=== PATIENT | female | born 1980 | race Caucasian/White ===

== ENCOUNTER 2022-02-06 14:56 | Outpatient (CLI) | payer OTHER, SELFPAY | END 2022-02-06 14:57 | disposition home or self-care (01) | LOC: LONREF 14:57 | PROVIDERS: Visit Provider Family Medicine | DX: R30.0 Dysuria (principal) | CPT/HCPCS: 87086 ==

== ENCOUNTER 2022-05-08 14:33 | Emergency (ER) | payer OTHER, SELFPAY ==
[2022-05-08 14:52] VITALS: BP 150/93; PULSE 82; RESP 16; TEMP 36.6; O2SAT 98; BMI 36.3
--- NOTE | 2022-05-08 15:36 | ED.CHESTPAIN ---
HPI - Chest Pain General Chief Complaint: Chest Pain Stated Complaint: Chest pain Time Seen by Provider: 05/08/22 14:49 History of Present Illness HPI narrative: This 41-year-old female comes in reporting brief intermittent chest discomfort in the right upper anterior chest since last night. She states the pain comes and lasts for few seconds then completely goes away. She does have history of fibromyalgia. She also reports anxiety symptoms. She denies having any nausea, vomiting, lightheadedness, shortness of breath, diaphoresis, or exercise intolerance. Related Data Home Medications Medication Instructions Recorded Confirmed gabapentin 300 mg capsule 300 mg PO TID 12/23/21 04/19/22 omeprazole 10 mg capsule,delayed 10 mg PO BID 12/23/21 04/19/22 release spironolactone 50 mg tablet 50 mg PO QDAY 12/23/21 04/19/22 Previous Rx's Medication Instructions Recorded tramadol 50 mg tablet See Rx Instructions PO Q6H PRN 03/18/22 pain #42 tabs hydroxyzine HCl 25 mg tablet See Rx Instructions .Route 03/25/22 .COMPLEX #60 ea cyclobenzaprine 10 mg tablet 10 mg PO TID PRN muscle spasm #10 04/19/22 tabs Allergies Allergy/AdvReac Type Severity Reaction Status Date / Time No Known Drug Allergies Allergy Verified 04/19/22 12:15 Review of Systems Status of ROS Reports: 10 or more systems reviewed and unremarkable except as noted in History and below Narrative Constitutional: No fevers, no weight gain or loss. Eyes: No discharge. No vision changes. HENT: No congestion, no sore throat, no ear pain. Cardiovascular: No palpitations. Chest: Right upper anterior chest discomfort that lasts just for a few seconds. Respiratory: No shortness of breath, no wheezes, no cough. Gastrointestinal: No abdominal pain, no vomiting, no diarrhea. Genitourinary: No dysuria, no hematuria. Musculoskeletal: Normal range of motion. Skin: No rashes, no pruritis. Neurological: No dizziness, weakness, sensory change, speech change. Endo/Heme/Allergies: No bruising or bleeding. No polydipsia. Pysch: no suicidality, no anxiety, no insomnia. All other systems reviewed and are negative. PFSH PFSH Surgical History Status post Status post tubal ligation Social History Smoking Status: Never smoker Exam Narrative Exam Narrative: Constitutional: Well-developed, well-nourished, no acute distress. HEENT: Normocephalic, atraumatic. Neck: Normal range of motion. Nontender. Supple. Heart: Regular. No murmurs. Normal rate. Intact distal pulses. Lungs: Clear to auscultation. No chest discomfort. No wheezes, rhonchi, or rales. Abdomen: Normal bowel sounds. Nontender. No rebound tenderness. Genitalia: Deferred. Back: No midline tenderness. Normal range of motion. Extremities: Normal range of motion. No injury. Skin: Intact. No rash. Warm. No erythema or pallor. Neurologic: No altered sensation. No weakness. Alert and oriented. Psychiatric: No suicidality. No anxiety or depression. No insomnia. Nursing notes and vitals signs are reviewed. Const Vital Signs, click to edit/add: Vital Signs - 24 hr 05/08/22 14:52 Temperature 97.9 F Pulse Rate [Right Pulse Oximeter] 82 Respiratory Rate 16 Blood Pressure [Right Upper Arm] 150/93 H Pulse Oximetry 98 Oxygen Delivery Method Room Air Course Vital Signs Vital signs: Initial Vital Signs Temperature 97.9 F 05/08/22 14:52 Temperature Source Temporal Artery Scan 05/08/22 14:52 Pulse Rate 82 05/08/22 14:52 Pulse Rhythm 05/08/22 14:52 Respiratory Rate 16 05/08/22 14:52 Blood Pressure 150/93 H 05/08/22 14:52 Blood Pressure Mean 112 05/08/22 14:52 Pulse Oximetry 98 05/08/22 14:52 Oxygen Delivery Method 05/08/22 14:52 Vital Signs Temperature 97.9 F 05/08/22 14:52 Pulse Rate 82 05/08/22 14:52 Respiratory Rate 16 05/08/22 14:52 Blood Pressure 150/93 H 05/08/22 14:52 Pulse Oximetry 98 05/08/22 14:52 Oxygen Delivery Method 05/08/22 14:52 Temperature 97.9 F 05/08/22 14:52 Pulse Rate 82 05/08/22 14:52 Respiratory Rate 16 05/08/22 14:52 Blood Pressure 150/93 H 05/08/22 14:52 Pulse Oximetry 98 05/08/22 14:52 Oxygen Delivery Method 05/08/22 14:52 MDM - Chest Pain MDM Narrative Medical decision making narrative: This patient comes in with concern about some very brief chest discomfort in the right upper chest that is recurrent. She states that lasts for a few seconds and then completely goes away. It is not related to exertion or any other symptoms. Her EKG shows normal sinus rhythm without any abnormality. Lab results also returned completely normal including a troponin at 0. This was reassuring to the patient. She is okay to be discharged home to continue current plans. Lab Data Labs: Lab Results 05/08/22 05/08/22 Range/Units 15:50 15:50 WBC 8.73 (4.50-11.00) K/uL RBC 4.89 (4.00-5.20) m/uL Hgb 13.8 (12.0-16.0) gm/dL Hct 42.3 (33.0-51.0) % MCV 87 (80-100) fL MCH 28 (26-34) pg MCHC 33 (32-36) gm/dL RDW Coeff of Shahram 12.6 (11.5-15.5) % Plt Count 352 (140-440) K/uL Neut % (Auto) 66.9 (42.0-72.0) % Lymph % (Auto) 25.9 (20-44) % [place] % (Auto) 5.2 (0.0-11.0) % Eos % (Auto) 1.5 (0.0-7.0) % Baso % (Auto) 0.3 (0.0-3.0) % Neut # (Auto) 5.84 (1.7-7.0) K/uL Lymph # (Auto) 2.26 (0.90-2.90) K/uL [place] # (Auto) 0.50 (0.00-0.90) K/UL Eos # (Auto) 0.13 (0.00-0.50) K/uL Baso # (Auto) 0.03 (0.00-0.30) K/uL Sodium 139 (135-149) mmol/L Potassium 4.3 (3.6-5.1) mmol/L Chloride 106 (96-114) mmol/L Carbon Dioxide 27 (20-32) mmol/L BUN 15 (5-24) mg/dL Creatinine 0.9 (0.5-1.5) mg/dL Estimated Creat Clear 77.79 Estimated GFR 83 ml/min Glucose 97 (60-115) mg/dL Calcium 9.5 (8.4-10.6) mg/dL ECG Data Attestation: I personally reviewed and interpreted this ECG as follows: Interpretation: Normal sinus rhythm. Rate is 89 beats per minute. There are no ST or T-wave abnormalities. Discharge Plan Discharge Clinical Impression: Atypical chest pain Patient Disposition: Home, Self-Care Condition: Stable Additional Instructions: Continue current plans. Use [id number] medicines as needed and directed. Follow up with MD or return if worsening. Prescriptions: No Action gabapentin 300 mg capsule 300 mg PO TID omeprazole 10 mg capsule,delayed release(DR/EC) 10 mg PO BID spironolactone 50 mg tablet 50 mg PO QDAY tramadol 50 mg tablet See Rx Instructions PO Q6H PRN (Reason: pain) Qty: 42 1RF Rx Instructions: 50-100 mg orally every 6 hours PRN; cyclobenzaprine 10 mg tablet 10 mg PO TID PRN (Reason: muscle spasm) Qty: 10 0RF hydroxyzine HCl 25 mg tablet See Rx Instructions .ROUTE .COMPLEX Qty: 60 3RF Dose Instruction: TAKE 1 TABLET (25 MG TOTAL) BY MOUTH 2 (TWO) TIMES A DAY NEEDED FOR ANXIETY. Rx Instructions: TAKE 1 TABLET (25 MG TOTAL) BY MOUTH 2 (TWO) TIMES A DAY NEEDED FOR ANXIETY. Follow Up/Referrals: Lakhwinder Lau MD [Primary Care Provider] - Stand Alone Forms: [facility] [facility] Info Instructions
[2022-05-08 15:51] VITALS: BP 142/74; PULSE 79; RESP 16; O2SAT 98
--- NOTE | 2022-05-08 16:03 | ED.NURSE ---
at bedside for U/S.
[2022-05-08 16:07] LABS: Basophils Absolute Auto 0.03 K/uL (0.00-0.30); Basophils Percent Auto 0.3 % (0.0-3.0); Eosinophils Absolute Auto 0.13 K/uL (0.00-0.50); Eosinophils Percent Auto 1.5 % (0.0-7.0); Hematocrit 42.3 % (33.0-51.0); Hemoglobin* 13.8 gm/dL (12.0-16.0); Immature Granulocytes Abs Auto 0.02 K/uL (0.00-0.30); Immature Granulocytes Pct Auto 0.2 %; Lymphocytes Absolute Auto 2.26 K/uL (0.90-2.90); Lymphocytes Percent Auto 25.9 % (20-44); Mean Corpuscular HGB Conc 33 gm/dL (32-36); Mean Corpuscular Hemoglobin 28 pg (26-34); Mean Corpuscular Volume 87 fL (80-100); Monocytes Percent Auto 5.2 % (0.0-11.0); Neutrophils Absolute Auto 5.84 K/uL (1.7-7.0); Neutrophils Percent Auto 66.9 % (42.0-72.0); Platelet Count* 352 K/uL (140-440); RDW Coefficient of Variation % 12.6 % (11.5-15.5); Red Blood Count 4.89 m/uL (4.00-5.20); White Blood Count* 8.73 K/uL (4.50-11.00)
[2022-05-08 16:16] LABS: Chloride* 106 mmol/L (96-114); Sodium* 139 mmol/L (135-149)
[2022-05-08 16:17] LABS: Potassium* 4.3 mmol/L (3.6-5.1); Slide Review Reflex No
[2022-05-08 16:19] LABS: Creatinine* 0.9 mg/dL (0.5-1.5); Est. Creatinine Clearance* 77.79; Estimated Glomerular Filt Rate 83 ml/min
[2022-05-08 16:20] LABS: Blood Urea Nitrogen* 15 mg/dL (5-24); Calcium* 9.5 mg/dL (8.4-10.6); Carbon Dioxide* 27 mmol/L (20-32); Glucose* 97 mg/dL (60-115)
[2022-05-08 16:38] VITALS: BP 142/74; PULSE 79; RESP 16; TEMP 36.6
== END 2022-05-08 16:36 | disposition home or self-care (01) ==
PROVIDERS: Emergency Provider Emergency Medicine Emergency Medical Services; PCP Family Medicine
DX: R07.89 Other chest pain (principal)
CPT/HCPCS: 36415; 80048; 84484; 85025; 93005; 99284

== ENCOUNTER 2022-08-20 12:36 | Outpatient (CLI) | payer OTHER, SELFPAY | END 2022-08-20 12:37 | disposition home or self-care (01) | LOC: NFLDREF 08-23 09:48 | PROVIDERS: PCP Family Medicine; Referring Provider Family Medicine; Visit Provider Physician Assistant | DX: R30.0 Dysuria (principal); R39.15 Urgency of urination | CPT/HCPCS: 87086 ==

== ENCOUNTER 2022-08-25 12:26 | Outpatient (CLI) | payer OTHER, SELFPAY | END 2022-08-25 12:27 | disposition home or self-care (01) | LOC: LKVREF 12:28 | PROVIDERS: PCP Family Medicine; Visit Provider Emergency Medicine | DX: R10.9 Unspecified abdominal pain (principal) | CPT/HCPCS: 86140 ==

== ENCOUNTER 2022-08-28 10:47 | Outpatient (CLI) | payer OTHER, SELFPAY ==
--- NOTE | 2022-08-28 11:00 | CRLHL7_ITS ---
For Patients: As a result of the Cures Act, medical imaging exams and procedure reports are released immediately into your electronic medical record. You may view this report before your referring provider. If you have questions, please contact your health care provider. INDICATION: Abdominal pain. TECHNIQUE: Right upper quadrant ultrasound. COMPARISON: Outside MRI abdomen report January 09, 2022 from [place], [place] and a CT chest from that same institution March 17, 2022 which included the upper abdomen. FINDINGS: Echogenic mass in the right hepatic lobe measuring 6.0 x 4.6 x 4.7 cm compatible with a cavernous hemangioma. Multiple hepatic lesions were reportedly identified on the outside MRI report consistent with benign hemangiomas. Those are not well seen on today`s ultrasound. No intrahepatic biliary ductal dilatation. Normal gallbladder without stones or sludge. The gallbladder wall measures 2 mm and the common bile duct 6 mm. The pancreas is unremarkable. Normal right kidney measuring 11.6 x 3.1 x 4.8 cm. The proximal abdominal aorta is normal at 2 cm. The proximal IVC is also normal. No upper abdominal ascites. IMPRESSION: 1. Right hepatic lobe cavernous hemangioma. 2. No gallstones or biliary dilatation. 3. No ultrasound evidence for pancreatitis. No upper abdominal ascites. Dictated by Duarte Bradley MD @ 08/28/2022 11:52:38 AM (Electronically Signed)
== END 2022-08-28 10:48 | disposition home or self-care (01) ==
LOC: US 10:47
PROVIDERS: PCP Family Medicine; Visit Provider Emergency Medicine
DX: R10.9 Unspecified abdominal pain (principal); D18.09 Hemangioma of other sites
CPT/HCPCS: 76705

== ENCOUNTER 2022-09-02 16:49 | Outpatient (CLI) | payer OTHER, SELFPAY | END 2022-09-02 16:50 | disposition home or self-care (01) | LOC: LKVREF 16:49 | PROVIDERS: PCP Family Medicine; Visit Provider Emergency Medicine | DX: K59.00 Constipation, unspecified (principal) | CPT/HCPCS: 84443 ==

== ENCOUNTER 2022-09-09 14:42 | Outpatient (CLI) | payer OTHER, SELFPAY ==
--- NOTE | 2022-09-09 15:00 | CRLHL7_ITS ---
For Patients: As a result of the Century Cures Act, medical imaging exams and procedure reports are released immediately into your electronic medical record. You may view this report before your referring provider. If you have questions, please contact your health care provider. CLINICAL HISTORY: Pain TECHNIQUE: 2D mcgee scale ultrasound. In addition color Doppler and spectral Doppler analysis was performed of the pelvis using a transvaginal approach. FINDINGS: The myometrium has a normal uniform echotexture. The uterus measures 9.2 x 4.3 x 6.0 cm. The endometrial lining measures 10 mm in thickness. The right ovary measures 2.8 x 1.9 x 2.6 cm in size and the left ovary measures 2.8 x 2.6 x 2.1 cm. The ovaries demonstrate normal arterial and venous blood flow on color Doppler and spectral Doppler analysis. There are no suspicious fluid collections within the cul-de-sac. IMPRESSION: Normal pelvic ultrasound. No evidence of torsion or adnexal mass. No excess pelvic free fluid. No uterine fibroid. Dictated by Paul Locke MD @ 09/09/2022 3:27:12 PM (Electronically Signed)
== END 2022-09-09 14:43 | disposition home or self-care (01) ==
LOC: US 14:42
PROVIDERS: PCP Family Medicine; Visit Provider Emergency Medicine
DX: R10.2 Pelvic and perineal pain (principal)
CPT/HCPCS: 76830; 76856; 93976

== ENCOUNTER 2022-09-11 08:09 | Outpatient (CLI) | payer OTHER, SELFPAY | END 2022-09-11 08:10 | disposition home or self-care (01) | LOC: OP CLINIC 08:10 | PROVIDERS: PCP Family Medicine; Visit Provider Internal Medicine | DX: Z12.11 Encounter for screening for malignant neoplasm of colon (principal); K63.5 Polyp of colon | CPT/HCPCS: 45380; 45385; 88305 ==

== ENCOUNTER 2022-11-30 08:21 | Emergency (ER) | payer OTHER, SELFPAY ==
[2022-11-30] VITALS (8 sets, daily range): BP systolic 119–154; BP diastolic 84–99; PULSE 81–98; RESP 22; TEMP 38.1; O2SAT 93–99; BMI 35.7
--- NOTE | 2022-11-30 08:34 | ED_ITS ---
HPI - General Adult General Time Seen by Provider: 08:34 Date Seen: 11/30/22 Chief complaint: Shortness of Breath/Dyspnea Stated complaint: Difficulty breathing/vomitting/chest pain Time Seen by Provider: 11/30/22 08:28 History of Present Illness HPI narrative: This is a 42-year-old female with a past medical history including fibromyalgia, polycystic ovarian syndrome, anxiety, liver hemangioma, hiatal hernia, previous tubal ligation, section. She presents to the ER today for left lower lateral rib pain, shortness of breath, headache, nausea and vomiting. She had been seen in August 2022 for abdominal pain. At that time she had negative CT scan, normal pelvic ultrasound, no clear diagnosis was reached. According to records she was seen in the clinic on 11/11 for abdominal pain. According to those notes they were suspicious that her pain could be possibly gastritis or GERD. She has a known history of hiatal hernia. She was on a PPI and was changed from omeprazole to Nexium at that visit. EGD was recommended but the patient was reluctant to proceed due to anxiety about the sedation. She was also treated for constipation with no come magnesia, Glycolax. It sounds like her abdominal pain has been steady over the past few weeks. She had a root canal done on 1 of her upper front teeth couple of weeks ago. She has been having pain in that area since last week. She saw her and the daughter stand they thought the site looked good. She then went to the urgent care last week and was put on Augmentin it with the thought that she might be having a sinus infection. It sounds like she was reasonably normal over the weekend although her teeth were hurting. She felt a little bit run down yesterday. She was awoken from sleep at around 4:00 a.m. in this morning with multiple symptoms including body aches, in particular pain in her left anterolateral lower rib cage, headache. She feels achy all over. She is not running a fever. She measured her temperature a couple of times to the home thermometer and maximum measured temperature was 97.5?. She feels chilled though. She has been nauseous but no vomiting. She had 1 loose, nonbloody, non black stool. She is not really having abdominal pain. Most of her pain is in her left ribs, her teeth and throughout her body. She is tearful and anxious. She was nauseous and had to have a bag with her in case she threw up in the car ride here. Related Data Home Medications Medication Instructions Recorded Confirmed spironolactone 50 mg tablet 50 mg PO QDAY 12/23/21 11/26/22 lorazepam 1 mg tablet mg PO 08/20/22 11/26/22 B[place] PO QDAY 11/11/22 11/26/22 Clinical Immunity PO 11/11/22 11/26/22 cetirizine 10 mg tablet 10 mg PO QDAY PRN 11/11/22 11/26/22 lactobacillus combination no.4 3 3,000 mmu cells PO QDAY 11/11/22 11/26/22 billion cell capsule (Probiotic) magnesium glycinate mg PO 11/11/22 11/26/22 psyllium husk 0.4 gram capsule 0.4 g PO QDAY 11/11/22 11/26/22 (Metamucil) turmeric root extract 500 mg 500 mg PO QDAY 11/11/22 11/26/22 capsule Previous Rx's Medication Instructions Recorded alprazolam 0.5 mg tablet 0.5 mg PO BID PRN anxiety #20 tabs 07/07/22 gabapentin 300 mg capsule 300 mg PO 3XD #90 ea 07/30/22 hydroxyzine HCl 25 mg tablet See Rx Instructions .Route 10/28/22 .COMPLEX #60 ea amoxicillin 875 mg-potassium 1 tab PO BID 10 days #20 tabs 11/26/22 clavulanate 125 mg tablet hydrocodone 5 mg-acetaminophen 325 1 - 2 tab PO Q6H PRN pain #10 tabs 11/30/22 mg tablet Allergies Allergy/AdvReac Type Severity Reaction Status Date / Time No Known Drug Allergies Allergy Verified 11/26/22 13:24 PFSH PFSH Surgical History Status post tubal ligation ?Z98.51 - Tubal ligation status (ICD-10) Status post ?Z98.891 - History of uterine scar from previous surgery (ICD-10) Family History Sister Gallbladder disease Social History Smoking Status: Never smoker How often do you have a drink containing alcohol: never AUDIT-C Alcohol total score: 0 Non-prescribed substance use: denies use Exam Narrative: Exam Narrative: Constitutional: Appears well-developed and well-nourished. Alert. Tearful anxious. Hyperventilating. Whimpering due to pain. HENT: Head: Atraumatic. Nose: Nose normal. Mouth/Throat: Oral mucosa is clear and moist. no trismus. Pharynx normal. Tonsils symmetric. No tonsillar enlargement, erythema, or exudate. No obvious swelling of her upper teeth. No clear signs of dental infection. Eyes: Conjunctivae normal. EOM normal. Pupils equal, round, and reactive to light. No scleral icterus. Neck: Normal range of motion. Neck supple. No tracheal deviation present. No JVD Cardiovascular: Normal rate, regular rhythm. No gallop. No friction rub. No murmur heard. Symmetric radial artery pulses Pulmonary/Chest: Effort normal. No stridor. No respiratory distress. No wheezes. No rales. No rhonchi . No rib tenderness. Abdominal: Soft. Bowel sounds normal. No distension. No mass. Minimal epigastric tenderness. No left upper quadrant or left CVA tenderness. No right upper quadrant tenderness No rebound. No guarding. Musculoskeletal: RUE: Normal range of motion. No tenderness. No deformity LUE: Normal range of motion. No tenderness. No deformity RLE: Normal range of motion. No edema. No tenderness. No deformity LLE: Normal range of motion. No edema. No tenderness. No deformity Lymph: No cervical adenopathy. Neurological: Alert and oriented to person, place, and time. Normal strength. CN II-VII intact. No sensory deficit. GCS eye subscore is 4. GCS verbal subscore is 5. GCS motor subscore is 6. Normal coordination Skin: Skin is warm and dry. No rash noted. No pallor. Normal capillary refill. Psychiatric: Normal mood. Tearful and anxious. Appears uncomfortable. Whimpering due to pain. Const: Vital Signs, click to edit/add: Vital Signs - 24 hr 11/30/22 08:33 11/30/22 09:53 11/30/22 10:00 Temperature 100.5 F H Pulse Rate 81 95 Pulse Rate [Pulse Oximeter] 98 Respiratory Rate 22 Blood Pressure Blood Pressure [Ri ght Upper Arm] 154/99 H Pulse Oximetry 98 93 98 Oxygen Delivery Me thod Room Air Nasal Cannula Oxygen Flow Rate 2 11/30/22 10:00 11/30/22 10:01 11/30/22 10:02 Temperature Pulse Rate 96 Pulse Rate [Pulse Oximeter] Respiratory Rate Blood Pressure 119/93 H Blood Pressure [Ri ght Upper Arm] Pulse Oximetry 97 98 Oxygen Delivery Me thod Nasal Cannula Nasal Cannula Oxygen Flow Rate 2 2 11/30/22 10:03 11/30/22 10:15 11/30/22 10:30 Temperature Pulse Rate 95 92 91 Pulse Rate [Pulse Oximeter] Respiratory Rate Blood Pressure Blood Pressure [Ri ght Upper Arm] Pulse Oximetry 98 99 99 Oxygen Delivery Me thod Oxygen Flow Rate 11/30/22 10:32 Temperature Pulse Rate 96 Pulse Rate [Pulse Oximeter] Respiratory Rate Blood Pressure 128/84 Blood Pressure [Ri ght Upper Arm] Pulse Oximetry 98 Oxygen Delivery Me thod Oxygen Flow Rate Course Vital Signs Vital signs: Initial Vital Signs Temperature 100.5 F H 11/30/22 08:33 Temperature Source Temporal Artery Scan 11/30/22 08:33 Pulse Rate 98 11/30/22 08:33 Respiratory Rate 22 11/30/22 08:33 Blood Pressure 154/99 H 11/30/22 08:33 Blood Pressure Mean 117 H 11/30/22 08:33 Pulse Oximetry 98 11/30/22 08:33 Oxygen Delivery Method Room Air 11/30/22 08:33 Vital Signs Temperature 100.5 F H 11/30/22 08:33 Pulse Rate 98 11/30/22 08:33 Respiratory Rate 22 11/30/22 08:33 Blood Pressure 154/99 H 11/30/22 08:33 Pulse Oximetry 98 11/30/22 08:33 Oxygen Delivery Method Room Air 11/30/22 08:33 Temperature 100.5 F H 11/30/22 08:33 Pulse Rate 96 11/30/22 10:32 Respiratory Rate 22 11/30/22 08:33 Blood Pressure 128/84 11/30/22 10:32 Pulse Oximetry 98 11/30/22 10:32 Oxygen Delivery Method Nasal Cannula 11/30/22 10:02 Oxygen Flow Rate 2 11/30/22 10:02 Medical Decision Making MDM Narrative Medical decision making narrative: 42-year-old female presents to the ER today with a constellation of symptoms. 1. She underwent a root canal last week has been having facial pain involving her upper jaw since then. She has been on a course of Augmentin for possible sinusitis and has already seen her dentist who says there is no sign of any dental infection or complication. She has facial pain and associated headache today. Differential for her headache would include migraine, tension headache, subarachnoid, intracranial hemorrhage, sinusitis facial abscess or other infective complication of her dental procedure, among others. CT scan of her head is negative for intracranial bleed and CT scan of her facial bones does show evidence for mild sinusitis. She does not have any high fever or neck stiffness to suggest meningitis or encephalitis. At this point I feel that the risk/discomfort of lumbar puncture would outweigh the benefit. CT scan does show evidence for sinusitis. Would recommend that she continue on the Augmentin for now. We also discussed that many cases sinusitis are viral in nature and probably will not respond antibiotics. However since she is already on therapy, we cannot rule out and bacterial infection so would continue that medication. She has been trying to manage her headache with [id number] meds. They were unsuccessful today. We discussed risks of stronger pain killers. Will give a short prescription for 10 [place] that she can use p.r.n.. She understands opiate and sedation precautions. 2. She complained of shortness of breath and pleuritic-type of left lower rib pain beginning about 4:00 a.m. this morning. Differential is broad. EKG and troponin normal. Considered possible PE causing the symptoms. Script she is overall low risk but screening D-dimer is abnormal. After discussion of radiation risk we went ahead with CT PA. This is fortunately negative for PE. CT scan also negative for pneumonia, pneumothorax, pleural effusion, rib fracture, or other clear cause for her rib pain. No evidence for shingles. We no bruising or other signs of chest wall trauma. COVID negative. She does have a history of hiatal hernia and GERD. This pain could be related to an episode of esophagitis or reflux. Discussed with the patient that these are not seen but are typically not visible by CT. She will need EGD for further evaluation. 3. Incidental note of a liver lesion and possible left ventricular dilation is noted on the CT. That liver lesion was previously known to the patient. Suspect it is probably a hemangioma. She will follow-up with her regular doctor to arrange comparison of CT images today from prior. If this is a stable lesion no further workup is needed. If it is changing, she may need recommended liver MRI. 4. Consider possible renal cause of her left lower rib pain. Initial urinalysis shows evidence for hematuria. No evidence for infection or pyelonephritis. Discussed the hematuria with the patient. Turns out she is currently menstruating so suspect this is likely contaminated from menstrual cycle. Would hold off on CT scan abdomen pelvis due to desire to minimize radiation. 5. She does have leukocytosis with neutrophil predominance. This was suggest possible bacterial infection. Will continue on Augmentin for his sinus infection. Lab Data Labs: Lab Results 11/30/22 11/30/22 11/30/22 Range/Units 08:37 09:45 Unknown WBC 17.78 H (4.50-11.00) K/uL RBC 5.35 H (4.00-5.20) m/uL Hgb 14.7 (12.0-16.0) gm/dL Hct 44.9 (33.0-51.0) % MCV 84 (80-100) fL MCH 28 (26-34) pg MCHC 33 (32-36) gm/dL RDW Coeff of [place]ram 13.1 (11.5-15.5) % Plt Count 291 (140-440) K/uL Neut % (Auto) 91.7 H (42.0-72.0) % Lymph % (Auto) 4.9 L (20-44) % [place] % (Auto) 2.9 (0.0-11.0) % Eos % (Auto) 0.1 (0.0-7.0) % Baso % (Auto) 0.1 (0.0-3.0) % Neut # (Auto) 16.30 H (1.7-7.0) K/uL Lymph # (Auto) 0.90 (0.90-2.90) K/uL [place] # (Auto) 0.50 (0.00-0.90) K/UL Eos # (Auto) 0.00 (0.00-0.50) K/uL Baso # (Auto) 0.00 (0.00-0.30) K/uL Abs Immat Gran (auto) 0.10 (0.00-0.30) K/uL Imm/Tot Granulo (auto) 0.3 % D-Dimer Quant (PE/DVT) 1.01 H (0.00-0.50) ug/ml Sodium 140 (135-149) mmol/L Potassium 3.7 (3.6-5.1) mmol/L Chloride 105 (96-114) mmol/L Carbon Dioxide 25 (20-32) mmol/L Anion Gap 10 (7-15) mEq/L BUN 8 (5-24) mg/dL Creatinine 0.8 (0.5-1.5) mg/dL Estimated Creat Clear 86.63 Estimated GFR 95 ml/min Glucose 89 (60-115) mg/dL Calcium 10.2 (8.4-10.6) mg/dL Total Bilirubin 0.7 (0.1-1.5) mg/dL AST 22 (12-35) U/L ALT 18 (4-35) U/L Alkaline Phosphatase 76 (40-150) U/L Troponin I < 0.01 L (0.01-0.04) ng/mL Total Protein 7.9 (6.0-8.3) g/dL Albumin 4.7 (3.3-5.0) g/dL Lipase 62 (23-300) U/L Urine Color Yellow (Yellow) Urine Appearance Clear (Clear) Urine pH 8.5 (5.0-8.5) Ur Specific [place] 1.020 (1.000-1.030) Urine Protein Negative (Negative) Urine Glucose (UA) Negative (Negative) Urine Ketones Negative (Negative) Urine Blood 2+ A (Negative) Urine Nitrite Negative (Negative) Urine Bilirubin Negative (Negative) Urine Urobilinogen 0.2 (0.2-1.0) Ur Leukocyte Esterase Negative (Negative) Urine RBC 25-50 A (0-2) Urine WBC 0-2 (0-5) Ur Squamous Epith Cells Few (None-Few) Urine Bacteria None (None) SARS-CoV-2 (PCR) Negative SARS-CoV-2 (Negative) Influenza Type A (PCR) Negative PCR FLU A (Negative) Influenza Type B (PCR) Negative PCR FLU B (Negative) RSV (PCR) Negative PCR RSV (Negative) Imaging Data CT scan - head: Attestation: I have reviewed the pertinent imaging results. Radiologist's impression: IMPRESSION: Unremarkable noncontrast head CT. CT facial bones: Radiologist's impression: FINDINGS: The facial bones are intact. No acute fracture or dislocation. No organized hematoma or concerning inflammatory soft tissue stranding. Root canals teeth 7 and 8. Mild paranasal sinus mucosal thickening. Rightward nasal septal deviation. The mastoid air cells are clear. The globes are symmetric. No retrobulbar stranding or hemorrhage. IMPRESSION: 1. No organized hematoma or concerning inflammatory soft tissue stranding. 2. The facial bones are intact. No acute fracture or dislocation. CT scan - chest: Radiologist's impression: IMPRESSION: 1. No evidence of pulmonary embolus. 2. Mild left ventricular dilatation. 3. Indeterminate hypodense liver mass measuring 5.1 centimeters. Considering its size, dedicated outpatient liver MRI with and without gadolinium recommended for further characterization. ECG Data Attestation: I personally reviewed and interpreted this ECG as follows: Interpretation: Normal sinus rhythm rate 90 WI 134 QRS axis normal axis. No pathologic Q-waves. ST segment/T wave: No ST segment elevation or depression. Nonspecific T-wave flattening/inversions in V3, V4, V5, V6, 3, AVF, lead II QTc: 403 Discharge Plan Discharge Clinical Impression: Lesion of liver, Hematuria, Sinusitis, Chest pain Patient Disposition: Home, Self-Care Condition: Stable Instructions: Chest Pain (DC), Rhinosinusitis (DC) Additional Instructions: The CT scan of her head and face shows that you do have mild inflammation of the lining of your sinuses-sinusitis. It is not clear if this is due to a viral infection or bacterial. Please continue on her antibiotic for now. This CT scan of your lungs and chest does not show any bad infection such as pneumonia. No blood clots in her lungs. The CT scan does show a spot in your liver. Based on the CT scan alone, we cannot tell you for sure what this spot is. It could be cancer. It could also be a benign spot called a hemangioma. The radiologist recommends that you follow-up for an MRI of your liver. Your urine sample does not show any sign of infection but does show some blood in urine. Please recheck a urine sample with your doctor within 1-2 weeks. Prescriptions: New hydrocodone-acetaminophen 5-325 mg tablet 1 - 2 tab PO Q6H PRN (Reason: pain) Qty: 10 0RF No Action psyllium husk [Metamucil] 0.4 gram capsule 0.4 g PO QDAY magnesium glycinate 100 mg magnesium capsule PO cetirizine 10 mg tablet 10 mg PO QDAY PRN B[place] PO QDAY Clinical Immunity PO Probiotic 3 billion cell capsule 3,000 mmu cells PO QDAY Rx Instructions: administer with a meal turmeric root extract 500 mg capsule 500 mg PO QDAY amoxicillin-pot clavulanate 875-125 mg tablet 1 tab PO BID 10 Days Qty: 20 0RF spironolactone 50 mg tablet 50 mg PO QDAY alprazolam 0.5 mg tablet 0.5 mg PO BID PRN (Reason: anxiety) Qty: 20 0RF lorazepam 1 mg tablet PO gabapentin 300 mg capsule 300 mg PO 3XD Qty: 90 5RF hydroxyzine HCl 25 mg tablet See Rx Instructions .ROUTE .COMPLEX Qty: 60 3RF Dose Instruction: TAKE 1 TABLET (25 MG TOTAL) BY MOUTH 2 (TWO) TIMES A DAY NEEDED FOR ANXIETY. Rx Instructions: TAKE 1 TABLET (25 MG TOTAL) BY MOUTH 2 (TWO) TIMES A DAY NEEDED FOR ANXIETY. Follow Up/Referrals: Lakhwinder Lau MD [Primary Care Provider] - Stand Alone Forms: [employer] Info Instructions
[2022-11-30 09:24] LABS: PCR FLU A Negative PCR FLU A (Negative); PCR FLU B Negative PCR FLU B (Negative); PCR RSV Negative PCR RSV (Negative)
[2022-11-30 09:26] LABS: SARS PCR* Negative SARS-CoV-2 (Negative)
[2022-11-30] MEDS: HYDROmorphone 0.5 mg/0.5 ml inj IVP ×2 (09:45→10:15)
[2022-11-30] MEDS: ONDANSETRON 2 MG/ML inj 4 MG IVP (09:45)
[2022-11-30] MEDS: PANTOPRAZOLE SODIUM 40 MG INJ IVP (09:45)
[2022-11-30 09:53] LABS: Basophils Percent Auto 0.1 % (0.0-3.0); Eosinophils Percent Auto 0.1 % (0.0-7.0); Hematocrit 44.9 % (33.0-51.0); Hemoglobin* 14.7 gm/dL (12.0-16.0); Immature Granulocytes Pct Auto 0.3 %; Lymphocytes Percent Auto 4.9 % (20-44); Mean Corpuscular HGB Conc 33 gm/dL (32-36); Mean Corpuscular Hemoglobin 28 pg (26-34); Mean Corpuscular Volume 84 fL (80-100); Monocytes Percent Auto 2.9 % (0.0-11.0); Neutrophils Percent Auto 91.7 % (42.0-72.0); Platelet Count* 291 K/uL (140-440); RDW Coefficient of Variation % 13.1 % (11.5-15.5); Red Blood Count 5.35 m/uL (4.00-5.20); White Blood Count* 17.78 K/uL (4.50-11.00)
[2022-11-30 10:02] LABS: Slide Review Reflex No
[2022-11-30 10:12] LABS: Albumin* 4.7 g/dL (3.3-5.0); Chloride* 105 mmol/L (96-114); Potassium* 3.7 mmol/L (3.6-5.1); Sodium* 140 mmol/L (135-149)
[2022-11-30 10:14] LABS: Anion Gap 10 mEq/L (7-15); Bilirubin Total* 0.7 mg/dL (0.1-1.5); Carbon Dioxide* 25 mmol/L (20-32); Creatinine* 0.8 mg/dL (0.5-1.5); D Dimer Quantitative* 1.01 ug/ml (0.00-0.50); Est. Creatinine Clearance* 86.63; Estimated Glomerular Filt Rate 95 ml/min
[2022-11-30 10:15] LABS: Alanine Aminotransferase* 18 U/L (4-35); Alkaline Phosphatase* 76 U/L (40-150); Aspartate Amino Transferase* 22 U/L (12-35); Blood Urea Nitrogen* 8 mg/dL (5-24); Calcium* 10.2 mg/dL (8.4-10.6); Lipase* 62 U/L (23-300); Total Protein* 7.9 g/dL (6.0-8.3)
[2022-11-30 10:35] LABS: Glucose* 89 mg/dL (60-115)
[2022-11-30 11:00] LABS: Troponin I* < 0.01 ng/mL (0.01-0.04)
--- NOTE | 2022-11-30 12:08 | CRLHL7_ITS ---
For Patients: As a result of the Century Cures Act, medical imaging exams and procedure reports are released immediately into your electronic medical record. You may view this report before your referring provider. If you have questions, please contact your health care provider. INDICATION: Headache. Recent dental surgery. TECHNIQUE: Noncontrast CT images acquired through the facial bones. COMPARISON: None. FINDINGS: The facial bones are intact. No acute fracture or dislocation. No organized hematoma or concerning inflammatory soft tissue stranding. Root canals teeth 7 and 8. Mild paranasal sinus mucosal thickening. Rightward nasal septal deviation. The mastoid air cells are clear. The globes are symmetric. No retrobulbar stranding or hemorrhage. IMPRESSION: 1. No organized hematoma or concerning inflammatory soft tissue stranding. 2. The facial bones are intact. No acute fracture or dislocation. Please note that all CT scans at this facility use dose modulation, iterative reconstruction, and/or weight-based dosing when appropriate to reduce radiation dose to as low as reasonably achievable. Dictated by Larry Dorman MD @ 11/30/2022 1:56:34 PM (Electronically Signed)
--- NOTE | 2022-11-30 12:17 | CRLHL7_ITS ---
For Patients: As a result of the Century Cures Act, medical imaging exams and procedure reports are released immediately into your electronic medical record. You may view this report before your referring provider. If you have questions, please contact your health care provider. INDICATION: Headache, recent dental surgery. TECHNIQUE: CT head without contrast. COMPARISON: None. FINDINGS: CSF spaces: Within normal limits for age. Brain parenchyma: The mcgee-white differentiation is normal. No sign of mass, hemorrhage, or midline shift. Skull base and calvarium: The visualized paranasal sinuses and mastoid air cells demonstrate no acute or significant findings. The visualized orbits are grossly unremarkable. No skull fractures. IMPRESSION: Unremarkable noncontrast head CT. Please note that all CT scans at this facility use dose modulation, iterative reconstruction, and/or weight-based dosing when appropriate to reduce radiation dose to as low as reasonably achievable. Dictated by Richard Reddy MD @ 11/30/2022 1:41:54 PM (Electronically Signed)
--- NOTE | 2022-11-30 12:17 | CRLHL7_ITS ---
For Patients: As a result of the Century Cures Act, medical imaging exams and procedure reports are released immediately into your electronic medical record. You may view this report before your referring provider. If you have questions, please contact your health care provider. INDICATION: Shortness of breath, headache and elevated D-dimer. Recent dental surgery. TECHNIQUE: CT chest PE was acquired with 95 cc Isovue 370 intravenous contrast. COMPARISON: None. FINDINGS: Heart and vasculature: Contrast opacification of the pulmonary arterial tree is adequate. No sign of pulmonary embolism. Mild left ventricular dilatation.Mild respiratory motion on the exam Lungs and pleural: No evidence of pneumothorax. Minimal dependent atelectasis. Lymph nodes/mediastinum: No mediastinal, hilar, or axillary adenopathy. Chest wall: No masses. Upper abdomen: Hypodense mass within the right lobe of the liver measuring up to 5.1 centimeters, incompletely characterized (series 4, image 153). Bones: Unremarkable for age. IMPRESSION: 1. No evidence of pulmonary embolus. 2. Mild left ventricular dilatation. 3. Indeterminate hypodense liver mass measuring 5.1 centimeters. Considering its size, dedicated outpatient liver MRI with and without gadolinium recommended for further characterization. Please note that all CT scans at this facility use dose modulation, iterative reconstruction, and/or weight-based dosing when appropriate to reduce radiation dose to as low as reasonably achievable. Dictated by Richard Reddy MD @ 11/30/2022 3:03:16 PM (Electronically Signed)
[2022-11-30 12:35] LABS: Appearance Urine Clear (Clear); Bilirubin Urine Negative (Negative); Blood Urine 2+ (Negative); Color Urine Yellow (Yellow); Glucose Urine Negative (Negative); Ketones Urine Negative (Negative); Leukocyte Esterase Urine Negative (Negative); Nitrite Urine Negative (Negative); Protein Urine Negative (Negative); Urobilinogen Urine 0.2 (0.2-1.0); pH Urine 8.5 (5.0-8.5)
[2022-11-30 12:54] LABS: RBC Urine 25-50 (0-2); Squamous Epithelial Cell Urine Few (None-Few); WBC Urine 0-2 (0-5)
== END 2022-11-30 15:42 | disposition home or self-care (01) ==
PROVIDERS: Emergency Provider Emergency Medicine; PCP Family Medicine
DX: R07.9 Chest pain, unspecified (principal); J32.9 Chronic sinusitis, unspecified; R31.9 Hematuria, unspecified; K76.89 Other specified diseases of liver
CPT/HCPCS: 36415; 70450; 70486; 71275; 80053; 81001; 83690; 84484; 85025; 85379; 87631; 93005; 94761; 96374; 96375; 99283; 99284; 99285; C9113; J1170; J2405; Q9967

== ENCOUNTER 2023-04-05 19:14 | Outpatient (CLI) | payer OTHER, SELFPAY ==
--- OUTSIDE RECORDS SUMMARY | 2023-04-06 19:21 | XMS_ITS | Data Portability ---
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 Total time spent was ___30 minutes. [email or web address] Not available 01/10/2020 12:20:33 02/06/2020 02/06/2020 hx of prev csect and wants redo amies Not available 02/06/2020 21:25:07 10/02/2020 10/02/2020 I spent a total of 20 minutes providing care for this patient including: preparing to see the patient, obtaining a medical history, completing a medically appropriate physical exam, completing documentation of visit information and plans in the EMR, counseling the patient and/or caregiver regarding her diagnosis, treatment options and follow up plans, as well as any necessary communication of subsequent test results to the patient, , , Not available 10/04/2020 09:31:41 Plan of Treatment Reminders Order Date Submit Date Provider Last Modified By Organization Details Last Modified Time Details Appointments G_OFFICE VISIT 2023 11:30A M MAURISIO FRAIRE PA-C Not available Not available Not available Lab urinalysi s, dipstick, auto 01/25/ 2024 01/26/2 024 [email or web address] Sn816_pvpvjlj rtners_lilyda le, [address] [facility], [address], [place], [address], 04/02/2023 13:55:52 bacterial vaginosis + vaginitis panel, vaginal 2023 024 [email or web address] 5 Li750_ppnouih rtners_yanethyda le, [address] [place] [address], [address], [place], [address], 04/02/2023 17:01:44 urinalysi s, dipstick, auto 2022 023 [email or web address] 5 Ka654_pflrgsy rtners_lilyda le, [address] [place] [address], [address], [place], [address], 02/12/2023 13:45:18 bacterial vaginosis + vaginitis panel, vaginal 2022 023 [place] Ms365_wajvmnw rtners_lilyda le, [address] [facility], [address], [place], [address], 02/12/2023 14:41:00 lipid panel, serum 2022 023 [facility], [address] [place] [address], [address], [place], [address], 02/01/2023 15:49:12 bacterial vaginosis + vaginitis panel, vaginal 2022 023 [email or web address] 5 Ok504_aphmpah rtners_yanethyda le, [address] [place] [address], [address], [place], [address], 02/01/2023 13:01:20 hemoglobi n A1c, QN, blood 2022 023 [facility], [address] [place] [address], [address], [place], [address], 02/01/2023 15:49:11 CBC 2022 023 [facility], [address] [facility], [address], [place], [address], 02/01/2023 15:49:09 Pap test, slide(s), cervical 2022 023 [facility], [address] [facility], [address], [place], [address], 02/04/2023 16:08:46 urinalysi s, dipstick, auto 2022 023 [email or web address] 5 Kx700_smlvgna rtners_lilyda le, [address] [place] [address], [address], [place], [address], 12/31/2022 13:59:18 culture, urine 2022 023 [facility], [address] [facility], [address], [place], [address], 01/02/2023 07:44:04 bacterial vaginosis + vaginitis panel, vaginal 2022 023 [place] Gz731_oxbvcgw rtners_lilyda le, [address] [place] [address], [address], [place], [address], 12/31/2022 14:58:13 urinalysi s, dipstick 2022 023 [email or web address] 5 Fy292_fmahszc rtners_lilyda le, [address] [place] [address], [address], [place], [address], 08/21/2022 14:59:57 bacterial vaginosis + vaginitis panel, vaginal 2022 023 [email or web address] 5 Xe423_mrakbbp rtners_lilyda le, [address] [facility], [address], [place], [address], 08/21/2022 14:59:57 culture, urine 2022 023 [facility], [address], [address], [place], [address], 08/23/2022 14:11:26 urinalysi s, dipstick 2021 022 [email or web address] 5 Ij100_nclejyy rtners_lilyda le, [address] [facility], [address], [place], [address], 02/09/2022 12:58:58 culture, urine 2021 022 [facility], [address] [facility], [address], [place], [address], 02/11/2022 08:24:47 bacterial vaginosis + vaginitis panel, vaginal 2021 022 [email or web address] 5 Vz528_ymswprf rtners_ziona le, [address] [facility], [address], [place], [address], 02/09/2022 12:58:58 lipid panel, serum 2021 022 [facility], [address] [facility], [address], [place], [address], 01/26/2022 21:46:43 hemoglobi n A1c, QN, blood 2021 022 [facility], [address] , [address], [place], [address], 01/26/2022 21:54:40 CBC 2021 022 [facility], [address] [facility], [address], [place], [address], 01/29/2022 15:06:31 Pap test, slide(s), cervical 2021 022 [facility], [address] [facility], [address], [place], [address], 02/03/2022 08:45:17 lipid panel, blood 2020 021 [facility], [address] [place], [address], 01/22/2021 17:30:00 thyroid cascade, serum 2020 021 [facility], [address] [place], [address], 01/22/2021 17:30:01 hemoglobi n A1c + average glucose, QN, blood 2020 021 [facility], [address] [place], [address], 01/22/2021 17:30:01 unlisted lab - glucose, fasting 2020 021 [facility], [address] [place], [address], 01/22/2021 17:30:00 pap, LB 2020 021 [facility], [address] [place], [address], 02/18/2021 10:31:05 HPV DNA, high-risk 2020 021 [facility], [address] [place], [address], 02/18/2021 10:31:04 CBC w/ diff 2020 021 [facility], [address] [place], [address], 01/22/2021 17:29:59 urinalysi s, dipstick 2020 021 Aq524_mbfxiyi rtners_[place]bu [place], [address], [address], [address], 10/15/2020 19:01:15 culture, urine 2020 021 [facility], [address] [place], [address], 10/17/2020 09:20:45 urinalysi s, dipstick 2020 021 [facility] Fy795_aktybqv rtners_hermitagebu ry, [facility] [employer] [facility], [address], [address], 08/23/2020 09:53:58 culture, urine 2020 021 [facility], [address] [place], [address], 08/23/2020 14:18:10 urinalysi s, dipstick 2020 021 [facility] Yz566_nujkspp rtners_[place]bu ry, [facility] [employer] [facility], [address], [place], [address], 08/08/2020 10:49:30 streptoco ccus group B DNA 2020 021 [facility], [address] [place], [address], 07/25/2020 13:15:13 glucose tolerance test, 1-hour 2020 021 rverby Dr708_rtjqo_n ashley, [address], [address], [place], [address], 05/30/2020 14:09:14 hemoglobi n (Hb), blood 2020 021 rverby Io449_eykvl_i ashley, [address], [address], [place], [address], 05/30/2020 14:09:14 syphilis Ab, igg 2020 021 [facility], [address] [place], [address], 05/30/2020 23:47:42 blood group antibody screen, serum or plasma 2020 021 [facility], [address] [place], [address], 05/30/2020 23:47:42 CT + NG + TV, DNA, urine/swa b 2019 020 [facility], [address] [place], [address], 02/14/2020 11:16:07 pap, LB + reflex HR HPV 2019 020 [facility], [address] [place], [address], 02/14/2020 11:16:08 aneuploid y risk and X & Y analysis, chromosom e specific circulati ng cell free (CCF) DNA, maternal serum 2019 020 aturnblom Not available 02/06/2020 14:09:24 Referral None recorded. Procedures venipunct ure routine (PROC) 2021 022 [email or web address] Not available 01/26/2022 11:12:23 Surgeries None recorded. Imaging US, breast, unilatera l - Dull, achy pain inner side of left breast between 8:00-10:0 0 2022 023 [email or web address] [facility], [address], [address], [place], [address], 07/27/2022 17:33:30 MAMMO, diagnosti c, bilateral - Dull, achy pain inner side of left breast between 8:00-10:0 0 2022 023 BELTRAN [facility], [address], [address], [place], [address], 07/01/2022 14:50:57 US, obstetric , biophysic al profile 2020 021 [place] Vk112_urcqwhy rtners_hermitagebu ry, [address] [employer] [facility], [address] [place] [address], [address], 08/08/2020 09:40:34 US, obstetric , biophysic al profile 2020 021 [place] Mj397_cwncmer rtners_hermitagebu ry, [address] [employer] [facility], [address], [place], [address], 07/30/2020 10:39:05 US, doppler, umbilical artery velocimet ry 2020 021 Not available 07/30/2020 10:35:49 US, obstetric , biophysic al profile 2020 021 [facility] Ll191_mevatbh rtners_[place] [place], [address] [employer] [facility], [address], [address], 07/23/2020 15:40:02 US, obstetric , follow-up 2020 021 Not available 07/23/2020 13:48:23 US, obstetric , biophysic al profile 2020 021 [place] Uy453_mvlfwih rtners_[place]bu ry, [address] [employer] [facility], [address], [place], [address], 06/26/2020 13:57:57 US, obstetric , follow-up 2020 021 tbusian Gr429_uzodgbf rtners_hermitagebu ry, [address] [facility], [address], [place], [address], 06/26/2020 13:57:29 US, obstetric , follow-up 2020 021 [email or web address] Not available 05/30/2020 10:34:14 US, obstetric , transvagi nal 2020 021 [email or web address] Gv098_ewdqz_m [place], [address] [employer] [facility], [address], [place], [address], 07/29/2020 17:14:02 US, obstetric , transvagi nal 2020 021 amies [employer] Super[employer] [place], [address] [place] [address], [address], [place], [address], 05/19/2020 08:41:58 US, obstetric , maternal evaluatio n + anatomy 2020 021 amies [employer] [place], [address], [place], [address], 04/03/2020 12:50:58 US, breast, bilateral - Left breast upper quadrant. Please call pt to schedule appt. 2020 021 BELTRAN Not available 03/29/2020 17:43:28 US, obstetric , 1st trimester 2019 020 amies [employer] [place], [address], [place], [address], 01/10/2020 18:42:52 Medication Orders Diflucan 150 mg tablet 2023 024 [facility], [address] [place] [address], [place], [address], 04/02/2023 17:14:54 metronida zole 0.75 % (37.5 mg/5 gram) vaginal gel 2023 024 [facility], [address] [place] [address], [place], [address], 04/02/2023 17:14:55 clindamyc in HCl 300 mg capsule 2022 023 [facility], [address] [place] [address], [place], [address], 04/02/2023 13:07:00 Metrogel Vaginal 0.75 % (37.5 mg/5 gram) 2022 023 [facility], [address] [place] [address], [place], [address], 04/02/2023 13:07:10 spironola ctone 50 mg tablet 2022 023 [facility], [address] [place] [address], [place], [address], 02/01/2023 10:56:44 Metrogel Vaginal 0.75 % (37.5 mg/5 gram) 2022 023 [facility], [address] [place] [address], [place], [address], 04/02/2023 13:10:07 terconazo le 0.4 % vaginal cream 2022 023 [facility], [address] [place] [address], [place], [address], 02/01/2023 09:58:17 Bactrim DS 800 mg-160 mg tablet 2022 023 [facility], [address] [place] [address], [address], 12/31/2022 12:47:43 Diflucan 150 mg tablet 2022 023 [facility], [address] [place] [address], [address], 12/31/2022 12:48:55 cephalexi n 250 mg capsule [address] [facility], [address] [place] [address], [address], 01/26/2022 10:02:56 azithromy ankit 250 mg tablet [address] [facility], [address] [place] [address], [address], 01/26/2022 10:02:46 rho(D) immune globulin 1,500 unit (300 mcg) intramusc ular syringe 2020 021 [facility], [address] [place], [address], 08/29/2020 17:06:27 Zithromax Z-Tiago 250 mg tablet [address] [facility], [address] [place], [address], 01/26/2022 10:02:46 Patient TargetsNo targets recorded. Patient Instructions Encounter Date Encounter Id Patient Instructions Last Modified By Organization Details Last Modified Time 04/02/2023 [id number] Sent BDAffirm. Notified pt that swab is positive for BV and sent scripts. RTC after completing Cipro to confirm UTI has fully resolved. Cotton underware only. Do no wear underware at night. Avoid feminine wipes, douches, pantyliner use. Change clothes immediately after exercising. All questions answered. [email or web address] Not available 04/02/2023 17:15:35 02/12/2023 [id number] Sent BDAffirm. Notified pt swab is positive for BV and sent script. Plan to treat and then can try MetroGel 1-2x/wk maintenance to prevent reoccurance. Cotton underware only. Do no wear underware at night. Avoid feminine wipes, douches, pantyliner use. Change clothes immediately after exercising. All questions answered. [email or web address] Not available 02/12/2023 15:04:28 02/01/2023 [id number] venous blood draw* [email or web address] Not avai lable 02/01/2023 10:56:02 RTC in 1 year fo r annual exam. Continue current contraception - Tubal Ligation. Reviewed current PAP recommendations. Last PAP was normal in 2021. Pt would like to repeat the PAP yearly. Sent PAP, HPV. Will call pt with results. Sent routine fasting labs. Will call pt with results. Last mammogram was in June 2022 and was normal. Continue routine screening mammograms. Last colonoscopy was in September 2022 and found polyps. Pt will repeat in 3 years. Advised to always wear seatbelt. Recommended monthly breast checks. Pt's paternal aunt had breast cancer at age 55. Denies FmHx of ovarian, uterine, cervical or colon cancers. All questions answered. Not available 02/01/2023 13:10:01 12/31/2022 [id number] Sent BDAffirm, Urine Culture. Will call pt with results. Cotton underware only. Do no wear underware at night. Avoid feminine wipes, douches, pantyliner use. Change clothes immediately after exercising. All questions answered. [email or web address] Not available 12/31/2022 14:02:40 08/21/2022 [id number] Sent Urine Culture. Will call pt with results. Always wipe from front to back. Urinate immediately after intercourse. Increase PO hydration. Drink unsweetened cranberry juice. All questions answered. [email or web address] Not available 08/21/2022 15:00:12 06/29/2022 [id number] Sent order for diagnostic breast ultrasound and bilateral mammogram. Advised pt to call and schedule if doesn't hear from [facility] within 48hrs. RTC as needed. All questions answered. [email or web address] Not available 06/29/2022 14:19:21 02/09/2022 [id number] handling fee* [email or web address] Not available 02/09/2022 10:24:23 Sent Urine Culture, BDAffirm. Will call pt with results. Always wipe from front to back. Urinate immediately after intercourse. Increase PO hydration. Drink unsweetened cranberry juice. All questions answered. [email or web address] Not available 02/09/2022 10:24:20 01/26/2022 [id number] handling fee* [email or web address] Not available 01/26/2022 11:12:23 RTC in 1 year fo r annual exam. Continue current contraception - Tubal Ligation. Reviewed current PAP recommendations. Last PAP was normal in 2020. Pt would like to repeat the PAP yearly. Sent PAP, HPV. Will call pt with results. Sent routine fasting labs. Will call pt with results. Last mammogram was normal in August 2021. Continue yearly screening mammograms. Advised to always wear seatbelt. Recommended monthly breast checks. Pt's paternal aunt had breast cancer at age 55. Denies FmHx of ovarian, uterine, cervical or colon cancers. All questions answered. [email or web address] Not available 01/26/2022 13:29:25 01/21/2021 [id number] handling fee* [email or web address] Not available 01/21/2021 12:39:54 venous blood draw* [email or web address] Not avail able 01/21/2021 12:39:54 RTC in 1 year fo r annual exam Continue current contraception - tubal ligation. Sent PAP, HPV. Will call pt with results. Sent routine fasting labs. Will call pt with results. Advised to always wear seatbelt. Recommended monthly breast checks. Pt's paternal aunt had breast cancer at age 55. Denies FmHx of ovarian, uterine, cervical or colon cancers. All questions answered. [email or web address] Not available 01/21/2021 16:20:21 01/09/2020 [id number] Avoid alcoholic beverages. Patient encouraged not to smoke. Discontinue the use of all non-medicinal drugs and chemicals. First trimester screening discussed and is pt is undecided at this time. Take vitamins daily. Nutrition, fish and cheese advisories, and exercise discussed. Told to avoid nitrites in processed meat foods such as boyd, hot dogs, salami and pepperoni. Hospital and practice style discussed with cross coverage system. Discussed care/visits. Discussed nutrition, safe OTC meds with . Discussed CF screening, and available screenings. Discussed routine screenings (FAS and 1 hr gtt). 1st OB packet and education completed. Please see flowsheet. Pt to call clinic with any concerns and schedule next appt as directed. All questions answered. Pt expressed understanding and agreement with above. Call with concerns. Handouts were provided. See Flowsheet for additional information. Gave SAB precautions. RTC in 4wks for 1st OB with MD. [email or web address] Not available 01/10/2020 12:20:23 Reason for Referral Maternal & Medicine Re ferral for consult- ECHOGENIC AREA HEART NOTED AT [facility] Referring Physician: Teena Lo, LAY UPS ASSEMBLER, Encounter Date: 04/09/2020 Results Created Date Observation Date Name Description Value Unit Range Abnormal Flag LastModifiedBy Organization Detail LastModifiedTime 10/15/2020 urina lysis , dipst ick Unknown Analyte Clean catch Not Available Tm207_iakrjev rtners_[facility] ry [facility] [place] [address], [address], 10/15/2020 16:05:08 10/15/2020 urina lysis , dipst ick Unknown Analyte Negati ve Not Available It150_cllvwjc rtners_[facility] ry [address] [facility] [address] [place] [address], [address], 10/15/2020 16:05:08 10/15/2020 urina lysis , dipst ick Unknown Analyte Negati ve Not Available Bh365_wjwgjhq rtners_[facility] ry [address], [address], 10/15/2020 16:05:08 10/15/2020 urina lysis , dipst ick Unknown Analyte Negati ve Not Available Ef100_kejwegj rtners_[facility] ry [address], [place], [address], 10/15/2020 16:05:08 10/15/2020 urina lysis , dipst ick Unknown Analyte 1.015 Not Available Pp391_rmmhl pa rtners_manuela ry [address], [place], [address], 10/15/2020 16:05:08 10/15/2020 urina lysis , dipst ick Unknown Analyte negati ve Not Available Ox056_xicznpx rtners_manuela ry [address], [place], [address], 10/15/2020 16:05:08 10/15/2020 urina lysis , dipst ick Unknown Analyte 6.0 Not Available Hi143_kglsy pa rtners_manuela ry [address], [place], [address], 10/15/2020 16:05:08 10/15/2020 urina lysis , dipst ick Unknown Analyte Negati ve Not Available Ph339_csmkwbf rtners_hermitagetoro ry [address], [place], [address], 10/15/2020 16:05:08 10/15/2020 urina lysis , dipst ick Unknown Analyte 0.2 Not Available Gj921_bphtn pa rtners_manuela ry [address], [place], [address], 10/15/2020 16:05:08 10/15/2020 urina lysis , dipst ick Unknown Analyte negati ve Not Available Va174_jbdycdl rtners_hermitagetoro ry [address], [place], [address], 10/15/2020 16:05:08 10/15/2020 urina lysis , dipst ick Unknown Analyte negati ve Not Available Br953_yqvzsjp rtners_[facility] ry [address], [place], [address], 10/15/2020 16:05:08 08/08/2020 urina lysis , dipst ick Unknown Analyte Clean catch Not Available Tt332_ggrdsqb rtners_manuela ry [address], [place], [address], 08/08/2020 10:11:08 08/08/2020 urina lysis , dipst ick Unknown Analyte Negati ve Not Available Ud387_ynomoxr rtners_manuela ry [address], [place], [address], 08/08/2020 10:11:08 08/08/2020 urina lysis , dipst ick Unknown Analyte Negati ve Not Available Lf192_uwgzpvt rtners_hermitagetoro ry [address], [place], [address], 08/08/2020 10:11:08 08/08/2020 urina lysis , dipst ick Unknown Analyte Negati ve Not Available Tk510_ikrudop rtners_manuela ry [address], [place], [address], 08/08/2020 10:11:08 08/08/2020 urina lysis , dipst ick Unknown Analyte 1.025 Not Available Od189_lvztc pa rtners_hermitagetoro ry [address], [place], [address], 08/08/2020 10:11:08 08/08/2020 urina lysis , dipst ick Unknown Analyte negati ve Not Available Hj265_lwgtnah rtners_hermitagetoro ry [address], [place], [address], 08/08/2020 10:11:08 08/08/2020 urina lysis , dipst ick Unknown Analyte 6.0 Not Available Lh511_zvbdv pa rtners_hermitagetoro ry [address], [place], [address], 08/08/2020 10:11:08 08/08/2020 urina lysis , dipst ick Unknown Analyte trace Not Available Jn540_torgy pa rtarnoldo_manuela mijares [address] [employer] [facility] [address], [place], [address], 08/08/2020 10:11:08 08/08/2020 urina lysis , dipst ick Unknown Analyte 0.2 Not Available Da255_onnhg pa rtarnoldo_[facility] [address] [facility] [address], [place], [address], 08/08/2020 10:11:08 08/08/2020 urina lysis , dipst ick Unknown Analyte negati ve Not Available Sn106_xpkeozhmnoique [place] [address] [facility] [address] [facility], [place], [address], 08/08/2020 10:11:08 08/08/2020 urina lysis , dipst ick Unknown Analyte modera te Not Available Zf688_hdulffkmonique [place] [address] [facility] [address] [facility], [place], [address], 08/08/2020 10:11:08 05/20/2020 hemog lobin (Hb), blood hemoglobin, blood 12.5 g/dL 12.0-1 5.0 Not Available To073_akayn_e ashley [address] [place], [place] [address] [address] [facility], [place], [address], 05/20/2020 17:17:11 05/20/2020 gluco se layton ance test, 1-bart r 1 hour post-glucola serum glucose 116 mg/dL <140 Not Available Pl711_hxnag _eder ashley [address] [place], [place] [address] [facility] [address], [place], [address], 05/20/2020 17:16:53 02/06/20 20 02/06/2020 CT + NG + TV, DNA, urine /swab chlam. amp. negati ve for the presen ce of chlamy miguel tracho matis DNA by PCR. negati ve Not Available [facility] [address] [place], [address], 02/14/2020 11:16:07 02/06/20 20 02/06/2020 CT + NG + TV, DNA, urine /swab neis. amp. negati ve for the presen ce of neisse olga gonorr hoeae DNA by PCR. negati ve Not Available [facility] [address] [place], [address], 02/14/2020 11:16:07 02/06/20 20 02/06/2020 pap, LB + refle x HR HPV case report see note Not Available [facility] [address] [place], [address], 02/14/2020 11:16:08 05/31/19 21 05/30/2020 syphi lis Ab, igg syphilis antibody screen nonrea ctive nonrea ctive Not Available [facility] [address] [place], [address], 05/30/2020 23:47:42 05/31/19 21 05/30/2020 blood group antib primo scree n, serum or plasm a antibody screen negati ve Not Available [facility] [address] [place], [address], 05/30/2020 23:47:42 07/24/19 21 07/23/2020 strep tococ cus group B DNA group B strep by PCR no group B strept ococcu s detect ed by PCR. no group B strept ococcu s detect ed by PCR. Not Available [facility] [address] [place], [address], 07/25/2020 13:15:13 08/23/19 21 08/22/2020 cultu re, urine cult-urine mixed alexis with 3 or more organi sms presen t. none predom inant. Not Available [facility] [address], [place], [address], 08/23/2020 14:18:10 08/23/19 21 08/22/2020 urina lysis , dipst ick Unknown Analyte Clean catch Not Available [id number]_qhafknt rtners_[facility] ry [address], [place], [address], 08/22/2020 09:23:45 08/23/19 21 08/22/2020 urina lysis , dipst ick Unknown Analyte Negati ve Not Available [id number]_bkcbure rtarnoldo_[facility] ry [address], [place], [address], 08/22/2020 09:23:45 08/23/19 21 08/22/2020 urina lysis , dipst ick Unknown Analyte Negati ve Not Available [id number]_kkcnuir rtarnoldo_[facility] ry [address], [place], [address], 08/22/2020 09:23:45 08/23/19 21 08/22/2020 urina lysis , dipst ick Unknown Analyte Negati ve Not Available [id number]_viqmfur rtarnoldo_[facility] ry [address], [place], [address], 08/22/2020 09:23:45 08/23/19 21 08/22/2020 urina lysis , dipst ick Unknown Analyte 1.025 Not Available Oq575_xisse pa rtners_[facility] ry [address], [place], [address], 08/22/2020 09:23:45 08/23/19 21 08/22/2020 urina lysis , dipst ick Unknown Analyte large Not Available [id number]_sqiyo pa rtners_manuela ry [address], [place], [address], 08/22/2020 09:23:45 08/23/19 21 08/22/2020 urina lysis , dipst ick Unknown Analyte 5.0 Not Available [id number]_exqqo pa rtners_manuela ry [address], [place], [address], 08/22/2020 09:23:45 08/23/19 21 08/22/2020 urina lysis , dipst ick Unknown Analyte Negati ve Not Available [id number]_jlrlzaw rtners_hermitagetoro ry [address], [place], [address], 08/22/2020 09:23:45 08/23/19 21 08/22/2020 urina lysis , dipst ick Unknown Analyte 0.2 Not Available [id number]_rkcua pa rtners_hermitag[facility]oro ry [address], [place], [address], 08/22/2020 09:23:45 08/23/19 21 08/22/2020 urina lysis , dipst ick Unknown Analyte negati ve Not Available [id number]_rpkmxsn rtners_[facility] ry [address], [place], [address], 08/22/2020 09:23:45 08/23/19 21 08/22/2020 urina lysis , dipst ick Unknown Analyte modera te Not Available [id number]_owyarmx rtners_[facility] ry [address], [place], [address], 08/22/2020 09:23:45 08/23/19 21 08/22/2020 urina lysis , dipst ick Unknown Analyte dark yellow Not Available [id number]_wklvlag rtners_[facility] ry [address], [place], [address], 08/22/2020 09:23:45 08/23/19 21 08/22/2020 urina lysis , dipst ick Unknown Analyte slight ly cloudy Not Available [id number]_svgttjc rtners_emmanuelbu ry [address], [place], [address], 08/22/2020 09:23:45 10/16/19 21 10/15/2020 CULT- URINE cult-urine gram positi ve organi sm abnormal Not Available [facility] [address] [place], [address], 10/17/2020 09:20:45 10/16/19 21 10/15/2020 CULT- URINE cult-urine gram negati ve bacill i abnormal Not Available [facility] [address] [place], [address], 10/17/2020 09:20:45 01/22/20 21 01/21/2021 CBC/D IFF WBC 8.7 K/uL 4.3-[address] [facility] [address] [place], [address], 01/22/2021 17:29:59 01/22/20 21 01/21/2021 CBC/D IFF RBC 5.17 M/uL 4.20-[address] [facility] [address] [place], [address], 01/22/2021 17:29:59 01/22/20 21 01/21/2021 CBC/D IFF hemoglobin 14.0 gm/dL 12.0-[address] [facility] [address] [place], [address], 01/22/2021 17:29:59 01/22/20 21 01/21/2021 CBC/D IFF hematocrit 44.5 % 36.0-4 8.0 Not Available [facility] [address] [place], [address], 01/22/2021 17:29:59 01/22/20 21 01/21/2021 CBC/D IFF MCV 86 fL 80-100 Not Available [facility] [address] [place], [address], 01/22/2021 17:29:59 01/22/20 21 01/21/2021 CBC/D IFF MCH 27 pg 27-[address] [facility] [address] [place], [address], 01/22/2021 17:29:59 01/22/20 21 01/21/2021 CBC/D IFF MCHC 32 gm/dL 33-[address] [facility] [address] [place], [address], 01/22/2021 17:29:59 01/22/20 21 01/21/2021 CBC/D IFF RDW 13.8 % 11.5-[address] [facility] [address] [place], [address], 01/22/2021 17:29:59 01/22/20 21 01/21/2021 CBC/D IFF platelet count 338 K/uL 150-[address] [facility] [address] [place], [address], 01/22/2021 17:29:59 01/22/20 21 01/21/2021 CBC/D IFF MPV 9.4 6.5-[address] [facility] [address] [place], [address], 01/22/2021 17:29:59 01/22/20 21 01/21/2021 CBC/D IFF PMN % 58.2 % Not Available [facility] [address] [place], [address], 01/22/2021 17:29:59 01/22/20 21 01/21/2021 CBC/D IFF Ig% 0.6 % <=1.0 Not Available [facility] [address] [place], [address], 01/22/2021 17:29:59 01/22/20 21 01/21/2021 CBC/D IFF lymph % 33.5 % Not Available [facility] [address] [place], [address], 01/22/2021 17:29:59 01/22/20 21 01/21/2021 CBC/D IFF mono % 5.4 % Not Available [facility] [address] [place], [address], 01/22/2021 17:29:59 01/22/20 21 01/21/2021 CBC/D IFF eos % 1.8 % Not Available [facility] [address] [place], [address], 01/22/2021 17:29:59 01/22/20 21 01/21/2021 CBC/D IFF baso % 0.5 % Not Available [facility] [address] [place], [address], 01/22/2021 17:29:59 01/22/20 21 01/21/2021 CBC/D IFF PMN absolute 5.09 K/uL 1.80-7 .80 Not Available [facility] [address] [place], [address], 01/22/2021 17:29:59 01/22/20 21 01/21/2021 CBC/D IFF Ig absolute 0.05 K/uL Not Available [facility] [address] [place], [address], 01/22/2021 17:29:59 01/22/20 21 01/21/2021 CBC/D IFF lymph absolute 2.93 K/uL 1.00-[address] [facility] [address] [place], [address], 01/22/2021 17:29:59 01/22/20 21 01/21/2021 CBC/D IFF mono absolute 0.47 K/uL 0.00-[address] [facility] [address] [place], [address], 01/22/2021 17:29:59 01/22/20 21 01/21/2021 CBC/D IFF eos absolute 0.16 K/uL 0.00-0 .45 Not Available [facility] [address] [place], [address], 01/22/2021 17:29:59 01/22/20 21 01/21/2021 CBC/D IFF baso absolute 0.04 K/uL 0.00-0 .20 Not Available [facility] [address] [place], [address], 01/22/2021 17:29:59 01/22/20 21 01/21/2021 CBC/D IFF nucl RBC % 0.0 /100_ WBC 0.0-0. [address] [facility] [address] [place], [address], 01/22/2021 17:29:59 01/22/20 21 01/21/2021 CBC/D IFF nucl RBC absolute 0.00 K/uL 0.00-0 .00 Not Available [facility] [address] [place], [address], 01/22/2021 17:29:59 01/22/20 21 01/21/2021 LIPID PROFI LE CASCA DE specimen type Not Available [facility] [address] [place], [address], 01/22/2021 17:30:00 01/22/20 21 01/21/2021 LIPID PROFI LE CASCA DE cholesterol 207 mg/dL <[address] [facility] [address] [place], [address], 01/22/2021 17:30:00 01/22/20 21 01/21/2021 LIPID PROFI LE CASCA DE triglyceride s profile 178 mg/dL <[address] [facility] [address] [place], [address], 01/22/2021 17:30:00 01/22/20 21 01/21/2021 LIPID PROFI LE CASCA DE LDL chol, calc 114 mg/dL <100 high Not Available [place] [address] [place], [address], 01/22/2021 17:30:00 01/22/20 21 01/21/2021 LIPID PROFI LE CASCA DE HDL cholesterol 57 mg/dL >[address] [facility] [address] [place], [address], 01/22/2021 17:30:00 01/22/20 21 01/21/2021 LIPID PROFI LE CASCA DE chol/HDL ratio 3.6 0.0-4. [address] [facility] [address] [place], [address], 01/22/2021 17:30:00 01/22/20 21 01/21/2021 GLUCO SE, FASTI NG glucose, fasting 85 mg/dL 50-[address] [facility] [address] [place], [address], 01/22/2021 17:30:00 01/22/20 21 01/21/2021 THYRO ID CASCA DE TSH 0.851 uIU/m L 0.358- 3.740 Not Available [place] [address] [place], [address], 01/22/2021 17:30:01 01/22/20 21 01/21/2021 HBA1C HbA1C (glycosolate d HGB) 5.0 % <5.7 Not Available [place] [address] [place], [address], 01/22/2021 17:30:01 01/22/20 21 01/21/2021 HBA1C EAG (est. average glucose) 97 mg/dL <117 Not Available [place] [address] [place], [address], 01/22/2021 17:30:01 01/22/20 21 01/21/2021 HPV HIGH RISK DNA WITH 16/18 GENOT YPING HPV high risk type 16 negati ve for HPV type 16. negati ve for HPV type 16. Not Available [facility] [place], [address], 02/18/2021 10:31:04 01/22/20 21 01/21/2021 HPV HIGH RISK DNA WITH 16/18 GENOT YPING HPV high risk type 18 negati ve for HPV type 18. negati ve for HPV type 18. Not Available [facility] [place], [address], 02/18/2021 10:31:04 01/22/20 21 01/21/2021 HPV HIGH RISK DNA WITH 16/18 GENOT YPING HPV other high risk types negati ve for other high risk HPV types. negati ve for other high risk HPV types. Not Available 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 [address], [place], [address], 02/18/2021 10:31:05 01/27/20 22 01/26/2022 LIPID PANEL cholesterol 187 mg/dL <200 Not Available [facility] [address], [place], [address], 01/26/2022 21:46:43 01/27/20 22 01/26/2022 LIPID PANEL triglyceride s 125 mg/dL <150 Not Available [facility] [address], [place], [address], 01/26/2022 21:46:43 01/27/20 22 01/26/2022 LIPID PANEL direct measure HDL 47 mg/dL >=50 low Not Available [facility] [address], [place], [address], 01/26/2022 21:46:43 01/27/20 22 01/26/2022 LIPID PANEL LDL cholesterol calculated 115 mg/dL <=100 high Not Available [facility] [address], [place], [address], 01/26/2022 21:46:43 01/27/20 22 01/26/2022 LIPID PANEL non HDL cholesterol 140 mg/dL <130 high Not Available [facility] [address], [place], [address], 01/26/2022 21:46:43 01/27/20 22 01/26/2022 HEMOG LOBIN A1C hemoglobin A1C 5.2 % <5.7 Not Available [address], [place], [address], 01/26/2022 21:54:40 01/27/20 22 01/26/2022 CBC WITH PLATE LETS CBC with platelets cancel ed Not Available [address], [place], [address], 01/29/2022 15:06:31 01/27/20 22 01/26/2022 GYNEC OLOGI C CYTOL OGY (PAP SMEAR ) gynecologic cytology see result s below Not Available [address], [place], [address], 02/03/2022 08:45:17 01/27/20 22 01/26/2022 HPV HIGH RISK TYPES DNA CERVI REBEKAH other HR HPV negati ve negati ve Not Available [address], [place], [address], 02/03/2022 08:45:29 01/27/20 22 01/26/2022 HPV HIGH RISK TYPES DNA CERVI REBEKAH HPV16 DNA negati ve negati ve Not Available [address], [place], [address], 02/03/2022 08:45:29 01/27/20 22 01/26/2022 HPV HIGH RISK TYPES DNA CERVI REBEKAH HPV18 DNA negati ve negati ve Not Available [address], [place], [address], 02/03/2022 08:45:29 01/27/20 22 01/26/2022 HPV HIGH RISK TYPES DNA CERVI REBEKAH final diagnosis see note below Not Available [address], [place], [address], 02/03/2022 08:45:29 02/10/20 22 02/09/2022 URINE CULTU RE urine culture see result s below Not Available [address], [place], [address], 02/11/2022 08:24:47 02/10/20 22 02/09/2022 bacte rial vagin osis + vagin itis panel , vagin al gardnerella positi ve negati ve abnormal Not Available Ay638_iwldthz rtarnoldozion[address], [place], [address], 02/09/2022 10:23:26 02/10/20 22 02/09/2022 bacte rial vagin osis + vagin itis panel , vagin al trichomonas negati ve negati ve normal Not Available [id number]_pbpnxjd [facility], [place], [address], 02/09/2022 10:23:26 02/10/20 22 02/09/2022 bacte rial vagin osis + vagin itis panel , vagin al avery negati ve negati ve normal Not Available Rd991_cfjhgqh arnoldozion[address], [place], [address], 02/09/2022 10:23:26 02/10/20 22 02/09/2022 urina lysis , dipst ick Unknown Analyte negati ve Not Available Tz571_sdymcpj [facility] [place] [address], [place], [address], 02/09/2022 09:47:12 02/10/20 22 02/09/2022 urina lysis , dipst ick Unknown Analyte negati ve Not Available Ra536_[facility] [place] [address], [place], [address], 02/09/2022 09:47:12 02/10/20 22 02/09/2022 urina lysis , dipst ick Unknown Analyte negati ve Not Available Gp692_mqlwpys rtmanuel [address], [place], [address], 02/09/2022 09:47:12 02/10/20 22 02/09/2022 urina lysis , dipst ick Unknown Analyte 1.015 Not Available Gv522_nsvhm pa rtnersrosanna [address], [place], [address], 02/09/2022 09:47:12 02/10/20 22 02/09/2022 urina lysis , dipst ick Unknown Analyte negati ve Not Available Fs372_urwrthw shai [address], [place], [address], 02/09/2022 09:47:12 02/10/20 22 02/09/2022 urina lysis , dipst ick Unknown Analyte 6.0 Not Available Fg053_mhpss pa rtnersrosanna [address], [place], [address], 02/09/2022 09:47:12 02/10/20 22 02/09/2022 urina lysis , dipst ick Unknown Analyte negati ve Not Available Cj115_wgwcchd rtmanuel [address], [place], [address], 02/09/2022 09:47:12 02/10/20 22 02/09/2022 urina lysis , dipst ick Unknown Analyte 0.2 Not Available Qh769_xhshr pa rtnersrosanna [address], [place], [address], 02/09/2022 09:47:12 02/10/20 22 02/09/2022 urina lysis , dipst ick Unknown Analyte negati ve Not Available Lb687_rrlzllq shai [address], [place], [address], 02/09/2022 09:47:12 02/10/20 22 02/09/2022 urina lysis , dipst ick Unknown Analyte small Not Available Ka977_vvddznivia gibbons [address], [place], [address], 02/09/2022 09:47:12 08/22/19 23 08/21/2022 URINE CULTU RE urine culture see result s below abnormal Not Available [address], [place], [address], 08/23/2022 14:11:26 08/22/19 23 08/21/2022 urina lysis , dipst ick Unknown Analyte Clean Catch Not Available Fd688_sehsior shai [address], [place], [address], 08/21/2022 14:58:47 08/22/19 23 08/21/2022 urina lysis , dipst ick Unknown Analyte negati ve Not Available Sq486_ntzclqo shai [address] [place], [place], [address], 08/21/2022 14:58:47 08/22/19 23 08/21/2022 urina lysis , dipst ick Unknown Analyte negati ve Not Available Ff620_zspntiq shai [address] [place], [address], 08/21/2022 14:58:47 08/22/19 23 08/21/2022 urina lysis , dipst ick Unknown Analyte negati ve Not Available At391_iyotjua rtners_fartun [address], [place], [address], 08/21/2022 14:58:47 08/22/19 23 08/21/2022 urina lysis , dipst ick Unknown Analyte 1.010 Not Available Qi638_ixrwh pa rtnersMukulbrigh[facility] hospitalmon[facility], [place], [address], 08/21/2022 14:58:47 08/22/19 23 08/21/2022 urina lysis , dipst ick Unknown Analyte large Not Available Gn511_uhjwv pa rtnersMukulbrigham city [facility] hospitalmon[facility], [place], [address], 08/21/2022 14:58:47 08/22/19 23 08/21/2022 urina lysis , dipst ick Unknown Analyte 7.0 Not Available Wz602_vzxfm pa rtnersMukulbrigham city [facility] hospitalmon[facility], [place], [address], 08/21/2022 14:58:47 08/22/19 23 08/21/2022 urina lysis , dipst ick Unknown Analyte negati ve Not Available Bn659_fnbkmas rtarnoldo[address], [place], [address], 08/21/2022 14:58:47 08/22/19 23 08/21/2022 urina lysis , dipst ick Unknown Analyte 0.2 Not Available Pl058_cwzji pa rtnersMukulbrigh[facility] hospitalmon[facility], [place], [address], 08/21/2022 14:58:47 08/22/19 23 08/21/2022 urina lysis , dipst ick Unknown Analyte negati ve Not Available Xx655_yehrsbx rtnersMukulbrigham city community hospitalyd[address], [place], [address], 08/21/2022 14:58:47 08/22/19 23 08/21/2022 urina lysis , dipst ick Unknown Analyte trace Not Available On562_jvwavcarolynn richardson rtarnoldo[address], [place], [address], 08/21/2022 14:58:47 08/22/19 23 08/21/2022 bacte rial vagin osis + vagin itis panel , vagin al gardnerella Neg negati ve normal Not Available Ff271_hmvlifz [facility], [place], [address], 08/21/2022 14:58:48 08/22/19 23 08/21/2022 bacte rial vagin osis + vagin itis panel , vagin al trichomonas Neg negati ve normal Not Available Pj825_sipvspn rtarnoldo[address], [place], [address], 08/21/2022 14:58:48 08/22/19 23 08/21/2022 bacte rial vagin osis + vagin itis panel , vagin al avery Neg negati ve normal Not Available Pd532_nlaatre [facility], [place], [address], 08/21/2022 14:58:48 01/01/20 23 12/31/2022 URINE CULTU RE urine culture see result s below Not Available [address], [place], [address], 01/02/2023 07:44:04 01/01/20 23 12/31/2022 bacte rial vagin osis + vagin itis panel , vagin al gardnerella negati ve negati ve normal Not Available Puja fel[facility] hospitaldinesh [address], [place], [address], 12/31/2022 10:11:46 01/01/2012/31/2022 bacte rial vagin osis + vagin itis panel , vagin al trichomonas negati ve negati ve normal Not Available Vy131_thtwgjfjuan carlos felipe[address], [place], [address], 12/31/2022 10:11:46 01/01/2012/31/2022 bacte rial vagin osis + vagin itis panel , vagin al avery negati ve negati ve normal Not Available Yo939_oevuyptjuan carlos villafana[address], [place], [address], 12/31/2022 10:11:46 01/01/2012/31/2022 urina lysis , dipst ick, auto Unknown Analyte Clean Catch Not Available Puja [facility], [place], [address], 12/31/2022 12:45:37 01/01/2012/31/2022 urina lysis , dipst ick, auto Unknown Analyte negati ve Not Available Hq696_ottwtshjuan carlos felipe[address], [place], [address], 12/31/2022 12:45:37 01/01/2012/31/2022 urina lysis , dipst ick, auto Unknown Analyte negati ve Not Available Iz912_lfuvjkrjuan carlos villafana[address], [place], [address], 12/31/2022 12:45:37 01/01/2012/31/2022 urina lysis , dipst ick, auto Unknown Analyte negati ve Not Available Zl408_mmdhyqt rtnersrosanna [address], [place], [address], 12/31/2022 12:45:37 01/01/2012/31/2022 urina lysis , dipst ick, auto Unknown Analyte 1.025 Not Available Sm078_hpizl pa rtners_[facility], [place], [address], 12/31/2022 12:45:37 01/01/2012/31/2022 urina lysis , dipst ick, auto Unknown Analyte small Not Available Hw595_ubrff pa rtnerssanpete valley hospitaldinesh [address], [place], [address], 12/31/2022 12:45:37 01/01/2012/31/2022 urina lysis , dipst ick, auto Unknown Analyte 6.5 Not Available Jp542_xwjnx pa rtnersrosanna [address], [place], [address], 12/31/2022 12:45:37 01/01/2012/31/2022 urina lysis , dipst ick, auto Unknown Analyte negati ve Not Available Nk500_fqvxjum rtnersMukul[address], [place], [address], 12/31/2022 12:45:37 01/01/2012/31/2022 urina lysis , dipst ick, auto Unknown Analyte 0.2 Not Available Nh666_rhcvt pa rtnersMukulbrigham city community hospitalidnesh [address], [place], [address], 12/31/2022 12:45:37 01/01/2012/31/2022 urina lysis , dipst ick, auto Unknown Analyte negati ve Not Available Wc314_bsqvrbd rtmanuel [address], [place], [address], 12/31/2022 12:45:37 01/01/2012/31/2022 urina lysis , dipst ick, auto Unknown Analyte large Not Available Li137_ahxot debra rtcasabrigham city community hospitalmonroe[address], [place], [address], 12/31/2022 12:45:37 01/01/2012/31/2022 urina lysis , dipst ick, auto Unknown Analyte pale yellow Not Available Tj895_fnywcydmonique felipebrigham city community hospitaldinesh [address], [place], [address], 12/31/2022 12:45:37 01/01/2012/31/2022 urina lysis , dipst ick, auto Unknown Analyte clear Not Available Xt423_mwwvk debra rtmanuel [address], [place], [address], 12/31/2022 12:45:37 02/02/2002/01/2023 CBC WITH PLATE LETS WBC count 8.4 10e3/ uL 4.0-11 .0 Not Available [address], [place], [address], 02/01/2023 15:49:09 02/02/20 23 02/01/2023 CBC WITH PLATE LETS RBC count 5.34 10e6/ uL 3.80-5 .20 high Not Available [facility] [address], [place], [address], 02/01/2023 15:49:09 02/02/2002/01/2023 CBC WITH PLATE LETS hemoglobin 15.0 g/dL 11.7-1 5.7 Not Available [address], [place], [address], 02/01/2023 15:49:09 02/02/20 23 02/01/2023 CBC WITH PLATE LETS hematocrit 46.6 % 35.0-4 7.0 Not Available [address], [place], [address], 02/01/2023 15:49:09 02/02/2002/01/2023 CBC WITH PLATE LETS MCV 87 fL 78-100 Not Available [address], [place], [address], 02/01/2023 15:49:09 02/02/20 23 02/01/2023 CBC WITH PLATE LETS MCH 28.1 pg 26.5-3 3.0 Not Available [address], [place], [address], 02/01/2023 15:49:09 02/02/2002/01/2023 CBC WITH PLATE LETS MCHC 32.2 g/dL 31.5-3 6.5 Not Available [address], [place], [address], 02/01/2023 15:49:09 02/02/2002/01/2023 CBC WITH PLATE LETS RDW 13.8 % 10.0-1 5.0 Not Available [address], [place], [address], 02/01/2023 15:49:09 02/02/20 23 02/01/2023 CBC WITH PLATE LETS platelet count 330 10e3/ uL 150-45 0 Not Available [address], [place], [address], 02/01/2023 15:49:09 02/02/20 23 02/01/2023 HEMOG LOBIN A1C hemoglobin A1C 5.2 % <5.7 Not Available [address], [place], [address], 02/01/2023 15:49:10 02/02/20 23 02/01/2023 LIPID PANEL cholesterol 198 mg/dL <200 Not Available [address], [place], [address], 02/01/2023 15:49:12 02/02/20 23 02/01/2023 LIPID PANEL triglyceride s 102 mg/dL <150 Not Available [address], [place], [address], 02/01/2023 15:49:12 02/02/20 23 02/01/2023 LIPID PANEL direct measure HDL 53 mg/dL >=50 Not Available [address], [place], [address], 02/01/2023 15:49:12 02/02/20 23 02/01/2023 LIPID PANEL LDL cholesterol calculated 125 mg/dL <=100 high Not Available [address], [place], [address], 02/01/2023 15:49:12 02/02/20 23 02/01/2023 LIPID PANEL non HDL cholesterol 145 mg/dL <130 high Not Available [address], [place], [address], 02/01/2023 15:49:12 02/02/20 23 02/01/2023 GYNEC OLOGI C CYTOL OGY (PAP SMEAR ) gynecologic cytology see result s below Not Available [address], [place], [address], 02/04/2023 16:08:46 02/02/20 23 02/01/2023 HPV HIGH RISK TYPES DNA CERVI REBEKAH other HR HPV negati ve negati ve Not Available [address], [place], [address], 02/04/2023 16:08:59 02/02/20 23 02/01/2023 HPV HIGH RISK TYPES DNA CERVI REBEKAH HPV16 DNA negati ve negati ve Not Available [address], [place], [address], 02/04/2023 16:08:59 02/02/20 23 02/01/2023 HPV HIGH RISK TYPES DNA CERVI REBEKAH HPV18 DNA negati ve negati ve Not Available [address], [place], [address], 02/04/2023 16:08:59 02/02/20 23 02/01/2023 HPV HIGH RISK TYPES DNA CERVI REBEKAH final diagnosis see note below Not Available [address], [place], [address], 02/04/2023 16:08:59 02/02/20 23 02/01/2023 bacte rial vagin osis + vagin itis panel , vagin al gardnerella positi ve negati ve abnormal Not Available [id number] ledyziongem [address], [address], 02/01/2023 10:04:04 02/02/20 23 02/01/2023 bacte rial vagin osis + vagin itis panel , vagin al trichomonas negati ve negati ve normal Not Available [id number] [address], [address], 02/01/2023 10:04:04 02/02/20 23 02/01/2023 bacte rial vagin osis + vagin itis panel , vagin al avery negati ve negati ve normal Not Available [id number] rtners_lilyda [address] [place], [place], [address], 02/01/2023 10:04:04 02/13/20 23 02/12/2023 bacte rial vagin osis + vagin itis panel , vagin al gardnerella positi ve negati ve abnormal Not Available [id number]_smfoiexjuan [facility], [place], [address], 02/12/2023 11:30:51 02/13/20 23 02/12/2023 bacte rial vagin osis + vagin itis panel , vagin al trichomonas negati ve negati ve normal Not Available [id number]_misbqygjuan carlos hayden[address] [place], [place], [address], 02/12/2023 11:30:51 02/13/20 23 02/12/2023 bacte rial vagin osis + vagin itis panel , vagin al avery negati ve negati ve normal Not Available [id number]_tpelltjjuan carlos gibbons [address] [place], [place], [address], 02/12/2023 11:30:51 02/13/20 23 02/12/2023 urina lysis , dipst ick, auto Unknown Analyte Clean Catch Not Available [id number]_kimgfacjuan [facility] [address] [place], [address], 02/12/2023 11:30:42 02/13/20 23 02/12/2023 urina lysis , dipst ick, auto Unknown Analyte negati ve Not Available [id number]_opgooaljuan [facility] [place], [place], [address], 02/12/2023 11:30:42 02/13/20 23 02/12/2023 urina lysis , dipst ick, auto Unknown Analyte negati ve Not Available [id number]_zlmvzgx rtmanuel [address], [place], [address], 02/12/2023 11:30:42 02/13/20 23 02/12/2023 urina lysis , dipst ick, auto Unknown Analyte negati ve Not Available [id number]_svylscf rtmanuel [address], [place], [address], 02/12/2023 11:30:42 02/13/20 23 02/12/2023 urina lysis , dipst ick, auto Unknown Analyte 1.020 Not Available [id number]_razlj pa rtmanuel [address], [place], [address], 02/12/2023 11:30:42 02/13/20 23 02/12/2023 urina lysis , dipst ick, auto Unknown Analyte negati ve Not Available [id number] rtmanuel [address], [place], [address], 02/12/2023 11:30:42 02/13/20 23 02/12/2023 urina lysis , dipst ick, auto Unknown Analyte 7.5 Not Available [id number]_oclhp pa rtmanuel [address], [place], [address], 02/12/2023 11:30:42 02/13/20 23 02/12/2023 urina lysis , dipst ick, auto Unknown Analyte negati ve Not Available [id number]_efzkbgt rtmanuel [address], [place], [address], 02/12/2023 11:30:42 02/13/20 23 02/12/2023 urina lysis , dipst ick, auto Unknown Analyte negati ve Not Available [id number]_kqcgquijuan carlos gibbons [address], [place], [address], 02/12/2023 11:30:42 02/13/20 23 02/12/2023 urina lysis , dipst ick, auto Unknown Analyte negati ve Not Available [id number]_cebctitjuan [facility], [place], [address], 02/12/2023 11:30:42 02/13/20 23 02/12/2023 urina lysis , dipst ick, auto Unknown Analyte dark yellow Not Available [id number]_naafrrjjuan carlos villafana[address], [place], [address], 02/12/2023 11:30:42 02/13/20 23 02/12/2023 urina lysis , dipst ick, auto Unknown Analyte slight ly cloudy Not Available [id number]_hcopgidjuan carlos villafana[address], [place], [address], 02/12/2023 11:30:42 04/02/19 24 04/02/2023 bacte rial vagin osis + vagin itis panel , vagin al gardnerella positi ve negati ve abnormal Not Available [id number]_tyztbvfjuan carlos villafana[address], [place], [address], 04/01/2023 10:09:21 04/02/19 24 04/02/2023 bacte rial vagin osis + vagin itis panel , vagin al trichomonas negati ve negati ve normal Not Available [id number]_rkyvcncjuan carlos villafana_lilyda [address], [place], [address], 04/01/2023 10:09:21 04/02/19 24 04/02/2023 bacte rial vagin osis + vagin itis panel , vagin al avery negati ve negati ve normal Not Available Puja gibbons [address], [place], [address], 04/01/2023 10:09:21 04/02/19 24 04/02/2023 urina lysis , dipst ick, auto Unknown Analyte Clean Catch Not Available Puja gibbons [address] [place], [place], [address], 04/01/2023 10:09:28 04/02/19 24 04/02/2023 urina lysis , dipst ick, auto Unknown Analyte negati ve Not Available [id number]_vyycrdyjuan [facility] [place], [place], [address], 04/01/2023 10:09:28 04/02/19 24 04/02/2023 urina lysis , dipst ick, auto Unknown Analyte negati ve Not Available [id number]_mdspxrmjuan [facility], [place], [address], 04/01/2023 10:09:28 04/02/19 24 04/02/2023 urina lysis , dipst ick, auto Unknown Analyte negati ve Not Available Pu[facility] [address] [place], [address], 04/01/2023 10:09:28 04/02/19 24 04/02/2023 urina lysis , dipst ick, auto Unknown Analyte 1.010 Not Available [id number]_jwivk pa rtners_fartun [address], [place], [address], 04/01/2023 10:09:28 04/02/19 24 04/02/2023 urina lysis , dipst ick, auto Unknown Analyte trace Not Available [id number]_chwwo pa rtnersrosanna [address], [place], [address], 04/01/2023 10:09:28 04/02/19 24 04/02/2023 urina lysis , dipst ick, auto Unknown Analyte 6.5 Not Available [id number]_usuoa pa rtnersrosanna [address], [place], [address], 04/01/2023 10:09:28 04/02/19 24 04/02/2023 urina lysis , dipst ick, auto Unknown Analyte negati ve Not Available Cw457_zeeyfud rtners[facility], [place], [address], 04/01/2023 10:09:28 04/02/19 24 04/02/2023 urina lysis , dipst ick, auto Unknown Analyte 0.2 Not Available Tb346_setup pa rtnersfartun [address], [place], [address], 04/01/2023 10:09:28 04/02/19 24 04/02/2023 urina lysis , dipst ick, auto Unknown Analyte negati ve Not Available [id number]_avgqzqy rtnersMukulbrigham city community hospitaldinesh [address], [address], 04/01/2023 10:09:28 04/02/19 24 04/02/2023 urina lysis , dipst ick, auto Unknown Analyte negati ve Not Available [id number]_fctgdmt rtarnoldo_fartun le [address] [facility] [address], [place], [address], 04/01/2023 10:09:28 04/02/19 24 04/02/2023 urina lysis , dipst ick, auto Unknown Analyte yellow Not Available [id number]_gqjkb pa rtarnoldo_fartun [address], [place], [address], 04/01/2023 10:09:28 04/02/19 24 04/02/2023 urina lysis , dipst ick, auto Unknown Analyte slight ly cloudy Not Available [id number]_jnidrwm rtmanuel [address], [place], [address], 04/01/2023 10:09:28 01/09/20 US, obste tric, 1st trime ster No observ ation record ed. amies Mary [address], [place], [address], 01/10/2020 22:32:07 03/22/19 21 03/21/2020 US, echo ardio gram No observ ation record ed. [email or web address] [facility] [address], [place], [address], 03/29/2020 14:03:57 03/22/19 21 03/21/2020 US, [facility] ardio gram No observ ation record ed. [email or web address] [facility] [address], [place], [address], 04/18/2020 11:14:46 03/25/19 21 03/25/2020 MAMMO , scree see, bilat eral No observ ation record ed. [email or web address] [facility] [address], [place], [address], 03/29/2020 14:03:31 03/26/19 21 03/26/2020 US, breas t, bilat eral No observ ation record ed. [facility] [facility], [place], [address], 03/29/2020 17:43:28 03/27/19 21 03/26/2020 US, bert beckett, bilat eral No observ ation record ed. [facility], [place], [address], 03/29/2020 17:50:54 04/01/19 21 04/01/2020 elect costa michel am, michael ne ECG, 12 leads min No observ ation record ed. [facility] (Pulmonary Function) [address], [place], [address], 04/08/2020 10:05:54 04/02/19 US, obste tric, mater nal evalu ation + anato my No observ ation record ed. [email or web address] Mary [address], [place], [address], 05/06/2020 15:19:03 04/30/19 21 04/25/2020 US, obste tric, mater nal evalu ation + anato my No observ ation record ed. amies Not Available 05/05/2020 22:21:51 05/17/19 US, obste tric, trans vagin al No observ ation record ed. amies [address], [place], [address], 05/19/2020 10:56:37 05/31/19 21 US, obste tric, follo w-up No observ ation record ed. amies Mary [address], [place], [address], 06/01/2020 09:53:41 06/27/19 US, obste tric, bioph ysica l profi le No observ ation record ed. Mary [address], [place], [address], 06/26/2020 14:29:38 07/05/19 21 07/04/2020 US, obste tric No observ ation record ed. Not Available 07/08/2020 21:08:31 07/05/19 21 07/04/2020 US, obste tric, bioph ysica l profi le No observ ation record ed. [id number] rtners_[facility] ry [address] [facility] [address], [place], [address], 07/05/2020 05:12:58 07/24/19 21 07/23/2020 US, obste tric, bioph ysica l profi le No observ ation record ed. [email or web address] Mary [address], [place], [address], 07/24/2020 10:06:08 07/31/19 21 07/30/2020 US, obste tric, bioph ysica l profi le No observ ation record ed. [email or web address] Mary [address], [place], [address], 07/30/2020 14:25:41 08/09/19 21 08/08/2020 US, obste tric, bioph ysica l profi le No observ ation record ed. Mary [address], [address], 08/08/2020 10:28:47 08/28/19 22 08/27/2021 MAMMO , scree see, bilat eral No observ ation record ed. [email or web address] [facility] [address] [address], [place], [address], 08/27/2021 16:53:25 07/02/19 23 07/01/2022 MAMMO , diagn ostic , bilat eral No observ ation record ed. [email or web address] Not Available 07/01/2022 20:02:18 Result Notes None recorded. Problems Name Status Onset Date Resolution Date Notes Provider Name and Address Organization Details Recorded Time History of section Active 07/30/19 21 PaNhimaricarmen Lovingg null, [place] - [employer] 07/29/2020 17:15:34 Multigravida of advanced maternal age Active 07/30/19 21 PaNhiag Bustos null, [place] [employer] 07/29/2020 17:15:41 Vitamin D deficiency Active Not Available [facility] 10/12/2019 05:10:31 Problem Notes None recorded. Procedures Surgical History Date Name Laterality Status Provider Name and Address Organization Details Recorded Time 3 Date of Last Mammogram completed Olga Dow (TERMED) null, [place] - [employer] 07/01/2022 15:05:23 2 Date of Last Pap Smear completed Raegan Song null, [place] - [employer] 01/26/2023 12:30:03 8 section completed Not Available [facility] 10/12/2019 05:09:17 Imaging Results Imaging Date Name Status LastModified by Organization Details LastModified Time 01/09/2020 US, obstetric, 1st trimester completed orin Hernandez [address], [place], [address], 01/10/2020 22:32:07 03/21/2020 US, echocardiogram completed [email or web address] [facility] [address] [place], [address], 03/29/2020 14:03:57 03/21/2020 US, echocardiogram completed [email or web address] [facility] [address], [place], [address], 04/18/2020 11:14:46 03/25/2020 MAMMO, screening, bilateral completed [email or web address] [facility] [address], [place], [address], 03/29/2020 14:03:31 03/26/2020 US, breast, bilateral completed [facility] [address], [place], [address], 03/29/2020 17:43:28 03/26/2020 US, breast, bilateral completed [facility] [address], [place], [address], 03/29/2020 17:50:54 04/01/2020 electrocardiogram, routine ECG, [address] [facility] (Pulmonary Function) [address] [facility], [place], [address], 04/08/2020 10:05:54 04/02/2020 US, obstetric, maternal evaluation + anatomy completed [email or web address] Mary [address], [place], [address], 05/06/2020 15:19:03 04/25/2020 US, obstetric, maternal evaluation + anatomy completed amies Information not available 05/05/2020 22:21:51 05/16/2020 US, obstetric, transvaginal completed amies [address], [place], [address], 05/19/2020 10:56:37 05/30/2020 US, obstetric, follow-up completed amies Mary [address], [place], [address], 06/01/2020 09:53:41 06/26/2020 US, obstetric, biophysical profile completed Mary [address], [place], [address], 06/26/2020 14:29:38 07/04/2020 US, obstetric completed Information not available 07/08/2020 21:08:31 07/04/2020 US, obstetric, biophysical profile completed [email or web address] ners_bixby [address] [facility] [address], [place], [address], 07/05/2020 05:12:58 07/23/2020 US, obstetric, biophysical profile completed [email or web address] Mary [address], [place], [address], 07/24/2020 10:06:08 07/30/2020 US, obstetric, biophysical profile completed [email or web address] [address] [place], [address], 07/30/2020 14:25:41 08/08/2020 US, obstetric, biophysical profile completed Mary [address] [place], [address], 08/08/2020 10:28:47 08/27/2021 MAMMO, screening, bilateral completed [email or web address] [facility] [address] [facility] [address], [place], [address], 08/27/2021 16:53:25 07/01/2022 MAMMO, diagnostic, bilateral completed [email or web address] Information not available 07/01/2022 20:02:18 Procedure Notes None recorded. Medical Equipment None Reported. Allergies No known drug allergies Medications Name Sig Start Date Stop Date Status Note LastModified by Organization Details LastModified Time celecoxib 200 mg capsule TAKE ONE CAPSULE BY MOUTH TWICE A DAY 02/12 completed Not Available Not Available Not Available cyclobenzap rine 10 mg tablet TAKE 1 TABLET (10 MG TOTAL) BY MOUTH 3 (THREE) TIMES A DAY NEEDED FOR MUSCLE SPASMS FOR UP TO 10 DAYS. FOR MUSCLE SPAMS active Not Available Not Available No t Available amoxicillin 500 mg capsule TAKE 1 CAPSULE EVERY 12 HOURS BY ORAL ROUTE FOR 7 DAYS. 12/31 completed Not Available Not Available Not Available medroxyprog esterone 10 mg tablet TAKE 1 TABLET EVERY DAY BY ORAL ROUTE FOR 10 DAYS. 01/21 completed Not Available Not Available Not Available metformin 500 mg tablet TAKE 1 TABLET 3 TIMES A DAY BY ORAL ROUTE AFTER MEALS. 12/31 completed Not Available Not Available Not Available terconazole 0.4 % vaginal cream INSERT ONE APPLICATO RFUL VAGINALLY AT BEDTIME FOR 7 DAYS 02/01 completed Not Available Not Available Not Available prednisone 10 mg tablet TAKE 4 TABS DAILY IN THE MORNING WITH FOOD X 5 DAYS, DECREASE BY 1 TAB DAILY OVER THE NEXT 3 DAYS (8 DAYS TOTAL) 12/31 completed Not Available Not Available Not Available clindamycin HCl 300 mg capsule TAKE 1 CAPSULE EVERY 12 HOURS BY ORAL ROUTE FOR 7 DAYS. 04/02 completed Not Available Not Available Not Available azithromyci n 250 mg tablet TAKE 2 TABLETS TODAY, THEN 1 TABLET DAILY FOR 4 MORE DAYS 01/26 completed Not Available Not Available Not Available ofloxacin 0.3 % eye drops INSTILL 1 TO 2 DROPS IN THE AFFECTED EYE(S) EVERY 2 TO 4 HOURS WHILE AWAKE FOR 2 DAYS, THEN 1 TO 2 DROPS 4 TIMES DAILY FOR 5 DAYS. 04/02 completed Not Available Not Available Not Available benzonatate 200 mg capsule TAKE 1 CAPSULE (200 MG TOTAL) BY MOUTH 3 (THREE) TIMES A DAY NEEDED FOR COUGH. 04/02 completed Not Available Not Available Not Available clomiphene citrate 50 mg tablet TAKE 3 TABLETS BY MOUTH ONCE DAILY ON DAYS 10 14 OF CYCLE 06/13 completed Not Available Not Available Not Available valacyclovi r 1 gram tablet 01/26 completed Not Available Not Available Not Available cephalexin 250 mg capsule TAKE 1 CAPSULE 3 TIMES A DAY BY ORAL ROUTE FOR 10 DAYS. 01/26 completed Not Available Not Available Not Available hydrocodone 5 mg-acetamin ophen 325 mg tablet TAKE 1 - 2 TAB ORALLY EVERY 6 HOURS NEEDED FOR PAIN 12/31 completed Not Available Not Available Not Available fluconazole 200 mg tablet TAKE ONE TABLET BY MOUTH WEEKLY 01/26 completed Not Available Not Available Not Available metronidazo le 0.75 % (37.5 mg/5 gram) vaginal gel INSERT 1 APPLICATO RFUL INTO VAGINA ONCE DAILY AT BEDTIME X 5 DAYS THEN 1-2 TIMES WEEK FOR PREVENTIO N 2023 active Not Available Not Available Not Avai lable ondansetron HCl 4 mg tablet TAKE 1 TABLET (4 MG TOTAL) BY MOUTH EVERY 8 (EIGHT) HOURS. 01/26 completed Not Available Not Available Not Available prednisone 20 mg tablet TAKE 1 TABLET BY MOUTH TWICE DAILY 04/02 completed Not Available Not Available Not Available Pyridium 200 mg tablet Take 1 tablet 3 times a day by oral route for 2 days. 01/26 completed Not Available Not Available Not Available Diflucan 150 mg tablet Take 1 tablet by oral route once. May repeat dose in 72hrs if still symptomat ic. 2023 active Not Available Not Available Not Avai lable metronidazo le 500 mg tablet TAKE 1 TABLET EVERY 12 HOURS BY ORAL ROUTE FOR 7 DAYS. 12/31 completed Not Available Not Available Not Available phentermine 37.5 mg tablet TAKE 1 TABLET BY MOUTH ONCE DAILY 06/13 completed Not Available Not Available Not Available ciprofloxac in 500 mg tablet TAKE 1 TABLET BY MOUTH TWICE DAILY FOR 7 DAYS active Not Available Not Available No t Available sulfamethox azole 800 mg-trimetho prim 160 mg tablet TAKE 1 TABLET EVERY 12 HOURS BY ORAL ROUTE FOR 3 DAYS. 12/31 completed Not Available Not Available Not Available tramadol 50 mg tablet TAKE 1-2 TABLETS (50-100MG ) BY MOUTH EVERY 6 HOURS NEEDED FOR PAIN 12/31 completed Not Available Not Available Not Available ciclopirox 8 % topical solution APPLY NIGHTLY TO AFFECTED NAILS; REMOVE WEEKLY WITH RUBBING ALCOHOL 01/26 completed Not Available Not Available Not Available alprazolam 0.5 mg tablet TAKE 1 TABLET (0.5MG) BY MOUTH TWICE DAILY NEEDED FOR ANXIETY active Not Available Not Available No t Available omeprazole 10 mg capsule,del ayed release TAKE ONE CAPSULE BY MOUTH TWICE A DAY 12/31 completed Not Available Not Available Not Available cephalexin 500 mg capsule TAKE 1 CAPSULE 3 TIMES A DAY BY ORAL ROUTE FOR 7 DAYS. 01/26 completed Not Available Not Available Not Available oseltamivir 75 mg capsule TAKE 1 CAPSULE BY MOUTH TWICE DAILY FOR 5 DAYS 04/02 completed Not Available Not Available Not Available esomeprazol e magnesium 40 mg capsule,del ayed release TAKE 1 CAPSULE BY ORAL ROUTE 2 TIMES EVERY DAY active Not Available Not Available No t Available progesteron e micronized [address] 1 CAPSULE HIGH INTO VAGINA ONCE DAILY AT NIGHT BEFORE BED TO SUPPORT 06/13 completed Not Available Not Available Not Available gabapentin 300 mg capsule TAKE 1 CAPSULE BY MOUTH 3 TIMES DAILY active Not Available Not Available No t Available omeprazole 20 mg capsule,del ayed release TAKE ONE CAPSULE BY MOUTH DAILY 04/02 completed Not Available Not Available Not Available estradiol 2 mg tablet TAKE 1 TABLET BY MOUTH ONCE DAILY DIRECTED 06/13 completed Not Available Not Available Not Available hydroxyzine HCl 25 mg tablet TAKE 1 TABLET (25 MG TOTAL) BY MOUTH 2 (TWO) TIMES A DAY NEEDED FOR ANXIETY. active Not Available Not Available No t Available mometasone 0.1 % topical ointment APPLY TOPICALLY TO HANDS TWICE A DAY FOR 2 WEEKS ON THEN 2 WEEKS OFF active Not Available Not Available No t Available lorazepam 1 mg tablet active Not Available Not Available No t Available ibuprofen 600 mg tablet TAKE 1 TABLET (600 MG) BY MOUTH EVERY 6 HOURS. MAXIMUM OF 3200 MG IN 24 HOURS. 12/31 completed Not Available Not Available Not Available methylpredn isolone 4 mg tablets in a dose pack FOLLOW PACKAGE DIRECTION S. 12/31 completed Not Available Not Available Not Available albuterol sulfate HFA 90 mcg/actuati on aerosol inhaler INHALE 2 PUFFS BY MOUTH THREE TIMES A DAY FOR SEVEN DAYS 01/26 completed Not Available Not Available Not Available SSD 1 % topical cream APPLY 1 APPLICATI ON TOPICALLY 2 (TWO) TIMES A DAY. 01/26 completed Not Available Not Available Not Available betamethaso ne dipropionat e 0.05 % topical ointment APPLY TOPICALLY TO HANDS TWICE A DAY FOR 2 WEEKS THEN 2 WEEKS OFF 12/31 completed Not Available Not Available Not Available ondansetron 4 mg disintegrat ing tablet DISSOLVE 1-2 TABLETS (4-8 MG TOTAL) IN THE MOUTH EVERY 8 (EIGHT) HOURS NEEDED FOR NAUSEA OR VOMITING FOR UP TO 7 DAYS. active Not Available Not Available No t Available cefdinir 300 mg capsule TAKE 1 CAPSULE BY MOUTH TWICE DAILY 01/26 completed Not Available Not Available Not Available metformin ER 500 mg tablet,exte nded release 24 hr TAKE 1 TABLET BY MOUTH TWICE DAILY 04/02 completed Not Available Not Available Not Available sertraline 50 mg tablet TAKE ONE TABLET BY MOUTH DAILY 10/26 /2023 completed Not Available Not Available Not Available dicyclomine 10 mg capsule TAKE 1 CAPSULE (10 MG) BY MOUTH 3 TIMES DAILY 12/31 completed Not Available Not Available Not Available Vaniqa 13.9 % topical cream APPLY A THIN LAYER TO THE AFFECTED AREA TWICE DAILY 12/31 completed Not Available Not Available Not Available spironolact one 50 mg tablet TAKE 1 TABLET BY MOUTH DAILY active Not Available Not Available No t Available amoxicillin 875 mg-potassiu m clavulanate 125 mg tablet TAKE 1 TABLET BY MOUTH TWICE DAILY 04/02 completed Not Available Not Available Not Available oxycodone 5 mg tablet TAKE ONE TABLET BY MOUTH EVERY SIX HOURS NEEDED FOR PAIN 01/26 completed Not Available Not Available Not Available neomycin-po lymyxin-hyd rocort 3.5 mg-10,000 unit/mL-1 % ear drops,susp ADMINISTE R 4 DROPS INTO THE LEFT EAR 4 (FOUR) TIMES A DAY FOR 10 DAYS. 01/26 completed Not Available Not Available Not Available rho(D) immune globulin 1,500 unit (300 mcg) intramuscul ar syringe Inject 300 microgram s by intramusc ular route. 08/29 completed Not Available Not Available Not Available Senna Plus 8.6 mg-50 mg tablet TAKE 1 TABLET BY MOUTH 2 (TWO) TIMES A DAY. 12/31 completed Not Available Not Available Not Available nitrofurant oin monohydrate /macrocryst als 100 mg capsule TAKE 1 CAPSULE BY MOUTH EVERY 12 HOURS DIRECTED FOR 5 DAYS 12/31 completed Not Available Not Available Not Available Follistim AQ 900 unit/1.08 mL subcutaneou s cartridge 06/13 completed Not Available Not Available Not Available peg 3350-electr olytes 236 gram-22.74 gram-6.74 gram-5.86 gram solution DRINK 240 ML ORALLY EVERY 10 MINUTES; UNTIL FECAL EFFLUENT IS CLEAR 12/31 completed Not Available Not Available Not Available cholecalcif jered (vitamin D3) 1,250 mcg (50,000 unit) capsule TAKE 1 CAPSULE BY MOUTH ONCE A WEEK 08/29 completed Not Available Not Available Not Available Ocella 3 mg-0.03 mg tablet Take 1 tablet every day by oral route. 06/13 completed Not Available Not Available Not Available Probiotic active Not Available Not Michelle ilable Not Available Vitals Date Recorded Body height Body mass index (BMI) Body weight Systolic blood pressure Diastolic blood pressure Provider Name and Address Organization Details Last Updated DateTime 10/15/2020 167.64 cm 42 kg/m2 818087.0 2 g 122 mm[Hg] 84 mm[Hg] Ayden Sanders null, [facility] [employer] 1 16:03:22 Date Recorded Body height Body mass index (BMI) Body weight Heart rate Systolic blood pressure Diastolic blood pressure Provider Name and Address Organization Details Last Updated DateTime 1 167.64 cm 42.8 kg/m2 639376. 98 g 64 /min 128 mm[Hg] 85 mm[Hg] Kristincoleen Isaacsma(TE RM) null, [facility] [employer] 1 12:43:51 Date Recorded Body height Body mass index (BMI) Body weight Heart rate Systolic blood pressure Diastolic blood pressure Provider Name and Address Organization Details Last Updated DateTime 2 167.64 cm 38.1 kg/m2 409783. 8 g 66 /min 114 mm[Hg] 83 mm[Hg] Yessenia Veronica (TERMED) null, [facility] [employer] 2 10:13:03 Date Recorded Body height Systolic blood pressure Diastolic blood pressure Provider Name and Address Organization Details Last Updated DateTime 02/09/2022 167.64 cm 122 mm[Hg] 79 mm[Hg] Ayden Sanders null, [facility] [employer] 02/09/2022 09:45:24 Date Recorded Body height Body mass index (BMI) Body weight Heart rate Systolic blood pressure Diastolic blood pressure Provider Name and Address Organization Details Last Updated DateTime 3 167.64 cm 37.5 kg/m2 446249. 87 g 65 /min 118 mm[Hg] 81 mm[Hg] Ana Born null, [facility] [employer] 3 12:48:55 Date Recorded Body height Body mass index (BMI) Body weight Heart rate Systolic blood pressure Diastolic blood pressure Provider Name and Address Organization Details Last Updated DateTime 3 167.64 cm 37.1 kg/m2 835937. 81 g 55 /min 116 mm[Hg] 79 mm[Hg] Ana cunningham, [facility] [employer] 3 12:09:36 Date Recorded Body height Body mass index (BMI) Body weight Heart rate Systolic blood pressure Diastolic blood pressure Provider Name and Address Organization Details Last Updated DateTime 3 167.64 cm 36.3 kg/m2 471445. 56 g 63 /min 114 mm[Hg] 75 mm[Hg] Yazminbraden Duncan cunningham [facility] [employer] 3 12:47:27 Date Recorded Body height Body mass index (BMI) Body weight Heart rate Systolic blood pressure Diastolic blood pressure Provider Name and Address Organization Details Last Updated DateTime 3 167.64 cm 34.9 kg/m2 16763.6 7 g 64 /min 118 mm[Hg] 82 mm[Hg] Raegan Duncan cunningham, [place] - [employer] 3 09:58:03 Date Recorded Body height Body mass index (BMI) Body weight Heart rate Systolic blood pressure Diastolic blood pressure Provider Name and Address Organization Details Last Updated DateTime 3 167.64 cm 35.1 kg/m2 11265.7 g 63 /min 114 mm[Hg] 75 mm[Hg] Yazminbraden Duncan cunningham [facility] [employer] 3 13:26:28 Date Recorded Body height Body mass index (BMI) Body weight Heart rate Systolic blood pressure Diastolic blood pressure Provider Name and Address Organization Details Last Updated DateTime 4 167.64 cm 33.7 kg/m2 31072.3 7 g 64 /min 125 mm[Hg] 80 mm[Hg] Raegan cunningham [facility] [employer] 4 13:12:10 Date Recorded Body mass index (BMI) Body weight Body height Systolic blood pressure Diastolic blood pressure Provider Name and Address Organization Details Last Updated DateTime 01/22/2017 35.67 kg/m2 566104.9 1377 g 167.64 cm 118 mm[Hg] 78 mm[Hg] Not Available [facility] 0 05:07:23 Date Recorded Body mass index (BMI) Body height Body weight Systolic blood pressure Diastolic blood pressure Provider Name and Address Organization Details Last Updated DateTime 07/06/2017 37.77 kg/m2 167.64 cm 466756.6 1458 g 122 mm[Hg] 84 mm[Hg] Not Available [facility] 0 05:07:21 Date Recorded Body mass index (BMI) Body height Body weight Systolic blood pressure Diastolic blood pressure Provider Name and Address Organization Details Last Updated DateTime 04/26/2019 40.83 kg/m2 167.64 cm 725035.8 6961 g 110 mm[Hg] 80 mm[Hg] Not Available [facility] 0 05:07:22 Date Recorded Body height Body mass index (BMI) Body weight Systolic blood pressure Diastolic blood pressure Provider Name and Address Organization Details Last Updated DateTime 10/28/2012 167.64 cm 42.13 kg/m2 090240.6 0857 g 122 mm[Hg] 62 mm[Hg] Not Available [facility] 0 05:07:21 Date Recorded Body height Body temperature Systolic blood pressure Diastolic blood pressure Provider Name and Address Organization Details Last Updated DateTime 03/03/2018 167.64 cm 97.1 [degF] 122 mm[Hg] 90 mm[Hg] Not Available [facility] 0 05:07:22 Date Recorded Body weight Body height Body mass index (BMI) Systolic blood pressure Diastolic blood pressure Provider Name and Address Organization Details Last Updated DateTime 10/24/2015 44006.80 533 g 165.2016 cm 34.78 kg/m2 130 mm[Hg] 84 mm[Hg] Not Available [facility] 0 05:07:21 Date Recorded Body weight Body mass index (BMI) Body height Systolic blood pressure Diastolic blood pressure Provider Name and Address Organization Details Last Updated DateTime 02/07/2009 055864.7 9932 g 38.09 kg/m2 167.64 cm 126 mm[Hg] 72 mm[Hg] Not Available [facility] 0 05:07:24 Date Recorded Body weight Body mass index (BMI) Body height Systolic blood pressure Diastolic blood pressure Provider Name and Address Organization Details Last Updated DateTime 03/24/2010 222501.0 925 g 40.35 kg/m2 167.64 cm 124 mm[Hg] 68 mm[Hg] Not Available [facility] 0 05:07:22 Date Recorded Body mass index (BMI) Body weight Body height Systolic blood pressure Diastolic blood pressure Provider Name and Address Organization Details Last Updated DateTime 06/28/2017 37.93 kg/m2 486610.2 0695 g 167.64 cm 118 mm[Hg] 82 mm[Hg] Not Available [facility] 0 05:07:22 Date Recorded Body mass index (BMI) Body weight Body height Systolic blood pressure Diastolic blood pressure Provider Name and Address Organization Details Last Updated DateTime 01/15/2014 39.6 kg/m2 115985.9 8406 g 165.2016 cm 120 mm[Hg] 70 mm[Hg] Not Available [facility] 0 05:07:23 Date Recorded Body height Body mass index (BMI) Body weight Systolic blood pressure Diastolic blood pressure Provider Name and Address Organization Details Last Updated DateTime 02/24/2018 167.64 cm 44.39 kg/m2 859684.9 0175 g 136 mm[Hg] 94 mm[Hg] Not Available [facility] 0 05:07:23 Date Recorded Body weight Body mass index (BMI) Body height Systolic blood pressure Diastolic blood pressure Provider Name and Address Organization Details Last Updated DateTime 05/03/2019 714317.8 6961 g 40.83 kg/m2 167.64 cm 130 mm[Hg] 82 mm[Hg] Not Available [facility] 0 05:07:23 Date Recorded Body mass index (BMI) Body weight Body height Systolic blood pressure Diastolic blood pressure Provider Name and Address Organization Details Last Updated DateTime 03/11/2016 32.76 kg/m2 43564.25 111 g 167.64 cm 102 mm[Hg] 78 mm[Hg] Not Available [facility] 0 05:07:21 Date Recorded Body height Body weight Body mass index (BMI) Systolic blood pressure Diastolic blood pressure Provider Name and Address Organization Details Last Updated DateTime 03/15/2013 167.64 cm 384006.3 8568 g 42.61 kg/m2 122 mm[Hg] 76 mm[Hg] Not Available [facility] 0 05:07:22 Date Recorded Body height Provider Name an d Address Organization Details Last Updated DateTime 08/14/2019 167.64 cm Not Available [facility] 0 05:07:22 Date Recorded Body weight Body mass index (BMI) Body height Systolic blood pressure Diastolic blood pressure Provider Name and Address Organization Details Last Updated DateTime 06/21/2017 178145.2 0695 g 37.93 kg/m2 167.64 cm 124 mm[Hg] 84 mm[Hg] Not Available [facility] 0 05:07:24 Date Recorded Body weight Body height Body mass index (BMI) Systolic blood pressure Diastolic blood pressure Provider Name and Address Organization Details Last Updated DateTime 08/09/2019 397815.2 7724 g 167.64 cm 40.67 kg/m2 112 mm[Hg] 82 mm[Hg] Not Available [facility] 0 05:07:23 Date Recorded Body weight Body height Body mass index (BMI) Systolic blood pressure Diastolic blood pressure Provider Name and Address Organization Details Last Updated DateTime 02/23/2013 556490.3 8568 g 167.64 cm 42.61 kg/m2 128 mm[Hg] 80 mm[Hg] Not Available [facility] 0 05:07:23 Date Recorded Body mass index (BMI) Body height Body weight Systolic blood pressure Diastolic blood pressure Provider Name and Address Organization Details Last Updated DateTime 07/29/2017 38.41 kg/m2 167.64 cm 651549.9 8406 g 118 mm[Hg] 82 mm[Hg] Not Available [facility] 0 05:07:22 Date Recorded Body weight Body mass index (BMI) Body height Systolic blood pressure Diastolic blood pressure Provider Name and Address Organization Details Last Updated DateTime 05/25/2017 910142.2 0695 g 37.93 kg/m2 167.64 cm 114 mm[Hg] 76 mm[Hg] Not Available [facility] 0 05:07:23 Date Recorded Body mass index (BMI) Body height Body weight Systolic blood pressure Diastolic blood pressure Provider Name and Address Organization Details Last Updated DateTime 08/30/2019 40.19 kg/m2 167.64 cm 368675.5 0013 g 122 mm[Hg] 88 mm[Hg] Not Available [facility] 0 05:07:24 Date Recorded Body mass index (BMI) Body height Body weight Systolic blood pressure Diastolic blood pressure Provider Name and Address Organization Details Last Updated DateTime 04/13/2011 41.96 kg/m2 167.64 cm 902798.0 162 g 124 mm[Hg] 70 mm[Hg] Not Available [facility] 0 05:07:23 Date Recorded Body height Systolic blood pressure Diastolic blood pressure Provider Name and Address Organization Details Last Updated DateTime 03/28/2018 167.64 cm 124 mm[Hg] 84 mm[Hg] Not Available [facility] 10/12/2019 05:07:22 Date Recorded Body height Systolic blood pressure Diastolic blood pressure Provider Name and Address Organization Details Last Updated DateTime 04/03/2019 167.64 cm 118 mm[Hg] 78 mm[Hg] Not Available [facility] 10/12/2019 05:07:22 Date Recorded Body weight Systolic blood pressure Diastolic blood pressure Provider Name and Address Organization Details Last Updated DateTime 01/09/2020 388536.130 65 g 112 mm[Hg] 78 mm[Hg] Karina Linkert (TERMED) null, [place] [facility] [employer] 01/09/2020 15:47:10 Date Recorded Body weight Systolic blood pressure Diastolic blood pressure Provider Name and Address Organization Details Last Updated DateTime 02/06/2020 549699.101 332 g 102 mm[Hg] 77 mm[Hg] Jayne Hamilton (TERMED) null, [place] - [facility] [employer] 02/06/2020 12:42:40 Date Recorded Body weight Systolic blood pressure Diastolic blood pressure Provider Name and Address Organization Details Last Updated DateTime 03/05/2020 425639.130 65 g 112 mm[Hg] 80 mm[Hg] Karina Linkert (TERMED) null, [place] [facility] [employer] 03/05/2020 10:15:35 Date Recorded Body weight Systolic blood pressure Diastolic blood pressure Provider Name and Address Organization Details Last Updated DateTime 03/19/2020 817571.907 76 g 118 mm[Hg] 80 mm[Hg] Karina Linkert (TERMED) null, [place] [facility] [employer] 03/19/2020 10:28:48 Date Recorded Body height Body mass index (BMI) Body weight Systolic blood pressure Diastolic blood pressure Provider Name and Address Organization Details Last Updated DateTime 03/20/2020 167.64 cm 40 kg/m2 802621.9 0776 g 104 mm[Hg] 74 mm[Hg] Delilah Bustos TERMED null, [facility] [employer] 1 15:39:49 Date Recorded Body height Body mass index (BMI) Body weight Systolic blood pressure Diastolic blood pressure Provider Name and Address Organization Details Last Updated DateTime 05/02/2020 167.64 cm 40.2 kg/m2 197926.5 0013 g 120 mm[Hg] 68 mm[Hg] Susan Grimm null, [place] - [facility] [employer] 09:52:27 Date Recorded Body height Body mass index (BMI) Body weight Systolic blood pressure Provider Name and Address Organization Details Last Updated DateTime 05/16/2020 167.64 cm 40.7 kg/m2 126838.27 724 g 120 mm[Hg] Susan Grimm [facility], [facility] 05/16/2020 12:20:43 Date Recorded Body height Body mass index (BMI) Systolic blood pressure Diastolic blood pressure Systolic blood pressure Diastolic blood pressure Provider Name and Address Organization Details Last Updated DateTime 167.64 cm 40.9 kg/m2 136 mm[Hg] 70 mm[Hg] 118 mm[Hg] 64 mm[Hg] Delilah SCHAEFER null, [place] [facility] [employer] 11:34:45 Date Recorded Body weight Provider Name an d Address Organization Details Last Updated DateTime 05/30/2020 905268.914164 g Elenita Zurita null, [facility] [employer] [employer] 05/30/2020 19:10:01 Date Recorded Body height Body mass index (BMI) Body weight Systolic blood pressure Diastolic blood pressure Provider Name and Address Organization Details Last Updated DateTime 06/13/2020 167.64 cm 41.5 kg/m2 341480.2 3909 g 102 mm[Hg] 60 mm[Hg] Susan Grimm [facility], [place] - [employer] 09:17:00 Date Recorded Body height Body mass index (BMI) Systolic blood pressure Diastolic blood pressure Provider Name and Address Organization Details Last Updated DateTime 06/26/2020 167.64 cm 42.1 kg/m2 116 mm[Hg] 78 mm[Hg] Ayden Sanders null, [place] - [employer] 06/26/2020 14:04:32 Date Recorded Body weight Provider Name an d Address Organization Details Last Updated DateTime 06/26/2020 3529[place].887[place] [id number] [facility],[address], [place], [address], [place] - [employer] 06/26/2020 14:28:57 Date Recorded Body height Body mass index (BMI) Body weight Systolic blood pressure Diastolic blood pressure Provider Name and Address Organization Details Last Updated DateTime 07/09/2020 167.64 cm 42.4 kg/m2 054169.7 9331 g 124 mm[Hg] 74 mm[Hg] Delilah cunningham [facility] [employer] 14:06:03 Date Recorded Body height Body mass index (BMI) Systolic blood pressure Diastolic blood pressure Provider Name and Address Organization Details Last Updated DateTime 07/23/2020 167.64 cm 42.8 kg/m2 122 mm[Hg] 80 mm[Hg] Ayden cunningham [facility] [employer] 07/23/2020 14:26:26 Date Recorded Body weight Provider Name an d Address Organization Details Last Updated DateTime 07/23/2020 127324.714[place] [address] [facility],[address], [place], [address], [facility] [employer] 07/23/2020 22:25:50 Date Recorded Body height Body mass index (BMI) Body weight Systolic blood pressure Diastolic blood pressure Provider Name and Address Organization Details Last Updated DateTime 07/30/2020 167.64 cm 42.1 kg/m2 910239.6 0857 g 112 mm[Hg] 76 mm[Hg] Blake cunningham [facility] [employer] 11:02:23 Date Recorded Body height Body mass index (BMI) Body weight Systolic blood pressure Diastolic blood pressure Provider Name and Address Organization Details Last Updated DateTime 08/08/2020 167.64 cm 43.4 kg/m2 959252.3 4753 g 134 mm[Hg] 76 mm[Hg] Ayden cunningham [place] - [employer] 10:11:04 Date Recorded Body height Body mass index (BMI) Systolic blood pressure Diastolic blood pressure Provider Name and Address Organization Details Last Updated DateTime 08/22/2020 167.64 cm 42.6 kg/m2 126 mm[Hg] 80 mm[Hg] Michael Rosen null, [facility] [employer] 08/22/2020 08:57:43 Date Recorded Body weight Provider Name an d Address Organization Details Last Updated DateTime 08/22/2020 823437.73319 g Lynnette Camp null, [facility] [employer] 08/22/2020 09:25:10 Date Recorded Body height Body mass index (BMI) Body weight Systolic blood pressure Diastolic blood pressure Provider Name and Address Organization Details Last Updated DateTime 09/24/2020 167.64 cm 41.2 kg/m2 341077.0 5 g 122 mm[Hg] 80 mm[Hg] Ayden Sanders null, [facility] [employer] 12:25:54 Date Recorded Body height Body mass index (BMI) Body weight Systolic blood pressure Diastolic blood pressure Provider Name and Address Organization Details Last Updated DateTime 10/02/2020 167.64 cm 41.2 kg/m2 509365.0 5 g 114 mm[Hg] 70 mm[Hg] Ayden Sanders null, [facility] [employer] 17:11:12 Date Recorded Systolic blood pressure Diastolic blood pressure Provider Name and Address Organization Details Last Updated DateTime 04/02/2020 118 mm[Hg] 82 mm[Hg] Jayne Hamilton (TERMED) null, [facility] [employer] 04/02/2020 10:30:04 Date Recorded Systolic blood pressure Diastolic blood pressure Provider Name and Address Organization Details Last Updated DateTime 05/27/2020 112 mm[Hg] 78 mm[Hg] Karina Gale (TERMED) null, [facility] [employer] 05/27/2020 14:25:59 Social History Question Answer Notes LastModified by Organizat ion Details LastModified Time Tobacco Smoking Status Never Smoker Tobacco *Status: Never Not Available [facility] 10/16/2019 11:59:10 Do You Have An Advance Directive? No Does Not Have A Health Directive Information not available 10/16/2019 What Is Your Level Of Alcohol Consumption? Occasional Socially Information not available 02/01/2023 How Many Times Per Week Do You Consume Alcohol? Less Than 1 Time Per Week Information not available 02/01/2023 Is Blood Transfusion Acceptable In An Emergency? Yes [email or web address] Information not available 01/26/2022 What Is Your Level Of Caffeine Consumption? None Information not available 02/01/2023 Are You Currently Employed? Yes [email or web address] Information not available 01/26/2022 What Type Of Diet Are You Following? GLUTENFREE No Sugar And Dairy Information not available 02/01/2023 What Is The Highest Grade Or Level Of School You Have Completed Or The Highest Degree You Have Received? 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 Less Than 1 Time Per Week Information not available 02/01/2023 History Of Domestic Violence No Denies Any History Of Domestic Violence Information not available 10/16/2019 Spouse/Partners Name Sekou Rivas Information not available 02/01/2023 Ethnic Background White Or [email or web address] Information not available 01/26/2022 Are You Passively Exposed To Smoke? No Information not available 02/01/2023 Performs Monthly Self-breast Exam? No Does Not Perform Monthly Breast Exams Information not available 01/21/2021 What Is Your Relationship Status? [email or web address] Information not available 01/26/2022 Are You Sexually Active? Yes Currently Sexually Active Information not available 01/21/2021 Do You Use Any Illicit Or Recreational Drugs? No Information not available 02/01/2023 Has Tobacco Cessation Counseling Been Provided? Yes Information not available 02/01/2023 On What Date Was Tobacco Cessation Counseling Provided? 02/01/2023 Information not available 02/01/2023 Are You Currently In School? No [email or web address] Information not available 01/26/2022 Sex: Female Functional Status Question Answer Note LastModified by Organization D etails LastModified Time What is your exercise level? None Information not available 02/01/2023 Mental Status None recorded. Family History Relationship Description Onset Age of this Age Resolved Age Notes Notes:No pertinent family hi story Medical History Condition Response Weight Management/Obesity Y Endocrinology- Vitamin Deficiency Y Gynecological History Statement/Question Response History of Endometriosis N History of Abnormal PAP N History of Recurrent Ovarian Cysts N HPV Test Negative Date of Last Mammogram 07/01/2022 Total lifetime partners More than 5 Date of LMP 01/24/2023 Sexual Orientation Heterosexual Date of Last Diabetes Screening 01/27/20 22 History of Infertility Y Date of last bone density Sexually Active Y Age at Menarche: 14 Date of Last Colonoscopy Age at first intercourse 18 History of Sexually Transmitted Infectio n N Current Control Method Tubal Ligat ion History of Fibroids N Date of Last Pap Smear 01/26/2022 History of PCOS Y Date of Last Cholesterol Screening 01/26 Obstetrics History GPAL:G 3 P 2 0 1 2 Type Value Multiple Births 0 Full Term 2 Induced 0 Spontaneous 1 Premature 0 Living 2 Ectopics 0 Total 3 Immunizations Vaccine Type Date Status Provider Name and Address Organization Details Recorded Time Tdap 07/23/2020 completed KRISTA Duque [employer] 07/23/2020 15:22:22 Tdap 11/22/2017 completed Not Available [facility] 05:09:39 Tdap 01/15/2014 completed Not Available [facility] 05:09:39 influenza, injectable, quadrivalent, preservative free 11/22/2017 completed KRISTA Britton [employer] 01/21/2021 11:39:02 Past Encounters Encounter ID Performer Location Encounter Start Date Encounter Closed Date Diagnosis/Indication [id number] TEENA LO MD [id number] [facility] [id number] [place] [id number] 01/09/2020 14:26:08 01/09/2020 17:28:44 Routine care [id number] MAURISIO FRAIRE PA-C [id number]_[facility] [id number] [place] [address] 01/09/2020 14:47:07 01/09/2020 16:01:59 Gestation period, 8 weeks Multigravida of advanced maternal age 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 History of section RhD negative Morbid obesity [id number] TEENA LO MD [id number]_[facility] [id number] [place] [address] 02/06/2020 12:12:48 02/07/2020 09:27:44 Sinusitis screening [id number] MAURISIO FRAIRE PA-C [id number]_ [facility] [id number] [place] [address] 03/05/2020 10:05:01 03/05/2020 10:44:40 [id number] MD SEAN TAYLOR001_[facility]_ [address] [address] 03/19/2020 10:21:47 03/19/2020 11:38:31 Irregular heart beat [id number] MD SEAN TAYLOR001_[facility] [address] 03/20/2020 15:31:39 03/20/2020 16:28:51 Mass of left breast Irregular heart beat [id number] MD SEAN TAYLOR001_[facility] [address] 04/02/2020 10:06:42 04/04/2020 10:00:40 [id number] MD SEAN [id number] [address] 04/02/2020 09:04:36 04/02/2020 09:52:32 screening [id number] MD JESSIE TAYLOR_[facility]_ [address] [address] 05/02/2020 09:04:54 05/02/2020 14:07:22 [id number] MD [address]LOR [address] [facility],[address] [address] 05/16/2020 10:39:26 05/21/2020 14:15:54 [id number] MD JANES TAYLOR [address] [address] 05/16/2020 10:39:28 05/16/2020 11:19:29 Low lying placenta [id number] SHERON YANG [address] [employer] [facility],[address] [address] 05/30/2020 10:02:15 05/30/2020 12:07:40 screening RhD negative Venereal disease screening High risk care Gestation period, 28 weeks Multigravida of advanced maternal age Low lying placenta [id number] MAURISIO FRAIRE PA-C [id number]_ [place] [address] [facility],[address] [address] 05/27/2020 14:20:27 05/27/2020 14:37:11 [id number] Teena Lo MD [id number]_ [address] [facility],[address] [address] 05/30/2020 10:02:15 05/30/2020 10:34:14 Low lying placenta [id number] Teena Lo MD [id number] COLLIN[employer]ware_[employer] MIRIAM [address] [place], [place] [address],[address] [address] 06/13/2020 09:01:05 06/13/2020 13:45:03 [id number] Teena Lo MD [id number] [facility]_[employer] [facility] [address] [place], [place] [address] [facility],[address] [address] 06/26/2020 13:19:07 06/26/2020 17:42:02 Morbid obesity [id number] Teena Lo MD [id number] [facility]_[employer] [facility] [address] [place], [place] [address],[address] [address] 06/26/2020 13:18:50 06/26/2020 13:57:29 Low lying placenta [id number] SHERON YANG [id number] [facility]_EMMANUEL MONSIVAISY [address] [place], [place] [address],[address] [place] [address] 07/09/2020 13:56:43 07/09/2020 14:39:17 High risk Gestation period, 34 weeks Multigravida of advanced maternal age [id number] Teena Lo MD [id number]_EZKTUB RAMONA_[employer] LOIY [address] [place], [place] [address],[address] [address] 07/23/2020 13:07:51 07/24/2020 11:29:55 Gestation period, 36 weeks Administration of diphtheria, pertussis, and tetanus vaccine [id number] Teena Lo MD [id number]_ZQIYMSANGELINA PINEDA [address] [employer],[address] [address] 07/23/2020 13:07:32 07/23/2020 13:48:23 Multigravida of advanced maternal age [id number] Teena Lo MD [id number]_MYGPFCANGELINA PINEDA [address] [place], [place] [address] [facility],[address] [address] 08/08/2020 09:04:02 08/08/2020 16:08:00 [id number] Robbin Kenny MD [id number]_HKFJGSANGELINA PINEDA [address] [place], [place] [address] [facility],[address] [address] 07/30/2020 10:12:03 07/30/2020 10:35:49 Multigravida of advanced maternal age [id number] SHERON YANG [id number]_ZAGFEOANGELINA ROYEMMANUEL MIRIAM [address] [place], [place] [address] [facility],[address] [address] 07/30/2020 10:11:58 07/30/2020 12:16:40 High risk Multigravida of advanced maternal age History of section Gestation period, 37 weeks [id number] Teena Lo MD [id number]_GGMJGFANGELINA PINEDA [address] [place], [place] [address] [facility],[address] [address] 08/08/2020 09:03:42 08/08/2020 09:36:46 Multigravida of advanced maternal age [id number] Teena Lo MD [id number]_CYMEOYANGELINA PINEDA [facility] [employer] [facility],[address] [address] 08/22/2020 08:45:32 08/26/2020 10:26:41 Acute sinusitis Postoperative visit Dysuria [id number] Teena Lo MD [id number]_AIAPAUANGELINA PINEDA [address] [place], [place] [address],[address] [address] 09/24/2020 11:48:37 09/24/2020 16:50:13 Postoperative care state, 6 weeks Morbid obesity [id number] Teena Lo MD EU022_QRWIHI ARTARNOLDO_EMMANUEL PINEDA [address] [address],[address] [place] [address] 10/02/2020 15:42:06 10/04/2020 16:43:50 Vaginal lesion Abscess of Bartholin's gland [id number] Teena Lo MD [id number]_PJFBDHANGELINA GREENE_EMMANUEL PINEDA [address] [employer],[address] [place] [address] 10/15/2020 15:30:11 10/16/2020 14:25:22 Increased frequency of urination Cyst of left Bartholin's gland duct [id number] DALE TY_ANGELINA VALLE [address] [place] [address],[address] [facility] [place] [address] 01/21/2021 11:28:35 01/21/2021 14:55:47 Anemia screening Hyperlipidemia screening Diabetes mellitus screening Thyroid disorder screening Gynecologic examination Screening for malignant neoplasm of cervix [id number] DALE TYPAUL VALLE [address] [place] [address],[address] [facility] [place] [address] 01/26/2022 09:45:51 01/26/2022 13:59:59 Gynecologic examination Screening for malignant neoplasm of cervix Anemia screening Diabetes mellitus screening Hyperlipidemia screening Obesity [id number] DALE TY_ANGELINA VALLE [address] [place] [address],[address] [facility] [place] [address] 02/09/2022 09:09:09 02/09/2022 12:13:47 Urgent desire to urinate [id number] DALE TYANGELINA VALLE [address] [place] [address],[address] [facility] [place] [address] 06/29/2022 12:18:15 06/29/2022 14:27:42 Pain of left breast [id number] DALE TY_ANGELINA VALLE [address] [place] [address],[address] [facility] [place] [address] 08/21/2022 11:49:34 08/21/2022 16:12:26 Urinary symptoms [id number] MAURISIO FRAIRE PA-C [id number]_PEFCOLANGELINA VALLE [address] [place] [address],[address] [facility] [place] [address] 12/31/2022 12:37:07 01/01/2023 09:13:14 Vaginitis Urinary symptoms [id number] MAURISIO FRAIRE PA-C WB992_WZUOFSANGELINA VALLE [address] [place] [address],[address] [facility] [place] [address] 02/01/2023 09:42:59 02/01/2023 13:58:01 Screening for malignant neoplasm of cervix Diabetes mellitus screening Hyperlipidemia screening Gynecologic examination Anemia screening Vaginal irritation Obesity Female hirsutism [id number] DALE TY003PAUL VALLE [address] [place] [address],[address] [facility] [place] [address] 02/12/2023 13:16:17 02/12/2023 15:10:47 Vaginitis [id number] MAURISIO FRAIRE PA-C WI121_BWTMTTANGELINA VALLE [address] [place] [address],[address] [facility] [place] [address] 04/02/2023 12:55:29 04/05/2023 13:42:55 Vaginitis Urinary symptoms Health Concerns Section Related Observation LastModified by Organization Detai ls LastModified Time None Recorded Concern Status LastModified by Organization Details LastModified Time None Recorded Advance Directives Directive N: Does Not have a Health Di rective Payers Encounter Date Sequence Insurance Name Policy Number Policy Silva Covered Member ID Silva Member ID Guarantor Name 04/02/[address] [facility] [id number] Shirley Rivas [id number] Henny Rivas 02/12/[address] [facility] [id number] Shirley Eckertt [id number] Henny Rivas 02/01/[address] [facility] [id number] Shirley Rivas [id number] Henny S Volkert 12/31/2022 1 [facility] [id number] Shirley S Volkert [id number] Henny S Volkert 08/21/2022 1 [facility] - [facility] [id number] Shirley S Volkert [id number] Henny S Volkert 06/29/2022 1 [facility] - [facility] [id number] Shirley S Volkert [id number] Henny S Volkert 02/09/2022 1 [facility] - [facility] [id number] Shirley S Volkert [id number] Henny S Volkert 01/26/2022 1 [facility] [id number] Shirley S Volkert [id number] Henny S Volkert 01/21/2021 1 [facility] [id number] Shirley S Volkert [id number] Henny S Volkert 10/15/2020 1 [facility] [id number] Shirley S Volkert [id number] Henny S Volkert 10/02/2020 1 [facility] [id number] Shirley S Volkert [id number] Henny S Volkert 09/24/2020 1 [facility] - [facility] [id number] Shirley S Volkert [id number] Henny S Volkert 08/22/2020 1 [facility] [id number] Shirley S Volkert [id number] Henny S Volkert 08/08/2020 1 [facility] - [facility] [id number] Shirley S Volkert [id number] Henny S Volkert 08/08/2020 1 [facility] - [facility] [id number] Shirley S Volkert [id number] Henny S Volkert 07/30/2020 1 [facility] - [facility] [id number] Shirley S Volkert [id number] Henny S Volkert 07/30/2020 1 [facility] - [facility] [id number] Shirley S Volkert [id number] Henny S Volkert 07/23/2020 1 [facility] [id number] Shirley S Volkert [id number] Henny S Volkert 07/23/2020 1 [facility] - [facility] [id number] Shirley S Volkert [id number] Henny S Volkert 07/09/2020 1 [facility] [id number] Shirley S Volkert [id number] Henny S Volkert 06/26/2020 1 [facility] [id number] Shirley S Volkert [id number] Henny S Volkert 06/26/2020 1 [facility] [id number] Shirley S Volkert [id number] Henny S Volkert 06/13/2020 1 [facility] - [facility] [id number] Shirley S Volkert [id number] Henny S Volkert 05/30/2020 1 [facility] - [facility] [id number] Shirley S Volkert [id number] Henny S Volkert 05/30/2020 1 [facility] [id number] Shirley S Volkert [id number] Henny S Volkert 05/27/2020 1 [facility] [id number] Shirley S Volkert [id number] Henny S Volkert 05/16/2020 1 [facility] [id number] Shirley S Volkert [id number] Henny S Volkert 05/16/[address] [facility] ([facility]) [id number] Shirley Montemayor Volkert [id number] Henny S Volkert 05/02/[address] [facility] ([facility]) [id number] Shirley S Volkert [id number] Henny S Volkert 04/02/[address] [facility] ([facility]) [id number] Shirley S Volkert [id number] Henny S Volkert 04/02/[address] [facility] ([facility]) [id number] Shirley S Volkert [id number] Henny S Volkert 03/20/[address] [facility] ([facility]) [id number] Shirley S Volkert [id number] Henny S Volkert 03/19/[address] [facility] ([facility]) [id number] Shirley S Volkert [id number] Henny S Volkert 03/05/[address] [facility] ([facility]) [id number] Shirley S Volkert [id number] Henny S Volkert 02/06/[address] [facility] ([facility]) [id number] Shirley S Volkert [id number] Henny S Volkert Notes Date Note Type Note Provider Name and Address Organization Details Recorded Time 01/09/2020 text/html HPI Notes: This is a G 3 , P 1011 , whose LMP was on 11/14/2019 . She is present today for an initial intra-uterine exam. Based on LMP , her EGA is 8 weeks, 0 days. RENÉ is 08/20/2020. RENÉ by LMP is consistent with ultrasound . Ultrasound was done at 8 weeks. She was 14 years old when menses started. Her cycles are regular . Her periods range between 30-40 days apart. Is there any history of STD's: no . Pap smear history: last pap smear was done _DATE_ 08/30/2019. History of abnormal: no . Since her LMP she has experienced nausea, fatigue, metalic taste. Patient partner's name is Torsten and he* is involved* . Genetic testing was discussed today and the patient is undecided if she wants testing done . MAURISIO FRAIRE PA-C [address] [facility] [address], [place], [address], [facility] [employer] 01/10/2020 12:33:55 02/06/2020 text/html HPI Notes: This is a G3 , P1011 , whose LMP was on ____ . She is present today for an initial intra-uterine exam. Based on LMP , her EGA is 11 weeks, 7 days. RENÉ is 08/20/2020. RENÉ by LMP is consistent with ultrasound . Ultrasound was done at ____ weeks. Information from initial OB visit on 01/09/2020 were reviewed. She was 14 years old when menses started. Her cycles are regular . Her periods range between 30-40 days apart apart. Is there any history of STD's: no . History of ____ was diagnosed ____. Pap smear history: last pap smear was done 08/30/2019. History of abnormal: no . Since her LMP she has experienced nausea, fatigue, metalic taste. Patient partner's name is Torsten and he* is involved* . Genetic testing was discussed today and the [place] ___[place] [id number] [facility] [address], [place], [address], [facility] [employer] 02/06/2020 21:28:42 03/20/2020 text/html HPI Notes: OB Pr oblem Reported by patient. Location: heart Onset/Timing: gradual Duration: persistent; lasting minutes at a time Quality: dull Severity: mild Context: worse when lying down Alleviating Factors: none Aggravating Factors: none Associated Symptoms: no abdominal pain; no cramping; no headache; [place] [address] [facility] [address], [place], [address], [facility] [employer] 03/20/2020 16:53:00 08/22/2020 text/html HPI Notes: Surge ry Date: 08/13/20. Patient presents for her post-operative evaluation. Surgical procedure: Section. Indication: repeat . The procedure was done by: Myself. [place] [address], [place], [address], [facility] [employer] 08/25/2020 15:00:11 09/24/2020 text/html HPI Notes: The p veronica presents for a exam. Delivery date: 08/13/20. Delivered by: Dr. Teena Lo. The baby was a boy, weight 7lb 2oz, Name of baby Gm. Gestational Diabetes: No Gestational Hypertension: No Last Tetanus Shot: 07/23/20 The patient is pumping and bottle feeding. The patient denies any breast lumps or issues. The patient's last Pap Smear was 02/06/2020. She had a repeat and bilateral salpingectomy. Depression: PHQ-9= 30GAD-7= 0. Infant(s) Status: Doing well She has not had any significant problems since her . The patient had permanent sterilization in the hospital. Other the patient has no other concerns to [place] [address], [place], [address], [facility] [employer] 09/24/2020 12:47:44 10/02/2020 text/html HPI Notes: Vagin al/ Vulvar Problem ([facility]) Reported by patient. Referred By: self * Location: internal; vaginal left * Quality: lesions * Severity: not applicable * Duration: 3 days * Context: * Associated Signs & Symptoms: no pelvic pain; no tearing pain; no stabbing pain; [place] [id number], [place], [address], [facility] [employer] 10/04/2020 09:47:41 10/15/2020 text/html HPI Notes: Vagin al/ Vulvar Problem ([facility]) Reported by patient. Referred By: self * Location: vulvar * Quality: bartholin cyst * Severity: mild * Duration: 2 weeks * Context: ; recent antibiotics * Associated Signs & Symptoms: painful intercourse Notes: cyst not gone. -Pt having urinary frequency, [place] [address] [facility],[address], [place], [address], [facility] [employer] 10/15/2020 20:10:10 01/21/2021 text/html HPI Notes: Abdulaziz cates Premenopausal ([facility]) Reported by patient. Patient Relationship To Practice: former patient returning Current Medical History: active medical problems stable; no recent surgeries or hospitalizations Relevant Family History: family history of breast cancer (aunt (50-65 years old)); no family history of ovarian cancer; no family history of uterine cancer; no family history of colon cancer; no family history of blood clots/DVT Menstrual History: Frequency of Menses: irregular; Since giving Contraceptive Method: Current Method Used: tubal sterilization; satisfied Sexually Active: Yes: spouse STI Screen: declines Health/Prevention: Seat Belt Use: yes; Tobacco Use: no; Safe at home: yes 40 year old female presents to clinic for an annual exam. She has not had a period since her son was born 5 months ago. She reports some irregular spotting. She was given a 10 day Prover[address] rx by Dr. Lo. Today is the last day of her prescription. MAURISIO FRAIRE PA-C [address] [facility],[address], [place], [address], [facility] [employer] 01/21/2021 16:20:58 01/26/2022 text/html HPI Notes: Abdulaziz cates Premenopausal ([facility]) Reported by patient. Patient Relationship To Practice: established patient Current Medical History: active medical problems stable; no recent surgeries or hospitalizations Relevant Family History: family history of breast cancer; no family history of ovarian cancer; no family history of uterine cancer; no family history of colon cancer; no family history of blood clots/DVT Menstrual History: Frequency of Menses: monthly; Duration of Flow: 5 days; Quantity of Flow: moderate; Clots: yes; Cramps: yes Contraceptive Method: satisfied: tubal sterilization Sexually Active: Yes: same partner STI Screen: declines Health/Prevention: Exercise: yes; Multivitamins: ; Vitamin D: yes; Adequate Calcium Intake: yes; Breast Self Exam: no; Seat Belt Use: ; Safe Sex yes; Tobacco Use: no; Safe at home: yes; Urinary Incontinence: yes; Mental Health Screen: normal Mammogram: up-to-date; August 2021 - normal Pap Smear +/- HPV Cotesting: up-to-date; 01/21/21 HPV NEG Colonoscopy: not applicable Patient has: Primary Care Physician: yes Pt presents to clinic for her annual exam. She has no concerns today. MAURISIO FRAIRE PA-C [address] [facility],[address], [place], [address], [facility] [employer] 01/26/2022 13:41:01 02/09/2022 text/html HPI Notes: Urina ry Symptoms ([facility]) Reported by patient. Patient Relationship to Practice: established patient Patient Presents For: a followup evaluation Pain Present In: lower abdomen/suprapubic area Patient First Noted Symptoms: 2 weeks ago Symptoms Noted To: be present intermittently Severity: moderate Significant Medical History Includes: History of UTI: occasional Previous Diagnostic Testing: urinalysis Associated Signs & Symptoms: frequency; urinary urgency; dysuria Previous Treatments: antibiotics Pt presents to clinic for an infection check. She reports bladder discomfort, frequency and urgency for the last 2 weeks. She was seen by Urgent Care and treated for a UTI but her symptoms did not resolve. She denies fever, chills, flank pain, discharge, itching, odor. MAURISIO FRAIRE PA-C [address] [facility],[address], [place], [address], [facility] [employer] 02/09/2022 12:13:14 06/29/2022 text/html HPI Notes: Breas t Pain ([facility]) Reported by patient. Referred By: self Left Breast: upper inner quadrant; present at 9 o'clock * Quality: achy; dull * Severity: moderate * Duration: 3 weeks * Timing: intermittent * Context: mammogram date:08/27/2021 normal; no history of abnormal mammogram; no personal history of breast cancer * Associated Signs & Symptoms: no breast mass; no fever; no redness; no skin changes Pt presents to clinic for the evaluation of left breast pain. She describes the pain as dull and achy. The pain tends to come and go over the past 3 weeks lasting a few days at a time. Nothing seems to make the pain any better or worse. MAURISIO FRAIRE PA-C [address] [facility],[address], [place], [address], [facility] [employer] 06/29/2022 14:20:14 08/21/2022 text/html HPI Notes: Urina ry Symptoms ([facility]) Reported by patient. Patient Relationship to Practice: established patient Patient Presents For: a followup evaluation Reason for Visit: frequent urination Pain Present In: lower abdomen/suprapubic area Type of Pain: dull pain Patient First Noted Symptoms: 2 weeks ago Symptoms Noted To: begin gradually Severity: moderate Significant Medical History Includes: History of UTI: occasional Previous Diagnostic Testing: urine culture Associated Signs & Symptoms: frequency; urinary urgency; no fever/chills Previous Treatments: prescription medications Pt presents to clinic for evaluation of possible infection. She was seen by her PCP for abdominal pain and was diagnosed with a UTI recently and treated with Cipro x 1wk. Pt completed treatment on 08/17/22 but continues to have urinary urgency and frequency. She denies fever, chills, flank pain, dysuria, discharge, itching, odor. Back in February of 2022 pt states she had similar symptoms and had BV so she is not sure which is happening now. MAURISIO FRAIRE PA-C [address] [facility],[address], [place], [address], [facility] [employer] 08/21/2022 15:03:42 12/31/2022 text/html HPI Notes: Vagin al/ Vulvar Problem ([facility]) Reported by patient. Referred By: self * Location: internal; external; vaginal * Quality: itching; dryness; burning; discharge; irritation * Severity: moderate * Duration: 1 weeks * Timing: Onset: sudden * Context: previous vaginitis (in ); monistat made it worse * Associated Signs & Symptoms: no fever/chills; no pelvic pain; urinary symptoms; no vulvar lesion; itching; burning; Discharge, irritation * Modifying Factors (Symptomatic): worse with enmm-abj-kcqkrvy products Pt presents to clinic for evaluation of possible infection. Pt reports burning with urination, itching, vaginal burning, discharge, dryness for the past week. She got her period on 12/28/22 and is still bleeding slightly. She did try treating last night with OTC Monistat but had severe burning. MAURISIO FRAIRE PA-C [address] [facility],[address], [place], [address], [facility] [employer] 12/31/2022 16:55:28 02/01/2023 text/html HPI Notes: Abdulaziz cates Premenopausal ([facility]) Reported by patient. Patient Relationship To Practice: established patient Current Medical History: active medical problems stable; no recent surgeries or hospitalizations Relevant Family History: family history of breast cancer (paternal aunt); no family history of ovarian cancer; no family history of uterine cancer; no family history of colon cancer Menstrual History: Frequency of Menses: regular Contraceptive Method: satisfied: sterilization Sexually Active: Yes: spouse STI Screen: declines Health/Prevention: Exercise: no; Multivitamins: yes; Vitamin D: yes; Adequate Calcium Intake: no; Breast Self Exam: no; Seat Belt Use: yes; Safe Sex yes; Tobacco Use: no; Safe at home: yes; Urinary Incontinence: no Mammogram: up-to-date Pap Smear +/- HPV Cotesting: due Thyroid/Lipid Screening: due Colonoscopy: not applicable Patient has: Primary Care Physician: yes Pt presents to clinic for her annual exam. She reports vaginal irritation and would like to be checked for a vaginal infection today. MAURISIO FRAIRE PA-C [address] [facility],[address], [place], [address], [facility] [employer] 02/01/2023 13:11:28 02/12/2023 text/html HPI Notes: Vagin al/ Vulvar Problem ([facility]) Reported by patient. Referred By: self * Location: external; vaginal * Severity: mild * Duration: 4 days * Timing: Onset: sudden * Context: recent antibiotics (metrogel); previous vaginitis (02/01/23) * Associated Signs & Symptoms: no fever/chills; no pelvic pain; no vulvar lesion; no odor; no itching; burning; Discharge Pt presents to clinic for evaluation of possible vaginal infection. She reports vaginal burning with discharge since 02/08/23. Pt went on mini vacation and sat in a dirty hot tub that she feels may have contributed to her symptoms. Denies fever, chills, flank pain, dysuria, frequency, urgency, odor. MAURISIO FRAIRE PA-C [address] [facility],[address], [place], [address], [facility] [employer] 02/12/2023 15:04:54 04/02/2023 text/html HPI Notes: Vagin al/ Vulvar Problem ([facility]) Reported by patient. Referred By: self * Location: external; vaginal * Quality: itching; burning * Severity: moderate * Duration: 1 weeks * Timing: Onset: sudden * Context: premenopausal; recent antibiotics; previous vaginitis * Associated Signs & Symptoms: no fever/chills; no pelvic pain; no urinary symptoms; no vulvar lesion; no odor; itching; burning Pt presents to clinic for evaluation of possible vaginal infection. 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 Now she reports itching and burning for the last week. Denies fever, chills, odor, dysuria, frequency, urgency. She is ending her period today. MAURISIO FRAIRE PA-C [address] [facility],[address], [place], [address], [facility] [employer] 04/02/2023 17:15:44 OBGyn Episode Ob Episode Information Episode Created Date Number of Fetuses Patient Bloodtype Patient rh Status Prepregnancy Weight lbs Domestic Partner Domestic Partner Phone Father Name Fiber Worker Status 01/09/20 20 1 O Negative 245 Brighto n CLOSED Fetus Data First Name Last Name Admitted to NICU Weight (g) Sex Living Outcome Pediatric Complications Fetus ID Race Codes Race Delivery Type 3231.84 3 M true Full Term [id number] René Calculation Initial René Date Initial Exam Date Initial Exam Provider Initial Ultrasound Date Last Menstrual Period Date Ultra Sound Weeks Gestation 08/20/2020 01/09/2020 01/09/2020 11/14/2019 8 Eighteen To Twenty Week René Update Ultra Sound Date Fundal Height At Umbil Quickening Date Ultra Sound Latest Weeks Gestation Final René Confirmed By Final René Confirmed Date Final René Date Ultra Sound Latest Days Gestation 0 [email or web address] 01/09/2020 08/21/19 21 0 Pre-mar Flowsheet Flowsheet Date 01/09/2020 Pa Score Blood Edema Fundus Height Fundus Units Glucose Ketones Leukocytes Nitrite Labor Signs Protein Cervic Dilation Cervic Effacement Cervic Station Type Weight in lbs BP Diastolic BP Location Tested BP Systolic BP Type Fetus Heart Rate Present Fetus Movement Comments Flowsheet Date 01/09/2020 Pa Score Blood Edema Fundus Height Fundus Units Glucose Ketones Leukocytes Nitrite Labor Signs Protein Cervic Dilation Cervic Effacement Cervic Station neg none none negative none Negative none neg Type Weight in lbs BP Diastolic BP Location Tested BP Systolic BP Type 78 112 Fetus Heart Rate Present A 160 Present Fetus Movement A No Comments Pt reports nausea, fatigue, metallic taste. Denies VB, cramping/abd pain, dysuria. Urine dip: neg. Reviewed 1st OB packet. Infertility pt so continue Prometrium QHS until 10-12wks. Sent for OB lab. Considering screenings. Gave SAB precautions. RTC in 4wks. All questions answered. Flowsheet Date 02/06/2020 Pa Score Blood Edema Fundus Height Fundus Units Glucose Ketones Leukocytes Nitrite Labor Signs Protein Cervic Dilation Cervic Effacement Cervic Station neg 12 wks none negative none Negative neg Type Weight in lbs BP Diastolic BP Location Tested BP Systolic BP Type 77 102 Fetus Heart Rate Present A Present Fetus Movement Comments REV TESTING ADN WANTS REDO C SECT Flowsheet Date 03/05/2020 Pa Score Blood Edema Fundus Height Fundus Units Glucose Ketones Leukocytes Nitrite Labor Signs Protein Cervic Dilation Cervic Effacement Cervic Station neg none none negative none Negative none neg Type Weight in lbs BP Diastolic BP Location Tested BP Systolic BP Type 80 112 Fetus Heart Rate Present A 154 Present Fetus Movement A Yes Comments Pt is doing well. No concern s. Denies VB, cramping/abd pain, dysuria. +Flutters. Urine dip: neg. Sent for AFP. RTC in 4wks. All questions answered. Flowsheet Date 03/19/2020 Pa Score Blood Edema Fundus Height Fundus Units Glucose Ketones Leukocytes Nitrite Labor Signs Protein Cervic Dilation Cervic Effacement Cervic Station neg none 18 wks none negative none Negative neg Type Weight in lbs BP Diastolic BP Location Tested BP Systolic BP Type 80 118 Fetus Heart Rate Present A Present Fetus Movement Comments IRREGHEART RATE OVER WEEKEND AND CALLED AND HAS EVENT MONITER AND SHOULD GET RESULTSFROM US IN 2 WKS--WOULD LIKE AN ECHO ALSO--[facility]AS 2 WKS Flowsheet Date 03/20/2020 Pa Score Blood Edema Fundus Height Fundus Units Glucose Ketones Leukocytes Nitrite Labor Signs Protein Cervic Dilation Cervic Effacement Cervic Station neg none 18 wks none negative none Negative neg Type Weight in lbs BP Diastolic BP Location Tested BP Systolic BP Type 74 104 Fetus Heart Rate Present A Present Fetus Movement Comments INER AGAIN LAST LOU [facility] ANDAPPT WITH CARDS ON Wed [facility] BENAVIDEZ AND HER HUBBY ALSO GOES THERE--LEFT BREAST LUMP AT HOME BUT VERY DENSE SO US OF THAT AREA Flowsheet Date 04/02/2020 Pa Score Blood Edema Fundus Height Fundus Units Glucose Ketones Leukocytes Nitrite Labor Signs Protein Cervic Dilation Cervic Effacement Cervic Station Type Weight in lbs BP Diastolic BP Location Tested BP Systolic BP Type Fetus Heart Rate Present Fetus Movement Comments Flowsheet Date 04/02/2020 Pa Score Blood Edema Fundus Height Fundus Units Glucose Ketones Leukocytes Nitrite Labor Signs Protein Cervic Dilation Cervic Effacement Cervic Station neg none 20 wks none small none Negative neg Type Weight in lbs BP Diastolic BP Location Tested BP Systolic BP Type 82 118 Fetus Heart Rate Present A Present Fetus Movement A Yes Comments REV CARDS AND REC MPP CONSUL T FOR FU AND ALSO ECHOGENIC AREA HEART BUT REASURED STILL HAVING PVC Flowsheet Date 05/02/2020 Pa Score Blood Edema Fundus Height Fundus Units Glucose Ketones Leukocytes Nitrite Labor Signs Protein Cervic Dilation Cervic Effacement Cervic Station neg none small 1+ Negative trace Type Weight in lbs BP Diastolic BP Location Tested BP Systolic BP Type 68 120 Fetus Heart Rate Present Fetus Movement Comments Flowsheet Date 05/16/2020 Pa Score Blood Edema Fundus Height Fundus Units Glucose Ketones Leukocytes Nitrite Labor Signs Protein Cervic Dilation Cervic Effacement Cervic Station Type Weight in lbs BP Diastolic BP Location Tested BP Systolic BP Type Fetus Heart Rate Present Fetus Movement Comments Flowsheet Date 05/16/2020 Pa Score Blood Edema Fundus Height Fundus Units Glucose Ketones Leukocytes Nitrite Labor Signs Protein Cervic Dilation Cervic Effacement Cervic Station neg 27 wks none negative trace Negative none neg Type Weight in lbs BP Diastolic BP Location Tested BP Systolic BP Type 120 Fetus Heart Rate Present A Present Fetus Movement A Yes Comments REV [facility] CONSULT AND US TODAY ?[facility]ETA SUGGESTION ON US TODAY AND WILL DO ANOTHER US WITH [facility]--IF CONCERN OVER AC[facility]ETA THAN WANTS TO DEL AT [facility] TO AVOID RIOTS IN [place] AND CAN TRANSFER--SINUSITIS AND ON [employer]PA[employer] AND BETTER AND HAD MORE PVC AND THEN DX WITH SINUSITIS Flowsheet Date 05/27/2020 Pa Score Blood Edema Fundus Height Fundus Units Glucose Ketones Leukocytes Nitrite Labor Signs Protein Cervic Dilation Cervic Effacement Cervic Station none 28 cm none Type Weight in lbs BP Diastolic BP Location Tested BP Systolic BP Type 78 112 Fetus Heart Rate Present A 146 Present Fetus Movement A Yes Comments Pt presents to clinic for BP check. She had some left upper quadrant pain and was seen at [facility] ED and everything was normal. Her BP was 130's/80's so they advised her to follow up in clinic for BP check. She has an appt with [facility] on 06/06/20 for repeat ultrasound. RTC in 3 days for her scheduled 28wk visit. All questions answered. Flowsheet Date 05/30/2020 Pa Score Blood Edema Fundus Height Fundus Units Glucose Ketones Leukocytes Nitrite Labor Signs Protein Cervic Dilation Cervic Effacement Cervic Station Type Weight in lbs BP Diastolic BP Location Tested BP Systolic BP Type Fetus Heart Rate Present Fetus Movement Comments Flowsheet Date 05/30/2020 Pa Score Blood Edema Fundus Height Fundus Units Glucose Ketones Leukocytes Nitrite Labor Signs Protein Cervic Dilation Cervic Effacement Cervic Station neg none negative none Negative none neg Type Weight in lbs BP Diastolic BP Location Tested BP Systolic BP Type 70 136 64 118 Fetus Heart Rate Present A 144 Fetus Movement A Yes Comments Feeling well. U/S today show s placenta is 1.0 cm from os. EIF continues to be present. She has a follow up with [facility] on 06/06. Will continue restrictions. Baby is active. Just had first Covid vaccine so needs to wait on Tdap. PTL packet info reviewed. Spectra pump given. GTT: 116, HGB: 12.5, Antibody screen, Rhogam, and RPR done. All questions answered. RTC in 2 weeks. Flowsheet Date 06/13/2020 Pa Score Blood Edema Fundus Height Fundus Units Glucose Ketones Leukocytes Nitrite Labor Signs Protein Cervic Dilation Cervic Effacement Cervic Station neg none 31 wks none negative 1+ Negative none neg Type Weight in lbs BP Diastolic BP Location Tested BP Systolic BP Type 60 102 Fetus Heart Rate Present A Present Fetus Movement A Yes Comments REV DEL ADN PER MPP IF ACCRE TTA-DEL 34 WKS [facility] OR [facility]--IF LOW LYING 36 WKS--US GROWTH/BPP 2 WKS Flowsheet Date 06/26/2020 Pa Score Blood Edema Fundus Height Fundus Units Glucose Ketones Leukocytes Nitrite Labor Signs Protein Cervic Dilation Cervic Effacement Cervic Station Type Weight in lbs BP Diastolic BP Location Tested BP Systolic BP Type Fetus Heart Rate Present Fetus Movement Comments Flowsheet Date 06/26/2020 Pa Score Blood Edema Fundus Height Fundus Units Glucose Ketones Leukocytes Nitrite Labor Signs Protein Cervic Dilation Cervic Effacement Cervic Station neg none 33 wks none negative none Negative neg Type Weight in lbs BP Diastolic BP Location Tested BP Systolic BP Type 78 116 Fetus Heart Rate Present A Present Fetus Movement A Yes Comments REV US AND CSECT AND NO NICOLE EL AT 36 WKS Flowsheet Date 07/09/2020 Pa Score Blood Edema Fundus Height Fundus Units Glucose Ketones Leukocytes Nitrite Labor Signs Protein Cervic Dilation Cervic Effacement Cervic Station neg 34 none negative none Negative none neg Type Weight in lbs BP Diastolic BP Location Tested BP Systolic BP Type 74 124 Fetus Heart Rate Present A 152 Fetus Movement A Yes Comments Feeling well. No concerns. D iscussed BPP and growth ultrasound recommendations for 36 week visit as well as weekly BPP's at 37+. She will schedule these. Baby is active. All questions answered. RTC in 2 weeks. Flowsheet Date 07/23/2020 Pa Score Blood Edema Fundus Height Fundus Units Glucose Ketones Leukocytes Nitrite Labor Signs Protein Cervic Dilation Cervic Effacement Cervic Station Type Weight in lbs BP Diastolic BP Location Tested BP Systolic BP Type Fetus Heart Rate Present Fetus Movement Comments Flowsheet Date 07/23/2020 Pa Score Blood Edema Fundus Height Fundus Units Glucose Ketones Leukocytes Nitrite Labor Signs Protein Cervic Dilation Cervic Effacement Cervic Station neg none 36 wks none negative none Negative neg 0cm Type Weight in lbs BP Diastolic BP Location Tested BP Systolic BP Type 80 122 Fetus Heart Rate Present A Present Fetus Movement A Yes Comments rev would like to move csect up since baby wt higher and rba rev and will try to do Flowsheet Date 07/30/2020 Pa Score Blood Edema Fundus Height Fundus Units Glucose Ketones Leukocytes Nitrite Labor Signs Protein Cervic Dilation Cervic Effacement Cervic Station neg none negative 3+ Negative neg Type Weight in lbs BP Diastolic BP Location Tested BP Systolic BP Type 76 112 Fetus Heart Rate Present A Present Fetus Movement A Yes Comments Feeling well. No concerns to day. Baby is active. BPP: 10/13. All questions answered. RTC in 1 week. Flowsheet Date 08/08/2020 Pa Score Blood Edema Fundus Height Fundus Units Glucose Ketones Leukocytes Nitrite Labor Signs Protein Cervic Dilation Cervic Effacement Cervic Station Type Weight in lbs BP Diastolic BP Location Tested BP Systolic BP Type Fetus Heart Rate Present Fetus Movement Comments Flowsheet Date 08/08/2020 Pa Score Blood Edema Fundus Height Fundus Units Glucose Ketones Leukocytes Nitrite Labor Signs Protein Cervic Dilation Cervic Effacement Cervic Station neg 38 wks none negative 2+ Negative Cramping trace 0c m 0% -3 Type Weight in lbs BP Diastolic BP Location Tested BP Systolic BP Type 76 134 Fetus Heart Rate Present A Present Fetus Movement A Yes Comments ba and bpp=10/10 and surg re v and ques answered and def tubal Flowsheet Date 08/22/2020 Pa Score Blood Edema Fundus Height Fundus Units Glucose Ketones Leukocytes Nitrite Labor Signs Protein Cervic Dilation Cervic Effacement Cervic Station Type Weight in lbs BP Diastolic BP Location Tested BP Systolic BP Type 80 126 Fetus Heart Rate Present Fetus Movement Comments Menstrual History Last Menstrual Date Menses Monthly On Bcp Conception Prior Menses Frequency Hcg Plus Date Menarche Onset Age 0911/14/2019 Plans and Education First Trimester Discussed Date Discussion Item Discussion Note Discuss ed By Second Trimester Discussed Date Discussion Item Discussion Note Discuss ed By 05/31/2020 Signs and symptoms of labor rverby 05/31/2020 Abnormal lab values rverby 05/31/2020 Selecting a care provider rver 05/31/[address] anning/tubal sterilization rver Third Trimester Discussed Date Discussion Item Discussion Note Discuss ed By 05/31/2020 Anesthesia plans rver05/31/2020 movement monitoring rv erby 05/31/2020 Labor signs rver05/31/2020 Signs and symptoms of preeclampsia rver05/31/2020 Postterm counseling rver05/31/2020 Circumcision rver05/31/2020 rver05/31/2020 depression rver05/31/2020 education (n ewborn screening, jaundice, SIDS/safe sleeping position, car seat) rver05/31/2020 [facility] or [facility] Delivery Information Delivery Date Delivery Type Labor Anesthesia Weeks Gestation Incision Type Labor Labor Length Hrs Delivered By Post Complications Tubal Sterilization Discharge Date Comments Regional-Sp inal 39 Teena Lo MD 08/13 Discharge Information Feeding Method Contraceptive Method Maternal HG B and HCT Levels
--- OUTSIDE RECORDS SUMMARY | 2023-04-06 19:21 | XMS_ITS | Continuity of Care Document ---
Author Name Unknown Address [address] [place] [address] Phone [phone] Organization [facility] - COMMUNICATIONS TECHNICIAN, [id number] Address [address] [address] Care Team Providers Care Construction Manager Name Role Phone JAMALCHRISTY TEENA Truck Trailer Final Inspector NORMA MCNULTY Primary Care Provider [phone] Assessment No assessment recorded. Plan of Treatment Reminders Order Date Submit Date Provider Last Modified By Organization Details Last Modified Time Details Appointments G_OFFICE VISIT 2023 11:30A M MAURISIO FRAIRE PA-C Not available Not available Not available Lab urinalysi s, dipstick, auto 2022 023 [email or web address] [id number] rtners_lilyda le, [address] [facility], [address], [place], [address], 02/12/2023 13:45:18 bacterial vaginosis + vaginitis panel, vaginal 2022 023 BELTRAN [id number] [facility]lilyda le, [address] [facility], [facility] [address], [place], [address], 02/12/2023 14:41:00 Referral None recorded. Procedures None recorded. Surgeries None recorded. Imaging None recorded. Medication Orders clindamyc in HCl 300 mg [facility] 2022 [facility]23 [facility] [address], [place], [address], 04/02/2023 13:07:00 Metrogel Vaginal 0.75 % (37.5 mg/5 gram) 2022 023 maryamiehic [facility], [address] [place] [address], [place], [address], 04/02/2023 13:07:10 Patient TargetsNo targets recorded. Patient Instructions Encounter Date Encounter Id Patient Instructions Last Modified By Organization Details Last Modified Time 02/12/2023 [id number] Sent BDAffirm. Notified pt swab is positive for BV and sent script. Plan to treat and then can try MetroGel 1-2x/wk maintenance to prevent reoccurance. Cotton underware only. Do no wear underware at night. Avoid feminine wipes, douches, pantyliner use. Change clothes immediately after exercising. All questions answered. [email or web address] Not available 02/12/2023 15:04:28 Reason for Referral Maternal & Medicine Re ferral for consult- ECHOGENIC AREA HEART NOTED AT [facility] Referring Physician: Teena Hargrove, COMMUNICATIONS TECHNICIAN, Encounter Date: 04/09/2020 Results Created Date Observation Date Name Description Value Unit Range Abnormal Flag LastModifiedBy Organization Detail LastModifiedTime 02/13/2002/12/2023 bacte rial vagin osis + vagin itis panel , vagin al gardnerella positi ve negati ve abnormal Not Available [id number] arnoldoyanethmonroegem [address], [address], 02/12/2023 11:30:51 02/13/20 23 02/12/2023 bacte rial vagin osis + vagin itis panel , vagin al trichomonas negati ve negati ve normal Not Available [id number] arnoldo[address], [address], 02/12/2023 11:30:51 02/13/20 23 02/12/2023 bacte rial vagin osis + vagin itis panel , vagin al avery negati ve negati ve normal Not Available [id number] carlos gibbons [address], [place], [address], 02/12/2023 11:30:51 02/13/20 23 02/12/2023 urina lysis , dipst ick, auto Unknown Analyte Clean Catch Not Available [id number] cralos gibbons [address], [place], [address], 02/12/2023 11:30:42 02/13/20 23 02/12/2023 urina lysis , dipst ick, auto Unknown Analyte negati ve Not Available [id number] [facility], [place], [address], 02/12/2023 11:30:42 02/13/20 23 02/12/2023 urina lysis , dipst ick, auto Unknown Analyte negati ve Not Available [facility], [place], [address], 02/12/2023 11:30:42 02/13/20 23 02/12/2023 urina lysis , dipst ick, auto Unknown Analyte negati ve Not Available [id number] [facility], [place], [address], 02/12/2023 11:30:42 02/13/20 23 02/12/2023 urina lysis , dipst ick, auto Unknown Analyte 1.020 Not Available [id number] debra destinee[address], [place], [address], 02/12/2023 11:30:42 02/13/20 23 02/12/2023 urina lysis , dipst ick, auto Unknown Analyte negati ve Not Available [id number] gibbons [address], [place], [address], 02/12/2023 11:30:42 02/13/20 23 02/12/2023 urina lysis , dipst ick, auto Unknown Analyte 7.5 Not Available [id number] debra shai [address], [place], [address], 02/12/2023 11:30:42 02/13/20 23 02/12/2023 urina lysis , dipst ick, auto Unknown Analyte negati ve Not Available [id number] gibbons [address], [place], [address], 02/12/2023 11:30:42 02/13/20 23 02/12/2023 urina lysis , dipst ick, auto Unknown Analyte negati ve Not Available [id number] gibbons [address], [place], [address], 02/12/2023 11:30:42 02/13/20 23 02/12/2023 urina lysis , dipst ick, auto Unknown Analyte negati ve Not Available [id number] gibbons [address], [place], [address], 02/12/2023 11:30:42 02/13/20 23 02/12/2023 urina lysis , dipst ick, auto Unknown Analyte dark yellow Not Available [id number] gibbons [address], [place], [address], 02/12/2023 11:30:42 02/13/20 23 02/12/2023 urina lysis , dipst ick, auto Unknown Analyte slight ly cloudy Not Available [id number] villafana_fartun bermeo [address] [facility], [place], [address], 02/12/2023 11:30:42 Result Notes None recorded. Problems Name Status Onset Date Resolution Date Notes Provider Name and Address Organization Details Recorded Time History of section Active 07/30/19 21 Blake Bustos null, [place] - [facility] COMMUNICATIONS TECHNICIAN 07/29/2020 17:15:34 Multigravida of advanced maternal age Active 07/30/19 21 Blake Lovingg null, [place] - [facility] COMMUNICATIONS TECHNICIAN 07/29/2020 17:15:41 Vitamin D deficiency Active Not Available Counts include 234 beds at the [facility] 10/12/2019 05:10:31 Problem Notes None recorded. Procedures Surgical History Date Name Laterality Status Provider Name and Address Organization Details Recorded Time 3 Date of Last Mammogram completed Olga Dow (TERMED) null, [place] - [facility] COMMUNICATIONS TECHNICIAN 07/01/2022 15:05:23 2 Date of Last Pap Smear completed Raegan Song null, [place] - [facility] COMMUNICATIONS TECHNICIAN 01/26/2023 12:30:03 8 section completed Not Available Counts include 234 beds at the [facility] 10/12/2019 05:09:17 Imaging Results None recorded. Procedure Notes None recorded. Medical Equipment None [...] DAY BY ORAL ROUTE FOR 10 DAYS. 11/16 /2021 completed Not Available Not Available Not Available [...] tablet TAKE ONE TABLET BY MOUTH DAILY 12/31 completed Not Available Not Available [...] Updated DateTime 3 167.64 cm 35.1 kg/m2 60352.7 g 63 /min 114 mm[Hg] 75 mm[Hg] Raegan cunningham, [place] - [facility]UNICATIONS TECHNICIAN 3 13:26:28 Social History Question Answer Notes LastModified by [...] Blood Transfusion Acceptable In An Emergency? Yes [email or web address] Information not available 01/26/2022 What Is Your Level Of Caffeine Consumption? None Information not available 02/01/2023 Are You Currently Employed? Yes Information not available 01/26/2022 What Type Of Diet Are You Following? GLUTENFREE No Sugar And Dairy Information not available 02/01/2023 What Is The Highest Grade Or Level Of School You Have Completed Or The Highest Degree You Have Received? 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 Less Than 1 Time Per Week Information not available 02/01/2023 History Of Domestic Violence No Denies Any History Of Domestic Violence Information not available 10/16/2019 Spouse/Partners Name Sekou Rivas Information not available 02/01/2023 Ethnic Background White Or [email or web address] Information not available 01/26/2022 Are You Passively Exposed To Smoke? No Information not available 02/01/2023 Performs Monthly Self-breast Exam? No Does Not Perform Monthly Breast Exams Information not available 01/21/2021 What Is Your Relationship Status? [email or web address] Information not available 01/26/2022 Are You Sexually Active? Yes Currently Sexually Active Information not available 01/21/2021 Do You Use Any Illicit Or Recreational Drugs? No Information not available 02/01/2023 Has Tobacco Cessation Counseling Been Provided? Yes Information not available 02/01/2023 On What Date Was Tobacco Cessation Counseling Provided? 02/01/2023 Information not available 02/01/2023 Are You Currently In School? No [email or web address] Information not available 01/26/2022 Sex: Female Functional Status Question Answer Note LastModified by Organization D etails LastModified Time What is your exercise level? None Information not available 02/01/2023 Mental Status None recorded. Family History Relationship Description Onset Age of this Age Resolved Age Notes Notes:No pertinent family hi story Medical History Condition Response Endocrinology- Vitamin Deficiency Y Weight Management/Obesity Y Gynecological History Statement/Question Response History of [...] Recorded Time Tdap 07/23/2020 completed [facility] COMMUNICATIONS TECHNICIAN 07/23/2020 15:22:22 Tdap 11/22/2017 completed Not Available [facility] 05:09:39 Tdap 01/15/2014 completed Not Available [facility] 05:09:39 influenza, injectable, quadrivalent, preservative free 11/22/2017 completed Heron cunninghamKRISTA - [facility] COMMUNICATIONS TECHNICIAN 01/21/2021 11:39:02 Past Encounters Encounter ID Performer Location Encounter Start Date Encounter Closed Date Diagnosis/Indication [id number] MAURISIO FRAIRE PA-C [id number] GREENE_[address],[facility] [address] [place] [address] 02/01/2023 09:42:59 02/01/2023 13:58:01 Screening for malignant neoplasm of cervix Diabetes mellitus screening Hyperlipidemia screening Gynecologic examination Anemia screening Vaginal irritation Obesity Female hirsutism [id number] MAURISIO FRAIRE PA-C [id number] GREENE[address],[facility] [address] [facility] [place] [address] 02/12/2023 13:16:17 02/12/2023 15:10:47 Vaginitis Health Concerns Section Related Observation LastModified by Organization Detai ls LastModified Time None Recorded Concern Status LastModified by Organization Details LastModified Time None Recorded Payers Encounter Date Sequence Insurance Name Policy Number Policy Silva Covered Member ID Silva Member ID Guarantor Name 02/12/2023 1 [facility] [id number] Shirley Rivas [id number] Henny Rivas Notes Date Note Type Note Provider Name and Address Organization Details Recorded Time 02/12/2023 text/html HPI Notes: Vaginal/ Vulvar Problem ([facility]) Reported by patient. Referred [...] dysuria, frequency, urgency, odor. MAURISIO FRAIRE PA-C [id number] [facility],[address], [place], [address], [place] - [facility] COMMUNICATIONS TECHNICIAN 02/12/2023 15:04:54 OBGyn Episode No OBEpisode recorded.
--- OUTSIDE RECORDS SUMMARY | 2023-04-06 19:21 | XMS_ITS | Continuity of Care Document ---
Author Name Unknown Address [address] [place] [address] Phone [phone] Organization [facility] [employer], [id number] Address [address] [place] [address] [place] [phone] Care Team Providers Care Audio Visual Equipment Rental Clerk Name Role Phone JAMALCHRISTY TEENA Certified Nurse NORMA MCNULTY Primary Care Provider Assessment No assessment recorded. Plan of Treatment Reminders Order Date Submit Date Provider Last Modified By Organization Details Last Modified Time Details Appointments G_OFFICE VISIT 2023 11:30A M MAURISIO FRAIRE PA-C Not available Not available Not available Lab urinalysi s, dipstick, auto 2023 024 [email or web address] [id number] rtners_lilyda le, [address] [facility], [address], [place], [address], 04/02/2023 13:55:52 bacterial vaginosis + vaginitis panel, vaginal 2023 024 [email or web address] [id number] rtners_lilyda le, [address] [facility], [place] [address], [place], [address], 04/02/2023 17:01:44 Referral None recorded. Procedures None recorded. Surgeries None recorded. Imaging None recorded. Medication Orders Diflucan 150 mg tablet 2023 024 [facility], [address] [facility], [place], [address], 04/02/2023 17:14:54 metronida zole 0.75 % (37.5 mg/5 gram) vaginal gel 2023 024 [facility], [address] [place] [address], [place], [address], 04/02/2023 17:14:55 Patient TargetsNo targets recorded. Patient Instructions Encounter Date Encounter Id Patient Instructions Last Modified By Organization Details Last Modified Time 04/02/2023 [id number] Sent BDAffirm. Notified pt that swab is positive for BV and sent scripts. RTC after completing Cipro to confirm UTI has fully resolved. Cotton underware only. Do no wear underware at night. Avoid feminine wipes, douches, pantyliner use. Change clothes immediately after exercising. All questions answered. [email or web address] Not available 04/02/2023 17:15:35 Reason for Referral Maternal & Medicine Re [facility] for consult- ECHOGENIC AREA HEART NOTED AT [facility] Referring Physician: Teena Hargrove, TELEVISION NEWS REPORTER, Encounter Date: 04/09/2020 Results Created Date Observation Date Name Description Value Unit Range Abnormal Flag LastModifiedBy Organization Detail LastModifiedTime 04/02/1904/02/2023 bacte rial vagin osis + vagin itis panel , vagin al gardnerella positi ve negati ve abnormal Not Available [id number] abrilmonroegem [address], [address], 04/01/2023 10:09:21 04/02/19 24 04/02/2023 bacte rial vagin osis + vagin itis panel , vagin al trichomonas negati ve negati ve normal Not Available [id number] [facility], [address], 04/01/2023 10:09:21 04/02/19 24 04/02/2023 bacte rial vagin osis + vagin itis panel , vagin al avery negati ve negati ve normal Not Available [id number] rtmanuel [address], [place], [address], 04/01/2023 10:09:21 04/02/19 24 04/02/2023 urina lysis , dipst ick, auto Unknown Analyte Clean Catch Not Available [id number] carlos felipe[address], [place], [address], 04/01/2023 10:09:28 04/02/19 24 04/02/2023 urina lysis , dipst ick, auto Unknown Analyte negati ve Not Available [id number] carlos villafana[address], [place], [address], 04/01/2023 10:09:28 04/02/19 24 04/02/2023 urina lysis , dipst ick, auto Unknown Analyte negati ve Not Available Puja villafana[address], [place], [address], 04/01/2023 10:09:28 04/02/19 24 04/02/2023 urina lysis , dipst ick, auto Unknown Analyte negati ve Not Available [id number] ledy[address], [place], [address], 04/01/2023 10:09:28 04/02/19 24 04/02/2023 urina lysis , dipst ick, auto Unknown Analyte 1.010 Not Available [id number]_jkwsa pa rtarnoldo[address], [place], [address], 04/01/2023 10:09:28 04/02/19 24 04/02/2023 urina lysis , dipst ick, auto Unknown Analyte trace Not Available [id number] pa rtnersrosanna [address], [place], [address], 04/01/2023 10:09:28 04/02/19 24 04/02/2023 urina lysis , dipst ick, auto Unknown Analyte 6.5 Not Available [id number]_udfqa pa rtnersrosanna [address], [place], [address], 04/01/2023 10:09:28 04/02/19 24 04/02/2023 urina lysis , dipst ick, auto Unknown Analyte negati ve Not Available [id number] rt[facility]igh[facility] hospitaldinesh [address], [place], [address], 04/01/2023 10:09:28 04/02/19 24 04/02/2023 urina lysis , dipst ick, auto Unknown Analyte 0.2 Not Available [id number] pa rtnersrosanna [address], [place], [address], 04/01/2023 10:09:28 04/02/19 24 04/02/2023 urina lysis , dipst ick, auto Unknown Analyte negati ve Not Available [id number] [facility], [place], [address], 04/01/2023 10:09:28 04/02/19 24 04/02/2023 urina lysis , dipst ick, auto Unknown Analyte negati ve Not Available [id number] rtarnoldoutah state hospitaldinesh [address], [place], [address], 04/01/2023 10:09:28 04/02/19 24 04/02/2023 urina lysis , dipst ick, auto Unknown Analyte yellow Not Available [id number] pa shai le [address] [facility] [address], [place], [address], 04/01/2023 10:09:28 04/02/19 24 04/02/2023 urina lysis , dipst ick, auto Unknown Analyte slight ly cloudy Not Available [id number]_ybogbpa shai le [address] [facility] [address] [place], [address], 04/01/2023 10:09:28 Result Notes None recorded. Problems Name Status Onset Date Resolution Date Notes Provider Name and Address Organization Details Recorded Time History of section Active 07/30/19 21 Blake Bustos null, [facility] [employer] 07/29/2020 17:15:34 Multigravida of advanced maternal age Active 07/30/19 21 Blake Bustos null, [facility] [employer]TER 07/29/2020 17:15:41 Vitamin D deficiency Active Not Available [facility] 10/12/2019 05:10:31 Problem Notes None recorded. Procedures Surgical History Date Name Laterality Status Provider Name and Address Organization Details Recorded Time 3 Date of Last Mammogram completed Olga Dow (TERMED) null, [facility] TE[employer] RE[employer]TER 07/01/2022 15:05:23 2 Date of Last Pap Smear completed Raegan Song null, [facility] TE[employer] 01/26/2023 12:30:03 8 section completed Not Available [facility] 10/12/2019 05:09:17 Imaging Results None recorded. Procedure [...] Updated DateTime 4 167.64 cm 33.7 kg/m2 76489.3 7 g 64 /min 125 mm[Hg] 80 mm[Hg] [facility] [employer] 4 13:12:10 Social History Question Answer Notes LastModified by Organizat ion Details LastModified Time Tobacco Smoking Status Never Smoker Tobacco *Status: Never Not Available [facility] 10/16/2019 11:59:10 Do You Have An Advance Directive? No Does Not Have A Health Directive Information not available 10/16/2019 What Is Your Level Of Alcohol Consumption? Occasional Socially Information not available 02/01/2023 How Many Times Per Week Do You Consume Alcohol? Less Than 1 Time Per Week Information not available 02/01/2023 Is Blood Transfusion Acceptable In An Emergency? Yes [email or web address] Information not available 01/26/2022 What Is Your Level Of Caffeine Consumption? None Information not available 02/01/2023 Are You Currently Employed? Yes Information not available 01/26/2022 What Type Of Diet Are You Following? GLUTENFREE No Sugar And Dairy Information not available 02/01/2023 What Is The Highest Grade Or Level Of School You Have Completed Or The Highest Degree You Have Received? 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 Less Than 1 Time Per Week Information not available 02/01/2023 History Of Domestic Violence No Denies Any History Of Domestic Violence Information not available 10/16/2019 Spouse/Partners Name Sekou Rivas Information not available 02/01/2023 Ethnic Background White Or [email or web address] Information not available 01/26/2022 Are You Passively Exposed To Smoke? No Information not available 02/01/2023 Performs Monthly Self-breast Exam? No Does Not Perform Monthly Breast Exams Information not available 01/21/2021 What Is Your Relationship Status? [email or web address] Information not available 01/26/2022 Are You Sexually Active? Yes Currently Sexually Active Information not available 01/21/2021 Do You Use Any Illicit Or Recreational Drugs? No Information not available 02/01/2023 Has Tobacco Cessation Counseling Been Provided? Yes Information not available 02/01/2023 On What Date Was Tobacco Cessation Counseling Provided? 02/01/2023 Information not available 02/01/2023 Are You Currently In School? No [email or web address] Information not available 01/26/2022 Sex: Female Functional [...] Recorded Time Tdap 07/23/2020 completed [facility] - [facility] [employer] 07/23/2020 15:22:22 Tdap 11/22/2017 completed Not Available [facility] 05:09:39 Tdap 01/15/2014 completed Not Available [facility] 05:09:39 influenza, injectable, quadrivalent, preservative free 11/22/2017 completed Heron [facility] [place] - [facility] [employer] 01/21/2021 11:39:02 Past Encounters Encounter ID Performer Location Encounter Start Date Encounter Closed Date Diagnosis/Indication [id number] MAURISIO FRAIRE PA-C [id number] [facility] [place] [address] [facility],[place] [address] [place] [address] 04/02/2023 12:55:29 04/05/2023 13:42:55 Vaginitis Urinary symptoms Health Concerns Section Related Observation LastModified by Organization Detai ls LastModified Time None Recorded Concern Status LastModified by Organization Details LastModified Time None Recorded Payers Encounter Date Sequence Insurance Name Policy Number Policy Silva Covered Member ID Silva Member ID Guarantor Name 04/02/2023 1 [facility] [id number] Shirley Rivas [id number] Henny Rivas Notes Date Note Type Note Provider Name and Address Organization Details Recorded Time 04/02/2023 text/html HPI Notes: Vaginal/ Vulvar Problem ([facility]) [...] ending her period today. MAURISIO FRAIRE PA-C [id number] [facility],[address], [place], [address], [place] - [facility] [employer] 04/02/2023 17:15:44 OBGyn Episode No OBEpisode recorded.
--- OUTSIDE RECORDS SUMMARY | 2023-04-06 19:22 | XMS_ITS | Clinical Summary ---
Author Name Unknown Organization [facility] Address [address] [place] [address] Care Team Providers Care Vascular Neurologist Name Role Phone Elsewhere, Pcp Primary Care Provider Unavailabl e Source Comments Patient records contain information from all sites at [facility]. For routine questions regarding patient records, call [phone] during business hours, M-F 8:00 AM - 5:00 PM Central Time. Record requests for emergency care only can be directed to [phone] at any time.[facility] Allergies No known active allergies Medications Medication Sig Dispensed Refills Start Date End Date Status cholecalciferol (VITAMIN D3) 50 mcg (2,000 Unit) tablet Take 50 mcg by mouth daily. 0 Active multivitamin tablet Take 1 tablet by mouth daily. 0 Active gabapentin (NEURONTIN) 300 mg capsuleIndications: Fibromyalgia Take 1 capsule (300 mg total) by mouth 3 (three) times a day. 90 capsule 1 07/10/2021 Active fluticasone propionate (FLONASE) 50 mcg/actuation nasal spray Administer 2 sprays into each nostril daily. 0 Active hydrOXYzine (ATARAX) 25 mg tabletIndications:A nxiety TAKE 1 TABLET (25 MG TOTAL) BY MOUTH 2 (TWO) TIMES A DAY NEEDED FOR ANXIETY. 60 tablet 0 09/12/2021 Active cetirizine (ZyrTEC) 10 mg tablet Take 10 mg by mouth 2 (two) times a day as needed. For allergies 0 Active acetaminophen (TYLENOL) 500 mg capsule Take 1,000 mg by mouth every 6 (six) hours as needed for pain. 0 Active spironolactone (ALDACTONE) 50 mg tablet Take 1 tablet (50 mg total) by mouth daily. 30 tablet 0 01/30/2022 Active ibuprofen (MOTRIN) 600 mg tablet TAKE 1 TABLET (600 MG) BY MOUTH EVERY 6 HOURS. MAXIMUM OF 3200 MG IN 24 HOURS. 0 Active cyclobenzaprine (FLEXERIL) 10 mg tabletIndications:P ain Rib,Strain Back Muscle Subsequent Take 1 tablet (10 mg total) by mouth 3 (three) times a day as needed for muscle spasms for up to 10 days. for muscle spams 30 tablet 0 06/01/2022 Active LORazepam (ATIVAN) 1 mg tablet Take 0.5 tablets (0.5 mg total) by mouth at bedtime as needed for anxiety. 10 tablet 0 06/09/2022 Active ALPRAZolam (XANAX) 0.5 mg tablet Take 1 tablet by mouth 2 (two) times a day as needed. 0 Active metroNIDAZOLE (METROGEL) 0.75 % (37.5mg/5 gram) vaginal gel INSERT 1 APPLICATORFUL INTO VAGINA ONCE DAILY AT BEDTIME X 5 DAYS THEN 1-2 TIMESWEEK FOR PREVENTION 0 02/12/2023 Active clindamycin (CLEOCIN) 300 mg capsule TAKE 1 CAPSULE EVERY 12 HOURS BY ORAL ROUTE FOR 7 DAYS. 0 02/12/2023 Active celecoxib (CeleBREX) 200 mg capsule Take 1 capsule by mouth 2 (two) times a day. 0 02/05/2023 Active TURMERIC ROOT EXTRACT ORAL Take 500 mg by mouth. 0 11/11/2022 Active psyllium husk-calcium 1-60 gram-mg capsule Take 0.4 g by mouth. 0 11/11/2022 Active MAGNESIUM GLYCINATE ORAL Take by mouth. 0 11/11/2022 Active lactobacillus combination no.4 3 billion cell capsule Take by mouth. 0 11/11/2022 Active benzonatate (TESSALON) 200 mg capsule Take 1 capsule (200 mg total) by mouth 3 (three) times a day as needed for cough. 12 capsule 0 03/10/2023 Active ciprofloxacin (CIPRO) 500 mg tabletIndications:U rinary Tract Infection Site Not Specified Take 1 tablet (500 mg total) by mouth 2 (two) times a day for 7 days. 14 tablet 0 03/30/2023 01/30/202 4 Active dicyclomine (BENTYL) 20 mg tablet Take 1 tablet (20 mg total) by mouth 4 (four) times a day for 10 days. 40 tablet 0 03/08/2023 4 ondansetron ODT (ZOFRAN-ODT) 4 mg disintegrating tablet Dissolve 1 tablet (4 mg total) in the mouth every 8 (eight) hours as needed for nausea or vomiting for up to 10 days. 12 tablet 0 03/10/2023 4 ondansetron ODT (ZOFRAN-ODT) 4 mg disintegrating tabletIndications:A bdominal Pain Dissolve 1-2 tablets (4-8 mg total) in the mouth every 8 (eight) hours as needed for nausea or vomiting for up to 7 days. 30 tablet 0 03/27/2023 4 Active Problems Problem Noted Date Diagnosed Date Bleeding Postcoital 01/30/2022 Morbid Obesity Body Mass Index 40.0-44.9 Adult 0 06/05/2021 Fibromyalgia 02/12/2021 Headache Benign 02/12/2021 Rhinitis Allergic 04/12/2006 Overview: Problem list name updated by automated process. Provider to review Encounters Date Type Department Care Team Description 03/30/2023 Orders Only Urgent Care, [facility], in [place], [place] [address] [place] [address] Mario Valle P.A.-CSona Urinary Tract Infection Site Not Specified (Primary Dx) 03/27/2023 10:14 AM [facility]ER - 03/27/2023 11:59 PM [facility] Hospital Encounter Department of Radiology in [place], [place] [address] [place] [address] Mario Valle P.A.-[place] Abdominal Pain Discharge Disposition: Home or Self Care 03/27/2023 9:00 AM [facility] CRE[facility]ER Office Visit Urgent Care, [facility], in [place], [place] [address] [place] [address] Mario Valle P.A.-C. Abdominal Pain (Primary Dx) Discharge Disposition: Home or Self Care 03/25/2023 9:23 AM SH[facility] CREASER - 03/25/2023 11:59 PM [facility] Hospital Encounter Department of Radiology, [facility], in [place], [place] [address] [place] [address] Ronal Henderson M.D. Johnson, David W, M.D. Pain Left Lower Quadrant Discharge Disposition: Home or Self Care 03/12/2023 8:27 AM [facility] CREASER - 03/12/2023 9:04 AM [facility] Emergency Department [address] [place] [phone] Wendy Calzada D.O. Dysphagia (Primary Dx); Foreign Body Swallowed Initial Discharge Disposition: Home or Self Care 03/11/2023 8:53 PM [facility] CREASER - 03/12/2023 2:30 AM [facility] Emergency [place] [facility] [address] [place] [phone] Boyd Lynn M.D. Lightheadedness (Primary Dx) Discharge Disposition: Home or Self Care 03/10/2023 8:44 AM SH[facility] CREASER - 03/10/2023 11:30 AM [facility] Emergency Department [address] [place] [phone] Jesus Manuel Hensley M.D. Influenza Like Illness (Primary Dx); Dehydration; Hypokalemia Discharge Disposition: Home or Self Care 03/08/2023 1:52 PM [facility] CREASER - 03/08/2023 4:01 PM [facility] Emergency [facility] Emergency Department [address] [place] [phone] Ronal Henderson M.D. Pain Left Lower Quadrant (Primary Dx); Pain Left Upper Quadrant; Abdominal Pain Discharge Disposition: Home or Self Care 03/08/2023 Nurse Triage [facility] in [place], [place] [address] [place] [phone] Suha Lea R.N. Med Question 03/02/2023 Clinical Communication Division of Gastroenterology in [place], [place] [address] [place] [address] Thaddeus Cosme M.D., Ph.D. 02/15/2023 1:45 PM [facility]ER Office Visit Urgent Care, [facility], in [place], [place] [address] [place] [phone] Lela Aguiar P.A.-C. Pain Epigastric (Primary Dx) Discharge Disposition: Home or Self Care from Last 3 Months Immunizations Name Administration Dates Next Due 4vHPV (discontinued) 01/09/2008 9vHPV 01/09/2008 Influenza TIV (IM) 11/22/2017, 3,01/09/2008,2006 Influenza, Injectable, Mdck, Preservative Free, Quadrivalent 11/30/2019 Influenza, Seasonal, Injectable 03/18/2012,01/08,04/15/2006 SARS-COV-2 (COVID-19) - MODERNA 06/27/2020,05/29 Tdap 07/23/2020, 8,01/15/2014,2006 influenza vaccine quad (FLUZONE/FLUARIX) (6 months and older)(PF) 11/23/2018,11/22/2017 Family History Medical History Relation Name Comments Diabetes Father Jesus Kumar Hyperlipidemia Father Jesus Kumar Hypertension Father Jesus Kumar Idiopathic polyneuropathy Mother Ewelina Kumar Unexplained Mother Ewelina Kumar Coronary artery disease Paternal Grandfather Angel garcia Relation Name Status Comments Father Jesus Kumar Alive Mother Ewelina Kumar Paternal Grandfather Angel Oviedoerson Social History Tobacco Use Types Packs/Day Years Used Date Smoking Tobacco: Never Passive Smoke Exposure: Never Smokeless Tobacco: Never Tobacco Cessation:Counseling Given: Not Answered Alcohol Use Standard Drinks/Week Comments Not Currently 0 (1 standard drink = 0.6 oz pure alcohol) Once a month or sometimes twice a month Humiliation, Afraid, Rape, and Kick questionnair e Answer Date Recorded Within the last year, have y ou been afraid of your partner or ex-partner? No 04/21/2021 Within the last year, have y ou been humiliated or emotionally abused in other ways by your partner or ex-partner? No Within the last year, have y ou been kicked, hit, slapped, or otherwise physically hurt by your partner or ex-partner? No 04/21/2021 Within the last year, have y ou been raped or forced to have any kind of sexual activity by your partner or ex-partner? No 04/21/2021 Social Connection and Isolat ion Panel [NHANES] Answer Date Recorded In a typical week, how many times do you talk on the phone with family, friends, or neighbors? More than three times a week 04/03/2022 How often do you get togethe r with friends or relatives? Once a week 04/03/2022 How often do you attend chur ch or hoahaoism services? 1 to 4 times per year 04/03/2022 Do you belong to any clubs o r organizations such as zoroastrian groups, unions, fraternal or athletic groups, or school groups? Yes 04/03/2022 How often do you attend meet ings of the clubs or organizations you belong to? 1 to 4 times per year 04/03/2022 Are you , , di vorced, , never , or living with a partner? 04/03/2022 AUDIT-C Answer Date Recorded Q1: How often do you have a drink containing alc ohol? Monthly or less 04/03/2022 Q2: How many drinks containi ng alcohol do you have on a typical day when you are drinking? 3 or 4 04/03/2022 Q3: How often do you have si x or more drinks on one occasion? Less than monthly 04/03/2022 Overall Financial Resource Strain (CARDIA) Answe r Date Recorded How hard is it for you to pa y for the very basics like food, housing, medical care, and heating? Not very hard 04/21/2021 PHQ-2 Answer Date Recorded PHQ-2 Score 0 12/10/2021 [facility] - Occupational Stress Questionnaire Answer Date Recorded Do you feel stress - tense, restless, nervous, or anxious, or unable to sleep at night because your mind is troubled all the time - these days? Rather much 04/03/2022 Exercise Vital Sign Answer Date Recorde d On average, how many days pe r week do you engage in moderate to strenuous exercise (like a brisk walk)? 0 days 04/03/2022 On average, how many minutes do you engage in exercise at this level? 20 min 04/03/2022 Hunger Vital Sign Answer Date Recorded Within the past 12 months, y ou worried that your food would run out before you got the money to buy more. Never true 04/21/19 22 Within the past 12 months, t he food you bought just didn't last and you didn't have money to get more. Never true 04/21/2021 PRAPARE - Transportation Answer Date Re corded In the past 12 months, has l ack of transportation kept you from medical appointments or from getting medications? No 03/09 In the past 12 months, has l ack of transportation kept you from meetings, work, or from getting things needed for daily living? No 04/03/2022 Housing Stability Vital Sign Answer Mark e Recorded In the last 12 months, was t here a time when you were not able to pay the mortgage or rent on time? No 04/03/2022 In the last 12 months, how many places have you lived? 1 04/03/2022 In the last 12 months, was t here a time when you did not have a steady place to sleep or slept in a jail (including now)? No 04/03/2022 Depression Answer Date Recor ded PHQ-9 Total Score (max 27) 3 04/23 Nutrition Answer Date Recorded Nutrition: EVOO Fat Source Yes 04/03 On average, how many serving s of fruits and vegetables do you eat per day (serving size is equal to 1 cup or approximately the size of a tennis ball)? 4-5 04/03/2022 Dental Answer Date Recorded Dental: Regular Dentist Yes 02/11/20 21 Employment Answer Date Recorded Employment status Employed and actively working without restrictions 04/21/2021 Education Answer Date Recorded What is the highest level of school you have completed or the highest degree you have received? Some college, no degree 02/10/2021 Sex and Gender Information Value Date Recorded Sex Assigned at Female 12/05/2020 12:09 PM CDT Gender Identity Female 12/05/2020 12:09 PM CDT Sexual Orientation Not on file Last Filed Vital Signs Vital Sign Reading Time Taken Comments Blood Pressure 117/81 03/27/2023 8:42 AM [facility]ER Pulse 94 03/27/2023 8:42 AM [facility] CREASER Temperature 36.2 ??C (97.2 ??F) 03/27/2023 8:42 AM CS T Respiratory Rate 16 03/12/2023 8:34 AM SH[facility] CREASER Oxygen Saturation 98% 03/27/2023 8:42 AM SHIRT CREASER Inhaled Oxygen Concentration - - Weight 95.8 kg (211 lb 4.8 oz) 03/27/2023 8:42 A M SH[facility] CREASER Height 169.4 cm (5' 6.69) 03/27/2023 8:42 AM CS T Body Mass Index 33.4 03/27/2023 8:42 AM SHIRT CREASER Plan of Treatment Health Maintenance Due Date Last Done Comments HIV Screening 1981 Hepatitis B Vaccines (1 of 3 - 3-dose series) 1981 Hepatitis C Screening 1981 HPV Vaccines (2 - 3-dose series) 02/06/2008 01/09/2008, 01/09/2008 COVID-19 Vaccine (2022- season) 2022 04/02/2022, 02/26/2021, 06/27/2020, Additional history exists Depression Screening (Annual PHQ-2) 03/08/2023 Mammogram 07/02/2023 07/01/2022, 06/0 03/2021 (Performed elsewhere) Cervical Cancer Screening 02/01/20262022, 01/26/2022, 01/23/2021 (Performed elsewhere) Lipid (Cholesterol) Screening 02/02/2028 02/01/2023, 01/26/2022 DTaP,Tdap,and Td Vaccines (5 - Td or Tdap) 07/23/2030 07/23/2020, 11/22/2017, 01/15/2014, Additional history exists Influenza Vaccine Completed 12/25/2022, , 11/30/2019, Additional history exists Pneumococcal vaccine (0-64 years) Aged Out No longer eligible based on patient's age to complete this topic Procedures Procedure Name Priority Date/Time Associated Diagnosis Comments TISSUE TRANSGLUTAMINASE (TTG) AB, IGA, S STAT 03/27/2023 11:44 AM [facility] CRE[facility]ER CELIAC DISEASE COMPREHENSIVE CASCADE STAT 03/27/2023 11:44 AM SH[facility] CREASER Abdominal Pain CT ABDOMEN PELVIS WITH IV CONTRAST RAD - Routine (most inpatients and all outpatients) 03/27/2023 10:35 AM SH[facility] CREASER Abdominal Pain TEST, POCT, U (LAB) STAT 03/27/2023 10:03 AM SH[facility] CREASER Abdominal Pain HC URINALYSIS AUTO W MICRO STAT 03/27/2023 10:03 AM [facility] CREASER URINALYSIS WITH MICROSCOPIC IF INDICATED, U STAT 03/27/2023 10:03 AM SHIRT CREASER Abdominal Pain BACTERIAL CULTURE, AEROBIC + SUSC, URINE STAT 03/27/2023 10:03 AM SH[facility] CREASER Abdominal Pain LIPASE, S/P STAT 03/27/2023 9:32 AM [facility] CREASER Abdominal Pain C-REACTIVE PROTEIN (CRP), S/P STAT 03/27/2023 9:32 AM [facility] CREASER Abdominal Pain COMPREHENSIVE METABOLIC PANEL, S/P STAT 03/27/2023 9:32 AM SH[facility] CREASER Abdominal Pain CBC WITH DIFFERENTIAL, B STAT 03/27/2023 9:32 AM SH[facility] CREASER Abdominal Pain FL ESOPHAGRAM SINGLE CONTRAST RAD - Routine (most inpatients and all outpatients) 03/25/2023 10:08 AM [facility] CREASER Pain Left Lower Quadrant TROPONIN T, 2H/6H, 5TH GEN, P Timed 03/12/2023 12:41 AM [facility] CREASER TROPONIN T, BASELINE, 5TH GEN, P STAT 03/11/2023 10:57 PM [facility]ER BASIC METABOLIC PANEL, S/P STAT 03/11/2023 10:57 PM [facility] CREASER CBC WITH DIFFERENTIAL, B STAT 03/11/2023 10:57 PM SH[facility] CREASER ECG STAT 03/10/2023 10:21 AM SH[facility] CREASER DX CHEST AP OR PA AND LATERAL 2 VIEWS RAD - Semiurgent (Fast; most ED patients; some inpatients) 03/10/2023 9:37 AM SH[facility] CREASER INFLUENZA A, B, RSV, PCR, POCT STAT 03/10/2023 8:49 AM [facility] CREASER SARS CORONAVIRUS 2, PCR RAPID, V STAT 03/10/2023 8:49 AM SH[facility] CREASER CBC WITH DIFFERENTIAL, B STAT 03/10/2023 8:39 AM [facility] CREASER BASIC METABOLIC PANEL, S/P STAT 03/10/2023 8:39 AM [facility] CREASER LIPASE, S/P STAT 03/08/2023 2:50 PM SH[facility] CREASER CBC WITH DIFFERENTIAL, B STAT 03/08/2023 2:50 PM [facility] CRE[facility]ER COMPREHENSIVE METABOLIC PANEL, S/P STAT 03/08/2023 2:50 PM [facility] CRE[facility]ER URINALYSIS WITH MICROSCOPIC STAT 03/08/2023 2:43 PM SH[facility] CREASER BASIC METABOLIC PANEL, S/P STAT 02/15/2023 2:35 PM SH[facility] CREASER Pain Epigastric CBC WITH DIFFERENTIAL, B STAT 02/15/2023 2:35 PM SH[facility] CREASER Pain Epigastric from Last 3 Months Results * Celiac Disease Comprehensive [place] (03/27/2023 11:44 AM SHIRT CREASER) HLA-DQA1 Locus Molecular 01:03, 05 Not Applicable 03/31/2023 2:18 PM SHIRT CREASER DBB8 HLA-DQB1 Locus Molecular 03:03, 06:03 Not Applicable 03/31/2023 2:18 PM SHIRT CREASER DBB8 Comment: DQ Serologic Equivalent: 9, 6 Celiac Gene Pairs Present? No 03/31/2023 2:18 PM SHIRT CREASER DBB8 Comment: Method: Molecular typing of HLA antigens performed using reverse SSOP and/or SSP methods, reported as serological equivalents and low to medium resolution molecular values. Based on the catalog of common, intermediate, and well-documented alleles in the world population (CWID 3.0 Yudi LINDSAY et.al, HLA. 2020:[id number]), certain intermediate or common alleles in some ethnicities may not be resolved. Kindly contact laboratory if ethnic specific resolution is required. CLIA: [id number] ??CLIA [place] Operator: KLAUS MANCUSO MD,PhD Immunoglobulin A (IgA), S 122 61 - 356 mg/dL 03/29/2023 2:59 PM SHIRT CREASER [facility] Celiac Disease Interpretation See Comment: Permissive genes absent and negative serology. Celiac disease extremely unlikely. 03/31/2023 10:53 PM SHIRT CREASER [facility] Blood (Blood, Venous) 03/27/2023 11:44 AM SHIRT CREASER 03/29/2023 8:00 AM SHIRT CREASER Narrative [facility] - 03/31/2023 10:53 PM SHIRT CREASER Specimen Information: Specimen ID: [id number] Specimen Type: Blood Specimen Collection Start Date: 03/27/2023 11:44 AM Specimen Received Date: 03/29/2023 ??8:00 AM Specimen ID: [id number] Specimen Type: Blood Specimen Collection Start Date: 03/27/2023 11:44 AM Specimen Received Date: 03/29/2023 ??6:42 AM Specimen ID: [id number] Specimen Type: Blood Specimen Collection Start Date: 03/27/2023 11:44 AM Specimen Received Date: 03/29/2023 ??7:40 AM Mario Valle P.A.-C. LAB BLOOD N ON ADD-ON [facility] [address] [place] [address] DBB8 [facility] [address] [place] [address] [facility] [address] [place] [address] [place] [facility] [place] [address] * tTG (Tissue Transglutaminase), Antibody, IgA (03/27/2023 11:44 AM SHIRT CREASER) Tissue Transglutaminase Ab, IgA, S <1.2 <4.0 (Negative ) U/mL 03/30/2023 12:34 PM SHIRT CREASER [facility] Blood 03/27/2023 11:4 4 AM SHIRT CREASER 03/29/2023 3:34 PM SHIRT CREASER Mario Valle P.A.-C. LAB BLOOD A DD-ON [place] [address] [place] [address] [place] [address] * CT Abdomen Pelvis with IV Contrast (03/27/2023 10:35 AM SHIRT CREASER) Anatomical Region Laterality Modality Abdomen, Pelvis, Abdominal R ST LOS, Abdominal ARZ LOS, Abdominal FLA LOS N/A Computed Tomography 03/27/2023 10:3 9 AM SHIRT CREASER Impressions 03/27/2023 11:01 AM SHIRT CREASER 1. Normal-appearing appendix. 2. No acute intra-abdominal/pelvic pathology, no CT findings to explain the patient's symptoms of right lower quadrant abdominal pain. Narrative 03/27/2023 11:01 AM SHIRT CREASER EXAM: CT ABDOMEN PELVIS WITH IV CONTRAST COMPARISON: 08/23/2022 FINDINGS: Lung bases: The bilateral bases are clear of airspace disease. Liver: Unchanged peripheral globular enhancing right lobe of liver hepatic hemangioma measuring approximately 5.8 cm in diameter. Unchanged similar appearing hepatic hemangioma on image 46 of series 3 measuring 18 mm in size in the lateral segment of the left lobe of the liver. There is a indeterminate but likely benign appearing rounded low attenuating structure in the right lobe of the liver on image 63 of series 3, stable. No suspicious enhancing hepatic masses. Gallbladder and Biliary Tree: No evidence of cholelithiasis. No biliary dilatation. Spleen: No focal lesion is identified. No evidence of splenomegaly. Pancreas: Normal enhancement. No focal lesion or ductal dilatation. Adrenal glands: No focal lesion identified. Kidneys, ureters, and bladder: Normal enhancement. No evidence of hydronephrosis or hydroureter. No suspicious mass lesion. No renal or ureteral calculi. GI tract: Normal-appearing appendix in the right lower quadrant on image [id number] of series 3. No small bowel or colon obstruction or pneumatosis. No free intraperitoneal air, free fluid, fluid collection, or abscess. There is a probable poorly enhancing uterine fundal fibroid on image 252 of series 3. Uterus and adnexa are otherwise normal. No abdominal or pelvic adenopathy. Bones: No lytic or blastic bone lesions. Procedure Note Sam Butts M.D. - 03/27/2023 EXAM: CT ABDOMEN PELVIS WITH IV CONTRAST COMPARISON: 08/23/2022 FINDINGS: Lung bases: The bilateral bases are clear of airspace disease. Liver: Unchanged peripheral globular enhancing right lobe of liver hepatichemangioma measuring approximately 5.8 cm in diameter. Unchanged similarappearing hepatic hemangioma on image 46 of series 3 measuring 18 mm insize in the lateral segment of the left lobe of the liver. There is a indeterminate but likely benignappearing rounded low attenuating structure in the right lobe of the liveron image 63 of series 3, stable. No suspicious enhancing hepatic masses. Gallbladder and Biliary Tree: No evidence of cholelithiasis. No biliarydilatation. Spleen: No focal lesion is identified. No evidence of splenomegaly. Pancreas: Normal enhancement. No focal lesion or ductal dilatation. Adrenal glands: No focal lesion identified. Kidneys, ureters, and bladder: Normal enhancement. No evidence ofhydronephrosis or hydroureter. No suspicious mass lesion. No renal orureteral calculi. GI tract: Normal-appearing appendix in the right lower quadrant on -505 of series 3. No small bowel or colon obstruction or pneumatosis. No free intraperitoneal air, free fluid, fluid collection, or abscess.There is a probable poorly enhancing uterine fundal fibroid on image 252of series 3. Uterus and adnexa are otherwise normal. No abdominal orpelvic adenopathy. Bones: No lytic or blastic bone lesions. IMPRESSION: 1. Normal-appearing appendix. 2. No acute intra-abdominal/pelvic pathology, no CT findings to explainthe patient's symptoms of right lower quadrant abdominal pain. Mario Valle P.A.-C. IMG CT PROC EDURES * (ABNORMAL) Urinalysis with Microscopic if Indicated (03/27/2023 10:03 AM SHIRT CREASER) Source Urine, Urine, Midstream 03/27/2023 10:17 AM SHIRT CREASER NPRG Clarity Clear Clear 03/27/2023 10:20 AM SHIRT CREASER NPRG Color Yellow 03/27/2023 10:20 AM SHIRT CREASER NPRG Comment: ----REFERENCE VALUE---- Colorless Yellow Chasity Blood Negative Negative 03/27/2023 10:20 AM SHIRT CREASER NPRG Nitrite Negative Negative 03/27/2023 10:20 AM SHIRT CREASER NPRG Leukocyte Esterase Small(A) Negative 03/27/2023 10:20 AM SHIRT CREASER NPRG Protein Negative mg/dL 03/27/2023 10:20 AM SHIRT CREASER NPRG Comment: ----REFERENCE VALUE---- Negative Trace Glucose Negative Negative mg/dL 03/27/2023 10:20 AM SHIRT CREASER NPRG Ketones, QI(U) Negative Negative mg/dL 03/27/2023 10:20 AM SHIRT CREASER NPRG Bilirubin Negative Negative 03/27/2023 10:20 AM SHIRT CREASER NPRG pH 7.0 5.0 - 8.0 03/27/2023 10:20 AM SHIRT CREASER NPRG Specific [place] 1.015 1.001 - 1.035 03/27/2023 10:20 AM SHIRT CREASER NPRG Urobilinogen 0.2 0.2 - 1.0 mg/dL 03/27/2023 10:20 AM SHIRT CREASER NPRG Urine (Urine, Midstream) 03/27/2023 10:03 AM SHIRT CREASER 03/27/2023 10:17 AM SHIRT CREASER Mario Valle P.A.-C. LAB URINE O RDERABLES [facility] [address] [place] [address], [facility] NPRG [place] [address] [place] [address] * (ABNORMAL) Microscopic Manual (03/27/2023 10:03 AM SHIRT CREASER) White Blood Cells Occ-3 /hpf 03/27/2023 10:32 AM SHIRT CREASER NPRG Comment: ----REFERENCE VALUE---- Males: 0-3 Females: 0-10 Unknown: 0-10 Red Blood Cells None Seen 0 - 2 /hpf 03/27/2023 10:32 AM SHIRT CREASER NPRG Squamous Cells Occ-3 /hpf 03/27/2023 10:32 AM SHIRT CREASER NPRG Bacteria Present(A) None Seen 03/27/2023 10:32 AM SHIRT CREASER NPRG Urine 03/27/2023 10:0 3 AM SHIRT CREASER 03/27/2023 10:17 AM SHIRT CREASER Mario Valle P.A.-C. LAB URINE O RDERABLES [facility] [address] [place] [address], [facility] NPRG [place] [address] [place] [address] * (ABNORMAL) Bacterial Culture, Aerobic + Susceptibility, Urine (03/27/2023 10:03 AM SHIRT CREASER) Urine Culture with mixed microbiota(A) 03/30/2023 6:38 AM SHIRT CREASER MKTO Urine Culture PSEUDOMONAS AERUGINOSA >100,000 cfu/mL (A) 03/30/2023 6:38 AM SHIRT CREASER [facility] Urine Culture KLEBSIELLA PNEUMONIAE COMPLEX 10,000-100,000 cfu/mL (A) 03/30/2023 6:38 AM SHIRT CREASER [facility] Urine (Urine, Midstream) 03/27/2023 10:03 AM SHIRT CREASER 03/27/2023 4:21 PM SHIRT CREASER Comment:Specimen Source Site : Urine Narrative Organism Antibiotic Method Susceptibility Pseudomonas aeruginosa Piperacillin + Tazobactam SUSCEPTIBILITY, REZA (MCG/ML) 8 mcg/mL: Susceptible Pseudomonas aeruginosa Ceftazidime SUSCEPTIBILITY, REZA (MCG/ML) 4 mcg/mL: Susceptible Pseudomonas aeruginosa Cefepime SUSCEPTIBILITY, REZA (MCG/ML) 4 mcg/mL: Susceptible Pseudomonas aeruginosa Meropenem SUSCEPTIBILITY, REZA (MCG/ML) <=0.25 mcg/mL: Susceptible Pseudomonas aeruginosa Gentamicin SUSCEPTIBILITY, REZA (MCG/ML) <=1 mcg/mL: Resistant Pseudomonas aeruginosa Tobramycin SUSCEPTIBILITY, REZA (MCG/ML) <=1 mcg/mL: Susceptible Pseudomonas aeruginosa Levofloxacin SUSCEPTIBILITY, REZA (MCG/ML) 2 mcg/mL: Intermediate Klebsiella pneumoniae complex Ampicillin SUSCEPTIBILITY, REZA (MCG/ML) 16 mcg/mL: Resistant Klebsiella pneumoniae complex Ampicillin + Sulbactam SUSCEPTIBILITY, REZA (MCG/ML) <=2 mcg/mL: Susceptible Klebsiella pneumoniae complex Piperacillin + Tazobactam SUSCEPTIBILITY, REZA (MCG/ML) <=4 mcg/mL: Susceptible Klebsiella pneumoniae complex Cefazolin SUSCEPTIBILITY, REZA (MCG/ML) <=4 mcg/mL: Susceptible Comment: The interpretation applies to uncomplicated urinary tract infections only. It also applies to these oral cephalosporins: cefuroxime, cephalexin, and cefprozil. Klebsiella pneumoniae complex Ceftazidime SUSCEPTIBILITY, REZA (MCG/ML) <=1 mcg/mL: Susceptible Klebsiella pneumoniae complex Ceftriaxone SUSCEPTIBILITY, REZA (MCG/ML) <=1 mcg/mL: Susceptible Klebsiella pneumoniae complex Cefepime SUSCEPTIBILITY, REZA (MCG/ML) <=1 mcg/mL: Susceptible Klebsiella pneumoniae complex Aztreonam SUSCEPTIBILITY, REZA (MCG/ML) <=1 mcg/mL: Susceptible Klebsiella pneumoniae complex Ertapenem SUSCEPTIBILITY, REZA (MCG/ML) <=0.5 mcg/mL: Susceptible Klebsiella pneumoniae complex Meropenem SUSCEPTIBILITY, REZA (MCG/ML) <=0.25 mcg/mL: Susceptible Klebsiella pneumoniae complex Gentamicin SUSCEPTIBILITY, REZA (MCG/ML) <=1 mcg/mL: Susceptible Klebsiella pneumoniae complex Tobramycin SUSCEPTIBILITY, REZA (MCG/ML) <=1 mcg/mL: Susceptible Klebsiella pneumoniae complex Levofloxacin SUSCEPTIBILITY, REZA (MCG/ML) <=0.12 mcg/mL: Susceptible Klebsiella pneumoniae complex Nitrofurantoin SUSCEPTIBILITY, REZA (MCG/ML) 128 mcg/mL: Resistant Klebsiella pneumoniae complex Trimethoprim + Sulfamethoxazole SUSCEPTIBILITY, REZA (MCG/ML) <=20 mcg/mL: Susceptible Mario Valle P.A.-C. LAB MICROBI OLOGY - GENERAL ORDERABLES [facility] [address] [place] [address], [facility] MK[facility] [place] [address] [place] [address] * Test, POCT, Urine (Lab) (03/27/2023 10:03 AM SHIRT CREASER) Test, POCT, U Negative 03/27/2023 10:25 AM SHIRT CREASER NPRG Urine (Urine, Midstream) 03/27/2023 10:03 AM SHIRT CREASER 03/27/2023 10:17 AM SHIRT CREASER Mario Valle P.A.-C. LAB POCT OR DERABLES - DEVICE Performing Organization Address City/[facility]/ZIP Co de Phone Number [facility] [address] [place] [address], [facility] NPRG [facility] [address] [place] [address] * CBC with Differential, Blood (03/27/2023 9:32 AM SHIRT CREASER) Only the most recent of5 resultswithin the time period is included. Hemoglobin 13.9 11.6 - 15.0 g/dL 03/27/2023 9:41 AM SHIRT CREASER NPRG Hematocrit 42.7 35.5 - 44.9 % 03/27/2023 9:41 AM SHIRT CREASER NPRG Erythrocytes 4.95 3.92 - 5.13 x10(12)/L 03/27/2023 9:41 AM SHIRT CREASER NPRG MCV 86.3 78.2 - 97.9 fL 03/27/2023 9:41 AM SHIRT CREASER NPRG RBC Distrib Width 14.7 12.2 - 16.1 % 03/27/2023 9:41 AM SHIRT CREASER NPRG Platelet Count 278 157 - 371 x10(9)/L 03/27/2023 9:41 AM SHIRT CREASER NPRG Leukocytes 7.4 3.4 - 9.6 x10(9)/L 03/27/2023 9:41 AM SHIRT CREASER NPRG Neutrophils 5.52 1.56 - 6.45 x10(9)/L 03/27/2023 9:41 AM SHIRT CREASER NPRG Lymphocytes 1.09 0.95 - 3.07 x10(9)/L 03/27/2023 9:41 AM SHIRT CREASER NPRG Monocytes 0.65 0.26 - 0.81 x10(9)/L 03/27/2023 9:41 AM SHIRT CREASER NPRG Eosinophils 0.16 0.03 - 0.48 x10(9)/L 03/27/2023 9:41 AM SHIRT CREASER NPRG Basophils 0.01 0.01 - 0.08 x10(9)/L 03/27/2023 9:41 AM SHIRT CREASER NPRG Blood (Blood, Venous) 03/27/2023 9:32 AM SHIRT CREASER 03/27/2023 9:37 AM SHIRT CREASER Mario Valle P.A.-C. LAB BLOOD A DD-ON Performing Organization Address City/[facility]/ZIP Co de Phone Number [facility] [address] [place] [address], [facility] NPRG [place] [address] [place] [address] * (ABNORMAL) CRP (C-Reactive Protein) (03/27/2023 9:32 AM SHIRT CREASER) C-Reactive Protein (CRP), P 15.2(H) <5.0 mg/L 03/27/2023 10:02 AM SHIRT CREASER NPRG Blood (Blood, Venous) 03/27/2023 9:32 AM SHIRT CREASER 03/27/2023 9:37 AM SHIRT CREASER Mario Valle P.A.-C. LAB BLOOD A DD-ON Performing Organization Address City/[facility]/ZIP Co de Phone Number [facility] [address] [place] [address], [facility] NPRG [place] [address] [place] [address] * Lipase (03/27/2023 9:32 AM SHIRT CREASER) Only the most recent of2 resultswithin the time period is included. Lipase, P 36 13 - 60 U/L 03/27/2023 10:02 AM SHIRT CREASER NPRG Blood (Blood, Venous) 03/27/2023 9:32 AM SHIRT CREASER 03/27/2023 9:37 AM SHIRT CREASER Mario Valle P.A.-C. LAB BLOOD A DD-ON [facility] [address] [place] [address], [facility] NPRG [facility] [address] [place] [address] * Comprehensive Metabolic Panel (03/27/2023 9:32 AM SHIRT CREASER) Only the most recent of2 resultswithin the time period is included. Potassium, P 4.0 3.6 - 5.2 mmol/L 03/27/2023 10:02 AM SHIRT CREASER NPRG Sodium, P 139 135 - 145 mmol/L 03/27/2023 10:02 AM SHIRT CREASER NPRG Chloride, P 105 98 - 107 mmol/L 03/27/2023 10:02 AM SHIRT CREASER NPRG Bicarbonate, P 22 22 - 29 mmol/L 03/27/2023 10:02 AM SHIRT CREASER NPRG Anion Gap, P 12 7 - 15 03/27/2023 10:02 AM SHIRT CREASER NPRG BUN (Blood Urea Nitrogen), P 8 6 - 21 mg/dL 03/27/2023 10:02 AM SHIRT CREASER NPRG Creatinine 0.87 0.59 - 1.04 mg/dL 03/27/2023 10:02 AM SHIRT CREASER NPRG Estimated GFR (eGFR) 86 >=60 mL/min/BS A 03/27/2023 10:02 AM SHIRT CREASER NPRG Comment: Estimated GFR calculated using the 2020 CKD_EPI creatinine equation. Calcium, Total, P 9.1 8.6 - 10.0 mg/dL 03/27/2023 10:02 AM SHIRT CREASER NPRG Glucose, P 93 70 - 140 mg/dL 03/27/2023 10:02 AM SHIRT CREASER NPRG Protein, Total, P 6.5 6.3 - 7.9 g/dL 03/27/2023 10:02 AM SHIRT CREASER NPRG Albumin, P 4.0 3.5 - 5.0 g/dL 03/27/2023 10:02 AM SHIRT CREASER NPRG Aspartate Aminotransferase (AST), P 14 8 - 43 U/L 03/27/2023 10:02 AM SHIRT CREASER NPRG Alkaline Phosphatase, P 69 35 - 104 U/L 03/27/2023 10:02 AM SHIRT CREASER NPRG Alanine Aminotransferase (ALT), P 30 7 - 45 U/L 03/27/2023 10:02 AM SHIRT CREASER NPRG Bilirubin, Total, P 0.5 0.0 - 1.2 mg/dL 03/27/2023 10:02 AM SHIRT CREASER NPRG Blood (Blood, Venous) 03/27/2023 9:32 AM SHIRT CREASER 03/27/2023 9:37 AM SHIRT CREASER Mario Valle P.A.-C. LAB BLOOD A DD-ON [facility] [address] [place] [address], [facility] NPRG [facility] [address] [place] [address] * FL Esophagram Single Contrast (03/25/2023 10:08 AM SHIRT CREASER) Anatomical Region Laterality Modality Gastro Intestinal, Abdominal RST LOS, Abdominal ARZ LOS, Abdominal FLA LOS N/A Digital Radiography Impressions 03/25/2023 10:13 AM SHIRT CREASER Small sliding-type hiatal hernia. No reflux observed. Narrative 03/25/2023 10:13 AM SHIRT CREASER EXAM: FL ESOPHAGRAM SINGLE CONTRAST FINDINGS: Normal esophageal peristalsis. No evidence of mass or stricture. The GE junction is widely patent. There is a small sliding-type hiatal hernia No significant gastroesophageal reflux. Procedure Note Paul Car M.D. - 03/25/2023 EXAM: FL ESOPHAGRAM SINGLE CONTRAST FINDINGS: Normal esophageal peristalsis. No evidence of mass or stricture. The GE junction is widely patent. There is a small sliding-type hiatalhernia No significant gastroesophageal reflux. IMPRESSION: Small sliding-type hiatal hernia. No reflux observed. Ronal Henderson M.D. IMG FLUOROSCOPY TN OCEDURES * Troponin T, 2h/6h, 5th Gen (03/12/2023 12:41 AM SHIRT CREASER) Troponin T, 2 hr, 5th gen <6 <=10 ng/L 03/12/2023 1:03 AM SHIRT CREASER NPRG 2H Delta 0 ng/L 03/12/2023 1:03 AM SHIRT CREASER NPRG 2H Delta Interp Not Changing 03/12/2023 1:03 AM SHIRT CREASER NPRG Troponin T, 6 hr, 5th gen CANCELED ng/L 03/12/2023 1:03 AM SHIRT CREASER NPRG Comment:Result canceled by t he ancillary. 6H Delta CANCELED ng/L 03/12/2023 1:03 AM SHIRT CREASER NPRG Comment:Result canceled by t he ancillary. 6H Delta % CANCELED % 03/12/2023 1:03 AM SHIRT CREASER NPRG Comment:Result canceled by t he ancillary. Blood (Blood, Venous) 03/12/2023 12:41 AM SHIRT CREASER 03/12/2023 12:43 AM SHIRT CREASER Narrative [facility] - 03/12/2023 1:03 AM SHIRT CREASER Specimen Information: Specimen ID: [id number] Specimen Type: Blood Specimen Collection Start Date: 03/12/2023 12:41 AM Specimen Received Date: 03/12/2023 12:43 AM Specimen ID: [id number] Specimen Type: Blood Boyd Lynn M.D. LAB BLOOD TROPONIN [facility] [address] [place] [address], [facility] NPRG [facility] [address] [place] [address] * Troponin T, Baseline, 5th gen (03/11/2023 10:57 PM SHIRT CREASER) Troponin T, Baseline, 5th gen <6 <=10 ng/L 03/11/2023 11:50 PM SHIRT CREASER NPRG Blood (Blood, Venous) 03/11/2023 10:57 PM SHIRT CREASER 03/11/2023 11:01 PM SHIRT CREASER Boyd Lynn M.D. LAB BLOOD TROPONIN [facility] [address] [place] [address], [place] NPRG [facility] [address] [place] [address] * Basic Metabolic Panel (03/11/2023 10:57 PM SHIRT CREASER) Only the most recent of3 resultswithin the time period is included. Potassium, P 4.0 3.6 - 5.2 mmol/L 03/11/2023 11:25 PM SHIRT CREASER NPRG Sodium, P 139 135 - 145 mmol/L 03/11/2023 11:25 PM SHIRT CREASER NPRG Chloride, P 104 98 - 107 mmol/L 03/11/2023 11:25 PM SHIRT CREASER NPRG Bicarbonate, P 23 22 - 29 mmol/L 03/11/2023 11:25 PM SHIRT CREASER NPRG Anion Gap, P 12 7 - 15 03/11/2023 11:25 PM SHIRT CREASER NPRG BUN (Blood Urea Nitrogen), P 9 6 - 21 mg/dL 03/11/2023 11:25 PM SHIRT CREASER NPRG Creatinine 0.83 0.59 - 1.04 mg/dL 03/11/2023 11:25 PM SHIRT CREASER NPRG Estimated GFR (eGFR) >90 >=60 mL/min/BSA 03/11/2023 11:25 PM SHIRT CREASER NPRG Comment: Estimated GFR calculated using the 2020 CKD_EPI creatinine equation. Calcium, Total, P 9.6 8.6 - 10.0 mg/dL 03/11/2023 11:25 PM SHIRT CREASER NPRG Glucose, P 98 70 - 140 mg/dL 03/11/2023 11:25 PM SHIRT CREASER NPRG Blood (Blood, Venous) 03/11/2023 10:57 PM SHIRT CREASER 03/11/2023 11:01 PM SHIRT CREASER Boyd Lynn M.D. LAB BLOOD ADD-ON [facility] [address] [place] [address], [place] NPRG [facility] [address] [place] [address] * ECG 12 Lead (03/10/2023 10:21 AM SHIRT CREASER) Ventricular Rate ECG/Min 73 BPM MUSE TN Interval 132 ms MUSE QRSD Interval 90 ms MUSE QT Interval 416 ms MUSE QTC Interval 458 ms MUSE P [place] 66 degrees MUSE R [place] 14 degrees MUSE T Wave [place] -1 degrees MUSE 03/10/2023 10:2 1 AM SHIRT CREASER 03/10/2023 10:42 AM SHIRT CREASER Impressions MUSE - 03/10/2023 10:40 AM SHIRT CREASER Normal sinus rhythm Nonspecific ST and T wave abnormality When compared with ECG of 07-OCT-2022 12:07, TN interval has increased Reviewed by WHIT Plummer Narrative Procedure Note Daquan Hess M.D., M.P.H. - 03/10/2023 IMPRESSION: Normal sinus rhythm Nonspecific ST and T wave abnormality When compared with ECG of 07-OCT-2022 12:07, TN interval has increased Reviewed by WHIT Plummer Jesus Manuel Hensley M.D. ECG ORDERABLES MUSE NA * DX Chest AP or PA and Lateral 2 Views (03/10/2023 9:37 AM SHIRT CREASER) Anatomical Region Laterality Modality Chest, Thoracic RST LOS, Tho racic ARZ LOS, Thoracic FLA LOS N/A Digital Radiography Impressions 03/10/2023 9:38 AM SHIRT CREASER Stable chest, no acute cardiopulmonary disease. Narrative 03/10/2023 9:38 AM SHIRT CREASER EXAM: DX CHEST AP OR PA AND LATERAL 2 VIEWS COMPARISON: 10/07/2022. FINDINGS: Heart size and pulmonary vascularity are within normal limits. Lungs are clear of infiltrates or effusions. There is no significant interval change compared with 10/07/2022. Procedure Note Kenton Gutiérrez Jr., M.D. - 03/10/2023 EXAM: DX CHEST AP OR PA AND LATERAL 2 VIEWS COMPARISON: 10/07/2022. FINDINGS: Heart size and pulmonary vascularity are within normal limits.Lungs are clear of infiltrates or effusions. There is no significantinterval change compared with 10/07/2022. IMPRESSION: Stable chest, no acute cardiopulmonary disease. Jesus Manuel Hensley M.D. IMG DIAGNOSTIC IMAGI NG PROCEDURES * SARS Coronavirus 2, PCR Rapid Symptomatic (03/10/2023 8:49 AM SHIRT CREASER) Pathologist [facility] SARS CoV-2, PCR, Rapid, V Undetected Undetected 03/10/2023 9:12 AM SHIRT CREASER NPRG Comment: ----ADDITIONAL INFORMATION---- This RT-PCR test was performed using the [employer] SARS-CoV-2 and Influenza A/B Reagent assay from [employer], which has received Emergency Use Authorization(EUA) by the U.S. Food and Drug Administration. Fact sheets for this Emergency Use Authorization (EUA) assay can be found at the following links: For Healthcare Providers: https://www.fda.gov/media/227544/download For Patients: https://www.fda.gov/media/276719/download SARS Coronavirus 2, Source, Rapid Swab, Nasopharynx 03/10/2023 8:49 AM SHIRT CREASER NPRG Swab (Nasopharynx) 03/10/2023 8:49 AM SHIRT CREASER 03/10/2023 8:49 AM SHIRT CREASER Jesus Manuel Hensley M.D. LAB MICROBIOLOGY - G ENERAL ORDERABLES [facility] [address] [place] [address], [facility] NPRG [facility] [address] [place] [address] * Influenza A/B and RSV, PCR, Point of Care (03/10/2023 8:49 AM SHIRT CREASER) Pathologist [facility] Influenza A, POCT Negative Negative 03/10/2023 8:53 AM SHIRT CREASER NPRG Influenza B, POCT Negative Negative 03/10/2023 8:53 AM SHIRT CREASER NPRG Resp Syncytial Virus, POCT Negative Negative 03/10/2023 8:53 AM SHIRT CREASER NPRG Swab (Nasopharynx) 03/10/2023 8:49 AM SHIRT CREASER 03/10/2023 8:49 AM SHIRT CREASER Jesus Manuel Hensley M.D. LAB POCT ORDERABLES - DEVICE [facility] [address] [place] [address], [facility] NPRG [facility] [address] [place] [address] * (ABNORMAL) Urinalysis with Microscopic: Urine, Midstream (03/08/2023 2:43 PM SHIRT CREASER) [facility] Source Urine, Urine, Midstream 03/08/2023 3:00 PM SHIRT CREASER MK[facility] Clarity Clear Clear 03/08/2023 3:00 PM SHIRT CREASER [facility] Color Yellow 03/08/2023 3:00 PM SHIRT CREASER MK[facility] Comment: ----REFERENCE VALUE---- Colorless Yellow Chasity Blood Negative Negative 03/08/2023 3:00 PM SHIRT CREASER MK[facility] Nitrite Negative Negative 03/08/2023 3:00 PM SHIRT CREASER [facility] Leukocyte Esterase Trace(A) Negative 03/08/2023 3:00 PM SHIRT CREASER MKTO Protein Negative mg/dL 03/08/2023 3:00 PM SHIRT CREASER [facility] Comment: ----REFERENCE VALUE---- Negative Trace Glucose Negative Negative mg/dL 03/08/2023 3:00 PM SHIRT CREASER MKTO Ketone Negative Negative mg/dL 03/08/2023 3:00 PM SHIRT CREASER MKTO Bilirubin Negative Negative 03/08/2023 3:00 PM SHIRT CREASER MK[facility] pH 8.5(A) 5.0 - 8.0 03/08/2023 3:00 PM SHIRT CREASER MKTO Specific [place] 1.007 1.001 - 1.035 03/08/2023 3:00 PM SHIRT CREASER MKTO Urobilinogen 0.2 0.2 - 1.0 mg/dL 03/08/2023 3:00 PM SHIRT CREASER MKTO White Blood Cells Occ-3 /hpf 03/08/2023 3:03 PM SHIRT CREASER [facility] Comment: ----REFERENCE VALUE---- Males: 0-3 Females: 0-10 Unknown: 0-10 Red Blood Cells None Seen 0 - 2 /hpf 3:03 PM SHIRT CREASER MKTO Squamous Cells Occ-3 /hpf 03/08/2023 3:03 PM SHIRT CREASER [facility] Urine (Urine, Midstream) 03/08/2023 2:43 PM SHIRT CREASER 03/08/2023 2:56 PM SHIRT CREASER Ronal Henderson M.D. LAB URINE ORDERABL ES [facility] [address] [place] [id number], [facility] MKTO [facility] [place] [address] from Last 3 Months Care Teams Vascular Neurologist Relationship Specialty Start Date End Date Elsewhere, Pcp PCP - General Internal Medicine 01/07/22
--- OUTSIDE RECORDS SUMMARY | 2023-04-06 19:22 | XMS_ITS | Clinical Summary ---
Author Name Unknown Organization [facility] Address [address] [place] [address] Care Team Providers Care Shipping And Receiving Specialist Name Role Phone Teena Hargrove MD Primary Care Provider [phone] Seble Dickinson PA-C Unavailable [phone] Allergies Active Allergy Reactions Criticality Noted Date Comments No Known Drug Allergy 04/09/2004 Medications Medication Sig Dispensed Refills Start Date End Date Status ALEVE 220 MG OR TABS 1 TABLET EVERY 12 HOURS NEEDED 0 Active ASPIRIN 325 MG OR TBEC 2 TABLET EVERY 4 HOURS NEEDED 0 Active EXCEDRIN EXTRA STRENGTH 250-250-65 MG OR TABS 2 TABLETS EVERY 6 HOURS NEEDED 0 Active NASONEX 50 MCG/ACT NA SUSPIndications:Allerg ic rhinitis, cause unspecified 1-2 puff in each nostril once daily (july subst flonase if needed) 1 05/18/2007 Active VANCE-D 12 HOUR## 60-120 MG OR [id number]:Allerg ic rhinitis, cause unspecified 1 TABLET TWICE DAILY ON EMPTY STOMACH 30 05/18/2007 Active ORTHO EVRA 150-20 MCG/24HR TD PTWKIndications:Contra ception APPLY ONE PATCH EVERY WEEK FOR 3 WEEKS THEN OFF FOR ONE WEEK 3 MONTHS 04/05/2008 Active Progesterone Micronized (PROGESTERONE PO) Take by mouth At Bedtime 0 Active Vit-Fe Fumarate-FA ( MULTIVITAMIN W/IRON) 27-0.8 MG tablet Take 1 tablet by mouth daily 0 Active Active Problems Problem Noted Date Diagnosed Date CARDIOVASCULAR SCREENING; LDL GOAL LESS THAN 160 01/05/2010 Migraine 06/10/2006 Overview: Problem list name updated by automated process. Provider to review Scanty or infrequent menstruation 04/16/2006 Irregular menstrual cycle 04/12/2006 Insomnia 04/12/2006 Overview: Problem list name updated by automated process. Provider to review Hirsutism 04/12/2006 Allergic rhinitis 04/12/2006 Overview: Problem list name updated by automated process. Provider to review Obesity 03/27/2006 Overview: Problem list name updated by automated process. Provider to review Resolved Problems Problem Noted Date Diagnosed Date Resolved Date Allergic state 04/12/2006 04/12/2006 Overview: Problem list name updated by automated process. Provider to review Polycystic ovaries 04/12/2006 7 Immunizations Name Administration Dates Next Due HPV 01/09/2008 Influenza (IIV3) PF 01/09/2008,04/15/2006 TDAP Vaccine (Adacel) 04/15/2006 Family History Medical History Relation Comments Cancer Maternal Grandmother lung cancer Connective Tissue Disorder Mother chron ic inflammotory neuropathy Relation Status Comments Father Alive Maternal Grandmother Mother Sister 1 Alive Sister 2 Alive Social History Tobacco Use Types Packs/Day Years Used Date Smoking Tobacco: Former Cigarettes 5 Q uit: 06/25/2006 Comments:1 pack per wk. Alcohol Use Standard Drinks/Week Comments Yes 5.8 (1 standard drink = 0.6 oz p ure alcohol) 1-2 times per wk. Adolescent Education Answer Date Record ed Getting School Help Needed Not on file 12/20 Sex and Gender Information Value Date Recorded Sex Assigned at Not on file Gender Identity Not on file Sexual Orientation Not on file Last Filed Vital Signs Vital Sign Reading Time Taken Comments Blood Pressure 144/93 08/29/2020 5:42 PM CDT Pulse 86 08/29/2020 5:42 PM CDT Temperature 36.1 ??C (97 ??F) 08/29/2020 1:55 PM CDT Respiratory Rate 18 08/29/2020 1:55 PM CDT Oxygen Saturation 98% 08/29/2020 5:42 PM CDT Inhaled Oxygen Concentration - - Weight 108.9 kg (240 lb) 03/17/2020 12:13 PM [employer] Height 167.6 cm (5' 6) 02/19/2019 2:39 PM [employer] Body Mass Index 38.74 02/19/2019 2:39 PM [employer] Plan of Treatment Health Maintenance Due Date Last Done Comments ADVANCE CARE PLANNING 1981 ANNUAL REVIEW OF HM ORDERS 1981 HEPATITIS B IMMUNIZATION (1 of 3 - 3-dose series) 1981 MIGRAINE ACTION PLAN 1981 HIV SCREENING 1996 HEPATITIS C SCREENING 09/04/1999 HPV IMMUNIZATION (2 - 3-dose series) 02/06/2008 01/09/2008, 01/09/2008 YEARLY PREVENTIVE VISIT 01/08/2009 01/09/2008, 04/12 COVID-19 Vaccine ( season) 2022 04/02/2022, 02/26/2021, 06/27/2020, Additional history exists INFLUENZA VACCINE (#1) 2022 , 02/19/2021, 11/30/2019, Additional history exists PHQ-2 (once per calendar year) 2023 HPV TEST 02/02/2024 02/01/2023, 2 09/2022, 01/26/2022, Additional history exists PAP 02/02/2024 02/01/2023, 01/07, 01/09/2008, Additional history exists DTAP/TDAP/TD IMMUNIZATION (5 - Td or Tdap) 07/23/2030 07/23/2020, 11/22/2017, 01/15/2014, Additional history exists IPV IMMUNIZATION Aged Out No longer e ligible based on patient's age to complete this topic MENINGITIS IMMUNIZATION Aged Out No l onger eligible based on patient's age to complete this topic Pneumococcal Vaccine: Pediatrics (0 to 5 Years) and At-Risk Patients (6 to 64 Years) Aged Out No longer eligible based on patient's age to complete this topic RSV MONOCLONAL ANTIBODY Aged Out No l onger eligible based on patient's age to complete this topic Procedures Procedure Name Priority Date/Time Associated Diagnosis Comments CBC WITH PLATELETS Routine 02/01/2023 10 :25 AM [employer] Encounter for screening for diseases of the blood and blood-forming organs and certain disorders involving the immune mechanism LIPID PROFILE Routine 02/01/2023 10:25 AM [employer] Encounter for screening for lipoid disorders HEMOGLOBIN A1C Routine 02/01/2023 10:25 AM [employer] Encounter for screening for diabetes mellitus HPV HOLD (LAB ONLY) Routine 02/01/2023 1 0:00 AM [employer] Encounter for screening for malignant neoplasm of cervix GYNECOLOGIC CYTOLOGY Routine 02/01/2023 10:00 AM [employer] Encounter for screening for malignant neoplasm of cervix HPV HIGH RISK TYPES DNA CERVICAL Routine 02/01/2023 10:00 AM [employer] Encounter for screening for malignant neoplasm of cervix from Last 3 Months Results * (ABNORMAL) Lipid Profile (02/01/2023 10:25 AM [employer]) Cholesterol 198 <200 mg/dL 02/01/2023 2:46 PM [employer] [facility] Triglycerides 102 <150 mg/dL 02/01/2023 2:46 PM [employer] [facility] Direct Measure HDL 53 >=50 mg/dL 02/01/2023 2:46 PM [employer] [facility] LDL Cholesterol Calculated 125(H) <=100 mg/dL 02/01/2023 2:46 PM [employer] [facility] Non HDL Cholesterol 145(H) <130 mg/dL 02/01/2023 2:46 PM [employer] [facility] Blood TOPOGRAPHY UNKNOWN / Unknown Client Draw / Unknown 02/01/2023 10:25 AM [employer] 02/01/2023 1:09 PM [employer] Narrative [facility] - 02/01/2023 2:46 PM [employer] Cholesterol Desirable: ??<200 mg/dL Triglycerides Normal: ??Less than 150 mg/dL Borderline High: ??150-199 mg/dL High: ??200-499 mg/dL Very High: ??Greater than or equal to 500 mg/dL Direct Measure HDL Female: ??Greater than or equal to 50 mg/dL Male: ??Greater than or equal to 40 mg/dL LDL Cholesterol Desirable: ??<100mg/dL Above Desirable: ??100-129 mg/dL Borderline High: ??130-159 mg/dL High: ??160-189 mg/dL Very High: ??>= 190 mg/dL Non HDL Cholesterol Desirable: ??130 mg/dL Above Desirable: ??130-159 mg/dL Borderline High: ??160-189 mg/dL High: ??190-219 mg/dL Very High: ??Greater than or equal to 220 mg/dL Jericho Hernandez PA-C LAB - BLOOD ORD ERAEDWARD [facility] [address] [facility], [address] [address], [facility] [phone] * Hemoglobin A1c (02/01/2023 10:25 AM [employer]) Pathologist [facility] Hemoglobin A1C 5.2 <5.7 % 02/01/2023 1:39 PM [employer] [facility] Comment: Normal <5.7% Prediabetes 5.7-6.4% ?? Diabetes 6.5% or higher Note: Adopted from ADA consensus guidelines. Blood TOPOGRAPHY UNKNOWN / Unknown Client Draw / Unknown 02/01/2023 10:25 AM [employer] 02/01/2023 1:08 PM [employer] Jericho Hernandez PA-C LAB - BLOOD ORD SANDRITA Performing Organization Address City/[facility]/ZIP Co de Phone Number [facility] [address] [facility], [address] [address], [facility] [phone] * (ABNORMAL) CBC with platelets (02/01/2023 10:25 AM [employer]) WBC Count 8.4 4.0 - 11.0 10e3/uL 02/01/2023 1:28 PM [employer] [facility] RBC Count 5.34(H) 3.80 - 5.20 10e6/uL 02/01/2023 1:28 PM [employer] [facility] Hemoglobin 15.0 11.7 - 15.7 g/dL 02/01/2023 1:28 PM [employer] [facility] Hematocrit 46.6 35.0 - 47.0 % 02/01/2023 1:28 PM [employer] [facility] MCV 87 78 - 100 fL 02/01/2023 1:28 PM [employer] [facility] MCH 28.1 26.5 - 33.0 pg 02/01/2023 1:28 PM [employer] [facility] MCHC 32.2 31.5 - 36.5 g/dL 02/01/2023 1:28 PM [employer] [facility] RDW 13.8 10.0 - 15.0 % 02/01/2023 1:28 PM [employer] [facility] Platelet Count 330 150 - 450 10e3/uL 02/01/2023 1:28 PM [employer] [facility] Blood BLOOD SPECIMEN / Unknown Client Draw / Unknown 02/01/2023 10:25 AM [employer] 02/01/2023 1:08 PM [employer] Jericho Hernandez PA-C LAB - BLOOD ORD ERABLES [facility] [address] [facility], [address] [address], [facility] [phone] * HPV Hold (Lab Only) (02/01/2023 10:00 AM [employer]) Brushing CERVIX UTERI STRUCTURE / Unknown Non-blood Collection / Unknown 02/01/2023 10:00 AM [employer] 02/04/2023 8:08 AM [employer] Jericho Hernandez PA-C LAB - BEAKER [facility] [address] [facility], [address] [address], [facility] [phone] * Gynecologic Cytology (PAP) (02/01/2023 10:00 AM [employer]) Interpretation Negative for Intraepithelial Lesion or Malignancy (NILM) 02/03/2023 9:28 AM [employer] [facility] Comment Papanicolaou Test Limitations: Cervical cytology is a screening test with limited sensitivity, and regular screening is critical for cancer prevention. Pap tests are primarily effective for the diagnosis/prevent ion of squamous cell carcinoma, not adenocarcinoma or other cancers. 02/03/2023 9:28 AM [employer] [facility] Specimen Adequacy Satisfactory for evaluation, endocervical/wilkes sformation zone component present 02/03/2023 9:28 AM [employer] [facility] Clinical Information none 02/03/2023 9:28 AM [employer] [facility] LMP/Menopause Date 01-24-2023 02/03/2023 9:28 AM [employer] [facility] Reflex Testing Yes regardless of result 02/03/2023 9:28 AM [employer] [facility] Previous Abnormal? No 02/03/2023 9:28 AM [employer] [facility] Previous Abnormal Diagnosis NILM with NEG HPV 02/03/2023 9:28 AM [facility] Performing Labs The technical component of this testing was completed at [facility] 02/03/2023 9:28 AM [facility] Brushing CERVIX UTERI STRUCTURE / Unknown 02/01/2023 10:00 AM [employer] 02/01/2023 1:15 PM [employer] Jericho [facility] Special[facility] [address] [facility], [address] [place] [address], [facility] [phone] * HPV High Risk Types DNA Cervical (02/01/2023 10:00 AM [employer]) Other HR HPV Negative Negative 02/04/2023 3:03 PM [employer] [facility] HPV16 DNA Negative Negative 02/04/2023 3:03 PM [employer] [facility] HPV18 DNA Negative Negative 02/04/2023 3:03 PM [employer] [facility] FINAL DIAGNOSIS This patient's sample is negative for HPV DNA. This test was developed and its performance characteristics determined by the [facility]. It has not been cleared or approved by the FDA. The laboratory is regulated under CLIA as qualified to perform high-complexity testing. This test is used for clinical purposes. It should not be regarded as investigational or for research. METHODOLOGY: The Pamella Rita [id number] system uses automated extraction, simultaneous amplification of HPV (L1 region) and beta-globin, followed by real time detection of fluorescent labeled HPV and beta globin using specific oligonucleotide probes. The test specifically identifies types HPV 16 DNA and HPV 18 DNA while concurrently detecting the rest of the high risk types (31, 33, 35, 39, 45, 51, 52, 56, 58, 59, 66 or 68). COMMENTS: This test is not intended for use as a screening device for woman under age 30 with normal cervical cytology. Results should be correlated with cytologic and histologic findings. Close clinical followup is recommended. 02/04/2023 3:03 PM [employer] [facility] Brushing CERVIX UTERI STRUCTURE / Unknown Non-blood Collection / Unknown 02/01/2023 10:00 AM [employer] 02/04/2023 8:08 AM [employer] Jericho Hernandez PA-C LAB - BLOOD ORD ERABLES [facility] [address] [facility] [address] [facility] [address], [address] [place] [address], [facility] [phone] from Last 3 Months Care Teams Shipping And Receiving Specialist Relationship Specialty Start Date End Date Teena Hargrove MD [facility] [place], [place] [id number] PCP - General skilled nursing professional 03/17/20 Seble Dickinson PA-C [address] [facility] [address] [place] [address] Physician Radar Repairer Urology 08/24/22
--- OUTSIDE RECORDS SUMMARY | 2023-04-06 19:22 | XMS_ITS | Clinical Summary ---
Author Name Unknown Organization [email or web address] Address [place], [place] [address] Care Team Providers Care Bun Panner Name Role Phone Tone Mcqueen Unavailable Pcp, No Primary Care Provider Unavailabl e Allergies No known active allergies Medications Medication Sig Dispensed Refills Start Date End Date Status budesonide (RHINOCORT ALLERGY) (32 mcg each actuation) nasal spray Inhale 1 [place] into both nostrils once daily. 0 02/13/2020 Active loratadine (CLARITIN) 10 mg tablet Take 1 tablet by mouth once daily. 0 03/22/2020 Active ibuprofen (ADVIL; MOTRIN) 600 mg tabletIndications:Abdulaziz arean delivery delivered Take 1 Tablet (600 mg) by mouth every 6 hours. Maximum of 3200 mg in 24 hours. 60 Tablet 0 08/16/2020 Active durable medical equipment (DME)Indications:Cesa rean delivery delivered interdry 14 Each 0 08/16/2020 Active cholecalciferol, Vitamin D3, 2,000 unit tablet Take 50 mcg by mouth. 0 Active multivitamin (MVI) tablet Take 1 Tablet by mouth once daily. 0 Active hydrOXYzine HCL (ATARAX) 25 mg tablet hydroxyzine HCl 25 mg tablet TAKE 1 TABLET (25 MG TOTAL) BY MOUTH 2 (TWO) TIMES A DAY NEEDED FOR ANXIETY. 0 06/04/2021 Active gabapentin (NEURONTIN) 300 mg capsule gabapentin 300 mg capsule TAKE 1 CAPSULE BY MOUTH THREE TIMES A DAY 0 11/07/2020 Active omeprazole (PRILOSEC) 20 mg Delayed-Release capsule Take 20 mg by mouth. 0 Active spironolactone (ALDACTONE) 50 mg tablet Take 50 mg by mouth once daily. 0 05/20/2021 Active cetirizine (ZYRTEC) 10 mg tablet Take 1 Tablet (10 mg) by mouth once daily. 0 06/29/2021 Active Vaniqa cream APPLY A THIN LAYER TO THE AFFECTED AREA TWICE DAILY 0 07/23/2021 Active fluconazole (DIFLUCAN) 200 mg tablet 0 07/29/2021 Active fluticasone (50 mcg per actuation) nasal solution (FLONASE) Inhale 2 Sprays into affected nostril(s). 0 Active mometasone 0.1% (ELOCON 0.1% OINTMENT) 0.1 % ointment 0 07/29/2021 Active ondansetron (ZOFRAN ODT) 4 mg disintegrating tablet TAKE 1 TABLET (4 MG TOTAL) BY MOUTH EVERY 8 (EIGHT) HOURS NEEDED FOR NAUSEA OR VOMITING FOR UP TO 10 DAYS. 0 07/09/2021 Active Active Problems Problem Noted Date Diagnosed Date Vitamin D deficiency 10/10/2021 Fibromyalgia 02/12/2021 S/P repeat low transverse 08/16/2020 History of section complicating pregnan cy 04/25/2020 Echogenic focus of heart of fetus affecting antepartum care of mother 04/25/2020 Obesity affecting in second trimester 04/25/2020 Rh negative state in antepartum period, third tr imester 02/16/2018 Failed induction of labor, delivered 02/16/2018 Encounter for screening for cardiovascular disor ders 01/05/2010 Allergic rhinitis 04/12/2006 Overview: Problem list name updated by automated process. Provider to review Problem list name updated by automated process. Provider to review Insomnia 04/12/2006 Overview: Problem list name updated by automated process. Provider to review Irregular menstrual cycle 04/12/2006 Resolved Problems Problem Noted Date Diagnosed Date Resolved Date Primary LST delivery delivered 02/16/2018 08/16/2020 Low lying placenta nos or wi thout hemorrhage, third trimester 08/16/2020 Immunizations Name Administration Dates Next Due HPV 9 (Gardasil 9) 01/09/2008 Human Papilloma Virus Vaccine 01/09/2008 Influenza, IIV3 (Age >=3 years) 11/22/2017,03/18,01/09/2008,04/15/2006 Tdap 11/22/2017,01/15/2014,04/15/2006 Family History Relation Name Status Comments Father Alive Mother Social History Tobacco Use Types Packs/Day Years Used Date Smoking Tobacco: Never Smokeless Tobacco: Never Comments:Past passive smoker Alcohol Use Standard Drinks/Week Comments No 0 (1 standard drink = 0.6 oz pure alcohol) Rarely, a few drinks once a month PHQ-2 Answer Date Recorded PHQ-2 TOTAL SCORE 0 02/12/2020 Social Connections Answer Date Recorded Frequency of Communication with Friends and Fami ly Not on file 03/08/2021 Financial Resource Strain Answer Date R ecorded Difficulty of Paying Living Expenses Not on file 03/08/2021 Difficulty of Paying Living Expenses Not on file 03/08/2021 Sex and Gender Information Value Date Recorded Sex Assigned at Not on file Gender Identity Not on file Sexual Orientation Not on file Obstetrics History Para Term AB IAB SAB Ectopic Multiple Livin g Live Births 3 2 2 1 1 0 2 2 Date Outcome GA Total Labor Labor/2nd/3rd Weight Sex Delivery Anes PTL Mary A1 A5 Name Cl in 02/16 Term 41w 0d 2.75 kg (6 lb 1 oz) F CS-LTranv Celina ng Complications: distress 02/19 SAB 08/13 Term 39w 0d 0h 01m 0h 01m 3.23 kg (7 lb 1.9 oz) M Celina ng 8 9 VOLKE RT,BB Catie Mtz MD Delivery Location:Hospital ( [facility] [address] L&D TRIAGE) Last Filed Vital Signs Vital Sign Reading Time Taken Comments Blood Pressure 124/86 10/16/2021 4:06 PM CDT Pulse 77 10/16/2021 4:06 PM CDT Temperature 36.3 ??C (97.3 ??F) 10/16/2021 4:06 PM CD T Respiratory Rate 18 10/16/2021 4:06 PM CDT Oxygen Saturation 99% 10/16/2021 4:06 PM CDT Inhaled Oxygen Concentration - - Weight 111.8 kg (246 lb 8 oz) 10/16/2021 4:06 PM CDT Height 167.6 cm (5' 6) 10/16/2021 4:06 PM CDT Body Mass Index 39.79 10/16/2021 4:06 PM CDT Plan of Treatment Health Maintenance Due Date Last Done Comments HIV for age 15-65 1996 Hepatitis C screening for age 18-79 09/04/1999 Pap test for age 21-65 2002 Depression screening for age 12+ 02/11/2021 02/12/2020, 02/24/2018, 02/24/2018, Additional history exists BMI (ht and wt on same day) for age 18+ 10/16/2022 10/16/2021, 06/29/2021, 03/22/2020, Additional history exists COVID-19 vaccine series ( season) 2022 02/26/2021, 06/27/2020, 05/29/2020 Influenza for age 9-49 11/06/2022 8, 03/18/2012, 01/09/2008, Additional history exists Tetanus booster 11/23/2027 11/22/2017, 01/06, 04/15/2006 Tdap Completed 11/22/2017, 01/06, 04/15/2006 Pneumococcal series for age 6-64 Aged Out No longer eligible based on patient's age to complete this topic Advance Directives Latest Code Status on File Code Status Date Activated Date Inactivated Comments Full Code 08/13/2020 5:25 PM 08/16/2020 3:14 PM Question Answer Comments Code Status Discussion: Discussed Code Status History Code Status Date Activated Date Inactivated Comments Full Code 02/17/2018 7:50 AM 02/19/2018 4:04 PM Question Answer Comments Code Status Discussion: Not Discussed Full Code 02/16/2018 6:36 PM 02/17/2018 7:50 AM Pos t section Care Teams Bun Panner Relationship Specialty Start Date End Date Pcp, No . PCP - General 12/24/21 Tone Mcqueen MBBS [address] [facility] [address] [place] [address] Consulting Physician Cardiology - Interventional 03/21/20
--- OUTSIDE RECORDS SUMMARY | 2023-04-06 19:22 | XMS_ITS | Continuity of Care Document ---
Author Name Unknown Address [address] [place] [address] Phone [phone] Organization [facility] - ELECTRICAL CONTRACTOR, [id number] Address [address] [facility] [address] [place] [address] Care Team Providers Care Furrier Shop Supervisor Name Role Phone WALLY TEENA Toucher Up NORMA MCNULTY Primary Care Provider [phone] Assessment No assessment recorded. Plan of Treatment Reminders Order Date Submit Date Provider Last Modified By Organization Details Last Modified Time Details Appointments G_OFFICE VISIT 2023 11:30A M MAURISIO FRAIRE PA-C Not available Not available Not available Lab lipid panel, serum 2022 023 [facility], [address] [place] [address], [address], [place], [address], 02/01/2023 15:49:12 bacterial vaginosis + vaginitis panel, vaginal 2022 023 [email or web address] [id number] rtners_yanethyda le, [address] [facility], [address], [place], [address], 02/01/2023 13:01:20 hemoglobi n A1c, QN, blood 2022 023 [facility], [address] [facility], [address], [place], [address], 02/01/2023 15:49:11 CBC 2022 023 [facility], [address] [facility], [address], [place], [address], 02/01/2023 15:49:09 Pap test, slide(s), cervical 2022 023 [facility], [address] [facility], [address], [place], [address], 02/04/2023 16:08:46 Referral None recorded. Procedures None recorded. Surgeries None recorded. Imaging None recorded. Medication Orders spironola ctone 50 mg tablet 2022 [facility], [address] [facility], [place], [address], 02/01/2023 10:56:44 Metrogel Vaginal 0.75 % (37.5 mg/5 gram) 2022 [facility], [address] [facility], [place], [address], 04/02/2023 13:10:07 Patient TargetsNo targets recorded. Patient Instructions Encounter Date Encounter Id Patient Instructions Last Modified By Organization Details Last Modified Time 02/01/2023 [id number] venous blood draw* [id number] Not avai lable 02/01/2023 10:56:02 RTC in [...] cervical or colon cancers. All questions answered. [email or web address] Not available 02/01/2023 13:10:01 Reason for Referral Maternal & Medicine Re ferral for consult- ECHOGENIC AREA HEART NOTED AT [facility] Referring Physician: Teena Hargrove, ELECTRICAL CONTRACTOR, Encounter Date: 04/09/2020 Results Created Date Observation Date Name Description Value Unit Range Abnormal Flag LastModifiedBy Organization Detail LastModifiedTime 02/02/2002/01/2023 bacte rial vagin osis + vagin itis panel , vagin al gardnerella positi ve negati ve abnormal Not Available [id number] [address], [place], [address], 02/01/2023 10:04:04 02/02/2002/01/2023 bacte rial vagin osis + vagin itis panel , vagin al trichomonas negati ve negati ve normal Not Available [id number] [address], [place], [address], 02/01/2023 10:04:04 02/02/2002/01/2023 bacte rial vagin osis + vagin itis panel , vagin al avery negati ve negati ve normal Not Available [id number] [address], [place], [address], 02/01/2023 10:04:04 Result Notes None recorded. Problems Name Status Onset Date Resolution Date Notes Provider Name and Address Organization Details Recorded Time History of section Active 07/30/19 21 Blake cunningham [place] - [employer] 07/29/2020 17:15:34 Multigravida of advanced maternal age Active 07/30/19 21 Blake cunningham [place] - [employer] 07/29/2020 17:15:41 Vitamin D deficiency Active Not Available [facility] 10/12/2019 05:10:31 Problem Notes None recorded. Procedures Surgical History Date Name Laterality Status Provider Name and Address Organization Details Recorded Time Date of Last Mammogram completed Olga Dow (OLIVE) null, [place] - [employer] 07/01/2022 15:05:23 2 Date of Last Pap Smear completed Raegan Song null, [place] - [employer] 01/26/2023 12:30:03 8 section completed Not Available [facility] 10/12/2019 05:09:17 Imaging Results None recorded. Procedure [...] Updated DateTime 3 167.64 cm 34.9 kg/m2 92614.6 7 g 64 /min 118 mm[Hg] 82 mm[Hg] KRISTA Johnson - ELECTRICAL CONTRACTOR 3 09:58:03 Social History Question Answer Notes LastModified by [...] Blood Transfusion Acceptable In An Emergency? Yes [email or web address] Information not available 01/26/2022 What Is Your Level Of Caffeine Consumption? None Information not available 02/01/2023 Are You Currently Employed? Yes [email or web address] Information not available 01/26/2022 What Type Of Diet Are You Following? GLUTENFREE No Sugar And Dairy Information not available 02/01/2023 What Is The Highest Grade Or Level Of School You Have Completed Or The Highest Degree You Have Received? 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 Less Than 1 Time Per Week Information not available 02/01/2023 History Of Domestic Violence No Denies Any History Of Domestic Violence Information not available 10/16/2019 Spouse/Partners Name Sekou Rivas Information not available 02/01/2023 Ethnic Background White Or [email or web address] Information not available 01/26/2022 Are You Passively Exposed To Smoke? No Information not available 02/01/2023 Performs Monthly Self-breast Exam? No Does Not Perform Monthly Breast Exams Information not available 01/21/2021 What Is Your Relationship Status? [email or web address] Information not available 01/26/2022 Are You Sexually Active? Yes Currently Sexually Active Information not available 01/21/2021 Do You Use Any Illicit Or Recreational Drugs? No Information not available 02/01/2023 Has Tobacco Cessation Counseling Been Provided? Yes Information not available 02/01/2023 On What Date Was Tobacco Cessation Counseling Provided? 02/01/2023 Information not available 02/01/2023 Are You Currently In School? No [email or web address] Information not available 01/26/2022 Sex: Female Functional [...] Recorded Time Tdap 07/23/2020 completed KRISTA Duque ELECTRICAL CONTRACTOR 07/23/2020 15:22:22 Tdap 11/22/2017 completed Not Available [facility] 05:09:39 Tdap 01/15/2014 completed Not Available [facility] 05:09:39 influenza, injectable, quadrivalent, preservative free 11/22/2017 completed KRISTA Britton ELECTRICAL CONTRACTOR 01/21/2021 11:39:02 Past Encounters Encounter ID Performer Location Encounter Start Date Encounter Closed Date Diagnosis/Indication [id number] MAURISIO RFAIRE PA-C [id number] [facility]_JOAN LEONARD [address] [place] [address],[address] [place] [address] 02/01/2023 09:42:59 02/01/2023 13:58:01 Screening for malignant neoplasm of cervix Diabetes mellitus screening Hyperlipidemia screening Gynecologic examination Anemia screening Vaginal irritation Obesity Female hirsutism Health Concerns Section Related Observation LastModified by Organization Detai ls LastModified Time None Recorded Concern Status LastModified by Organization Details LastModified Time None Recorded Payers Encounter Date Sequence Insurance Name Policy Number Policy Silva Covered Member ID Silva Member ID Guarantor Name 02/01/2023 1 [facility] - [facility] ([facility] [id number] Shirley Rivas [id number] Henny Rivas Notes Date Note Type Note Provider Name and Address Organization Details Recorded Time 02/01/2023 text/html HPI Notes: Abdulaziz cates Premenopausal [...] a vaginal infection today. MAURISIO FRAIRE PA-C [id number] [facility],[address], [place], [address], [place] - [employer] 02/01/2023 13:11:28 OBGyn Episode No OBEpisode recorded.
--- OUTSIDE RECORDS SUMMARY | 2023-04-06 19:22 | XMS_ITS | Referral Summary ---
Author Name Unknown Organization [facility] Address [address] [place] [address] Care Team Providers Care Tanbark Laborer Name Role Phone Teena Hargrove MD Primary Care Provider [phone] Seble Dickinson PA-C Unavailable [phone] Allergies Active Allergy Reactions Criticality Noted Date [...] Active VANCE-D 12 HOUR## 60-120 MG OR [id number]:Allerg ic rhinitis, cause unspecified 1 TABLET TWICE [...] (IIV3) PF 01/09/2008,04/15/2006 TDAP Vaccine (Adacel) 04/15/2006 Social History Tobacco Use Types Packs/Day Years [...] 108.9 kg (240 lb) 03/17/2020 12:13 PM [facility] Height 167.6 cm (5' 6) 02/19/2019 2:39 PM [facility] Body Mass Index 38.74 02/19/2019 2:39 PM [facility] Plan of Treatment Not on file Procedures Procedure Name Priority Date/Time Associated Diagnosis Comments CBC WITH PLATELETS Routine 02/01/2023 10 :25 AM [facility] Encounter for screening for diseases of the blood and blood-forming organs and certain disorders involving the immune mechanism LIPID PROFILE Routine 02/01/2023 10:25 AM [facility] Encounter for screening for lipoid disorders HEMOGLOBIN A1C Routine 02/01/2023 10:25 AM [facility] Encounter for screening for diabetes mellitus HPV HOLD (LAB ONLY) Routine 02/01/2023 1 0:00 AM [facility] Encounter for screening for malignant neoplasm of cervix GYNECOLOGIC CYTOLOGY Routine 02/01/2023 10:00 AM [facility] Encounter for screening for malignant neoplasm of cervix HPV HIGH RISK TYPES DNA CERVICAL Routine 02/01/2023 10:00 AM [facility] Encounter for screening for malignant neoplasm of cervix from Last 3 Months Results * (ABNORMAL) Lipid Profile (02/01/2023 10:25 AM [facility]) Cholesterol 198 <200 mg/dL 02/01/2023 2:46 PM [facility] Triglycerides 102 <150 mg/dL 02/01/2023 2:46 PM [facility] Direct Measure HDL 53 >=50 mg/dL 02/01/2023 2:46 PM [facility] LDL Cholesterol Calculated 125(H) <=100 mg/dL 02/01/2023 2:46 PM [facility] Non HDL Cholesterol 145(H) <130 mg/dL 02/01/2023 2:46 PM [facility] Blood TOPOGRAPHY UNKNOWN / Unknown Client Draw / Unknown 02/01/2023 10:25 AM [facility] 02/01/2023 1:09 PM [facility] Narrative [facility] - 02/01/2023 2:46 PM [facility] Cholesterol Desirable: ??<200 mg/dL Triglycerides Normal: ??Less [...] - BLOOD ORD SANDRITA Performing Organization Address City/[facility]/ZIP Co de Phone Number [facility] [place] [facility] [address] [facility], [address] [address], [facility] [phone] * Hemoglobin A1c (02/01/2023 10:25 AM [facility]) Hemoglobin A1C 5.2 <5.7 % 02/01/2023 1:39 PM [facility] Comment: Normal <5.7% Prediabetes 5.7-6.4% ?? Diabetes 6.5% or higher Note: Adopted from ADA consensus guidelines. Blood TOPOGRAPHY UNKNOWN / Unknown Client Draw / Unknown 02/01/2023 10:25 AM [facility] 02/01/2023 1:08 PM [facility] Jericho Hernandez PA-C LAB - BLOOD ORD SANDRITA [facility] [place] [facility] [address] [facility], [address] [place] [address], [facility] [phone] * (ABNORMAL) CBC with platelets (02/01/2023 10:25 AM [facility]) WBC Count 8.4 4.0 - 11.0 10e3/uL 02/01/2023 1:28 PM [facility] RBC Count 5.34(H) 3.80 - 5.20 10e6/uL 02/01/2023 1:28 PM [facility] Hemoglobin 15.0 11.7 - 15.7 g/dL 02/01/2023 1:28 PM [facility] Hematocrit 46.6 35.0 - 47.0 % 02/01/2023 1:28 PM [facility] MCV 87 78 - 100 fL 02/01/2023 1:28 PM [facility] MCH 28.1 26.5 - 33.0 pg 02/01/2023 1:28 PM [facility] MCHC 32.2 31.5 - 36.5 g/dL 02/01/2023 1:28 PM [facility] RDW 13.8 10.0 - 15.0 % 02/01/2023 1:28 PM [facility] Platelet Count 330 150 - 450 10e3/uL 02/01/2023 1:28 PM [facility] Blood BLOOD SPECIMEN / Unknown Client Draw / Unknown 02/01/2023 10:25 AM [facility] 02/01/2023 1:08 PM [facility] Jericho Hernandez PA-C LAB - BLOOD ORD ERABLES [facility] [place] [facility] [address] [facility], [address] [address], [facility] [phone] * HPV Hold (Lab Only) (02/01/2023 10:00 AM [facility]) Brushing CERVIX UTERI STRUCTURE / Unknown Non-blood Collection / Unknown 02/01/2023 10:00 AM [facility] 02/04/2023 8:08 AM [facility] Jericho Hernandez PA-C LAB - BE[facility]ST[facility] [address] [facility], [address] [address], [facility] [phone] * Gynecologic Cytology (PAP) (02/01/2023 10:00 AM [facility]) Interpretation Negative for Intraepithelial Lesion or Malignancy (NILM) 02/03/2023 9:[address] [facility] Comment Papanicolaou Test Limitations: Cervical cytology is a screening test with limited sensitivity, and regular screening is critical for cancer prevention. Pap tests are primarily effective for the diagnosis/prevent ion of squamous cell carcinoma, not adenocarcinoma or other cancers. 02/03/2023 9:28 AM [facility] Specimen Adequacy Satisfactory for evaluation, endocervical/wilkes sformation zone component present 02/03/2023 9:28 AM [facility] Clinical Information none 02/03/2023 9:28 AM [facility] LMP/Menopause Date 01-24-2023 02/03/2023 9:[address] [facility] Reflex Testing Yes regardless of result 02/03/2023 9:28 AM [facility] Previous Abnormal? No 02/03/2023 9:28 AM [facility] Previous Abnormal Diagnosis NILM with NEG HPV 02/03/2023 9:[address] [facility] Performing Labs The technical component of this testing was completed at [facility] 02/03/2023 9:[address] [facility] Brushing CERVIX UTERI STRUCTURE / Unknown 02/01/2023 10:00 AM [facility] 02/01/2023 1:15 PM [facility] Jericho [facility] Specialty Lab [address] [facility], [address] [place] [address], [facility] [phone] * HPV High Risk Types DNA Cervical (02/01/2023 10:00 AM [facility]) Other HR HPV Negative Negative 02/04/2023 3:03 PM [facility] HPV16 DNA Negative Negative 02/04/2023 3:03 PM [facility] HPV18 DNA Negative Negative 02/04/2023 3:03 PM [facility] FINAL DIAGNOSIS This patient's sample is negative for HPV DNA. This test was developed and its performance characteristics determined by the [facility], Molecular Diagnostics Laboratory. It has not been [...] clinical followup is recommended. 02/04/2023 3:03 PM [facility] Brushing CERVIX UTERI STRUCTURE / Unknown Non-blood Collection / Unknown 02/01/2023 10:00 AM [facility] 02/04/2023 8:08 AM [facility] Jericho Hernandez PA-C LAB - BLOOD ORD ERABLES [facility] DIAGNOST[facility] [address] [facility], [address] [place] [address], [facility] [phone] from Last 3 Months Care Teams Tanbark Laborer Relationship Specialty Start Date End Date Teena Hargrove MD [address] [place] [phone] PCP - General forge operator helper 1/10/21 Seble Dickinson PA-C [address] [address] Physician Flexible Machining System Machinist Urology 08/24/22
--- OUTSIDE RECORDS SUMMARY | 2023-04-06 19:22 | XMS_ITS | Referral Summary ---
Author Name Unknown Organization [facility] Address [address] [place] [address] Care Team Providers Care Tour Driver Name Role Phone Elsewhere, Pcp Primary Care Provider Unavailabl e Source Comments Patient records contain information from all sites at [facility]. For routine questions regarding patient records, call [phone] during business hours, M-F 8:00 AM - 5:00 PM Central Time. Record requests for emergency care only can be directed to [phone] at any time.[facility] Encounters Date Type Department Care Team Description 03/30/2023 Orders Only Urgent Care, [facility], in [address] [phone] Mario Valle P.A.-CSona Urinary Tract Infection Site Not Specified (Primary Dx) 03/27/2023 10:14 AM BACK TENDER PAPER MACHINE - 03/27/2023 11:59 PM BACK TENDER PAPER MACHINE Hospital Encounter Department of Radiology in [address] [phone] Mario Valle P.A.-C. Abdominal Pain Discharge Disposition: Home or Self Care 03/27/2023 9:00 AM BACK TENDER PAPER MACHINE Office Visit Urgent Care, [facility], in [address] [phone] Mario Valle P.A.-CSona Abdominal Pain (Primary Dx) Discharge Disposition: Home or Self Care 03/25/2023 9:23 AM BACK TENDER PAPER MACHINE - 03/25/2023 11:59 PM [facility] Hospital Encounter Department of Radiology, [facility], in [place], [place] [address] [place] [address] Ronal Henderson M.D. Johnson, David W, M.D. Pain Left Lower Quadrant Discharge Disposition: Home or Self Care 03/12/2023 8:27 AM BACK TENDER PAPER MACHINE - 03/12/2023 9:04 AM [facility] Emergency [facility] [address] [place] [phone] Wendy Calzada D.O. Dysphagia (Primary Dx); Foreign Body Swallowed Initial Discharge Disposition: Home or Self Care 03/11/2023 8:53 PM BACK TENDER PAPER MACHINE - 03/12/2023 2:30 AM [facility] Emergency Department [address] [place] [phone] Boyd Lynn M.D. Lightheadedness (Primary Dx) Discharge Disposition: Home or Self Care 03/10/2023 8:44 AM BACK TENDER PAPER MACHINE - 03/10/2023 11:30 AM [facility] [address] [place] [phone] Jesus Manuel Hensley M.D. Influenza Like Illness (Primary Dx); Dehydration; Hypokalemia Discharge Disposition: Home or Self Care 03/08/2023 Nurse Triage [facility] Department of Family Medicine in [place], [place] [address] [facility] [place] [place] [address] Suha Lea R.N. Med Question 03/08/2023 1:52 PM BACK TENDER PAPER MACHINE - 03/08/2023 4:01 PM [facility] Emergency [facility] [place] [facility] [address] [place] [address] Ronal Henderson M.D. Pain Left Lower Quadrant (Primary Dx); Pain Left Upper Quadrant; Abdominal Pain Discharge Disposition: Home or Self Care 03/02/2023 Clinical Communication Division of Gastroenterology in [place], [place] [address] [place] [address] Thaddeus Cosme M.D., Ph.D. 02/15/2023 1:45 PM BACK TENDER PAPER MACHINE Office Visit Urgent Care, [facility], in [place], [place] [address] [place] [address] Lela Aguiar P.A.-C. Pain Epigastric (Primary Dx) Discharge Disposition: Home or Self Care from Last 3 Months Allergies No known active allergies Medications Medication [...] for 7 days. 14 tablet 0 03/30/2023 4 Active dicyclomine (BENTYL) 20 mg tablet [...] updated by automated process. Provider to review Immunizations Name Administration Dates Next Due 4vHPV (discontinued) 01/09/2008 9vHPV 01/09/2008 Influenza TIV (IM) 11/22/2017, 3,01/09/2008,2006 Influenza, Injectable, Mdck, Preservative Free, Quadrivalent 11/30/2019 Influenza, Seasonal, Injectable 03/18/2012,01/08,04/15/2006 SARS-COV-2 (COVID-19) - MODERNA 06/27/2020,05/29 Tdap 07/23/2020, 8,01/15/2014,2006 influenza vaccine quad (FLUZONE/FLUARIX) (6 months and older)(PF) 11/23/2018,11/22/2017 Social History Tobacco Use Types Packs/Day Years [...] often do you attend chur ch or rastafari services? 1 to 4 times per year 04/03/2022 Do you belong to any clubs o r organizations such as orthodoxy groups, unions, fraternal or athletic groups, or [...] Answer Date Recorded PHQ-2 Score 0 12/10/2021 [facility] [place] [facility] Occup[facility] ional [facility] - Occupational Stress [...] place to sleep or slept in a long term (including now)? No 04/03/2022 Depression Answer Date [...] Comments Blood Pressure 117/81 03/27/2023 8:42 AM BACK TENDER PAPER MACHINE Pulse 94 03/27/2023 8:42 AM BACK TENDER PAPER MACHINE Temperature 36.2 ??C (97.2 ??F) 03/27/2023 8:42 AM CS T Respiratory Rate 16 03/12/2023 8:34 AM BACK TENDER PAPER MACHINE Oxygen Saturation 98% 03/27/2023 8:42 AM BACK TENDER PAPER MACHINE Inhaled Oxygen Concentration - - Weight 95.8 kg (211 lb 4.8 oz) 03/27/2023 8:42 A M BACK TENDER PAPER MACHINE Height 169.4 cm (5' 6.69) 03/27/2023 8:42 AM CS T Body Mass Index 33.4 03/27/2023 8:42 AM BACK TENDER PAPER MACHINE Plan of Treatment Not on file Procedures Procedure Name Priority Date/Time Associated Diagnosis Comments TISSUE TRANSGLUTAMINASE (TTG) AB, IGA, S STAT 03/27/2023 11:44 AM BACK TENDER PAPER MACHINE CELIAC DISEASE COMPREHENSIVE CASCADE STAT 03/27/2023 11:44 AM BACK TENDER PAPER MACHINE Abdominal Pain CT ABDOMEN PELVIS WITH IV CONTRAST RAD - Routine (most inpatients and all outpatients) 03/27/2023 10:35 AM BACK TENDER PAPER MACHINE Abdominal Pain TEST, POCT, U (LAB) STAT 03/27/2023 10:03 AM BACK TENDER PAPER MACHINE Abdominal Pain HC URINALYSIS AUTO W MICRO STAT 03/27/2023 10:03 AM BACK TENDER PAPER MACHINE URINALYSIS WITH MICROSCOPIC IF INDICATED, U STAT 03/27/2023 10:03 AM BACK TENDER PAPER MACHINE Abdominal Pain BACTERIAL CULTURE, AEROBIC + SUSC, URINE STAT 03/27/2023 10:03 AM BACK TENDER PAPER MACHINE Abdominal Pain LIPASE, S/P STAT 03/27/2023 9:32 AM BACK TENDER PAPER MACHINE Abdominal Pain C-REACTIVE PROTEIN (CRP), S/P STAT 03/27/2023 9:32 AM BACK TENDER PAPER MACHINE Abdominal Pain COMPREHENSIVE METABOLIC PANEL, S/P STAT 03/27/2023 9:32 AM BACK TENDER PAPER MACHINE Abdominal Pain CBC WITH DIFFERENTIAL, B STAT 03/27/2023 9:32 AM BACK TENDER PAPER MACHINE Abdominal Pain FL ESOPHAGRAM SINGLE CONTRAST RAD - Routine (most inpatients and all outpatients) 03/25/2023 10:08 AM BACK TENDER PAPER MACHINE Pain Left Lower Quadrant TROPONIN T, 2H/6H, 5TH GEN, P Timed 03/12/2023 12:41 AM BACK TENDER PAPER MACHINE TROPONIN T, BASELINE, 5TH GEN, P STAT 03/11/2023 10:57 PM BACK TENDER PAPER MACHINE BASIC METABOLIC PANEL, S/P STAT 03/11/2023 10:57 PM BACK TENDER PAPER MACHINE CBC WITH DIFFERENTIAL, B STAT 03/11/2023 10:57 PM BACK TENDER PAPER MACHINE ECG STAT 03/10/2023 10:21 AM BACK TENDER PAPER MACHINE DX CHEST AP OR PA AND LATERAL 2 VIEWS RAD - Semiurgent (Fast; most ED patients; some inpatients) 03/10/2023 9:37 AM BACK TENDER PAPER MACHINE INFLUENZA A, B, RSV, PCR, POCT STAT 03/10/2023 8:49 AM BACK TENDER PAPER MACHINE SARS CORONAVIRUS 2, PCR RAPID, V STAT 03/10/2023 8:49 AM BACK TENDER PAPER MACHINE CBC WITH DIFFERENTIAL, B STAT 03/10/2023 8:39 AM BACK TENDER PAPER MACHINE BASIC METABOLIC PANEL, S/P STAT 03/10/2023 8:39 AM BACK TENDER PAPER MACHINE LIPASE, S/P STAT 03/08/2023 2:50 PM BACK TENDER PAPER MACHINE CBC WITH DIFFERENTIAL, B STAT 03/08/2023 2:50 PM BACK TENDER PAPER MACHINE COMPREHENSIVE METABOLIC PANEL, S/P STAT 03/08/2023 2:50 PM BACK TENDER PAPER MACHINE URINALYSIS WITH MICROSCOPIC STAT 03/08/2023 2:43 PM BACK TENDER PAPER MACHINE BASIC METABOLIC PANEL, S/P STAT 02/15/2023 2:35 PM BACK TENDER PAPER MACHINE Pain Epigastric CBC WITH DIFFERENTIAL, B STAT 02/15/2023 2:35 PM BACK TENDER PAPER MACHINE Pain Epigastric from Last 3 Months Results * Celiac Disease Comprehensive [place] (03/27/2023 11:44 AM BACK TENDER PAPER MACHINE) HLA-DQA1 Locus Molecular 01:03, 05 Not Applicable 03/31/2023 2:18 PM BACK TENDER PAPER MACHINE DBB8 HLA-DQB1 Locus Molecular 03:03, 06:03 Not Applicable 03/31/2023 2:18 PM BACK TENDER PAPER MACHINE DBB8 Comment: DQ Serologic Equivalent: 9, 6 Celiac Gene Pairs Present? No 03/31/2023 2:18 PM BACK TENDER PAPER MACHINE DBB8 Comment: Method: Molecular typing of HLA antigens performed using reverse SSOP and/or SSP methods, reported as serological equivalents and low to medium resolution molecular values. Based on the catalog of common, intermediate, and well-documented alleles in the world population (CWID 3.0 Yudi LINDSAY et.al, HLA. 2020:516-531), certain intermediate or common alleles in some ethnicities may not be resolved. Kindly contact laboratory if ethnic specific resolution is required. CLIA: [id number] ??CLIA Live In Housekeeper Nanny: KLAUS MANCUSO MD,PhD Immunoglobulin A (IgA), S 122 61 - 356 mg/dL 03/29/2023 2:59 PM BACK TENDER PAPER MACHINE [facility] Celiac Disease Interpretation See Comment: Permissive genes absent and negative serology. Celiac disease extremely unlikely. 03/31/2023 10:53 PM BACK TENDER PAPER MACHINE [facility] Blood (Blood, Venous) 03/27/2023 11:44 AM BACK TENDER PAPER MACHINE 03/29/2023 8:00 AM BACK TENDER PAPER MACHINE Narrative [facility] - 03/31/2023 10:53 PM BACK TENDER PAPER MACHINE Specimen Information: Specimen ID: [id number] Specimen Type: Blood Specimen Collection Start Date: 03/27/2023 11:44 AM Specimen Received Date: 03/29/2023 ??8:00 AM Specimen ID: [id number] Specimen Type: Blood Specimen Collection Start Date: 03/27/2023 11:44 AM Specimen Received Date: 03/29/2023 ??6:42 AM Specimen ID: [id number] Specimen Type: Blood Specimen Collection Start Date: 03/27/2023 11:44 AM Specimen Received Date: 03/29/2023 ??7:40 AM Mario Valle P.A.-C. LAB BLOOD N ON ADD-ON Performing Organization Address [facility] Co de Phone Number [facility] [address] [place] [address] [id number] [facility] [address] [place] [address] [facility] [address] [place] [address] [place] [address] [place] [address] * tTG (Tissue Transglutaminase), Antibody, IgA (03/27/2023 11:44 AM BACK TENDER PAPER MACHINE) Tissue Transglutaminase Ab, IgA, S <1.2 <4.0 (Negative ) U/mL 03/30/2023 12:34 PM BACK TENDER PAPER MACHINE [facility] Blood 03/27/2023 11:4 4 AM BACK TENDER PAPER MACHINE 03/29/2023 3:34 PM BACK TENDER PAPER MACHINE Mario Valle P.A.-C. LAB BLOOD A DD-ON Performing Organization Address [facility] Co de Phone Number [facility] [address] [place] [address] [facility] [address] [place] [address] * CT Abdomen Pelvis with IV Contrast (03/27/2023 10:35 AM BACK TENDER PAPER MACHINE) Anatomical Region Laterality Modality Abdomen, Pelvis, Abdominal R ST LOS, Abdominal ARZ LOS, Abdominal FLA LOS N/A Computed Tomography 03/27/2023 10:3 9 AM BACK TENDER PAPER MACHINE Impressions 03/27/2023 11:01 AM BACK TENDER PAPER MACHINE 1. Normal-appearing appendix. 2. No acute intra-abdominal/pelvic pathology, no CT findings to explain the patient's symptoms of right lower quadrant abdominal pain. Narrative 03/27/2023 11:01 AM BACK TENDER PAPER MACHINE EXAM: CT ABDOMEN PELVIS WITH IV CONTRAST [...] appendix in the right lower quadrant on [id number] of series 3. No small bowel or [...] lower quadrant abdominal pain. Mario Valle P.A.-C. [facility] PROC EDURES * (ABNORMAL) Urinalysis with Microscopic if Indicated (03/27/2023 10:03 AM BACK TENDER PAPER MACHINE) Source Urine, Urine, Midstream 03/27/2023 10:17 AM BACK TENDER PAPER MACHINE [facility] Clarity Clear Clear 03/27/2023 10:20 AM BACK TENDER PAPER MACHINE [facility] Color Yellow 03/27/2023 10:20 AM BACK TENDER PAPER MACHINE [facility] Comment: ----REFERENCE VALUE---- Colorless Yellow Chasity Blood Negative Negative 03/27/2023 10:20 AM BACK TENDER PAPER MACHINE [facility] Nitrite Negative Negative 03/27/2023 10:20 AM BACK TENDER PAPER MACHINE [facility] Leukocyte Esterase Small(A) Negative 03/27/2023 10:20 AM BACK TENDER PAPER MACHINE [facility] Protein Negative mg/dL 03/27/2023 10:20 AM BACK TENDER PAPER MACHINE [facility] Comment: ----REFERENCE VALUE---- Negative Trace Glucose Negative Negative mg/dL 03/27/2023 10:20 AM BACK TENDER PAPER MACHINE NPR[facility] Ketones, QI(U) Negative Negative mg/dL 03/27/2023 10:20 AM BACK TENDER PAPER MACHINE NPR[facility] Bilirubin Negative Negative 03/27/2023 10:20 AM BACK TENDER PAPER MACHINE NPR[facility] pH 7.0 5.0 - 8.0 03/27/2023 10:20 AM BACK TENDER PAPER MACHINE NPR[facility] Specific [place] 1.015 1.001 - 1.035 03/27/2023 10:20 AM BACK TENDER PAPER MACHINE NPR[facility] Urobilinogen 0.2 0.2 - 1.0 mg/dL 03/27/2023 10:20 AM BACK TENDER PAPER MACHINE NPR[facility] Urine (Urine, Midstream) 03/27/2023 10:03 AM BACK TENDER PAPER MACHINE 03/27/2023 10:17 AM BACK TENDER PAPER MACHINE Mario Valle P.A.-C. LAB URINE O RDERABLES Performing Organization Address City/[facility]/ZIP Co de Phone Number [facility] [address] [place] [address], [place] NPRG [place] [address] [address] [place] [address] * (ABNORMAL) Microscopic Manual (03/27/2023 10:03 AM BACK TENDER PAPER MACHINE) White Blood Cells Occ-3 /hpf 03/27/2023 10:32 AM BACK TENDER PAPER MACHINE NPRG Comment: ----REFERENCE VALUE---- Males: 0-3 Females: 0-10 Unknown: 0-10 Red Blood Cells None Seen 0 - 2 /hpf 03/27/2023 10:32 AM BACK TENDER PAPER MACHINE NPR[facility] Squamous Cells Occ-3 /hpf 03/27/2023 10:32 AM BACK TENDER PAPER MACHINE NPR[facility] Bacteria Present(A) None Seen 03/27/2023 10:32 AM BACK TENDER PAPER MACHINE NPRG Urine 03/27/2023 10:0 3 AM BACK TENDER PAPER MACHINE 03/27/2023 10:17 AM BACK TENDER PAPER MACHINE Mario Valle P.A.-C. LAB URINE O RDERABLES Performing Organization Address City/[facility]/ZIP Co de Phone Number [facility] [address] [place] [address], [place] [address] [place] [address] [address] [address] * (ABNORMAL) Bacterial Culture, Aerobic + Susceptibility, Urine (03/27/2023 10:03 AM BACK TENDER PAPER MACHINE) Urine Culture with mixed microbiota(A) 03/30/2023 6:38 AM BACK TENDER PAPER MACHINE MKTO Urine Culture PSEUDOMONAS AERUGINOSA >100,000 cfu/mL (A) 03/30/2023 6:38 AM BACK TENDER PAPER MACHINE MKTO Urine Culture KLEBSIELLA PNEUMONIAE COMPLEX 10,000-100,000 cfu/mL (A) 03/30/2023 6:38 AM BACK TENDER PAPER MACHINE MKTO Urine (Urine, Midstream) 03/27/2023 10:03 AM BACK TENDER PAPER MACHINE 03/27/2023 4:21 PM BACK TENDER PAPER MACHINE Comment:Specimen Source Site : Urine Narrative Organism [...] P.A.-C. LAB MICROBI OLOGY - GENERAL ORDERABLES [facility] [address] [place] [address], [facility] MKTO [facility] [place] [address] [place] [address] * Test, POCT, Urine (Lab) (03/27/2023 10:03 AM BACK TENDER PAPER MACHINE) Test, POCT, U Negative 03/27/2023 10:25 AM BACK TENDER PAPER MACHINE NPRG Urine (Urine, Midstream) 03/27/2023 10:03 AM BACK TENDER PAPER MACHINE 03/27/2023 10:17 AM BACK TENDER PAPER MACHINE Mario Valle P.A.-C. LAB POCT OR DERABLES - DEVICE [facility] [address] [place] [address], [facility] NPRG [facility] [address] [place] [address] * CBC with Differential, Blood (03/27/2023 9:32 AM BACK TENDER PAPER MACHINE) Only the most recent of5 resultswithin the time period is included. Hemoglobin 13.9 11.6 - 15.0 g/dL 03/27/2023 9:41 AM BACK TENDER PAPER MACHINE NPRG Hematocrit 42.7 35.5 - 44.9 % 03/27/2023 9:41 AM BACK TENDER PAPER MACHINE NPR[facility] Erythrocytes 4.95 3.92 - 5.13 x10(12)/L 03/27/2023 9:41 AM BACK TENDER PAPER MACHINE NPRG MCV 86.3 78.2 - 97.9 fL 03/27/2023 9:41 AM BACK TENDER PAPER MACHINE NPRG RBC Distrib Width 14.7 12.2 - 16.1 % 03/27/2023 9:41 AM BACK TENDER PAPER MACHINE NPRG Platelet Count 278 157 - 371 x10(9)/L 03/27/2023 9:41 AM BACK TENDER PAPER MACHINE NPRG Leukocytes 7.4 3.4 - 9.6 x10(9)/L 03/27/2023 9:41 AM BACK TENDER PAPER MACHINE NPRG Neutrophils 5.52 1.56 - 6.45 x10(9)/L 03/27/2023 9:41 AM BACK TENDER PAPER MACHINE NPRG Lymphocytes 1.09 0.95 - 3.07 x10(9)/L 03/27/2023 9:41 AM BACK TENDER PAPER MACHINE NPR[facility] Monocytes 0.65 0.26 - 0.81 x10(9)/L 03/27/2023 9:41 AM BACK TENDER PAPER MACHINE NPRG Eosinophils 0.16 0.03 - 0.48 x10(9)/L 03/27/2023 9:41 AM BACK TENDER PAPER MACHINE NPRG Basophils 0.01 0.01 - 0.08 x10(9)/L 03/27/2023 9:41 AM BACK TENDER PAPER MACHINE NPRG Blood (Blood, Venous) 03/27/2023 9:32 AM BACK TENDER PAPER MACHINE 03/27/2023 9:37 AM BACK TENDER PAPER MACHINE Mario Valle P.A.-C. LAB BLOOD A DD-ON [facility] [address] [place] [address], [facility] NPRG [facility] [address] [place] [address] * (ABNORMAL) CRP (C-Reactive Protein) (03/27/2023 9:32 AM BACK TENDER PAPER MACHINE) Pathologist [facility] C-Reactive Protein (CRP), P 15.2(H) <5.0 mg/L 03/27/2023 10:02 AM BACK TENDER PAPER MACHINE NPRG Blood (Blood, Venous) 03/27/2023 9:32 AM BACK TENDER PAPER MACHINE 03/27/2023 9:37 AM BACK TENDER PAPER MACHINE Mario Valle P.A.-C. LAB BLOOD A DD-ON Performing Organization Address [facility]/ZIP Co de Phone Number [facility] [address] [place] [address], [facility] NPRG [place] [address] [address] [address] * Lipase (03/27/2023 9:32 AM BACK TENDER PAPER MACHINE) Only the most recent of2 resultswithin the time period is included. Lipase, P 36 13 - 60 U/L 03/27/2023 10:02 AM BACK TENDER PAPER MACHINE NPRG Blood (Blood, Venous) 03/27/2023 9:32 AM BACK TENDER PAPER MACHINE 03/27/2023 9:37 AM BACK TENDER PAPER MACHINE Mario ClarkC. LAB BLOOD A DD-ON Performing Organization Address [facility] Co de Phone Number [facility] [address] [place] [address], [place] [address] [address] [address] * Comprehensive Metabolic Panel (03/27/2023 9:32 AM BACK TENDER PAPER MACHINE) Only the most recent of2 resultswithin the time period is included. Potassium, P 4.0 3.6 - 5.2 mmol/L 03/27/2023 10:02 AM BACK TENDER PAPER MACHINE NPRG Sodium, P 139 135 - 145 mmol/L 03/27/2023 10:02 AM BACK TENDER PAPER MACHINE NPRG Chloride, P 105 98 - 107 mmol/L 03/27/2023 10:02 AM BACK TENDER PAPER MACHINE NPRG Bicarbonate, P 22 22 - 29 mmol/L 03/27/2023 10:02 AM BACK TENDER PAPER MACHINE NPRG Anion Gap, P 12 7 - 15 03/27/2023 10:02 AM BACK TENDER PAPER MACHINE NPR[facility] BUN (Blood Urea Nitrogen), P 8 6 - 21 mg/dL 03/27/2023 10:02 AM BACK TENDER PAPER MACHINE NPRG Creatinine 0.87 0.59 - 1.04 mg/dL 03/27/2023 10:02 AM BACK TENDER PAPER MACHINE NPRG Estimated GFR (eGFR) 86 >=60 mL/min/BS A 03/27/2023 10:02 AM BACK TENDER PAPER MACHINE NPRG Comment: Estimated GFR calculated using the 2020 CKD_EPI creatinine equation. Calcium, Total, P 9.1 8.6 - 10.0 mg/dL 03/27/2023 10:02 AM BACK TENDER PAPER MACHINE NPRG Glucose, P 93 70 - 140 mg/dL 03/27/2023 10:02 AM BACK TENDER PAPER MACHINE NPRG Protein, Total, P 6.5 6.3 - 7.9 g/dL 03/27/2023 10:02 AM BACK TENDER PAPER MACHINE NPRG Albumin, P 4.0 3.5 - 5.0 g/dL 03/27/2023 10:02 AM BACK TENDER PAPER MACHINE NPRG Aspartate Aminotransferase (AST), P 14 8 - 43 U/L 03/27/2023 10:02 AM BACK TENDER PAPER MACHINE NPRG Alkaline Phosphatase, P 69 35 - 104 U/L 03/27/2023 10:02 AM BACK TENDER PAPER MACHINE NPRG Alanine Aminotransferase (ALT), P 30 7 - 45 U/L 03/27/2023 10:02 AM BACK TENDER PAPER MACHINE NPRG Bilirubin, Total, P 0.5 0.0 - 1.2 mg/dL 03/27/2023 10:02 AM BACK TENDER PAPER MACHINE NPRG Blood (Blood, Venous) 03/27/2023 9:32 AM BACK TENDER PAPER MACHINE 03/27/2023 9:37 AM BACK TENDER PAPER MACHINE Mario Valle P.A.-C. LAB BLOOD A DD-ON [facility] [address] [place] [address], [place] [facility] [address] [place] [address] * FL Esophagram Single Contrast (03/25/2023 10:08 AM BACK TENDER PAPER MACHINE) Anatomical Region Laterality Modality Gastro Intestinal, Abdominal RST LOS, Abdominal ARZ LOS, Abdominal FLA LOS N/A Digital Radiography Impressions 03/25/2023 10:13 AM BACK TENDER PAPER MACHINE Small sliding-type hiatal hernia. No reflux observed. Narrative 03/25/2023 10:13 AM BACK TENDER PAPER MACHINE EXAM: FL ESOPHAGRAM SINGLE CONTRAST FINDINGS: Normal [...] reflux observed. Ronal Henderson M.D. IMG FLUOROSCOPY WA OCEDURES * Troponin T, 2h/6h, 5th Gen (03/12/2023 12:41 AM BACK TENDER PAPER MACHINE) Troponin T, 2 hr, 5th gen <6 <=10 ng/L 03/12/2023 1:03 AM BACK TENDER PAPER MACHINE NPRG 2H Delta 0 ng/L 03/12/2023 1:03 AM BACK TENDER PAPER MACHINE NPRG 2H Delta Interp Not Changing 03/12/2023 1:03 AM BACK TENDER PAPER MACHINE NPRG Troponin T, 6 hr, 5th gen CANCELED ng/L 03/12/2023 1:03 AM BACK TENDER PAPER MACHINE NPRG Comment:Result canceled by t he ancillary. 6H Delta CANCELED ng/L 03/12/2023 1:03 AM BACK TENDER PAPER MACHINE NPRG Comment:Result canceled by t he ancillary. 6H Delta % CANCELED % 03/12/2023 1:03 AM BACK TENDER PAPER MACHINE NPRG Comment:Result canceled by t he ancillary. Blood (Blood, Venous) 03/12/2023 12:41 AM BACK TENDER PAPER MACHINE 03/12/2023 12:43 AM BACK TENDER PAPER MACHINE Narrative [facility] - 03/12/2023 1:03 AM BACK TENDER PAPER MACHINE Specimen Information: Specimen ID: [id number] Specimen Type: Blood Specimen Collection Start Date: 03/12/2023 12:41 AM Specimen Received Date: 03/12/2023 12:43 AM Specimen ID: [id number] Specimen Type: Blood Boyd Lynn M.D. LAB BLOOD TROPONIN [facility] [address] [place] [address], [facility] NPRG [place] [address] [address] [address] * Troponin T, Baseline, 5th gen (03/11/2023 10:57 PM BACK TENDER PAPER MACHINE) Troponin T, Baseline, 5th gen <6 <=10 ng/L 03/11/2023 11:50 PM BACK TENDER PAPER MACHINE NPRG Blood (Blood, Venous) 03/11/2023 10:57 PM BACK TENDER PAPER MACHINE 03/11/2023 11:01 PM BACK TENDER PAPER MACHINE Boyd Lynn M.D. LAB BLOOD TROPONIN Performing Organization Address City/[facility]/ZIP Co de Phone Number [facility] [address] [place] [address], [facility] NPRG [address] [address] * Basic Metabolic Panel (03/11/2023 10:57 PM BACK TENDER PAPER MACHINE) Only the most recent of3 resultswithin the time period is included. Potassium, P 4.0 3.6 - 5.2 mmol/L 03/11/2023 11:25 PM BACK TENDER PAPER MACHINE NPRG Sodium, P 139 135 - 145 mmol/L 03/11/2023 11:25 PM BACK TENDER PAPER MACHINE NPRG Chloride, P 104 98 - 107 mmol/L 03/11/2023 11:25 PM BACK TENDER PAPER MACHINE NPR[facility] Bicarbonate, P 23 22 - 29 mmol/L 03/11/2023 11:25 PM [employer] NPRG Anion Gap, P 12 7 - 15 03/11/2023 11:25 PM [employer] NPRG BUN (Blood Urea Nitrogen), P 9 6 - 21 mg/dL 03/11/2023 11:25 PM [employer] NPRG Creatinine 0.83 0.59 - 1.04 mg/dL 03/11/2023 11:25 PM [employer] NPRG Estimated GFR (eGFR) >90 >=60 mL/min/BSA 03/11/2023 11:25 PM [employer] NPRG Comment: Estimated GFR calculated using the 2020 CKD_EPI creatinine equation. Calcium, Total, P 9.6 8.6 - 10.0 mg/dL 03/11/2023 11:25 PM [employer] NPRG Glucose, P 98 70 - 140 mg/dL 03/11/2023 11:25 PM [employer] NPRG Blood (Blood, Venous) 03/11/2023 10:57 PM [employer] 03/11/2023 11:01 PM [employer] Boyd Lynn M.D. LAB BLOOD ADD-ON [facility] [address] [place] [address], [place] NPRG [facility] [address] [place] [address] * ECG 12 Lead (03/10/2023 10:21 AM [employer]) Ventricular Rate ECG/Min 73 BPM MUSE WA Interval 132 ms MUSE QRSD Interval 90 ms MUSE QT Interval 416 ms MUSE QTC Interval 458 ms MUSE P Kinzers 66 degrees MUSE R Kinzers 14 degrees MUSE T Wave Kinzers -1 degrees MUSE 03/10/2023 10:2 1 AM BACK TENDER PAPER MACHINE 03/10/2023 10:42 AM BACK TENDER PAPER MACHINE Impressions MUSE - 03/10/2023 10:40 AM BACK TENDER PAPER MACHINE Normal sinus rhythm Nonspecific ST and T wave abnormality When compared with ECG of 07-OCT-2022 12:07, WA interval has increased Reviewed by WHIT Plummer Narrative Procedure Note Daquan Hess M.D., M.P.H. - 03/10/2023 IMPRESSION: Normal sinus rhythm Nonspecific ST and T wave abnormality When compared with ECG of 07-OCT-2022 12:07, WA interval has increased Reviewed by WHIT Plummer Jesus Manuel Hensley M.D. ECG ORDERABLES Performing Organization Address City/[facility]/ZIP Co de Phone Number MUSE NA * DX Chest AP or PA and Lateral 2 Views (03/10/2023 9:37 AM BACK TENDER PAPER MACHINE) Anatomical Region Laterality Modality Chest, Thoracic RST LOS, Tho racic ARZ LOS, Thoracic FLA LOS N/A Digital Radiography Impressions 03/10/2023 9:38 AM BACK TENDER PAPER MACHINE Stable chest, no acute cardiopulmonary disease. Narrative 03/10/2023 9:38 AM BACK TENDER PAPER MACHINE EXAM: DX CHEST AP OR PA AND [...] 2, PCR Rapid Symptomatic (03/10/2023 8:49 AM BACK TENDER PAPER MACHINE) Pathologist [facility] SARS CoV-2, PCR, Rapid, V Undetected Undetected 03/10/2023 9:12 AM BACK TENDER PAPER MACHINE NPRG Comment: ----ADDITIONAL INFORMATION---- This RT-PCR test was performed using the [employer] SARS-CoV-2 and Influenza A/B Reagent assay from [facility] [employer], which has received Emergency Use Authorization(EUA) by the U.S. Food and Drug Administration. Fact sheets for this Emergency Use Authorization (EUA) assay can be found at the following links: For Healthcare Providers: https://www.fda.gov/media/563538/download For Patients: https://www.fda.gov/media/877875/download SARS Coronavirus 2, Source, Rapid Swab, Nasopharynx 03/10/2023 8:49 AM BACK TENDER PAPER MACHINE NPRG Swab (Nasopharynx) 03/10/2023 8:49 AM BACK TENDER PAPER MACHINE 03/10/2023 8:49 AM BACK TENDER PAPER MACHINE Jesus Manuel Hensley M.D. LAB MICROBIOLOGY - G ENERAL ORDERABLES Performing Organization Address [facility]/ZIP Co de Phone Number [facility] [address] [place] [address], [address] [address] * Influenza A/B and RSV, PCR, Point of Care (03/10/2023 8:49 AM BACK TENDER PAPER MACHINE) Pathologist [facility] Influenza A, POCT Negative Negative 03/10/2023 8:53 AM BACK TENDER PAPER MACHINE NPRG Influenza B, POCT Negative Negative 03/10/2023 8:53 AM BACK TENDER PAPER MACHINE NPRG Resp Syncytial Virus, POCT Negative Negative 03/10/2023 8:53 AM BACK TENDER PAPER MACHINE NPRG Swab (Nasopharynx) 03/10/2023 8:49 AM BACK TENDER PAPER MACHINE 03/10/2023 8:49 AM BACK TENDER PAPER MACHINE Jesus Manuel Hensley M.D. LAB POCT ORDERABLES - DEVICE Performing Organization Address [facility] Co de Phone Number [facility] [address] [place] [address], [address] [id number] * (ABNORMAL) Urinalysis with Microscopic: Urine, Midstream (03/08/2023 2:43 PM BACK TENDER PAPER MACHINE) Pathologist [facility] Source Urine, Urine, Midstream 03/08/2023 3:00 PM BACK TENDER PAPER MACHINE MKTO Clarity Clear Clear 03/08/2023 3:00 PM BACK TENDER PAPER MACHINE MKTO Color Yellow 03/08/2023 3:00 PM BACK TENDER PAPER MACHINE MKTO Comment: ----REFERENCE VALUE---- Colorless Yellow Chasity Blood Negative Negative 03/08/2023 3:00 PM BACK TENDER PAPER MACHINE MKTO Nitrite Negative Negative 03/08/2023 3:00 PM BACK TENDER PAPER MACHINE MKTO Leukocyte Esterase Trace(A) Negative 03/08/2023 3:00 PM BACK TENDER PAPER MACHINE MKTO Protein Negative mg/dL 03/08/2023 3:00 PM BACK TENDER PAPER MACHINE MKTO Comment: ----REFERENCE VALUE---- Negative Trace Glucose Negative Negative mg/dL 03/08/2023 3:00 PM BACK TENDER PAPER MACHINE MKTO Ketone Negative Negative mg/dL 03/08/2023 3:00 PM BACK TENDER PAPER MACHINE MKTO Bilirubin Negative Negative 03/08/2023 3:00 PM BACK TENDER PAPER MACHINE MKTO pH 8.5(A) 5.0 - 8.0 03/08/2023 3:00 PM BACK TENDER PAPER MACHINE MKTO Specific [place] 1.007 1.001 - 1.035 03/08/2023 3:00 PM BACK TENDER PAPER MACHINE MKTO Urobilinogen 0.2 0.2 - 1.0 mg/dL 03/08/2023 3:00 PM BACK TENDER PAPER MACHINE MKTO White Blood Cells Occ-3 /hpf 03/08/2023 3:03 PM BACK TENDER PAPER MACHINE MKTO Comment: ----REFERENCE VALUE---- Males: 0-3 Females: 0-10 Unknown: 0-10 Red Blood Cells None Seen 0 - 2 /hpf 3:03 PM BACK TENDER PAPER MACHINE MKTO Squamous Cells Occ-3 /hpf 03/08/2023 3:03 PM BACK TENDER PAPER MACHINE MKTO Urine (Urine, Midstream) 03/08/2023 2:43 PM BACK TENDER PAPER MACHINE 03/08/2023 2:56 PM BACK TENDER PAPER MACHINE Ronal Henderson M.D. LAB URINE ORDERABL ES Performing Organization Address [facility]/State/ZIP Co de Phone Number [facility] [address] [place] [phone], [facility] in [address] [address] from Last 3 Months Care Teams Tour Driver Relationship Specialty Start Date End Date Elsewhere, Pcp PCP - General Internal Medicine 01/07/22
--- OUTSIDE RECORDS SUMMARY | 2023-04-06 19:23 | XMS_ITS | Encounter Summary ---
Author Name Unknown Organization [facility] Address [address] [place] [address] Care Team Providers Care Home Teaching Grades 9 Thru 12 Teacher Name Role Phone Elsewhere, Pcp Primary Care Provider Unavailabl e Reason for Referral * MRI/CAT/PET Scan (Routine) - Closed Specialty Diagnoses / Procedures Referred By Tania t Referred To Contact Radiology Diagnoses Abdominal Pain Procedures CT Abdomen Pelvis with IV Contrast Mario Valle P.ALarry [address] [place] [address] [facility] Region Referral ID Status Reason Start Date Expiration Date Visits Re quested Visits Authorized [id number] Closed 03/27/2023 03/26/2024 1 1 JAVA DEVELOPER ARCHITECT Reason for Visit * Reason Comments Abdominal Pain Had sudden pain and nausea last night. Also had a barium study on morning. Has had bowel movements since Encounter Details Date Type Department Care Team (Late st Contact Info) Description 03/27/2023 9:00 AM LEAD JAVA DEVELOPER ARCHITECT Office Visit Urgent Care, [facility], in [place], [place] [address] [place] [address] Mario Valle P.A.-C. [address], [place] [phone] Abdominal Pain (Primary Dx) Discharge Disposition: Home or Self Care Social History Tobacco Use Types Packs/Day Years Used Date Smoking Tobacco: Never Passive Smoke Exposure: Never Smokeless Tobacco: Never Alcohol Use Standard Drinks/Week Comments Not Currently [...] often do you attend chur ch or buddhism services? 1 to 4 times per year [...] Answer Date Recorded PHQ-2 Score 0 12/10/2021 [facility] - Occupational Stress Questionnaire Answer Date Recorded [...] money to buy more. Never true 04/21/19 Within the past 12 months, t he [...] place to sleep or slept in a snf (including now)? 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 Sexual Orientation Not on file documented as of this encounter Last Filed Vital Signs Vital Sign Reading Time Taken Comments Blood Pressure 117/81 03/27/2023 8:42 AM LEAD JAVA DEVELOPER ARCHITECT Pulse 94 03/27/2023 8:42 AM LEAD JAVA DEVELOPER ARCHITECT Temperature 36.2 ??C (97.2 ??F) 03/27/2023 8:42 AM CS T Respiratory Rate - - Oxygen Saturation 98% 03/27/2023 8:42 AM LEAD JAVA DEVELOPER ARCHITECT Inhaled Oxygen Concentration - - Weight 95.8 kg (211 lb 4.8 oz) 03/27/2023 8:42 A M LEAD JAVA DEVELOPER ARCHITECT Height 169.4 cm (5' 6.69) 03/27/2023 8:42 AM CS T Body Mass Index 33.4 03/27/2023 8:42 AM LEAD JAVA DEVELOPER ARCHITECT documented in this encounter Progress Notes * Mario Valle P.A.-C. - 03/27/2023 9:00 AM CST SUBJECTIVE CHIEF COMPLAINT / REASON FOR VISIT Henny Rivas is a 42 y.o. female who presents for evaluation of Abdominal Pain (Had sudden painand nausea last night. Also had a barium study on morning. Has had bowel movements since). HISTORY OF PRESENT ILLNESS Patient states that She has been feeling ill for 1 day. The abdominal pain has been Moderate and located RLQ . Pt has had no fever . Chills and sweats havebeen absent. She reports nausea w/o vomiting. She states that the pain started around the belly button. She reports h/o constipation, taking daily Miralax. It is not uncommon for her to have some occasional diarrhea. She denied signs of constipation. Also denied frequency and urgency with urination. No household members or close friends have had similar symptoms. Pt denied any recent travel or ingestion of untreated water or suspicious foods. The following portions of the patient's history were reviewed and updated as appropriate: allergies, current medications, family history, medical history, social history, surgical history and problemlist. Brief Review of Systems: A brief review of systems was negative except for that mentioned in the history of present of illness. I have reviewed the current medication list. No Known Allergies OBJECTIVE PHYSICAL EXAM BP 117/81 Pulse 94 Temp 36.2 ??C (Temporal) Ht 169.4 cm Wt 95.8 kg SpO2 98% BMI 33.40 kg/m?? Body mass index is 33.4 kg/m??. GENERAL: this patient is alert and awake in NAD in no acute distress, responds appropriately to auditory and visual stimuli HEENT: mucosa of the mouth is WNL, no sores or other lesions noted, hydration normal RESPIRATORY: lungs are clear to auscultation, no wheezing/rales or rhonchi; normal respiratory effort, no retractions; CVA tenderness absent bilateral ABDOMEN: soft, bowel sounds are present in all four quads; tenderness present in RUQ and RLQ and isModerate , rebound Absent Rovsing sign (indirect tenderness): equivocal Psoas sign (lifting right leg): equivocal Obturator sign (flexed knee) : equivocal HEART: RRR, SKIN: normal color turgor, temperature and moisture, no rashes or lesions are noted; DIAGNOSTICS: Recent Results (from the past 24 hour(s)) CBC with Differential, Blood Collection Time: 03/27/23 9:32 AM Result Value Hemoglobin 13.9 Hematocrit 42.7 Erythrocytes 4.95 MCV 86.3 RBC Distrib Width 14.7 Platelet Count 278 Leukocytes 7.4 Neutrophils 5.52 Lymphocytes 1.09 Monocytes 0.65 Eosinophils 0.16 Basophils 0.01 Comprehensive Metabolic Panel Collection Time: 03/27/23 9:32 AM Result Value Potassium, P 4.0 Sodium, P 139 Chloride, P 105 Bicarbonate, P 22 Anion Gap, P 12 BUN (Blood Urea Nitrogen), P 8 Creatinine 0.87 Estimated GFR (eGFR) 86 Calcium, Total, P 9.1 Glucose, P 93 Protein, Total, P 6.5 Albumin, P 4.0 Aspartate Aminotransferase (AST), P 14 Alkaline Phosphatase, P 69 Alanine Aminotransferase (ALT), P 30 Bilirubin, Total, P 0.5 CRP (C-Reactive Protein) Collection Time: 03/27/23 9:32 AM Result Value C-Reactive Protein (CRP), P 15.2 (H) Lipase Collection Time: 03/27/23 9:32 AM Result Value Lipase, P 36 Urinalysis with Microscopic if Indicated Collection Time: 03/27/23 10:03 AM Result Value Source Urine, Urine, Midstream Clarity Clear Color Yellow Blood Negative Nitrite Negative Leukocyte Esterase Small (A) Protein Negative Glucose Negative Ketones, QI(U) Negative Bilirubin Negative pH 7.0 Specific [place] 1.015 Urobilinogen 0.2 Test, POCT, Urine (Lab) Collection Time: 03/27/23 10:03 AM Result Value Test, POCT, U Negative Microscopic Manual Collection Time: 03/27/23 10:03 AM Result Value White Blood Cells Occ-3 Red Blood Cells None Seen Squamous Cells Occ-3 Bacteria Present (A) CT Abdomen Pelvis with IV Contrast Result Date: 03/27/2023 Impression: 1. Normal-appearing appendix. 2. No acute intra-abdominal/pelvic pathology, no CT findings to explain the patient's symptoms of right lower quadrant abdominal pain. ASSESSMENT / PLAN ASSESSMENT/PLAN: Diagnosis Plan 1. Abdominal Pain CBC with Differential, Blood Comprehensive Metabolic Panel CRP (C-Reactive Protein) Urinalysis with Microscopic if Indicated Test, POCT, Urine (Lab) Lipase CT Abdomen Pelvis with IV Contrast Bacterial Culture, Aerobic + Susceptibility, Urine Calprotectin, Feces Helicobacter pylori Ag, Feces GI Pathogen Panel, PCR, Feces Celiac Disease Comprehensive [facility] ondansetron ODT (ZOFRAN-ODT) 4 mg disintegrating tablet 1) Symptomatic treatment. 2) Clear liquids in frequent, small amounts, advance diet as tolerated. 3) Recheck in 2-5 days for persistence, worsening, appearance of new symptoms. 4) Will continue the workup due to recurrent pattern of the symptoms. Pt will follow up with familymedicine. PE: Discussed likely etiologies and principles of dietary treatment. Side effects of the prescribed/recommended medications discussed. Questions answered. Mario Valle P.A.-C. JAVA DEVELOPER ARCHITECT documented in this encounter Plan of Treatment Scheduled Orders Name Type Priority Associated Diagnoses Orde r Schedule Calprotectin, Feces Lab STAT Abdominal Pain Ordered: 03/27/2023 Helicobacter pylori Ag, Feces Microbiology STAT Abdominal Pain Ordered: 03/27/2023 GI Pathogen Panel, PCR, Feces Microbiology STAT Abdominal Pain Ordered: 03/27/2023 documented as of this encounter Procedures Procedure Name Priority Date/Time Associated Diagnosis Comments CELIAC DISEASE COMPREHENSIVE CASCADE STAT 03/27/2023 11:44 AM LEAD JAVA DEVELOPER ARCHITECT Abdominal Pain TISSUE TRANSGLUTAMINASE (TTG) AB, IGA, S STAT 03/27/2023 11:44 AM LEAD JAVA DEVELOPER ARCHITECT URINALYSIS WITH MICROSCOPIC IF INDICATED, U STAT 03/27/2023 10:03 AM LEAD JAVA DEVELOPER ARCHITECT Abdominal Pain HC URINALYSIS AUTO W MICRO STAT 03/27/2023 10:03 AM LEAD JAVA DEVELOPER ARCHITECT BACTERIAL CULTURE, AEROBIC + SUSC, URINE STAT 03/27/2023 10:03 AM LEAD JAVA DEVELOPER ARCHITECT Abdominal Pain TEST, POCT, U (LAB) STAT 03/27/2023 10:03 AM LEAD JAVA DEVELOPER ARCHITECT Abdominal Pain CBC WITH DIFFERENTIAL, B STAT 024 9:32 AM LEAD JAVA DEVELOPER ARCHITECT Abdominal Pain C-REACTIVE PROTEIN (CRP), S/P STAT 03/27/2023 9:32 AM LEAD JAVA DEVELOPER ARCHITECT Abdominal Pain LIPASE, S/P STAT 03/27/2023 9:32 AM LEAD JAVA DEVELOPER ARCHITECT Abdominal Pain COMPREHENSIVE METABOLIC PANEL, S/P STAT 03/27/2023 9:32 AM LEAD JAVA DEVELOPER ARCHITECT Abdominal Pain documented in this encounter Results * tTG (Tissue Transglutaminase), Antibody, IgA (03/27/2023 11:44 AM LEAD JAVA DEVELOPER ARCHITECT) Tissue Transglutaminase Ab, IgA, S <1.2 <4.0 (Negative ) U/mL 03/30/2023 12:34 PM LEAD JAVA DEVELOPER ARCHITECT [facility] Blood 03/27/2023 11:4 4 AM LEAD JAVA DEVELOPER ARCHITECT 03/29/2023 3:34 PM LEAD JAVA DEVELOPER ARCHITECT Mario Valle P.A.-C. LAB BLOOD A DD-ON [facility] [address] [place] [address] [facility] [address] [place] [address] * Celiac Disease Comprehensive [place] (03/27/2023 11:44 AM LEAD JAVA DEVELOPER ARCHITECT) HLA-DQA1 Locus Molecular 01:03, 05 Not Applicable 03/31/2023 2:18 PM LEAD JAVA DEVELOPER ARCHITECT D[facility] HLA-DQB1 Locus Molecular 03:03, 06:03 Not Applicable 03/31/2023 2:18 PM LEAD JAVA DEVELOPER ARCHITECT [facility] Comment: DQ Serologic Equivalent: 9, 6 Celiac Gene Pairs Present? No 03/31/2023 2:18 PM LEAD JAVA DEVELOPER ARCHITECT [facility] Comment: Method: Molecular typing of HLA [...] if ethnic specific resolution is required. CLIA: [id number] ??CLIA Wax Cutter: KLAUS MANCUSO MD,PhD Immunoglobulin A (IgA), S 122 61 - 356 mg/dL 03/29/2023 2:59 PM LEAD JAVA DEVELOPER ARCHITECT [facility] Celiac Disease Interpretation See Comment: Permissive genes absent and negative serology. Celiac disease extremely unlikely. 03/31/2023 10:53 PM LEAD JAVA DEVELOPER ARCHITECT [facility] Blood (Blood, Venous) 03/27/2023 11:44 AM LEAD JAVA DEVELOPER ARCHITECT 03/29/2023 8:00 AM LEAD JAVA DEVELOPER ARCHITECT Narrative [facility] - 03/31/2023 10:53 PM LEAD JAVA DEVELOPER ARCHITECT Specimen Information: Specimen ID: [id number] Specimen Type: Blood Specimen Collection Start Date: 03/27/2023 11:44 AM Specimen Received Date: 03/29/2023 ??8:00 AM Specimen ID: [id number] Specimen Type: Blood Specimen Collection Start Date: 03/27/2023 11:44 AM Specimen Received Date: 03/29/2023 ??6:42 AM Specimen ID: [id number] Specimen Type: Blood Specimen Collection Start Date: 03/27/2023 11:44 AM Specimen Received Date: 03/29/2023 ??7:40 AM Mario Valle P.A.-C. LAB BLOOD N ON ADD-ON [facility] [address] [place] [address] DBB8 [facility] [address] [place] [address] [facility] [address] [place] [address] [facility] [address] [place] [address] [place] [address] * CT Abdomen Pelvis with IV Contrast (03/27/2023 10:35 AM LEAD JAVA DEVELOPER ARCHITECT) Anatomical Region Laterality Modality Abdomen, Pelvis, Abdominal R ST LOS, Abdominal ARZ LOS, Abdominal FLA LOS N/A Computed Tomography 03/27/2023 10:3 9 AM LEAD JAVA DEVELOPER ARCHITECT Impressions 03/27/2023 11:01 AM LEAD JAVA DEVELOPER ARCHITECT 1. Normal-appearing appendix. 2. No acute intra-abdominal/pelvic pathology, no CT findings to explain the patient's symptoms of right lower quadrant abdominal pain. Narrative 03/27/2023 11:01 AM LEAD JAVA DEVELOPER ARCHITECT EXAM: CT ABDOMEN PELVIS WITH IV CONTRAST [...] appendix in the right lower quadrant on [id number] of series 3. No small bowel or [...] lower quadrant abdominal pain. Mario Valle P.A.-C. [facility] CT PROC EDURES * (ABNORMAL) Bacterial Culture, Aerobic + Susceptibility, Urine (03/27/2023 10:03 AM LEAD JAVA DEVELOPER ARCHITECT) Pathologist [facility] Urine Culture with mixed microbiota(A) 03/30/2023 6:38 AM LEAD JAVA DEVELOPER ARCHITECT [facility] Urine Culture PSEUDOMONAS AERUGINOSA >100,000 cfu/mL (A) 03/30/2023 6:38 AM LEAD JAVA DEVELOPER ARCHITECT [facility] Urine Culture KLEBSIELLA PNEUMONIAE COMPLEX 10,000-100,000 cfu/mL (A) 03/30/2023 6:38 AM LEAD JAVA DEVELOPER ARCHITECT [facility] Urine (Urine, Midstream) 03/27/2023 10:03 AM LEAD JAVA DEVELOPER ARCHITECT 03/27/2023 4:21 PM LEAD JAVA DEVELOPER ARCHITECT Comment:Specimen Source Site : Urine Narrative Organism [...] P.A.-C. LAB MICROBI OLOGY - GENERAL ORDERABLES [facility] [address] [place] [address], [facility] in [place] [address] [place] [address] * (ABNORMAL) Microscopic Manual (03/27/2023 10:03 AM LEAD JAVA DEVELOPER ARCHITECT) White Blood Cells Occ-3 /hpf 03/27/2023 10:32 AM LEAD JAVA DEVELOPER ARCHITECT NPR[facility] Comment: ----REFERENCE VALUE---- Males: 0-3 Females: 0-10 Unknown: 0-10 Red Blood Cells None Seen 0 - 2 /hpf 03/27/2023 10:32 AM LEAD JAVA DEVELOPER ARCHITECT [facility] Squamous Cells Occ-3 /hpf 03/27/2023 10:32 AM LEAD JAVA DEVELOPER ARCHITECT [facility] Bacteria Present(A) None Seen 03/27/2023 10:32 AM LEAD JAVA DEVELOPER ARCHITECT [facility] Urine 03/27/2023 10:0 3 AM LEAD JAVA DEVELOPER ARCHITECT 03/27/2023 10:17 AM LEAD JAVA DEVELOPER ARCHITECT Mario Valle P.A.-C. LAB URINE O RDERABLES Performing Organization Address [facility] Co de Phone Number [facility] [address] [place] [address], [facility] NPRG [address] [address] * Test, POCT, Urine (Lab) (03/27/2023 10:03 AM LEAD JAVA DEVELOPER ARCHITECT) Test, POCT, U Negative 03/27/2023 10:25 AM LEAD JAVA DEVELOPER ARCHITECT [facility] Urine (Urine, Midstream) 03/27/2023 10:03 AM LEAD JAVA DEVELOPER ARCHITECT 03/27/2023 10:17 AM LEAD JAVA DEVELOPER ARCHITECT Mario Valle P.A.-C. LAB POCT OR DERABLES - DEVICE Performing Organization Address [facility] Co de Phone Number [facility] [address] [place] [address], [facility] NPRG [address] [address] * (ABNORMAL) Urinalysis with Microscopic if Indicated (03/27/2023 10:03 AM LEAD JAVA DEVELOPER ARCHITECT) Source Urine, Urine, Midstream 03/27/2023 10:17 AM LEAD JAVA DEVELOPER ARCHITECT [facility] Clarity Clear Clear 03/27/2023 10:20 AM LEAD JAVA DEVELOPER ARCHITECT [facility] Color Yellow 03/27/2023 10:20 AM LEAD JAVA DEVELOPER ARCHITECT [facility] Comment: ----REFERENCE VALUE---- Colorless Yellow Chasity Blood Negative Negative 03/27/2023 10:20 AM LEAD JAVA DEVELOPER ARCHITECT [facility] Nitrite Negative Negative 03/27/2023 10:20 AM LEAD JAVA DEVELOPER ARCHITECT [facility] Leukocyte Esterase Small(A) Negative 03/27/2023 10:20 AM LEAD JAVA DEVELOPER ARCHITECT [facility] Protein Negative mg/dL 03/27/2023 10:20 AM LEAD JAVA DEVELOPER ARCHITECT [facility] Comment: ----REFERENCE VALUE---- Negative Trace Glucose Negative Negative mg/dL 03/27/2023 10:20 AM LEAD JAVA DEVELOPER ARCHITECT [facility] Ketones, QI(U) Negative Negative mg/dL 03/27/2023 10:20 AM LEAD JAVA DEVELOPER ARCHITECT [facility] Bilirubin Negative Negative 03/27/2023 10:20 AM LEAD JAVA DEVELOPER ARCHITECT [facility] pH 7.0 5.0 - 8.0 03/27/2023 10:20 AM LEAD JAVA DEVELOPER ARCHITECT [facility] Specific [place] 1.015 1.001 - 1.035 03/27/2023 10:20 AM LEAD JAVA DEVELOPER ARCHITECT [facility] Urobilinogen 0.2 0.2 - 1.0 mg/dL 03/27/2023 10:20 AM LEAD JAVA DEVELOPER ARCHITECT [facility] Urine (Urine, Midstream) 03/27/2023 10:03 AM LEAD JAVA DEVELOPER ARCHITECT 03/27/2023 10:17 AM LEAD JAVA DEVELOPER ARCHITECT Mario Valle P.A.-C. LAB URINE O RDERABLES Performing Organization Address [facility]/ZIP Co de Phone Number [facility] [address] [place] [address], [facility] [address] [address] * Lipase (03/27/2023 9:32 AM LEAD JAVA DEVELOPER ARCHITECT) Lipase, P 36 13 - 60 U/L 03/27/2023 10:02 AM LEAD JAVA DEVELOPER ARCHITECT [facility] Blood (Blood, Venous) 03/27/2023 9:32 AM LEAD JAVA DEVELOPER ARCHITECT 03/27/2023 9:37 AM LEAD JAVA DEVELOPER ARCHITECT Mario Valle P.A.-C. LAB BLOOD A DD-ON Performing Organization Address [facility]/ZIP Co de Phone Number [facility] [address] [place] [address], [address] [address] * (ABNORMAL) CRP (C-Reactive Protein) (03/27/2023 9:32 AM LEAD JAVA DEVELOPER ARCHITECT) C-Reactive Protein (CRP), P 15.2(H) <5.0 mg/L 03/27/2023 10:02 AM LEAD JAVA DEVELOPER ARCHITECT [facility] Blood (Blood, Venous) 03/27/2023 9:32 AM LEAD JAVA DEVELOPER ARCHITECT 03/27/2023 9:37 AM LEAD JAVA DEVELOPER ARCHITECT Mario Valle P.A.-C. LAB BLOOD A DD-ON [facility] [address] [place] [address], [facility] NPRG [facility] [address] [place] [address] * Comprehensive Metabolic Panel (03/27/2023 9:32 AM LEAD JAVA DEVELOPER ARCHITECT) Potassium, P 4.0 3.6 - 5.2 mmol/L 03/27/2023 10:02 AM LEAD JAVA DEVELOPER ARCHITECT NPR[facility] Sodium, P 139 135 - 145 mmol/L 03/27/2023 10:02 AM LEAD JAVA DEVELOPER ARCHITECT NPR[facility] Chloride, P 105 98 - 107 mmol/L 03/27/2023 10:02 AM LEAD JAVA DEVELOPER ARCHITECT NPR[facility] Bicarbonate, P 22 22 - 29 mmol/L 03/27/2023 10:02 AM LEAD JAVA DEVELOPER ARCHITECT [facility] Anion Gap, P 12 7 - 15 03/27/2023 10:02 AM LEAD JAVA DEVELOPER ARCHITECT [facility] BUN (Blood Urea Nitrogen), P 8 6 - 21 mg/dL 03/27/2023 10:02 AM LEAD JAVA DEVELOPER ARCHITECT [facility] Creatinine 0.87 0.59 - 1.04 mg/dL 03/27/2023 10:02 AM LEAD JAVA DEVELOPER ARCHITECT NPR[facility] Estimated GFR (eGFR) 86 >=60 mL/min/BS A 03/27/2023 10:02 AM LEAD JAVA DEVELOPER ARCHITECT NPR[facility] Comment: Estimated GFR calculated using the 2020 CKD_EPI creatinine equation. Calcium, Total, P 9.1 8.6 - 10.0 mg/dL 03/27/2023 10:02 AM LEAD JAVA DEVELOPER ARCHITECT NPRG Glucose, P 93 70 - 140 mg/dL 03/27/2023 10:02 AM LEAD JAVA DEVELOPER ARCHITECT NPR[facility] Protein, Total, P 6.5 6.3 - 7.9 g/dL 03/27/2023 10:02 AM LEAD JAVA DEVELOPER ARCHITECT NPR[facility] Albumin, P 4.0 3.5 - 5.0 g/dL 03/27/2023 10:02 AM LEAD JAVA DEVELOPER ARCHITECT NPR[facility] Aspartate Aminotransferase (AST), P 14 8 - 43 U/L 03/27/2023 10:02 AM LEAD JAVA DEVELOPER ARCHITECT [facility] Alkaline Phosphatase, P 69 35 - 104 U/L 03/27/2023 10:02 AM LEAD JAVA DEVELOPER ARCHITECT [facility] Alanine Aminotransferase (ALT), P 30 7 - 45 U/L 03/27/2023 10:02 AM LEAD JAVA DEVELOPER ARCHITECT NPR[facility] Bilirubin, Total, P 0.5 0.0 - 1.2 mg/dL 03/27/2023 10:02 AM LEAD JAVA DEVELOPER ARCHITECT NPR[facility] Blood (Blood, Venous) 03/27/2023 9:32 AM LEAD JAVA DEVELOPER ARCHITECT 03/27/2023 9:37 AM LEAD JAVA DEVELOPER ARCHITECT Mario Valle P.A.-C. LAB BLOOD A DD-ON [facility] [address] [place] [address], [facility] NPRG [facility] [address] [place] [address] * CBC with Differential, Blood (03/27/2023 9:32 AM LEAD JAVA DEVELOPER ARCHITECT) Hemoglobin 13.9 11.6 - 15.0 g/dL 03/27/2023 9:41 AM LEAD JAVA DEVELOPER ARCHITECT NPR[facility] Hematocrit 42.7 35.5 - 44.9 % 03/27/2023 9:41 AM LEAD JAVA DEVELOPER ARCHITECT NPR[facility] Erythrocytes 4.95 3.92 - 5.13 x10(12)/L 03/27/2023 9:41 AM LEAD JAVA DEVELOPER ARCHITECT [facility] MCV 86.3 78.2 - 97.9 fL 03/27/2023 9:41 AM LEAD JAVA DEVELOPER ARCHITECT [facility] RBC Distrib Width 14.7 12.2 - 16.1 % 03/27/2023 9:41 AM LEAD JAVA DEVELOPER ARCHITECT NPR[facility] Platelet Count 278 157 - 371 x10(9)/L 03/27/2023 9:41 AM LEAD JAVA DEVELOPER ARCHITECT NPR[facility] Leukocytes 7.4 3.4 - 9.6 x10(9)/L 03/27/2023 9:41 AM LEAD JAVA DEVELOPER ARCHITECT NPR[facility] Neutrophils 5.52 1.56 - 6.45 x10(9)/L 03/27/2023 9:41 AM LEAD JAVA DEVELOPER ARCHITECT NPR[facility] Lymphocytes 1.09 0.95 - 3.07 x10(9)/L 03/27/2023 9:41 AM LEAD JAVA DEVELOPER ARCHITECT NPR[facility] Monocytes 0.65 0.26 - 0.81 x10(9)/L 03/27/2023 9:41 AM LEAD JAVA DEVELOPER ARCHITECT NPR[facility] Eosinophils 0.16 0.03 - 0.48 x10(9)/L 03/27/2023 9:41 AM LEAD JAVA DEVELOPER ARCHITECT NPR[facility] Basophils 0.01 0.01 - 0.08 x10(9)/L 03/27/2023 9:41 AM LEAD JAVA DEVELOPER ARCHITECT NPR[facility] Blood (Blood, Venous) 03/27/2023 9:32 AM LEAD JAVA DEVELOPER ARCHITECT 03/27/2023 9:37 AM LEAD JAVA DEVELOPER ARCHITECT Mario Valle P.A.-C. LAB BLOOD A DD-ON [facility] [address] [place] [address], [facility] NPRG [facility] [address] [place] [address] documented in this encounter Visit Diagnoses Diagnosis Abdominal Pain- Primary Abdominal Pain documented in this encounter Additional Health Concerns Assessment Noted Time PHQ-9 Depression Total Score: 3 04/23/19 22 8:30 AM LEAD JAVA DEVELOPER ARCHITECT documented as of this encounter Care Teams Home Teaching Grades 9 Thru 12 Teacher Relationship Specialty Start Date End Date Elsewhere, Pcp PCP - General Internal Medicine 01/07/22 documented as of this encounter
--- OUTSIDE RECORDS SUMMARY | 2023-04-06 19:23 | XMS_ITS | Encounter Summary ---
Author Name Unknown Organization [facility] Address [address] [place] [address] Care Team Providers Care Underlay Stitcher Name Role Phone Elsewhere, Pcp Primary Care Provider Unavailabl e Reason for Visit * Reason Comments Swallowed Foreign Body Pt presents to ED with sensation of a pill being stuck in her throat. Pt tried drinking soda, hot water, cold water, and eating bread to dislodge the pill without success. Encounter Details Date Type Department Care Team (Late st Contact Info) Description 03/12/2023 8:27 AM TRUCK DRIVER - 03/12/2023 9:04 AM [facility] [address] [place] [phone] Wendy Calzada D.O. [address] [place] [phone] Dysphagia (Primary Dx); Foreign Body Swallowed Initial Discharge Disposition: Home or Self Care Social [...] 04/03/2022 How often do you attend chur or gnosticism services? 1 to 4 times per year 04/03/2022 Do you belong to any clubs o r organizations such as mormon groups, unions, fraternal or athletic groups, or [...] Answer Date Recorded PHQ-2 Score 0 12/10/2021 [facility] of Occupat ional Health - Occupational Stress [...] place to sleep or slept in a custodial (including now)? No 04/03/2022 Depression Answer Date [...] Sign Reading Time Taken Comments Blood Pressure 157/83 03/12/2023 8:30 AM TRUCK DRIVER Pulse 83 03/12/2023 8:45 AM TRUCK DRIVER Temperature 36.4 ??C (97.5 ??F) 03/12/2023 8:34 AM CS T Respiratory Rate 16 03/12/2023 8:34 AM TRUCK DRIVER Oxygen Saturation 100% 03/12/2023 8:45 AM TRUCK DRIVER Inhaled Oxygen Concentration - - Weight 96 kg (211 lb 10.3 oz) 03/12/2023 8:34 AM TRUCK DRIVER Height - - Body Mass Index 34.16 03/10/2023 8:53 AM TRUCK DRIVER documented in this encounter Discharge Instructions * Discharge Instructions* Wendy Calzada D.O. - 03/12/2023 8:58 AM TRUCK DRIVER It is okay to sip on warm/cold water for your discomfort. Take Tylenol every 6 hours as needed. If symptoms are still present on Wednesday, you can follow up with Gastroenterology to discuss endoscopy. K DRIVER documented in this encounter Medications at Time of Discharge Medication Sig Dispensed Refills Start Date End Date acetaminophen (TYLENOL) 500 mg capsule Take 1,000 mg by mouth every 6 (six) hours as needed for pain. 0 ALPRAZolam (XANAX) 0.5 mg tablet Take 1 tablet by mouth 2 (two) times a day as needed. 0 benzonatate (TESSALON) 200 mg capsule Take 1 capsule (200 mg total) by mouth 3 (three) times a day as needed for cough. 12 capsule 0 03/10/2023 celecoxib (CeleBREX) 200 mg capsule Take 1 capsule by mouth 2 (two) times a day. 0 02/05/2023 cetirizine (ZyrTEC) 10 mg tablet Take 10 mg by mouth 2 (two) times a day as needed. For allergies 0 cholecalciferol (VITAMIN D3) 50 mcg (2,000 Unit) tablet Take 50 mcg by mouth daily. 0 clindamycin (CLEOCIN) 300 mg capsule TAKE 1 CAPSULE EVERY 12 HOURS BY ORAL ROUTE FOR 7 DAYS. 0 02/12/2023 fluticasone propionate (FLONASE) 50 mcg/actuation nasal spray Administer 2 sprays into each nostril daily. 0 gabapentin (NEURONTIN) 300 mg capsuleIndications:Fib romyalgia Take 1 capsule (300 mg total) by mouth 3 (three) times a day. 90 capsule 1 07/10/2021 hydrOXYzine (ATARAX) 25 mg tabletIndications:Anxi ety TAKE 1 TABLET (25 MG TOTAL) BY MOUTH 2 (TWO) TIMES A DAY NEEDED FOR ANXIETY. 60 tablet 0 09/12/2021 ibuprofen (MOTRIN) 600 mg tablet TAKE 1 TABLET (600 MG) BY MOUTH EVERY 6 HOURS. MAXIMUM OF 3200 MG IN 24 HOURS. 0 lactobacillus combination no.4 3 billion cell capsule Take by mouth. 0 11/11/2022 LORazepam (ATIVAN) 1 mg tablet Take 0.5 tablets (0.5 mg total) by mouth at bedtime as needed for anxiety. 10 tablet 0 06/09/2022 MAGNESIUM GLYCINATE ORAL Take by mouth. 0 11/11/2022 metroNIDAZOLE (METROGEL) 0.75 % (37.5mg/5 gram) vaginal gel INSERT 1 APPLICATORFUL INTO VAGINA ONCE DAILY AT BEDTIME X 5 DAYS THEN 1-2 TIMESWEEK FOR PREVENTION 0 02/12/2023 multivitamin tablet Take 1 tablet by mouth daily. 0 psyllium husk-calcium 1-60 gram-mg capsule Take 0.4 g by mouth. 0 11/11/2022 spironolactone (ALDACTONE) 50 mg tablet Take 1 tablet (50 mg total) by mouth daily. 30 tablet 0 01/30/2022 TURMERIC ROOT EXTRACT ORAL Take 500 mg by mouth. 0 11/11/2022 dicyclomine (BENTYL) 20 mg tablet Take 1 tablet (20 mg total) by mouth 4 (four) times a day for 10 days. 40 tablet 0 03/08/2023 03/18/2023 ondansetron ODT (ZOFRAN-ODT) 4 mg disintegrating tablet Dissolve 1 tablet (4 mg total) in the mouth every 8 (eight) hours as needed for nausea or vomiting for up to 10 days. 12 tablet 0 03/10/2023 03/20/2023 documented as of this encounter ED Notes * Wendy Calzada D.O. - 03/12/2023 9:04 AM [facility] EMERGENCY DEPARTMENT ENCOUNTER Patient Name: Henny Rivas Birthdate 1980 Date of evaluation: 03/12/2023 Provider: Wendy Calzada D.O. PCP: ELSEWHERE, PCP SUBJECTIVE CHIEF COMPLAINT/REASON FOR VISIT Swallowed Foreign Body (Pt presents to ED with sensation of a pill being stuck in her throat. Pt tried drinking soda, hot water, cold water, and eating bread to dislodge the pill without success. ) HISTORY OF PRESENT ILLNESS Henny Rivas is a 42 y.o. female presents for evaluation of foreign body sensation to her throat. She took her morning pills and had the sensation of a pill being stuck in her throat, pointing tothe area of the suprasternal notch. She has drank copious amounts of liquids trying to improve the sensation. She reports drinking several sodas, hot water, cold water, and eating some bread, but symptoms are persistent. She is unsure which medication got stuck, as she took several pills at once. No shortness of breath. She is able to tolerate p.o.. History provided by: Patient MEDICAL HISTORY Past Medical History: Diagnosis Date Eczema ongoing - sensitive skin OBJECTIVE VITAL SIGNS BP 157/83 Pulse 83 Temp 36.4 ??C (Temporal) Resp 16 Wt 96 kg SpO2 100% BMI 34.16 kg/m?? PHYSICAL EXAMINATION: Constitutional: Nursing note and vitals reviewed. No distress. HENT: Mouth/Throat: Oropharynx is clear and moist. Cardiovascular: Normal rate. Pulmonary/Chest: Effort normal. Neurological: Alert and oriented to person, place, and time. Skin: Skin is warm and dry. Psychiatric: Her mood appears anxious. EMERGENCY DEPARTMENT COURSE and DIFFERENTIAL DIAGNOSIS/MDM: Patient was given the following medications: Medications lidocaine viscous 2 % 15 mL, alum-mag hydroxide-simeth 30 mL susp (45 mL oral Given 03/12/23 0895) MDM: IMPRESSION AND PLAN Patient presents with foreign body sensation to her throat but no difficulty tolerating p.o.. Her oropharyngeal exam is normal. No abnormal phonation. No difficulty swallowing. Patient was given a GIcocktail with moderate improvement of symptoms. I discussed with patient that I suspect the pill created some irritation or scratched her esophagus when it was stuck, but with time and the amount shehas had drank I do not suspect that the pill is still stuck but she is feeling irritated esophagealtissue. I have encouraged her to follow a bland diet today and to continue to sip on soothing liquids. If symptoms have not improved the weekend she can contact GI for follow-up. If symptoms are worse see, she understands to return to the ER. FINAL IMPRESSION: Final diagnoses: [R13.10] Dysphagia [T18.9XXA] Foreign Body Swallowed Initial FOLLOW UP: Contact Information for Follow-ups Olayinka Mason M.D. Specialty: Gastroenterology and Hepatology, Internal Medicine [facility], [address] [phone] Next Steps: Follow up Instructions: As needed Bceky Resendez Sarah, D.O. 03/13/23 1600 K DRIVER documented in this encounter Plan of Treatment Not on file documented as of this encounter Visit Diagnoses Diagnosis Dysphagia- Primary Foreign Body Swallowed Initial documented in this encounter Administered Medications Inactive Administered Medications - up to 3 most recent administrations Medication Order MAR Action Action Date Dose Rate Site lidocaine viscous 2 % 15 mL, alum-mag hydroxide-simeth 30 mL susp 45 mL, oral, Once, On Wed03/12/23 at 0840, For 1 dose, Mix ingredients prior to administration Given 03/12/2023 8:44 AM TRUCK DRIVER 45 mL documented in this encounter Active and Recently Administered Medications Times are shown in TRUCK DRIVER. Scheduled Medication Order 03/10/2023 03/11/2023 03/12/2023 lidocaine viscous 2 % 15 mL, alum-mag hydroxide-simeth 30 mL susp (COMPLETED) 45 mL, oral, Once, On Wed03/12/23 at 0840, For 1 dose, Mix ingredients prior to administration 0844 (Given - Provid er: Kezia Du R.N.) documented in this encounter Additional Health Concerns Assessment Noted Time PHQ-9 Depression Total Score: 3 04/23/19 8:30 AM TRUCK DRIVER documented as of this encounter Care Teams Underlay Stitcher Relationship Specialty Start Date End Date Elsewhere, Pcp PCP - General Internal Medicine 01/07/22 documented as of this encounter
--- OUTSIDE RECORDS SUMMARY | 2023-04-06 19:23 | XMS_ITS | Encounter Summary ---
Author Name Unknown Organization [facility] Address [address] [place] [address] Care Team Providers Care Electronic Parts Salesperson Name Role Phone Elsewhere, Pcp Primary Care Provider Unavailabl e Reason for Referral * MRI/CAT/PET Scan (Routine) - Closed Specialty Diagnoses / Procedures Referred By Polinaac t Referred To Contact Radiology Diagnoses Abdominal Pain Procedures CT Abdomen Pelvis with IV Contrast Mario Valle P.A.-C. [address] [place] [phone] [facility] Referral ID Status Reason Start Date Expiration Date Visits Re quested Visits Authorized [id number] Closed 03/27/2023 03/26/2024 1 1 CAL FIELD REPRESENTATIVE Reason for Visit * MRI/CAT/PET Scan (Routine) - Closed Specialty Diagnoses / Procedures Referred By Contac t Referred To Contact Radiology Diagnoses Abdominal Pain Procedures CT Abdomen Pelvis with IV Contrast Mario Valle P.A.-C. [address] [place] [phone] [facility] Referral ID Status Reason Start Date Expiration Date Visits Re quested Visits Authorized [id number] Closed 03/27/2023 03/26/2024 1 1 Encounter Details Date Type Department Care Team (Latest Contact Info) Description 03/27/2023 10:14 AM MEDICAL FIELD REPRESENTATIVE - 03/27/2023 11:59 PM MEDICAL FIELD REPRESENTATIVE Hospital Encounter Department of Radiology in [place], [place] [address] [place] [phone] Mario Valle P.A.-C. [address] [place] [phone] Abdominal Pain Discharge Disposition: Home or Self Care Social [...] often do you attend chur ch or restorationism services? 1 to 4 times per year 04/03/2022 Do you belong to any clubs o r organizations such as mandaeism groups, unions, fraternal or athletic groups, or [...] place to sleep or slept in a nursing home (including now)? No 04/03/2022 Depression Answer Date [...] on file documented as of this encounter Medications at Time of Discharge [...] Take 500 mg by mouth. 0 11/11/2022 ondansetron ODT (ZOFRAN-ODT) 4 mg disintegrating tabletIndications:Abdo taryn Pain Dissolve 1-2 tablets (4-8 mg total) in the mouth every 8 (eight) hours as needed for nausea or vomiting for up to 7 days. 30 tablet 0 03/27/2023 04/03/2023 documented as of this encounter Plan of Treatment Not on file documented as of this encounter Procedures Procedure Name Priority Date/Time Associated Diagnosis Comments CT ABDOMEN PELVIS WITH IV CONTRAST RAD - Routine (most inpatients and all outpatients) 03/27/2023 10:35 AM MEDICAL FIELD REPRESENTATIVE Abdominal Pain documented in this encounter Results * CT Abdomen Pelvis with IV Contrast (03/27/2023 10:35 AM MEDICAL FIELD REPRESENTATIVE) Anatomical Region Laterality Modality Abdomen, Pelvis, Abdominal R ST LOS, Abdominal ARZ LOS, Abdominal FLA LOS N/A Computed Tomography 03/27/2023 10:3 9 AM MEDICAL FIELD REPRESENTATIVE Impressions 03/27/2023 11:01 AM MEDICAL FIELD REPRESENTATIVE 1. Normal-appearing appendix. 2. No acute intra-abdominal/pelvic pathology, no CT findings to explain the patient's symptoms of right lower quadrant abdominal pain. Narrative 03/27/2023 11:01 AM MEDICAL FIELD REPRESENTATIVE EXAM: CT ABDOMEN PELVIS WITH IV CONTRAST [...] appendix in the right lower quadrant on [id number] of series 3. No small bowel or [...] lower quadrant abdominal pain. Mario Valle P.A.-C. [facility] CT PROC EDURES documented in this encounter Visit Diagnoses Diagnosis Abdominal Pain documented in this encounter Administered Medications Inactive Administered Medications - up to 3 most recent administrations Medication Order MAR Action Action Date Dose Rate Site iohexoL 300 mg iodine/mL solution 1-200 mL (OMNIPAQUE) 1-200 mL, intravenous, Once in imaging, contrast, Starting on 03/27/23 at 1025, For 1 dose, Dose per Radiant Medication Guidelines Given 03/27/2023 10:36 AM MEDICAL FIELD REPRESENTATIVE 140 mL NaCl 0.9 % bolus 100 mL 100 mL, intravenous, at 100 mL/hr, Administer over 1 Hours, Once in imaging, Post Contrast, Starting on 03/27/23 at 1025, For 1 dose Bolus from Bag 03/27/2023 10:40 AM MEDICAL FIELD REPRESENTATIVE 100 mL 100 mL/hr sodium chloride 0.9 % injection 10 mL 10 mL, intravenous, Once in imaging, line care, Starting on 03/27/23 at 1025, For 1 dose Given 03/27/2023 10:36 AM MEDICAL FIELD REPRESENTATIVE 10 mL documented in this encounter Additional Health Concerns Assessment Noted Time PHQ-9 Depression Total Score: 3 04/23/19 22 8:30 AM MEDICAL FIELD REPRESENTATIVE documented as of this encounter Care Teams Electronic Parts Salesperson Relationship Specialty Start Date End Date Elsewhere, Pcp PCP - General Internal Medicine 01/07/22 documented as of this encounter
--- OUTSIDE RECORDS SUMMARY | 2023-04-06 19:23 | XMS_ITS | Encounter Summary ---
Author Name Unknown Organization [facility] Address [address] [place] [address] Care Team Providers Care Skidder Operator Name Role Phone Elsewhere, Pcp Primary Care Provider Unavailabl e Encounter Details Date Type Department Care Team (Late st Contact Info) Description 03/30/2023 Orders Only Urgent Care, [facility], in [place], [place] [address] [place] [phone] Mario Valle, P.A.-C. [address], [place] [phone] Urinary Tract Infection Site Not Specified (Primary Dx) Social History Tobacco Use Types Packs/Day Years [...] week 04/03/2022 [facility] services? 1 to 4 times per year [...] Answer Date Recorded PHQ-2 Score 0 12/10/2021 [facility] of Occupat ional Health - Occupational Stress [...] on file documented as of this encounter Plan of Treatment Not on file documented as of this encounter Visit Diagnoses Diagnosis Urinary Tract Infection Site Not Specified- Primary documented in this encounter Additional Health Concerns Assessment Noted Time PHQ-9 Depression Total Score: 3 04/23/19 22 8:30 AM AWARD CLERK documented as of this encounter Care Teams Skidder Operator Relationship Specialty Start Date End Date Elsewhere, Pcp PCP - General Internal Medicine 01/07/22 documented as of this encounter
--- OUTSIDE RECORDS SUMMARY | 2023-04-06 19:23 | XMS_ITS ---
Author Name Unknown Organization [facility] Address [address] [place] [address] Care Team Providers Care Catalyst Operator Gasoline Name Role Phone Unavailable Unavailable Unavailable Surgery Details Not on file Complications Check Surgery Details section. Procedure Estimated Blood Loss Check Surgery Details section. Procedure Findings Check Surgery Details section. Procedure Specimens Taken Check Surgery Details section.
--- OUTSIDE RECORDS SUMMARY | 2023-04-06 19:23 | XMS_ITS | Encounter Summary ---
Author Name Unknown Organization [facility] Address [address] [place] [id number] Care Team Providers Care Molding And Trim Installer Name Role Phone Elsewhere, Pcp Primary Care Provider Unavailabl e Reason for Visit * Reason Comments Shortness of Breath Pt presents feeling short of breath, nauseated and ill. Has not vomited. Pt has occasional cough and feels congested. Encounter Details Date Type Department Care Team ([facility] st Contact Info) Description 03/10/2023 8:44 AM MANAGER OPERATIONS AND PROCUREMENT - 03/10/2023 11:30 AM MANAGER OPERATIONS AND PROCUREMENT Emergency [facility] [address] [place] [phone] Jesus Manuel Hensley M.D. [address] [place] [phone] Influenza Like Illness (Primary Dx); Dehydration; Hypokalemia Discharge Disposition: Home or Self Care Social [...] How often do you attend chur or yazidi services? 1 to 4 times per year 04/03/2022 Do you belong to any clubs o r organizations such as quaker groups, unions, fraternal or athletic groups, or [...] Answer Date Recorded PHQ-2 Score 0 12/10/2021 [facility] - Occupational Stress [...] place to sleep or slept in a usp (including now)? No 04/03/2022 Depression Answer Date [...] Sign Reading Time Taken Comments Blood Pressure 116/78 03/10/2023 11:00 AM MANAGER OPERATIONS AND PROCUREMENT Pulse 70 03/10/2023 11:00 AM MANAGER OPERATIONS AND PROCUREMENT Temperature 36.9 ??C (98.4 ??F) 03/10/2023 8:15 AM CS T Respiratory Rate 18 03/10/2023 11:00 AM MANAGER OPERATIONS AND PROCUREMENT Oxygen Saturation 100% 03/10/2023 11:00 AM MANAGER OPERATIONS AND PROCUREMENT Inhaled Oxygen Concentration - - Weight 95.9 kg (211 lb 6.7 oz) 03/10/2023 8:53 A M MANAGER OPERATIONS AND PROCUREMENT Height 167.6 cm (5' 6) 03/10/2023 8:53 AM MANAGER OPERATIONS AND PROCUREMENT Body Mass Index 34.12 03/10/2023 8:53 AM MANAGER OPERATIONS AND PROCUREMENT documented in this encounter Discharge Instructions * Attachments The following attachments cannot be sent through Care Everywhere. * Viral Respiratory Infection [id number] (French) documented in this encounter Medications at Time [...] as of this encounter ED Notes * Jesus Manuel Hensley M.D. - 03/10/2023 8:35 AM CST SUBJECTIVE CHIEF COMPLAINT/REASON FOR VISIT Shortness of Breath (Pt presents feeling short of breath, nauseated and ill. Has not vomited. Pt has occasional cough and feels congested. ) HISTORY OF PRESENT ILLNESS 42-year-old female presents to the emergency depart for evaluation of shortness of breath, cough, generalized myalgias, nausea resulting in decreased oral intake, occasional lightheadedness in the setting of acute illness. Patient states about 5 days ago, she developed URI symptoms including rhinorrhea, nasal congestion, mild sore throat. Since then, she was noted sinus pressure, postnasal drip, decreased oral intake because I do not feel good. She occasionally will note that she feels like her heart has been quickly, as some what lightheaded intermittently with position change.Subjective fevers though no chills. 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 Last took Tylenol at 07:00 this morning, currently using a sinus lavage apparatus laisha daily basis. Does not utilize ibuprofen because of concerns for possible development of ulcer forwhich she has an appointment to see GI per her report. Because of generalized feeling of illness, sensation of shortness of breath and ongoing cough, lightheadedness, as well as duration of symptoms,patient presents to the emergency department for evaluation History provided by: Patient REVIEW OF SYSTEMS Constitutional: Positive for appetite change, fatigue and fever. Negative for chills. HENT: Positive for congestion, rhinorrhea and sinus pressure. Negative for sore throat. Respiratory: Positive for cough. Cardiovascular: Positive for palpitations (Sensation that ???my heart is beating fast ???sometime).Negative for chest pain. Gastrointestinal: Positive for nausea. Negative for abdominal pain, diarrhea and vomiting. Musculoskeletal: Negative. Skin: Negative for rash and wound. Neurological: Positive for light-headedness (Occasional, with position change). Negative for dizziness, headaches and loss of balance. Psychiatric/Behavioral: Negative for confusion. OBJECTIVE Initial Vitals Temperature 03/10/23 0815 36.9 ??C Pulse Rate 03/10/23 0815 96 Heart Rate 03/10/23 1030 77 Resp Rate 03/10/23 0815 16 Blood Pressure 03/10/23 0815 (!) 134/104 SpO2 03/10/23 0815 100 % Pain Score 03/10/23 0852 6 Blood pressure 134/104 pulse 96 respiratory rate 16 SpO2 100% room air temperature 36.9?? centigrade PHYSICAL EXAMINATION Constitutional: Nursing note and vitals reviewed. She is cooperative. Non-toxic appearance. She does not have a sickly appearance. She appears ill. She appears distressed (Mild). HENT: Head: Normocephalic and atraumatic. Right Ear: Tympanic membrane normal. Left Ear: Tympanic membrane normal. Nose: Rhinorrhea present. Mouth/Throat: Mucous membranes are dry. Neck: Neck supple. Cardiovascular: Normal rate and regular rhythm. Pulmonary/Chest: Effort normal and breath sounds normal. She has no decreased breath sounds. She has no wheezes. She has no rhonchi. She has no rales. Abdominal: Soft. Normal appearance and bowel sounds are normal. There is no abdominal tenderness. Musculoskeletal: Cervical back: Neck supple. Neurological: Alert. GCS eye subscore is 4. GCS verbal subscore is 5. GCS motor subscore is 6. Skin: Skin is warm and dry. No rash noted. Psychiatric: She has a normal mood and affect. ASSESSMENT/PLAN Assessment and Plan Impression: Influenza like illness, dehydration, hypokalemia Plan: 42-year-old female presents to the emergency department with several day history of URI symptoms, found to be COVID, influenza and RSV negative, as well as chest x-ray showing no acute infiltrate. Patient clinically dehydrated, as well as with subjective symptoms of this phenomena, and felt significantly better after 2 L of normal saline infused. Nausea, likely multifactorial, was result with Zofran administration. Patient, after IV fluid infusion complete as well as evaluation complete, is stable for discharge home. Zofran 4 mg ODT 1 tablet to be utilized every 8 hours as needed for nausea, and Tessalon Perles 200 mg p.o. t.i.d. as needed for cough or prescribed for symptomatic improv ement. Potassium administered here for mild hypokalemia, no further ongoing medications required atthis time. Follow up with primary care as needed, return to urgent Care, primary care or the emergency department if these evaluation locations are not available, for repeat evaluation of any symptoms that patient feels warrant emergency evaluation. All the patient's current questions were answeredher satisfaction prior to leaving the ER. DIFFERENTIAL DIAGNOSES Differential diagnosis includes but isn't limited to COVID, influenza, RSV, URI other, dehydration,metabolic derangement. ED Course as of 03/10/23 1112 WedMar 10, 2023 0858 CBC shows no leukocytosis or anemia. Slight increase in monocytes is noted. IV fluids infusing. Zofran 4 mg IV ordered to improve nausea. Patient continues with oxygen saturations 100% in absence of tachypnea. 0902 Blood pressure normalized from that noted upon arrival. Await COVID influenza RSV screen. 09 Basic metabolic profile shows potassium 3.4, bicarbonate 20 without other electrolyte abnormalities. Potassium 20 mEq p.o. x1 ordered. 0916 COVID, influenza, RSV negative 0945 Chest x-ray shows no acute changes. 1049 EKG shows normal sinus rhythm nonspecific ST-T wave changes. When compared to previous, PA interval has increased Final Diagnoses: as of 03/10/23 1112 Influenza Like Illness Dehydration Hypokalemia Jesus Manuel Hensley M.D. 03/10/23 1112 GER OPERATIONS AND PROCUREMENT documented in this encounter Plan of Treatment Not on file documented as of this encounter Procedures Procedure Name Priority Date/Time Associated Diagnosis Comments ECG STAT 03/10/2023 10:21 AM MANAGER OPERATIONS AND PROCUREMENT DX CHEST AP OR PA AND LATERAL 2 VIEWS RAD - Semiurgent (Fast; most ED patients; some inpatients) 03/10/2023 9:37 AM MANAGER OPERATIONS AND PROCUREMENT SARS CORONAVIRUS 2, PCR RAPID, V STAT 03/10/2023 8:49 AM MANAGER OPERATIONS AND PROCUREMENT INFLUENZA A, B, RSV, PCR, POCT STAT 03/10/2023 8:49 AM MANAGER OPERATIONS AND PROCUREMENT CBC WITH DIFFERENTIAL, B STAT 03/10/2023 8:39 AM MANAGER OPERATIONS AND PROCUREMENT BASIC METABOLIC PANEL, S/P STAT 03/10/2023 8:39 AM MANAGER OPERATIONS AND PROCUREMENT documented in this encounter Results * ECG 12 Lead (03/10/2023 10:21 AM MANAGER OPERATIONS AND PROCUREMENT) Ventricular Rate ECG/Min 73 BPM MUSE PA Interval 132 ms MUSE QRSD Interval 90 ms MUSE QT Interval 416 ms MUSE QTC Interval 458 ms MUSE P [place] 66 degrees MUSE R [place] 14 degrees MUSE T Wave [place] -1 degrees MUSE 03/10/2023 10:2 1 AM MANAGER OPERATIONS AND PROCUREMENT 03/10/2023 10:42 AM MANAGER OPERATIONS AND PROCUREMENT Impressions MUSE - 03/10/2023 10:40 AM MANAGER OPERATIONS AND PROCUREMENT Normal sinus rhythm Nonspecific ST and T wave abnormality When compared with ECG of 07-OCT-2022 12:07, PA interval has increased Reviewed by WHIT Plummer Narrative Procedure Note Daquan Hess M.D., M.P.H. - 03/10/2023 IMPRESSION: Normal sinus rhythm Nonspecific ST and T wave abnormality When compared with ECG of 07-OCT-2022 12:07, PA interval has increased Reviewed by WHIT Plummer Jesus Manuel Hensley M.D. ECG ORDERABLES MUSE NA * DX Chest AP or PA and Lateral 2 Views (03/10/2023 9:37 AM MANAGER OPERATIONS AND PROCUREMENT) Anatomical Region Laterality Modality Chest, Thoracic RST LOS, Tho racic ARZ LOS, Thoracic FLA LOS N/A Digital Radiography Impressions 03/10/2023 9:38 AM MANAGER OPERATIONS AND PROCUREMENT Stable chest, no acute cardiopulmonary disease. Narrative 03/10/2023 9:38 AM MANAGER OPERATIONS AND PROCUREMENT EXAM: DX CHEST AP OR PA AND [...] M.D. IMG DIAGNOSTIC IMAGI NG PROCEDURES * Influenza A/B and RSV, PCR, Point of Care (03/10/2023 8:49 AM MANAGER OPERATIONS AND PROCUREMENT) Influenza A, POCT Negative Negative 03/10/2023 8:53 AM MANAGER OPERATIONS AND PROCUREMENT NPRG Influenza B, POCT Negative Negative 03/10/2023 8:53 AM MANAGER OPERATIONS AND PROCUREMENT NPR[facility] Resp Syncytial Virus, POCT Negative Negative 03/10/2023 8:53 AM MANAGER OPERATIONS AND PROCUREMENT NPRG Swab (Nasopharynx) 03/10/2023 8:49 AM MANAGER OPERATIONS AND PROCUREMENT 03/10/2023 8:49 AM MANAGER OPERATIONS AND PROCUREMENT Jesus Manuel Hensley M.D. LAB POCT ORDERABLES - DEVICE Performing Organization Address [facility] [place] Co de Phone Number [facility] [address] [place] [address], [facility] NPR[facility] [address] [place] [address] * SARS Coronavirus 2, PCR Rapid Symptomatic (03/10/2023 8:49 AM MANAGER OPERATIONS AND PROCUREMENT) SARS CoV-2, PCR, Rapid, V Undetected Undetected 03/10/2023 9:12 AM MANAGER OPERATIONS AND PROCUREMENT NPRG Comment: ----ADDITIONAL INFORMATION---- This RT-PCR test was performed using the [employer] SARS-CoV-2 and Influenza A/B Reagent assay from [employer], which has received Emergency Use Authorization(EUA) by the U.S. Food and Drug Administration. Fact sheets for this Emergency Use Authorization (EUA) assay can be found at the following links: For Healthcare Providers: https://www.fda.gov/media/916499/download For Patients: https://www.fda.gov/media/737093/download SARS Coronavirus 2, Source, Rapid Swab, Nasopharynx 03/10/2023 8:49 AM MANAGER OPERATIONS AND PROCUREMENT NPRG Swab (Nasopharynx) 03/10/2023 8:49 AM MANAGER OPERATIONS AND PROCUREMENT 03/10/2023 8:49 AM MANAGER OPERATIONS AND PROCUREMENT Jesus Manuel Hensley M.D. LAB MICROBIOLOGY - G ENERAL ORDERABLES Performing Organization Address City/[facility]/ZIP Co de Phone Number [facility] [address] [place] [address], [facility] NPRG [facility] [address] [place] [address] * (ABNORMAL) CBC with Differential, Blood (03/10/2023 8:39 AM MANAGER OPERATIONS AND PROCUREMENT) Hemoglobin 14.3 11.6 - 15.0 g/dL 03/10/2023 8:51 AM MANAGER OPERATIONS AND PROCUREMENT NPRG Hematocrit 42.9 35.5 - 44.9 % 03/10/2023 8:51 AM MANAGER OPERATIONS AND PROCUREMENT NPRG Erythrocytes 5.08 3.92 - 5.13 x10(12)/L 03/10/2023 8:51 AM MANAGER OPERATIONS AND PROCUREMENT NPRG MCV 84.4 78.2 - 97.9 fL 03/10/2023 8:51 AM MANAGER OPERATIONS AND PROCUREMENT NPRG RBC Distrib Width 14.5 12.2 - 16.1 % 03/10/2023 8:51 AM MANAGER OPERATIONS AND PROCUREMENT NPRG Platelet Count 293 157 - 371 x10(9)/L 03/10/2023 8:51 AM MANAGER OPERATIONS AND PROCUREMENT NPRG Leukocytes 8.9 3.4 - 9.6 x10(9)/L 03/10/2023 8:51 AM MANAGER OPERATIONS AND PROCUREMENT NPRG Neutrophils 6.29 1.56 - 6.45 x10(9)/L 03/10/2023 8:51 AM MANAGER OPERATIONS AND PROCUREMENT NPRG Lymphocytes 1.51 0.95 - 3.07 x10(9)/L 03/10/2023 8:51 AM MANAGER OPERATIONS AND PROCUREMENT NPRG Monocytes 0.98(H) 0.26 - 0.81 x10(9)/L 03/10/2023 8:51 AM MANAGER OPERATIONS AND PROCUREMENT NPRG Eosinophils 0.07 0.03 - 0.48 x10(9)/L 03/10/2023 8:51 AM MANAGER OPERATIONS AND PROCUREMENT NPRG Basophils 0.03 0.01 - 0.08 x10(9)/L 03/10/2023 8:51 AM MANAGER OPERATIONS AND PROCUREMENT NPRG Blood (Blood, Venous) 03/10/2023 8:39 AM MANAGER OPERATIONS AND PROCUREMENT 03/10/2023 8:45 AM MANAGER OPERATIONS AND PROCUREMENT Jesus Manuel Hensley M.D. LAB BLOOD ADD-ON [facility] [address] [place] [address], [place] NPRG [place] [address] [place] [address] * (ABNORMAL) Basic Metabolic Panel (03/10/2023 8:39 AM MANAGER OPERATIONS AND PROCUREMENT) Potassium, P 3.4(L) 3.6 - 5.2 mmol/L 03/10/2023 9:05 AM MANAGER OPERATIONS AND PROCUREMENT NPRG Sodium, P 137 135 - 145 mmol/L 03/10/2023 9:05 AM MANAGER OPERATIONS AND PROCUREMENT NPRG Chloride, P 102 98 - 107 mmol/L 03/10/2023 9:05 AM MANAGER OPERATIONS AND PROCUREMENT NPRG Bicarbonate, P 20(L) 22 - 29 mmol/L 03/10/2023 9:05 AM MANAGER OPERATIONS AND PROCUREMENT NPRG Anion Gap, P 15 7 - 15 03/10/2023 9:05 AM MANAGER OPERATIONS AND PROCUREMENT NPRG BUN (Blood Urea Nitrogen), P 9 6 - 21 mg/dL 03/10/2023 9:05 AM MANAGER OPERATIONS AND PROCUREMENT NPRG Creatinine 1.02 0.59 - 1.04 mg/dL 03/10/2023 9:05 AM MANAGER OPERATIONS AND PROCUREMENT NPRG Estimated GFR (eGFR) 71 >=60 mL/min/BSA 03/10/2023 9:05 AM MANAGER OPERATIONS AND PROCUREMENT NPRG Comment: Estimated GFR calculated using the 2020 CKD_EPI creatinine equation. Calcium, Total, P 9.9 8.6 - 10.0 mg/dL 03/10/2023 9:05 AM MANAGER OPERATIONS AND PROCUREMENT NPRG Glucose, P 85 70 - 140 mg/dL 03/10/2023 9:05 AM MANAGER OPERATIONS AND PROCUREMENT NPRG Blood (Blood, Venous) 03/10/2023 8:39 AM MANAGER OPERATIONS AND PROCUREMENT 03/10/2023 8:45 AM MANAGER OPERATIONS AND PROCUREMENT Jesus Manuel Hensley M.D. LAB BLOOD ADD-ON [facility] [address] [place] [address], [place] NPRG [place] [address] [place] [address] documented in this encounter Visit Diagnoses Diagnosis Influenza Like Illness- Primary Dehydration Hypokalemia documented in this encounter Administered Medications Inactive Administered Medications - up to 3 most recent administrations Medication Order MAR Action Action Date Dose Rate Site NaCl 0.9 % bolus 1,000 mL 1,000 mL, intravenous, at 1,000 mL/hr, Administer over 1 Hours, Once, On Wed03/10/23 at 0831, For 1 dose New Bag 03/10/2023 8:46 AM MANAGER OPERATIONS AND PROCUREMENT 1,000 mL 1000 mL/hr NaCl 0.9 % bolus 1,000 mL 1,000 mL, intravenous, at 1,000 mL/hr, Administer over 1 Hours, Once, On Wed03/10/23 at 0946, For 1 dose New Bag 03/10/2023 9:49 AM MANAGER OPERATIONS AND PROCUREMENT 1,000 mL 1000 mL/hr ondansetron (PF) injection 4 mg (ZOFRAN) 4 mg, intravenous, Once, On Wed03/10/23 at 0854, For 1 dose Given 03/10/2023 9:03 AM MANAGER OPERATIONS AND PROCUREMENT 4 mg potassium chloride ER tablet 20 mEq (KLORCON/K-TAB) 20 mEq, oral, Once, On Wed03/10/23 at 0907, For 1 dose, Swallow whole. Do NOT crush, chew, or split tablet. Given 03/10/2023 9:20 AM MANAGER OPERATIONS AND PROCUREMENT 20 mEq sodium chloride 0.9 % injection 2-10 mL 2-10 mL, intravenous, As needed, line care, Starting on Wed03/10/23 at 0830 Given 03/10/2023 8:46 AM MANAGER OPERATIONS AND PROCUREMENT 10 mL documented in this encounter Active and Recently Administered Medications Times are shown in MANAGER OPERATIONS AND PROCUREMENT. Scheduled Medication Order 03/08/2023 03/09/2023 03/10/2023 NaCl 0.9 % bolus 1,000 mL (COMPLETED) 1,000 mL, intravenous, at 1,000 mL/hr, Administer over 1 Hours, Once, On Wed03/10/23 at 0831, For 1 dose 0846 (New Bag - Prov ider: Jennifer Turcios, R.N.)0946 (Stopped - Provider: Jennifer Turcios R.N.) NaCl 0.9 % bolus 1,000 mL (COMPLETED) 1,000 mL, intravenous, at 1,000 mL/hr, Administer over 1 Hours, Once, On Wed03/10/23 at 0946, For 1 dose 0949 (New Bag - Prov ider: Dimitry Tate R.N.)1049 (Stopped - Provider: Jennifer Turcios R.N.) ondansetron (PF) injection 4 mg (ZOFRAN) (COMPLETED) 4 mg, intravenous, Once, On Wed03/10/23 at 0854, For 1 dose 0903 (Given - Provid er: Jennifer Turcios R.N.) potassium chloride ER tablet 20 mEq (KLORCON/K-TAB) (COMPLETED) 20 mEq, oral, Once, On Wed03/10/23 at 0907, For 1 dose, Swallow whole. Do NOT crush, chew, or split tablet. 0920 (Given - Provid er: Jennifer Turcios R.N.) PRN Medication Order 03/08/2023 03/09/2023 03/10/2023 sodium chloride 0.9 % injection 2-10 mL(Linked Group 1) 2-10 mL, intravenous, As needed, line care, Starting on Wed03/10/23 at 0830 0846 (Given - Provid er: Jennifer Turcios R.N.) Linked Groups Order Group 1: Place peripheral IV: No upper extremity site restrictions (CANCELED) Upper extremity site restriction: No upper extremity site restrictions, Quantity of PIVs requested: One, STAT, Once, On Wed03/10/23 at 0831, For 1 occurrence And sodium chloride 0.9 % injection 2-10 mLJump to med 2-10 mL, intravenous, As needed, line care, Starting on Wed03/10/23 at 0830 documented in this encounter Additional Health Concerns Infection Onset Date Last Indicated Resolved Time COVID19 Pending 03/10/2023 03/10/2023 03/10/2023 9 :12 AM MANAGER OPERATIONS AND PROCUREMENT Assessment Noted Time PHQ-9 Depression Total Score: 3 04/23/19 22 8:30 AM MANAGER OPERATIONS AND PROCUREMENT documented as of this encounter Care Teams Molding And Trim Installer Relationship Specialty Start Date End Date Elsewhere, Pcp PCP - General Internal Medicine 01/07/22 documented as of this encounter
--- OUTSIDE RECORDS SUMMARY | 2023-04-06 19:23 | XMS_ITS | Encounter Summary ---
Author Name Unknown Organization [facility] Address [address] [place] [address] Care Team Providers Care Switchboard Clerk Name Role Phone Elsewhere, Pcp Primary Care Provider Unavailabl e Reason for Referral * Outpatient (Routine) - Closed Specialty Diagnoses / Procedures Referred By Polinaac t Referred To Contact Diagnoses Pain Left Lower Quadrant Procedures FL Esophagram Single Contrast Ronal Henderson M.D. [address] [place] [phone] [facility] Referral ID Status Reason Start Date Expiration Date Visits Re quested Visits Authorized [id number] Closed 03/08/2023 03/07/2024 1 1 CLOCK REPAIRER Reason for Visit * Outpatient (Routine) - Closed Specialty Diagnoses / Procedures Referred By Tania t Referred To Contact Diagnoses Pain Left Lower Quadrant Procedures FL Esophagram Single Contrast Ronal Henderson M.D. [address] [place] [phone] [facility] Referral ID Status Reason Start Date Expiration Date Visits Re quested Visits Authorized [id number] Closed 03/08/2023 03/07/2024 1 1 Encounter Details Date Type Department Care Team (Latest Contact Info) Description 03/25/2023 9:23 AM TIME CLOCK REPAIRER - 03/25/2023 11:59 PM TIME CLOCK REPAIRER Hospital Encounter Department of Radiology, [facility], in [place], [place] [address] [place] [phone] Ronal Henderson M.D. [address] [place] [phone] Paul Car M.D. [address] [place] [phone] Pain Left Lower Quadrant Discharge Disposition: Home or Self Care Social [...] often do you attend chur ch or latter-day services? 1 to 4 times per year 04/03/2022 Do you belong to any clubs o r organizations such as uatsdin groups, unions, fraternal or athletic groups, or [...] Answer Date Recorded PHQ-2 Score 0 12/10/2021 [facility] - Occupational [...] place to sleep or slept in a fpc (including now)? No 04/03/2022 Depression Answer Date [...] nostril daily. 0 gabapentin (NEURONTIN) 300 mg capsuleIndications:Fi bromyalgia Take 1 capsule (300 mg total) by mouth 3 (three) times a day. 90 capsule 1 07/10/2021 hydrOXYzine (ATARAX) 25 mg tabletIndications:Anx iety TAKE 1 TABLET (25 MG TOTAL) BY [...] Take 500 mg by mouth. 0 11/11/2022 documented as of this encounter Plan of Treatment Not on file documented as of this encounter Procedures Procedure Name Priority Date/Time Associated Diagnosis Comments FL ESOPHAGRAM SINGLE CONTRAST RAD - Routine (most inpatients and all outpatients) 03/25/2023 10:08 AM TIME CLOCK REPAIRER Pain Left Lower Quadrant documented in this encounter Results * FL Esophagram Single Contrast (03/25/2023 10:08 AM TIME CLOCK REPAIRER) Anatomical Region Laterality Modality Gastro Intestinal, Abdominal RST LOS, Abdominal ARZ LOS, Abdominal FLA LOS N/A Digital Radiography Impressions 03/25/2023 10:13 AM TIME CLOCK REPAIRER Small sliding-type hiatal hernia. No reflux observed. Narrative 03/25/2023 10:13 AM TIME CLOCK REPAIRER EXAM: FL ESOPHAGRAM SINGLE CONTRAST FINDINGS: Normal [...] hernia. No reflux observed. Ronal Henderson M.D. IMMadhav FLUOROSCOPY MT OCEDURES documented in this encounter Visit Diagnoses Diagnosis Pain Left Lower Quadrant documented in this encounter Administered Medications Inactive Administered Medications - up to 3 most recent administrations Medication Order MAR Action Action Date Dose Rate Site barium 60 % (w/v) suspension 60 mL (LIQUID E-Z-PAQUE) 60 mL, oral, Once in imaging, contrast, Starting on Belinda 03/25/23 at 1010, For 1 dose Given 03/25/2023 10:11 AM TIME CLOCK REPAIRER 60 mL barium 98 % oral powder for suspension 90 mL (E-Z-HD) 90 mL, oral, Once in imaging, contrast, Starting on Belinda 03/25/23 at 1010, For 1 dose Given 03/25/2023 10:12 AM TIME CLOCK REPAIRER 90 mL documented in this encounter Additional Health Concerns Assessment Noted Time PHQ-9 Depression Total Score: 3 04/23/19 22 8:30 AM TIME CLOCK REPAIRER documented as of this encounter Care Teams Switchboard Clerk Relationship Specialty Start Date End Date Elsewhere, Pcp PCP - General Internal Medicine 01/07/22 documented as of this encounter
--- OUTSIDE RECORDS SUMMARY | 2023-04-06 19:23 | XMS_ITS | Encounter Summary ---
Author Name Unknown Organization [facility] Address [address] [place] [address] Care Team Providers Care Recovery Advocate Name Role Phone Elsewhere, Pcp Primary Care Provider Unavailabl e Reason for Visit * Reason Onset Date Comments Med Question 03/08/2023 Encounter Details Date Type Department Care Team (Late st Contact Info) Description 03/08/[address] [facility] Department of Family Medicine in [place], [place] [address] [place] [phone] Suha Lea, R.N. Med Question Social History Tobacco Use Types Packs/Day Years [...] often do you attend chur ch or scientologist services? 1 to 4 times per year 04/03/2022 Do you belong to any clubs o r organizations such as orthodox groups, unions, fraternal or athletic groups, or [...] Answer Date Recorded PHQ-2 Score 0 12/10/2021 [facility] of Occupat ional Health - Occupational Stress [...] place to sleep or slept in a [place] health care facility (including now)? No 04/03/2022 Depression Answer Date [...] on file documented as of this encounter Miscellaneous Notes * Telephone Encounter - Suha Lea, RSonaN. - 03/08/2023 9:44 PM SENIOR CENTER MANAGER Patient calls to verify home medications she would like to take for nausea does not interact with medications given via IV in ED today. Call transferred to [facility] to connect to [place] [facility]. OR CENTER MANAGER documented in this encounter Plan of Treatment Not on file documented as of this encounter Visit Diagnoses Not on filedocumented in this encounter Additional Health Concerns Assessment Noted Time PHQ-9 Depression Total Score: 3 04/23/19 22 8:30 AM SENIOR CENTER MANAGER documented as of this encounter Care Teams Recovery Advocate Relationship Specialty Start Date End Date Elsewhere, Pcp PCP - General Internal Medicine 01/07/22 documented as of this encounter
--- OUTSIDE RECORDS SUMMARY | 2023-04-06 19:23 | XMS_ITS | Encounter Summary ---
Author Name Unknown Organization [facility] Address [address] [place] [address] Care Team Providers Care Fun House Operator Name Role Phone Elsewhere, Pcp Primary Care Provider Unavailabl e Reason for Visit * Reason Comments Dizziness Encounter Details Date Type Department Care Team ([facility] st Contact Info) Description 03/11/2023 8:53 PM DRINKING WATER TECHNICIAN - 03/12/2023 2:30 AM [facility] Emergency [place] [facility] [address] [place] [phone] Boyd Lynn M.D. [address] [place] [address] [phone] Lightheadedness (Primary Dx) Discharge Disposition: Home or [...] How often do you attend chur or sikhism services? 1 to 4 times per year 04/03/2022 Do you belong to any clubs o r organizations such as restoration groups, unions, fraternal or athletic groups, or [...] Answer Date Recorded PHQ-2 Score 0 12/10/2021 [facility] of Occupat ional Health - Occupational Stress [...] Sign Reading Time Taken Comments Blood Pressure 122/69 03/12/2023 1:15 AM DRINKING WATER TECHNICIAN Pulse 66 03/12/2023 1:30 AM DRINKING WATER TECHNICIAN Temperature 37 ??C (98.6 ??F) 03/11/2023 9:12 PM DRINKING WATER TECHNICIAN Respiratory Rate 13 03/12/2023 12:30 AM DRINKING WATER TECHNICIAN Oxygen Saturation 99% 03/12/2023 1:30 AM DRINKING WATER TECHNICIAN Inhaled Oxygen Concentration - - Weight - - Height - - Body Mass Index - - documented in this encounter Discharge Instructions * Discharge Instructions* Boyd Lynn M.D. - 03/12/2023 2:30 AM DRINKING WATER TECHNICIAN Unclear cause of your lightheadedness tonight, though I suspect your potentially mildly dehydrated.Not enough that your electrolytes or kidney function is off but enough to make you symptomatic. Labs are overall looking great. I think your best course is to focus on overall wellness. Make sureyou take plenty of fluids. You should be urinating five or 6 times a day. If you feel so lightheaded you might fall you should sit down or otherwise keep herself safe. If symptoms continue more than another couple days plan to follow up with your primary care doctor early to mid next week. KING WATER TECHNICIAN documented in this encounter Medications at Time [...] as of this encounter ED Notes * Boyd Lynn M.D. - 03/11/2023 11:[address] [facility] 03/12/2023 8:25 AM DRINKING WATER TECHNICIAN *Encounter labs and radiology results at the end of this note* Chief Complaint Patient presents with Dizziness PCP: ELSEWHERE, PCP HPI: Henny Rivas is a 42 y.o. woman with a history of obesity, fibromyalgia, anxiety, migraine, seen in this emergency department on both 03/08/23 and 03/10/23 for left lower quadrant abdominal painand influenza like illness respectively. Presenting today with lightheadedness (not specifically dizziness) for about the last 6 hours. She had been feeling well, feeling like she would actually was improving her illness until about 16:00 when she began to develop lightheadedness with position changes and subsequently at rest. Noted that she felt lightheaded like she was going to pass out when bathing her daughter. Nausea without vomiting. No further fevers. Swabs yesterday were negative for influenza, COVID, RSV, but highly suspicious for other viral syndrome. Eating drinking as per usual. Normal urinary patterns. No significant abdominal pain on this presentation. No chest pain, shortnessof breath, diaphoresis. Tolerating p.o. intake. A complete review of systems was obtained and negative except as in the HPI. No alcohol, tobacco, or illicit drugs. PHYSICAL EXAMINATION General: Malaise but otherwise nontoxic-appearing in no acute distress. HEENT: Head is normocephalic and atraumatic. Hearing and vision are grossly normal. No scleral icterus, jaundice, or pallor. Neck: Supple, with normal range of motion. Heart: Heart rate is normal and regular, no murmurs. Lungs: Clear to auscultation bilaterally, no wheezes or rales. Abdomen: Soft, nontender, nondistended. Skin: Warm and well-perfused Neurologic: GCS 15. Moving all 4 extremities spontaneously. Speech clear. Psychiatric: Normal mood and affect. Differential diagnosis includes dehydration, electrolyte abnormality, persistent viral symptoms, arrhythmia, anemia. MDM: 42-year-old woman presenting for re-evaluation after being seen approximately 24 hours ago, presenting today with lightheadedness. No associated significant concerning symptoms. Labs are normal across the board with no anemia, renal dysfunction, evidence of dehydration or electrolyte abnormality. Ambulatory independently to the bathroom without any major symptoms. Bolused a L of normal saline with improvement in symptoms. Plan for discharge home with expectant management for symptoms consistent with a viral respiratory syndrome. Final Diagnoses: as of 03/12/23 0825 Lightheadedness Vitals: 03/12/23 0045 03/12/23 0100 03/12/23 0115 03/12/23 0130 BP: 122/70 118/71 122/69 Pulse: 66 66 71 66 Resp: Temp: TempSrc: SpO2: 99% 100% 100% 99% Medications NaCl 0.9 % bolus 1,000 mL (0 mL intravenous Stopped 03/12/23 0120) Clinical Impression: Final diagnoses: [R42] Lightheadedness Disposition: Discharge ED Prescriptions None Labs Reviewed CBC WITH DIFFERENTIAL, B Result Value Hemoglobin 12.9 Hematocrit 39.5 Erythrocytes 4.57 MCV 86.4 RBC Distrib Width 14.3 Platelet Count 261 Leukocytes 7.4 Neutrophils 4.92 Lymphocytes 1.64 Monocytes 0.73 Eosinophils 0.13 Basophils 0.02 BASIC METABOLIC PANEL, S/P Potassium, P 4.0 Sodium, P 139 Chloride, P 104 Bicarbonate, P 23 Anion Gap, P 12 BUN (Blood Urea Nitrogen), P 9 Creatinine 0.83 Estimated GFR (eGFR) >90 Calcium, Total, P 9.6 Glucose, P 98 TROPONIN T, BASELINE, 5TH GEN, P Troponin T, Baseline, 5th gen <6 TROPONIN T, 2H/6H, 5TH GEN, P Troponin T, 2 hr, 5th gen <6 2H Delta 0 2H Delta Interp Not Changing Troponin T, 6 hr, 5th gen CANCELED 6H Delta CANCELED 6H Delta % CANCELED Narrative: Specimen Information: Specimen ID: [id number] Specimen Type: Blood Specimen Collection Start Date: 03/12/2023 12:41 AM Specimen Received Date: 03/12/2023 12:43 AM Specimen ID: [id number] Specimen Type: Blood No orders to display Boyd Lynn M.D. 03/12/23 0830 KING WATER TECHNICIAN documented in this encounter Plan of Treatment Not on file documented as of this encounter Procedures Procedure Name Priority Date/Time Associated Diagnosis Comments TROPONIN T, 2H/6H, 5TH GEN, P Timed 03/12/2023 12:41 AM DRINKING WATER TECHNICIAN TROPONIN T, BASELINE, 5TH GEN, P STAT 03/11/2023 10:57 PM DRINKING WATER TECHNICIAN CBC WITH DIFFERENTIAL, B STAT 03/11/2023 10:57 PM DRINKING WATER TECHNICIAN BASIC METABOLIC PANEL, S/P STAT 03/11/2023 10:57 PM DRINKING WATER TECHNICIAN documented in this encounter Results * Troponin T, 2h/6h, 5th Gen (03/12/2023 12:41 AM DRINKING WATER TECHNICIAN) Troponin T, 2 hr, 5th gen <6 <=10 ng/L 03/12/2023 1:03 AM DRINKING WATER TECHNICIAN NPRG 2H Delta 0 ng/L 03/12/2023 1:03 AM DRINKING WATER TECHNICIAN NPRG 2H Delta Interp Not Changing 03/12/2023 1:03 AM DRINKING WATER TECHNICIAN NPRG Troponin T, 6 hr, 5th gen CANCELED ng/L 03/12/2023 1:03 AM DRINKING WATER TECHNICIAN NPRG Comment:Result canceled by t he ancillary. 6H Delta CANCELED ng/L 03/12/2023 1:03 AM DRINKING WATER TECHNICIAN NPRG Comment:Result canceled by t he ancillary. 6H Delta % CANCELED % 03/12/2023 1:03 AM DRINKING WATER TECHNICIAN NPRG Comment:Result canceled by t he ancillary. Blood (Blood, Venous) 03/12/2023 12:41 AM DRINKING WATER TECHNICIAN 03/12/2023 12:43 AM DRINKING WATER TECHNICIAN Narrative [facility] - 03/12/2023 1:03 AM DRINKING WATER TECHNICIAN Specimen Information: Specimen ID: [id number] Specimen Type: Blood Specimen Collection Start Date: 03/12/2023 12:41 AM Specimen Received Date: 03/12/2023 12:43 AM Specimen ID: [id number] Specimen Type: Blood Boyd Lynn M.D. LAB BLOOD [facility] [address] [place] [address], [facility] NPRG [place] [address] [place] [address] * Troponin T, Baseline, 5th gen (03/11/2023 10:57 PM DRINKING WATER TECHNICIAN) Troponin T, Baseline, 5th gen <6 <=10 ng/L 03/11/2023 11:50 PM DRINKING WATER TECHNICIAN NPRG Blood (Blood, Venous) 03/11/2023 10:57 PM DRINKING WATER TECHNICIAN 03/11/2023 11:01 PM DRINKING WATER TECHNICIAN Boyd Lynn M.D. LAB BLOOD [facility] [address] [place] [address], [place] NPR[facility] [place] [address] [place] [address] * Basic Metabolic Panel (03/11/2023 10:57 PM DRINKING WATER TECHNICIAN) Potassium, P 4.0 3.6 - 5.2 mmol/L 03/11/2023 11:25 PM DRINKING WATER TECHNICIAN NPRG Sodium, P 139 135 - 145 mmol/L 03/11/2023 11:25 PM DRINKING WATER TECHNICIAN NPRG Chloride, P 104 98 - 107 mmol/L 03/11/2023 11:25 PM DRINKING WATER TECHNICIAN NPRG Bicarbonate, P 23 22 - 29 mmol/L 03/11/2023 11:25 PM DRINKING WATER TECHNICIAN NPRG Anion Gap, P 12 7 - 15 03/11/2023 11:25 PM DRINKING WATER TECHNICIAN NPRG BUN (Blood Urea Nitrogen), P 9 6 - 21 mg/dL 03/11/2023 11:25 PM DRINKING WATER TECHNICIAN NPRG Creatinine 0.83 0.59 - 1.04 mg/dL 03/11/2023 11:25 PM DRINKING WATER TECHNICIAN NPRG Estimated GFR (eGFR) >90 >=60 mL/min/BSA 03/11/2023 11:25 PM DRINKING WATER TECHNICIAN NPRG Comment: Estimated GFR calculated using the 2020 CKD_EPI creatinine equation. Calcium, Total, P 9.6 8.6 - 10.0 mg/dL 03/11/2023 11:25 PM DRINKING WATER TECHNICIAN NPRG Glucose, P 98 70 - 140 mg/dL 03/11/2023 11:25 PM DRINKING WATER TECHNICIAN NPRG Blood (Blood, Venous) 03/11/2023 10:57 PM DRINKING WATER TECHNICIAN 03/11/2023 11:01 PM DRINKING WATER TECHNICIAN Boyd Lynn M.D. LAB BLOOD ADD-ON [facility] [address] [place] [address], [facility] NPRG [facility] [address] [place] [address] * CBC with Differential, Blood (03/11/2023 10:57 PM DRINKING WATER TECHNICIAN) Hemoglobin 12.9 11.6 - 15.0 g/dL 03/11/2023 11:19 PM DRINKING WATER TECHNICIAN NPRG Hematocrit 39.5 35.5 - 44.9 % 03/11/2023 11:19 PM DRINKING WATER TECHNICIAN NPRG Erythrocytes 4.57 3.92 - 5.13 x10(12)/L 03/11/2023 11:19 PM DRINKING WATER TECHNICIAN NPRG MCV 86.4 78.2 - 97.9 fL 03/11/2023 11:19 PM DRINKING WATER TECHNICIAN NPRG RBC Distrib Width 14.3 12.2 - 16.1 % 03/11/2023 11:19 PM DRINKING WATER TECHNICIAN NPRG Platelet Count 261 157 - 371 x10(9)/L 03/11/2023 11:19 PM DRINKING WATER TECHNICIAN NPRG Leukocytes 7.4 3.4 - 9.6 x10(9)/L 03/11/2023 11:19 PM DRINKING WATER TECHNICIAN NPRG Neutrophils 4.92 1.56 - 6.45 x10(9)/L 03/11/2023 11:19 PM DRINKING WATER TECHNICIAN NPRG Lymphocytes 1.64 0.95 - 3.07 x10(9)/L 03/11/2023 11:19 PM DRINKING WATER TECHNICIAN NPRG Monocytes 0.73 0.26 - 0.81 x10(9)/L 03/11/2023 11:19 PM DRINKING WATER TECHNICIAN NPRG Eosinophils 0.13 0.03 - 0.48 x10(9)/L 03/11/2023 11:19 PM DRINKING WATER TECHNICIAN NPRG Basophils 0.02 0.01 - 0.08 x10(9)/L 03/11/2023 11:19 PM DRINKING WATER TECHNICIAN NPRG Blood (Blood, Venous) 03/11/2023 10:57 PM DRINKING WATER TECHNICIAN 03/11/2023 11:01 PM DRINKING WATER TECHNICIAN Boyd Lynn M.D. LAB BLOOD ADD-ON [facility] [address] [place] [address], [facility] NPRG [facility] [address] [place] [address] documented in this encounter Visit Diagnoses Diagnosis Lightheadedness- Primary documented in this encounter Administered Medications Inactive Administered Medications - up to 3 most recent administrations Medication Order MAR Action Action Date Dose Rate Site NaCl 0.9 % bolus 1,000 mL 1,000 mL, intravenous, at 1,000 mL/hr, Administer over 1 Hours, Once, On Belinda 03/11/23 at 2240, For 1 dose New Bag 03/12/2023 12:15 AM DRINKING WATER TECHNICIAN 1,000 mL 1000 mL/hr sodium chloride 0.9 % injection 2-10 mL 2-10 mL, intravenous, As needed, line care, Starting on Belinda 03/11/23 at 2239 documented in this encounter Active and Recently Administered Medications Times are shown in DRINKING WATER TECHNICIAN. Scheduled Medication Order 03/10/2023 03/11/2023 03/12/2023 NaCl 0.9 % bolus 1,000 mL (COMPLETED) 1,000 mL, intravenous, at 1,000 mL/hr, Administer over 1 Hours, Once, On Belinda 03/11/23 at 2240, For 1 dose 0015 (New Bag - Prov ider: Wendy Hyde R.N. - Comment: Fluids started later due to troubles with getting IV access.)0120 (Stopped - Provider: Wendy Hyde R.N.) PRN Medication Order 03/10/2023 03/11/2023 03/12/2023 sodium chloride 0.9 % injection 2-10 mL(Linked Group 1) 2-10 mL, intravenous, As needed, line care, Starting on Belinda 03/11/23 at 2239 Linked Groups Order Group 1: Place peripheral IV: No upper extremity site restrictions (CANCELED) Upper extremity site restriction: No upper extremity site restrictions, Quantity of PIVs requested: One, STAT, Once, On Belinda 03/11/23 at 2240, For 1 occurrence And sodium chloride 0.9 % injection 2-10 mLJump to med 2-10 mL, intravenous, As needed, line care, Starting on Belinda 03/11/23 at 2239 documented in this encounter Additional Health Concerns Assessment Noted Time PHQ-9 Depression Total Score: 3 04/23/19 22 8:30 AM DRINKING WATER TECHNICIAN documented as of this encounter Care Teams Fun House Operator Relationship Specialty Start Date End Date Elsewhere, Pcp PCP - General Internal Medicine 01/07/22 documented as of this encounter
--- OUTSIDE RECORDS SUMMARY | 2023-04-06 19:24 | XMS_ITS | Encounter Summary ---
Author Name Unknown Organization [facility] Address [address] [place] [address] Care Team Providers Care Horn Player Name Role Phone Elsewhere, Pcp Primary Care Provider Unavailabl e Reason for Visit * Reason Comments Anxiety Patient reports feel ing shaky and anxious, which has starting after increasing her Zoloft to 75 mg. Encounter Details Date Type Department Care Team ([facility] st Contact Info) Description 06/09/2022 4:00 PM CDT - 06/09/2022 4:59 PM CDT Emergency [facility] [address] [place] [phone] Jesus Manuel Rodriguez M.D. [address] [place] [phone] Anxiety (Primary Dx) Discharge Disposition: Home or Self [...] How often do you attend chur or protestant services? 1 to 4 times per year 04/03/2022 Do you belong to any clubs o r organizations such as anglican groups, unions, fraternal or athletic groups, or [...] Answer Date Recorded PHQ-2 Score 0 12/10/2021 [facility] of Occupat ional Health - Occupational Stress [...] place to sleep or slept in a correction (including now)? No 04/03/2022 Depression Answer Date [...] Sign Reading Time Taken Comments Blood Pressure 135/76 06/09/2022 4:50 PM CDT Pulse 71 06/09/2022 4:59 PM CDT Temperature 36.8 ??C (98.2 ??F) 06/09/2022 4:50 PM CD T Respiratory Rate 18 06/09/2022 4:50 PM CDT Oxygen Saturation 100% 06/09/2022 4:59 PM CDT Inhaled Oxygen Concentration - - Weight 104 kg (228 lb 8 oz) 06/09/2022 4:13 PM C DT Height 167.6 cm (5' 6) 06/09/2022 4:13 PM CDT Body Mass Index 36.88 06/09/2022 4:13 PM CDT documented in this encounter Medications at Time of Discharge Medication Sig Dispensed Refills Start Date End Date acetaminophen (TYLENOL) 500 mg capsule Take 1,000 mg by mouth every 6 (six) hours as needed for pain. 0 cetirizine (ZyrTEC) 10 mg tablet Take 10 mg by mouth 2 (two) times a day as needed. For allergies 0 cholecalciferol (VITAMIN D3) 50 mcg (2,000 Unit) tablet Take 50 mcg by mouth daily. 0 cyclobenzaprine (FLEXERIL) 10 mg tabletIndications:Pain Rib,Strain Back Muscle Subsequent Take 1 tablet (10 mg total) by mouth 3 (three) times a day as needed for muscle spasms for up to 10 days. for muscle spams 30 tablet 0 06/01/2022 fluticasone propionate (FLONASE) 50 mcg/actuation nasal spray [...] OF 3200 MG IN 24 HOURS. 0 LORazepam (ATIVAN) 1 mg tablet Take 0.5 tablets (0.5 mg total) by mouth at bedtime as needed for anxiety. 10 tablet 0 06/09/2022 multivitamin tablet Take 1 tablet by mouth daily. 0 spironolactone (ALDACTONE) 50 mg tablet Take 1 tablet (50 mg total) by mouth daily. 30 tablet 0 01/30/2022 amoxicillin-pot clavulanate (AUGMENTIN) 875-125 mg per tablet Take 1 tablet by mouth every 12 (twelve) hours for 10 days. 20 tablet 0 05/30/2022 06/09/2022 betamethasone dipropionate (DIPROLENE) 0.05 % ointment APPLY TOPICALLY TO HANDS TWICE A DAY FOR 2 WEEKS THEN 2 WEEKS OFF 0 03/03/2022 02/15/2023 eflornithine (Vaniqa) 13.9 % cream Vaniqa 13.9 % topical cream 0 08/30/2022 metFORMIN (GLUCOPHAGE) 500 mg tablet TAKE 1 TABLET 3 TIMES A DAY BY ORAL ROUTE AFTER MEALS. 0 02/11/2022 08/30/2022 methylPREDNISolone (MEDROL DOSEPAK) 4 mg tabletIndications:Pain Rib,Strain Back Muscle Subsequent Follow package directions. 21 tablet 0 06/01/2022 08/30/2022 mometasone (ELOCON) 0.1 % ointment as needed. 0 07/29/2021 08/30/2022 omeprazole (PriLOSEC) [address] capsule Take 20 mg by mouth daily. 0 05/13/2022 02/15/2023 sertraline (ZOLOFT) 50 mg tablet Take 75 mg by mouth daily. 0 05/13/2022 08/30/2022 traMADoL (ULTRAM) 50 mg tablet TAKE 1-2 TABLETS (50-100MG) BY MOUTH EVERY 6 HOURS NEEDED FOR PAIN 0 03/18/2022 02/15/2023 documented as of this encounter ED Notes * Jesus Manuel Rodriguez M.D. - 06/09/2022 4:50 PM CDT SUBJECTIVE CHIEF COMPLAINT/REASON FOR VISIT Anxiety (Patient reports feeling shaky and anxious, which has starting after increasing her Zoloft to 75 mg.) HISTORY OF PRESENT ILLNESS This is a 41-year-old female that was started on Zoloft last month, over last week felt more anxious, so increase her Zoloft to secondary mg and consultation with her decision, have feeling more shaky today, and feeling ???off?? denies any fever, chills, nausea vomiting abdominal pain. 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 Negative for diaphoresis and fever. HENT: Negative for congestion. Respiratory: Negative for chest tightness and shortness of breath. Cardiovascular: Negative for chest pain. Gastrointestinal: Negative for abdominal pain. Genitourinary: Negative for dysuria and hematuria. Neurological: Shaking OBJECTIVE Initial Vitals Temperature 06/09/22 1615 36.7 ??C Pulse Rate 06/09/22 1615 78 Heart Rate -- Resp Rate 06/09/22 1615 20 Blood Pressure 06/09/22 1615 (!) 133/98 SpO2 06/09/22 1615 100 % Pain Score 06/09/22 1612 0 - No pain PHYSICAL EXAMINATION Constitutional: Nursing note and vitals reviewed. No distress. HENT: Head: Atraumatic. Nose: No nasal discharge. Mouth/Throat: Mucous membranes are moist. Eyes: Conjunctivae are normal. Neck: No tracheal deviation present. Pulmonary/Chest: Effort normal. There is normal air entry. No tachypnea. No respiratory distress. She exhibits no retraction. Abdominal: Soft. exhibits no distension. Neurological: Alert and oriented to person, place, and time. Skin: Skin is warm and dry. Psychiatric: She has a normal mood and affect. Behavior is normal. Judgment and thought content normal. Anxious ASSESSMENT/PLAN She is appear anxious, calm talking, she would concerns about her Zoloft and possible serotonin syndrome. She has no 100 criteria, she is not altered, afebrile, she would no ocular motion abnormalityat all, no upper or lower extremity clonus. Feel this could be just anxiety and panic attack, some people do not like the way Zoloft makes themfeel. Feel she can taper off, had long discussion about the utility of lab work, feel not much would be gained by lab work or imaging, and through shared decision-making this was deferred. 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 On last evaluation, patient stable for discharge. ED return precautions given, both specific for condition and if they feel any concern for a change or worsening of their condition. Advised to follow up with primary care physician. Final Diagnoses: as of 06/09/22 1650 Anxiety Jesus Manuel Rodriguez M.D. 06/09/22 1658 documented in this encounter Plan of Treatment Not on file documented as of this encounter Visit Diagnoses Diagnosis Anxiety- Primary documented in this encounter Additional Health Concerns Assessment Noted Time PHQ-9 Depression Total Score: 3 04/23/19 22 8:30 AM GOLD MARKER documented as of this encounter Care Teams Horn Player Relationship Specialty Start Date End Date Elsewhere, Pcp PCP - General Internal Medicine 01/07/22 documented as of this encounter
--- OUTSIDE RECORDS SUMMARY | 2023-04-06 19:24 | XMS_ITS | Encounter Summary ---
Author Name Unknown Organization [facility] Address [address] [place] [address] Care Team Providers Care Student Finance Advisor Name Role Phone Elsewhere, Pcp Primary Care Provider Unavailabl e Reason for Visit * Reason Comments Constipation Pt presents with fatou oing constipation. Pt was seen in [facility] ED and was increased to 2x day miralax. Pt reports abdominal pain around umbilicus Encounter Details Date Type Department Care Team (Late st Contact Info) Description 08/30/2022 8:07 PM CDT - 08/30/2022 10:34 PM CDT Emergency [facility] [address] [place] [address] [phone] Boyd Lynn M.D. [address] [place] [phone] Discomfort Abdominal (Primary Dx) Discharge Disposition: Home or Self [...] How often do you attend chur or rastafari services? 1 to 4 times per year 04/03/2022 Do you belong to any clubs o r organizations such as congregation groups, unions, fraternal or athletic groups, or [...] Answer Date Recorded PHQ-2 Score 0 12/10/2021 [facility] [place] of Occupat ional Health - Occupational Stress [...] place to sleep or slept in a long-term (including now)? No 04/03/2022 Depression Answer Date [...] Sign Reading Time Taken Comments Blood Pressure 136/95 08/30/2022 10:34 PM CDT Pulse 63 08/30/2022 10:34 PM CDT Temperature 36.4 ??C (97.5 ??F) 08/30/2022 10:34 PM C DT Respiratory Rate 16 08/30/2022 8:09 PM CDT Oxygen Saturation 100% 08/30/2022 10:34 PM CDT Inhaled Oxygen Concentration - - Weight 104 kg (228 lb 9.9 oz) 08/30/2022 7:53 PM CDT Height 167.6 cm (5' 6) 08/30/2022 9:01 PM CDT Body Mass Index 36.9 08/30/2022 7:53 PM CDT documented in this encounter Discharge Instructions * Discharge Instructions* Boyd Lynn M.D. - 08/30/2022 10:21 PM CDT Start the Senokot prescription as prescribed. If this helps continue, if not you can discontinue. You can also like we discussed try some Gas-X. documented in this encounter Medications at Time of Discharge Medication Sig Dispensed Refills Start Date End Date acetaminophen (TYLENOL) 500 mg capsule Take 1,000 mg by mouth every 6 (six) hours as needed for pain. 0 ALPRAZolam (XANAX) 0.5 mg tablet Take 1 tablet by mouth 2 (two) times a day as needed. 0 cetirizine (ZyrTEC) 10 mg tablet Take 10 mg by mouth 2 (two) times a day as needed. For allergies 0 cholecalciferol (VITAMIN D3) 50 mcg (2,000 Unit) tablet Take 50 mcg by mouth daily. 0 fluticasone propionate (FLONASE) 50 mcg/actuation nasal spray [...] by mouth daily. 30 tablet 0 01/30/2022 sennosides-docusate sodium (Senna with Docusate Sodium) 8.6-50 mg per tablet Take 1 tablet by mouth 2 (two) times a day. 60 tablet 0 08/30/2022 09/29/2022 betamethasone dipropionate (DIPROLENE) 0.05 % ointment APPLY TOPICALLY TO HANDS TWICE A DAY FOR 2 WEEKS THEN 2 WEEKS OFF 0 03/03/2022 02/15/2023 fluconazole (DIFLUCAN) 150 mg tablet TAKE 1 TABLET BY ORAL ROUTE ONCE. MAY REPEAT DOSE IN 72HRS IF STILL SYMPTOMATIC. MAX 3 DOSES. 0 08/21/2022 02/15/2023 omeprazole (PriLOSEC) [address] capsule Take 20 mg by mouth daily. 0 05/13/2022 02/15/2023 traMADoL (ULTRAM) 50 mg tablet TAKE 1-2 TABLETS (50-100MG) BY MOUTH EVERY 6 HOURS NEEDED FOR PAIN 0 03/18/2022 02/15/2023 documented as of this encounter ED Notes * Boyd Lynn M.D. - 08/30/2022 10:08 PM CDT [facility] Department of Emergency Medicine- [facility] 08/31/2022 1:13 AM CDT *Encounter labs and radiology results at the end of this note* Chief Complaint Patient presents with Constipation Pt presents with ongoing constipation. Pt was seen in [facility] ED and was increased to 2x day miralax. Pt reports abdominal pain around umbilicus PCP: ELSEWHERE, PCP HPI: Henny Rivas is a 41 y.o. woman with a history of obesity, fibromyalgia, anxiety, presenting with concern for ongoing constipation. She notes that ever since starting Zoloft in May (only took for three weeks and then discontinued due to side effects/constipation) she has had problems with constipation. Seen in the [place] [facility] about a week ago with a negative CT scan. Seen two days ago in the emergency department again with presumed constipation. Prescribed a jug of GoLYTELY which she has not started yet. At home she has been using docusate, double dose MiraLax, gluten avoidance, and fiber supplements, all without significant relief of upper abdominal cramping anddiscomfort along with a sensation of needing to have a bowel movement but unable to pass stool. Denies fevers chills nausea vomiting or diarrhea. Denies a history of irritable bowel syndrome, denies history of inflammatory bowel disease. No abdominal surgeries. Tolerating p.o. intake. Normal urinary patterns. A complete review of systems was obtained and negative except as in the HPI. No significant alcohol, tobacco, or illicit drugs. PHYSICAL EXAMINATION General: Well-appearing in no acute distress. HEENT: Head is normocephalic and atraumatic. Hearing and vision are grossly normal. No scleral icterus, jaundice, or pallor. Neck: Supple, with normal range of motion. Heart: Heart rate is normal and regular, no murmurs. Lungs: Clear to auscultation bilaterally, no wheezes or rales. Abdomen: Soft, mild diffuse tenderness, no rebound, nondistended. Skin: Warm and well-perfused Neurologic: GCS 15. Moving all 4 extremities spontaneously. Speech clear. Psychiatric: Normal mood and affect. Differential diagnosis includes constipation, obstipation, bowel obstruction, irritable bowel syndrome, electrolyte abnormality, dehydration, less likely intra-abdominal surgical pathology or catastrophe. MDM: 41-year-old woman presenting with continued sensation of needing to have a bowel movement and unable to pass stool, concern for constipation. Plain film was obtained and when compared to CT fromabout 10 days ago she has significantly less stool burden. Really minimal stool in the colon at this point of any type. Discussed with her at bedside that this sensation of needing to pass stool may represent disrupted bowel sensation, complicated by anxiety, fibromyalgia, and subacute to chronic bowel pathology. I would not be surprised if she also has irritable bowel syndrome given her history of fibromyalgia and anxiety. These pathologies often coexist. No indication for labs or more advanced imaging at this point. Will start on Senokot to promote motility and have her resume a normal diet. Final Diagnoses: as of 08/31/22112 Discomfort Abdominal Vitals: 08/30/22 2200 08/30/22 2215 08/30/22 22308/30/222233 BP: 143/89 (!) 136/95 BP Location: Left arm Patient Position: Sitting Pulse: 61 70 (!) 57 63 Resp: Temp: 36.4 ??C TempSrc: Temporal SpO2: 100% 100% 100% 100% Weight: Height: Medications - No data to display Clinical Impression: Final diagnoses: [R10.9] Discomfort Abdominal Disposition: Discharge ED Prescriptions Medication Sig Dispense Start Date End Date Auth. Provider sennosides-docusate sodium (Senna with Docusate Sodium) 8.6-50 mg per tablet Take 1 tablet by mouth2 (two) times a day. 60 tablet 08/30/2022 09/29/2022 Boyd Lynn M.D. Labs Reviewed - No data to display DX Abdomen 1 View Final Result No obstruction or significant stool volume. Possible colonic wall thickening along the left hemiabdomen-correlate for any clinical signs of colitis. Boyd Lynn M.D. 08/31/22117 documented in this encounter Plan of Treatment Not on file documented as of this encounter Procedures Procedure Name Priority Date/Time Associated Diagnosis Comments DX ABDOMEN 1 VIEW RAD - Semiurgent (Fast; most ED patients; some inpatients) 08/30/2022 8:56 PM CDT documented in this encounter Results * DX Abdomen 1 View (08/30/2022 8:56 PM CDT) Anatomical Region Laterality Modality Abdomen, Abdominal RST LOS, Abdominal ARZ LOS, Abdominal FLA LOS N/A Digital Radiography 08/30/2022 9:13 PM CDT Impressions 08/30/2022 9:15 PM CDT No obstruction or significant stool volume. Possible colonic wall thickening along the left hemiabdomen-correlate for any clinical signs of colitis. Narrative 08/30/2022 9:15 PM CDT EXAM: DX ABDOMEN 1 VIEW COMPARISON: None FINDINGS: Nonobstructive bowel gas pattern. No free air or portal venous gas. No significant stool volume. Colon is mostly air-filled though there may be wall thickening along the splenic flexure and proximal descending colon. No overt organomegaly. No calcifications suspicious for urinary tract stone disease. Clear lung bases. No acute osseous Procedure Note Justus Saleem M.D. - 08/30/2022 EXAM: DX ABDOMEN 1 VIEW COMPARISON: None FINDINGS: Nonobstructive bowel gas pattern. No free air or portal venousgas. No significant stool volume. Colon is mostly air-filled though there may be wall thickeningalong the splenic flexure and proximal descending colon. No overt organomegaly. No calcificationssuspicious for urinary tract stone disease. Clear lung bases. No acute osseous IMPRESSION: No obstruction or significant stool volume. Possible colonic wallthickening along the left hemiabdomen-correlate for any clinical signs of colitis. Boyd BLOOD DIAGNOSTIC IMAGI NG PROCEDURES documented in this encounter Visit Diagnoses Diagnosis Discomfort Abdominal- Primary documented in this encounter Additional Health Concerns Assessment Noted Time PHQ-9 Depression Total Score: 3 04/23/19 22 8:30 AM 911 EMERGENCY DISPATCHER documented as of this encounter Care Teams Student Finance Advisor Relationship Specialty Start Date End Date Elsewhere, Pcp PCP - General Internal Medicine 01/07/22 documented as of this encounter
--- OUTSIDE RECORDS SUMMARY | 2023-04-06 19:24 | XMS_ITS | Encounter Summary ---
Author Name Unknown Organization [facility] Address [address] [place] [address] Care Team Providers Care Beamer Hand Name Role Phone Elsewhere, Pcp Primary Care Provider Unavailabl e Reason for Visit * Reason Comments Heartburn X 1 mos getting wors e Encounter Details Date Type Department Care Team (Late st Contact Info) Description 02/15/2023 1:45 PM MACHINE CLOTHING MAN Office Visit Urgent Care, [facility], in [place], [place] [address] [place] [phone] Lela Aguiar, P.A.-CSona [address] [place] [address] [phone] Pain Epigastric (Primary Dx) Discharge Disposition: Home [...] often do you attend chur ch or worship services? 1 to 4 times per year [...] Answer Date Recorded PHQ-2 Score 0 12/10/2021 [facility] of Occupat ional Health - Occupational [...] place to sleep or slept in a mcc (including now)? No 04/03/2022 Depression Answer Date [...] Sign Reading Time Taken Comments Blood Pressure 121/87 02/15/2023 1:53 PM MACHINE CLOTHING MAN Pulse 87 02/15/2023 1:53 PM MACHINE CLOTHING MAN Temperature 36.3 ??C (97.3 ??F) 02/15/2023 1:53 PM CS T Respiratory Rate - - Oxygen Saturation 100% 02/15/2023 1:53 PM MACHINE CLOTHING MAN Inhaled Oxygen Concentration - - Weight - - Height - - Body Mass Index - - documented in this encounter Progress Notes * Lela Aguiar P.A.-C. - 02/15/2023 1:45 PM CST SUBJECTIVE CHIEF COMPLAINT / REASON FOR VISIT Henny Rivas is a 42 y.o. female who presents for evaluation of Heartburn (X 1 mos getting worse). Patient has been dealing with abdominal discomfort including epigastric discomfort pain, heartburn for the past 1 month. She states that she has also been following up with the primary care provider regarding this last saw them 2 weeks ago. States that she is currently taking Nexium in the morning and evening. Patient reports she is still having discomfort despite starting the Nexium. No new symptoms. Symptoms have been worsening over the past month. Patient denies any urinary symptoms. Patient states that she was notified today by her OBGYN whom she saw last week that she was positive for bacterial vaginosis. She states that she was prescribed both oral medication and vaginal inserts for treatment of the bacterial vaginosis she has not yet started the treatment. HISTORY OF PRESENT ILLNESS Heartburn She complains of abdominal pain (epigastric), belching and heartburn. She reports no coughing, no hoarse voice, no nausea, no sore throat, no stridor or no wheezing. This is a chronic problem. The current episode started more than 1 month ago. The problem has been unchanged. REVIEW OF SYSTEMS ENT: - Negative for persistent hoarse voice and sore throat. Respiratory: - Negative for coughing and wheezing. Gastrointestinal: Positive for abdominal (belly) pain or cramping (epigastric) and heartburn. - Negative for nausea. Active Ambulatory Problems Diagnosis Date Noted Fibromyalgia 02/12/2021 Headache Benign 02/12/2021 Rhinitis Allergic 04/12/2006 Morbid Obesity Body Mass Index 40.0-44.9 Adult ([facility]) 06/05/2021 Bleeding Postcoital 01/30/2022 Resolved Ambulatory Problems Diagnosis Date Noted No Resolved Ambulatory Problems Past Medical History: Diagnosis Date Eczema ongoing - sensitive skin Current Outpatient Medications on File Prior to Visit Medication Sig Dispense Refill acetaminophen (TYLENOL) 500 mg capsule Take 1,000 mg by mouth every 6 (six) hours as needed for pain. ALPRAZolam (XANAX) 0.5 mg tablet Take 1 tablet by mouth 2 (two) times a day as needed. celecoxib (CeleBREX) 200 mg capsule Take 1 capsule by mouth 2 (two) times a day. cetirizine (ZyrTEC) 10 mg tablet Take 10 mg by mouth 2 (two) times a day as needed. For allergies cholecalciferol (VITAMIN D3) 50 mcg (2,000 Unit) tablet Take 50 mcg by mouth daily. clindamycin (CLEOCIN) 300 mg capsule TAKE 1 CAPSULE EVERY 12 HOURS BY ORAL ROUTE FOR 7 DAYS. fluticasone propionate (FLONASE) 50 mcg/actuation nasal spray Administer 2 sprays into each nostrildaily. gabapentin (NEURONTIN) 300 mg capsule Take 1 capsule (300 mg total) by mouth 3 (three) times a day.90 capsule 1 hydrOXYzine (ATARAX) 25 mg tablet TAKE 1 TABLET (25 MG TOTAL) BY MOUTH 2 (TWO) TIMES A DAY NEEDED FOR ANXIETY. 60 tablet 0 ibuprofen (MOTRIN) 600 mg tablet TAKE 1 TABLET (600 MG) BY MOUTH EVERY 6 HOURS. MAXIMUM OF 3200 MG IN 24 HOURS. lactobacillus combination no.4 3 billion cell capsule Take by mouth. LORazepam (ATIVAN) 1 mg tablet Take 0.5 tablets (0.5 mg total) by mouth at bedtime as needed for anxiety. 10 tablet 0 MAGNESIUM GLYCINATE ORAL Take by mouth. metroNIDAZOLE (METROGEL) 0.75 % (37.5mg/5 gram) vaginal gel INSERT 1 APPLICATORFUL INTO VAGINA ONCEDAILY AT BEDTIME X 5 DAYS THEN 1-2 TIMESWEEK FOR PREVENTION multivitamin tablet Take 1 tablet by mouth daily. psyllium husk-calcium 1-60 gram-mg capsule Take 0.4 g by mouth. spironolactone (ALDACTONE) 50 mg tablet Take 1 tablet (50 mg total) by mouth daily. 30 tablet 0 TURMERIC ROOT EXTRACT ORAL Take 500 mg by mouth. cyclobenzaprine (FLEXERIL) 10 mg tablet Take 1 tablet (10 mg total) by mouth 3 (three) times a day as needed for muscle spasms for up to 10 days. for muscle spams 30 tablet 0 [DISCONTINUED] betamethasone dipropionate (DIPROLENE) 0.05 % ointment APPLY TOPICALLY TO HANDS TWICE A DAY FOR 2 WEEKS THEN 2 WEEKS OFF [DISCONTINUED] fluconazole (DIFLUCAN) 150 mg tablet TAKE 1 TABLET BY ORAL ROUTE ONCE. MAY REPEAT DOSE IN 72HRS IF STILL SYMPTOMATIC. MAX 3 DOSES. [DISCONTINUED] omeprazole (PriLOSEC) [address] capsule Take 20 mg by mouth daily. [DISCONTINUED] traMADoL (ULTRAM) 50 mg tablet TAKE 1-2 TABLETS (50-100MG) BY MOUTH EVERY 6 HOURS ASNEEDED FOR PAIN No current facility-administered medications on file prior to visit. OBJECTIVE Vitals: 02/15/23 1353 BP: 121/87 Pulse: 87 Temp: 36.3 ??C PainSc: Ineligible PHYSICAL EXAM Vitals and nursing note reviewed. Constitutional Appearance: Normal appearance. HENT Right Ear: Tympanic membrane, ear canal and external ear normal. Left Ear: Tympanic membrane, ear canal and external ear normal. Nose: Nose normal. Mouth/Throat: Mouth: Mucous membranes are moist. Pharynx: Oropharynx is clear. No oropharyngeal exudate or posterior oropharyngeal erythema. Eyes Conjunctiva/sclera: Conjunctivae normal. Cardiovascular Rate and Rhythm: Normal rate and regular rhythm. Heart sounds: Normal heart sounds. Pulmonary Effort: Pulmonary effort is normal. Breath sounds: Normal breath sounds. Abdominal Palpations: Abdomen is soft. Tenderness: There is abdominal tenderness (Bilateral lower quadrants epigastric pain also on palpation). There is no guarding or rebound. Skin Findings: No rash. Neurological Mental Status: She is alert. Motor: No weakness. Gait: Gait normal. Psychiatric Mood and Affect: Mood normal. Behavior: Behavior normal. Thought Content: Thought content normal. Judgment: Judgment normal. ASSESSMENT / PLAN Diagnosis Plan 1. Pain Epigastric CBC with Differential, Blood Basic Metabolic Panel lidocaine viscous 2 % 15 mL, alum-mag hydroxide-simeth 30 mL susp Discussed with the patient this is not presenting as acute abdomen as pain has been ongoing for thepast month. Patient has been having chronic pain has also been following up with her primary care provider regarding these symptoms with the patient reporting she last saw her primary 2 weeks ago. She is currently taking Nexium in the morning and at night. Despite taking the medication patient reports not getting relief. Did proceed today with labs including CBC and BMP which were unremarkable for acute findings. Patient wished to be called with results I did attempt to call patient with the results however there wasno answer. Did leave a voice message stating that I would message her in the portal regarding results. Patient was able to view her results via the portal online. Labs were seen by patient. Message reflected that labs were normal. Patient was given GI cocktail today during visit to help calm down symptoms of reflux/heartburn. Had discussed with the patient during visit recommendation is to follow up with the primary care provider she has been for further evaluation and management of ongoing epigastric discomfort and reflux symptoms. Patient states understanding of plan. Electronically signed by: Lela Aguiar P.A.-C. 02/15/23 6:16 PM MACHINE CLOTHING MAN INE CLOTHING MAN documented in this encounter Plan of Treatment Not on file documented as of this encounter Procedures Procedure Name Priority Date/Time Associated Diagnosis Comments CBC WITH DIFFERENTIAL, B STAT 02/15/2023 2:35 PM MACHINE CLOTHING MAN Pain Epigastric BASIC METABOLIC PANEL, S/P STAT 02/15/2023 2:35 PM MACHINE CLOTHING MAN Pain Epigastric documented in this encounter Results * Basic Metabolic Panel (02/15/2023 2:35 PM MACHINE CLOTHING MAN) Potassium, P 4.1 3.6 - 5.2 mmol/L 02/15/2023 3:05 PM MACHINE CLOTHING MAN NPRG Sodium, P 139 135 - 145 mmol/L 02/15/2023 3:05 PM MACHINE CLOTHING MAN NPRG Chloride, P 105 98 - 107 mmol/L 02/15/2023 3:05 PM MACHINE CLOTHING MAN NPRG Bicarbonate, P 25 22 - 29 mmol/L 02/15/2023 3:05 PM MACHINE CLOTHING MAN NPRG Anion Gap, P 9 7 - 15 02/15/2023 3:05 PM MACHINE CLOTHING MAN NPRG BUN (Blood Urea Nitrogen), P 10 6 - 21 mg/dL 02/15/2023 3:05 PM MACHINE CLOTHING MAN NPRG Creatinine 0.82 0.59 - 1.04 mg/dL 02/15/2023 3:05 PM MACHINE CLOTHING MAN NPRG Estimated GFR (eGFR) >90 >=60 mL/min/BSA 02/15/2023 3:05 PM MACHINE CLOTHING MAN NPRG Comment: Estimated GFR calculated using the 2020 CKD_EPI creatinine equation. Calcium, Total, P 8.9 8.6 - 10.0 mg/dL 02/15/2023 3:05 PM MACHINE CLOTHING MAN NPRG Glucose, P 85 70 - 140 mg/dL 02/15/2023 3:05 PM MACHINE CLOTHING MAN NPRG Blood (Blood, Venous) 02/15/2023 2:35 PM MACHINE CLOTHING MAN 02/15/2023 2:39 PM MACHINE CLOTHING MAN Lela Aguiar P.A.-C. LAB BLOOD ADD-ON [facility] [address] [place] [address], [facility] NPRG [facility] [address] [place] [address] * CBC with Differential, Blood (02/15/2023 2:35 PM MACHINE CLOTHING MAN) Pathologist [facility] Hemoglobin 12.5 11.6 - 15.0 g/dL 02/15/2023 2:48 PM MACHINE CLOTHING MAN NPRG Hematocrit 39.2 35.5 - 44.9 % 02/15/2023 2:48 PM MACHINE CLOTHING MAN NPRG Erythrocytes 4.56 3.92 - 5.13 x10(12)/L 02/15/2023 2:48 PM MACHINE CLOTHING MAN NPRG MCV 86.0 78.2 - 97.9 fL 02/15/2023 2:48 PM MACHINE CLOTHING MAN NPRG RBC Distrib Width 14.9 12.2 - 16.1 % 02/15/2023 2:48 PM MACHINE CLOTHING MAN NPRG Platelet Count 285 157 - 371 x10(9)/L 02/15/2023 2:48 PM MACHINE CLOTHING MAN NPRG Leukocytes 8.8 3.4 - 9.6 x10(9)/L 02/15/2023 2:48 PM MACHINE CLOTHING MAN NPRG Neutrophils 5.53 1.56 - 6.45 x10(9)/L 02/15/2023 2:48 PM MACHINE CLOTHING MAN NPRG Lymphocytes 2.50 0.95 - 3.07 x10(9)/L 02/15/2023 2:48 PM MACHINE CLOTHING MAN NPRG Monocytes 0.53 0.26 - 0.81 x10(9)/L 02/15/2023 2:48 PM MACHINE CLOTHING MAN NPRG Eosinophils 0.19 0.03 - 0.48 x10(9)/L 02/15/2023 2:48 PM MACHINE CLOTHING MAN NPRG Basophils 0.03 0.01 - 0.08 x10(9)/L 02/15/2023 2:48 PM MACHINE CLOTHING MAN NPRG Blood (Blood, Venous) 02/15/2023 2:35 PM MACHINE CLOTHING MAN 02/15/2023 2:39 PM MACHINE CLOTHING MAN Lela Aguiar P.A.-C. LAB BLOOD ADD-ON [facility] [address] [place] [address], [facility] NPRG [facility] [address] [place] [address] documented in this encounter Visit Diagnoses Diagnosis Pain Epigastric- Primary documented in this encounter Administered Medications Inactive Administered Medications - up to 3 most recent administrations Medication Order MAR Action Action Date Dose Rate Site lidocaine viscous 2 % 15 mL, alum-mag hydroxide-simeth 30 mL susp 45 mL, oral, Once, On 02/15/23 at 1445, For 1 dose, Mix ingredients prior to administration Given 02/15/2023 2:42 PM MACHINE CLOTHING MAN 45 mL Audra th documented in this encounter Additional Health Concerns Assessment Noted Time PHQ-9 Depression Total Score: 3 04/23/19 22 8:30 AM MACHINE CLOTHING MAN documented as of this encounter Care Teams Beamer Hand Relationship Specialty Start Date End Date Elsewhere, Pcp PCP - General Internal Medicine 01/07/22 documented as of this encounter
--- OUTSIDE RECORDS SUMMARY | 2023-04-06 19:24 | XMS_ITS | Encounter Summary ---
Author Name Unknown Organization [facility] Address [address] [place] [address] Care Team Providers Care Perennial House Manager Name Role Phone Elsewhere, Pcp Primary Care Provider Unavailabl e Reason for Referral * Outpatient (Routine) - Authorized Specialty Diagnoses / Procedures Referred By Tania beckett Referred To Contact Emergency Medicine Diagnoses Pain Left Lower Quadrant Pain Left Upper Quadrant Ronal Henderson M.D. [facility] [place] [address] [facility] Region Referral ID Status Reason Start Date Expiration Date V isits Requested Visits Authorized [id number] Authorized 03/08/2023 03/07/2026 1 1 Scheduling Instructions Patient will likely require EGD ER AUTOMOTIVE GLASS TECHNICIAN * Outpatient (Routine) - Closed Specialty Diagnoses / Procedures Referred By Tania beckett Referred To Contact Diagnoses Pain Left Lower Quadrant Procedures [place] Esophagram Single Contrast Ronal Henderson M.D. [address] [place] [address] [facility] Region Referral ID Status Reason Start Date Expiration Date Visits Re quested Visits Authorized [id number] Closed 03/08/2023 03/07/2024 1 1 ER AUTOMOTIVE GLASS TECHNICIAN Reason for Visit * Reason Comments Abdominal Pain Abd and epigastric p ain for several months. Has appt with GI in a few months. Today has worsening pain and nausea. Encounter Details Date Type Department Care Team (Late st Contact Info) Description 03/08/2023 1:52 PM MASTER AUTOMOTIVE GLASS TECHNICIAN - 03/08/2023 4:01 PM MASTER AUTOMOTIVE GLASS TECHNICIAN Emergency [facility] Emergency Department [address] [place] [address] Ronal Henderson M.D. [address] [place] [address] Pain Left Lower Quadrant (Primary Dx); Pain [...] often do you attend chur ch or taoist services? 1 to 4 times per year 04/03/2022 Do you belong to any clubs o r organizations such as taoism groups, unions, fraternal or athletic groups, or [...] Answer Date Recorded PHQ-2 Score 0 12/10/2021 [facility] - Occupational Stress Questionnaire Answer Date [...] Sign Reading Time Taken Comments Blood Pressure 128/112 03/08/2023 3:45 PM MASTER AUTOMOTIVE GLASS TECHNICIAN Pulse 79 03/08/2023 3:45 PM MASTER AUTOMOTIVE GLASS TECHNICIAN Temperature 36.6 ??C (97.9 ??F) 03/08/2023 1:51 PM CS T Respiratory Rate 20 03/08/2023 1:51 PM MASTER AUTOMOTIVE GLASS TECHNICIAN Oxygen Saturation 99% 03/08/2023 3:45 PM MASTER AUTOMOTIVE GLASS TECHNICIAN Inhaled Oxygen Concentration - - Weight 106 kg (233 lb 11 oz) 03/08/2023 1:51 PM MASTER AUTOMOTIVE GLASS TECHNICIAN Height - - Body Mass Index 37.72 08/30/2022 9:01 PM CDT documented in this encounter Discharge Instructions * Discharge Instructions* Ronal Henderson M.D. - 03/08/2023 3:38 PM MASTER AUTOMOTIVE GLASS TECHNICIAN I have requested upper GI fluoroscopy and very prompt GI follow up. In the interim please try Bentryl for symptom control. ER AUTOMOTIVE GLASS TECHNICIAN * Attachments The following attachments cannot be sent through Care Everywhere. * Abdominal Pain Adult [id number] (Dominican) documented in this encounter Medications at Time of Discharge Medication Sig Dispensed Refills Start Date End Date acetaminophen (TYLENOL) 500 mg capsule Take 1,000 mg by mouth every 6 (six) hours as needed for pain. 0 ALPRAZolam (XANAX) 0.5 mg tablet Take 1 tablet by mouth 2 (two) times a day as needed. 0 celecoxib (CeleBREX) 200 mg capsule Take 1 [...] nostril daily. 0 gabapentin (NEURONTIN) 300 mg capsuleIndications:F ibromyalgia Take 1 capsule (300 mg total) by mouth 3 (three) times a day. 90 capsule 1 07/10/2021 hydrOXYzine (ATARAX) 25 mg tabletIndications:An xiety TAKE 1 TABLET (25 MG TOTAL) BY [...] 10 days. 40 tablet 0 03/08/2023 03/18/2023 documented as of this encounter ED Notes * Ronal Henderson M.D. - 03/08/2023 2:27 PM CST SUBJECTIVE CHIEF COMPLAINT/REASON FOR VISIT Abdominal Pain (Abd and epigastric pain for several months. Has appt with GI in a few months. Todayhas worsening pain and nausea. ) HISTORY OF PRESENT ILLNESS The patient presents with chronic recurrent left-sided abdominal pain. She does report very thorough workup from outside [facility] facility which includes 9 CT scans, ultrasound, labs and colonoscopy.She states that last evening she did have some dysphagia and endorses difficulty swallowing but hasno current food bolus. Patient denies hematuria dysuria or frequency, she has no melena hematochezia. History provided by: Patient REVIEW OF SYSTEMS Constitutional: Negative. Negative for fever. HENT: Negative. Eyes: Negative. Respiratory: Negative. Cardiovascular: Negative. Gastrointestinal: Positive for abdominal pain. Genitourinary: Negative. Musculoskeletal: Negative. Skin: Negative. Neurological: Negative. Psychiatric/Behavioral: Negative. OBJECTIVE Initial Vitals [03/08/23 1351] Temperature 36.6 ??C Pulse Rate 98 Heart Rate Resp Rate 20 Blood Pressure 124/86 SpO2 99 % Pain Score 5 - Moderate pain PHYSICAL EXAMINATION Constitutional: Nursing note and vitals reviewed. No distress. HENT: Head: Normocephalic and atraumatic. Nose: Nose normal. Mouth/Throat: Mucous membranes are moist. Eyes: Conjunctivae and EOM are normal. Neck: Neck supple. Cardiovascular: Normal rate and regular rhythm. Pulses are strong and palpable. Capillary refill: takes less than 3 seconds Pulmonary/Chest: Effort normal. No tachypnea. No respiratory distress. Expiration is no prolonged expiration. Air movement is not decreased. She exhibits no retraction. Abdominal: exhibits no distension. Left-sided abdominal pain Musculoskeletal: General: Normal range of motion. Cervical back: Neck supple. Neurological: Alert and oriented to person, place, and time. She is not disoriented. Skin: Skin is warm and dry. Psychiatric: She has a normal mood and affect. Behavior is normal. Judgment and thought content normal. ASSESSMENT/PLAN Assessment and Plan I had a lengthy discussion with the patient regarding her current symptoms and chronic recurrent nature of the symptoms. Have ordered an outpatient esophagram after consultation with radiology. This may be done on a nonemergent basis. She does endorse some difficulty swallowing and does have history of hiatal hernia. This will help rule out stricture. I have requested prompt GI follow-up. In the interim she may try Bentyl as needed for symptom control. Further consideration may be taken for H pylori testing however medication adjustments may need to be made as she is on antacid.. DIFFERENTIAL DIAGNOSES GERD, reflux, H pylori, esophagitis. PROBLEMS ADDRESSED THIS VISIT Follow-up plan, return precautions, home care, new medication use. I reviewed the following external records: prior outpatient labs, primary care records, office records and prior outpatient radiology tests. Final Diagnoses: as of 03/09/23 0723 Pain Left Lower Quadrant Pain Left Upper Quadrant Abdominal Pain Ronal Henderson M.D. 03/09/23 0723 ER AUTOMOTIVE GLASS TECHNICIAN documented in this encounter Plan of Treatment Scheduled Referrals Name Type Priority Associated Diagnoses Order Schedule POST ED VISIT Gastroenterology and Hepatology Outpatient Referral Routine Pain Left Lower Quadrant Pain Left Upper Quadrant Expected: 03/08/2023 (Approximate), Expires: 06/06/2024 documented as of this encounter Procedures Procedure Name Priority Date/Time Associated Diagnosis Comments CBC WITH DIFFERENTIAL, B STAT 03/08/2023 2:50 PM MASTER AUTOMOTIVE GLASS TECHNICIAN LIPASE, S/P STAT 03/08/2023 2:50 PM MASTER AUTOMOTIVE GLASS TECHNICIAN COMPREHENSIVE METABOLIC PANEL, S/P STAT 03/08/2023 2:50 PM MASTER AUTOMOTIVE GLASS TECHNICIAN URINALYSIS WITH MICROSCOPIC STAT 03/08/2023 2:43 PM MASTER AUTOMOTIVE GLASS TECHNICIAN documented in this encounter Results * FL Esophagram Single Contrast (03/25/2023 10:08 AM MASTER AUTOMOTIVE GLASS TECHNICIAN) Anatomical Region Laterality Modality Gastro Intestinal, Abdominal RST LOS, Abdominal ARZ LOS, Abdominal FLA LOS N/A Digital Radiography Impressions 03/25/2023 10:13 AM MASTER AUTOMOTIVE GLASS TECHNICIAN Small sliding-type hiatal hernia. No reflux observed. Narrative 03/25/2023 10:13 AM MASTER AUTOMOTIVE GLASS TECHNICIAN EXAM: FL ESOPHAGRAM SINGLE CONTRAST FINDINGS: Normal [...] Small sliding-type hiatal hernia. No reflux observed. oRnal Henderson M.D. IMG FLUOROSCOPY RI OCEDURES * Lipase (03/08/2023 2:50 PM MASTER AUTOMOTIVE GLASS TECHNICIAN) Lipase, P 52 13 - 60 U/L 03/08/2023 3: 19 PM MASTER AUTOMOTIVE GLASS TECHNICIAN [facility] Blood (Blood, Venous) 03/08/2023 2:50 PM MASTER AUTOMOTIVE GLASS TECHNICIAN 03/08/2023 2:55 PM MASTER AUTOMOTIVE GLASS TECHNICIAN Ronal Henderson M.D. LAB BLOOD ADD-ON [facility] [address] [place] [address], [facility] [place] [address] [place] [id number] * (ABNORMAL) CBC with Differential, Blood (03/08/2023 2:50 PM MASTER AUTOMOTIVE GLASS TECHNICIAN) [facility] Hemoglobin 14.8 11.6 - 15.0 g/dL 03/08/2023 3:01 PM MASTER AUTOMOTIVE GLASS TECHNICIAN [facility] Hematocrit 44.7 35.5 - 44.9 % 03/08/2023 3:01 PM MASTER AUTOMOTIVE GLASS TECHNICIAN [facility] Erythrocytes 5.29(H) 3.92 - 5.13 x10(12)/L 03/08/2023 3:01 PM MASTER AUTOMOTIVE GLASS TECHNICIAN [facility] MCV 84.5 78.2 - 97.9 fL 03/08/2023 3:01 PM MASTER AUTOMOTIVE GLASS TECHNICIAN [facility] RBC Distrib Width 13.6 12.2 - 16.1 % 03/08/2023 3:01 PM MASTER AUTOMOTIVE GLASS TECHNICIAN [facility] Platelet Count 303 157 - 371 x10(9)/L 03/08/2023 3:01 PM MASTER AUTOMOTIVE GLASS TECHNICIAN [facility] Leukocytes 8.8 3.4 - 9.6 x10(9)/L 03/08/2023 3:01 PM MASTER AUTOMOTIVE GLASS TECHNICIAN [facility] Neutrophils 5.44 1.56 - 6.45 x10(9)/L 03/08/2023 3:00 PM MASTER AUTOMOTIVE GLASS TECHNICIAN [facility] Lymphocytes 2.64 0.95 - 3.07 x10(9)/L 03/08/2023 3:01 PM MASTER AUTOMOTIVE GLASS TECHNICIAN [facility] Monocytes 0.54 0.26 - 0.81 x10(9)/L 03/08/2023 3:01 PM MASTER AUTOMOTIVE GLASS TECHNICIAN [facility] Eosinophils 0.16 0.03 - 0.48 x10(9)/L 03/08/2023 3:01 PM MASTER AUTOMOTIVE GLASS TECHNICIAN [facility] Basophils 0.05 0.01 - 0.08 x10(9)/L 03/08/2023 3:01 PM MASTER AUTOMOTIVE GLASS TECHNICIAN [facility] Blood (Blood, Venous) 03/08/2023 2:50 PM MASTER AUTOMOTIVE GLASS TECHNICIAN 03/08/2023 2:55 PM MASTER AUTOMOTIVE GLASS TECHNICIAN Ronal Henderson M.D. LAB BLOOD ADD-ON [facility] [address] [place] [address], [facility] [place] [address] [place] [address] * Comprehensive Metabolic Panel (03/08/2023 2:50 PM MASTER AUTOMOTIVE GLASS TECHNICIAN) [facility] Potassium, P 3.7 3.6 - 5.2 mmol/L 03/08/2023 3:19 PM MASTER AUTOMOTIVE GLASS TECHNICIAN [facility] Sodium, P 138 135 - 145 mmol/L 03/08/2023 3:19 PM MASTER AUTOMOTIVE GLASS TECHNICIAN [facility] Chloride, P 102 98 - 107 mmol/L 03/08/2023 3:19 PM MASTER AUTOMOTIVE GLASS TECHNICIAN [facility] Bicarbonate, P 23 22 - 29 mmol/L 03/08/2023 3:19 PM MASTER AUTOMOTIVE GLASS TECHNICIAN [facility] Anion Gap, P 13 7 - 15 03/08/2023 3:19 PM MASTER AUTOMOTIVE GLASS TECHNICIAN [facility] BUN (Blood Urea Nitrogen), P 14 6 - 21 mg/dL 03/08/2023 3:19 PM MASTER AUTOMOTIVE GLASS TECHNICIAN [facility] Creatinine 0.92 0.59 - 1.04 mg/dL 03/08/2023 3:19 PM MASTER AUTOMOTIVE GLASS TECHNICIAN [facility] Estimated GFR (eGFR) 80 >=60 mL/min/BS A 03/08/2023 3:19 PM MASTER AUTOMOTIVE GLASS TECHNICIAN [facility] Comment: Estimated GFR calculated using the 2020 CKD_EPI creatinine equation. Calcium, Total, P 10.0 8.6 - 10.0 mg/dL 03/08/2023 3:19 PM MASTER AUTOMOTIVE GLASS TECHNICIAN [facility] Glucose, P 89 70 - 140 mg/dL 03/08/2023 3:19 PM MASTER AUTOMOTIVE GLASS TECHNICIAN [facility] Protein, Total, P 7.2 6.3 - 7.9 g/dL 03/08/2023 3:19 PM MASTER AUTOMOTIVE GLASS TECHNICIAN [facility] Albumin, P 4.4 3.5 - 5.0 g/dL 03/08/2023 3:19 PM MASTER AUTOMOTIVE GLASS TECHNICIAN [facility] Aspartate Aminotransferase (AST), P 16 8 - 43 U/L 03/08/2023 3:19 PM MASTER AUTOMOTIVE GLASS TECHNICIAN [facility] Alkaline Phosphatase, P 76 35 - 104 U/L 03/08/2023 3:19 PM MASTER AUTOMOTIVE GLASS TECHNICIAN [facility] Alanine Aminotransferase (ALT), P 10 7 - 45 U/L 03/08/2023 3:19 PM MASTER AUTOMOTIVE GLASS TECHNICIAN [facility] Bilirubin, Total, P 0.4 0.0 - 1.2 mg/dL 03/08/2023 3:19 PM MASTER AUTOMOTIVE GLASS TECHNICIAN [facility] Blood (Blood, Venous) 03/08/2023 2:50 PM MASTER AUTOMOTIVE GLASS TECHNICIAN 03/08/2023 2:55 PM MASTER AUTOMOTIVE GLASS TECHNICIAN Ronal Henderson M.D. LAB BLOOD ADD-ON [facility] [address] [place] [address], [facility] [place] [address] [place] [address] * (ABNORMAL) Urinalysis with Microscopic: Urine, Midstream (03/08/2023 2:43 PM MASTER AUTOMOTIVE GLASS TECHNICIAN) Source Urine, Urine, Midstream 03/08/2023 3:00 PM MASTER AUTOMOTIVE GLASS TECHNICIAN [facility] Clarity Clear Clear 03/08/2023 3:00 PM MASTER AUTOMOTIVE GLASS TECHNICIAN [facility] Color Yellow 03/08/2023 3:00 PM MASTER AUTOMOTIVE GLASS TECHNICIAN [facility] Comment: ----REFERENCE VALUE---- Colorless Yellow Chasity Blood Negative Negative 03/08/2023 3:00 PM MASTER AUTOMOTIVE GLASS TECHNICIAN [facility] Nitrite Negative Negative 03/08/2023 3:00 PM MASTER AUTOMOTIVE GLASS TECHNICIAN [facility] Leukocyte Esterase Trace(A) Negative 03/08/2023 3:00 PM MASTER AUTOMOTIVE GLASS TECHNICIAN [facility] Protein Negative mg/dL 03/08/2023 3:00 PM MASTER AUTOMOTIVE GLASS TECHNICIAN [facility] Comment: ----REFERENCE VALUE---- Negative Trace Glucose Negative Negative mg/dL 03/08/2023 3:00 PM MASTER AUTOMOTIVE GLASS TECHNICIAN [facility] Ketone Negative Negative mg/dL 03/08/2023 3:00 PM MASTER AUTOMOTIVE GLASS TECHNICIAN [facility] Bilirubin Negative Negative 03/08/2023 3:00 PM MASTER AUTOMOTIVE GLASS TECHNICIAN [facility] pH 8.5(A) 5.0 - 8.0 03/08/2023 3:00 PM MASTER AUTOMOTIVE GLASS TECHNICIAN [facility] Specific [place] 1.007 1.001 - 1.035 03/08/2023 3:00 PM MASTER AUTOMOTIVE GLASS TECHNICIAN [facility] Urobilinogen 0.2 0.2 - 1.0 mg/dL 03/08/2023 3:00 PM MASTER AUTOMOTIVE GLASS TECHNICIAN [facility] White Blood Cells Occ-3 /hpf 03/08/2023 3:03 PM MASTER AUTOMOTIVE GLASS TECHNICIAN [facility] Comment: ----REFERENCE VALUE---- Males: 0-3 Females: 0-10 Unknown: 0-10 Red Blood Cells None Seen 0 - 2 /hpf 3:03 PM MASTER AUTOMOTIVE GLASS TECHNICIAN [facility] Squamous Cells Occ-3 /hpf 03/08/2023 3:03 PM MASTER AUTOMOTIVE GLASS TECHNICIAN [facility] Urine (Urine, Midstream) 03/08/2023 2:43 PM MASTER AUTOMOTIVE GLASS TECHNICIAN 03/08/2023 2:56 PM MASTER AUTOMOTIVE GLASS TECHNICIAN Ronal Henderson M.D. LAB URINE ORDERABL ES [facility] [address] [place] [address], [facility] [place] [address] [place] [address] documented in this encounter Visit Diagnoses Diagnosis Pain Left Lower Quadrant- Primary Pain Left Upper Quadrant Abdominal Pain Pain Left Lower Quadrant documented in this encounter Administered Medications Inactive Administered Medications - up to 3 most recent administrations Medication Order MAR Action Action Date Dose Rate Site diphenhydrAMINE injection 25 mg (BENADRYL) 25 mg, intravenous, Once, On Wed03/08/23 at 1428, For 1 dose Given 03/08/2023 2:50 PM MASTER AUTOMOTIVE GLASS TECHNICIAN 25 mg droPERidoL injection 1.25 mg (INAPSINE) 1.25 mg, intravenous, Once, On Wed03/08/23 at 1428, For 1 dose Given 03/08/2023 2:50 PM MASTER AUTOMOTIVE GLASS TECHNICIAN 1.25 mg ketorolac injection 15 mg (TORADOL) 15 mg, intravenous, Once, On Wed03/08/23 at 1428, For 1 dose, Adult IV push rate: Over 15 seconds. Peds IV push rate: Over 1 minute. Doses > 15 mg IV/IM are discouraged due to lack of additional analgesic benefit. Given 03/08/2023 2:50 PM MASTER AUTOMOTIVE GLASS TECHNICIAN 15 mg sodium chloride 0.9 % injection 2-10 mL 2-10 mL, intravenous, As needed, line care, Starting on Wed03/08/23 at 1427 documented in this encounter Active and Recently Administered Medications Times are shown in MASTER AUTOMOTIVE GLASS TECHNICIAN. Scheduled Medication Order 03/06/2023 03/07/2023 03/08/2023 diphenhydrAMINE injection 25 mg (BENADRYL) (COMPLETED) 25 mg, intravenous, Once, On Wed03/08/23 at 1428, For 1 dose 1450 (Given - Provid er: Vicki Akins R.N.) droPERidoL injection 1.25 mg (INAPSINE) (COMPLETED) 1.25 mg, intravenous, Once, On Wed03/08/23 at 1428, For 1 dose 1450 (Given - Provid er: Vicki Akins R.N.) ketorolac injection 15 mg (TORADOL) (COMPLETED) 15 mg, intravenous, Once, On Wed03/08/23 at 1428, For 1 dose, Adult IV push rate: Over 15 seconds. Peds IV push rate: Over 1 minute. Doses > 15 mg IV/IM are discouraged due to lack of additional analgesic benefit. 1450 (Given - Provid er: Vicki Akins R.N.) PRN Medication Order 03/06/2023 03/07/2023 03/08/2023 sodium chloride 0.9 % injection 2-10 mL(Linked Group 1) 2-10 mL, intravenous, As needed, line care, Starting on Wed03/08/23 at 1427 Linked Groups Order Group 1: Place peripheral IV: No upper extremity site restrictions (COMPLETED) Upper extremity site restriction: No upper extremity site restrictions, Quantity of PIVs requested: One, STAT, Once, On Wed03/08/23 at 1428, For 1 occurrence And sodium chloride 0.9 % injection 2-10 mLJump to med 2-10 mL, intravenous, As needed, line care, Starting on Wed03/08/23 at 1427 documented in this encounter Additional Health Concerns Assessment Noted Time PHQ-9 Depression Total Score: 3 04/23/19 22 8:30 AM MASTER AUTOMOTIVE GLASS TECHNICIAN documented as of this encounter Care Teams Perennial House Manager Relationship Specialty Start Date End Date Elsewhere, Pcp PCP - General Internal Medicine 01/07/22 documented as of this encounter
--- OUTSIDE RECORDS SUMMARY | 2023-04-06 19:24 | XMS_ITS | Encounter Summary ---
Author Name Unknown Organization [facility] Address [address] [place] [address] Care Team Providers Care Trust Vault Custodian Name Role Phone Elsewhere, Pcp Primary Care Provider Unavailabl e Encounter Details Date Type Department Care Team (Latest Contact Info) Description 03/02/2023 Clinical Communication Division of Gastroenterology in [place], [place] [address] [place] [address] Thaddeus Cosme M.D., Ph.D. [address] [place] [address] Social History Tobacco Use Types Packs/Day Years [...] often do you attend chur ch or hinduism services? 1 to 4 times per year 04/03/2022 Do you belong to any clubs o r organizations such as hinduism groups, unions, fraternal or athletic groups, or [...] Answer Date Recorded PHQ-2 Score 0 12/10/2021 [facility] - Occupational Stress [...] place to sleep or slept in a prison (including now)? No 04/03/2022 Depression Answer Date [...] filedocumented in this encounter Additional Health Concerns Infection Onset Date Last Indicated Resolved Time COVID19 Pending 03/10/2023 03/10/2023 03/10/2023 9 :12 AM MANAGER TRUCK Assessment Noted Time PHQ-9 Depression Total Score: 3 04/23/19 22 8:30 AM MANAGER TRUCK documented as of this encounter Care Teams [employer] Custodian Relationship Specialty Start Date End Date Elsewhere, Pcp PCP - General Internal Medicine 01/07/22 documented as of this encounter
--- OUTSIDE RECORDS SUMMARY | 2023-04-06 19:24 | XMS_ITS | Encounter Summary ---
Author Name Unknown Organization [facility] Address [address] [place] [address] Care Team Providers Care Gate Technician Name Role Phone Elsewhere, Pcp Primary Care Provider Unavailabl e Reason for Visit * Reason Comments Flank Pain Pt comes with right lower bad pain, had recent UTI treated with cipro. Also states she had sudden onset left mid backpain that took her breath away. Encounter Details Date Type Department Care Team (Late st Contact Info) Description 08/22/2022 10:27 PM CDT - 08/23/2022 1:34 AM CDT Emergency [facility] Emergency Department [address] [place] [address] Huong Gomez APRN, C.N.P. [address] [place] [address] Pain Flank (Primary Dx); Abdominal Pain Discharge Disposition: Home or Self [...] How often do you attend chur or spiritism services? 1 to 4 times per year 04/03/2022 Do you belong to any clubs o r organizations such as protestant groups, unions, fraternal or athletic groups, or [...] Answer Date Recorded PHQ-2 Score 0 12/10/2021 [facility] [place] [facility] - Occupational Stress [...] place to sleep or slept in a longterm (including now)? No 04/03/2022 Depression Answer Date [...] Sign Reading Time Taken Comments Blood Pressure 139/87 08/23/2022 12:30 AM CDT Pulse 69 08/23/2022 1:30 AM CDT Temperature 36.6 ??C (97.9 ??F) 08/22/2022 7:56 PM CD T Respiratory Rate 20 08/23/2022 1:34 AM CDT Oxygen Saturation 98% 08/23/2022 1:30 AM CDT Inhaled Oxygen Concentration - - Weight 104 kg (229 lb 4.5 oz) 08/22/2022 7:55 PM CDT Height - - Body Mass Index 37.01 06/09/2022 4:13 PM CDT documented in this encounter Discharge Instructions * Discharge Instructions* Huong Gomez APRN, C.N.P., D.N.P. - 08/23/2022 1:09 AM CDT Please follow-up with your primary care provider to discuss her ongoing pain. Fortunately your workup in the emergency department has been reassuring. Your CT scan does not reveal any acute abnormality. Your blood work is without significant abnormalities. If new or worsening symptoms develop please seek re-evaluation. documented in this encounter Medications at Time [...] by mouth daily. 30 tablet 0 01/30/2022 betamethasone dipropionate (DIPROLENE) 0.05 % ointment APPLY TOPICALLY TO HANDS TWICE A DAY FOR 2 WEEKS THEN 2 WEEKS OFF 0 03/03/2022 02/15/2023 eflornithine (Vaniqa) 13.9 % cream Vaniqa 13.9 % topical cream 0 08/30/2022 fluconazole (DIFLUCAN) 150 mg tablet TAKE 1 TABLET BY ORAL ROUTE ONCE. MAY REPEAT DOSE IN 72HRS IF STILL SYMPTOMATIC. MAX 3 DOSES. 0 08/21/2022 02/15/2023 metFORMIN (GLUCOPHAGE) 500 mg tablet TAKE 1 [...] as of this encounter ED Notes * Huong Gomez APRN, C.N.P., D.N.P. - 08/22/2022 11:13 PM CDT SUBJECTIVE CHIEF COMPLAINT/REASON FOR VISIT Flank Pain (Pt comes with right lower bad pain, had recent UTI treated with cipro. Also states she had sudden onset left mid backpain that took her breath away. ) HISTORY OF PRESENT ILLNESS This is a 41-year-old female patient who presents to the emergency department for evaluation of left-sided flank pain and right lower quadrant abdominal pain. Patient states she has been experiencingthese symptoms for the past couple of weeks. States that her left-sided flank pain is intermittent.Sometimes it worsens with movement. She describes it as a sharp stabbing pain. She does experience associated nausea. Denies vomiting. Denies fever or chills. Her last bowel movement was today and itwas normal for her. Patient had recent urinary tract infection and she is wondering if this might be related. States she was treated with ciprofloxacin. She denies urinary symptoms today. Additionally, patient reports intermittently experiencing right lower quadrant abdominal pain for the past couple of weeks as well. States that when she 1st developed this pain it was when she was diagnosed withurinary tract infection. She has no history of abdominal surgery other than /tubal ligation. REVIEW OF SYSTEMS Constitutional: Negative for chills and fever. HENT: Negative for congestion and sore throat. Respiratory: Negative for cough and shortness of breath. Cardiovascular: Negative for chest pain. Gastrointestinal: Positive for abdominal pain and nausea. Negative for constipation, diarrhea and vomiting. Genitourinary: Positive for flank pain and frequency. Negative for dysuria and hematuria. Musculoskeletal: Negative for myalgias. Skin: Negative for color change and rash. Neurological: Negative for light-headedness and headaches. Psychiatric/Behavioral: Negative for confusion. OBJECTIVE Initial Vitals [08/22/221955] Temperature 36.6 ??C Pulse Rate 84 Heart Rate Resp Rate 20 Blood Pressure (!) 146/94 SpO2 100 % Pain Score PHYSICAL EXAMINATION Constitutional: Nursing note and vitals reviewed. No distress. Cardiovascular: Normal rate and regular rhythm. Pulmonary/Chest: Effort normal and breath sounds normal. Abdominal: Soft. Bowel sounds are normal. There is abdominal tenderness in the right lower quadrantand left flank. There is no rebound and no guarding. Musculoskeletal: General: Normal range of motion. Neurological: Alert and oriented to person, place, and time. Skin: Skin is warm and dry. She is not diaphoretic. ASSESSMENT/PLAN IMPRESSION AND PLAN This is a 41-year-old female who presents to the emergency department for evaluation of left-sided flank pain, nausea, and right lower quadrant abdominal pain. Patient has reportedly been experiencing these symptoms intermittently for the past couple of weeks. She was recently diagnosed with urinary tract infection and she is worried it might be related to that. Triage vitals notable for mildly elevated blood pressure, but otherwise afebrile and stable. My examination is as noted above. Evaluation and management will include labs as well as imaging. Please follow ED course for specific diagnostic details. Diagnostic results reviewed with patient at bedside. Fortunately, patient's emergency department workup has been reassuring. The cause of her ongoing pain is unclear at this time. Will recommend close clinical follow-up with PCP for further evaluation and management. Encouraged patient to seek re-evaluation if new or worsening symptoms develop. Patient verbalized understanding and acceptance of this plan and denied further questions or concerns at this time. ED Course as of 08/23/22 0111 Sat Aug 22, 2022 2241 Urinalysis with Microscopic if Indicated(!): Source Urine, Urine, Midstream Clarity Clear Color, U Yellow Blood Trace(!) Nitrite, U Negative Leukocyte Esterase Negative Protein Urine Random Negative Glucose Negative Ketone Negative Bilirubin Negative pH 6.5 Specific Rowley 1.005 Urobilinogen 0.2 Not suspicious for infectious process [place] Aug 23, 2022 0107 Comprehensive Metabolic Panel(!): Potassium, P 3.5(!) Sodium, P 140 Chloride, P 104 Bicarbonate, P 23 Anion Gap, P 13 BUN (Blood Urea Nitrogen), P 12 Creatinine 0.91 Estimated GFR (eGFR) 82 Calcium, Total, P 9.4 Glucose, P 79 Protein, Total, P 7.0 Albumin, P 4.2 Aspartate Aminotransferase (AST), P 12 Alkaline Phosphatase, P 69 Alanine Aminotransferase (ALT), P 8 Bilirubin, Total, P 0.4 No significant electrolyte derangement or renal dysfunction. LFTs within normal limits. 0107 CBC with Differential, Blood(!): Hemoglobin 13.6 Hematocrit 41.3 Erythrocytes 4.79 MCV 86.2 RBC Distrib Width 12.8 Platelet Count 295 White Blood Cell Count 9.8(!) Neutrophils 5.35 Lymphocytes 3.67(!) Monocytes 0.61 Eosinophils 0.15 Basophils 0.05 No significant anemia or leukocytosis. 0107 Lipase: Lipase, P 26 Lipase within normal limits 0108 CT Abdomen Pelvis with IV Contrast IMPRESSION: Normal appendix. No acute abnormality in the abdomen or pelvis. Final Diagnoses: as of 08/23/22 0111 Pain Flank Abdominal Pain Huong Gomez APRN, C.N.P., D.N.P. 08/23/22 011 documented in this encounter Plan of Treatment Not on file documented as of this encounter Procedures Procedure Name Priority Date/Time Associated Diagnosis Comments CT ABDOMEN PELVIS WITH IV CONTRAST RAD - Semiurgent (Fast; most ED patients; some inpatients) 08/23/2022 12:44 AM CDT CBC WITH DIFFERENTIAL, B STAT 08/23/2022 12:25 AM CDT LIPASE, S/P STAT 08/23/2022 12:25 AM CDT COMPREHENSIVE METABOLIC PANEL, S/P STAT 08/23/2022 12:25 AM CDT URINALYSIS WITH MICROSCOPIC IF INDICATED, U STAT 08/22/2022 8:06 PM CDT HC URINALYSIS AUTO WO MICRO STAT 08/22/2022 8:06 PM CDT documented in this encounter Results * CT Abdomen Pelvis with IV Contrast (08/23/2022 12:44 AM CDT) Anatomical Region Laterality Modality Abdomen, Pelvis, Abdominal R ST LOS, Abdominal ARZ LOS, Abdominal FLA LOS N/A Computed Tomography 08/23/2022 12:4 3 AM CDT Impressions 08/23/2022 12:51 AM CDT Normal appendix. No acute abnormality in the abdomen or pelvis. Narrative 08/23/2022 12:51 AM CDT EXAM: CT ABDOMEN PELVIS WITH IV CONTRAST COMPARISON: 05/30/2022, 01/09/2022 FINDINGS: Lower chest: Scattered subsegmental atelectasis. Liver: Stable hepatic hemangiomas, the largest of which measures up to 6.2 x 4.8 cm. Gallbladder/bile ducts: No bile duct enlargement. Pancreas: No organized peripancreatic collection or acute inflammatory changes. Spleen: No suspicious lesion. Adrenal glands: Unremarkable. Kidneys, ureters, bladder: No hydronephrosis. GI tract, mesentery/peritoneum: No obstruction. Normal appendix. Moderate stool volume. Vasculature: No evidence of aortic aneurysm. ?? Lymph Nodes: No pathologically enlarged lymph nodes. Reproductive: Unremarkable. Bones/soft tissues: No abnormal soft tissue mass or acute fracture. Mild bilateral hip osteoarthrosis. Procedure Note Regis Pandya M.D. - 08/23/2022 EXAM: CT ABDOMEN PELVIS WITH IV CONTRAST COMPARISON: 05/30/2022, 01/09/2022 FINDINGS: Lower chest: Scattered subsegmental atelectasis. Liver: Stable hepatic hemangiomas, the largest of which measures up to 6.2x 4.8 cm. Gallbladder/bile ducts: No bile duct enlargement. Pancreas: No organized peripancreatic collection or acute inflammatorychanges. Spleen: No suspicious lesion. Adrenal glands: Unremarkable. Kidneys, ureters, bladder: No hydronephrosis. GI tract, mesentery/peritoneum: No obstruction. Normal appendix. Moderatestool volume. Vasculature: No evidence of aortic aneurysm. Lymph Nodes: No pathologically enlarged lymph nodes. Reproductive: Unremarkable. Bones/soft tissues: No abnormal soft tissue mass or acute fracture. Mildbilateral hip osteoarthrosis. IMPRESSION: Normal appendix. No acute abnormality in the abdomen or pelvis. Huong Gomez APRN, C.N.P. IMG CT PROCED URES * Lipase (08/23/2022 12:25 AM CDT) Lipase, P 26 13 - 60 U/L 08/23/2022 1: 02 AM CDT MKTO Blood (Blood, Venous) 08/23/2022 12:25 AM CDT 08/23/2022 12:37 AM CDT Huong Gomez APRN, C.N.P. LAB BLOOD ADD -ON [facility] [address] [place] [address], [place] MKTO [facility] in [place] [address] [place] [address] * (ABNORMAL) Comprehensive Metabolic Panel (08/23/2022 12:25 AM CDT) Potassium, P 3.5(L) 3.6 - 5.2 mmol/L 08/23/2022 1:02 AM CDT MKTO Sodium, P 140 135 - 145 mmol/L 08/23/2022 1:02 AM CDT MKTO Chloride, P 104 98 - 107 mmol/L 08/23/2022 1:02 AM CDT MKTO Bicarbonate, P 23 22 - 29 mmol/L 08/23/2022 1:02 AM CDT MKTO Anion Gap, P 13 7 - 15 08/23/2022 1:02 AM CDT MKTO BUN (Blood Urea Nitrogen), P 12 6 - 21 mg/dL 08/23/2022 1:02 AM CDT MKTO Creatinine 0.91 0.59 - 1.04 mg/dL 08/23/2022 1:02 AM CDT MKTO Estimated GFR (eGFR) 82 >=60 mL/min/BS A 08/23/2022 1:02 AM CDT MKTO Comment: Estimated GFR calculated using the 2020 CKD_EPI creatinine equation. Calcium, Total, P 9.4 8.6 - 10.0 mg/dL 08/23/2022 1:02 AM CDT MKTO Glucose, P 79 70 - 140 mg/dL 08/23/2022 1:02 AM CDT MKTO Protein, Total, P 7.0 6.3 - 7.9 g/dL 08/23/2022 1:02 AM CDT MKTO Albumin, P 4.2 3.5 - 5.0 g/dL 08/23/2022 1:02 AM CDT MKTO Aspartate Aminotransferase (AST), P 12 8 - 43 U/L 08/23/2022 1:02 AM CDT MKTO Alkaline Phosphatase, P 69 35 - 104 U/L 08/23/2022 1:02 AM CDT MKTO Alanine Aminotransferase (ALT), P 8 7 - 45 U/L 08/23/2022 1:02 AM CDT MKTO Bilirubin, Total, P 0.4 <=1.2 mg/dL 08/23/2022 1:02 AM CDT MKTO Blood (Blood, Venous) 08/23/2022 12:25 AM CDT 08/23/2022 12:37 AM CDT Huong Gomez APRN, C.N.P. LAB BLOOD ADD -ON [facility] [place] [address], [facility] MKTO [facility] [place] [address] [place] [address] * (ABNORMAL) CBC with Differential, Blood (08/23/2022 12:25 AM CDT) Hemoglobin 13.6 11.6 - 15.0 g/dL 08/23/2022 12:45 AM CDT MKTO Hematocrit 41.3 35.5 - 44.9 % 08/23/2022 12:45 AM CDT MKTO Erythrocytes 4.79 3.92 - 5.13 x10(12)/L 08/23/2022 12:45 AM CDT MKTO MCV 86.2 78.2 - 97.9 fL 08/23/2022 12:45 AM CDT MKTO RBC Distrib Width 12.8 12.2 - 16.1 % 08/23/2022 12:45 AM CDT MKTO Platelet Count 295 157 - 371 x10(9)/L 08/23/2022 12:45 AM CDT MKTO Leukocytes 9.8(H) 3.4 - 9.6 x10(9)/L 08/23/2022 12:45 AM CDT MKTO Neutrophils 5.35 1.56 - 6.45 x10(9)/L 08/23/2022 12:45 AM CDT MKTO Lymphocytes 3.67(H) 0.95 - 3.07 x10(9)/L 08/23/2022 12:45 AM CDT MKTO Monocytes 0.61 0.26 - 0.81 x10(9)/L 08/23/2022 12:45 AM CDT MKTO Eosinophils 0.15 0.03 - 0.48 x10(9)/L 08/23/2022 12:45 AM CDT MKTO Basophils 0.05 0.01 - 0.08 x10(9)/L 08/23/2022 12:45 AM CDT MKTO Blood (Blood, Venous) 08/23/2022 12:25 AM CDT 08/23/2022 12:37 AM CDT Huong Gomez APRN, C.N.P. LAB BLOOD ADD -ON Performing Organization Address City/[facility]/ZIP Co de Phone Number [facility] [address] [place] [address], [place] [address] * Microscopic Automated (08/22/2022 8:06 PM CDT) White Blood Cells None Seen /hpf 08/22/2022 8:18 PM CDT MKTO Comment: ----REFERENCE VALUE---- Males: 0-3 Females: 0-10 Unknown: 0-10 Red Blood Cells None Seen 0 - 2 /hpf 08/22/2022 8:18 PM CDT MKTO Squamous Cells Occ-3 /hpf 08/22/2022 8:18 PM CDT MKTO Urine 08/22/2022 8:06 PM CDT 08/22/2022 8:08 PM CDT Huong Gomez APRN, C.N.P. LAB URINE ORD ERABLES Performing Organization Address City/[facility]/ZIP Co de Phone Number [facility] [address] [place] [address], [place] [address] * (ABNORMAL) Urinalysis with Microscopic if Indicated (08/22/2022 8:06 PM CDT) Source Urine, Urine, Midstream 08/22/2022 8:15 PM CDT MKTO Clarity Clear Clear 08/22/2022 8:15 PM CDT MKTO Color Yellow 08/22/2022 8:15 PM CDT MKTO Comment: ----REFERENCE VALUE---- Colorless Yellow Chasity Blood Trace(A) Negative 08/22/2022 8:15 PM CDT MKTO Nitrite Negative Negative 08/22/2022 8:15 PM CDT MKTO Leukocyte Esterase Negative Negative 08/22/2022 8:15 PM CDT MKTO Protein Negative mg/dL 08/22/2022 8:15 PM CDT MKTO Comment: ----REFERENCE VALUE---- Negative Trace Glucose Negative Negative mg/dL 08/22/2022 8:15 PM CDT MKTO Ketone Negative Negative mg/dL 08/22/2022 8:15 PM CDT MKTO Bilirubin Negative Negative 08/22/2022 8:15 PM CDT MKTO pH 6.5 5.0 - 8.0 08/22/2022 8:15 PM CDT MKTO Specific Rowley 1.005 1.001 - 1.035 08/22/2022 8:15 PM CDT MKTO Urobilinogen 0.2 0.2 - 1.0 mg/dL 08/22/2022 8:15 PM CDT MKTO Urine (Urine, Midstream) 08/22/2022 8:06 PM CDT 08/22/2022 8:08 PM CDT Huong Gomez APRN C.N.P. LAB URINE ORD ERABLES [facility] [address] [place] [address], [facility] MKTO [facility] [place] [address] documented in this encounter Visit Diagnoses Diagnosis Pain Flank- Primary Abdominal Pain documented in this encounter Administered Medications Inactive Administered Medications - up to 3 most recent administrations Medication Order MAR Action Action Date Dose Rate Site iohexoL 350 mg iodine/mL solution 1-200 mL (OMNIPAQUE) 1-200 mL, intravenous, Once in imaging, contrast, for CT exam, Starting on 08/23/22 at 0045, For 1 dose, Dose per Radiant Medication Guidelines Given 08/23/2022 12:45 AM CDT 140 mL ketorolac injection 15 mg (TORADOL) 15 mg, intravenous, Once, On 08/22/22 at 2256, For 1 dose, Adult IV push rate: Over 15 seconds. Peds IV push rate: Over 1 minute. Doses > 15 mg IV/IM are discouraged due to lack of additional analgesic benefit. Given 08/23/2022 12:23 AM CDT 15 mg sodium chloride 0.9 % flush 100 mL 100 mL, intravenous, Once in imaging, line care, needed for CT, Starting on 08/23/22 at 0045, For 1 dose Given 08/23/2022 12:45 AM CDT 100 mL sodium chloride 0.9 % injection 10 mL 10 mL, intravenous, Once in imaging, line care, for CT exam, Starting on 08/23/22 at 0045, For 1 dose Given 08/23/2022 12:45 AM CDT 10 mL documented in this encounter Active and Recently Administered Medications Times are shown in CDT. Scheduled Medication Order 08/21/2022 08/22/2022 08/23/2022 ketorolac injection 15 mg (TORADOL) (COMPLETED) 15 mg, intravenous, Once, On 08/22/22 at 2256, For 1 dose, Adult IV push rate: Over 15 seconds. Peds IV push rate: Over 1 minute. Doses > 15 mg IV/IM are discouraged due to lack of additional analgesic benefit. 0023 (Given - Provid er: Carla Jones R.N.) PRN Medication Order 08/21/2022 08/22/2022 08/23/2022 iohexoL 350 mg iodine/mL solution 1-200 mL (OMNIPAQUE) (COMPLETED) 1-200 mL, intravenous, Once in imaging, contrast, for CT exam, Starting on 08/23/22 at 0045, For 1 dose, Dose per Radiant Medication Guidelines 0045 (Given - Provid er: Katherine Birmingham R.T.(R)(CT), R.T.(R)) sodium chloride 0.9 % flush 100 mL (COMPLETED) 100 mL, intravenous, Once in imaging, line care, needed for CT, Starting on 08/23/22 at 0045, For 1 dose 0045 (Given - Provid er: Renetta Dolan(R)(CT), R.T.(R)) sodium chloride 0.9 % injection 10 mL (COMPLETED) 10 mL, intravenous, Once in imaging, line care, for CT exam, Starting on 08/23/22 at 0045, For 1 dose 0045 (Given - Provid er: Renetta Dolan(R)(CT), R.T.(R)) documented in this encounter Additional Health Concerns Assessment Noted Time PHQ-9 Depression Total Score: 3 04/23/19 22 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
--- OUTSIDE RECORDS SUMMARY | 2023-04-06 19:24 | XMS_ITS | Encounter Summary ---
Author Name Unknown Organization [facility] Address [address] [place] [address] Care Team Providers Care Plan Examiner Name Role Phone Elsewhere, Pcp Primary Care Provider Unavailabl e Reason for Visit * Reason Comments Chest Pain Pt presents to ED wi th mid/left chest pain that began last night. Fibromyalgia hx but reports this new pain feels different. Encounter Details Date Type Department Care Team ([facility] st Contact Info) Description 10/07/2022 12:08 PM CDT - 10/07/2022 2:48 PM CDT Emergency [place] [facility] [address] [place] [id number] Danny Boogie M.D. [address] [place] [phone] Pain Chest Atypical (Primary Dx) Discharge Disposition: Home or Self [...] any clubs o r organizations such as worship groups, unions, fraternal or athletic groups, or [...] Answer Date Recorded PHQ-2 Score 0 12/10/2021 [facility] [place] [facility] Occup[facility] - Occupational Stress [...] place to sleep or slept in a retirement (including now)? No 04/03/2022 Depression Answer Date [...] Sign Reading Time Taken Comments Blood Pressure 114/83 10/07/2022 2:30 PM CDT Pulse 62 10/07/2022 2:30 PM CDT Temperature 36.7 ??C (98.1 ??F) 10/07/2022 2:30 PM CD T Respiratory Rate 15 10/07/2022 2:30 PM CDT Oxygen Saturation 99% 10/07/2022 2:30 PM CDT Inhaled Oxygen Concentration - - Weight 104 kg (229 lb 4.5 oz) 10/07/2022 12:19 P M CDT Height - - Body Mass Index 37.01 08/30/2022 9:01 PM CDT documented in this encounter Discharge Instructions * Attachments The following attachments cannot be sent through Care Everywhere. * Nonspecific Chest Pain Adult ([place]) documented in this encounter Medications at Time [...] as of this encounter ED Notes * Danny Boogie M.D. - 10/07/2022 12:35 PM CDT SUBJECTIVE CHIEF COMPLAINT/REASON FOR VISIT Chest Pain (Pt presents to ED with mid/left chest pain that began last night. Fibromyalgia hx but reports this new pain feels different.) HISTORY OF PRESENT ILLNESS Henny Rivas is a 42 y.o. female past medical history significant for fibromyalgia, previous tubal ligation not on control presenting to the emergency department for evaluation of left-sided non reproducible chest pain that began last night. Patient reports that the pain feels different than her previous fibromyalgia, she also reports history of anxiety but does not feel similar. Deniesany mechanical injury or significant pain with movement of the left upper chest. She also reports indigestion for which she takes omeprazole but also states it feels different. No recent travel history, she is no leg swelling or personal history of DVT. Nothing has made her symptoms better or worse, currently rates her pain as 6/10, she did try ibuprofen at approximately 10:00 a.m. without reliefof her symptoms, at times describes it as sharp, localized to the chest, now here for assessment and management. 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 HENT: Negative for sore throat. Eyes: Negative for visual disturbance. Respiratory: Positive for chest tightness. Negative for cough. Cardiovascular: Positive for chest pain. Negative for leg swelling. Gastrointestinal: Negative for vomiting. Genitourinary: Negative for dysuria. Skin: Negative for rash. Neurological: Negative for headaches. Hematological: Does not bruise/bleed easily. ALLERGIES/MEDICATIONS: Reviewed in medical record. MEDICAL HISTORY Past Medical History: Diagnosis Date Eczema ongoing - sensitive skin Patient Active Problem List Diagnosis Date Noted Bleeding Postcoital 01/30/2022 Morbid Obesity Body Mass Index 40.0-44.9 Adult (HCC) 06/05/2021 Fibromyalgia 02/12/2021 Headache Benign 02/12/2021 Rhinitis Allergic 04/12/2006 SURGICAL HISTORY Past Surgical History: Procedure Laterality Date SECTION 2018 SECTION 2020 TUBAL LIGATION FAMILY HISTORY Reviewed in chart SOCIAL HISTORY Social History Socioeconomic History Marital status: Highest education level: Some college, no degree Tobacco Use Smoking status: Never Passive exposure: Never Smokeless tobacco: Never Vaping Use Vaping Use: never used Substance and Sexual Activity Alcohol use: Not Currently Comment: Once a month or sometimes twice a month Drug use: Not Currently Sexual activity: Yes Partners: Male control/protection: Tubal ligation (tubes tied) Social Determinants of Health Financial Resource Strain: Low Risk (04/21/2021) Overall Financial Resource Strain (CARDIA) Difficulty of Paying Living Expenses: Not very hard Food Insecurity: No Food Insecurity (04/21/2021) Hunger Vital Sign Worried About Running Out of Food in the Last Year: Never true Ran Out of Food in the Last Year: Never true Transportation Needs: No Transportation Needs (04/03/2022) PRAPARE - Transportation Lack of Transportation (Medical): No Lack of Transportation (Non-Medical): No Physical Activity: Inactive (04/03/2022) Exercise Vital Sign Days of Exercise per Week: 0 days Minutes of Exercise per Session: 20 min Intimate Partner Violence: Not At Risk (04/21/2021) Humiliation, Afraid, Rape, and Kick questionnaire Fear of Current or Ex-Partner: No Emotionally Abused: No Physically Abused: No Sexually Abused: No Housing Stability: Low Risk (04/03/2022) Housing Stability Vital Sign Unable to Pay for Housing in the Last Year: No Number of Places Lived in the Last Year: 1 Unstable Housing in the Last Year: No Social History Substance and Sexual Activity Alcohol Use Not Currently Comment: Once a month or sometimes twice a month Social History Substance and Sexual Activity Drug Use Not Currently OBJECTIVE INITIAL VITAL SIGNS Initial Vitals Temperature 10/07/22 1215 36.5 ??C Pulse Rate 10/07/22 1215 71 Heart Rate 10/07/22 1215 71 Resp Rate 10/07/22 1215 12 Blood Pressure 10/07/22 1215 (!) 124/104 SpO2 10/07/22 1215 100 % Pain Score 10/07/22 1217 6 PHYSICAL EXAMINATION Constitutional: Nursing note and vitals reviewed. No distress. HENT: Mouth/Throat: Mucous membranes are moist. Eyes: Pupils are equal, round, and reactive to light. Cardiovascular: Normal rate. No murmur heard.Edema: no edema noted Pulmonary/Chest: Effort normal and breath sounds normal. Abdominal: Soft. exhibits no distension. There is no guarding. Musculoskeletal: General: Normal range of motion. Neurological: Alert. Skin: No cyanosis. ED COURSE ED Course as of 10/07/22 1512 WedOct 07, 2022 1250 CBC with Differential, Blood(!): Hemoglobin 14.2 Hematocrit 43.4 Erythrocytes 5.05 MCV 85.9 RBC Distrib Width 13.4 Platelet Count 300 White Blood Cell Count 9.0 Neutrophils 5.00 Lymphocytes 3.11(!) Monocytes 0.73 Eosinophils 0.15 Basophils 0.03 Patient has normal hemoglobin with no clinical findings suggesting anemia, also no leukocytosis with low clinical symptoms that would suggest infectious concerns. 1257 Basic Metabolic Panel(!): Potassium, P 3.9 Sodium, P 140 Chloride, P 101 Bicarbonate, P 28 Anion Gap, P 11 BUN (Blood Urea Nitrogen), P 15 Creatinine 0.92 Estimated GFR (eGFR) 80 Calcium, Total, P 10.1(!) Glucose, P 78 Laboratory studies in the emergency department are negative for any significant abnormalities to explain the patient's symptoms, she is normal kidney function. 1257 Troponin T, Baseline, 5th gen: Troponin T, Baseline, 5th gen <6 Patient's cardiac enzyme is negative, she is low pretest probability for acute ACS by story, history, nonexertional with no associated symptoms. 1304 Lipase: Lipase, P 38 Patient has normal lipase with no evidence acute pancreatitis. 1304 Hepatic Function Panel: Bilirubin, Total, P 0.5 Bilirubin, Direct, P <0.2 Aspartate Aminotransferase (AST), P 14 Alanine Aminotransferase (ALT), P 12 Alkaline Phosphatase, P 86 Albumin, P 4.3 Protein, Total, P 7.6 Liver function tests are also normal reducing the low clinical suspicion of cholecystitis as alternative etiology. 1314 ECG 12 Lead Narrative & Impression IMPRESSION: Normal sinus rhythm with short NM Minimal voltage criteria for LVH, may be normal variant Nonspecific T wave abnormality When compared with ECG of 30-MAY-2022 09:36, 1349 DX Chest AP or PA and Lateral 2 Views No acute findings. 1510 On reassessment with the patient she was provided reassurance that all of her laboratory studies did not show acute etiology of her symptoms. We did discussed consideration for 2 hour delta troponin given active pain on arrival to the emergency department. Through shared decision-making the patient was comfortable withholding repeat testing, acknowledge low but not 0% possibility of potential elevated troponin. She will return with any acute worsening symptoms as we discussed, otherwise she is comfortable discharge home will continue symptomatic observation outpatient primary care follow-up if indicated or necessary. Final Diagnoses: as of 10/07/22 1512 Pain Chest Atypical INTERVENTIONS Medications lidocaine 5 % 1 patch (LIDODERM) (1 patch transdermal Medication Applied 10/07/22 1235) LABS Labs Reviewed BASIC METABOLIC PANEL, S/P - Abnormal Result Value Potassium, P 3.9 Sodium, P 140 Chloride, P 101 Bicarbonate, P 28 Anion Gap, P 11 BUN (Blood Urea Nitrogen), P 15 Creatinine 0.92 Estimated GFR (eGFR) 80 Calcium, Total, P 10.1 (*) Glucose, P 78 CBC WITH DIFFERENTIAL, B - Abnormal Hemoglobin 14.2 Hematocrit 43.4 Erythrocytes 5.05 MCV 85.9 RBC Distrib Width 13.4 Platelet Count 300 Leukocytes 9.0 Neutrophils 5.00 Lymphocytes 3.11 (*) Monocytes 0.73 Eosinophils 0.15 Basophils 0.03 TROPONIN T, BASELINE, 5TH GEN, P Troponin T, Baseline, 5th gen <6 LIPASE, S/P Lipase, P 38 HEPATIC FUNCTION PANEL, S Bilirubin, Total, P 0.5 Bilirubin, Direct, P <0.2 Aspartate Aminotransferase (AST), P 14 Alanine Aminotransferase (ALT), P 12 Alkaline Phosphatase, P 86 Albumin, P 4.3 Protein, Total, P 7.6 ECG ECG 12 Lead Result Date: 10/07/2022 Normal sinus rhythm with short NM Minimal voltage criteria for LVH, may be normal variant Nonspecific T wave abnormality When compared with ECG of 30-MAY-2022 09:36, Minimal criteria for Left ventricular hypertrophy are now present Reviewed by WHIT Broderick RADIOLOGY DX Chest AP or PA and Lateral 2 Views Final Result Stable chest, no acute cardiopulmonary disease. ASSESSMENT / PLAN ASSESSMENT/PLAN IMPRESSION AND PLAN Henny Rivas is a 42 y.o. female presents for nonspecific nonexertional non reproducible chest pain to the left chest. Vital signs are normal without any evidence of tachypnea or hypoxia, no signs of acute cardiopulmonary distress. EKG was obtained, nonspecific findings but no evidence of acute ST-elevation myocardial infarction. Recommendation for screening laboratory studies and further workup and management. Please follow EDcourse. DIFFERENTIAL DIAGNOSIS Differential diagnosis includes but is not limited to: myocardial ischemia, pericarditis, aortic dissection, pulmonary embolism, pneumothorax, esophageal rupture, valvular disease, pulmonary hypertension, pneumonia, pleuritis, gastroesophageal reflux disease, peptic ulcer disease, biliary disease, p ancreatitis, musculoskeletal, anxiety, others. I reviewed previous medical records including lab results. DIAGNOSIS Final diagnoses: [R07.89] Pain Chest Atypical ED DISCHARGE MEDS ED Prescriptions None DISPOSITION Home or Self Nursing Home or Self Care Danny Boogie M.D. 10/07/22 1512 documented in this encounter Plan of Treatment Not on file documented as of this encounter Procedures Procedure Name Priority Date/Time Associated Diagnosis Comments DX CHEST AP OR PA AND LATERAL 2 VIEWS RAD - Semiurgent (Fast; most ED patients; some inpatients) 10/07/2022 1:43 PM CDT TROPONIN T, BASELINE, 5TH GEN, P STAT 10/07/2022 12:17 PM CDT HEPATIC FUNCTION PANEL, S STAT 10/07/2022 12:17 PM CDT CBC WITH DIFFERENTIAL, B STAT 10/07/2022 12:17 PM CDT LIPASE, S/P STAT 10/07/2022 12:17 PM CDT BASIC METABOLIC PANEL, S/P STAT 10/07/2022 12:17 PM CDT ECG STAT 10/07/2022 12:07 PM CDT documented in this encounter Results * DX Chest AP or PA and Lateral 2 Views (10/07/2022 1:43 PM CDT) Anatomical Region Laterality Modality Chest, Thoracic RST LOS, Tho racic ARZ LOS, Thoracic FLA LOS N/A Digital Radiography 10/07/2022 1:43 PM CDT Impressions 10/07/2022 1:44 PM CDT Stable chest, no acute cardiopulmonary disease. Narrative 10/07/2022 1:44 PM CDT EXAM: DX CHEST AP OR PA AND LATERAL 2 VIEWS COMPARISON: 05/30/2022. FINDINGS: Heart size and pulmonary vascularity are within normal limits. Lungs are clear of infiltrates or effusions. There is no significant interval change compared with 05/30/2022. Procedure Note Kenton Gutiérrez Jr., M.D. - 10/07/2022 EXAM: DX CHEST AP OR PA AND LATERAL 2 VIEWS COMPARISON: 05/30/2022. FINDINGS: Heart size and pulmonary vascularity are within normal limits.Lungs are clear of infiltrates or effusions. There is no significant interval change comparedwith 05/30/2022. IMPRESSION: Stable chest, no acute cardiopulmonary disease. Danny Boogie M.D. Madhav DIAGNOSTIC I MAGING PROCEDURES * Hepatic Function Panel (10/07/2022 12:17 PM CDT) Bilirubin, Total, P 0.5 <=1.2 mg/dL 10/07/2022 1:01 PM CDT NPRG Bilirubin, Direct, P <0.2 0.0 - 0.3 mg/dL 10/07/2022 1:01 PM CDT NPRG Aspartate Aminotransferase (AST), P 14 8 - 43 U/L 10/07/2022 1:01 PM CDT NPRG Alanine Aminotransferase (ALT), P 12 7 - 45 U/L 10/07/2022 1:01 PM CDT NPRG Alkaline Phosphatase, P 86 35 - 104 U/L 10/07/2022 1:01 PM CDT NPRG Albumin, P 4.3 3.5 - 5.0 g/dL 10/07/2022 1:01 PM CDT NPRG Protein, Total, P 7.6 6.3 - 7.9 g/dL 10/07/2022 1:01 PM CDT NPRG Blood (Blood, Venous) 10/07/2022 12:17 PM CDT 10/07/2022 12:38 PM CDT Danny Boogie M.D. LAB BLOOD ADD-ON Performing Organization Address City/[facility]/ZIP Co de Phone Number [facility] [address] [place] [address], [facility] NPRG [address] [address] * Lipase (10/07/2022 12:17 PM CDT) Lipase, P 38 13 - 60 U/L 10/07/2022 1: 01 PM CDT NPRG Blood (Blood, Venous) 10/07/2022 12:17 PM CDT 10/07/2022 12:38 PM CDT Danny Boogie M.D. LAB BLOOD ADD-ON [facility] [address] [place] [id number], [facility] NPRG [address] [address] * (ABNORMAL) CBC with Differential, Blood (10/07/2022 12:17 PM CDT) Hemoglobin 14.2 11.6 - 15.0 g/dL 10/07/2022 12:46 PM CDT NPRG Hematocrit 43.4 35.5 - 44.9 % 10/07/2022 12:46 PM CDT NPRG Erythrocytes 5.05 3.92 - 5.13 x10(12)/L 10/07/2022 12:46 PM CDT NPRG MCV 85.9 78.2 - 97.9 fL 10/07/2022 12:46 PM CDT NPRG RBC Distrib Width 13.4 12.2 - 16.1 % 10/07/2022 12:46 PM CDT NPRG Platelet Count 300 157 - 371 x10(9)/L 10/07/2022 12:46 PM CDT NPRG Leukocytes 9.0 3.4 - 9.6 x10(9)/L 10/07/2022 12:46 PM CDT NPRG Neutrophils 5.00 1.56 - 6.45 x10(9)/L 10/07/2022 12:46 PM CDT NPRG Lymphocytes 3.11(H) 0.95 - 3.07 x10(9)/L 10/07/2022 12:46 PM CDT NPRG Monocytes 0.73 0.26 - 0.81 x10(9)/L 10/07/2022 12:46 PM CDT NPRG Eosinophils 0.15 0.03 - 0.48 x10(9)/L 10/07/2022 12:46 PM CDT NPRG Basophils 0.03 0.01 - 0.08 x10(9)/L 10/07/2022 12:46 PM CDT NPRG Blood (Blood, Venous) 10/07/2022 12:17 PM CDT 10/07/2022 12:34 PM CDT Danny Boogie M.D. LAB BLOOD ADD-ON [facility] [address] [place] [address], [facility] NPRG [facility] [address] [place] [address] * Troponin T, Baseline, 5th gen (10/07/2022 12:17 PM CDT) Troponin T, Baseline, 5th gen <6 <=10 ng/L 10/07/2022 12:51 PM CDT NPRG Blood (Blood, Venous) 10/07/2022 12:17 PM CDT 10/07/2022 12:34 PM CDT Danny Boogie M.D. LAB BLOOD [place] IN [facility] [address] [place] [address], [place] NPR[facility] [address] [place] [address] * (ABNORMAL) Basic Metabolic Panel (10/07/2022 12:17 PM CDT) Potassium, P 3.9 3.6 - 5.2 mmol/L 10/07/2022 12:53 PM CDT NPRG Sodium, P 140 135 - 145 mmol/L 10/07/2022 12:53 PM CDT NPRG Chloride, P 101 98 - 107 mmol/L 10/07/2022 12:53 PM CDT NPRG Bicarbonate, P 28 22 - 29 mmol/L 10/07/2022 12:53 PM CDT NPRG Anion Gap, P 11 7 - 15 10/07/2022 12:53 PM CDT NPRG BUN (Blood Urea Nitrogen), P 15 6 - 21 mg/dL 10/07/2022 12:53 PM CDT NPRG Creatinine 0.92 0.59 - 1.04 mg/dL 10/07/2022 12:53 PM CDT NPRG Estimated GFR (eGFR) 80 >=60 mL/min/BSA 10/07/2022 12:53 PM CDT NPRG Comment: Estimated GFR calculated using the 2020 CKD_EPI creatinine equation. Calcium, Total, P 10.1(H) 8.6 - 10.0 mg/dL 10/07/2022 12:53 PM CDT NPRG Glucose, P 78 70 - 140 mg/dL 10/07/2022 12:53 PM CDT NPRG Blood (Blood, Venous) 10/07/2022 12:17 PM CDT 10/07/2022 12:34 PM CDT Danny Boogie M.D. LAB BLOOD ADD-ON [facility] [address] [place] [address], [place] NPRG [facility] [employer] [address] [place] [address] * ECG 12 Lead (10/07/2022 12:07 PM CDT) Ventricular Rate ECG/Min 71 BPM MUSE NM Interval 136 ms MUSE QRSD Interval 86 ms MUSE QT Interval 396 ms MUSE QTC Interval 430 ms MUSE P [place] 45 degrees MUSE R [place] -3 degrees MUSE T Wave [place] 20 degrees MUSE 10/07/2022 12:0 7 PM CDT 10/07/2022 1:13 PM CDT Impressions MUSE - 10/07/2022 1:13 PM CDT Normal sinus rhythm with short NM Minimal voltage criteria for LVH, may be normal variant Nonspecific T wave abnormality When compared with ECG of 30-MAY-2022 09:36, Minimal criteria for Left ventricular hypertrophy are now present Reviewed by WHIT Broderick Narrative Procedure Note Alex Cho M.D. - 10/07/2022 IMPRESSION: Normal sinus rhythm with short NM Minimal voltage criteria for LVH, may be normal variant Nonspecific T wave abnormality When compared with ECG of 30-MAY-2022 09:36, Minimal criteria for Left ventricular hypertrophy are now present Reviewed by WHIT Broderick Danny Boogie M.D. ECG ORDERABLES MUSE NA documented in this encounter Visit Diagnoses Diagnosis Pain Chest Atypical- Primary documented in this encounter Administered Medications Inactive Administered Medications - up to 3 most recent administrations Medication Order MAY Action Action Date Dose Rate Site lidocaine 5 % 1 patch (LIDODERM) 1 patch, transdermal, Administer over 12 Hours, Once, On Wed10/07/22 at 1233, For 1 dose, Remove after 12 hours. Medication Applied 10/07/2022 12:35 PM CDT 1 patch Chest documented in this encounter Active and Recently Administered Medications Times are shown in CDT. Scheduled Medication Order 10/05/2022 10/06/2022 10/07/2022 lidocaine 5 % 1 patch (LIDODERM) 1 patch, transdermal, Administer over 12 Hours, Once, On Wed10/07/22 at 1233, For 1 dose, Remove after 12 hours. 1235 (Medication Mariah lied - Provider: Jana Leblanc)1447 (Due: Medication Removed - Provider: Discharge Provider, Automatic - Comment: Time automatically adjusted from order being discontinued) documented in this encounter Additional Health Concerns Assessment Noted Time PHQ-9 Depression Total Score: 3 04/23/19 22 8:30 AM [employer] documented as of this encounter Care Teams Plan Examiner Relationship Specialty Start Date End Date Elsewhere, Pcp PCP - General Internal Medicine 01/07/22 documented as of this encounter
--- OUTSIDE RECORDS SUMMARY | 2023-04-06 19:24 | XMS_ITS | Encounter Summary ---
Author Name Unknown Organization [facility] Address [address] [place] [address] Care Team Providers Care Weed Inspector Name Role Phone Elsewhere, Pcp Primary Care Provider Unavailabl e Reason for Visit * Reason Comments Abdominal Pain Pt presents with per sistent abdominal pain, bloating and constipation. Taking miralx and today had MOM with no relief. Encounter Details Date Type Department Care Team ([facility] st Contact Info) Description 08/28/2022 10:56 PM CDT - 08/29/2022 1:02 AM CDT Emergency [facility] Emergency Department [address] [place] [phone] Jerome Patterson P.A.-C. [address] [place] [phone] Constipation (Primary Dx) Discharge Disposition: Home or Self [...] How often do you attend chur or sabianism services? 1 to 4 times per year [...] Answer Date Recorded PHQ-2 Score 0 12/10/2021 [facility] - Occupational Stress [...] Sign Reading Time Taken Comments Blood Pressure 127/79 08/29/2022 12:45 AM CDT Pulse 75 08/29/2022 1:00 AM CDT Temperature 36.4 ??C (97.5 ??F) 08/28/2022 10:05 PM C DT Respiratory Rate 18 08/28/2022 10:05 PM CDT Oxygen Saturation 99% 08/29/2022 1:00 AM CDT Inhaled Oxygen Concentration - - Weight 105 kg (230 lb 9.6 oz) 08/28/2022 10:05 P M CDT Height 167.6 cm (5' 6) 08/28/2022 10:05 PM CDT Body Mass Index 37.22 08/28/2022 10:05 PM CDT documented in this encounter Discharge Instructions * Discharge Instructions* Jerome Patterson P.A.-C. - 08/28/2022 11:22 PM CDT So I sent the medication for the bowel prep to your pharmacy. Drink half the bottle. This will makeyou have a bowel movement I would plan on being at home for this. Do the enema 1st. I would do the enema tonight when you get home. You can continue with the MiraLax after this. I would say started on Wednesday do a tbsp in the morning and evening twice daily until you have regular bowel movements, then go down to once daily. My hope would be that he would not need to be on this medication in the next week or 2. Make sure getting fiber in your diet, staying hydrated getting exercise. When you get back home follow-up with your primary care. documented in this encounter Medications at Time [...] as of this encounter ED Notes * Jerome Patterson P.A.-C. - 08/28/2022 11:23 PM CDT SUBJECTIVE CHIEF COMPLAINT/REASON FOR VISIT: Abdominal Pain (Pt presents with persistent abdominal pain, bloating and constipation. Taking miralx and today had MOM with no relief.) HISTORY OF PRESENT ILLNESS: Henny Rivas is a 41 y.o. female who presents to the emergency department with complaints of constipation. The patient is seen here proximally 7 days ago for abdominal pain and constipation. Thinks it maybe related to a medication she started for depression but then stopped. She reports she hasbeen using MiraLax at home as well as eating prune juice. In recently started some milk of magnesia today but still no bowel movement. She says she is passing gas. She feels bloated in his lost her appetite. But no vomiting. She reports no fevers chills no urinary pain or frequency. Says she has had 2 in the past but no other abdominal surgeries. REVIEW OF SYSTEMS The following portions of the patient's history were reviewed and updated as appropriate: allergies, current medications, family history, medical history, social history, surgical history and problemlist. OBJECTIVE VITAL SIGNS Initial Vitals Temperature 08/28/22 2205 36.4 ??C Pulse Rate 08/28/22 220 72 Heart Rate 08/28/222204 72 Resp Rate 08/28/222204 18 Blood Pressure 08/28/222204 127/90 SpO2 08/28/222204 99 % Pain Score 08/28/221 6 PHYSICAL EXAMINATION Constitutional: Nursing note reviewed. No distress. HENT: Head: Normocephalic. Mouth/Throat: Oropharynx is clear and moist. Mucous membranes are moist. Eyes: Pupils are equal, round, and reactive to light. Cardiovascular: Normal rate and regular rhythm. Capillary refill: takes less than 3 seconds Pulmonary/Chest: Effort normal. Abdominal: Soft. Bowel sounds are normal. There is no abdominal tenderness. There is no rebound andno guarding. Musculoskeletal: Cervical back: Normal range of motion. Neurological: Alert and oriented to person, place, and time. No cranial nerve deficit. Skin: Skin is warm and dry. Psychiatric: She has a normal mood and affect. INTERVENTIONS: Medications mineral oil enema 1 enema (1 enema rectal Not Given 08/29/22 004) DIAGNOSTICS ASSESSMENT / PLAN Henny Rivas is a 41 y.o. female presents to the emergency department with H and P as per aboveseen just days prior for abdominal pain that had a rather complete workup involving labs and CT imaging thought to be here with constipation. She does report taking laxatives at home with no bowel movements yet. But continued bloating. She is passing gas. No vomiting. Had multiple nonsurgical abdominal exams here in the ED. She does report some rectal fullness. What we will do is provide the patient an enema and then a bowel prep. At this juncture given H&P I do not see that labs or repeat imaging is warranted I discussed dietary recommendations, the impression, treatment plan, follow-up interval return precautions. She verbally nausea understand her conversations agreeable home disposition. ED COURSE: Final Diagnoses: as of 08/29/22151 Constipation ED DISCHARGE MEDICATIONS: ED Prescriptions Medication Sig Dispense Start Date End Date Auth. Provider polyethylene glycol-electrolytes (NULYTELY) 420 gram solution () Take 2,000 mL by mouth oncefor 1 dose. 4,000 mL 08/28/2022 08/28/2022 Jerome Patterson P.A.-C. DISPOSITION: Home or Self Snf or Self Care FOLLOW UP: With PCP Jerome Patterson P.A.-C. 08/29/22152 documented in this encounter Plan of Treatment Not on file documented as of this encounter Visit Diagnoses Diagnosis Constipation- Primary documented in this encounter Active and Recently Administered Medications Times are shown in CDT. Scheduled Medication Order 08/27/2022 08/28/2022 08/29/2022 mineral oil enema 1 enema 1 enema, rectal, Once, On Wed08/28/22 at 2320, For 1 dose 0048 (Not Given - Pr ovider: Urszula Desai R.N. - Reason: Other - Comment: Provider and pt decided on tap water enema instead of the mineral oil enema.) documented in this encounter Additional Health Concerns Assessment Noted Time PHQ-9 Depression Total Score: 3 04/23/19 22 8:30 AM ALLOPATHIC DOCTOR documented as of this encounter Care Teams Weed Inspector Relationship Specialty Start Date End Date Elsewhere, Pcp PCP - General Internal Medicine 01/07/22 documented as of this encounter
--- OUTSIDE RECORDS SUMMARY | 2023-04-06 19:24 | XMS_ITS | Encounter Summary ---
Author Name Unknown Organization [facility] Address [address] [place] [id number] Care Team Providers Care Cna Gna Name Role Phone Elsewhere, Pcp Primary Care Provider Unavailabl e Reason for Visit * Reason Onset Date Comments Constipation 08/28/2022 Encounter Details Date Type Department Care Team ([facility] st Contact Info) Description 08/28/2022 Nurse Triage Department of Family Medicine in [place], [place] [address] [place] [phone] Head, Henny Atwood M.S.N., R.N. [address] [place] [phone] Constipation Social History Tobacco Use Types Packs/Day Years [...] Answer Date Recorded PHQ-2 Score 0 12/10/2021 [facility] - Occupational Stress Questionnaire Answer Date [...] place to sleep or slept in a assisted (including now)? No 04/03/2022 Depression Answer Date [...] encounter Miscellaneous Notes * Telephone Encounter - Head, Kiersten Melton, R.N. - 08/28/2022 7:13 PM CDT Chief Complaint / Reason for Call Patient is a 41 y.o. female calling regarding Constipation. Assessment Concern: Constipation and abdominal pain. Was evaluated in the ED Present for: 4 days Home cares tried: Miralax, water, fiber Calling to request: advice The recommended disposition is See a health care provider within 24 hours. Reason for Disposition Abdomen is more swollen than usual Protocols used: [id number] Care Advice Patient/Caregiver understands and will follow care advice?: Yes, able to teach back SEE PCP WITHIN 24 HOURS: * IF OFFICE WILL BE OPEN: You need to be examined within the next 24 hours. GENERAL CONSTIPATION INSTRUCTIONS: * Eat a high fiber diet. * Drink adequate liquids. * Exercise regularly. Even a daily 15 minute walk can help. * Avoid enemas and stimulant laxatives. OSMOTIC LAXATIVES: * MIRALAX (POLYETHYLENE GLYCOL 3350): Miralax is an 'osmotic' agent which means that it binds waterand causes water to be retained within the stool. You can use this laxative to treat occasional constipation. Do not use for more than 2 weeks without approval from your doctor. Generally, Miralax produces a bowel movement in 1 to 3 days. Side effects include diarrhea (especially at higher doses). If you are , discuss with your doctor before using. Available in the [place]. * MILK OF MAGNESIA (MAGNESIUM HYDROXIDE): This is a mild and generally safe laxative. You can use Milk of Magnesia for short-term treatment of constipation. (Research suggests that Miralax may be more effective.) Dosage is 2 tablespoons (30 ml) PO. Do not use if you have kidney disease. * Before taking any medicine, read all the instructions on the package. CALL BACK IF: * Severe or increasing abdomen pain * Vomiting occurs * You become worse documented in this encounter Plan of Treatment Not on file documented as of this encounter Visit Diagnoses Not on filedocumented in this encounter Additional Health Concerns Assessment Noted Time PHQ-9 Depression Total Score: 3 04/23/19 22 8:30 AM WOOD TYPE CUTTER documented as of this encounter Care Teams Cna Gna Relationship Specialty Start Date End Date Elsewhere, Pcp PCP - General Internal Medicine 01/07/22 documented as of this encounter
--- OUTSIDE RECORDS SUMMARY | 2023-04-06 19:24 | XMS_ITS | Encounter Summary ---
Author Name Unknown Organization [facility] Address [address] [place] [address] Care Team Providers Care Legal Administrator Name Role Phone Elsewhere, Pcp Primary Care Provider Unavailabl e Reason for Visit * Reason Onset Date Comments Flank Pain 08/24/2022 Appt Request 08/24/2022 Encounter Details Date Type Department Care Team (Latest Contact Info) Description 08/24/2022 Clinical Communication Department of Urology in [place], [place] [address] [place] [phone] Elsewhere, Pcp Flank Pain; Appt Request Social History Tobacco Use Types Packs/Day Years [...] often do you attend chur ch or pentecostalism services? 1 to 4 times per year 04/03/2022 Do you belong to any clubs o r organizations such as buddhism groups, unions, fraternal or athletic groups, or [...] Answer Date Recorded PHQ-2 Score 0 [facility]10[facility]2021 [facility] Questionnaire Answer Date [...] place to sleep or slept in a fdc (including now)? No 04/03/2022 Depression Answer Date [...] encounter Miscellaneous Notes * Telephone Encounter - Rachel Peraza RSonaN. - 08/25/2022 3:50 PM CDT Contacted pt regarding pt inquiry to be seen in Urology since she was in the ER on 08/22/22. Pt instructed that according to the ER provider visit note, Dr. Gomez recommended close clinical follow-up with PCP for further evaluation and management and did not order a referral to Urology. Pt states she was not aware of that however did follow up with PCP Dr. Lau in [facility] and he ordered a US of gallbladder. Pt states she does not need anything further at this time and disregard request to see Urology. documented in this encounter Plan of Treatment Not on file documented as of this encounter Visit Diagnoses Not on filedocumented in this encounter Additional Health Concerns Assessment Noted Time PHQ-9 Depression Total Score: 3 04/23/19 22 8:30 AM PROGRAM AND RESEARCH COORDINATOR documented as of this encounter Care Teams Legal Administrator Relationship Specialty Start Date End Date Elsewhere, Pcp PCP - General Internal Medicine 01/07/22 documented as of this encounter
--- OUTSIDE RECORDS SUMMARY | 2023-04-06 19:25 | XMS_ITS | Encounter Summary ---
Author Name Unknown Organization [facility] Address [address] [place] [address] Care Team Providers Care Material Requisitioner Name Role Phone Elsewhere, Pcp Primary Care Provider Unavailabl e Reason for Visit * Reason Comments Back Pain Awoke this am feelin g good then developed headache, nausea, and mid back pain, denies urinary symptoms, tylenol at 0730 Encounter Details Date Type Department Care Team (Late st Contact Info) Description 05/30/2022 8:55 AM CDT - 05/30/2022 12:50 PM CDT Emergency [facility] Emergency Department [address] [place] [phone] Wade Lawrence, PAfsaneh.-C., M.S. [address] [place] [phone] Sinusitis (Primary Dx); Pain Chest Atypical Discharge Disposition: Home or Self Care Social History Tobacco Use Types Packs/Day Years Used Date Smoking Tobacco: Never Passive Smoke Exposure: Never Smokeless Tobacco: Never Alcohol Use Standard Drinks/Week Comments Yes 6 (1 standard drink = 0.6 oz pure [...] any clubs o r organizations such as episcopalian groups, unions, fraternal or athletic groups, or [...] PHQ-2 Score 0 12/10/2021 [facility] Occupat ional Health - Occupational Stress [...] place to sleep or slept in a halfway (including now)? No 04/03/2022 Depression Answer Date [...] Sign Reading Time Taken Comments Blood Pressure 127/72 05/30/2022 12:30 PM CDT Pulse 60 05/30/2022 12:45 PM CDT Temperature 36.1 ??C (97 ??F) 05/30/2022 8:53 AM CDT Respiratory Rate 14 05/30/2022 12:45 PM CDT Oxygen Saturation 100% 05/30/2022 12:45 PM CDT Inhaled Oxygen Concentration - - Weight 104 kg (229 lb 4.5 oz) 05/30/2022 8:54 AM CDT Height 167.6 cm (5' 6) 05/30/2022 8:54 AM CDT Body Mass Index 37.01 05/30/2022 8:54 AM CDT documented in this encounter Discharge Instructions * Discharge Instructions* Wade Lawrence P.A.-C., M.S. - 05/30/2022 12:05 PM CDT You were seen in the emergency department today and evaluated for your symptoms. Found to have possible developing sinus infection. Augmentin has been sent to the pharmacy for you if this is not improving with Tylenol and ibuprofen after few days or certainly if your worsening. Please adhere to ourreturn precautions as dicussed. Also recommend following up with your primary care provider. * Attachments The following attachments cannot be sent through Care Everywhere. * Sinusitis Adult (Yoruba) documented in this encounter Medications at Time [...] NEEDED FOR ANXIETY. 60 tablet 0 09/12/2021 multivitamin tablet Take 1 tablet by mouth [...] THEN 2 WEEKS OFF 0 03/03/2022 02/15/2023 cyclobenzaprine (FLEXERIL) 10 mg tablet Take 10 mg by mouth 3 (three) times a day as needed. for muscle spams 0 04/19/2022 06/01/2022 eflornithine (Vaniqa) 13.9 % cream Vaniqa 13.9 % topical cream 0 08/30/2022 metFORMIN (GLUCOPHAGE) 500 mg tablet TAKE 1 TABLET 3 TIMES A DAY BY ORAL ROUTE AFTER MEALS. 0 02/11/2022 08/30/2022 mometasone (ELOCON) 0.1 % ointment as needed. 0 07/29/2021 08/30/2022 omeprazole (PriLOSEC) [address] capsule Take 10 mg by mouth 2 (two) times a day. 0 12/16/2021 06/01/2022 omeprazole (PriLOSEC) [address] capsule Take 20 mg by mouth daily. 0 05/13/2022 02/15/2023 sertraline (ZOLOFT) 50 mg tablet Take 75 mg by mouth daily. 0 05/13/2022 08/30/2022 traMADoL (ULTRAM) 50 mg tablet TAKE 1-2 TABLETS (50-100MG) BY MOUTH EVERY 6 HOURS NEEDED FOR PAIN 0 03/18/2022 02/15/2023 documented as of this encounter ED Notes * Wade Lawrence P.A.Nazia., M.S. - 05/30/2022 9:21 AM CDT SUBJECTIVE CHIEF COMPLAINT/REASON FOR VISIT Back Pain (Awoke this am feeling good then developed headache, nausea, and mid back pain, denies urinary symptoms, tylenol at 0730) HISTORY OF PRESENT ILLNESS Henny Rivas is a 41 y.o. female coming in for a variety of symptoms today. Patient notes that they [place] area their [place]. Yesterday she had some pains in her chest primarily on the left side of her chest worse with arm movement. These have resolved today. Unfortunately, waking up today had some nausea that has improved now. No vomiting. Subsequently developed a headache as well. No head trauma. Does not normally get headaches. She also notes some back discomforts along her mid back. As well as a minor amount of abdominal discomfort. Stools have been normal and without hematochezia or melena. No dysuria or hematuria. No other COVID symptoms. No sick contacts. REVIEW OF SYSTEMS Constitutional: Negative for chills and fever. HENT: Negative for sore throat. Eyes: Negative for visual disturbance. Respiratory: Negative for shortness of breath. Cardiovascular: Negative for chest pain and leg swelling. Gastrointestinal: Negative for abdominal pain. Genitourinary: Negative for dysuria and hematuria. Musculoskeletal: Positive for back pain. Skin: Negative for rash. Neurological: Positive for headaches. Negative for syncope. OBJECTIVE Initial Vitals Temperature 05/30/22 0853 36.1 ??C Pulse Rate 05/30/22 0853 85 Heart Rate -- Resp Rate 05/30/22 0853 16 Blood Pressure 05/30/22 0853 138/88 SpO2 05/30/22 0853 98 % Pain Score 05/30/22 0854 7 PHYSICAL EXAMINATION Constitutional: Nursing note and vitals reviewed. She appears not lethargic. She is cooperative. Nodistress. HENT: Head: Normocephalic and atraumatic. Mouth/Throat: Uvula is midline, oropharynx is clear and moist and mucous membranes are normal. Mucous membranes are moist. No oropharyngeal exudate. Dental: Good dentition. Eyes: Conjunctivae and EOM are normal. Periorbital area normal appearing. Neck: Neck supple. Cardiovascular: Normal rate, regular rhythm and normal heart sounds. No murmur heard.Edema:No pitting edema. No pitting edema. Pulmonary/Chest: Effort normal and breath sounds normal. No respiratory distress. She has no wheezes. She has no rhonchi. She has no rales. Abdominal: Soft. Non-distended. There is abdominal tenderness in the right lower quadrant. There isno rigidity, no rebound and negative Tatum's sign. Musculoskeletal: Cervical back: Neck supple. Lymphadenopathy: She has no cervical adenopathy. Neurological: Alert. She is not disoriented. Skin: Skin is warm and dry. She is not diaphoretic. No jaundice. Psychiatric: She has a normal mood and affect. Speech pattern is normal. Thought content normal. IMPRESSION AND PLAN Patient coming in with a variety of symptoms today. Ultimately workup is fairly reassuring, please see ED work for full details. Atypical chest discomforts, suspect musculoskeletal etiology given that they worsened with arm movement yesterday, that are now resolved with troponins that are not trending up and reassuring ECG. Wells low risk and PERC negative. Chest x-ray without any significant acute findings. Given right lower quadrant tenderness on exam did complete CT imaging as well with no significant acute findings. CT of the head with possible sinusitis. Given patient is only on a coupledays of symptoms recommend Tylenol and ibuprofen for discomfort as needed. Will send Augmentin to start if needed. We discussed return precautions for which patient expressed understanding. DIFFERENTIAL DIAGNOSIS Extensive differential given patient's multiple concerns today including but not limited to: ACS, PE, pneumonia, pneumothorax, musculoskeletal, GERD, appendicitis versus other acute abdomen, sinusitis, intracranial bleeding versus other abnormality I personally reviewed the lab result(s) and my interpretation is documented in ED Course. I personally reviewed the radiology image(s) and reviewed the radiology report(s). The Radiology exam interpretation(s) is/are documented in ED Course. I independently reviewed the ECG tracing and my interpretation is documented in ED Course. ED Course as of 05/30/22 1231 Sat May 30, 2022 0932 Wells low risk and perc neg 0948 ECG 12 Lead Nonspecfiic t wave without other signs of ischemia 1015 CBC with Differential, Blood: Hemoglobin 13.6 Hematocrit 42.7 Erythrocytes 4.90 MCV 87.1 RBC Distrib Width 13.0 Platelet Count 275 White Blood Cell Count 8.1 Neutrophils 4.93 Lymphocytes 2.34 Monocytes 0.58 Eosinophils 0.17 Basophils 0.04 No significant acute findings 1058 Lipase: Lipase, P 40 WNL 1058 Comprehensive Metabolic Panel(!): Potassium, P 3.9 Sodium, P 137 Chloride, P 102 Bicarbonate, P 26 Anion Gap, P 9 BUN (Blood Urea Nitrogen), P 14 Creatinine 0.90 Estimated GFR (eGFR) 83 Calcium, Total, P 9.9 Glucose, P 64(!) Protein, Total, P 7.2 Albumin, P 4.3 Aspartate Aminotransferase (AST), P 12 Alkaline Phosphatase, P 78 Alanine Aminotransferase (ALT), P 9 Bilirubin, Total, P 0.3 No significant acute findings 1058 Urinalysis with Microscopic: Urine, Midstream(!): Source Urine, Urine, Midstream Clarity Clear Color, U Yellow Blood Negative Nitrite, U Negative Leukocyte Esterase Trace(!) Protein Urine Random Negative Glucose Negative Ketone Negative Bilirubin Negative pH 6.0 Specific [place] 1.018 Urobilinogen 0.2 White Blood Cells Occ-3 Urine RBC None Seen Squamous Cells 4-10 No UTI 1058 Troponin T, Baseline, 5th gen: Troponin T, Baseline, 5th gen <6 Troponin negative 1058 Test, POCT, Urine (lab): Test, POCT, Urine - EC Negative neg 1110 CT Head without IV Contrast IMPRESSION: 1. Right sphenoid and posterior ethmoid sinusitis. 2. No acute intracranial hemorrhage or new focal parenchymal abnormality. 3. Stable benign pineal region cyst. 1110 CT Abdomen Pelvis with IV Contrast MPRESSION: No acute intra-abdominal or intrapelvic abnormality 1216 Troponin T, 2H/6H, 5th Gen: Troponin T, 2 hr, 5th gen <6 2H Delta 0 2H Delta Interp Not Changing Troponin T, 6 hr, 5th gen CANCELED 6H Delta CANCELED 6H Delta % CANCELED Not changing 1216 DX Chest Portable 1 View No acute findings Final Diagnoses: as of 05/30/22 1231 Sinusitis Pain Chest Atypical Wade Lawrence P.A.-C., M.S. 05/30/22 1246 documented in this encounter Plan of Treatment Not on file documented as of this encounter Procedures Procedure Name Priority Date/Time Associated Diagnosis Comments TROPONIN T, 2H/6H, 5TH GEN, P Timed 05/30/2022 11:34 AM CDT DX CHEST PORTABLE 1 VIEW RAD - Semiurgent (Fast; most ED patients; some inpatients) 05/30/2022 11:[address] ABDOMEN PELVIS WITH IV CONTRAST RAD - Semiurgent (Fast; most ED patients; some inpatients) 05/30/2022 10:[address] HEAD WITHOUT IV CONTRAST RAD - Semiurgent (Fast; most ED patients; some inpatients) 05/30/2022 10:40 AM CDT TEST, POCT, U (LAB) STAT 05/30/2022 9:48 AM CDT URINALYSIS WITH MICROSCOPIC STAT 05/30/2022 9:48 AM CDT TROPONIN T, BASELINE, 5TH GEN, P STAT 05/30/2022 9:46 AM CDT CBC WITH DIFFERENTIAL, B STAT 05/30/2022 9:46 AM CDT LIPASE, S/P STAT 05/30/2022 9:46 AM CDT COMPREHENSIVE METABOLIC PANEL, S/P STAT 05/30/2022 9:46 AM CDT ECG STAT 05/30/2022 9:36 AM CDT documented in this encounter Results * Troponin T, 2H/6H, 5th Gen (05/30/2022 11:34 AM CDT) Troponin T, 2 hr, 5th gen <6 <=10 ng/L 05/30/2022 12:11 PM CDT MKTO 2H Delta 0 ng/L 05/30/2022 12:11 PM CDT MKTO 2H Delta Interp Not Changing 05/30/2022 12:11 PM CDT MKTO Troponin T, 6 hr, 5th gen CANCELED ng/L 05/30/2022 12:11 PM CDT MKTO Comment:Result canceled by t he ancillary. 6H Delta CANCELED ng/L 05/30/2022 12:11 PM CDT MKTO Comment:Result canceled by t he ancillary. 6H Delta % CANCELED % 05/30/2022 12:11 PM CDT MKTO Comment:Result canceled by t he ancillary. Blood (Blood, Venous) 05/30/2022 11:34 AM CDT 05/30/2022 11:41 AM CDT Narrative [facility] - 05/30/2022 12:11 PM CDT Specimen Information: Specimen ID: [id number] Specimen Type: Blood Specimen Collection Start Date: 05/30/2022 11:34 AM Specimen Received Date: 05/30/2022 11:41 AM Specimen ID: [id number] Specimen Type: Blood Wade Lawrence P.A.-C., M.S. LAB BLOOD TR OPONIN [facility] [address] [place] [address], [facility] [place] [address] * DX Chest Portable 1 View (05/30/2022 11:14 AM CDT) Anatomical Region Laterality Modality Chest, Thoracic RST LOS, Tho racic ARZ LOS, Thoracic FLA LOS N/A Digital Radiography 05/30/2022 12:0 4 PM CDT Impressions 05/30/2022 12:05 PM CDT No acute findings. Narrative 05/30/2022 12:05 PM CDT EXAM: DX CHEST PORTABLE 1 VIEW COMPARISON: Chest x-ray 12/11/[address] 03/17/2022 FINDINGS: Heart size and pulmonary vascularity normal. Lungs clear. No pleural effusion or pneumothorax. No acute bony abnormality. Procedure Note Lori Garza M.D. - 05/30/2022 EXAM: DX CHEST PORTABLE 1 VIEW COMPARISON: Chest x-ray 12/11/[address] 03/17/2022 FINDINGS: Heart size and pulmonary vascularity normal. Lungs clear. Nopleural effusion or pneumothorax. No acute bony abnormality. IMPRESSION: No acute findings. Wade Lawrence P.A.-C. M.SSona [facility]ED[facility] * CT Abdomen Pelvis with IV Contrast (05/30/2022 10:47 AM CDT) Anatomical Region Laterality Modality Abdomen, Pelvis, Abdominal R ST LOS, Abdominal ARZ LOS, Abdominal FLA LOS N/A Computed Tomography 05/30/2022 10:5 2 AM CDT Impressions 05/30/2022 11:06 AM CDT No acute intra-abdominal or intrapelvic abnormality. Narrative 05/30/2022 11:06 AM CDT EXAM: CT ABDOMEN PELVIS WITH IV CONTRAST COMPARISON: MRI abdomen 01/09/2022 FINDINGS: Bases: Mild dependent atelectasis. Heart is normal in size. No significant pericardial fluid. Abdomen/pelvis: Hepatic hemangiomas, appreciated on the patient's prior MRI and not significant changed. No abnormality of the stomach, spleen, pancreas, gallbladder, adrenals, kidneys, large or small bowel, urinary bladder, uterus, or adnexal regions. 17 mm follicle within the right ovary. No significant free fluid or pathologic lymphadenopathy. Aorta and iliac arteries normal in caliber. No significant atherosclerotic disease. No hemodynamically significant stenosis. No dissection. No CT evidence for appendicitis. Bones and soft tissues: No acute osseous abnormality. Degenerative changes of the spine. Vertebral height is maintained. Small fat-containing umbilical hernia. Procedure Note Abdi Garza M.D. - 05/30/2022 EXAM: CT ABDOMEN PELVIS WITH IV CONTRAST COMPARISON: MRI abdomen 01/09/2022 FINDINGS: Bases: Mild dependent atelectasis. Heart is normal in size. No significant pericardial fluid. Abdomen/pelvis: Hepatic hemangiomas, appreciated on the patient's prior MRI and notsignificant changed. No abnormality of the stomach, spleen, pancreas, gallbladder, adrenals,kidneys, large or small bowel, urinary bladder, uterus, or adnexal regions. 17 mm follicle withinthe right ovary. No significant free fluid or pathologic lymphadenopathy. Aorta and iliac arteries normal in caliber. No significant atheroscleroticdisease. No hemodynamically significant stenosis. No dissection. No CT evidence for appendicitis. Bones and soft tissues: No acute osseous abnormality. Degenerative changes of the spine. Vertebralheight is maintained. Small fat-containing umbilical hernia. IMPRESSION: No acute intra-abdominal or intrapelvic abnormality. Waed Lawrence P.A.-C. M.S. IMG CT PROCE DURES * CT Head without IV Contrast (05/30/2022 10:40 AM CDT) Anatomical Region Laterality Modality Head, Neuroradiology RST [facility] , Neuroradiology ARZ [facility], Neuroradiology FLA [facility] N/A Computed Tomography 05/30/2022 10:4 2 AM CDT Impressions 05/30/2022 11:02 AM CDT 1. Right sphenoid and posterior ethmoid sinusitis. 2. No acute intracranial hemorrhage or new focal parenchymal abnormality. 3. Stable benign pineal region cyst. Narrative 05/30/2022 11:02 AM CDT EXAM: CT HEAD WITHOUT IV CONTRAST COMPARISON: CT 11/03/2020, CT V 11/06/2020, MR 11/22/2020 FINDINGS: Ventricles normal in size and configuration. Mild frontal parenchymal volume loss. No acute intracranial hemorrhage. No new focal parenchymal abnormality. Stable pineal region cyst, suggesting a benign finding. No midline shift or localized mass effect. Near complete opacification of right sphenoid and right posterior ethmoid sinus. Paranasal sinuses and mastoid air cells otherwise clear. No acute abnormality identified involving the orbits. No acute bony abnormality. Procedure Note Lori Garza M.D. - 05/30/2022 EXAM: CT HEAD WITHOUT IV CONTRAST COMPARISON: CT 11/03/2020, CT V 11/06/2020, MR 11/22/2020 FINDINGS: Ventricles normal in size and configuration. Mild frontalparenchymal volume loss. No acute intracranial hemorrhage. No new focal parenchymal abnormality.Stable pineal region cyst, suggesting a benign finding. No midline shift or localized mass effect.Near complete opacification of right sphenoid and right posterior ethmoid sinus. Paranasal sinuses andmastoid air cells otherwise clear. No acute abnormality identified involving the orbits. Noacute bony abnormality. IMPRESSION: 1. Right sphenoid and posterior ethmoid sinusitis. 2. No acute intracranial hemorrhage or new focal parenchymalabnormality. 3. Stable benign pineal region cyst. Wade Lawrence P.A.-C. M.S. IMG CT PROCE DURES * (ABNORMAL) Urinalysis with Microscopic: Urine, Midstream (05/30/2022 9:48 AM CDT) Source Urine, Urine, Midstream 05/30/2022 9:57 AM CDT MKTO Clarity Clear Clear 05/30/2022 10:13 AM CDT MKTO Color Yellow 05/30/2022 10:13 AM CDT MKTO Comment: ----REFERENCE VALUE---- Colorless Yellow Chasity Blood Negative Negative 05/30/2022 10:13 AM CDT MKTO Nitrite Negative Negative 05/30/2022 10:13 AM CDT MKTO Leukocyte Esterase Trace(A) Negative 05/30/2022 10:13 AM CDT MKTO Protein Negative mg/dL 05/30/2022 10:13 AM CDT MKTO Comment: ----REFERENCE VALUE---- Negative Trace Glucose Negative Negative mg/dL 05/30/2022 10:13 AM CDT MKTO Ketone Negative Negative mg/dL 05/30/2022 10:13 AM CDT MKTO Bilirubin Negative Negative 05/30/2022 10:13 AM CDT MKTO pH 6.0 5.0 - 8.0 05/30/2022 10:13 AM CDT MKTO Specific [place] 1.018 1.001 - 1.035 05/30/2022 10:13 AM CDT MKTO Urobilinogen 0.2 0.2 - 1.0 mg/dL 05/30/2022 10:13 AM CDT MKTO White Blood Cells Occ-3 /hpf 05/30/2022 10:17 AM CDT MKTO Comment: ----REFERENCE VALUE---- Males: 0-3 Females: 0-10 Unknown: 0-10 Red Blood Cells None Seen 0 - 2 /hpf 10:17 AM CDT MKTO Squamous Cells 4-10 /hpf 05/30/2022 10:17 AM CDT MKTO Urine (Urine, Midstream) 05/30/2022 9:48 AM CDT 05/30/2022 9:56 AM CDT Wade Lawrence P.A.-C. MSonaSSona LAB URINE OR DERABLES Performing Organization Address City/[facility]/ZIP Co de Phone Number [facility] [address] [place] [address], [place] [address] * Test, POCT, Urine (lab) (05/30/2022 9:48 AM CDT) Test, POCT, U Negative 05/30/2022 10:19 AM CDT MKTO Urine (Urine, Midstream) 05/30/2022 9:48 AM CDT 05/30/2022 9:56 AM CDT Wade Lawrence P.A.-C. M.S. LAB POCT ORD ERABLES - DEVICE Performing Organization Address [facility] Co de Phone Number [facility] [address] [place] [address], [place] [address] * Troponin T, Baseline, 5th gen (05/30/2022 9:46 AM CDT) Troponin T, Baseline, 5th gen <6 <=10 ng/L 05/30/2022 10:23 AM CDT MKTO Blood (Blood, Venous) 05/30/2022 9:46 AM CDT 05/30/2022 10:01 AM CDT Wade Lawrence P.A.-C. MKarla LAB BLOOD TR OPONIN Performing Organization Address City/[facility]/ZIP Co de Phone Number [facility] [address] [place] [address] * Lipase (05/30/2022 9:46 AM CDT) Lipase, P 40 13 - 60 U/L 05/30/2022 10:22 AM CDT MKTO Blood (Blood, Venous) 05/30/2022 9:46 AM CDT 05/30/2022 10:01 AM CDT Wade Lawrence P.A.-C., M.S. LAB BLOOD AD D-ON Performing Organization Address City/[facility] Co de Phone Number [facility] [address] [place] [address], [place] [address] * (ABNORMAL) Comprehensive Metabolic Panel (05/30/2022 9:46 AM CDT) Potassium, P 3.9 3.6 - 5.2 mmol/L 05/30/2022 10:22 AM CDT MKTO Sodium, P 137 135 - 145 mmol/L 05/30/2022 10:22 AM CDT MKTO Chloride, P 102 98 - 107 mmol/L 05/30/2022 10:22 AM CDT MKTO Bicarbonate, P 26 22 - 29 mmol/L 05/30/2022 10:22 AM CDT MKTO Anion Gap, P 9 7 - 15 05/30/2022 10:22 AM CDT MKTO BUN (Blood Urea Nitrogen), P 14 6 - 21 mg/dL 05/30/2022 10:22 AM CDT MKTO Creatinine 0.90 0.59 - 1.04 mg/dL 05/30/2022 10:22 AM CDT MKTO Estimated GFR (eGFR) 83 >=60 mL/min/BS A 05/30/2022 10:22 AM CDT MKTO Comment: Estimated GFR calculated using the 2020 CKD_EPI creatinine equation. Calcium, Total, P 9.9 8.6 - 10.0 mg/dL 05/30/2022 10:22 AM CDT MKTO Glucose, P 64(L) 70 - 140 mg/dL 05/30/2022 10:22 AM CDT MKTO Protein, Total, P 7.2 6.3 - 7.9 g/dL 05/30/2022 10:22 AM CDT MKTO Albumin, P 4.3 3.5 - 5.0 g/dL 05/30/2022 10:22 AM CDT MKTO Aspartate Aminotransferase (AST), P 12 8 - 43 U/L 05/30/2022 10:22 AM CDT MKTO Alkaline Phosphatase, P 78 35 - 104 U/L 05/30/2022 10:22 AM CDT MKTO Alanine Aminotransferase (ALT), P 9 7 - 45 U/L 05/30/2022 10:22 AM CDT MKTO Bilirubin, Total, P 0.3 <=1.2 mg/dL 05/30/2022 10:22 AM CDT MKTO Blood (Blood, Venous) 05/30/2022 9:46 AM CDT 05/30/2022 10:01 AM CDT Wade Lawrence P.A.-C., M.S. LAB BLOOD AD D-ON [facility] [address] [place] [address], [facility] MKTO [facility] [place] [address] * CBC with Differential, Blood (05/30/2022 9:46 AM CDT) Hemoglobin 13.6 11.6 - 15.0 g/dL 05/30/2022 10:07 AM CDT MKTO Hematocrit 42.7 35.5 - 44.9 % 05/30/2022 10:07 AM CDT MKTO Erythrocytes 4.90 3.92 - 5.13 x10(12)/L 05/30/2022 10:07 AM CDT MKTO MCV 87.1 78.2 - 97.9 fL 05/30/2022 10:07 AM CDT MKTO RBC Distrib Width 13.0 12.2 - 16.1 % 05/30/2022 10:07 AM CDT MKTO Platelet Count 275 157 - 371 x10(9)/L 05/30/2022 10:07 AM CDT MKTO Leukocytes 8.1 3.4 - 9.6 x10(9)/L 05/30/2022 10:07 AM CDT MKTO Neutrophils 4.93 1.56 - 6.45 x10(9)/L 05/30/2022 10:07 AM CDT MKTO Lymphocytes 2.34 0.95 - 3.07 x10(9)/L 05/30/2022 10:07 AM CDT MKTO Monocytes 0.58 0.26 - 0.81 x10(9)/L 05/30/2022 10:07 AM CDT MKTO Eosinophils 0.17 0.03 - 0.48 x10(9)/L 05/30/2022 10:07 AM CDT MKTO Basophils 0.04 0.01 - 0.08 x10(9)/L 05/30/2022 10:07 AM CDT MKTO Blood (Blood, Venous) 05/30/2022 9:46 AM CDT 05/30/2022 10:01 AM CDT Wade Lawrence P.A.-C., M.S. LAB BLOOD AD D-ON [facility] [address] [place] [address], [facility] MKTO [facility] [place] [address] * ECG 12 Lead (05/30/2022 9:36 AM CDT) Ventricular Rate ECG/Min 68 BPM MUSE TX Interval 132 ms MUSE QRSD Interval 88 ms MUSE QT Interval 384 ms MUSE QTC Interval 408 ms MUSE P Zachary 60 degrees MUSE R Zachary 11 degrees MUSE T Wave Zachary 9 degrees MUSE 05/30/2022 9:36 AM CDT 05/30/2022 9:47 AM CDT Impressions MUSE - 05/30/2022 9:47 AM CDT Normal sinus rhythm Nonspecific T wave abnormality When compared with ECG of 17-MAR-2022 09:24, T wave inversion now evident in Anterior leads Reviewed by WHIT Lara Narrative Procedure Note Alex Cho M.D. - 05/30/2022 IMPRESSION: Normal sinus rhythm Nonspecific T wave abnormality When compared with ECG of 17-MAR-2022 09:24, T wave inversion now evident in Anterior leads Reviewed by WHIT Lara Wade Lawrence P.A.-C., M.S. ECG ORDERABL ES MUSE NA documented in this encounter Visit Diagnoses Diagnosis Sinusitis- Primary Pain Chest Atypical documented in this encounter Administered Medications Inactive Administered Medications - up to 3 most recent administrations Medication Order MAR Action Action Date Dose Rate Site iohexoL 350 mg iodine/mL solution 1-200 mL (OMNIPAQUE) 1-200 mL, intravenous, Once in imaging, contrast, for CT Exam, Starting on 05/30/22 at 1033, For 1 dose Given 05/30/2022 10:39 AM CDT 100 mL ketorolac injection 15 mg (TORADOL) 15 mg, intravenous, Once, On 05/30/22 at 1116, For 1 dose, Adult IV push rate: Over 15 seconds. Peds IV push rate: Over 1 minute. Doses > 15 mg IV/IM are discouraged due to lack of additional analgesic benefit. Given 05/30/2022 11:27 AM CDT 15 mg sodium chloride 0.9 % injection 10 mL 10 mL, intravenous, As needed, line care, for CT Exam, Starting on 05/30/22 at 1033 Given 05/30/2022 10:38 AM CDT 10 mL sodium chloride 0.9 % injection 100 mL 100 mL, intravenous, As needed, line care, for CT Exam, Starting on 05/30/22 at 1033 Given 05/30/2022 10:39 AM CDT 100 mL sodium chloride 0.9 % injection 2-10 mL 2-10 mL, intravenous, As needed, line care, Starting on 05/30/22 at 0919 documented in this encounter Active and Recently Administered Medications Times are shown in CDT. Scheduled Medication Order 05/28/2022 05/29/2022 05/30/2022 ketorolac injection 15 mg (TORADOL) (COMPLETED) 15 mg, intravenous, Once, On 05/30/22 at 1116, For 1 dose, Adult IV push rate: Over 15 seconds. Peds IV push rate: Over 1 minute. Doses > 15 mg IV/IM are discouraged due to lack of additional analgesic benefit. 1127 (Given - Provid er: Kathleen Padgett R.N.) PRN Medication Order 05/28/2022 05/29/2022 05/30/2022 iohexoL 350 mg iodine/mL solution 1-200 mL (OMNIPAQUE) (COMPLETED) 1-200 mL, intravenous, Once in imaging, contrast, for CT Exam, Starting on 05/30/22 at 1033, For 1 dose 1039 (Given - Provid er: Carmelina Ricks) sodium chloride 0.9 % injection 10 mL 10 mL, intravenous, As needed, line care, for CT Exam, Starting on 05/30/22 at 1033 1038 (Given - Provid er: Carmelina Ricks) sodium chloride 0.9 % injection 100 mL 100 mL, intravenous, As needed, line care, for CT Exam, Starting on 05/30/22 at 1033 1039 (Given - Provid er: Carmelina Ricks) sodium chloride 0.9 % injection 2-10 mL(Linked Group 1) 2-10 mL, intravenous, As needed, line care, Starting on 05/30/22 at 0919 Linked Groups Order Group 1: Place peripheral IV: No upper extremity site restrictions (CANCELED) Upper extremity site restriction: No upper extremity site restrictions, Quantity of PIVs requested: One, STAT, Once, On 05/30/22 at 0920, For 1 occurrence And sodium chloride 0.9 % injection 2-10 mLJump to med 2-10 mL, intravenous, As needed, line care, Starting on 05/30/22 at 0919 documented in this encounter Additional Health Concerns Assessment Noted Time PHQ-9 Depression Total Score: 3 04/23/19 22 8:30 AM 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
--- OUTSIDE RECORDS SUMMARY | 2023-04-06 19:25 | XMS_ITS | Encounter Summary ---
Author Name Unknown Organization [facility] Address [address] [place] [id number] Care Team Providers Care Sound Technician Name Role Phone Elsewhere, Pcp Primary Care Provider Unavailabl e Reason for Visit * Reason Comments Hemangioma Liver * Appointment Request (Routine) - Closed Specialty Diagnoses / Procedures Referred By Contact Referred To Contact Gastroenterology and Hepatology Diagnoses Hemangioma Liver Referral ID Status Reason Start Date Expiration Date Visits Re quested Visits Authorized [id number] Closed 01/13/2022 01/13/2023 1 1 Encounter Details Date Type Department Care Team (Latest Contact Info) Description 04/07/2022 2:10 PM WEB SERVICES PROFESSIONAL Comprehensive Visit Division of Gastroenterology in [place], [place] [address] [place] [phone] Waldo Benjamin M.D. [address] [place] [phone] Thaddeus Cosme M.D., Ph.D. [address] [place] [phone] Mass Hepatic (Primary Dx) Social History Tobacco Use Types [...] How often do you attend chur or congregation services? 1 to 4 times per year 04/03/2022 Do you belong to any clubs o r organizations such as yazidi groups, unions, fraternal or athletic groups, or [...] Answer Date Recorded PHQ-2 Score 0 12/10/2021 [employer] [facility] - Occupational Stress Questionnaire Answer Date [...] place to sleep or slept in a residential (including now)? No 04/03/2022 Depression Answer Date [...] Sign Reading Time Taken Comments Blood Pressure 123/86 04/07/2022 2:08 PM WEB SERVICES PROFESSIONAL Pulse 72 04/07/2022 2:08 PM WEB SERVICES PROFESSIONAL Temperature - - Respiratory Rate - - Oxygen Saturation - - Inhaled Oxygen Concentration - - Weight - - Height - - Body Mass Index - - documented in this encounter Consult Notes * Thaddeus Cosme M.D., Ph.D. - 04/07/2022 2:10 PM CST SUBJECTIVE CHIEF COMPLAINT / REASON FOR VISIT Hemangioma Liver HISTORY OF PRESENT ILLNESS Henny Rivas is a 41 y.o. female with history of obesity and fibromyalgia that presents for evaluation of a few incidentally discovered hepatic hemangiomas (largest 5.2x4.9 cm, R lobe; smaller 1.5x1.5 cm, L lobe) confirmed by MRI 01/2022. She was visiting the ED for chest pain and SOB in December when a CT scan identified the hepatic lesions. MRI 01/2022 consistent with hemangiomas and no other concerning findings. Her liver labs are unremarkable. She was subsequently referred to liver clinic for a second opinion. She reports intermittent but severe left flank pain that lasts a few seconds at a time. It is positional in nature. She denies early satiety or abdominal fullness. No fevers at home. She has not taken oral contraceptives since 2.5 years ago. Family history of liver or GI cancers. The following portions of the patient's history were reviewed and updated as appropriate: allergies, current medications, family history, medical history, social history, surgical history, and problem list. REVIEW OF SYSTEMS Constitutional: Positive for fatigue. Cardiovascular: Positive for chest pain, pressure or tightness and rapid or fluttering heart beat. Gastrointestinal: Positive for constipation and heartburn. Musculoskeletal: Positive for back pain and muscle pain/stiffness. Neurological: Positive for light-headedness, numbness or shooting pain in hands, arms, legs, or feet and headaches. Psychiatric/Behavioral: Positive for feeling nervous, anxious, or on edge in past two weeks. The following systems were negative: Skin, Eyes, ENT, Respiratory, Genitourinary, Hematologic OBJECTIVE PHYSICAL EXAM Vitals: 04/07/22 1408 BP: 123/86 Pulse: 72 General: well-appearing, in NAD HEENT: NC/AT, eyes EOMI, MMM, neck supple Lungs: No increased work of breathing Heart: peripheral pulses palpable and regular Abdomen: Non-distended, non-tender Ext: wwp, no swelling Skin: warm, dry, no rash, no jaundice Neuro: Alert, CN II-XII grossly intact, normal gait DIAGNOSTICS I personally reviewed the following: necessary labs, imaging, endoscopy, and pathology. ASSESSMENT / PLAN PROBLEMS: # Incidental hemangiomas (largest 5.2 cm R lobe) # Intermittent L flank pain This is a pleasant 41-year-old female a recently discovered right hepatic hemangioma of 5.2 cm withsmaller satellite hemangioma in the left lobe that presents for further evaluation and treatment. MRI abdomen was quite consistent with hemangiomas, therefore would not recommend any further evaluation such as biopsy. Given the this eyes, it is not unreasonable to repeat MRI abdomen in 6- 12 months.This could easily be done with her local provider. If the MRI shows hemangiomas that are stable in size, then would not recommend any further follow up. Fortunately she does not have any signs of symptomatic hemangioma such as early satiety or abdominal fullness. Furthermore she has no signs of liver disease. PLAN: Repeat MRI abdomen in 6-12 months with a local provider. If hemangioma stable in size, then no further GI follow up recommended. I personally spent over half of total 30 minutes in counseling and discussion with the patient and coordination of care as described above. PATIENT EDUCATION Patient ready to learn, learning preferences including listening. Explained diagnosis and treatmentplan; patient expressed understanding of the content. Patient was seen and examined with Licensed Bondsman, Dr. Waldo Benjamin. Plan and case discussed with Licensed Bondsman, patient and, when appropriate, patient's healthcare proxy and/or family member. All verbalized understanding and agreement with plan as outlined above. Thaddeus Cosme M.D., Ph.D., PGY-4 Fellow, Division of Gastroenterology and Hepatology Pager [phone] 04/07/2022 Thank you for allowing us to participate in the care of the patient. Please feel free to page or message with any questions or concerns. SERVICES PROFESSIONAL * Waldo Benjamin M.D. - 04/07/2022 2:10 PM CST SUBJECTIVE HISTORY OF PRESENT ILLNESS I have seen Henny Rivas and concur with the exam as outlined by Dr. Thaddeus Cosme. Additionally, we discussed the case, and I concur with his assessment. In brief, this is a 41-year-old lady who was referred for our opinion on management of hemangioma. On exam, I concur with the isaac findings outlined by Dr. Cosme. ASSESSMENT / PLAN #1 Hemangioma It is on the larger side but quite clear from the double imaging that has been done here at [facility]. Given its size, it would be reasonable to repeat a cross-sectional imaging study in 1 year's time. This can be done by her primary team. We can be contacted if there is interval growth at that time. Waldo Benjamin M.D. CT CT Job ID: [id number] SERVICES PROFESSIONAL documented in this encounter Plan of Treatment Not on file documented as of this encounter Visit Diagnoses Diagnosis Mass Hepatic- Primary documented in this encounter Additional Health Concerns Assessment Noted Time PHQ-9 Depression Total Score: 3 04/23/19 22 8:30 AM WEB SERVICES PROFESSIONAL documented as of this encounter Care Teams Sound Technician Relationship Specialty Start Date End Date Elsewhere, Pcp PCP - General Internal Medicine 01/07/22 documented as of this encounter
--- OUTSIDE RECORDS SUMMARY | 2023-04-06 19:25 | XMS_ITS | Encounter Summary ---
Author Name Unknown Organization [facility] Address [address] [place] [address] Care Team Providers Care It Investment/Portfolio Manager Name Role Phone Elsewhere, Pcp Primary Care Provider Unavailabl e Reason for Visit * Reason Comments Allergic Reaction After increasing the dose Zoloft from 50 mg to 75 mg dose patient felt palpitations and not feeling good.No rashes. Encounter Details Date Type Department Care Team (Late st Contact Info) Description 06/09/2022 3:30 PM CDT Office Visit Urgent Care, [facility], in [place], [place] [address] [place] [phone] Lela Aguiar, PSonaASona-C. [address] [place] [phone] Anxiety (Primary Dx); Palpitations Discharge Disposition: Home or Self Care Social [...] How often do you attend chur or baptist services? 1 to 4 times per year 04/03/2022 Do you belong to any clubs o r organizations such as evangelical groups, unions, fraternal or athletic groups, or [...] Answer Date Recorded PHQ-2 Score 0 12/10/2021 [facility] - Occupational Stress [...] Sign Reading Time Taken Comments Blood Pressure 138/89 06/09/2022 3:31 PM CDT Pulse 89 06/09/2022 3:31 PM CDT Temperature 37 ??C (98.6 ??F) 06/09/2022 3:31 PM CDT Respiratory Rate 18 06/09/2022 3:31 PM CDT Oxygen Saturation 100% 06/09/2022 3:31 PM CDT Inhaled Oxygen Concentration - - Weight 104 kg (228 lb 13.4 oz) 06/09/2022 3:31 P M CDT Height 170.7 cm (5' 7.2) 06/09/2022 3:31 PM CDT Body Mass Index 35.63 06/09/2022 3:31 PM CDT documented in this encounter Progress Notes * Lela Aguiar P.A.-C. - 06/09/2022 3:30 PM CDT SUBJECTIVE CHIEF COMPLAINT / REASON FOR VISIT Henny Rivas is a 41 y.o. female who presents for evaluation of Allergic Reaction (After increasing the dose zoloft from 50mg to75mg dose patient felt palpitations and not feeling good.No rashes.). HISTORY OF PRESENT ILLNESS Patient had presented to the urgent care today for evaluation of sensation of feeling lightheaded, anxious, and having palpitations, states she is not feeling right. She denies chest pain. She denies cough, congestion, fever or other URI symptoms. No urinary symptoms. No diarrhea. She is currently menstruating. Has felt nauseous but no vomiting. Patient states that she is concerned about possible reaction to her medications Zoloft. States that she had increasedher Zoloft medication from 50-75 mg a week ago. She has been on the medication for about a month. Patient states that she is concerned about possibility of serotonin syndrome. She is inquiring about having serotonin level be checked today. Had discussed with patient that this is not a lab that we would order through urgent care as medication recommendations and dosage changes would need to be addressed with the prescribing provider. Patient had mentioned that her primary care provider was out of office for 3 weeks, she had not reach out to see if there was a provider covering for them in their absence. Patient is very anxious during visit, which seems to increase as visit progresses. She becomes tearful. Allergic Reaction REVIEW OF SYSTEMS REVIEW OF SYSTEMS OBJECTIVE Vitals: 06/09/22 1531 BP: 138/89 Pulse: 89 Resp: 18 Temp: 37 ??C SpO2: 100% Active Ambulatory Problems Diagnosis Date Noted Fibromyalgia 02/12/2021 Headache Benign 02/12/2021 Rhinitis Allergic 04/12/2006 Morbid Obesity Body Mass Index 40.0-44.9 Adult ([facility]) 06/05/2021 Bleeding Postcoital 01/30/2022 Resolved Ambulatory Problems Diagnosis Date Noted No Resolved Ambulatory Problems Past Medical History: Diagnosis Date Eczema ongoing - sensitive skin Current Outpatient Medications on File Prior to Visit Medication Sig Dispense Refill acetaminophen (TYLENOL) 500 mg capsule Take by mouth every 6 (six) hours as needed for pain. amoxicillin-pot clavulanate (AUGMENTIN) 875-125 mg per tablet Take 1 tablet by mouth every 12 (twelve) hours for 10 days. 20 tablet 0 betamethasone dipropionate (DIPROLENE) 0.05 % ointment APPLY TOPICALLY TO HANDS TWICE A DAY FOR 2 WEEKS THEN 2 WEEKS OFF cetirizine (ZyrTEC) 10 mg tablet Take 10 mg by mouth 2 (two) times a day as needed. For allergies cholecalciferol (VITAMIN D3) 50 mcg (2,000 Unit) tablet Take 50 mcg by mouth daily. cyclobenzaprine (FLEXERIL) 10 mg tablet Take 1 tablet (10 mg total) by mouth 3 (three) times a day as needed for muscle spasms for up to 10 days. for muscle spams 30 tablet 0 eflornithine (Vaniqa) 13.9 % cream Vaniqa 13.9 % topical cream fluticasone propionate (FLONASE) 50 mcg/actuation nasal spray [...] MAXIMUM OF 3200 MG IN 24 HOURS. metFORMIN (GLUCOPHAGE) 500 mg tablet TAKE 1 TABLET 3 TIMES A DAY BY ORAL ROUTE AFTER MEALS. methylPREDNISolone (MEDROL DOSEPAK) 4 mg tablet Follow package directions. 21 tablet 0 mometasone (ELOCON) 0.1 % ointment as needed. multivitamin tablet Take 1 tablet by mouth daily. omeprazole (PriLOSEC) [address] capsule Take 20 mg by mouth daily. sertraline (ZOLOFT) 50 mg tablet Take 50 mg by mouth daily. spironolactone (ALDACTONE) 50 mg tablet Take 1 tablet (50 mg total) by mouth daily. 30 tablet 0 traMADoL (ULTRAM) 50 mg tablet TAKE 1-2 TABLETS (50-100MG) BY MOUTH EVERY 6 HOURS NEEDED FOR PAIN No current facility-administered medications on file prior to visit. PHYSICAL EXAM Vitals reviewed. Constitutional Appearance: Normal appearance. HENT Head: Normocephalic and atraumatic. Right Ear: Tympanic membrane, ear canal and external ear normal. Left Ear: Tympanic membrane, ear canal and external ear normal. Nose: Nose normal. Mouth/Throat: Mouth: Mucous membranes are moist. Pharynx: Oropharynx is clear. No oropharyngeal exudate or posterior oropharyngeal erythema. Eyes Extraocular Movements: Extraocular movements intact. Conjunctiva/sclera: Conjunctivae normal. Pupils: Pupils are equal, round, and reactive to light. Cardiovascular Rate and Rhythm: Normal rate and regular rhythm. Heart sounds: Normal heart sounds. Pulmonary Effort: Pulmonary effort is normal. No respiratory distress. Breath sounds: Normal breath sounds. No stridor. No wheezing, rhonchi or rales. Abdominal Palpations: Abdomen is soft. Tenderness: There is no abdominal tenderness. There is no guarding. Musculoskeletal General: No swelling. Cervical back: Neck supple. Skin Findings: No rash. Neurological General: No focal deficit present. Mental Status: She is alert. Cranial Nerves: No cranial nerve deficit. Motor: No weakness. Gait: Gait normal. Psychiatric Comments: Patient is very anxious and tearful. ASSESSMENT / PLAN Diagnosis Plan 1. Anxiety 2. Palpitations Patient has normal physical examination. Had discussed with the patient proceeding today with labs including CBC, CMP and EKG in urgent care. Findings and history are not consistent with serotonin syndrome. Pt does appear anxious and possibly could be having a panic attack. I had upon patient's request checked into obtaining a serotonin level lab had informed me that thisis a test that needs to be sent to [facility] and has a 4 day turnaround time. Patient is not wanting to proceed with recommended workup today. She would asked if she could go tothe ED to get something to help her with her symptoms. Patient appears to becoming increasingly anxious and starts to become tearful during visit. Had advised patient that we could proceed with recommended workup in urgent care, if she felt she needed further evaluation and possibly something for anxiety that the ED is also available. Shared decision-making with the patient that this time she feels more comfortable being evaluated in the ED. At this time patient is choosing to have further evaluation in ED. Electronically signed by: Lela Aguiar P.A.-C. 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
== END 2023-04-05 19:15 | disposition home or self-care (01) ==
LOC: NFLDREF 04-06 19:18
PROVIDERS: PCP Family Medicine; Referring Provider Family Medicine; Visit Provider Nurse Practitioner Family
DX: R10.9 Unspecified abdominal pain (principal)
CPT/HCPCS: 87086

== ENCOUNTER 2023-04-09 09:20 | Outpatient (CLI) | payer OTHER, SELFPAY ==
--- OUTSIDE RECORDS SUMMARY | 2023-04-12 10:27 | XMS_ITS | Clinical Summary ---
Author Name Unknown Organization [facility] Address [address] [place] [address] Care Team Providers Care Manager Of Purchasing Name Role Phone Elsewhere, Pcp Primary Care Provider Unavailabl e Source Comments Patient records contain information from all sites at [facility]. For routine questions regarding patient records, call [phone] during business hours, M-F 8:00 AM - 5:00 PM Central Time. Record requests for emergency care only can be directed to [phone] at any time.[facility] Allergies No known active allergies Medications [...] for cough. 12 capsule 0 03/10/2023 Active dicyclomine (BENTYL) 20 mg tablet Take 1 tablet (20 mg total) by mouth 4 (four) times a day for 10 days. 40 tablet 0 03/08/2023 ondansetron ODT (ZOFRAN-ODT) 4 mg disintegrating tablet [...] 7 days. 30 tablet 0 03/27/2023 4 ciprofloxacin (CIPRO) 500 mg tabletIndications:U rinary Tract Infection Site Not Specified Take 1 tablet (500 mg total) by mouth 2 (two) times a day for 7 days. 14 tablet 0 03/30/2023 4 Active Problems Problem Noted Date Diagnosed Date Bleeding Postcoital 01/30/2022 Morbid Obesity Body Mass Index 40.0-44.9 Adult 0 06/05/2021 Fibromyalgia 02/12/2021 Headache Benign 02/12/2021 Rhinitis Allergic 04/12/2006 Overview: Problem list name updated by automated process. Provider to review Encounters Date Type Department Care Team Description 03/30/2023 Orders Only Urgent Care, [facility], in [place], [place] [address] [place] [address] Mario Valle P.A.-[place] Urinary Tract Infection Site Not Specified (Primary Dx) 03/27/2023 10:14 AM SCREW MACHINE SET UP OPERATOR TOOL - 03/27/2023 11:59 PM SCREW MACHINE SET UP OPERATOR TOOL Hospital Encounter Department of Radiology in [place], [place] [address] [facility] [address] Mario Valle P.A.-CSona Abdominal Pain Discharge Disposition: Home or Self Care 03/27/2023 9:00 AM SCREW MACHINE SET UP OPERATOR TOOL Office Visit Urgent Care, [facility], in [place], [place] [address] [facility] [address] Mario Valle P.A.-C. Abdominal Pain (Primary Dx) Discharge Disposition: Home or Self Care 03/25/2023 9:23 AM SCREW MACHINE SET UP OPERATOR TOOL - 03/25/2023 11:59 PM [facility] Hospital Encounter Department of Radiology, [facility], in [place], [place] [address] [place] [address] Ronal Henderson M.D. Johnson, David W, M.D. Pain Left Lower Quadrant Discharge Disposition: Home or Self Care 03/12/2023 8:27 AM SCREW MACHINE SET UP OPERATOR TOOL - 03/12/2023 9:04 AM [facility] Emergency Department [address] [place] [phone] Wendy Calzada D.O. Dysphagia (Primary Dx); Foreign Body Swallowed Initial Discharge Disposition: Home or Self Care 03/11/2023 8:53 PM SCREW MACHINE SET UP OPERATOR TOOL - 03/12/2023 2:30 AM [facility] Emergency [facility] [address] [place] [phone] Boyd Lynn M.D. Lightheadedness (Primary Dx) Discharge Disposition: Home or Self Care 03/10/2023 8:44 AM SCREW MACHINE SET UP OPERATOR TOOL - 03/10/2023 11:30 AM [facility] Emergency Department [address] [place] [phone] Jesus Manuel Hensley M.D. Influenza Like Illness (Primary Dx); Dehydration; Hypokalemia Discharge Disposition: Home or Self Care 03/08/2023 1:52 PM SCREW MACHINE SET UP OPERATOR TOOL - 03/08/2023 4:01 PM [facility] Emergency [facility] Emergency Department [address] [place] [phone] Ronal Henderson M.D. Pain Left Lower Quadrant (Primary Dx); Pain Left Upper Quadrant; Abdominal Pain Discharge Disposition: Home or Self Care 03/08/2023 Nurse Triage [facility] in [place], [place] [address] [facility] [place] [phone] Suha Lea R.N. Med Question 03/02/2023 Clinical Communication Division of Gastroenterology in [place], [place] [address] [place] [address] Thaddeus Cosme 02/15/2023 1:45 PM SCREW MACHINE SET UP OPERATOR TOOL Office Visit Urgent Care, [facility], in [place], [place] [address] [place] [phone] Lela Aguiar P.A.-C. Pain Epigastric (Primary Dx) Discharge Disposition: Home or Self Care from Last 3 Months Immunizations Name Administration Dates Next Due 4vHPV (discontinued) 01/09/2008 9vHPV 01/09/2008 Influenza TIV (IM) 11/22/2017, 3,01/09/2008,2006 Influenza, Injectable, Mdck, Preservative Free, Quadrivalent 11/30/2019 Influenza, Seasonal, Injectable 03/18/2012,01/08,04/15/2006 SARS-COV-2 (COVID-19) - MODERNA(Discontinued) 06/27/2020,05/29/2020 Tdap 07/23/2020, 8,01/15/2014,2006 influenza vaccine quad (FLUZONE/FLUARIX) (6 months and older)(PF) 11/23/2018,11/22/2017 Family History Medical History Relation Name Comments Diabetes Father Jesus Kumar Hyperlipidemia Father Jesus Kumar Hypertension Father Jesus Kumar Idiopathic polyneuropathy Mother Ewelina Kumar Unexplained Mother Ewelina Kumar Coronary artery disease Paternal Grandfather Angel garcia Relation Name Status Comments Father Jesus Kumar Alive Mother Ewelina Kumar Paternal Grandfather Angel Kumar Social History Tobacco Use Types Packs/Day Years [...] often do you attend chur ch or shinto services? 1 to 4 times per year 04/03/2022 Do you belong to any clubs o r organizations such as voodoo groups, unions, fraternal or athletic groups, or [...] Answer Date Recorded PHQ-2 Score 0 12/10/2021 [facility] [place] of Occupat ional Health - Occupational Stress [...] Comments Blood Pressure 117/81 03/27/2023 8:42 AM SCREW MACHINE SET UP OPERATOR TOOL Pulse 94 03/27/2023 8:42 AM SCREW MACHINE SET UP OPERATOR TOOL Temperature 36.2 ??C (97.2 ??F) 03/27/2023 8:42 AM CS T Respiratory Rate 16 03/12/2023 8:34 AM SCREW MACHINE SET UP OPERATOR TOOL Oxygen Saturation 98% 03/27/2023 8:42 AM SCREW MACHINE SET UP OPERATOR TOOL Inhaled Oxygen Concentration - - Weight 95.8 kg (211 lb 4.8 oz) 03/27/2023 8:42 A M SCREW MACHINE SET UP OPERATOR TOOL Height 169.4 cm (5' 6.69) 03/27/2023 8:42 AM CS T Body Mass Index 33.4 03/27/2023 8:42 AM SCREW MACHINE SET UP OPERATOR TOOL Plan of Treatment Health Maintenance Due Date Last Done Comments HIV Screening 1981 Hepatitis B Vaccines (1 of 3 - 3-dose series) 1981 Hepatitis C Screening 1981 HPV Vaccines (2 - 3-dose series) 02/06/2008 01/09/2008, 01/09/2008 COVID-19 Vaccine ( season) 2022 04/02/2022, 02/26/2021, [...] AB, IGA, S STAT 03/27/2023 11:44 AM SCREW MACHINE SET UP OPERATOR TOOL CELIAC DISEASE COMPREHENSIVE CASCADE STAT 03/27/2023 11:44 AM SCREW MACHINE SET UP OPERATOR TOOL Abdominal Pain CT ABDOMEN PELVIS WITH IV CONTRAST RAD - Routine (most inpatients and all outpatients) 03/27/2023 10:35 AM SCREW MACHINE SET UP OPERATOR TOOL Abdominal Pain TEST, POCT, U (LAB) STAT 03/27/2023 10:03 AM SCREW MACHINE SET UP OPERATOR TOOL Abdominal Pain HC URINALYSIS AUTO W MICRO STAT 03/27/2023 10:03 AM SCREW MACHINE SET UP OPERATOR TOOL URINALYSIS WITH MICROSCOPIC IF INDICATED, U STAT 03/27/2023 10:03 AM SCREW MACHINE SET UP OPERATOR TOOL Abdominal Pain BACTERIAL CULTURE, AEROBIC + SUSC, URINE STAT 03/27/2023 10:03 AM SCREW MACHINE SET UP OPERATOR TOOL Abdominal Pain LIPASE, S/P STAT 03/27/2023 9:32 AM SCREW MACHINE SET UP OPERATOR TOOL Abdominal Pain C-REACTIVE PROTEIN (CRP), S/P STAT 03/27/2023 9:32 AM SCREW MACHINE SET UP OPERATOR TOOL Abdominal Pain COMPREHENSIVE METABOLIC PANEL, S/P STAT 03/27/2023 9:32 AM SCREW MACHINE SET UP OPERATOR TOOL Abdominal Pain CBC WITH DIFFERENTIAL, B STAT 03/27/2023 9:32 AM SCREW MACHINE SET UP OPERATOR TOOL Abdominal Pain FL ESOPHAGRAM SINGLE CONTRAST RAD - Routine (most inpatients and all outpatients) 03/25/2023 10:08 AM SCREW MACHINE SET UP OPERATOR TOOL Pain Left Lower Quadrant TROPONIN T, 2H/6H, 5TH GEN, P Timed 03/12/2023 12:41 AM SCREW MACHINE SET UP OPERATOR TOOL TROPONIN T, BASELINE, 5TH GEN, P STAT 03/11/2023 10:57 PM SCREW MACHINE SET UP OPERATOR TOOL BASIC METABOLIC PANEL, S/P STAT 03/11/2023 10:57 PM SCREW MACHINE SET UP OPERATOR TOOL CBC WITH DIFFERENTIAL, B STAT 03/11/2023 10:57 PM SCREW MACHINE SET UP OPERATOR TOOL ECG STAT 03/10/2023 10:21 AM SCREW MACHINE SET UP OPERATOR TOOL DX CHEST AP OR PA AND LATERAL 2 VIEWS RAD - Semiurgent (Fast; most ED patients; some inpatients) 03/10/2023 9:37 AM SCREW MACHINE SET UP OPERATOR TOOL INFLUENZA A, B, RSV, PCR, POCT STAT 03/10/2023 8:49 AM SCREW MACHINE SET UP OPERATOR TOOL SARS CORONAVIRUS 2, PCR RAPID, V STAT 03/10/2023 8:49 AM SCREW MACHINE SET UP OPERATOR TOOL CBC WITH DIFFERENTIAL, B STAT 03/10/2023 8:39 AM SCREW MACHINE SET UP OPERATOR TOOL BASIC METABOLIC PANEL, S/P STAT 03/10/2023 8:39 AM SCREW MACHINE SET UP OPERATOR TOOL LIPASE, S/P STAT 03/08/2023 2:50 PM SCREW MACHINE SET UP OPERATOR TOOL CBC WITH DIFFERENTIAL, B STAT 03/08/2023 2:50 PM SCREW MACHINE SET UP OPERATOR TOOL COMPREHENSIVE METABOLIC PANEL, S/P STAT 03/08/2023 2:50 PM SCREW MACHINE SET UP OPERATOR TOOL URINALYSIS WITH MICROSCOPIC STAT 03/08/2023 2:43 PM SCREW MACHINE SET UP OPERATOR TOOL BASIC METABOLIC PANEL, S/P STAT 02/15/2023 2:35 PM SCREW MACHINE SET UP OPERATOR TOOL Pain Epigastric CBC WITH DIFFERENTIAL, B STAT 02/15/2023 2:35 PM SCREW MACHINE SET UP OPERATOR TOOL Pain Epigastric from Last 3 Months Results * Celiac Disease Comprehensive [place] (03/27/2023 11:44 AM SCREW MACHINE SET UP OPERATOR TOOL) HLA-DQA1 Locus Molecular 01:03, 05 Not Applicable 03/31/2023 2:18 PM SCREW MACHINE SET UP OPERATOR TOOL DBB8 HLA-DQB1 Locus Molecular 03:03, 06:03 Not Applicable 03/31/2023 2:18 PM SCREW MACHINE SET UP OPERATOR TOOL DBB8 Comment: DQ Serologic Equivalent: 9, 6 Celiac Gene Pairs Present? No 03/31/2023 2:18 PM SCREW MACHINE SET UP OPERATOR TOOL DBB8 Comment: Method: Molecular typing of HLA [...] if ethnic specific resolution is required. CLIA: [id number] ??CLIA Lens Coater: KLAUS MANCUSO MD,PhD Immunoglobulin A (IgA), S 122 61 - 356 mg/dL 03/29/2023 2:59 PM SCREW MACHINE SET UP OPERATOR TOOL [facility] Celiac Disease Interpretation See Comment: Permissive genes absent and negative serology. Celiac disease extremely unlikely. 03/31/2023 10:53 PM SCREW MACHINE SET UP OPERATOR TOOL [facility] Blood (Blood, Venous) 03/27/2023 11:44 AM SCREW MACHINE SET UP OPERATOR TOOL 03/29/2023 8:00 AM SCREW MACHINE SET UP OPERATOR TOOL Narrative [facility] - 03/31/2023 10:53 PM SCREW MACHINE SET UP OPERATOR TOOL Specimen Information: Specimen ID: [id number] Specimen Type: Blood Specimen Collection Start Date: 03/27/2023 11:44 AM Specimen Received Date: 03/29/2023 ??8:00 AM Specimen ID: [id number] Specimen Type: Blood Specimen Collection Start Date: 03/27/2023 11:44 AM Specimen Received Date: 03/29/2023 ??6:42 AM Specimen ID: [id number] Specimen Type: Blood Specimen Collection Start Date: 03/27/2023 11:44 AM Specimen Received Date: 03/29/2023 ??7:40 AM Mario Valle P.A.-C. LAB BLOOD N ON ADD-ON [facility] [address] [place] [address] DBB8 [facility] [address] [place] [address] [facility] [address] [place] [address] [place] [facility] [place] [address] * tTG (Tissue Transglutaminase), Antibody, IgA (03/27/2023 11:44 AM SCREW MACHINE SET UP OPERATOR TOOL) Tissue Transglutaminase Ab, IgA, S <1.2 <4.0 (Negative ) U/mL 03/30/2023 12:34 PM SCREW MACHINE SET UP OPERATOR TOOL [facility] Blood 03/27/2023 11:4 4 AM SCREW MACHINE SET UP OPERATOR TOOL 03/29/2023 3:34 PM SCREW MACHINE SET UP OPERATOR TOOL Mario Valle P.A.-C. LAB BLOOD A DD-ON [facility] [address] [place] [address] [place] [id number] [place] [address] * CT Abdomen Pelvis with IV Contrast (03/27/2023 10:35 AM SCREW MACHINE SET UP OPERATOR TOOL) Anatomical Region Laterality Modality Abdomen, Pelvis, Abdominal R ST LOS, Abdominal ARZ LOS, Abdominal FLA LOS N/A Computed Tomography 03/27/2023 10:3 9 AM SCREW MACHINE SET UP OPERATOR TOOL Impressions 03/27/2023 11:01 AM SCREW MACHINE SET UP OPERATOR TOOL 1. Normal-appearing appendix. 2. No acute intra-abdominal/pelvic pathology, no CT findings to explain the patient's symptoms of right lower quadrant abdominal pain. Narrative 03/27/2023 11:01 AM SCREW MACHINE SET UP OPERATOR TOOL EXAM: CT ABDOMEN PELVIS WITH IV CONTRAST [...] appendix in the right lower quadrant on [id number] of series 3. No small bowel or [...] with Microscopic if Indicated (03/27/2023 10:03 AM SCREW MACHINE SET UP OPERATOR TOOL) Source Urine, Urine, Midstream 03/27/2023 10:17 AM SCREW MACHINE SET UP OPERATOR TOOL NPR[facility] Clarity Clear Clear 03/27/2023 10:20 AM SCREW MACHINE SET UP OPERATOR TOOL NPRG Color Yellow 03/27/2023 10:20 AM SCREW MACHINE SET UP OPERATOR TOOL NPRG Comment: ----REFERENCE VALUE---- Colorless Yellow Chasity Blood Negative Negative 03/27/2023 10:20 AM SCREW MACHINE SET UP OPERATOR TOOL NPRG Nitrite Negative Negative 03/27/2023 10:20 AM SCREW MACHINE SET UP OPERATOR TOOL NPR[facility] Leukocyte Esterase Small(A) Negative 03/27/2023 10:20 AM SCREW MACHINE SET UP OPERATOR TOOL NPR[facility] Protein Negative mg/dL 03/27/2023 10:20 AM SCREW MACHINE SET UP OPERATOR TOOL NPRG Comment: ----REFERENCE VALUE---- Negative Trace Glucose Negative Negative mg/dL 03/27/2023 10:20 AM SCREW MACHINE SET UP OPERATOR TOOL NPRG Ketones, QI(U) Negative Negative mg/dL 03/27/2023 10:20 AM SCREW MACHINE SET UP OPERATOR TOOL NPRG Bilirubin Negative Negative 03/27/2023 10:20 AM SCREW MACHINE SET UP OPERATOR TOOL NPRG pH 7.0 5.0 - 8.0 03/27/2023 10:20 AM SCREW MACHINE SET UP OPERATOR TOOL NPRG Specific Emeigh 1.015 1.001 - 1.035 03/27/2023 10:20 AM SCREW MACHINE SET UP OPERATOR TOOL NPRG Urobilinogen 0.2 0.2 - 1.0 mg/dL 03/27/2023 10:20 AM SCREW MACHINE SET UP OPERATOR TOOL NPRG Urine (Urine, Midstream) 03/27/2023 10:03 AM SCREW MACHINE SET UP OPERATOR TOOL 03/27/2023 10:17 AM SCREW MACHINE SET UP OPERATOR TOOL Mario Valle P.A.-C. LAB URINE O RDERABLES [facility] [address] [place] [address], [place] NPRG [place] [address] [place] [address] * (ABNORMAL) Microscopic Manual (03/27/2023 10:03 AM SCREW MACHINE SET UP OPERATOR TOOL) White Blood Cells Occ-3 /hpf 03/27/2023 10:32 AM SCREW MACHINE SET UP OPERATOR TOOL NPRG Comment: ----REFERENCE VALUE---- Males: 0-3 Females: 0-10 Unknown: 0-10 Red Blood Cells None Seen 0 - 2 /hpf 03/27/2023 10:32 AM SCREW MACHINE SET UP OPERATOR TOOL NPRG Squamous Cells Occ-3 /hpf 03/27/2023 10:32 AM SCREW MACHINE SET UP OPERATOR TOOL NPRG Bacteria Present(A) None Seen 03/27/2023 10:32 AM SCREW MACHINE SET UP OPERATOR TOOL NPRG Urine 03/27/2023 10:0 3 AM SCREW MACHINE SET UP OPERATOR TOOL 03/27/2023 10:17 AM SCREW MACHINE SET UP OPERATOR TOOL Mario Valle P.A.-C. LAB URINE O RDERABLES [facility] [address] [place] [address], [facility] NPRG [place] [address] [place] [address] * (ABNORMAL) Bacterial Culture, Aerobic + Susceptibility, Urine (03/27/2023 10:03 AM SCREW MACHINE SET UP OPERATOR TOOL) Urine Culture with mixed microbiota(A) 03/30/2023 6:38 AM SCREW MACHINE SET UP OPERATOR TOOL MKTO Urine Culture PSEUDOMONAS AERUGINOSA >100,000 cfu/mL (A) 03/30/2023 6:38 AM SCREW MACHINE SET UP OPERATOR TOOL MKTO Urine Culture KLEBSIELLA PNEUMONIAE COMPLEX 10,000-100,000 cfu/mL (A) 03/30/2023 6:38 AM SCREW MACHINE SET UP OPERATOR TOOL MKTO Urine (Urine, Midstream) 03/27/2023 10:03 AM SCREW MACHINE SET UP OPERATOR TOOL 03/27/2023 4:21 PM SCREW MACHINE SET UP OPERATOR TOOL Comment:Specimen Source Site : Urine Narrative Organism [...] P.A.-C. LAB MICROBI OLOGY - GENERAL ORDERABLES [facility] [address] [place] [address], [facility] MKTO [facility] [place] [address] [place] [address] * Test, POCT, Urine (Lab) (03/27/2023 10:03 AM SCREW MACHINE SET UP OPERATOR TOOL) Test, POCT, U Negative 03/27/2023 10:25 AM SCREW MACHINE SET UP OPERATOR TOOL NPRG Urine (Urine, Midstream) 03/27/2023 10:03 AM SCREW MACHINE SET UP OPERATOR TOOL 03/27/2023 10:17 AM SCREW MACHINE SET UP OPERATOR TOOL Mario Valle P.A.-C. LAB POCT OR DERABLES - DEVICE [facility] [address] [place] [address], [facility] NPRG [facility] [address] [place] [address] * CBC with Differential, Blood (03/27/2023 9:32 AM SCREW MACHINE SET UP OPERATOR TOOL) Only the most recent of5 resultswithin the time period is included. Hemoglobin 13.9 11.6 - 15.0 g/dL 03/27/2023 9:41 AM SCREW MACHINE SET UP OPERATOR TOOL NPRG Hematocrit 42.7 35.5 - 44.9 % 03/27/2023 9:41 AM SCREW MACHINE SET UP OPERATOR TOOL NPRG Erythrocytes 4.95 3.92 - 5.13 x10(12)/L 03/27/2023 9:41 AM SCREW MACHINE SET UP OPERATOR TOOL NPRG MCV 86.3 78.2 - 97.9 fL 03/27/2023 9:41 AM SCREW MACHINE SET UP OPERATOR TOOL NPRG RBC Distrib Width 14.7 12.2 - 16.1 % 03/27/2023 9:41 AM SCREW MACHINE SET UP OPERATOR TOOL NPRG Platelet Count 278 157 - 371 x10(9)/L 03/27/2023 9:41 AM SCREW MACHINE SET UP OPERATOR TOOL NPRG Leukocytes 7.4 3.4 - 9.6 x10(9)/L 03/27/2023 9:41 AM SCREW MACHINE SET UP OPERATOR TOOL NPRG Neutrophils 5.52 1.56 - 6.45 x10(9)/L 03/27/2023 9:41 AM SCREW MACHINE SET UP OPERATOR TOOL NPRG Lymphocytes 1.09 0.95 - 3.07 x10(9)/L 03/27/2023 9:41 AM SCREW MACHINE SET UP OPERATOR TOOL NPRG Monocytes 0.65 0.26 - 0.81 x10(9)/L 03/27/2023 9:41 AM SCREW MACHINE SET UP OPERATOR TOOL NPRG Eosinophils 0.16 0.03 - 0.48 x10(9)/L 03/27/2023 9:41 AM SCREW MACHINE SET UP OPERATOR TOOL NPRG Basophils 0.01 0.01 - 0.08 x10(9)/L 03/27/2023 9:41 AM SCREW MACHINE SET UP OPERATOR TOOL NPRG Blood (Blood, Venous) 03/27/2023 9:32 AM SCREW MACHINE SET UP OPERATOR TOOL 03/27/2023 9:37 AM SCREW MACHINE SET UP OPERATOR TOOL Mario Valle P.A.-C. LAB BLOOD A DD-ON Performing Organization Address City/[facility]/ZIP Co de Phone Number [facility] [address] [place] [address], [facility] NPRG [place] [address] [place] [address] * (ABNORMAL) CRP (C-Reactive Protein) (03/27/2023 9:32 AM SCREW MACHINE SET UP OPERATOR TOOL) C-Reactive Protein (CRP), P 15.2(H) <5.0 mg/L 03/27/2023 10:02 AM SCREW MACHINE SET UP OPERATOR TOOL NPRG Blood (Blood, Venous) 03/27/2023 9:32 AM SCREW MACHINE SET UP OPERATOR TOOL 03/27/2023 9:37 AM SCREW MACHINE SET UP OPERATOR TOOL Mario Valle P.A.-C. LAB BLOOD A DD-ON [facility] [address] [place] [address], [facility] NPRG [place] [address] [place] [address] * Lipase (03/27/2023 9:32 AM SCREW MACHINE SET UP OPERATOR TOOL) Only the most recent of2 resultswithin the time period is included. Lipase, P 36 13 - 60 U/L 03/27/2023 10:02 AM SCREW MACHINE SET UP OPERATOR TOOL NPRG Blood (Blood, Venous) 03/27/2023 9:32 AM SCREW MACHINE SET UP OPERATOR TOOL 03/27/2023 9:37 AM SCREW MACHINE SET UP OPERATOR TOOL Mario Valle P.A.-C. LAB BLOOD A DD-ON [facility] [address] [place] [address], [facility] NPRG [facility] [address] [place] [address] * Comprehensive Metabolic Panel (03/27/2023 9:32 AM SCREW MACHINE SET UP OPERATOR TOOL) Only the most recent of2 resultswithin the time period is included. Potassium, P 4.0 3.6 - 5.2 mmol/L 03/27/2023 10:02 AM SCREW MACHINE SET UP OPERATOR TOOL NPRG Sodium, P 139 135 - 145 mmol/L 03/27/2023 10:02 AM SCREW MACHINE SET UP OPERATOR TOOL NPRG Chloride, P 105 98 - 107 mmol/L 03/27/2023 10:02 AM SCREW MACHINE SET UP OPERATOR TOOL NPRG Bicarbonate, P 22 22 - 29 mmol/L 03/27/2023 10:02 AM SCREW MACHINE SET UP OPERATOR TOOL NPRG Anion Gap, P 12 7 - 15 03/27/2023 10:02 AM SCREW MACHINE SET UP OPERATOR TOOL NPRG BUN (Blood Urea Nitrogen), P 8 6 - 21 mg/dL 03/27/2023 10:02 AM SCREW MACHINE SET UP OPERATOR TOOL NPRG Creatinine 0.87 0.59 - 1.04 mg/dL 03/27/2023 10:02 AM SCREW MACHINE SET UP OPERATOR TOOL NPRG Estimated GFR (eGFR) 86 >=60 mL/min/BS A 03/27/2023 10:02 AM SCREW MACHINE SET UP OPERATOR TOOL NPRG Comment: Estimated GFR calculated using the 2020 CKD_EPI creatinine equation. Calcium, Total, P 9.1 8.6 - 10.0 mg/dL 03/27/2023 10:02 AM SCREW MACHINE SET UP OPERATOR TOOL NPRG Glucose, P 93 70 - 140 mg/dL 03/27/2023 10:02 AM SCREW MACHINE SET UP OPERATOR TOOL NPRG Protein, Total, P 6.5 6.3 - 7.9 g/dL 03/27/2023 10:02 AM SCREW MACHINE SET UP OPERATOR TOOL NPRG Albumin, P 4.0 3.5 - 5.0 g/dL 03/27/2023 10:02 AM SCREW MACHINE SET UP OPERATOR TOOL NPRG Aspartate Aminotransferase (AST), P 14 8 - 43 U/L 03/27/2023 10:02 AM SCREW MACHINE SET UP OPERATOR TOOL NPRG Alkaline Phosphatase, P 69 35 - 104 U/L 03/27/2023 10:02 AM SCREW MACHINE SET UP OPERATOR TOOL NPRG Alanine Aminotransferase (ALT), P 30 7 - 45 U/L 03/27/2023 10:02 AM SCREW MACHINE SET UP OPERATOR TOOL NPRG Bilirubin, Total, P 0.5 0.0 - 1.2 mg/dL 03/27/2023 10:02 AM SCREW MACHINE SET UP OPERATOR TOOL NPRG Blood (Blood, Venous) 03/27/2023 9:32 AM SCREW MACHINE SET UP OPERATOR TOOL 03/27/2023 9:37 AM SCREW MACHINE SET UP OPERATOR TOOL Mario Valle P.A.-C. LAB BLOOD A DD-ON [facility] [address] [place] [address], [facility] NPRG [facility] [address] [place] [address] * FL Esophagram Single Contrast (03/25/2023 10:08 AM SCREW MACHINE SET UP OPERATOR TOOL) Anatomical Region Laterality Modality Gastro Intestinal, Abdominal RST LOS, Abdominal ARZ LOS, Abdominal FLA LOS N/A Digital Radiography Impressions 03/25/2023 10:13 AM SCREW MACHINE SET UP OPERATOR TOOL Small sliding-type hiatal hernia. No reflux observed. Narrative 03/25/2023 10:13 AM SCREW MACHINE SET UP OPERATOR TOOL EXAM: FL ESOPHAGRAM SINGLE CONTRAST FINDINGS: Normal [...] reflux observed. Ronal Henderson M.D. IMG FLUOROSCOPY AK OCEDURES * Troponin T, 2h/6h, 5th Gen (03/12/2023 12:41 AM SCREW MACHINE SET UP OPERATOR TOOL) Troponin T, 2 hr, 5th gen <6 <=10 ng/L 03/12/2023 1:03 AM SCREW MACHINE SET UP OPERATOR TOOL NPRG 2H Delta 0 ng/L 03/12/2023 1:03 AM SCREW MACHINE SET UP OPERATOR TOOL NPRG 2H Delta Interp Not Changing 03/12/2023 1:03 AM SCREW MACHINE SET UP OPERATOR TOOL NPRG Troponin T, 6 hr, 5th gen CANCELED ng/L 03/12/2023 1:03 AM SCREW MACHINE SET UP OPERATOR TOOL NPRG Comment:Result canceled by t he ancillary. 6H Delta CANCELED ng/L 03/12/2023 1:03 AM SCREW MACHINE SET UP OPERATOR TOOL NPRG Comment:Result canceled by t he ancillary. 6H Delta % CANCELED % 03/12/2023 1:03 AM SCREW MACHINE SET UP OPERATOR TOOL NPRG Comment:Result canceled by t he ancillary. Blood (Blood, Venous) 03/12/2023 12:41 AM SCREW MACHINE SET UP OPERATOR TOOL 03/12/2023 12:43 AM SCREW MACHINE SET UP OPERATOR TOOL Narrative [facility] - 03/12/2023 1:03 AM SCREW MACHINE SET UP OPERATOR TOOL Specimen Information: Specimen ID: [id number] Specimen Type: Blood Specimen Collection Start Date: 03/12/2023 12:41 AM Specimen Received Date: 03/12/2023 12:43 AM Specimen ID: [id number] Specimen Type: Blood Boyd Lynn M.D. LAB BLOOD TROPONIN [facility] [address] [place] [address], [facility] [address] [place] [address] * Troponin T, Baseline, 5th gen (03/11/2023 10:57 PM SCREW MACHINE SET UP OPERATOR TOOL) Troponin T, Baseline, 5th gen <6 <=10 ng/L 03/11/2023 11:50 PM SCREW MACHINE SET UP OPERATOR TOOL NPRG Blood (Blood, Venous) 03/11/2023 10:57 PM SCREW MACHINE SET UP OPERATOR TOOL 03/11/2023 11:01 PM SCREW MACHINE SET UP OPERATOR TOOL Boyd Lynn M.D. LAB BLOOD TROPONIN [facility] [address] [place] [address], [place] NPRG [facility] [address] [place] [address] * Basic Metabolic Panel (03/11/2023 10:57 PM SCREW MACHINE SET UP OPERATOR TOOL) Only the most recent of3 resultswithin the time period is included. Potassium, P 4.0 3.6 - 5.2 mmol/L 03/11/2023 11:25 PM SCREW MACHINE SET UP OPERATOR TOOL NPRG Sodium, P 139 135 - 145 mmol/L 03/11/2023 11:25 PM SCREW MACHINE SET UP OPERATOR TOOL NPRG Chloride, P 104 98 - 107 mmol/L 03/11/2023 11:25 PM SCREW MACHINE SET UP OPERATOR TOOL NPRG Bicarbonate, P 23 22 - 29 mmol/L 03/11/2023 11:25 PM SCREW MACHINE SET UP OPERATOR TOOL NPRG Anion Gap, P 12 7 - 15 03/11/2023 11:25 PM SCREW MACHINE SET UP OPERATOR TOOL NPRG BUN (Blood Urea Nitrogen), P 9 6 - 21 mg/dL 03/11/2023 11:25 PM SCREW MACHINE SET UP OPERATOR TOOL NPRG Creatinine 0.83 0.59 - 1.04 mg/dL 03/11/2023 11:25 PM SCREW MACHINE SET UP OPERATOR TOOL NPRG Estimated GFR (eGFR) >90 >=60 mL/min/BSA 03/11/2023 11:25 PM SCREW MACHINE SET UP OPERATOR TOOL NPRG Comment: Estimated GFR calculated using the 2020 CKD_EPI creatinine equation. Calcium, Total, P 9.6 8.6 - 10.0 mg/dL 03/11/2023 11:25 PM SCREW MACHINE SET UP OPERATOR TOOL NPRG Glucose, P 98 70 - 140 mg/dL 03/11/2023 11:25 PM SCREW MACHINE SET UP OPERATOR TOOL NPRG Blood (Blood, Venous) 03/11/2023 10:57 PM SCREW MACHINE SET UP OPERATOR TOOL 03/11/2023 11:01 PM SCREW MACHINE SET UP OPERATOR TOOL Boyd Lynn M.D. LAB BLOOD ADD-ON [facility] [address] [place] [address], [place] NPRG [facility] [address] [place] [address] * ECG 12 Lead (03/10/2023 10:21 AM SCREW MACHINE SET UP OPERATOR TOOL) Ventricular Rate ECG/Min 73 BPM MUSE AK Interval 132 ms MUSE QRSD Interval 90 ms MUSE QT Interval 416 ms MUSE QTC Interval 458 ms MUSE P [place] 66 degrees MUSE R [place] 14 degrees MUSE T Wave [place] -1 degrees MUSE 03/10/2023 10:2 1 AM SCREW MACHINE SET UP OPERATOR TOOL 03/10/2023 10:42 AM SCREW MACHINE SET UP OPERATOR TOOL Impressions MUSE - 03/10/2023 10:40 AM SCREW MACHINE SET UP OPERATOR TOOL Normal sinus rhythm Nonspecific ST and T wave abnormality When compared with ECG of 07-OCT-2022 12:07, AK interval has increased Reviewed by WHIT Plum[place] Narrative Procedure Note Daquan Hess M.D., M.P.H. - 03/10/2023 IMPRESSION: Normal sinus rhythm Nonspecific ST and T wave abnormality When compared with ECG of 07-OCT-2022 12:07, AK interval has increased Reviewed by WHIT Plum[place] Jesus Manuel Hensley M.D. ECG ORDERABLES MUSE NA * DX Chest AP or PA and Lateral 2 Views (03/10/2023 9:37 AM SCREW MACHINE SET UP OPERATOR TOOL) Anatomical Region Laterality Modality Chest, Thoracic RST LOS, Tho racic ARZ LOS, Thoracic FLA LOS N/A Digital Radiography Impressions 03/10/2023 9:38 AM SCREW MACHINE SET UP OPERATOR TOOL Stable chest, no acute cardiopulmonary disease. Narrative 03/10/2023 9:38 AM SCREW MACHINE SET UP OPERATOR TOOL EXAM: DX CHEST AP OR PA AND [...] 2, PCR Rapid Symptomatic (03/10/2023 8:49 AM SCREW MACHINE SET UP OPERATOR TOOL) Pathologist [facility] SARS CoV-2, PCR, Rapid, V Undetected Undetected 03/10/2023 9:12 AM SCREW MACHINE SET UP OPERATOR TOOL NPRG Comment: ----ADDITIONAL INFORMATION---- This RT-PCR test was performed using the [employer] SARS-CoV-2 and Influenza A/B Reagent assay from [employer], which has received Emergency Use Authorization(EUA) by the U.S. Food and Drug Administration. Fact sheets for this Emergency Use Authorization (EUA) assay can be found at the following links: For Healthcare Providers: https://www.fda.gov/media/864308/download For Patients: https://www.fda.gov/media/297724/download SARS Coronavirus 2, Source, Rapid Swab, Nasopharynx 03/10/2023 8:49 AM SCREW MACHINE SET UP OPERATOR TOOL NPRG Swab (Nasopharynx) 03/10/2023 8:49 AM SCREW MACHINE SET UP OPERATOR TOOL 03/10/2023 8:49 AM SCREW MACHINE SET UP OPERATOR TOOL Jesus Manuel Hensley M.D. LAB MICROBIOLOGY - G ENERAL ORDERABLES [facility] [address] [place] [address], [facility] NPRG [facility] [address] [place] [address] * Influenza A/B and RSV, PCR, Point of Care (03/10/2023 8:49 AM SCREW MACHINE SET UP OPERATOR TOOL) Pathologist [facility] Influenza A, POCT Negative Negative 03/10/2023 8:53 AM SCREW MACHINE SET UP OPERATOR TOOL NPRG Influenza B, POCT Negative Negative 03/10/2023 8:53 AM SCREW MACHINE SET UP OPERATOR TOOL NPRG Resp Syncytial Virus, POCT Negative Negative 03/10/2023 8:53 AM SCREW MACHINE SET UP OPERATOR TOOL NPRG Swab (Nasopharynx) 03/10/2023 8:49 AM SCREW MACHINE SET UP OPERATOR TOOL 03/10/2023 8:49 AM SCREW MACHINE SET UP OPERATOR TOOL Jesus Manuel Hensley M.D. LAB POCT ORDERABLES - DEVICE [facility] [address] [place] [address], [facility] NPRG [facility] [address] [place] [address] * (ABNORMAL) Urinalysis with Microscopic: Urine, Midstream (03/08/2023 2:43 PM SCREW MACHINE SET UP OPERATOR TOOL) Pathologist [facility] Source Urine, Urine, Midstream 03/08/2023 3:00 PM SCREW MACHINE SET UP OPERATOR TOOL [facility] Clarity Clear Clear 03/08/2023 3:00 PM SCREW MACHINE SET UP OPERATOR TOOL [facility] Color Yellow 03/08/2023 3:00 PM SCREW MACHINE SET UP OPERATOR TOOL MKTO Comment: ----REFERENCE VALUE---- Colorless Yellow Chasity Blood Negative Negative 03/08/2023 3:00 PM SCREW MACHINE SET UP OPERATOR TOOL [facility] Nitrite Negative Negative 03/08/2023 3:00 PM SCREW MACHINE SET UP OPERATOR TOOL [facility] Leukocyte Esterase Trace(A) Negative 03/08/2023 3:00 PM SCREW MACHINE SET UP OPERATOR TOOL MK[facility] Protein Negative mg/dL 03/08/2023 3:00 PM SCREW MACHINE SET UP OPERATOR TOOL MK[facility] Comment: ----REFERENCE VALUE---- Negative Trace Glucose Negative Negative mg/dL 03/08/2023 3:00 PM SCREW MACHINE SET UP OPERATOR TOOL MK[facility] Ketone Negative Negative mg/dL 03/08/2023 3:00 PM SCREW MACHINE SET UP OPERATOR TOOL MK[facility] Bilirubin Negative Negative 03/08/2023 3:00 PM SCREW MACHINE SET UP OPERATOR TOOL [facility] pH 8.5(A) 5.0 - 8.0 03/08/2023 3:00 PM SCREW MACHINE SET UP OPERATOR TOOL [facility] Specific Emeigh 1.007 1.001 - 1.035 03/08/2023 3:00 PM SCREW MACHINE SET UP OPERATOR TOOL MK[facility] Urobilinogen 0.2 0.2 - 1.0 mg/dL 03/08/2023 3:00 PM SCREW MACHINE SET UP OPERATOR TOOL [facility] White Blood Cells Occ-3 /hpf 03/08/2023 3:03 PM SCREW MACHINE SET UP OPERATOR TOOL MKTO Comment: ----REFERENCE VALUE---- Males: 0-3 Females: 0-10 Unknown: 0-10 Red Blood Cells None Seen 0 - 2 /hpf 3:03 PM SCREW MACHINE SET UP OPERATOR TOOL MK[facility] Squamous Cells Occ-3 /hpf 03/08/2023 3:03 PM SCREW MACHINE SET UP OPERATOR TOOL [facility] Urine (Urine, Midstream) 03/08/2023 2:43 PM SCREW MACHINE SET UP OPERATOR TOOL 03/08/2023 2:56 PM SCREW MACHINE SET UP OPERATOR TOOL Ronal Henderson M.D. LAB URINE ORDERABL [facility] [address] [place] [address], [facility] MKTO [facility] [place] [address] [place] [address] from Last 3 Months Care Teams Manager Of Purchasing Relationship Specialty Start Date End Date Elsewhere, Pcp PCP - General Internal Medicine 01/07/22
--- OUTSIDE RECORDS SUMMARY | 2023-04-12 10:28 | XMS_ITS | Encounter Summary ---
Author Name Unknown Organization [facility] Address [address] [place] [address] Care Team Providers Care Hide Cleaner Name Role Phone Elsewhere, Pcp Primary Care Provider Unavailabl e Encounter Details Date Type Department Care Team (Late st Contact Info) Description 03/30/2023 Orders Only Urgent Care, [facility], in [place], [place] [address] [place] [phone] Mario Valle, P.A.-C. [address], [place] [phone] Urinary Tract Infection Site Not Specified (Primary [...] week 04/03/2022 How often do you attend [facility] or pentecostal services? 1 to 4 times per year 04/03/2022 Do you belong to any clubs o r organizations such as baptist groups, unions, fraternal or athletic groups, or [...] Answer Date Recorded PHQ-2 Score 0 12/10/2021 [facility] - Occupational [...] place to sleep or slept in a alf (including now)? No 04/03/2022 Depression Answer Date [...] Total Score: 3 04/23/19 22 8:30 AM BRAKE OPERATOR HELPER documented as of this encounter Care Teams Hide Cleaner Relationship Specialty Start Date End Date Elsewhere, Pcp PCP - General Internal Medicine 01/07/22 documented as of this encounter
--- OUTSIDE RECORDS SUMMARY | 2023-04-12 10:28 | XMS_ITS | Encounter Summary ---
Author Name Unknown Organization [facility] Address [address] [place] [address] Care Team Providers Care Nuclear Equipment Test Engineer Name Role Phone Elsewhere, Pcp Primary Care [...] st Contact Info) Description 03/12/2023 8:27 AM MACHINE PLUG SHAPER - 03/12/2023 9:04 AM [facility] [address] [place] [phone] Wendy Calzada D.O. [address] [place] [phone] Dysphagia (Primary Dx); Foreign Body Swallowed Initial [...] any clubs o r organizations such as adventist groups, unions, fraternal or athletic groups, or [...] Answer Date Recorded PHQ-2 Score 0 12/10/2021 [facility] Occupat ional Health - Occupational Stress [...] place to sleep or slept in a penitentiary (including now)? No 04/03/2022 Depression Answer Date [...] Comments Blood Pressure 157/83 03/12/2023 8:30 AM MACHINE PLUG SHAPER Pulse 83 03/12/2023 8:45 AM MACHINE PLUG SHAPER Temperature 36.4 ??C (97.5 ??F) 03/12/2023 8:34 AM CS T Respiratory Rate 16 03/12/2023 8:34 AM MACHINE PLUG SHAPER Oxygen Saturation 100% 03/12/2023 8:45 AM MACHINE PLUG SHAPER Inhaled Oxygen Concentration - - Weight 96 kg (211 lb 10.3 oz) 03/12/2023 8:34 AM MACHINE PLUG SHAPER Height - - Body Mass Index 34.16 03/10/2023 8:53 AM MACHINE PLUG SHAPER documented in this encounter Discharge Instructions * Discharge Instructions* Wendy Calzada D.O. - 03/12/2023 8:58 AM MACHINE PLUG SHAPER It is okay to sip on warm/cold water for your discomfort. Take Tylenol every 6 hours as needed. If symptoms are still present on Wednesday, you can follow up with Gastroenterology to discuss endoscopy. INE PLUG SHAPER documented in this encounter Medications at Time [...] mL susp (45 mL oral Given 03/12/23 0817) MDM: IMPRESSION AND PLAN Patient presents with [...] and Hepatology, Internal Medicine [facility], [address] [phone] Next Steps: Follow up Instructions: As needed Becky Resendez Sarah, D.O. 03/13/23 1600 INE PLUG SHAPER documented in this encounter Plan of Treatment [...] prior to administration Given 03/12/2023 8:44 AM MACHINE PLUG SHAPER 45 mL documented in this encounter Active and Recently Administered Medications Times are shown in MACHINE PLUG SHAPER. Scheduled Medication Order 03/10/2023 03/11/2023 03/12/2023 lidocaine viscous 2 % 15 mL, alum-mag hydroxide-simeth 30 mL susp (COMPLETED) 45 mL, oral, Once, On Wed03/12/23 at 0840, For 1 dose, Mix ingredients prior to administration 0844 (Given - Provid er: Kezia Du R.N.) documented in this encounter Additional Health Concerns Assessment Noted Time PHQ-9 Depression Total Score: 3 04/23/19 8:30 AM MACHINE PLUG SHAPER documented as of this encounter Care Teams Nuclear Equipment Test Engineer Relationship Specialty Start Date End Date Elsewhere, Pcp PCP - General Internal Medicine 01/07/22 documented as of this encounter
--- OUTSIDE RECORDS SUMMARY | 2023-04-12 10:28 | XMS_ITS | Referral Summary ---
Author Name Unknown Organization [facility] Address [address] [place] [address] Care Team Providers Care Cross Tie Tram Loader Name Role Phone Elsewhere, Pcp Primary Care Provider Unavailabl e Source Comments Patient records contain information from all sites at [facility]. For routine questions regarding patient records, call [phone] during business hours, M-F 8:00 AM - 5:00 PM Central Time. Record requests for emergency care only can be directed to [phone] at any time.[facility] Encounters Date Type Department Care Team Description 03/30/2023 Orders Only Urgent Care, [facility], in [address] [address] Mario Valle P.A.-CSona Urinary Tract Infection Site Not Specified (Primary Dx) 03/27/2023 10:14 AM POWERED BRIDGE SPECIALIST - 03/27/2023 11:59 PM POWERED BRIDGE SPECIALIST Hospital Encounter Department of Radiology in [address] [phone] Mario Valle P.A.-C. Abdominal Pain Discharge Disposition: Home or Self Care 03/27/2023 9:00 AM POWERED BRIDGE SPECIALIST Office Visit Urgent Care, [facility], in [address] [phone] Mario Valle P.A.-CSona Abdominal Pain (Primary Dx) Discharge Disposition: Home or Self Care 03/25/2023 9:23 AM POWERED BRIDGE SPECIALIST - 03/25/2023 11:59 PM [facility] Hospital Encounter Department of Radiology, [facility], in [place], [place] [address] [place] [address] Ronal Henderson M.D. Johnson, David W, M.D. Pain Left Lower Quadrant Discharge Disposition: Home or Self Care 03/12/2023 8:27 AM POWERED BRIDGE SPECIALIST - 03/12/2023 9:04 AM [facility] Emergency [facility] [address] [place] [phone] Wendy Calzada D.O. Dysphagia (Primary Dx); Foreign Body Swallowed Initial Discharge Disposition: Home or Self Care 03/11/2023 8:53 PM POWERED BRIDGE SPECIALIST - 03/12/2023 2:30 AM [facility] Emergency Department [address] [place] [phone] Boyd Lynn M.D. Lightheadedness (Primary Dx) Discharge Disposition: Home or Self Care 03/10/2023 8:44 AM POWERED BRIDGE SPECIALIST - 03/10/2023 11:30 AM [facility] Emergency [facility] [address] [place] [phone] Jesus Manuel Hensley M.D. Influenza Like Illness (Primary Dx); Dehydration; Hypokalemia Discharge Disposition: Home or Self Care 03/08/2023 Nurse Triage [facility] Department of Family Medicine in [place], [place] [address] [facility] [place] [address] Suha Lea R.N. Med Question 03/08/2023 1:52 PM POWERED BRIDGE SPECIALIST - 03/08/2023 4:01 PM [facility] Emergency [facility] Emergency Department [address] [place] [address] Ronal Henderson M.D. Pain Left Lower Quadrant (Primary Dx); Pain Left Upper Quadrant; Abdominal Pain Discharge Disposition: Home or Self Care 03/02/2023 Clinical Communication Division of Gastroenterology in [place], [place] [address] [place] [address] Thaddeus Cosme 02/15/2023 1:45 PM POWERED BRIDGE SPECIALIST Office Visit Urgent Care, [facility], in [place], [place] [address] [place] [address] Lela Aguiar P.A.-C. Pain Epigastric (Primary Dx) [...] How often do you attend chur or jew services? 1 to 4 times per year [...] Answer Date Recorded PHQ-2 Score 0 12/10/2021 [facility] - Occupational [...] Comments Blood Pressure 117/81 03/27/2023 8:42 AM POWERED BRIDGE SPECIALIST Pulse 94 03/27/2023 8:42 AM POWERED BRIDGE SPECIALIST Temperature 36.2 ??C (97.2 ??F) 03/27/2023 8:42 AM CS T Respiratory Rate 16 03/12/2023 8:34 AM POWERED BRIDGE SPECIALIST Oxygen Saturation 98% 03/27/2023 8:42 AM POWERED BRIDGE SPECIALIST Inhaled Oxygen Concentration - - Weight 95.8 kg (211 lb 4.8 oz) 03/27/2023 8:42 A M POWERED BRIDGE SPECIALIST Height 169.4 cm (5' 6.69) 03/27/2023 8:42 AM CS T Body Mass Index 33.4 03/27/2023 8:42 AM POWERED BRIDGE SPECIALIST Plan of Treatment Not on file Procedures Procedure Name Priority Date/Time Associated Diagnosis Comments TISSUE TRANSGLUTAMINASE (TTG) AB, IGA, S STAT 03/27/2023 11:44 AM POWERED BRIDGE SPECIALIST CELIAC DISEASE COMPREHENSIVE CASCADE STAT 03/27/2023 11:44 AM POWERED BRIDGE SPECIALIST Abdominal Pain CT ABDOMEN PELVIS WITH IV CONTRAST RAD - Routine (most inpatients and all outpatients) 03/27/2023 10:35 AM POWERED BRIDGE SPECIALIST Abdominal Pain TEST, POCT, U (LAB) STAT 03/27/2023 10:03 AM POWERED BRIDGE SPECIALIST Abdominal Pain HC URINALYSIS AUTO W MICRO STAT 03/27/2023 10:03 AM POWERED BRIDGE SPECIALIST URINALYSIS WITH MICROSCOPIC IF INDICATED, U STAT 03/27/2023 10:03 AM POWERED BRIDGE SPECIALIST Abdominal Pain BACTERIAL CULTURE, AEROBIC + SUSC, URINE STAT 03/27/2023 10:03 AM POWERED BRIDGE SPECIALIST Abdominal Pain LIPASE, S/P STAT 03/27/2023 9:32 AM POWERED BRIDGE SPECIALIST Abdominal Pain C-REACTIVE PROTEIN (CRP), S/P STAT 03/27/2023 9:32 AM POWERED BRIDGE SPECIALIST Abdominal Pain COMPREHENSIVE METABOLIC PANEL, S/P STAT 03/27/2023 9:32 AM POWERED BRIDGE SPECIALIST Abdominal Pain CBC WITH DIFFERENTIAL, B STAT 03/27/2023 9:32 AM POWERED BRIDGE SPECIALIST Abdominal Pain FL ESOPHAGRAM SINGLE CONTRAST RAD - Routine (most inpatients and all outpatients) 03/25/2023 10:08 AM POWERED BRIDGE SPECIALIST Pain Left Lower Quadrant TROPONIN T, 2H/6H, 5TH GEN, P Timed 03/12/2023 12:41 AM POWERED BRIDGE SPECIALIST TROPONIN T, BASELINE, 5TH GEN, P STAT 03/11/2023 10:57 PM POWERED BRIDGE SPECIALIST BASIC METABOLIC PANEL, S/P STAT 03/11/2023 10:57 PM POWERED BRIDGE SPECIALIST CBC WITH DIFFERENTIAL, B STAT 03/11/2023 10:57 PM POWERED BRIDGE SPECIALIST ECG STAT 03/10/2023 10:21 AM POWERED BRIDGE SPECIALIST DX CHEST AP OR PA AND LATERAL 2 VIEWS RAD - Semiurgent (Fast; most ED patients; some inpatients) 03/10/2023 9:37 AM POWERED BRIDGE SPECIALIST INFLUENZA A, B, RSV, PCR, POCT STAT 03/10/2023 8:49 AM POWERED BRIDGE SPECIALIST SARS CORONAVIRUS 2, PCR RAPID, V STAT 03/10/2023 8:49 AM POWERED BRIDGE SPECIALIST CBC WITH DIFFERENTIAL, B STAT 03/10/2023 8:39 AM POWERED BRIDGE SPECIALIST BASIC METABOLIC PANEL, S/P STAT 03/10/2023 8:39 AM POWERED BRIDGE SPECIALIST LIPASE, S/P STAT 03/08/2023 2:50 PM POWERED BRIDGE SPECIALIST CBC WITH DIFFERENTIAL, B STAT 03/08/2023 2:50 PM POWERED BRIDGE SPECIALIST COMPREHENSIVE METABOLIC PANEL, S/P STAT 03/08/2023 2:50 PM POWERED BRIDGE SPECIALIST URINALYSIS WITH MICROSCOPIC STAT 03/08/2023 2:43 PM POWERED BRIDGE SPECIALIST BASIC METABOLIC PANEL, S/P STAT 02/15/2023 2:35 PM POWERED BRIDGE SPECIALIST Pain Epigastric CBC WITH DIFFERENTIAL, B STAT 02/15/2023 2:35 PM POWERED BRIDGE SPECIALIST Pain Epigastric from Last 3 Months Results * Celiac Disease [place] (03/27/2023 11:44 AM POWERED BRIDGE SPECIALIST) HLA-DQA1 Locus Molecular 01:03, 05 Not Applicable 03/31/2023 2:18 PM POWERED BRIDGE SPECIALIST DBB8 HLA-DQB1 Locus Molecular 03:03, 06:03 Not Applicable 03/31/2023 2:18 PM POWERED BRIDGE SPECIALIST DBB8 Comment: DQ Serologic Equivalent: 9, 6 Celiac Gene Pairs Present? No 03/31/2023 2:18 PM POWERED BRIDGE SPECIALIST DBB8 Comment: Method: Molecular typing of HLA [...] if ethnic specific resolution is required. CLIA: [id number] ??CLIA Advanced Clinical Specialist: KLAUS MANCUSO MD,PhD Immunoglobulin A (IgA), S 122 61 - 356 mg/dL 03/29/2023 2:59 PM POWERED BRIDGE SPECIALIST [facility] Celiac Disease Interpretation See Comment: Permissive genes absent and negative serology. Celiac disease extremely unlikely. 03/31/2023 10:53 PM POWERED BRIDGE SPECIALIST [facility] Blood (Blood, Venous) 03/27/2023 11:44 AM POWERED BRIDGE SPECIALIST 03/29/2023 8:00 AM POWERED BRIDGE SPECIALIST Narrative [facility] - 03/31/2023 10:53 PM POWERED BRIDGE SPECIALIST Specimen Information: Specimen ID: [id number] Specimen Type: Blood Specimen Collection Start Date: 03/27/2023 11:44 AM Specimen Received Date: 03/29/2023 ??8:00 AM Specimen ID: [id number] Specimen Type: Blood Specimen Collection Start Date: 03/27/2023 11:44 AM Specimen Received Date: 03/29/2023 ??6:42 AM Specimen ID: [id number] Specimen Type: Blood Specimen Collection Start Date: 03/27/2023 11:44 AM Specimen Received Date: 03/29/2023 ??7:40 AM Mario Valle P.A.-C. LAB BLOOD N ON ADD-ON Performing Organization Address City/[facility] Co de Phone Number [facility] [address] [place] [address] [id number] [facility] [address] [place] [address] [facility] [address] [place] [address] [place] [address] [place] [address] * tTG (Tissue Transglutaminase), Antibody, IgA (03/27/2023 11:44 AM POWERED BRIDGE SPECIALIST) Tissue Transglutaminase Ab, IgA, S <1.2 <4.0 (Negative ) U/mL 03/30/2023 12:34 PM POWERED BRIDGE SPECIALIST [facility] Blood 03/27/2023 11:4 4 AM POWERED BRIDGE SPECIALIST 03/29/2023 3:34 PM POWERED BRIDGE SPECIALIST Mario Valle P.A.-C. LAB BLOOD A DD-ON Performing Organization Address [facility] Co de Phone Number [facility] [address] [place] [address] [facility] [address] [place] [address] * CT Abdomen Pelvis with IV Contrast (03/27/2023 10:35 AM POWERED BRIDGE SPECIALIST) Anatomical Region Laterality Modality Abdomen, Pelvis, Abdominal R ST LOS, Abdominal ARZ LOS, Abdominal FLA LOS N/A Computed Tomography 03/27/2023 10:3 9 AM POWERED BRIDGE SPECIALIST Impressions 03/27/2023 11:01 AM POWERED BRIDGE SPECIALIST 1. Normal-appearing appendix. 2. No acute intra-abdominal/pelvic pathology, no CT findings to explain the patient's symptoms of right lower quadrant abdominal pain. Narrative 03/27/2023 11:01 AM POWERED BRIDGE SPECIALIST EXAM: CT ABDOMEN PELVIS WITH IV CONTRAST [...] appendix in the right lower quadrant on [id number] of series 3. No small bowel or [...] lower quadrant abdominal pain. Mario Valle P.A.-C. [facility] PROC EDURES * (ABNORMAL) Urinalysis with Microscopic if Indicated (03/27/2023 10:03 AM POWERED BRIDGE SPECIALIST) Source Urine, Urine, Midstream 03/27/2023 10:17 AM POWERED BRIDGE SPECIALIST NPRG Clarity Clear Clear 03/27/2023 10:20 AM POWERED BRIDGE SPECIALIST NPRG Color Yellow 03/27/2023 10:20 AM POWERED BRIDGE SPECIALIST NPRG Comment: ----REFERENCE VALUE---- Colorless Yellow Chasity Blood Negative Negative 03/27/2023 10:20 AM POWERED BRIDGE SPECIALIST NPRG Nitrite Negative Negative 03/27/2023 10:20 AM POWERED BRIDGE SPECIALIST NPRG Leukocyte Esterase Small(A) Negative 03/27/2023 10:20 AM POWERED BRIDGE SPECIALIST NPRG Protein Negative mg/dL 03/27/2023 10:20 AM POWERED BRIDGE SPECIALIST NPRG Comment: ----REFERENCE VALUE---- Negative Trace Glucose Negative Negative mg/dL 03/27/2023 10:20 AM POWERED BRIDGE SPECIALIST NPRG Ketones, QI(U) Negative Negative mg/dL 03/27/2023 10:20 AM POWERED BRIDGE SPECIALIST NPRG Bilirubin Negative Negative 03/27/2023 10:20 AM POWERED BRIDGE SPECIALIST NPRG pH 7.0 5.0 - 8.0 03/27/2023 10:20 AM POWERED BRIDGE SPECIALIST NPRG Specific [place] 1.015 1.001 - 1.035 03/27/2023 10:20 AM POWERED BRIDGE SPECIALIST NPRG Urobilinogen 0.2 0.2 - 1.0 mg/dL 03/27/2023 10:20 AM POWERED BRIDGE SPECIALIST NPRG Urine (Urine, Midstream) 03/27/2023 10:03 AM POWERED BRIDGE SPECIALIST 03/27/2023 10:17 AM POWERED BRIDGE SPECIALIST Mario Valle P.A.-C. LAB URINE O RDERABLES Performing Organization Address City/[facility] Co de Phone Number [facility] [address] [place] [address], [facility] NPRG [place] [address] [place] [address] * (ABNORMAL) Microscopic Manual (03/27/2023 10:03 AM POWERED BRIDGE SPECIALIST) White Blood Cells Occ-3 /hpf 03/27/2023 10:32 AM POWERED BRIDGE SPECIALIST NPRG Comment: ----REFERENCE VALUE---- Males: 0-3 Females: 0-10 Unknown: 0-10 Red Blood Cells None Seen 0 - 2 /hpf 03/27/2023 10:32 AM POWERED BRIDGE SPECIALIST NPRG Squamous Cells Occ-3 /hpf 03/27/2023 10:32 AM POWERED BRIDGE SPECIALIST NPRG Bacteria Present(A) None Seen 03/27/2023 10:32 AM POWERED BRIDGE SPECIALIST NPRG Urine 03/27/2023 10:0 3 AM POWERED BRIDGE SPECIALIST 03/27/2023 10:17 AM POWERED BRIDGE SPECIALIST Mario Valle P.A.-C. LAB URINE O RDERABLES Performing Organization Address [facility] Co de Phone Number [facility] [address] [place] [address], [place] NPRG [address] [address] * (ABNORMAL) Bacterial Culture, Aerobic + Susceptibility, Urine (03/27/2023 10:03 AM POWERED BRIDGE SPECIALIST) Urine Culture with mixed microbiota(A) 03/30/2023 6:38 AM POWERED BRIDGE SPECIALIST MKTO Urine Culture PSEUDOMONAS AERUGINOSA >100,000 cfu/mL (A) 03/30/2023 6:38 AM POWERED BRIDGE SPECIALIST MKTO Urine Culture KLEBSIELLA PNEUMONIAE COMPLEX 10,000-100,000 cfu/mL (A) 03/30/2023 6:38 AM POWERED BRIDGE SPECIALIST MKTO Urine (Urine, Midstream) 03/27/2023 10:03 AM POWERED BRIDGE SPECIALIST 03/27/2023 4:21 PM POWERED BRIDGE SPECIALIST Comment:Specimen Source Site : Urine Narrative Organism [...] P.A.-C. LAB MICROBI OLOGY - GENERAL ORDERABLES Performing Organization Address City/[facility]/ZIP Co de Phone Number [facility] [address] [place] [address], [facility] MKTO [facility] in [place] [address] [place] [address] * Test, POCT, Urine (Lab) (03/27/2023 10:03 AM POWERED BRIDGE SPECIALIST) Test, POCT, U Negative 03/27/2023 10:25 AM POWERED BRIDGE SPECIALIST NPRG Urine (Urine, Midstream) 03/27/2023 10:03 AM POWERED BRIDGE SPECIALIST 03/27/2023 10:17 AM POWERED BRIDGE SPECIALIST Mario Valle P.A.-C. LAB POCT OR DERABLES - DEVICE [facility] [address] [place] [address], [facility] NPRG [facility] [address] [place] [address] * CBC with Differential, Blood (03/27/2023 9:32 AM POWERED BRIDGE SPECIALIST) Only the most recent of5 resultswithin the time period is included. Hemoglobin 13.9 11.6 - 15.0 g/dL 03/27/2023 9:41 AM POWERED BRIDGE SPECIALIST NPRG Hematocrit 42.7 35.5 - 44.9 % 03/27/2023 9:41 AM POWERED BRIDGE SPECIALIST NPRG Erythrocytes 4.95 3.92 - 5.13 x10(12)/L 03/27/2023 9:41 AM POWERED BRIDGE SPECIALIST NPRG MCV 86.3 78.2 - 97.9 fL 03/27/2023 9:41 AM POWERED BRIDGE SPECIALIST NPRG RBC Distrib Width 14.7 12.2 - 16.1 % 03/27/2023 9:41 AM POWERED BRIDGE SPECIALIST NPRG Platelet Count 278 157 - 371 x10(9)/L 03/27/2023 9:41 AM POWERED BRIDGE SPECIALIST NPRG Leukocytes 7.4 3.4 - 9.6 x10(9)/L 03/27/2023 9:41 AM POWERED BRIDGE SPECIALIST NPRG Neutrophils 5.52 1.56 - 6.45 x10(9)/L 03/27/2023 9:41 AM POWERED BRIDGE SPECIALIST NPRG Lymphocytes 1.09 0.95 - 3.07 x10(9)/L 03/27/2023 9:41 AM POWERED BRIDGE SPECIALIST NPRG Monocytes 0.65 0.26 - 0.81 x10(9)/L 03/27/2023 9:41 AM POWERED BRIDGE SPECIALIST NPRG Eosinophils 0.16 0.03 - 0.48 x10(9)/L 03/27/2023 9:41 AM POWERED BRIDGE SPECIALIST NPRG Basophils 0.01 0.01 - 0.08 x10(9)/L 03/27/2023 9:41 AM POWERED BRIDGE SPECIALIST NPRG Blood (Blood, Venous) 03/27/2023 9:32 AM POWERED BRIDGE SPECIALIST 03/27/2023 9:37 AM POWERED BRIDGE SPECIALIST Mario Valle P.A.-C. LAB BLOOD A DD-ON [facility] [address] [place] [address], [facility] NPRG [facility] [address] [place] [address] * (ABNORMAL) CRP (C-Reactive Protein) (03/27/2023 9:32 AM POWERED BRIDGE SPECIALIST) C-Reactive Protein (CRP), P 15.2(H) <5.0 mg/L 03/27/2023 10:02 AM POWERED BRIDGE SPECIALIST NPRG Blood (Blood, Venous) 03/27/2023 9:32 AM POWERED BRIDGE SPECIALIST 03/27/2023 9:37 AM POWERED BRIDGE SPECIALIST Mario Valle P.A.-C. LAB BLOOD A DD-ON Performing Organization Address [facility] Co de Phone Number [facility] [address] [place] [address], [facility] NPRG [place] [address] [place] [address] * Lipase (03/27/2023 9:32 AM POWERED BRIDGE SPECIALIST) Only the most recent of2 resultswithin the time period is included. Lipase, P 36 13 - 60 U/L 03/27/2023 10:02 AM POWERED BRIDGE SPECIALIST NPRG Blood (Blood, Venous) 03/27/2023 9:32 AM POWERED BRIDGE SPECIALIST 03/27/2023 9:37 AM POWERED BRIDGE SPECIALIST Mario ClarkCSona LAB BLOOD A DD-ON Performing Organization Address [facility] Co de Phone Number [facility] [address] [place] [address], [place] [address] [place] [address] * Comprehensive Metabolic Panel (03/27/2023 9:32 AM POWERED BRIDGE SPECIALIST) Only the most recent of2 resultswithin the time period is included. Potassium, P 4.0 3.6 - 5.2 mmol/L 03/27/2023 10:02 AM POWERED BRIDGE SPECIALIST NPRG Sodium, P 139 135 - 145 mmol/L 03/27/2023 10:02 AM POWERED BRIDGE SPECIALIST NPRG Chloride, P 105 98 - 107 mmol/L 03/27/2023 10:02 AM POWERED BRIDGE SPECIALIST NPRG Bicarbonate, P 22 22 - 29 mmol/L 03/27/2023 10:02 AM POWERED BRIDGE SPECIALIST NPRG Anion Gap, P 12 7 - 15 03/27/2023 10:02 AM POWERED BRIDGE SPECIALIST NPRG BUN (Blood Urea Nitrogen), P 8 6 - 21 mg/dL 03/27/2023 10:02 AM POWERED BRIDGE SPECIALIST NPRG Creatinine 0.87 0.59 - 1.04 mg/dL 03/27/2023 10:02 AM POWERED BRIDGE SPECIALIST NPRG Estimated GFR (eGFR) 86 >=60 mL/min/BS A 03/27/2023 10:02 AM POWERED BRIDGE SPECIALIST NPRG Comment: Estimated GFR calculated using the 2020 CKD_EPI creatinine equation. Calcium, Total, P 9.1 8.6 - 10.0 mg/dL 03/27/2023 10:02 AM POWERED BRIDGE SPECIALIST NPRG Glucose, P 93 70 - 140 mg/dL 03/27/2023 10:02 AM POWERED BRIDGE SPECIALIST NPRG Protein, Total, P 6.5 6.3 - 7.9 g/dL 03/27/2023 10:02 AM POWERED BRIDGE SPECIALIST NPRG Albumin, P 4.0 3.5 - 5.0 g/dL 03/27/2023 10:02 AM POWERED BRIDGE SPECIALIST NPRG Aspartate Aminotransferase (AST), P 14 8 - 43 U/L 03/27/2023 10:02 AM POWERED BRIDGE SPECIALIST NPRG Alkaline Phosphatase, P 69 35 - 104 U/L 03/27/2023 10:02 AM POWERED BRIDGE SPECIALIST NPRG Alanine Aminotransferase (ALT), P 30 7 - 45 U/L 03/27/2023 10:02 AM POWERED BRIDGE SPECIALIST NPRG Bilirubin, Total, P 0.5 0.0 - 1.2 mg/dL 03/27/2023 10:02 AM POWERED BRIDGE SPECIALIST NPRG Blood (Blood, Venous) 03/27/2023 9:32 AM POWERED BRIDGE SPECIALIST 03/27/2023 9:37 AM POWERED BRIDGE SPECIALIST Mario Valle P.A.-C. LAB BLOOD A DD-ON [facility] [address] [place] [address], [facility] NPRG [facility] [address] [place] [address] * FL Esophagram Single Contrast (03/25/2023 10:08 AM POWERED BRIDGE SPECIALIST) Anatomical Region Laterality Modality Gastro Intestinal, Abdominal RST LOS, Abdominal ARZ LOS, Abdominal FLA LOS N/A Digital Radiography Impressions 03/25/2023 10:13 AM POWERED BRIDGE SPECIALIST Small sliding-type hiatal hernia. No reflux observed. Narrative 03/25/2023 10:13 AM POWERED BRIDGE SPECIALIST EXAM: FL ESOPHAGRAM SINGLE CONTRAST FINDINGS: Normal [...] reflux observed. Ronal Henderson M.D. IMG FLUOROSCOPY NE OCEDURES * Troponin T, 2h/6h, 5th Gen (03/12/2023 12:41 AM POWERED BRIDGE SPECIALIST) Troponin T, 2 hr, 5th gen <6 <=10 ng/L 03/12/2023 1:03 AM POWERED BRIDGE SPECIALIST NPRG 2H Delta 0 ng/L 03/12/2023 1:03 AM POWERED BRIDGE SPECIALIST NPRG 2H Delta Interp Not Changing 03/12/2023 1:03 AM POWERED BRIDGE SPECIALIST NPRG Troponin T, 6 hr, 5th gen CANCELED ng/L 03/12/2023 1:03 AM POWERED BRIDGE SPECIALIST NPRG Comment:Result canceled by t he ancillary. 6H Delta CANCELED ng/L 03/12/2023 1:03 AM POWERED BRIDGE SPECIALIST NPRG Comment:Result canceled by t he ancillary. 6H Delta % CANCELED % 03/12/2023 1:03 AM POWERED BRIDGE SPECIALIST NPRG Comment:Result canceled by t he ancillary. Blood (Blood, Venous) 03/12/2023 12:41 AM POWERED BRIDGE SPECIALIST 03/12/2023 12:43 AM POWERED BRIDGE SPECIALIST Narrative [facility] - 03/12/2023 1:03 AM POWERED BRIDGE SPECIALIST Specimen Information: Specimen ID: [id number] Specimen Type: Blood Specimen Collection Start Date: 03/12/2023 12:41 AM Specimen Received Date: 03/12/2023 12:43 AM Specimen ID: [id number] Specimen Type: Blood Boyd Lynn M.D. LAB BLOOD TROPONIN [facility] [address] [place] [address], [facility] NPRG [place] [address] [place] [address] * Troponin T, Baseline, 5th gen (03/11/2023 10:57 PM POWERED BRIDGE SPECIALIST) Troponin T, Baseline, 5th gen <6 <=10 ng/L 03/11/2023 11:50 PM POWERED BRIDGE SPECIALIST NPRG Blood (Blood, Venous) 03/11/2023 10:57 PM POWERED BRIDGE SPECIALIST 03/11/2023 11:01 PM POWERED BRIDGE SPECIALIST Boyd Lynn M.D. LAB BLOOD TROPONIN Performing Organization Address City/[facility]/ZIP Co de Phone Number [facility] [address] [place] [address], [facility] [address] [address] * Basic Metabolic Panel (03/11/2023 10:57 PM POWERED BRIDGE SPECIALIST) Only the most recent of3 resultswithin the time period is included. Potassium, P 4.0 3.6 - 5.2 mmol/L 03/11/2023 11:25 PM POWERED BRIDGE SPECIALIST NPRG Sodium, P 139 135 - 145 mmol/L 03/11/2023 11:25 PM POWERED BRIDGE SPECIALIST NPRG Chloride, P 104 98 - 107 mmol/L 03/11/2023 11:25 PM POWERED BRIDGE SPECIALIST NPRG Bicarbonate, P 23 22 - 29 mmol/L 03/11/2023 11:25 PM POWERED BRIDGE SPECIALIST NPRG Anion Gap, P 12 7 - 15 03/11/2023 11:25 PM POWERED BRIDGE SPECIALIST NPRG BUN (Blood Urea Nitrogen), P 9 6 - 21 mg/dL 03/11/2023 11:25 PM POWERED BRIDGE SPECIALIST NPRG Creatinine 0.83 0.59 - 1.04 mg/dL 03/11/2023 11:25 PM POWERED BRIDGE SPECIALIST NPRG Estimated GFR (eGFR) >90 >=60 mL/min/BSA 03/11/2023 11:25 PM POWERED BRIDGE SPECIALIST NPRG Comment: Estimated GFR calculated using the 2020 CKD_EPI creatinine equation. Calcium, Total, P 9.6 8.6 - 10.0 mg/dL 03/11/2023 11:25 PM POWERED BRIDGE SPECIALIST NPRG Glucose, P 98 70 - 140 mg/dL 03/11/2023 11:25 PM POWERED BRIDGE SPECIALIST NPRG Blood (Blood, Venous) 03/11/2023 10:57 PM POWERED BRIDGE SPECIALIST 03/11/2023 11:01 PM POWERED BRIDGE SPECIALIST Boyd Lynn M.D. LAB BLOOD ADD-ON Performing Organization Address City/[facility]/ZIP Co de Phone Number [facility] [address] [place] [address], [place] NPR[place] [facility] [address] [place] [address] * ECG 12 Lead (03/10/2023 10:21 AM POWERED BRIDGE SPECIALIST) Ventricular Rate ECG/Min 73 BPM MUSE NE Interval 132 ms MUSE QRSD Interval 90 ms MUSE QT Interval 416 ms MUSE QTC Interval 458 ms MUSE P [place] 66 degrees MUSE R [place] 14 degrees MUSE T Wave [place] -1 degrees MUSE 03/10/2023 10:2 1 AM POWERED BRIDGE SPECIALIST 03/10/2023 10:42 AM POWERED BRIDGE SPECIALIST Impressions MUSE - 03/10/2023 10:40 AM POWERED BRIDGE SPECIALIST Normal sinus rhythm Nonspecific ST and T wave abnormality When compared with ECG of 07-OCT-2022 12:07, NE interval has increased Reviewed by WHIT Plummer Narrative Procedure Note Dqauan Hess M.D., M.P.H. - 03/10/2023 IMPRESSION: Normal sinus rhythm Nonspecific ST and T wave abnormality When compared with ECG of 07-OCT-2022 12:07, NE interval has increased Reviewed by WHIT Plummer Jesus Manuel Hensley M.D. ECG ORDERABLES Performing Organization Address City/[facility]/ZIP Co de Phone Number MUSE NA * DX Chest AP or PA and Lateral 2 Views (03/10/2023 9:37 AM POWERED BRIDGE SPECIALIST) Anatomical Region Laterality Modality Chest, Thoracic RST LOS, Tho racic ARZ LOS, Thoracic FLA LOS N/A Digital Radiography Impressions 03/10/2023 9:38 AM POWERED BRIDGE SPECIALIST Stable chest, no acute cardiopulmonary disease. Narrative 03/10/2023 9:38 AM POWERED BRIDGE SPECIALIST EXAM: DX CHEST AP OR PA AND [...] acute cardiopulmonary disease. Jesus Manuel Hensley M.D. IMMadhav DIAGNOSTIC IMAGI NG PROCEDURES * SARS Coronavirus 2, PCR Rapid Symptomatic (03/10/2023 8:49 AM POWERED BRIDGE SPECIALIST) Pathologist [facility] SARS CoV-2, PCR, Rapid, V Undetected Undetected 03/10/2023 9:12 AM POWERED BRIDGE SPECIALIST NPRG Comment: ----ADDITIONAL INFORMATION---- This RT-PCR test was performed using the [facility] SARS-CoV-2 and Influenza A/B Reagent assay from [facility], which has received Emergency Use Authorization(EUA) by the U.S. Food and Drug Administration. Fact sheets for this Emergency Use Authorization (EUA) assay can be found at the following links: For Healthcare Providers: https://www.fda.gov/media/111258/download For Patients: https://www.fda.gov/media/284411/download SARS Coronavirus 2, Source, Rapid Swab, Nasopharynx 03/10/2023 8:49 AM POWERED BRIDGE SPECIALIST NPRG Swab (Nasopharynx) 03/10/2023 8:49 AM POWERED BRIDGE SPECIALIST 03/10/2023 8:49 AM POWERED BRIDGE SPECIALIST Jesus Manuel Hensley M.D. LAB MICROBIOLOGY - G ENERAL ORDERABLES [facility] [address] [place] [address], [place] [address] [address] [place] [address] * Influenza A/B and RSV, PCR, Point of Care (03/10/2023 8:49 AM POWERED BRIDGE SPECIALIST) Pathologist [facility] Influenza A, POCT Negative Negative 03/10/2023 8:53 AM POWERED BRIDGE SPECIALIST NPRG Influenza B, POCT Negative Negative 03/10/2023 8:53 AM POWERED BRIDGE SPECIALIST NPRG Resp Syncytial Virus, POCT Negative Negative 03/10/2023 8:53 AM POWERED BRIDGE SPECIALIST NPRG Swab (Nasopharynx) 03/10/2023 8:49 AM POWERED BRIDGE SPECIALIST 03/10/2023 8:49 AM POWERED BRIDGE SPECIALIST Jesus Manuel Hensley M.D. LAB POCT ORDERABLES - DEVICE Performing Organization Address City/[facility]/ZIP Co de Phone Number [facility] [address] [place] [address], [place] [address] [address] [place] [address] * (ABNORMAL) Urinalysis with Microscopic: Urine, Midstream (03/08/2023 2:43 PM POWERED BRIDGE SPECIALIST) Source Urine, Urine, Midstream 03/08/2023 3:00 PM POWERED BRIDGE SPECIALIST MKTO Clarity Clear Clear 03/08/2023 3:00 PM POWERED BRIDGE SPECIALIST MKTO Color Yellow 03/08/2023 3:00 PM POWERED BRIDGE SPECIALIST MKTO Comment: ----REFERENCE VALUE---- Colorless Yellow Chasity Blood Negative Negative 03/08/2023 3:00 PM POWERED BRIDGE SPECIALIST MKTO Nitrite Negative Negative 03/08/2023 3:00 PM POWERED BRIDGE SPECIALIST MKTO Leukocyte Esterase Trace(A) Negative 03/08/2023 3:00 PM POWERED BRIDGE SPECIALIST MKTO Protein Negative mg/dL 03/08/2023 3:00 PM POWERED BRIDGE SPECIALIST MKTO Comment: ----REFERENCE VALUE---- Negative Trace Glucose Negative Negative mg/dL 03/08/2023 3:00 PM POWERED BRIDGE SPECIALIST MKTO Ketone Negative Negative mg/dL 03/08/2023 3:00 PM POWERED BRIDGE SPECIALIST MKTO Bilirubin Negative Negative 03/08/2023 3:00 PM POWERED BRIDGE SPECIALIST MKTO pH 8.5(A) 5.0 - 8.0 03/08/2023 3:00 PM POWERED BRIDGE SPECIALIST MKTO Specific [place] 1.007 1.001 - 1.035 03/08/2023 3:00 PM POWERED BRIDGE SPECIALIST MKTO Urobilinogen 0.2 0.2 - 1.0 mg/dL 03/08/2023 3:00 PM POWERED BRIDGE SPECIALIST MKTO White Blood Cells Occ-3 /hpf 03/08/2023 3:03 PM POWERED BRIDGE SPECIALIST MKTO Comment: ----REFERENCE VALUE---- Males: 0-3 Females: 0-10 Unknown: 0-10 Red Blood Cells None Seen 0 - 2 /hpf 3:03 PM POWERED BRIDGE SPECIALIST MKTO Squamous Cells Occ-3 /hpf 03/08/2023 3:03 PM POWERED BRIDGE SPECIALIST MKTO Urine (Urine, Midstream) 03/08/2023 2:43 PM POWERED BRIDGE SPECIALIST 03/08/2023 2:56 PM POWERED BRIDGE SPECIALIST Ronal Henderson M.D. LAB URINE ORDERABL ES Performing Organization Address [facility]/State/ZIP Co de Phone Number [facility] [address] [place] [address], [facility] MKTO [place] [address] from Last 3 Months Care Teams Cross Tie Tram Loader Relationship Specialty Start Date End Date Elsewhere, Pcp PCP - General Internal Medicine 01/07/22
--- OUTSIDE RECORDS SUMMARY | 2023-04-12 10:28 | XMS_ITS | Encounter Summary ---
Author Name Unknown Organization [facility] Address [address] [place] [address] Care Team Providers Care Plate Mounter Name Role Phone Elsewhere, Pcp Primary Care Provider Unavailabl e Reason for Referral * Outpatient (Routine) - Closed Specialty Diagnoses / Procedures Referred By Polinaac t Referred To Contact Diagnoses Pain Left Lower Quadrant Procedures FL Esophagram Single Contrast Ronal Henderson M.D. [address] [place] [phone] [facility] Referral ID Status Reason Start Date Expiration Date Visits Re quested Visits Authorized [id number] Closed 03/08/2023 03/07/2024 1 1 LLERY MAINTENANCE SUPERVISOR Reason for Visit * Outpatient (Routine) - Closed Specialty Diagnoses / Procedures Referred By Tania t Referred To Contact Diagnoses Pain Left Lower Quadrant Procedures FL Esophagram Single Contrast Ronal Henderson M.D. [address] [place] [phone] [facility] Referral ID Status Reason Start Date Expiration Date Visits Re quested Visits Authorized [id number] Closed 03/08/2023 03/07/2024 1 1 Encounter Details Date Type Department Care Team (Latest Contact Info) Description 03/25/2023 9:23 AM ARTILLERY MAINTENANCE SUPERVISOR - 03/25/2023 11:59 PM ARTILLERY MAINTENANCE SUPERVISOR Hospital Encounter Department of Radiology, [facility], in [place], [place] [address] [place] [phone] Ronal Henderson M.D. [address] [place] [phone] Paul Car M.D. [address] [place] [phone] Pain Left Lower Quadrant Discharge [...] often do you attend chur ch or buddhist services? 1 to 4 times per year 04/03/2022 Do you belong to any clubs o r organizations such as denominational groups, unions, fraternal or athletic groups, or [...] Answer Date Recorded PHQ-2 Score 0 12/10/2021 [facility] - Occupational Stress [...] place to sleep or slept in a half-way (including now)? No 04/03/2022 Depression Answer Date [...] inpatients and all outpatients) 03/25/2023 10:08 AM ARTILLERY MAINTENANCE SUPERVISOR Pain Left Lower Quadrant documented in this encounter Results * FL Esophagram Single Contrast (03/25/2023 10:08 AM ARTILLERY MAINTENANCE SUPERVISOR) Anatomical Region Laterality Modality Gastro Intestinal, Abdominal RST LOS, Abdominal ARZ LOS, Abdominal FLA LOS N/A Digital Radiography Impressions 03/25/2023 10:13 AM ARTILLERY MAINTENANCE SUPERVISOR Small sliding-type hiatal hernia. No reflux observed. Narrative 03/25/2023 10:13 AM ARTILLERY MAINTENANCE SUPERVISOR EXAM: FL ESOPHAGRAM SINGLE CONTRAST FINDINGS: Normal [...] reflux observed. Ronal Henderson M.D. IMMadhav FLUOROSCOPY [place] OCEDURES documented in this encounter Visit Diagnoses [...] For 1 dose Given 03/25/2023 10:11 AM ARTILLERY MAINTENANCE SUPERVISOR 60 mL barium 98 % oral powder for suspension 90 mL (E-Z-HD) 90 mL, oral, Once in imaging, contrast, Starting on Belinda 03/25/23 at 1010, For 1 dose Given 03/25/2023 10:12 AM ARTILLERY MAINTENANCE SUPERVISOR 90 mL documented in this encounter Additional Health Concerns Assessment Noted Time PHQ-9 Depression Total Score: 3 04/23/19 22 8:30 AM ARTILLERY MAINTENANCE SUPERVISOR documented as of this encounter Care Teams Plate Mounter Relationship Specialty Start Date End Date Elsewhere, Pcp PCP - General Internal Medicine 01/07/22 documented as of this encounter
--- OUTSIDE RECORDS SUMMARY | 2023-04-12 10:28 | XMS_ITS ---
Author Name Unknown Organization [facility] Address [address] [place] [address] Care Team Providers Care Clam Bed Worker Name Role Phone Unavailable Unavailable Unavailable Surgery Details Not on file Complications Check Surgery Details section. Procedure Estimated Blood Loss Check Surgery Details section. Procedure Findings Check Surgery Details section. Procedure Specimens Taken Check Surgery Details section.
--- OUTSIDE RECORDS SUMMARY | 2023-04-12 10:28 | XMS_ITS | Encounter Summary ---
Author Name Unknown Organization [facility] Address [address] [place] [address] Care Team Providers Care Tire Mold Tester Name Role Phone Elsewhere, Pcp Primary Care Provider Unavailabl e Reason for Referral * MRI/CAT/PET Scan (Routine) - Closed Specialty Diagnoses / Procedures Referred By Tania t Referred To Contact Radiology Diagnoses Abdominal Pain Procedures CT Abdomen Pelvis with IV Contrast Mario Valle P.ALarry [address] [place] [phone] [facility] Region Referral ID Status Reason Start Date Expiration Date Visits Re quested Visits Authorized [id number] Closed 03/27/2023 03/26/2024 1 1 PRODUCTION ASSISTANT Reason for Visit * Reason Comments Abdominal Pain Had sudden pain and nausea last night. Also had a barium study on morning. Has had bowel movements since Encounter Details Date Type Department Care Team (Late st Contact Info) Description 03/27/2023 9:00 AM POST PRODUCTION ASSISTANT Office Visit Urgent Care, [facility], in [place], [place] [address] [place] [phone] Mario Valle P.A.-C. [address], [place] [phone] Abdominal Pain (Primary Dx) Discharge Disposition: Home [...] often do you attend chur ch or jainism services? 1 to 4 times per year 04/03/2022 Do you belong to any clubs o r organizations such as anabaptism groups, unions, fraternal or athletic groups, or [...] Answer Date Recorded PHQ-2 Score 0 12/10/2021 [facility] - Occupational Stress Questionnaire Answer Date Recorded [...] Comments Blood Pressure 117/81 03/27/2023 8:42 AM POST PRODUCTION ASSISTANT Pulse 94 03/27/2023 8:42 AM POST PRODUCTION ASSISTANT Temperature 36.2 ??C (97.2 ??F) 03/27/2023 8:42 AM CS T Respiratory Rate - - Oxygen Saturation 98% 03/27/2023 8:42 AM POST PRODUCTION ASSISTANT Inhaled Oxygen Concentration - - Weight 95.8 kg (211 lb 4.8 oz) 03/27/2023 8:42 A M POST PRODUCTION ASSISTANT Height 169.4 cm (5' 6.69) 03/27/2023 8:42 AM CS T Body Mass Index 33.4 03/27/2023 8:42 AM POST PRODUCTION ASSISTANT documented in this encounter Progress Notes * [...] QI(U) Negative Bilirubin Negative pH 7.0 Specific [place] 1.015 Urobilinogen 0.2 Test, POCT, Urine (Lab) [...] Pathogen Panel, PCR, Feces Celiac Disease [facility] [place] ondansetron ODT (ZOFRAN-ODT) 4 mg disintegrating tablet [...] medications discussed. Questions answered. Mario Valle P.A.-C. PRODUCTION ASSISTANT documented in this encounter Plan of Treatment [...] DISEASE COMPREHENSIVE CASCADE STAT 03/27/2023 11:44 AM POST PRODUCTION ASSISTANT Abdominal Pain TISSUE TRANSGLUTAMINASE (TTG) AB, IGA, S STAT 03/27/2023 11:44 AM POST PRODUCTION ASSISTANT URINALYSIS WITH MICROSCOPIC IF INDICATED, U STAT 03/27/2023 10:03 AM POST PRODUCTION ASSISTANT Abdominal Pain HC URINALYSIS AUTO W MICRO STAT 03/27/2023 10:03 AM POST PRODUCTION ASSISTANT BACTERIAL CULTURE, AEROBIC + SUSC, URINE STAT 03/27/2023 10:03 AM POST PRODUCTION ASSISTANT Abdominal Pain TEST, POCT, U (LAB) STAT 03/27/2023 10:03 AM POST PRODUCTION ASSISTANT Abdominal Pain CBC WITH DIFFERENTIAL, B STAT 024 9:32 AM POST PRODUCTION ASSISTANT Abdominal Pain C-REACTIVE PROTEIN (CRP), S/P STAT 03/27/2023 9:32 AM POST PRODUCTION ASSISTANT Abdominal Pain LIPASE, S/P STAT 03/27/2023 9:32 AM POST PRODUCTION ASSISTANT Abdominal Pain COMPREHENSIVE METABOLIC PANEL, S/P STAT 03/27/2023 9:32 AM POST PRODUCTION ASSISTANT Abdominal Pain documented in this encounter Results * tTG (Tissue Transglutaminase), Antibody, IgA (03/27/2023 11:44 AM POST PRODUCTION ASSISTANT) Tissue Transglutaminase Ab, IgA, S <1.2 <4.0 (Negative ) U/mL 03/30/2023 12:34 PM POST PRODUCTION ASSISTANT [facility] Blood 03/27/2023 11:4 4 AM POST PRODUCTION ASSISTANT 03/29/2023 3:34 PM POST PRODUCTION ASSISTANT Mario Valle P.A.-C. LAB BLOOD A DD-ON [facility] [address] [place] [address] [facility] [address] [place] [address] * Celiac Disease [facility] [place] (03/27/2023 11:44 AM POST PRODUCTION ASSISTANT) HLA-DQA1 Locus Molecular 01:03, 05 Not Applicable 03/31/2023 2:18 PM POST PRODUCTION ASSISTANT DBB8 HLA-DQB1 Locus Molecular 03:03, 06:03 Not Applicable 03/31/2023 2:18 PM POST PRODUCTION ASSISTANT DBB8 Comment: DQ Serologic Equivalent: 9, 6 Celiac Gene Pairs Present? No 03/31/2023 2:18 PM POST PRODUCTION ASSISTANT DBB8 Comment: Method: Molecular typing of HLA [...] if ethnic specific resolution is required. CLIA: [id number] ??CLIA Sheeting Puller: KLAUS MANCUSO MD,PhD Immunoglobulin A (IgA), S 122 61 - 356 mg/dL 03/29/2023 2:59 PM POST PRODUCTION ASSISTANT [facility] Celiac Disease Interpretation See Comment: Permissive genes absent and negative serology. Celiac disease extremely unlikely. 03/31/2023 10:53 PM POST PRODUCTION ASSISTANT [facility] Blood (Blood, Venous) 03/27/2023 11:44 AM POST PRODUCTION ASSISTANT 03/29/2023 8:00 AM POST PRODUCTION ASSISTANT Narrative [facility] - 03/31/2023 10:53 PM POST PRODUCTION ASSISTANT Specimen Information: Specimen ID: [id number] Specimen Type: Blood Specimen Collection Start Date: 03/27/2023 11:44 AM Specimen Received Date: 03/29/2023 ??8:00 AM Specimen ID: [id number] Specimen Type: Blood Specimen Collection Start Date: 03/27/2023 11:44 AM Specimen Received Date: 03/29/2023 ??6:42 AM Specimen ID: [id number] Specimen Type: Blood Specimen Collection Start Date: 03/27/2023 11:44 AM Specimen Received Date: 03/29/2023 ??7:40 AM Mario Valle P.A.-C. LAB BLOOD N ON ADD-ON [facility] [address] [place] [address] DBB8 [facility] [address] [place] [address] [facility] [address] [place] [address] [facility] [address] [place] [address] [place] [address] * CT Abdomen Pelvis with IV Contrast (03/27/2023 10:35 AM POST PRODUCTION ASSISTANT) Anatomical Region Laterality Modality Abdomen, Pelvis, Abdominal R ST LOS, Abdominal ARZ LOS, Abdominal FLA LOS N/A Computed Tomography 03/27/2023 10:3 9 AM POST PRODUCTION ASSISTANT Impressions 03/27/2023 11:01 AM POST PRODUCTION ASSISTANT 1. Normal-appearing appendix. 2. No acute intra-abdominal/pelvic pathology, no CT findings to explain the patient's symptoms of right lower quadrant abdominal pain. Narrative 03/27/2023 11:01 AM POST PRODUCTION ASSISTANT EXAM: CT ABDOMEN PELVIS WITH IV CONTRAST [...] appendix in the right lower quadrant on -910 of series 3. No small bowel or [...] Aerobic + Susceptibility, Urine (03/27/2023 10:03 AM POST PRODUCTION ASSISTANT) Pathologist [facility] Urine Culture with mixed microbiota(A) 03/30/2023 6:38 AM POST PRODUCTION ASSISTANT MKTO Urine Culture PSEUDOMONAS AERUGINOSA >100,000 cfu/mL (A) 03/30/2023 6:38 AM POST PRODUCTION ASSISTANT MKTO Urine Culture KLEBSIELLA PNEUMONIAE COMPLEX 10,000-100,000 cfu/mL (A) 03/30/2023 6:38 AM POST PRODUCTION ASSISTANT MKTO Urine (Urine, Midstream) 03/27/2023 10:03 AM POST PRODUCTION ASSISTANT 03/27/2023 4:21 PM POST PRODUCTION ASSISTANT Comment:Specimen Source Site : Urine Narrative Organism [...] P.A.-C. LAB MICROBI OLOGY - GENERAL ORDERABLES [facility] [address] [place] [address], [facility] in [place] [address] [place] [address] * (ABNORMAL) Microscopic Manual (03/27/2023 10:03 AM POST PRODUCTION ASSISTANT) White Blood Cells Occ-3 /hpf 03/27/2023 10:32 AM POST PRODUCTION ASSISTANT NPRG Comment: ----REFERENCE VALUE---- Males: 0-3 Females: 0-10 Unknown: 0-10 Red Blood Cells None Seen 0 - 2 /hpf 03/27/2023 10:32 AM POST PRODUCTION ASSISTANT NPRG Squamous Cells Occ-3 /hpf 03/27/2023 10:32 AM POST PRODUCTION ASSISTANT NPRG Bacteria Present(A) None Seen 03/27/2023 10:32 AM POST PRODUCTION ASSISTANT NPRG Urine 03/27/2023 10:0 3 AM POST PRODUCTION ASSISTANT 03/27/2023 10:17 AM POST PRODUCTION ASSISTANT Mario Valle P.A.-C. LAB URINE O RDERABLES Performing Organization Address [facility] Co de Phone Number [facility] [address] [place] [address], [facility] NPRG [address] [address] * Test, POCT, Urine (Lab) (03/27/2023 10:03 AM POST PRODUCTION ASSISTANT) Test, POCT, U Negative 03/27/2023 10:25 AM POST PRODUCTION ASSISTANT NPRG Urine (Urine, Midstream) 03/27/2023 10:03 AM POST PRODUCTION ASSISTANT 03/27/2023 10:17 AM POST PRODUCTION ASSISTANT Mario Valle P.A.-C. LAB POCT OR DERABLES - DEVICE Performing Organization Address [facility] Co de Phone Number [facility] [address] [place] [address], [facility] NPRG [address] [address] * (ABNORMAL) Urinalysis with Microscopic if Indicated (03/27/2023 10:03 AM POST PRODUCTION ASSISTANT) Source Urine, Urine, Midstream 03/27/2023 10:17 AM POST PRODUCTION ASSISTANT NPRG Clarity Clear Clear 03/27/2023 10:20 AM POST PRODUCTION ASSISTANT NPRG Color Yellow 03/27/2023 10:20 AM POST PRODUCTION ASSISTANT NPRG Comment: ----REFERENCE VALUE---- Colorless Yellow Chasity Blood Negative Negative 03/27/2023 10:20 AM POST PRODUCTION ASSISTANT NPRG Nitrite Negative Negative 03/27/2023 10:20 AM POST PRODUCTION ASSISTANT NPRG Leukocyte Esterase Small(A) Negative 03/27/2023 10:20 AM POST PRODUCTION ASSISTANT NPRG Protein Negative mg/dL 03/27/2023 10:20 AM POST PRODUCTION ASSISTANT NPRG Comment: ----REFERENCE VALUE---- Negative Trace Glucose Negative Negative mg/dL 03/27/2023 10:20 AM POST PRODUCTION ASSISTANT NPRG Ketones, QI(U) Negative Negative mg/dL 03/27/2023 10:20 AM POST PRODUCTION ASSISTANT NPRG Bilirubin Negative Negative 03/27/2023 10:20 AM POST PRODUCTION ASSISTANT NPRG pH 7.0 5.0 - 8.0 03/27/2023 10:20 AM POST PRODUCTION ASSISTANT NPRG Specific [place] 1.015 1.001 - 1.035 03/27/2023 10:20 AM POST PRODUCTION ASSISTANT NPRG Urobilinogen 0.2 0.2 - 1.0 mg/dL 03/27/2023 10:20 AM POST PRODUCTION ASSISTANT NPRG Urine (Urine, Midstream) 03/27/2023 10:03 AM POST PRODUCTION ASSISTANT 03/27/2023 10:17 AM POST PRODUCTION ASSISTANT Mario Valle P.A.-C. LAB URINE O RDERABLES Performing Organization Address [facility]/ZIP Co de Phone Number [facility] [address] [place] [address], [facility] [address] [address] * Lipase (03/27/2023 9:32 AM POST PRODUCTION ASSISTANT) Lipase, P 36 13 - 60 U/L 03/27/2023 10:02 AM POST PRODUCTION ASSISTANT NPRG Blood (Blood, Venous) 03/27/2023 9:32 AM POST PRODUCTION ASSISTANT 03/27/2023 9:37 AM POST PRODUCTION ASSISTANT Mario Valle P.A.-C. LAB BLOOD A DD-ON Performing Organization Address [facility]/ZIP Co de Phone Number [facility] [address] [place] [address], [address] [address] * (ABNORMAL) CRP (C-Reactive Protein) (03/27/2023 9:32 AM POST PRODUCTION ASSISTANT) C-Reactive Protein (CRP), P 15.2(H) <5.0 mg/L 03/27/2023 10:02 AM POST PRODUCTION ASSISTANT NPRG Blood (Blood, Venous) 03/27/2023 9:32 AM POST PRODUCTION ASSISTANT 03/27/2023 9:37 AM POST PRODUCTION ASSISTANT Mario Valle P.A.-C. LAB BLOOD A DD-ON [facility] [address] [place] [address], [facility] NPRG [facility] [address] [place] [address] * Comprehensive Metabolic Panel (03/27/2023 9:32 AM POST PRODUCTION ASSISTANT) Potassium, P 4.0 3.6 - 5.2 mmol/L 03/27/2023 10:02 AM POST PRODUCTION ASSISTANT NPRG Sodium, P 139 135 - 145 mmol/L 03/27/2023 10:02 AM POST PRODUCTION ASSISTANT NPRG Chloride, P 105 98 - 107 mmol/L 03/27/2023 10:02 AM POST PRODUCTION ASSISTANT NPRG Bicarbonate, P 22 22 - 29 mmol/L 03/27/2023 10:02 AM POST PRODUCTION ASSISTANT NPRG Anion Gap, P 12 7 - 15 03/27/2023 10:02 AM POST PRODUCTION ASSISTANT NPRG BUN (Blood Urea Nitrogen), P 8 6 - 21 mg/dL 03/27/2023 10:02 AM POST PRODUCTION ASSISTANT NPRG Creatinine 0.87 0.59 - 1.04 mg/dL 03/27/2023 10:02 AM POST PRODUCTION ASSISTANT NPRG Estimated GFR (eGFR) 86 >=60 mL/min/BS A 03/27/2023 10:02 AM POST PRODUCTION ASSISTANT NPRG Comment: Estimated GFR calculated using the 2020 CKD_EPI creatinine equation. Calcium, Total, P 9.1 8.6 - 10.0 mg/dL 03/27/2023 10:02 AM POST PRODUCTION ASSISTANT NPRG Glucose, P 93 70 - 140 mg/dL 03/27/2023 10:02 AM POST PRODUCTION ASSISTANT NPRG Protein, Total, P 6.5 6.3 - 7.9 g/dL 03/27/2023 10:02 AM POST PRODUCTION ASSISTANT NPRG Albumin, P 4.0 3.5 - 5.0 g/dL 03/27/2023 10:02 AM POST PRODUCTION ASSISTANT NPRG Aspartate Aminotransferase (AST), P 14 8 - 43 U/L 03/27/2023 10:02 AM POST PRODUCTION ASSISTANT NPRG Alkaline Phosphatase, P 69 35 - 104 U/L 03/27/2023 10:02 AM POST PRODUCTION ASSISTANT NPRG Alanine Aminotransferase (ALT), P 30 7 - 45 U/L 03/27/2023 10:02 AM POST PRODUCTION ASSISTANT NPRG Bilirubin, Total, P 0.5 0.0 - 1.2 mg/dL 03/27/2023 10:02 AM POST PRODUCTION ASSISTANT NPRG Blood (Blood, Venous) 03/27/2023 9:32 AM POST PRODUCTION ASSISTANT 03/27/2023 9:37 AM POST PRODUCTION ASSISTANT Mario Valle P.A.-C. LAB BLOOD A DD-ON [facility] [address] [place] [address], [facility] NPRG [facility] [address] [place] [address] * CBC with Differential, Blood (03/27/2023 9:32 AM POST PRODUCTION ASSISTANT) Hemoglobin 13.9 11.6 - 15.0 g/dL 03/27/2023 9:41 AM POST PRODUCTION ASSISTANT NPRG Hematocrit 42.7 35.5 - 44.9 % 03/27/2023 9:41 AM POST PRODUCTION ASSISTANT NPRG Erythrocytes 4.95 3.92 - 5.13 x10(12)/L 03/27/2023 9:41 AM POST PRODUCTION ASSISTANT NPRG MCV 86.3 78.2 - 97.9 fL 03/27/2023 9:41 AM POST PRODUCTION ASSISTANT NPRG RBC Distrib Width 14.7 12.2 - 16.1 % 03/27/2023 9:41 AM POST PRODUCTION ASSISTANT NPRG Platelet Count 278 157 - 371 x10(9)/L 03/27/2023 9:41 AM POST PRODUCTION ASSISTANT NPRG Leukocytes 7.4 3.4 - 9.6 x10(9)/L 03/27/2023 9:41 AM POST PRODUCTION ASSISTANT NPRG Neutrophils 5.52 1.56 - 6.45 x10(9)/L 03/27/2023 9:41 AM POST PRODUCTION ASSISTANT NPRG Lymphocytes 1.09 0.95 - 3.07 x10(9)/L 03/27/2023 9:41 AM POST PRODUCTION ASSISTANT NPRG Monocytes 0.65 0.26 - 0.81 x10(9)/L 03/27/2023 9:41 AM POST PRODUCTION ASSISTANT NPRG Eosinophils 0.16 0.03 - 0.48 x10(9)/L 03/27/2023 9:41 AM POST PRODUCTION ASSISTANT NPRG Basophils 0.01 0.01 - 0.08 x10(9)/L 03/27/2023 9:41 AM POST PRODUCTION ASSISTANT NPRG Blood (Blood, Venous) 03/27/2023 9:32 AM POST PRODUCTION ASSISTANT 03/27/2023 9:37 AM POST PRODUCTION ASSISTANT Mario Valle P.A.-C. LAB BLOOD A DD-ON [facility] [address] [place] [address], [facility] NPRG [facility] [employer] [address] [place] [address] documented in this encounter Visit Diagnoses Diagnosis Abdominal Pain- Primary Abdominal Pain documented in this encounter Additional Health Concerns Assessment Noted Time PHQ-9 Depression Total Score: 3 04/23/19 22 8:30 AM POST PRODUCTION ASSISTANT documented as of this encounter Care Teams Tire Mold Tester Relationship Specialty Start Date End Date Elsewhere, Pcp PCP - General Internal Medicine 01/07/22 documented as of this encounter
--- OUTSIDE RECORDS SUMMARY | 2023-04-12 10:28 | XMS_ITS | Encounter Summary ---
Author Name Unknown Organization [facility] Address [address] [place] [address] Care Team Providers Care Obstetrics Teacher Name Role Phone Elsewhere, Pcp Primary Care Provider Unavailabl e Reason for Referral * MRI/CAT/PET Scan (Routine) - Closed Specialty Diagnoses / Procedures Referred By Polinaac t Referred To Contact Radiology Diagnoses Abdominal Pain Procedures CT Abdomen Pelvis with IV Contrast Mario Valle P.A.-C. [address] [place] [phone] [facility] Referral ID Status Reason Start Date Expiration Date Visits Re quested Visits Authorized [id number] Closed 03/27/2023 03/26/2024 1 1 OL BUS ATTENDANT Reason for Visit * MRI/CAT/PET Scan (Routine) - Closed Specialty Diagnoses / Procedures Referred By Contac t Referred To Contact Radiology Diagnoses Abdominal Pain Procedures CT Abdomen Pelvis with IV Contrast Mario Valle P.A.-C. [address] [place] [phone] [facility] Referral ID Status Reason Start Date Expiration Date Visits Re quested Visits Authorized [id number] Closed 03/27/2023 03/26/2024 1 1 Encounter Details Date Type Department Care Team (Latest Contact Info) Description 03/27/2023 10:14 AM SCHOOL BUS ATTENDANT - 03/27/2023 11:59 PM SCHOOL BUS ATTENDANT Hospital Encounter Department of Radiology in [place], [place] [address] [place] [address] Mraio Valle P.A.-C. [address] [place] [address] Abdominal Pain Discharge Disposition: Home or [...] often do you attend chur ch or alevism services? 1 to 4 times per year 04/03/2022 Do you belong to any clubs o r organizations such as scientology groups, unions, fraternal or athletic groups, or [...] inpatients and all outpatients) 03/27/2023 10:35 AM SCHOOL BUS ATTENDANT Abdominal Pain documented in this encounter Results * CT Abdomen Pelvis with IV Contrast (03/27/2023 10:35 AM SCHOOL BUS ATTENDANT) Anatomical Region Laterality Modality Abdomen, Pelvis, Abdominal R ST LOS, Abdominal ARZ LOS, Abdominal FLA LOS N/A Computed Tomography 03/27/2023 10:3 9 AM SCHOOL BUS ATTENDANT Impressions 03/27/2023 11:01 AM SCHOOL BUS ATTENDANT 1. Normal-appearing appendix. 2. No acute intra-abdominal/pelvic pathology, no CT findings to explain the patient's symptoms of right lower quadrant abdominal pain. Narrative 03/27/2023 11:01 AM SCHOOL BUS ATTENDANT EXAM: CT ABDOMEN PELVIS WITH IV CONTRAST [...] appendix in the right lower quadrant on [id number] of series 3. No small bowel or [...] abdominal pain. Mario Valle P.A.-C. [facility] [place] documented in this encounter [...] Radiant Medication Guidelines Given 03/27/2023 10:36 AM SCHOOL BUS ATTENDANT 140 mL NaCl 0.9 % bolus 100 mL 100 mL, intravenous, at 100 mL/hr, Administer over 1 Hours, Once in imaging, Post Contrast, Starting on 03/27/23 at 1025, For 1 dose Bolus from Bag 03/27/2023 10:40 AM SCHOOL BUS ATTENDANT 100 mL 100 mL/hr sodium chloride 0.9 % injection 10 mL 10 mL, intravenous, Once in imaging, line care, Starting on 03/27/23 at 1025, For 1 dose Given 03/27/2023 10:36 AM SCHOOL BUS ATTENDANT 10 mL documented in this encounter Additional Health Concerns Assessment Noted Time PHQ-9 Depression Total Score: 3 04/23/19 22 8:30 AM SCHOOL BUS ATTENDANT documented as of this encounter Care Teams Obstetrics Teacher Relationship Specialty Start Date End Date Elsewhere, Pcp PCP - General Internal Medicine 01/07/22 documented as of this encounter
--- OUTSIDE RECORDS SUMMARY | 2023-04-12 10:29 | XMS_ITS | Encounter Summary ---
Author Name Unknown Organization [facility] Address [address] [place] [address] Care Team Providers Care Warehouse Logistics Coordinator Name Role Phone Elsewhere, Pcp Primary Care Provider Unavailabl e Reason for Referral * Outpatient (Routine) - Authorized Specialty Diagnoses / Procedures Referred By Tania beckett Referred To Contact Emergency Medicine Diagnoses Pain Left Lower Quadrant Pain Left Upper Quadrant Ronal Henderson M.D. [facility] [place] [address] [facility] Region Referral ID Status Reason Start Date Expiration Date V isits Requested Visits Authorized [id number] Authorized 03/08/2023 03/07/2026 1 1 Scheduling Instructions Patient will likely require EGD CH BILLING PAYROLL CLERK * Outpatient (Routine) - Closed Specialty Diagnoses / Procedures Referred By Tania beckett Referred To Contact Diagnoses Pain Left Lower Quadrant Procedures FL Esophagram Single Contrast Ronal Henderson M.D. [address] [place] [address] [facility] Region Referral ID Status Reason Start Date Expiration Date Visits Re quested Visits Authorized [id number] Closed 03/08/2023 03/07/2024 1 1 CH BILLING PAYROLL CLERK Reason for Visit * Reason Comments Abdominal Pain Abd and epigastric p ain for several months. Has appt with GI in a few months. Today has worsening pain and nausea. Encounter Details Date Type Department Care Team (Late st Contact Info) Description 03/08/2023 1:52 PM BRANCH BILLING PAYROLL CLERK - 03/08/2023 4:01 PM BRANCH BILLING PAYROLL CLERK Emergency [facility] [place] [facility] [address] [place] [address] Ronal Henderson M.D. [address] [place] [address] Pain Left Lower Quadrant (Primary [...] often do you attend chur ch or zoroastrian services? 1 to 4 times per year 04/03/2022 Do you belong to any clubs o r organizations such as sabianism groups, unions, fraternal or athletic groups, or [...] Answer Date Recorded PHQ-2 Score 0 12/10/2021 [facility] - Occupational Stress Questionnaire Answer Date [...] Comments Blood Pressure 128/112 03/08/2023 3:45 PM BRANCH BILLING PAYROLL CLERK Pulse 79 03/08/2023 3:45 PM BRANCH BILLING PAYROLL CLERK Temperature 36.6 ??C (97.9 ??F) 03/08/2023 1:51 PM CS T Respiratory Rate 20 03/08/2023 1:51 PM BRANCH BILLING PAYROLL CLERK Oxygen Saturation 99% 03/08/2023 3:45 PM BRANCH BILLING PAYROLL CLERK Inhaled Oxygen Concentration - - Weight 106 kg (233 lb 11 oz) 03/08/2023 1:51 PM BRANCH BILLING PAYROLL CLERK Height - - Body Mass Index 37.72 08/30/2022 9:01 PM CDT documented in this encounter Discharge Instructions * Discharge Instructions* Ronal Henderson M.D. - 03/08/2023 3:38 PM BRANCH BILLING PAYROLL CLERK I have requested upper GI fluoroscopy and very prompt GI follow up. In the interim please try Bentryl for symptom control. CH BILLING PAYROLL CLERK * Attachments The following attachments cannot be sent through Care Everywhere. * Abdominal Pain Adult [id number] (Niuean) documented in this encounter Medications at Time [...] does report very thorough workup from outside [facility] facility which includes 9 CT scans, ultrasound, [...] Abdominal Pain Ronal Henderson M.D. 03/09/23 0723 CH BILLING PAYROLL CLERK documented in this encounter Plan of Treatment Scheduled Referrals Name Type Priority Associated Diagnoses Order Schedule POST ED VISIT Gastroenterology and Hepatology Outpatient Referral Routine Pain Left Lower Quadrant Pain Left Upper Quadrant Expected: 03/08/2023 (Approximate), Expires: 06/06/2024 documented as of this encounter Procedures Procedure Name Priority Date/Time Associated Diagnosis Comments CBC WITH DIFFERENTIAL, B STAT 03/08/2023 2:50 PM BRANCH BILLING PAYROLL CLERK LIPASE, S/P STAT 03/08/2023 2:50 PM BRANCH BILLING PAYROLL CLERK COMPREHENSIVE METABOLIC PANEL, S/P STAT 03/08/2023 2:50 PM BRANCH BILLING PAYROLL CLERK URINALYSIS WITH MICROSCOPIC STAT 03/08/2023 2:43 PM BRANCH BILLING PAYROLL CLERK documented in this encounter Results * FL Esophagram Single Contrast (03/25/2023 10:08 AM BRANCH BILLING PAYROLL CLERK) Anatomical Region Laterality Modality Gastro Intestinal, Abdominal RST LOS, Abdominal ARZ LOS, Abdominal FLA LOS N/A Digital Radiography Impressions 03/25/2023 10:13 AM BRANCH BILLING PAYROLL CLERK Small sliding-type hiatal hernia. No reflux observed. Narrative 03/25/2023 10:13 AM BRANCH BILLING PAYROLL CLERK EXAM: FL ESOPHAGRAM SINGLE CONTRAST FINDINGS: Normal [...] reflux observed. Ronal Henderson M.D. IMG FLUOROSCOPY MA OCEDURES * Lipase (03/08/2023 2:50 PM BRANCH BILLING PAYROLL CLERK) Lipase, P 52 13 - 60 U/L 03/08/2023 3: 19 PM BRANCH BILLING PAYROLL CLERK [facility] Blood (Blood, Venous) 03/08/2023 2:50 PM BRANCH BILLING PAYROLL CLERK 03/08/2023 2:55 PM BRANCH BILLING PAYROLL CLERK Ronal Henderson M.D. LAB BLOOD ADD-ON [facility] [address] [place] [address], [facility] [place] [address] [place] [id number] * (ABNORMAL) CBC with Differential, Blood (03/08/2023 2:50 PM BRANCH BILLING PAYROLL CLERK) [facility] Hemoglobin 14.8 11.6 - 15.0 g/dL 03/08/2023 3:01 PM BRANCH BILLING PAYROLL CLERK [facility] Hematocrit 44.7 35.5 - 44.9 % 03/08/2023 3:01 PM BRANCH BILLING PAYROLL CLERK [facility] Erythrocytes 5.29(H) 3.92 - 5.13 x10(12)/L 03/08/2023 3:01 PM BRANCH BILLING PAYROLL CLERK [facility] MCV 84.5 78.2 - 97.9 fL 03/08/2023 3:01 PM BRANCH BILLING PAYROLL CLERK [facility] RBC Distrib Width 13.6 12.2 - 16.1 % 03/08/2023 3:01 PM BRANCH BILLING PAYROLL CLERK [facility] Platelet Count 303 157 - 371 x10(9)/L 03/08/2023 3:01 PM BRANCH BILLING PAYROLL CLERK [facility] Leukocytes 8.8 3.4 - 9.6 x10(9)/L 03/08/2023 3:01 PM BRANCH BILLING PAYROLL CLERK [facility] Neutrophils 5.44 1.56 - 6.45 x10(9)/L 03/08/2023 3:00 PM BRANCH BILLING PAYROLL CLERK [facility] Lymphocytes 2.64 0.95 - 3.07 x10(9)/L 03/08/2023 3:01 PM BRANCH BILLING PAYROLL CLERK [facility] Monocytes 0.54 0.26 - 0.81 x10(9)/L 03/08/2023 3:01 PM BRANCH BILLING PAYROLL CLERK [facility] Eosinophils 0.16 0.03 - 0.48 x10(9)/L 03/08/2023 3:01 PM BRANCH BILLING PAYROLL CLERK [facility] Basophils 0.05 0.01 - 0.08 x10(9)/L 03/08/2023 3:01 PM BRANCH BILLING PAYROLL CLERK [facility] Blood (Blood, Venous) 03/08/2023 2:50 PM BRANCH BILLING PAYROLL CLERK 03/08/2023 2:55 PM BRANCH BILLING PAYROLL CLERK Ronal Henderson M.D. LAB BLOOD ADD-ON [facility] [address] [place] [address], [facility] [place] [address] [place] [address] * Comprehensive Metabolic Panel (03/08/2023 2:50 PM BRANCH BILLING PAYROLL CLERK) [facility] Potassium, P 3.7 3.6 - 5.2 mmol/L 03/08/2023 3:19 PM BRANCH BILLING PAYROLL CLERK [facility] Sodium, P 138 135 - 145 mmol/L 03/08/2023 3:19 PM BRANCH BILLING PAYROLL CLERK [facility] Chloride, P 102 98 - 107 mmol/L 03/08/2023 3:19 PM BRANCH BILLING PAYROLL CLERK [facility] Bicarbonate, P 23 22 - 29 mmol/L 03/08/2023 3:19 PM BRANCH BILLING PAYROLL CLERK [facility] Anion Gap, P 13 7 - 15 03/08/2023 3:19 PM BRANCH BILLING PAYROLL CLERK [facility] BUN (Blood Urea Nitrogen), P 14 6 - 21 mg/dL 03/08/2023 3:19 PM BRANCH BILLING PAYROLL CLERK [facility] Creatinine 0.92 0.59 - 1.04 mg/dL 03/08/2023 3:19 PM BRANCH BILLING PAYROLL CLERK [facility] Estimated GFR (eGFR) 80 >=60 mL/min/BS A 03/08/2023 3:19 PM BRANCH BILLING PAYROLL CLERK [facility] Comment: Estimated GFR calculated using the 2020 CKD_EPI creatinine equation. Calcium, Total, P 10.0 8.6 - 10.0 mg/dL 03/08/2023 3:19 PM BRANCH BILLING PAYROLL CLERK [facility] Glucose, P 89 70 - 140 mg/dL 03/08/2023 3:19 PM BRANCH BILLING PAYROLL CLERK [facility] Protein, Total, P 7.2 6.3 - 7.9 g/dL 03/08/2023 3:19 PM BRANCH BILLING PAYROLL CLERK [facility] Albumin, P 4.4 3.5 - 5.0 g/dL 03/08/2023 3:19 PM BRANCH BILLING PAYROLL CLERK [facility] Aspartate Aminotransferase (AST), P 16 8 - 43 U/L 03/08/2023 3:19 PM BRANCH BILLING PAYROLL CLERK [facility] Alkaline Phosphatase, P 76 35 - 104 U/L 03/08/2023 3:19 PM BRANCH BILLING PAYROLL CLERK [facility] Alanine Aminotransferase (ALT), P 10 7 - 45 U/L 03/08/2023 3:19 PM BRANCH BILLING PAYROLL CLERK [facility] Bilirubin, Total, P 0.4 0.0 - 1.2 mg/dL 03/08/2023 3:19 PM BRANCH BILLING PAYROLL CLERK [facility] Blood (Blood, Venous) 03/08/2023 2:50 PM BRANCH BILLING PAYROLL CLERK 03/08/2023 2:55 PM BRANCH BILLING PAYROLL CLERK Ronal Henderson M.D. LAB BLOOD ADD-ON [facility] [address] [place] [address], [facility] [place] [address] [place] [address] * (ABNORMAL) Urinalysis with Microscopic: Urine, Midstream (03/08/2023 2:43 PM BRANCH BILLING PAYROLL CLERK) Source Urine, Urine, Midstream 03/08/2023 3:00 PM BRANCH BILLING PAYROLL CLERK [facility] Clarity Clear Clear 03/08/2023 3:00 PM BRANCH BILLING PAYROLL CLERK [facility] Color Yellow 03/08/2023 3:00 PM BRANCH BILLING PAYROLL CLERK [facility] Comment: ----REFERENCE VALUE---- Colorless Yellow Chasity Blood Negative Negative 03/08/2023 3:00 PM BRANCH BILLING PAYROLL CLERK [facility] Nitrite Negative Negative 03/08/2023 3:00 PM BRANCH BILLING PAYROLL CLERK [facility] Leukocyte Esterase Trace(A) Negative 03/08/2023 3:00 PM BRANCH BILLING PAYROLL CLERK [facility] Protein Negative mg/dL 03/08/2023 3:00 PM BRANCH BILLING PAYROLL CLERK [facility] Comment: ----REFERENCE VALUE---- Negative Trace Glucose Negative Negative mg/dL 03/08/2023 3:00 PM BRANCH BILLING PAYROLL CLERK [facility] Ketone Negative Negative mg/dL 03/08/2023 3:00 PM BRANCH BILLING PAYROLL CLERK [facility] Bilirubin Negative Negative 03/08/2023 3:00 PM BRANCH BILLING PAYROLL CLERK [facility] pH 8.5(A) 5.0 - 8.0 03/08/2023 3:00 PM BRANCH BILLING PAYROLL CLERK [facility] Specific [place] 1.007 1.001 - 1.035 03/08/2023 3:00 PM BRANCH BILLING PAYROLL CLERK [facility] Urobilinogen 0.2 0.2 - 1.0 mg/dL 03/08/2023 3:00 PM BRANCH BILLING PAYROLL CLERK [facility] White Blood Cells Occ-3 /hpf 03/08/2023 3:03 PM BRANCH BILLING PAYROLL CLERK [facility] Comment: ----REFERENCE VALUE---- Males: 0-3 Females: 0-10 Unknown: 0-10 Red Blood Cells None Seen 0 - 2 /hpf 3:03 PM BRANCH BILLING PAYROLL CLERK [facility] Squamous Cells Occ-3 /hpf 03/08/2023 3:03 PM BRANCH BILLING PAYROLL CLERK [facility] Urine (Urine, Midstream) 03/08/2023 2:43 PM BRANCH BILLING PAYROLL CLERK 03/08/2023 2:56 PM BRANCH BILLING PAYROLL CLERK Ronal Henderson M.D. LAB URINE ORDERABL ES [facility] [address] [place] [address], [facility] [place] [address] [place] [address] documented in this encounter Visit Diagnoses Diagnosis [...] For 1 dose Given 03/08/2023 2:50 PM BRANCH BILLING PAYROLL CLERK 25 mg droPERidoL injection 1.25 mg (INAPSINE) 1.25 mg, intravenous, Once, On Wed03/08/23 at 1428, For 1 dose Given 03/08/2023 2:50 PM BRANCH BILLING PAYROLL CLERK 1.25 mg ketorolac injection 15 mg (TORADOL) 15 mg, intravenous, Once, On Wed03/08/23 at 1428, For 1 dose, Adult IV push rate: Over 15 seconds. Peds IV push rate: Over 1 minute. Doses > 15 mg IV/IM are discouraged due to lack of additional analgesic benefit. Given 03/08/2023 2:50 PM BRANCH BILLING PAYROLL CLERK 15 mg sodium chloride 0.9 % injection 2-10 mL 2-10 mL, intravenous, As needed, line care, Starting on Wed03/08/23 at 1427 documented in this encounter Active and Recently Administered Medications Times are shown in BRANCH BILLING PAYROLL CLERK. Scheduled Medication Order 03/06/2023 03/07/2023 03/08/2023 diphenhydrAMINE [...] Total Score: 3 04/23/19 22 8:30 AM BRANCH BILLING PAYROLL CLERK documented as of this encounter Care Teams Warehouse Logistics Coordinator Relationship Specialty Start Date End Date Elsewhere, Pcp PCP - General Internal Medicine 01/07/22 documented as of this encounter
--- OUTSIDE RECORDS SUMMARY | 2023-04-12 10:29 | XMS_ITS | Encounter Summary ---
Author Name Unknown Organization [facility] Address [address] [place] [address] Care Team Providers Care Back Closer Name Role Phone Elsewhere, Pcp Primary Care Provider Unavailabl e Reason for Visit * Reason Comments Shortness of Breath Pt presents feeling short of breath, nauseated and ill. Has not vomited. Pt has occasional cough and feels congested. Encounter Details Date Type Department Care Team ([facility] st Contact Info) Description 03/10/2023 8:44 AM POT FIREMAN - 03/10/2023 11:30 AM POT FIREMAN Emergency [facility] [address] [place] [phone] Jesus Manuel Hensley M.D. [address] [place] [phone] Influenza Like Illness (Primary Dx); Dehydration; Hypokalemia [...] How often do you attend chur or restorationism services? 1 to 4 times per year 04/03/2022 Do you belong to any clubs o r organizations such as bahai groups, unions, fraternal or athletic groups, or [...] Answer Date Recorded PHQ-2 Score 0 12/10/2021 [facility] of Occupat ional Health - Occupational Stress [...] place to sleep or slept in a chcf (including now)? No 04/03/2022 Depression Answer Date [...] Comments Blood Pressure 116/78 03/10/2023 11:00 AM POT FIREMAN Pulse 70 03/10/2023 11:00 AM POT FIREMAN Temperature 36.9 ??C (98.4 ??F) 03/10/2023 8:15 AM CS T Respiratory Rate 18 03/10/2023 11:00 AM POT FIREMAN Oxygen Saturation 100% 03/10/2023 11:00 AM POT FIREMAN Inhaled Oxygen Concentration - - Weight 95.9 kg (211 lb 6.7 oz) 03/10/2023 8:53 A M POT FIREMAN Height 167.6 cm (5' 6) 03/10/2023 8:53 AM POT FIREMAN Body Mass Index 34.12 03/10/2023 8:53 AM POT FIREMAN documented in this encounter Discharge Instructions * Attachments The following attachments cannot be sent through Care Everywhere. * Viral Respiratory Infection [id number]-[id number] (Mexican) documented in this encounter Medications at Time [...] ST-T wave changes. When compared to previous, NJ interval has increased Final Diagnoses: as of 03/10/23 1112 Influenza Like Illness Dehydration Hypokalemia Jesus Manuel Hensley M.D. 03/10/23 1112 FIREMAN documented in this encounter Plan of Treatment Not on file documented as of this encounter Procedures Procedure Name Priority Date/Time Associated Diagnosis Comments ECG STAT 03/10/2023 10:21 AM POT FIREMAN DX CHEST AP OR PA AND LATERAL 2 VIEWS RAD - Semiurgent (Fast; most ED patients; some inpatients) 03/10/2023 9:37 AM POT FIREMAN SARS CORONAVIRUS 2, PCR RAPID, V STAT 03/10/2023 8:49 AM POT FIREMAN INFLUENZA A, B, RSV, PCR, POCT STAT 03/10/2023 8:49 AM POT FIREMAN CBC WITH DIFFERENTIAL, B STAT 03/10/2023 8:39 AM POT FIREMAN BASIC METABOLIC PANEL, S/P STAT 03/10/2023 8:39 AM POT FIREMAN documented in this encounter Results * ECG 12 Lead (03/10/2023 10:21 AM POT FIREMAN) Ventricular Rate ECG/Min 73 BPM MUSE NJ Interval 132 ms MUSE QRSD Interval 90 ms MUSE QT Interval 416 ms MUSE QTC Interval 458 ms MUSE P [place] 66 degrees MUSE R [place] 14 degrees MUSE T Wave [place] -1 degrees MUSE 03/10/2023 10:2 1 AM POT FIREMAN 03/10/2023 10:42 AM POT FIREMAN Impressions MUSE - 03/10/2023 10:40 AM POT FIREMAN Normal sinus rhythm Nonspecific ST and T wave abnormality When compared with ECG of 07-OCT-2022 12:07, NJ interval has increased Reviewed by WHIT Plummer Narrative Procedure Note Daquan Hess M.D., M.P.H. - 03/10/2023 IMPRESSION: Normal sinus rhythm Nonspecific ST and T wave abnormality When compared with ECG of 07-OCT-2022 12:07, NJ interval has increased Reviewed by WHIT Plummer Jesus Manuel Hensley M.D. ECG ORDERABLES MUSE NA * DX Chest AP or PA and Lateral 2 Views (03/10/2023 9:37 AM POT FIREMAN) Anatomical Region Laterality Modality Chest, Thoracic RST LOS, Tho racic ARZ LOS, Thoracic FLA LOS N/A Digital Radiography Impressions 03/10/2023 9:38 AM POT FIREMAN Stable chest, no acute cardiopulmonary disease. Narrative 03/10/2023 9:38 AM POT FIREMAN EXAM: DX CHEST AP OR PA AND [...] PCR, Point of Care (03/10/2023 8:49 AM POT FIREMAN) Influenza A, POCT Negative Negative 03/10/2023 8:53 AM POT FIREMAN NPRG Influenza B, POCT Negative Negative 03/10/2023 8:53 AM POT FIREMAN NPRG Resp Syncytial Virus, POCT Negative Negative 03/10/2023 8:53 AM POT FIREMAN NPRG Swab (Nasopharynx) 03/10/2023 8:49 AM POT FIREMAN 03/10/2023 8:49 AM POT FIREMAN Jesus Manuel Hensley M.D. LAB POCT ORDERABLES - DEVICE Performing Organization Address [facility]/RUST Co de Phone Number [facility] [address] [place] [address], [facility] NPRG [facility] [address] [place] [address] * SARS Coronavirus 2, PCR Rapid Symptomatic (03/10/2023 8:49 AM POT FIREMAN) SARS CoV-2, PCR, Rapid, V Undetected Undetected 03/10/2023 9:12 AM POT FIREMAN NPRG Comment: ----ADDITIONAL INFORMATION---- This RT-PCR test was performed using the [employer] SARS-CoV-2 and Influenza A/B Reagent assay from [employer], which has received Emergency Use Authorization(EUA) by the U.S. Food and Drug Administration. Fact sheets for this Emergency Use Authorization (EUA) assay can be found at the following links: For Healthcare Providers: https://www.fda.gov/media/694414/download For Patients: https://www.fda.gov/media/206942/download SARS Coronavirus 2, Source, Rapid Swab, Nasopharynx 03/10/2023 8:49 AM POT FIREMAN NPRG Swab (Nasopharynx) 03/10/2023 8:49 AM POT FIREMAN 03/10/2023 8:49 AM POT FIREMAN Jesus Manuel Hensley M.D. LAB MICROBIOLOGY - G ENERAL ORDERABLES Performing Organization Address City/[facility]/ZIP Co de Phone Number [facility] [address] [place] [address], [facility] NPRG [facility] [address] [place] [address] * (ABNORMAL) CBC with Differential, Blood (03/10/2023 8:39 AM POT FIREMAN) Hemoglobin 14.3 11.6 - 15.0 g/dL 03/10/2023 8:51 AM POT FIREMAN NPRG Hematocrit 42.9 35.5 - 44.9 % 03/10/2023 8:51 AM POT FIREMAN NPRG Erythrocytes 5.08 3.92 - 5.13 x10(12)/L 03/10/2023 8:51 AM POT FIREMAN NPRG MCV 84.4 78.2 - 97.9 fL 03/10/2023 8:51 AM POT FIREMAN NPRG RBC Distrib Width 14.5 12.2 - 16.1 % 03/10/2023 8:51 AM POT FIREMAN NPRG Platelet Count 293 157 - 371 x10(9)/L 03/10/2023 8:51 AM POT FIREMAN NPRG Leukocytes 8.9 3.4 - 9.6 x10(9)/L 03/10/2023 8:51 AM POT FIREMAN NPRG Neutrophils 6.29 1.56 - 6.45 x10(9)/L 03/10/2023 8:51 AM POT FIREMAN NPRG Lymphocytes 1.51 0.95 - 3.07 x10(9)/L 03/10/2023 8:51 AM POT FIREMAN NPRG Monocytes 0.98(H) 0.26 - 0.81 x10(9)/L 03/10/2023 8:51 AM POT FIREMAN NPRG Eosinophils 0.07 0.03 - 0.48 x10(9)/L 03/10/2023 8:51 AM POT FIREMAN NPRG Basophils 0.03 0.01 - 0.08 x10(9)/L 03/10/2023 8:51 AM POT FIREMAN NPRG Blood (Blood, Venous) 03/10/2023 8:39 AM POT FIREMAN 03/10/2023 8:45 AM POT FIREMAN Jesus Manuel Hensley M.D. LAB BLOOD ADD-ON [facility] [address] [place] [address], [place] NPRG [place] [address] [address] [place] [address] * (ABNORMAL) Basic Metabolic Panel (03/10/2023 8:39 AM POT FIREMAN) Potassium, P 3.4(L) 3.6 - 5.2 mmol/L 03/10/2023 9:05 AM POT FIREMAN NPRG Sodium, P 137 135 - 145 mmol/L 03/10/2023 9:05 AM POT FIREMAN NPRG Chloride, P 102 98 - 107 mmol/L 03/10/2023 9:05 AM POT FIREMAN NPRG Bicarbonate, P 20(L) 22 - 29 mmol/L 03/10/2023 9:05 AM POT FIREMAN NPRG Anion Gap, P 15 7 - 15 03/10/2023 9:05 AM POT FIREMAN NPRG BUN (Blood Urea Nitrogen), P 9 6 - 21 mg/dL 03/10/2023 9:05 AM POT FIREMAN NPRG Creatinine 1.02 0.59 - 1.04 mg/dL 03/10/2023 9:05 AM POT FIREMAN NPRG Estimated GFR (eGFR) 71 >=60 mL/min/BSA 03/10/2023 9:05 AM POT FIREMAN NPRG Comment: Estimated GFR calculated using the 2020 CKD_EPI creatinine equation. Calcium, Total, P 9.9 8.6 - 10.0 mg/dL 03/10/2023 9:05 AM POT FIREMAN NPRG Glucose, P 85 70 - 140 mg/dL 03/10/2023 9:05 AM POT FIREMAN NPRG Blood (Blood, Venous) 03/10/2023 8:39 AM POT FIREMAN 03/10/2023 8:45 AM POT FIREMAN Jesus Manuel Hensley M.D. LAB BLOOD ADD-ON [facility] [address] [place] [address], [place] NPR[place] [address] [address] [place] [address] documented in this encounter Visit Diagnoses Diagnosis [...] 1 dose New Bag 03/10/2023 8:46 AM POT FIREMAN 1,000 mL 1000 mL/hr NaCl 0.9 % bolus 1,000 mL 1,000 mL, intravenous, at 1,000 mL/hr, Administer over 1 Hours, Once, On Wed03/10/23 at 0946, For 1 dose New Bag 03/10/2023 9:49 AM POT FIREMAN 1,000 mL 1000 mL/hr ondansetron (PF) injection 4 mg (ZOFRAN) 4 mg, intravenous, Once, On Wed03/10/23 at 0854, For 1 dose Given 03/10/2023 9:03 AM POT FIREMAN 4 mg potassium chloride ER tablet 20 mEq (KLORCON/K-TAB) 20 mEq, oral, Once, On Wed03/10/23 at 0907, For 1 dose, Swallow whole. Do NOT crush, chew, or split tablet. Given 03/10/2023 9:20 AM POT FIREMAN 20 mEq sodium chloride 0.9 % injection 2-10 mL 2-10 mL, intravenous, As needed, line care, Starting on Wed03/10/23 at 0830 Given 03/10/2023 8:46 AM POT FIREMAN 10 mL documented in this encounter Active and Recently Administered Medications Times are shown in POT FIREMAN. Scheduled Medication Order 03/08/2023 03/09/2023 03/10/2023 NaCl [...] Pending 03/10/2023 03/10/2023 03/10/2023 9 :12 AM POT FIREMAN Assessment Noted Time PHQ-9 Depression Total Score: 3 04/23/19 22 8:30 AM POT FIREMAN documented as of this encounter Care Teams Back Closer Relationship Specialty Start Date End Date Elsewhere, Pcp PCP - General Internal Medicine 01/07/22 documented as of this encounter
--- OUTSIDE RECORDS SUMMARY | 2023-04-12 10:29 | XMS_ITS | Encounter Summary ---
Author Name Unknown Organization [facility] Address [address] [place] [id number] Care Team Providers Care Afternoon Nanny Name Role Phone Elsewhere, Pcp Primary Care Provider Unavailabl e Encounter Details Date Type Department Care Team (Latest Contact Info) Description 03/02/2023 Clinical Communication Division of Gastroenterology in [place], [place] [address] [place] [phone] Thaddeus Cosme [address] [place] [phone] Social History Tobacco Use Types Packs/Day Years [...] often do you attend chur ch or anabaptist services? 1 to 4 times per year 04/03/2022 Do you belong to any clubs o r organizations such as restorationist groups, unions, fraternal or athletic groups, or [...] Answer Date Recorded PHQ-2 Score 0 12/10/2021 [facility] - Occupational Stress Questionnaire Answer Date [...] Pending 03/10/2023 03/10/2023 03/10/2023 9 :12 AM BIOTECH PRODUCTION SPECIALIST Assessment Noted Time PHQ-9 Depression Total Score: 3 04/23/19 22 8:30 AM BIOTECH PRODUCTION SPECIALIST documented as of this encounter Care Teams Afternoon Nanny Relationship Specialty Start Date End Date Elsewhere, Pcp PCP - General Internal Medicine 01/07/22 documented as of this encounter
--- OUTSIDE RECORDS SUMMARY | 2023-04-12 10:29 | XMS_ITS | Encounter Summary ---
Author Name Unknown Organization [facility] Address [address] [place] [address] Care Team Providers Care Carburetor Mechanic Name Role Phone Elsewhere, Pcp Primary Care Provider Unavailabl e Reason for Visit * Reason Comments Dizziness Encounter Details Date Type Department Care Team ([facility] st Contact Info) Description 03/11/2023 8:53 PM MANAGER CHANGE - 03/12/2023 2:30 AM [facility] [address] [place] [phone] Boyd Lynn M.D. [address] [place] [phone] Lightheadedness (Primary Dx) Discharge Disposition: Home or [...] How often do you attend chur or religion services? 1 to 4 times per year 04/03/2022 Do you belong to any clubs o r organizations such as spiritism groups, unions, fraternal or athletic groups, or [...] Recorded PHQ-2 Score 0 12/10/2021 [facility] of Occupat ional Health - Occupational Stress [...] Comments Blood Pressure 122/69 03/12/2023 1:15 AM MANAGER CHANGE Pulse 66 03/12/2023 1:30 AM MANAGER CHANGE Temperature 37 ??C (98.6 ??F) 03/11/2023 9:12 PM MANAGER CHANGE Respiratory Rate 13 03/12/2023 12:30 AM MANAGER CHANGE Oxygen Saturation 99% 03/12/2023 1:30 AM MANAGER CHANGE Inhaled Oxygen Concentration - - Weight - - Height - - Body Mass Index - - documented in this encounter Discharge Instructions * Discharge Instructions* Boyd Lynn M.D. - 03/12/2023 2:30 AM MANAGER CHANGE Unclear cause of your lightheadedness tonight, though [...] care doctor early to mid next week. GER CHANGE documented in this encounter Medications at Time [...] M.D. - 03/11/2023 11:[address] [facility] 03/12/2023 8:25 AM MANAGER CHANGE *Encounter labs and radiology results at the [...] % CANCELED Narrative: Specimen Information: Specimen ID: [id number] Specimen Type: Blood Specimen Collection Start Date: 03/12/2023 12:41 AM Specimen Received Date: 03/12/2023 12:43 AM Specimen ID: [id number] Specimen Type: Blood No orders to display Boyd Lynn M.D. 03/12/23 0830 GER CHANGE documented in this encounter Plan of Treatment Not on file documented as of this encounter Procedures Procedure Name Priority Date/Time Associated Diagnosis Comments TROPONIN T, 2H/6H, 5TH GEN, P Timed 03/12/2023 12:41 AM MANAGER CHANGE TROPONIN T, BASELINE, 5TH GEN, P STAT 03/11/2023 10:57 PM MANAGER CHANGE CBC WITH DIFFERENTIAL, B STAT 03/11/2023 10:57 PM MANAGER CHANGE BASIC METABOLIC PANEL, S/P STAT 03/11/2023 10:57 PM MANAGER CHANGE documented in this encounter Results * Troponin T, 2h/6h, 5th Gen (03/12/2023 12:41 AM MANAGER CHANGE) Troponin T, 2 hr, 5th gen <6 <=10 ng/L 03/12/2023 1:03 AM MANAGER CHANGE NPRG 2H Delta 0 ng/L 03/12/2023 1:03 AM MANAGER CHANGE NPRG 2H Delta Interp Not Changing 03/12/2023 1:03 AM MANAGER CHANGE NPRG Troponin T, 6 hr, 5th gen CANCELED ng/L 03/12/2023 1:03 AM MANAGER CHANGE NPRG Comment:Result canceled by t he ancillary. 6H Delta CANCELED ng/L 03/12/2023 1:03 AM MANAGER CHANGE NPRG Comment:Result canceled by t he ancillary. 6H Delta % CANCELED % 03/12/2023 1:03 AM MANAGER CHANGE NPRG Comment:Result canceled by t he ancillary. Blood (Blood, Venous) 03/12/2023 12:41 AM MANAGER CHANGE 03/12/2023 12:43 AM MANAGER CHANGE Narrative [facility] - 03/12/2023 1:03 AM MANAGER CHANGE Specimen Information: Specimen ID: [id number] Specimen Type: Blood Specimen Collection Start Date: 03/12/2023 12:41 AM Specimen Received Date: 03/12/2023 12:43 AM Specimen ID: [id number] Specimen Type: Blood Boyd Lynn M.D. LAB BLOOD [facility] [address] [place] [address], [facility] NPRG [place] [address] [address] [place] [address] * Troponin T, Baseline, 5th gen (03/11/2023 10:57 PM MANAGER CHANGE) Troponin T, Baseline, 5th gen <6 <=10 ng/L 03/11/2023 11:50 PM MANAGER CHANGE NPRG Blood (Blood, Venous) 03/11/2023 10:57 PM MANAGER CHANGE 03/11/2023 11:01 PM MANAGER CHANGE Boyd Lynn M.D. LAB BLOOD [facility] [address] [place] [address], [place] NPR[place] [address] [address] [place] [address] * Basic Metabolic Panel (03/11/2023 10:57 PM MANAGER CHANGE) Potassium, P 4.0 3.6 - 5.2 mmol/L 03/11/2023 11:25 PM MANAGER CHANGE NPRG Sodium, P 139 135 - 145 mmol/L 03/11/2023 11:25 PM MANAGER CHANGE NPRG Chloride, P 104 98 - 107 mmol/L 03/11/2023 11:25 PM MANAGER CHANGE NPRG Bicarbonate, P 23 22 - 29 mmol/L 03/11/2023 11:25 PM MANAGER CHANGE NPRG Anion Gap, P 12 7 - 15 03/11/2023 11:25 PM MANAGER CHANGE NPRG BUN (Blood Urea Nitrogen), P 9 6 - 21 mg/dL 03/11/2023 11:25 PM MANAGER CHANGE NPRG Creatinine 0.83 0.59 - 1.04 mg/dL 03/11/2023 11:25 PM MANAGER CHANGE NPRG Estimated GFR (eGFR) >90 >=60 mL/min/BSA 03/11/2023 11:25 PM MANAGER CHANGE NPRG Comment: Estimated GFR calculated using the 2020 CKD_EPI creatinine equation. Calcium, Total, P 9.6 8.6 - 10.0 mg/dL 03/11/2023 11:25 PM MANAGER CHANGE NPRG Glucose, P 98 70 - 140 mg/dL 03/11/2023 11:25 PM MANAGER CHANGE NPRG Blood (Blood, Venous) 03/11/2023 10:57 PM MANAGER CHANGE 03/11/2023 11:01 PM MANAGER CHANGE Boyd Lynn M.D. LAB BLOOD ADD-ON [facility] [address] [place] [address], [facility] NPRG [facility] [address] [place] [address] * CBC with Differential, Blood (03/11/2023 10:57 PM MANAGER CHANGE) Hemoglobin 12.9 11.6 - 15.0 g/dL 03/11/2023 11:19 PM MANAGER CHANGE NPRG Hematocrit 39.5 35.5 - 44.9 % 03/11/2023 11:19 PM MANAGER CHANGE NPRG Erythrocytes 4.57 3.92 - 5.13 x10(12)/L 03/11/2023 11:19 PM MANAGER CHANGE NPRG MCV 86.4 78.2 - 97.9 fL 03/11/2023 11:19 PM MANAGER CHANGE NPRG RBC Distrib Width 14.3 12.2 - 16.1 % 03/11/2023 11:19 PM MANAGER CHANGE NPRG Platelet Count 261 157 - 371 x10(9)/L 03/11/2023 11:19 PM MANAGER CHANGE NPRG Leukocytes 7.4 3.4 - 9.6 x10(9)/L 03/11/2023 11:19 PM MANAGER CHANGE NPRG Neutrophils 4.92 1.56 - 6.45 x10(9)/L 03/11/2023 11:19 PM MANAGER CHANGE NPRG Lymphocytes 1.64 0.95 - 3.07 x10(9)/L 03/11/2023 11:19 PM MANAGER CHANGE NPRG Monocytes 0.73 0.26 - 0.81 x10(9)/L 03/11/2023 11:19 PM MANAGER CHANGE NPRG Eosinophils 0.13 0.03 - 0.48 x10(9)/L 03/11/2023 11:19 PM MANAGER CHANGE NPRG Basophils 0.02 0.01 - 0.08 x10(9)/L 03/11/2023 11:19 PM MANAGER CHANGE NPRG Blood (Blood, Venous) 03/11/2023 10:57 PM MANAGER CHANGE 03/11/2023 11:01 PM MANAGER CHANGE Boyd Lynn M.D. LAB BLOOD ADD-ON [facility] [address] [place] [address], [facility] NPRG [facility] [address] [place] [address] documented in this encounter Visit Diagnoses Diagnosis [...] 1 dose New Bag 03/12/2023 12:15 AM MANAGER CHANGE 1,000 mL 1000 mL/hr sodium chloride 0.9 % injection 2-10 mL 2-10 mL, intravenous, As needed, line care, Starting on Belinda 03/11/23 at 2239 documented in this encounter Active and Recently Administered Medications Times are shown in MANAGER CHANGE. Scheduled Medication Order 03/10/2023 03/11/2023 03/12/2023 NaCl [...] Score: 3 04/23/19 22 8:30 AM MANAGER CHANGE documented as of this encounter Care Teams Carburetor Mechanic Relationship Specialty Start Date End Date Elsewhere, Pcp PCP - General Internal Medicine 01/07/22 documented as of this encounter
--- OUTSIDE RECORDS SUMMARY | 2023-04-12 10:29 | XMS_ITS | Encounter Summary ---
Author Name Unknown Organization [facility] Address [address] [place] [address] Care Team Providers Care Hockey Instructor Name Role Phone Elsewhere, Pcp Primary Care Provider Unavailabl e Reason for Visit * Reason Onset Date Comments Med Question 03/08/2023 Encounter Details Date Type Department Care Team (Late st Contact Info) Description 03/08/2023 Nurse Triage [facility] Department of Family Medicine in [place], [place] [address] [place] [phone] Suha Lea, R.N. Med Question Social History [...] often do you attend chur ch or jewish services? 1 to 4 times per year 04/03/2022 Do you belong to any clubs o r organizations such as jehovah's witness groups, unions, fraternal or athletic groups, or [...] Answer Date Recorded PHQ-2 Score 0 12/10/2021 [facility] of Occupat ional Health - [...] Suha Lea, RSonaN. - 03/08/2023 9:44 PM RACE RELATIONS ADVISER Patient calls to verify home medications she would like to take for nausea does not interact with medications given via IV in ED today. Call transferred to [employer] to connect to [facility]. RELATIONS ADVISER documented in this encounter Plan of Treatment Not on file documented as of this encounter Visit Diagnoses Not on filedocumented in this encounter Additional Health Concerns Assessment Noted Time PHQ-9 Depression Total Score: 3 04/23/19 22 8:30 AM RACE RELATIONS ADVISER documented as of this encounter Care Teams Hockey Instructor Relationship Specialty Start Date End Date Elsewhere, Pcp PCP - General Internal Medicine 01/07/22 documented as of this encounter
--- OUTSIDE RECORDS SUMMARY | 2023-04-12 10:29 | XMS_ITS | Encounter Summary ---
Author Name Unknown Organization [facility] Address [address] [place] [address] Care Team Providers Care Chief Administrative Officer Name Role Phone Elsewhere, Pcp Primary Care Provider Unavailabl e Reason for Visit * Reason Comments Heartburn X 1 mos getting wors e Encounter Details Date Type Department Care Team (Late st Contact Info) Description 02/15/2023 1:45 PM GROUP SUPERVISOR YARD Office Visit Urgent Care, [facility], in [place], [place] [address] [place] [phone] Lela Aguiar, P.A.-CSona [address] [place] [address] [phone] Pain Epigastric (Primary Dx) Discharge Disposition: Home [...] often do you attend chur ch or anglican services? 1 to 4 times per year [...] Answer Date Recorded PHQ-2 Score 0 12/10/2021 [facility] of Occupat ional Health - Occupational [...] Comments Blood Pressure 121/87 02/15/2023 1:53 PM GROUP SUPERVISOR YARD Pulse 87 02/15/2023 1:53 PM GROUP SUPERVISOR YARD Temperature 36.3 ??C (97.3 ??F) 02/15/2023 1:53 PM CS T Respiratory Rate - - Oxygen Saturation 100% 02/15/2023 1:53 PM GROUP SUPERVISOR YARD Inhaled Oxygen Concentration - - Weight - [...] Morbid Obesity Body Mass Index 40.0-44.9 Adult ([facility]) 06/05/2021 Bleeding Postcoital 01/30/2022 Resolved Ambulatory Problems [...] by: Lela Aguiar P.A.-C. 02/15/23 6:16 PM GROUP SUPERVISOR YARD P SUPERVISOR YARD documented in this encounter Plan of Treatment Not on file documented as of this encounter Procedures Procedure Name Priority Date/Time Associated Diagnosis Comments CBC WITH DIFFERENTIAL, B STAT 02/15/2023 2:35 PM GROUP SUPERVISOR YARD Pain Epigastric BASIC METABOLIC PANEL, S/P STAT 02/15/2023 2:35 PM GROUP SUPERVISOR YARD Pain Epigastric documented in this encounter Results * Basic Metabolic Panel (02/15/2023 2:35 PM GROUP SUPERVISOR YARD) Potassium, P 4.1 3.6 - 5.2 mmol/L 02/15/2023 3:05 PM GROUP SUPERVISOR YARD NPRG Sodium, P 139 135 - 145 mmol/L 02/15/2023 3:05 PM GROUP SUPERVISOR YARD NPRG Chloride, P 105 98 - 107 mmol/L 02/15/2023 3:05 PM GROUP SUPERVISOR YARD NPRG Bicarbonate, P 25 22 - 29 mmol/L 02/15/2023 3:05 PM GROUP SUPERVISOR YARD NPRG Anion Gap, P 9 7 - 15 02/15/2023 3:05 PM GROUP SUPERVISOR YARD NPRG BUN (Blood Urea Nitrogen), P 10 6 - 21 mg/dL 02/15/2023 3:05 PM GROUP SUPERVISOR YARD NPRG Creatinine 0.82 0.59 - 1.04 mg/dL 02/15/2023 3:05 PM GROUP SUPERVISOR YARD NPRG Estimated GFR (eGFR) >90 >=60 mL/min/BSA 02/15/2023 3:05 PM GROUP SUPERVISOR YARD NPRG Comment: Estimated GFR calculated using the 2020 CKD_EPI creatinine equation. Calcium, Total, P 8.9 8.6 - 10.0 mg/dL 02/15/2023 3:05 PM GROUP SUPERVISOR YARD NPRG Glucose, P 85 70 - 140 mg/dL 02/15/2023 3:05 PM GROUP SUPERVISOR YARD NPRG Blood (Blood, Venous) 02/15/2023 2:35 PM GROUP SUPERVISOR YARD 02/15/2023 2:39 PM GROUP SUPERVISOR YARD Lela Aguiar P.A.-C. LAB BLOOD ADD-ON [facility] [address] [place] [address], [facility] NPRG [facility] [address] [place] [address] * CBC with Differential, Blood (02/15/2023 2:35 PM GROUP SUPERVISOR YARD) Pathologist [facility] Hemoglobin 12.5 11.6 - 15.0 g/dL 02/15/2023 2:48 PM GROUP SUPERVISOR YARD NPRG Hematocrit 39.2 35.5 - 44.9 % 02/15/2023 2:48 PM GROUP SUPERVISOR YARD NPRG Erythrocytes 4.56 3.92 - 5.13 x10(12)/L 02/15/2023 2:48 PM GROUP SUPERVISOR YARD NPRG MCV 86.0 78.2 - 97.9 fL 02/15/2023 2:48 PM GROUP SUPERVISOR YARD NPRG RBC Distrib Width 14.9 12.2 - 16.1 % 02/15/2023 2:48 PM GROUP SUPERVISOR YARD NPRG Platelet Count 285 157 - 371 x10(9)/L 02/15/2023 2:48 PM GROUP SUPERVISOR YARD NPRG Leukocytes 8.8 3.4 - 9.6 x10(9)/L 02/15/2023 2:48 PM GROUP SUPERVISOR YARD NPRG Neutrophils 5.53 1.56 - 6.45 x10(9)/L 02/15/2023 2:48 PM GROUP SUPERVISOR YARD NPRG Lymphocytes 2.50 0.95 - 3.07 x10(9)/L 02/15/2023 2:48 PM GROUP SUPERVISOR YARD NPRG Monocytes 0.53 0.26 - 0.81 x10(9)/L 02/15/2023 2:48 PM GROUP SUPERVISOR YARD NPRG Eosinophils 0.19 0.03 - 0.48 x10(9)/L 02/15/2023 2:48 PM GROUP SUPERVISOR YARD NPRG Basophils 0.03 0.01 - 0.08 x10(9)/L 02/15/2023 2:48 PM GROUP SUPERVISOR YARD NPRG Blood (Blood, Venous) 02/15/2023 2:35 PM GROUP SUPERVISOR YARD 02/15/2023 2:39 PM GROUP SUPERVISOR YARD Lela Aguiar P.A.-C. LAB BLOOD ADD-ON [facility] [address] [place] [address], [facility] NPRG [facility] [address] [place] [address] documented in this encounter Visit Diagnoses Diagnosis [...] prior to administration Given 02/15/2023 2:42 PM GROUP SUPERVISOR YARD 45 mL Audra th documented in this encounter Additional Health Concerns Assessment Noted Time PHQ-9 Depression Total Score: 3 04/23/19 22 8:30 AM GROUP SUPERVISOR YARD documented as of this encounter Care Teams Chief Administrative Officer Relationship Specialty Start Date End Date Elsewhere, Pcp PCP - General Internal Medicine 01/07/22 documented as of this encounter
--- OUTSIDE RECORDS SUMMARY | 2023-04-12 10:29 | XMS_ITS | Encounter Summary ---
Author Name Unknown Organization [facility] Address [address] [place] [address] Care Team Providers Care Neurosurgical Nurse Practitioner Name Role Phone Elsewhere, Pcp Primary Care Provider Unavailabl e Reason for Visit * Reason Comments Constipation Pt presents with fatou oing constipation. Pt was seen in [facility] ED and was increased to 2x day miralax. Pt reports abdominal pain around umbilicus Encounter Details Date Type Department Care Team (Late st Contact Info) Description 08/30/2022 8:07 PM CDT - 08/30/2022 10:34 PM CDT Emergency [place] [facility] [address] [place] [address] [phone] Boyd Lynn M.D. [address] [place] [phone] Discomfort Abdominal (Primary Dx) Discharge Disposition: Home [...] How often do you attend chur or adventist services? 1 to 4 times per year 04/03/2022 Do you belong to any clubs o r organizations such as mormonism groups, unions, fraternal or athletic groups, or [...] Date Recorded PHQ-2 Score 0 12/10/2021 [facility] [place] of Occupat ional Health - Occupational Stress [...] Lynn M.D. - 08/30/2022 10:08 PM CDT [facility] Department of Emergency Medicine- [place] 08/31/2022 1:13 AM CDT *Encounter labs and radiology results at the end of this note* Chief Complaint Patient presents with Constipation Pt presents with ongoing constipation. Pt was seen in [facility] ED and was increased to 2x day [...] had problems with constipation. Seen in the [facility] about a week ago with [...] Total Score: 3 04/23/19 22 8:30 AM FINE ARTS TEACHER documented as of this encounter Care Teams Neurosurgical Nurse Practitioner Relationship Specialty Start Date End Date Elsewhere, Pcp PCP - General Internal Medicine 01/07/22 documented as of this encounter
--- OUTSIDE RECORDS SUMMARY | 2023-04-12 10:29 | XMS_ITS | Encounter Summary ---
Author Name Unknown Organization [facility] Address [address] [place] [address] Care Team Providers Care Boring Machine Operator Helper Name Role Phone Elsewhere, Pcp Primary Care Provider Unavailabl e Reason for Visit * Reason Comments Abdominal Pain Pt presents with per sistent abdominal pain, bloating and constipation. Taking miralx and today had MOM with no relief. Encounter Details Date Type Department Care Team ([facility] st Contact Info) Description 08/28/2022 10:56 PM CDT - 08/29/2022 1:02 AM CDT Emergency [facility] Emergency Department [address] [place] [phone] Jerome Patterson P.A.-C. [address] [place] [phone] Constipation (Primary Dx) Discharge Disposition: Home or [...] How often do you attend chur or scientologist services? 1 to 4 times [...] Answer Date Recorded PHQ-2 Score 0 12/10/2021 [facility] [place] of Occupat ional Health - Occupational Stress [...] Jerome Patterson P.A.-C. DISPOSITION: Home or Self Prison or Self Care FOLLOW UP: With PCP [...] Total Score: 3 04/23/19 22 8:30 AM PRESIDENTIAL SUPPORT SPECIALIST documented as of this encounter Care Teams Boring Machine Operator Helper Relationship Specialty Start Date End Date Elsewhere, Pcp PCP - General Internal Medicine 01/07/22 documented as of this encounter
--- OUTSIDE RECORDS SUMMARY | 2023-04-12 10:29 | XMS_ITS | Encounter Summary ---
Author Name Unknown Organization [facility] Address [address] [place] [address] Care Team Providers Care Aquatic Laborer Name Role Phone Elsewhere, Pcp Primary Care Provider Unavailabl e Reason for Visit * Reason Comments Chest Pain Pt presents to ED wi th mid/left chest pain that began last night. Fibromyalgia hx but reports this new pain feels different. Encounter Details Date Type Department Care Team ([facility] st Contact Info) Description 10/07/2022 12:08 PM CDT - 10/07/2022 2:48 PM CDT Emergency [place] [facility] [address] [place] [phone] Danny Boogie M.D. [address] [place] [phone] Pain Chest Atypical (Primary Dx) Discharge Disposition: [...] Answer Date Recorded PHQ-2 Score 0 12/10/2021 [facility] [place] of Occupat ional Health - Occupational Stress [...] Care Everywhere. * Nonspecific Chest Pain Adult (Welsh) documented in this encounter Medications at Time [...] assessment and management. History provided by: Patient diplomatic interpreter/translator needed/used: no REVIEW OF SYSTEMS Constitutional: Negative [...] Impression IMPRESSION: Normal sinus rhythm with short IA Minimal voltage criteria for LVH, may be [...] Date: 10/07/2022 Normal sinus rhythm with short IA Minimal voltage criteria for LVH, may be [...] ED Prescriptions None DISPOSITION Home or Self Jail or Self Care Danny Boogie M.D. 10/07/22 [...] M.D. LAB BLOOD ADD-ON Performing Organization Address City/[facility]/ZIP Co de Phone Number [facility] [address] [place] [address], [facility] NPRG [address] [address] * Lipase (10/07/2022 12:17 PM CDT) Lipase, P 38 13 - 60 U/L 10/07/2022 1: 01 PM CDT NPRG Blood (Blood, Venous) 10/07/2022 12:17 PM CDT 10/07/2022 12:38 PM CDT Danny Boogie M.D. LAB BLOOD ADD-ON [facility] [address] [place] [address], [facility] NPRG [address] [address] * (ABNORMAL) CBC with Differential, Blood (10/07/2022 [...] CDT Danny Boogie M.D. LAB BLOOD ADD-ON [facility] [address] [place] [address], [facility] NPRG [facility] [address] [place] [address] * Troponin T, Baseline, 5th gen (10/07/2022 12:17 PM CDT) Troponin T, Baseline, 5th gen <6 <=10 ng/L 10/07/2022 12:51 PM CDT NPRG Blood (Blood, Venous) 10/07/2022 12:17 PM CDT 10/07/2022 12:34 PM CDT Danny Boogie M.D. LAB BLOOD [place] IN [facility] [address] [place] [address], [place] NPRG [facility] [address] [place] [address] * (ABNORMAL) Basic Metabolic Panel (10/07/2022 12:17 [...] CDT Danny Boogie M.D. LAB BLOOD ADD-ON [facility] [address] [place] [address], [place] NPRG [facility] [address] [place] [address] * ECG 12 Lead (10/07/2022 12:07 PM CDT) Ventricular Rate ECG/Min 71 BPM MUSE [place] Interval 136 ms MUSE QRSD Interval 86 ms MUSE QT Interval 396 ms MUSE QTC Interval 430 ms MUSE P [place] 45 degrees MUSE R [place] -3 degrees MUSE T Wave [place] 20 degrees MUSE 10/07/2022 12:0 7 PM CDT 10/07/2022 1:13 PM CDT Impressions MUSE - 10/07/2022 1:13 PM CDT Normal sinus rhythm with short IA Minimal voltage criteria for LVH, may be normal variant Nonspecific T wave abnormality When compared with ECG of 30-MAY-2022 09:36, Minimal criteria for Left ventricular hypertrophy are now present Reviewed by WHIT Broderick Narrative Procedure Note Alex Cho M.D. - 10/07/2022 IMPRESSION: Normal sinus rhythm with short IA Minimal voltage criteria for LVH, may be [...] 1235 (Medication Mariah lied - Provider: Jana Leblanc)1441 (Due: Medication Removed - Provider: Discharge Provider, Automatic - Comment: Time automatically adjusted from order being discontinued) documented in this encounter Additional Health Concerns Assessment Noted Time PHQ-9 Depression Total Score: 3 04/23/19 22 8:30 AM GEAR MACHINIST documented as of this encounter Care Teams Aquatic Laborer Relationship Specialty Start Date End Date Elsewhere, Pcp PCP - General Internal Medicine 01/07/22 documented as of this encounter
--- OUTSIDE RECORDS SUMMARY | 2023-04-12 10:30 | XMS_ITS | Encounter Summary ---
Author Name Unknown Organization [facility] Address [address] [place] [address] Care Team Providers Care Weight And Balance Control Agent Name Role Phone Elsewhere, Pcp Primary Care Provider Unavailabl e Reason for Visit * Reason Comments Back Pain Awoke this am feelin g good then developed headache, nausea, and mid back pain, denies urinary symptoms, tylenol at 0730 Encounter Details Date Type Department Care Team (Late st Contact Info) Description 05/30/2022 8:55 AM CDT - 05/30/2022 12:50 PM CDT Emergency [facility] Emergency Department [address] [place] [phone] Wade Lawrence, PAfsaneh.-C., M.S. [address] [place] [phone] Sinusitis (Primary Dx); Pain Chest Atypical Discharge [...] How often do you attend chur or denominational services? 1 to 4 times per year 04/03/2022 Do you belong to any clubs o r organizations such as sabianist groups, unions, fraternal or athletic groups, or [...] Date Recorded PHQ-2 Score 0 12/10/2021 [facility] [place] of Occupat ional Health - Occupational Stress [...] sent through Care Everywhere. * Sinusitis Adult (Tajik) documented in this encounter Medications at Time [...] Ketone Negative Bilirubin Negative pH 6.0 Specific [place] 1.018 Urobilinogen 0.2 White Blood Cells Occ-3 [...] AM CDT 05/30/2022 11:41 AM CDT Narrative [facility] - 05/30/2022 12:11 PM CDT Specimen Information: Specimen ID: [id number] Specimen Type: Blood Specimen Collection Start Date: 05/30/2022 11:34 AM Specimen Received Date: 05/30/2022 11:41 AM Specimen ID: [id number] Specimen Type: Blood Wade Lawrence P.A.-C., M.S. LAB BLOOD TR OPONIN [facility] [address] [place] [address], [facility] [place] [address] * DX Chest Portable 1 View (05/30/2022 [...] No acute findings. Wade Lawrence P.A.-C. M.SSona [facility] DIAGNOST IC IMAGING PROCEDURES * CT Abdomen [...] IMPRESSION: No acute intra-abdominal or intrapelvic abnormality. Wade Lawrence P.A.-C. M.S. IMG CT PROCE DURES * CT Head without IV Contrast (05/30/2022 10:40 AM CDT) Anatomical Region Laterality Modality Head, Neuroradiology RST [facility] , Neuroradiology ARZ [facility], Neuroradiology FLA [facility] N/A Computed Tomography 05/30/2022 10:4 2 AM [...] 8.0 05/30/2022 10:13 AM CDT MKTO Specific [place] 1.018 1.001 - 1.035 05/30/2022 10:13 AM [...] LAB URINE OR DERABLES Performing Organization Address City/[facility]/ZIP Co de Phone Number [facility] [address] [place] [address], [place] [address] * Test, POCT, Urine (lab) (05/30/2022 9:48 AM CDT) Test, POCT, U Negative 05/30/2022 10:19 AM CDT MKTO Urine (Urine, Midstream) 05/30/2022 9:48 AM CDT 05/30/2022 9:56 AM CDT Wade Lawrence P.A.-C. M.S. LAB POCT ORD ERABLES - DEVICE Performing Organization Address [facility] Co de Phone Number [facility] [address] [place] [address], [place] [address] * Troponin T, Baseline, 5th gen (05/30/2022 9:46 AM CDT) Troponin T, Baseline, 5th gen <6 <=10 ng/L 05/30/2022 10:23 AM CDT MKTO Blood (Blood, Venous) 05/30/2022 9:46 AM CDT 05/30/2022 10:01 AM CDT Wade Lawrence P.A.-C. MKarla LAB BLOOD TR OPONIN Performing Organization Address City/[facility]/ZIP Co de Phone Number [facility] [address] [place] [address] * Lipase (05/30/2022 9:46 AM CDT) Lipase, P 40 13 - 60 U/L 05/30/2022 10:22 AM CDT MKTO Blood (Blood, Venous) 05/30/2022 9:46 AM CDT 05/30/2022 10:01 AM CDT Wade Lawrence P.A.-C., M.S. LAB BLOOD AD D-ON Performing Organization Address City/[facility] Co de Phone Number [facility] [address] [place] [address], [place] [address] * (ABNORMAL) Comprehensive Metabolic Panel (05/30/2022 9:46 [...] Lawrence P.A.-C., M.S. LAB BLOOD AD D-ON [facility] [address] [place] [address], [facility] MKTO [facility] [place] [address] * CBC with Differential, Blood (05/30/2022 9:46 [...] Lawrence P.A.-C., M.S. LAB BLOOD AD D-ON [facility] [address] [place] [address], [facility] MKTO [facility] [place] [address] * ECG 12 Lead (05/30/2022 9:36 AM CDT) Ventricular Rate ECG/Min 68 BPM MUSE [place] Interval 132 ms MUSE QRSD Interval 88 ms MUSE QT Interval 384 ms MUSE QTC Interval 408 ms MUSE P [place] 60 degrees MUSE R [place] 11 degrees MUSE T Wave [place] 9 degrees MUSE 05/30/2022 9:36 AM CDT [...] Total Score: 3 04/23/19 22 8:30 AM PRESIDENT AND CEO documented as of this encounter Care Teams Weight And Balance Control Agent Relationship Specialty Start Date End Date Elsewhere, Pcp PCP - General Internal Medicine 01/07/22 documented as of this encounter
--- OUTSIDE RECORDS SUMMARY | 2023-04-12 10:30 | XMS_ITS | Encounter Summary ---
Author Name Unknown Organization [facility] Address [address] [place] [address] Care Team Providers Care Rehab Director Name Role Phone Elsewhere, Pcp Primary Care Provider Unavailabl e Reason for Visit * Reason Comments Allergic Reaction After increasing the dose Zoloft from 50 mg to 75 mg dose patient felt palpitations and not feeling good.No rashes. Encounter Details Date Type Department Care Team (Late st Contact Info) Description 06/09/2022 3:30 PM CDT Office Visit Urgent Care, [facility], in [place], [place] [address] [place] [phone] Lela Aguiar, PSonaASona-C. [address] [place] [phone] Anxiety (Primary Dx); Palpitations Discharge Disposition: Home [...] How often do you attend chur or tenriism services? 1 to 4 times per year [...] Answer Date Recorded PHQ-2 Score 0 12/10/2021 [facility] [place] of Occupat ional Health - Occupational Stress [...] Morbid Obesity Body Mass Index 40.0-44.9 Adult ([facility]) 06/05/2021 Bleeding Postcoital 01/30/2022 Resolved Ambulatory Problems [...] test that needs to be sent to [facility] and has a 4 day turnaround time. [...] Total Score: 3 04/23/19 22 8:30 AM DURALUMIN MECHANIC documented as of this encounter Care Teams Rehab Director Relationship Specialty Start Date End Date Elsewhere, Pcp PCP - General Internal Medicine 01/07/22 documented as of this encounter
--- OUTSIDE RECORDS SUMMARY | 2023-04-12 10:30 | XMS_ITS | Encounter Summary ---
Author Name Unknown Organization [facility] Address [address] [place] [address] Care Team Providers Care See Wheeler Name Role Phone Elsewhere, Pcp Primary Care [...] CDT - 08/23/2022 1:34 AM CDT Emergency [facility] Emergency Department [address] [place] [phone] Huong Gomez APRN, C.N.P. [address] [place] [phone] Pain Flank (Primary Dx); Abdominal Pain Discharge [...] any clubs o r organizations such as yarsanism groups, unions, fraternal or athletic groups, or [...] Answer Date Recorded PHQ-2 Score 0 12/10/2021 [facility] [place] of Occupat ional Health - Occupational Stress [...] Ketone Negative Bilirubin Negative pH 6.5 Specific [place] 1.005 Urobilinogen 0.2 Not suspicious for infectious process [place] Aug 23, 2022 0107 Comprehensive Metabolic Panel(!): [...] Gomez APRN, C.N.P. LAB BLOOD ADD -ON [facility] [address] [place] [address], [place] MKTO [facility] [place] [address] [place] [address] * (ABNORMAL) Comprehensive Metabolic Panel (08/23/2022 12:25 [...] Gomez APRN, C.N.P. LAB BLOOD ADD -ON [facility] [place] [address], [facility] MKTO [facility] [place] [address] [place] [address] * (ABNORMAL) CBC with Differential, Blood (08/23/2022 [...] LAB BLOOD ADD -ON Performing Organization Address City/[facility]/ZIP Co de Phone Number [facility] [address] [place] [address], [place] [address] * Microscopic Automated (08/22/2022 8:06 PM CDT) [...] LAB URINE ORD ERABLES Performing Organization Address City/[facility]/ZIP Co de Phone Number [facility] [address] [place] [address], [place] [address] * (ABNORMAL) Urinalysis with Microscopic if Indicated [...] 8.0 08/22/2022 8:15 PM CDT MKTO Specific [place] 1.005 1.001 - 1.035 08/22/2022 8:15 PM CDT MKTO Urobilinogen 0.2 0.2 - 1.0 mg/dL 08/22/2022 8:15 PM CDT MKTO Urine (Urine, Midstream) 08/22/2022 8:06 PM CDT 08/22/2022 8:08 PM CDT Huong Gomez APRN C.N.P. LAB URINE ORD ERABLES [facility] [address] [place] [address], [facility] MKTO [facility] [place] [address] documented in this encounter Visit Diagnoses Diagnosis [...] Total Score: 3 04/23/19 22 8:30 AM TOOL FILER HAND documented as of this encounter Care Teams See Wheeler Relationship Specialty Start Date End Date Elsewhere, Pcp PCP - General Internal Medicine 01/07/22 documented as of this encounter
--- OUTSIDE RECORDS SUMMARY | 2023-04-12 10:30 | XMS_ITS | Encounter Summary ---
Author Name Unknown Organization [facility] Address [address] [place] [address] Care Team Providers Care Operations Intelligence Name Role Phone Elsewhere, Pcp Primary Care Provider Unavailabl e Reason for Visit * Reason Comments Anxiety Patient reports feel ing shaky and anxious, which has starting after increasing her Zoloft to 75 mg. Encounter Details Date Type Department Care Team ([facility] st Contact Info) Description 06/09/2022 4:00 PM CDT - 06/09/2022 4:59 PM CDT Emergency [place] [facility] [address] [place] [phone] Jesus Manuel Rodriguez M.D. [address] [place] [phone] Anxiety (Primary Dx) Discharge Disposition: Home or [...] How often do you attend chur or jewish services? 1 to 4 times per year 04/03/2022 Do you belong to any clubs o r organizations such as latter-day groups, unions, fraternal or athletic groups, or [...] Answer Date Recorded PHQ-2 Score 0 12/10/2021 [facility] [place] of Occupat ional Health - Occupational Stress [...] vomiting abdominal pain. History provided by: Patient lead applier needed/used: no REVIEW OF SYSTEMS Constitutional: Positive [...] ride home currently, will prescribe lorazepam, can pick up driver with local pharmacy, takes night, use over [...] Total Score: 3 04/23/19 22 8:30 AM DIRECTOR INDUSTRIAL NURSING documented as of this encounter Care Teams Operations Intelligence Relationship Specialty Start Date End Date Elsewhere, Pcp PCP - General Internal Medicine 01/07/22 documented as of this encounter
--- OUTSIDE RECORDS SUMMARY | 2023-04-12 10:30 | XMS_ITS | Encounter Summary ---
Author Name Unknown Organization [facility] Address [address] [place] [address] Care Team Providers Care Corn Popper Name Role Phone Elsewhere, Pcp Primary Care Provider Unavailabl e Reason for Visit * Reason Onset Date Comments Flank Pain 08/24/2022 Appt Request 08/24/2022 Encounter Details Date Type Department Care Team (Latest Contact Info) Description 08/24/2022 Clinical Communication Department of Urology in [place], [place] [address] [place] [address] Elsewhere, Pcp Flank Pain; Appt [...] often do you attend chur ch or lutheran services? 1 to 4 times per year [...] Answer Date Recorded PHQ-2 Score 0 12/10/2021 [facility] - Occupational Stress Questionnaire Answer Date [...] place to sleep or slept in a fci (including now)? No 04/03/2022 Depression Answer Date [...] follow up with PCP Dr. Lau in [facility] and he ordered a US of gallbladder. Pt states she does not need anything further at this time and disregard request to see Urology. documented in this encounter Plan of Treatment Not on file documented as of this encounter Visit Diagnoses Not on filedocumented in this encounter Additional Health Concerns Assessment Noted Time PHQ-9 Depression Total Score: 3 04/23/19 22 8:30 AM PET CARE WORKER documented as of this encounter Care Teams Corn Popper Relationship Specialty Start Date End Date Elsewhere, Pcp PCP - General Internal Medicine 01/07/22 documented as of this encounter
--- OUTSIDE RECORDS SUMMARY | 2023-04-12 10:30 | XMS_ITS | Encounter Summary ---
Author Name Unknown Organization [facility] Address [address] [place] [address] Care Team Providers Care Dishwasher Busser Name Role Phone Elsewhere, Pcp Primary Care Provider Unavailabl e Reason for Visit * Reason Onset Date Comments Constipation 08/28/2022 Encounter Details Date Type Department Care Team ([facility] st Contact Info) Description 08/28/2022 Nurse Triage Department of Family Medicine in [place], [place] [address] [place] [address] Head, Henny Atwood M.S.N., R.N. [address] [place] [phone] Constipation Social History Tobacco Use Types Packs/Day [...] any clubs o r organizations such as jainism groups, unions, fraternal or athletic groups, or [...] Answer Date Recorded PHQ-2 Score 0 12/10/2021 [facility] - Occupational Stress Questionnaire Answer Date [...] place to sleep or slept in a group home (including now)? No 04/03/2022 Depression Answer [...] is more swollen than usual Protocols used: [id number] Care Advice Patient/Caregiver understands and will follow [...] Total Score: 3 04/23/19 22 8:30 AM ESTIMATOR AND DRAFTER documented as of this encounter Care Teams Dishwasher Busser Relationship Specialty Start Date End Date Elsewhere, Pcp PCP - General Internal Medicine 01/07/22 documented as of this encounter
--- OUTSIDE RECORDS SUMMARY | 2023-04-12 10:30 | XMS_ITS | Clinical Summary ---
Author Name Unknown Organization [facility] Address [place], [place] [address] Care Team Providers Care Table Games Floor Supervisor Name Role Phone Tone Mcqueen Unavailable [phone] Pcp, No Primary Care Provider Unavailabl e Allergies No known active allergies Medications Medication Sig Dispensed Refills Start Date End Date Status budesonide (RHINOCORT ALLERGY) (32 mcg each actuation) nasal spray Inhale 1 [place] into both nostrils once daily. 0 02/13/2020 [...] RT,BB Catie Mtz MD Delivery Location:Hospital ( [facility] [address]AGE) Last Filed Vital Signs [...] 7:50 AM Pos t section Care Teams Table Games Floor Supervisor Relationship Specialty Start Date End Date Pcp, No . PCP - General 12/24/21 Tone Mcqueen MBBS [address] [facility] [address] [place] [address] Consulting Physician Cardiology - Interventional 03/21/20
--- OUTSIDE RECORDS SUMMARY | 2023-04-12 10:30 | XMS_ITS | Encounter Summary ---
Author Name Unknown Organization [facility] Address [address] [place] [address] Care Team Providers Care Farm Equipment Mechanic Name Role Phone Elsewhere, Pcp Primary Care Provider Unavailabl e Reason for Visit * Reason Comments side pain L breast area Encounter Details Date Type Department Care Team ([facility] st Contact Info) Description 06/01/2022 11:00 AM CDT Office Visit Urgent Care, [facility], in [place], [place] [address] [place] [phone] Tania Fischer, CELINA, C.N.P., R.N. [address] [place] [phone] Pain Rib (Primary Dx); Strain Back Muscle Subsequent Discharge Disposition: Home or Self Care Social History Tobacco Use Types Packs/Day Years Used Date Smoking Tobacco: Never Passive Smoke Exposure: Never Smokeless Tobacco: Never Tobacco Cessation:Counseling Given: Not Answered Alcohol Use Standard Drinks/Week Comments Yes 6 [...] Answer Date Recorded PHQ-2 Score 0 12/10/2021 [facility] - Occupational Stress [...] place to sleep or slept in a intermediate (including now)? No 04/03/2022 Depression Answer Date [...] Sign Reading Time Taken Comments Blood Pressure 117/82 06/01/2022 11:15 AM CDT Pulse 87 06/01/2022 11:15 AM CDT Temperature 36.4 ??C (97.5 ??F) 06/01/2022 11:15 AM C DT Respiratory Rate - - Oxygen Saturation 98% 06/01/2022 11:15 AM CDT Inhaled Oxygen Concentration - - Weight - - Height - - Body Mass Index - - documented in this encounter Patient Instructions * Patient Instructions* Tania Fischer APRN, C.N.P. - 06/01/2022 11:00 AM CDT Trial of ice or heat as desire. Follow up with DR. Lau or care team in 1 week if able for further evaluation and monitoring, sooner if symptoms would worsen or as needed for any concerns. * Attachments The following attachments cannot be sent through Care Everywhere. * Nonspecific Chest Pain Adult (Kazakh) documented in this encounter Progress Notes * Tania Fischer APRN, C.N.P. - 06/01/2022 11:00 AM CDT SUBJECTIVE CHIEF COMPLAINT / REASON FOR VISIT side pain (L breast area) HISTORY OF PRESENT ILLNESS Henny Rivas is a 41 y.o. female who presents for evaluation of left sided breast/rib cage discomfort. Nervous as this pain comes and goes. Was seen in [place] ED 2 days ago. [place] were at their cabin and notice left-sided chest pain. Received cardiac workup. EKG was normal with normal sinus rhythm. History of PVCs 03/29/2010. Which were no longer present on 03/17/2022. At recent ED visit Troponin 5th generation less than 6 and no changes. Similar troponin results to 5 months ago. Reports this pain is a little different on her left side however more ribcage. Lateral discomfort left ribcage margin Pain increases with lifting her children ages 2 and 4. Subsides with rest. No known injury. No repetitive movements. No heavy lifting twisting or bending. Has not been treating withany type of medication no topical ice or heat. Reports recently starting on Zoloft and wants to make sure no interactions. No chest pain at rest. No shortness of breath. No night sweats. No chills. No nausea vomiting or diarrhea reported. No numbness no tingling. No leg swelling. The following portions of the patient's history were reviewed and updated as appropriate: Allergies, current medications, medical history. REVIEW OF SYSTEMS Pertinent items are noted in HPI; all other review of systems was negative. OBJECTIVE VITAL SIGNS BP 117/82 Pulse 87 Temp 36.4 ??C SpO2 98% No PHYSICAL EXAMINATION Vitals and nursing note reviewed. Constitutional General: She is not in acute distress. Appearance: Normal appearance. She is not ill-appearing, toxic-appearing or diaphoretic. HENT Head: Normocephalic. Cardiovascular Rate and Rhythm: Normal rate. Pulmonary Effort: Pulmonary effort is normal. Musculoskeletal General: Tenderness (Lateral ribcage left side margins 567 tender to palpation.) present. No swelling or deformity. Normal range of motion. Right lower leg: No edema. Skin General: Skin is warm and dry. Neurological General: No focal deficit present. Mental Status: She is alert and oriented to person, place, and time. Psychiatric Mood and Affect: Mood normal. Behavior: Behavior normal. ASSESSMENT / PLAN Diagnosis Plan 1. Pain Rib methylPREDNISolone (MEDROL DOSEPAK) 4 mg tablet cyclobenzaprine (FLEXERIL) 10 mg tablet 2. Strain Back Muscle Subsequent methylPREDNISolone (MEDROL DOSEPAK) 4 mg tablet cyclobenzaprine (FLEXERIL) 10 mg tablet Pleasant 41-year-old female who presents to urgent care with concerns of persistently left ribcage margin and ongoing lower back discomfort. Patient has been seen at [facility] 2 days ago. With comprehensive workup without known etiology. Reports pain today more associated with movement. Of the left ribcage margin and back. Lengthy discussion regarding comprehensive workup in the emergency department. Discussed likelihoodof muscular today related to increase of discomfort with movement. I did elect to refill previously prescribed Flexeril. We did discuss use of previously prescribed Atarax for anxiety. States she does not obtain relief from this. Patient tells me she is no longer taking tramadol. Informed not to take tramadol along with Flexeril. Reviewed use and side effects of Medrol Dosepak patient states she is familiar and has used prednisone in the past. Reviewed strict return to care precautions. Which patient is also familiar with. We did review the brochure from [facility] on stress management including pages 3 and 9. Includingthe physical symptoms of anxiety. Further follow-up with primary care team is recommended within the next week for further evaluation and care coordination. Certainly sooner if she would develop any new or concerning symptoms. Verbally agrees and understands today's plan of care. No further questions or concerns. Follow up as discussed and reviewed in AVS. Discharged from [facility] in an independent, vitally stable condition. documented in this encounter Plan of Treatment Not on file documented as of this encounter Visit Diagnoses Diagnosis Pain Rib- Primary Strain Back Muscle Subsequent documented in this encounter Additional Health Concerns Assessment Noted Time PHQ-9 Depression Total Score: 3 04/23/19 22 8:30 AM OPHTHALMIC AIDE documented as of this encounter Care Teams Farm Equipment Mechanic Relationship Specialty Start Date End Date Elsewhere, Pcp PCP - General Internal Medicine 01/07/22 documented as of this encounter
--- OUTSIDE RECORDS SUMMARY | 2023-04-12 10:30 | XMS_ITS | Clinical Summary ---
Author Name Unknown Organization [facility] Address [address] [place] [address] Care Team Providers Care Weed Cutter Name Role Phone Teena Hargrove MD Primary Care Provider [phone] Seble Dickinson PA-C Unavailable [phone] Allergies Active Allergy Reactions Criticality Noted Date [...] Active VANCE-D 12 HOUR## 60-120 MG OR [id number]:Allerg ic rhinitis, cause unspecified 1 TABLET TWICE [...] 108.9 kg (240 lb) 03/17/2020 12:13 PM REFRIGERATOR TESTER Height 167.6 cm (5' 6) 02/19/2019 2:39 PM REFRIGERATOR TESTER Body Mass Index 38.74 02/19/2019 2:39 PM REFRIGERATOR TESTER Plan of Treatment Health Maintenance Due Date Last Done Comments ADVANCE CARE PLANNING 1981 ANNUAL REVIEW OF HM ORDERS 1981 HEPATITIS B IMMUNIZATION (1 of 3 - 3-dose series) 1981 MAMMO SCREENING 1981 MIGRAINE ACTION PLAN 1981 HIV SCREENING 1996 HEPATITIS C SCREENING 09/04/1999 HPV IMMUNIZATION (2 - 3-dose series) 02/06/2008 01/09/2008, 01/09/2008 YEARLY PREVENTIVE VISIT 01/08/2009 01/09/2008, 04/12 COVID-19 Vaccine ( season) 2022 04/02/2022, 02/26/2021, 06/27/2020, Additional history exists INFLUENZA VACCINE (#1) 2022 , 02/19/2021, 11/30/2019, Additional history exists PHQ-2 (once per calendar year) 2023 GLUCOSE 05/26/2023 05/25/2020, 03/08, 03/17/2020, Additional history exists HPV TEST 02/02/2024 02/01/2023, 01/07, 01/26/2022, Additional history exists PAP 02/02/2024 02/01/2023, 01/07, 01/09/2008, Additional history exists LIPID 02/02/2028 02/01/2023, 01/07, 04/27/2006 DTAP/TDAP/TD IMMUNIZATION (5 - Td or Tdap) [...] Procedure Name Priority Date/Time Associated Diagnosis Comments URINE CULTURE Routine 04/08/2023 12:29 PM REFRIGERATOR TESTER Unspecified symptoms and signs involving the genitourinary system CBC WITH PLATELETS Routine 02/01/2023 10 :25 AM REFRIGERATOR TESTER Encounter for screening for diseases of the blood and blood-forming organs and certain disorders involving the immune mechanism LIPID PROFILE Routine 02/01/2023 10:25 AM REFRIGERATOR TESTER Encounter for screening for lipoid disorders HEMOGLOBIN A1C Routine 02/01/2023 10:25 AM REFRIGERATOR TESTER Encounter for screening for diabetes mellitus HPV HOLD (LAB ONLY) Routine 02/01/2023 1 0:00 AM REFRIGERATOR TESTER Encounter for screening for malignant neoplasm of cervix GYNECOLOGIC CYTOLOGY Routine 02/01/2023 10:00 AM REFRIGERATOR TESTER Encounter for screening for malignant neoplasm of cervix HPV HIGH RISK TYPES DNA CERVICAL Routine 02/01/2023 10:00 AM REFRIGERATOR TESTER Encounter for screening for malignant neoplasm of cervix from Last 3 Months Results * Urine Culture (04/08/2023 12:29 PM REFRIGERATOR TESTER) Culture <10,000 CFU/mL Urogenital alexis 04/10/2023 6:05 AM REFRIGERATOR TESTER [facility] Urine MID-STREAM URINE SPECIMEN / Unknown Non-blood Collection / Unknown 04/08/2023 12:29 PM REFRIGERATOR TESTER 04/08/2023 7:55 PM REFRIGERATOR TESTER Jericho Hernandez PA-C LAB - MICRO GEN ERAL ORDERABLES [facility] Inf. Diseases Diag. Lab [address] [facility] [place] [address], [facility] [phone] * (ABNORMAL) Lipid Profile (02/01/2023 10:25 AM REFRIGERATOR TESTER) Cholesterol 198 <200 mg/dL 02/01/2023 2:46 PM REFRIGERATOR TESTER [facility] Triglycerides 102 <150 mg/dL 02/01/2023 2:46 PM REFRIGERATOR TESTER [facility] Direct Measure HDL 53 >=50 mg/dL 02/01/2023 2:46 PM REFRIGERATOR TESTER [facility] LDL Cholesterol Calculated 125(H) <=100 mg/dL 02/01/2023 2:46 PM REFRIGERATOR TESTER [facility] Non HDL Cholesterol 145(H) <130 mg/dL 02/01/2023 2:46 PM REFRIGERATOR TESTER [facility] Blood TOPOGRAPHY UNKNOWN / Unknown Client Draw / Unknown 02/01/2023 10:25 AM REFRIGERATOR TESTER 02/01/2023 1:09 PM REFRIGERATOR TESTER Narrative [facility] - 02/01/2023 2:46 PM REFRIGERATOR TESTER Cholesterol Desirable: ??<200 mg/dL Triglycerides Normal: ??Less [...] LAB - BLOOD ORD ERABLES [facility] [facility] [address] [facility], [address] [place] [address], [facility] [phone] * Hemoglobin A1c (02/01/2023 10:25 AM REFRIGERATOR TESTER) Hemoglobin A1C 5.2 <5.7 % 02/01/2023 1:39 PM REFRIGERATOR TESTER [facility] Comment: Normal <5.7% Prediabetes 5.7-6.4% ?? Diabetes 6.5% or higher Note: Adopted from ADA consensus guidelines. Blood TOPOGRAPHY UNKNOWN / Unknown Client Draw / Unknown 02/01/2023 10:25 AM REFRIGERATOR TESTER 02/01/2023 1:08 PM REFRIGERATOR TESTER Jericho Hernandez PA-C LAB - BLOOD ORD ERAEDWARD [facility] [address] [facility], [address] [place] [phone], [facility] [phone] * (ABNORMAL) CBC with platelets (02/01/2023 10:25 AM REFRIGERATOR TESTER) WBC Count 8.4 4.0 - 11.0 10e3/uL 02/01/2023 1:28 PM REFRIGERATOR TESTER [facility] RBC Count 5.34(H) 3.80 - 5.20 10e6/uL 02/01/2023 1:28 PM REFRIGERATOR TESTER [facility] Hemoglobin 15.0 11.7 - 15.7 g/dL 02/01/2023 1:28 PM REFRIGERATOR TESTER [facility] Hematocrit 46.6 35.0 - 47.0 % 02/01/2023 1:28 PM REFRIGERATOR TESTER [facility] MCV 87 78 - 100 fL 02/01/2023 1:28 PM REFRIGERATOR TESTER [facility] MCH 28.1 26.5 - 33.0 pg 02/01/2023 1:28 PM REFRIGERATOR TESTER [facility] MCHC 32.2 31.5 - 36.5 g/dL 02/01/2023 1:28 PM REFRIGERATOR TESTER [facility] RDW 13.8 10.0 - 15.0 % 02/01/2023 1:28 PM REFRIGERATOR TESTER [facility] Platelet Count 330 150 - 450 10e3/uL 02/01/2023 1:28 PM REFRIGERATOR TESTER [facility] Blood BLOOD SPECIMEN / Unknown Client Draw / Unknown 02/01/2023 10:25 AM REFRIGERATOR TESTER 02/01/2023 1:08 PM REFRIGERATOR TESTER Jericho Hernandez PA-C LAB - BLOOD ORD ERABLES [facility] [address] [facility] [address], [address] [place] [address], [facility] [phone] * HPV Hold (Lab Only) (02/01/2023 10:00 AM REFRIGERATOR TESTER) Brushing CERVIX UTERI STRUCTURE / Unknown Non-blood Collection / Unknown 02/01/2023 10:00 AM REFRIGERATOR TESTER 02/04/2023 8:08 AM REFRIGERATOR TESTER Jericho [facility] [address] [facility] [address] [facility], [address] [place] [address], [facility] [phone] * Gynecologic Cytology (PAP) (02/01/2023 10:00 AM REFRIGERATOR TESTER) Interpretation Negative for Intraepithelial Lesion or Malignancy (NILM) 02/03/2023 9:28 AM REFRIGERATOR TESTER [facility] Comment Papanicolaou Test Limitations: Cervical cytology is a screening test with limited sensitivity, and regular screening is critical for cancer prevention. Pap tests are primarily effective for the diagnosis/prevent ion of squamous cell carcinoma, not adenocarcinoma or other cancers. 02/03/2023 9:28 AM REFRIGERATOR TESTER [facility] Specimen Adequacy Satisfactory for evaluation, endocervical/wilkes sformation zone component present 02/03/2023 9:28 AM REFRIGERATOR TESTER [facility] Clinical Information none 02/03/2023 9:28 AM REFRIGERATOR TESTER [facility] LMP/Menopause Date 01-24-2023 02/03/2023 9:28 AM REFRIGERATOR TESTER [facility] Reflex Testing Yes regardless of result 02/03/2023 9:28 AM REFRIGERATOR TESTER [facility] Previous Abnormal? No 02/03/2023 9:28 AM REFRIGERATOR TESTER [facility] Previous Abnormal Diagnosis NILM with NEG HPV 02/03/2023 9:28 AM REFRIGERATOR TESTER [facility] Performing Labs The technical component of this testing was completed at [facility] 02/03/2023 9:28 AM REFRIGERATOR TESTER [facility] Brushing CERVIX UTERI STRUCTURE / Unknown 02/01/2023 10:00 AM REFRIGERATOR TESTER 02/01/2023 1:15 PM REFRIGERATOR TESTER Jericho Cruz [facility]ZAHRA [facility] Specialty Lab [address] [facility], [address] [address], [facility] [phone] * HPV High Risk Types DNA Cervical (02/01/2023 10:00 AM REFRIGERATOR TESTER) Other HR HPV Negative Negative 02/04/2023 3:03 PM REFRIGERATOR TESTER [facility] HPV16 DNA Negative Negative 02/04/2023 3:03 PM REFRIGERATOR TESTER [facility] HPV18 DNA Negative Negative 02/04/2023 3:03 PM REFRIGERATOR TESTER [facility] FINAL DIAGNOSIS This patient's sample is negative for HPV DNA. This test was developed and its performance characteristics determined by the [facility], Molecular Diagnostics Laboratory. It has not been [...] clinical followup is recommended. 02/04/2023 3:03 PM REFRIGERATOR TESTER [facility] Brushing CERVIX UTERI STRUCTURE / Unknown Non-blood Collection / Unknown 02/01/2023 10:00 AM REFRIGERATOR TESTER 02/04/2023 8:08 AM REFRIGERATOR TESTER Jericho Bere Hernandez PA-C LAB - BLOOD ORD ERABLES [facility] [address] [facility] [address], [address] [place] [address], [place] [phone] from Last 3 Months Care Teams Weed Cutter Relationship Specialty Start Date End Date Teena Hargrove MD [address] [place], [place] [phone] PCP - General silk screen processor 03/17/20 Seble Dickinson PA-C [address] [place], [place] [phone] Physician Medical Library Assistant Urology 08/24/22
--- OUTSIDE RECORDS SUMMARY | 2023-04-12 10:30 | XMS_ITS | Referral Summary ---
Author Name Unknown Organization [facility] Address [address] [place] [id number] Care Team Providers Care Web Master Name Role Phone Teena Hargrove MD Primary Care Provider [phone] Seble Dickinson PA-C Unavailable [phone] Allergies Active Allergy Reactions Criticality Noted Date [...] Active VANCE-D 12 HOUR## 60-120 MG OR [id number]:Allerg ic rhinitis, cause unspecified 1 TABLET TWICE [...] 108.9 kg (240 lb) 03/17/2020 12:13 PM VET ASSISTANT Height 167.6 cm (5' 6) 02/19/2019 2:39 PM VET ASSISTANT Body Mass Index 38.74 02/19/2019 2:39 PM VET ASSISTANT Plan of Treatment Not on file Procedures Procedure Name Priority Date/Time Associated Diagnosis Comments URINE CULTURE Routine 04/08/2023 12:29 PM VET ASSISTANT Unspecified symptoms and signs involving the genitourinary system CBC WITH PLATELETS Routine 02/01/2023 10 :25 AM VET ASSISTANT Encounter for screening for diseases of the blood and blood-forming organs and certain disorders involving the immune mechanism LIPID PROFILE Routine 02/01/2023 10:25 AM VET ASSISTANT Encounter for screening for lipoid disorders HEMOGLOBIN A1C Routine 02/01/2023 10:25 AM VET ASSISTANT Encounter for screening for diabetes mellitus HPV HOLD (LAB ONLY) Routine 02/01/2023 1 0:00 AM VET ASSISTANT Encounter for screening for malignant neoplasm of cervix GYNECOLOGIC CYTOLOGY Routine 02/01/2023 10:00 AM VET ASSISTANT Encounter for screening for malignant neoplasm of cervix HPV HIGH RISK TYPES DNA CERVICAL Routine 02/01/2023 10:00 AM VET ASSISTANT Encounter for screening for malignant neoplasm of cervix from Last 3 Months Results * Urine Culture (04/08/2023 12:29 PM VET ASSISTANT) Culture <10,000 CFU/mL Urogenital alexis 04/10/2023 6:05 AM VET ASSISTANT [facility] Urine MID-STREAM URINE SPECIMEN / Unknown Non-blood Collection / Unknown 04/08/2023 12:29 PM VET ASSISTANT 04/08/2023 7:55 PM VET ASSISTANT Jericho Hernandez PA-C LAB - MICRO GEN ERAL ORDERABLES [facility] Inf. Diseases Diag. Lab [address] [facility], [address] [place] [address], [facility] [phone] * (ABNORMAL) Lipid Profile (02/01/2023 10:25 AM VET ASSISTANT) Cholesterol 198 <200 mg/dL 02/01/2023 2:46 PM VET ASSISTANT [facility] Triglycerides 102 <150 mg/dL 02/01/2023 2:46 PM VET ASSISTANT [facility] Direct Measure HDL 53 >=50 mg/dL 02/01/2023 2:46 PM VET ASSISTANT [facility] LDL Cholesterol Calculated 125(H) <=100 mg/dL 02/01/2023 2:46 PM VET ASSISTANT [facility] Non HDL Cholesterol 145(H) <130 mg/dL 02/01/2023 2:46 PM VET ASSISTANT [facility] Blood TOPOGRAPHY UNKNOWN / Unknown Client Draw / Unknown 02/01/2023 10:25 AM VET ASSISTANT 02/01/2023 1:09 PM VET ASSISTANT Narrative [facility] - 02/01/2023 2:46 PM VET ASSISTANT Cholesterol Desirable: ??<200 mg/dL Triglycerides Normal: ??Less [...] LAB - BLOOD ORD ERABLES [facility] [address] [facility], [address] [place] [address], [facility] [phone] * Hemoglobin A1c (02/01/2023 10:25 AM VET ASSISTANT) Hemoglobin A1C 5.2 <5.7 % 02/01/2023 1:39 PM VET ASSISTANT [facility] Comment: Normal <5.7% Prediabetes 5.7-6.4% ?? Diabetes 6.5% or higher Note: Adopted from ADA consensus guidelines. Blood TOPOGRAPHY UNKNOWN / Unknown Client Draw / Unknown 02/01/2023 10:25 AM VET ASSISTANT 02/01/2023 1:08 PM VET ASSISTANT Jericho Hernandez PA-C LAB - BLOOD ORD ERABLES [facility] [address] [facility], [address] [place] [address], [facility] [phone] * (ABNORMAL) CBC with platelets (02/01/2023 10:25 AM VET ASSISTANT) WBC Count 8.4 4.0 - 11.0 10e3/uL 02/01/2023 1:28 PM VET ASSISTANT [facility] RBC Count 5.34(H) 3.80 - 5.20 10e6/uL 02/01/2023 1:28 PM VET ASSISTANT [facility] Hemoglobin 15.0 11.7 - 15.7 g/dL 02/01/2023 1:28 PM VET ASSISTANT [facility] Hematocrit 46.6 35.0 - 47.0 % 02/01/2023 1:28 PM VET ASSISTANT [facility] MCV 87 78 - 100 fL 02/01/2023 1:28 PM VET ASSISTANT [facility] MCH 28.1 26.5 - 33.0 pg 02/01/2023 1:28 PM VET ASSISTANT [facility] MCHC 32.2 31.5 - 36.5 g/dL 02/01/2023 1:28 PM VET ASSISTANT [facility] RDW 13.8 10.0 - 15.0 % 02/01/2023 1:28 PM VET ASSISTANT [facility] Platelet Count 330 150 - 450 10e3/uL 02/01/2023 1:28 PM VET ASSISTANT [facility] Blood BLOOD SPECIMEN / Unknown Client Draw / Unknown 02/01/2023 10:25 AM VET ASSISTANT 02/01/2023 1:08 PM VET ASSISTANT Jericho Hernandez PA-C LAB - BLOOD ORD ERAEDWARD [facility] [address] [facility] [address], [address] [place] [address], [facility] [phone] * HPV Hold (Lab Only) (02/01/2023 10:00 AM VET ASSISTANT) Brushing CERVIX UTERI STRUCTURE / Unknown Non-blood Collection / Unknown 02/01/2023 10:00 AM VET ASSISTANT 02/04/2023 8:08 AM VET ASSISTANT Jericho ROGEL [facility] [address] [facility] [address] [facility], [address] [place] [address], [facility] [phone] * Gynecologic Cytology (PAP) (02/01/2023 10:00 AM VET ASSISTANT) Interpretation Negative for Intraepithelial Lesion or Malignancy (NILM) 02/03/2023 9:28 AM [facility] Comment Papanicolaou Test Limitations: Cervical cytology is a screening test with limited sensitivity, and regular screening is critical for cancer prevention. Pap tests are primarily effective for the diagnosis/prevent ion of squamous cell carcinoma, not adenocarcinoma or other cancers. 02/03/2023 9:28 AM VET ASSISTANT [facility] Specimen Adequacy Satisfactory for evaluation, endocervical/wilkes sformation zone component present 02/03/2023 9:28 AM [facility] Clinical Information none 02/03/2023 9:28 AM VET ASSISTANT [facility] LMP/Menopause Date 01-24-2023 02/03/2023 9:28 AM VET ASSISTANT [facility] Reflex Testing Yes regardless of result 02/03/2023 9:28 AM VET ASSISTANT [facility] Previous Abnormal? No 02/03/2023 9:28 AM VET ASSISTANT [facility] Previous Abnormal Diagnosis NILM with NEG HPV 02/03/2023 9:28 AM VET ASSISTANT [facility] Performing Labs The technical component of this testing was completed at [facility] 02/03/2023 9:28 AM [facility] Brushing CERVIX UTERI STRUCTURE / Unknown 02/01/2023 10:00 AM VET ASSISTANT 02/01/2023 1:15 PM VET ASSISTANT Jericho Cruz [facility] Specialty Lab [address] [facility], [address] [address], [facility] [phone] * HPV High Risk Types DNA Cervical (02/01/2023 10:00 AM VET ASSISTANT) Other HR HPV Negative Negative 02/04/2023 3:03 PM VET ASSISTANT [facility] HPV16 DNA Negative Negative 02/04/2023 3:03 PM V[facility] ASSISTANT [facility] HPV18 DNA Negative Negative 02/04/2023 3:03 PM VET ASSISTANT [facility] FINAL DIAGNOSIS This patient's sample is negative for HPV DNA. This test was developed and its performance characteristics determined by the [facility], [facility] Diagnostics Laboratory. It has [...] clinical followup is recommended. 02/04/2023 3:03 PM VET ASSISTANT [facility] Brushing CERVIX UTERI STRUCTURE / Unknown Non-blood Collection / Unknown 02/01/2023 10:00 AM VET ASSISTANT 02/04/2023 8:08 AM VET ASSISTANT Jericho Hernandez PA-C LAB - BLOOD ORD ERABLES [facility] [address] [facility] [address], [address] [place] [address], [place] [phone] from Last 3 Months Care Teams Web Master Relationship Specialty Start Date End Date Teena Hargrove MD [facility] [address] [place] [address] PCP - General kst operator 03/17/20 Seble Dickinson PA-C [address] [place] [address] Physician Flour Worker Urology 08/24/22
--- OUTSIDE RECORDS SUMMARY | 2023-04-12 10:31 | XMS_ITS | Continuity of Care Document ---
Author Name Unknown Address [address] [place] [address] Phone [phone] Organization [facility] [employer], [id number] Address [address] [place] [phone] Care Team Providers Care Speech And Language Tutor Name Role Phone TEENA LO Evp General Counsel NORMA MCNULTY Primary Care Provider Assessment No assessment recorded. Plan of Treatment Reminders Order Date Submit Date Provider Last Modified By Organization Details Last Modified Time Details Appointments None recorded. Lab urinalysis, dipstick, auto 2022 023 apetersen 35 [id number] rtners_ziona le, [address] [facility], [place] [address], [place], [address], 3 13:45:18 bacterial vaginosis + vaginitis panel, vaginal 2022 023 BELTRAN [id number] rtners_ziona le, [address] [place] [address], [address] [place] [address], [address], 3 14:41:00 Referral None recorded. Procedures None recorded. Surgeries None recorded. Imaging None recorded. Medication Orders clindamycin HCl 300 mg capsule 2022 023 adzihic [facility], [address] [place] [address], [place], [address], 4 13:07:00 Metrogel Vaginal 0.75 % (37.5 mg/5 gram) 2022 023 adzihic [facility], [address], [place], [address], 13:07:10 Patient TargetsNo targets recorded. Patient Instructions Encounter Date Encounter Id Patient Instructions Last Modified By Organization Details Last Modified Time 02/12/2023 [id number] Sent BDAffirm. Notified pt swab is positive for BV and sent script. Plan to treat and then can try MetroGel 1-2x/wk maintenance to prevent reoccurance. Cotton underware only. Do no wear underware at night. Avoid feminine wipes, douches, pantyliner use. Change clothes immediately after exercising. All questions answered. [email or web address] Not available 02/12/2023 15:04:28 Reason for Referral Maternal & Medicine Re ferral for consult- ECHOGENIC AREA HEART NOTED AT [facility] Referring Physician: Teena Lo, [employer], Encounter Date: 04/09/2020 Results Created Date Observation Date Name Description Value Unit Range Abnormal Flag LastModifiedBy Organization Detail LastModifiedTime 02/13/2002/12/2023 bacte rial vagin osis + vagin itis panel , vagin al gardnerella positi ve negati ve abnormal Not Available [id number] arnoldo[address], [address], 02/12/2023 11:30:51 02/13/20 23 02/12/2023 bacte rial vagin osis + vagin itis panel , vagin al trichomonas negati ve negati ve normal Not Available [id number] [address], [address], 02/12/2023 11:30:51 02/13/20 23 02/12/2023 bacte rial vagin osis + vagin itis panel , vagin al avery negati ve negati ve normal Not Available [id number] shai [address], [place], [address], 02/12/2023 11:30:51 02/13/20 23 02/12/2023 urina lysis , dipst ick, auto Unknown Analyte Clean Catch Not Available [id number] shai [address], [place], [address], 02/12/2023 11:30:42 02/13/20 23 02/12/2023 urina lysis , dipst ick, auto Unknown Analyte negati ve Not Available [id number] shai [address], [place], [address], 02/12/2023 11:30:42 02/13/20 23 02/12/2023 urina lysis , dipst ick, auto Unknown Analyte negati ve Not Available [id number] shai [address], [place], [address], 02/12/2023 11:30:42 02/13/20 23 02/12/2023 urina lysis , dipst ick, auto Unknown Analyte negati ve Not Available [id number] shai [address], [place], [address], 02/12/2023 11:30:42 02/13/20 23 02/12/2023 urina lysis , dipst ick, auto Unknown Analyte 1.020 Not Available [id number] debra shai [address], [place], [address], 02/12/2023 11:30:42 02/13/20 23 02/12/2023 urina lysis , dipst ick, auto Unknown Analyte negati ve Not Available [id number] shai [address], [place], [address], 02/12/2023 11:30:42 02/13/20 23 02/12/2023 urina lysis , dipst ick, auto Unknown Analyte 7.5 Not Available [id number] debra rtmanuel [address], [place], [address], 02/12/2023 11:30:42 02/13/20 23 02/12/2023 urina lysis , dipst ick, auto Unknown Analyte negati ve Not Available [id number] gibbons [address], [place], [address], 02/12/2023 11:30:42 02/13/20 23 02/12/2023 urina lysis , dipst ick, auto Unknown Analyte negati ve Not Available [id number] gibbons [address], [place], [address], 02/12/2023 11:30:42 02/13/20 23 02/12/2023 urina lysis , dipst ick, auto Unknown Analyte negati ve Not Available [id number] gibbons [address], [place], [address], 02/12/2023 11:30:42 02/13/20 23 02/12/2023 urina lysis , dipst ick, auto Unknown Analyte dark yellow Not Available [id number] shai [address], [place], [address], 02/12/2023 11:30:42 02/13/20 23 02/12/2023 urina lysis , dipst ick, auto Unknown Analyte slight ly cloudy Not Available [id number] rtners_fartun le [address] [facility] [address], [place], [address], 02/12/2023 11:30:42 Result Notes None recorded. Problems Name Status Onset Date Resolution Date Notes Provider Name and Address Organization Details Recorded Time History of section Active 07/30/19 21 Blake Bustos null, [place] - [facility] 07/29/2020 17:15:34 Multigravida of advanced maternal age Active 07/30/19 21 PaNhiag Bustos null, [place] [facility] 07/29/2020 17:15:41 Vitamin D deficiency Active Not Available [facility] 10/12/2019 05:10:31 Problem Notes None recorded. Procedures Surgical History Date Name Laterality Status Provider Name and Address Organization Details Recorded Time 3 Date of Last Mammogram completed Olga Dow (TERMED) null, [place] [facility] 07/01/2022 15:05:23 2 Date of Last Pap Smear completed Raegan Zamudiosalmamarlon null, [place] - [facility] 01/26/2023 12:30:03 8 section completed Not Available [facility] 10/12/2019 05:09:17 Imaging Results None recorded. Procedure [...] A DAY BY ORAL ROUTE AFTER MEALS. 10/26 /2023 completed Not Available Not Available [...] Not Available Not Available Not Available fluconazole 150 mg tablet TAKE ONE TABLET BY MOUTH ONCE EVERY 3 DAYS FOR 2 DOSES active Not Available Not Available No t Available benzonatate 200 mg capsule TAKE 1 [...] THEN 1-2 TIMES WEEK FOR PREVENTIO N active Not Available Not Available No t Available ondansetron HCl 4 mg tablet TAKE 1 [...] Available Not Available Not Available metronidazo le 500 mg tablet TAKE ONE TABLET BY MOUTH THREE TIMES A DAY active Not Available Not Available No t Available phentermine 37.5 mg tablet TAKE 1 TABLET BY MOUTH ONCE DAILY 06/13 completed Not Available Not Available Not Available ciprofloxac in 500 mg tablet TAKE 1 TABLET BY MOUTH TWICE DAILY FOR 7 DAYS 04/08 completed Not Available Not Available Not Available sulfamethox azole 800 mg-trimetho prim 160 [...] mg capsule,del ayed release TAKE 1 CAPSULE ORALLY TWO TIMES DAILY active Not Available Not Available [...] Not Available No t Available amoxicillin 875 mg-potadityau m clavulanate 125 mg tablet TAKE 1 [...] Updated DateTime 3 167.64 cm 35.1 kg/m2 95423.7 g 63 /min 114 mm[Hg] 75 mm[Hg] Raegan Duncan [place], [place] - [facility] [facility] 3 13:26:28 Social History Question Answer Notes LastModified by Organizat ion Details LastModified Time Tobacco Smoking Status Never Smoker Tobacco *Status: Never Not Available [facility] 10/16/2019 11:59:10 Do You Have An Advance Directive? No Does Not Have A Health Directive Information not available 10/16/2019 What Is Your Level Of Alcohol Consumption? Occasional Socially Information not available 02/01/2023 How Many Times Per Week Do You Consume Alcohol? Less Than 1 Time Per Week Information not available 02/01/2023 Is Blood Transfusion Acceptable In An Emergency? Yes Information not available 01/26/2022 What Is Your Level Of Caffeine Consumption? None Information not available 02/01/2023 Are You Currently Employed? Yes [email or web address] Information not available 01/26/2022 What Type Of Diet Are You Following? GLUTENFREE No Sugar And Dairy Information not available 02/01/2023 What Is The Highest Grade Or Level Of School You Have Completed Or The Highest Degree You Have Received? 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 Less Than 1 Time Per Week Information not available 02/01/2023 History Of Domestic Violence No Denies Any History Of Domestic Violence Information not available 10/16/2019 Spouse/Partners Name Sekou Rivas Information not available 02/01/2023 Ethnic Background White Or [email or web address] Information not available 01/26/2022 Are You Passively Exposed To Smoke? No Information not available 02/01/2023 Performs Monthly Self-breast Exam? No Does Not Perform Monthly Breast Exams Information not available 01/21/2021 What Is Your Relationship Status? [email or web address] Information not available 01/26/2022 Are You Sexually Active? Yes Currently Sexually Active Information not available 01/21/2021 Do You Use Any Illicit Or Recreational Drugs? No Information not available 02/01/2023 Has Tobacco Cessation Counseling Been Provided? Yes Information not available 02/01/2023 On What Date Was Tobacco Cessation Counseling Provided? 02/01/2023 Information not available 02/01/2023 Are You Currently In School? No [email or web address] Information not available 01/26/2022 Sex: Female Functional [...] Details Recorded Time Tdap 07/23/2020 completed [facility] [facility] 07/23/2020 15:22:22 Tdap 11/22/2017 completed Not Available [facility] 05:09:39 Tdap 01/15/2014 completed Not Available [facility] 05:09:39 influenza, injectable, quadrivalent, preservative free 11/22/2017 completed [facility] [employer] 01/21/2021 11:39:02 Past Encounters Encounter ID Performer Location Encounter Start Date Encounter Closed Date Diagnosis/Indication [id number] MAURISIO FRAIRE PA-C [id number] [place] [address] [facility] [place] [address] 02/01/2023 09:42:59 02/01/2023 13:58:01 Screening for malignant neoplasm of cervix Diabetes mellitus screening Hyperlipidemia screening Gynecologic examination Anemia screening Vaginal irritation Obesity Female hirsutism [id number] MAURISIO FRAIRE PA-C [id number] VALLE [address] [facility] [address] [place] [address] 02/12/2023 13:16:17 02/12/2023 15:10:47 Vaginitis Health Concerns Section Related Observation LastModified by Organization Detai ls LastModified Time None Recorded Concern Status LastModified by Organization Details LastModified Time None Recorded Payers Encounter Date Sequence Insurance Name Policy Number Policy Silva Covered Member ID Silva Member ID Guarantor Name 02/12/2023 1 [facility] Consult SERVICES - [facility] [id number] Shirley Rivas [id number] Henny Rivas Notes Date Note Type Note [...] dysuria, frequency, urgency, odor. MAURISIO FRAIRE PA-C [address] [facility],[address], [place], [address], [place] - [facility] [employer] 02/12/2023 15:04:54 OBGyn Episode No OBEpisode recorded.
== END 2023-04-09 09:21 | disposition home or self-care (01) ==
LOC: NFLDREF 04-12 10:26
PROVIDERS: PCP Family Medicine; Referring Provider Family Medicine; Visit Provider Family Medicine
DX: R10.9 Unspecified abdominal pain (principal); B37.31 Acute candidiasis of vulva and vagina; N76.0 Acute vaginitis; B96.89 Other specified bacterial agents as the cause of diseases classified elsewhere
CPT/HCPCS: 87086

== ENCOUNTER 2023-04-22 11:31 | Outpatient (CLI) | payer OTHER, SELFPAY ==
--- OUTSIDE RECORDS SUMMARY | 2023-04-22 12:00 | XMS_ITS | Clinical Summary ---
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 For routine questions regarding patient records, call [phone] during business hours, M-F 8:00 AM - 5:00 PM Central Time. Record requests for emergency care only can be directed to [phone] at any time.[facility] Allergies No known active allergies Medications [...] for cough. 12 capsule 0 03/10/2023 Active ondansetron ODT (ZOFRAN-ODT) 4 mg disintegrating tabletIndications:A [...] Team Description 03/30/2023 Orders Only Urgent Care, [facility], [address] [address] Mario Valle P.A.-CSona Urinary Tract Infection Site Not Specified (Primary Dx) 03/27/2023 10:14 AM PRINT INSPECTOR - 03/27/2023 11:59 PM PRINT INSPECTOR Hospital Encounter Department of Radiology in [address] [address] Mario Valle P.ASona-CSona Abdominal Pain Discharge Disposition: Home or Self Care 03/27/2023 9:00 AM PRINT INSPECTOR Office Visit Urgent Care, [facility], in [address] [address] Mario Valle P.ASona-CSona Abdominal Pain (Primary Dx) Discharge Disposition: Home or Self Care 03/25/2023 9:23 AM PRINT INSPECTOR - 03/25/2023 11:59 PM PRINT INSPECTOR Hospital Encounter Department of Radiology, [facility], in [address] [address] Ronal Henderson M.D. Johnson, David W, M.D. Pain Left Lower Quadrant Discharge Disposition: Home or Self Care 03/12/2023 8:27 AM PRINT INSPECTOR - 03/12/2023 9:04 AM [facility] Emergency [place] [facility] [address] [place] [phone] Wendy Calzada D.O. Dysphagia (Primary Dx); Foreign Body Swallowed Initial Discharge Disposition: Home or Self Care 03/11/2023 8:53 PM PRINT INSPECTOR - 03/12/2023 2:30 AM [facility] Emergency [place] [facility] [address] [place] [phone] Boyd Lynn M.D. Lightheadedness (Primary Dx) Discharge Disposition: Home or Self Care 03/10/2023 8:44 AM PRINT INSPECTOR - 03/10/2023 11:30 AM [facility] Emergency Department [address] [place] [phone] Jesus Manuel Hensley M.D. Influenza Like Illness (Primary Dx); Dehydration; Hypokalemia Discharge Disposition: Home or Self Care 03/08/2023 1:52 PM PRINT INSPECTOR - 03/08/2023 4:01 PM [facility] Emergency [facility] Emergency Department [address] [place] [address] Ronal Henderson M.D. Pain Left Lower Quadrant (Primary Dx); Pain Left Upper Quadrant; Abdominal Pain Discharge Disposition: Home or Self Care 03/08/2023 Nurse Triage [facility] Department of Family Medicine in [place], [place] [address] [facility] [place] [phone] Suha Lea RSonaN. Med Question 03/02/2023 Clinical Communication Division of Gastroenterology in [place], [place] [address] [place] [address] Thaddeus Cosme 02/15/2023 1:45 PM PRINT INSPECTOR Office Visit Urgent Care, [facility], in [place], [place] [address] [place] [address] Hintze, Lela R, P.A.-C. Pain Epigastric (Primary Dx) Discharge Disposition: [...] often do you attend chur ch or baptist services? 1 to 4 times per year 04/03/2022 Do you belong to any clubs o r organizations such as samaritan groups, unions, fraternal or athletic groups, or [...] Answer Date Recorded PHQ-2 Score 0 12/10/2021 [facility] - Occupational Stress Questionnaire Answer Date [...] Comments Blood Pressure 117/81 03/27/2023 8:42 AM PRINT INSPECTOR Pulse 94 03/27/2023 8:42 AM PRINT INSPECTOR Temperature 36.2 ??C (97.2 ??F) 03/27/2023 8:42 AM CS T Respiratory Rate 16 03/12/2023 8:34 AM PRINT INSPECTOR Oxygen Saturation 98% 03/27/2023 8:42 AM PRINT INSPECTOR Inhaled Oxygen Concentration - - Weight 95.8 kg (211 lb 4.8 oz) 03/27/2023 8:42 A M PRINT INSPECTOR Height 169.4 cm (5' 6.69) 03/27/2023 8:42 AM CS T Body Mass Index 33.4 03/27/2023 8:42 AM PRINT INSPECTOR Plan of Treatment Health Maintenance Due Date [...] AB, IGA, S STAT 03/27/2023 11:44 AM PRINT INSPECTOR CELIAC DISEASE COMPREHENSIVE CASCADE STAT 03/27/2023 11:44 AM PRINT INSPECTOR Abdominal Pain CT ABDOMEN PELVIS WITH IV CONTRAST RAD - Routine (most inpatients and all outpatients) 03/27/2023 10:35 AM PRINT INSPECTOR Abdominal Pain TEST, POCT, U (LAB) STAT 03/27/2023 10:03 AM PRINT INSPECTOR Abdominal Pain HC URINALYSIS AUTO W MICRO STAT 03/27/2023 10:03 AM PRINT INSPECTOR URINALYSIS WITH MICROSCOPIC IF INDICATED, U STAT 03/27/2023 10:03 AM PRINT INSPECTOR Abdominal Pain BACTERIAL CULTURE, AEROBIC + SUSC, URINE STAT 03/27/2023 10:03 AM PRINT INSPECTOR Abdominal Pain LIPASE, S/P STAT 03/27/2023 9:32 AM PRINT INSPECTOR Abdominal Pain C-REACTIVE PROTEIN (CRP), S/P STAT 03/27/2023 9:32 AM PRINT INSPECTOR Abdominal Pain COMPREHENSIVE METABOLIC PANEL, S/P STAT 03/27/2023 9:32 AM PRINT INSPECTOR Abdominal Pain CBC WITH DIFFERENTIAL, B STAT 03/27/2023 9:32 AM PRINT INSPECTOR Abdominal Pain FL ESOPHAGRAM SINGLE CONTRAST RAD - Routine (most inpatients and all outpatients) 03/25/2023 10:08 AM PRINT INSPECTOR Pain Left Lower Quadrant TROPONIN T, 2H/6H, 5TH GEN, P Timed 03/12/2023 12:41 AM PRINT INSPECTOR TROPONIN T, BASELINE, 5TH GEN, P STAT 03/11/2023 10:57 PM PRINT INSPECTOR BASIC METABOLIC PANEL, S/P STAT 03/11/2023 10:57 PM PRINT INSPECTOR CBC WITH DIFFERENTIAL, B STAT 03/11/2023 10:57 PM PRINT INSPECTOR ECG STAT 03/10/2023 10:21 AM PRINT INSPECTOR DX CHEST AP OR PA AND LATERAL 2 VIEWS RAD - Semiurgent (Fast; most ED patients; some inpatients) 03/10/2023 9:37 AM PRINT INSPECTOR INFLUENZA A, B, RSV, PCR, POCT STAT 03/10/2023 8:49 AM PRINT INSPECTOR SARS CORONAVIRUS 2, PCR RAPID, V STAT 03/10/2023 8:49 AM PRINT INSPECTOR CBC WITH DIFFERENTIAL, B STAT 03/10/2023 8:39 AM PRINT INSPECTOR BASIC METABOLIC PANEL, S/P STAT 03/10/2023 8:39 AM PRINT INSPECTOR LIPASE, S/P STAT 03/08/2023 2:50 PM PRINT INSPECTOR CBC WITH DIFFERENTIAL, B STAT 03/08/2023 2:50 PM PRINT INSPECTOR COMPREHENSIVE METABOLIC PANEL, S/P STAT 03/08/2023 2:50 PM PRINT INSPECTOR URINALYSIS WITH MICROSCOPIC STAT 03/08/2023 2:43 PM PRINT INSPECTOR BASIC METABOLIC PANEL, S/P STAT 02/15/2023 2:35 PM PRINT INSPECTOR Pain Epigastric CBC WITH DIFFERENTIAL, B STAT 02/15/2023 2:35 PM PRINT INSPECTOR Pain Epigastric from Last 3 Months Results * Celiac Disease Comprehensive [place] (03/27/2023 11:44 AM PRINT INSPECTOR) HLA-DQA1 Locus Molecular 01:03, 05 Not Applicable 03/31/2023 2:18 PM PRINT INSPECTOR DBB8 HLA-DQB1 Locus Molecular 03:03, 06:03 Not Applicable 03/31/2023 2:18 PM PRINT INSPECTOR DBB8 Comment: DQ Serologic Equivalent: 9, 6 Celiac Gene Pairs Present? No 03/31/2023 2:18 PM PRINT INSPECTOR DBB8 Comment: Method: Molecular typing of HLA [...] if ethnic specific resolution is required. CLIA: [id number] ??CLIA Lead Mechanic: KLAUS MANCUSO MD,PhD Immunoglobulin A (IgA), S 122 61 - 356 mg/dL 03/29/2023 2:59 PM PRINT INSPECTOR [facility] Celiac Disease Interpretation See Comment: Permissive genes absent and negative serology. Celiac disease extremely unlikely. 03/31/2023 10:53 PM PRINT INSPECTOR [facility] Blood (Blood, Venous) 03/27/2023 11:44 AM PRINT INSPECTOR 03/29/2023 8:00 AM PRINT INSPECTOR Narrative [facility] - 03/31/2023 10:53 PM PRINT INSPECTOR Specimen Information: Specimen ID: [id number] Specimen Type: Blood Specimen Collection Start Date: 03/27/2023 11:44 AM Specimen Received Date: 03/29/2023 ??8:00 AM Specimen ID: [id number] Specimen Type: Blood Specimen Collection Start Date: 03/27/2023 11:44 AM Specimen Received Date: 03/29/2023 ??6:42 AM Specimen ID: [id number] Specimen Type: Blood Specimen Collection Start Date: 03/27/2023 11:44 AM Specimen Received Date: 03/29/2023 ??7:40 AM Mario Valle P.A.-C. LAB BLOOD N ON ADD-ON [facility] [address] [place] [address] DBB8 [facility] [address] [place] [address] [facility] [address] [place] [address] [place] [phone] [place] [facility] [place] [address] * tTG (Tissue Transglutaminase), Antibody, IgA (03/27/2023 11:44 AM PRINT INSPECTOR) Tissue Transglutaminase Ab, IgA, S <1.2 <4.0 (Negative ) U/mL 03/30/2023 12:34 PM PRINT INSPECTOR [facility] Blood 03/27/2023 11:4 4 AM PRINT INSPECTOR 03/29/2023 3:34 PM PRINT INSPECTOR Mariomckenna Valle P.A.-C. LAB BLOOD A DD-ON Performing Organization Address City/State/[facility] Co de Phone Number [facility] [address] [place] [address] [facility] [address] [place] [address] * CT Abdomen Pelvis with IV Contrast (03/27/2023 10:35 AM PRINT INSPECTOR) Anatomical Region Laterality Modality Abdomen, Pelvis, Abdominal R ST LOS, Abdominal ARZ LOS, Abdominal FLA LOS N/A Computed Tomography 03/27/2023 10:3 9 AM PRINT INSPECTOR Impressions 03/27/2023 11:01 AM PRINT INSPECTOR 1. Normal-appearing appendix. 2. No acute intra-abdominal/pelvic pathology, no CT findings to explain the patient's symptoms of right lower quadrant abdominal pain. Narrative 03/27/2023 11:01 AM PRINT INSPECTOR EXAM: CT ABDOMEN PELVIS WITH IV CONTRAST [...] appendix in the right lower quadrant on [id number] of series 3. No small bowel or [...] lower quadrant abdominal pain. Mario Valle P.A.-C. [facility] [place] PROC EDURES * (ABNORMAL) Urinalysis with Microscopic if Indicated (03/27/2023 10:03 AM PRINT INSPECTOR) Source Urine, Urine, Midstream 03/27/2023 10:17 AM PRINT INSPECTOR NPRG Clarity Clear Clear 03/27/2023 10:20 AM PRINT INSPECTOR NPRG Color Yellow 03/27/2023 10:20 AM PRINT INSPECTOR NPRG Comment: ----REFERENCE VALUE---- Colorless Yellow Chasity Blood Negative Negative 03/27/2023 10:20 AM PRINT INSPECTOR NPRG Nitrite Negative Negative 03/27/2023 10:20 AM PRINT INSPECTOR NPRG Leukocyte Esterase Small(A) Negative 03/27/2023 10:20 AM PRINT INSPECTOR NPRG Protein Negative mg/dL 03/27/2023 10:20 AM PRINT INSPECTOR NPRG Comment: ----REFERENCE VALUE---- Negative Trace Glucose Negative Negative mg/dL 03/27/2023 10:20 AM PRINT INSPECTOR NPRG Ketones, QI(U) Negative Negative mg/dL 03/27/2023 10:20 AM PRINT INSPECTOR NPRG Bilirubin Negative Negative 03/27/2023 10:20 AM PRINT INSPECTOR NPRG pH 7.0 5.0 - 8.0 03/27/2023 10:20 AM PRINT INSPECTOR NPRG Specific Stella 1.015 1.001 - 1.035 03/27/2023 10:20 AM PRINT INSPECTOR NPRG Urobilinogen 0.2 0.2 - 1.0 mg/dL 03/27/2023 10:20 AM PRINT INSPECTOR NPRG Urine (Urine, Midstream) 03/27/2023 10:03 AM PRINT INSPECTOR 03/27/2023 10:17 AM PRINT INSPECTOR Mario Valle P.A.-C. LAB URINE O RDERABLES [facility] [address] [place] [address], [place] NPRG [facility] [address] [place] [address] * (ABNORMAL) Microscopic Manual (03/27/2023 10:03 AM PRINT INSPECTOR) White Blood Cells Occ-3 /hpf 03/27/2023 10:32 AM PRINT INSPECTOR NPRG Comment: ----REFERENCE VALUE---- Males: 0-3 Females: 0-10 Unknown: 0-10 Red Blood Cells None Seen 0 - 2 /hpf 03/27/2023 10:32 AM PRINT INSPECTOR NPRG Squamous Cells Occ-3 /hpf 03/27/2023 10:32 AM PRINT INSPECTOR NPRG Bacteria Present(A) None Seen 03/27/2023 10:32 AM PRINT INSPECTOR NPRG Urine 03/27/2023 10:0 3 AM PRINT INSPECTOR 03/27/2023 10:17 AM PRINT INSPECTOR Mario Valle P.A.-C. LAB URINE O RDERABLES [facility] [address] [place] [address], [facility] NPRG [facility] [address] [place] [address] * (ABNORMAL) Bacterial Culture, Aerobic + Susceptibility, Urine (03/27/2023 10:03 AM PRINT INSPECTOR) Urine Culture with mixed microbiota(A) 03/30/2023 6:38 AM PRINT INSPECTOR MKTO Urine Culture PSEUDOMONAS AERUGINOSA >100,000 cfu/mL (A) 03/30/2023 6:38 AM PRINT INSPECTOR MKTO Urine Culture KLEBSIELLA PNEUMONIAE COMPLEX 10,000-100,000 cfu/mL (A) 03/30/2023 6:38 AM PRINT INSPECTOR MKTO Urine (Urine, Midstream) 03/27/2023 10:03 AM PRINT INSPECTOR 03/27/2023 4:21 PM PRINT INSPECTOR Comment:Specimen Source Site : Urine Narrative Organism [...] P.A.-C. LAB MICROBI OLOGY - GENERAL ORDERABLES [facility] [address] [place] [address], [facility] MKTO [facility] [address] [place] [address] * Test, POCT, Urine (Lab) (03/27/2023 10:03 AM PRINT INSPECTOR) [facility] Test, POCT, U Negative 03/27/2023 10:25 AM PRINT INSPECTOR NPRG Urine (Urine, Midstream) 03/27/2023 10:03 AM PRINT INSPECTOR 03/27/2023 10:17 AM PRINT INSPECTOR Mario Valle P.A.-C. LAB POCT OR DERABLES - DEVICE [facility] [address] [place] [address], [facility] NPRG [facility] [address] [place] [address] * CBC with Differential, Blood (03/27/2023 9:32 AM PRINT INSPECTOR) Only the most recent of5 resultswithin the time period is included. Hemoglobin 13.9 11.6 - 15.0 g/dL 03/27/2023 9:41 AM PRINT INSPECTOR NPRG Hematocrit 42.7 35.5 - 44.9 % 03/27/2023 9:41 AM PRINT INSPECTOR NPRG Erythrocytes 4.95 3.92 - 5.13 x10(12)/L 03/27/2023 9:41 AM PRINT INSPECTOR NPRG MCV 86.3 78.2 - 97.9 fL 03/27/2023 9:41 AM PRINT INSPECTOR NPRG RBC Distrib Width 14.7 12.2 - 16.1 % 03/27/2023 9:41 AM PRINT INSPECTOR NPRG Platelet Count 278 157 - 371 x10(9)/L 03/27/2023 9:41 AM PRINT INSPECTOR NPRG Leukocytes 7.4 3.4 - 9.6 x10(9)/L 03/27/2023 9:41 AM PRINT INSPECTOR NPRG Neutrophils 5.52 1.56 - 6.45 x10(9)/L 03/27/2023 9:41 AM PRINT INSPECTOR NPRG Lymphocytes 1.09 0.95 - 3.07 x10(9)/L 03/27/2023 9:41 AM PRINT INSPECTOR NPRG Monocytes 0.65 0.26 - 0.81 x10(9)/L 03/27/2023 9:41 AM PRINT INSPECTOR NPRG Eosinophils 0.16 0.03 - 0.48 x10(9)/L 03/27/2023 9:41 AM PRINT INSPECTOR NPRG Basophils 0.01 0.01 - 0.08 x10(9)/L 03/27/2023 9:41 AM PRINT INSPECTOR NPRG Blood (Blood, Venous) 03/27/2023 9:32 AM PRINT INSPECTOR 03/27/2023 9:37 AM PRINT INSPECTOR Mario Valle P.A.-C. LAB BLOOD A DD-ON Performing Organization Address [facility] Co de Phone Number [facility] [address] [place] [address], [address] [address] * (ABNORMAL) CRP (C-Reactive Protein) (03/27/2023 9:32 AM PRINT INSPECTOR) C-Reactive Protein (CRP), P 15.2(H) <5.0 mg/L 03/27/2023 10:02 AM PRINT INSPECTOR NPRG Blood (Blood, Venous) 03/27/2023 9:32 AM PRINT INSPECTOR 03/27/2023 9:37 AM PRINT INSPECTOR Mario Valle P.A.-C. LAB BLOOD A DD-ON Performing Organization Address [facility] de Phone Number [facility] [address] [place] [address], [address] [address] * Lipase (03/27/2023 9:32 AM PRINT INSPECTOR) Only the most recent of2 resultswithin the time period is included. Lipase, P 36 13 - 60 U/L 03/27/2023 10:02 AM PRINT INSPECTOR NPRG Blood (Blood, Venous) 03/27/2023 9:32 AM PRINT INSPECTOR 03/27/2023 9:37 AM PRINT INSPECTOR Mario Shatskikh P.A.-C. LAB BLOOD A DD-ON [facility] [address] [place] [address], [facility] NPRG [facility] [address] [place] [address] * Comprehensive Metabolic Panel (03/27/2023 9:32 AM PRINT INSPECTOR) Only the most recent of2 resultswithin the time period is included. Pathologist [facility] Potassium, P 4.0 3.6 - 5.2 mmol/L 03/27/2023 10:02 AM PRINT INSPECTOR NPRG Sodium, P 139 135 - 145 mmol/L 03/27/2023 10:02 AM PRINT INSPECTOR NPRG Chloride, P 105 98 - 107 mmol/L 03/27/2023 10:02 AM PRINT INSPECTOR NPRG Bicarbonate, P 22 22 - 29 mmol/L 03/27/2023 10:02 AM PRINT INSPECTOR NPRG Anion Gap, P 12 7 - 15 03/27/2023 10:02 AM PRINT INSPECTOR NPRG BUN (Blood Urea Nitrogen), P 8 6 - 21 mg/dL 03/27/2023 10:02 AM PRINT INSPECTOR NPRG Creatinine 0.87 0.59 - 1.04 mg/dL 03/27/2023 10:02 AM PRINT INSPECTOR NPRG Estimated GFR (eGFR) 86 >=60 mL/min/BS A 03/27/2023 10:02 AM PRINT INSPECTOR NPRG Comment: Estimated GFR calculated using the 2020 CKD_EPI creatinine equation. Calcium, Total, P 9.1 8.6 - 10.0 mg/dL 03/27/2023 10:02 AM PRINT INSPECTOR NPRG Glucose, P 93 70 - 140 mg/dL 03/27/2023 10:02 AM PRINT INSPECTOR NPRG Protein, Total, P 6.5 6.3 - 7.9 g/dL 03/27/2023 10:02 AM PRINT INSPECTOR NPRG Albumin, P 4.0 3.5 - 5.0 g/dL 03/27/2023 10:02 AM PRINT INSPECTOR NPRG Aspartate Aminotransferase (AST), P 14 8 - 43 U/L 03/27/2023 10:02 AM PRINT INSPECTOR NPRG Alkaline Phosphatase, P 69 35 - 104 U/L 03/27/2023 10:02 AM PRINT INSPECTOR NPRG Alanine Aminotransferase (ALT), P 30 7 - 45 U/L 03/27/2023 10:02 AM PRINT INSPECTOR NPRG Bilirubin, Total, P 0.5 0.0 - 1.2 mg/dL 03/27/2023 10:02 AM PRINT INSPECTOR NPRG Blood (Blood, Venous) 03/27/2023 9:32 AM PRINT INSPECTOR 03/27/2023 9:37 AM PRINT INSPECTOR Mario Valle P.A.-C. LAB BLOOD A DD-ON [facility] [address] [place] [address], [facility] NPRG [facility] [address] [place] [address] * FL Esophagram Single Contrast (03/25/2023 10:08 AM PRINT INSPECTOR) Anatomical Region Laterality Modality Gastro Intestinal, Abdominal RST LOS, Abdominal ARZ LOS, Abdominal FLA LOS N/A Digital Radiography Impressions 03/25/2023 10:13 AM PRINT INSPECTOR Small sliding-type hiatal hernia. No reflux observed. Narrative 03/25/2023 10:13 AM PRINT INSPECTOR EXAM: FL ESOPHAGRAM SINGLE CONTRAST FINDINGS: Normal [...] T, 2h/6h, 5th Gen (03/12/2023 12:41 AM PRINT INSPECTOR) Troponin T, 2 hr, 5th gen <6 <=10 ng/L 03/12/2023 1:03 AM PRINT INSPECTOR NPRG 2H Delta 0 ng/L 03/12/2023 1:03 AM PRINT INSPECTOR NPRG 2H Delta Interp Not Changing 03/12/2023 1:03 AM PRINT INSPECTOR NPRG Troponin T, 6 hr, 5th gen CANCELED ng/L 03/12/2023 1:03 AM PRINT INSPECTOR NPRG Comment:Result canceled by t he ancillary. 6H Delta CANCELED ng/L 03/12/2023 1:03 AM PRINT INSPECTOR NPRG Comment:Result canceled by t he ancillary. 6H Delta % CANCELED % 03/12/2023 1:03 AM PRINT INSPECTOR NPRG Comment:Result canceled by t he ancillary. Blood (Blood, Venous) 03/12/2023 12:41 AM PRINT INSPECTOR 03/12/2023 12:43 AM PRINT INSPECTOR Narrative [facility] - 03/12/2023 1:03 AM PRINT INSPECTOR Specimen Information: Specimen ID: [id number] Specimen Type: Blood Specimen Collection Start Date: 03/12/2023 12:41 AM Specimen Received Date: 03/12/2023 12:43 AM Specimen ID: [id number] Specimen Type: Blood Boyd Lynn M.D. LAB BLOOD TROPONIN [facility] [address] [place] [address], [place] [address] [address] [place] [address] * Troponin T, Baseline, 5th gen (03/11/2023 10:57 PM PRINT INSPECTOR) Troponin T, Baseline, 5th gen <6 <=10 ng/L 03/11/2023 11:50 PM PRINT INSPECTOR NPRG Blood (Blood, Venous) 03/11/2023 10:57 PM PRINT INSPECTOR 03/11/2023 11:01 PM PRINT INSPECTOR Boyd Lynn M.D. LAB BLOOD TROPONIN [facility] [address] [place] [address], [place] NPRG [facility] [address] [place] [address] * Basic Metabolic Panel (03/11/2023 10:57 PM PRINT INSPECTOR) Only the most recent of3 resultswithin the time period is included. Potassium, P 4.0 3.6 - 5.2 mmol/L 03/11/2023 11:25 PM PRINT INSPECTOR NPRG Sodium, P 139 135 - 145 mmol/L 03/11/2023 11:25 PM PRINT INSPECTOR NPRG Chloride, P 104 98 - 107 mmol/L 03/11/2023 11:25 PM PRINT INSPECTOR NPRG Bicarbonate, P 23 22 - 29 mmol/L 03/11/2023 11:25 PM PRINT INSPECTOR NPRG Anion Gap, P 12 7 - 15 03/11/2023 11:25 PM PRINT INSPECTOR NPRG BUN (Blood Urea Nitrogen), P 9 6 - 21 mg/dL 03/11/2023 11:25 PM PRINT INSPECTOR NPRG Creatinine 0.83 0.59 - 1.04 mg/dL 03/11/2023 11:25 PM PRINT INSPECTOR NPRG Estimated GFR (eGFR) >90 >=60 mL/min/BSA 03/11/2023 11:25 PM PRINT INSPECTOR NPRG Comment: Estimated GFR calculated using the 2020 CKD_EPI creatinine equation. Calcium, Total, P 9.6 8.6 - 10.0 mg/dL 03/11/2023 11:25 PM PRINT INSPECTOR NPRG Glucose, P 98 70 - 140 mg/dL 03/11/2023 11:25 PM PRINT INSPECTOR NPRG Blood (Blood, Venous) 03/11/2023 10:57 PM PRINT INSPECTOR 03/11/2023 11:01 PM PRINT INSPECTOR Boyd Lynn M.D. LAB BLOOD ADD-ON [facility] [address] [place] [address], [place] NPRG [facility] [address] [place] [address] * ECG 12 Lead (03/10/2023 10:21 AM PRINT INSPECTOR) Ventricular Rate ECG/Min 73 BPM MUSE TN Interval 132 ms MUSE QRSD Interval 90 ms MUSE QT Interval 416 ms MUSE QTC Interval 458 ms MUSE P Wilson 66 degrees MUSE R Wilson 14 degrees MUSE T Wave Wilson -1 degrees MUSE 03/10/2023 10:2 1 AM PRINT INSPECTOR 03/10/2023 10:42 AM PRINT INSPECTOR Impressions MUSE - 03/10/2023 10:40 AM PRINT INSPECTOR Normal sinus rhythm Nonspecific ST and T [...] and Lateral 2 Views (03/10/2023 9:37 AM PRINT INSPECTOR) Anatomical Region Laterality Modality Chest, Thoracic RST LOS, Tho racic ARZ LOS, Thoracic FLA LOS N/A Digital Radiography Impressions 03/10/2023 9:38 AM PRINT INSPECTOR Stable chest, no acute cardiopulmonary disease. Narrative 03/10/2023 9:38 AM PRINT INSPECTOR EXAM: DX CHEST AP OR PA AND [...] 2, PCR Rapid Symptomatic (03/10/2023 8:49 AM PRINT INSPECTOR) SARS CoV-2, PCR, Rapid, V Undetected Undetected 03/10/2023 9:12 AM PRINT INSPECTOR NPRG Comment: ----ADDITIONAL INFORMATION---- This RT-PCR test was performed using the [employer] SARS-CoV-2 and Influenza A/B Reagent assay from [employer], which has received Emergency Use Authorization(EUA) by the U.S. Food and Drug Administration. Fact sheets for this Emergency Use Authorization (EUA) assay can be found at the following links: For Healthcare Providers: https://www.fda.gov/media/564406/download For Patients: https://www.fda.gov/media/699751/download SARS Coronavirus 2, Source, Rapid Swab, Nasopharynx 03/10/2023 8:49 AM PRINT INSPECTOR NPRG Swab (Nasopharynx) 03/10/2023 8:49 AM PRINT INSPECTOR 03/10/2023 8:49 AM PRINT INSPECTOR Jesus Manuel Hensley M.D. LAB MICROBIOLOGY - [facility] ORDERABLES [facility] [address] [place] [address], [facility] NPRG [place] [address] [place] [address] * Influenza A/B and RSV, PCR, Point of Care (03/10/2023 8:49 AM PRINT INSPECTOR) Influenza A, POCT Negative Negative 03/10/2023 8:53 AM PRINT INSPECTOR NPRG Influenza B, POCT Negative Negative 03/10/2023 8:53 AM PRINT INSPECTOR NPRG Resp Syncytial Virus, POCT Negative Negative 03/10/2023 8:53 AM PRINT INSPECTOR NPRG Swab (Nasopharynx) 03/10/2023 8:49 AM PRINT INSPECTOR 03/10/2023 8:49 AM PRINT INSPECTOR Jesus Manuel Hensley M.D. LAB POCT ORDERABLES - DEVICE [facility] [address] [place] [address], [facility] NPRG [facility] [address] [place] [address] * (ABNORMAL) Urinalysis with Microscopic: Urine, Midstream (03/08/2023 2:43 PM PRINT INSPECTOR) Source Urine, Urine, Midstream 03/08/2023 3:00 PM PRINT INSPECTOR MKTO Clarity Clear Clear 03/08/2023 3:00 PM PRINT INSPECTOR MKTO Color Yellow 03/08/2023 3:00 PM PRINT INSPECTOR MKTO Comment: ----REFERENCE VALUE---- Colorless Yellow Chasity Blood Negative Negative 03/08/2023 3:00 PM PRINT INSPECT[employer] [facility] Nitrite Negative Negative 03/08/2023 3:00 PM [employer] [facility] Leukocyte Esterase Trace(A) Negative 03/08/2023 3:00 PM [employer] [facility] Protein Negative mg/dL 03/08/2023 3:00 PM [employer] [facility] Comment: ----REFERENCE VALUE---- Negative Trace Glucose Negative Negative mg/dL 03/08/2023 3:00 PM [employer] [facility] Ketone Negative Negative mg/dL 03/08/2023 3:00 PM [employer] [facility] Bilirubin Negative Negative 03/08/2023 3:00 PM [employer] [facility] pH 8.5(A) 5.0 - 8.0 03/08/2023 3:00 PM [employer] [facility] Specific Stella 1.007 1.001 - 1.035 03/08/2023 3:00 PM [employer] [facility] Urobilinogen 0.2 0.2 - 1.0 mg/dL 03/08/2023 3:00 PM [employer] [facility] White Blood Cells Occ-3 /hpf 03/08/2023 3:03 PM PRINT INSPECTOR MKTO Comment: ----REFERENCE VALUE---- Males: 0-3 Females: 0-10 Unknown: 0-10 Red Blood Cells None Seen 0 - 2 /hpf 3:03 PM PRINT INSPECTOR MKTO Squamous Cells Occ-3 /hpf 03/08/2023 3:03 PM PRINT INSPECTOR MKCOURTNEY Urine (Urine, Midstream) 03/08/2023 2:43 PM PRINT INSPECTOR 03/08/2023 2:56 PM PRINT INSPECTOR Ronal Henderson M.D. LAB URINE ORDERABL ES [facility] [address] [place] [address], [facility] MKTO [facility] [address] [place] [address] from Last 3 Months Care Teams Flame Cutting Supervisor Relationship Specialty Start Date End Date Elsewhere, Pcp PCP - General Internal Medicine 01/07/22
--- OUTSIDE RECORDS SUMMARY | 2023-04-22 12:01 | XMS_ITS | Encounter Summary ---
Author Name Unknown Organization [facility] Address [address] [place] [address] Care Team Providers Care Stringer Machine Tender Name Role Phone Elsewhere, Pcp Primary Care Provider Unavailabl e Reason for Visit * Reason Comments Dizziness Encounter Details Date Type Department Care Team ([facility] st Contact Info) Description 03/11/2023 8:53 PM BLACK BELT - 03/12/2023 2:30 AM [facility] [place] [facility] [address] [place] [phone] Boyd Lynn M.D. [address] [place] [phone] Lightheadedness (Primary Dx) Discharge Disposition: Home or [...] How often do you attend chur or episcopalian services? 1 to 4 times per year 04/03/2022 Do you belong to any clubs o r organizations such as mandaen groups, unions, fraternal or athletic groups, or [...] Answer Date Recorded PHQ-2 Score 0 12/10/2021 [facility] Occupat ional Health - Occupational Stress [...] Comments Blood Pressure 122/69 03/12/2023 1:15 AM BLACK BELT Pulse 66 03/12/2023 1:30 AM BLACK BELT Temperature 37 ??C (98.6 ??F) 03/11/2023 9:12 PM BLACK BELT Respiratory Rate 13 03/12/2023 12:30 AM BLACK BELT Oxygen Saturation 99% 03/12/2023 1:30 AM BLACK BELT Inhaled Oxygen Concentration - - Weight - - Height - - Body Mass Index - - documented in this encounter Discharge Instructions * Discharge Instructions* Boyd Lynn M.D. - 03/12/2023 2:30 AM BLACK BELT Unclear cause of your lightheadedness tonight, though [...] care doctor early to mid next week. K BELT documented in this encounter Medications at Time [...] Lynn M.D. - 03/11/2023 11:58 PM CST [facility] 03/12/2023 8:25 AM BLACK BELT *Encounter labs and radiology results at the [...] % CANCELED Narrative: Specimen Information: Specimen ID: [id number] Specimen Type: Blood Specimen Collection Start Date: 03/12/2023 12:41 AM Specimen Received Date: 03/12/2023 12:43 AM Specimen ID: [id number] Specimen Type: Blood No orders to display Boyd Lynn M.D. 03/12/23 0830 K BELT documented in this encounter Plan of Treatment Not on file documented as of this encounter Procedures Procedure Name Priority Date/Time Associated Diagnosis Comments TROPONIN T, 2H/6H, 5TH GEN, P Timed 03/12/2023 12:41 AM BLACK BELT TROPONIN T, BASELINE, 5TH GEN, P STAT 03/11/2023 10:57 PM BLACK BELT CBC WITH DIFFERENTIAL, B STAT 03/11/2023 10:57 PM BLACK BELT BASIC METABOLIC PANEL, S/P STAT 03/11/2023 10:57 PM BLACK BELT documented in this encounter Results * Troponin T, 2h/6h, 5th Gen (03/12/2023 12:41 AM BLACK BELT) Troponin T, 2 hr, 5th gen <6 <=10 ng/L 03/12/2023 1:03 AM BLACK BELT NPRG 2H Delta 0 ng/L 03/12/2023 1:03 AM BLACK BELT NPRG 2H Delta Interp Not Changing 03/12/2023 1:03 AM BLACK BELT NPRG Troponin T, 6 hr, 5th gen CANCELED ng/L 03/12/2023 1:03 AM BLACK BELT NPRG Comment:Result canceled by t he ancillary. 6H Delta CANCELED ng/L 03/12/2023 1:03 AM BLACK BELT NPRG Comment:Result canceled by t he ancillary. 6H Delta % CANCELED % 03/12/2023 1:03 AM BLACK BELT NPRG Comment:Result canceled by t he ancillary. Blood (Blood, Venous) 03/12/2023 12:41 AM BLACK BELT 03/12/2023 12:43 AM BLACK BELT Narrative [facility] - 03/12/2023 1:03 AM BLACK BELT Specimen Information: Specimen ID: [id number] Specimen Type: Blood Specimen Collection Start Date: 03/12/2023 12:41 AM Specimen Received Date: 03/12/2023 12:43 AM Specimen ID: [id number] Specimen Type: Blood Boyd Lynn M.D. LAB BLOOD [facility] [address] [place] [address], [facility] NPRG [place] [address] [place] [address] * Troponin T, Baseline, 5th gen (03/11/2023 10:57 PM BLACK BELT) Troponin T, Baseline, 5th gen <6 <=10 ng/L 03/11/2023 11:50 PM BLACK BELT NPRG Blood (Blood, Venous) 03/11/2023 10:57 PM BLACK BELT 03/11/2023 11:01 PM BLACK BELT Boyd Lynn M.D. LAB BLOOD [facility] [address] [place] [address], [place] [facility] [place] [address] [place] [address] * Basic Metabolic Panel (03/11/2023 10:57 PM BLACK BELT) Potassium, P 4.0 3.6 - 5.2 mmol/L 03/11/2023 11:25 PM BLACK BELT NPR[facility] Sodium, P 139 135 - 145 mmol/L 03/11/2023 11:25 PM BLACK BELT NPR[facility] Chloride, P 104 98 - 107 mmol/L 03/11/2023 11:25 PM BLACK BELT NPR[facility] Bicarbonate, P 23 22 - 29 mmol/L 03/11/2023 11:25 PM BLACK BELT [facility] Anion Gap, P 12 7 - 15 03/11/2023 11:25 PM BLACK BELT [facility] BUN (Blood Urea Nitrogen), P 9 6 - 21 mg/dL 03/11/2023 11:25 PM BLACK BELT NPR[facility] Creatinine 0.83 0.59 - 1.04 mg/dL 03/11/2023 11:25 PM BLACK BELT [facility] Estimated GFR (eGFR) >90 >=60 mL/min/BSA 03/11/2023 11:25 PM BLACK BELT NPRG Comment: Estimated GFR calculated using the 2020 CKD_EPI creatinine equation. Calcium, Total, P 9.6 8.6 - 10.0 mg/dL 03/11/2023 11:25 PM BLACK BELT NPR[facility] Glucose, P 98 70 - 140 mg/dL 03/11/2023 11:25 PM BLACK BELT NPR[facility] Blood (Blood, Venous) 03/11/2023 10:57 PM BLACK BELT 03/11/2023 11:01 PM BLACK BELT Boyd Lynn M.D. LAB BLOOD ADD-ON [facility] [address] [place] [address], [facility] NPR[facility] [address] [place] [address] * CBC with Differential, Blood (03/11/2023 10:57 PM BLACK BELT) Hemoglobin 12.9 11.6 - 15.0 g/dL 03/11/2023 11:19 PM BLACK BELT [facility] Hematocrit 39.5 35.5 - 44.9 % 03/11/2023 11:19 PM BLACK BELT [facility] Erythrocytes 4.57 3.92 - 5.13 x10(12)/L 03/11/2023 11:19 PM BLACK BELT [facility] MCV 86.4 78.2 - 97.9 fL 03/11/2023 11:19 PM BLACK BELT NPR[facility] RBC Distrib Width 14.3 12.2 - 16.1 % 03/11/2023 11:19 PM BLACK BELT NPR[facility] Platelet Count 261 157 - 371 x10(9)/L 03/11/2023 11:19 PM BLACK BELT [facility] Leukocytes 7.4 3.4 - 9.6 x10(9)/L 03/11/2023 11:19 PM BLACK BELT NPR[facility] Neutrophils 4.92 1.56 - 6.45 x10(9)/L 03/11/2023 11:19 PM BLACK BELT NPR[facility] Lymphocytes 1.64 0.95 - 3.07 x10(9)/L 03/11/2023 11:19 PM BLACK BELT NPR[facility] Monocytes 0.73 0.26 - 0.81 x10(9)/L 03/11/2023 11:19 PM BLACK BELT NPRG Eosinophils 0.13 0.03 - 0.48 x10(9)/L 03/11/2023 11:19 PM BLACK BELT NPRG Basophils 0.02 0.01 - 0.08 x10(9)/L 03/11/2023 11:19 PM BLACK BELT NPRG Blood (Blood, Venous) 03/11/2023 10:57 PM BLACK BELT 03/11/2023 11:01 PM BLACK BELT Boyd Lynn M.D. LAB BLOOD ADD-ON [facility] [address] [place] [address], [facility] NPRG [facility] [address] [place] [address] documented in this encounter Visit Diagnoses Diagnosis [...] 1 dose New Bag 03/12/2023 12:15 AM BLACK BELT 1,000 mL 1000 mL/hr sodium chloride 0.9 % injection 2-10 mL 2-10 mL, intravenous, As needed, line care, Starting on Belinda 03/11/23 at 2239 documented in this encounter Active and Recently Administered Medications Times are shown in BLACK BELT. Scheduled Medication Order 03/10/2023 03/11/2023 03/12/2023 NaCl [...] Total Score: 3 04/23/19 22 8:30 AM BLACK BELT documented as of this encounter Care Teams Stringer Machine Tender Relationship Specialty Start Date End Date Elsewhere, Pcp PCP - General Internal Medicine 01/07/22 documented as of this encounter
--- OUTSIDE RECORDS SUMMARY | 2023-04-22 12:01 | XMS_ITS | Encounter Summary ---
Author Name Unknown Organization [facility] Address [address] [place] [address] Care Team Providers Care Supervisor Word Processing Name Role Phone Elsewhere, Pcp Primary Care Provider Unavailabl e Encounter Details Date Type Department Care Team (Late st Contact Info) Description 03/30/2023 Orders Only Urgent Care, [facility], in [place], [place] [address] [place] [phone] Mario Valle, P.A.-C. [address], [place] [phone] Urinary Tract Infection Site Not Specified (Primary [...] week 04/03/2022 How often do you attend [facility] or scientologist services? 1 to 4 times per year 04/03/2022 Do you belong to any clubs o r organizations such as moravian groups, unions, fraternal or athletic groups, or [...] Score 0 12/10/2021 [facility] - [...] Total Score: 3 04/23/19 22 8:30 AM DATA COORDINATOR documented as of this encounter Care Teams Supervisor Word Processing Relationship Specialty Start Date End Date Elsewhere, Pcp PCP - General Internal Medicine 01/07/22 documented as of this encounter
--- OUTSIDE RECORDS SUMMARY | 2023-04-22 12:01 | XMS_ITS | Encounter Summary ---
Author Name Unknown Organization [facility] Address [address] [place] [address] Care Team Providers Care Final Cigar And Box Examiner Name Role Phone Elsewhere, Pcp Primary Care Provider Unavailabl e Reason for Referral * MRI/CAT/PET Scan (Routine) - Closed Specialty Diagnoses / Procedures Referred By Polinaac t Referred To Contact Radiology Diagnoses Abdominal Pain Procedures CT Abdomen Pelvis with IV Contrast Mario Valle P.A.-C. [address] [place] [phone] [facility] Referral ID Status Reason Start Date Expiration Date Visits Re quested Visits Authorized [id number] Closed 03/27/2023 03/26/2024 1 1 ETIC RESONANCE IMAGING DIRECTOR Reason for Visit * MRI/CAT/PET Scan (Routine) - Closed Specialty Diagnoses / Procedures Referred By Contac t Referred To Contact Radiology Diagnoses Abdominal Pain Procedures CT Abdomen Pelvis with IV Contrast Mario Valle P.A.-C. [address] [place] [phone] [facility] Referral ID Status Reason Start Date Expiration Date Visits Re quested Visits Authorized [id number] Closed 03/27/2023 03/26/2024 1 1 Encounter Details Date Type Department Care Team (Latest Contact Info) Description 03/27/2023 10:14 AM MAGNETIC RESONANCE IMAGING DIRECTOR - 03/27/2023 11:59 PM MAGNETIC RESONANCE IMAGING DIRECTOR Hospital Encounter Department of Radiology in [place], [place] [address] [place] [phone] Mario Valle P.A.-C. [address] [place] [phone] Abdominal Pain Discharge Disposition: Home or [...] often do you attend chur ch or gnosticist services? 1 to 4 times per year 04/03/2022 Do you belong to any clubs o r organizations such as holiness groups, unions, fraternal or athletic groups, or [...] inpatients and all outpatients) 03/27/2023 10:35 AM MAGNETIC RESONANCE IMAGING DIRECTOR Abdominal Pain documented in this encounter Results * CT Abdomen Pelvis with IV Contrast (03/27/2023 10:35 AM MAGNETIC RESONANCE IMAGING DIRECTOR) Anatomical Region Laterality Modality Abdomen, Pelvis, Abdominal R ST LOS, Abdominal ARZ LOS, Abdominal FLA LOS N/A Computed Tomography 03/27/2023 10:3 9 AM MAGNETIC RESONANCE IMAGING DIRECTOR Impressions 03/27/2023 11:01 AM MAGNETIC RESONANCE IMAGING DIRECTOR 1. Normal-appearing appendix. 2. No acute intra-abdominal/pelvic pathology, no CT findings to explain the patient's symptoms of right lower quadrant abdominal pain. Narrative 03/27/2023 11:01 AM MAGNETIC RESONANCE IMAGING DIRECTOR EXAM: CT ABDOMEN PELVIS WITH IV CONTRAST [...] appendix in the right lower quadrant on -684 of series 3. No small bowel or [...] lower quadrant abdominal pain. Mario Valle P.A.-C. [facility] [place] PROC EDURES documented [...] Radiant Medication Guidelines Given 03/27/2023 10:36 AM MAGNETIC RESONANCE IMAGING DIRECTOR 140 mL NaCl 0.9 % bolus 100 mL 100 mL, intravenous, at 100 mL/hr, Administer over 1 Hours, Once in imaging, Post Contrast, Starting on 03/27/23 at 1025, For 1 dose Bolus from Bag 03/27/2023 10:40 AM MAGNETIC RESONANCE IMAGING DIRECTOR 100 mL 100 mL/hr sodium chloride 0.9 % injection 10 mL 10 mL, intravenous, Once in imaging, line care, Starting on 03/27/23 at 1025, For 1 dose Given 03/27/2023 10:36 AM MAGNETIC RESONANCE IMAGING DIRECTOR 10 mL documented in this encounter Additional Health Concerns Assessment Noted Time PHQ-9 Depression Total Score: 3 04/23/19 22 8:30 AM MAGNETIC RESONANCE IMAGING DIRECTOR documented as of this encounter Care Teams Final Cigar And Box Examiner Relationship Specialty Start Date End Date Elsewhere, Pcp PCP - General Internal Medicine 01/07/22 documented as of this encounter
--- OUTSIDE RECORDS SUMMARY | 2023-04-22 12:01 | XMS_ITS ---
Author Name Unknown Organization [facility] Address [address] [place] [address] Care Team Providers Care Research Engineer Marine Equipment Name Role Phone Unavailable Unavailable Unavailable Surgery Details Not on file Complications Check Surgery Details section. Procedure Estimated Blood Loss Check Surgery Details section. Procedure Findings Check Surgery Details section. Procedure Specimens Taken Check Surgery Details section.
--- OUTSIDE RECORDS SUMMARY | 2023-04-22 12:01 | XMS_ITS | Encounter Summary ---
Author Name Unknown Organization [facility] Address [address] [place] [address] Care Team Providers Care Metallographic Technician Name Role Phone Elsewhere, Pcp Primary Care Provider Unavailabl e Reason for Referral * MRI/CAT/PET Scan (Routine) - Closed Specialty Diagnoses / Procedures Referred By Tania t Referred To Contact Radiology Diagnoses Abdominal Pain Procedures CT Abdomen Pelvis with IV Contrast Mario Valle P.ALarry [address] [place] [address] [facility] Region Referral ID Status Reason Start Date Expiration Date Visits Re quested Visits Authorized [id number] Closed 03/27/2023 03/26/2024 1 1 H SPECIALIST Reason for Visit * Reason Comments Abdominal Pain Had sudden pain and nausea last night. Also had a barium study on morning. Has had bowel movements since Encounter Details Date Type Department Care Team (Late st Contact Info) Description 03/27/2023 9:00 AM PSYCH SPECIALIST Office Visit Urgent Care, [facility], in [place], [place] [address] [place] [address] Mario Valle P.A.-C. [address] [phone] Abdominal Pain (Primary Dx) Discharge Disposition: Home [...] often do you attend chur ch or evangelical services? 1 to 4 times per year 04/03/2022 Do you belong to any clubs o r organizations such as christian groups, unions, fraternal or athletic groups, or [...] Answer Date Recorded PHQ-2 Score 0 12/10/2021 [facility] - Occupational Stress Questionnaire Answer Date [...] Comments Blood Pressure 117/81 03/27/2023 8:42 AM PSYCH SPECIALIST Pulse 94 03/27/2023 8:42 AM PSYCH SPECIALIST Temperature 36.2 ??C (97.2 ??F) 03/27/2023 8:42 AM CS T Respiratory Rate - - Oxygen Saturation 98% 03/27/2023 8:42 AM PSYCH SPECIALIST Inhaled Oxygen Concentration - - Weight 95.8 kg (211 lb 4.8 oz) 03/27/2023 8:42 A M PSYCH SPECIALIST Height 169.4 cm (5' 6.69) 03/27/2023 8:42 AM CS T Body Mass Index 33.4 03/27/2023 8:42 AM PSYCH SPECIALIST documented in this encounter Progress Notes * Mario Valle P.A.-C. - 03/27/2023 9:00 AM CST SUBJECTIVE CHIEF COMPLAINT / REASON FOR VISIT eHnny Rivas is a 42 y.o. female who [...] QI(U) Negative Bilirubin Negative pH 7.0 Specific [place] 1.015 Urobilinogen 0.2 Test, POCT, Urine (Lab) [...] Pathogen Panel, PCR, Feces Celiac Disease Comprehensive [facility] ondansetron ODT (ZOFRAN-ODT) 4 mg disintegrating tablet [...] medications discussed. Questions answered. Mario Valle P.A.-C. H SPECIALIST documented in this encounter Plan of Treatment [...] DISEASE COMPREHENSIVE CASCADE STAT 03/27/2023 11:44 AM PSYCH SPECIALIST Abdominal Pain TISSUE TRANSGLUTAMINASE (TTG) AB, IGA, S STAT 03/27/2023 11:44 AM PSYCH SPECIALIST URINALYSIS WITH MICROSCOPIC IF INDICATED, U STAT 03/27/2023 10:03 AM PSYCH SPECIALIST Abdominal Pain HC URINALYSIS AUTO W MICRO STAT 03/27/2023 10:03 AM PSYCH SPECIALIST BACTERIAL CULTURE, AEROBIC + SUSC, URINE STAT 03/27/2023 10:03 AM PSYCH SPECIALIST Abdominal Pain TEST, POCT, U (LAB) STAT 03/27/2023 10:03 AM PSYCH SPECIALIST Abdominal Pain CBC WITH DIFFERENTIAL, B STAT 024 9:32 AM PSYCH SPECIALIST Abdominal Pain C-REACTIVE PROTEIN (CRP), S/P STAT 03/27/2023 9:32 AM PSYCH SPECIALIST Abdominal Pain LIPASE, S/P STAT 03/27/2023 9:32 AM PSYCH SPECIALIST Abdominal Pain COMPREHENSIVE METABOLIC PANEL, S/P STAT 03/27/2023 9:32 AM PSYCH SPECIALIST Abdominal Pain documented in this encounter Results * tTG (Tissue Transglutaminase), Antibody, IgA (03/27/2023 11:44 AM PSYCH SPECIALIST) Tissue Transglutaminase Ab, IgA, S <1.2 <4.0 (Negative ) U/mL 03/30/2023 12:34 PM PSYCH SPECIALIST [facility] Blood 03/27/2023 11:4 4 AM PSYCH SPECIALIST 03/29/2023 3:34 PM PSYCH SPECIALIST Mario Valle P.A.-C. LAB BLOOD A DD-ON [facility] [address] [place] [address] [facility] [address] [place] [address] * Celiac Disease Comprehensive [place] (03/27/2023 11:44 AM PSYCH SPECIALIST) HLA-DQA1 Locus Molecular 01:03, 05 Not Applicable 03/31/2023 2:18 PM PSYCH SPECIALIST DBB8 HLA-DQB1 Locus Molecular 03:03, 06:03 Not Applicable 03/31/2023 2:18 PM PSYCH SPECIALIST DBB8 Comment: DQ Serologic Equivalent: 9, 6 Celiac Gene Pairs Present? No 03/31/2023 2:18 PM PSYCH SPECIALIST DBB8 Comment: Method: Molecular typing of [...] if ethnic specific resolution is required. CLIA: [id number] ??CLIA Plaster Lather: KLAUS MANCUSO MD,PhD Immunoglobulin A (IgA), S 122 61 - 356 mg/dL 03/29/2023 2:59 PM PSYCH SPECIALIST [facility] Celiac Disease Interpretation See Comment: Permissive genes absent and negative serology. Celiac disease extremely unlikely. 03/31/2023 10:53 PM PSYCH SPECIALIST [facility] Blood (Blood, Venous) 03/27/2023 11:44 AM PSYCH SPECIALIST 03/29/2023 8:00 AM PSYCH SPECIALIST Narrative [facility] - 03/31/2023 10:53 PM PSYCH SPECIALIST Specimen Information: Specimen ID: [id number] Specimen Type: Blood Specimen Collection Start Date: 03/27/2023 11:44 AM Specimen Received Date: 03/29/2023 ??8:00 AM Specimen ID: [id number] Specimen Type: Blood Specimen Collection Start Date: 03/27/2023 11:44 AM Specimen Received Date: 03/29/2023 ??6:42 AM Specimen ID: [id number] Specimen Type: Blood Specimen Collection Start Date: 03/27/2023 11:44 AM Specimen Received Date: 03/29/2023 ??7:40 AM Mario Valle P.A.-C. LAB BLOOD N ON ADD-ON [facility] [address] [place] [address] DBB8 [facility] [address] [place] [address] [facility] [address] [place] [address] [facility] [address] [place] [address] [place] [address] * CT Abdomen Pelvis with IV Contrast (03/27/2023 10:35 AM PSYCH SPECIALIST) Anatomical Region Laterality Modality Abdomen, Pelvis, Abdominal R ST LOS, Abdominal ARZ LOS, Abdominal FLA LOS N/A Computed Tomography 03/27/2023 10:3 9 AM PSYCH SPECIALIST Impressions 03/27/2023 11:01 AM PSYCH SPECIALIST 1. Normal-appearing appendix. 2. No acute intra-abdominal/pelvic pathology, no CT findings to explain the patient's symptoms of right lower quadrant abdominal pain. Narrative 03/27/2023 11:01 AM PSYCH SPECIALIST EXAM: CT ABDOMEN PELVIS WITH IV [...] appendix in the right lower quadrant on [id number] of series 3. No small bowel or [...] lower quadrant abdominal pain. Mario Valle P.A.-C. [facility] CT PROC EDURES * (ABNORMAL) Bacterial Culture, Aerobic + Susceptibility, Urine (03/27/2023 10:03 AM PSYCH SPECIALIST) Pathologist [facility] Urine Culture with mixed microbiota(A) 03/30/2023 6:38 AM PSYCH SPECIALIST MKTO Urine Culture PSEUDOMONAS AERUGINOSA >100,000 cfu/mL (A) 03/30/2023 6:38 AM PSYCH SPECIALIST MKTO Urine Culture KLEBSIELLA PNEUMONIAE COMPLEX 10,000-100,000 cfu/mL (A) 03/30/2023 6:38 AM PSYCH SPECIALIST MKTO Urine (Urine, Midstream) 03/27/2023 10:03 AM PSYCH SPECIALIST 03/27/2023 4:21 PM PSYCH SPECIALIST Comment:Specimen Source Site : Urine Narrative [...] P.A.-C. LAB MICROBI OLOGY - GENERAL ORDERABLES [facility] [address] [place] [address], [facility] [place] [address] [place] [address] * (ABNORMAL) Microscopic Manual (03/27/2023 10:03 AM PSYCH SPECIALIST) White Blood Cells Occ-3 /hpf 03/27/2023 10:32 AM PSYCH SPECIALIST NPRG Comment: ----REFERENCE VALUE---- Males: 0-3 Females: 0-10 Unknown: 0-10 Red Blood Cells None Seen 0 - 2 /hpf 03/27/2023 10:32 AM PSYCH SPECIALIST NPRG Squamous Cells Occ-3 /hpf 03/27/2023 10:32 AM PSYCH SPECIALIST NPRG Bacteria Present(A) None Seen 03/27/2023 10:32 AM PSYCH SPECIALIST NPRG Urine 03/27/2023 10:0 3 AM PSYCH SPECIALIST 03/27/2023 10:17 AM PSYCH SPECIALIST Mario Valle P.A.-C. LAB URINE O RDERABLES Performing Organization Address [facility] Co de Phone Number [facility] [address] [place] [address], [facility] NPRG [address] [address] * Test, POCT, Urine (Lab) (03/27/2023 10:03 AM PSYCH SPECIALIST) Test, POCT, U Negative 03/27/2023 10:25 AM PSYCH SPECIALIST NPRG Urine (Urine, Midstream) 03/27/2023 10:03 AM PSYCH SPECIALIST 03/27/2023 10:17 AM PSYCH SPECIALIST Mario Valle P.A.-C. LAB POCT OR DERABLES - DEVICE Performing Organization Address [facility] Co de Phone Number [facility] [address] [place] [address], [facility] NPRG [address] [address] * (ABNORMAL) Urinalysis with Microscopic if Indicated (03/27/2023 10:03 AM PSYCH SPECIALIST) Source Urine, Urine, Midstream 03/27/2023 10:17 AM PSYCH SPECIALIST NPR[facility] Clarity Clear Clear 03/27/2023 10:20 AM PSYCH SPECIALIST NPR[facility] Color Yellow 03/27/2023 10:20 AM PSYCH SPECIALIST NPRG Comment: ----REFERENCE VALUE---- Colorless Yellow Chasity Blood Negative Negative 03/27/2023 10:20 AM PSYCH SPECIALIST NPRG Nitrite Negative Negative 03/27/2023 10:20 AM PSYCH SPECIALIST NPR[facility] Leukocyte Esterase Small(A) Negative 03/27/2023 10:20 AM PSYCH SPECIALIST NPR[facility] Protein Negative mg/dL 03/27/2023 10:20 AM PSYCH SPECIALIST NPRG Comment: ----REFERENCE VALUE---- Negative Trace Glucose Negative Negative mg/dL 03/27/2023 10:20 AM PSYCH SPECIALIST NPR[facility] Ketones, QI(U) Negative Negative mg/dL 03/27/2023 10:20 AM PSYCH SPECIALIST NPRG Bilirubin Negative Negative 03/27/2023 10:20 AM PSYCH SPECIALIST NPR[facility] pH 7.0 5.0 - 8.0 03/27/2023 10:20 AM PSYCH SPECIALIST NPRG Specific [place] 1.015 1.001 - 1.035 03/27/2023 10:20 AM PSYCH SPECIALIST NPRG Urobilinogen 0.2 0.2 - 1.0 mg/dL 03/27/2023 10:20 AM PSYCH SPECIALIST NPRG Urine (Urine, Midstream) 03/27/2023 10:03 AM PSYCH SPECIALIST 03/27/2023 10:17 AM PSYCH SPECIALIST Mario Valle P.A.-C. LAB URINE O RDERABLES Performing Organization Address [facility]/ZIP Co de Phone Number [facility] [address] [place] [address], [facility] [address] [address] * Lipase (03/27/2023 9:32 AM PSYCH SPECIALIST) Lipase, P 36 13 - 60 U/L 03/27/2023 10:02 AM PSYCH SPECIALIST NPRG Blood (Blood, Venous) 03/27/2023 9:32 AM PSYCH SPECIALIST 03/27/2023 9:37 AM PSYCH SPECIALIST Mario Valle P.A.-C. LAB BLOOD A DD-ON Performing Organization Address [facility]/ZIP Co de Phone Number [facility] [address] [place] [address], [address] [address] * (ABNORMAL) CRP (C-Reactive Protein) (03/27/2023 9:32 AM PSYCH SPECIALIST) C-Reactive Protein (CRP), P 15.2(H) <5.0 mg/L 03/27/2023 10:02 AM PSYCH SPECIALIST NPRG Blood (Blood, Venous) 03/27/2023 9:32 AM PSYCH SPECIALIST 03/27/2023 9:37 AM PSYCH SPECIALIST Mario Valle P.A.-C. LAB BLOOD A DD-ON [facility] [address] [place] [address], [facility] NPRG [facility] [address] [place] [address] * Comprehensive Metabolic Panel (03/27/2023 9:32 AM PSYCH SPECIALIST) Potassium, P 4.0 3.6 - 5.2 mmol/L 03/27/2023 10:02 AM PSYCH SPECIALIST NPRG Sodium, P 139 135 - 145 mmol/L 03/27/2023 10:02 AM PSYCH SPECIALIST NPRG Chloride, P 105 98 - 107 mmol/L 03/27/2023 10:02 AM PSYCH SPECIALIST NPRG Bicarbonate, P 22 22 - 29 mmol/L 03/27/2023 10:02 AM PSYCH SPECIALIST NPRG Anion Gap, P 12 7 - 15 03/27/2023 10:02 AM PSYCH SPECIALIST NPR[facility] BUN (Blood Urea Nitrogen), P 8 6 - 21 mg/dL 03/27/2023 10:02 AM PSYCH SPECIALIST NPRG Creatinine 0.87 0.59 - 1.04 mg/dL 03/27/2023 10:02 AM PSYCH SPECIALIST NPRG Estimated GFR (eGFR) 86 >=60 mL/min/BS A 03/27/2023 10:02 AM PSYCH SPECIALIST NPRG Comment: Estimated GFR calculated using the 2020 CKD_EPI creatinine equation. Calcium, Total, P 9.1 8.6 - 10.0 mg/dL 03/27/2023 10:02 AM PSYCH SPECIALIST NPRG Glucose, P 93 70 - 140 mg/dL 03/27/2023 10:02 AM PSYCH SPECIALIST NPR[facility] Protein, Total, P 6.5 6.3 - 7.9 g/dL 03/27/2023 10:02 AM PSYCH SPECIALIST NPRG Albumin, P 4.0 3.5 - 5.0 g/dL 03/27/2023 10:02 AM PSYCH SPECIALIST NPR[facility] Aspartate Aminotransferase (AST), P 14 8 - 43 U/L 03/27/2023 10:02 AM PSYCH SPECIALIST NPR[facility] Alkaline Phosphatase, P 69 35 - 104 U/L 03/27/2023 10:02 AM PSYCH SPECIALIST NPRG Alanine Aminotransferase (ALT), P 30 7 - 45 U/L 03/27/2023 10:02 AM PSYCH SPECIALIST NPRG Bilirubin, Total, P 0.5 0.0 - 1.2 mg/dL 03/27/2023 10:02 AM PSYCH SPECIALIST NPRG Blood (Blood, Venous) 03/27/2023 9:32 AM PSYCH SPECIALIST 03/27/2023 9:37 AM PSYCH SPECIALIST Mario Valle P.A.-C. LAB BLOOD A DD-ON [facility] [address] [place] [address], [facility] NPRG [facility] [address] [place] [address] * CBC with Differential, Blood (03/27/2023 9:32 AM PSYCH SPECIALIST) Hemoglobin 13.9 11.6 - 15.0 g/dL 03/27/2023 9:41 AM PSYCH SPECIALIST NPRG Hematocrit 42.7 35.5 - 44.9 % 03/27/2023 9:41 AM PSYCH SPECIALIST NPRG Erythrocytes 4.95 3.92 - 5.13 x10(12)/L 03/27/2023 9:41 AM PSYCH SPECIALIST NPRG MCV 86.3 78.2 - 97.9 fL 03/27/2023 9:41 AM PSYCH SPECIALIST NPRG RBC Distrib Width 14.7 12.2 - 16.1 % 03/27/2023 9:41 AM PSYCH SPECIALIST NPR[facility] Platelet Count 278 157 - 371 x10(9)/L 03/27/2023 9:41 AM PSYCH SPECIALIST NPRG Leukocytes 7.4 3.4 - 9.6 x10(9)/L 03/27/2023 9:41 AM PSYCH SPECIALIST NPR[facility] Neutrophils 5.52 1.56 - 6.45 x10(9)/L 03/27/2023 9:41 AM PSYCH SPECIALIST NPR[facility] Lymphocytes 1.09 0.95 - 3.07 x10(9)/L 03/27/2023 9:41 AM PSYCH SPECIALIST NPR[facility] Monocytes 0.65 0.26 - 0.81 x10(9)/L 03/27/2023 9:41 AM PSYCH SPECIALIST NPR[facility] Eosinophils 0.16 0.03 - 0.48 x10(9)/L 03/27/2023 9:41 AM PSYCH SPECIALIST NPRG Basophils 0.01 0.01 - 0.08 x10(9)/L 03/27/2023 9:41 AM PSYCH SPECIALIST NPRG Blood (Blood, Venous) 03/27/2023 9:32 AM PSYCH SPECIALIST 03/27/2023 9:37 AM PSYCH SPECIALIST Mario Valle P.A.-C. LAB BLOOD A DD-ON [facility] [address] [place] [address], [facility] NPRG [facility] [address] [place] [address] documented in this encounter Visit Diagnoses Diagnosis Abdominal Pain- Primary Abdominal Pain documented in this encounter Additional Health Concerns Assessment Noted Time PHQ-9 Depression Total Score: 3 04/23/19 22 8:30 AM PSYCH SPECIALIST documented as of this encounter Care Teams Metallographic Technician Relationship Specialty Start Date End Date Elsewhere, Pcp PCP - General Internal Medicine 01/07/22 documented as of this encounter
--- OUTSIDE RECORDS SUMMARY | 2023-04-22 12:01 | XMS_ITS | Referral Summary ---
Author Name Unknown Organization [facility] Address [address] [place] [address] Care Team Providers Care It Business Process Architect Name Role Phone Elsewhere, Pcp Primary Care Provider Unavailabl e Source Comments Patient records contain information from all sites at [facility]. For routine questions regarding patient records, call [phone] during business hours, M-F 8:00 AM - 5:00 PM Central Time. Record requests for emergency care only can be directed to [phone] at any time.[facility] Encounters Date Type Department Care Team Description 03/30/2023 Orders Only Urgent Care, [facility], in [address] [phone] Mario Valle P.A.-CSona Urinary Tract Infection Site Not Specified (Primary Dx) 03/27/2023 10:14 AM CHANGE OVER - 03/27/2023 11:59 PM CHANGE OVER Hospital Encounter Department of Radiology in [address] [phone] Mario Valle P.A.-C. Abdominal Pain Discharge Disposition: Home or Self Care 03/27/2023 9:00 AM CHANGE OVER Office Visit Urgent Care, [facility], in [address] [phone] Mario Valle P.A.-CSona Abdominal Pain (Primary Dx) Discharge Disposition: Home or Self Care 03/25/2023 9:23 AM CHANGE OVER - 03/25/2023 11:59 PM [facility] Hospital Encounter Department of Radiology, [facility], in [place], [place] [address] [place] [address] Ronal Henderson M.D. Johnson, David W, M.D. Pain Left Lower Quadrant Discharge Disposition: Home or Self Care 03/12/2023 8:27 AM CHANGE OVER - 03/12/2023 9:04 AM [facility] Emergency [place] [facility] [address] [place] [phone] Wendy Calzada D.O. Dysphagia (Primary Dx); Foreign Body Swallowed Initial Discharge Disposition: Home or Self Care 03/11/2023 8:53 PM CHANGE OVER - 03/12/2023 2:30 AM [facility] Emergency Department [address] [place] [phone] Boyd Lynn M.D. Lightheadedness (Primary Dx) Discharge Disposition: Home or Self Care 03/10/2023 8:44 AM CHANGE OVER - 03/10/2023 11:30 AM [facility] Emergency [place] [facility] [address] [place] [phone] Jesus Manuel Hensley M.D. Influenza Like Illness (Primary Dx); Dehydration; Hypokalemia Discharge Disposition: Home or Self Care 03/08/2023 Nurse Triage [facility]ly [facility] Department of Family Medicine in [place], [place] [address] [facility] [place] [address] Suha Lea R.N. Med Question 03/08/2023 1:52 PM CHANGE OVER - 03/08/2023 4:01 PM [facility] Emergency [facility] Emergency Department [address] [place] [address] Ronal Henderson M.D. Pain Left Lower Quadrant (Primary Dx); Pain Left Upper Quadrant; Abdominal Pain Discharge Disposition: Home or Self Care 03/02/2023 Clinical Communication Division of Gastroenterology in [place], [place] [address] [place] [address] Thaddeus Cosme 02/15/2023 1:45 PM CHANGE OVER Office Visit Urgent Care, [facility], in [place], [place] [address] [place] [address] Lela Aguiar P.A.-C. Pain Epigastric (Primary Dx) [...] place to sleep or slept in a skilled nursing (including now)? No 04/03/2022 Depression Answer Date [...] Comments Blood Pressure 117/81 03/27/2023 8:42 AM CHANGE OVER Pulse 94 03/27/2023 8:42 AM CHANGE OVER Temperature 36.2 ??C (97.2 ??F) 03/27/2023 8:42 AM CS T Respiratory Rate 16 03/12/2023 8:34 AM CHANGE OVER Oxygen Saturation 98% 03/27/2023 8:42 AM CHANGE OVER Inhaled Oxygen Concentration - - Weight 95.8 kg (211 lb 4.8 oz) 03/27/2023 8:42 A M CHANGE OVER Height 169.4 cm (5' 6.69) 03/27/2023 8:42 AM CS T Body Mass Index 33.4 03/27/2023 8:42 AM CHANGE OVER Plan of Treatment Not on file Procedures Procedure Name Priority Date/Time Associated Diagnosis Comments TISSUE TRANSGLUTAMINASE (TTG) AB, IGA, S STAT 03/27/2023 11:44 AM CHANGE OVER CELIAC DISEASE COMPREHENSIVE CASCADE STAT 03/27/2023 11:44 AM CHANGE OVER Abdominal Pain CT ABDOMEN PELVIS WITH IV CONTRAST RAD - Routine (most inpatients and all outpatients) 03/27/2023 10:35 AM CHANGE OVER Abdominal Pain TEST, POCT, U (LAB) STAT 03/27/2023 10:03 AM CHANGE OVER Abdominal Pain HC URINALYSIS AUTO W MICRO STAT 03/27/2023 10:03 AM CHANGE OVER URINALYSIS WITH MICROSCOPIC IF INDICATED, U STAT 03/27/2023 10:03 AM CHANGE OVER Abdominal Pain BACTERIAL CULTURE, AEROBIC + SUSC, URINE STAT 03/27/2023 10:03 AM CHANGE OVER Abdominal Pain LIPASE, S/P STAT 03/27/2023 9:32 AM CHANGE OVER Abdominal Pain C-REACTIVE PROTEIN (CRP), S/P STAT 03/27/2023 9:32 AM CHANGE OVER Abdominal Pain COMPREHENSIVE METABOLIC PANEL, S/P STAT 03/27/2023 9:32 AM CHANGE OVER Abdominal Pain CBC WITH DIFFERENTIAL, B STAT 03/27/2023 9:32 AM CHANGE OVER Abdominal Pain FL ESOPHAGRAM SINGLE CONTRAST RAD - Routine (most inpatients and all outpatients) 03/25/2023 10:08 AM CHANGE OVER Pain Left Lower Quadrant TROPONIN T, 2H/6H, 5TH GEN, P Timed 03/12/2023 12:41 AM CHANGE OVER TROPONIN T, BASELINE, 5TH GEN, P STAT 03/11/2023 10:57 PM CHANGE OVER BASIC METABOLIC PANEL, S/P STAT 03/11/2023 10:57 PM CHANGE OVER CBC WITH DIFFERENTIAL, B STAT 03/11/2023 10:57 PM CHANGE OVER ECG STAT 03/10/2023 10:21 AM CHANGE OVER DX CHEST AP OR PA AND LATERAL 2 VIEWS RAD - Semiurgent (Fast; most ED patients; some inpatients) 03/10/2023 9:37 AM CHANGE OVER INFLUENZA A, B, RSV, PCR, POCT STAT 03/10/2023 8:49 AM CHANGE OVER SARS CORONAVIRUS 2, PCR RAPID, V STAT 03/10/2023 8:49 AM CHANGE OVER CBC WITH DIFFERENTIAL, B STAT 03/10/2023 8:39 AM CHANGE OVER BASIC METABOLIC PANEL, S/P STAT 03/10/2023 8:39 AM CHANGE OVER LIPASE, S/P STAT 03/08/2023 2:50 PM CHANGE OVER CBC WITH DIFFERENTIAL, B STAT 03/08/2023 2:50 PM CHANGE OVER COMPREHENSIVE METABOLIC PANEL, S/P STAT 03/08/2023 2:50 PM CHANGE OVER URINALYSIS WITH MICROSCOPIC STAT 03/08/2023 2:43 PM CHANGE OVER BASIC METABOLIC PANEL, S/P STAT 02/15/2023 2:35 PM CHANGE OVER Pain Epigastric CBC WITH DIFFERENTIAL, B STAT 02/15/2023 2:35 PM CHANGE OVER Pain Epigastric from Last 3 Months Results * Celiac Disease Comprehensive Lawrence (03/27/2023 11:44 AM CHANGE OVER) HLA-DQA1 Locus Molecular 01:03, 05 Not Applicable 03/31/2023 2:18 PM CHANGE OVER DBB8 HLA-DQB1 Locus Molecular 03:03, 06:03 Not Applicable 03/31/2023 2:18 PM CHANGE OVER DBB8 Comment: DQ Serologic Equivalent: 9, 6 Celiac Gene Pairs Present? No 03/31/2023 2:18 PM CHANGE OVER DBB8 Comment: Method: Molecular typing of HLA antigens performed using reverse SSOP and/or SSP methods, reported as serological equivalents and low to medium resolution molecular values. Based on the catalog of common, intermediate, and well-documented alleles in the world population (CWID 3.0 Yudi Trevino.hilton, HLA. 2020:516-531), certain intermediate or common alleles in some ethnicities may not be resolved. Kindly contact laboratory if ethnic specific resolution is required. CLIA: [id number] ??CLIA Feather Curling Machine Operator: KLAUS MANCUSO MD,PhD Immunoglobulin A (IgA), S 122 61 - 356 mg/dL 03/29/2023 2:59 PM CHANGE OVER [facility] Celiac Disease Interpretation See Comment: Permissive genes absent and negative serology. Celiac disease extremely unlikely. 03/31/2023 10:53 PM CHANGE OVER [facility] Blood (Blood, Venous) 03/27/2023 11:44 AM CHANGE OVER 03/29/2023 8:00 AM CHANGE OVER Narrative [facility] - 03/31/2023 10:53 PM CHANGE OVER Specimen Information: Specimen ID: [id number] Specimen Type: Blood Specimen Collection Start Date: 03/27/2023 11:44 AM Specimen Received Date: 03/29/2023 ??8:00 AM Specimen ID: [id number] Specimen Type: Blood Specimen Collection Start Date: 03/27/2023 11:44 AM Specimen Received Date: 03/29/2023 ??6:42 AM Specimen ID: [id number] Specimen Type: Blood Specimen Collection Start Date: 03/27/2023 11:44 AM Specimen Received Date: 03/29/2023 ??7:40 AM Mario Valle P.A.-C. LAB BLOOD N ON ADD-ON [facility] [address] [place] [address] DBB8 [facility] [address] [place] [address] [facility] [address] [place] [address] [facility] [address] [place] [address] [place] [address] * tTG (Tissue Transglutaminase), Antibody, IgA (03/27/2023 11:44 AM CHANGE OVER) Tissue Transglutaminase Ab, IgA, S <1.2 <4.0 (Negative ) U/mL 03/30/2023 12:34 PM CHANGE OVER [facility] Blood 03/27/2023 11:4 4 AM CHANGE OVER 03/29/2023 3:34 PM CHANGE OVER Mario Valle P.A.-C. LAB BLOOD A DD-ON Performing Organization Address City/State/[facility] Co de Phone Number [facility] [address] [place] [address] [facility] [address] [place] [address] * CT Abdomen Pelvis with IV Contrast (03/27/2023 10:35 AM CHANGE OVER) Anatomical Region Laterality Modality Abdomen, Pelvis, Abdominal R ST LOS, Abdominal ARZ LOS, Abdominal FLA LOS N/A Computed Tomography 03/27/2023 10:3 9 AM CHANGE OVER Impressions 03/27/2023 11:01 AM CHANGE OVER 1. Normal-appearing appendix. 2. No acute intra-abdominal/pelvic pathology, no CT findings to explain the patient's symptoms of right lower quadrant abdominal pain. Narrative 03/27/2023 11:01 AM CHANGE OVER EXAM: CT ABDOMEN PELVIS WITH IV CONTRAST [...] appendix in the right lower quadrant on [id number] of series 3. No small bowel or [...] with Microscopic if Indicated (03/27/2023 10:03 AM CHANGE OVER) Source Urine, Urine, Midstream 03/27/2023 10:17 AM CHANGE OVER NPRG Clarity Clear Clear 03/27/2023 10:20 AM CHANGE OVER NPRG Color Yellow 03/27/2023 10:20 AM CHANGE OVER NPRG Comment: ----REFERENCE VALUE---- Colorless Yellow Chasity Blood Negative Negative 03/27/2023 10:20 AM CHANGE OVER NPRG Nitrite Negative Negative 03/27/2023 10:20 AM CHANGE OVER NPRG Leukocyte Esterase Small(A) Negative 03/27/2023 10:20 AM CHANGE OVER NPRG Protein Negative mg/dL 03/27/2023 10:20 AM CHANGE OVER NPRG Comment: ----REFERENCE VALUE---- Negative Trace Glucose Negative Negative mg/dL 03/27/2023 10:20 AM CHANGE OVER NPRG Ketones, QI(U) Negative Negative mg/dL 03/27/2023 10:20 AM CHANGE OVER NPRG Bilirubin Negative Negative 03/27/2023 10:20 AM CHANGE OVER NPRG pH 7.0 5.0 - 8.0 03/27/2023 10:20 AM CHANGE OVER NPRG Specific Higgins 1.015 1.001 - 1.035 03/27/2023 10:20 AM CHANGE OVER NPRG Urobilinogen 0.2 0.2 - 1.0 mg/dL 03/27/2023 10:20 AM CHANGE OVER NPRG Urine (Urine, Midstream) 03/27/2023 10:03 AM CHANGE OVER 03/27/2023 10:17 AM CHANGE OVER Mario Valle P.A.-C. LAB URINE O RDERABLES [facility] [address] [place] [address], [facility] NPRG [place] [address] [place] [address] * (ABNORMAL) Microscopic Manual (03/27/2023 10:03 AM CHANGE OVER) White Blood Cells Occ-3 /hpf 03/27/2023 10:32 AM CHANGE OVER NPRG Comment: ----REFERENCE VALUE---- Males: 0-3 Females: 0-10 Unknown: 0-10 Red Blood Cells None Seen 0 - 2 /hpf 03/27/2023 10:32 AM CHANGE OVER NPRG Squamous Cells Occ-3 /hpf 03/27/2023 10:32 AM CHANGE OVER NPRG Bacteria Present(A) None Seen 03/27/2023 10:32 AM CHANGE OVER NPRG Urine 03/27/2023 10:0 3 AM CHANGE OVER 03/27/2023 10:17 AM CHANGE OVER Mario Valle P.A.-C. LAB URINE O RDERABLES Performing Organization Address City/[facility] Co de Phone Number [facility] [address] [place] [address], [facility] [place] [address] [place] [address] * (ABNORMAL) Bacterial Culture, Aerobic + Susceptibility, Urine (03/27/2023 10:03 AM CHANGE OVER) Urine Culture with mixed microbiota(A) 03/30/2023 6:38 AM CHANGE OVER MKTO Urine Culture PSEUDOMONAS AERUGINOSA >100,000 cfu/mL (A) 03/30/2023 6:38 AM CHANGE OVER MKTO Urine Culture KLEBSIELLA PNEUMONIAE COMPLEX 10,000-100,000 cfu/mL (A) 03/30/2023 6:38 AM CHANGE OVER MKTO Urine (Urine, Midstream) 03/27/2023 10:03 AM CHANGE OVER 03/27/2023 4:21 PM CHANGE OVER Comment:Specimen Source Site : Urine Narrative Organism [...] P.A.-C. LAB MICROBI OLOGY - GENERAL ORDERABLES [facility] [address] [place] [address], [facility] MKTO [facility] [place] [address] [place] [address] * Test, POCT, Urine (Lab) (03/27/2023 10:03 AM CHANGE OVER) Test, POCT, U Negative 03/27/2023 10:25 AM CHANGE OVER NPRG Urine (Urine, Midstream) 03/27/2023 10:03 AM CHANGE OVER 03/27/2023 10:17 AM CHANGE OVER Mario Valle P.A.-C. LAB POCT OR DERABLES - DEVICE [facility] [address] [place] [address], [facility] NPRG [facility] [address] [place] [address] * CBC with Differential, Blood (03/27/2023 9:32 AM CHANGE OVER) Only the most recent of5 resultswithin the time period is included. Hemoglobin 13.9 11.6 - 15.0 g/dL 03/27/2023 9:41 AM CHANGE OVER NPRG Hematocrit 42.7 35.5 - 44.9 % 03/27/2023 9:41 AM CHANGE OVER NPRG Erythrocytes 4.95 3.92 - 5.13 x10(12)/L 03/27/2023 9:41 AM CHANGE OVER NPRG MCV 86.3 78.2 - 97.9 fL 03/27/2023 9:41 AM CHANGE OVER NPRG RBC Distrib Width 14.7 12.2 - 16.1 % 03/27/2023 9:41 AM CHANGE OVER NPRG Platelet Count 278 157 - 371 x10(9)/L 03/27/2023 9:41 AM CHANGE OVER NPRG Leukocytes 7.4 3.4 - 9.6 x10(9)/L 03/27/2023 9:41 AM CHANGE OVER NPRG Neutrophils 5.52 1.56 - 6.45 x10(9)/L 03/27/2023 9:41 AM CHANGE OVER NPRG Lymphocytes 1.09 0.95 - 3.07 x10(9)/L 03/27/2023 9:41 AM CHANGE OVER NPRG Monocytes 0.65 0.26 - 0.81 x10(9)/L 03/27/2023 9:41 AM CHANGE OVER NPRG Eosinophils 0.16 0.03 - 0.48 x10(9)/L 03/27/2023 9:41 AM CHANGE OVER NPRG Basophils 0.01 0.01 - 0.08 x10(9)/L 03/27/2023 9:41 AM CHANGE OVER NPRG Blood (Blood, Venous) 03/27/2023 9:32 AM CHANGE OVER 03/27/2023 9:37 AM CHANGE OVER Mario Valle P.A.-C. LAB BLOOD A DD-ON Performing Organization Address City/[facility]/ZIP Co de Phone Number [facility] [address] [place] [address], [place] [address] [place] [address] * (ABNORMAL) CRP (C-Reactive Protein) (03/27/2023 9:32 AM CHANGE OVER) C-Reactive Protein (CRP), P 15.2(H) <5.0 mg/L 03/27/2023 10:02 AM CHANGE OVER NPRG Blood (Blood, Venous) 03/27/2023 9:32 AM CHANGE OVER 03/27/2023 9:37 AM CHANGE OVER Mario Valle P.A.-C. LAB BLOOD A DD-ON [facility] [address] [place] [address], [place] [address] [place] [address] * Lipase (03/27/2023 9:32 AM CHANGE OVER) Only the most recent of2 resultswithin the time period is included. Lipase, P 36 13 - 60 U/L 03/27/2023 10:02 AM CHANGE OVER NPRG Blood (Blood, Venous) 03/27/2023 9:32 AM CHANGE OVER 03/27/2023 9:37 AM CHANGE OVER Mario Valle P.A.-C. LAB BLOOD A DD-ON [facility] [address] [place] [address], [facility] NPRG [facility] [address] [place] [address] * Comprehensive Metabolic Panel (03/27/2023 9:32 AM CHANGE OVER) Only the most recent of2 resultswithin the time period is included. Potassium, P 4.0 3.6 - 5.2 mmol/L 03/27/2023 10:02 AM CHANGE OVER NPRG Sodium, P 139 135 - 145 mmol/L 03/27/2023 10:02 AM CHANGE OVER NPRG Chloride, P 105 98 - 107 mmol/L 03/27/2023 10:02 AM CHANGE OVER NPRG Bicarbonate, P 22 22 - 29 mmol/L 03/27/2023 10:02 AM CHANGE OVER NPRG Anion Gap, P 12 7 - 15 03/27/2023 10:02 AM CHANGE OVER NPRG BUN (Blood Urea Nitrogen), P 8 6 - 21 mg/dL 03/27/2023 10:02 AM CHANGE OVER NPRG Creatinine 0.87 0.59 - 1.04 mg/dL 03/27/2023 10:02 AM CHANGE OVER NPRG Estimated GFR (eGFR) 86 >=60 mL/min/BS A 03/27/2023 10:02 AM CHANGE OVER NPRG Comment: Estimated GFR calculated using the 2020 CKD_EPI creatinine equation. Calcium, Total, P 9.1 8.6 - 10.0 mg/dL 03/27/2023 10:02 AM CHANGE OVER NPRG Glucose, P 93 70 - 140 mg/dL 03/27/2023 10:02 AM CHANGE OVER NPRG Protein, Total, P 6.5 6.3 - 7.9 g/dL 03/27/2023 10:02 AM CHANGE OVER NPRG Albumin, P 4.0 3.5 - 5.0 g/dL 03/27/2023 10:02 AM CHANGE OVER NPRG Aspartate Aminotransferase (AST), P 14 8 - 43 U/L 03/27/2023 10:02 AM CHANGE OVER NPRG Alkaline Phosphatase, P 69 35 - 104 U/L 03/27/2023 10:02 AM CHANGE OVER NPRG Alanine Aminotransferase (ALT), P 30 7 - 45 U/L 03/27/2023 10:02 AM CHANGE OVER NPRG Bilirubin, Total, P 0.5 0.0 - 1.2 mg/dL 03/27/2023 10:02 AM CHANGE OVER NPRG Blood (Blood, Venous) 03/27/2023 9:32 AM CHANGE OVER 03/27/2023 9:37 AM CHANGE OVER Mario Valle P.A.-C. LAB BLOOD A DD-ON [facility] [address] [place] [address], [facility] NPRG [facility] [address] [place] [address] * FL Esophagram Single Contrast (03/25/2023 10:08 AM CHANGE OVER) Anatomical Region Laterality Modality Gastro Intestinal, Abdominal RST LOS, Abdominal ARZ LOS, Abdominal FLA LOS N/A Digital Radiography Impressions 03/25/2023 10:13 AM CHANGE OVER Small sliding-type hiatal hernia. No reflux observed. Narrative 03/25/2023 10:13 AM CHANGE OVER EXAM: FL ESOPHAGRAM SINGLE CONTRAST FINDINGS: Normal [...] reflux observed. Ronal Henderson M.D. IMG FLUOROSCOPY MD OCEDURES * Troponin T, 2h/6h, 5th Gen (03/12/2023 12:41 AM CHANGE OVER) Troponin T, 2 hr, 5th gen <6 <=10 ng/L 03/12/2023 1:03 AM CHANGE OVER NPRG 2H Delta 0 ng/L 03/12/2023 1:03 AM CHANGE OVER NPRG 2H Delta Interp Not Changing 03/12/2023 1:03 AM CHANGE OVER NPRG Troponin T, 6 hr, 5th gen CANCELED ng/L 03/12/2023 1:03 AM CHANGE OVER NPRG Comment:Result canceled by t he ancillary. 6H Delta CANCELED ng/L 03/12/2023 1:03 AM CHANGE OVER NPRG Comment:Result canceled by t he ancillary. 6H Delta % CANCELED % 03/12/2023 1:03 AM CHANGE OVER NPRG Comment:Result canceled by t he ancillary. Blood (Blood, Venous) 03/12/2023 12:41 AM CHANGE OVER 03/12/2023 12:43 AM CHANGE OVER Narrative [facility] - 03/12/2023 1:03 AM CHANGE OVER Specimen Information: Specimen ID: [id number] Specimen Type: Blood Specimen Collection Start Date: 03/12/2023 12:41 AM Specimen Received Date: 03/12/2023 12:43 AM Specimen ID: [id number] Specimen Type: Blood Boyd Lynn M.D. LAB BLOOD TROPONIN [facility] [address] [place] [address], [facility] NPRG [facility] [address] [place] [address] * Troponin T, Baseline, 5th gen (03/11/2023 10:57 PM CHANGE OVER) Troponin T, Baseline, 5th gen <6 <=10 ng/L 03/11/2023 11:50 PM CHANGE OVER NPRG Blood (Blood, Venous) 03/11/2023 10:57 PM CHANGE OVER 03/11/2023 11:01 PM CHANGE OVER Boyd Lynn M.D. LAB BLOOD TROPONIN [facility] [address] [place] [address], [facility] NPRG [facility] [address] [place] [address] * Basic Metabolic Panel (03/11/2023 10:57 PM CHANGE OVER) Only the most recent of3 resultswithin the time period is included. Potassium, P 4.0 3.6 - 5.2 mmol/L 03/11/2023 11:25 PM CHANGE OVER NPRG Sodium, P 139 135 - 145 mmol/L 03/11/2023 11:25 PM CHANGE OVER NPRG Chloride, P 104 98 - 107 mmol/L 03/11/2023 11:25 PM CHANGE OVER NPRG Bicarbonate, P 23 22 - 29 mmol/L 03/11/2023 11:25 PM CHANGE OVER NPRG Anion Gap, P 12 7 - 15 03/11/2023 11:25 PM CHANGE OVER NPRG BUN (Blood Urea Nitrogen), P 9 6 - 21 mg/dL 03/11/2023 11:25 PM CHANGE OVER NPRG Creatinine 0.83 0.59 - 1.04 mg/dL 03/11/2023 11:25 PM CHANGE OVER NPRG Estimated GFR (eGFR) >90 >=60 mL/min/BSA 03/11/2023 11:25 PM CHANGE OVER NPRG Comment: Estimated GFR calculated using the 2020 CKD_EPI creatinine equation. Calcium, Total, P 9.6 8.6 - 10.0 mg/dL 03/11/2023 11:25 PM CHANGE OVER NPRG Glucose, P 98 70 - 140 mg/dL 03/11/2023 11:25 PM CHANGE OVER NPRG Blood (Blood, Venous) 03/11/2023 10:57 PM CHANGE OVER 03/11/2023 11:01 PM CHANGE OVER Boyd Lynn M.D. LAB BLOOD ADD-ON [facility] [address] [place] [address], [place] NPRG [facility] [address] [place] [address] * ECG 12 Lead (03/10/2023 10:21 AM CHANGE OVER) Ventricular Rate ECG/Min 73 BPM MUSE MD Interval 132 ms MUSE QRSD Interval 90 ms MUSE QT Interval 416 ms MUSE QTC Interval 458 ms MUSE P [place] 66 degrees MUSE R [place] 14 degrees MUSE T Wave [place] -1 degrees MUSE 03/10/2023 10:2 1 AM CHANGE OVER 03/10/2023 10:42 AM CHANGE OVER Impressions MUSE - 03/10/2023 10:40 AM CHANGE OVER Normal sinus rhythm Nonspecific ST and T wave abnormality When compared with ECG of 07-OCT-2022 12:07, MD interval has increased Reviewed by WHIT Plummer Narrative Procedure Note Daquan Hess M.D., M.P.H. - 03/10/2023 IMPRESSION: Normal sinus rhythm Nonspecific ST and T wave abnormality When compared with ECG of 07-OCT-2022 12:07, MD interval has increased Reviewed by WHIT Plummer Jesus Manuel Hensley M.D. ECG ORDERABLES MUSE NA * DX Chest AP or PA and Lateral 2 Views (03/10/2023 9:37 AM CHANGE OVER) Anatomical Region Laterality Modality Chest, Thoracic RST LOS, Tho racic ARZ LOS, Thoracic FLA LOS N/A Digital Radiography Impressions 03/10/2023 9:38 AM CHANGE OVER Stable chest, no acute cardiopulmonary disease. Narrative 03/10/2023 9:38 AM CHANGE OVER EXAM: DX CHEST AP OR PA AND [...] 2, PCR Rapid Symptomatic (03/10/2023 8:49 AM CHANGE OVER) [facility] SARS CoV-2, PCR, Rapid, V Undetected Undetected 03/10/2023 9:12 AM CHANGE OVER NPRG Comment: ----ADDITIONAL INFORMATION---- This RT-PCR test was performed using the [employer] SARS-CoV-2 and Influenza A/B Reagent assay from [employer], which has received Emergency Use Authorization(EUA) by the U.S. Food and Drug Administration. Fact sheets for this Emergency Use Authorization (EUA) assay can be found at the following links: For Healthcare Providers: https://www.fda.gov/media/774068/download For Patients: https://www.fda.gov/media/505043/download SARS Coronavirus 2, Source, Rapid Swab, Nasopharynx 03/10/2023 8:49 AM CHANGE OVER NPRG Swab (Nasopharynx) 03/10/2023 8:49 AM CHANGE OVER 03/10/2023 8:49 AM CHANGE OVER Jesus Manuel Hensley M.D. LAB MICROBIOLOGY - G ENERAL ORDERABLES [facility] [address] [place] [address], [facility] NPRG [facility] [address] [place] [address] * Influenza A/B and RSV, PCR, Point of Care (03/10/2023 8:49 AM CHANGE OVER) Pathologist [facility] Influenza A, POCT Negative Negative 03/10/2023 8:53 AM CHANGE OVER NPRG Influenza B, POCT Negative Negative 03/10/2023 8:53 AM CHANGE OVER NPRG Resp Syncytial Virus, POCT Negative Negative 03/10/2023 8:53 AM CHANGE OVER NPRG Swab (Nasopharynx) 03/10/2023 8:49 AM CHANGE OVER 03/10/2023 8:49 AM CHANGE OVER Jesus Manuel Hensley M.D. LAB POCT ORDERABLES - DEVICE [facility] [address] [place] [address], [facility] NPRG [facility] [address] [place] [address] * (ABNORMAL) Urinalysis with Microscopic: Urine, Midstream (03/08/2023 2:43 PM CHANGE OVER) Pathologist [facility] Source Urine, Urine, Midstream 03/08/2023 3:00 PM CHANGE OVER MKTO Clarity Clear Clear 03/08/2023 3:00 PM CHANGE OVER MKTO Color Yellow 03/08/2023 3:00 PM CHANGE OVER MKTO Comment: ----REFERENCE VALUE---- Colorless Yellow Chasity Blood Negative Negative 03/08/2023 3:00 PM CHANGE OVER MKTO Nitrite Negative Negative 03/08/2023 3:00 PM CHANGE OVER MKTO Leukocyte Esterase Trace(A) Negative 03/08/2023 3:00 PM CHANGE OVER MKTO Protein Negative mg/dL 03/08/2023 3:00 PM CHANGE OVER MKTO Comment: ----REFERENCE VALUE---- Negative Trace Glucose Negative Negative mg/dL 03/08/2023 3:00 PM CHANGE OVER MKTO Ketone Negative Negative mg/dL 03/08/2023 3:00 PM CHANGE OVER MKTO Bilirubin Negative Negative 03/08/2023 3:00 PM CHANGE OVER MKTO pH 8.5(A) 5.0 - 8.0 03/08/2023 3:00 PM CHANGE OVER MKTO Specific Higgins 1.007 1.001 - 1.035 03/08/2023 3:00 PM CHANGE OVER MKTO Urobilinogen 0.2 0.2 - 1.0 mg/dL 03/08/2023 3:00 PM CHANGE OVER MKTO White Blood Cells Occ-3 /hpf 03/08/2023 3:03 PM CHANGE OVER MKTO Comment: ----REFERENCE VALUE---- Males: 0-3 Females: 0-10 Unknown: 0-10 Red Blood Cells None Seen 0 - 2 /hpf 3:03 PM CHANGE OVER MKTO Squamous Cells Occ-3 /hpf 03/08/2023 3:03 PM CHANGE OVER MKTO Urine (Urine, Midstream) 03/08/2023 2:43 PM CHANGE OVER 03/08/2023 2:56 PM CHANGE OVER Ronal Henderson M.D. LAB URINE ORDERABL ES [facility] [address] [place] [address], [facility] MKTO [facility] [place] [address] [place] [phone] from Last 3 Months Care Teams It Business Process Architect Relationship Specialty Start Date End Date Elsewhere, Pcp PCP - General Internal Medicine 01/07/22
--- OUTSIDE RECORDS SUMMARY | 2023-04-22 12:01 | XMS_ITS | Encounter Summary ---
Author Name Unknown Organization [facility] Address [address] [place] [address] Care Team Providers Care Bank Representative Name Role Phone Elsewhere, Pcp Primary Care Provider Unavailabl e Reason for Referral * Outpatient (Routine) - Closed Specialty Diagnoses / Procedures Referred By Polinaac t Referred To Contact Diagnoses Pain Left Lower Quadrant Procedures FL Esophagram Single Contrast Ronal Hednerson M.D. [address] [place] [phone] [facility] Referral ID Status Reason Start Date Expiration Date Visits Re quested Visits Authorized [id number] Closed 03/08/2023 03/07/2024 1 1 OLOGY TECHNOLOGIST Reason for Visit * Outpatient (Routine) - Closed Specialty Diagnoses / Procedures Referred By Tania t Referred To Contact Diagnoses Pain Left Lower Quadrant Procedures FL Esophagram Single Contrast Ronal Henderson M.D. [address] [place] [phone] [facility] Referral ID Status Reason Start Date Expiration Date Visits Re quested Visits Authorized [id number] Closed 03/08/2023 03/07/2024 1 1 Encounter Details Date Type Department Care Team (Latest Contact Info) Description 03/25/2023 9:23 AM NEUROLOGY TECHNOLOGIST - 03/25/2023 11:59 PM NEUROLOGY TECHNOLOGIST Hospital Encounter Department of Radiology, [facility], in [place], [place] [address] [place] [phone] Ronal Henderson M.D. [address] [place] [phone] Paul Car M.D. [address] [place] [address] Pain Left Lower Quadrant Discharge [...] often do you attend chur ch or congregation services? 1 to 4 times per year 04/03/2022 Do you belong to any clubs o r organizations such as yazidism groups, unions, fraternal or athletic groups, or [...] Date Recorded PHQ-2 Score 0 12/10/2021 [facility]at ional [facility] - Occupational [...] inpatients and all outpatients) 03/25/2023 10:08 AM NEUROLOGY TECHNOLOGIST Pain Left Lower Quadrant documented in this encounter Results * FL Esophagram Single Contrast (03/25/2023 10:08 AM NEUROLOGY TECHNOLOGIST) Anatomical Region Laterality Modality Gastro Intestinal, Abdominal RST LOS, Abdominal ARZ LOS, Abdominal FLA LOS N/A Digital Radiography Impressions 03/25/2023 10:13 AM NEUROLOGY TECHNOLOGIST Small sliding-type hiatal hernia. No reflux observed. Narrative 03/25/2023 10:13 AM NEUROLOGY TECHNOLOGIST EXAM: FL ESOPHAGRAM SINGLE CONTRAST FINDINGS: Normal [...] reflux observed. Ronal Henderson M.D. IMMadhav FLUOROSCOPY [place] OCEDURES documented in this encounter Visit Diagnoses [...] For 1 dose Given 03/25/2023 10:11 AM NEUROLOGY TECHNOLOGIST 60 mL barium 98 % oral powder for suspension 90 mL (E-Z-HD) 90 mL, oral, Once in imaging, contrast, Starting on Belinda 03/25/23 at 1010, For 1 dose Given 03/25/2023 10:12 AM NEUROLOGY TECHNOLOGIST 90 mL documented in this encounter Additional Health Concerns Assessment Noted Time PHQ-9 Depression Total Score: 3 04/23/19 22 8:30 AM NEUROLOGY TECHNOLOGIST documented as of this encounter Care Teams Bank Representative Relationship Specialty Start Date End Date Elsewhere, Pcp PCP - General Internal Medicine 01/07/22 documented as of this encounter
--- OUTSIDE RECORDS SUMMARY | 2023-04-22 12:01 | XMS_ITS | Encounter Summary ---
Author Name Unknown Organization [facility] Address [address] [place] [address] Care Team Providers Care Youth Career Specialist Name Role Phone Elsewhere, Pcp Primary Care [...] st Contact Info) Description 03/12/2023 8:27 AM WAITER/WAITRESS CLUB - 03/12/2023 9:04 AM [facility] [place] [facility] [address] [place] [phone] Wendy Calzada D.O. [address] [place] [phone] Dysphagia (Primary Dx); Foreign Body Swallowed Initial [...] How often do you attend chur or moravian services? 1 to 4 times per year [...] Answer Date Recorded PHQ-2 Score 0 12/10/2021 [facility] of Occupat ional Health - Occupational Stress [...] Comments Blood Pressure 157/83 03/12/2023 8:30 AM WAITER/WAITRESS CLUB Pulse 83 03/12/2023 8:45 AM WAITER/WAITRESS CLUB Temperature 36.4 ??C (97.5 ??F) 03/12/2023 8:34 AM CS T Respiratory Rate 16 03/12/2023 8:34 AM WAITER/WAITRESS CLUB Oxygen Saturation 100% 03/12/2023 8:45 AM WAITER/WAITRESS CLUB Inhaled Oxygen Concentration - - Weight 96 kg (211 lb 10.3 oz) 03/12/2023 8:34 AM WAITER/WAITRESS CLUB Height - - Body Mass Index 34.16 03/10/2023 8:53 AM WAITER/WAITRESS CLUB documented in this encounter Discharge Instructions * Discharge Instructions* Wendy Calzada D.O. - 03/12/2023 8:58 AM WAITER/WAITRESS CLUB It is okay to sip on warm/cold water for your discomfort. Take Tylenol every 6 hours as needed. If symptoms are still present on Wednesday, you can follow up with Gastroenterology to discuss endoscopy. ER/WAITRESS CLUB documented in this encounter Medications at Time [...] mL susp (45 mL oral Given 03/12/23 0809) MDM: IMPRESSION AND PLAN Patient presents with [...] and Hepatology, Internal Medicine [facility], [address] [phone] Next Steps: Follow up Instructions: As needed Becky Resendez Sarah, D.O. 03/13/23 1600 ER/WAITRESS CLUB documented in this encounter Plan of Treatment [...] prior to administration Given 03/12/2023 8:44 AM WAITER/WAITRESS CLUB 45 mL documented in this encounter Active and Recently Administered Medications Times are shown in WAITER/WAITRESS CLUB. Scheduled Medication Order 03/10/2023 03/11/2023 03/12/2023 lidocaine viscous 2 % 15 mL, alum-mag hydroxide-simeth 30 mL susp (COMPLETED) 45 mL, oral, Once, On Wed03/12/23 at 0840, For 1 dose, Mix ingredients prior to administration 0844 (Given - Provid er: Kezia Du R.N.) documented in this encounter Additional Health Concerns Assessment Noted Time PHQ-9 Depression Total Score: 3 04/23/19 8:30 AM WAITER/WAITRESS CLUB documented as of this encounter Care Teams Youth Career Specialist Relationship Specialty Start Date End Date Elsewhere, Pcp PCP - General Internal Medicine 01/07/22 documented as of this encounter
--- OUTSIDE RECORDS SUMMARY | 2023-04-22 12:02 | XMS_ITS | Encounter Summary ---
Author Name Unknown Organization [facility] Address [address] [place] [address] Care Team Providers Care Pot Lining Supervisor Name Role Phone Elsewhere, Pcp Primary Care Provider Unavailabl e Reason for Visit * Reason Comments Abdominal Pain Pt presents with per sistent abdominal pain, bloating and constipation. Taking miralx and today had MOM with no relief. Encounter Details Date Type Department Care Team ([facility] st Contact Info) Description 08/28/2022 10:56 PM CDT - 08/29/2022 1:02 AM CDT Emergency [facility] [place] [facility] [address] [place] [phone] Jerome Patterson P.A.-C. [address] [place] [phone] Constipation (Primary Dx) Discharge Disposition: Home or [...] How often do you attend chur or islam services? 1 to 4 times per year 04/03/2022 Do you belong to any clubs o r organizations such as advent groups, unions, fraternal or athletic groups, or [...] PHQ-2 Score 0 12/10/2021 [facility] [place] of Occupat ional Health - Occupational Stress [...] Total Score: 3 04/23/19 22 8:30 AM WELDER HELPER documented as of this encounter Care Teams Pot Lining Supervisor Relationship Specialty Start Date End Date Elsewhere, Pcp PCP - General Internal Medicine 01/07/22 documented as of this encounter
--- OUTSIDE RECORDS SUMMARY | 2023-04-22 12:02 | XMS_ITS | Encounter Summary ---
Author Name Unknown Organization [facility] Address [address] [place] [address] Care Team Providers Care Reprint Sorter Name Role Phone Elsewhere, Pcp Primary Care Provider Unavailabl e Reason for Visit * Reason Comments Chest Pain Pt presents to ED wi th mid/left chest pain that began last night. Fibromyalgia hx but reports this new pain feels different. Encounter Details Date Type Department Care Team ([facility] st Contact Info) Description 10/07/2022 12:08 PM CDT - 10/07/2022 2:48 PM CDT Emergency [place] [facility] [address] [place] [phone] Danny Boogie M.D. [address] [place] [phone] Pain Chest Atypical (Primary Dx) Discharge Disposition: [...] How often do you attend chur or lutheran services? 1 to 4 times per year 04/03/2022 Do you belong to any clubs o r organizations such as restorationism groups, unions, fraternal or athletic groups, or [...] Answer Date Recorded PHQ-2 Score 0 12/10/2021 [facility] [place] of Occupat ional Health - Occupational Stress [...] Care Everywhere. * Nonspecific Chest Pain Adult (Ukrainian) documented in this encounter Medications at Time [...] assessment and management. History provided by: Patient sign language interpreter needed/used: no REVIEW OF SYSTEMS Constitutional: Negative [...] Impression IMPRESSION: Normal sinus rhythm with short DE Minimal voltage criteria for LVH, may be [...] Date: 10/07/2022 Normal sinus rhythm with short DE Minimal voltage criteria for LVH, may be [...] ED Prescriptions None DISPOSITION Home or Self Detention or Self Care Danny Boogie M.D. 10/07/22 [...] M.D. LAB BLOOD ADD-ON Performing Organization Address City/[facility]/ZIP Co de Phone Number [facility] [address] [place] [address], [facility] NPRG [address] [address] * Lipase (10/07/2022 12:17 PM CDT) Lipase, P 38 13 - 60 U/L 10/07/2022 1: 01 PM CDT NPRG Blood (Blood, Venous) 10/07/2022 12:17 PM CDT 10/07/2022 12:38 PM CDT Danny Boogie M.D. LAB BLOOD ADD-ON [facility] [address] [place] [phone], [facility] NPRG [address] [address] * (ABNORMAL) CBC with Differential, Blood (10/07/2022 [...] CDT Danny Boogie M.D. LAB BLOOD ADD-ON [facility] [address] [place] [address], [facility] NPRG [facility] [address] [place] [address] * Troponin T, Baseline, 5th gen (10/07/2022 12:17 PM CDT) Troponin T, Baseline, 5th gen <6 <=10 ng/L 10/07/2022 12:51 PM CDT NPRG Blood (Blood, Venous) 10/07/2022 12:17 PM CDT 10/07/2022 12:34 PM CDT Danny Boogie M.D. LAB BLOOD [place] IN [facility] [address] [place] [address], [place] NPRG [facility] [address] [place] [address] * (ABNORMAL) Basic Metabolic Panel (10/07/2022 12:17 [...] CDT Danny Boogie M.D. LAB BLOOD ADD-ON [facility] [address] [place] [address], [place] [facility] [address] [place] [address] * ECG 12 Lead (10/07/2022 12:07 PM CDT) Ventricular Rate ECG/Min 71 BPM MUSE DE Interval 136 ms MUSE QRSD Interval 86 ms MUSE QT Interval 396 ms MUSE QTC Interval 430 ms MUSE P [place] 45 degrees MUSE R [place] -3 degrees MUSE T Wave [place] 20 degrees MUSE 10/07/2022 12:0 7 PM CDT 10/07/2022 1:13 PM CDT Impressions MUSE - 10/07/2022 1:13 PM CDT Normal sinus rhythm with short DE Minimal voltage criteria for LVH, may be normal variant Nonspecific T wave abnormality When compared with ECG of 30-MAY-2022 09:36, Minimal criteria for Left ventricular hypertrophy are now present Reviewed by WHIT Broderick Narrative Procedure Note Alex Cho M.D. - 10/07/2022 IMPRESSION: Normal sinus rhythm with short DE Minimal voltage criteria for LVH, may be [...] 1235 (Medication Mariah lied - Provider: Jana Leblanc)1440 (Due: Medication Removed - Provider: Discharge Provider, Automatic - Comment: Time automatically adjusted from order being discontinued) documented in this encounter Additional Health Concerns Assessment Noted Time PHQ-9 Depression Total Score: 3 04/23/19 22 8:30 AM TELEVISION PRESENTER documented as of this encounter Care Teams Reprint Sorter Relationship Specialty Start Date End Date Elsewhere, Pcp PCP - General Internal Medicine 01/07/22 documented as of this encounter
--- OUTSIDE RECORDS SUMMARY | 2023-04-22 12:02 | XMS_ITS | Encounter Summary ---
Author Name Unknown Organization [facility] Address [address] [place] [address] Care Team Providers Care Form Setter Steel Pan Forms Name Role Phone Elsewhere, Pcp Primary Care Provider Unavailabl e Reason for Referral * Outpatient (Routine) - Authorized Specialty Diagnoses / Procedures Referred By Tania beckett Referred To Contact Emergency Medicine Diagnoses Pain Left Lower Quadrant Pain Left Upper Quadrant Ronal Henderson M.D. [facility] [place] [phone] [facility] Region Referral ID Status Reason Start Date Expiration Date V isits Requested Visits Authorized [id number] Authorized 03/08/2023 03/07/2026 1 1 Scheduling Instructions Patient will likely require EGD TRUCK DRIVER * Outpatient (Routine) - Closed Specialty Diagnoses / Procedures Referred By Tania beckett Referred To Contact Diagnoses Pain Left Lower Quadrant Procedures FL Esophagram Single Contrast Ronal Henderson M.D. [address] [place] [phone] [facility] Region Referral ID Status Reason Start Date Expiration Date Visits Re quested Visits Authorized [id number] Closed 03/08/2023 03/07/2024 1 1 TRUCK DRIVER Reason for Visit * Reason Comments Abdominal Pain Abd and epigastric p ain for several months. Has appt with GI in a few months. Today has worsening pain and nausea. Encounter Details Date Type Department Care Team (Late st Contact Info) Description 03/08/2023 1:52 PM MILK TRUCK DRIVER - 03/08/2023 4:01 PM MILK TRUCK DRIVER Emergency [facility] Emergency Department [address] [place] [phone] Ronal Henderson M.D. [address] [place] [phone] Pain Left Lower Quadrant (Primary [...] often do you attend chur ch or mandaeism services? 1 to 4 times per year 04/03/2022 Do you belong to any clubs o r organizations such as oriental orthodox groups, unions, fraternal or athletic groups, [...] Score 0 12/10/2021 [facility] - Occupational Stress Questionnaire Answer Date [...] Comments Blood Pressure 128/112 03/08/2023 3:45 PM MILK TRUCK DRIVER Pulse 79 03/08/2023 3:45 PM MILK TRUCK DRIVER Temperature 36.6 ??C (97.9 ??F) 03/08/2023 1:51 PM CS T Respiratory Rate 20 03/08/2023 1:51 PM MILK TRUCK DRIVER Oxygen Saturation 99% 03/08/2023 3:45 PM MILK TRUCK DRIVER Inhaled Oxygen Concentration - - Weight 106 kg (233 lb 11 oz) 03/08/2023 1:51 PM MILK TRUCK DRIVER Height - - Body Mass Index 37.72 08/30/2022 9:01 PM CDT documented in this encounter Discharge Instructions * Discharge Instructions* Ronal Henderson M.D. - 03/08/2023 3:38 PM MILK TRUCK DRIVER I have requested upper GI fluoroscopy and very prompt GI follow up. In the interim please try Bentryl for symptom control. TRUCK DRIVER * Attachments The following attachments cannot be sent through Care Everywhere. * Abdominal Pain Adult [id number] (Botswanan) documented in this encounter Medications at Time [...] does report very thorough workup from outside [facility] facility which includes 9 CT scans, [...] Abdominal Pain Ronal Henderson M.D. 03/09/23 0723 TRUCK DRIVER documented in this encounter Plan of Treatment Scheduled Referrals Name Type Priority Associated Diagnoses Order Schedule POST ED VISIT Gastroenterology and Hepatology Outpatient Referral Routine Pain Left Lower Quadrant Pain Left Upper Quadrant Expected: 03/08/2023 (Approximate), Expires: 06/06/2024 documented as of this encounter Procedures Procedure Name Priority Date/Time Associated Diagnosis Comments CBC WITH DIFFERENTIAL, B STAT 03/08/2023 2:50 PM MILK TRUCK DRIVER LIPASE, S/P STAT 03/08/2023 2:50 PM MILK TRUCK DRIVER COMPREHENSIVE METABOLIC PANEL, S/P STAT 03/08/2023 2:50 PM MILK TRUCK DRIVER URINALYSIS WITH MICROSCOPIC STAT 03/08/2023 2:43 PM MILK TRUCK DRIVER documented in this encounter Results * FL Esophagram Single Contrast (03/25/2023 10:08 AM MILK TRUCK DRIVER) Anatomical Region Laterality Modality Gastro Intestinal, Abdominal RST LOS, Abdominal ARZ LOS, Abdominal FLA LOS N/A Digital Radiography Impressions 03/25/2023 10:13 AM MILK TRUCK DRIVER Small sliding-type hiatal hernia. No reflux observed. Narrative 03/25/2023 10:13 AM MILK TRUCK DRIVER EXAM: FL ESOPHAGRAM SINGLE CONTRAST FINDINGS: Normal [...] reflux observed. Ronal Henderson M.D. IMG FLUOROSCOPY DC OCEDURES * Lipase (03/08/2023 2:50 PM MILK TRUCK DRIVER) Lipase, P 52 13 - 60 U/L 03/08/2023 3: 19 PM MILK TRUCK DRIVER [facility] Blood (Blood, Venous) 03/08/2023 2:50 PM MILK TRUCK DRIVER 03/08/2023 2:55 PM MILK TRUCK DRIVER Ronal Henderson M.D. LAB BLOOD ADD-ON [facility] [address] [place] [address], [facility] [place] [facility] [place] [address] [place] [phone] * (ABNORMAL) CBC with Differential, Blood (03/08/2023 2:50 PM MILK TRUCK DRIVER) [facility] Hemoglobin 14.8 11.6 - 15.0 g/dL 03/08/2023 3:01 PM MILK TRUCK DRIVER MKTO Hematocrit 44.7 35.5 - 44.9 % 03/08/2023 3:01 PM MILK TRUCK DRIVER MKTO Erythrocytes 5.29(H) 3.92 - 5.13 x10(12)/L 03/08/2023 3:01 PM MILK TRUCK DRIVER MKTO MCV 84.5 78.2 - 97.9 fL 03/08/2023 3:01 PM MILK TRUCK DRIVER MKTO RBC Distrib Width 13.6 12.2 - 16.1 % 03/08/2023 3:01 PM MILK TRUCK DRIVER MKTO Platelet Count 303 157 - 371 x10(9)/L 03/08/2023 3:01 PM MILK TRUCK DRIVER MKTO Leukocytes 8.8 3.4 - 9.6 x10(9)/L 03/08/2023 3:01 PM MILK TRUCK DRIVER MKTO Neutrophils 5.44 1.56 - 6.45 x10(9)/L 03/08/2023 3:00 PM MILK TRUCK DRIVER MKTO Lymphocytes 2.64 0.95 - 3.07 x10(9)/L 03/08/2023 3:01 PM MILK TRUCK DRIVER MKTO Monocytes 0.54 0.26 - 0.81 x10(9)/L 03/08/2023 3:01 PM MILK TRUCK DRIVER MKTO Eosinophils 0.16 0.03 - 0.48 x10(9)/L 03/08/2023 3:01 PM MILK TRUCK DRIVER MKTO Basophils 0.05 0.01 - 0.08 x10(9)/L 03/08/2023 3:01 PM MILK TRUCK DRIVER MKTO Blood (Blood, Venous) 03/08/2023 2:50 PM MILK TRUCK DRIVER 03/08/2023 2:55 PM MILK TRUCK DRIVER Ronal Henderson M.D. LAB BLOOD ADD-ON [facility] [address] [place] [address], [facility] MKTO [facility] [place] [facility] [place] [address] [place] [address] * Comprehensive Metabolic Panel (03/08/2023 2:50 PM MILK TRUCK DRIVER) [facility] Potassium, P 3.7 3.6 - 5.2 mmol/L 03/08/2023 3:19 PM MILK TRUCK DRIVER MKTO Sodium, P 138 135 - 145 mmol/L 03/08/2023 3:19 PM MILK TRUCK DRIVER MKTO Chloride, P 102 98 - 107 mmol/L 03/08/2023 3:19 PM MILK TRUCK DRIVER MKTO Bicarbonate, P 23 22 - 29 mmol/L 03/08/2023 3:19 PM MILK TRUCK DRIVER MKTO Anion Gap, P 13 7 - 15 03/08/2023 3:19 PM MILK TRUCK DRIVER MKTO BUN (Blood Urea Nitrogen), P 14 6 - 21 mg/dL 03/08/2023 3:19 PM MILK TRUCK DRIVER MKTO Creatinine 0.92 0.59 - 1.04 mg/dL 03/08/2023 3:19 PM MILK TRUCK DRIVER MKTO Estimated GFR (eGFR) 80 >=60 mL/min/BS A 03/08/2023 3:19 PM MILK TRUCK DRIVER MKTO Comment: Estimated GFR calculated using the 2020 CKD_EPI creatinine equation. Calcium, Total, P 10.0 8.6 - 10.0 mg/dL 03/08/2023 3:19 PM MILK TRUCK DRIVER MKTO Glucose, P 89 70 - 140 mg/dL 03/08/2023 3:19 PM MILK TRUCK DRIVER MKTO Protein, Total, P 7.2 6.3 - 7.9 g/dL 03/08/2023 3:19 PM MILK TRUCK DRIVER MKTO Albumin, P 4.4 3.5 - 5.0 g/dL 03/08/2023 3:19 PM MILK TRUCK DRIVER MKTO Aspartate Aminotransferase (AST), P 16 8 - 43 U/L 03/08/2023 3:19 PM MILK TRUCK DRIVER MKTO Alkaline Phosphatase, P 76 35 - 104 U/L 03/08/2023 3:19 PM MILK TRUCK DRIVER MKTO Alanine Aminotransferase (ALT), P 10 7 - 45 U/L 03/08/2023 3:19 PM MILK TRUCK DRIVER MKTO Bilirubin, Total, P 0.4 0.0 - 1.2 mg/dL 03/08/2023 3:19 PM MILK TRUCK DRIVER MKTO Blood (Blood, Venous) 03/08/2023 2:50 PM MILK TRUCK DRIVER 03/08/2023 2:55 PM MILK TRUCK DRIVER Ronal Henderson M.D. LAB BLOOD ADD-ON [facility] [address] [place] [address], [facility] MKTO [facility] [place] [facility] [place] [address] [place] [address] * (ABNORMAL) Urinalysis with Microscopic: Urine, Midstream (03/08/2023 2:43 PM MILK TRUCK DRIVER) Source Urine, Urine, Midstream 03/08/2023 3:00 PM MILK TRUCK DRIVER MKTO Clarity Clear Clear 03/08/2023 3:00 PM MILK TRUCK DRIVER MKTO Color Yellow 03/08/2023 3:00 PM MILK TRUCK DRIVER MKTO Comment: ----REFERENCE VALUE---- Colorless Yellow Chasity Blood Negative Negative 03/08/2023 3:00 PM MILK TRUCK DRIVER MKTO Nitrite Negative Negative 03/08/2023 3:00 PM MILK TRUCK DRIVER MKTO Leukocyte Esterase Trace(A) Negative 03/08/2023 3:00 PM MILK TRUCK DRIVER MKTO Protein Negative mg/dL 03/08/2023 3:00 PM MILK TRUCK DRIVER MKTO Comment: ----REFERENCE VALUE---- Negative Trace Glucose Negative Negative mg/dL 03/08/2023 3:00 PM MILK TRUCK DRIVER MKTO Ketone Negative Negative mg/dL 03/08/2023 3:00 PM MILK TRUCK DRIVER MKTO Bilirubin Negative Negative 03/08/2023 3:00 PM MILK TRUCK DRIVER MKTO pH 8.5(A) 5.0 - 8.0 03/08/2023 3:00 PM MILK TRUCK DRIVER MKTO Specific [place] 1.007 1.001 - 1.035 03/08/2023 3:00 PM MILK TRUCK DRIVER MKTO Urobilinogen 0.2 0.2 - 1.0 mg/dL 03/08/2023 3:00 PM MILK TRUCK DRIVER MKTO White Blood Cells Occ-3 /hpf 03/08/2023 3:03 PM MILK TRUCK DRIVER MKTO Comment: ----REFERENCE VALUE---- Males: 0-3 Females: 0-10 Unknown: 0-10 Red Blood Cells None Seen 0 - 2 /hpf 3:03 PM MILK TRUCK DRIVER MKTO Squamous Cells Occ-3 /hpf 03/08/2023 3:03 PM MILK TRUCK DRIVER MKTO Urine (Urine, Midstream) 03/08/2023 2:43 PM MILK TRUCK DRIVER 03/08/2023 2:56 PM MILK TRUCK DRIVER Ronal Henderson M.D. LAB URINE ORDERABL ES [facility] [address] [place] [address], [facility] MKTO [facility] [place] [address] [place] [address] documented in this encounter Visit Diagnoses Diagnosis [...] For 1 dose Given 03/08/2023 2:50 PM MILK TRUCK DRIVER 25 mg droPERidoL injection 1.25 mg (INAPSINE) 1.25 mg, intravenous, Once, On Wed03/08/23 at 1428, For 1 dose Given 03/08/2023 2:50 PM MILK TRUCK DRIVER 1.25 mg ketorolac injection 15 mg (TORADOL) 15 mg, intravenous, Once, On Wed03/08/23 at 1428, For 1 dose, Adult IV push rate: Over 15 seconds. Peds IV push rate: Over 1 minute. Doses > 15 mg IV/IM are discouraged due to lack of additional analgesic benefit. Given 03/08/2023 2:50 PM MILK TRUCK DRIVER 15 mg sodium chloride 0.9 % injection 2-10 mL 2-10 mL, intravenous, As needed, line care, Starting on Wed03/08/23 at 1427 documented in this encounter Active and Recently Administered Medications Times are shown in MILK TRUCK DRIVER. Scheduled Medication Order 03/06/2023 03/07/2023 03/08/2023 diphenhydrAMINE [...] Total Score: 3 04/23/19 22 8:30 AM MILK TRUCK DRIVER documented as of this encounter Care Teams Form Setter Steel Pan Forms Relationship Specialty Start Date End Date Elsewhere, Pcp PCP - General Internal Medicine 01/07/22 documented as of this encounter
--- OUTSIDE RECORDS SUMMARY | 2023-04-22 12:02 | XMS_ITS | Encounter Summary ---
Author Name Unknown Organization [facility] Address [address] [place] [address] Care Team Providers Care Restaurant General Manager Name Role Phone Elsewhere, Pcp Primary Care Provider Unavailabl e Reason for Visit * Reason Onset Date Comments Med Question 03/08/2023 Encounter Details Date Type Department Care Team (Late st Contact Info) Description 03/08/2023 Nurse Triage [facility] Department of Family Medicine in [place], [place] [address] [place] [address] Suha Lea, R.N. Med Question Social History [...] often do you attend chur ch or mu-ism services? 1 to 4 times per year 04/03/2022 Do you belong to any clubs o r organizations such as presybeterian groups, unions, fraternal or athletic groups, or [...] Suha Lea, RSonaN. - 03/08/2023 9:44 PM WELL FLOW OPERATOR Patient calls to verify home medications she would like to take for nausea does not interact with medications given via IV in ED today. Call transferred to [facility] to connect to [place] ED. FLOW OPERATOR documented in this encounter Plan of Treatment Not on file documented as of this encounter Visit Diagnoses Not on filedocumented in this encounter Additional Health Concerns Assessment Noted Time PHQ-9 Depression Total Score: 3 04/23/19 22 8:30 AM WELL FLOW OPERATOR documented as of this encounter Care Teams Restaurant General Manager Relationship Specialty Start Date End Date Elsewhere, Pcp PCP - General Internal Medicine 01/07/22 documented as of this encounter
--- OUTSIDE RECORDS SUMMARY | 2023-04-22 12:02 | XMS_ITS | Encounter Summary ---
Author Name Unknown Organization [facility] Address [address] [place] [address] Care Team Providers Care Music Intern Name Role Phone Elsewhere, Pcp Primary Care Provider Unavailabl e Encounter Details Date Type Department Care Team (Latest Contact Info) Description 03/02/2023 Clinical Communication Division of Gastroenterology in [place], [place] [address] [place] [address] Thaddeus Cosme [address] [place] [address] Social History Tobacco Use Types Packs/Day Years [...] Answer Date Recorded PHQ-2 Score 0 12/10/2021 [facility] - Occupational Stress Questionnaire Answer Date [...] place to sleep or slept in a care home (including now)? No 04/03/2022 Depression Answer [...] Pending 03/10/2023 03/10/2023 03/10/2023 9 :12 AM NURSING HOME PHYSICIAN Assessment Noted Time PHQ-9 Depression Total Score: 3 04/23/19 22 8:30 AM NURSING HOME PHYSICIAN documented as of this encounter Care Teams Music Intern Relationship Specialty Start Date End Date Elsewhere, Pcp PCP - General Internal Medicine 01/07/22 documented as of this encounter
--- OUTSIDE RECORDS SUMMARY | 2023-04-22 12:02 | XMS_ITS | Encounter Summary ---
Author Name Unknown Organization [facility] Address [address] [place] [address] Care Team Providers Care Marine Operations Coordinator Name Role Phone Elsewhere, Pcp Primary Care Provider Unavailabl e Reason for Visit * Reason Comments Constipation Pt presents with fatou oing constipation. Pt was seen in [facility] ED and was increased to 2x day miralax. Pt reports abdominal pain around umbilicus Encounter Details Date Type Department Care Team (Late st Contact Info) Description 08/30/2022 8:07 PM CDT - 08/30/2022 10:34 PM CDT Emergency [place] [facility] [address] [place] [phone] Boyd Lynn M.D. [address] [place] [phone] Discomfort Abdominal (Primary Dx) Discharge Disposition: Home [...] How often do you attend chur or synagogue services? 1 to 4 times per year 04/03/2022 Do you belong to any clubs o r organizations such as amish groups, unions, fraternal or athletic groups, or [...] Answer Date Recorded PHQ-2 Score 0 12/10/2021 [facility] [place] of Occupat ional Health - Occupational Stress [...] by mouth daily. 30 tablet 0 01/30/2022 ALPRAZolam (XANAX) 0.5 mg tablet Take 1 tablet by mouth 2 (two) times a day as needed. 0 betamethasone dipropionate (DIPROLENE) 0.05 % ointment [...] HOURS NEEDED FOR PAIN 0 03/18/2022 02/15/2023 sennosides-docusate sodium (Senna with Docusate Sodium) 8.6-50 mg per tablet Take 1 tablet by mouth 2 (two) times a day. 60 tablet 0 08/30/2022 09/29/2022 documented as of this encounter ED Notes * Boyd Lynn M.D. - 08/30/2022 10:08 PM CDT [facility] Department of Emergency Medicine- [place] 08/31/2022 1:13 AM CDT *Encounter labs and radiology results at the end of this note* Chief Complaint Patient presents with Constipation Pt presents with ongoing constipation. Pt was seen in [facility] ED and was increased to 2x day [...] had problems with constipation. Seen in the [place] [facility] about a week ago with [...] Total Score: 3 04/23/19 22 8:30 AM BASKETBALL REFEREE documented as of this encounter Care Teams Marine Operations Coordinator Relationship Specialty Start Date End Date Elsewhere, Pcp PCP - General Internal Medicine 01/07/22 documented as of this encounter
--- OUTSIDE RECORDS SUMMARY | 2023-04-22 12:02 | XMS_ITS | Encounter Summary ---
Author Name Unknown Organization [facility] Address [address] [place] [address] Care Team Providers Care Section Chief Name Role Phone Elsewhere, Pcp Primary Care Provider Unavailabl e Reason for Visit * Reason Comments Heartburn X 1 mos getting wors e Encounter Details Date Type Department Care Team (Late st Contact Info) Description 02/15/2023 1:45 PM COMPRESS ENGINEER Office Visit Urgent Care, [facility], in [place], [place] [address] [place] [phone] Lela Aguiar, P.A.-CSona [address] [place] [phone] Pain Epigastric (Primary Dx) Discharge Disposition: Home [...] often do you attend chur ch or pentecostal services? 1 to 4 times [...] Answer Date Recorded PHQ-2 Score 0 12/10/2021 [facility] of Occupat ional Health - Occupational [...] Comments Blood Pressure 121/87 02/15/2023 1:53 PM COMPRESS ENGINEER Pulse 87 02/15/2023 1:53 PM COMPRESS ENGINEER Temperature 36.3 ??C (97.3 ??F) 02/15/2023 1:53 PM CS T Respiratory Rate - - Oxygen Saturation 100% 02/15/2023 1:53 PM COMPRESS ENGINEER Inhaled Oxygen Concentration - - Weight - [...] Body Mass Index 40.0-44.9 Adult ([facility]) 06/05/2021 Bleeding Postcoital 01/30/2022 Resolved Ambulatory [...] by: Lela Aguiar P.A.-C. 02/15/23 6:16 PM COMPRESS ENGINEER RESS ENGINEER documented in this encounter Plan of Treatment Not on file documented as of this encounter Procedures Procedure Name Priority Date/Time Associated Diagnosis Comments CBC WITH DIFFERENTIAL, B STAT 02/15/2023 2:35 PM COMPRESS ENGINEER Pain Epigastric BASIC METABOLIC PANEL, S/P STAT 02/15/2023 2:35 PM COMPRESS ENGINEER Pain Epigastric documented in this encounter Results * Basic Metabolic Panel (02/15/2023 2:35 PM COMPRESS ENGINEER) Potassium, P 4.1 3.6 - 5.2 mmol/L 02/15/2023 3:05 PM COMPRESS ENGINEER NPRG Sodium, P 139 135 - 145 mmol/L 02/15/2023 3:05 PM COMPRESS ENGINEER NPRG Chloride, P 105 98 - 107 mmol/L 02/15/2023 3:05 PM COMPRESS ENGINEER NPRG Bicarbonate, P 25 22 - 29 mmol/L 02/15/2023 3:05 PM COMPRESS ENGINEER NPRG Anion Gap, P 9 7 - 15 02/15/2023 3:05 PM COMPRESS ENGINEER NPRG BUN (Blood Urea Nitrogen), P 10 6 - 21 mg/dL 02/15/2023 3:05 PM COMPRESS ENGINEER NPRG Creatinine 0.82 0.59 - 1.04 mg/dL 02/15/2023 3:05 PM COMPRESS ENGINEER NPRG Estimated GFR (eGFR) >90 >=60 mL/min/BSA 02/15/2023 3:05 PM COMPRESS ENGINEER NPRG Comment: Estimated GFR calculated using the 2020 CKD_EPI creatinine equation. Calcium, Total, P 8.9 8.6 - 10.0 mg/dL 02/15/2023 3:05 PM COMPRESS ENGINEER NPRG Glucose, P 85 70 - 140 mg/dL 02/15/2023 3:05 PM COMPRESS ENGINEER NPRG Blood (Blood, Venous) 02/15/2023 2:35 PM COMPRESS ENGINEER 02/15/2023 2:39 PM COMPRESS ENGINEER Lela Aguiar P.A.-C. LAB BLOOD ADD-ON [facility] [address] [place] [address], [facility] NPRG [facility] [address] [place] [address] * CBC with Differential, Blood (02/15/2023 2:35 PM COMPRESS ENGINEER) Pathologist [facility] Hemoglobin 12.5 11.6 - 15.0 g/dL 02/15/2023 2:48 PM COMPRESS ENGINEER NPRG Hematocrit 39.2 35.5 - 44.9 % 02/15/2023 2:48 PM COMPRESS ENGINEER NPRG Erythrocytes 4.56 3.92 - 5.13 x10(12)/L 02/15/2023 2:48 PM COMPRESS ENGINEER NPRG MCV 86.0 78.2 - 97.9 fL 02/15/2023 2:48 PM COMPRESS ENGINEER NPRG RBC Distrib Width 14.9 12.2 - 16.1 % 02/15/2023 2:48 PM COMPRESS ENGINEER NPRG Platelet Count 285 157 - 371 x10(9)/L 02/15/2023 2:48 PM COMPRESS ENGINEER NPRG Leukocytes 8.8 3.4 - 9.6 x10(9)/L 02/15/2023 2:48 PM COMPRESS ENGINEER NPRG Neutrophils 5.53 1.56 - 6.45 x10(9)/L 02/15/2023 2:48 PM COMPRESS ENGINEER NPRG Lymphocytes 2.50 0.95 - 3.07 x10(9)/L 02/15/2023 2:48 PM COMPRESS ENGINEER NPRG Monocytes 0.53 0.26 - 0.81 x10(9)/L 02/15/2023 2:48 PM COMPRESS ENGINEER NPRG Eosinophils 0.19 0.03 - 0.48 x10(9)/L 02/15/2023 2:48 PM COMPRESS ENGINEER NPRG Basophils 0.03 0.01 - 0.08 x10(9)/L 02/15/2023 2:48 PM COMPRESS ENGINEER NPRG Blood (Blood, Venous) 02/15/2023 2:35 PM COMPRESS ENGINEER 02/15/2023 2:39 PM COMPRESS ENGINEER Lela Aguiar P.A.-C. LAB BLOOD ADD-ON [facility] [address] [place] [address], [facility] NPRG [facility] [address] [place] [address] documented in this encounter Visit Diagnoses Diagnosis [...] prior to administration Given 02/15/2023 2:42 PM COMPRESS ENGINEER 45 mL Audra th documented in this encounter Additional Health Concerns Assessment Noted Time PHQ-9 Depression Total Score: 3 04/23/19 22 8:30 AM COMPRESS ENGINEER documented as of this encounter Care Teams Section Chief Relationship Specialty Start Date End Date Elsewhere, Pcp PCP - General Internal Medicine 01/07/22 documented as of this encounter
--- OUTSIDE RECORDS SUMMARY | 2023-04-22 12:02 | XMS_ITS | Encounter Summary ---
Author Name Unknown Organization [facility] Address [address] [place] [address] Care Team Providers Care Application Support Analyst Name Role Phone Elsewhere, Pcp Primary Care Provider Unavailabl e Reason for Visit * Reason Comments Shortness of Breath Pt presents feeling short of breath, nauseated and ill. Has not vomited. Pt has occasional cough and feels congested. Encounter Details Date Type Department Care Team ([facility] st Contact Info) Description 03/10/2023 8:44 AM FOOD BROKER - 03/10/2023 11:30 AM FOOD BROKER Emergency [facility] [address] [place] [phone] Jesus Manuel Hensley M.D. [address] [place] [phone] Influenza Like Illness (Primary Dx); Dehydration; Hypokalemia [...] How often do you attend chur or uatsdin services? 1 to 4 times per year [...] Answer Date Recorded PHQ-2 Score 0 12/10/2021 [facility] [place] of Occupat ional Health - Occupational Stress [...] place to sleep or slept in a senior care (including now)? No 04/03/2022 Depression Answer Date [...] Comments Blood Pressure 116/78 03/10/2023 11:00 AM FOOD BROKER Pulse 70 03/10/2023 11:00 AM FOOD BROKER Temperature 36.9 ??C (98.4 ??F) 03/10/2023 8:15 AM CS T Respiratory Rate 18 03/10/2023 11:00 AM FOOD BROKER Oxygen Saturation 100% 03/10/2023 11:00 AM FOOD BROKER Inhaled Oxygen Concentration - - Weight 95.9 kg (211 lb 6.7 oz) 03/10/2023 8:53 A M FOOD BROKER Height 167.6 cm (5' 6) 03/10/2023 8:53 AM FOOD BROKER Body Mass Index 34.12 03/10/2023 8:53 AM FOOD BROKER documented in this encounter Discharge Instructions * Attachments The following attachments cannot be sent through Care Everywhere. * Viral Respiratory Infection [id number] (Maldivian) documented in this encounter Medications at Time [...] ST-T wave changes. When compared to previous, [place] interval has increased Final Diagnoses: as of 03/10/23 1112 Influenza Like Illness Dehydration Hypokalemia Jesus Manuel Hensley M.D. 03/10/23 1112 BROKER documented in this encounter Plan of Treatment Not on file documented as of this encounter Procedures Procedure Name Priority Date/Time Associated Diagnosis Comments ECG STAT 03/10/2023 10:21 AM FOOD BROKER DX CHEST AP OR PA AND LATERAL 2 VIEWS RAD - Semiurgent (Fast; most ED patients; some inpatients) 03/10/2023 9:37 AM FOOD BROKER SARS CORONAVIRUS 2, PCR RAPID, V STAT 03/10/2023 8:49 AM FOOD BROKER INFLUENZA A, B, RSV, PCR, POCT STAT 03/10/2023 8:49 AM FOOD BROKER CBC WITH DIFFERENTIAL, B STAT 03/10/2023 8:39 AM FOOD BROKER BASIC METABOLIC PANEL, S/P STAT 03/10/2023 8:39 AM FOOD BROKER documented in this encounter Results * ECG 12 Lead (03/10/2023 10:21 AM FOOD BROKER) Ventricular Rate ECG/Min 73 BPM MUSE [place] Interval 132 ms MUSE QRSD Interval 90 ms MUSE QT Interval 416 ms MUSE QTC Interval 458 ms MUSE P [place] 66 degrees MUSE R [place] 14 degrees MUSE T Wave [place] -1 degrees MUSE 03/10/2023 10:2 1 AM FOOD BROKER 03/10/2023 10:42 AM FOOD BROKER Impressions MUSE - 03/10/2023 10:40 AM FOOD BROKER Normal sinus rhythm Nonspecific ST and T wave abnormality When compared with ECG of 07-OCT-2022 12:07, AZ interval has increased Reviewed by WHIT Plummer Narrative Procedure Note Daquan Hess M.D., M.P.H. - 03/10/2023 IMPRESSION: Normal sinus rhythm Nonspecific ST and T wave abnormality When compared with ECG of 07-OCT-2022 12:07, [place] interval has increased Reviewed by WHIT Plummer Jesus Manuel Hensley M.D. ECG ORDERABLES MUSE NA * DX Chest AP or PA and Lateral 2 Views (03/10/2023 9:37 AM FOOD BROKER) Anatomical Region Laterality Modality Chest, Thoracic RST LOS, Tho racic ARZ LOS, Thoracic FLA LOS N/A Digital Radiography Impressions 03/10/2023 9:38 AM FOOD BROKER Stable chest, no acute cardiopulmonary disease. Narrative 03/10/2023 9:38 AM FOOD BROKER EXAM: DX CHEST AP OR PA AND [...] PCR, Point of Care (03/10/2023 8:49 AM FOOD BROKER) Influenza A, POCT Negative Negative 03/10/2023 8:53 AM FOOD BROKER NPRG Influenza B, POCT Negative Negative 03/10/2023 8:53 AM FOOD BROKER NPRG Resp Syncytial Virus, POCT Negative Negative 03/10/2023 8:53 AM FOOD BROKER NPRG Swab (Nasopharynx) 03/10/2023 8:49 AM FOOD BROKER 03/10/2023 8:49 AM FOOD BROKER Jesus Manuel Hensley M.D. LAB POCT ORDERABLES - DEVICE Performing Organization Address City/[facility]/ZIP Co de Phone Number [facility] [address] [place] [address], [facility] NPRG [place] [address] [address] [place] [address] * SARS Coronavirus 2, PCR Rapid Symptomatic (03/10/2023 8:49 AM FOOD BROKER) SARS CoV-2, PCR, Rapid, V Undetected Undetected 03/10/2023 9:12 AM FOOD BROKER NPRG Comment: ----ADDITIONAL INFORMATION---- This RT-PCR test was performed using the [employer] SARS-CoV-2 and Influenza A/B Reagent assay from [employer], which has received Emergency Use Authorization(EUA) by the U.S. Food and Drug Administration. Fact sheets for this Emergency Use Authorization (EUA) assay can be found at the following links: For Healthcare Providers: https://www.fda.gov/media/275347/download For Patients: https://www.fda.gov/media/196208/download SARS Coronavirus 2, Source, Rapid Swab, Nasopharynx 03/10/2023 8:49 AM FOOD BROKER NPRG Swab (Nasopharynx) 03/10/2023 8:49 AM FOOD BROKER 03/10/2023 8:49 AM FOOD BROKER Jesus Manuel Hensley M.D. LAB MICROBIOLOGY - G ENERAL ORDERABLES [facility] [address] [place] [facility] [place] [address], [facility] NPRG [facility] [address] [place] [address] * (ABNORMAL) CBC with Differential, Blood (03/10/2023 8:39 AM FOOD BROKER) Hemoglobin 14.3 11.6 - 15.0 g/dL 03/10/2023 8:51 AM FOOD BROKER NPRG Hematocrit 42.9 35.5 - 44.9 % 03/10/2023 8:51 AM FOOD BROKER NPRG Erythrocytes 5.08 3.92 - 5.13 x10(12)/L 03/10/2023 8:51 AM FOOD BROKER NPRG MCV 84.4 78.2 - 97.9 fL 03/10/2023 8:51 AM FOOD BROKER NPRG RBC Distrib Width 14.5 12.2 - 16.1 % 03/10/2023 8:51 AM FOOD BROKER NPRG Platelet Count 293 157 - 371 x10(9)/L 03/10/2023 8:51 AM FOOD BROKER NPRG Leukocytes 8.9 3.4 - 9.6 x10(9)/L 03/10/2023 8:51 AM FOOD BROKER NPRG Neutrophils 6.29 1.56 - 6.45 x10(9)/L 03/10/2023 8:51 AM FOOD BROKER NPRG Lymphocytes 1.51 0.95 - 3.07 x10(9)/L 03/10/2023 8:51 AM FOOD BROKER NPRG Monocytes 0.98(H) 0.26 - 0.81 x10(9)/L 03/10/2023 8:51 AM FOOD BROKER NPRG Eosinophils 0.07 0.03 - 0.48 x10(9)/L 03/10/2023 8:51 AM FOOD BROKER NPRG Basophils 0.03 0.01 - 0.08 x10(9)/L 03/10/2023 8:51 AM FOOD BROKER NPRG Blood (Blood, Venous) 03/10/2023 8:39 AM FOOD BROKER 03/10/2023 8:45 AM FOOD BROKER Jesus Manuel Hensley M.D. LAB BLOOD ADD-ON [facility] [address] [place] [address], [place] NPRG [facility] [address] [place] [address] * (ABNORMAL) Basic Metabolic Panel (03/10/2023 8:39 AM FOOD BROKER) Potassium, P 3.4(L) 3.6 - 5.2 mmol/L 03/10/2023 9:05 AM FOOD BROKER NPRG Sodium, P 137 135 - 145 mmol/L 03/10/2023 9:05 AM FOOD BROKER NPRG Chloride, P 102 98 - 107 mmol/L 03/10/2023 9:05 AM FOOD BROKER NPRG Bicarbonate, P 20(L) 22 - 29 mmol/L 03/10/2023 9:05 AM FOOD BROKER NPRG Anion Gap, P 15 7 - 15 03/10/2023 9:05 AM FOOD BROKER NPRG BUN (Blood Urea Nitrogen), P 9 6 - 21 mg/dL 03/10/2023 9:05 AM FOOD BROKER NPRG Creatinine 1.02 0.59 - 1.04 mg/dL 03/10/2023 9:05 AM FOOD BROKER NPRG Estimated GFR (eGFR) 71 >=60 mL/min/BSA 03/10/2023 9:05 AM FOOD BROKER NPRG Comment: Estimated GFR calculated using the 2020 CKD_EPI creatinine equation. Calcium, Total, P 9.9 8.6 - 10.0 mg/dL 03/10/2023 9:05 AM FOOD BROKER NPRG Glucose, P 85 70 - 140 mg/dL 03/10/2023 9:05 AM FOOD BROKER NPRG Blood (Blood, Venous) 03/10/2023 8:39 AM FOOD BROKER 03/10/2023 8:45 AM FOOD BROKER Jesus Manuel Hensley M.D. LAB BLOOD ADD-ON [facility] [address] [place] [address], [place] NPRG [facility] [address] [place] [address] documented in this encounter Visit Diagnoses Diagnosis [...] 1 dose New Bag 03/10/2023 8:46 AM FOOD BROKER 1,000 mL 1000 mL/hr NaCl 0.9 % bolus 1,000 mL 1,000 mL, intravenous, at 1,000 mL/hr, Administer over 1 Hours, Once, On Wed03/10/23 at 0946, For 1 dose New Bag 03/10/2023 9:49 AM FOOD BROKER 1,000 mL 1000 mL/hr ondansetron (PF) injection 4 mg (ZOFRAN) 4 mg, intravenous, Once, On Wed03/10/23 at 0854, For 1 dose Given 03/10/2023 9:03 AM FOOD BROKER 4 mg potassium chloride ER tablet 20 mEq (KLORCON/K-TAB) 20 mEq, oral, Once, On Wed03/10/23 at 0907, For 1 dose, Swallow whole. Do NOT crush, chew, or split tablet. Given 03/10/2023 9:20 AM FOOD BROKER 20 mEq sodium chloride 0.9 % injection 2-10 mL 2-10 mL, intravenous, As needed, line care, Starting on Wed03/10/23 at 0830 Given 03/10/2023 8:46 AM FOOD BROKER 10 mL documented in this encounter Active and Recently Administered Medications Times are shown in FOOD BROKER. Scheduled Medication Order 03/08/2023 03/09/2023 03/10/2023 NaCl 0.9 % bolus 1,000 mL (COMPLETED) 1,000 mL, intravenous, at 1,000 mL/hr, Administer over 1 Hours, Once, On Wed03/10/23 at 0831, For 1 dose 0846 (New Bag - Prov ider: Jennifer Turcios RBina.)0946 (Stopped - Provider: Jennifer Turcios R.N.) NaCl [...] Pending 03/10/2023 03/10/2023 03/10/2023 9 :12 AM FOOD BROKER Assessment Noted Time PHQ-9 Depression Total Score: 3 04/23/19 22 8:30 AM FOOD BROKER documented as of this encounter Care Teams Application Support Analyst Relationship Specialty Start Date End Date Elsewhere, Pcp PCP - General Internal Medicine 01/07/22 documented as of this encounter
--- OUTSIDE RECORDS SUMMARY | 2023-04-22 12:02 | XMS_ITS | Encounter Summary ---
Author Name Unknown Organization [facility] Address [address] [place] [address] Care Team Providers Care Latin Dancer Name Role Phone Elsewhere, Pcp Primary Care Provider Unavailabl e Reason for Visit * Reason Onset Date Comments Constipation 08/28/2022 Encounter Details Date Type Department Care Team ([facility] st Contact Info) Description 08/28/2022 Nurse Triage Department of Family Medicine in [place], [place] [address] [place] [phone] Head, Henny Atwood M.S.N., R.N. [address] [place] [phone] Constipation Social History Tobacco Use Types Packs/Day [...] How often do you attend chur or alevism services? 1 to 4 times [...] Answer Date Recorded PHQ-2 Score 0 12/10/2021 [facility] of Occupat ionny Health - Occupational Stress Questionnaire Answer Date [...] is more swollen than usual Protocols used: [id number] Care Advice Patient/Caregiver understands and will follow [...] Score: 3 04/23/19 22 8:30 AM PROGRAM STRATEGIST documented as of this encounter Care Teams Latin Dancer Relationship Specialty Start Date End Date Elsewhere, Pcp PCP - General Internal Medicine 01/07/22 documented as of this encounter
--- OUTSIDE RECORDS SUMMARY | 2023-04-22 12:03 | XMS_ITS | Clinical Summary ---
Author Name Unknown Organization [employer] [facility] Address [place], [place] [address] Care Team Providers Care Quality Control Supervisor Name Role Phone Tone Mcqueen Unavailable [phone] Pcp, No Primary Care Provider Unavailabl e Allergies No known active allergies Medications Medication Sig Dispensed Refills Start Date End Date Status budesonide (RHINOCORT ALLERGY) (32 mcg each actuation) nasal spray Inhale 1 [place] into both nostrils once daily. 0 02/13/2020 [...] RT,BB Catie Mtz MD Delivery Location:Hospital ( [facility] [address]AGE) Last Filed Vital [...] 7:50 AM Pos t section Care Teams Quality Control Supervisor Relationship Specialty Start Date End Date Pcp, No . PCP - General 12/24/21 Tone Mcqueen MBBS [address] [facility] [address] [place] [address] Consulting Physician Cardiology - Interventional 03/21/20
--- OUTSIDE RECORDS SUMMARY | 2023-04-22 12:03 | XMS_ITS | Encounter Summary ---
Author Name Unknown Organization [facility] Address [address] [place] [address] Care Team Providers Care Rn Allergy Name Role Phone Elsewhere, Pcp Primary Care Provider Unavailabl e Reason for Visit * Reason Comments side pain L breast area Encounter Details Date Type Department Care Team ([facility] st Contact Info) Description 06/01/2022 11:00 AM CDT Office Visit Urgent Care, [facility], in [place], [place] [address] [place] [phone] Tania Fischer, CELINA, C.N.P., R.N. [address] [place] [address] [phone] Pain Rib (Primary Dx); Strain Back Muscle [...] How often do you attend chur or anabaptist services? 1 to 4 times per year 04/03/2022 Do you belong to any clubs o r organizations such as pentecostal groups, unions, fraternal or athletic groups, or [...] PHQ-2 Score 0 12/10/2021 [facility] [place] of Occupat ional Health - Occupational Stress [...] Care Everywhere. * Nonspecific Chest Pain Adult (Syrian) documented in this encounter Progress Notes * Tania Fischer APRN, C.N.P. - 06/01/2022 11:00 AM CDT SUBJECTIVE CHIEF COMPLAINT / REASON FOR VISIT side pain (L breast area) HISTORY OF PRESENT ILLNESS Henny Rivas is a 41 y.o. female who presents for evaluation of left sided breast/rib cage discomfort. Nervous as this pain comes and goes. Was seen in [facility] 2 days ago. They were at [...] back discomfort. Patient has been seen at [facility] 2 days ago. With comprehensive workup without [...] with. We did review the brochure from [facility] on stress management including pages 3 and [...] discussed and reviewed in AVS. Discharged from [facility] in an independent, vitally stable condition. documented in this encounter Plan of Treatment Not on file documented as of this encounter Visit Diagnoses Diagnosis Pain Rib- Primary Strain Back Muscle Subsequent documented in this encounter Additional Health Concerns Assessment Noted Time PHQ-9 Depression Total Score: 3 04/23/19 22 8:30 AM IN CLASSROOM TUTOR documented as of this encounter Care Teams Rn Allergy Relationship Specialty Start Date End Date Elsewhere, Pcp PCP - General Internal Medicine 01/07/22 documented as of this encounter
--- OUTSIDE RECORDS SUMMARY | 2023-04-22 12:03 | XMS_ITS | Encounter Summary ---
Author Name Unknown Organization [facility] Address [address] [place] [address] Care Team Providers Care Foaming Machine Operator Name Role Phone Elsewhere, Pcp Primary [...] CDT - 08/23/2022 1:34 AM CDT Emergency [facility] Emergency Department [address] [place] [phone] Huong Gomez APRN, C.N.P., D.N.P. [address] [place] [address] [phone] Pain Flank (Primary Dx); Abdominal Pain Discharge [...] week 04/03/2022 How often do you attend [facility] or cheondoism services? 1 to 4 times per year 04/03/2022 Do you belong to any clubs o r organizations such as jain groups, unions, fraternal or athletic groups, or [...] Date Recorded PHQ-2 Score 0 12/10/2021 [facility] [place] of Occupat ional Health - Occupational Stress [...] place to sleep or slept in a detention (including now)? No 04/03/2022 Depression Answer Date [...] of this encounter ED Notes * Huong Gomez, CELINA, C.N.P., D.N.P. - 08/22/2022 11:13 PM CDT [...] Ketone Negative Bilirubin Negative pH 6.5 Specific [place] 1.005 Urobilinogen 0.2 Not suspicious for infectious process [place] Aug 23, 2022 0107 Comprehensive Metabolic Panel(!): [...] or pelvis. Final Diagnoses: as of 08/23/22 011 Pain Flank Abdominal Pain Huong Gomez APRN, [...] the abdomen or pelvis. Huong Gomez APRN, C.N.P., D.N.P. IMG C T PROCEDURES * Lipase (08/23/2022 12:25 AM CDT) Lipase, P 26 13 - 60 U/L 08/23/2022 1: 02 AM CDT MKTO Blood (Blood, Venous) 08/23/2022 12:25 AM CDT 08/23/2022 12:37 AM CDT Huong Gomez APRN, C.N.P., D.N.P. LAB B RANJANA ADD-ON [facility] [address] [place] [address], [place] MKTO [facility] [address] [place] [address] * (ABNORMAL) Comprehensive Metabolic Panel (08/23/2022 12:25 AM CDT) [facility] [address] Potassium, P 3.5(L) 3.6 - 5.2 mmol/L [...] 08/23/2022 12:37 AM CDT Huong Gomez APRN, C.N.P., D.N.P. LAB B LOOD ADD-ON [facility] [address] [place] [address], [facility] MKTO [facility] [address] [place] [address] * (ABNORMAL) CBC with Differential, Blood (08/23/2022 [...] 08/23/2022 12:37 AM CDT Huong Gomez APRN, C.N.P., D.N.P. LAB B LOOD ADD-ON Performing Organization Address [facility] Co de Phone Number [facility] [address] [place] [address] * Microscopic Automated (08/22/2022 8:06 PM CDT) White Blood Cells None Seen /hpf 08/22/2022 8:18 PM CDT MKTO Comment: ----REFERENCE VALUE---- Males: 0-3 Females: 0-10 Unknown: 0-10 Red Blood Cells None Seen 0 - 2 /hpf 08/22/2022 8:18 PM CDT MKTO Squamous Cells Occ-3 /hpf 08/22/2022 8:18 PM CDT MKTO Urine 08/22/2022 8:06 PM CDT 08/22/2022 8:08 PM CDT Huong Gomez APRN, C.N.P., D.N.P. LAB U RINE ORDERABLES Performing Organization Address [facility] Co de Phone Number [facility] [address] [place] [address], [address] [place] [address] * (ABNORMAL) Urinalysis with Microscopic if Indicated [...] 8.0 08/22/2022 8:15 PM CDT MKTO Specific [place] 1.005 1.001 - 1.035 08/22/2022 8:15 PM CDT MKTO Urobilinogen 0.2 0.2 - 1.0 mg/dL 08/22/2022 8:15 PM CDT MKTO Urine (Urine, Midstream) 08/22/2022 8:06 PM CDT 08/22/2022 8:08 PM CDT Huong Gomez APRN, C.N.P., D.N.P. LAB U RAMYE ORDERABLES [facility] [address] [place] [address], [facility] MKTO [facility] [place] [address] documented in this encounter Visit Diagnoses Diagnosis [...] Medication Guidelines 0045 (Given - Provid er: Renetta Dolan(R)(CT), R.T.(R)) sodium chloride 0.9 % flush 100 mL (COMPLETED) 100 mL, intravenous, Once in imaging, line care, needed for CT, Starting on 08/23/22 at 0045, For 1 dose 0045 (Given - Provid er: Russell Dolan.T.(R)(CT), R.T.(R)) sodium chloride 0.9 % injection 10 mL (COMPLETED) 10 mL, intravenous, Once in imaging, line care, for CT exam, Starting on 08/23/22 at 0045, For 1 dose 0045 (Given - Provid er: Renetta Dolan(R)(CT), R.T.(R)) documented in this encounter Additional Health Concerns Assessment Noted Time PHQ-9 Depression Total Score: 3 04/23/19 22 8:30 AM BREAD ICER documented as of this encounter Care Teams Foaming Machine Operator Relationship Specialty Start Date End Date Elsewhere, Pcp PCP - General Internal Medicine 01/07/22 documented as of this encounter
--- OUTSIDE RECORDS SUMMARY | 2023-04-22 12:03 | XMS_ITS | Encounter Summary ---
Author Name Unknown Organization [facility] Address [address] [place] [address] Care Team Providers Care Wind Farm Operations Manager Name Role Phone Elsewhere, Pcp Primary Care Provider Unavailabl e Reason for Visit * Reason Comments Allergic Reaction After increasing the dose Zoloft from 50 mg to 75 mg dose patient felt palpitations and not feeling good.No rashes. Encounter Details Date Type Department Care Team (Late st Contact Info) Description 06/09/2022 3:30 PM CDT Office Visit Urgent Care, [facility], in [place], [place] [address] [place] [phone] Lela Aguiar, PSonaASona-C. [address] [place] [address] [phone] Anxiety (Primary Dx); Palpitations Discharge Disposition: Home [...] any clubs o r organizations such as episcopal groups, unions, fraternal or athletic groups, or [...] Answer Date Recorded PHQ-2 Score 0 12/10/2021 [facility] [place] of Occupat ional Health - Occupational [...] Morbid Obesity Body Mass Index 40.0-44.9 Adult ([facility]) 06/05/2021 Bleeding Postcoital 01/30/2022 Resolved Ambulatory Problems [...] test that needs to be sent to [place] and has a 4 day turnaround time. [...] Total Score: 3 04/23/19 22 8:30 AM ENGINEERING PROJECT MANAGER documented as of this encounter Care Teams Wind Farm Operations Manager Relationship Specialty Start Date End Date Elsewhere, Pcp PCP - General Internal Medicine 01/07/22 documented as of this encounter
--- OUTSIDE RECORDS SUMMARY | 2023-04-22 12:03 | XMS_ITS | Encounter Summary ---
Author Name Unknown Organization [facility] Address [address] [place] [address] Care Team Providers Care Material Loader Name Role Phone Elsewhere, Pcp Primary Care Provider Unavailabl e Reason for Visit * Reason Onset Date Comments Flank Pain 08/24/2022 Appt Request 08/24/2022 Encounter Details Date Type Department Care Team (Latest Contact Info) Description 08/24/2022 Clinical Communication Department of Urology in [place], [place] [address] [place] [phone] Elsewhere, Pcp Flank Pain; Appt [...] often do you attend chur ch or tenriism services? 1 to 4 times [...] Answer Date Recorded PHQ-2 Score 0 12/10/2021 [facility] - Occupational Stress Questionnaire Answer Date [...] follow up with PCP Dr. Lau in [facility] and he ordered a US of gallbladder. Pt states she does not need anything further at this time and disregard request to see Urology. documented in this encounter Plan of Treatment Not on file documented as of this encounter Visit Diagnoses Not on filedocumented in this encounter Additional Health Concerns Assessment Noted Time PHQ-9 Depression Total Score: 3 04/23/19 22 8:30 AM INSURANCE OPERATIONS REP documented as of this encounter Care Teams Material Loader Relationship Specialty Start Date End Date Elsewhere, Pcp PCP - General Internal Medicine 01/07/22 documented as of this encounter
--- OUTSIDE RECORDS SUMMARY | 2023-04-22 12:03 | XMS_ITS | Encounter Summary ---
Author Name Unknown Organization [facility] Address [address] [place] [address] Care Team Providers Care Dairy Farm Supervisor Name Role Phone Elsewhere, Pcp Primary Care Provider Unavailabl e Reason for Visit * Reason Comments Anxiety Patient reports feel ing shaky and anxious, which has starting after increasing her Zoloft to 75 mg. Encounter Details Date Type Department Care Team ([facility] st Contact Info) Description 06/09/2022 4:00 PM CDT - 06/09/2022 4:59 PM CDT Emergency [facility] [address] [place] [address] [phone] Jesus Manuel Rodriguez M.D. [address] [place] [phone] Anxiety (Primary Dx) Discharge Disposition: Home or [...] How often do you attend chur or pentecostal services? 1 to 4 times per year 04/03/2022 Do you belong to any clubs o r organizations such as jew groups, unions, fraternal or athletic groups, or [...] Answer Date Recorded PHQ-2 Score 0 12/10/2021 [facility] [place] of Occupat ional Health - Occupational Stress [...] OF 3200 MG IN 24 HOURS. 0 multivitamin tablet Take 1 tablet by mouth daily. 0 cyclobenzaprine (FLEXERIL) 10 mg tabletIndications:Pain Rib,Strain Back Muscle Subsequent Take 1 tablet (10 mg total) by mouth 3 (three) times a day as needed for muscle spasms for up to 10 days. for muscle spams 30 tablet 0 06/01/2022 LORazepam (ATIVAN) 1 mg tablet Take 0.5 tablets (0.5 mg total) by mouth at bedtime as needed for anxiety. 10 tablet 0 06/09/2022 spironolactone (ALDACTONE) 50 mg tablet Take 1 [...] Vaniqa 13.9 % topical cream 0 08/30/2022 mometasone (ELOCON) 0.1 % ointment as needed. 0 07/29/2021 08/30/2022 omeprazole (PriLOSEC) [address] capsule Take 20 mg by mouth daily. 0 05/13/2022 02/15/2023 sertraline (ZOLOFT) 50 mg tablet Take 75 mg by mouth daily. 0 05/13/2022 08/30/2022 metFORMIN (GLUCOPHAGE) 500 mg tablet TAKE 1 TABLET 3 TIMES A DAY BY ORAL ROUTE AFTER MEALS. 0 02/11/2022 08/30/2022 methylPREDNISolone (MEDROL DOSEPAK) 4 mg tabletIndications:Pain Rib,Strain Back Muscle Subsequent Follow package directions. 21 tablet 0 06/01/2022 08/30/2022 traMADoL (ULTRAM) 50 mg tablet TAKE [...] vomiting abdominal pain. History provided by: Patient hoop punch and coiler operator needed/used: no REVIEW OF SYSTEMS Constitutional: Positive [...] ride home currently, will prescribe lorazepam, can tile picker with local pharmacy, takes night, use over [...] Total Score: 3 04/23/19 22 8:30 AM CLERK ENTRY LEVEL documented as of this encounter Care Teams Dairy Farm Supervisor Relationship Specialty Start Date End Date Elsewhere, Pcp PCP - General Internal Medicine 01/07/22 documented as of this encounter
--- OUTSIDE RECORDS SUMMARY | 2023-04-22 12:03 | XMS_ITS | Encounter Summary ---
Author Name Unknown Organization [facility] Address [address] [place] [address] Care Team Providers Care Refrigerated National Truck Driver Name Role Phone Elsewhere, Pcp Primary Care Provider Unavailabl e Reason for Visit * Reason Comments Back Pain Awoke this am feelin g good then developed headache, nausea, and mid back pain, denies urinary symptoms, tylenol at 0730 Encounter Details Date Type Department Care Team (Late st Contact Info) Description 05/30/2022 8:55 AM CDT - 05/30/2022 12:[address] [facility] Emergency Department [address] [place] [phone] Wade Lawrence, PAfsaneh.-C., M.S. [address] [place] [address] [phone] Sinusitis (Primary Dx); Pain Chest Atypical Discharge [...] How often do you attend chur or yazidism services? 1 to 4 times per year 04/03/2022 Do you belong to any clubs o r organizations such as buddhist groups, unions, fraternal or athletic groups, or [...] Answer Date Recorded PHQ-2 Score 0 12/10/2021 [facility] [place] of Occupat ional Health - Occupational Stress [...] sent through Care Everywhere. * Sinusitis Adult (Argent[place]) documented in this encounter Medications at Time [...] Ketone Negative Bilirubin Negative pH 6.0 Specific [place] 1.018 Urobilinogen 0.2 White Blood Cells Occ-3 [...] AM CDT 05/30/2022 11:41 AM CDT Narrative [facility] - 05/30/2022 12:11 PM CDT Specimen Information: Specimen ID: [id number] Specimen Type: Blood Specimen Collection Start Date: 05/30/2022 11:34 AM Specimen Received Date: 05/30/2022 11:41 AM Specimen ID: [id number] Specimen Type: Blood Wade Lawrence P.A.-C., M.S. LAB BLOOD TR OPONIN [facility] [address] [place] [address], [facility] [place] [address] * DX Chest Portable 1 View (05/30/2022 [...] No acute findings. Wade Lawrence P.A.-C. M.SSona [facility] PROCEDURES * CT Abdomen [...] Anatomical Region Laterality Modality Head, Neuroradiology [facility] , Neuroradiology [facility], Neuroradiology [facility] N/A Computed Tomography 05/30/2022 10:4 2 [...] 8.0 05/30/2022 10:13 AM CDT MKTO Specific [place] 1.018 1.001 - 1.035 05/30/2022 10:13 AM [...] LAB URINE OR DERABLES Performing Organization Address City/[facility]/ZIP Co de Phone Number [facility] [address] [place] [address], [place] [address] * Test, POCT, Urine (lab) (05/30/2022 9:48 AM CDT) Test, POCT, U Negative 05/30/2022 10:19 AM CDT MKTO Urine (Urine, Midstream) 05/30/2022 9:48 AM CDT 05/30/2022 9:56 AM CDT Wade Lawrence P.A.-C. M.S. LAB POCT ORD ERABLES - DEVICE Performing Organization Address [facility] Co de Phone Number [facility] [address] [place] [address], [place] [address] * Troponin T, Baseline, 5th gen (05/30/2022 9:46 AM CDT) Troponin T, Baseline, 5th gen <6 <=10 ng/L 05/30/2022 10:23 AM CDT MKTO Blood (Blood, Venous) 05/30/2022 9:46 AM CDT 05/30/2022 10:01 AM CDT Wade Lawrence P.A.-C. MKarla LAB BLOOD TR OPONIN Performing Organization Address City/[facility]/ZIP Co de Phone Number [facility] [address] [place] [address] * Lipase (05/30/2022 9:46 AM CDT) Lipase, P 40 13 - 60 U/L 05/30/2022 10:22 AM CDT MKTO Blood (Blood, Venous) 05/30/2022 9:46 AM CDT 05/30/2022 10:01 AM CDT Wade Lawrence P.A.-C., M.S. LAB BLOOD AD D-ON Performing Organization Address City/[facility] Co de Phone Number [facility] [address] [place] [address], [place] [address] * (ABNORMAL) Comprehensive Metabolic Panel (05/30/2022 9:46 [...] Lawrence P.A.-C., M.S. LAB BLOOD AD D-ON [facility] [address] [place] [address], [facility] MKTO [facility] [place] [address] * CBC with Differential, Blood (05/30/2022 9:46 [...] Lawrence P.A.-C., M.S. LAB BLOOD AD D-ON [facility] [address] [place] [address], [facility] MKTO [facility] [place] [address] * ECG 12 Lead (05/30/2022 9:36 AM CDT) Ventricular Rate ECG/Min [address] Interval 132 ms MUSE QRSD Interval 88 ms MUSE QT Interval 384 ms MUSE QTC Interval 408 ms MUSE P [place] 60 degrees MUSE R [place] 11 degrees MUSE T Wave [place] 9 degrees MUSE 05/30/2022 9:36 AM CDT [...] Total Score: 3 04/23/19 22 8:30 AM ORCHID HAND documented as of this encounter Care Teams Refrigerated National Truck Driver Relationship Specialty Start Date End Date Elsewhere, Pcp PCP - General Internal Medicine 01/07/22 documented as of this encounter
--- OUTSIDE RECORDS SUMMARY | 2023-04-22 12:03 | XMS_ITS | Clinical Summary ---
Author Name Unknown Organization [place] Address [address] [place] [id number] Care Team Providers Care Estate Attorney Name Role Phone Teena Hargrove MD Primary Care Provider [phone] Seble Dickinson PA-C Unavailable [phone]- [phone] Allergies Active Allergy Reactions Criticality Noted Date [...] Active VANCE-D 12 HOUR## 60-120 MG OR [id number]:Allerg ic rhinitis, cause unspecified 1 TABLET TWICE [...] 108.9 kg (240 lb) 03/17/2020 12:[address] Height 167.6 cm (5' 6) 02/19/2019 2:[address] Body Mass Index 38.74 02/19/2019 2:[address] Plan of Treatment Health Maintenance Due Date [...] Comments URINE CULTURE Routine 04/08/2023 12:[address] Unspecified symptoms and signs involving the genitourinary system CBC WITH PLATELETS Routine 02/01/2023 10 :[address] Encounter for screening for diseases of the blood and blood-forming organs and certain disorders involving the immune mechanism LIPID PROFILE Routine 02/01/2023 10:[address] Encounter for screening for lipoid disorders HEMOGLOBIN A1C Routine 02/01/2023 10:[address] Encounter for screening for diabetes mellitus HPV HOLD (LAB ONLY) Routine 02/01/2023 1 0:[address] Encounter for screening for malignant neoplasm of cervix GYNECOLOGIC CYTOLOGY Routine 02/01/2023 10:[address] Encounter for screening for malignant neoplasm of cervix HPV HIGH RISK TYPES DNA CERVICAL Routine 02/01/2023 10:[address] Encounter for screening for malignant neoplasm of cervix from Last 3 Months Results * Urine Culture (04/08/2023 12:[address]) Culture <10,000 CFU/mL Urogenital alexis 04/10/2023 6:[address] [facility] Urine MID-STREAM URINE SPECIMEN / Unknown Non-blood Collection / Unknown 04/08/2023 12:[address] 04/08/2023 7:[address] Jericho Hernandez PA-C LAB - MICRO GEN ERAL ORDERABLES [facility] Inf. Diseases Diag. Lab [address] [facility], [address] [place] [address], [facility] [phone] * (ABNORMAL) Lipid Profile (02/01/2023 10:[address]) Cholesterol 198 <200 mg/dL 02/01/2023 2:[address] [facility] Triglycerides 102 <150 mg/dL 02/01/2023 2:[address] [facility] Direct Measure HDL 53 >=50 mg/dL 02/01/2023 2:[address] [facility] LDL Cholesterol Calculated 125(H) <=100 mg/dL 02/01/2023 2:[address] [facility] Non HDL Cholesterol 145(H) <130 mg/dL 02/01/2023 2:[address] [facility] Blood TOPOGRAPHY UNKNOWN / Unknown Client Draw / Unknown 02/01/2023 10:[address] 02/01/2023 1:[address] Narrative [facility] - 02/01/2023 2:[address] Cholesterol Desirable: ??<200 mg/dL Triglycerides Normal: ??Less [...] LAB - BLOOD ORD ERABLES [facility] [place] [facility] Lab [address] [facility], [address] [place] [address], [facility] [phone] * Hemoglobin A1c (02/01/2023 10:[address]) Hemoglobin A1C 5.2 <5.7 % 02/01/2023 1:[address] [facility] Comment: Normal <5.7% Prediabetes 5.7-6.4% ?? Diabetes 6.5% or higher Note: Adopted from ADA consensus guidelines. Blood TOPOGRAPHY UNKNOWN / Unknown Client Draw / Unknown 02/01/2023 10:[address] 02/01/2023 1:[address] Jericho Hernandez PA-C LAB - BLOOD ORD ERAEDWARD [facility] [place] [facility] Lab [address] [facility], [address] [place] [address], [facility] [phone] * (ABNORMAL) CBC with platelets (02/01/2023 10:[address]) WBC Count 8.4 4.0 - 11.0 10e3/uL 02/01/2023 1:[address] [facility] RBC Count 5.34(H) 3.80 - 5.20 10e6/uL 02/01/2023 1:[address] [facility] Hemoglobin 15.0 11.7 - 15.7 g/dL 02/01/2023 1:[address] [facility] Hematocrit 46.6 35.0 - 47.0 % 02/01/2023 1:[address] [facility] MCV 87 78 - 100 fL 02/01/2023 1:[address] [facility] MCH 28.1 26.5 - 33.0 pg 02/01/2023 1:[address] [facility] MCHC 32.2 31.5 - 36.5 g/dL 02/01/2023 1:[address] [facility] RDW 13.8 10.0 - 15.0 % 02/01/2023 1:[address] [facility] Platelet Count 330 150 - 450 10e3/uL 02/01/2023 1:[address] [facility] Blood BLOOD SPECIMEN / Unknown Client Draw / Unknown 02/01/2023 10:[address] 02/01/2023 1:[address] Jericho Hernandez PA-C LAB - BLOOD ORD ERABLES [facility] [place] [facility] Lab [address] [facility] [address], [address] [place] [address], [facility] [phone] * HPV Hold (Lab Only) (02/01/2023 10:[address]) Brushing CERVIX UTERI STRUCTURE / Unknown Non-blood Collection / Unknown 02/01/2023 10:[address] 02/04/2023 8:[address] Jericho [facility] [address] [facility] [address] [facility], [address] [place] [address], [facility] [phone] * Gynecologic Cytology (PAP) (02/01/2023 10:[address]) Interpretation Negative for Intraepithelial Lesion or Malignancy (NILM) 02/03/2023 9:[address] [facility] Comment Papanicolaou Test Limitations: Cervical cytology is a screening test with limited sensitivity, and regular screening is critical for cancer prevention. Pap tests are primarily effective for the diagnosis/prevent ion of squamous cell carcinoma, not adenocarcinoma or other cancers. 02/03/2023 9:[address] [facility] Specimen Adequacy Satisfactory for evaluation, endocervical/wilkes sformation zone component present 02/03/2023 9:[address] [facility] Clinical Information none 02/03/2023 9:[address] [facility] LMP/Menopause Date 01-24-2023 02/03/2023 9:[address] [facility] Reflex Testing Yes regardless of result 02/03/2023 9:[address] [facility] Previous Abnormal? No 02/03/2023 9:[address] [facility] Previous Abnormal Diagnosis NILM with NEG HPV 02/03/2023 9:[address] [facility] Performing Labs The technical component of this testing was completed at [facility] 02/03/2023 9:[address] [facility] Brushing CERVIX UTERI STRUCTURE / Unknown 02/01/2023 10:[address] 02/01/2023 1:[address] Jericho Cruz BEZAHRA [facility] Specialty Lab 500 [facility], [address] [address], [facility] [phone] * HPV High Risk Types DNA Cervical (02/01/2023 10:[address]) Other HR HPV Negative Negative 02/04/2023 3:[address] [facility] HPV16 DNA Negative Negative 02/04/2023 3:[address] [facility] HPV18 DNA Negative Negative 02/04/2023 3:[address] [facility] FINAL DIAGNOSIS This patient's sample is negative for HPV DNA. This test was developed and its performance characteristics determined by the [facility], Molecular Diagnostics Laboratory. It has not been [...] clinical followup is recommended. 02/04/2023 3:[address] [facility] Brushing CERVIX UTERI STRUCTURE / Unknown Non-blood Collection / Unknown 02/01/2023 10:[address] 02/04/2023 8:[address] Jericho Bere Hernandez PA-C LAB - BLOOD ORD ERABLES [facility] [address] [facility] [address], [address] [place] [address], [place] [phone] from Last 3 Months Care Teams Estate Attorney Relationship Specialty Start Date End Date Teena Hargrove MD [address] [place], [place] [id number] PCP - General regulatory affairs assistant 03/17/20 Seble Dickinson PA-C [address] [place], [place] [id number] Physician Group Director Urology 08/24/22
--- OUTSIDE RECORDS SUMMARY | 2023-04-22 12:04 | XMS_ITS | Referral Summary ---
Author Name Unknown Organization [place] Address [address] [place] [address] Care Team Providers Care Housing Court Judge Name Role Phone Teena Hargrove MD Primary Care Provider [phone] Seble Dickinson PA-C Unavailable +1- [phone] Allergies Active Allergy Reactions Criticality Noted Date [...] subst flonase if needed) 1 05/18/2007 Active AVNCE-D 12 HOUR## 60-120 MG OR [id number]:Allerg ic rhinitis, cause unspecified 1 TABLET TWICE [...] 108.9 kg (240 lb) 03/17/2020 12:13 PM [employer] [employer] Height 167.6 cm (5' 6) 02/19/2019 2:39 PM [facility] [employer] Body Mass Index 38.74 02/19/2019 2:39 PM [employer] Plan of Treatment Not on file Procedures Procedure Name Priority Date/Time Associated Diagnosis Comments URINE CULTURE Routine 04/08/2023 12:29 PM [employer] Unspecified symptoms and signs involving the genitourinary system CBC WITH PLATELETS Routine 02/01/2023 10 :25 AM [facility] Encounter for screening for diseases of the blood and blood-forming organs and certain disorders involving the immune mechanism LIPID PROFILE Routine 02/01/2023 10:25 AM [facility] Encounter for screening for lipoid disorders HEMOGLOBIN A1C Routine 02/01/2023 10:25 AM [employer] Encounter for screening for diabetes mellitus HPV HOLD (LAB ONLY) Routine 02/01/2023 1 0:00 AM [facility] [employer] Encounter for screening for malignant neoplasm of cervix GYNECOLOGIC CYTOLOGY Routine 02/01/2023 10:00 AM [employer] Encounter for screening for malignant neoplasm of cervix HPV HIGH RISK TYPES DNA CERVICAL Routine 02/01/2023 10:00 AM [employer] Encounter for screening for malignant neoplasm of cervix from Last 3 Months Results * Urine Culture (04/08/2023 12:29 PM [employer]) Culture <10,000 CFU/mL Urogenital alexis 04/10/2023 6:05 AM [facility] [facility] Urine MID-STREAM URINE SPECIMEN / Unknown Non-blood Collection / Unknown 04/08/2023 12:29 PM [employer] 04/08/2023 7:55 PM [employer] Jericho Hernandez PA-C LAB - MICRO GEN ERAL ORDERABLES [facility] Inf. Diseases Diag. Lab [address] [facility], [address] [place] [address], [facility] [phone] * (ABNORMAL) Lipid Profile (02/01/2023 10:25 AM [facility]) Cholesterol 198 <200 mg/dL 02/01/2023 2:46 PM [facility] [employer] [facility] Triglycerides 102 <150 mg/dL 02/01/2023 2:46 PM [employer] [facility] Direct Measure HDL 53 >=50 mg/dL 02/01/2023 2:46 PM [employer] [facility] LDL Cholesterol Calculated 125(H) <=100 mg/dL 02/01/2023 2:46 PM [employer] [facility] Non HDL Cholesterol 145(H) <130 mg/dL 02/01/2023 2:46 PM [employer] [facility] Blood TOPOGRAPHY UNKNOWN / Unknown Client Draw / Unknown 02/01/2023 10:25 AM [employer] 02/01/2023 1:09 PM [employer] Narrative [facility] - 02/01/2023 2:46 PM [employer] Cholesterol Desirable: ??<200 mg/dL Triglycerides Normal: ??Less [...] LAB - BLOOD ORD ERABLES [facility] [place] [facility] Lab [address] [facility], [address] [place] [address], [facility] [phone] * Hemoglobin A1c (02/01/2023 10:25 AM [facility]) Hemoglobin A1C 5.2 <5.7 % 02/01/2023 1:39 PM [facility] [employer] [facility] Comment: Normal <5.7% Prediabetes 5.7-6.4% ?? Diabetes 6.5% or higher Note: Adopted from ADA consensus guidelines. Blood TOPOGRAPHY UNKNOWN / Unknown Client Draw / Unknown 02/01/2023 10:25 AM [facility] 02/01/2023 1:08 PM [employer] Jericho Hernandez PA-C LAB - BLOOD ORD ERABLES [facility] [place] [facility] [address] [facility], [address] [place] [address], [facility] [phone] * (ABNORMAL) CBC with platelets (02/01/2023 10:25 AM [facility]) WBC Count 8.4 4.0 - 11.0 10e3/uL 02/01/2023 1:28 PM [facility] [employer] [facility] RBC Count 5.34(H) 3.80 - 5.20 10e6/uL 02/01/2023 1:28 PM [facility] [facility] Hemoglobin 15.0 11.7 - 15.7 g/dL 02/01/2023 1:28 PM [employer] [employer] [facility] Hematocrit 46.6 35.0 - 47.0 % 02/01/2023 1:28 PM [employer] [facility] MCV 87 78 - 100 fL 02/01/2023 1:28 PM [employer] [facility] MCH 28.1 26.5 - 33.0 pg 02/01/2023 1:28 PM [employer] [facility] MCHC 32.2 31.5 - 36.5 g/dL 02/01/2023 1:28 PM [employer] [facility] RDW 13.8 10.0 - 15.0 % 02/01/2023 1:28 PM [facility] [facility] Platelet Count 330 150 - 450 10e3/uL 02/01/2023 1:28 PM [employer] [facility] Blood BLOOD SPECIMEN / Unknown Client Draw / Unknown 02/01/2023 10:25 AM [employer] 02/01/2023 1:08 PM [employer] Jericho Hernandez PA-C LAB - BLOOD ORD ERAEDWARD [facility] [place] [facility] 500 [facility] [address], [address] [place] [address], [facility] [phone] * HPV Hold (Lab Only) (02/01/2023 10:00 AM [facility]) Brushing CERVIX UTERI STRUCTURE / Unknown Non-blood Collection / Unknown 02/01/2023 10:00 AM [facility] 02/04/2023 8:08 AM [employer] Jericho [facility] [address] [facility] [address] [facility], [address] [place] [address], [facility] [phone] * Gynecologic Cytology (PAP) (02/01/2023 10:00 AM [facility]) Interpretation Negative for Intraepithelial Lesion or Malignancy (NILM) 02/03/2023 9:28 AM [facility] Comment Papanicolaou Test Limitations: Cervical cytology is a screening test with limited sensitivity, and regular screening is critical for cancer prevention. Pap tests are primarily effective for the diagnosis/prevent ion of squamous cell carcinoma, not adenocarcinoma or other cancers. 02/03/2023 9:28 AM [facility] [employer] [facility] Specimen Adequacy Satisfactory for evaluation, endocervical/wilkes sformation zone component present 02/03/2023 9:28 AM [facility] Clinical Information none 02/03/2023 9:28 AM [facility] LMP/Menopause Date 01-24-2023 02/03/2023 9:28 AM [facility] Reflex Testing Yes regardless of result 02/03/2023 9:28 AM [facility] Previous Abnormal? No 02/03/2023 9:28 AM [facility] [employer] Previous Abnormal Diagnosis NILM with NEG HPV 02/03/2023 9:28 AM [facility] [employer] Performing Labs The technical component of this testing was completed at [facility] 02/03/2023 9:28 AM [facility] Brushing CERVIX UTERI STRUCTURE / Unknown 02/01/2023 10:00 AM [facility] 02/01/2023 1:15 PM [employer] Jericho Cruz [facility] Specialty Lab 500 [facility], [address] [address], [facility] [phone] * HPV High Risk Types DNA Cervical (02/01/2023 10:00 AM [employer]) Other HR HPV Negative Negative 02/04/2023 3:03 PM [facility] HPV16 DNA Negative Negative 02/04/2023 3:03 PM [facility] [employer] HPV18 DNA Negative Negative 02/04/2023 3:03 PM [facility] [employer] FINAL DIAGNOSIS This patient's sample is negative for HPV DNA. This test was developed and its performance characteristics determined by the [facility], Molecular Diagnostics Laboratory. It has not [...] clinical followup is recommended. 02/04/2023 3:03 PM [facility] [employer] [facility] Brushing CERVIX UTERI STRUCTURE / Unknown Non-blood Collection / Unknown 02/01/2023 10:00 AM [employer] 02/04/2023 8:08 AM [employer] Jericho Hernandez PA-C LAB - BLOOD ORD ERABLES [facility] [address] [facility] [address], [address] [place] [address], [place] [phone] from Last 3 Months Care Teams Housing Court Judge Relationship Specialty Start Date End Date Teena Hargrove MD [facility] [facility] [address] [place] [address] PCP - General community health consultant 03/17/20 Seble Dickinson PA-C [address] [place] [address] 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
--- OUTSIDE RECORDS SUMMARY | 2023-04-22 12:04 | XMS_ITS | Continuity of Care Document ---
Author Name Unknown Address [address] [place] [address] Phone [phone] Organization [facility] LOAN ADVISER, [id number] Address [address] [facility] [address] [place] [address] Care Team Providers Care Desktop Manager Name Role Phone WALLY TEENA Dental Scheduler NORMA MCNULTY Primary Care Provider [phone] Assessment No assessment recorded. Plan of Treatment Reminders Order Date Submit Date Provider Last Modified By Organization Details Last Modified Time Details Appointments None recorde d. Lab urinaly sis, dipstic k, auto 024 04/08/19 24 apetersen3 5 Ol409_lpachda rtners_yanethmonroea le, [address] [facility], [address], [place], [address], 4 13:33:54 culture , urine 024 04/08/19 24 [facility], [address] [place] [address], [id number], [place], [address], 4 07:07:53 Referral None recorde d. Procedures None recorde d. Surgeries None recorde d. Imaging None recorde d. Medication Orders None recorde d. Patient TargetsNo targets recorded. Patient Instructions Encounter Date Encounter Id Patient Instructions Last Modified By Organization Details Last Modified Time 04/08/2023 [id number] Sent Urine Culture. Will call pt with results. Always wipe from front to back. Urinate immediately after intercourse. Increase PO hydration. Drink unsweetened cranberry juice. All questions answered. [email or web address] Not available 04/08/2023 15:08:08 Reason for Referral Maternal & Medicine Re ferral for consult- ECHOGENIC AREA HEART NOTED AT [facility] Referring Physician: Teena Hargrove, LOAN ADVISER, Encounter Date: 04/09/2020 Results Created Date Observation Date Name Description Value Unit Range Abnormal Flag LastModifiedBy Organization Detail LastModifiedTime 04/08/19 24 04/08/2023 urina lysis , dipst ick, auto Unknown Analyte Clean Catch Not Available By312_scajfpn shai [address], [place], [address], 04/08/2023 12:58:00 04/08/19 24 04/08/2023 urina lysis , dipst ick, auto Unknown Analyte negati ve Not Available Wo989_xaxmhbk [facility] [address], [place], [address], 04/08/2023 12:58:00 04/08/19 24 04/08/2023 urina lysis , dipst ick, auto Unknown Analyte negati ve Not Available Zn879_dplplhh [facility] [address], [place], [address], 04/08/2023 12:58:00 04/08/19 24 04/08/2023 urina lysis , dipst ick, auto Unknown Analyte negati ve Not Available Vo782_stuikfl [facility] [address], [place], [address], 04/08/2023 12:58:00 04/08/19 24 04/08/2023 urina lysis , dipst ick, auto Unknown Analyte 1.010 Not Available Xe688_jmcwl pa ledy[address], [place], [address], 04/08/2023 12:58:00 02/01/20 24 04/08/2023 urina lysis , dipst ick, auto Unknown Analyte negati ve Not Available Cc338_njsnpef shai [address], [place], [address], 04/08/2023 12:58:00 04/08/19 24 04/08/2023 urina lysis , dipst ick, auto Unknown Analyte 7.0 Not Available Tb845_ndahs [facility] [address], [place], [address], 04/08/2023 12:58:00 04/08/19 24 04/08/2023 urina lysis , dipst ick, auto Unknown Analyte negati ve Not Available Fg380_nxiymwf [facility] [address], [place], [address], 04/08/2023 12:58:00 04/08/19 24 04/08/2023 urina lysis , dipst ick, auto Unknown Analyte 0.2 Not Available Yk337_ivver pa rtmanuel [address], [place], [address], 04/08/2023 12:58:00 04/08/19 24 04/08/2023 urina lysis , dipst ick, auto Unknown Analyte negati ve Not Available Xq187_huucdxq shai [address], [place], [address], 04/08/2023 12:58:00 04/08/19 24 04/08/2023 urina lysis , dipst ick, auto Unknown Analyte modera te Not Available Gb391_yxotyaa [facility] [address], [place], [address], 04/08/2023 12:58:00 04/08/19 24 04/08/2023 urina lysis , dipst ick, auto Unknown Analyte yellow Not Available Te969_qpikm pa shai le [address] [facility] [address], [place], [address], 04/08/2023 12:58:00 04/08/19 24 04/08/2023 urina lysis , dipst ick, auto Unknown Analyte slight ly cloudy Not Available Dn856_iyzfavd shai le [address] [facility] [address], [place], [address], 04/08/2023 12:58:00 Result Notes None recorded. Problems Name Status Onset Date Resolution Date Notes Provider Name and Address Organization Details Recorded Time History of section Active 07/30/19 21 Blake Bustos null, [place] - [facility] LOAN ADVISER 07/29/2020 17:15:34 Multigravida of advanced maternal age Active 07/30/19 21 Blake cunningham, [place] - [facility] LOAN ADVISER 07/29/2020 17:15:41 Vitamin D deficiency Active Not Available [facility] 10/12/2019 05:10:31 Problem Notes None recorded. Procedures Surgical History Date Name Laterality Status Provider Name and Address Organization Details Recorded Time 3 Date of Last Mammogram completed Olga Dow (TERMED) null, [place] - [facility]AN ADVISER 07/01/2022 15:05:23 2 Date of Last Pap Smear completed Raegan Song null, [place] - [facility] 01/26/2023 12:30:03 8 section completed Not Available [facility] 10/12/2019 05:09:17 Imaging Results None recorded. [...] completed Not Available Not Available Not Available doxycycline hyclate 100 mg tablet TAKE 1 TABLET BY MOUTH TWICE DAILY active Not Available Not Available No t Available dicyclomine 10 mg capsule TAKE 1 [...] Details Last Updated DateTime 4 167.64 cm 33.6 kg/m2 50041.2 1 g 72 /min 124 mm[Hg] 85 mm[Hg] [place] LOAN ADVISER 4 13:02:56 Social History Question Answer Notes LastModified by Organizat ion Details LastModified Time Tobacco Smoking Status Never Smoker Tobacco *Status: Never Not Available [facility] 10/16/2019 11:59:10 Do You Have An Advance Directive? No Does Not Have A Health Directive Information not available 10/16/2019 What Is Your Level Of Alcohol Consumption? Occasional Socially Information not available 02/01/2023 How Many Times Per Week Do You Consume Alcohol? Less Than 1 Time Per Week Information not available 02/01/2023 Is Blood Transfusion Acceptable In An Emergency? Yes [email or web address] Information not available 01/26/2022 What Is Your Level Of Caffeine Consumption? None Information not available 02/01/2023 Are You Currently Employed? Yes [email or web address] Information not available 01/26/2022 What Type Of Diet Are You Following? GLUTENFREE No Sugar And Dairy Information not available 02/01/2023 What Is The Highest Grade Or Level Of School You Have Completed Or The Highest Degree You Have Received? 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 Less Than 1 Time Per Week Information not available 02/01/2023 History Of Domestic Violence No Denies Any History Of Domestic Violence Information not available 10/16/2019 Spouse/Partners Name Sekou Rivas Information not available 02/01/2023 Ethnic Background White Or [email or web address] Information not available 01/26/2022 Are You Passively Exposed To Smoke? No Information not available 02/01/2023 Performs Monthly Self-breast Exam? No Does Not Perform Monthly Breast Exams Information not available 01/21/2021 What Is Your Relationship Status? Information not available 01/26/2022 Are You Sexually Active? Yes Currently Sexually Active Information not available 01/21/2021 Do You Use Any Illicit Or Recreational Drugs? No Information not available 02/01/2023 Has Tobacco Cessation Counseling Been Provided? Yes Information not available 02/01/2023 On What Date Was Tobacco Cessation Counseling Provided? 02/01/2023 Information not available 02/01/2023 Are You Currently In School? No [email or web address] Information not available 01/26/2022 Sex: Female Functional [...] Recorded Time Tdap 07/23/2020 completed [place] Duque [facility] LOAN ADVISER 07/23/2020 15:22:22 Tdap 11/22/2017 completed Not Available [facility] 05:09:39 Tdap 01/15/2014 completed Not Available [facility] 05:09:39 influenza, injectable, quadrivalent, preservative free 11/22/2017 completed [place] Britton [facility] LOAN ADVISER 01/21/2021 11:39:02 Past Encounters Encounter ID Performer Location Encounter Start Date Encounter Closed Date Diagnosis/Indication [id number] MAURISIO FRAIRE PA-C [id number] [address] 04/02/2023 12:55:29 04/05/2023 13:42:55 Vaginitis Urinary symptoms [id number] MAURISIO FRAIRE PA-C [id number] [address] 04/08/2023 12:44:47 04/08/2023 15:33:25 Urinary symptoms Health Concerns Section Related Observation LastModified by Organization Detai ls LastModified Time None Recorded Concern Status LastModified by Organization Details LastModified Time None Recorded Payers Encounter Date Sequence Insurance Name Policy Number Policy Silva Covered Member ID Silva Member ID Guarantor Name 04/08/2023 1 [facility] - [facility] [id number] Shirley Rivas [id number] Henny Rivas Notes Date Note Type Note Provider Name and Address Organization Details Recorded Time 04/08/2023 text/html HPI Notes: Vaginal/ Vulvar Problem ([facility]) Reported by patient. Referred By: other * Location: external; vaginal * Quality: itching; burning; pain; back pain * Severity: moderate * Duration: 1 months * Timing: recurrent * Context: recent antibiotics (cipro for uti, last dose mon night per pt); previous vaginitis (BV dx on 04/02/2023, pt hasn't started txt for this yet) * Associated Signs & Symptoms: no fever/chills; urinary symptoms; no vulvar lesion; no odor; itching; burning; abdomen and left flank pain, sharp per pt Pt presents to clinic to follow up after completing Cipro for a UTI. Pt as also diagnosed with BV on 04/02 and hasn't started treatment for that yet. She reports some continued abdominal pain and lower back pain. Also, she has vaginal burning and itching. She will start the meds for vaginitis now but would like to make sure her bladder infection has resolved. MAURISIO FRAIRE PA-C [id number] [facility],[address], [place], [address], [place] - [facility] LOAN ADVISER 04/08/2023 15:08:47 OBGyn Episode No OBEpisode recorded.
--- OUTSIDE RECORDS SUMMARY | 2023-04-22 12:04 | XMS_ITS | Continuity of Care Document ---
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 Plan of Treatment Reminders Order Date Submit Date Provider Last Modified By Organization Details Last Modified Time Details Appointments None recorded. Lab urinalysis, dipstick, auto 2022 023 apetersen 35 Oh435_jyccyuu rtners_ziona le, [address] [facility], [place] [address], [place], [address], 3 13:45:18 bacterial vaginosis + vaginitis panel, vaginal 2022 023 BELTRAN Yb376_dtirodf rtners_ziona le, [address] [place] [address], [address] [place] [address], [address], 3 14:41:00 Referral None recorded. Procedures None recorded. Surgeries None recorded. Imaging None recorded. Medication Orders clindamycin HCl 300 mg capsule 2022 023 adzihic [facility], [address] [place] [address], [place], [address], 4 13:07:00 Metrogel Vaginal 0.75 % (37.5 mg/5 gram) 2022 023 adzihic [facility], [address], [place], [address], 13:07:10 Patient TargetsNo targets recorded. Patient Instructions Encounter Date Encounter Id Patient Instructions Last Modified By Organization Details Last Modified Time 02/12/2023 [id number] Sent BDAffirm. Notified pt swab is positive for BV and sent script. Plan to treat and then can try MetroGel 1-2x/wk maintenance to prevent reoccurance. Cotton underware only. Do no wear underware at night. Avoid feminine wipes, douches, pantyliner use. Change clothes immediately after exercising. All questions answered. [email or web address] Not available 02/12/2023 15:04:28 Reason for Referral Maternal & Medicine Re ferral for consult- ECHOGENIC AREA HEART NOTED AT [facility] Referring Physician: Teena Lo, AUTOMOBILE DESIGNER, Encounter Date: 04/09/2020 Results Created Date Observation Date Name Description Value Unit Range Abnormal Flag LastModifiedBy Organization Detail LastModifiedTime 02/13/2002/12/2023 bacte rial vagin osis + vagin itis panel , vagin al gardnerella positi ve negati ve abnormal Not Available Os486_wegczyf arnoldo[address], [address], 02/12/2023 11:30:51 02/13/20 23 02/12/2023 bacte rial vagin osis + vagin itis panel , vagin al trichomonas negati ve negati ve normal Not Available Rn649_atelmtb [address], [address], 02/12/2023 11:30:51 02/13/20 23 02/12/2023 bacte rial vagin osis + vagin itis panel , vagin al avery negati ve negati ve normal Not Available Ut048_lhgcimv shai [address], [place], [address], 02/12/2023 11:30:51 02/13/20 23 02/12/2023 urina lysis , dipst ick, auto Unknown Analyte Clean Catch Not Available Ko331_ilvjbfx shai [address], [place], [address], 02/12/2023 11:30:42 02/13/20 23 02/12/2023 urina lysis , dipst ick, auto Unknown Analyte negati ve Not Available Wh897_vdefokt shai [address], [place], [address], 02/12/2023 11:30:42 02/13/20 23 02/12/2023 urina lysis , dipst ick, auto Unknown Analyte negati ve Not Available Ku159_pdanchs shai [address], [place], [address], 02/12/2023 11:30:42 02/13/20 23 02/12/2023 urina lysis , dipst ick, auto Unknown Analyte negati ve Not Available Fk276_lcnziuh shai [address], [place], [address], 02/12/2023 11:30:42 02/13/20 23 02/12/2023 urina lysis , dipst ick, auto Unknown Analyte 1.020 Not Available Sn695_xhjzl debra shai [address], [place], [address], 02/12/2023 11:30:42 02/13/20 23 02/12/2023 urina lysis , dipst ick, auto Unknown Analyte negati ve Not Available Kv421_jfrnbpr shai [address], [place], [address], 02/12/2023 11:30:42 02/13/20 23 02/12/2023 urina lysis , dipst ick, auto Unknown Analyte 7.5 Not Available Nr435_uzqwx debra rtmanuel [address], [place], [address], 02/12/2023 11:30:42 02/13/20 23 02/12/2023 urina lysis , dipst ick, auto Unknown Analyte negati ve Not Available Cv333_erohmmgmonique gibbons [address], [place], [address], 02/12/2023 11:30:42 02/13/20 23 02/12/2023 urina lysis , dipst ick, auto Unknown Analyte negati ve Not Available Ny999_peksxfhmonique gibbons [address], [place], [address], 02/12/2023 11:30:42 02/13/20 23 02/12/2023 urina lysis , dipst ick, auto Unknown Analyte negati ve Not Available Al177_piktrytmonique gibbons [address], [place], [address], 02/12/2023 11:30:42 02/13/20 23 02/12/2023 urina lysis , dipst ick, auto Unknown Analyte dark yellow Not Available Pc973_jjpnzid shai [address], [place], [address], 02/12/2023 11:30:42 02/13/20 23 02/12/2023 urina lysis , dipst ick, auto Unknown Analyte slight ly cloudy Not Available Hl683_wyvcqzz rtners_fartun le [address] [facility] [address], [place], [address], 02/12/2023 11:30:42 Result Notes None recorded. 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 Procedures Surgical History Date Name Laterality Status Provider Name and Address Organization Details Recorded Time 3 Date of Last Mammogram completed Olga Dow (TERMED) null, [place] [facility] 07/01/2022 15:05:23 2 Date of Last Pap Smear completed Raegan Zamudiosalmamarlon null, [place] - [facility] [employer]OMOBILE DESIGNER 01/26/2023 12:30:03 8 section completed Not Available [facility] 10/12/2019 05:09:17 Imaging Results None recorded. Procedure [...] Not Available No t Available amoxicillin 875 mg-mikeu m clavulanate 125 mg tablet TAKE 1 [...] Updated DateTime 3 167.64 cm 35.1 kg/m2 10203.7 g 63 /min 114 mm[Hg] 75 mm[Hg] Raegan [place] - AUTOMOBILE DESIGNER 3 13:26:28 Social History Question Answer Notes [...] Blood Transfusion Acceptable In An Emergency? Yes [email or web address] Information not available 01/26/2022 What Is Your Level Of Caffeine Consumption? None Information not available 02/01/2023 Are You Currently Employed? Yes [email or web address] Information not available 01/26/2022 What Type Of Diet Are You Following? GLUTENFREE No Sugar And Dairy Information not available 02/01/2023 What Is The Highest Grade Or Level Of School You Have Completed Or The Highest Degree You Have Received? 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 Less Than 1 Time Per Week Information not available 02/01/2023 History Of Domestic Violence No Denies Any History Of Domestic Violence Information not available 10/16/2019 Spouse/Partners Name Sekou Rivas Information not available 02/01/2023 Ethnic Background White Or [email or web address] Information not available 01/26/2022 Are You Passively Exposed To Smoke? No Information not available 02/01/2023 Performs Monthly Self-breast Exam? No Does Not Perform Monthly Breast Exams Information not available 01/21/2021 What Is Your Relationship Status? [email or web address] Information not available 01/26/2022 Are You Sexually Active? Yes Currently Sexually Active Information not available 01/21/2021 Do You Use Any Illicit Or Recreational Drugs? No Information not available 02/01/2023 Has Tobacco Cessation Counseling Been Provided? Yes Information not available 02/01/2023 On What Date Was Tobacco Cessation Counseling Provided? 02/01/2023 Information not available 02/01/2023 Are You Currently In School? No [email or web address] Information not available 01/26/2022 Sex: Female Functional [...] Recorded Time Tdap 07/23/2020 completed K[place]STA Duque AUTOMOBILE DESIGNER 07/23/2020 15:22:22 Tdap 11/22/2017 completed Not Available [facility] 05:09:39 Tdap 01/15/2014 completed Not Available [facility] 05:09:39 influenza, injectable, quadrivalent, preservative free 11/22/2017 completed [place] Britton AUTOMOBILE DESIGNER 01/21/2021 11:39:02 Past Encounters Encounter ID Performer Location Encounter Start Date Encounter Closed Date Diagnosis/Indication [id number] MAURISIO FRAIRE PA-C [id number] VALLE [address] [facility] [place] [facility] [place] [address] 02/01/2023 09:42:59 02/01/2023 13:58:01 Screening for malignant neoplasm of cervix Diabetes mellitus screening Hyperlipidemia screening Gynecologic examination Anemia screening Vaginal irritation Obesity Female hirsutism [id number] MAURISIO FRAIRE PA-C [id number] VALLE [address] [place] [address],[facility] [address] [place] [address] 02/12/2023 13:16:17 02/12/2023 15:10:47 Vaginitis Health Concerns Section Related Observation LastModified by Organization Detai ls LastModified Time None Recorded Concern Status LastModified by Organization Details LastModified Time None Recorded Payers Encounter Date Sequence Insurance Name Policy Number Policy Silva Covered Member ID Silva Member ID Guarantor Name 02/12/2023 1 [facility] [employer] [facility] - [facility] [id number] Shirley Rivas [id number] Henny Rivas Notes Date Note Type Note [...] dysuria, frequency, urgency, odor. MAURISIO FRAIRE PA-C [address] [facility],[address], [place], [address], [place] - [facility] AUTOMOBILE DESIGNER 02/12/2023 15:04:54 OBGyn Episode No OBEpisode recorded.
[2023-04-22 19:01] LABS: Bacterial Vaginosis* Not Detected (No Detected); Candida glab/krus Not Detected (No Detected); Candida species Not Detected (No Detected); Trichomonas vaginalis Not Detected (No Detected)
[2023-04-23 02:46] LABS: Chlamydia DNA Amplified* Not Detected (No Detected)
[2023-04-23 02:47] LABS: GC DNA Amplified* Not Detected (No Detected)
== END 2023-04-22 11:32 | disposition home or self-care (01) ==
PROVIDERS: PCP Family Medicine; Visit Provider Physician Assistant
DX: N89.8 Other specified noninflammatory disorders of vagina (principal)
CPT/HCPCS: 81513; 87481; 87491; 87591; 87661

== ENCOUNTER 2023-04-23 11:35 | Outpatient (REF) | payer OTHER, SELFPAY ==
--- OUTSIDE RECORDS SUMMARY | 2023-04-25 08:11 | XMS_ITS ---
Author Name Unknown Organization [facility] Address [address] [place] [address] Care Team Providers Care Candle Making Supervisor Name Role Phone Unavailable Unavailable Unavailable Surgery Details Not on file Complications Check Surgery Details section. Procedure Estimated Blood Loss Check Surgery Details section. Procedure Findings Check Surgery Details section. Procedure Specimens Taken Check Surgery Details section.
--- OUTSIDE RECORDS SUMMARY | 2023-04-25 08:11 | XMS_ITS | Clinical Summary ---
Author Name Unknown Organization [facility] Address [address] [place] [address] Care Team Providers Care Taper Machine Name Role Phone Elsewhere, Pcp Primary Care Provider Unavailabl e Source Comments Patient records contain information from all sites at [facility]. For routine questions regarding patient records, call [phone] during business hours, M-F 8:00 AM - 5:00 PM Central Time. Record requests for emergency care only can be directed to [phone] at any time.[facility] Allergies No known active allergies [...] Team Description 03/30/2023 Orders Only Urgent Care, [facility], [address] [address] Mario Valle P.A.-CSona Urinary Tract Infection Site Not Specified (Primary Dx) 03/27/2023 10:14 AM LOGISTICS COORDINATOR - 03/27/2023 11:59 PM LOGISTICS COORDINATOR Hospital Encounter Department of Radiology in [address] [address] Mario Valle P.ASona-CSona Abdominal Pain Discharge Disposition: Home or Self Care 03/27/2023 9:00 AM LOGISTICS COORDINATOR Office Visit Urgent Care, [facility], in [address] [address] Mario Valle P.ASona-CSona Abdominal Pain (Primary Dx) Discharge Disposition: Home or Self Care 03/25/2023 9:23 AM LOGISTICS COORDINATOR - 03/25/2023 11:59 PM LOGISTICS COORDINATOR Hospital Encounter Department of Radiology, [facility], in [address] [address] Ronal Henderson M.D. Johnson, David W, M.D. Pain Left Lower Quadrant Discharge Disposition: Home or Self Care 03/12/2023 8:27 AM LOGISTICS COORDINATOR - 03/12/2023 9:04 AM [facility] Emergency [place] [facility] [address] [place] [phone] Wendy Calzada D.O. Dysphagia (Primary Dx); Foreign Body Swallowed Initial Discharge Disposition: Home or Self Care 03/11/2023 8:53 PM LOGISTICS COORDINATOR - 03/12/2023 2:30 AM [facility] Emergency [place] [facility] [address] [place] [phone] Boyd Lynn M.D. Lightheadedness (Primary Dx) Discharge Disposition: Home or Self Care 03/10/2023 8:44 AM LOGISTICS COORDINATOR - 03/10/2023 11:[address] [facility] Emergency Department [address] [place] [phone] Jesus Manuel Hensley M.D. Influenza Like Illness (Primary Dx); Dehydration; Hypokalemia Discharge Disposition: Home or Self Care 03/08/2023 1:52 PM LOGISTICS COORDINATOR - 03/08/2023 4:01 PM [facility] Emergency [facility] Emergency Department [address] [place] [address] Ronal Henderson M.D. Pain Left Lower Quadrant (Primary Dx); Pain Left Upper Quadrant; Abdominal Pain Discharge Disposition: Home or Self Care 03/08/2023 Nurse Triage [facility] Department of Family Medicine in [place], [place] [address] [facility] [place] [phone] Suha Lea RSonaN. Med Question 03/02/2023 Clinical Communication Division of Gastroenterology in [place], [place] [address] [place] [address] Thaddeus Cosme M.D., Ph.D. 02/15/2023 1:45 PM [facility] Office Visit Urgent Care, [facility], in [place], [place] [address] [place] [address] Lela Aguiar P.A.-C. Pain Epigastric (Primary Dx) [...] often do you attend chur ch or sikh services? 1 to 4 times per year [...] Answer Date Recorded PHQ-2 Score 0 12/10/2021 [facility] - Occupational Stress [...] Comments Blood Pressure 117/81 03/27/2023 8:42 AM LOGISTICS COORDINATOR Pulse 94 03/27/2023 8:42 AM LOGISTICS COORDINATOR Temperature 36.2 ??C (97.2 ??F) 03/27/2023 8:42 AM CS T Respiratory Rate 16 03/12/2023 8:34 AM LOGISTICS COORDINATOR Oxygen Saturation 98% 03/27/2023 8:42 AM LOGISTICS COORDINATOR Inhaled Oxygen Concentration - - Weight 95.8 kg (211 lb 4.8 oz) 03/27/2023 8:42 A M LOGISTICS COORDINATOR Height 169.4 cm (5' 6.69) 03/27/2023 8:42 AM CS T Body Mass Index 33.4 03/27/2023 8:42 AM LOGISTICS COORDINATOR Plan of Treatment Health Maintenance Due Date [...] AB, IGA, S STAT 03/27/2023 11:44 AM LOGISTICS COORDINATOR CELIAC DISEASE COMPREHENSIVE CASCADE STAT 03/27/2023 11:44 AM LOGISTICS COORDINATOR Abdominal Pain CT ABDOMEN PELVIS WITH IV CONTRAST RAD - Routine (most inpatients and all outpatients) 03/27/2023 10:35 AM LOGISTICS COORDINATOR Abdominal Pain TEST, POCT, U (LAB) STAT 03/27/2023 10:03 AM LOGISTICS COORDINATOR Abdominal Pain HC URINALYSIS AUTO W MICRO STAT 03/27/2023 10:03 AM LOGISTICS COORDINATOR URINALYSIS WITH MICROSCOPIC IF INDICATED, U STAT 03/27/2023 10:03 AM LOGISTICS COORDINATOR Abdominal Pain BACTERIAL CULTURE, AEROBIC + SUSC, URINE STAT 03/27/2023 10:03 AM LOGISTICS COORDINATOR Abdominal Pain LIPASE, S/P STAT 03/27/2023 9:32 AM LOGISTICS COORDINATOR Abdominal Pain C-REACTIVE PROTEIN (CRP), S/P STAT 03/27/2023 9:32 AM LOGISTICS COORDINATOR Abdominal Pain COMPREHENSIVE METABOLIC PANEL, S/P STAT 03/27/2023 9:32 AM LOGISTICS COORDINATOR Abdominal Pain CBC WITH DIFFERENTIAL, B STAT 03/27/2023 9:32 AM LOGISTICS COORDINATOR Abdominal Pain FL ESOPHAGRAM SINGLE CONTRAST RAD - Routine (most inpatients and all outpatients) 03/25/2023 10:08 AM LOGISTICS COORDINATOR Pain Left Lower Quadrant TROPONIN T, 2H/6H, 5TH GEN, P Timed 03/12/2023 12:41 AM LOGISTICS COORDINATOR TROPONIN T, BASELINE, 5TH GEN, P STAT 03/11/2023 10:57 PM LOGISTICS COORDINATOR BASIC METABOLIC PANEL, S/P STAT 03/11/2023 10:57 PM LOGISTICS COORDINATOR CBC WITH DIFFERENTIAL, B STAT 03/11/2023 10:57 PM LOGISTICS COORDINATOR ECG STAT 03/10/2023 10:21 AM LOGISTICS COORDINATOR DX CHEST AP OR PA AND LATERAL 2 VIEWS RAD - Semiurgent (Fast; most ED patients; some inpatients) 03/10/2023 9:37 AM LOGISTICS COORDINATOR INFLUENZA A, B, RSV, PCR, POCT STAT 03/10/2023 8:49 AM LOGISTICS COORDINATOR SARS CORONAVIRUS 2, PCR RAPID, V STAT 03/10/2023 8:49 AM LOGISTICS COORDINATOR CBC WITH DIFFERENTIAL, B STAT 03/10/2023 8:39 AM LOGISTICS COORDINATOR BASIC METABOLIC PANEL, S/P STAT 03/10/2023 8:39 AM LOGISTICS COORDINATOR LIPASE, S/P STAT 03/08/2023 2:50 PM LOGISTICS COORDINATOR CBC WITH DIFFERENTIAL, B STAT 03/08/2023 2:50 PM LOGISTICS COORDINATOR COMPREHENSIVE METABOLIC PANEL, S/P STAT 03/08/2023 2:50 PM LOGISTICS COORDINATOR URINALYSIS WITH MICROSCOPIC STAT 03/08/2023 2:43 PM LOGISTICS COORDINATOR BASIC METABOLIC PANEL, S/P STAT 02/15/2023 2:35 PM LOGISTICS COORDINATOR Pain Epigastric CBC WITH DIFFERENTIAL, B STAT 02/15/2023 2:35 PM LOGISTICS COORDINATOR Pain Epigastric from Last 3 Months Results * Celiac Disease Comprehensive [place] (03/27/2023 11:44 AM LOGISTICS COORDINATOR) HLA-DQA1 Locus Molecular 01:03, 05 Not Applicable 03/31/2023 2:18 PM LOGISTICS COORDINATOR DBB8 HLA-DQB1 Locus Molecular 03:03, 06:03 Not Applicable 03/31/2023 2:18 PM LOGISTICS COORDINATOR DBB8 Comment: DQ Serologic Equivalent: 9, 6 Celiac Gene Pairs Present? No 03/31/2023 2:18 PM LOGISTICS COORDINATOR DBB8 Comment: Method: Molecular typing of HLA antigens performed using reverse SSOP and/or SSP methods, reported as serological equivalents and low to medium resolution molecular values. Based on the catalog of common, intermediate, and well-documented alleles in the world population (CWID 3.0 Yudi Trevino.hilton, HLA. 2020:227-531), certain intermediate or common alleles in some ethnicities may not be resolved. Kindly contact laboratory if ethnic specific resolution is required. CLIA: [id number] ??CLIA Mortgage Loan Specialist: KLAUS MANCUSO MD,PhD Immunoglobulin A (IgA), S 122 61 - 356 mg/dL 03/29/2023 2:59 PM LOGISTICS COORDINATOR [facility] Celiac Disease Interpretation See Comment: Permissive genes absent and negative serology. Celiac disease extremely unlikely. 03/31/2023 10:53 PM LOGISTICS COORDINATOR [facility] Blood (Blood, Venous) 03/27/2023 11:44 AM LOGISTICS COORDINATOR 03/29/2023 8:00 AM LOGISTICS COORDINATOR Narrative [facility] - 03/31/2023 10:53 PM LOGISTICS COORDINATOR Specimen Information: Specimen ID: [id number] Specimen Type: Blood Specimen Collection Start Date: 03/27/2023 11:44 AM Specimen Received Date: 03/29/2023 ??8:00 AM Specimen ID: [id number] Specimen Type: Blood Specimen Collection Start Date: 03/27/2023 11:44 AM Specimen Received Date: 03/29/2023 ??6:42 AM Specimen ID: [id number] Specimen Type: Blood Specimen Collection Start Date: 03/27/2023 11:44 AM Specimen Received Date: 03/29/2023 ??7:40 AM Mario Valle P.A.-C. LAB BLOOD N ON ADD-ON [facility] [address] [place] [address] DBB8 [facility] [address] [place] [address] [facility] [address] [place] [address] [facility] [address] [place] [address] [place] [address] * tTG (Tissue Transglutaminase), Antibody, IgA (03/27/2023 11:44 AM LOGISTICS COORDINATOR) Tissue Transglutaminase Ab, IgA, S <1.2 <4.0 (Negative ) U/mL 03/30/2023 12:34 PM LOGISTICS COORDINATOR [facility] Blood 03/27/2023 11:4 4 AM LOGISTICS COORDINATOR 03/29/2023 3:34 PM LOGISTICS COORDINATOR Mario Tori Blood LAB BLOOD A DD-ON Performing Organization Address City/State/[facility] Co de Phone Number [facility] [address] [place] [address] [facility] [address] [place] [address] * CT Abdomen Pelvis with IV Contrast (03/27/2023 10:35 AM LOGISTICS COORDINATOR) Anatomical Region Laterality Modality Abdomen, Pelvis, Abdominal R ST LOS, Abdominal ARZ LOS, Abdominal FLA LOS N/A Computed Tomography 03/27/2023 10:3 9 AM LOGISTICS COORDINATOR Impressions 03/27/2023 11:01 AM LOGISTICS COORDINATOR 1. Normal-appearing appendix. 2. No acute intra-abdominal/pelvic pathology, no CT findings to explain the patient's symptoms of right lower quadrant abdominal pain. Narrative 03/27/2023 11:01 AM LOGISTICS COORDINATOR EXAM: CT ABDOMEN PELVIS WITH IV CONTRAST [...] appendix in the right lower quadrant on [id number] of series 3. No small bowel or [...] lower quadrant abdominal pain. Mario Valle P.A.-C. [facility] CT PROC EDURES * (ABNORMAL) Urinalysis with Microscopic if Indicated (03/27/2023 10:03 AM LOGISTICS COORDINATOR) Source Urine, Urine, Midstream 03/27/2023 10:17 AM LOGISTICS COORDINATOR [facility] Clarity Clear Clear 03/27/2023 10:20 AM LOGISTICS COORDINATOR [facility] Color Yellow 03/27/2023 10:20 AM LOGISTICS COORDINATOR [facility] Comment: ----REFERENCE VALUE---- Colorless Yellow Chasity Blood Negative Negative 03/27/2023 10:20 AM LOGISTICS COORDINATOR [facility] Nitrite Negative Negative 03/27/2023 10:20 AM LOGISTICS COORDINATOR [facility] Leukocyte Esterase Small(A) Negative 03/27/2023 10:20 AM LOGISTICS COORDINATOR [facility] Protein Negative mg/dL 03/27/2023 10:20 AM LOGISTICS COORDINATOR [facility] Comment: ----REFERENCE VALUE---- Negative Trace Glucose Negative Negative mg/dL 03/27/2023 10:20 AM LOGISTICS COORDINATOR [facility] Ketones, QI(U) Negative Negative mg/dL 03/27/2023 10:20 AM LOGISTICS COORDINATOR [facility] Bilirubin Negative Negative 03/27/2023 10:20 AM LOGISTICS COORDINATOR [facility] pH 7.0 5.0 - 8.0 03/27/2023 10:20 AM LOGISTICS COORDINATOR [facility] Specific [place] 1.015 1.001 - 1.035 03/27/2023 10:20 AM LOGISTICS COORDINATOR [facility] Urobilinogen 0.2 0.2 - 1.0 mg/dL 03/27/2023 10:20 AM LOGISTICS COORDINATOR [facility] Urine (Urine, Midstream) 03/27/2023 10:03 AM LOGISTICS COORDINATOR 03/27/2023 10:17 AM LOGISTICS COORDINATOR Mario Valle P.A.-C. LAB URINE O RDERABLES [facility] [address] [place] [address], [facility] NPRG [facility] [address] [place] [address] * (ABNORMAL) Microscopic Manual (03/27/2023 10:03 AM LOGISTICS COORDINATOR) White Blood Cells Occ-3 /hpf 03/27/2023 10:32 AM LOGISTICS COORDINATOR NPR[facility] Comment: ----REFERENCE VALUE---- Males: 0-3 Females: 0-10 Unknown: 0-10 Red Blood Cells None Seen 0 - 2 /hpf 03/27/2023 10:32 AM LOGISTICS COORDINATOR [facility] Squamous Cells Occ-3 /hpf 03/27/2023 10:32 AM LOGISTICS COORDINATOR [facility] Bacteria Present(A) None Seen 03/27/2023 10:32 AM LOGISTICS COORDINATOR [facility] Urine 03/27/2023 10:0 3 AM LOGISTICS COORDINATOR 03/27/2023 10:17 AM LOGISTICS COORDINATOR Mraio Valle P.A.-C. LAB URINE O RDERABLES [facility] [address] [place] [address], [facility] NPRG [facility] [address] [place] [address] * (ABNORMAL) Bacterial Culture, Aerobic + Susceptibility, Urine (03/27/2023 10:03 AM LOGISTICS COORDINATOR) Urine Culture with mixed microbiota(A) 03/30/2023 6:38 AM LOGISTICS COORDINATOR [facility] Urine Culture PSEUDOMONAS AERUGINOSA >100,000 cfu/mL (A) 03/30/2023 6:38 AM LOGISTICS COORDINATOR [facility] Urine Culture KLEBSIELLA PNEUMONIAE COMPLEX 10,000-100,000 cfu/mL (A) 03/30/2023 6:38 AM LOGISTICS COORDINATOR [facility] Urine (Urine, Midstream) 03/27/2023 10:03 AM LOGISTICS COORDINATOR 03/27/2023 4:21 PM LOGISTICS COORDINATOR Comment:Specimen Source Site : Urine Narrative Organism [...] P.A.-C. LAB MICROBI OLOGY - GENERAL ORDERABLES [facility] [address] [place] [address], [facility] in [place] [address] [place] [address] * Test, POCT, Urine (Lab) (03/27/2023 10:03 AM LOGISTICS COORDINATOR) Test, POCT, U Negative 03/27/2023 10:25 AM LOGISTICS COORDINATOR NPR[facility] Urine (Urine, Midstream) 03/27/2023 10:03 AM LOGISTICS COORDINATOR 03/27/2023 10:17 AM LOGISTICS COORDINATOR Mario Valle P.A.-C. LAB POCT OR DERABLES - DEVICE [facility] [address] [place] [address], [facility] NPRG [facility] [address] [place] [address] * CBC with Differential, Blood (03/27/2023 9:32 AM LOGISTICS COORDINATOR) Only the most recent of5 resultswithin the time period is included. Pathologist [facility] Hemoglobin 13.9 11.6 - 15.0 g/dL 03/27/2023 9:41 AM LOGISTICS COORDINATOR [facility] Hematocrit 42.7 35.5 - 44.9 % 03/27/2023 9:41 AM LOGISTICS COORDINATOR [facility] Erythrocytes 4.95 3.92 - 5.13 x10(12)/L 03/27/2023 9:41 AM LOGISTICS COORDINATOR [facility] MCV 86.3 78.2 - 97.9 fL 03/27/2023 9:41 AM LOGISTICS COORDINATOR [facility] RBC Distrib Width 14.7 12.2 - 16.1 % 03/27/2023 9:41 AM LOGISTICS COORDINATOR [facility] Platelet Count 278 157 - 371 x10(9)/L 03/27/2023 9:41 AM LOGISTICS COORDINATOR [facility] Leukocytes 7.4 3.4 - 9.6 x10(9)/L 03/27/2023 9:41 AM LOGISTICS COORDINATOR [facility] Neutrophils 5.52 1.56 - 6.45 x10(9)/L 03/27/2023 9:41 AM LOGISTICS COORDINATOR [facility] Lymphocytes 1.09 0.95 - 3.07 x10(9)/L 03/27/2023 9:41 AM LOGISTICS COORDINATOR [facility] Monocytes 0.65 0.26 - 0.81 x10(9)/L 03/27/2023 9:41 AM LOGISTICS COORDINATOR [facility] Eosinophils 0.16 0.03 - 0.48 x10(9)/L 03/27/2023 9:41 AM LOGISTICS COORDINATOR [facility] Basophils 0.01 0.01 - 0.08 x10(9)/L 03/27/2023 9:41 AM LOGISTICS COORDINATOR [facility] Blood (Blood, Venous) 03/27/2023 9:32 AM LOGISTICS COORDINATOR 03/27/2023 9:37 AM LOGISTICS COORDINATOR Mario ClarkC. LAB BLOOD A DD-ON Performing Organization Address [facility]/ZIP Co de Phone Number [facility] [address] [place] [address], [address] [address] * (ABNORMAL) CRP (C-Reactive Protein) (03/27/2023 9:32 AM LOGISTICS COORDINATOR) C-Reactive Protein (CRP), P 15.2(H) <5.0 mg/L 03/27/2023 10:02 AM LOGISTICS COORDINATOR [facility] Blood (Blood, Venous) 03/27/2023 9:32 AM LOGISTICS COORDINATOR 03/27/2023 9:37 AM LOGISTICS COORDINATOR Mario Longoria-C. LAB BLOOD A DD-ON Performing Organization Address [facility] Co de Phone Number [facility] [address] [place] [address], [address] [address] * Lipase (03/27/2023 9:32 AM LOGISTICS COORDINATOR) Only the most recent of2 resultswithin the time period is included. Lipase, P 36 13 - 60 U/L 03/27/2023 10:02 AM LOGISTICS COORDINATOR [facility] Blood (Blood, Venous) 03/27/2023 9:32 AM LOGISTICS COORDINATOR 03/27/2023 9:37 AM LOGISTICS COORDINATOR Mario Valle P.A.-C. LAB BLOOD A DD-ON [facility] [address] [place] [address], [place] NPRG [facility] [address] [place] [address] * Comprehensive Metabolic Panel (03/27/2023 9:32 AM LOGISTICS COORDINATOR) Only the most recent of2 resultswithin the time period is included. [facility] Potassium, P 4.0 3.6 - 5.2 mmol/L 03/27/2023 10:02 AM LOGISTICS COORDINATOR NPR[facility] Sodium, P 139 135 - 145 mmol/L 03/27/2023 10:02 AM LOGISTICS COORDINATOR [facility] Chloride, P 105 98 - 107 mmol/L 03/27/2023 10:02 AM LOGISTICS COORDINATOR [facility] Bicarbonate, P 22 22 - 29 mmol/L 03/27/2023 10:02 AM LOGISTICS COORDINATOR [facility] Anion Gap, P 12 7 - 15 03/27/2023 10:02 AM LOGISTICS COORDINATOR [facility] BUN (Blood Urea Nitrogen), P 8 6 - 21 mg/dL 03/27/2023 10:02 AM LOGISTICS COORDINATOR [facility] Creatinine 0.87 0.59 - 1.04 mg/dL 03/27/2023 10:02 AM LOGISTICS COORDINATOR NPR[facility] Estimated GFR (eGFR) 86 >=60 mL/min/BS A 03/27/2023 10:02 AM LOGISTICS COORDINATOR NPR[facility] Comment: Estimated GFR calculated using the 2020 CKD_EPI creatinine equation. Calcium, Total, P 9.1 8.6 - 10.0 mg/dL 03/27/2023 10:02 AM LOGISTICS COORDINATOR [facility] Glucose, P 93 70 - 140 mg/dL 03/27/2023 10:02 AM LOGISTICS COORDINATOR [facility] Protein, Total, P 6.5 6.3 - 7.9 g/dL 03/27/2023 10:02 AM LOGISTICS COORDINATOR [facility] Albumin, P 4.0 3.5 - 5.0 g/dL 03/27/2023 10:02 AM LOGISTICS COORDINATOR [facility] Aspartate Aminotransferase (AST), P 14 8 - 43 U/L 03/27/2023 10:02 AM LOGISTICS COORDINATOR [facility] Alkaline Phosphatase, P 69 35 - 104 U/L 03/27/2023 10:02 AM LOGISTICS COORDINATOR [facility] Alanine Aminotransferase (ALT), P 30 7 - 45 U/L 03/27/2023 10:02 AM LOGISTICS COORDINATOR [facility] Bilirubin, Total, P 0.5 0.0 - 1.2 mg/dL 03/27/2023 10:02 AM LOGISTICS COORDINATOR [facility] Blood (Blood, Venous) 03/27/2023 9:32 AM LOGISTICS COORDINATOR 03/27/2023 9:37 AM LOGISTICS COORDINATOR Mario Valle P.A.-C. LAB BLOOD A DD-ON [facility] [address] [place] [address], [facility] NPRG [facility] [address] [place] [address] * FL Esophagram Single Contrast (03/25/2023 10:08 AM LOGISTICS COORDINATOR) Anatomical Region Laterality Modality Gastro Intestinal, Abdominal RST LOS, Abdominal ARZ LOS, Abdominal FLA LOS N/A Digital Radiography Impressions 03/25/2023 10:13 AM LOGISTICS COORDINATOR Small sliding-type hiatal hernia. No reflux observed. Narrative 03/25/2023 10:13 AM LOGISTICS COORDINATOR EXAM: FL ESOPHAGRAM SINGLE CONTRAST FINDINGS: Normal [...] Small sliding-type hiatal hernia. No reflux observed. Ronla Henderson M.D. IMG FLUOROSCOPY [facility] OCEDURES * Troponin T, 2h/6h, 5th Gen (03/12/2023 12:41 AM LOGISTICS COORDINATOR) Troponin T, 2 hr, 5th gen <6 <=10 ng/L 03/12/2023 1:03 AM LOGISTICS COORDINATOR [facility] 2H Delta 0 ng/L 03/12/2023 1:03 AM LOGISTICS COORDINATOR NPR[facility] 2H Delta Interp Not Changing 03/12/2023 1:03 AM LOGISTICS COORDINATOR NPR[facility] Troponin T, 6 hr, 5th gen CANCELED ng/L 03/12/2023 1:03 AM LOGISTICS COORDINATOR NPR[facility] Comment:Result canceled by t he ancillary. 6H Delta CANCELED ng/L 03/12/2023 1:03 AM LOGISTICS COORDINATOR NPRG Comment:Result canceled by t he ancillary. 6H Delta % CANCELED % 03/12/2023 1:03 AM LOGISTICS COORDINATOR [facility] Comment:Result canceled by t he ancillary. Blood (Blood, Venous) 03/12/2023 12:41 AM LOGISTICS COORDINATOR 03/12/2023 12:43 AM LOGISTICS COORDINATOR Narrative [facility] - 03/12/2023 1:03 AM LOGISTICS COORDINATOR Specimen Information: Specimen ID: [id number] Specimen Type: Blood Specimen Collection Start Date: 03/12/2023 12:41 AM Specimen Received Date: 03/12/2023 12:43 AM Specimen ID: [id number] Specimen Type: Blood Boyd Lynn M.D. LAB BLOOD TROPONIN [facility] [address] [place] [address], [facility] NPRG [place] [address] [place] [address] * Troponin T, Baseline, 5th gen (03/11/2023 10:57 PM LOGISTICS COORDINATOR) Troponin T, Baseline, 5th gen <6 <=10 ng/L 03/11/2023 11:50 PM LOGISTICS COORDINATOR NPR[facility] Blood (Blood, Venous) 03/11/2023 10:57 PM LOGISTICS COORDINATOR 03/11/2023 11:01 PM LOGISTICS COORDINATOR Boyd Lynn M.D. LAB BLOOD TROPONIN [facility] [address] [place] [address], [place] NPRG [place] [address] [place] [address] * Basic Metabolic Panel (03/11/2023 10:57 PM LOGISTICS COORDINATOR) Only the most recent of3 resultswithin the time period is included. Potassium, P 4.0 3.6 - 5.2 mmol/L 03/11/2023 11:25 PM LOGISTICS COORDINATOR [facility] Sodium, P 139 135 - 145 mmol/L 03/11/2023 11:25 PM LOGISTICS COORDINATOR [facility] Chloride, P 104 98 - 107 mmol/L 03/11/2023 11:25 PM LOGISTICS COORDINATOR [facility] Bicarbonate, P 23 22 - 29 mmol/L 03/11/2023 11:25 PM LOGISTICS COORDINATOR [facility] Anion Gap, P 12 7 - 15 03/11/2023 11:25 PM LOGISTICS COORDINATOR [facility] BUN (Blood Urea Nitrogen), P 9 6 - 21 mg/dL 03/11/2023 11:25 PM LOGISTICS COORDINATOR [facility] Creatinine 0.83 0.59 - 1.04 mg/dL 03/11/2023 11:25 PM LOGISTICS COORDINATOR NPR[facility] Estimated GFR (eGFR) >90 >=60 mL/min/BSA 03/11/2023 11:25 PM LOGISTICS COORDINATOR NPRG Comment: Estimated GFR calculated using the 2020 CKD_EPI creatinine equation. Calcium, Total, P 9.6 8.6 - 10.0 mg/dL 03/11/2023 11:25 PM LOGISTICS COORDINATOR [facility] Glucose, P 98 70 - 140 mg/dL 03/11/2023 11:25 PM LOGISTICS COORDINATOR [facility] Blood (Blood, Venous) 03/11/2023 10:57 PM LOGISTICS COORDINATOR 03/11/2023 11:01 PM LOGISTICS COORDINATOR Boyd Lynn M.D. LAB BLOOD ADD-ON [facility] [address] [place] [address], [facility] NPRG [place] [address] [place] [address] * ECG 12 Lead (03/10/2023 10:21 AM LOGISTICS COORDINATOR) Ventricular Rate ECG/Min 73 BPM MUSE VA Interval 132 ms MUSE QRSD Interval 90 ms MUSE QT Interval 416 ms MUSE QTC Interval 458 ms MUSE P [place] 66 degrees MUSE R [place] 14 degrees MUSE T Wave [place] -1 degrees MUSE 03/10/2023 10:2 1 AM LOGISTICS COORDINATOR 03/10/2023 10:42 AM LOGISTICS COORDINATOR Impressions MUSE - 03/10/2023 10:40 AM LOGISTICS COORDINATOR Normal sinus rhythm Nonspecific ST and T wave abnormality When compared with ECG of 07-OCT-2022 12:07, VA interval has increased Reviewed by WHIT Plummer Narrative Procedure Note Daquan Hess M.D., M.P.H. - 03/10/2023 IMPRESSION: Normal sinus rhythm Nonspecific ST and T wave abnormality When compared with ECG of 07-OCT-2022 12:07, VA interval has increased Reviewed by WHIT Plummer Jesus Manuel Hensley M.D. ECG ORDERABLES MUSE NA * DX Chest AP or PA and Lateral 2 Views (03/10/2023 9:37 AM LOGISTICS COORDINATOR) Anatomical Region Laterality Modality Chest, Thoracic RST LOS, Tho racic ARZ LOS, Thoracic FLA LOS N/A Digital Radiography Impressions 03/10/2023 9:38 AM LOGISTICS COORDINATOR Stable chest, no acute cardiopulmonary disease. Narrative 03/10/2023 9:38 AM LOGISTICS COORDINATOR EXAM: DX CHEST AP OR PA AND [...] 2, PCR Rapid Symptomatic (03/10/2023 8:49 AM LOGISTICS COORDINATOR) SARS CoV-2, PCR, Rapid, V Undetected Undetected 03/10/2023 9:12 AM LOGISTICS COORDINATOR [facility] Comment: ----ADDITIONAL INFORMATION---- This RT-PCR test was performed using the [employer] SARS-CoV-2 and Influenza A/B Reagent assay from [employer] [employer], which has received Emergency Use Authorization(EUA) by the U.S. Food and Drug Administration. Fact sheets for this Emergency Use Authorization (EUA) assay can be found at the following links: For Healthcare Providers: https://www.fda.gov/media/983549/download For Patients: https://www.fda.gov/media/509073/download SARS Coronavirus 2, Source, Rapid Swab, Nasopharynx 03/10/2023 8:49 AM LOGISTICS COORDINATOR [facility] Swab (Nasopharynx) 03/10/2023 8:49 AM LOGISTICS COORDINATOR 03/10/2023 8:49 AM LOGISTICS COORDINATOR Jesus Manuel Hensley M.D. LAB MICROBIOLOGY - G ENERAL ORDERABLES [facility] [address] [place] [address], [facility] NPR[facility] [address] [place] [address] * Influenza A/B and RSV, PCR, Point of Care (03/10/2023 8:49 AM LOGISTICS COORDINATOR) Influenza A, POCT Negative Negative 03/10/2023 8:53 AM LOGISTICS COORDINATOR NPRG Influenza B, POCT Negative Negative 03/10/2023 8:53 AM LOGISTICS COORDINATOR NPRG Resp Syncytial Virus, POCT Negative Negative 03/10/2023 8:53 AM LOGISTICS COORDINATOR NPRG Swab (Nasopharynx) 03/10/2023 8:49 AM LOGISTICS COORDINATOR 03/10/2023 8:49 AM LOGISTICS COORDINATOR Jesus Manuel Hensley M.D. LAB POCT ORDERABLES - DEVICE [facility] [address] [place] [address], [facility] NPRG [facility] [address] [place] [address] * (ABNORMAL) Urinalysis with Microscopic: Urine, Midstream (03/08/2023 2:43 PM LOGISTICS COORDINATOR) Source Urine, Urine, Midstream 03/08/2023 3:00 PM LOGISTICS COORDINATOR MKTO Clarity Clear Clear 03/08/2023 3:00 PM LOGISTICS COORDINATOR MKTO Color Yellow 03/08/2023 3:00 PM LOGISTICS COORDINATOR MKTO Comment: ----REFERENCE VALUE---- Colorless Yellow Chasity Blood Negative Negative 03/08/2023 3:00 PM LOGISTICS COORDINATOR MKTO Nitrite Negative Negative 03/08/2023 3:00 PM LOGISTICS COORDINATOR MKTO Leukocyte Esterase Trace(A) Negative 03/08/2023 3:00 PM LOGISTICS COORDINATOR MKTO Protein Negative mg/dL 03/08/2023 3:00 PM LOGISTICS COORDINATOR MKTO Comment: ----REFERENCE VALUE---- Negative Trace Glucose Negative Negative mg/dL 03/08/2023 3:00 PM LOGISTICS COORDINATOR MKTO Ketone Negative Negative mg/dL 03/08/2023 3:00 PM LOGISTICS COORDINATOR MKTO Bilirubin Negative Negative 03/08/2023 3:00 PM LOGISTICS COORDINATOR [facility] pH 8.5(A) 5.0 - 8.0 03/08/2023 3:00 PM LOGISTICS COORDINATOR MKTO Specific [place] 1.007 1.001 - 1.035 03/08/2023 3:00 PM LOGISTICS COORDINATOR [facility]TO Urobilinogen 0.2 0.2 - 1.0 mg/dL 03/08/2023 3:00 PM LOGISTICS COORDINATOR MKTO White Blood Cells Occ-3 /hpf 03/08/2023 3:03 PM LOGISTICS COORDINATOR MKTO Comment: ----REFERENCE VALUE---- Males: 0-3 Females: 0-10 Unknown: 0-10 Red Blood Cells None Seen 0 - 2 /hpf 3:03 PM LOGISTICS COORDINATOR MKTO Squamous Cells Occ-3 /hpf 03/08/2023 3:03 PM LOGISTICS COORDINATOR MKTO Urine (Urine, Midstream) 03/08/2023 2:43 PM LOGISTICS COORDINATOR 03/08/2023 2:56 PM LOGISTICS COORDINATOR Ronal Henderson M.D. LAB URINE ORDERABL ES [facility] [address] [place] [address], [facility] MKTO [facility] [place] [address] [place] [phone] from Last 3 Months Care Teams Taper Machine Relationship Specialty Start Date End Date Elsewhere, Pcp PCP - General Internal Medicine 01/07/22
--- OUTSIDE RECORDS SUMMARY | 2023-04-25 08:11 | XMS_ITS | Referral Summary ---
Author Name Unknown Organization [facility] Address [address] [place] [address] Care Team Providers Care Bottom Scrubber Name Role Phone Elsewhere, Pcp Primary Care Provider Unavailabl e Source Comments Patient records contain information from all sites at [facility]. For routine questions regarding patient records, call [phone] during business hours, M-F 8:00 AM - 5:00 PM Central Time. Record requests for emergency care only can be directed to [phone] at any time.[facility] Encounters Date Type Department Care Team Description 03/30/2023 Orders Only Urgent Care, [facility], in [address] [address] Mario Valle P.A.-CSona Urinary Tract Infection Site Not Specified (Primary Dx) 03/27/2023 10:14 AM MOLECULAR BIOLOGY PROFESSOR - 03/27/2023 11:59 PM MOLECULAR BIOLOGY PROFESSOR Hospital Encounter Department of Radiology in [address] [phone] Mario Valle P.A.-C. Abdominal Pain Discharge Disposition: Home or Self Care 03/27/2023 9:00 AM MOLECULAR BIOLOGY PROFESSOR Office Visit Urgent Care, [facility], in [address] [phone] Mario Valle P.A.-CSona Abdominal Pain (Primary Dx) Discharge Disposition: Home or Self Care 03/25/2023 9:23 AM MOLECULAR BIOLOGY PROFESSOR - 03/25/2023 11:59 PM [facility] Hospital Encounter Department of Radiology, [facility], in [place], [place] [address] [place] [address] Ronal Henderson M.D. Johnson, David W, M.D. Pain Left Lower Quadrant Discharge Disposition: Home or Self Care 03/12/2023 8:27 AM MOLECULAR BIOLOGY PROFESSOR - 03/12/2023 9:04 AM [facility] Emergency [place] [facility] [address] [place] [phone] Wendy Calzada D.O. Dysphagia (Primary Dx); Foreign Body Swallowed Initial Discharge Disposition: Home or Self Care 03/11/2023 8:53 PM MOLECULAR BIOLOGY PROFESSOR - 03/12/2023 2:30 AM [facility] Emergency Department [address] [place] [phone] Boyd Lynn M.D. Lightheadedness (Primary Dx) Discharge Disposition: Home or Self Care 03/10/2023 8:44 AM MOLECULAR BIOLOGY PROFESSOR - 03/10/2023 11:30 AM [facility] Emergency [place] [facility] [address] [place] [phone] Jesus Manuel Hensley M.D. Influenza Like Illness (Primary Dx); Dehydration; Hypokalemia Discharge Disposition: Home or Self Care 03/08/2023 Nurse Triage [facility] Department of Family Medicine in [place], [place] [address] [facility] [place] [address] Suha Lea R.N. Med Question 03/08/2023 1:52 PM MOLECULAR BIOLOGY PROFESSOR - 03/08/2023 4:01 PM [facility] Emergency [facility] Emergency Department [address] [place] [address] Ronal Henderson M.D. Pain Left Lower Quadrant (Primary Dx); Pain Left Upper Quadrant; Abdominal Pain Discharge Disposition: Home or Self Care 03/02/2023 Clinical Communication Division of Gastroenterology in [place], [place] [address] [place] [address] Thaddeus Cosme M.D., Ph.D. 02/15/2023 1:45 PM MOLECULAR BIOLOGY PROFESSOR Office Visit Urgent Care, [facility], in [place], [place] [address] [place] [address] Lela Aguiar P.A.-C. Pain Epigastric (Primary Dx) [...] often do you attend chur ch or christian services? 1 to 4 times per year [...] Answer Date Recorded PHQ-2 Score 0 12/10/2021 [facility] of Occupat ional Health - Occupational Stress [...] Comments Blood Pressure 117/81 03/27/2023 8:42 AM MOLECULAR BIOLOGY PROFESSOR Pulse 94 03/27/2023 8:42 AM MOLECULAR BIOLOGY PROFESSOR Temperature 36.2 ??C (97.2 ??F) 03/27/2023 8:42 AM CS T Respiratory Rate 16 03/12/2023 8:34 AM MOLECULAR BIOLOGY PROFESSOR Oxygen Saturation 98% 03/27/2023 8:42 AM MOLECULAR BIOLOGY PROFESSOR Inhaled Oxygen Concentration - - Weight 95.8 kg (211 lb 4.8 oz) 03/27/2023 8:42 A M MOLECULAR BIOLOGY PROFESSOR Height 169.4 cm (5' 6.69) 03/27/2023 8:42 AM CS T Body Mass Index 33.4 03/27/2023 8:42 AM MOLECULAR BIOLOGY PROFESSOR Plan of Treatment Not on file Procedures Procedure Name Priority Date/Time Associated Diagnosis Comments TISSUE TRANSGLUTAMINASE (TTG) AB, IGA, S STAT 03/27/2023 11:44 AM MOLECULAR BIOLOGY PROFESSOR CELIAC DISEASE COMPREHENSIVE CASCADE STAT 03/27/2023 11:44 AM MOLECULAR BIOLOGY PROFESSOR Abdominal Pain CT ABDOMEN PELVIS WITH IV CONTRAST RAD - Routine (most inpatients and all outpatients) 03/27/2023 10:35 AM MOLECULAR BIOLOGY PROFESSOR Abdominal Pain TEST, POCT, U (LAB) STAT 03/27/2023 10:03 AM MOLECULAR BIOLOGY PROFESSOR Abdominal Pain HC URINALYSIS AUTO W MICRO STAT 03/27/2023 10:03 AM MOLECULAR BIOLOGY PROFESSOR URINALYSIS WITH MICROSCOPIC IF INDICATED, U STAT 03/27/2023 10:03 AM MOLECULAR BIOLOGY PROFESSOR Abdominal Pain BACTERIAL CULTURE, AEROBIC + SUSC, URINE STAT 03/27/2023 10:03 AM MOLECULAR BIOLOGY PROFESSOR Abdominal Pain LIPASE, S/P STAT 03/27/2023 9:32 AM MOLECULAR BIOLOGY PROFESSOR Abdominal Pain C-REACTIVE PROTEIN (CRP), S/P STAT 03/27/2023 9:32 AM MOLECULAR BIOLOGY PROFESSOR Abdominal Pain COMPREHENSIVE METABOLIC PANEL, S/P STAT 03/27/2023 9:32 AM MOLECULAR BIOLOGY PROFESSOR Abdominal Pain CBC WITH DIFFERENTIAL, B STAT 03/27/2023 9:32 AM MOLECULAR BIOLOGY PROFESSOR Abdominal Pain FL ESOPHAGRAM SINGLE CONTRAST RAD - Routine (most inpatients and all outpatients) 03/25/2023 10:08 AM MOLECULAR BIOLOGY PROFESSOR Pain Left Lower Quadrant TROPONIN T, 2H/6H, 5TH GEN, P Timed 03/12/2023 12:41 AM MOLECULAR BIOLOGY PROFESSOR TROPONIN T, BASELINE, 5TH GEN, P STAT 03/11/2023 10:57 PM MOLECULAR BIOLOGY PROFESSOR BASIC METABOLIC PANEL, S/P STAT 03/11/2023 10:57 PM MOLECULAR BIOLOGY PROFESSOR CBC WITH DIFFERENTIAL, B STAT 03/11/2023 10:57 PM MOLECULAR BIOLOGY PROFESSOR ECG STAT 03/10/2023 10:21 AM MOLECULAR BIOLOGY PROFESSOR DX CHEST AP OR PA AND LATERAL 2 VIEWS RAD - Semiurgent (Fast; most ED patients; some inpatients) 03/10/2023 9:37 AM MOLECULAR BIOLOGY PROFESSOR INFLUENZA A, B, RSV, PCR, POCT STAT 03/10/2023 8:49 AM MOLECULAR BIOLOGY PROFESSOR SARS CORONAVIRUS 2, PCR RAPID, V STAT 03/10/2023 8:49 AM MOLECULAR BIOLOGY PROFESSOR CBC WITH DIFFERENTIAL, B STAT 03/10/2023 8:39 AM MOLECULAR BIOLOGY PROFESSOR BASIC METABOLIC PANEL, S/P STAT 03/10/2023 8:39 AM MOLECULAR BIOLOGY PROFESSOR LIPASE, S/P STAT 03/08/2023 2:50 PM MOLECULAR BIOLOGY PROFESSOR CBC WITH DIFFERENTIAL, B STAT 03/08/2023 2:50 PM MOLECULAR BIOLOGY PROFESSOR COMPREHENSIVE METABOLIC PANEL, S/P STAT 03/08/2023 2:50 PM MOLECULAR BIOLOGY PROFESSOR URINALYSIS WITH MICROSCOPIC STAT 03/08/2023 2:43 PM MOLECULAR BIOLOGY PROFESSOR BASIC METABOLIC PANEL, S/P STAT 02/15/2023 2:35 PM MOLECULAR BIOLOGY PROFESSOR Pain Epigastric CBC WITH DIFFERENTIAL, B STAT 02/15/2023 2:35 PM MOLECULAR BIOLOGY PROFESSOR Pain Epigastric from Last 3 Months Results * Celiac Disease Comprehensive Daniels (03/27/2023 11:44 AM MOLECULAR BIOLOGY PROFESSOR) HLA-DQA1 Locus Molecular 01:03, 05 Not Applicable 03/31/2023 2:18 PM MOLECULAR BIOLOGY PROFESSOR DBB8 HLA-DQB1 Locus Molecular 03:03, 06:03 Not Applicable 03/31/2023 2:18 PM MOLECULAR BIOLOGY PROFESSOR DBB8 Comment: DQ Serologic Equivalent: 9, 6 Celiac Gene Pairs Present? No 03/31/2023 2:18 PM MOLECULAR BIOLOGY PROFESSOR DBB8 Comment: Method: Molecular typing of HLA antigens performed using reverse SSOP and/or SSP methods, reported as serological equivalents and low to medium resolution molecular values. Based on the catalog of common, intermediate, and well-documented alleles in the world population (CWID 3.0 Yudi LINDSAY et.al, HLA. 2020:519-531), certain intermediate or common alleles in some ethnicities may not be resolved. Kindly contact laboratory if ethnic specific resolution is required. CLIA: [id number] ??CLIA Forest Logistics Manager: KLAUS MANCUSO MD,PhD Immunoglobulin A (IgA), S 122 61 - 356 mg/dL 03/29/2023 2:59 PM MOLECULAR BIOLOGY PROFESSOR [facility] Celiac Disease Interpretation See Comment: Permissive genes absent and negative serology. Celiac disease extremely unlikely. 03/31/2023 10:53 PM MOLECULAR BIOLOGY PROFESSOR [facility] Blood (Blood, Venous) 03/27/2023 11:44 AM MOLECULAR BIOLOGY PROFESSOR 03/29/2023 8:00 AM MOLECULAR BIOLOGY PROFESSOR Narrative [facility] - 03/31/2023 10:53 PM MOLECULAR BIOLOGY PROFESSOR Specimen Information: Specimen ID: [id number] Specimen Type: Blood Specimen Collection Start Date: 03/27/2023 11:44 AM Specimen Received Date: 03/29/2023 ??8:00 AM Specimen ID: [id number] Specimen Type: Blood Specimen Collection Start Date: 03/27/2023 11:44 AM Specimen Received Date: 03/29/2023 ??6:42 AM Specimen ID: [id number] Specimen Type: Blood Specimen Collection Start Date: 03/27/2023 11:44 AM Specimen Received Date: 03/29/2023 ??7:40 AM Mario Valle P.A.-C. LAB BLOOD N ON ADD-ON [facility] [address] [place] [address] [id number] [facility] [address] [place] [address] [facility] [address] [place] [address] [facility] [address] [place] [address] [place] [address] * tTG (Tissue Transglutaminase), Antibody, IgA (03/27/2023 11:44 AM MOLECULAR BIOLOGY PROFESSOR) Tissue Transglutaminase Ab, IgA, S <1.2 <4.0 (Negative ) U/mL 03/30/2023 12:34 PM MOLECULAR BIOLOGY PROFESSOR [facility] Blood 03/27/2023 11:4 4 AM MOLECULAR BIOLOGY PROFESSOR 03/29/2023 3:34 PM MOLECULAR BIOLOGY PROFESSOR Mario Valle P.A.-C. LAB BLOOD A DD-ON Performing Organization Address [facility] Co de Phone Number [facility] [address] [place] [address] [facility] [address] [place] [address] * CT Abdomen Pelvis with IV Contrast (03/27/2023 10:35 AM MOLECULAR BIOLOGY PROFESSOR) Anatomical Region Laterality Modality Abdomen, Pelvis, Abdominal R ST LOS, Abdominal ARZ LOS, Abdominal FLA LOS N/A Computed Tomography 03/27/2023 10:3 9 AM MOLECULAR BIOLOGY PROFESSOR Impressions 03/27/2023 11:01 AM MOLECULAR BIOLOGY PROFESSOR 1. Normal-appearing appendix. 2. No acute intra-abdominal/pelvic pathology, no CT findings to explain the patient's symptoms of right lower quadrant abdominal pain. Narrative 03/27/2023 11:01 AM MOLECULAR BIOLOGY PROFESSOR EXAM: CT ABDOMEN PELVIS WITH IV CONTRAST [...] appendix in the right lower quadrant on [id number] of series 3. No small bowel or [...] with Microscopic if Indicated (03/27/2023 10:03 AM MOLECULAR BIOLOGY PROFESSOR) Source Urine, Urine, Midstream 03/27/2023 10:17 AM MOLECULAR BIOLOGY PROFESSOR NPR[facility] Clarity Clear Clear 03/27/2023 10:20 AM MOLECULAR BIOLOGY PROFESSOR [facility] Color Yellow 03/27/2023 10:20 AM MOLECULAR BIOLOGY PROFESSOR NPRG Comment: ----REFERENCE VALUE---- Colorless Yellow Chasity Blood Negative Negative 03/27/2023 10:20 AM MOLECULAR BIOLOGY PROFESSOR NPR[facility] Nitrite Negative Negative 03/27/2023 10:20 AM MOLECULAR BIOLOGY PROFESSOR [facility] Leukocyte Esterase Small(A) Negative 03/27/2023 10:20 AM MOLECULAR BIOLOGY PROFESSOR [facility] Protein Negative mg/dL 03/27/2023 10:20 AM MOLECULAR BIOLOGY PROFESSOR NPRG Comment: ----REFERENCE VALUE---- Negative Trace Glucose Negative Negative mg/dL 03/27/2023 10:20 AM MOLECULAR BIOLOGY PROFESSOR NPR[facility] Ketones, QI(U) Negative Negative mg/dL 03/27/2023 10:20 AM MOLECULAR BIOLOGY PROFESSOR NPRG Bilirubin Negative Negative 03/27/2023 10:20 AM MOLECULAR BIOLOGY PROFESSOR NPR[facility] pH 7.0 5.0 - 8.0 03/27/2023 10:20 AM MOLECULAR BIOLOGY PROFESSOR NPR[facility] Specific [place] 1.015 1.001 - 1.035 03/27/2023 10:20 AM MOLECULAR BIOLOGY PROFESSOR NPR[facility] Urobilinogen 0.2 0.2 - 1.0 mg/dL 03/27/2023 10:20 AM MOLECULAR BIOLOGY PROFESSOR NPRG Urine (Urine, Midstream) 03/27/2023 10:03 AM MOLECULAR BIOLOGY PROFESSOR 03/27/2023 10:17 AM MOLECULAR BIOLOGY PROFESSOR Mario Valle P.A.-C. LAB URINE O RDERABLES Performing Organization Address City/[facility]/ZIP Co de Phone Number [facility] [address] [place] [address], [facility] NPRG [place] [address] [place] [address] * (ABNORMAL) Microscopic Manual (03/27/2023 10:03 AM MOLECULAR BIOLOGY PROFESSOR) White Blood Cells Occ-3 /hpf 03/27/2023 10:32 AM MOLECULAR BIOLOGY PROFESSOR NPRG Comment: ----REFERENCE VALUE---- Males: 0-3 Females: 0-10 Unknown: 0-10 Red Blood Cells None Seen 0 - 2 /hpf 03/27/2023 10:32 AM MOLECULAR BIOLOGY PROFESSOR NPR[facility] Squamous Cells Occ-3 /hpf 03/27/2023 10:32 AM MOLECULAR BIOLOGY PROFESSOR NPRG Bacteria Present(A) None Seen 03/27/2023 10:32 AM MOLECULAR BIOLOGY PROFESSOR NPRG Urine 03/27/2023 10:0 3 AM MOLECULAR BIOLOGY PROFESSOR 03/27/2023 10:17 AM MOLECULAR BIOLOGY PROFESSOR Mario Valle P.A.-C. LAB URINE O RDERABLES Performing Organization Address City/[facility] Co de Phone Number [facility] [address] [place] [address], [facility] NPRG [place] [address] [place] [address] * (ABNORMAL) Bacterial Culture, Aerobic + Susceptibility, Urine (03/27/2023 10:03 AM MOLECULAR BIOLOGY PROFESSOR) Urine Culture with mixed microbiota(A) 03/30/2023 6:38 AM MOLECULAR BIOLOGY PROFESSOR MKTO Urine Culture PSEUDOMONAS AERUGINOSA >100,000 cfu/mL (A) 03/30/2023 6:38 AM MOLECULAR BIOLOGY PROFESSOR [facility] Urine Culture KLEBSIELLA PNEUMONIAE COMPLEX 10,000-100,000 cfu/mL (A) 03/30/2023 6:38 AM MOLECULAR BIOLOGY PROFESSOR MKTO Urine (Urine, Midstream) 03/27/2023 10:03 AM MOLECULAR BIOLOGY PROFESSOR 03/27/2023 4:21 PM MOLECULAR BIOLOGY PROFESSOR Comment:Specimen Source Site : Urine Narrative Organism [...] Organization Address City/[facility]/ZIP Co de Phone Number [facility] [address] [place] [address], [facility] MKTO [facility] [place] [facility] [place] [address] [place] [address] * Test, POCT, Urine (Lab) (03/27/2023 10:03 AM MOLECULAR BIOLOGY PROFESSOR) Test, POCT, U Negative 03/27/2023 10:25 AM MOLECULAR BIOLOGY PROFESSOR NPRG Urine (Urine, Midstream) 03/27/2023 10:03 AM MOLECULAR BIOLOGY PROFESSOR 03/27/2023 10:17 AM MOLECULAR BIOLOGY PROFESSOR Mario Valle P.A.-C. LAB POCT OR DERABLES - DEVICE Performing Organization Address City/[facility] Co de Phone Number [facility] [address] [place] [address], [facility] NPRG [facility] [address] [place] [address] * CBC with Differential, Blood (03/27/2023 9:32 AM MOLECULAR BIOLOGY PROFESSOR) Only the most recent of5 resultswithin the time period is included. Hemoglobin 13.9 11.6 - 15.0 g/dL 03/27/2023 9:41 AM MOLECULAR BIOLOGY PROFESSOR NPRG Hematocrit 42.7 35.5 - 44.9 % 03/27/2023 9:41 AM MOLECULAR BIOLOGY PROFESSOR NPR[facility] Erythrocytes 4.95 3.92 - 5.13 x10(12)/L 03/27/2023 9:41 AM MOLECULAR BIOLOGY PROFESSOR NPR[facility] MCV 86.3 78.2 - 97.9 fL 03/27/2023 9:41 AM MOLECULAR BIOLOGY PROFESSOR NPR[facility] RBC Distrib Width 14.7 12.2 - 16.1 % 03/27/2023 9:41 AM MOLECULAR BIOLOGY PROFESSOR NPR[facility] Platelet Count 278 157 - 371 x10(9)/L 03/27/2023 9:41 AM MOLECULAR BIOLOGY PROFESSOR NPR[facility] Leukocytes 7.4 3.4 - 9.6 x10(9)/L 03/27/2023 9:41 AM MOLECULAR BIOLOGY PROFESSOR NPRG Neutrophils 5.52 1.56 - 6.45 x10(9)/L 03/27/2023 9:41 AM MOLECULAR BIOLOGY PROFESSOR NPR[facility] Lymphocytes 1.09 0.95 - 3.07 x10(9)/L 03/27/2023 9:41 AM MOLECULAR BIOLOGY PROFESSOR NPRG Monocytes 0.65 0.26 - 0.81 x10(9)/L 03/27/2023 9:41 AM MOLECULAR BIOLOGY PROFESSOR NPRG Eosinophils 0.16 0.03 - 0.48 x10(9)/L 03/27/2023 9:41 AM MOLECULAR BIOLOGY PROFESSOR NPRG Basophils 0.01 0.01 - 0.08 x10(9)/L 03/27/2023 9:41 AM MOLECULAR BIOLOGY PROFESSOR NPR[facility] Blood (Blood, Venous) 03/27/2023 9:32 AM MOLECULAR BIOLOGY PROFESSOR 03/27/2023 9:37 AM MOLECULAR BIOLOGY PROFESSOR Mario Valle P.A.-C. LAB BLOOD A DD-ON Performing Organization Address City/[facility]/ZIP Co de Phone Number [facility] [address] [place] [address], [facility] NPRG [place] [address] [place] [address] * (ABNORMAL) CRP (C-Reactive Protein) (03/27/2023 9:32 AM MOLECULAR BIOLOGY PROFESSOR) C-Reactive Protein (CRP), P 15.2(H) <5.0 mg/L 03/27/2023 10:02 AM MOLECULAR BIOLOGY PROFESSOR NPRG Blood (Blood, Venous) 03/27/2023 9:32 AM MOLECULAR BIOLOGY PROFESSOR 03/27/2023 9:37 AM MOLECULAR BIOLOGY PROFESSOR Mario ClarkCSona LAB BLOOD A DD-ON Performing Organization Address City/[facility]/ZIP Co de Phone Number [facility] [address] [place] [address], [facility] NPRG [facility] [place] [address] * Lipase (03/27/2023 9:32 AM MOLECULAR BIOLOGY PROFESSOR) Only the most recent of2 resultswithin the time period is included. Lipase, P 36 13 - 60 U/L 03/27/2023 10:02 AM MOLECULAR BIOLOGY PROFESSOR NPRG Blood (Blood, Venous) 03/27/2023 9:32 AM MOLECULAR BIOLOGY PROFESSOR 03/27/2023 9:37 AM MOLECULAR BIOLOGY PROFESSOR Mario Valle P.A.-C. LAB BLOOD A DD-ON [facility] [address] [place] [address], [facility] NPRG [facility] [address] [address] * Comprehensive Metabolic Panel (03/27/2023 9:32 AM MOLECULAR BIOLOGY PROFESSOR) Only the most recent of2 resultswithin the time period is included. Potassium, P 4.0 3.6 - 5.2 mmol/L 03/27/2023 10:02 AM MOLECULAR BIOLOGY PROFESSOR NPRG Sodium, P 139 135 - 145 mmol/L 03/27/2023 10:02 AM MOLECULAR BIOLOGY PROFESSOR NPRG Chloride, P 105 98 - 107 mmol/L 03/27/2023 10:02 AM MOLECULAR BIOLOGY PROFESSOR NPRG Bicarbonate, P 22 22 - 29 mmol/L 03/27/2023 10:02 AM MOLECULAR BIOLOGY PROFESSOR NPRG Anion Gap, P 12 7 - 15 03/27/2023 10:02 AM MOLECULAR BIOLOGY PROFESSOR NPRG BUN (Blood Urea Nitrogen), P 8 6 - 21 mg/dL 03/27/2023 10:02 AM MOLECULAR BIOLOGY PROFESSOR NPRG Creatinine 0.87 0.59 - 1.04 mg/dL 03/27/2023 10:02 AM MOLECULAR BIOLOGY PROFESSOR NPRG Estimated GFR (eGFR) 86 >=60 mL/min/BS A 03/27/2023 10:02 AM MOLECULAR BIOLOGY PROFESSOR NPRG Comment: Estimated GFR calculated using the 2020 CKD_EPI creatinine equation. Calcium, Total, P 9.1 8.6 - 10.0 mg/dL 03/27/2023 10:02 AM MOLECULAR BIOLOGY PROFESSOR NPRG Glucose, P 93 70 - 140 mg/dL 03/27/2023 10:02 AM MOLECULAR BIOLOGY PROFESSOR NPRG Protein, Total, P 6.5 6.3 - 7.9 g/dL 03/27/2023 10:02 AM MOLECULAR BIOLOGY PROFESSOR NPRG Albumin, P 4.0 3.5 - 5.0 g/dL 03/27/2023 10:02 AM MOLECULAR BIOLOGY PROFESSOR NPRG Aspartate Aminotransferase (AST), P 14 8 - 43 U/L 03/27/2023 10:02 AM MOLECULAR BIOLOGY PROFESSOR NPRG Alkaline Phosphatase, P 69 35 - 104 U/L 03/27/2023 10:02 AM MOLECULAR BIOLOGY PROFESSOR NPRG Alanine Aminotransferase (ALT), P 30 7 - 45 U/L 03/27/2023 10:02 AM MOLECULAR BIOLOGY PROFESSOR NPRG Bilirubin, Total, P 0.5 0.0 - 1.2 mg/dL 03/27/2023 10:02 AM MOLECULAR BIOLOGY PROFESSOR NPRG Blood (Blood, Venous) 03/27/2023 9:32 AM MOLECULAR BIOLOGY PROFESSOR 03/27/2023 9:37 AM MOLECULAR BIOLOGY PROFESSOR Mario Valle P.A.-C. LAB BLOOD A DD-ON [facility] [address] [place] [address], [facility] NPRG [facility] [address] [place] [address] * FL Esophagram Single Contrast (03/25/2023 10:08 AM MOLECULAR BIOLOGY PROFESSOR) Anatomical Region Laterality Modality Gastro Intestinal, Abdominal RST LOS, Abdominal ARZ LOS, Abdominal FLA LOS N/A Digital Radiography Impressions 03/25/2023 10:13 AM MOLECULAR BIOLOGY PROFESSOR Small sliding-type hiatal hernia. No reflux observed. Narrative 03/25/2023 10:13 AM MOLECULAR BIOLOGY PROFESSOR EXAM: FL ESOPHAGRAM SINGLE CONTRAST FINDINGS: Normal [...] reflux observed. Ronal Henderson M.D. IMG FLUOROSCOPY PA OCEDURES * Troponin T, 2h/6h, 5th Gen (03/12/2023 12:41 AM MOLECULAR BIOLOGY PROFESSOR) Pathologist [facility] Troponin T, 2 hr, 5th gen <6 <=10 ng/L 03/12/2023 1:03 AM MOLECULAR BIOLOGY PROFESSOR NPRG 2H Delta 0 ng/L 03/12/2023 1:03 AM MOLECULAR BIOLOGY PROFESSOR NPRG 2H Delta Interp Not Changing 03/12/2023 1:03 AM MOLECULAR BIOLOGY PROFESSOR NPRG Troponin T, 6 hr, 5th gen CANCELED ng/L 03/12/2023 1:03 AM MOLECULAR BIOLOGY PROFESSOR NPRG Comment:Result canceled by t he ancillary. 6H Delta CANCELED ng/L 03/12/2023 1:03 AM MOLECULAR BIOLOGY PROFESSOR NPRG Comment:Result canceled by t he ancillary. 6H Delta % CANCELED % 03/12/2023 1:03 AM MOLECULAR BIOLOGY PROFESSOR NPRG Comment:Result canceled by t he ancillary. Blood (Blood, Venous) 03/12/2023 12:41 AM MOLECULAR BIOLOGY PROFESSOR 03/12/2023 12:43 AM MOLECULAR BIOLOGY PROFESSOR Narrative [facility] - 03/12/2023 1:03 AM MOLECULAR BIOLOGY PROFESSOR Specimen Information: Specimen ID: [id number] Specimen Type: Blood Specimen Collection Start Date: 03/12/2023 12:41 AM Specimen Received Date: 03/12/2023 12:43 AM Specimen ID: [id number] Specimen Type: Blood Boyd Lynn M.D. LAB BLOOD TROPONIN [facility] [address] [place] [address], [facility] NPRG [facility] [address] [place] [address] * Troponin T, Baseline, 5th gen (03/11/2023 10:57 PM MOLECULAR BIOLOGY PROFESSOR) Troponin T, Baseline, 5th gen <6 <=10 ng/L 03/11/2023 11:50 PM MOLECULAR BIOLOGY PROFESSOR NPRG Blood (Blood, Venous) 03/11/2023 10:57 PM MOLECULAR BIOLOGY PROFESSOR 03/11/2023 11:01 PM MOLECULAR BIOLOGY PROFESSOR Boyd Lynn M.D. LAB BLOOD TROPONIN [facility] [address] [place] [address], [place] NPRG [facility] [address] [place] [address] * Basic Metabolic Panel (03/11/2023 10:57 PM MOLECULAR BIOLOGY PROFESSOR) Only the most recent of3 resultswithin the time period is included. Potassium, P 4.0 3.6 - 5.2 mmol/L 03/11/2023 11:25 PM MOLECULAR BIOLOGY PROFESSOR NPRG Sodium, P 139 135 - 145 mmol/L 03/11/2023 11:25 PM MOLECULAR BIOLOGY PROFESSOR NPRG Chloride, P 104 98 - 107 mmol/L 03/11/2023 11:25 PM MOLECULAR BIOLOGY PROFESSOR NPRG Bicarbonate, P 23 22 - 29 mmol/L 03/11/2023 11:25 PM MOLECULAR BIOLOGY PROFESSOR NPRG Anion Gap, P 12 7 - 15 03/11/2023 11:25 PM MOLECULAR BIOLOGY PROFESSOR NPRG BUN (Blood Urea Nitrogen), P 9 6 - 21 mg/dL 03/11/2023 11:25 PM MOLECULAR BIOLOGY PROFESSOR NPRG Creatinine 0.83 0.59 - 1.04 mg/dL 03/11/2023 11:25 PM MOLECULAR BIOLOGY PROFESSOR NPRG Estimated GFR (eGFR) >90 >=60 mL/min/BSA 03/11/2023 11:25 PM MOLECULAR BIOLOGY PROFESSOR NPRG Comment: Estimated GFR calculated using the 2020 CKD_EPI creatinine equation. Calcium, Total, P 9.6 8.6 - 10.0 mg/dL 03/11/2023 11:25 PM MOLECULAR BIOLOGY PROFESSOR NPRG Glucose, P 98 70 - 140 mg/dL 03/11/2023 11:25 PM MOLECULAR BIOLOGY PROFESSOR NPRG Blood (Blood, Venous) 03/11/2023 10:57 PM MOLECULAR BIOLOGY PROFESSOR 03/11/2023 11:01 PM MOLECULAR BIOLOGY PROFESSOR Boyd Lynn M.D. LAB BLOOD ADD-ON [facility] [address] [place] [address], [place] NPRG [facility] [address] [place] [address] * ECG 12 Lead (03/10/2023 10:21 AM MOLECULAR BIOLOGY PROFESSOR) Ventricular Rate ECG/Min 73 BPM MUSE PA Interval 132 ms MUSE QRSD Interval 90 ms MUSE QT Interval 416 ms MUSE QTC Interval 458 ms MUSE P [place] 66 degrees MUSE R [place] 14 degrees MUSE T Wave [place] -1 degrees MUSE 03/10/2023 10:2 1 AM MOLECULAR BIOLOGY PROFESSOR 03/10/2023 10:42 AM MOLECULAR BIOLOGY PROFESSOR Impressions MUSE - 03/10/2023 10:40 AM MOLECULAR BIOLOGY PROFESSOR Normal sinus rhythm Nonspecific ST and T [...] and Lateral 2 Views (03/10/2023 9:37 AM MOLECULAR BIOLOGY PROFESSOR) Anatomical Region Laterality Modality Chest, Thoracic RST LOS, Tho racic ARZ LOS, Thoracic FLA LOS N/A Digital Radiography Impressions 03/10/2023 9:38 AM MOLECULAR BIOLOGY PROFESSOR Stable chest, no acute cardiopulmonary disease. Narrative 03/10/2023 9:38 AM MOLECULAR BIOLOGY PROFESSOR EXAM: DX CHEST AP OR PA AND [...] 2, PCR Rapid Symptomatic (03/10/2023 8:49 AM MOLECULAR BIOLOGY PROFESSOR) SARS CoV-2, PCR, Rapid, V Undetected Undetected 03/10/2023 9:12 AM MOLECULAR BIOLOGY PROFESSOR NPRG Comment: ----ADDITIONAL INFORMATION---- This RT-PCR test was performed using the [facility] SARS-CoV-2 and Influenza A/B Reagent assay from [facility] [employer], which has received Emergency Use Authorization(EUA) by the U.S. Food and Drug Administration. Fact sheets for this Emergency Use Authorization (EUA) assay can be found at the following links: For Healthcare Providers: https://www.fda.gov/media/572211/download For Patients: https://www.fda.gov/media/991387/download SARS Coronavirus 2, Source, Rapid Swab, Nasopharynx 03/10/2023 8:49 AM MOLECULAR BIOLOGY PROFESSOR NPRG Swab (Nasopharynx) 03/10/2023 8:49 AM MOLECULAR BIOLOGY PROFESSOR 03/10/2023 8:49 AM MOLECULAR BIOLOGY PROFESSOR Jesus Manuel Hensley M.D. LAB MICROBIOLOGY - G ENERAL ORDERABLES [facility] [address] [place] [address], [facility] NPRG [facility] [address] [place] [address] * Influenza A/B and RSV, PCR, Point of Care (03/10/2023 8:49 AM MOLECULAR BIOLOGY PROFESSOR) Influenza A, POCT Negative Negative 03/10/2023 8:53 AM MOLECULAR BIOLOGY PROFESSOR NPRG Influenza B, POCT Negative Negative 03/10/2023 8:53 AM MOLECULAR BIOLOGY PROFESSOR NPRG Resp Syncytial Virus, POCT Negative Negative 03/10/2023 8:53 AM MOLECULAR BIOLOGY PROFESSOR NPRG Swab (Nasopharynx) 03/10/2023 8:49 AM MOLECULAR BIOLOGY PROFESSOR 03/10/2023 8:49 AM MOLECULAR BIOLOGY PROFESSOR Jesus Manuel Hensley M.D. LAB POCT ORDERABLES - DEVICE [facility] [address] [place] [address], [facility] NPRG [facility] [address] [place] [address] * (ABNORMAL) Urinalysis with Microscopic: Urine, Midstream (03/08/2023 2:43 PM MOLECULAR BIOLOGY PROFESSOR) Pathologist [facility] Source Urine, Urine, Midstream 03/08/2023 3:00 PM MOLECULAR BIOLOGY PROFESSOR MKTO Clarity Clear Clear 03/08/2023 3:00 PM MOLECULAR BIOLOGY PROFESSOR MKTO Color Yellow 03/08/2023 3:00 PM MOLECULAR BIOLOGY PROFESSOR MKTO Comment: ----REFERENCE VALUE---- Colorless Yellow Chasity Blood Negative Negative 03/08/2023 3:00 PM MOLECULAR BIOLOGY PROFESSOR MKTO Nitrite Negative Negative 03/08/2023 3:00 PM MOLECULAR BIOLOGY PROFESSOR MKTO Leukocyte Esterase Trace(A) Negative 03/08/2023 3:00 PM MOLECULAR BIOLOGY PROFESSOR MKTO Protein Negative mg/dL 03/08/2023 3:00 PM MOLECULAR BIOLOGY PROFESSOR MKTO Comment: ----REFERENCE VALUE---- Negative Trace Glucose Negative Negative mg/dL 03/08/2023 3:00 PM MOLECULAR BIOLOGY PROFESSOR MKTO Ketone Negative Negative mg/dL 03/08/2023 3:00 PM MOLECULAR BIOLOGY PROFESSOR MKTO Bilirubin Negative Negative 03/08/2023 3:00 PM MOLECULAR BIOLOGY PROFESSOR MKTO pH 8.5(A) 5.0 - 8.0 03/08/2023 3:00 PM MOLECULAR BIOLOGY PROFESSOR MKTO Specific [place] 1.007 1.001 - 1.035 03/08/2023 3:00 PM MOLECULAR BIOLOGY PROFESSOR MKTO Urobilinogen 0.2 0.2 - 1.0 mg/dL 03/08/2023 3:00 PM MOLECULAR BIOLOGY PROFESSOR MKTO White Blood Cells Occ-3 /hpf 03/08/2023 3:03 PM MOLECULAR BIOLOGY PROFESSOR MKTO Comment: ----REFERENCE VALUE---- Males: 0-3 Females: 0-10 Unknown: 0-10 Red Blood Cells None Seen 0 - 2 /hpf 3:03 PM MOLECULAR BIOLOGY PROFESSOR MKTO Squamous Cells Occ-3 /hpf 03/08/2023 3:03 PM MOLECULAR BIOLOGY PROFESSOR MKTO Urine (Urine, Midstream) 03/08/2023 2:43 PM MOLECULAR BIOLOGY PROFESSOR 03/08/2023 2:56 PM MOLECULAR BIOLOGY PROFESSOR Ronal Henderson M.D. LAB URINE ORDERABL ES [facility] [address] [place] [address], [facility] MKTO [facility] [place] [facility] [place] [address] [place] [address] from Last 3 Months Care Teams Bottom Scrubber Relationship Specialty Start Date End Date Elsewhere, Pcp PCP - General Internal Medicine 01/07/22
--- OUTSIDE RECORDS SUMMARY | 2023-04-25 08:11 | XMS_ITS | Encounter Summary ---
Author Name Unknown Organization [facility] Address [address] [place] [address] Care Team Providers Care Cigar Sorter Name Role Phone Elsewhere, Pcp Primary Care Provider Unavailabl e Reason for Referral * MRI/CAT/PET Scan (Routine) - Closed Specialty Diagnoses / Procedures Referred By Polinaac t Referred To Contact Radiology Diagnoses Abdominal Pain Procedures CT Abdomen Pelvis with IV Contrast Mario Valle P.A.-C. [address] [place] [phone] [facility] Referral ID Status Reason Start Date Expiration Date Visits Re quested Visits Authorized [id number] Closed 03/27/2023 03/26/2024 1 1 RWORKER LASTING Reason for Visit * MRI/CAT/PET Scan (Routine) - Closed Specialty Diagnoses / Procedures Referred By Contac t Referred To Contact Radiology Diagnoses Abdominal Pain Procedures CT Abdomen Pelvis with IV Contrast Mario Valle P.A.-C. [address] [place] [phone] [facility] Referral ID Status Reason Start Date Expiration Date Visits Re quested Visits Authorized [id number] Closed 03/27/2023 03/26/2024 1 1 Encounter Details Date Type Department Care Team (Latest Contact Info) Description 03/27/2023 10:14 AM FLOORWORKER LASTING - 03/27/2023 11:59 PM FLOORWORKER LASTING Hospital Encounter Department of Radiology in [place], [place] [address] [place] [phone] Mario Valle P.A.-C. [address] [place] [phone] Abdominal Pain Discharge Disposition: Home or [...] often do you attend chur ch or catholic services? 1 to 4 times per year [...] Answer Date Recorded PHQ-2 Score 0 12/10/2021 [facility] - Occupational [...] inpatients and all outpatients) 03/27/2023 10:35 AM FLOORWORKER LASTING Abdominal Pain documented in this encounter Results * CT Abdomen Pelvis with IV Contrast (03/27/2023 10:35 AM FLOORWORKER LASTING) Anatomical Region Laterality Modality Abdomen, Pelvis, Abdominal R ST LOS, Abdominal ARZ LOS, Abdominal FLA LOS N/A Computed Tomography 03/27/2023 10:3 9 AM FLOORWORKER LASTING Impressions 03/27/2023 11:01 AM FLOORWORKER LASTING 1. Normal-appearing appendix. 2. No acute intra-abdominal/pelvic pathology, no CT findings to explain the patient's symptoms of right lower quadrant abdominal pain. Narrative 03/27/2023 11:01 AM FLOORWORKER LASTING EXAM: CT ABDOMEN PELVIS WITH IV CONTRAST [...] appendix in the right lower quadrant on -234 of series 3. No small bowel or [...] lower quadrant abdominal pain. Mario Valle P.A.-C. [facility] PROC EDURES documented in this encounter [...] Radiant Medication Guidelines Given 03/27/2023 10:36 AM FLOORWORKER LASTING 140 mL NaCl 0.9 % bolus 100 mL 100 mL, intravenous, at 100 mL/hr, Administer over 1 Hours, Once in imaging, Post Contrast, Starting on 03/27/23 at 1025, For 1 dose Bolus from Bag 03/27/2023 10:40 AM FLOORWORKER LASTING 100 mL 100 mL/hr sodium chloride 0.9 % injection 10 mL 10 mL, intravenous, Once in imaging, line care, Starting on 03/27/23 at 1025, For 1 dose Given 03/27/2023 10:36 AM FLOORWORKER LASTING 10 mL documented in this encounter Additional Health Concerns Assessment Noted Time PHQ-9 Depression Total Score: 3 04/23/19 22 8:30 AM FLOORWORKER LASTING documented as of this encounter Care Teams Cigar Sorter Relationship Specialty Start Date End Date Elsewhere, Pcp PCP - General Internal Medicine 01/07/22 documented as of this encounter
--- OUTSIDE RECORDS SUMMARY | 2023-04-25 08:11 | XMS_ITS | Encounter Summary ---
Author Name Unknown Organization [facility] Address [address] [place] [address] Care Team Providers Care Tobacco Hanger Name Role Phone Elsewhere, Pcp Primary Care Provider Unavailabl e Encounter Details Date Type Department Care Team (Late st Contact Info) Description 03/30/2023 Orders Only Urgent Care, [facility], in [place], [place] [address] [place] [phone] Mario Valle, P.A.-C. [address], [place] [phone] Urinary Tract Infection Site Not Specified (Primary [...] How often do you attend [facility] or anabaptist services? 1 to 4 times [...] Score 0 12/10/2021 [facility] - Occupational [...] Total Score: 3 04/23/19 22 8:30 AM BATTERY REPAIRER documented as of this encounter Care Teams Tobacco Hanger Relationship Specialty Start Date End Date Elsewhere, Pcp PCP - General Internal Medicine 01/07/22 documented as of this encounter
--- OUTSIDE RECORDS SUMMARY | 2023-04-25 08:12 | XMS_ITS | Encounter Summary ---
Author Name Unknown Organization [facility] Address [address] [place] [address] Care Team Providers Care Composite Bond Worker Name Role Phone Elsewhere, Pcp Primary Care Provider Unavailabl e Reason for Visit * Reason Comments Heartburn X 1 mos getting wors e Encounter Details Date Type Department Care Team (Late st Contact Info) Description 02/15/2023 1:45 PM VET ASSISTANT Office Visit Urgent Care, [facility], in [place], [place] [address] [place] [phone] Lela Aguiar, P.A.-CSona [address] [place] [phone] Pain Epigastric (Primary Dx) Discharge Disposition: Home [...] often do you attend chur ch or oriental orthodox services? 1 to 4 times per year 04/03/2022 Do you belong to any clubs o r organizations such as sikh groups, unions, fraternal or athletic groups, or [...] Answer Date Recorded PHQ-2 Score 0 12/10/2021 [facility] - Occupational [...] Comments Blood Pressure 121/87 02/15/2023 1:53 PM VET ASSISTANT Pulse 87 02/15/2023 1:53 PM VET ASSISTANT Temperature 36.3 ??C (97.3 ??F) 02/15/2023 1:53 PM CS T Respiratory Rate - - Oxygen Saturation 100% 02/15/2023 1:53 PM VET ASSISTANT Inhaled Oxygen Concentration - - Weight - [...] Body Mass Index 40.0-44.9 Adult ([facility]) 06/05/2021 Bleeding Postcoital 01/30/2022 Resolved Ambulatory [...] by: Lela Aguiar P.A.-C. 02/15/23 6:16 PM VET ASSISTANT ASSISTANT documented in this encounter Plan of Treatment Not on file documented as of this encounter Procedures Procedure Name Priority Date/Time Associated Diagnosis Comments CBC WITH DIFFERENTIAL, B STAT 02/15/2023 2:35 PM VET ASSISTANT Pain Epigastric BASIC METABOLIC PANEL, S/P STAT 02/15/2023 2:35 PM VET ASSISTANT Pain Epigastric documented in this encounter Results * Basic Metabolic Panel (02/15/2023 2:35 PM VET ASSISTANT) Potassium, P 4.1 3.6 - 5.2 mmol/L 02/15/2023 3:05 PM VET ASSISTANT NPRG Sodium, P 139 135 - 145 mmol/L 02/15/2023 3:05 PM VET ASSISTANT NPRG Chloride, P 105 98 - 107 mmol/L 02/15/2023 3:05 PM VET ASSISTANT NPRG Bicarbonate, P 25 22 - 29 mmol/L 02/15/2023 3:05 PM VET ASSISTANT NPRG Anion Gap, P 9 7 - 15 02/15/2023 3:05 PM VET ASSISTANT NPRG BUN (Blood Urea Nitrogen), P 10 6 - 21 mg/dL 02/15/2023 3:05 PM VET ASSISTANT NPRG Creatinine 0.82 0.59 - 1.04 mg/dL 02/15/2023 3:05 PM VET ASSISTANT NPRG Estimated GFR (eGFR) >90 >=60 mL/min/BSA 02/15/2023 3:05 PM VET ASSISTANT NPRG Comment: Estimated GFR calculated using the 2020 CKD_EPI creatinine equation. Calcium, Total, P 8.9 8.6 - 10.0 mg/dL 02/15/2023 3:05 PM VET ASSISTANT NPRG Glucose, P 85 70 - 140 mg/dL 02/15/2023 3:05 PM VET ASSISTANT NPRG Blood (Blood, Venous) 02/15/2023 2:35 PM VET ASSISTANT 02/15/2023 2:39 PM VET ASSISTANT Lela Aguiar P.A.-C. LAB BLOOD ADD-ON [facility] [address] [place] [address], [facility] NPRG [facility] [address] [place] [address] * CBC with Differential, Blood (02/15/2023 2:35 PM VET ASSISTANT) Pathologist [facility] Hemoglobin 12.5 11.6 - 15.0 g/dL 02/15/2023 2:48 PM VET ASSISTANT NPRG Hematocrit 39.2 35.5 - 44.9 % 02/15/2023 2:48 PM VET ASSISTANT NPRG Erythrocytes 4.56 3.92 - 5.13 x10(12)/L 02/15/2023 2:48 PM VET ASSISTANT NPRG MCV 86.0 78.2 - 97.9 fL 02/15/2023 2:48 PM VET ASSISTANT NPRG RBC Distrib Width 14.9 12.2 - 16.1 % 02/15/2023 2:48 PM VET ASSISTANT NPRG Platelet Count 285 157 - 371 x10(9)/L 02/15/2023 2:48 PM VET ASSISTANT NPRG Leukocytes 8.8 3.4 - 9.6 x10(9)/L 02/15/2023 2:48 PM VET ASSISTANT NPRG Neutrophils 5.53 1.56 - 6.45 x10(9)/L 02/15/2023 2:48 PM VET ASSISTANT NPRG Lymphocytes 2.50 0.95 - 3.07 x10(9)/L 02/15/2023 2:48 PM VET ASSISTANT NPRG Monocytes 0.53 0.26 - 0.81 x10(9)/L 02/15/2023 2:48 PM VET ASSISTANT NPRG Eosinophils 0.19 0.03 - 0.48 x10(9)/L 02/15/2023 2:48 PM VET ASSISTANT NPRG Basophils 0.03 0.01 - 0.08 x10(9)/L 02/15/2023 2:48 PM VET ASSISTANT NPRG Blood (Blood, Venous) 02/15/2023 2:35 PM VET ASSISTANT 02/15/2023 2:39 PM VET ASSISTANT Lela Aguiar P.A.-C. LAB BLOOD ADD-ON [facility] [address] [place] [address], [facility] NPRG [facility] [address] [place] [address] documented in this encounter Visit Diagnoses Diagnosis [...] prior to administration Given 02/15/2023 2:42 PM VET ASSISTANT 45 mL Audra th documented in this encounter Additional Health Concerns Assessment Noted Time PHQ-9 Depression Total Score: 3 04/23/19 22 8:30 AM VET ASSISTANT documented as of this encounter Care Teams Composite Bond Worker Relationship Specialty Start Date End Date Elsewhere, Pcp PCP - General Internal Medicine 01/07/22 documented as of this encounter
--- OUTSIDE RECORDS SUMMARY | 2023-04-25 08:12 | XMS_ITS | Encounter Summary ---
Author Name Unknown Organization [facility] Address [address] [place] [address] Care Team Providers Care Athletic Events Scorer Name Role Phone Elsewhere, Pcp Primary Care Provider Unavailabl e Reason for Referral * Outpatient (Routine) - Closed Specialty Diagnoses / Procedures Referred By Polinaac t Referred To Contact Diagnoses Pain Left Lower Quadrant Procedures FL Esophagram Single Contrast Ronal Henderson M.D. [address] [place] [phone] [facility] Referral ID Status Reason Start Date Expiration Date Visits Re quested Visits Authorized [id number] Closed 03/08/2023 03/07/2024 1 1 MOTIVE BRAKE ADJUSTER Reason for Visit * Outpatient (Routine) - Closed Specialty Diagnoses / Procedures Referred By Tania t Referred To Contact Diagnoses Pain Left Lower Quadrant Procedures FL Esophagram Single Contrast Ronal Henderson M.D. [address] [place] [phone] [facility] Referral ID Status Reason Start Date Expiration Date Visits Re quested Visits Authorized [id number] Closed 03/08/2023 03/07/2024 1 1 Encounter Details Date Type Department Care Team (Latest Contact Info) Description 03/25/2023 9:23 AM AUTOMOTIVE BRAKE ADJUSTER - 03/25/2023 11:59 PM AUTOMOTIVE BRAKE ADJUSTER Hospital Encounter Department of Radiology, [facility], in [place], [place] [address] [place] [phone] Ronal Henderson M.D. [address] [place] [phone] Paul Car M.D. [address] [place] [phone] Pain Left Lower Quadrant Discharge [...] often do you attend chur ch or baptism services? 1 to 4 times per year [...] Answer Date Recorded PHQ-2 Score 0 12/10/2021 [facility] - [...] inpatients and all outpatients) 03/25/2023 10:08 AM AUTOMOTIVE BRAKE ADJUSTER Pain Left Lower Quadrant documented in this encounter Results * FL Esophagram Single Contrast (03/25/2023 10:08 AM AUTOMOTIVE BRAKE ADJUSTER) Anatomical Region Laterality Modality Gastro Intestinal, Abdominal RST LOS, Abdominal ARZ LOS, Abdominal FLA LOS N/A Digital Radiography Impressions 03/25/2023 10:13 AM AUTOMOTIVE BRAKE ADJUSTER Small sliding-type hiatal hernia. No reflux observed. Narrative 03/25/2023 10:13 AM AUTOMOTIVE BRAKE ADJUSTER EXAM: FL ESOPHAGRAM SINGLE CONTRAST FINDINGS: Normal [...] reflux observed. Ronal Henderson M.D. [facility]MM[facility] FLUOROSCOPY [place] OCEDURES documented in this encounter Visit Diagnoses [...] For 1 dose Given 03/25/2023 10:11 AM AUTOMOTIVE BRAKE ADJUSTER 60 mL barium 98 % oral powder for suspension 90 mL ([id number]) 90 mL, oral, Once in imaging, contrast, Starting on Belinda 03/25/23 at 1010, For 1 dose Given 03/25/2023 10:12 AM AUTOMOTIVE BRAKE ADJUSTER 90 mL documented in this encounter Additional Health Concerns Assessment Noted Time PHQ-9 Depression Total Score: 3 04/23/19 22 8:30 AM AUTOMOTIVE BRAKE ADJUSTER documented as of this encounter Care Teams Athletic Events Scorer Relationship Specialty Start Date End Date Elsewhere, Pcp PCP - General Internal Medicine 01/07/22 documented as of this encounter
--- OUTSIDE RECORDS SUMMARY | 2023-04-25 08:12 | XMS_ITS | Encounter Summary ---
Author Name Unknown Organization [facility] Address [address] [place] [address] Care Team Providers Care Continuity Reader Name Role Phone Elsewhere, Pcp Primary Care Provider Unavailabl e Encounter Details Date Type Department Care Team (Latest Contact Info) Description 03/02/2023 Clinical Communication Division of Gastroenterology in [place], [place] [address] [place] [phone] Thaddeus Cosme M.D., Ph.D. [address] [place] [phone] Social History Tobacco Use Types Packs/Day Years [...] often do you attend chur ch or jain services? 1 to 4 times per year 04/03/2022 Do you belong to any clubs o r organizations such as synagogue groups, unions, fraternal or athletic groups, or [...] Answer Date Recorded PHQ-2 Score 0 12/10/2021 [facility] - [...] Pending 03/10/2023 03/10/2023 03/10/2023 9 :12 AM STORE WAREHOUSE ASSOCIATE Assessment Noted Time PHQ-9 Depression Total Score: 3 04/23/19 22 8:30 AM STORE WAREHOUSE ASSOCIATE documented as of this encounter Care Teams Continuity Reader Relationship Specialty Start Date End Date Elsewhere, Pcp PCP - General Internal Medicine 01/07/22 documented as of this encounter
--- OUTSIDE RECORDS SUMMARY | 2023-04-25 08:12 | XMS_ITS | Encounter Summary ---
Author Name Unknown Organization [facility] Address [address] [place] [address] Care Team Providers Care Slurry Man Name Role Phone Elsewhere, Pcp Primary Care Provider Unavailabl e Reason for Referral * Outpatient (Routine) - Authorized Specialty Diagnoses / Procedures Referred By Tania beckett Referred To Contact Emergency Medicine Diagnoses Pain Left Lower Quadrant Pain Left Upper Quadrant Ronal Henderson M.D. [facility] [place] [address] [facility] Region Referral ID Status Reason Start Date Expiration Date V isits Requested Visits Authorized [id number] Authorized 03/08/2023 03/07/2026 1 1 Scheduling Instructions Patient will likely require EGD NT APPLICATION SUPPORT ENGINEER * Outpatient (Routine) - Closed Specialty Diagnoses / Procedures Referred By Tania beckett Referred To Contact Diagnoses Pain Left Lower Quadrant Procedures FL Esophagram Single Contrast Ronal Henderson M.D. [address] [place] [address] [facility] Region Referral ID Status Reason Start Date Expiration Date Visits Re quested Visits Authorized [id number] Closed 03/08/2023 03/07/2024 1 1 NT APPLICATION SUPPORT ENGINEER Reason for Visit * Reason Comments Abdominal Pain Abd and epigastric p ain for several months. Has appt with GI in a few months. Today has worsening pain and nausea. Encounter Details Date Type Department Care Team (Late st Contact Info) Description 03/08/2023 1:52 PM CLIENT APPLICATION SUPPORT ENGINEER - 03/08/2023 4:01 PM CLIENT APPLICATION SUPPORT ENGINEER Emergency [facility] Emergency Department [address] [place] [address] Ronal Henderson M.D. [address] [place] [address] Pain Left Lower Quadrant (Primary [...] Date Recorded PHQ-2 Score 0 12/10/2021 [facility] - Occupational Stress Questionnaire Answer Date [...] Comments Blood Pressure 128/112 03/08/2023 3:45 PM CLIENT APPLICATION SUPPORT ENGINEER Pulse 79 03/08/2023 3:45 PM CLIENT APPLICATION SUPPORT ENGINEER Temperature 36.6 ??C (97.9 ??F) 03/08/2023 1:51 PM CS T Respiratory Rate 20 03/08/2023 1:51 PM CLIENT APPLICATION SUPPORT ENGINEER Oxygen Saturation 99% 03/08/2023 3:45 PM CLIENT APPLICATION SUPPORT ENGINEER Inhaled Oxygen Concentration - - Weight 106 kg (233 lb 11 oz) 03/08/2023 1:51 PM CLIENT APPLICATION SUPPORT ENGINEER Height - - Body Mass Index 37.72 08/30/2022 9:01 PM CDT documented in this encounter Discharge Instructions * Discharge Instructions* Ronal Henderson M.D. - 03/08/2023 3:38 PM CLIENT APPLICATION SUPPORT ENGINEER I have requested upper GI fluoroscopy and very prompt GI follow up. In the interim please try Bentryl for symptom control. NT APPLICATION SUPPORT ENGINEER * Attachments The following attachments cannot be sent through Care Everywhere. * Abdominal Pain Adult [id number] (Burmese) documented in this encounter Medications at Time [...] does report very thorough workup from outside [facility] facility which includes 9 CT scans, [...] Abdominal Pain Ronal Henderson M.D. 03/09/23 0723 NT APPLICATION SUPPORT ENGINEER documented in this encounter Plan of Treatment Scheduled Referrals Name Type Priority Associated Diagnoses Order Schedule POST ED VISIT Gastroenterology and Hepatology Outpatient Referral Routine Pain Left Lower Quadrant Pain Left Upper Quadrant Expected: 03/08/2023 (Approximate), Expires: 06/06/2024 documented as of this encounter Procedures Procedure Name Priority Date/Time Associated Diagnosis Comments CBC WITH DIFFERENTIAL, B STAT 03/08/2023 2:50 PM CLIENT APPLICATION SUPPORT ENGINEER LIPASE, S/P STAT 03/08/2023 2:50 PM CLIENT APPLICATION SUPPORT ENGINEER COMPREHENSIVE METABOLIC PANEL, S/P STAT 03/08/2023 2:50 PM CLIENT APPLICATION SUPPORT ENGINEER URINALYSIS WITH MICROSCOPIC STAT 03/08/2023 2:43 PM CLIENT APPLICATION SUPPORT ENGINEER documented in this encounter Results * FL Esophagram Single Contrast (03/25/2023 10:08 AM CLIENT APPLICATION SUPPORT ENGINEER) Anatomical Region Laterality Modality Gastro Intestinal, Abdominal RST LOS, Abdominal ARZ LOS, Abdominal FLA LOS N/A Digital Radiography Impressions 03/25/2023 10:13 AM CLIENT APPLICATION SUPPORT ENGINEER Small sliding-type hiatal hernia. No reflux observed. Narrative 03/25/2023 10:13 AM CLIENT APPLICATION SUPPORT ENGINEER EXAM: FL ESOPHAGRAM SINGLE CONTRAST FINDINGS: Normal [...] reflux observed. Ronal Henderson M.D. IMG FLUOROSCOPY MT OCEDURES * Lipase (03/08/2023 2:50 PM CLIENT APPLICATION SUPPORT ENGINEER) Lipase, P 52 13 - 60 U/L 03/08/2023 3: 19 PM CLIENT APPLICATION SUPPORT ENGINEER [facility] Blood (Blood, Venous) 03/08/2023 2:50 PM CLIENT APPLICATION SUPPORT ENGINEER 03/08/2023 2:55 PM CLIENT APPLICATION SUPPORT ENGINEER Ronal Henderson M.D. LAB BLOOD ADD-ON [facility] [address] [place] [address], [facility] [place] [address] [place] [phone] * (ABNORMAL) CBC with Differential, Blood (03/08/2023 2:50 PM CLIENT APPLICATION SUPPORT ENGINEER) [facility] Hemoglobin 14.8 11.6 - 15.0 g/dL 03/08/2023 3:01 PM CLIENT APPLICATION SUPPORT ENGINEER [facility] Hematocrit 44.7 35.5 - 44.9 % 03/08/2023 3:01 PM CLIENT APPLICATION SUPPORT ENGINEER [facility] Erythrocytes 5.29(H) 3.92 - 5.13 x10(12)/L 03/08/2023 3:01 PM CLIENT APPLICATION SUPPORT ENGINEER [facility] MCV 84.5 78.2 - 97.9 fL 03/08/2023 3:01 PM CLIENT APPLICATION SUPPORT ENGINEER [facility] RBC Distrib Width 13.6 12.2 - 16.1 % 03/08/2023 3:01 PM CLIENT APPLICATION SUPPORT ENGINEER [facility] Platelet Count 303 157 - 371 x10(9)/L 03/08/2023 3:01 PM CLIENT APPLICATION SUPPORT ENGINEER [facility] Leukocytes 8.8 3.4 - 9.6 x10(9)/L 03/08/2023 3:01 PM CLIENT APPLICATION SUPPORT ENGINEER [facility] Neutrophils 5.44 1.56 - 6.45 x10(9)/L 03/08/2023 3:00 PM CLIENT APPLICATION SUPPORT ENGINEER [facility] Lymphocytes 2.64 0.95 - 3.07 x10(9)/L 03/08/2023 3:01 PM CLIENT APPLICATION SUPPORT ENGINEER [facility] Monocytes 0.54 0.26 - 0.81 x10(9)/L 03/08/2023 3:01 PM CLIENT APPLICATION SUPPORT ENGINEER [facility] Eosinophils 0.16 0.03 - 0.48 x10(9)/L 03/08/2023 3:01 PM CLIENT APPLICATION SUPPORT ENGINEER [facility] Basophils 0.05 0.01 - 0.08 x10(9)/L 03/08/2023 3:01 PM CLIENT APPLICATION SUPPORT ENGINEER [facility] Blood (Blood, Venous) 03/08/2023 2:50 PM CLIENT APPLICATION SUPPORT ENGINEER 03/08/2023 2:55 PM CLIENT APPLICATION SUPPORT ENGINEER Ronal Henderson M.D. LAB BLOOD ADD-ON [facility] [address] [place] [address], [facility] [place] [address] [place] [address] * Comprehensive Metabolic Panel (03/08/2023 2:50 PM CLIENT APPLICATION SUPPORT ENGINEER) [facility] Potassium, P 3.7 3.6 - 5.2 mmol/L 03/08/2023 3:19 PM CLIENT APPLICATION SUPPORT ENGINEER [facility] Sodium, P 138 135 - 145 mmol/L 03/08/2023 3:19 PM CLIENT APPLICATION SUPPORT ENGINEER [facility] Chloride, P 102 98 - 107 mmol/L 03/08/2023 3:19 PM CLIENT APPLICATION SUPPORT ENGINEER [facility] Bicarbonate, P 23 22 - 29 mmol/L 03/08/2023 3:19 PM CLIENT APPLICATION SUPPORT ENGINEER [facility] Anion Gap, P 13 7 - 15 03/08/2023 3:19 PM CLIENT APPLICATION SUPPORT ENGINEER [facility] BUN (Blood Urea Nitrogen), P 14 6 - 21 mg/dL 03/08/2023 3:19 PM CLIENT APPLICATION SUPPORT ENGINEER [facility] Creatinine 0.92 0.59 - 1.04 mg/dL 03/08/2023 3:19 PM CLIENT APPLICATION SUPPORT ENGINEER [facility] Estimated GFR (eGFR) 80 >=60 mL/min/BS A 03/08/2023 3:19 PM CLIENT APPLICATION SUPPORT ENGINEER [facility] Comment: Estimated GFR calculated using the 2020 CKD_EPI creatinine equation. Calcium, Total, P 10.0 8.6 - 10.0 mg/dL 03/08/2023 3:19 PM CLIENT APPLICATION SUPPORT ENGINEER [facility] Glucose, P 89 70 - 140 mg/dL 03/08/2023 3:19 PM CLIENT APPLICATION SUPPORT ENGINEER [facility] Protein, Total, P 7.2 6.3 - 7.9 g/dL 03/08/2023 3:19 PM CLIENT APPLICATION SUPPORT ENGINEER [facility] Albumin, P 4.4 3.5 - 5.0 g/dL 03/08/2023 3:19 PM CLIENT APPLICATION SUPPORT ENGINEER [facility] Aspartate Aminotransferase (AST), P 16 8 - 43 U/L 03/08/2023 3:19 PM CLIENT APPLICATION SUPPORT ENGINEER [facility] Alkaline Phosphatase, P 76 35 - 104 U/L 03/08/2023 3:19 PM CLIENT APPLICATION SUPPORT ENGINEER [facility] Alanine Aminotransferase (ALT), P 10 7 - 45 U/L 03/08/2023 3:19 PM CLIENT APPLICATION SUPPORT ENGINEER [facility] Bilirubin, Total, P 0.4 0.0 - 1.2 mg/dL 03/08/2023 3:19 PM CLIENT APPLICATION SUPPORT ENGINEER [facility] Blood (Blood, Venous) 03/08/2023 2:50 PM CLIENT APPLICATION SUPPORT ENGINEER 03/08/2023 2:55 PM CLIENT APPLICATION SUPPORT ENGINEER Ronal Henderson M.D. LAB BLOOD ADD-ON [facility] [address] [place] [address], [facility] [place] [address] [place] [address] * (ABNORMAL) Urinalysis with Microscopic: Urine, Midstream (03/08/2023 2:43 PM CLIENT APPLICATION SUPPORT ENGINEER) Source Urine, Urine, Midstream 03/08/2023 3:00 PM CLIENT APPLICATION SUPPORT ENGINEER [facility] Clarity Clear Clear 03/08/2023 3:00 PM CLIENT APPLICATION SUPPORT ENGINEER [facility] Color Yellow 03/08/2023 3:00 PM CLIENT APPLICATION SUPPORT ENGINEER [facility] Comment: ----REFERENCE VALUE---- Colorless Yellow Chasity Blood Negative Negative 03/08/2023 3:00 PM CLIENT APPLICATION SUPPORT ENGINEER [facility] Nitrite Negative Negative 03/08/2023 3:00 PM CLIENT APPLICATION SUPPORT ENGINEER [facility] Leukocyte Esterase Trace(A) Negative 03/08/2023 3:00 PM CLIENT APPLICATION SUPPORT ENGINEER [facility] Protein Negative mg/dL 03/08/2023 3:00 PM CLIENT APPLICATION SUPPORT ENGINEER [facility] Comment: ----REFERENCE VALUE---- Negative Trace Glucose Negative Negative mg/dL 03/08/2023 3:00 PM CLIENT APPLICATION SUPPORT ENGINEER [facility] Ketone Negative Negative mg/dL 03/08/2023 3:00 PM CLIENT APPLICATION SUPPORT ENGINEER [facility] Bilirubin Negative Negative 03/08/2023 3:00 PM CLIENT APPLICATION SUPPORT ENGINEER [facility] pH 8.5(A) 5.0 - 8.0 03/08/2023 3:00 PM CLIENT APPLICATION SUPPORT ENGINEER [facility] Specific [place] 1.007 1.001 - 1.035 03/08/2023 3:00 PM CLIENT APPLICATION SUPPORT ENGINEER [facility] Urobilinogen 0.2 0.2 - 1.0 mg/dL 03/08/2023 3:00 PM CLIENT APPLICATION SUPPORT ENGINEER [facility] White Blood Cells Occ-3 /hpf 03/08/2023 3:03 PM CLIENT APPLICATION SUPPORT ENGINEER [facility] Comment: ----REFERENCE VALUE---- Males: 0-3 Females: 0-10 Unknown: 0-10 Red Blood Cells None Seen 0 - 2 /hpf 3:03 PM CLIENT APPLICATION SUPPORT ENGINEER [facility] Squamous Cells Occ-3 /hpf 03/08/2023 3:03 PM CLIENT APPLICATION SUPPORT ENGINEER [facility] Urine (Urine, Midstream) 03/08/2023 2:43 PM CLIENT APPLICATION SUPPORT ENGINEER 03/08/2023 2:56 PM CLIENT APPLICATION SUPPORT ENGINEER Ronal Henderson M.D. LAB URINE ORDERABL ES [facility] [address] [place] [address], [facility] [place] [address] [place] [address] documented in this encounter Visit Diagnoses Diagnosis [...] For 1 dose Given 03/08/2023 2:50 PM CLIENT APPLICATION SUPPORT ENGINEER 25 mg droPERidoL injection 1.25 mg (INAPSINE) 1.25 mg, intravenous, Once, On Wed03/08/23 at 1428, For 1 dose Given 03/08/2023 2:50 PM CLIENT APPLICATION SUPPORT ENGINEER 1.25 mg ketorolac injection 15 mg (TORADOL) 15 mg, intravenous, Once, On Wed03/08/23 at 1428, For 1 dose, Adult IV push rate: Over 15 seconds. Peds IV push rate: Over 1 minute. Doses > 15 mg IV/IM are discouraged due to lack of additional analgesic benefit. Given 03/08/2023 2:50 PM CLIENT APPLICATION SUPPORT ENGINEER 15 mg sodium chloride 0.9 % injection 2-10 mL 2-10 mL, intravenous, As needed, line care, Starting on Wed03/08/23 at 1427 documented in this encounter Active and Recently Administered Medications Times are shown in CLIENT APPLICATION SUPPORT ENGINEER. Scheduled Medication Order 03/06/2023 03/07/2023 03/08/2023 diphenhydrAMINE [...] Total Score: 3 04/23/19 22 8:30 AM CLIENT APPLICATION SUPPORT ENGINEER documented as of this encounter Care Teams Slurry Man Relationship Specialty Start Date End Date Elsewhere, Pcp PCP - General Internal Medicine 01/07/22 documented as of this encounter
--- OUTSIDE RECORDS SUMMARY | 2023-04-25 08:12 | XMS_ITS | Encounter Summary ---
Author Name Unknown Organization [facility] Address [address] [place] [address] Care Team Providers Care Nursing Technician Name Role Phone Elsewhere, Pcp Primary [...] st Contact Info) Description 03/12/2023 8:27 AM RECONNAISSANCE CREWMEMBER - 03/12/2023 9:[address] [facility] [place] [facility] [address] [place] [phone] Wendy Calzada D.O. [address] [place] [phone] Dysphagia (Primary Dx); Foreign Body Swallowed Initial [...] Answer Date Recorded PHQ-2 Score 0 12/10/2021 [facility] [place] [facility] - Occupational Stress [...] Comments Blood Pressure 157/83 03/12/2023 8:30 AM RECONNAISSANCE CREWMEMBER Pulse 83 03/12/2023 8:45 AM RECONNAISSANCE CREWMEMBER Temperature 36.4 ??C (97.5 ??F) 03/12/2023 8:34 AM CS T Respiratory Rate 16 03/12/2023 8:34 AM RECONNAISSANCE CREWMEMBER Oxygen Saturation 100% 03/12/2023 8:45 AM RECONNAISSANCE CREWMEMBER Inhaled Oxygen Concentration - - Weight 96 kg (211 lb 10.3 oz) 03/12/2023 8:34 AM RECONNAISSANCE CREWMEMBER Height - - Body Mass Index 34.16 03/10/2023 8:53 AM RECONNAISSANCE CREWMEMBER documented in this encounter Discharge Instructions * Discharge Instructions* Wendy Calzada D.O. - 03/12/2023 8:58 AM RECONNAISSANCE CREWMEMBER It is okay to sip on warm/cold water for your discomfort. Take Tylenol every 6 hours as needed. If symptoms are still present on Wednesday, you can follow up with Gastroenterology to discuss endoscopy. NNAISSANCE CREWMEMBER documented in this encounter Medications at Time [...] mL susp (45 mL oral Given 03/12/23 0830) MDM: IMPRESSION AND PLAN Patient presents with [...] and Hepatology, Internal Medicine [facility], [address] [phone] Next Steps: Follow up Instructions: As needed Becky Resendez Sarah, D.O. 03/13/23 1600 [employer]ISS[employer] CREWMEMBER documented in this encounter Plan of Treatment [...] prior to administration Given 03/12/2023 8:44 AM RECONNAISSANCE CREWMEMBER 45 mL documented in this encounter Active and Recently Administered Medications Times are shown in RECONNAISSANCE CREWMEMBER. Scheduled Medication Order 03/10/2023 03/11/2023 03/12/2023 lidocaine viscous 2 % 15 mL, alum-mag hydroxide-simeth 30 mL susp (COMPLETED) 45 mL, oral, Once, On Wed03/12/23 at 0840, For 1 dose, Mix ingredients prior to administration 0844 (Given - Provid er: Kezia Du R.N.) documented in this encounter Additional Health Concerns Assessment Noted Time PHQ-9 Depression Total Score: 3 04/23/19 8:30 AM RECON[employer]ISSANCE CREWMEMBER documented as of this encounter Care Teams Nursing Technician Relationship Specialty Start Date End Date Elsewhere, Pcp PCP - General Internal Medicine 01/07/22 documented as of this encounter
--- OUTSIDE RECORDS SUMMARY | 2023-04-25 08:12 | XMS_ITS | Encounter Summary ---
Author Name Unknown Organization [facility] Address [address] [place] [id number] Care Team Providers Care Aegis Operations Specialist Name Role Phone Elsewhere, Pcp Primary Care Provider Unavailabl e Reason for Visit * Reason Comments Shortness of Breath Pt presents feeling short of breath, nauseated and ill. Has not vomited. Pt has occasional cough and feels congested. Encounter Details Date Type Department Care Team ([facility] st Contact Info) Description 03/10/2023 8:44 AM FINDING FASTENER - 03/10/2023 11:30 AM FINDING FASTENER Emergency [facility] [address] [place] [phone] Jesus Manuel Hensley M.D. [address] [place] [phone] Influenza Like Illness (Primary Dx); Dehydration; Hypokalemia [...] Answer Date Recorded PHQ-2 Score 0 12/10/2021 [facility] [place] of Occupat ional Health - Occupational Stress [...] Comments Blood Pressure 116/78 03/10/2023 11:00 AM FINDING FASTENER Pulse 70 03/10/2023 11:00 AM FINDING FASTENER Temperature 36.9 ??C (98.4 ??F) 03/10/2023 8:15 AM CS T Respiratory Rate 18 03/10/2023 11:00 AM FINDING FASTENER Oxygen Saturation 100% 03/10/2023 11:00 AM FINDING FASTENER Inhaled Oxygen Concentration - - Weight 95.9 kg (211 lb 6.7 oz) 03/10/2023 8:53 A M FINDING FASTENER Height 167.6 cm (5' 6) 03/10/2023 8:53 AM FINDING FASTENER Body Mass Index 34.12 03/10/2023 8:53 AM FINDING FASTENER documented in this encounter Discharge Instructions * Attachments The following attachments cannot be sent through Care Everywhere. * Viral Respiratory Infection [id number] (Russian) documented in this encounter Medications at Time [...] ST-T wave changes. When compared to previous, FL interval has increased Final Diagnoses: as of 03/10/23 1112 Influenza Like Illness Dehydration Hypokalemia Jesus Manuel Hensley M.D. 03/10/23 1112 ING FASTENER documented in this encounter Plan of Treatment Not on file documented as of this encounter Procedures Procedure Name Priority Date/Time Associated Diagnosis Comments ECG STAT 03/10/2023 10:21 AM FINDING FASTENER DX CHEST AP OR PA AND LATERAL 2 VIEWS RAD - Semiurgent (Fast; most ED patients; some inpatients) 03/10/2023 9:37 AM FINDING FASTENER SARS CORONAVIRUS 2, PCR RAPID, V STAT 03/10/2023 8:49 AM FINDING FASTENER INFLUENZA A, B, RSV, PCR, POCT STAT 03/10/2023 8:49 AM FINDING FASTENER CBC WITH DIFFERENTIAL, B STAT 03/10/2023 8:39 AM FINDING FASTENER BASIC METABOLIC PANEL, S/P STAT 03/10/2023 8:39 AM FINDING FASTENER documented in this encounter Results * ECG 12 Lead (03/10/2023 10:21 AM FINDING FASTENER) Ventricular Rate ECG/Min 73 BPM MUSE FL Interval 132 ms MUSE QRSD Interval 90 ms MUSE QT Interval 416 ms MUSE QTC Interval 458 ms MUSE P Sarah Ann 66 degrees MUSE R Sarah Ann 14 degrees MUSE T Wave Sarah Ann -1 degrees MUSE 03/10/2023 10:2 1 AM FINDING FASTENER 03/10/2023 10:42 AM FINDING FASTENER Impressions MUSE - 03/10/2023 10:40 AM FINDING FASTENER Normal sinus rhythm Nonspecific ST and T wave abnormality When compared with ECG of 07-OCT-2022 12:07, FL interval has increased Reviewed by WHIT Plummer Narrative Procedure Note Daquan Hess M.D., M.P.H. - 03/10/2023 IMPRESSION: Normal sinus rhythm Nonspecific ST and T wave abnormality When compared with ECG of 07-OCT-2022 12:07, FL interval has increased Reviewed by WHIT Plummer Jesus Manuel Hensley M.D. ECG ORDERABLES MUSE NA * DX Chest AP or PA and Lateral 2 Views (03/10/2023 9:37 AM FINDING FASTENER) Anatomical Region Laterality Modality Chest, Thoracic RST LOS, Tho racic ARZ LOS, Thoracic FLA LOS N/A Digital Radiography Impressions 03/10/2023 9:38 AM FINDING FASTENER Stable chest, no acute cardiopulmonary disease. Narrative 03/10/2023 9:38 AM FINDING FASTENER EXAM: DX CHEST AP OR PA AND [...] PCR, Point of Care (03/10/2023 8:49 AM FINDING FASTENER) Influenza A, POCT Negative Negative 03/10/2023 8:53 AM FINDING FASTENER NPR[facility] Influenza B, POCT Negative Negative 03/10/2023 8:53 AM FINDING FASTENER NPRG Resp Syncytial Virus, POCT Negative Negative 03/10/2023 8:53 AM FINDING FASTENER NPR[facility] Swab (Nasopharynx) 03/10/2023 8:49 AM FINDING FASTENER 03/10/2023 8:49 AM FINDING FASTENER Jesus Manuel Hensley M.D. LAB POCT ORDERABLES - DEVICE Performing Organization Address City/[facility]/ZIP Co de Phone Number [facility] [address] [place] [address], [facility] NPRG [address] [address] [address] [place] [address] * SARS Coronavirus 2, PCR Rapid Symptomatic (03/10/2023 8:49 AM FINDING FASTENER) SARS CoV-2, PCR, Rapid, V Undetected Undetected 03/10/2023 9:12 AM FINDING FASTENER NPRG Comment: ----ADDITIONAL INFORMATION---- This RT-PCR test was performed using the [employer] SARS-CoV-2 and Influenza A/B Reagent assay from [employer], which has received Emergency Use Authorization(EUA) by the U.S. Food and Drug Administration. Fact sheets for this Emergency Use Authorization (EUA) assay can be found at the following links: For Healthcare Providers: https://www.fda.gov/media/910515/download For Patients: https://www.fda.gov/media/813335/download SARS Coronavirus 2, Source, Rapid Swab, Nasopharynx 03/10/2023 8:49 AM FINDING FASTENER NPR[facility] Swab (Nasopharynx) 03/10/2023 8:49 AM FINDING FASTENER 03/10/2023 8:49 AM FINDING FASTENER Jesus Manuel Hensley M.D. LAB MICROBIOLOGY - G ENERAL ORDERABLES [facility] [address] [place] [address], [facility] NPRG [facility] [address] [place] [address] * (ABNORMAL) CBC with Differential, Blood (03/10/2023 8:39 AM FINDING FASTENER) Hemoglobin 14.3 11.6 - 15.0 g/dL 03/10/2023 8:51 AM FINDING FASTENER NPR[facility] Hematocrit 42.9 35.5 - 44.9 % 03/10/2023 8:51 AM FINDING FASTENER NPR[facility] Erythrocytes 5.08 3.92 - 5.13 x10(12)/L 03/10/2023 8:51 AM FINDING FASTENER NPR[facility] MCV 84.4 78.2 - 97.9 fL 03/10/2023 8:51 AM FINDING FASTENER NPR[facility] RBC Distrib Width 14.5 12.2 - 16.1 % 03/10/2023 8:51 AM FINDING FASTENER NPR[facility] Platelet Count 293 157 - 371 x10(9)/L 03/10/2023 8:51 AM FINDING FASTENER NPR[facility] Leukocytes 8.9 3.4 - 9.6 x10(9)/L 03/10/2023 8:51 AM FINDING FASTENER NPR[facility] Neutrophils 6.29 1.56 - 6.45 x10(9)/L 03/10/2023 8:51 AM FINDING FASTENER NPR[facility] Lymphocytes 1.51 0.95 - 3.07 x10(9)/L 03/10/2023 8:51 AM FINDING FASTENER NPR[facility] Monocytes 0.98(H) 0.26 - 0.81 x10(9)/L 03/10/2023 8:51 AM FINDING FASTENER NPR[facility] Eosinophils 0.07 0.03 - 0.48 x10(9)/L 03/10/2023 8:51 AM FINDING FASTENER NPR[facility] Basophils 0.03 0.01 - 0.08 x10(9)/L 03/10/2023 8:51 AM FINDING FASTENER NPR[facility] Blood (Blood, Venous) 03/10/2023 8:39 AM FINDING FASTENER 03/10/2023 8:45 AM FINDING FASTENER Jesus Manuel Hensley M.D. LAB BLOOD ADD-ON [facility] [address] [place] [address], [place] NPR[facility] [address] [place] [address] * (ABNORMAL) Basic Metabolic Panel (03/10/2023 8:39 AM FINDING FASTENER) Potassium, P 3.4(L) 3.6 - 5.2 mmol/L 03/10/2023 9:05 AM FINDING FASTENER NPR[facility] Sodium, P 137 135 - 145 mmol/L 03/10/2023 9:05 AM FINDING FASTENER NPR[facility] Chloride, P 102 98 - 107 mmol/L 03/10/2023 9:05 AM FINDING FASTENER NPR[facility] Bicarbonate, P 20(L) 22 - 29 mmol/L 03/10/2023 9:05 AM FINDING FASTENER NPR[facility] Anion Gap, P 15 7 - 15 03/10/2023 9:05 AM FINDING FASTENER NPR[facility] BUN (Blood Urea Nitrogen), P 9 6 - 21 mg/dL 03/10/2023 9:05 AM FINDING FASTENER NPR[facility] Creatinine 1.02 0.59 - 1.04 mg/dL 03/10/2023 9:05 AM FINDING FASTENER NPR[facility] Estimated GFR (eGFR) 71 >=60 mL/min/BSA 03/10/2023 9:05 AM FINDING FASTENER NPRG Comment: Estimated GFR calculated using the 2020 CKD_EPI creatinine equation. Calcium, Total, P 9.9 8.6 - 10.0 mg/dL 03/10/2023 9:05 AM FINDING FASTENER NPRG Glucose, P 85 70 - 140 mg/dL 03/10/2023 9:05 AM FINDING FASTENER NPR[facility] Blood (Blood, Venous) 03/10/2023 8:39 AM FINDING FASTENER 03/10/2023 8:45 AM FINDING FASTENER Jesus Manuel Hensley M.D. LAB BLOOD ADD-ON [facility] [address] [place] [address], [place] [facility] [facility] [address] [place] [address] documented in this encounter Visit Diagnoses Diagnosis [...] 1 dose New Bag 03/10/2023 8:46 AM FINDING FASTENER 1,000 mL 1000 mL/hr NaCl 0.9 % bolus 1,000 mL 1,000 mL, intravenous, at 1,000 mL/hr, Administer over 1 Hours, Once, On Wed03/10/23 at 0946, For 1 dose New Bag 03/10/2023 9:49 AM FINDING FASTENER 1,000 mL 1000 mL/hr ondansetron (PF) injection 4 mg (ZOFRAN) 4 mg, intravenous, Once, On Wed03/10/23 at 0854, For 1 dose Given 03/10/2023 9:03 AM FINDING FASTENER 4 mg potassium chloride ER tablet 20 mEq (KLORCON/K-TAB) 20 mEq, oral, Once, On Wed03/10/23 at 0907, For 1 dose, Swallow whole. Do NOT crush, chew, or split tablet. Given 03/10/2023 9:20 AM FINDING FASTENER 20 mEq sodium chloride 0.9 % injection 2-10 mL 2-10 mL, intravenous, As needed, line care, Starting on Wed03/10/23 at 0830 Given 03/10/2023 8:46 AM FINDING FASTENER 10 mL documented in this encounter Active and Recently Administered Medications Times are shown in FINDING FASTENER. Scheduled Medication Order 03/08/2023 03/09/2023 03/10/2023 NaCl [...] Pending 03/10/2023 03/10/2023 03/10/2023 9 :12 AM FINDING FASTENER Assessment Noted Time PHQ-9 Depression Total Score: 3 04/23/19 22 8:30 AM FINDING FASTENER documented as of this encounter Care Teams Aegis Operations Specialist Relationship Specialty Start Date End Date Elsewhere, Pcp PCP - General Internal Medicine 01/07/22 documented as of this encounter
--- OUTSIDE RECORDS SUMMARY | 2023-04-25 08:12 | XMS_ITS | Encounter Summary ---
Author Name Unknown Organization [facility] Address [address] [place] [address] Care Team Providers Care Furnace Fitter Name Role Phone Elsewhere, Pcp Primary Care Provider Unavailabl e Reason for Visit * Reason Onset Date Comments Med Question 03/08/2023 Encounter Details Date Type Department Care Team (Late st Contact Info) Description 03/08/2023 Nurse Triage [facility] Department of Family Medicine in [place], [place] [address] [place] [phone] Suha Lea, R.N. Med Question Social History [...] any clubs o r organizations such as taoist groups, unions, fraternal or athletic groups, or [...] Answer Date Recorded PHQ-2 Score 0 12/10/2021 [facility] of Occupat ional Health - Occupational [...] Suha Lea, RSonaN. - 03/08/2023 9:44 PM BOTTOM TURNER Patient calls to verify home medications she would like to take for nausea does not interact with medications given via IV in ED today. Call transferred to [facility] to connect to [facility]. OM TURNER documented in this encounter Plan of Treatment Not on file documented as of this encounter Visit Diagnoses Not on filedocumented in this encounter Additional Health Concerns Assessment Noted Time PHQ-9 Depression Total Score: 3 04/23/19 22 8:30 AM BOTTOM TURNER documented as of this encounter Care Teams Furnace Fitter Relationship Specialty Start Date End Date Elsewhere, Pcp PCP - General Internal Medicine 01/07/22 documented as of this encounter
--- OUTSIDE RECORDS SUMMARY | 2023-04-25 08:12 | XMS_ITS | Encounter Summary ---
Author Name Unknown Organization [facility] Address [address] [place] [address] Care Team Providers Care Family Support Worker Name Role Phone Elsewhere, Pcp Primary Care Provider Unavailabl e Reason for Visit * Reason Comments Dizziness Encounter Details Date Type Department Care Team ([facility] st Contact Info) Description 03/11/2023 8:53 PM TRANSCRIPTION COORDINATOR - 03/12/2023 2:30 AM [facility] Emergency [place] [facility] [address] [place] [phone] Boyd Lynn M.D. [address] [place] [phone] Lightheadedness (Primary Dx) Discharge Disposition: Home or [...] How often do you attend chur or confucianist services? 1 to 4 times per year 04/03/2022 Do you belong to any clubs o r organizations such as congregational groups, unions, fraternal or athletic groups, or [...] Answer Date Recorded PHQ-2 Score 0 12/10/2021 [facility] [place] of Occupat ional Health - Occupational Stress [...] Comments Blood Pressure 122/69 03/12/2023 1:15 AM TRANSCRIPTION COORDINATOR Pulse 66 03/12/2023 1:30 AM TRANSCRIPTION COORDINATOR Temperature 37 ??C (98.6 ??F) 03/11/2023 9:12 PM TRANSCRIPTION COORDINATOR Respiratory Rate 13 03/12/2023 12:30 AM TRANSCRIPTION COORDINATOR Oxygen Saturation 99% 03/12/2023 1:30 AM TRANSCRIPTION COORDINATOR Inhaled Oxygen Concentration - - Weight - - Height - - Body Mass Index - - documented in this encounter Discharge Instructions * Discharge Instructions* Boyd Lynn M.D. - 03/12/2023 2:30 AM TRANSCRIPTION COORDINATOR Unclear cause of your lightheadedness tonight, though [...] care doctor early to mid next week. SCRIPTION COORDINATOR documented in this encounter Medications at Time [...] Lynn M.D. - 03/11/2023 11:58 PM CST [facility] 03/12/2023 8:25 AM TRANSCRIPTION COORDINATOR *Encounter labs and radiology results at the [...] % CANCELED Narrative: Specimen Information: Specimen ID: [id number] Specimen Type: Blood Specimen Collection Start Date: 03/12/2023 12:41 AM Specimen Received Date: 03/12/2023 12:43 AM Specimen ID: [id number] Specimen Type: Blood No orders to display Boyd Lynn M.D. 03/12/23 0830 SCRIPTION COORDINATOR documented in this encounter Plan of Treatment Not on file documented as of this encounter Procedures Procedure Name Priority Date/Time Associated Diagnosis Comments TROPONIN T, 2H/6H, 5TH GEN, P Timed 03/12/2023 12:41 AM TRANSCRIPTION COORDINATOR TROPONIN T, BASELINE, 5TH GEN, P STAT 03/11/2023 10:57 PM TRANSCRIPTION COORDINATOR CBC WITH DIFFERENTIAL, B STAT 03/11/2023 10:57 PM TRANSCRIPTION COORDINATOR BASIC METABOLIC PANEL, S/P STAT 03/11/2023 10:57 PM TRANSCRIPTION COORDINATOR documented in this encounter Results * Troponin T, 2h/6h, 5th Gen (03/12/2023 12:41 AM TRANSCRIPTION COORDINATOR) Troponin T, 2 hr, 5th gen <6 <=10 ng/L 03/12/2023 1:03 AM TRANSCRIPTION COORDINATOR NPRG 2H Delta 0 ng/L 03/12/2023 1:03 AM TRANSCRIPTION COORDINATOR NPRG 2H Delta Interp Not Changing 03/12/2023 1:03 AM TRANSCRIPTION COORDINATOR NPRG Troponin T, 6 hr, 5th gen CANCELED ng/L 03/12/2023 1:03 AM TRANSCRIPTION COORDINATOR NPRG Comment:Result canceled by t he ancillary. 6H Delta CANCELED ng/L 03/12/2023 1:03 AM TRANSCRIPTION COORDINATOR NPRG Comment:Result canceled by t he ancillary. 6H Delta % CANCELED % 03/12/2023 1:03 AM TRANSCRIPTION COORDINATOR NPRG Comment:Result canceled by t he ancillary. Blood (Blood, Venous) 03/12/2023 12:41 AM TRANSCRIPTION COORDINATOR 03/12/2023 12:43 AM TRANSCRIPTION COORDINATOR Narrative [facility] - 03/12/2023 1:03 AM TRANSCRIPTION COORDINATOR Specimen Information: Specimen ID: [id number] Specimen Type: Blood Specimen Collection Start Date: 03/12/2023 12:41 AM Specimen Received Date: 03/12/2023 12:43 AM Specimen ID: [id number] Specimen Type: Blood Boyd Lynn M.D. LAB BLOOD TROPONIN [facility] [address] [place] [address], [facility] NPRG [place] [address] [place] [address] * Troponin T, Baseline, 5th gen (03/11/2023 10:57 PM TRANSCRIPTION COORDINATOR) Troponin T, Baseline, 5th gen <6 <=10 ng/L 03/11/2023 11:50 PM TRANSCRIPTION COORDINATOR NPRG Blood (Blood, Venous) 03/11/2023 10:57 PM TRANSCRIPTION COORDINATOR 03/11/2023 11:01 PM TRANSCRIPTION COORDINATOR Boyd Lynn M.D. LAB BLOOD TROPONIN [facility] [address] [place] [address], [place] NPR[place] [address] [place] [address] * Basic Metabolic Panel (03/11/2023 10:57 PM TRANSCRIPTION COORDINATOR) Potassium, P 4.0 3.6 - 5.2 mmol/L 03/11/2023 11:25 PM TRANSCRIPTION COORDINATOR NPRG Sodium, P 139 135 - 145 mmol/L 03/11/2023 11:25 PM TRANSCRIPTION COORDINATOR NPRG Chloride, P 104 98 - 107 mmol/L 03/11/2023 11:25 PM TRANSCRIPTION COORDINATOR NPRG Bicarbonate, P 23 22 - 29 mmol/L 03/11/2023 11:25 PM TRANSCRIPTION COORDINATOR NPRG Anion Gap, P 12 7 - 15 03/11/2023 11:25 PM TRANSCRIPTION COORDINATOR NPR[facility] BUN (Blood Urea Nitrogen), P 9 6 - 21 mg/dL 03/11/2023 11:25 PM TRANSCRIPTION COORDINATOR NPRG Creatinine 0.83 0.59 - 1.04 mg/dL 03/11/2023 11:25 PM TRANSCRIPTION COORDINATOR NPR[facility] Estimated GFR (eGFR) >90 >=60 mL/min/BSA 03/11/2023 11:25 PM TRANSCRIPTION COORDINATOR NPRG Comment: Estimated GFR calculated using the 2020 CKD_EPI creatinine equation. Calcium, Total, P 9.6 8.6 - 10.0 mg/dL 03/11/2023 11:25 PM TRANSCRIPTION COORDINATOR NPRG Glucose, P 98 70 - 140 mg/dL 03/11/2023 11:25 PM TRANSCRIPTION COORDINATOR NPR[facility] Blood (Blood, Venous) 03/11/2023 10:57 PM TRANSCRIPTION COORDINATOR 03/11/2023 11:01 PM TRANSCRIPTION COORDINATOR Boyd Lynn M.D. LAB BLOOD ADD-ON [facility] [address] [place] [address], [facility] NPRG [facility] [address] [place] [address] * CBC with Differential, Blood (03/11/2023 10:57 PM TRANSCRIPTION COORDINATOR) Hemoglobin 12.9 11.6 - 15.0 g/dL 03/11/2023 11:19 PM TRANSCRIPTION COORDINATOR NPRG Hematocrit 39.5 35.5 - 44.9 % 03/11/2023 11:19 PM TRANSCRIPTION COORDINATOR NPRG Erythrocytes 4.57 3.92 - 5.13 x10(12)/L 03/11/2023 11:19 PM TRANSCRIPTION COORDINATOR NPRG MCV 86.4 78.2 - 97.9 fL 03/11/2023 11:19 PM TRANSCRIPTION COORDINATOR NPRG RBC Distrib Width 14.3 12.2 - 16.1 % 03/11/2023 11:19 PM TRANSCRIPTION COORDINATOR NPRG Platelet Count 261 157 - 371 x10(9)/L 03/11/2023 11:19 PM TRANSCRIPTION COORDINATOR NPRG Leukocytes 7.4 3.4 - 9.6 x10(9)/L 03/11/2023 11:19 PM TRANSCRIPTION COORDINATOR NPRG Neutrophils 4.92 1.56 - 6.45 x10(9)/L 03/11/2023 11:19 PM TRANSCRIPTION COORDINATOR NPRG Lymphocytes 1.64 0.95 - 3.07 x10(9)/L 03/11/2023 11:19 PM TRANSCRIPTION COORDINATOR NPRG Monocytes 0.73 0.26 - 0.81 x10(9)/L 03/11/2023 11:19 PM TRANSCRIPTION COORDINATOR NPRG Eosinophils 0.13 0.03 - 0.48 x10(9)/L 03/11/2023 11:19 PM TRANSCRIPTION COORDINATOR NPRG Basophils 0.02 0.01 - 0.08 x10(9)/L 03/11/2023 11:19 PM TRANSCRIPTION COORDINATOR NPRG Blood (Blood, Venous) 03/11/2023 10:57 PM TRANSCRIPTION COORDINATOR 03/11/2023 11:01 PM TRANSCRIPTION COORDINATOR Boyd Lynn M.D. LAB BLOOD ADD-ON [facility] [address] [place] [address], [facility] NPRG [facility] [address] [place] [address] documented in this encounter Visit Diagnoses Diagnosis [...] 1 dose New Bag 03/12/2023 12:15 AM TRANSCRIPTION COORDINATOR 1,000 mL 1000 mL/hr sodium chloride 0.9 % injection 2-10 mL 2-10 mL, intravenous, As needed, line care, Starting on Belinda 03/11/23 at 2239 documented in this encounter Active and Recently Administered Medications Times are shown in TRANSCRIPTION COORDINATOR. Scheduled Medication Order 03/10/2023 03/11/2023 03/12/2023 NaCl 0.9 % bolus 1,000 mL (COMPLETED) 1,000 mL, intravenous, at 1,000 mL/hr, Administer over 1 Hours, Once, On Belinda 03/11/23 at 2240, For 1 dose 0015 (New Bag - Prov ider: eWndy Hyde R.N. - Comment: Fluids started later [...] Total Score: 3 04/23/19 22 8:30 AM TRANSCRIPTION COORDINATOR documented as of this encounter Care Teams Family Support Worker Relationship Specialty Start Date End Date Elsewhere, Pcp PCP - General Internal Medicine 01/07/22 documented as of this encounter
--- OUTSIDE RECORDS SUMMARY | 2023-04-25 08:12 | XMS_ITS | Encounter Summary ---
Author Name Unknown Organization [facility] Address [address] [place] [address] Care Team Providers Care Extension Worker Name Role Phone Elsewhere, Pcp Primary Care Provider Unavailabl e Reason for Referral * MRI/CAT/PET Scan (Routine) - Closed Specialty Diagnoses / Procedures Referred By Tania t Referred To Contact Radiology Diagnoses Abdominal Pain Procedures CT Abdomen Pelvis with IV Contrast Mario Valle P.ASona-Wellington [address] [place] [address] [facility] Region Referral ID Status Reason Start Date Expiration Date Visits Re quested Visits Authorized [id number] Closed 03/27/2023 03/26/2024 1 1 EMATICAL SCIENCES PROFESSOR Reason for Visit * Reason Comments Abdominal Pain Had sudden pain and nausea last night. Also had a barium study on morning. Has had bowel movements since Encounter Details Date Type Department Care Team (Late st Contact Info) Description 03/27/2023 9:00 AM MATHEMATICAL SCIENCES PROFESSOR Office Visit Urgent Care, [facility], in [place], [place] [address] [place] [phone] Mario Valle P.A.-C. [address] [place] [phone] Abdominal Pain (Primary Dx) Discharge Disposition: Home [...] often do you attend chur ch or presybeterian services? 1 to 4 times per year [...] 12/10/2021 [facility] Occupat ional [facility] - Occupational Stress Questionnaire Answer Date Recorded [...] Comments Blood Pressure 117/81 03/27/2023 8:42 AM MATHEMATICAL SCIENCES PROFESSOR Pulse 94 03/27/2023 8:42 AM MATHEMATICAL SCIENCES PROFESSOR Temperature 36.2 ??C (97.2 ??F) 03/27/2023 8:42 AM CS T Respiratory Rate - - Oxygen Saturation 98% 03/27/2023 8:42 AM MATHEMATICAL SCIENCES PROFESSOR Inhaled Oxygen Concentration - - Weight 95.8 kg (211 lb 4.8 oz) 03/27/2023 8:42 A M MATHEMATICAL SCIENCES PROFESSOR Height 169.4 cm (5' 6.69) 03/27/2023 8:42 AM CS T Body Mass Index 33.4 03/27/2023 8:42 AM MATHEMATICAL SCIENCES PROFESSOR documented in this encounter Progress Notes * [...] QI(U) Negative Bilirubin Negative pH 7.0 Specific [place] 1.015 Urobilinogen 0.2 Test, POCT, Urine (Lab) [...] Pathogen Panel, PCR, Feces Celiac Disease Comprehensive [place] ondansetron ODT (ZOFRAN-ODT) 4 mg disintegrating tablet [...] medications discussed. Questions answered. Mario Valle P.A.-C. EMATICAL SCIENCES PROFESSOR documented in this encounter Plan of Treatment [...] DISEASE COMPREHENSIVE CASCADE STAT 03/27/2023 11:44 AM MATHEMATICAL SCIENCES PROFESSOR Abdominal Pain TISSUE TRANSGLUTAMINASE (TTG) AB, IGA, S STAT 03/27/2023 11:44 AM MATHEMATICAL SCIENCES PROFESSOR URINALYSIS WITH MICROSCOPIC IF INDICATED, U STAT 03/27/2023 10:03 AM MATHEMATICAL SCIENCES PROFESSOR Abdominal Pain HC URINALYSIS AUTO W MICRO STAT 03/27/2023 10:03 AM MATHEMATICAL SCIENCES PROFESSOR BACTERIAL CULTURE, AEROBIC + SUSC, URINE STAT 03/27/2023 10:03 AM MATHEMATICAL SCIENCES PROFESSOR Abdominal Pain TEST, POCT, U (LAB) STAT 03/27/2023 10:03 AM MATHEMATICAL SCIENCES PROFESSOR Abdominal Pain CBC WITH DIFFERENTIAL, B STAT 024 9:32 AM MATHEMATICAL SCIENCES PROFESSOR Abdominal Pain C-REACTIVE PROTEIN (CRP), S/P STAT 03/27/2023 9:32 AM MATHEMATICAL SCIENCES PROFESSOR Abdominal Pain LIPASE, S/P STAT 03/27/2023 9:32 AM MATHEMATICAL SCIENCES PROFESSOR Abdominal Pain COMPREHENSIVE METABOLIC PANEL, S/P STAT 03/27/2023 9:32 AM MATHEMATICAL SCIENCES PROFESSOR Abdominal Pain documented in this encounter Results * tTG (Tissue Transglutaminase), Antibody, IgA (03/27/2023 11:44 AM MATHEMATICAL SCIENCES PROFESSOR) Tissue Transglutaminase Ab, IgA, S <1.2 <4.0 (Negative ) U/mL 03/30/2023 12:34 PM MATHEMATICAL SCIENCES PROFESSOR [facility] Blood 03/27/2023 11:4 4 AM MATHEMATICAL SCIENCES PROFESSOR 03/29/2023 3:34 PM MATHEMATICAL SCIENCES PROFESSOR Mario Valle P.A.-C. LAB BLOOD A DD-ON [facility] [address] [place] [address] [facility] [address] [address] * Celiac Disease Comprehensive [place] (03/27/2023 11:44 AM MATHEMATICAL SCIENCES PROFESSOR) HLA-DQA1 Locus Molecular 01:03, 05 Not Applicable 03/31/2023 2:18 PM MATHEMATICAL SCIENCES PROFESSOR DBB8 HLA-DQB1 Locus Molecular 03:03, 06:03 Not Applicable 03/31/2023 2:18 PM MATHEMATICAL SCIENCES PROFESSOR DBB[facility] Comment: DQ Serologic Equivalent: 9, 6 Celiac Gene Pairs Present? No 03/31/2023 2:18 PM MATHEMATICAL SCIENCES PROFESSOR DBB8 Comment: Method: Molecular typing of [...] if ethnic specific resolution is required. CLIA: [id number] ??CLIA Dog Breeder: KLAUS MANCUSO MD,PhD Immunoglobulin A (IgA), S 122 61 - 356 mg/dL 03/29/2023 2:59 PM MATHEMATICAL SCIENCES PROFESSOR [facility] Celiac Disease Interpretation See Comment: Permissive genes absent and negative serology. Celiac disease extremely unlikely. 03/31/2023 10:53 PM MATHEMATICAL SCIENCES PROFESSOR [facility] Blood (Blood, Venous) 03/27/2023 11:44 AM MATHEMATICAL SCIENCES PROFESSOR 03/29/2023 8:00 AM MATHEMATICAL SCIENCES PROFESSOR Narrative [facility] - 03/31/2023 10:53 PM MATHEMATICAL SCIENCES PROFESSOR Specimen Information: Specimen ID: [id number] Specimen Type: Blood Specimen Collection Start Date: 03/27/2023 11:44 AM Specimen Received Date: 03/29/2023 ??8:00 AM Specimen ID: [id number] Specimen Type: Blood Specimen Collection Start Date: 03/27/2023 11:44 AM Specimen Received Date: 03/29/2023 ??6:42 AM Specimen ID: [id number] Specimen Type: Blood Specimen Collection Start Date: 03/27/2023 11:44 AM Specimen Received Date: 03/29/2023 ??7:40 AM Mario Valle P.A.-C. LAB BLOOD N ON ADD-ON [facility] [address] [place] [address] DBB8 [facility] [address] [place] [address] [facility] [address] [place] [address] [facility] [address] [place] [address] [place] [address] * CT Abdomen Pelvis with IV Contrast (03/27/2023 10:35 AM MATHEMATICAL SCIENCES PROFESSOR) Anatomical Region Laterality Modality Abdomen, Pelvis, Abdominal R ST LOS, Abdominal ARZ LOS, Abdominal FLA LOS N/A Computed Tomography 03/27/2023 10:3 9 AM MATHEMATICAL SCIENCES PROFESSOR Impressions 03/27/2023 11:01 AM MATHEMATICAL SCIENCES PROFESSOR 1. Normal-appearing appendix. 2. No acute intra-abdominal/pelvic pathology, no CT findings to explain the patient's symptoms of right lower quadrant abdominal pain. Narrative 03/27/2023 11:01 AM MATHEMATICAL SCIENCES PROFESSOR EXAM: CT ABDOMEN PELVIS WITH IV [...] appendix in the right lower quadrant on -117 of series 3. No small bowel or [...] abdominal pain. Mario Valle P.A.-C. [facility] PROC EDURES * (ABNORMAL) Bacterial Culture, Aerobic + Susceptibility, Urine (03/27/2023 10:03 AM MATHEMATICAL SCIENCES PROFESSOR) Pathologist [facility] Urine Culture with mixed microbiota(A) 03/30/2023 6:38 AM MATHEMATICAL SCIENCES PROFESSOR [facility]TO Urine Culture PSEUDOMONAS AERUGINOSA >100,000 cfu/mL (A) 03/30/2023 6:38 AM MATHEMATICAL SCIENCES PROFESSOR [facility] Urine Culture KLEBSIELLA PNEUMONIAE COMPLEX 10,000-100,000 cfu/mL (A) 03/30/2023 6:38 AM MATHEMATICAL SCIENCES PROFESSOR [facility] Urine (Urine, Midstream) 03/27/2023 10:03 AM MATHEMATICAL SCIENCES PROFESSOR 03/27/2023 4:21 PM MATHEMATICAL SCIENCES PROFESSOR Comment:Specimen Source Site : Urine Narrative [...] P.A.-C. LAB MICROBI OLOGY - GENERAL ORDERABLES [facility] [address] [place] [address], [facility] in [place] [address] [place] [address] * (ABNORMAL) Microscopic Manual (03/27/2023 10:03 AM MATHEMATICAL SCIENCES PROFESSOR) White Blood Cells Occ-3 /hpf 03/27/2023 10:32 AM MATHEMATICAL SCIENCES PROFESSOR NPRG Comment: ----REFERENCE VALUE---- Males: 0-3 Females: 0-10 Unknown: 0-10 Red Blood Cells None Seen 0 - 2 /hpf 03/27/2023 10:32 AM MATHEMATICAL SCIENCES PROFESSOR NPRG Squamous Cells Occ-3 /hpf 03/27/2023 10:32 AM MATHEMATICAL SCIENCES PROFESSOR NPRG Bacteria Present(A) None Seen 03/27/2023 10:32 AM MATHEMATICAL SCIENCES PROFESSOR NPRG Urine 03/27/2023 10:0 3 AM MATHEMATICAL SCIENCES PROFESSOR 03/27/2023 10:17 AM MATHEMATICAL SCIENCES PROFESSOR Mario Valle P.A.-C. LAB URINE O RDERABLES Performing Organization Address [facility] Co de Phone Number [facility] [address] [place] [address], [facility] NPRG [address] [address] * Test, POCT, Urine (Lab) (03/27/2023 10:03 AM MATHEMATICAL SCIENCES PROFESSOR) Test, POCT, U Negative 03/27/2023 10:25 AM MATHEMATICAL SCIENCES PROFESSOR NPRG Urine (Urine, Midstream) 03/27/2023 10:03 AM MATHEMATICAL SCIENCES PROFESSOR 03/27/2023 10:17 AM MATHEMATICAL SCIENCES PROFESSOR Mario Valle P.A.-C. LAB POCT OR DERABLES - DEVICE Performing Organization Address [facility] Co de Phone Number [facility] [address] [place] [address], [facility] NPRG [address] [address] * (ABNORMAL) Urinalysis with Microscopic if Indicated (03/27/2023 10:03 AM MATHEMATICAL SCIENCES PROFESSOR) Source Urine, Urine, Midstream 03/27/2023 10:17 AM MATHEMATICAL SCIENCES PROFESSOR NPRG Clarity Clear Clear 03/27/2023 10:20 AM MATHEMATICAL SCIENCES PROFESSOR NPRG Color Yellow 03/27/2023 10:20 AM MATHEMATICAL SCIENCES PROFESSOR NPRG Comment: ----REFERENCE VALUE---- Colorless Yellow Chasity Blood Negative Negative 03/27/2023 10:20 AM MATHEMATICAL SCIENCES PROFESSOR NPRG Nitrite Negative Negative 03/27/2023 10:20 AM MATHEMATICAL SCIENCES PROFESSOR NPRG Leukocyte Esterase Small(A) Negative 03/27/2023 10:20 AM MATHEMATICAL SCIENCES PROFESSOR NPRG Protein Negative mg/dL 03/27/2023 10:20 AM MATHEMATICAL SCIENCES PROFESSOR NPRG Comment: ----REFERENCE VALUE---- Negative Trace Glucose Negative Negative mg/dL 03/27/2023 10:20 AM MATHEMATICAL SCIENCES PROFESSOR NPRG Ketones, QI(U) Negative Negative mg/dL 03/27/2023 10:20 AM MATHEMATICAL SCIENCES PROFESSOR NPRG Bilirubin Negative Negative 03/27/2023 10:20 AM MATHEMATICAL SCIENCES PROFESSOR NPRG pH 7.0 5.0 - 8.0 03/27/2023 10:20 AM MATHEMATICAL SCIENCES PROFESSOR NPRG Specific [place] 1.015 1.001 - 1.035 03/27/2023 10:20 AM MATHEMATICAL SCIENCES PROFESSOR NPRG Urobilinogen 0.2 0.2 - 1.0 mg/dL 03/27/2023 10:20 AM MATHEMATICAL SCIENCES PROFESSOR NPRG Urine (Urine, Midstream) 03/27/2023 10:03 AM MATHEMATICAL SCIENCES PROFESSOR 03/27/2023 10:17 AM MATHEMATICAL SCIENCES PROFESSOR Mario Valle P.A.-C. LAB URINE O RDERABLES Performing Organization Address [facility]/ZIP Co de Phone Number [facility] [address] [place] [address], [facility] [address] [address] * Lipase (03/27/2023 9:32 AM MATHEMATICAL SCIENCES PROFESSOR) Lipase, P 36 13 - 60 U/L 03/27/2023 10:02 AM MATHEMATICAL SCIENCES PROFESSOR NPRG Blood (Blood, Venous) 03/27/2023 9:32 AM MATHEMATICAL SCIENCES PROFESSOR 03/27/2023 9:37 AM MATHEMATICAL SCIENCES PROFESSOR Mario Valle P.A.-C. LAB BLOOD A DD-ON Performing Organization Address [facility]/ZIP Co de Phone Number [facility] [address] [place] [address], [address] [address] * (ABNORMAL) CRP (C-Reactive Protein) (03/27/2023 9:32 AM MATHEMATICAL SCIENCES PROFESSOR) C-Reactive Protein (CRP), P 15.2(H) <5.0 mg/L 03/27/2023 10:02 AM MATHEMATICAL SCIENCES PROFESSOR NPRG Blood (Blood, Venous) 03/27/2023 9:32 AM MATHEMATICAL SCIENCES PROFESSOR 03/27/2023 9:37 AM MATHEMATICAL SCIENCES PROFESSOR Mario Valle P.A.-C. LAB BLOOD A DD-ON [facility] [address] [place] [address], [facility] NPRG [facility] [address] [place] [address] * Comprehensive Metabolic Panel (03/27/2023 9:32 AM MATHEMATICAL SCIENCES PROFESSOR) Potassium, P 4.0 3.6 - 5.2 mmol/L 03/27/2023 10:02 AM MATHEMATICAL SCIENCES PROFESSOR NPRG Sodium, P 139 135 - 145 mmol/L 03/27/2023 10:02 AM MATHEMATICAL SCIENCES PROFESSOR NPRG Chloride, P 105 98 - 107 mmol/L 03/27/2023 10:02 AM MATHEMATICAL SCIENCES PROFESSOR NPRG Bicarbonate, P 22 22 - 29 mmol/L 03/27/2023 10:02 AM MATHEMATICAL SCIENCES PROFESSOR NPRG Anion Gap, P 12 7 - 15 03/27/2023 10:02 AM MATHEMATICAL SCIENCES PROFESSOR NPRG BUN (Blood Urea Nitrogen), P 8 6 - 21 mg/dL 03/27/2023 10:02 AM MATHEMATICAL SCIENCES PROFESSOR NPRG Creatinine 0.87 0.59 - 1.04 mg/dL 03/27/2023 10:02 AM MATHEMATICAL SCIENCES PROFESSOR NPRG Estimated GFR (eGFR) 86 >=60 mL/min/BS A 03/27/2023 10:02 AM MATHEMATICAL SCIENCES PROFESSOR NPRG Comment: Estimated GFR calculated using the 2020 CKD_EPI creatinine equation. Calcium, Total, P 9.1 8.6 - 10.0 mg/dL 03/27/2023 10:02 AM MATHEMATICAL SCIENCES PROFESSOR NPRG Glucose, P 93 70 - 140 mg/dL 03/27/2023 10:02 AM MATHEMATICAL SCIENCES PROFESSOR NPRG Protein, Total, P 6.5 6.3 - 7.9 g/dL 03/27/2023 10:02 AM MATHEMATICAL SCIENCES PROFESSOR NPRG Albumin, P 4.0 3.5 - 5.0 g/dL 03/27/2023 10:02 AM MATHEMATICAL SCIENCES PROFESSOR NPRG Aspartate Aminotransferase (AST), P 14 8 - 43 U/L 03/27/2023 10:02 AM MATHEMATICAL SCIENCES PROFESSOR NPRG Alkaline Phosphatase, P 69 35 - 104 U/L 03/27/2023 10:02 AM MATHEMATICAL SCIENCES PROFESSOR NPRG Alanine Aminotransferase (ALT), P 30 7 - 45 U/L 03/27/2023 10:02 AM MATHEMATICAL SCIENCES PROFESSOR NPRG Bilirubin, Total, P 0.5 0.0 - 1.2 mg/dL 03/27/2023 10:02 AM MATHEMATICAL SCIENCES PROFESSOR NPRG Blood (Blood, Venous) 03/27/2023 9:32 AM MATHEMATICAL SCIENCES PROFESSOR 03/27/2023 9:37 AM MATHEMATICAL SCIENCES PROFESSOR Mario Valle P.A.-C. LAB BLOOD A DD-ON [facility] [address] [place] [address], [facility] NPRG [facility] [address] [place] [address] * CBC with Differential, Blood (03/27/2023 9:32 AM MATHEMATICAL SCIENCES PROFESSOR) Hemoglobin 13.9 11.6 - 15.0 g/dL 03/27/2023 9:41 AM MATHEMATICAL SCIENCES PROFESSOR NPRG Hematocrit 42.7 35.5 - 44.9 % 03/27/2023 9:41 AM MATHEMATICAL SCIENCES PROFESSOR NPRG Erythrocytes 4.95 3.92 - 5.13 x10(12)/L 03/27/2023 9:41 AM MATHEMATICAL SCIENCES PROFESSOR NPRG MCV 86.3 78.2 - 97.9 fL 03/27/2023 9:41 AM MATHEMATICAL SCIENCES PROFESSOR NPRG RBC Distrib Width 14.7 12.2 - 16.1 % 03/27/2023 9:41 AM MATHEMATICAL SCIENCES PROFESSOR NPRG Platelet Count 278 157 - 371 x10(9)/L 03/27/2023 9:41 AM MATHEMATICAL SCIENCES PROFESSOR NPRG Leukocytes 7.4 3.4 - 9.6 x10(9)/L 03/27/2023 9:41 AM MATHEMATICAL SCIENCES PROFESSOR NPRG Neutrophils 5.52 1.56 - 6.45 x10(9)/L 03/27/2023 9:41 AM MATHEMATICAL SCIENCES PROFESSOR NPRG Lymphocytes 1.09 0.95 - 3.07 x10(9)/L 03/27/2023 9:41 AM MATHEMATICAL SCIENCES PROFESSOR NPRG Monocytes 0.65 0.26 - 0.81 x10(9)/L 03/27/2023 9:41 AM MATHEMATICAL SCIENCES PROFESSOR NPRG Eosinophils 0.16 0.03 - 0.48 x10(9)/L 03/27/2023 9:41 AM MATHEMATICAL SCIENCES PROFESSOR NPRG Basophils 0.01 0.01 - 0.08 x10(9)/L 03/27/2023 9:41 AM MATHEMATICAL SCIENCES PROFESSOR NPRG Blood (Blood, Venous) 03/27/2023 9:32 AM MATHEMATICAL SCIENCES PROFESSOR 03/27/2023 9:37 AM MATHEMATICAL SCIENCES PROFESSOR Mario Valle P.A.-C. LAB BLOOD A DD-ON [facility] [address] [place] [address], [facility] NPRG [facility] [address] [place] [address] documented in this encounter Visit Diagnoses Diagnosis Abdominal Pain- Primary Abdominal Pain documented in this encounter Additional Health Concerns Assessment Noted Time PHQ-9 Depression Total Score: 3 04/23/19 22 8:30 AM MATHEMATICAL SCIENCES PROFESSOR documented as of this encounter Care Teams Extension Worker Relationship Specialty Start Date End Date Elsewhere, Pcp PCP - General Internal Medicine 01/07/22 documented as of this encounter
--- OUTSIDE RECORDS SUMMARY | 2023-04-25 08:13 | XMS_ITS | Encounter Summary ---
Author Name Unknown Organization [facility] Address [address] [place] [address] Care Team Providers Care Ground Water Technician Name Role Phone Elsewhere, Pcp Primary Care Provider Unavailabl e Reason for Visit * Reason Comments Allergic Reaction After increasing the dose Zoloft from 50 mg to 75 mg dose patient felt palpitations and not feeling good.No rashes. Encounter Details Date Type Department Care Team (Late st Contact Info) Description 06/09/2022 3:30 PM CDT Office Visit Urgent Care, [facility], in [place], [place] [address] [place] [phone] Lela Aguiar, PSonaASona-C. [address] [place] [phone] Anxiety (Primary Dx); Palpitations Discharge Disposition: Home [...] Answer Date Recorded PHQ-2 Score 0 12/10/2021 [facility] [place] of Occupat ional Health - Occupational Stress [...] Morbid Obesity Body Mass Index 40.0-44.9 Adult ([facility]) 06/05/2021 Bleeding Postcoital 01/30/2022 Resolved Ambulatory Problems [...] test that needs to be sent to [facility] and has a 4 day turnaround time. [...] Total Score: 3 04/23/19 22 8:30 AM RESEARCH ASSOCIATE POLICY documented as of this encounter Care Teams Ground Water Technician Relationship Specialty Start Date End Date Elsewhere, Pcp PCP - General Internal Medicine 01/07/22 documented as of this encounter
--- OUTSIDE RECORDS SUMMARY | 2023-04-25 08:13 | XMS_ITS | Encounter Summary ---
Author Name Unknown Organization [facility] Address [address] [place] [address] Care Team Providers Care Silk Screen Printing Racker Name Role Phone Elsewhere, Pcp Primary Care Provider Unavailabl e Reason for Visit * Reason Comments Back Pain Awoke this am feelin g good then developed headache, nausea, and mid back pain, denies urinary symptoms, tylenol at 0730 Encounter Details Date Type Department Care Team (Late st Contact Info) Description 05/30/2022 8:55 AM CDT - 05/30/2022 12:50 PM CDT Emergency [facility] Emergency Department [address] [place] [phone] Wade Lawrence, PAfsaneh.-C., M.S. [address] [place] [phone] Sinusitis (Primary Dx); Pain Chest Atypical Discharge [...] How often do you attend chur or samaritan services? 1 to 4 times per year [...] Date Recorded PHQ-2 Score 0 12/10/2021 [facility] [place] of Occupat ional Health - Occupational Stress [...] sent through Care Everywhere. * Sinusitis Adult (Brazilian) documented in this encounter Medications at Time [...] Ketone Negative Bilirubin Negative pH 6.0 Specific [place] 1.018 Urobilinogen 0.2 White Blood Cells Occ-3 [...] 05/30/2022 11:41 AM CDT Narrative [facility] - 05/30/2022 12:11 PM CDT Specimen Information: Specimen ID: [id number] Specimen Type: Blood Specimen Collection Start Date: 05/30/2022 11:34 AM Specimen Received Date: 05/30/2022 11:41 AM Specimen ID: [id number] Specimen Type: Blood Wade Lawrence P.A.-C., M.S. LAB BLOOD TR OPONIN [facility] [address] [place] [address], [facility] [place] [address] * DX Chest Portable 1 View (05/30/2022 [...] No acute findings. Wade Lawrence P.A.-C. M.SSona [facility] DI[facility]NOST IC IMAGING PROCEDURES * CT Abdomen [...] Anatomical Region Laterality Modality Head, Neuroradiology RST [facility] , Neuroradiology ARZ [facility], Neuroradiology FLA [facility] N/A Computed Tomography 05/30/2022 10:4 [...] 8.0 05/30/2022 10:13 AM CDT MKTO Specific [place] 1.018 1.001 - 1.035 05/30/2022 10:13 AM [...] LAB URINE OR DERABLES Performing Organization Address City/[facility]/ZIP Co de Phone Number [facility] [address] [place] [address], [place] [address] * Test, POCT, Urine (lab) (05/30/2022 9:48 AM CDT) Test, POCT, U Negative 05/30/2022 10:19 AM CDT MKTO Urine (Urine, Midstream) 05/30/2022 9:48 AM CDT 05/30/2022 9:56 AM CDT Wade Lawrence P.A.-C. M.S. LAB POCT ORD ERABLES - DEVICE Performing Organization Address [facility] Co de Phone Number [facility] [address] [place] [address], [place] [address] * Troponin T, Baseline, 5th gen (05/30/2022 9:46 AM CDT) Troponin T, Baseline, 5th gen <6 <=10 ng/L 05/30/2022 10:23 AM CDT MKTO Blood (Blood, Venous) 05/30/2022 9:46 AM CDT 05/30/2022 10:01 AM CDT Wade Lawrence P.A.-C. MKarla LAB BLOOD TR OPONIN Performing Organization Address City/[facility]/ZIP Co de Phone Number [facility] [address] [place] [address] * Lipase (05/30/2022 9:46 AM CDT) Lipase, P 40 13 - 60 U/L 05/30/2022 10:22 AM CDT MKTO Blood (Blood, Venous) 05/30/2022 9:46 AM CDT 05/30/2022 10:01 AM CDT Wade Lawrence P.A.-C., M.S. LAB BLOOD AD D-ON Performing Organization Address City/[facility] Co de Phone Number [facility] [address] [place] [address], [place] [address] * (ABNORMAL) Comprehensive Metabolic Panel (05/30/2022 9:46 [...] M.S. LAB BLOOD AD D-ON [facility] [address] [place] [address], [facility] MKTO [facility] [place] [address] * CBC with Differential, Blood (05/30/2022 9:46 [...] Lawrence P.A.-C., M.S. LAB BLOOD AD D-ON [facility] [address] [place] [address], [facility] MKTO [facility] [place] [address] * ECG 12 Lead (05/30/2022 9:36 AM CDT) Ventricular Rate ECG/Min 68 BPM MUSE [place] Interval 132 ms MUSE QRSD Interval 88 ms MUSE QT Interval 384 ms MUSE QTC Interval 408 ms MUSE P [place] 60 degrees MUSE R [place] 11 degrees MUSE T Wave [place] 9 degrees MUSE 05/30/2022 9:36 AM CDT [...] Total Score: 3 04/23/19 22 8:30 AM DIVISION HUMAN RESOURCES MANAGER documented as of this encounter Care Teams Silk Screen Printing Racker Relationship Specialty Start Date End Date Elsewhere, Pcp PCP - General Internal Medicine 01/07/22 documented as of this encounter
--- OUTSIDE RECORDS SUMMARY | 2023-04-25 08:13 | XMS_ITS | Encounter Summary ---
Author Name Unknown Organization [facility] Address [address] [place] [address] Care Team Providers Care Last Repairer Name Role Phone Elsewhere, Pcp Primary Care [...] CDT - 08/23/2022 1:34 AM CDT Emergency [facility] [address] [place] [phone] Huong Gomez APRN, C.N.P., D.N.P. [address] [place] [phone] Pain Flank (Primary Dx); Abdominal Pain Discharge [...] week 04/03/2022 How often do you attend [facility] or baptism services? 1 to 4 times [...] Answer Date Recorded PHQ-2 Score 0 12/10/2021 [facility] [place] of Occupat ional Health - Occupational Stress [...] Ketone Negative Bilirubin Negative pH 6.5 Specific [place] 1.005 Urobilinogen 0.2 Not suspicious for infectious process [place] Aug 23, 2022 0107 Comprehensive Metabolic Panel(!): [...] APRN, C.N.P., D.N.P. LAB B RANJANA ADD-ON [facility] [address] [place] [address], [place] MKTO [facility] [place] [address] [place] [address] * (ABNORMAL) Comprehensive Metabolic Panel (08/23/2022 12:25 AM CDT) [facility] Potassium, P 3.5(L) 3.6 - 5.2 mmol/L [...] APRN, C.N.P., D.N.P. LAB B LOOD ADD-ON [facility] [address] [place] [address], [facility] MKTO [facility] [place] [address] [place] [address] * (ABNORMAL) CBC with Differential, Blood (08/23/2022 [...] LAB B LOOD ADD-ON Performing Organization Address [facility] Co de Phone Number [facility] [address] [place] [address] * Microscopic Automated (08/22/2022 8:06 PM CDT) [...] LAB U RINE ORDERABLES Performing Organization Address [facility] Co de Phone Number [facility] [address] [place] [address], [address] [place] [address] * (ABNORMAL) Urinalysis with Microscopic if Indicated [...] 8.0 08/22/2022 8:15 PM CDT MKTO Specific [place] 1.005 1.001 - 1.035 08/22/2022 8:15 PM CDT MKTO Urobilinogen 0.2 0.2 - 1.0 mg/dL 08/22/2022 8:15 PM CDT MKTO Urine (Urine, Midstream) 08/22/2022 8:06 PM CDT 08/22/2022 8:08 PM CDT Huong Gomez APRN, C.N.P., D.N.P. LAB U RAMYE ORDERABLES [facility] [address] [place] [address], [facility] MKTO [facility] [place] [address] documented in this encounter Visit Diagnoses Diagnosis [...] Total Score: 3 04/23/19 22 8:30 AM SPORTS MANAGEMENT PROFESSOR documented as of this encounter Care Teams Last Repairer Relationship Specialty Start Date End Date Elsewhere, Pcp PCP - General Internal Medicine 01/07/22 documented as of this encounter
--- OUTSIDE RECORDS SUMMARY | 2023-04-25 08:13 | XMS_ITS | Encounter Summary ---
Author Name Unknown Organization [facility] Address [address] [place] [address] Care Team Providers Care Bass Viol Repairer Name Role Phone Elsewhere, Pcp Primary Care Provider Unavailabl e Reason for Visit * Reason Comments Chest Pain Pt presents to ED wi th mid/left chest pain that began last night. Fibromyalgia hx but reports this new pain feels different. Encounter Details Date Type Department Care Team ([facility] st Contact Info) Description 10/07/2022 12:08 PM CDT - 10/07/2022 2:48 PM CDT Emergency [facility] [address] [place] [phone] Danny Boogie M.D. [address] [place] [address] [phone] Pain Chest Atypical (Primary Dx) Discharge Disposition: [...] Answer Date Recorded PHQ-2 Score 0 12/10/2021 [facility] [place] of Occupat ional Health - Occupational Stress [...] Care Everywhere. * Nonspecific Chest Pain Adult (Romansh) documented in this encounter Medications at Time [...] assessment and management. History provided by: Patient director trial needed/used: no REVIEW OF SYSTEMS Constitutional: Negative [...] Impression IMPRESSION: Normal sinus rhythm with short IN Minimal voltage criteria for LVH, may be [...] Date: 10/07/2022 Normal sinus rhythm with short IN Minimal voltage criteria for LVH, may be [...] ED Prescriptions None DISPOSITION Home or Self Assisted or Self Care Danny Boogie M.D. 10/07/22 [...] M.D. LAB BLOOD ADD-ON Performing Organization Address City/[facility]/ZIP Co de Phone Number [facility] [address] [place] [address], [facility] NPRG [address] [address] * Lipase (10/07/2022 12:17 PM CDT) Lipase, P 38 13 - 60 U/L 10/07/2022 1: 01 PM CDT NPRG Blood (Blood, Venous) 10/07/2022 12:17 PM CDT 10/07/2022 12:38 PM CDT Danny Boogie M.D. LAB BLOOD ADD-ON [facility] [address] [place] [address], [facility] NPRG [address] [address] * (ABNORMAL) CBC with Differential, Blood (10/07/2022 [...] CDT Danny Boogie M.D. LAB BLOOD ADD-ON [facility] [address] [place] [address], [facility] NPRG [facility] [address] [place] [address] * Troponin T, Baseline, 5th gen (10/07/2022 12:17 PM CDT) Troponin T, Baseline, 5th gen <6 <=10 ng/L 10/07/2022 12:51 PM CDT NPRG Blood (Blood, Venous) 10/07/2022 12:17 PM CDT 10/07/2022 12:34 PM CDT Danny Boogie M.D. LAB BLOOD [place] IN [facility] [address] [place] [address], [place] NPR[facility] [address] [place] [address] * (ABNORMAL) Basic Metabolic Panel (10/07/2022 12:17 [...] CDT Danny Boogie M.D. LAB BLOOD ADD-ON [facility] [address] [place] [address], [place] [facility] [address] [place] [address] * ECG 12 Lead (10/07/2022 12:07 PM CDT) Ventricular Rate ECG/Min 71 BPM MUSE IN Interval 136 ms MUSE QRSD Interval 86 ms MUSE QT Interval 396 ms MUSE QTC Interval 430 ms MUSE P [place] 45 degrees MUSE R [place] -3 degrees MUSE T Wave [place] 20 degrees MUSE 10/07/2022 12:0 7 PM CDT 10/07/2022 1:13 PM CDT Impressions MUSE - 10/07/2022 1:13 PM CDT Normal sinus rhythm with short IN Minimal voltage criteria for LVH, may be normal variant Nonspecific T wave abnormality When compared with ECG of 30-MAY-2022 09:36, Minimal criteria for Left ventricular hypertrophy are now present Reviewed by WHIT Broderick Narrative Procedure Note Alex Cho M.D. - 10/07/2022 IMPRESSION: Normal sinus rhythm with short IN Minimal voltage criteria for LVH, may be [...] 1235 (Medication Mariah lied - Provider: Jana Leblanc)1449 (Due: Medication Removed - Provider: Discharge Provider, Automatic - Comment: Time automatically adjusted from order being discontinued) documented in this encounter Additional Health Concerns Assessment Noted Time PHQ-9 Depression Total Score: 3 04/23/19 22 8:30 AM AUTO SERVICE REPRESENTATIVE documented as of this encounter Care Teams Bass Viol Repairer Relationship Specialty Start Date End Date Elsewhere, Pcp PCP - General Internal Medicine 01/07/22 documented as of this encounter
--- OUTSIDE RECORDS SUMMARY | 2023-04-25 08:13 | XMS_ITS | Encounter Summary ---
Author Name Unknown Organization [facility] Address [address] [place] [address] Care Team Providers Care Mental Health Counselor Name Role Phone Elsewhere, Pcp Primary Care Provider Unavailabl e Reason for Visit * Reason Onset Date Comments Constipation 08/28/2022 Encounter Details Date Type Department Care Team ([facility] st Contact Info) Description 08/28/2022 Nurse Triage Department of Family Medicine in [place], [place] [address] [place] [phone] Head, Henny Atwood M.S.N., R.N. [address] [place] [phone] Constipation Social History Tobacco Use Types Packs/Day [...] How often do you attend chur or christian services? 1 to 4 times [...] Score 0 12/10/2021 [facility] of Occupat ionwy Health - Occupational Stress Questionnaire Answer Date [...] place to sleep or slept in a mcfp (including now)? No 04/03/2022 Depression Answer Date [...] is more swollen than usual Protocols used: [id number] Care Advice Patient/Caregiver understands and will follow [...] Total Score: 3 04/23/19 22 8:30 AM CROSSBAR FRAME WIRER documented as of this encounter Care Teams Mental Health Counselor Relationship Specialty Start Date End Date Elsewhere, Pcp PCP - General Internal Medicine 01/07/22 documented as of this encounter
--- OUTSIDE RECORDS SUMMARY | 2023-04-25 08:13 | XMS_ITS | Encounter Summary ---
Author Name Unknown Organization [facility] Address [address] [place] [address] Care Team Providers Care Inspector Circuitry Negative Name Role Phone Elsewhere, Pcp Primary Care Provider Unavailabl e Reason for Visit * Reason Onset Date Comments Flank Pain 08/24/2022 Appt Request 08/24/2022 Encounter Details Date Type Department Care Team (Latest Contact Info) Description 08/24/2022 Clinical Communication Department of Urology in [place], [place] [address] [place] [phone] Elsewhere, Pcp Flank Pain; Appt [...] Answer Date Recorded PHQ-2 Score 0 12/10/2021 [facility] - Occupational Stress Questionnaire Answer Date Recorded [...] follow up with PCP Dr. Lau in [facility] and he ordered a US of gallbladder. Pt states she does not need anything further at this time and disregard request to see Urology. documented in this encounter Plan of Treatment Not on file documented as of this encounter Visit Diagnoses Not on filedocumented in this encounter Additional Health Concerns Assessment Noted Time PHQ-9 Depression Total Score: 3 04/23/19 22 8:30 AM OUTREACH LIBRARIAN documented as of this encounter Care Teams Inspector Circuitry Negative Relationship Specialty Start Date End Date Elsewhere, Pcp PCP - General Internal Medicine 01/07/22 documented as of this encounter
--- OUTSIDE RECORDS SUMMARY | 2023-04-25 08:13 | XMS_ITS | Encounter Summary ---
Author Name Unknown Organization [facility] Address [address] [place] [address] Care Team Providers Care Hook Tender Name Role Phone Elsewhere, Pcp Primary Care Provider Unavailabl e Reason for Visit * Reason Comments Constipation Pt presents with fatou oing constipation. Pt was seen in [facility] ED and was increased to 2x day miralax. Pt reports abdominal pain around umbilicus Encounter Details Date Type Department Care Team (Late st Contact Info) Description 08/30/2022 8:07 PM CDT - 08/30/2022 10:34 PM CDT Emergency [facility] [address] [place] [phone] Boyd Lynn M.D. [address] [place] [phone] Discomfort Abdominal (Primary Dx) Discharge Disposition: Home [...] How often do you attend chur or church services? 1 to 4 times per year [...] PHQ-2 Score 0 12/10/2021 [facility] [place] of Occupat ional Health - Occupational Stress [...] Lynn M.D. - 08/30/2022 10:08 PM CDT [facility] Department of Emergency Medicine- [facility] 08/31/2022 1:13 AM CDT *Encounter labs and radiology results at the end of this note* Chief Complaint Patient presents with Constipation Pt presents with ongoing constipation. Pt was seen in [facility] ED and was increased to 2x [...] had problems with constipation. Seen in the [facility] about a week ago with [...] Total Score: 3 04/23/19 22 8:30 AM GIRLS SWIMMING COACH documented as of this encounter Care Teams Hook Tender Relationship Specialty Start Date End Date Elsewhere, Pcp PCP - General Internal Medicine 01/07/22 documented as of this encounter
--- OUTSIDE RECORDS SUMMARY | 2023-04-25 08:13 | XMS_ITS | Encounter Summary ---
Author Name Unknown Organization [facility] Address [address] [place] [address] Care Team Providers Care Service Center Assistant Name Role Phone Elsewhere, Pcp Primary Care Provider Unavailabl e Reason for Visit * Reason Comments Abdominal Pain Pt presents with per sistent abdominal pain, bloating and constipation. Taking miralx and today had MOM with no relief. Encounter Details Date Type Department Care Team ([facility] st Contact Info) Description 08/28/2022 10:56 PM CDT - 08/29/2022 1:02 AM CDT Emergency [facility] Emergency Department [address] [place] [phone] Jerome Patterson P.A.-C. [address] [place] [phone] Constipation (Primary Dx) Discharge Disposition: Home or [...] How often do you attend chur or yazdanism services? 1 to 4 times per year [...] Answer Date Recorded PHQ-2 Score 0 12/10/2021 [facility] [place] of Occupat ional Health - Occupational Stress [...] Jerome Patterson P.A.-C. DISPOSITION: Home or Self Senior Living or Self Care FOLLOW UP: With PCP [...] Total Score: 3 04/23/19 22 8:30 AM CENTRIFUGE OPERATOR documented as of this encounter Care Teams Service Center Assistant Relationship Specialty Start Date End Date Elsewhere, Pcp PCP - General Internal Medicine 01/07/22 documented as of this encounter
--- OUTSIDE RECORDS SUMMARY | 2023-04-25 08:13 | XMS_ITS | Encounter Summary ---
Author Name Unknown Organization [facility] Address [address] [place] [address] Care Team Providers Care Tester Wafer Substrate Name Role Phone Elsewhere, Pcp Primary Care Provider Unavailabl e Reason for Visit * Reason Comments side pain L breast area Encounter Details Date Type Department Care Team ([facility] st Contact Info) Description 06/01/2022 11:00 AM CDT Office Visit Urgent Care, [facility], in [place], [place] [address] [place] [phone] Tania Fischer, CELINA, C.N.P., R.N. [address] [place] [phone] Pain Rib (Primary Dx); Strain Back Muscle [...] How often do you attend chur or voodoo services? 1 to 4 times per year [...] Answer Date Recorded PHQ-2 Score 0 12/10/2021 [facility] [place] of Occupat ional Health - Occupational Stress [...] Care Everywhere. * Nonspecific Chest Pain Adult (Niuean) documented in this encounter Progress Notes * Tania Fischer APRN, C.N.P. - 06/01/2022 11:00 AM CDT SUBJECTIVE CHIEF COMPLAINT / REASON FOR VISIT side pain (L breast area) HISTORY OF PRESENT ILLNESS Henny Rivas is a 41 y.o. female who presents for evaluation of left sided breast/rib cage discomfort. Nervous as this pain comes and goes. Was seen in [facility] 2 days ago. They were at [...] back discomfort. Patient has been seen at [facility] 2 days ago. With comprehensive workup without [...] with. We did review the brochure from [facility] on stress management including pages 3 and [...] discussed and reviewed in AVS. Discharged from [facility] in an independent, vitally stable condition. documented in this encounter Plan of Treatment Not on file documented as of this encounter Visit Diagnoses Diagnosis Pain Rib- Primary Strain Back Muscle Subsequent documented in this encounter Additional Health Concerns Assessment Noted Time PHQ-9 Depression Total Score: 3 04/23/19 22 8:30 AM PAPER NOVELTY MAKER documented as of this encounter Care Teams Tester Wafer Substrate Relationship Specialty Start Date End Date Elsewhere, Pcp PCP - General Internal Medicine 01/07/22 documented as of this encounter
--- OUTSIDE RECORDS SUMMARY | 2023-04-25 08:13 | XMS_ITS | Encounter Summary ---
Author Name Unknown Organization [facility] Address [address] [place] [address] Care Team Providers Care Social Worker Aide Name Role Phone Elsewhere, Pcp Primary Care Provider Unavailabl e Reason for Visit * Reason Comments Anxiety Patient reports feel ing shaky and anxious, which has starting after increasing her Zoloft to 75 mg. Encounter Details Date Type Department Care Team ([facility] st Contact Info) Description 06/09/2022 4:00 PM CDT - 06/09/2022 4:59 PM CDT Emergency [facility] [address] [place] [phone] Jesus Manuel Rodriguez M.D. [address] [place] [phone] Anxiety (Primary Dx) Discharge Disposition: Home or [...] How often do you attend chur or scientology services? 1 to 4 times per year [...] Answer Date Recorded PHQ-2 Score 0 12/10/2021 [facility] [place] of Occupat ional Health - Occupational Stress [...] vomiting abdominal pain. 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
--- OUTSIDE RECORDS SUMMARY | 2023-04-25 08:14 | XMS_ITS | Continuity of Care Document ---
Author Name Unknown Address [address] [place] [address] Phone [phone] Organization [facility], [id number] Address [address] [facility] [address] [place] [address] Care Team Providers Care Sales Representative Womens Health Name Role Phone WALLY TEENA Senior Accountant Analyst NORMA MCNULTY Primary Care Provider [phone] Assessment No assessment recorded. Plan of Treatment Reminders Order Date Submit Date Provider Last Modified By Organization Details Last Modified Time Details Appointments None recorde d. Lab urinaly sis, dipstic k, auto 024 04/08/19 24 [email or web address] 5 [id number]_weyoexm rtners_yanethmonroea le, [address] [facility], [address], [place], [address], 4 13:33:54 culture , urine 024 04/08/19 24 [facility], [address] [place] [address], [id number], [place], [address], 4 07:07:53 Referral None recorde d. Procedures None recorde d. Surgeries None recorde d. Imaging None recorde d. Medication Orders None recorde d. Patient TargetsNo targets recorded. Patient Instructions Encounter Date Encounter Id Patient Instructions Last Modified By Organization Details Last Modified Time 04/08/2023 [id number] Sent Urine Culture. Will call pt with results. Always wipe from front to back. Urinate immediately after intercourse. Increase PO hydration. Drink unsweetened cranberry juice. All questions answered. [email or web address] Not available 04/08/2023 15:08:08 Reason for Referral Maternal & Medicine Re ferral for consult- ECHOGENIC AREA HEART NOTED AT [facility] Referring Physician: Teena Hargrove, ROAD [facility], Encounter Date: 04/09/2020 Results Created Date Observation Date Name Description Value Unit Range Abnormal Flag LastModifiedBy Organization Detail LastModifiedTime 04/08/19 24 04/08/2023 urina lysis , dipst ick, auto Unknown Analyte Clean Catch Not Available [id number] shai [address], [place], [address], 04/08/2023 12:58:00 04/08/19 24 04/08/2023 urina lysis , dipst ick, auto Unknown Analyte negati ve Not Available [id number] [facility] [address], [place], [address], 04/08/2023 12:58:00 04/08/19 24 04/08/2023 urina lysis , dipst ick, auto Unknown Analyte negati ve Not Available [id number] [facility] [address], [place], [address], 04/08/2023 12:58:00 04/08/19 24 04/08/2023 urina lysis , dipst ick, auto Unknown Analyte negati ve Not Available [id number] [facility] [address], [place], [address], 04/08/2023 12:58:00 04/08/19 24 04/08/2023 urina lysis , dipst ick, auto Unknown Analyte 1.010 Not Available [id number] pa ledy[address], [place], [address], 04/08/2023 12:58:00 02/01/20 24 04/08/2023 urina lysis , dipst ick, auto Unknown Analyte negati ve Not Available [id number] shai [address], [place], [address], 04/08/2023 12:58:00 04/08/19 24 04/08/2023 urina lysis , dipst ick, auto Unknown Analyte 7.0 Not Available [id number][facility]tuvts [facility] [address], [place], [address], 04/08/2023 12:58:00 04/08/19 24 04/08/2023 urina lysis , dipst ick, auto Unknown Analyte negati ve Not Available [id number] [facility] [address], [place], [address], 04/08/2023 12:58:00 04/08/19 24 04/08/2023 urina lysis , dipst ick, auto Unknown Analyte 0.2 Not Available [id number]_cjcaz pa rtmanuel [address], [place], [address], 04/08/2023 12:58:00 04/08/19 24 04/08/2023 urina lysis , dipst ick, auto Unknown Analyte negati ve Not Available [id number] shai [address], [place], [address], 04/08/2023 12:58:00 04/08/19 24 04/08/2023 urina lysis , dipst ick, auto Unknown Analyte modera te Not Available [id number] [facility] [address], [place], [address], 04/08/2023 12:58:00 04/08/19 24 04/08/2023 urina lysis , dipst ick, auto Unknown Analyte yellow Not Available [id number] pa shai le [address] [facility] [address], [place], [address], 04/08/2023 12:58:00 04/08/19 24 04/08/2023 urina lysis , dipst ick, auto Unknown Analyte slight ly cloudy Not Available [id number] shai le [address] [facility] [address], [place], [address], 04/08/2023 12:58:00 Result Notes None recorded. Problems Name Status Onset Date Resolution Date Notes Provider Name and Address Organization Details Recorded Time History of section Active 07/30/19 21 Blake Bustos null, [place] - [facility] [address] [facility] 07/29/2020 17:15:34 Multigravida of advanced maternal age Active 07/30/19 21 Blake cunningham, [place] - [facility] [address] [facility] 07/29/2020 17:15:41 Vitamin D deficiency Active Not Available [facility] 10/12/2019 05:10:31 Problem Notes None recorded. Procedures Surgical History Date Name Laterality Status Provider Name and Address Organization Details Recorded Time 3 Date of Last Mammogram completed Olga Dow (TERMED) null, [place] - [facility] [address] [facility] 07/01/2022 15:05:23 2 Date of Last Pap Smear completed Raegan Song null, [place] - [facility] [address] [facility] 01/26/2023 12:30:03 8 section completed Not Available [facility] 10/12/2019 05:09:17 Imaging Results None recorded. Procedure [...] Updated DateTime 4 167.64 cm 33.6 kg/m2 20804.2 1 g 72 /min 124 mm[Hg] 85 mm[Hg] [address] [facility] 4 13:02:56 Social History Question Answer Notes LastModified by Organizat ion Details LastModified Time Tobacco Smoking Status Never Smoker Tobacco *Status: Never Not [facility] 10/16/2019 11:59:10 Do You Have An Advance Directive? No Does Not Have A Health Directive Information not available 10/16/2019 What Is Your Level Of Alcohol Consumption? Occasional Socially Information not available 02/01/2023 How Many Times Per Week Do You Consume Alcohol? Less Than 1 Time Per Week Information not available 02/01/2023 Is Blood Transfusion Acceptable In An Emergency? Yes [email or web address] Information not available 01/26/2022 What Is Your Level Of Caffeine Consumption? None Information not available 02/01/2023 Are You Currently Employed? Yes [email or web address] Information not available 01/26/2022 What Type Of Diet Are You Following? GLUTENFREE No Sugar And Dairy Information not available 02/01/2023 What Is The Highest Grade Or Level Of School You Have Completed Or The Highest Degree You Have Received? 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 Less Than 1 Time Per Week Information not available 02/01/2023 History Of Domestic Violence No Denies Any History Of Domestic Violence Information not available 10/16/2019 Spouse/Partners Name Sekou Rivas Information not available 02/01/2023 Ethnic Background White Or [email or web address] Information not available 01/26/2022 Are You Passively Exposed To Smoke? No Information not available 02/01/2023 Performs Monthly Self-breast Exam? No Does Not Perform Monthly Breast Exams Information not available 01/21/2021 What Is Your Relationship Status? [email or web address] Information not available 01/26/2022 Are You Sexually Active? Yes Currently Sexually Active Information not available 01/21/2021 Do You Use Any Illicit Or Recreational Drugs? No Information not available 02/01/2023 Has Tobacco Cessation Counseling Been Provided? Yes Information not available 02/01/2023 On What Date Was Tobacco Cessation Counseling Provided? 02/01/2023 Information not available 02/01/2023 Are You Currently In School? No [email or web address] Information not available 01/26/2022 Sex: Female Functional [...] Time Tdap 07/23/[address] [facility] 07/23/2020 15:22:22 Tdap 11/22/2017 completed Not [facility] 05:09:39 Tdap 01/15/2014 completed Not Available [facility] 05:09:39 influenza, injectable, quadrivalent, preservative free 11/22/[address] [facility] 01/21/2021 11:39:02 Past Encounters Encounter ID Performer Location Encounter Start Date Encounter Closed Date Diagnosis/Indication [id number] MAURISIO FRAIRE PA-C [id number] [id number] 04/02/2023 12:55:29 04/05/2023 13:42:55 Vaginitis Urinary symptoms [id number] MAURISIO FRAIRE PA-C [id number] [address] 04/08/2023 12:44:47 04/08/2023 15:33:25 Urinary symptoms Health Concerns Section Related Observation LastModified by Organization Detai ls LastModified Time None Recorded Concern Status LastModified by Organization Details LastModified Time None Recorded Payers Encounter Date Sequence Insurance Name Policy Number Policy Silva Covered Member ID Silva Member ID Guarantor Name 04/08/2023 1 [facility] [id number] Shirley Rivas [id number] Henny Rivas Notes Date Note Type Note [...] bladder infection has resolved. MAURISIO FRAIRE PA-C [id number] [facility],[address], [place], [address], [place] - [facility] [address] [facility] 04/08/2023 15:08:47 OBGyn Episode No OBEpisode recorded.
--- OUTSIDE RECORDS SUMMARY | 2023-04-25 08:14 | XMS_ITS | Referral Summary ---
Author Name Unknown Organization [place] Address [address] [place] [id number] Care Team Providers Care Nutrition Services Manager Name Role Phone Teena Hargrove MD Primary Care Provider [phone] Seble Dickinson PA-C Unavailable [phone] Allergies Active Allergy Reactions Criticality Noted Date [...] Active VANCE-D 12 HOUR## 60-120 MG OR [id number]:Allerg ic rhinitis, cause unspecified 1 TABLET TWICE [...] 108.9 kg (240 lb) 03/17/2020 12:13 PM [facility]K REEL OPERATOR Height 167.6 cm (5' 6) 02/19/2019 2:39 PM DYE BECK REEL OPERATOR Body Mass Index 38.74 02/19/2019 2:39 PM DYE BECK REEL OPERATOR Plan of Treatment Not on file Procedures Procedure Name Priority Date/Time Associated Diagnosis Comments URINE CULTURE Routine 04/08/2023 12:29 PM DYE BECK REEL OPERATOR Unspecified symptoms and signs involving the genitourinary system CBC WITH PLATELETS Routine 02/01/2023 10 :25 AM DYE BECK REEL OPERATOR Encounter for screening for diseases of the blood and blood-forming organs and certain disorders involving the immune mechanism LIPID PROFILE Routine 02/01/2023 10:25 AM DYE BECK REEL OPERATOR Encounter for screening for lipoid disorders HEMOGLOBIN A1C Routine 02/01/2023 10:25 AM DYE BECK REEL OPERATOR Encounter for screening for diabetes mellitus HPV HOLD (LAB ONLY) Routine 02/01/2023 1 0:00 AM DYE BECK REEL OPERATOR Encounter for screening for malignant neoplasm of cervix GYNECOLOGIC CYTOLOGY Routine 02/01/2023 10:00 AM DYE BECK REEL OPERATOR Encounter for screening for malignant neoplasm of cervix HPV HIGH RISK TYPES DNA CERVICAL Routine 02/01/2023 10:00 AM DYE BECK REEL OPERATOR Encounter for screening for malignant neoplasm of cervix from Last 3 Months Results * Urine Culture (04/08/2023 12:29 PM DYE BECK REEL OPERATOR) Culture <10,000 CFU/mL Urogenital alexis 04/10/2023 6:05 AM DYE BECK REEL OPERATOR [facility] Urine MID-STREAM URINE SPECIMEN / Unknown Non-blood Collection / Unknown 04/08/2023 12:29 PM DYE BECK REEL OPERATOR 04/08/2023 7:55 PM DYE BECK REEL OPERATOR Jericho Hernandez PA-C LAB - MICRO GEN ERAL ORDERABLES [facility] Inf. Diseases Diag. Lab [address] [facility], [address] [place] [address], [facility] [phone] * (ABNORMAL) Lipid Profile (02/01/2023 10:25 AM DYE BECK REEL OPERATOR) Cholesterol 198 <200 mg/dL 02/01/2023 2:46 PM DYE BECK REEL OPERATOR [facility] Triglycerides 102 <150 mg/dL 02/01/2023 2:46 PM DYE BECK REEL OPERATOR [facility] Direct Measure HDL 53 >=50 mg/dL 02/01/2023 2:46 PM DYE BECK REEL OPERATOR [facility] LDL Cholesterol Calculated 125(H) <=100 mg/dL 02/01/2023 2:46 PM DYE BECK REEL OPERATOR [facility] Non HDL Cholesterol 145(H) <130 mg/dL 02/01/2023 2:46 PM DYE BECK REEL OPERATOR [facility] Blood TOPOGRAPHY UNKNOWN / Unknown Client Draw / Unknown 02/01/2023 10:25 AM DYE BECK REEL OPERATOR 02/01/2023 1:09 PM DYE BECK REEL OPERATOR Narrative [facility] - 02/01/2023 2:46 PM DYE BECK REEL OPERATOR Cholesterol Desirable: ??<200 mg/dL Triglycerides Normal: ??Less [...] LAB - BLOOD ORD ERABLES [facility] [place] [facility] [address] [facility], [address] [place] [address], [facility] [phone] * Hemoglobin A1c (02/01/2023 10:25 AM DYE BECK REEL OPERATOR) Hemoglobin A1C 5.2 <5.7 % 02/01/2023 1:39 PM DYE BECK REEL OPERATOR [facility] Comment: Normal <5.7% Prediabetes 5.7-6.4% ?? Diabetes 6.5% or higher Note: Adopted from ADA consensus guidelines. Blood TOPOGRAPHY UNKNOWN / Unknown Client Draw / Unknown 02/01/2023 10:25 AM DYE BECK REEL OPERATOR 02/01/2023 1:08 PM DYE BECK REEL OPERATOR Jericho Hernandez PA-C LAB - BLOOD ORD ERABLES [facility] [place] [facility] [address] [facility], [address] [place] [address], [facility] [phone] * (ABNORMAL) CBC with platelets (02/01/2023 10:25 AM DYE BECK REEL OPERATOR) WBC Count 8.4 4.0 - 11.0 10e3/uL 02/01/2023 1:28 PM DYE BECK REEL OPERATOR [facility] RBC Count 5.34(H) 3.80 - 5.20 10e6/uL 02/01/2023 1:28 PM DYE BECK REEL OPERATOR [facility] Hemoglobin 15.0 11.7 - 15.7 g/dL 02/01/2023 1:28 PM DYE BECK REEL OPERATOR [facility] Hematocrit 46.6 35.0 - 47.0 % 02/01/2023 1:28 PM DYE BECK REEL OPERATOR [facility] MCV 87 78 - 100 fL 02/01/2023 1:28 PM DYE BECK REEL OPERATOR [facility] MCH 28.1 26.5 - 33.0 pg 02/01/2023 1:28 PM DYE BECK REEL OPERATOR [facility] MCHC 32.2 31.5 - 36.5 g/dL 02/01/2023 1:28 PM DYE BECK REEL OPERATOR [facility] RDW 13.8 10.0 - 15.0 % 02/01/2023 1:28 PM DYE BECK REEL OPERATOR [facility] Platelet Count 330 150 - 450 10e3/uL 02/01/2023 1:28 PM DYE BECK REEL OPERATOR [facility] Blood BLOOD SPECIMEN / Unknown Client Draw / Unknown 02/01/2023 10:25 AM DYE BECK REEL OPERATOR 02/01/2023 1:08 PM DYE BECK REEL OPERATOR Jericho Hernandez PA-C LAB - BLOOD ORD ERAEDWARD [facility] [place] [facility] [address] [facility] [address], [address] [place] [address], [facility] [phone] * HPV Hold (Lab Only) (02/01/2023 10:00 AM DYE BECK REEL OPERATOR) Brushing CERVIX UTERI STRUCTURE / Unknown Non-blood Collection / Unknown 02/01/2023 10:00 AM DYE BECK REEL OPERATOR 02/04/2023 8:08 AM DYE BECK REEL OPERATOR Jericho ROGEL [facility] [address] [facility] [address] [facility], [address] [place] [address], [facility] [phone] * Gynecologic Cytology (PAP) (02/01/2023 10:00 AM DYE BECK REEL OPERATOR) Interpretation Negative for Intraepithelial Lesion or Malignancy (NILM) 02/03/2023 9:28 AM [facility] Comment Papanicolaou Test Limitations: Cervical cytology is a screening test with limited sensitivity, and regular screening is critical for cancer prevention. Pap tests are primarily effective for the diagnosis/prevent ion of squamous cell carcinoma, not adenocarcinoma or other cancers. 02/03/2023 9:28 AM DYE BECK REEL OPERATOR [facility] Specimen Adequacy Satisfactory for evaluation, endocervical/wilkes sformation zone component present 02/03/2023 9:28 AM [facility] Clinical Information none 02/03/2023 9:28 AM DYE BECK REEL OPERATOR [facility] LMP/Menopause Date 01-24-2023 02/03/2023 9:28 AM DYE BECK REEL OPERATOR [facility] Reflex Testing Yes regardless of result 02/03/2023 9:28 AM DYE BECK REEL OPERATOR [facility] Previous Abnormal? No 02/03/2023 9:28 AM DYE BECK REEL OPERATOR [facility] Previous Abnormal Diagnosis NILM with NEG HPV 02/03/2023 9:28 AM DYE BECK REEL OPERATOR [facility] Performing Labs The technical component of this testing was completed at [facility] 02/03/2023 9:28 AM [facility] Brushing CERVIX UTERI STRUCTURE / Unknown 02/01/2023 10:00 AM DYE BECK REEL OPERATOR 02/01/2023 1:15 PM DYE BECK REEL OPERATOR Jericho Curz [facility] Specialty Lab [address] [facility], [address] [address], [facility] [phone] * HPV High Risk Types DNA Cervical (02/01/2023 10:00 AM DYE BECK REEL OPERATOR) Other HR HPV Negative Negative 02/04/2023 3:03 PM DYE BECK REEL OPERATOR [facility] HPV16 DNA Negative Negative 02/04/2023 3:03 PM DYE BECK REEL OPERATOR [facility] HPV18 DNA Negative Negative 02/04/2023 3:03 PM DYE BECK REEL OPERATOR [facility] FINAL DIAGNOSIS This patient's sample is negative for HPV DNA. This test was developed and its performance characteristics determined by the [facility], Molecular Diagnostics Laboratory. It has not been [...] clinical followup is recommended. 02/04/2023 3:03 PM DYE BECK REEL OPERATOR [facility] Brushing CERVIX UTERI STRUCTURE / Unknown Non-blood Collection / Unknown 02/01/2023 10:00 AM DYE BECK REEL OPERATOR 02/04/2023 8:08 AM DYE BECK REEL OPERATOR Jericho Hernandez PA-C LAB - BLOOD ORD ERABLES [facility] [address] [facility] [address], [address] [place] [address], [place] [phone] from Last 3 Months Care Teams Nutrition Services Manager Relationship Specialty Start Date End Date Teena Hargrove MD [facility] [facility] [address] [place] [address] PCP - General special delivery mail carrier 03/17/20 Seble Dickinson PA-C [address] [place] [address] Physician Retail Service Technician Urology 08/24/22
--- OUTSIDE RECORDS SUMMARY | 2023-04-25 08:14 | XMS_ITS | Clinical Summary ---
Author Name Unknown Organization [place] Address [address] [place] [address] Care Team Providers Care Chief Accounting Officer Name Role Phone Teena Hargrove MD Primary Care Provider [phone] Seble Dickinson PA-C Unavailable [phone] Allergies Active Allergy Reactions Criticality Noted Date [...] Active VANCE-D 12 HOUR## 60-120 MG OR [id number]:Allerg ic rhinitis, cause unspecified 1 TABLET TWICE [...] 108.9 kg (240 lb) 03/17/2020 12:13 PM PUBLIC HEALTH SERVICE OFFICER Height 167.6 cm (5' 6) 02/19/2019 2:39 PM PUBLIC HEALTH SERVICE OFFICER Body Mass Index 38.74 02/19/2019 2:39 PM PUBLIC HEALTH SERVICE OFFICER Plan of Treatment Health Maintenance Due Date [...] Comments URINE CULTURE Routine 04/08/2023 12:29 PM PUBLIC HEALTH SERVICE OFFICER Unspecified symptoms and signs involving the genitourinary system CBC WITH PLATELETS Routine 02/01/2023 10 :25 AM PUBLIC HEALTH SERVICE OFFICER Encounter for screening for diseases of the blood and blood-forming organs and certain disorders involving the immune mechanism LIPID PROFILE Routine 02/01/2023 10:25 AM PUBLIC HEALTH SERVICE OFFICER Encounter for screening for lipoid disorders HEMOGLOBIN A1C Routine 02/01/2023 10:25 AM PUBLIC HEALTH SERVICE OFFICER Encounter for screening for diabetes mellitus HPV HOLD (LAB ONLY) Routine 02/01/2023 1 0:00 AM PUBLIC HEALTH SERVICE OFFICER Encounter for screening for malignant neoplasm of cervix GYNECOLOGIC CYTOLOGY Routine 02/01/2023 10:00 AM PUBLIC HEALTH SERVICE OFFICER Encounter for screening for malignant neoplasm of cervix HPV HIGH RISK TYPES DNA CERVICAL Routine 02/01/2023 10:00 AM PUBLIC HEALTH SERVICE OFFICER Encounter for screening for malignant neoplasm of cervix from Last 3 Months Results * Urine Culture (04/08/2023 12:29 PM PUBLIC HEALTH SERVICE OFFICER) Culture <10,000 CFU/mL Urogenital alexis 04/10/2023 6:05 AM PUBLIC HEALTH SERVICE OFFICER [facility] Urine MID-STREAM URINE SPECIMEN / Unknown Non-blood Collection / Unknown 04/08/2023 12:29 PM PUBLIC HEALTH SERVICE OFFICER 04/08/2023 7:55 PM PUBLIC HEALTH SERVICE OFFICER Jericho Hernandez PA-C LAB - MICRO GEN ERAL ORDERABLES [facility] Inf. Diseases Diag. Lab [address] [facility], [address] [place] [address], [facility] [phone] * (ABNORMAL) Lipid Profile (02/01/2023 10:25 AM PUBLIC HEALTH SERVICE OFFICER) Cholesterol 198 <200 mg/dL 02/01/2023 2:46 PM PUBLIC HEALTH SERVICE OFFICER [facility] Triglycerides 102 <150 mg/dL 02/01/2023 2:46 PM PUBLIC HEALTH SERVICE OFFICER [facility] Direct Measure HDL 53 >=50 mg/dL 02/01/2023 2:46 PM PUBLIC HEALTH SERVICE OFFICER [facility] LDL Cholesterol Calculated 125(H) <=100 mg/dL 02/01/2023 2:46 PM PUBLIC HEALTH SERVICE OFFICER [facility] Non HDL Cholesterol 145(H) <130 mg/dL 02/01/2023 2:46 PM PUBLIC HEALTH SERVICE OFFICER [facility] Blood TOPOGRAPHY UNKNOWN / Unknown Client Draw / Unknown 02/01/2023 10:25 AM PUBLIC HEALTH SERVICE OFFICER 02/01/2023 1:09 PM PUBLIC HEALTH SERVICE OFFICER Narrative [facility] - 02/01/2023 2:46 PM PUBLIC HEALTH SERVICE OFFICER Cholesterol Desirable: ??<200 mg/dL Triglycerides Normal: ??Less [...] LAB - BLOOD ORD ERABLES [facility] [place] [facility] [address] [facility], [address] [place] [address], [facility] [phone] * Hemoglobin A1c (02/01/2023 10:25 AM PUBLIC HEALTH SERVICE OFFICER) Hemoglobin A1C 5.2 <5.7 % 02/01/2023 1:39 PM PUBLIC HEALTH SERVICE OFFICER [facility] Comment: Normal <5.7% Prediabetes 5.7-6.4% ?? Diabetes 6.5% or higher Note: Adopted from ADA consensus guidelines. Blood TOPOGRAPHY UNKNOWN / Unknown Client Draw / Unknown 02/01/2023 10:25 AM PUBLIC HEALTH SERVICE OFFICER 02/01/2023 1:08 PM PUBLIC HEALTH SERVICE OFFICER Jericho Hernandez PA-C LAB - BLOOD ORD ERAEDWARD [facility] [facility] [address] [facility], [address] [place] [address], [facility] [phone] * (ABNORMAL) CBC with platelets (02/01/2023 10:25 AM PUBLIC HEALTH SERVICE OFFICER) WBC Count 8.4 4.0 - 11.0 10e3/uL 02/01/2023 1:28 PM PUBLIC HEALTH SERVICE OFFICER [facility] RBC Count 5.34(H) 3.80 - 5.20 10e6/uL 02/01/2023 1:28 PM PUBLIC HEALTH SERVICE OFFICER [facility] Hemoglobin 15.0 11.7 - 15.7 g/dL 02/01/2023 1:28 PM PUBLIC HEALTH SERVICE OFFICER [facility] Hematocrit 46.6 35.0 - 47.0 % 02/01/2023 1:28 PM PUBLIC HEALTH SERVICE OFFICER [facility] MCV 87 78 - 100 fL 02/01/2023 1:28 PM PUBLIC HEALTH SERVICE OFFICER [facility] MCH 28.1 26.5 - 33.0 pg 02/01/2023 1:28 PM PUBLIC HEALTH SERVICE OFFICER [facility] MCHC 32.2 31.5 - 36.5 g/dL 02/01/2023 1:28 PM PUBLIC HEALTH SERVICE OFFICER [facility] RDW 13.8 10.0 - 15.0 % 02/01/2023 1:28 PM PUBLIC HEALTH SERVICE OFFICER [facility] Platelet Count 330 150 - 450 10e3/uL 02/01/2023 1:28 PM PUBLIC HEALTH SERVICE OFFICER [facility] Blood BLOOD SPECIMEN / Unknown Client Draw / Unknown 02/01/2023 10:25 AM PUBLIC HEALTH SERVICE OFFICER 02/01/2023 1:08 PM PUBLIC HEALTH SERVICE OFFICER Jericho Hernandez PA-C LAB - BLOOD ORD ERABLES [facility] [facility] [address] [facility] [address], [address] [place] [address], [facility] [phone] * HPV Hold (Lab Only) (02/01/2023 10:00 AM PUBLIC HEALTH SERVICE OFFICER) Brushing CERVIX UTERI STRUCTURE / Unknown Non-blood Collection / Unknown 02/01/2023 10:00 AM PUBLIC HEALTH SERVICE OFFICER 02/04/2023 8:08 AM PUBLIC HEALTH SERVICE OFFICER Jericho [facility] [address] [facility] [address] [facility], [address] [place] [address], [facility] [phone] * Gynecologic Cytology (PAP) (02/01/2023 10:00 AM PUBLIC HEALTH SERVICE OFFICER) Interpretation Negative for Intraepithelial Lesion or Malignancy (NILM) 02/03/2023 9:28 AM PUBLIC HEALTH SERVICE OFFICER [facility] Comment Papanicolaou Test Limitations: Cervical cytology is a screening test with limited sensitivity, and regular screening is critical for cancer prevention. Pap tests are primarily effective for the diagnosis/prevent ion of squamous cell carcinoma, not adenocarcinoma or other cancers. 02/03/2023 9:28 AM PUBLIC HEALTH SERVICE OFFICER [facility] Specimen Adequacy Satisfactory for evaluation, endocervical/wilkes sformation zone component present 02/03/2023 9:28 AM PUBLIC HEALTH SERVICE OFFICER [facility] Clinical Information none 02/03/2023 9:28 AM PUBLIC HEALTH SERVICE OFFICER [facility] LMP/Menopause Date 01-24-2023 02/03/2023 9:28 AM PUBLIC HEALTH SERVICE OFFICER [facility] Reflex Testing Yes regardless of result 02/03/2023 9:28 AM PUBLIC HEALTH SERVICE OFFICER [facility] Previous Abnormal? No 02/03/2023 9:28 AM PUBLIC HEALTH SERVICE OFFICER [facility] Previous Abnormal Diagnosis NILM with NEG HPV 02/03/2023 9:28 AM PUBLIC HEALTH SERVICE OFFICER [facility] Performing Labs The technical component of this testing was completed at [facility] 02/03/2023 9:28 AM PUBLIC HEALTH SERVICE OFFICER [facility] Brushing CERVIX UTERI STRUCTURE / Unknown 02/01/2023 10:00 AM PUBLIC HEALTH SERVICE OFFICER 02/01/2023 1:15 PM PUBLIC HEALTH SERVICE OFFICER Jericho Cruz BEZAHRA [facility] Specialty Lab [address] [facility], [address] [address], [facility] [phone] * HPV High Risk Types DNA Cervical (02/01/2023 10:00 AM PUBLIC HEALTH SERVICE OFFICER) Other HR HPV Negative Negative 02/04/2023 3:03 PM PUBLIC HEALTH SERVICE OFFICER [facility] HPV16 DNA Negative Negative 02/04/2023 3:03 PM PUBLIC HEALTH SERVICE OFFICER [facility] HPV18 DNA Negative Negative 02/04/2023 3:03 PM PUBLIC HEALTH SERVICE OFFICER [facility] FINAL DIAGNOSIS This patient's sample is negative for HPV DNA. This test was developed and its performance characteristics determined by the [facility], Molecular Diagnostics Laboratory. It has [...] clinical followup is recommended. 02/04/2023 3:03 PM PUBLIC HEALTH SERVICE OFFICER [facility] Brushing CERVIX UTERI STRUCTURE / Unknown Non-blood Collection / Unknown 02/01/2023 10:00 AM PUBLIC HEALTH SERVICE OFFICER 02/04/2023 8:08 AM PUBLIC HEALTH SERVICE OFFICER Jericho Bere Hernandez PA-C LAB - BLOOD ORD ERABLES [facility] [address] [facility] [address], [address] [place] [address], [place] [phone] from Last 3 Months Care Teams Chief Accounting Officer Relationship Specialty Start Date End Date Teena Hargrove MD [address] [place], [place] [id number] PCP - General aquatic physiotherapist 03/17/20 Seble Dickinson PA-C [address] [place], [place] [address] Physician Centrifugal Station Operator Urology 08/24/22
--- OUTSIDE RECORDS SUMMARY | 2023-04-25 08:14 | XMS_ITS | Continuity of Care Document ---
Author Name Unknown Address [address] [place] [address] Phone [phone] Organization [facility] [facility] [employer], [id number] Address [address] [place] [address] [place] [address] Care Team Providers Care Sound Technician Name Role Phone WALLY TEENA Mobile Home Park Manager NORMA MCNULTY Primary Care Provider Assessment No assessment recorded. Plan of Treatment Reminders Order Date Submit Date Provider Last Modified By Organization Details Last Modified Time Details Appointments None recorded. Lab urinalysis, dipstick, auto 2023 024 apetersen 35 [id number] rtners_lilyda le, [address] [facility], [address], [place], [address], 4 13:55:52 bacterial vaginosis + vaginitis panel, vaginal 2023 024 apetersen 35 [id number] rtners_lilyda le, [address] [facility], [address], [place], [address], 4 17:01:44 Referral None recorded. Procedures None recorded. Surgeries None recorded. Imaging None recorded. Medication Orders Diflucan 150 mg tablet [facility]23 [facility]24 [facility] [address] [place] [address], [place], [address], 4 17:14:54 metronidazo le 0.75 % (37.5 mg/5 gram) vaginal gel 2023 024 [facility], [address], [place], [address], 17:14:55 Patient TargetsNo targets recorded. Patient Instructions Encounter Date Encounter Id Patient Instructions Last Modified By Organization Details Last Modified Time 04/02/2023 [id number] Sent BDAffirm. Notified pt that swab is positive for BV and sent scripts. RTC after completing Cipro to confirm UTI has fully resolved. Cotton underware only. Do no wear underware at night. Avoid feminine wipes, douches, pantyliner use. Change clothes immediately after exercising. All questions answered. [email or web address] Not available 04/02/2023 17:15:35 Reason for Referral Maternal & Medicine Re [facility] for consult- ECHOGENIC AREA HEART NOTED AT [facility] Referring Physician: Teena Hargrove, [employer], Encounter Date: 04/09/2020 Results Created Date Observation Date Name Description Value Unit Range Abnormal Flag LastModifiedBy Organization Detail LastModifiedTime 04/02/1904/02/2023 bacte rial vagin osis + vagin itis panel , vagin al gardnerella positi ve negati ve abnormal Not Available [id number] arnoldoyanethmonroe[address], [address], 04/01/2023 10:09:21 04/02/19 24 04/02/2023 bacte rial vagin osis + vagin itis panel , vagin al trichomonas negati ve negati ve normal Not Available [id number] [address] [place] [address], [address], 04/01/2023 10:09:21 04/02/19 24 04/02/2023 bacte rial vagin osis + vagin itis panel , vagin al avery negati ve negati ve normal Not Available [id number] rtners_lilyd[address], [place], [address], 04/01/2023 10:09:21 04/02/19 24 04/02/2023 urina lysis , dipst ick, auto Unknown Analyte Clean Catch Not Available [id number] ledy[address], [place], [address], 04/01/2023 10:09:28 04/02/19 24 04/02/2023 urina lysis , dipst ick, auto Unknown Analyte negati ve Not Available [id number] [facility], [place], [address], 04/01/2023 10:09:28 04/02/19 24 04/02/2023 urina lysis , dipst ick, auto Unknown Analyte negati ve Not Available [id number] destinee[address], [place], [address], 04/01/2023 10:09:28 04/02/19 24 04/02/2023 urina lysis , dipst ick, auto Unknown Analyte negati ve Not Available [id number] ledy[address], [place], [address], 04/01/2023 10:09:28 04/02/19 24 04/02/2023 urina lysis , dipst ick, auto Unknown Analyte 1.010 Not Available [id number] pa shai [address], [place], [address], 04/01/2023 10:09:28 04/02/19 24 04/02/2023 urina lysis , dipst ick, auto Unknown Analyte trace Not Available [id number] pa rtners_lilyda [address], [place], [address], 04/01/2023 10:09:28 04/02/19 24 04/02/2023 urina lysis , dipst ick, auto Unknown Analyte 6.5 Not Available [id number] pa [facility] hospitaldinesh [address], [place], [address], 04/01/2023 10:09:28 04/02/19 24 04/02/2023 urina lysis , dipst ick, auto Unknown Analyte negati ve Not Available [id number] rtnersfartun [address], [place], [address], 04/01/2023 10:09:28 04/02/19 24 04/02/2023 urina lysis , dipst ick, auto Unknown Analyte 0.2 Not Available [id number] pa rtnersrosanna [address], [place], [address], 04/01/2023 10:09:28 04/02/19 24 04/02/2023 urina lysis , dipst ick, auto Unknown Analyte negati ve Not Available [id number] rtarnoldopark city hospitaldinesh [address], [place], [address], 04/01/2023 10:09:28 04/02/19 24 04/02/2023 urina lysis , dipst ick, auto Unknown Analyte negati ve Not Available [id number] rtcas[facility] centerdinesh [address], [place], [address], 04/01/2023 10:09:28 04/02/19 24 04/02/2023 urina lysis , dipst ick, auto Unknown Analyte yellow Not Available [id number] pa rtnersrosanna le [address] [facility] [address], [place], [address], 04/01/2023 10:09:28 04/02/19 24 04/02/2023 urina lysis , dipst ick, auto Unknown Analyte slight ly cloudy Not Available [id number] rtnersrosanna le [address] [facility] [address], [place], [address], 04/01/2023 10:09:28 Result Notes None recorded. Problems Name Status Onset Date Resolution Date Notes Provider Name and Address Organization Details Recorded Time History of section Active 07/30/19 21 Blake cunningham, [facility] [employer] 07/29/2020 17:15:34 Multigravida of advanced maternal age Active 07/30/19 21 Blake cunningham, [facility] [employer] 07/29/2020 17:15:41 Vitamin D deficiency Active Not Available [facility] 10/12/2019 05:10:31 Problem Notes None recorded. Procedures Surgical History Date Name Laterality Status Provider Name and Address Organization Details Recorded Time 3 Date of Last Mammogram completed Olga Dow (TERMED) null, [facility] [employer] 07/01/2022 15:05:23 2 Date of Last Pap Smear completed Raegan Song null, [facility] [employer] 01/26/2023 12:30:03 8 section completed Not Available [facility] 10/12/2019 05:09:17 Imaging Results None recorded. [...] Updated DateTime 4 167.64 cm 33.7 kg/m2 64808.3 7 g 64 /min 125 mm[Hg] 80 mm[Hg] Raegan cunningham, [place] [facility] [employer] 4 13:12:10 Social History Question Answer Notes LastModified by Organizat ion Details LastModified Time Tobacco Smoking Status Never Smoker Tobacco *Status: Never Not Available [facility] 10/16/2019 11:59:10 Do You Have An Advance Directive? No Does Not Have A Health Directive Information not available 10/16/2019 What Is Your Level Of Alcohol Consumption? Occasional Socially Information not available 02/01/2023 How Many Times Per Week Do You Consume Alcohol? Less Than 1 Time Per Week Information not available 02/01/2023 Is Blood Transfusion Acceptable In An Emergency? Yes [email or web address] Information not available 01/26/2022 What Is Your Level Of Caffeine Consumption? None Information not available 02/01/2023 Are You Currently Employed? Yes Information not available 01/26/2022 What Type Of Diet Are You Following? GLUTENFREE No Sugar And Dairy Information not available 02/01/2023 What Is The Highest Grade Or Level Of School You Have Completed Or The Highest Degree You Have Received? 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 Less Than 1 Time Per Week Information not available 02/01/2023 History Of Domestic Violence No Denies Any History Of Domestic Violence Information not available 10/16/2019 Spouse/Partners Name Sekou Rivas Information not available 02/01/2023 Ethnic Background White Or [email or web address] Information not available 01/26/2022 Are You Passively Exposed To Smoke? No Information not available 02/01/2023 Performs Monthly Self-breast Exam? No Does Not Perform Monthly Breast Exams Information not available 01/21/2021 What Is Your Relationship Status? [email or web address] Information not available 01/26/2022 Are You Sexually Active? Yes Currently Sexually Active Information not available 01/21/2021 Do You Use Any Illicit Or Recreational Drugs? No Information not available 02/01/2023 Has Tobacco Cessation Counseling Been Provided? Yes Information not available 02/01/2023 On What Date Was Tobacco Cessation Counseling Provided? 02/01/2023 Information not available 02/01/2023 Are You Currently In School? No [email or web address] Information not available 01/26/2022 Sex: Female Functional [...] Recorded Time Tdap 07/23/2020 completed [facility] [employer] 07/23/2020 15:22:22 Tdap 11/22/2017 completed Not Available [facility] 05:09:39 Tdap 01/15/2014 completed Not Available [facility] 05:09:39 influenza, injectable, quadrivalent, preservative free 11/22/2017 completed [facility] [employer] 01/21/2021 11:39:02 Past Encounters Encounter ID Performer Location Encounter Start Date Encounter Closed Date Diagnosis/Indication [id number] MAURISIO FRAIRE PA-C [id number] RAMONA_JOAN VALLE [address] [facility] [place] [facility] [place] [address] 04/02/2023 12:55:29 04/05/2023 13:42:55 Vaginitis Urinary symptoms Health Concerns Section Related Observation LastModified by Organization Detai ls LastModified Time None Recorded Concern Status LastModified by Organization Details LastModified Time None Recorded Payers Encounter Date Sequence Insurance Name Policy Number Policy Silva Covered Member ID Silva Member ID Guarantor Name 04/02/2023 1 [facility] - [facility] [id number] Shirley Rivas [id number] Henny Rivas Notes Date Note Type Note [...] ending her period today. MAURISIO FRAIRE PA-C [id number] [facility], [place], [address], [place] [facility] [employer] 04/02/2023 17:15:44 OBGyn Episode No OBEpisode recorded.
--- OUTSIDE RECORDS SUMMARY | 2023-04-25 08:14 | XMS_ITS | Continuity of Care Document ---
Author Name Unknown Address [address] [place] [address] Phone [phone] Organization [facility] [employer], [id number] Address [address] [place] [phone] Care Team Providers Care Manager Creative Services Name Role Phone TEENA LO Digital Media Designer NORMA MCNULTY Primary Care Provider Assessment No assessment recorded. Plan of Treatment Reminders Order Date Submit Date Provider Last Modified By Organization Details Last Modified Time Details Appointments None recorded. Lab urinalysis, dipstick, auto 2022 023 apetersen 35 [id number]_wjtlona rtners_ziona le, [address] [facility], [place] [address], [place], [address], 3 13:45:18 bacterial vaginosis + vaginitis panel, vaginal 2022 023 BELTRAN [id number]_xoijjgt rtners_ziona le, [address] [place] [address], [address] [place] [address], [address], 3 14:41:00 Referral None recorded. Procedures None recorded. Surgeries None recorded. Imaging None recorded. Medication Orders clindamycin HCl 300 mg capsule 2022 023 adzihic [facility], [address] [place] [address], [place], [address], 4 13:07:00 Metrogel Vaginal 0.75 % (37.5 mg/5 gram) 2022 023 adzihic [facility], [address], [place], [address], 13:07:10 Patient TargetsNo targets recorded. Patient Instructions Encounter Date Encounter Id Patient Instructions Last Modified By Organization Details Last Modified Time 02/12/2023 [id number] Sent BDAffirm. Notified pt swab is positive for BV and sent script. Plan to treat and then can try MetroGel 1-2x/wk maintenance to prevent reoccurance. Cotton underware only. Do no wear underware at night. Avoid feminine wipes, douches, pantyliner use. Change clothes immediately after exercising. All questions answered. [email or web address] Not available 02/12/2023 15:04:28 Reason for Referral Maternal & Medicine Re ferral for consult- ECHOGENIC AREA HEART NOTED AT [facility] Referring Physician: Teena Lo, [employer], Encounter Date: 04/09/2020 Results Created Date Observation Date Name Description Value Unit Range Abnormal Flag LastModifiedBy Organization Detail LastModifiedTime 02/13/2002/12/2023 bacte rial vagin osis + vagin itis panel , vagin al gardnerella positi ve negati ve abnormal Not Available [id number] arnoldo[address], [address], 02/12/2023 11:30:51 02/13/20 23 02/12/2023 bacte rial vagin osis + vagin itis panel , vagin al trichomonas negati ve negati ve normal Not Available [id number] [address], [address], 02/12/2023 11:30:51 02/13/20 23 02/12/2023 bacte rial vagin osis + vagin itis panel , vagin al avery negati ve negati ve normal Not Available [id number] shai [address], [place], [address], 02/12/2023 11:30:51 02/13/20 23 02/12/2023 urina lysis , dipst ick, auto Unknown Analyte Clean Catch Not Available [id number] shai [address], [place], [address], 02/12/2023 11:30:42 02/13/20 23 02/12/2023 urina lysis , dipst ick, auto Unknown Analyte negati ve Not Available [id number] shai [address], [place], [address], 02/12/2023 11:30:42 02/13/20 23 02/12/2023 urina lysis , dipst ick, auto Unknown Analyte negati ve Not Available [id number]_dukxomu shai [address], [place], [address], 02/12/2023 11:30:42 02/13/20 23 02/12/2023 urina lysis , dipst ick, auto Unknown Analyte negati ve Not Available [id number]_tipugfe shai [address], [place], [address], 02/12/2023 11:30:42 02/13/20 23 02/12/2023 urina lysis , dipst ick, auto Unknown Analyte 1.020 Not Available [id number]_nefkz debra shai [address], [place], [address], 02/12/2023 11:30:42 02/13/20 23 02/12/2023 urina lysis , dipst ick, auto Unknown Analyte negati ve Not Available [id number]_htumlku shai [address], [place], [address], 02/12/2023 11:30:42 02/13/20 23 02/12/2023 urina lysis , dipst ick, auto Unknown Analyte 7.5 Not Available Gp852_karub debra rtmanuel [address], [place], [address], 02/12/2023 11:30:42 02/13/20 23 02/12/2023 urina lysis , dipst ick, auto Unknown Analyte negati ve Not Available [id number]_orrrqmzmonique gibbons [address], [place], [address], 02/12/2023 11:30:42 02/13/20 23 02/12/2023 urina lysis , dipst ick, auto Unknown Analyte negati ve Not Available [id number]_ybipouvmonique gibbons [address], [place], [address], 02/12/2023 11:30:42 02/13/20 23 02/12/2023 urina lysis , dipst ick, auto Unknown Analyte negati ve Not Available [id number]_vylfohgmonique gibbons [address], [place], [address], 02/12/2023 11:30:42 02/13/20 23 02/12/2023 urina lysis , dipst ick, auto Unknown Analyte dark yellow Not Available [id number]_qczlgnx shai [address], [place], [address], 02/12/2023 11:30:42 02/13/20 23 02/12/2023 urina lysis , dipst ick, auto Unknown Analyte slight ly cloudy Not Available [id number]_pzqqhao rtners_fartun le [address] [facility] [address], [place], [address], 02/12/2023 11:30:42 Result Notes None recorded. Problems Name Status Onset Date Resolution Date Notes Provider Name and Address Organization Details Recorded Time History of section Active 07/30/19 21 Blake Bustos null, [place] - [facility] 07/29/2020 17:15:34 Multigravida of advanced maternal age Active 07/30/19 21 PaNhiag Bustos null, [place] [facility] 07/29/2020 17:15:41 Vitamin D deficiency Active Not Available [facility] 10/12/2019 05:10:31 Problem Notes None recorded. Procedures Surgical History Date Name Laterality Status Provider Name and Address Organization Details Recorded Time 3 Date of Last Mammogram completed Olga Dow (TERMED) null, [place] [facility] 07/01/2022 15:05:23 2 Date of Last Pap Smear completed Raegan Zamudiosalmamarlon null, [place] - [facility] 01/26/2023 12:30:03 8 section completed Not Available [facility] 10/12/2019 05:09:17 Imaging Results None [...] Updated DateTime 3 167.64 cm 35.1 kg/m2 60468.7 g 63 /min 114 mm[Hg] 75 mm[Hg] Raegan [facility] 3 13:26:28 Social History Question Answer Notes [...] Blood Transfusion Acceptable In An Emergency? Yes [email or web address] Information not available 01/26/2022 What Is Your Level Of Caffeine Consumption? None Information not available 02/01/2023 Are You Currently Employed? Yes Information not available 01/26/2022 What Type Of Diet Are You Following? GLUTENFREE No Sugar And Dairy Information not available 02/01/2023 What Is The Highest Grade Or Level Of School You Have Completed Or The Highest Degree You Have Received? 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 Less Than 1 Time Per Week Information not available 02/01/2023 History Of Domestic Violence No Denies Any History Of Domestic Violence Information not available 10/16/2019 Spouse/Partners Name Sekou Rivas Information not available 02/01/2023 Ethnic Background White Or [email or web address] Information not available 01/26/2022 Are You Passively Exposed To Smoke? No Information not available 02/01/2023 Performs Monthly Self-breast Exam? No Does Not Perform Monthly Breast Exams Information not available 01/21/2021 What Is Your Relationship Status? [email or web address] Information not available 01/26/2022 Are You Sexually Active? Yes Currently Sexually Active Information not available 01/21/2021 Do You Use Any Illicit Or Recreational Drugs? No Information not available 02/01/2023 Has Tobacco Cessation Counseling Been Provided? Yes Information not available 02/01/2023 On What Date Was Tobacco Cessation Counseling Provided? 02/01/2023 Information not available 02/01/2023 Are You Currently In School? No [email or web address] Information not available 01/26/2022 Sex: Female Functional [...] Recorded Time Tdap 07/23/2020 completed [facility] 07/23/2020 15:22:22 Tdap 11/22/2017 completed Not Available [facility] 05:09:39 Tdap 01/15/2014 completed Not Available [facility] 05:09:39 influenza, injectable, quadrivalent, preservative free 11/22/2017 completed [facility]on [facility] 01/21/2021 11:39:02 Past Encounters Encounter ID Performer Location Encounter Start Date Encounter Closed Date Diagnosis/Indication [id number] MAURISIO FRAIRE PA-C [id number] VALLE [address] [facility] [place] [facility] [place] [address] 02/01/2023 09:42:59 02/01/2023 13:58:01 Screening for malignant neoplasm of cervix Diabetes mellitus screening Hyperlipidemia screening Gynecologic examination Anemia screening Vaginal irritation Obesity Female hirsutism [id number] MAURISIO FRAIRE PA-C [id number] VALLE [address] [place] [address],[facility] [address] [place] [address] 02/12/2023 13:16:17 02/12/2023 15:10:47 Vaginitis Health Concerns Section Related Observation LastModified by Organization Detai ls LastModified Time None Recorded Concern Status LastModified by Organization Details LastModified Time None Recorded Payers Encounter Date Sequence Insurance Name Policy Number Policy Silva Covered Member ID Silva Member ID Guarantor Name 02/12/2023 1 [facility] [employer] - [facility] [id number] Shirley Rivas [id number] Henny Rivas Notes Date Note Type Note [...] dysuria, frequency, urgency, odor. MAURISIO FRAIRE PA-C [id number] [facility],[address], [place], [address], [place] - [facility] 02/12/2023 15:04:54 OBGyn Episode No OBEpisode recorded.
--- OUTSIDE RECORDS SUMMARY | 2023-04-25 08:14 | XMS_ITS | Clinical Summary ---
Author Name Unknown Organization [facility] Address [place], [place] [address] Care Team Providers Care Home Extension Agent Name Role Phone Tone Mcqueen Unavailable [phone] Pcp, No Primary Care Provider Unavailabl e Allergies No known active allergies Medications Medication Sig Dispensed Refills Start Date End Date Status budesonide (RHINOCORT ALLERGY) (32 mcg each actuation) nasal spray Inhale 1 [place] into both nostrils once daily. 0 02/13/2020 [...] RT,BB Catie Mtz MD Delivery Location:Hospital ( [facility] [address]) Last Filed [...] 7:50 AM Pos t section Care Teams Home Extension Agent Relationship Specialty Start Date End Date Pcp, No . PCP - General 12/24/21 Tone Mcqueen MBBS [address] [facility] [address] [place] [address] Consulting Physician Cardiology - Interventional 03/21/20
--- OUTSIDE RECORDS SUMMARY | 2023-04-25 08:14 | XMS_ITS | Continuity of Care Document ---
Author Name Unknown Address [address] [place] [address] Phone [phone] Organization [facility] [employer], [id number] Address [address] [facility] [address] [place] [address] Care Team Providers Care Camera Engineer Name Role Phone TEENA LO Swimming Professor NORMA MCNULTY Primary Care Provider [phone] Assessment No assessment recorded. Plan of Treatment Reminders Order Date Submit Date Provider Last Modified By Organization Details Last Modified Time Details Appointments None recorded. Lab lipid panel, serum 2022 023 [facility], [address] [facility], [address], [place], [address], 3 15:49:12 bacterial vaginosis + vaginitis panel, vaginal 2022 023 apetersen 35 [id number] rtners_ziona le, [address] [facility], [address], [place], [address], 3 13:01:20 hemoglobin A1c, QN, blood 2022 023 [facility], [address] [facility], [address], [place], [address], 3 15:49:11 CBC 2022 023 [facility], [address] [facility], [address], [place], [address], 3 15:49:09 Pap test, slide(s), cervical 2022 023 [facility], [address] [place] [address], [address], [place], [address], 3 16:08:46 Referral None recorded. Procedures None recorded. Surgeries None recorded. Imaging None recorded. Medication Orders spironolact one 50 mg tablet 2022 023 [facility], [address] [facility], [place], [address], 3 10:56:44 Metrogel Vaginal 0.75 % (37.5 mg/5 gram) 2022 023 [facility] [address] [facility], [place], [address], 4 13:10:07 Patient TargetsNo targets recorded. Patient Instructions Encounter Date Encounter Id Patient Instructions Last Modified By Organization Details Last Modified Time 02/01/2023 [id number] venous blood draw* [email or web address] Not avai lable 02/01/2023 10:56:02 RTC in [...] cervical or colon cancers. All questions answered. [email or web address] Not available 02/01/2023 13:10:01 Reason for Referral Maternal & Medicine Re ferral for consult- ECHOGENIC AREA HEART NOTED AT [facility] Referring Physician: Teena Lo, [employer], Encounter Date: 04/09/2020 Results Created Date Observation Date Name Description Value Unit Range Abnormal Flag LastModifiedBy Organization Detail LastModifiedTime 02/02/20 23 02/01/2023 bacte rial vagin osis + vagin itis panel , vagin al gardnerella positi ve negati ve abnormal Not Available [id number]_vsdmsdrmonique villafana[address], [place], [address], 02/01/2023 10:04:04 02/02/20 23 02/01/2023 bacte rial vagin osis + vagin itis panel , vagin al trichomonas negati ve negati ve normal Not Available [id number] arnoldo[address], [place], [address], 02/01/2023 10:04:04 02/02/20 23 02/01/2023 bacte rial vagin osis + vagin itis panel , vagin al avery negati ve negati ve normal Not Available [id number] [address], [place], [address], 02/01/2023 10:04:04 Result Notes None recorded. Problems Name Status Onset Date Resolution Date Notes Provider Name and Address Organization Details Recorded Time History of section Active 07/30/19 21 Blake cunningham [place] - [facility] [employer] 07/29/2020 17:15:34 Multigravida of advanced maternal age Active 07/30/19 21 Blake cunningham [place] - [facility] [employer] 07/29/2020 17:15:41 Vitamin D deficiency Active Not Available [facility] 10/12[facility] 05:10:31 Problem Notes None recorded. Procedures Surgical History Date Name Laterality Status Provider Name and Address Organization Details Recorded Time 3 Date of Last Mammogram completed Olga Dow (OLIVE) null [place] - [facility] [employer] 07/01/2022 15:05:23 2 Date of Last Pap Smear completed Arnela Dzihic null, [place] - [facility] [employer] 01/26/2023 12:30:03 8 section completed Not Available [facility] 10/12/2019 05:09:17 Imaging Results None recorded. [...] Updated DateTime 3 167.64 cm 34.9 kg/m2 41047.6 7 g 64 /min 118 mm[Hg] 82 mm[Hg] [facility] [place] - [employer] 3 09:58:03 Social History Question Answer Notes [...] Blood Transfusion Acceptable In An Emergency? Yes [email or web address] Information not available 01/26/2022 What Is Your Level Of Caffeine Consumption? None Information not available 02/01/2023 Are You Currently Employed? Yes [email or web address] Information not available 01/26/2022 What Type Of Diet Are You Following? GLUTENFREE No Sugar And Dairy Information not available 02/01/2023 What Is The Highest Grade Or Level Of School You Have Completed Or The Highest Degree You Have Received? 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 Less Than 1 Time Per Week Information not available 02/01/2023 History Of Domestic Violence No Denies Any History Of Domestic Violence Information not available 10/16/2019 Spouse/Partners Name Sekou Rivas Information not available 02/01/2023 Ethnic Background White Or [email or web address] Information not available 01/26/2022 Are You Passively Exposed To Smoke? No Information not available 02/01/2023 Performs Monthly Self-breast Exam? No Does Not Perform Monthly Breast Exams Information not available 01/21/2021 What Is Your Relationship Status? [email or web address] Information not available 01/26/2022 Are You Sexually Active? Yes Currently Sexually Active Information not available 01/21/2021 Do You Use Any Illicit Or Recreational Drugs? No Information not available 02/01/2023 Has Tobacco Cessation Counseling Been Provided? Yes Information not available 02/01/2023 On What Date Was Tobacco Cessation Counseling Provided? 02/01/2023 Information not available 02/01/2023 Are You Currently In School? No [email or web address] Information not available 01/26/2022 Sex: Female Functional [...] Time Tdap 07/23/2020 completed [facility] Duque [facility] [employer] 07/23/2020 15:22:22 Tdap 11/22/2017 completed Not Available [facility] 05:09:39 Tdap 01/15/2014 completed Not Available [facility] 05:09:39 influenza, injectable, quadrivalent, preservative free 11/22/2017 completed [facility] Britton [facility] [employer] 01/21/2021 11:39:02 Past Encounters Encounter ID Performer Location Encounter Start Date Encounter Closed Date Diagnosis/Indication [id number] MAURISIO FRAIRE PA-C [id number] ARTARNOLDO_JOAN VALLE [address] [place] [address],[address] [place] [id number] 02/01/2023 09:42:59 02/01/2023 13:58:01 Screening for malignant [...] Silva Member ID Guarantor Name 02/01/2023 1 [facility]ED [facility] - [facility] [id number] Shirley Rivas [id number] Henny Rivas Notes Date Note Type Note Provider Name and Address Organization Details Recorded Time 02/01/2023 text/html HPI Notes: Annua l Premenopausal ([facility]) Reported by patient. Patient Relationship [...] a vaginal infection today. MAURISIO FRAIRE PA-C [address] [facility],[address], [place], [address], [place] - [facility] [employer] 02/01/2023 13:11:28 OBGyn Episode No OBEpisode recorded.
== END 2023-04-23 11:36 | disposition home or self-care (01) ==
LOC: NFLDREF 11:35
PROVIDERS: PCP Family Medicine; Visit Provider Physician Assistant
DX: R39.9 Unspecified symptoms and signs involving the genitourinary system (principal)
CPT/HCPCS: 87086

== ENCOUNTER 2023-05-25 16:19 | Outpatient (CLI) | payer OTHER, SELFPAY ==
[2023-05-25 21:58] LABS: Bacterial Vaginosis* Negative (Negative); Candida glab/krus NOT DETECTED (No Detected); Candida species DETECTED (No Detected); Trichomonas vaginalis NOT DETECTED (No Detected)
== END 2023-05-25 16:20 | disposition home or self-care (01) ==
PROVIDERS: PCP Family Medicine; Visit Provider Registered Nurse
DX: R10.2 Pelvic and perineal pain (principal); R30.0 Dysuria; N89.8 Other specified noninflammatory disorders of vagina
CPT/HCPCS: 81513; 87086; 87109; 87481; 87661

== ENCOUNTER 2023-06-04 14:02 | Outpatient (CLI) | payer OTHER, SELFPAY ==
[2023-06-04 19:50] LABS: Bacterial Vaginosis* Negative (Negative); Candida glab/krus NOT DETECTED (No Detected); Candida species NOT DETECTED (No Detected); Trichomonas vaginalis NOT DETECTED (No Detected)
== END 2023-06-04 14:03 | disposition home or self-care (01) ==
LOC: NFLDREF 14:02
PROVIDERS: PCP Family Medicine; Visit Provider Registered Nurse
DX: N76.0 Acute vaginitis (principal); B96.89 Other specified bacterial agents as the cause of diseases classified elsewhere
CPT/HCPCS: 81513; 87481; 87661

== ENCOUNTER 2023-07-19 12:23 | Outpatient (CLI) | payer OTHER, SELFPAY ==
--- OUTSIDE RECORDS SUMMARY | 2023-07-19 12:24 | XMS_ITS | Encounter Summary ---
Author Name Unknown Organization [facility] Address [address] [place] [address] Care Team Providers Care Application Programmer Analyst Name Role Phone Unavailable Primary Care Provider Unavailabl e Encounter Details Date Type Department Care Team ([facility] st Contact Info) Description 06/28/2023 11:10 AM CDT Lab Visit [facility] [address] [place] [address] Fatigue, unspecified type Social History Tobacco Use Types Packs/Day Years Used Date Smoking Tobacco: Never Assessed Sex and Gender Information Value Date Recorded Sex Assigned at Not on file Gender Identity Not on file Sexual Orientation Not on file documented as of this encounter Plan of Treatment Not on file documented as of this encounter Procedures Procedure Name Priority Date/Time Associated Diagnosis Comments CBC AND DIFFERENTIAL PANEL STAT 06/28/2023 11:01 AM CDT Fatigue, unspecified type COMPLETE BLOOD COUNT-W/DIFF STAT 06/28/2023 11:01 AM CDT Fatigue, unspecified type COMPREHENSIVE METABOLIC PANEL STAT 06/28/2023 11:01 AM CDT Fatigue, unspecified type TSH, SENSITIVE Routine 06/28/2023 11:01 AM CDT Fatigue, unspecified type documented in this encounter Results * Complete Blood Count-W/Diff (06/28/2023 11:01 AM CDT) WBC 6.1 3.5 - 10.5 x10(9)/L 06/28/2023 11:09 AM [facility] RBC 4.91 3.90 - 5.03 x10(12)/L 06/28/2023 11:09 AM [facility] Hemoglobin 13.9 12.0 - 15.5 g/dL 06/28/2023 11:09 AM [facility] HCT 41.9 34.9 - 44.5 % 06/28/2023 11:09 AM [facility] MCV 85.3 80.0 - 100.0 fL 06/28/2023 11:09 AM [facility] MCH 28.3 27.6 - 33.3 pg 06/28/2023 11:09 AM [facility] MCHC 33.2 31.5 - 35.2 g/dL 06/28/2023 11:09 AM [facility] RDW 13.0 11.9 - 15.5 % 06/28/2023 11:09 AM [facility] Platelets 276 150 - 450 x10(9)/L 06/28/2023 11:09 AM [facility] Neutrophil Absolute 3.7 1.7 - 7.0 10(9)/L 06/28/2023 11:09 AM [facility] Lymphocyte Absolute 1.8 1.0 - 4.8 10(9)/L 06/28/2023 11:09 AM [facility] Monocyte Absolute 0.4 0.2 - 0.9 10(9)/L 06/28/2023 11:09 AM [facility] Eosinophil Absolute 0.1 0.0 - 0.5 10(9)/L 06/28/2023 11:09 AM [facility] Basophil Absolute 0.0 0.0 - 0.3 10(9)/L 06/28/2023 11:09 AM [facility] Immature Granulocyte % 0.5 0.0 - 0.5 % 06/28/2023 11:09 AM [facility] Blood Venipuncture / Unknown 06/28/2023 11:01 AM CDT 06/28/2023 11:01 AM CDT Porsche Fair MD LAB_1 [facility] [address] [place] [address], [facility] * TSH (06/28/2023 11:01 AM CDT) Pathologist [facility] TSH, Sensitive 0.96 0.30 - 4.50 uIU/mL 06/28/2023 5:44 PM CDT [facility] Blood Venipuncture / Unknown 06/28/2023 11:01 AM CDT 06/28/2023 11:01 AM CDT Porsche Fair MD LAB_1 Performing Organization Address City/[facility]/ZIP Co de Phone Number [facility] [address] [place], [place] [id number] [place] [address] * Comp Metabolic Panel (06/28/2023 11:01 AM CDT) Pathologist [facility] Sodium 140 136 - 145 mmol/L 06/28/2023 2:52 PM [facility] Potassium 4.3 3.5 - 5.1 mmol/L 06/28/2023 2:52 PM [facility] Chloride 105 98 - 109 mmol/L 06/28/2023 2:52 PM [facility] CO2 24 20 - 29 mmol/L 06/28/2023 2:52 PM [facility] Anion Gap 11 7 - 16 mmol/L 06/28/2023 2:52 PM [facility] Calcium 9.7 8.4 - 10.4 mg/dL 06/28/2023 2:52 PM [facility] BUN 10 7 - 26 mg/dL 06/28/2023 2:52 PM [facility] Creatinine 0.88 0.55 - 1.02 mg/dL 06/28/2023 2:52 PM [facility] Alkaline Phosphatase 71 40 - 150 U/L 06/28/2023 2:52 PM [facility] AST (SGOT) 13 10 - 40 U/L 06/28/2023 2:52 PM [facility] ALT (SGPT) <10 <=55 U/L 06/28/2023 2:52 PM [facility] Bilirubin, Total 0.6 0.2 - 1.2 mg/dL 06/28/2023 2:52 PM [facility] Protein, Total 7.0 6.4 - 8.3 g/dL 06/28/2023 2:52 PM [facility] Albumin 4.0 3.5 - 5.0 g/dL 06/28/2023 2:52 PM [facility] Glucose 88 70 - 100 mg/dL 06/28/2023 2:52 PM [facility] Comment:The given reference range is for the fasting state. Non-fasting reference range for glucose is 70 - 180 mg/dL. GFR, Estimated >60 >60 mL/min/1.7 3m2 06/28/2023 2:52 PM [facility] Hours Fasting 0.0 8 - 12 Hours 06/28/2023 2:52 PM [facility] Blood Venipuncture / Unknown 06/28/2023 11:01 AM CDT 06/28/2023 11:01 AM T Porsche Fair MD LAB_1 [facility] [address] [place] [address] documented in this encounter Visit Diagnoses Diagnosis Fatigue, unspecified type documented in this encounter
--- OUTSIDE RECORDS SUMMARY | 2023-07-19 12:24 | XMS_ITS | Clinical Summary ---
Author Name Unknown Organization [facility] Address [address] [place] [address] Care Team Providers Care Metal Buildings Assembler Name Role Phone Unavailable Primary Care Provider Unavailabl e Source Comments You are receiving this document as you are listed as the primary care provider,follow-up provider, or the patient has been referred to you for consultation.This is in compliance with the Medicare and[facility] EHR Incentive Program,which states Providers who transition their patient to another setting of careor provider of care or refers their patient to another provider of care shouldprovide summary care record for each transition of care or referral. [facility] Allergies No known active allergies Medications Medication Sig Dispensed Refills Start Date End Date Status gabapentin (NEURONTIN) 300 MG capsule Take 1 Capsule (300 mg) by mouth three times a day. 04/05/2023 Active fluconazole (DIFLUCAN) 150 MG tablet Take 1 Tablet (150 mg) by mouth every 72 hours. 04/16/2023 Active spironolactone (ALDACTONE) 50 MG tablet Take 1 Tablet (50 mg) by mouth daily. 04/05/2023 Active hydrOXYzine HCl (ATARAX) 25 MG tablet Take 1 Tablet (25 mg) by mouth two times daily as needed. 02/17/2023 Active esomeprazole (NEXIUM) 40 MG capsule Take 1 Capsule (40 mg) by mouth two times a day. 04/07/2023 Active ALPRAZolam (XANAX) 0.5 MG tablet Take 1 Tablet (0.5 mg) by mouth two times daily as needed. 03/16/2023 Active metroNIDAZOLE (METROGEL-VAGINAL) 0.75 % vaginal gel Insert vaginally daily at bedtime. 04/02/2023 Active estradiol 10 MCG TABS vaginal tablet Insert vaginally. 06/26/2023 Act kassie Encounters Date Type Department Care Team Description 06/28/2023 11:10 AM CDT Lab Visit [facility] [address] [place] [phone] Fatigue, unspecified type 06/28/2023 10:40 AM CDT Office Visit [facility] [address] [facility] [address] [place] [phone] Porsche Fair MD Fatigue, unspecified type; H/O gastroesophageal reflux (GERD); Family history of neurological disease 05/07/2023 1:00 PM SPINNING MULE TENDER Office Visit [facility] [address] [facility] [address] [place] [phone] Jaquelin Garcia MD Vaginal discomfort; Rectal fissure; Chronic sinusitis, unspecified location from Last 3 Months Social History Tobacco Use Types Packs/Day Years Used Date Smoking Tobacco: Never Assessed Sex and Gender Information Value Date Recorded Sex Assigned at Not on file Gender Identity Not on file Sexual Orientation Not on file Last Filed Vital Signs Vital Sign Reading Time Taken Comments Blood Pressure 112/82 06/28/2023 10:13 AM CDT Pulse 76 06/28/2023 10:13 AM CDT Temperature 36.4 ??C (97.6 ??F) 06/28/2023 10:13 AM C DT Respiratory Rate 15 06/28/2023 10:13 AM CDT Oxygen Saturation 100% 06/28/2023 10:13 AM CDT Inhaled Oxygen Concentration - - Weight - - Height - - Body Mass Index - - Plan of Treatment Health Maintenance Due Date Last Done Comments Cervical Cancer Screening Due 1980 Hep C Screening (Preventive Services) 1980 HIV Screening (Preventive Services) 1997 Adult Preventive Visit 09/04/1999 HepB (1) 2000 HPV Vaccine (2 - 3-dose series) 02/06/2008 01/09/2008 COVID-19 Vaccine ( season) 2022 04/02/2022, 02/26/2021, 06/27/2020, Additional history exists DTaP/Tdap/Td (5 - Tdap) 07/23/2030 07/24/19 21, 11/22/2017, 01/15/2014, Additional history exists Zoster/Shingles (1 of 2) 09/04/2031 Influenza Completed 12/25/2022, 12/06, 02/19/2021, Additional history exists HepA Aged Out No longer eligi ble based on patient's age to complete this topic Hib Aged Out No longer eligi ble based on patient's age to complete this topic IPV (Polio) Aged Out No longer eligi ble based on patient's age to complete this topic MCV4 Aged Out No longer eligi ble based on patient's age to complete this topic Pneumococcal Aged Out No longer eligi ble based on patient's age to complete this topic Procedures Procedure Name Priority Date/Time Associated Diagnosis Comments COMPLETE BLOOD COUNT-W/DIFF STAT 06/28/2023 11:01 AM CDT Fatigue, unspecified type CBC AND DIFFERENTIAL PANEL STAT 06/28/2023 11:01 AM CDT Fatigue, unspecified type TSH, SENSITIVE Routine 06/28/2023 11:01 AM CDT Fatigue, unspecified type COMPREHENSIVE METABOLIC PANEL STAT 06/28/2023 11:01 AM CDT Fatigue, unspecified type VAGINITIS PANEL Routine 05/07/2023 1:17 PM SPINNING MULE TENDER Vaginal discomfort from Last 3 Months Results * Complete Blood Count-W/Diff (06/28/2023 11:01 AM CDT) WBC 6.1 3.5 - 10.5 x10(9)/L 06/28/2023 11:09 AM CDT [facility] RBC 4.91 3.90 - 5.03 x10(12)/L 06/28/2023 11:09 AM CDT [facility] Hemoglobin 13.9 12.0 - 15.5 g/dL 06/28/2023 11:09 AM CDT [facility] HCT 41.9 34.9 - 44.5 % 06/28/2023 11:09 AM [facility] MCV 85.3 80.0 - 100.0 fL 06/28/2023 11:09 AM [facility] MCH 28.3 27.6 - 33.3 pg 06/28/2023 11:09 AM [facility] MCHC 33.2 31.5 - 35.2 g/dL 06/28/2023 11:09 AM [facility] RDW 13.0 11.9 - 15.5 % 06/28/2023 11:09 AM [facility] Platelets 276 150 - 450 x10(9)/L 06/28/2023 11:09 AM [facility] Neutrophil Absolute 3.7 1.7 - 7.0 10(9)/L 06/28/2023 11:09 AM [facility] Lymphocyte Absolute 1.8 1.0 - 4.8 10(9)/L 06/28/2023 11:09 AM [facility] Monocyte Absolute 0.4 0.2 - 0.9 10(9)/L 06/28/2023 11:09 AM [facility] Eosinophil Absolute 0.1 0.0 - 0.5 10(9)/L 06/28/2023 11:09 AM [facility] Basophil Absolute 0.0 0.0 - 0.3 10(9)/L 06/28/2023 11:09 AM [facility] Immature Granulocyte % 0.5 0.0 - 0.5 % 06/28/2023 11:09 AM [facility] Blood Venipuncture / Unknown 06/28/2023 11:01 AM CDT 06/28/2023 11:01 AM CDT Porsche Fair MD LAB_1 [facility] [address] [place] [phone], [facility] * Comp Metabolic Panel (06/28/2023 11:01 AM CDT) Sodium 140 136 - 145 mmol/L 06/28/2023 2:[address] [facility] Potassium 4.3 3.5 - 5.1 mmol/L 06/28/2023 2:[address] [facility] Chloride 105 98 - 109 mmol/L 06/28/2023 2:[address] [facility] CO2 24 20 - 29 mmol/L 06/28/2023 2:[address] [facility] Anion Gap 11 7 - 16 mmol/L 06/28/2023 2:[address] [facility] Calcium 9.7 8.4 - 10.4 mg/dL 06/28/2023 2:[address] [facility] BUN 10 7 - 26 mg/dL 06/28/2023 2:[address] [facility] Creatinine 0.88 0.55 - 1.02 mg/dL 06/28/2023 2:[address] [facility] Alkaline Phosphatase 71 40 - 150 U/L 06/28/2023 2:[address] [facility] AST (SGOT) 13 10 - 40 U/L 06/28/2023 2:[address] [facility] ALT (SGPT) <10 <=55 U/L 06/28/2023 2:[address] [facility] Bilirubin, Total 0.6 0.2 - 1.2 mg/dL 06/28/2023 2:[address] [facility] Protein, Total 7.0 6.4 - 8.3 g/dL 06/28/2023 2:[address] [facility] Albumin 4.0 3.5 - 5.0 g/dL 06/28/2023 2:[address] [facility] Glucose 88 70 - 100 mg/dL 06/28/2023 2:[address] [facility] Comment:The given reference range is for the fasting state. Non-fasting reference range for glucose is 70 - 180 mg/dL. GFR, Estimated >60 >60 mL/min/1.7 3m2 06/28/2023 2:[address] [facility] Hours Fasting 0.0 8 - 12 Hours 06/28/2023 2:[address] [facility] Blood Venipuncture / Unknown 06/28/2023 11:01 AM CDT 06/28/2023 11:01 AM CDT Porsche Fair MD LAB_1 [facility] [address] [place] [phone] * TSH (06/28/2023 11:01 AM CDT) TSH, Sensitive 0.96 0.30 - 4.50 uIU/mL 06/28/2023 5:44 PM CDT [facility] Blood Venipuncture / Unknown 06/28/2023 11:01 AM CDT 06/28/2023 11:01 AM CDT Porsche Fair MD LAB_1 Performing Organization Address [facility] Co de Phone Number [facility] [address] * Vaginitis Panel (Includes Bacterial Vaginosis, Vandana Species, Vandana Glabrata and Trichomonas Vaginalis.) (05/07/2023 1:17 PM SPINNING MULE TENDER) Pathologist [facility] Bacterial Vaginosis Negative Negative 05/08/2023 3:17 PM SPINNING MULE TENDER [facility] Vandana species Negative Negative 3:17 PM SPINNING MULE TENDER [facility] Vandana glabrata Negative Negative 05/08/2023 3:17 PM SPINNING MULE TENDER [facility] Trichomonas vaginalis Negative Negative 05/08/2023 3:17 PM SPINNING MULE TENDER [facility] Swab STD SPECIMEN FROM VAGINA / Unknown Non-blood Collection / Unknown 05/07/2023 1:17 PM SPINNING MULE TENDER 05/07/2023 1:18 PM SPINNING MULE TENDER Narrative [facility] - 05/08/2023 3:17 PM SPINNING MULE TENDER Test performed by Energy Attorney Mediated Amplification (TMA). Jaquelin Garcia MD LAB_1 [facility] [id number] [place] [address] from Last 3 Months
--- OUTSIDE RECORDS SUMMARY | 2023-07-19 12:25 | XMS_ITS | Encounter Summary ---
Author Name Unknown Organization [facility] Address [address], [place] [address] Care Team Providers Care Box Repairer Name Role Phone Unavailable Primary Care Provider Unavailabl e Reason for Visit * Reason Comments PAIN, SINUS RECTAL PAIN Encounter Details Date Type Department Care Team (Late st Contact Info) Description 05/07/2023 1:00 PM GROCERY CLERK CHECKING Office Visit [facility] [address] [facility] [id number] [place] [phone] Jaquelin Garcia MD [address] [place], [place] [id number] Vaginal discomfort; Rectal fissure; Chronic sinusitis, unspecified location Social History Tobacco Use Types Packs/Day Years Used Date Smoking Tobacco: Never Assessed Sex and Gender Information Value Date Recorded Sex Assigned at Not on file Gender Identity Not on file Sexual Orientation Not on file documented as of this encounter Last Filed Vital Signs Vital Sign Reading Time Taken Comments Blood Pressure 122/86 05/07/2023 12:54 PM GROCERY CLERK CHECKING Pulse 79 05/07/2023 12:54 PM GROCERY CLERK CHECKING Temperature 36.6 ??C (97.8 ??F) 05/07/2023 12:[address] Respiratory Rate 16 05/07/2023 12:54 PM GROCERY CLERK CHECKING Oxygen Saturation 100% 05/07/2023 12:54 PM GROCERY CLERK CHECKING Inhaled Oxygen Concentration - - Weight - - Height - - Body Mass Index - - documented in this encounter Patient Instructions * Patient Instructions* Jaquelin Garcia MD - 05/07/2023 1:00 PM GROCERY CLERK CHECKING Warm soaks will help with rectal pain Keep stools soft with miralax or colace if necessary Lots of fluids, high fiber diet Continue current allergy management and follow up as scheduled with the excel expert ERY CLERK CHECKING * Attachments The following attachments cannot be sent through Care Everywhere. * Chronic sinusitis (Citizen [place]) * Anal Fissure (Citizen [place]) documented in this encounter Progress Notes * Jaquelin Garcia MD - 05/07/2023 1:00 PM CST [facility] Patient: Henny Rivas Date of : 1980 (42 y.o.) Subjective Chief Complaint: Chief Complaint Patient presents with PAIN, SINUS RECTAL PAIN Nursing Notes: Daren Lucas Alejandra 05/07/23 1256 Signed Henny Rivas is a 42 y.o.male presents to the Urgent Care for sinus pressure and rectal pain. Pt presents with 1 week of sinus pain and pressure. Pt has been using nasal spray and dong sinus rinses. Pain has become worse today. Pt also having pain by her rectum. Pt reporting she does have a lump in the area. Patient requests an excuse letter for work/school: No History of Present Illness: Henny Rivas is a 42 y.o.male. Patient complains of symptoms of a URI. Onset of symptoms was 1 weeks ago. Symptoms include sinus pain and pressure without much rhinorrhea or post nasal drainage. Upper teeth hurt. Patient denies: fever and cough . gradually worsening since that time. Lump in the rectal area noticed yesterday but has been having burning and pain in the area for a while. Follow up testing for BV was negative. She feels that her lady parts have had burning pain aswell. Adverse Drug Reactions: Patient has no known allergies. Medications: ALPRAZolam, esomeprazole, fluconazole, gabapentin, hydrOXYzine HCl, hydrocortisone, metroNIDAZOLE, predniSONE, and spironolactone Social History: Social History Tobacco Use Smoking status: Not on file Smokeless tobacco: Not on file Substance Use Topics Alcohol use: Not on file Drug use: Not on file Review of Systems: Review of Systems is negative except as noted above. Objective Physical Exam: Vital Signs: BP 122/86 (BP Location: Right Arm, BP Cuff Size: Regular - Long) Pulse 79 Temp 36.6 ??C (97.8 ??F) (Oral) Resp 16 SpO2 100% General: Appears alert and non distressed, He appears non toxic. Blood pressure 122/86, pulse 79, temperature 36.6 ??C (97.8 ??F), temperature source Oral, resp. rate 16, SpO2 100%. HEENT: Head normocephalic and atraumatic Eyes Normal, conjunctiva normal without injection. PERRL. Ears: Right TM normal Left TM normal, external auditory canals without drainage. Nose: Mucosa boggy but not erythematous Throat: normal, no peritonsillar masses or swelling. Neck: Soft, without cervical lymphadenopathy, no meningeal signs. Chest: normal air entry, no rhonchi and wheezes. Heart: HS normal with no murmurs. Rectal: she has a skin tag at the 6 o'clock position and some tenderness there but no active hemorrhoid swelling. The vaginal introitus is a little erythematous and there is some moisture. Laboratory Testing: No results found for any visits on 05/07/23. Radiology: No results found. MDM: likely she has a fissure so will have her switch for the prepH ointment she is using to supps.We did another swab for yeast and or bv and she will be treated according to the results. She will follow up with her OB about that discomfort Her sinus issues appear to be more chronic sinusitis than anything infectious. She has an allergistappt coming up in June Interventions: Orders Placed This Encounter Vaginitis Panel (Includes Bacterial Vaginosis, Vandana Species, Vandana Glabrata and Trichomonas Vaginalis.) hydrocortisone (ANUCORT-HC) 25 MG suppository predniSONE (DELTASONE) 20 MG tablet Assessment 1. Vaginal discomfort 2. Rectal fissure 3. Chronic sinusitis, unspecified location Plan Patient Discharge Medications & Instructions: Medications Prescribed this Visit Disp Refills Start End hydrocortisone (ANUCORT-HC) 25 MG suppository 20 Suppository 0 05/07/2023 05/21/2023 Insert 1 Suppository (25 mg) rectally two times daily as needed (for rectal pain or bleeding or itching) for up to 14 days. Rectal predniSONE (DELTASONE) 20 MG tablet 10 Tablet 0 05/07/2023 05/12/2023 Take 2 Tablets (40 mg) by mouth daily for 5 days. Oral Patient Instructions Warm soaks will help with rectal pain Keep stools soft with miralax or colace if necessary Lots of fluids, high fiber diet Continue current allergy management and follow up as scheduled with the excel expert Jaquelin Garcia MD ERY CLERK CHECKING documented in this encounter Nursing Notes * Lucas Mercedes - 05/07/2023 1:00 PM CST Henny Rivas is a 42 y.o.male presents to the Urgent Care for sinus pressure and rectal pain. Pt presents with 1 week of sinus pain and pressure. Pt has been using nasal spray and dong sinus rinses. Pain has become worse today. Pt also having pain by her rectum. Pt reporting she does have a lump in the area. Patient requests an excuse letter for work/school: No ERY CLERK CHECKING documented in this encounter Plan of Treatment Not on file documented as of this encounter Procedures Procedure Name Priority Date/Time Associated Diagnosis Comments VAGINITIS PANEL Routine 05/07/2023 1:17 PM GROCERY CLERK CHECKING Vaginal discomfort documented in this encounter Results * Vaginitis Panel (Includes Bacterial Vaginosis, Vandana Species, Vandana Glabrata and Trichomonas Vaginalis.) (05/07/2023 1:17 PM GROCERY CLERK CHECKING) Bacterial Vaginosis Negative Negative 05/08/2023 3:17 PM GROCERY CLERK CHECKING [facility] Vandana species Negative Negative 3:17 PM GROCERY CLERK CHECKING [facility] Vandana glabrata Negative Negative 05/08/2023 3:17 PM GROCERY CLERK CHECKING [facility] Trichomonas vaginalis Negative Negative 05/08/2023 3:17 PM GROCERY CLERK CHECKING [facility] Swab STD SPECIMEN FROM VAGINA / Unknown Non-blood Collection / Unknown 05/07/2023 1:17 PM GROCERY CLERK CHECKING 05/07/2023 1:18 PM GROCERY CLERK CHECKING [facility] - 05/08/2023 3:17 PM GROCERY CLERK CHECKING Test performed by [employer] Machine Mediated Amplification (TMA). Jaquelin Garcia MD LAB_1 Performing Organization Address City/State/[facility] Co de Phone Number [facility] [address] [place] [id number] documented in this encounter Visit Diagnoses Diagnosis Vaginal discomfort Unspecified symptom associated with female genital organs Rectal fissure Anal fissure Chronic sinusitis, unspecified location documented in this encounter
--- OUTSIDE RECORDS SUMMARY | 2023-07-19 12:25 | XMS_ITS ---
Author Name Unknown Organization [facility] Address [address] [place] [address] Care Team Providers Care Air Conditioning Technician Name Role Phone Unavailable Unavailable Unavailable Surgery Details Not on file Complications Check Surgery Details section. Procedure Estimated Blood Loss Check Surgery Details section. Procedure Findings Check Surgery Details section. Procedure Specimens Taken Check Surgery Details section.
--- OUTSIDE RECORDS SUMMARY | 2023-07-19 12:25 | XMS_ITS | Encounter Summary ---
Author Name Unknown Organization [facility] Address [address] [place] [address] Care Team Providers Care Scrap Yard Worker Name Role Phone Unavailable Primary Care Provider Unavailabl e Reason for Visit * Reason Comments Abdominal Pain Left sided abdominal pressure, going on for 3 days, taking OTC and eating a bland diet, patient is wondering if she is having heart burn, some constipation Encounter Details Date Type Department Care Team (Latest Contact Info) Description 06/28/2023 10:40 AM CDT Office Visit [place] [id number] [facility] [address] [place] [address] [place] [address] [place] [address] Fatigue, unspecified type; H/O gastroesophageal reflux (GERD); Family history of neurological disease Social History Tobacco Use Types Packs/Day Years [...] documented in this encounter Progress Notes * Porsche Fair MD - 06/28/2023 10:40 AM CDT Henny Rivas is a 42 y.o.female presents to the Urgent Care for Abdominal Pain (Left sided abdominal pressure, going on for 3 days, taking OTC and eating a bland diet, patient is wondering if she is having heart burn, some constipation ) Some of the pressure is in left side of the chest, 3 days, no cardiac history SUBJECTIVE: Henny Rivas is a 42 y.o.female Chief Complaint: Chief Complaint Patient presents with Abdominal Pain Left sided abdominal pressure, going on for 3 days, taking OTC and eating a bland diet, patient is wondering if she is having heart burn, some constipation HPI: 42 years old female she is coming today to clinic complained about fatigued tired left upper quadrant abdominal pain, not herself, patient has history of hiatal hernia the take some anti acid medication and Gas-X and also she take MiraLax for constipation, she deny any pain that wake her up at night from sleep she deny any blood in her bowel movement, she deny any possibility of according patient she did had surgery for that tubal ligation, medication she take gabapentin, omeprazole she deny smoking she was in the high school kind of social smoker but not after that alcohol occasional, Her past medical history reviewed as below , her family history her mom at the age 27 when the patient was 4 years old, she stated that it was neurological disease that is start in her lower extremity progressed so bad that she was wheelchair-bound when she at the age of 28, exact cause of the or the neurological symptom diagnose is is not known to the patient, patient stated she was transferred to [place] and [place] to the [facility] she the she concern that she want to know what did happen what was her final diagnose is she has children and concern about them to if is any genetic problem. ROS: Complete ROS was negative other than what was cited above. Social History: Social History Tobacco Use Smoking status: Not on file Smokeless tobacco: Not on file Substance Use Topics Alcohol use: Not on file Drug use: Not on file Past Medical History: There is no problem list on file for this patient. Adverse Drug Reactions: Patient has no known allergies. Medications: ALPRAZolam, esomeprazole, estradiol, fluconazole, gabapentin, hydrOXYzine HCl, metroNIDAZOLE, and spironolactone OBJECTIVE: Vital Signs: BP 112/82 (BP Location: Right Arm, BP Cuff Size: Regular) Pulse 76 Temp 36.4 ??C (97.6 ??F) (Oral) Resp 15 SpO2 100% . General: Vital signs stable alert oriented she does not seems to be distressed HEENT: Negative Lymphatic: No enlarged lymph Chest: Clear Heart: Regular Abdomen: Abdomen is soft no rebound no guarding no mass no tenderness defer rectal exam or pelvic exam been done by her Ob any weight loss Musculoskeletal: Joints symmetrical for range of motion good muscle tone normal reflexes no weaknesses patient able to stand on the Tippy toe on the heel walking without any imbalance Skin: No rash Neurological: No focal deficit Psychiatric: As above Labs: @EDLABS@ X-Rays: No results found. ASSESSMENT: 1. Fatigue, unspecified type 2. H/O gastroesophageal reflux (GERD) 3. Family history of neurological disease PLAN: We discussed the following I did some blood test pretty intensive metabolic profile sed rate and CBC, if any abnormality patient will be informed 2. Patient been advised to call [place] to call the [facility] and get her final diagnose is of her mom the cause of her then she can notknow if is any genetic related diseases or not any worsening symptom concern question back to the clinic or see primary doctor otherwise she will be informed about the lab result she agree. @EDMEDS@ Medications Prescribed this Visit None Discharge instructions are on file. The patient was discharged ambulatory and in stable condition. documented in this encounter Nursing Notes * Georgia Cagle RN - 06/28/2023 10:40 AM CDT Henny Rivas is a 42 y.o.female presents to the Urgent Care for Abdominal Pain (Left sided abdominal pressure, going on for 3 days, taking OTC and eating a bland diet, patient is wondering if she is having heart burn, some constipation ) Some of the pressure is in left side of the chest, 3 days, no cardiac history documented in this encounter Plan of Treatment Not on file documented as of this encounter Results * TSH (06/28/2023 11:01 AM CDT) TSH, Sensitive 0.96 0.30 - 4.50 uIU/mL 06/28/2023 5:44 PM CDT [facility] Blood Venipuncture / Unknown 06/28/2023 11:01 AM CDT 06/28/2023 11:01 AM CDT Porsche Fair MD LAB_1 [facility] [address] [employer] [address] * Comp Metabolic Panel (06/28/2023 11:01 AM CDT) Sodium 140 136 - 145 mmol/L 06/28/2023 2:52 PM [facility] Potassium 4.3 3.5 - 5.1 mmol/L 06/28/2023 2:52 PM [facility] Chloride 105 98 - 109 mmol/L 06/28/2023 2:52 PM [facility] CO2 24 20 - 29 mmol/L 06/28/2023 2:52 PM [facility] Anion Gap 11 7 - 16 mmol/L 06/28/2023 2:52 PM [facility] Calcium 9.7 8.4 - 10.4 mg/dL 06/28/2023 2:52 PM [facility] BUN 10 7 - 26 mg/dL 06/28/2023 2:52 PM [facility] Creatinine 0.88 0.55 - 1.02 mg/dL 06/28/2023 2:52 PM [facility] Alkaline Phosphatase 71 40 - 150 U/L 06/28/2023 2:52 PM [facility] AST (SGOT) 13 10 - 40 U/L 06/28/2023 2:52 PM [facility] ALT (SGPT) <10 <=55 U/L 06/28/2023 2:52 PM [facility] Bilirubin, Total 0.6 0.2 - 1.2 mg/dL 06/28/2023 2:52 PM [facility] Protein, Total 7.0 6.4 - 8.3 g/dL 06/28/2023 2:52 PM [facility] Albumin 4.0 3.5 - 5.0 g/dL 06/28/2023 2:52 PM [facility] Glucose 88 70 - 100 mg/dL 06/28/2023 2:52 PM [facility] Comment:The given reference range is for the fasting state. Non-fasting reference range for glucose is 70 - 180 mg/dL. GFR, Estimated >60 >60 mL/min/1.7 3m2 06/28/2023 2:52 PM [facility] Hours Fasting 0.0 8 - 12 Hours 06/28/2023 2:52 PM [facility] Blood Venipuncture / Unknown 06/28/2023 11:01 AM CDT 06/28/2023 11:01 AM T Porsche Fair MD LAB_1 [facility] [address] [place] [address], [facility] [[email or web address]] documented in this encounter Visit Diagnoses Diagnosis Fatigue, unspecified type H/O gastroesophageal reflux (GERD) Personal history of other diseases of digestive system Family history of neurological disease Family history of other neurological diseases documented in this encounter
--- OUTSIDE RECORDS SUMMARY | 2023-07-19 12:25 | XMS_ITS | Clinical Summary ---
Author Name Unknown Organization [facility] Address [place], [place] [address] Care Team Providers Care Documentation Nurse Name Role Phone Tone Mcqueen Unavailable [phone] Pcp, No Primary Care Provider Unavailabl e Allergies No known active allergies Medications Medication Sig Dispensed Refills Start Date End Date Status budesonide (RHINOCORT ALLERGY) (32 mcg each actuation) nasal spray Inhale 1 [place] into both nostrils once daily. 0 02/13/2020 Active loratadine (CLARITIN) 10 mg tablet Take 1 tablet by mouth once daily. 0 03/22/2020 Active ibuprofen (ADVIL; MOTRIN) 600 mg tabletIndications:Abdulaziz arean delivery delivered Take 1 Tablet (600 mg) by mouth every 6 hours. Maximum of 3200 mg in 24 hours. 60 Tablet 08/16/2020 Active durable medical equipment (DME)Indications:Cesa rean delivery delivered interdry 14 Each 08/16/2020 Active cholecalciferol, Vitamin D3, 2,000 unit tablet Take 50 mcg by mouth. Active multivitamin (MVI) tablet Take 1 Tablet by mouth once daily. Active hydrOXYzine HCL (ATARAX) 25 mg tablet hydroxyzine HCl 25 mg tablet TAKE 1 TABLET (25 MG TOTAL) BY MOUTH 2 (TWO) TIMES A DAY NEEDED FOR ANXIETY. 06/04/2021 Active gabapentin (NEURONTIN) 300 mg capsule gabapentin 300 mg capsule TAKE 1 CAPSULE BY MOUTH THREE TIMES A DAY 11/07/2020 Active omeprazole (PRILOSEC) 20 mg Delayed-Release capsule Take 20 mg by mouth. Active spironolactone (ALDACTONE) 50 mg tablet Take 50 mg by mouth once daily. 05/20/2021 Active cetirizine (ZYRTEC) 10 mg tablet Take 1 Tablet (10 mg) by mouth once daily. 0 06/29/2021 Active Vaniqa cream APPLY A THIN LAYER TO THE AFFECTED AREA TWICE DAILY 07/23/2021 Active fluconazole (DIFLUCAN) 200 mg tablet 07/29/2021 Active fluticasone (50 mcg per actuation) nasal solution (FLONASE) Inhale 2 Sprays into affected nostril(s). Active mometasone 0.1% (ELOCON 0.1% OINTMENT) 0.1 % ointment 07/29/2021 Active ondansetron (ZOFRAN ODT) 4 mg disintegrating tablet TAKE 1 TABLET (4 MG TOTAL) BY MOUTH EVERY 8 (EIGHT) HOURS NEEDED FOR NAUSEA OR VOMITING FOR UP TO 10 DAYS. 07/09/2021 Active Active Problems Problem Noted Date [...] ( [facility] 1999 MB L&D TRIAGE) Last Filed Vital Signs Vital [...] 02/26/2021, 06/27/2020, 05/29/2020 Influenza for age 9-49 11/07/2023 8, 03/18/2012, 01/09/2008, Additional history exists Tetanus booster 11/23/2027 11/22/2017, 01/06, 04/15/2006 Tdap Completed 11/22/2017, 01/06, 04/15/2006 Pneumococcal series for age 6-64 Aged Out No longer eligible based on patient's age to complete this topic Advance Directives * Full Code (Latest Code Status on File) Date Activated Date Inactivated Comments 08/13/2020 5:25 PM 08/16/2020 3:14 PM Question Answer Comments Code Status Discussion: Discussed * Full Code Date Activated Date Inactivated Comments 02/17/2018 7:50 AM 02/19/2018 4:04 PM Question Answer Comments Code Status Discussion: Not Discussed * Full Code Date Activated Date Inactivated Comments 02/16/2018 6:36 PM 02/17/2018 7:50 AM [facility] Care Teams Documentation Nurse Relationship Specialty Start Date End Date Pcp, No . PCP - General 12/24/21 Tone Mcqueen [employer] [address] [facility] [address] [place] [address] Consulting Physician Cardiology - Interventional 03/21/20
--- OUTSIDE RECORDS SUMMARY | 2023-07-19 12:25 | XMS_ITS | Referral Summary ---
Author Name Unknown Organization [facility] Address [address] [place] [id number] Care Team Providers Care Farmworker Brooder Farm Name Role Phone Teena Hargrove MD Primary Care Provider [phone] Seble Dickinson PA-C Unavailable [phone] Allergies Active Allergy Reactions Criticality Noted Date Comments No Known Drug Allergy 04/09/2004 Medications Medication Sig Dispensed Refills Start Date End Date Status ALEVE 220 MG OR TABS 1 TABLET EVERY 12 HOURS NEEDED Active ASPIRIN 325 MG OR TBEC 2 TABLET EVERY 4 HOURS NEEDED Active EXCEDRIN EXTRA STRENGTH 250-250-65 MG OR TABS 2 TABLETS EVERY 6 HOURS NEEDED Active NASONEX 50 MCG/ACT NA SUSPIndications:Allerg ic rhinitis, cause unspecified 1-2 puff in each nostril once daily (july subst flonase if needed) 1 11 05/18/2007 Active VANCE-D 12 HOUR## 60-120 MG OR AH35Rrlerohauta:Allerg ic rhinitis, cause unspecified 1 TABLET TWICE DAILY ON EMPTY STOMACH 30 05/18/2007 Active ORTHO EVRA 150-20 MCG/24HR TD PTWKIndications:Contra ception APPLY ONE PATCH EVERY WEEK FOR 3 WEEKS THEN OFF FOR ONE WEEK 3 MONTHS 1 YEAR 04/05/2008 Active Progesterone Micronized (PROGESTERONE PO) Take by mouth At Bedtime Active Vit-Fe Fumarate-FA ( MULTIVITAMIN W/IRON) 27-0.8 MG tablet Take 1 tablet by mouth daily Active Active Problems Problem Noted Date Diagnosed [...] Years Used Date Smoking Tobacco: Former Cigarettes 0 06/25/2001 - 06/25/2006 Comments:1 pack per wk. Alcohol Use [...] 108.9 kg (240 lb) 03/17/2020 12:13 PM [facility] Height 167.6 cm (5' 6) 02/19/2019 2:39 PM [facility] Body Mass Index 38.74 02/19/2019 2:39 PM [facility] Plan of Treatment Not on file Procedures Procedure Name Priority Date/Time Associated Diagnosis Comments LIPID PROFILE Routine 02/01/2023 10:25 AM [facility] Encounter for screening for lipoid disorders GYNECOLOGIC CYTOLOGY Routine 02/01/2023 10:00 AM [facility] Encounter for screening for malignant neoplasm of cervix BASIC METABOLIC PANEL STAT 05/25/2020 12:50 AM CDT from Last 3 Months or Most Recently Relevant to Health Maintenance Results * (ABNORMAL) Lipid Profile (02/01/2023 10:25 AM [facility]) Cholesterol 198 <200 mg/dL 02/01/2023 2:46 PM [facility] Triglycerides 102 <150 mg/dL 02/01/2023 2:46 PM [facility] Direct Measure HDL 53 >=50 mg/dL 02/01/2023 2:46 PM [facility] LDL Cholesterol Calculated 125(H) <=100 mg/dL 02/01/2023 2:46 PM [facility] Non HDL Cholesterol 145(H) <130 mg/dL 02/01/2023 2:46 PM [facility] Blood TOPOGRAPHY UNKNOWN / Unknown Client Draw / Unknown 02/01/2023 10:25 AM [facility] 02/01/2023 1:09 PM [facility] Narrative [facility] - 02/01/2023 2:46 PM [facility] Cholesterol Desirable: ??<200 mg/dL Triglycerides Normal: ??Less [...] mg/dL Jericho Hernandez PA-C LAB - BLOOD [facility] [address] [facility], [address] [address], [facility] [phone] * Gynecologic Cytology (PAP) (02/01/2023 10:00 AM [facility]) Interpretation Negative for Intraepithelial Lesion or Malignancy (NILM) 02/03/2023 9:28 AM [facility] Comment Papanicolaou Test Limitations: Cervical cytology is a screening test with limited sensitivity, and regular screening is critical for cancer prevention. Pap tests are primarily effective for the diagnosis/prevent ion of squamous cell carcinoma, not adenocarcinoma or other cancers. 02/03/2023 9:28 AM [facility] Specimen Adequacy Satisfactory for evaluation, endocervical/wilkes sformation zone component present 02/03/2023 9:28 AM [facility] Clinical Information none 02/03/2023 9:28 AM [facility] LMP/Menopause Date 01-24-2023 02/03/2023 9:28 AM [facility] Reflex Testing Yes regardless of result 02/03/2023 9:28 AM [facility] Previous Abnormal? No 02/03/2023 9:28 AM [facility] Previous Abnormal Diagnosis NILM with NEG HPV 02/03/2023 9:28 AM [facility] Performing Labs The technical component of this testing was completed at [facility] 02/03/2023 9:28 AM [facility] Brushing CERVIX UTERI STRUCTURE / Unknown 02/01/2023 10:00 AM [facility] 02/01/2023 1:15 PM [facility] [address] [place] [address], [address] [place], [place] [id number], [facility] [phone] * (ABNORMAL) Basic metabolic panel (05/25/2020 12:50 AM CDT) Sodium 147(H) 133 - 144 mmol/L 05/25/2020 1:26 AM [facility] Comment:Reviewed, acceptable Potassium 3.6 3.4 - 5.3 mmol/L 05/25/2020 1:26 AM [facility] Chloride 110(H) 94 - 109 mmol/L 05/25/2020 1:26 AM [facility] Carbon Dioxide 25 20 - 32 mmol/L 05/25/2020 1:26 AM [facility] Anion Gap 12 3 - 14 mmol/L 05/25/2020 1:26 AM [facility] Glucose 84 70 - 99 mg/dL 05/25/2020 1:26 AM [facility] Urea Nitrogen 10 7 - 30 mg/dL 05/25/2020 1:26 AM [facility] Creatinine 0.57 0.52 - 1.04 mg/dL 05/25/2020 1:26 AM [facility] GFR Estimate >90 >60 mL/min/{1. 73_m2} 05/25/2020 1:26 AM [facility] Comment: Non GFR Calc Starting 02/22/2018, serum creatinine based estimated GFR (eGFR) will be calculated using the Chronic Kidney Disease Epidemiology Collaboration (CKD-EPI) equation. GFR Estimate If Black >90 >60 mL/min/{1. 73_m2} 05/25/2020 1:26 AM [facility] Comment: GFR Calc Starting 02/22/2018, serum creatinine based estimated GFR (eGFR) will be calculated using the Chronic Kidney Disease Epidemiology Collaboration (CKD-EPI) equation. Calcium 9.3 8.5 - 10.1 mg/dL 05/25/2020 1:26 AM [facility] Blood specimen (specimen) 05/25/2020 12:50 AM CDT 05/25/2020 1:00 AM CDT Trevon Lr MD LAB - BLOOD ORDERABL ES [facility] [address] [place] [address], [facility] [phone] from Last 3 Months or Most Recently Relevant to Health Maintenance Care Teams Farmworker [employer]oder Farm Relationship Specialty Start Date End Date Teena Hargrove MD [facility] [address] [facility] [address] [place] [address] PCP - General mate first 03/17/20 Seble Dickinson PA-C [address] [address] Physician Vegetable Farmworker Urology 08/24/22
--- OUTSIDE RECORDS SUMMARY | 2023-07-19 12:25 | XMS_ITS | Clinical Summary ---
Author Name Unknown Organization [facility] Address [address] [place] [address] Care Team Providers Care Stock Roller Name Role Phone Teena Hargrove MD Primary Care Provider [phone] Seble Dickinson PA-C Unavailable [phone] Allergies Active Allergy Reactions Criticality Noted Date [...] Active VANCE-D 12 HOUR## 60-120 MG OR [id number]:Allerg ic rhinitis, cause unspecified 1 TABLET TWICE [...] 108.9 kg (240 lb) 03/17/2020 12:13 PM LIEUTENANT FIRE FIGHTER Height 167.6 cm (5' 6) 02/19/2019 2:39 PM LIEUTENANT FIRE FIGHTER Body Mass Index 38.74 02/19/2019 2:39 PM LIEUTENANT FIRE FIGHTER Plan of Treatment Health Maintenance Due Date Last Done Comments ADVANCE CARE PLANNING 1981 ANNUAL REVIEW OF HM ORDERS 1981 MAMMO SCREENING 1981 MIGRAINE ACTION PLAN 1981 HIV SCREENING 1996 HEPATITIS C SCREENING 09/04/1999 HEPATITIS B IMMUNIZATION (1 of 3 - 19+ 3-dose series) 2000 HPV IMMUNIZATION (2 - 3-dose series) 02/06/2008 01/09/2008, 01/09/2008 YEARLY PREVENTIVE VISIT 01/08/2009 01/09/2008, 04/12 COVID-19 Vaccine ( season) 2022 04/02/2022, 02/26/2021, 06/27/2020, Additional history exists PHQ-2 (once per calendar year) 2023 GLUCOSE 05/26/2023 05/25/2020, 03/08, 03/17/2020, Additional history exists INFLUENZA VACCINE (Season Ended) 2023 12/19/2021, 02/19/2021, 11/30/2019, Additional history exists HPV TEST 02/02/2024 02/01/2023, [...] Comments LIPID PROFILE Routine 02/01/2023 10:25 AM LIEUTENANT FIRE FIGHTER Encounter for screening for lipoid disorders GYNECOLOGIC CYTOLOGY Routine 02/01/2023 10:00 AM LIEUTENANT FIRE FIGHTER Encounter for screening for malignant neoplasm of cervix BASIC METABOLIC PANEL STAT 05/25/2020 12:50 AM CDT from Last 3 Months or Most Recently Relevant to Health Maintenance Results * (ABNORMAL) Lipid Profile (02/01/2023 10:25 AM LIEUTENANT FIRE FIGHTER) Cholesterol 198 <200 mg/dL 02/01/2023 2:46 PM LIEUTENANT FIRE FIGHTER [facility] Triglycerides 102 <150 mg/dL 02/01/2023 2:46 PM LIEUTENANT FIRE FIGHTER [facility] Direct Measure HDL 53 >=50 mg/dL 02/01/2023 2:46 PM LIEUTENANT FIRE FIGHTER [facility] LDL Cholesterol Calculated 125(H) <=100 mg/dL 02/01/2023 2:46 PM LIEUTENANT FIRE FIGHTER [facility] Non HDL Cholesterol 145(H) <130 mg/dL 02/01/2023 2:46 PM LIEUTENANT FIRE FIGHTER [facility] Blood TOPOGRAPHY UNKNOWN / Unknown Client Draw / Unknown 02/01/2023 10:25 AM LIEUTENANT FIRE FIGHTER 02/01/2023 1:09 PM LIEUTENANT FIRE FIGHTER Narrative [facility] - 02/01/2023 2:46 PM LIEUTENANT FIRE FIGHTER Cholesterol Desirable: ??<200 mg/dL Triglycerides Normal: ??Less [...] than or equal to 220 mg/dL Jericho Cruz BLOOD [facility] [address] [facility], [address] [phone], [facility] [phone] * Gynecologic Cytology (PAP) (02/01/2023 10:00 AM LIEUTENANT FIRE FIGHTER) Interpretation Negative for Intraepithelial Lesion or Malignancy (NILM) 02/03/2023 9:28 AM [facility] FI[facility] Comment Papanicolaou Test Limitations: Cervical cytology is a screening test with limited sensitivity, and regular screening is critical for cancer prevention. Pap tests are primarily effective for the diagnosis/prevent ion of squamous cell carcinoma, not adenocarcinoma or other cancers. 02/03/2023 9:28 AM L[facility]UTENANT FIRE FIGH[facility] Specimen Adequacy Satisfactory for evaluation, endocervical/wilkes sformation zone component present 02/03/2023 9:28 AM [facility] Clinical Information none 02/03/2023 9:28 AM [facility] LMP/Menopause Date 01-24-2023 02/03/2023 9:28 AM [facility] Reflex Testing Yes regardless of result 02/03/2023 9:28 AM [facility] Previous Abnormal? No 02/03/2023 9:28 AM [facility] Previous Abnormal Diagnosis NILM with NEG HPV 02/03/2023 9:28 AM [facility] Performing Labs The technical component of this testing was completed at [facility] 02/03/2023 9:28 AM [facility] [facility] Brushing CERVIX UTERI STRUCTURE / Unknown 02/01/2023 10:00 AM L[employer]ENANT FIRE FIGHTER 02/01/2023 1:15 PM LIEUTENANT FIRE FIGHTER [facility] [address] [facility] [address], [address] [place] [phone], [facility] [phone] * (ABNORMAL) Basic metabolic panel (05/25/2020 12:50 AM CDT) Sodium 147(H) 133 - 144 mmol/L 05/25/2020 1:26 AM [facility] Comment:Reviewed, acceptable Potassium 3.6 3.4 - 5.3 mmol/L 05/25/2020 1:26 AM [facility] Chloride 110(H) 94 - 109 mmol/L 05/25/2020 1:26 AM [facility] Carbon Dioxide 25 20 - 32 mmol/L 05/25/2020 1:26 AM [facility] Anion Gap 12 3 - 14 mmol/L 05/25/2020 1:26 AM [facility] Glucose 84 70 - 99 mg/dL 05/25/2020 1:26 AM [facility] Urea Nitrogen 10 7 - 30 mg/dL 05/25/2020 1:26 AM [facility] Creatinine 0.57 0.52 - 1.04 mg/dL 05/25/2020 1:26 AM [facility] GFR Estimate >90 >60 mL/min/{1. 73_m2} 05/25/2020 1:26 AM [facility] Comment: Non GFR Calc Starting 02/22/2018, serum creatinine based estimated GFR (eGFR) will be calculated using the Chronic Kidney Disease Epidemiology Collaboration (CKD-EPI) equation. GFR Estimate If Black >90 >60 mL/min/{1. 73_m2} 05/25/2020 1:26 AM [facility] Comment: GFR Calc Starting 02/22/2018, serum creatinine based estimated GFR (eGFR) will be calculated using the Chronic Kidney Disease Epidemiology Collaboration (CKD-EPI) equation. Calcium 9.3 8.5 - 10.1 mg/dL 05/25/2020 1:26 AM [facility] Blood specimen (specimen) 05/25/2020 12:50 AM CDT 05/25/2020 1:00 AM CDT Trevon Lr MD LAB - BLOOD ORDERABL ES [facility] [address] [place] [address], [facility] [phone] from Last 3 Months or Most Recently Relevant to Health Maintenance Care Teams Stock Roller Relationship Specialty Start Date End Date Teena Hargrove MD [facility] [address]UL MALDONADO [facility] [address] [place] [address] PCP - General electroplater helper 03/17/20 Seble Dickinson PA-C [address] [facility] [address] [place] [address] Physician Supervisor Blood Donor Rec[employer]ers [facility] 08/24/22
--- OUTSIDE RECORDS SUMMARY | 2023-07-19 12:25 | XMS_ITS | Clinical Summary ---
Author Name Unknown Organization [facility] Address [address] [place] [address] Care Team Providers Care Tool And Cutter Grinder Name Role Phone Elsewhere, Pcp Primary Care Provider Unavailabl e Source Comments Patient records contain information from all sites at [facility]. For routine questions regarding patient records, call [phone] during business hours, M-F 8:00 AM - 5:00 PM Central Time. Record requests for emergency care only can be directed to [phone] at any time.[facility] Allergies No known active allergies Medications Medication Sig Dispensed Refills Start Date End Date Status cholecalciferol (VITAMIN D3) 50 mcg (2,000 Unit) tablet Take 50 mcg by mouth daily. Active multivitamin tablet Take 1 tablet by mouth daily. Active gabapentin (NEURONTIN) 300 mg capsuleIndications :Fibromyalgia Take 1 capsule (300 mg total) by mouth 3 (three) times a day. 90 capsule 1 07/10/2021 Active fluticasone propionate (FLONASE) 50 mcg/actuation nasal spray Administer 2 sprays into each nostril daily. Active hydrOXYzine (ATARAX) 25 mg tabletIndications: Anxiety TAKE 1 TABLET (25 MG TOTAL) BY MOUTH 2 (TWO) TIMES A DAY NEEDED FOR ANXIETY. 60 tablet 09/12/2021 Active cetirizine (ZyrTEC) 10 mg tablet Take 10 mg by mouth 2 (two) times a day as needed. For allergies Active acetaminophen (TYLENOL) 500 mg capsule Take 1,000 mg by mouth every 6 (six) hours as needed for pain. Active spironolactone (ALDACTONE) 50 mg tablet Take 1 tablet (50 mg total) by mouth daily. 30 tablet 01/30/2022 Active ibuprofen (MOTRIN) 600 mg tablet TAKE 1 TABLET (600 MG) BY MOUTH EVERY 6 HOURS. MAXIMUM OF 3200 MG IN 24 HOURS. Active cyclobenzaprine (FLEXERIL) 10 mg tabletIndications: Pain Rib,Strain Back Muscle Subsequent Take 1 tablet (10 mg total) by mouth 3 (three) times a day as needed for muscle spasms for up to 10 days. for muscle spams 30 tablet 06/01/2022 Active LORazepam (ATIVAN) 1 mg tablet Take 0.5 tablets (0.5 mg total) by mouth at bedtime as needed for anxiety. 10 tablet 06/09/2022 Active ALPRAZolam (XANAX) 0.5 mg tablet Take 1 tablet by mouth 2 (two) times a day as needed. Active metroNIDAZOLE (METROGEL) 0.75 % (37.5mg/5 gram) vaginal gel INSERT 1 APPLICATORFUL INTO VAGINA ONCE DAILY AT BEDTIME X 5 DAYS THEN 1-2 TIMESWEEK FOR PREVENTION 02/12/2023 Active clindamycin (CLEOCIN) 300 mg capsule TAKE 1 CAPSULE EVERY 12 HOURS BY ORAL ROUTE FOR 7 DAYS. 02/12/2023 Active celecoxib (CeleBREX) 200 mg capsule Take 1 capsule by mouth 2 (two) times a day. 02/05/2023 Active TURMERIC ROOT EXTRACT ORAL Take 500 mg by mouth. 11/11/2022 Active psyllium husk-calcium 1-60 gram-mg capsule Take 0.4 g by mouth. 11/11/2022 Active MAGNESIUM GLYCINATE ORAL Take by mouth. 11/11/2022 Active lactobacillus combination no.4 3 billion cell capsule Take by mouth. 11/11/2022 Active benzonatate (TESSALON) 200 mg capsule Take 1 capsule (200 mg total) by mouth 3 (three) times a day as needed for cough. 12 capsule 03/10/2023 Active Active Problems Problem Noted Date Diagnosed [...] any clubs o r organizations such as confucianism groups, unions, fraternal or athletic groups, or [...] Score 0 12/10/2021 [facility] Answer Date [...] Comments Blood Pressure 117/81 03/27/2023 8:42 AM BEVELING MACHINE OPERATOR Pulse 94 03/27/2023 8:42 AM BEVELING MACHINE OPERATOR Temperature 36.2 ??C (97.2 ??F) 03/27/2023 8:42 AM CS T Respiratory Rate 16 03/12/2023 8:34 AM BEVELING MACHINE OPERATOR Oxygen Saturation 98% 03/27/2023 8:42 AM BEVELING MACHINE OPERATOR Inhaled Oxygen Concentration - - Weight 95.8 kg (211 lb 4.8 oz) 03/27/2023 8:42 A M BEVELING MACHINE OPERATOR Height 169.4 cm (5' 6.69) 03/27/2023 8:42 AM CS T Body Mass Index 33.4 03/27/2023 8:42 AM BEVELING MACHINE OPERATOR Plan of Treatment Upcoming Encounters Date Type Department Care Team (Latest Contact Info) Description 07/27/2023 9:45 AM CDT Clinical Communication Virtual Review in [place], [place] [address] [place] [phone] 07/28/2023 11:00 AM CDT Comprehensive Visit Department of Obstetrics and Gynecology in [place], [place] [address] [place] [phone] Candace Cha, BUSINESS ACCOUNT EXECUTIVE, C.N.P. [address] [place] [phone] Health Maintenance Due Date Last Done Comments HIV Screening 1981 Hepatitis C Screening 1981 Hepatitis B Vaccines (1 of 3 - 19+ 3-dose series) 2000 HPV Vaccines (2 - 3-dose series) 02/06/2008 01/09/2008, 01/09/2008 COVID-19 Vaccine ( - 2022-24 season) 2022 04/02/2022, 02/26/2021, 06/27/2020, Additional history exists Depression Screening (Annual PHQ-2) 03/08/2023 Mammogram 07/02/2023 07/01/2022, 08/07, 08/06/2021 (Performed elsewhere), Additional history exists Cervical Cancer Screening 02/01/20262022, 01/26/2022, 01/23/2021 (Performed elsewhere) Lipid (Cholesterol) Screening 02/02/2028 02/01/2023, 01/26/2022 DTaP,Tdap,and Td Vaccines (5 - Td or Tdap) 07/23/2030 07/23/2020, 11/22/2017, 01/15/2014, Additional history exists Influenza Vaccine Completed 12/25/2022, , 11/30/2019, Additional history exists Pneumococcal vaccine (0-64 years) Aged Out No longer eligible based on patient's age to complete this topic Procedures Procedure Name Priority Date/Time Associated Diagnosis Comments EXTI LIPID PANEL, S Routine 02/01/2023 1 0:25 AM BEVELING MACHINE OPERATOR from Last 3 Months or Most Recently Relevant to Health Maintenance Care Teams Tool And Cutter Grinder Relationship Specialty Start Date End Date Elsewhere, Pcp PCP - General Internal Medicine 01/07/22
--- OUTSIDE RECORDS SUMMARY | 2023-07-19 12:25 | XMS_ITS | Encounter Summary ---
Author Name Unknown Organization [facility] Address [address] [place] [address] Care Team Providers Care R D Engineer Name Role Phone Elsewhere, Pcp Primary Care Provider Unavailabl e Encounter Details Date Type Department Care Team (Late st Contact Info) Description 03/30/2023 Orders Only Urgent Care, [facility], in [place], [place] [address] [place] [phone] Mario Valle, P.A.-C. [address], [place] [phone] Urinary Tract Infection Site Not Specified (Primary [...] week 04/03/2022 How often do you attend [facility] or [facility]? 1 to 4 times per year 04/03/2022 Do you belong to any clubs o r organizations such as methodist groups, unions, fraternal or athletic groups, or [...] Answer Date Recorded PHQ-2 Score 0 12/10/2021 [facility] - Occupational [...] as of this encounter Plan of Treatment Upcoming Encounters Date Type Department Care Team (Latest Contact Info) Description 07/27/2023 9:45 AM CDT Clinical Communication Virtual Review in [place], [place] [address] [place] [phone] 07/28/2023 11:00 AM CDT Comprehensive Visit Department of Obstetrics and Gynecology in [place], [place] [address] [place] [phone] Candace Cha, CELINA, C.N.P. [address] [place] [phone] documented as of this encounter Visit Diagnoses Diagnosis Urinary Tract Infection Site Not Specified- Primary documented in this encounter Additional Health Concerns Assessment Noted Time PHQ-9 Depression Total Score: 3 04/23/19 22 8:30 AM DIRECTOR LEARNING SERVICES documented as of this encounter Care Teams R D Engineer Relationship Specialty Start Date End Date Elsewhere, Pcp PCP - General Internal Medicine 01/07/22 documented as of this encounter
--- OUTSIDE RECORDS SUMMARY | 2023-07-19 12:25 | XMS_ITS | Referral Summary ---
Author Name Unknown Organization [facility] Address [address] [place] [address] Care Team Providers Care Termite Control Servicer Name Role Phone Elsewhere, Pcp Primary Care Provider Unavailabl e Source Comments Patient records contain information from all sites at [facility]. For routine questions regarding patient records, call [phone] during business hours, M-F 8:00 AM - 5:00 PM Central Time. Record requests for emergency care only can be directed to [phone] at any time.[facility] Allergies No known active allergies Medications [...] any clubs o r organizations such as lutheran groups, unions, fraternal or athletic groups, or [...] Answer Date Recorded PHQ-2 Score 0 12/10/2021 [facility] - Occupational Stress [...] Comments Blood Pressure 117/81 03/27/2023 8:42 AM PIPE WASHER Pulse 94 03/27/2023 8:42 AM PIPE WASHER Temperature 36.2 ??C (97.2 ??F) 03/27/2023 8:42 AM CS T Respiratory Rate 16 03/12/2023 8:34 AM PIPE WASHER Oxygen Saturation 98% 03/27/2023 8:42 AM PIPE WASHER Inhaled Oxygen Concentration - - Weight 95.8 kg (211 lb 4.8 oz) 03/27/2023 8:42 A M PIPE WASHER Height 169.4 cm (5' 6.69) 03/27/2023 8:42 AM CS T Body Mass Index 33.4 03/27/2023 8:42 AM PIPE WASHER Plan of Treatment Upcoming Encounters Date Type Department Care Team (Latest Contact Info) Description 07/27/2023 9:45 AM CDT Clinical Communication Virtual Review in [place], [place] [address] [place] [phone] 07/28/2023 11:00 AM CDT Comprehensive Visit Department of Obstetrics and Gynecology in [place], [place] [address] [place] [phone] Candace Cha, SHOE HANDLER, C.N.P. [address] [place] [phone] Procedures Procedure Name Priority Date/Time Associated Diagnosis Comments EXTI LIPID PANEL, S Routine 02/01/2023 1 0:25 AM PIPE WASHER from Last 3 Months or Most Recently Relevant to Health Maintenance Care Teams Termite Control Servicer Relationship Specialty Start Date End Date Elsewhere, Pcp PCP - General Internal Medicine 01/07/22
[2023-07-19 23:01] LABS: Bacterial Vaginosis* Negative (Negative); Candida glab/krus NOT DETECTED (No Detected); Candida species NOT DETECTED (No Detected); Trichomonas vaginalis NOT DETECTED (No Detected)
== END 2023-07-19 12:24 | disposition home or self-care (01) ==
LOC: LKVREF 12:23
PROVIDERS: PCP Family Medicine; Visit Provider Physician Assistant
DX: N89.8 Other specified noninflammatory disorders of vagina (principal)
CPT/HCPCS: 81513; 87481; 87661

== ENCOUNTER 2023-12-21 11:48 | Outpatient (CLI) | payer OTHER, SELFPAY ==
--- OUTSIDE RECORDS SUMMARY | 2023-12-21 11:55 | XMS_ITS | Clinical Summary ---
Author Organization [facility] Address [address] [place] [address] Care Team Providers Care Canal Boat Operator Name Role Phone Unavailable Primary Care Provider Unavailabl e Source Comments You are receiving this document as you are listed as the primary care provider,follow-up provider, or the patient has been referred to you for consultation.This is in compliance with the Medicare andMedicaid EHR Incentive Program,which states Providers who transition their patient to another setting of careor provider of care or refers their patient to another provider of care shouldprovide summary care record for each transition of care or referral. [employer] Allergies No known active allergies Medications Medication Sig Dispensed Refills Start Date End Date Status gabapentin (NEURONTIN) 300 MG capsule Take 1 Capsule (300 mg) by mouth three times a day. 04/05/2023 Active spironolactone (ALDACTONE) 50 MG tablet Take [...] two times daily as needed. 03/16/2023 Active estradiol 10 MCG TABS vaginal tablet Insert vaginally. 06/26/2023 Active amoxicillin-clavul anate (AUGMENTIN) 875-125 mg per tablet Take 1 Tablet by mouth two times a day for 7 days. Take with food or milk. Do not start before November 21, 2023. 14 Tablet 11/21/2023 11/28/2023 Active Problems No known active problems Encounters Date Type Department Care Team Description 11/17/2023 12:00 PM CDT Ancillary Procedure [facility] [id number] [place] [phone] Carla Hudson PA-C COVID-19; Cough, unspecified type 11/17/2023 11:20 AM CDT Office Visit [place] [address] [facility] [address] [place] [phone] Carla Hudson PA-C COVID-19; Sinus congestion; Cough, unspecified type 10/12/2023 1:40 PM CDT Office Visit [place] [address] [facility] [address] [place] [phone] Jaquelin Garcia MD Chest pain, unspecified type; Pharyngitis, unspecified etiology; Costochondritis from Last 3 Months Social History Tobacco Use Types Packs/Day Years Used Date Smoking Tobacco: Never Tobacco Cessation:Counseling Given: Not Answered Sex and Gender Information Value Date Recorded Sex Assigned at Not on file Gender Identity Not on file Sexual Orientation Not on file Last Filed Vital Signs Vital Sign Reading Time Taken Comments Blood Pressure 117/76 11/17/2023 11:32 AM CDT Pulse 69 11/17/2023 11:32 AM CDT Temperature 36.3 ??C (97.4 ??F) 11/17/2023 1 1:32 AM CDT Respiratory Rate 18 11/17/2023 11:3 2 AM CDT Oxygen Saturation 100% 11/17/2023 11: 32 AM CDT Inhaled Oxygen Concentration - - Weight 83.5 kg (183 lb 15.9 oz) 006 10:30 AM CDT C: 83.5kg Height - - Body Mass Index - - Plan of Treatment Health Maintenance Due Date Last Done Comments Hep C Screening (Preventive Services) 1981 Mammogram 1981 HIV Screening (Preventive Services) 1997 Adult Preventive Visit 09/04/1999 HepB (1) 2000 Cervical Cancer Screening Due 09/04/2003 2003 HPV Vaccine (2 - 3-dose series) 02/06/2008 01/09/2008 COVID-19 Vaccine ( - season) 2023 04/02/2022, 02/26/2021, 06/27/2020, Additional history exists Influenza (#1) 2023 12/25/2022, 12/06, 02/19/2021, Additional history exists DTaP/Tdap/Td (5 - Tdap) 07/23/2030 07/24/19, 11/22/2017, 01/15/2014, Additional history exists Zoster/Shingles (1 of 2) 09/04/2031 HepA Aged Out No longer eligi ble based on patient's age to complete this topic Hib Aged Out No longer eligi ble based on patient's age to complete this topic IPV (Polio) Aged Out No longer eligi ble based on patient's age to complete this topic RSV Aged Out No longer eligi ble based on patient's age to complete this topic MCV4 Aged Out No longer eligi ble based on patient's age to complete this topic Pneumococcal Aged Out No longer eligi ble based on patient's age to complete this topic Procedures Procedure Name Priority Date/Time Associated Diagnosis Comments XR CHEST 2 VIEWS STAT 11/17/2023 12:0 7 PM CDT COVID-19 Cough, unspecified type HANNAH PREP STAT 10/12/2023 1:34 PM CDT Pharyngitis, unspecified etiology ECG 12 LEAD OUTPATIENT STAT 10/12/2023 1:14 PM CDT Chest pain, unspecified type ANATOMICAL PATH LIQUID BASED Routine 2003 12:13 PM CDT from Last 3 Months or Most Recently Relevant to Health Maintenance Results * XR Chest 2 Views (11/17/2023 12:07 PM CDT) Anatomical Region Laterality Modality Chest, Lung Digital Radiogra phy 11/17/2023 11:5 7 AM CDT Impressions 11/17/2023 12:10 PM CDT COMPARISON: ??None. FINDINGS: 2 views. Normal cardiomediastinal silhouette and pulmonary vasculature. Lungs appear clear. No pneumothorax or pleural effusion. Bony thorax is unremarkable. Narrative Procedure Note Mirna Padgett MD - 11/17/2023 IMPRESSION COMPARISON: None. FINDINGS: 2 views. Normal cardiomediastinal silhouette and pulmonaryvasculature. Lungs appear clear. No pneumothorax or pleural effusion. Bonythorax is unremarkable. Carla RIVERA GD * HANNAH Prep (10/12/2023 1:34 PM CDT) Fungal Elements Not Detected Not detected 10/12/2023 1:49 PM CDT [facility] Swab (Source Required) ENTIRE MOUTH REGION / Unknown Non-blood Collection / Unknown 10/12/2023 1:34 PM CDT 10/12/2023 1:41 PM CDT Jaquelin Garcia MD LAB_1 [facility] [address] [place] [phone] * ECG 12-LEAD ROUTINE (Non Lab to perform-Today)-STAT (10/12/2023 1:14 PM CDT) Ventricular Rate 67 BPM [facility]USE [facility] Atrial Rate 67 BPM [facility]USE [facility] P-R Interval 104 ms MUSE [facility] QRS Duration 90 ms MUSE [facility] QT 396 ms MUSE [facility]HP QTc 418 ms MUSE GHP P [place] 50 degrees MUSE GHP R [place] 23 degrees MUSE GHP T [place] 21 degrees MUSE GHP 10/12/2023 1:14 PM CDT Narrative MUSE [facility]HP - 10/12/2023 2:31 PM CDT Sinus rhythm with short VT Otherwise normal ECG No previous ECGs available Confirmed by Yadiel Sequeira ([id number]) on 10/12/2023 2:31:02 PM Procedure Note Justus Sequeira MD - 10/12/2023 Sinus rhythm with short VT Otherwise normal ECG No previous ECGs available Confirmed by Yadiel Sequeira ([id number]) on 10/12/2023 2:31:02 PM Jaquelin Garcia MD PN ECG ORDERABLES [facility] [address] [place] [id number] * Pap Smear (2003 12:13 PM CDT) PAP Smear Liquid Based SEE TEXT No normal range HP CONVERSION Comment: Patient: HENNY CHANEY ? CERVICAL CYTOLOGY REPORT Pathology # ??[id number] ?Date Obtained: ? Date Received: CYTOLOGIC IMPRESSION: Negative for intraepithelial lesion or malignancy. ? ADDITIONAL DATA LMP: ?08-26-03 CLINICAL HIST ? PREV NORM 08-08, NEG HX LIQUID BASED PAP CERVICAL SPECIMEN ADEQUACY: ?? Satisfactory. ENDOCERVICAL CELLS: ??Present. Verified 09/15/03 by: ??SN ? (electronic signature) 2003 12:1 3 PM CDT Duarte Mckeon MD LAB_1 HP CONVERSION from Last 3 Months or Most Recently Relevant to Health Maintenance
--- OUTSIDE RECORDS SUMMARY | 2023-12-21 11:55 | XMS_ITS | Clinical Summary ---
Author Organization [employer] [facility] Address [place], [place] [address] Care Team Providers Care Channel Installer Name Role Phone Tone Mcqueen Unavailable [phone] Lakhwinder Lau MD Primary Care Provider [phone] Allergies No known active allergies Medications Medication Sig Dispensed Refills Start Date End Date Status multivitamin (MVI) tablet Take 1 Tablet by mouth once daily. Active hydrOXYzine HCL (ATARAX) 25 mg tablet hydroxyzine HCl 25 mg tablet TAKE 1 TABLET (25 MG TOTAL) BY MOUTH 2 (TWO) TIMES A DAY NEEDED FOR ANXIETY. 06/04/2021 Active gabapentin (NEURONTIN) 300 mg capsule gabapentin 300 mg capsule TAKE 1 CAPSULE BY MOUTH THREE TIMES A DAY 11/07/2020 Active spironolactone (ALDACTONE) 50 mg tablet Take 50 mg by mouth once daily. 05/20/2021 Active cetirizine (ZYRTEC) 10 mg tablet Take 1 Tablet (10 mg) by mouth once daily. 0 06/29/2021 Active fluticasone (50 mcg per actuation) nasal solution (FLONASE) Inhale 2 Sprays into affected nostril(s). Active esomeprazole (NEXIUM) 40 mg capsule Take 40 mg by mouth once daily before a meal. Active ALPRAZolam (XANAX) 0.5 mg tablet Take 0.5 mg by mouth one time if needed. Active medication order composer Magnesium 120mg four times daily 08/03/2023 Active VITAMIN D3-VITAMIN K2, MK4, ORAL Take 5 Drops by mouth once daily. Active Lactobac no.21/Bifidobac no.9 (PROBIOTIC DIGESTIVE HEALTH ORAL) Take by mouth. Active L.acid/L.casei/B.bif /B.palak/FOS (PROBIOTIC BLEND ORAL) Take 1 Tablet by mouth once daily. Active Active Problems Problem Noted Date Diagnosed Date Abdominal bloating with cramps 10/29/2023 Abdominal pain 10/29/[address] of the abdomen 10/29/2023 Chronic idiopathic constipation 10/29/2023 Hemangioma of liver 10/29/2023 GERD (gastroesophageal reflux disease) Hiatal hernia 10/29/2023 Liver lesion 10/29/2023 RUQ discomfort 10/29/2023 Vitamin D deficiency 10/10/2021 Fibromyalgia 02/12/2021 S/P repeat low transverse 08/16/2020 History of section complicating pregnan cy 04/25/2020 Echogenic focus of heart of fetus affecting antepartum care of mother 04/25/2020 Obesity affecting in second trimester 04/25/2020 Rh negative state in antepartum period, third tr imester 02/16/2018 Failed induction of labor, delivered 02/16/2018 Encounter for screening for cardiovascular disor ders 01/05/2010 Migraine 06/10/2006 Overview (10/29/2023): Problem list name updated by automated process. Provider to review Allergic rhinitis 04/12/2006 Overview (10/10/2021): Problem list name updated by automated process. Provider to review Problem list name updated by automated process. Provider to review Insomnia 04/12/2006 Overview (10/10/2021): Problem list name updated by automated process. Provider to review Irregular menstrual cycle 04/12/2006 Hirsutism 04/12/2006 Resolved Problems Problem Noted Date Diagnosed Date Resolved Date Primary LST delivery delivered 02/16/2018 08/16/2020 Low lying placenta nos or wi thout hemorrhage, third trimester 08/16/2020 Encounters Date Type Department Care Team Description 10/29/2023 8:30 AM CDT - 10/29/2023 11:59 PM CDT Hospital Encounter [facility] [address] [place] [address] Lori Pompa, BIRD SITTER Rubin, Bettie Howard, RD, [facility] 10/29/2023 Travel from Last 3 Months Immunizations Name Administration Dates Next Due HPV [...] Rarely, a few drinks once a month at most PHQ-2 Answer Date Recorded PHQ-2 TOTAL SCORE 0 02/12/2020 Social Connections Answer Date Recorded Frequency of Communication with Friends and Fami ly Not on file 03/08/2021 Financial Resource Strain Answer Date R ecorded Difficulty of Paying Living Expenses Not on file 03/08/2021 Difficulty of Paying Living Expenses Not on file 03/08/2021 Sex and Gender Information Value Date Recorded Sex Assigned at Female 10/29/2023 8:27 AM CDT Gender Identity Female 10/29/2023 8:27 AM CDT Sexual Orientation Straight 10/29/2023 8: 27 AM CDT Obstetrics History Para Term AB IAB SAB Ectopic Multiple Livin g Live Births 3 2 2 1 1 0 2 2 Date Outcome GA Total Labor Labor/2nd/3rd Weight Sex Type Anes PTL Mary A1 A5 Name Clin 2017 Term 41w 0d 2.75 kg (6 lb 1 oz) F CS-LT ranv Livin g Complications: distress 2018 SAB 2020 Term 39w 0d 0h 01m 0h 01m 3.23 kg (7 lb 1.9 oz) M C-Sec tion Chip g 8 9 GA [place],BB Altaf Pierce MD Delivery Location:Hospital ( [facility] [address] L&D TRIAGE) Last Filed Vital Signs Vital Sign Reading Time Taken Comments Blood Pressure 112/72 08/03/2023 2:35 PM CDT Pulse 68 08/03/2023 2:35 PM CDT Temperature 36.3 ??C (97.3 ??F) 10/16/2021 4:06 PM CD T Respiratory Rate 18 10/16/2021 4:06 PM CDT Oxygen Saturation 99% 10/16/2021 4:06 PM CDT Inhaled Oxygen Concentration - - Weight 88.5 kg (195 lb) 08/03/2023 2:35 PM CDT Height 167.6 cm (5' 6) 08/03/2023 2:35 PM CDT Body Mass Index 31.47 08/03/2023 2:35 PM CDT Plan of Treatment Upcoming Encounters Date Type Department Care Team (Late st Contact Info) Description 12/31/2023 10:00 AM CDT Office Visit [facility] [address] [place] [address] [place] [address] [place], [place] [id number] Health Maintenance Due Date Last Done Comments HIV for age 15-65 1996 Hepatitis C screening for age 18-79 09/04/1999 Pap test for age 21-65 2002 Depression screening for age 12+ 02/11/2021 02/12/2020, 02/24/2018, 02/24/2018, Additional history exists COVID-19 vaccine series ( season) 2023 04/02/2022, 02/26/2021, 06/27/2020, Additional history exists Influenza for age 9-49 11/07/2023 8, 03/18/2012, 01/09/2008, Additional history exists BMI (ht and wt on same day) for age 18+ 08/02/2024 08/03/2023, 10/16/2021, 06/29/2021, Additional history exists Tetanus booster 11/23/2027 11/22/2017, [...] AM Post cathy gale section Care Teams Channel Installer Relationship Specialty Start Date End Date Lakhwinder Lau MD [address] [place] [address] PCP - General Family Practice 10/05/23 Tone Mcqueen MBBS [address] [place] [address] Consulting Physician Cardiology - Interventional 03/21/20
--- OUTSIDE RECORDS SUMMARY | 2023-12-21 11:55 | XMS_ITS | Encounter Summary ---
Author Organization [facility] Address [address] [address] Care Team Providers Care Stone Grader Name Role Phone Unavailable Primary Care Provider Unavailabl e Reason for Referral * Procedure/Equipment (Routine) - Incomplete Specialty Diagnoses / Procedures Referred By Tania beckett Referred To Contact Diagnoses COVID-19 Cough, unspecified type Procedures XR Chest 2 Views Carla Hudson PA-C [address] [place] [address] Referral ID Status Reason Start Date Expiration Date V isits Requested Visits Authorized [id number] Incomplete 11/17/2023 02/15/2025 1 1 Reason for Visit * Reason Comments Cough CONGESTION, SINUS Encounter Details Date Type Department Care Team (Late st Contact Info) Description 11/17/2023 11:20 AM CDT Office Visit [facility] [address] [place] [address] Carla Hudson PA-C [address] [place], [place] [id number] COVID-19; Sinus congestion; Cough, unspecified type Social History Tobacco Use Types [...] CDT Temperature 36.3 ??C (97.4 ??F) 11/17/2023 11:32 AM C DT Respiratory Rate 18 11/17/2023 11:32 AM CDT Oxygen Saturation 100% 11/17/2023 11:32 AM CDT Inhaled Oxygen Concentration - - Weight - - Height - - Body Mass Index - - documented in this encounter Progress Notes * Carla Hudson PA-C - 11/17/2023 11:20 AM CDT SUBJECTIVE: Henny Rivas is a 43 y.o.female presenting to Urgent care for evaluation of cough, nasal congestion with mild sinus pain and pressure. Patient states symptoms started 6 days ago and is persisting she did have a COVID test on 11/12/2023 which did come back positive. She states last time she had COVID she wound up with a sinus infection and bronchitis and is concerned that she maybe developing that especially since she started coughing up more green sputum and feeling a little more congested in the chest. No shortness a breath. She did have some fatigue, achiness and possible temps early on in the illness but those have since resolved. She has been using Mucinex, Neti pot and supportive cares that does seem to be helping with symptoms. She does have some ear pressure and discomfort as well. Past Medical History: There is no problem list on file for this patient. Social History: Social History Tobacco Use Smoking status: Never Smokeless tobacco: Not on file Substance Use Topics Alcohol use: Not on file Recent Travel Outside [place].: Denies Adverse Drug Reactions: Patient has no known allergies. Medications: ALPRAZolam, amoxicillin-clavulanate, esomeprazole, estradiol, gabapentin, hydrOXYzine HCl, and spironolactone OBJECTIVE: Vital Signs: BP 117/76 (BP Location: Right Arm, BP Cuff Size: Regular) Pulse 69 Temp 36.3 ??C (97.4 ??F) (Oral) Resp 18 SpO2 100% General: appears stated age, NAD. A&O x3. Skin: Mucous membranes are moist without sign of dehydration or rash Eyes: Conjunctiva pink, sclera white, cornea and lenses are clear. PERRLA, full EOM. External normal. Ears: Normal pinnae, canals. TMs pearly li, normal light reflex Nose: Slightly congested.Clear rhinnorrhea. Throat: Moist mucous membranes without lesions; clear postnasal drainage. Face: Right frontal sinus minimally tender to percussion. Neck: Supple, no LAD Respiratory: Normal respiratory effort. Lungs are clear with good breath sounds. No rales or rhonchi or wheezing Heart: RR without murmurs, rubs, or gallops. Imaging: Chest x-ray two views ordered reviewed myself independently this shows lungs are clear without any acute findings. Radiology read XR Chest 2 Views Result Date: 11/17/2023 COMPARISON: None. FINDINGS: 2 views. Normal cardiomediastinal silhouette and pulmonary vasculature.Lungs appear clear. No pneumothorax or pleural effusion. Bony thorax is unremarkable. Orders Placed This Encounter XR Chest 2 Views amoxicillin-clavulanate (AUGMENTIN) 875-125 mg per tablet ASSESSMENT: 1. COVID-19 2. Sinus congestion 3. Cough, unspecified type PLAN: I discussed my findings and concerns of the patient I explained that symptoms are most consistent with COVID-19 and likely viral at this time I would anticipate symptoms should resolve on theirown over the next 7-10 days. We did discuss whether or not to get a chest x-ray lungs are clear vital signs are stable but patient would prefer an x-ray which was completed and was negative at this time which I informed patient of the results I did write a wait and see prescription for possible sinus issues if symptoms were to persist in the next 4-5 days may start antibiotic but if symptoms are resolving would recommend staying the course and not taking any antibiotics at that time recommend rest pushing plenty of fluids, Neti pot, nasal rinses and a decongestant as needed. May also use [id number] cough suppressant of choice. We discussed contagiousness. Use ibuprofen for fever or pain. Discussed home treatment of viral illnesses, and lack of indication for antibiotics. Encourage nutritious liquids. RTC PRN if not gradually improving. The patient was discharged ambulatory and in stable condition. @EDMEDS@ Medications Prescribed this Visit Disp Refills Start End amoxicillin-clavulanate (AUGMENTIN) 875-125 mg per tablet 14 Tablet 0 11/21/2023 11/28/2023 Take 1 Tablet by mouth two times a day for 7 days. Take with food or milk. Do not start before November 21, 2023. Oral Discharge Instructions None documented in this encounter Nursing Notes * Fer Martino RN - 11/17/2023 11:20 AM CDT Henny Rivas is a 43 y.o.female presents to the Urgent Care for Cough and CONGESTION, SINUS Symptoms began: 6 day(s) ago. At home COVID+ on 11/12/23. Fever: absent. Other associated symptoms: facial pain (sinus in location), myalgias, nasal congestion, and productive cough with sputum described as green. Any recent close contact with an individual with a known similar illness (including COVID): yes: spouse is COVID+; ear infections with children. Current medications: acetaminophen, Mucinex, nasal rinse. Patient requests an excuse letter for work/school: No documented in this encounter Plan of Treatment Not on file documented as of this encounter Results * XR Chest 2 Views (11/17/2023 [...] or pleural effusion. Bonythorax is unremarkable. Carla HEREDIA documented in this encounter Visit Diagnoses Diagnosis COVID-19 Sinus congestion Other diseases of nasal cavity and sinuses Cough, unspecified type COVID-19 Cough, unspecified type documented in this encounter
--- OUTSIDE RECORDS SUMMARY | 2023-12-21 11:55 | XMS_ITS | Clinical Summary ---
Author Organization [facility] Address [address] [place] [address] Care Team Providers Care Jacquard Loom Fixer Name Role Phone Teena Hargrove MD Primary Care Provider [phone] Seble Dickinson PA-C Unavailable [phone] Allergies Active Allergy Reactions Criticality Noted Date [...] Active VANCE-D 12 HOUR## 60-120 MG OR [id number]:Allerg ic rhinitis, cause unspecified 1 TABLET TWICE [...] 108.9 kg (240 lb) 03/17/2020 12:13 PM ACCOUNTING CLERK Height 167.6 cm (5' 6) 02/19/2019 2:39 PM ACCOUNTING CLERK Body Mass Index 38.74 02/19/2019 2:39 PM ACCOUNTING CLERK Plan of Treatment Health Maintenance Due Date Last Done Comments ADVANCE CARE PLANNING 1981 ANNUAL REVIEW OF HM ORDERS 1981 MAMMO SCREENING 1981 MIGRAINE ACTION PLAN 1981 HIV SCREENING 1996 HEPATITIS C SCREENING 09/04/1999 HEPATITIS B IMMUNIZATION (1 of 3 - 19+ 3-dose series) 2000 HPV IMMUNIZATION (2 - 3-dose series) 02/06/2008 01/09/2008, 01/09/2008 YEARLY PREVENTIVE VISIT 01/08/2009 01/09/2008, 04/12 PHQ-2 (once per calendar year) 2023 GLUCOSE 05/26/2023 05/25/2020, 03/08, 03/17/2020, Additional history exists COVID-19 Vaccine ( season) 2023 04/02/2022, 02/26/2021, 06/27/2020, Additional history exists INFLUENZA VACCINE (#1) 2023 , 02/19/2021, 11/30/2019, Additional history exists PAP 02/02/2024 02/01/2023, 01/07, 01/09/2008, Additional history exists LIPID 02/02/2028 02/01/2023, 01/07, 04/27/2006 DTAP/TDAP/TD IMMUNIZATION (5 - Td or Tdap) 07/23/2030 07/23/2020, 11/22/2017, 01/15/2014, Additional history exists RSV VACCINE (1 - 1-dose 75+ series) 2056 MENINGITIS IMMUNIZATION Aged Out No l onger [...] Comments LIPID PROFILE Routine 02/01/2023 10:25 AM ACCOUNTING CLERK Encounter for screening for lipoid disorders GYNECOLOGIC CYTOLOGY Routine 02/01/2023 10:00 AM ACCOUNTING CLERK Encounter for screening for malignant neoplasm of cervix BASIC METABOLIC PANEL STAT 05/25/2020 12:50 AM CDT from Last 3 Months or Most Recently Relevant to Health Maintenance Results * (ABNORMAL) Lipid Profile (02/01/2023 10:25 AM ACCOUNTING CLERK) Cholesterol 198 <200 mg/dL 02/01/2023 2:46 PM ACCOUNTING CLERK [facility] Triglycerides 102 <150 mg/dL 02/01/2023 2:46 PM ACCOUNTING CLERK [facility] Direct Measure HDL 53 >=50 mg/dL 02/01/2023 2:46 PM ACCOUNTING CLERK [facility] LDL Cholesterol Calculated 125(H) <=100 mg/dL 02/01/2023 2:46 PM ACCOUNTING CLERK [facility] Non HDL Cholesterol 145(H) <130 mg/dL 02/01/2023 2:46 PM ACCOUNTING CLERK [facility] Blood TOPOGRAPHY UNKNOWN / Unknown Client Draw / Unknown 02/01/2023 10:25 AM ACCOUNTING CLERK 02/01/2023 1:09 PM ACCOUNTING CLERK Narrative [facility] - 02/01/2023 2:46 PM ACCOUNTING CLERK Cholesterol Desirable: ??<200 mg/dL Triglycerides Normal: ??Less [...] Hernandez PA-C LAB - BLOOD ORD ERABLES [facility] [address], [address] [place] [address], [facility] [phone] * Gynecologic Cytology (PAP) (02/01/2023 10:00 AM ACCOUNTING CLERK) Interpretation Negative for Intraepithelial Lesion or Malignancy (NILM) 02/03/2023 9:28 AM ACCOUNTING CLERK [facility] Comment Papanicolaou Test Limitations: Cervical cytology is a screening test with limited sensitivity, and regular screening is critical for cancer prevention. Pap tests are primarily effective for the diagnosis/prevent ion of squamous cell carcinoma, not adenocarcinoma or other cancers. 02/03/2023 9:28 AM ACCOUNTING CLERK [facility] Specimen Adequacy Satisfactory for evaluation, endocervical/wilkes sformation zone component present 02/03/2023 9:28 AM ACCOUNTING CLERK [facility] Clinical Information none 02/03/2023 9:28 AM ACCOUNTING CLERK [facility] LMP/Menopause Date 01-24-2023 02/03/2023 9:28 AM ACCOUNTING CLERK [facility] Reflex Testing Yes regardless of result 02/03/2023 9:28 AM ACCOUNTING CLERK [facility] Previous Abnormal? No 02/03/2023 9:28 AM ACCOUNTING CLERK [facility] Previous Abnormal Diagnosis NILM with NEG HPV 02/03/2023 9:28 AM ACCOUNTING CLERK [facility] Performing Labs The technical component of this testing was completed at [facility] 02/03/2023 9:28 AM ACCOUNTING CLERK [facility] Brushing CERVIX UTERI STRUCTURE / Unknown 02/01/2023 10:00 AM ACCOUNTING CLERK 02/01/2023 1:15 PM ACCOUNTING CLERK [facility] [address] [place] [address] [phone] * (ABNORMAL) Basic metabolic panel (05/25/2020 12:50 AM CDT) Sodium 147(H) 133 - 144 mmol/L 05/25/2020 1:26 AM [facility] Comment:Reviewed, acceptable Potassium 3.6 3.4 - 5.3 mmol/L 05/25/2020 1:26 AM [facility] Chloride 110(H) 94 - 109 mmol/L 05/25/2020 1:26 AM [facility] Carbon Dioxide 25 20 - 32 mmol/L 05/25/2020 1:26 AM [facility] Anion Gap 12 3 - 14 mmol/L 05/25/2020 1:26 AM [facility] Glucose 84 70 - 99 mg/dL 05/25/2020 1:26 AM [facility] Urea Nitrogen 10 7 - 30 mg/dL 05/25/2020 1:26 AM [facility] Creatinine 0.57 0.52 - 1.04 mg/dL 05/25/2020 1:26 AM [facility] GFR Estimate >90 >60 mL/min/{1. 73_m2} 05/25/2020 1:26 AM [facility] Comment: Non GFR Calc Starting 02/22/2018, serum creatinine based estimated GFR (eGFR) will be calculated using the Chronic Kidney Disease Epidemiology Collaboration (CKD-EPI) equation. GFR Estimate If Black >90 >60 mL/min/{1. 73_m2} 05/25/2020 1:26 AM [facility] Comment: GFR Calc Starting 02/22/2018, serum creatinine based estimated GFR (eGFR) will be calculated using the Chronic Kidney Disease Epidemiology Collaboration (CKD-EPI) equation. Calcium 9.3 8.5 - 10.1 mg/dL 05/25/2020 1:26 AM [facility] Blood specimen (specimen) 05/25/2020 12:50 AM CDT 05/25/2020 1:00 AM CDT Trevon Lr MD LAB - BLOOD ORDERABL ES [facility] [address] [place] [address], [facility] [phone] from Last 3 Months or Most Recently Relevant to Health Maintenance Care Teams Jacquard Loom Fixer Relationship Specialty Start Date End Date Teena Hargrove MD PCP - General electrician supervisor airplane 03/17/20 Seble Dickinson PA-C [address] [place] [address] Physician Access Services Librarian Urology 08/24/22
--- OUTSIDE RECORDS SUMMARY | 2023-12-21 11:55 | XMS_ITS | Clinical Summary ---
Author Organization [facility] Address [address] [place] [address] Care Team Providers Care Special Trackwork Blacksmith Name Role Phone Elsewhere, Pcp Primary Care Provider Unavailabl e Source Comments Patient records contain information from all sites at [facility]. For routine questions regarding patient records, call [phone] during business hours, M-F 8:00 AM - 5:00 PM Central Time. Record requests for emergency care only can be directed to [phone] at any time.[facility] Allergies No known active allergies Medications * This document contains information received from the source organization and may not represent a complete record from that organization. cholecalciferol (VITAMIN D3) 50 mcg (2,000 Unit) tablet Take 50 mcg by mouth daily. Active multivitamin tablet Take 1 tablet by mouth daily. Active gabapentin (NEURONTIN) 300 mg capsuleIndicati ons:Fibromyalgi a Take 1 capsule (300 mg total) by mouth 3 (three) times a day. 90 capsule 1 2 Active fluticasone propionate (FLONASE) 50 mcg/actuation nasal spray Administer 2 sprays into each nostril daily. Active hydrOXYzine (ATARAX) 25 mg tabletIndicatio ns:Anxiety TAKE 1 TABLET (25 MG TOTAL) BY MOUTH 2 (TWO) TIMES A DAY NEEDED FOR ANXIETY. 60 tablet 2 Active cetirizine (ZyrTEC) 10 mg tablet Take 10 mg by mouth 2 (two) times a day as needed. For allergies Active acetaminophen (TYLENOL) 500 mg capsule Take 1,000 mg by mouth every 6 (six) hours as needed for pain. Active spironolactone (ALDACTONE) 50 mg tablet Take 1 tablet (50 mg total) by mouth daily. 30 tablet 2 Active ibuprofen (MOTRIN) 600 mg tablet TAKE 1 TABLET (600 MG) BY MOUTH EVERY 6 HOURS. MAXIMUM OF 3200 MG IN 24 HOURS. Active cyclobenzaprine (FLEXERIL) 10 mg tabletIndicatio ns:Pain Rib,Strain Back Muscle Subsequent Take 1 tablet (10 mg total) by mouth 3 (three) times a day as needed for muscle spasms for up to 10 days. for muscle spams 30 tablet 3 Active LORazepam (ATIVAN) 1 mg tablet Take 0.5 tablets (0.5 mg total) by mouth at bedtime as needed for anxiety. 10 tablet 3 Active ALPRAZolam (XANAX) 0.5 mg tablet Take 1 tablet by mouth 2 (two) times a day as needed. Active metroNIDAZOLE (METROGEL) 0.75 % (37.5mg/5 gram) vaginal gel INSERT 1 APPLICATORFUL INTO VAGINA ONCE DAILY AT BEDTIME X 5 DAYS THEN 1-2 TIMESWEEK FOR PREVENTION 3 Active clindamycin (CLEOCIN) 300 mg capsule TAKE 1 CAPSULE EVERY 12 HOURS BY ORAL ROUTE FOR 7 DAYS. 3 Active celecoxib (CeleBREX) 200 mg capsule Take 1 capsule by mouth 2 (two) times a day. 3 Active TURMERIC ROOT EXTRACT ORAL Take 500 mg by mouth. 3 Active psyllium husk-calcium 1-60 gram-mg capsule Take 0.4 g by mouth. 3 Active MAGNESIUM GLYCINATE ORAL Take by mouth. 3 Active lactobacillus combination no.4 3 billion cell capsule Take by mouth. 3 Active benzonatate (TESSALON) 200 mg capsule Take 1 capsule (200 mg total) by mouth 3 (three) times a day as needed for cough. 12 capsule 4 Active Active Problems Problem Noted Date Diagnosed Date Bleeding Postcoital 01/30/2022 Morbid Obesity Body Mass Index 40.0-44.9 Adult 0 06/05/2021 Fibromyalgia 02/12/2021 Headache Benign 02/12/2021 Rhinitis Allergic 04/12/2006 Overview (06/05/2021): Problem list name updated by automated process. [...] How often do you attend chur or mu-ism services? 1 to 4 times per year 04/03/2022 Do you belong to any clubs o r organizations such as hoahaoism groups, unions, fraternal or athletic groups, or [...] Recorded PHQ-2 Score 0 12/10/2021 [facility] [place] [facility] Occupat ional [facility] - Occupational Stress [...] have received? Some college, no degree 02/10/2021 Comments No Sex and Gender Information Value Date Recorded Sex Assigned at Female 12/05/2020 12:09 PM CDT Legal Sex Female 3:24 PM FIOS LINE INSTALLER Gender Identity Female 12/05/2020 12:09 PM CDT Sexual Orientation Not on file Last Filed Vital Signs Vital Sign Reading Time Taken Comments Blood Pressure 117/81 03/27/2023 8:42 AM FIOS LINE INSTALLER Pulse 94 03/27/2023 8:42 AM FIOS LINE INSTALLER Temperature 36.2 ??C (97.2 ??F) 03/27/2023 8:42 AM CS T Respiratory Rate 16 03/12/2023 8:34 AM FIOS LINE INSTALLER Oxygen Saturation 98% 03/27/2023 8:42 AM FIOS LINE INSTALLER Inhaled Oxygen Concentration - - Weight 95.8 kg (211 lb 4.8 oz) 03/27/2023 8:42 A M FIOS LINE INSTALLER Height 169.4 cm (5' 6.69) 03/27/2023 8:42 AM CS T Body Mass Index 33.4 03/27/2023 8:42 AM FIOS LINE INSTALLER Plan of Treatment Health Maintenance Due Date Last Done Comments HIV Screening 1980 Hepatitis C Screening 1980 Hepatitis B Vaccines (1 of 3 - 19+ 3-dose series) 2000 HPV Vaccines (2 - 3-dose series) 02/06/2008 01/09/2008, 01/09/2008 Depression Screening (Annual PHQ-2) 03/08/2023 Mammogram 07/02/2023 07/01/2022, 08/07, 08/06/2021 (Performed elsewhere), Additional history exists COVID-19 Vaccine ( - season) 2023 04/02/2022, 02/26/2021, 06/27/2020, Additional history exists Influenza Vaccine (#1) 2023 , 12/19/2021, 02/19/2021, Additional history exists Cervical Cancer Screening 02/01/20262022, 01/26/2022, 01/23/2021 (Performed elsewhere) Lipid (Cholesterol) Screening 02/02/2028 02/01/2023, 01/26/2022 DTaP,Tdap,and Td Vaccines (5 - Td or Tdap) 07/23/2030 07/23/2020, 11/22/2017, 01/15/2014, Additional history exists Pneumococcal vaccine (0-64 years) Aged Out No longer eligible based on patient's age to complete this topic Insurance [employer] Care Teams Special Trackwork Blacksmith Relationship Specialty Start Date End Date Elsewhere, Pcp PCP - General Internal Medicine 01/07/22
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
--- OUTSIDE RECORDS SUMMARY | 2023-12-21 11:55 | XMS_ITS | Referral Summary ---
Author Organization [facility] Address [address] [place] [address] Care Team Providers Care Rn Relief Charge Name Role Phone Elsewhere, Pcp Primary Care Provider Unavailabl e Source Comments Patient records contain information from all sites at [facility]. For routine questions regarding patient records, call [phone] during business hours, M-F 8:00 AM - 5:00 PM Central Time. Record requests for emergency care only can be directed to [phone] at any time.[facility] Allergies No known active allergies Medications * [...] any clubs o r organizations such as rastafari groups, unions, fraternal or athletic groups, or [...] PM CDT Legal Sex Female 3:24 PM NURSE EXTERN Gender Identity Female 12/05/2020 12:09 PM CDT Sexual Orientation Not on file Last Filed Vital Signs Vital Sign Reading Time Taken Comments Blood Pressure 117/81 03/27/2023 8:42 AM NURSE EXTERN Pulse 94 03/27/2023 8:42 AM NURSE EXTERN Temperature 36.2 ??C (97.2 ??F) 03/27/2023 8:42 AM CS T Respiratory Rate 16 03/12/2023 8:34 AM NURSE EXTERN Oxygen Saturation 98% 03/27/2023 8:42 AM NURSE EXTERN Inhaled Oxygen Concentration - - Weight 95.8 kg (211 lb 4.8 oz) 03/27/2023 8:42 A M NURSE EXTERN Height 169.4 cm (5' 6.69) 03/27/2023 8:42 AM CS T Body Mass Index 33.4 03/27/2023 8:42 AM NURSE EXTERN Plan of Treatment Not on file Insurance [facility] Care Teams Rn Relief Charge Relationship Specialty Start Date End Date Elsewhere, Pcp PCP - General Internal Medicine 01/07/22
--- OUTSIDE RECORDS SUMMARY | 2023-12-21 11:55 | XMS_ITS ---
Author Organization [facility] Address [address] [place] [address] Care Team Providers Care Event Organizer Name Role Phone Unavailable Unavailable Unavailable Surgery Details Not on file Complications Check Surgery Details section. Procedure Estimated Blood Loss Check Surgery Details section. Procedure Findings Check Surgery Details section. Procedure Specimens Taken Check Surgery Details section.
--- OUTSIDE RECORDS SUMMARY | 2023-12-21 11:55 | XMS_ITS | Encounter Summary ---
Author Organization [facility] Address [address] [place] [address] Care Team Providers Care Manager Of Corporate Communications Name Role Phone Unavailable Primary Care Provider Unavailabl e Reason for Visit * Procedure/Equipment (Routine) - Incomplete Specialty Diagnoses / Procedures Referred By Tania beckett Referred To Contact Diagnoses COVID-19 Cough, unspecified type Procedures XR Chest 2 Views Carla Hudson PA-C [address] [place] [address] Referral ID Status Reason Start Date Expiration Date V isits Requested Visits Authorized [id number] Incomplete 11/17/2023 02/15/2025 1 1 Encounter Details Date Type Department Care Team (Latest Contact Info) Description 11/17/2023 12:00 PM CDT Ancillary Procedure [facility] [address] [facility] [phone] Carla Hudson PA-C [address] [place] [address] COVID-19; Cough, unspecified type Social History Tobacco Use Types Packs/Day Years Used Date Smoking Tobacco: Never Sex and Gender Information Value Date Recorded Sex Assigned at Not on file Gender Identity Not on file Sexual Orientation Not on file documented as of this encounter Plan of Treatment Not on file documented as of this encounter Procedures Procedure Name Priority Date/Time Associated Diagnosis Comments XR CHEST 2 VIEWS STAT 11/17/2023 12:0 7 PM CDT COVID-19 Cough, unspecified type documented in this encounter Results * XR Chest 2 [...] or pleural effusion. Bonythorax is unremarkable. Carla Hudson PA-C RAD GD documented in this encounter Visit Diagnoses Diagnosis COVID-19 Cough, unspecified type documented in this encounter
--- OUTSIDE RECORDS SUMMARY | 2023-12-21 11:55 | XMS_ITS | Referral Summary ---
Author Organization [facility] Address [address] [place] [address] Care Team Providers Care Compatibility Test Engineer Name Role Phone Teena Hargrove MD Primary Care Provider [phone] Seble Dickinson PA-C Unavailable [phone] Allergies Active Allergy Reactions Criticality Noted Date [...] Active VANCE-D 12 HOUR## 60-120 MG OR [id number]:Allerg ic rhinitis, cause unspecified 1 TABLET TWICE [...] 108.9 kg (240 lb) 03/17/2020 12:13 PM LEAD INSTRUCTOR/FLIGHT ATTENDANT Height 167.6 cm (5' 6) 02/19/2019 2:39 PM LEAD INSTRUCTOR/FLIGHT ATTENDANT Body Mass Index 38.74 02/19/2019 2:39 PM LEAD INSTRUCTOR/FLIGHT ATTENDANT Plan of Treatment Not on file Procedures Procedure Name Priority Date/Time Associated Diagnosis Comments LIPID PROFILE Routine 02/01/2023 10:25 AM LEAD INSTRUCTOR/FLIGHT ATTENDANT Encounter for screening for lipoid disorders GYNECOLOGIC CYTOLOGY Routine 02/01/2023 10:00 AM LEAD INSTRUCTOR/FLIGHT ATTENDANT Encounter for screening for malignant neoplasm of cervix BASIC METABOLIC PANEL STAT 05/25/2020 12:50 AM CDT from Last 3 Months or Most Recently Relevant to Health Maintenance Results * (ABNORMAL) Lipid Profile (02/01/2023 10:25 AM LEAD INSTRUCTOR/FLIGHT ATTENDANT) Cholesterol 198 <200 mg/dL 02/01/2023 2:46 PM LEAD INSTRUCTOR/FLIGHT ATTENDANT [facility] Triglycerides 102 <150 mg/dL 02/01/2023 2:46 PM LEAD INSTRUCTOR/FLIGHT ATTENDANT [facility] Direct Measure HDL 53 >=50 mg/dL 02/01/2023 2:46 PM LEAD INSTRUCTOR/FLIGHT ATTENDANT [facility] LDL Cholesterol Calculated 125(H) <=100 mg/dL 02/01/2023 2:46 PM LEAD INSTRUCTOR/FLIGHT ATTENDANT [facility] Non HDL Cholesterol 145(H) <130 mg/dL 02/01/2023 2:46 PM LEAD INSTRUCTOR/FLIGHT ATTENDANT [facility] Blood TOPOGRAPHY UNKNOWN / Unknown Client Draw / Unknown 02/01/2023 10:25 AM LEAD INSTRUCTOR/FLIGHT ATTENDANT 02/01/2023 1:09 PM LEAD INSTRUCTOR/FLIGHT ATTENDANT Narrative [facility] - 02/01/2023 2:46 PM LEAD INSTRUCTOR/FLIGHT ATTENDANT Cholesterol Desirable: ??<200 mg/dL Triglycerides Normal: ??Less [...] Hernandez PA-C LAB - BLOOD [facility] [address] [facility] [address], [address] [address], [facility] [phone] * Gynecologic Cytology (PAP) (02/01/2023 10:00 AM LEAD INSTRUCTOR/FLIGHT ATTENDANT) Interpretation Negative for Intraepithelial Lesion or Malignancy (NILM) 02/03/2023 9:28 AM LEAD INSTRUCTOR/FLIGHT ATTENDANT [facility] Comment Papanicolaou Test Limitations: Cervical cytology is a screening test with limited sensitivity, and regular screening is critical for cancer prevention. Pap tests are primarily effective for the diagnosis/prevent ion of squamous cell carcinoma, not adenocarcinoma or other cancers. 02/03/2023 9:28 AM LEAD INSTRUCTOR/FLIGHT ATTENDANT [facility] Specimen Adequacy Satisfactory for evaluation, endocervical/wilkes sformation zone component present 02/03/2023 9:28 AM LEAD INSTRUCTOR/FLIGHT ATTENDANT [facility] Clinical Information none 02/03/2023 9:28 AM LEAD INSTRUCTOR/FLIGHT ATTENDANT [facility] LMP/Menopause Date 01-24-2023 02/03/2023 9:28 AM LEAD INSTRUCTOR/FLIGHT ATTENDANT [facility] Reflex Testing Yes regardless of result 02/03/2023 9:28 AM LEAD INSTRUCTOR/FLIGHT ATTENDANT [facility] Previous Abnormal? No 02/03/2023 9:28 AM LEAD INSTRUCTOR/FLIGHT ATTENDANT [facility] Previous Abnormal Diagnosis NILM with NEG HPV 02/03/2023 9:28 AM LEAD INSTRUCTOR/FLIGHT ATTENDANT [facility] Performing Labs The technical component of this testing was completed at [facility] 02/03/2023 9:28 AM LEAD INSTRUCTOR/FLIGHT ATTENDANT [facility] Brushing CERVIX UTERI STRUCTURE / Unknown 02/01/2023 10:00 AM LEAD INSTRUCTOR/FLIGHT ATTENDANT 02/01/2023 1:15 PM LEAD INSTRUCTOR/FLIGHT ATTENDANT [facility] [address] [facility], [address] [place] [address], [facility] [phone] * (ABNORMAL) Basic metabolic panel (05/25/2020 12:50 AM CDT) Sodium 147(H) 133 - 144 mmol/L 05/25/2020 1:26 AM [facility] Comment:Reviewed, acceptable Potassium 3.6 3.4 - 5.3 mmol/L 05/25/2020 1:26 AM [facility] Chloride 110(H) 94 - 109 mmol/L 05/25/2020 1:26 AM [facility] Carbon Dioxide 25 20 - 32 mmol/L 05/25/2020 1:26 AM [facility] Anion Gap 12 3 - 14 mmol/L 05/25/2020 1:26 AM [facility] Glucose 84 70 - 99 mg/dL 05/25/2020 1:26 AM [facility] Urea Nitrogen 10 7 - 30 mg/dL 05/25/2020 1:26 AM [facility] Creatinine 0.57 0.52 - 1.04 mg/dL 05/25/2020 1:26 AM [facility] GFR Estimate >90 >60 mL/min/{1. 73_m2} 05/25/2020 1:26 AM [facility] Comment: Non GFR Calc Starting 02/22/2018, serum creatinine based estimated GFR (eGFR) will be calculated using the Chronic Kidney Disease Epidemiology Collaboration (CKD-EPI) equation. GFR Estimate If Black >90 >60 mL/min/{1. 73_m2} 05/25/2020 1:26 AM [facility] Comment: GFR Calc Starting 02/22/2018, serum creatinine based estimated GFR (eGFR) will be calculated using the Chronic Kidney Disease Epidemiology Collaboration (CKD-EPI) equation. Calcium 9.3 8.5 - 10.1 mg/dL 05/25/2020 1:26 AM [facility] Blood specimen (specimen) 05/25/2020 12:50 AM CDT 05/25/2020 1:00 AM CDT Trevon Lr MD LAB - BLOOD ORDERABL [facility] [address] [place] [address], [facility] [phone] from Last 3 Months or Most Recently Relevant to Health Maintenance Care Teams Compatibility Test Engineer Relationship Specialty Start Date End Date Teena Hargrove MD PCP - General perinatal instructor 03/17/20 Seble Dickinson PA-C [address] [place] [address] Physician University Controller Urology 08/24/22
[2023-12-21 15:34] LABS: Bacterial Vaginosis* Negative (Negative); Candida glab/krus NOT DETECTED (No Detected); Candida species NOT DETECTED (No Detected); Trichomonas vaginalis NOT DETECTED (No Detected)
== END 2023-12-21 11:49 | disposition home or self-care (01) ==
LOC: NFLDREF 11:49
PROVIDERS: PCP Family Medicine; Visit Provider Registered Nurse
DX: N89.8 Other specified noninflammatory disorders of vagina (principal)
CPT/HCPCS: 81513; 87086; 87481; 87661

== ENCOUNTER 2024-02-12 15:17 | Emergency (ER) | payer OTHER, SELFPAY ==
[2024-02-12 15:30] VITALS: BP 141/86; PULSE 82; RESP 18; TEMP 36.6; O2SAT 100; BMI 28.6
--- NOTE | 2024-02-12 15:48 | ED_ITS ---
HPI - General Adult General Chief complaint: Unspecified Complaint, Adult Stated complaint: Lethargic, chest pains Time Seen by Provider: 02/12/24 15:19 History of Present Illness HPI narrative: Patient is a 43-year-old woman comes in today with palpitations which is chronic for her as she has history of PVCs as well as severe pain in the right ear. She has had no fevers no chills no night sweats. She was recently treated with prednisone for chronic sinusitis. She has no drainage from her right ear and has no change in her auditory acuity. No other HEENT symptoms. Related Data Home Medications ?Medication ?Instructions ?Recorded ?Confirmed spironolactone 50 mg tablet 50 mg PO QDAY 12/23/21 01/22/24 B-[place] PO QDAY 11/11/22 01/22/24 lactobacillus combination no.4 3 3,000 mmu cells PO QDAY 11/11/22 01/22/24 billion cell capsule (Probiotic) magnesium glycinate mg PO 11/11/22 01/22/24 turmeric root extract 500 mg 500 mg PO QDAY 11/11/22 01/22/24 capsule polyethylene glycol 3350 17 4 g PO ONCE 04/09/23 01/22/24 gram/dose oral powder (Miralax) esomeprazole magnesium 40 mg 40 mg PO Q12H 04/22/23 01/22/24 capsule,delayed release (Nexium) linaclotide 72 mcg capsule 72 mcg PO QAM 02/08/24 02/08/24 (Linzess) prednisone 10 mg tablet mg PO 02/08/24 02/08/24 Previous Rx's ?Medication ?Instructions ?Recorded hydroxyzine HCl 25 mg tablet See Rx Instructions .Route 10/28/22 .COMPLEX #60 ea estradiol 10 mcg vaginal tablet 10 mcg vaginal QDAY #24 tabs 10/18/23 (Vagifem) gabapentin 300 mg capsule 300 mg PO 3XD #270 ea 10/20/23 alprazolam 0.5 mg tablet 0.5 mg PO BID PRN anxiety #20 tabs 12/27/23 fluconazole 150 mg tablet 150 mg PO Q3D 2 doses #2 tabs 01/22/24 Allergies Allergy/AdvReac Type Severity Reaction Status Date / Time No Known Drug Allergies Allergy Verified 02/08/24 13:37 Review of Systems Status of ROS: Reports: 10 or more systems reviewed and unremarkable except as noted in History and below [facility] Medical History Bacterial vaginitis ?N76.0 - Acute vaginitis (ICD-10) ?B96.89 - Other specified bacterial agents as the cause of diseases classified elsewhere (ICD-10) Urethritis ?N34.2 - Other urethritis (ICD-10) Radicular pain in left arm ?M79.2 - Neuralgia and neuritis, unspecified (ICD-10) Vulvovaginal pain ?R10.2 - Pelvic and perineal pain (ICD-10) Dysuria ?R30.0 - Dysuria (ICD-10) Yeast vaginitis ?B37.31 - Acute candidiasis of vulva and vagina (ICD-10) Surgical History Status post tubal ligation ?Z98.51 - Tubal ligation status (ICD-10) Status post ?Z98.891 - History of uterine scar from previous surgery (ICD-10) Family History Sister Gallbladder disease Social History Narrative: Employes in [employer]. . Nonsmoker. Alcohol use: 3-4 per year Smoking Status: Never smoker How often do you have a drink containing alcohol: never AUDIT-C Alcohol total score: 0 Non-prescribed substance use: denies use Exam Narrative: Exam Narrative: EXAM GENERAL: Patient appears comfortable and well. EYES: No scleral icterus. ENT: Dullness erythema noted in the right ear tympanic membrane. THYROID: no thyroid nodules or thyromegaly. LYMPH: No supraclavicular or cervical lymphadenopathy. SKIN: Visible skin seen during exam normal or with benign process only. EXT: No dependent lower extremity pedal edema. HEART: Regular rate and rhythm with no murmurs, rubs, or gallops. LUNGS: Clear to auscultation bilaterally with no crackles or wheezes. ABD: Soft, non tender, non distended. PSYCH: Good eye contact, speech is not pressured. Const: Vital Signs, click to edit/add: Vital Signs - 24 hr 02/12/24 15:30 Temperature 97.8 F Pulse Rate [Pulse Oximeter] 82 Respiratory Rate 18 Blood Pressure [Le ft Upper Arm] 141/86 H Pulse Oximetry 100 Oxygen Delivery Me thod Room Air Course Course ED Course: Patient seen and examined. EKG personally reviewed shows PVCs with no other abnormalities. At this time did treated with Z-Tiago as directed and we agreed no further workup as the otitis media seems to explain her symptoms. She will take a Z-Tiago as directed follow-up with her primary physician rotate Tylenol Motrin and get plenty of rest plenty fluids. Vital Signs Vital signs: Initial Vital Signs Temperature 97.8 F 02/12/24 15:30 Temperature Source Temporal Artery Scan 02/12/24 15:30 Pulse Rate 82 02/12/24 15:30 Respiratory Rate 18 02/12/24 15:30 Blood Pressure 141/86 H 02/12/24 15:30 Blood Pressure Mean 104 02/12/24 15:30 Blood Pressure Position Supine 02/12/24 15:30 Pulse Oximetry 100 02/12/24 15:30 Oxygen Delivery Method Room Air 02/12/24 15:30 Vital Signs Temperature 97.8 F 02/12/24 15:30 Pulse Rate 82 02/12/24 15:30 Respiratory Rate 18 02/12/24 15:30 Blood Pressure 141/86 H 02/12/24 15:30 Pulse Oximetry 100 02/12/24 15:30 Oxygen Delivery Method Room Air 02/12/24 15:30 Temperature 97.8 F 02/12/24 15:30 Pulse Rate 82 02/12/24 15:30 Respiratory Rate 18 02/12/24 15:30 Blood Pressure 141/86 H 02/12/24 15:30 Pulse Oximetry 100 02/12/24 15:30 Oxygen Delivery Method Room Air 02/12/24 15:30 Medical Decision Making MDM Narrative Medical decision making narrative: As above Discharge Plan Discharge Clinical Impression: Otitis media Patient Disposition: Home, Self-Care Condition: Stable Instructions: Ear Infection (ED) Additional Instructions: Z-Tiago as directed Tylenol Motrin Rest Fluids Follow-up with your doctor as needed. Activity Level: No Restrictions Discharge Diet: Regular Prescriptions: No Action magnesium glycinate 100 mg magnesium capsule PO B-[place] PO QDAY Probiotic 3 billion cell capsule 3,000 mmu cells PO QDAY Rx Instructions: administer with a meal turmeric root extract 500 mg capsule 500 mg PO QDAY fluconazole 150 mg tablet 150 mg PO Q3D Qty: 2 0RF prednisone 10 mg tablet PO Linzess 72 mcg capsule 72 mcg PO QAM spironolactone 50 mg tablet 50 mg PO QDAY polyethylene glycol 3350 [Miralax] 17 gram/dose powder 4 g PO ONCE esomeprazole magnesium [Nexium] 40 mg capsule,delayed release(DR/EC) 40 mg PO Q12H hydroxyzine HCl 25 mg tablet See Rx Instructions .ROUTE .COMPLEX Qty: 60 3RF Dose Instruction: TAKE 1 TABLET (25 MG TOTAL) BY MOUTH 2 (TWO) TIMES A DAY NEEDED FOR ANXIETY. Rx Instructions: TAKE 1 TABLET (25 MG TOTAL) BY MOUTH 2 (TWO) TIMES A DAY NEEDED FOR ANXIETY. estradiol [Vagifem] 10 mcg tablet 10 mcg vaginal QDAY Qty: 24 2RF Rx Instructions: insert vaginally twice per week gabapentin 300 mg capsule 300 mg PO 3XD Qty: 270 0RF alprazolam 0.5 mg tablet 0.5 mg PO BID PRN (Reason: anxiety) Qty: 20 0RF Follow Up/Referrals: Lakhwinder Lau MD [Primary Care Provider] - Stand Alone Forms: [facility] Info Instructions
--- OUTSIDE RECORDS SUMMARY | 2024-02-12 16:06 | XMS_ITS | Clinical Summary ---
Author Organization [facility] Address [address] [place] [address] Care Team Providers Care Sld Inclusion Teacher Name Role Phone Unavailable Primary Care Provider [...] for each transition of care or referral. [employer] Allergies No known active allergies Medications Medication [...] TABS vaginal tablet Insert vaginally. 06/26/2023 Active amoxicillin-clavulan ate (AUGMENTIN) 875-125 mg per tablet Take 1 Tablet by mouth two times a day. 01/22/2024 Active LINZESS 72 MCG CAPS Take 1 Capsule (72 mcg) by mouth daily. 01/12/2024 Active amoxicillin-clavulan ate (AUGMENTIN) 875-125 mg per tablet Take 1 Tablet by mouth every 12 hours for 4 days. Take with food or milk. 8 Tablet 01/31/2024 02/04/2024 Active Problems No known active problems Encounters Date Type Department Care Team Description 01/31/2024 8:20 AM MUSIC ENGRAVER Office Visit [place] [address] [facility] [id number] [place] [phone] Jaquelin Garcia MD Acute non-recurrent sinusitis, unspecified location; Allergic rhinitis, unspecified seasonality, unspecified trigger 11/17/2023 12:00 PM CDT Ancillary Procedure [facility] [id number] [place] [phone] Carla Hudson PA-C COVID-19; Cough, unspecified type 11/17/2023 11:20 AM CDT Office Visit [place] [address] [facility] [address] [place] [phone] Carla Hudson PA-C COVID-19; Sinus congestion; Cough, unspecified type from Last 3 Months Social History Tobacco Use Types Packs/Day Years Used Date Smoking Tobacco: Never Tobacco Cessation:Counseling Given: Not Answered Sex and Gender Information Value Date Recorded Sex Assigned at Not on file Gender Identity Not on file Sexual Orientation Not on file Last Filed Vital Signs Vital Sign Reading Time Taken Comments Blood Pressure 125/85 01/31/2024 8:17 AM MUSIC ENGRAVER Pulse 65 01/31/2024 8:17 AM MUSIC ENGRAVER Temperature 36.3 C (97.3 F) 01/31/2024 8:17 AM MUSIC ENGRAVER Respiratory Rate 16 01/31/2024 8:17 AM MUSIC ENGRAVER Oxygen Saturation 100% 01/31/2024 8:17 AM MUSIC ENGRAVER Inhaled Oxygen Concentration - - Weight 83.5 [...] on patient's age to complete this topic Infant RSV Aged Out No longer eligi ble [...] 7 PM CDT COVID-19 Cough, unspecified type ANATOMICAL PATH LIQUID BASED Routine 2003 12:13 PM CDT from Last 3 Months or Most Recently Relevant to Health Maintenance Results * XR Chest 2 Views (11/17/2023 12:07 PM CDT) Anatomical Region Laterality Modality Chest, Lung Digital Radiogra phy 11/17/2023 11:5 7 AM CDT Impressions 11/17/2023 12:10 PM CDT COMPARISON: None. FINDINGS: 2 views. Normal cardiomediastinal silhouette and pulmonary vasculature. Lungs appear clear. No pneumothorax or pleural effusion. Bony thorax is unremarkable. Narrative Procedure Note Mirna Padgett MD - 11/17/2023 IMPRESSION COMPARISON: None. FINDINGS: 2 views. Normal cardiomediastinal silhouette and pulmonaryvasculature. Lungs appear clear. No pneumothorax or pleural effusion. Bonythorax is unremarkable. Carla Hudson PA-C RAD GD * Pap Smear (2003 12:13 PM CDT) PAP Smear Liquid Based SEE TEXT No normal range HP CONVERSION Comment: Patient: HENNY CHANEY CERVICAL CYTOLOGY REPORT Pathology # [id number] Date Obtained: Date Received: CYTOLOGIC IMPRESSION: Negative for intraepithelial lesion or malignancy. ADDITIONAL DATA LMP: 08-26-03 CLINICAL HIST PREV NORM 6-03, NEG HX LIQUID BASED PAP CERVICAL SPECIMEN ADEQUACY: Satisfactory. ENDOCERVICAL CELLS: Present. Verified 09/15/03 by: SN (electronic signature) 2003 12:1 3 PM CDT Duarte Mckeon MD LAB_1 HP CONVERSION from Last 3 Months or Most Recently Relevant to Health Maintenance
--- OUTSIDE RECORDS SUMMARY | 2024-02-12 16:06 | XMS_ITS | Encounter Summary ---
Author Organization [facility] Address [address] [address] Care Team Providers Care Director Of Sustainability Name Role Phone Unavailable Primary Care Provider Unavailabl e Reason for Visit * Reason Comments SINUS PAIN/PRESSURE Encounter Details Date Type Department Care Team ([facility] st Contact Info) Description 01/31/2024 8:20 AM AVIONICS MECHANIC Office Visit [place] [address] [facility] [address] [place] [phone] Jaquelin Garcia MD [address] [place], [place] [address] Acute non-recurrent sinusitis, unspecified location; Allergic rhinitis, unspecified seasonality, unspecified trigger Social History Tobacco Use Types Packs/Day Years Used Date Smoking Tobacco: Never Sex and Gender Information Value Date Recorded Sex Assigned at Not on file Gender Identity Not on file Sexual Orientation Not on file documented as of this encounter Last Filed Vital Signs Vital Sign Reading Time Taken Comments Blood Pressure 125/85 01/31/2024 8:17 AM AVIONICS MECHANIC Pulse 65 01/31/2024 8:17 AM AVIONICS MECHANIC Temperature 36.3 C (97.3 F) 01/31/2024 8:17 AM AVIONICS MECHANIC Respiratory Rate 16 01/31/2024 8:17 AM AVIONICS MECHANIC Oxygen Saturation 100% 01/31/2024 8:17 AM AVIONICS MECHANIC Inhaled Oxygen Concentration - - Weight - - Height - - Body Mass Index - - documented in this encounter Patient Instructions * Patient Instructions* Jaquelin Garcia MD - 01/31/2024 8:20 AM AVIONICS MECHANIC Do another home test if no menses in another week or so. Keep appt with primary care provider for the . Ok to take otc decongestant. Keep well hydrated. NICS MECHANIC * Attachments The following attachments cannot be sent through Care Everywhere. * Sinusitis: Acute (Citizen Of [place]) documented in this encounter Progress Notes * Jaquelin Garcia MD - 01/31/2024 8:[address] [facility] Patient: Henny Rivas Date of : 1980 (43 y.o.) Nursing Notes: Greg Wolf RN 01/31/24 0816 Signed Pt states she's on week 3 with sinus issues. Pt started augmentin last Wednesday that was prescribed thru [facility]. Still feeling rundown, sinus pressure, nausea. States she's a week late with her period but has had her tubes removed. Patient requests an excuse letter for work/school: No Subjective Chief Complaint: Chief Complaint Patient presents with SINUS PAIN/PRESSURE History of Present Illness: Henny Rivas is a 43 y.o.female. Patient complains of possible sinusitis. Has been on augmentin for a week. Cough productive of green mucus until she started the augmentin and that is better but the sinus pressure and fatigue continue. No fever. Was given 10 days of Augmentin. Has nausea as well and has never had that with augmentin. No nasal drainage but ears hurt and face hurts still. Adverse Drug Reactions: Patient has no known allergies. Medications: ALPRAZolam, amoxicillin-clavulanate, esomeprazole, estradiol, gabapentin, hydrOXYzine HCl, linaCLOtide, and spironolactone Social History: Social History Tobacco Use Smoking status: Never Smokeless tobacco: Not on file Substance Use Topics Alcohol use: Not on file Drug use: Not on file Review of Systems: Review of Systems is negative except as noted above. Objective Physical Exam: Vital Signs: BP 125/85 (BP Location: Right Arm, BP Cuff Size: Regular - Long) Pulse 65 Temp 36.3 ??C (97.3 ??F) (Oral) Resp 16 SpO2 100% General: Appears alert and non distressed, She appears non toxic. Blood pressure 125/85, pulse 65, temperature 36.3 ??C (97.3 ??F), temperature source Oral, resp. rate 16, SpO2 100%. HEENT: Head normocephalic and atraumatic Eyes Normal, conjunctiva normal without injection. PERRL. Ears: Right TM normal Left TM normal, external auditory canals without drainage. Nasal mucosa is boggy but not erythematous, it is pale Throat: mild erythema, no peritonsillar masses or swelling. Neck: Soft, without cervical lymphadenopathy, no meningeal signs. Chest: normal air entry, no rhonchi and wheezes. Heart: HS normal with no murmurs. Laboratory Testing: No results found for this visit on 01/31/24. Radiology: No results found. MDM: She seems to have a partially treated sinusitis. Extended her course of Augmentin as she likely needs a longer course. She did a home preg test this am and it was negative so likely she is not igor given tubal but recommended a repeat test if she continues to be without menses. Interventions: Orders Placed This Encounter amoxicillin-clavulanate (AUGMENTIN) 875-125 mg per tablet Assessment 1. Acute non-recurrent sinusitis, unspecified location 2. Allergic rhinitis, unspecified seasonality, unspecified trigger Plan Patient Discharge Medications & Instructions: Medications Prescribed this Visit Disp Refills Start End amoxicillin-clavulanate (AUGMENTIN) 875-125 mg per tablet 8 Tablet 0 01/31/2024 02/04/2024 Take 1 Tablet by mouth every 12 hours for 4 days. Take with food or milk. Oral Patient Instructions Do another home test if no menses in another week or so. Keep appt with primary care provider for the . Ok to take otc decongestant. Keep well hydrated. Jaquelin Garcia MD NICS MECHANIC documented in this encounter Nursing Notes * Greg Wolf, JAY - 01/31/2024 8:20 AM CST Pt states she's on week 3 with sinus issues. Pt started augmentin last Wednesday that was prescribed thru [facility]. Still feeling rundown, sinus pressure, nausea. States she's a week late with her period but has had her tubes removed. Patient requests an excuse letter for work/school: No NICS MECHANIC documented in this encounter Plan of Treatment Not on file documented as of this encounter Visit Diagnoses Diagnosis Acute non-recurrent sinusitis, unspecified location Allergic rhinitis, unspecified seasonality, unspecified trigger documented in this encounter
--- OUTSIDE RECORDS SUMMARY | 2024-02-12 16:06 | XMS_ITS | Referral Summary ---
Author Organization [facility] Address [address] [place] [address] Care Team Providers Care Newspaper Manager Name Role Phone Elsewhere, Pcp Primary Care Provider Unavailabl e Source Comments Patient records contain information from all sites at [facility]. For routine questions regarding patient records, call [phone] during business hours, M-F 8:00 AM - 5:00 PM Central Time. Record requests for emergency care only can be directed to [phone] at any time.[facility] Allergies No known active allergies Medications * [...] any clubs o r organizations such as judaism groups, unions, fraternal or athletic groups, or [...] 27) 3 04/23 Nutrition Answer Date Recorded On average, how many serving s of [...] PM CDT Legal Sex Female 3:24 PM SHOE SPRAYER Gender Identity Female 12/05/2020 12:09 PM CDT Sexual Orientation Not on file Last Filed Vital Signs Vital Sign Reading Time Taken Comments Blood Pressure 117/81 03/27/2023 8:42 AM SHOE SPRAYER Pulse 94 03/27/2023 8:42 AM SHOE SPRAYER Temperature 36.2 C (97.2 F) 03/27/2023 8:42 AM SHOE SPRAYER Respiratory Rate 16 03/12/2023 8:34 AM SHOE SPRAYER Oxygen Saturation 98% 03/27/2023 8:42 AM SHOE SPRAYER Inhaled Oxygen Concentration - - Weight 95.8 kg (211 lb 4.8 oz) 03/27/2023 8:42 A M SHOE SPRAYER Height 169.4 cm (5' 6.69) 03/27/2023 8:42 AM CS T Body Mass Index 33.4 03/27/2023 8:42 AM SHOE SPRAYER Plan [place] [id number] [employer] Care Teams Newspaper Manager Relationship Specialty Start Date End Date Elsewhere, Pcp PCP - General Internal Medicine 01/07/22
--- OUTSIDE RECORDS SUMMARY | 2024-02-12 16:06 | XMS_ITS | Encounter Summary ---
Author [facility] Address [address], [place] [address] Care Team Providers Care Weight Yardage Checker Name Role Phone Unavailable Primary Care Provider Unavailabl e Reason for Referral * Procedure/Equipment (Routine) - Incomplete Specialty Diagnoses / Procedures Referred By Tania beckett Referred To Contact Diagnoses COVID-19 Cough, unspecified type Procedures XR Chest 2 Views Carla Hudson PA-C [address] [place] [address] Referral ID Status Reason Start Date Expiration Date V isits Requested Visits Authorized [id number] Incomplete 11/17/2023 02/15/2025 1 1 Reason for Visit * Reason Comments Cough CONGESTION, SINUS Encounter Details Date Type Department Care Team (Late st Contact Info) Description 11/17/2023 11:20 AM CDT Office Visit [place] [address] [facility] [address] [place] [address] Carla Hudson PA-C [address] [place], [place] [id number] COVID-19; Sinus congestion; Cough, unspecified type Social [...] 69 11/17/2023 11:32 AM CDT Temperature 36.3 C (97.4 F) 11/17/2023 11:32 AM CDT Respiratory Rate 18 11/17/2023 11:32 AM CDT [...] a decongestant as needed. May also use [id number] cough suppressant of choice. We discussed contagiousness. [...]
--- OUTSIDE RECORDS SUMMARY | 2024-02-12 16:06 | XMS_ITS | Clinical Summary ---
Author Organization [facility] Address [address] [place] [address] Care Team Providers Care Telegraph Messenger Name Role Phone Elsewhere, Pcp Primary Care Provider Unavailabl e Source Comments Patient records contain information from all sites at [facility]. For routine questions regarding patient records, call [phone] during business hours, M-F 8:00 AM - 5:00 PM Central Time. Record requests for emergency care only can be directed to [phone] at any time.[facility] Allergies No known active allergies Medications * [...] How often do you attend chur or anabaptism services? 1 to 4 times per year [...] PHQ-2 Score 0 12/10/2021 [facility] [place] [facility] Occupat ional Health - Occupational Stress [...] PM CDT Legal Sex Female 3:24 PM DENTAL APPLIANCE MECHANIC Gender Identity Female 12/05/2020 12:09 PM CDT Sexual Orientation Not on file Last Filed Vital Signs Vital Sign Reading Time Taken Comments Blood Pressure 117/81 03/27/2023 8:42 AM DENTAL APPLIANCE MECHANIC Pulse 94 03/27/2023 8:42 AM DENTAL APPLIANCE MECHANIC Temperature 36.2 C (97.2 F) 03/27/2023 8:42 AM DENTAL APPLIANCE MECHANIC Respiratory Rate 16 03/12/2023 8:34 AM DENTAL APPLIANCE MECHANIC Oxygen Saturation 98% 03/27/2023 8:42 AM DENTAL APPLIANCE MECHANIC Inhaled Oxygen Concentration - - Weight 95.8 kg (211 lb 4.8 oz) 03/27/2023 8:42 A M DENTAL APPLIANCE MECHANIC Height 169.4 cm (5' 6.69) 03/27/2023 8:42 AM CS T Body Mass Index 33.4 03/27/2023 8:42 AM DENTAL APPLIANCE MECHANIC Plan of Treatment Health Maintenance Due Date Last Done Comments HIV Screening 1980 Hepatitis C Screening 1980 Hepatitis B Vaccines (1 of 3 - 19+ 3-dose series) 2000 HPV Vaccines (2 - 3-dose series) 02/06/2008 01/09/2008, 01/09/2008 Depression Screening (Annual PHQ-2) 03/08/2023 Mammogram 07/02/2023 07/01/2022, 08/07, 08/06/2021 (Performed elsewhere), Additional history exists COVID-19 Vaccine ( - 2023- season) 2023 04/02/2022, 02/26/2021, 06/27/2020, Additional history exists Influenza Vaccine (#1) 2023 , 12/19/2021, 02/19/2021, Additional history exists Cervical/Vaginal Cancer Screening 02/01/2026 02/01/2023, 01/26/2022, 01/23/2021 (Performed elsewhere) Lipid (Cholesterol) Screening 02/02/2028 02/01/2023, 01/26/2022 DTaP,Tdap,and Td Vaccines (5 - Td or Tdap) 07/23/2030 07/23/2020, 11/22/2017, 01/15/2014, Additional history exists IPV Vaccines Aged Out No longer eligi ble based on patient's age to complete this topic Pneumococcal vaccine (0-64 years) Aged Out No longer eligible based on patient's age [place] [id number] [facility] Address: [facility] [id number] [address] Care Teams Telegraph Messenger Relationship Specialty Start Date End Date Elsewhere, Pcp PCP - General Internal Medicine 01/07/22
--- OUTSIDE RECORDS SUMMARY | 2024-02-12 16:06 | XMS_ITS ---
Author Organization [facility] Address [address] [place] [address] Care Team Providers Care Process Developer Name Role Phone Unavailable Unavailable Unavailable Surgery Details Not on file Complications Check Surgery Details section. Procedure Estimated Blood Loss Check Surgery Details section. Procedure Findings Check Surgery Details section. Procedure Specimens Taken Check Surgery Details section.
--- OUTSIDE RECORDS SUMMARY | 2024-02-12 16:06 | XMS_ITS | Clinical Summary ---
Author Organization [facility] Address [address] [place] [address] Care Team Providers Care Staff Physical Therapist Name Role Phone Teena Hargrove MD Primary Care Provider [phone] Seble Dickinson PA-C Unavailable Allergies Active Allergy Reactions Criticality Noted Date Comments No Known Drug Allergy 04/09/2004 Medications ALEVE 220 MG OR TABS 1 TABLET EVERY 12 HOURS NEEDED Active ASPIRIN 325 MG OR TBEC 2 TABLET EVERY 4 HOURS NEEDED Active EXCEDRIN EXTRA STRENGTH 250-250-65 MG OR TABS 2 TABLETS EVERY 6 HOURS NEEDED Active NASONEX 50 MCG/ACT NA SUSPIndications:A llergic rhinitis, cause unspecified 1-2 puff in each nostril once daily (may subst flonase if needed) 1 8 Active VANCE-D 12 HOUR## 60-120 MG OR [id number]:A llergic rhinitis, cause unspecified 1 TABLET TWICE DAILY ON EMPTY STOMACH 30 8 Active ORTHO EVRA 150-20 MCG/24HR TD PTWKIndications:C ontraception APPLY ONE PATCH EVERY WEEK FOR 3 WEEKS THEN OFF FOR ONE WEEK 3 MONTHS 1 YEAR 9 Active Progesterone Micronized (PROGESTERONE PO) Take by mouth At Bedtime Active Vit-Fe Fumarate-FA ( MULTIVITAMIN W/IRON) 27-0.8 MG tablet Take 1 tablet by mouth daily Active Active Problems Problem Noted Date Diagnosed Date CARDIOVASCULAR SCREENING; LDL GOAL LESS THAN 160 01/05/2010 Migraine 06/10/2006 Overview (12/06/2014): Problem list name updated by automated process. Provider to review Scanty or infrequent menstruation 04/16/2006 Irregular menstrual cycle 04/12/2006 Insomnia 04/12/2006 Overview (12/06/2014): Problem list name updated by automated process. Provider to review Hirsutism 04/12/2006 Allergic rhinitis 04/12/2006 Overview (12/06/2014): Problem list name updated by automated process. Provider to review Obesity 03/27/2006 Overview (12/06/2014): Problem list name updated by automated process. Provider to review Resolved Problems Problem Noted Date Diagnosed Date Resolved Date Allergic state 04/12/2006 04/12/2006 Overview (12/06/2014): Problem list name updated by automated process. [...] School Help Needed Not on file 12/20 Comments No Sex and Gender Information Value Date Recorded Sex Assigned at Not on file Legal Sex Female 4:36 AM DIESEL TRAILER MECHANIC Gender Identity Not on file Sexual Orientation Not on file Last Filed Vital Signs Vital Sign Reading Time Taken Comments Blood Pressure 144/93 08/29/2020 5:42 PM CDT Pulse 86 08/29/2020 5:42 PM CDT Temperature 36.1 C (97 F) 08/29/2020 1:55 PM CDT Respiratory Rate 18 08/29/2020 1:55 PM CDT Oxygen Saturation 98% 08/29/2020 5:42 PM CDT Inhaled Oxygen Concentration - - Weight 108.9 kg (240 lb) 03/17/2020 12:13 PM DIESEL TRAILER MECHANIC Height 167.6 cm (5' 6) 02/19/2019 2:39 PM DIESEL TRAILER MECHANIC Body Mass Index 38.74 02/19/2019 2:39 PM DIESEL TRAILER MECHANIC Plan of Treatment Health Maintenance Due [...] Comments LIPID PROFILE Routine 02/01/2023 10:25 AM DIESEL TRAILER MECHANIC Encounter for screening for lipoid disorders GYNECOLOGIC CYTOLOGY Routine 02/01/2023 10:00 AM DIESEL TRAILER MECHANIC Encounter for screening for malignant neoplasm of cervix BASIC METABOLIC PANEL STAT 05/25/2020 12:50 AM CDT from Last 3 Months or Most Recently Relevant to Health Maintenance Results * (ABNORMAL) Lipid Profile (02/01/2023 10:25 AM DIESEL TRAILER MECHANIC) Cholesterol 198 <200 mg/dL 02/01/2023 2:46 PM DIESEL TRAILER MECHANIC [facility] Triglycerides 102 <150 mg/dL 02/01/2023 2:46 PM DIESEL TRAILER MECHANIC [facility] Direct Measure HDL 53 >=50 mg/dL 02/01/2023 2:46 PM DIESEL TRAILER MECHANIC [facility] LDL Cholesterol Calculated 125(H) <=100 mg/dL 02/01/2023 2:46 PM DIESEL TRAILER MECHANIC [facility] Non HDL Cholesterol 145(H) <130 mg/dL 02/01/2023 2:46 PM DIESEL TRAILER MECHANIC [facility] Blood TOPOGRAPHY UNKNOWN / Unknown Client Draw / Unknown 02/01/2023 10:25 AM DIESEL TRAILER MECHANIC 02/01/2023 1:09 PM DIESEL TRAILER MECHANIC Narrative [facility] - 02/01/2023 2:46 PM DIESEL TRAILER MECHANIC Cholesterol Desirable: <200 mg/dL Triglycerides Normal: Less than 150 mg/dL Borderline High: 150-199 mg/dL High: 200-499 mg/dL Very High: Greater than or equal to 500 mg/dL Direct Measure HDL Female: Greater than or equal to 50 mg/dL Male: Greater than or equal to 40 mg/dL LDL Cholesterol Desirable: <100mg/dL Above Desirable: 100-129 mg/dL Borderline High: 130-159 mg/dL High: 160-189 mg/dL Very High: >= 190 mg/dL Non HDL Cholesterol Desirable: 130 mg/dL Above Desirable: 130-159 mg/dL Borderline High: 160-189 mg/dL High: 190-219 mg/dL Very High: Greater than or equal to 220 mg/dL us Jericho Hernandez PA-C LAB - BLOOD ORDERABLES Final Result [facility] [place] [facility] [address] [facility], [address] [address], [facility] [phone] * Gynecologic Cytology (PAP) (02/01/2023 10:00 AM DIESEL TRAILER MECHANIC) Interpretation Negative for Intraepithelial Lesion or Malignancy (NILM) 02/03/2023 9:28 AM DIESEL TRAILER MECHANIC [facility] Comment Papanicolaou Test Limitations: Cervical cytology is a screening test with limited sensitivity, and regular screening is critical for cancer prevention. Pap tests are primarily effective for the diagnosis/prevent ion of squamous cell carcinoma, not adenocarcinoma or other cancers. 02/03/2023 9:28 AM DIESEL TRAILER MECHANIC [facility] Specimen Adequacy Satisfactory for evaluation, endocervical/wilkes sformation zone component present 02/03/2023 9:28 AM DIESEL TRAILER MECHANIC [facility] Clinical Information none 02/03/2023 9:28 AM DIESEL TRAILER MECHANIC [facility] LMP/Menopause Date 01-24-2023 02/03/2023 9:28 AM DIESEL TRAILER MECHANIC [facility] Reflex Testing Yes regardless of result 02/03/2023 9:28 AM DIESEL TRAILER MECHANIC [facility] Previous Abnormal? No 02/03/2023 9:28 AM DIESEL TRAILER MECHANIC [facility] Previous Abnormal Diagnosis NILM with NEG HPV 02/03/2023 9:28 AM DIESEL TRAILER MECHANIC [facility] Performing Labs The technical component of this testing was completed at [facility] 02/03/2023 9:28 AM DIESEL TRAILER MECHANIC [facility] Brushing CERVIX UTERI STRUCTURE / Unknown 02/01/2023 10:00 AM DIESEL TRAILER MECHANIC 02/01/2023 1:15 PM DIESEL TRAILER MECHANIC us Jericho Hernandez PA-C LAB - BEAKER AP Final R esult [facility] [address] [facility], [address] [address], [facility] [phone] * (ABNORMAL) Basic metabolic panel (05/25/2020 12:50 AM CDT) Sodium 147(H) 133 - 144 mmol/L 05/25/2020 1:26 AM [facility] Comment:Reviewed, acceptable Potassium 3.6 3.4 - 5.3 mmol/L 05/25/2020 1:26 AM [facility] Chloride 110(H) 94 - 109 mmol/L 05/25/2020 1:26 AM [facility] Carbon Dioxide 25 20 - 32 mmol/L 05/25/2020 1:26 AM [facility] Anion Gap 12 3 - 14 mmol/L 05/25/2020 1:26 AM [facility] Glucose 84 70 - 99 mg/dL 05/25/2020 1:26 AM [facility] Urea Nitrogen 10 7 - 30 mg/dL 05/25/2020 1:26 AM [facility] Creatinine 0.57 0.52 - 1.04 mg/dL 05/25/2020 1:26 AM [facility] GFR Estimate >90 >60 mL/min/{1. 73_m2} 05/25/2020 1:26 AM [facility] Comment: Non GFR Calc Starting 02/22/2018, serum creatinine based estimated GFR (eGFR) will be calculated using the Chronic Kidney Disease Epidemiology Collaboration (CKD-EPI) equation. GFR Estimate If Black >90 >60 mL/min/{1. 73_m2} 05/25/2020 1:26 AM [facility] Comment: GFR Calc Starting 02/22/2018, serum creatinine based estimated GFR (eGFR) will be calculated using the Chronic Kidney Disease Epidemiology Collaboration (CKD-EPI) equation. Calcium 9.3 8.5 - 10.1 mg/dL 05/25/2020 1:26 AM [facility] Blood specimen (specimen) 05/25/2020 12:50 AM CDT 05/25/2020 1:00 AM CDT us Trevon Lr MD LAB - BLOOD ORDERABLES Final Re sult [facility] [address] [place] [address], [facility] [phone] from Last 3 Months or Most Recently Relevant to Health Maintenance Insurance [facility] Care Teams Staff Physical Therapist Relationship Specialty Start Date End Date Teena Hargrove MD PCP - General gummed tape press operator 03/17/20 Seble Dickinson PA-C [address] [address] Physician Knitting Supervisor Urology 08/24/22
--- OUTSIDE RECORDS SUMMARY | 2024-02-12 16:06 | XMS_ITS | Referral Summary ---
Author Organization [facility] Address [address] [place] [address] Care Team Providers Care Pack Out Operator Name Role Phone Teena Hargrove MD Primary Care Provider [phone] Seble Dickinson PA-C Unavailable Allergies Active Allergy [...] Active VANCE-D 12 HOUR## 60-120 MG OR [id number]:A llergic rhinitis, cause unspecified 1 TABLET TWICE [...] on file Legal Sex Female 4:36 AM SCREW MACHINE OPERATOR SINGLE SPINDLE Gender Identity Not on file Sexual Orientation [...] 108.9 kg (240 lb) 03/17/2020 12:13 PM SCREW MACHINE OPERATOR SINGLE SPINDLE Height 167.6 cm (5' 6) 02/19/2019 2:39 PM SCREW MACHINE OPERATOR SINGLE SPINDLE Body Mass Index 38.74 02/19/2019 2:39 PM SCREW MACHINE OPERATOR SINGLE SPINDLE Plan of Treatment Not on file Procedures Procedure Name Priority Date/Time Associated Diagnosis Comments LIPID PROFILE Routine 02/01/2023 10:25 AM SCREW MACHINE OPERATOR SINGLE SPINDLE Encounter for screening for lipoid disorders GYNECOLOGIC CYTOLOGY Routine 02/01/2023 10:00 AM SCREW MACHINE OPERATOR SINGLE SPINDLE Encounter for screening for malignant neoplasm of cervix BASIC METABOLIC PANEL STAT 05/25/2020 12:50 AM CDT from Last 3 Months or Most Recently Relevant to Health Maintenance Results * (ABNORMAL) Lipid Profile (02/01/2023 10:25 AM SCREW MACHINE OPERATOR SINGLE SPINDLE) Cholesterol 198 <200 mg/dL 02/01/2023 2:46 PM SCREW MACHINE OPERATOR SINGLE SPINDLE [facility] Triglycerides 102 <150 mg/dL 02/01/2023 2:46 PM SCREW MACHINE OPERATOR SINGLE SPINDLE [facility] Direct Measure HDL 53 >=50 mg/dL 02/01/2023 2:46 PM SCREW MACHINE OPERATOR SINGLE SPINDLE [facility] LDL Cholesterol Calculated 125(H) <=100 mg/dL 02/01/2023 2:46 PM SCREW MACHINE OPERATOR SINGLE SPINDLE [facility] Non HDL Cholesterol 145(H) <130 mg/dL 02/01/2023 2:46 PM SCREW MACHINE OPERATOR SINGLE SPINDLE [facility] Blood TOPOGRAPHY UNKNOWN / Unknown Client Draw / Unknown 02/01/2023 10:25 AM SCREW MACHINE OPERATOR SINGLE SPINDLE 02/01/2023 1:09 PM SCREW MACHINE OPERATOR SINGLE SPINDLE Narrative [facility] - 02/01/2023 2:46 PM SCREW MACHINE OPERATOR SINGLE SPINDLE Cholesterol Desirable: <200 mg/dL Triglycerides Normal: Less [...] Greater than or equal to 220 mg/dL Jericho Hernandez PA-C LAB - BLOOD ORDERABLES Final Result [facility] [place] [facility] [address] [facility], [address] [place] [address], [facility] [phone] * Gynecologic Cytology (PAP) (02/01/2023 10:00 AM SCREW MACHINE OPERATOR SINGLE SPINDLE) Interpretation Negative for Intraepithelial Lesion or Malignancy (NILM) 02/03/2023 9:28 AM SCREW MACHINE OPERATOR SINGLE SPINDLE [facility] Comment Papanicolaou Test Limitations: Cervical cytology is a screening test with limited sensitivity, and regular screening is critical for cancer prevention. Pap tests are primarily effective for the diagnosis/prevent ion of squamous cell carcinoma, not adenocarcinoma or other cancers. 02/03/2023 9:28 AM SCREW MACHINE OPERATOR SINGLE SPINDLE [facility] Specimen Adequacy Satisfactory for evaluation, endocervical/wilkes sformation zone component present 02/03/2023 9:28 AM SCREW MACHINE OPERATOR SINGLE SPINDLE [facility] Clinical Information none 02/03/2023 9:28 AM SCREW MACHINE OPERATOR SINGLE SPINDLE [facility] LMP/Menopause Date 01-24-2023 02/03/2023 9:28 AM SCREW MACHINE OPERATOR SINGLE SPINDLE [facility] Reflex Testing Yes regardless of result 02/03/2023 9:28 AM SCREW MACHINE OPERATOR SINGLE SPINDLE [facility] Previous Abnormal? No 02/03/2023 9:28 AM SCREW MACHINE OPERATOR SINGLE SPINDLE [facility] Previous Abnormal Diagnosis NILM with NEG HPV 02/03/2023 9:28 AM SCREW MACHINE OPERATOR SINGLE SPINDLE [facility] Performing Labs The technical component of this testing was completed at [facility] 02/03/2023 9:28 AM SCREW MACHINE OPERATOR SINGLE SPINDLE [facility] Brushing CERVIX UTERI STRUCTURE / Unknown 02/01/2023 10:00 AM SCREW MACHINE OPERATOR SINGLE SPINDLE 02/01/2023 1:15 PM SCREW MACHINE OPERATOR SINGLE SPINDLE Jericho BereMarito ROGEL Final R esult [facility] [address] [facility] [address], [address] [address], [facility] [phone] * (ABNORMAL) Basic metabolic panel (05/25/2020 12:50 AM CDT) Sodium 147(H) 133 - 144 mmol/L 05/25/2020 1:26 AM [facility] Comment:Reviewed, acceptable Potassium 3.6 3.4 - 5.3 mmol/L 05/25/2020 1:26 AM [facility] Chloride 110(H) 94 - 109 mmol/L 05/25/2020 1:26 AM [facility] Carbon Dioxide 25 20 - 32 mmol/L 05/25/2020 1:26 AM [facility] Anion Gap 12 3 - 14 mmol/L 05/25/2020 1:26 AM [facility] Glucose 84 70 - 99 mg/dL 05/25/2020 1:26 AM [facility] Urea Nitrogen 10 7 - 30 mg/dL 05/25/2020 1:26 AM [facility] Creatinine 0.57 0.52 - 1.04 mg/dL 05/25/2020 1:26 AM [facility] GFR Estimate >90 >60 mL/min/{1. 73_m2} 05/25/2020 1:26 AM [facility] Comment: Non GFR Calc Starting 02/22/2018, serum creatinine based estimated GFR (eGFR) will be calculated using the Chronic Kidney Disease Epidemiology Collaboration (CKD-EPI) equation. GFR Estimate If Black >90 >60 mL/min/{1. 73_m2} 05/25/2020 1:26 AM [facility] Comment: GFR Calc Starting 02/22/2018, serum creatinine based estimated GFR (eGFR) will be calculated using the Chronic Kidney Disease Epidemiology Collaboration (CKD-EPI) equation. Calcium 9.3 8.5 - 10.1 mg/dL 05/25/2020 1:26 AM [facility] Blood specimen (specimen) 05/25/2020 12:50 AM CDT 05/25/2020 1:00 AM CDT Trevon Lr MD LAB - BLOOD ORDERABLES Final Re sult [facility] [address] [place] [address], [facility] [phone] from Last 3 Months or Most Recently Relevant to Health Maintenance Insurance [facility] Care Teams Pack Out Operator Relationship Specialty Start Date End Date Teena Hargrove MD PCP - General dramatic critic 03/17/20 Seble Dickinson PA-C [address] [address] Physician Agricultural Scientist Urology 08/24/22
--- OUTSIDE RECORDS SUMMARY | 2024-02-12 16:06 | XMS_ITS | Encounter Summary ---
Author Organization [facility] Address [address] [place] [address] Care Team Providers Care Precision Filer Hand Name Role Phone Unavailable Primary Care Provider Unavailabl e Reason for Visit * Procedure/Equipment (Routine) - Incomplete Specialty Diagnoses / Procedures Referred By Tania beckett Referred To Contact Diagnoses COVID-19 Cough, unspecified type Procedures XR Chest 2 Views Carla Hudson PA-C [address] [place] [address] Referral ID Status Reason Start Date Expiration Date V isits Requested Visits Authorized [id number] Incomplete 11/17/2023 02/15/2025 1 1 Encounter Details Date Type Department Care Team (Latest Contact Info) Description 11/17/2023 12:00 PM CDT Ancillary Procedure [facility] [address] [facility] [place] [id number] Carla Hudson PA-C [address] [place] [address] COVID-19; Cough, unspecified type Social [...]
--- OUTSIDE RECORDS SUMMARY | 2024-02-12 16:06 | XMS_ITS | Clinical Summary ---
Author Organization [facility] Address [place], [place] [address] Care Team Providers Care Manager Office Name Role Phone Tone Mcqueen Unavailable [phone] Lakhwinder Lau MD Primary Care Provider [phone] Allergies No known active allergies Medications multivitamin (MVI) tablet Take 1 Tablet by mouth once daily. Active hydrOXYzine HCL (ATARAX) 25 mg tablet hydroxyzine HCl 25 mg tablet TAKE 1 TABLET (25 MG TOTAL) BY MOUTH 2 (TWO) TIMES A DAY NEEDED FOR ANXIETY. 2 Active gabapentin (NEURONTIN) 300 mg capsule gabapentin 300 mg capsule TAKE 1 CAPSULE BY MOUTH THREE TIMES A DAY 1 Active spironolactone (ALDACTONE) 50 mg tablet Take 50 mg by mouth once daily. 2 Active cetirizine (ZYRTEC) 10 mg tablet Take 1 Tablet (10 mg) by mouth once daily. 0 2 Active fluticasone (50 mcg per actuation) nasal solution (FLONASE) Inhale 2 Sprays into affected nostril(s). Active ALPRAZolam (XANAX) 0.5 mg tablet Take 0.5 mg by mouth one time if needed. Active medication order composer Magnesium 120mg four times daily 4 Active VITAMIN D3-VITAMIN K2, MK4, ORAL Take 5 Drops by mouth once daily. Active Lactobac no.21/Bifidobac no.9 (PROBIOTIC DIGESTIVE HEALTH ORAL) Take by mouth. Ac tive L.acid/L.casei/ B.bif/B.palak/FOS (PROBIOTIC BLEND ORAL) Take 1 Tablet by mouth once daily. Active famotidine (PEPCID) 40 mg tablet TAKE 1 TABLET BY ORAL ROUTE EVERY DAY AT BEDTIME NEEDED 4 Active akygu-2b-nin-ep a-fish oil-D3 (Fish Oil-Vit D3) 360 mg-1,200 mg -1,000 unit cap Take 1 Capsule by mouth once daily. Active medication order composer CDG Estrogen Glutashield Vit B GI Microboics Active Active Problems Problem Noted Date Diagnosed [...] Encounters Date Type Department Care Team Description 01/17/2024 7:17 AM SPRING ASSEMBLER SUPERVISOR - 01/17/2024 11:59 PM [facility] Hospital Encounter [facility] [address] [place] [address] Kwesi East MD Other chest pain 01/17/2024 Travel 01/12/2024 Telephone [facility] [address] [place] [address] Laya Vargas RN 12/31/2023 10:00 AM CDT Office Visit [facility] [address] [place] [address] Kwesi East MD Concerns (Patient states she has some stinging/ burning in her chest occ /Patient states everyday she feels miserable /Patient states she has sone shortness of breath /Paitent denies dizziness ) 12/31/2023 Travel 12/27/2023 Telephone [facility] [address] [place] [address], [facility] Medical Nutrition Therapy (Pt called to cancel follow up appointmnet) from Last 3 Months Immunizations Name Administration [...] Date Recorded PHQ-2 TOTAL SCORE 0 02/12/2020 Financial Resource Strain Answer Date R ecorded Difficulty of Paying Living Expenses Not on file 03/08/2021 Difficulty of Paying Living Expenses Not on file 03/08/2021 Comments No Sex and Gender Information Value Date Recorded Sex Assigned at Female 10/29/2023 8:27 AM CDT Legal Sex Female 8:27 AM SPRING ASSEMBLER SUPERVISOR Gender Identity Female 10/29/2023 8:27 AM CDT [...] (7 lb 1.9 oz) M C-Sec tion Livin g 8 9 GA Sal,BB Altaf Pierce MD Delivery Location:Hospital ( [address] [facility]D TRIAGE) Last Filed Vital Signs Vital Sign Reading Time Taken Comments Blood Pressure 119/65 01/17/2024 8:49 AM SPRING ASSEMBLER SUPERVISOR Pulse 63 01/17/2024 8:15 AM SPRING ASSEMBLER SUPERVISOR Temperature 36.3 C (97.3 F) 10/16/2021 4:06 PM CDT Respiratory Rate 16 12/31/2023 9:51 AM CDT Oxygen Saturation 99% 12/31/2023 9:51 AM CDT Inhaled Oxygen Concentration - - Weight 83.9 kg (185 lb) 12/31/2023 9:51 AM CDT Height 167.6 cm (5' 6) 12/31/2023 9:51 AM CDT Body Mass Index 29.86 12/31/2023 9:51 AM CDT Plan of Treatment Health Maintenance Due [...] wt on same day) for age 18+ 12/30/2024 12/31/2023, 08/03/2023, 10/16/2021, Additional history exists Tetanus booster 11/23/2027 11/22/2017, 01/06, 04/15/2006 Tdap Completed 11/22/2017, 01/06, 04/15/2006 Pneumococcal series for age 6-64 Aged Out No longer eligible based on patient's age to complete this topic Procedures Procedure Name Priority Date/Time Associated Diagnosis Comments CT CARDIAC CORONARY ARTERIES DUAL READ Routine 01/17/2024 8:23 AM SPRING ASSEMBLER SUPERVISOR Other chest pain CREATININE,ISTAT Routine 01/17/2024 8:06 AM SPRING ASSEMBLER SUPERVISOR from Last 3 Months Results * CT CARDIAC CORONARY ARTERIES DUAL READ (01/17/2024 8:23 AM SPRING ASSEMBLER SUPERVISOR) Anatomical Region Laterality Modality HEART Computed Tomogra phy Impressions 01/25/2024 10:52 AM SPRING ASSEMBLER SUPERVISOR No significant incidental extracardiac findings. Please refer to fire engineer's dictation for the cardiac CT report. Narrative 01/25/2024 10:52 AM SPRING ASSEMBLER SUPERVISOR Results are automatically released to your [employer] ([employer]) account once available, in compliance with federal regulations. This means that you may see your results before your provider has had a chance to review them. Please allow 2-3 business days for your provider to comment on the results. CT CORONARY ANGIOGRAM, 01/17/2024 INDICATION: Cardiovascular screening. CONCLUSIONS: This is a dual read study - please review [facility] over-read below for incidental non cardiac findings. The patient's total Agatston calcium score is zero. Angiographically normal coronary arteries in all visualized segments by CT criteria. Visualized portions of the aortic root, ascending and descending thoracic aorta are normal in size without evidence of aortic pathology. No significant pericardial effusion. TECHNIQUE: Calcium score was performed. ECG-gated CT angiogram of the heart with intravenous contrast Omnipaque 350, 85 cc at 6.5 cc/sec, was performed on a Siemens SOMATOM Force CT scanner. The imaging protocol was individualized to minimize radiation exposure. The following ECG-gated acquisition protocol was used: Prospective protocol. Pulse range 65-75. Scan parameters were as follows: Tube potential: 100 KV. Tube Current: 1629 mAs. Total DLP: 211 mGy*cm; mSv: 2.9; CTDI: 15.5. Images were reconstructed at a slice thickness of 0.6 mm with 0.3 mm overlap. Image post processing was performed on a [employer] Workstation. The patient received the following medications: 0.8 mg sublingual nitroglycerin. Average heart rate during the study was 68 BPM. No significant arrhythmias. There were no apparent complications. TECHNICAL QUALITY: Excellent. FINDINGS: CALCIUM SCORE: The total Agatston coronary artery calcium score is zero, indicating the absence of calcified plaques in the coronary tree. A calcium score of zero implies a very low risk of cardiac events in the next 10 years. CORONARY ARTERIES: Dominance: Right dominant. Normal origin of the coronary arteries. Left main artery: The left main coronary artery is patent without evidence of plaque or stenosis. Left anterior descending artery: The left anterior descending artery and its major diagonal branches are patent without evidence of plaque or stenosis. Left circumflex artery: The left circumflex artery and its major obtuse marginal and/or posterolateral branches are patent without evidence of plaque or stenosis. Right coronary artery: The right coronary artery and its major branches are patent without evidence of plaque or stenosis. CARDIAC: Grossly normal left ventricular chamber size. Grossly normal left ventricular wall thickness. Grossly normal right ventricular chamber size. Grossly normal left and right atrial size. No obvious atrial septal defect. No evidence of left atrial appendage thrombus. No intracardiac mass or thrombus. No evidence of abnormal thickening or calcification of the mitral and aortic valves. Normal pericardial thickness. No pericardial effusion. VESSELS: Normal caliber of the visualized ascending and descending thoracic aorta. No evidence of aortic atherosclerosis. Normal pulmonary artery caliber. Normally connected pulmonary veins without stenosis or obstruction. NON-CARDIAC: Please see radiology report below for incidental non-cardiac findings. Tamar Kaye MD [facility] AB/car For Patients: As a result of the Cures Act, medical imaging exams and procedure reports are released immediately into your electronic medical record. You may view this report before your referring provider. If you have questions, please contact your health care provider. EXAM: OVERREAD: DETAILED [facility] EXTRACARDIAC OVERREAD OF CARDIAC CT LOCATION: [facility] MEDICAL IMAGING DATE: 01/17/2024 INDICATION: Cardiac - Chest pain with equivocal stress test TECHNIQUE: Dose reduction techniques were used. COMPARISON: None. FINDINGS: LIMITED CHEST: Negative. LIMITED MEDIASTINUM: Negative. LIMITED UPPER ABDOMEN: Interval increase in the size of the partially imaged right hepatic lobe hemangioma. Kwesi East MD CT Final Result * (ABNORMAL) CREATININE,ISTAT (01/17/2024 8:06 AM SPRING ASSEMBLER SUPERVISOR) Pathologist [facility] CREATININE, POCT 1.00 0.57 - 1.11 mg/dL 01/17/2024 8:15 AM SPRING ASSEMBLER SUPERVISOR [facility] Comment:Caution: Patients ta kamran Hydroxyurea have falsely increased iStat Creatinine results. Verify creatinine results ordering a Creatinine (30816.2) eGFR 72(L) >90 mL/min/1.7 3m2 01/17/2024 8:15 AM SPRING ASSEMBLER SUPERVISOR [facility] Comment:As of 2021, eG FR is calculated by the CKD-EPI creatinine equation without race adjustment. eGFR can be influenced by muscle mass, exercise, and diet. The reported eGFR is an estimation only and is only applicable if the renal function is stable. Blood BLOOD SPECIMEN / Unknown 01/17/2024 8:06 AM SPRING ASSEMBLER SUPERVISOR 01/17/2024 8:14 AM SPRING ASSEMBLER SUPERVISOR Kwesi East MD CHEMISTRY Final Result [facility] [place]IP [id number] [address] [place] [address] from Last 3 Months Insurance [facility] Advance Directives * Full Code (Latest Code [...] AM Post [place] Care Teams Manager Office Relationship Specialty Start Date End Date Lakhwinder Lau MD [address], [place] [address] PCP - General Family Practice 10/05/23 Tone Mcqueen [employer] [address] [facility] [address] [place] [address] Consulting Physician Cardiology - Interventional 03/21/20
--- OUTSIDE RECORDS SUMMARY | 2024-02-16 13:02 | XMS_ITS ---
Author Organization [facility] Address [address] [place] [address] Care Team Providers Care Machine Repair Person Name Role Phone Josie Grissom Primary Care Provider BENJAMIN Lemos [phone] None, None Unavailable Unavailable REASON FOR VISIT issues swallowing Encounters Encounter Location Date Provider Diagnosis [facility] [address] [place] [address] 03/25/2023 BENJAMIN CARVAJAL Plan Of Treatment No Information Progress Notes * Henny FRANCES SDOB: [birth year] (43 yo F)Acc No.[id number]:03/25/2023 Patient: Henny RENO Provider: Rahul Carvajal MD :1980 A ge:42 Y S ex:Female Date:03/25/2023 Address:[address] [place], [place] [id number] Pcp:Josie Grissom Subjective: * Chief Complaints: * 1 . Issues swallowing. * Medical History: Objective: * Vitals: Assessment: Plan: * Treatment: * * Electronic signature of ADY CARVAJAL MD on 02/16/2024 at 01:02 PM RN UNIT MANAGER Sign off status: Pending * Provider: Rahul Carvajal MD Date: 0 03/25/2023 Generated for Ольгаi ng/Fajakobg/eTransmitting on: 1 04/18/2023 01:02 PM RN UNIT MANAGER
== END 2024-02-12 16:19 | disposition home or self-care (01) ==
LOC: ED 16:04
PROVIDERS: Emergency Provider Internal Medicine; PCP Family Medicine
DX: H66.91 Otitis media, unspecified, right ear (principal)
CPT/HCPCS: 93005; 99283

== ENCOUNTER 2024-03-03 15:00 | Emergency (ER) | payer OTHER, SELFPAY ==
--- OUTSIDE RECORDS SUMMARY | 2024-03-03 15:02 | XMS_ITS ---
Author Organization [facility] Address [address] [place] [address] Care Team Providers Care Junior Systems Administrator Name Role Phone Jaciel Josie Primary Care Provider UnavailBENJAMIN Palmer Unavailable [phone] None, None Unavailable Unavailable Candace Singleton Unavailable [phone] REASON FOR VISIT sinus infection Encounters Encounter Location Date Provider Diagnosis [facility] [address] [place] [address] 02/15/2024 Candace Singleton Bilateral sensorineu ral hearing loss H90.3 and Tinnitus, bilateral H93.13 Assessments Encounter Date Diagnosis (ICD Code) Assessment Notes Treatment Notes Treatment Clinical Notes Section Notes 02/15/2024 Bilateral sensorineural hearing loss (ICD-10 - H90.3) 02/15/2024 Tinnitus, bilateral (ICD-10 - H93.13) Plan Of Treatment Next Appt Details Follow Up: per ENT, Reason: Progress Notes * Henny FRANCES SDOB: [birth year] (43 yo F)Acc No.[id number]:02/15/2024 ENT Referred Audio Patient: Henny RENO Provider: Rahul Singleton :1980 A ge:43 Y S ex:Female Date:02/15/2024 Address:[address] [place] [id number] Pcp:Josie Grissom Subjective: * Chief Complaints: * S inus infection * HPI: A udiology: o P veronica is seen through clinic for a hearing evaluation per Dr. Benjamin Car . See physician's HPI below. Maria Luisa Reinoso Au.D., am documenting and personally performing services for Ignacia Ruiz, CCC-A. Candace Reinoso Au.D., [facility], attest that Ignacia Rivera, has documented and personally performed the following services on my behalf. 43 yo female, seen today in consultation at request of self, for greater than 1 month bilateral ear discomfort and pressure, focused at outside region of ear canals, variable intensity/frequency. She was seen in ER 3 days ago and diagnosed with ear infection and prescribed z-pack, which hasn't helped. Prior to that she was seen by another ENT who performed a sinus CT scan, reported to her as normal, and she was treated with prednison, which didn't resolve the problem. Prior to that she has had 2-3 month h/o intermittent cloudy nasal drainage, diagnosed with sinus infection and treated with 2 courses of Augmentin, which resolved the cloudy drainage, but not the pressure type discomfort. She has tried OTC flonase, claritin, zyrtec, and saline sinus rinses without resolution of sxs.? She has a history of fibromyalgia. * Medical History: * Surgical History: * Hospitalization/Major Diagno stic Procedure: * Medications: Objective: * Vitals: * Examination: A udiology: Tympanometry i s within normal limits bilaterally . Audiogram R esults suggest normal hearing 250-4 kHz, sloping to a mild sensorineural hearing loss bilaterally. Word Recognition Score 1 00% bilaterally at 70 dB masked.? Assessment: * Assessment: 1. T innitus, bilateral - H93.13 2 . B ilateral sensorineural hearing loss - H90.3 (Primary) Plan: * Treatment: * Procedure Codes: 9 2557 Comp audio without SRT, Modifiers: [id number] Tympanometry jacqueline * Follow Up: p er ENT * * ICAL THERAPY NURSE Sign off status: Completed true * Provider: Rahul Singleton Date: 1 04/17/2023 Generated for Salvador leos/Ciaran/Jodi on: 05/04/2023 03:02 PM PHYSICAL THERAPY NURSE History and Physical Notes * HPI (History of Present Illness) Category Sub-Category Detail Notes Category Not es Audiology o Patient is seen through clinic for a hearing evaluation per Dr. Benjamin Car . See physician's HPI below Kemar, Ignacia Rivera, am documenting and personally performing services for Ignacia Ruiz, [facility]. Candace Reinoso Au.D., [facility], attest that Ignacia Rivera, has documented and personally performed the following services on my behalf. 43 yo female, seen today in consultation at request of self, for greater than 1 month bilateral ear discomfort and pressure, focused at outside region of ear canals, variable intensity/frequency. She was seen in ER 3 days ago and diagnosed with ear infection and prescribed z-pack, which hasn't helped. Prior to that she was seen by another ENT who performed a sinus CT scan, reported to her as normal, and she was treated with prednison, which didn't resolve the problem. Prior to that she has had 2-3 month h/o intermittent cloudy nasal drainage, diagnosed with sinus infection and treated with 2 courses of Augmentin, which resolved the cloudy drainage, but not the pressure type discomfort. She has tried OTC flonase, claritin, zyrtec, and saline sinus rinses without resolution of sxs. She has a history of fibromyalgia. Examination Category Sub-Category Detail Notes Category Not es Audiology Tympanometry is within normal limits bila terally Audiogram Results suggest norm al hearing 250-4 kHz, sloping to a mild sensorineural hearing loss bilaterally Word Recognition Score 100% bilaterally at 70 dB masked
--- OUTSIDE RECORDS SUMMARY | 2024-03-03 15:03 | XMS_ITS ---
Author Organization [facility] Address [address] [place] [address] Care Team Providers Care Trial Justice Name Role Phone Jaciel Momoberyl Primary Care Provider BENJAMIN Lemos Unavailable [phone] None, None Unavailable Unavailable Allergies No Known Allergies REASON FOR VISIT sinus infection Medications Medication SIG (Take, Route, Fr equency, Duration) Notes Start Date End Date Status ZyrTEC Active Claritin Active Flonase Active Gabapentin Active Spironolactone Activ e Advil Active NexIUM Active Social History Tobacco Use: Social History Observation Description Date Details (start date - stop date) Never Smoker NA - NA Tobacco use/smoking Question Answer Notes Are you a nonsmoker Are you a nonsmoker Problems Problem Type SNOMED Code ICD Code Onset Dates Problem Status W/U Status Risk Notes Problem 892080873 Otalgia 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) Active confirmed Problem 937075249 Facial pressure (R44.8) Active confirmed Problem 625997424 History of fibromyalgia (Z87.39) Active confirmed Problem 1155094111346164 Bilateral sensorineural hearing loss (H90.3) Active confirmed Vital Signs Height 66 in 02/15/2024 BMI 28.57 kg/m2 02/15/2024 Height-cm 167.64 cm 02/15/2024 Weight-kg 80.29 kg 02/15/2024 Weight 177 lbs 02/15/2024 Procedures Procedure Date Ordered Date Performed Result Body Sit e OTOMICROSCOPIC EAR EXAM 02/15/2024 02/15/2024 N/A Encounters Encounter Location Date Provider Diagnosis [facility] [place] [address] [address] 02/15/2024 BENJAMIN CARVAJAL Otalgia of both ears H92.03 ; Chronic rhinitis J31.0 ; Facial pressure R44.8 ; History of fibromyalgia Z87.39 and Bilateral sensorineural hearing loss H90.3 Assessments Encounter Date Diagnosis (ICD Code) Assessment Notes Treatment Notes Treatment Clinical Notes Section Notes 02/15/2024 Otalgia of both ears (ICD-10 - H92.03) Findings, assessment and management options were reviewed. Differential diagnosis/etiolog y reviewed. Dx/etiology uncertain. No evidence for infectious or neoplastic etiology on today's exam. Hearing assessment was ordered and independently reviewed with the patient today, and found to have normal type A tympanograms, suggestive of normal ET function. There is no sign of infection noted under the microscope. Hx and exam is suggestive of likely TMJ disorder, perhaps associated with her fibromyalgia. Treatment strategies outlined. Handout was provided and discussed. Referral to Dental/OMFS specializing in TMJ disorders was recommended. Followup for re-evaluation if any concerns persist or worsen. 02/15/2024 Chronic rhinitis (ICD-10 - J31.0) Findings, assessment and management options were reviewed. Hx and exam suggestive of underlying chronic rhinitis, allergic versus non-allergic. Treatment strategies outlined. Advised nasal saline lavage. Handout was provided and discussed. Antihistamines, decongestants, and nasal steroid sprays reviewed. Followup with allergic for further disposition if sxs persist. Followup for re-evaluation if any concerns persist or worsen. 02/15/2024 Facial pressure (ICD-10 - R44.8) Recent sinus CT scan was reported to her as normal, without evidence for ongoing infection. We discussed the possibility of chronic rhinitis and/or fibromyalgia or TMJ as a possible source of this sxs. Treatment strategies outlined. Followup for re-evaluation if any concerns persist or worsen. 02/15/2024 History of fibromyalgia (ICD-10 - Z87.39) Findings, assessment and management options were reviewed. She has previously been seen by Fibromyalgia specialists at [facility] as well as her primary care team. Her ongoing sxs may be related to fibromyalgi, such that I recommended a followup visit with them if sxs persist or worsen. 02/15/2024 Bilateral sensorineural hearing loss (ICD-10 - H90.3) Findings, assessment and management options were reviewed. Hearing assessment was ordered and independently reviewed with the patient today, revealing normal type A tympanograms, but with mild bilateral sensorineural hearing loss. Treatment strategies outlined. Hearing protection in noisy environments and annual audiogram for surveillance suggested. 02/15/2024 Other Body mass index material was published Plan Of Treatment Treatment Notes Assessment Notes Otalgia of both ears Findings, assessmen t and management options were reviewed. Differential diagnosis/etiology reviewed. Dx/etiology uncertain. No evidence for infectious or neoplastic etiology on today's exam. Hearing assessment was ordered and independently reviewed with the patient today, and found to have normal type A tympanograms, suggestive of normal ET function. There is no sign of infection noted under the microscope. Hx and exam is suggestive of likely TMJ disorder, perhaps associated with her fibromyalgia. Treatment strategies outlined. Handout was provided and discussed. Referral to Dental/OMFS specializing in TMJ disorders was recommended. Followup for re-evaluation if any concerns persist or worsen. Chronic rhinitis Findings, assessment and management options were reviewed. Hx and exam suggestive of underlying chronic rhinitis, allergic versus non-allergic. Treatment strategies outlined. Advised nasal saline lavage. Handout was provided and discussed. Antihistamines, decongestants, and nasal steroid sprays reviewed. Followup with allergic for further disposition if sxs persist. Followup for re-evaluation if any concerns persist or worsen. Facial pressure Recent sinus CT scan was reported to her as normal, without evidence for ongoing infection. We discussed the possibility of chronic rhinitis and/or fibromyalgia or TMJ as a possible source of this sxs. Treatment strategies outlined. Followup for re-evaluation if any concerns persist or worsen. History of fibromyalgia Findings, assess ment and management options were reviewed. She has previously been seen by Fibromyalgia specialists at [facility] as well as her primary care team. Her ongoing sxs may be related to fibromyalgi, such that I recommended a followup visit with them if sxs persist or worsen. Bilateral sensorineural hearing loss Fin dings, assessment and management options were reviewed. Hearing assessment was ordered and independently reviewed with the patient today, revealing normal type A tympanograms, but with mild bilateral sensorineural hearing loss. Treatment strategies outlined. Hearing protection in noisy environments and annual audiogram for surveillance suggested. Other Body mass index mate rial was published Next Appt Details Follow Up: prn,1 Year, Reaso n: Progress Notes * Henny FRANCES SDOB: [birth year] (43 yo F)Acc No.[id number]:02/15/2024 Patient: Henny RENO Provider: Rahul Carvajal MD :1980 A ge:43 Y S ex:Female Date:02/15/2024 Address:[address] [place], [place] [id number] Pcp:Josie Grissom Subjective: * Chief Complaints: * S inus infection * HPI: A udiology: 43 yo female, seen today in consultation [...] fibromyalgia. * Medical History: * Surgical History: C section * Hospitalization/Major Diagno stic Procedure: N o Hospitalization History. * Family History: F ather: diagnosed with Environmental allergies. S iblings: diagnosed with Environmental allergies. * Social History: T obacco Use: T obacco use/smoking A re you a n onsmoker * Medications: T akingNexIUM Advil Gabapentin Flonase Claritin ZyrTEC Spironolactone Medication List reviewed and reconciled with the patientTaking NexIUM Taking Advil Taking Gabapentin Taking Flonase Taking Claritin Taking ZyrTEC Taking Spironolactone Medication List reviewed and reconciled with the patient * Allergies: N .K.D.A.no[Allergies Verified] Objective: * Vitals: W t-lbs: 177 lbs, Ht:66in, BMI:28.57Index, Ht-cm: 167.64 cm, Wt-k.29 kg. * Examination: C onstitutional: General Appearance: A ppropriate for stated age, no obvious distress. Ability to Communicate: a ppropriate. ? H ead and Face: Appearance and Symmetry: N ormal, no scalp or facial scarring or suspicious lesions. Paranasal sinuses tenderness: N ormal, Paranasal sinuses non tender. N ose: Architecture: G rossly normal external nasal architecture with no masses or lesions. Mucosa: m ild diffuse edema with clear drainage,No Polyps or masses. No purulence.. Septum: N ormal, Septum non obstructing ,Deviated to the right. Turbinates: , No turbinates abnormalities. ? O ral Cavity and Oropharynx: Lips: N ormal. Dental and gingiva: N ormal, No obvious dental or gingival disease. Mucosa: N ormal, Moist mucous membranes. Tongue: N ormal, Tongue mobile with no mucosal abnormalities. Hard and soft palate: N ormal , Hard and soft palate without cleft or mucosal lesions. Tonsils: N ormal, Tonsils free of lesions and not enlarged.? Oral pharynx: N ormal, Posterior pharynx without lesions or remarkable asymmetry. Saliva: N ormal, Clear saliva. Masses: N ormal, No palpable masses or pathologically enlarged lymph nodes. N joellen: Masses/lymph nodes: N ormal, No worrisome neck masses or lymph nodes. Salivary glands: N ormal, Parotid and submandibular glands.? Trachea and larynx position N ormal, Trachea and larynx midline. Thyroid: N ormal, No thyroid abnormality. Tenderness: N ormal, No cervical tenderness. Suppleness: N ormal, Neck supple. Temporomandibular joint f ocal tenderness and crepitance around TMJ region. N eurological: Alertness and orientation: N ormal, Responsive, correct orintation demonstration, place, time and situation. Cranial nerves facial: N ormal. R espiratory: Symmetry and Respiratory effort: N ormal, symmetric chest movement and expansion with no increased intercostal retractions or use of accessory muscles. ? L arynx and Hypopharynx, mirror or scope: Voice Quality: N ormal voice quality. ? 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 Auricle: A uricles without scars, lesions, masses. External auditory canal: O tomicroscopic exam:,External auditory canals normal. Tympanic membrane: O tomicroscopic exam:,Tympanic membranes normal without swelling or erythema. Tympanic membrane mobility: N ormal. E yes: Appearance N ormal extraocular movements without esotropia or extropia, Pupils normal, Conjunctiva normal. A udiology: Tympanometry i s within normal limits bilaterally . Audiogram R esults suggest normal hearing 250-4 kHz, sloping to a mild sensorineural hearing loss bilaterally. Word Recognition Score 1 00% bilaterally at 70 dB masked.? Assessment: * Assessment: 1. O talgia of both ears - H92.03 (Primary) 2 . C hronic rhinitis - J31.0? 3. F acial pressure - R44.8 4 . H istory of fibromyalgia - Z87.39 5 . B ilateral sensorineural hearing loss - H90.3 Plan: * Treatment: 2. C hronic rhinitis Notes: Findings, assessment and management options were reviewed. Hx and exam suggestive of underlying chronic rhinitis, allergic versus non-allergic. Treatment strategies outlined. Advised nasal saline lavage. Handout was provided and discussed. Antihistamines, decongestants, and nasal steroid sprays reviewed. Followup with allergic for further disposition if sxs persist. Followup for re-evaluation if any concerns persist or worsen. 3. F acial pressure Notes: Recent sinus CT scan was reported to her as normal, without evidence for ongoing infection. We discussed the possibility of chronic rhinitis and/or fibromyalgia or TMJ as a possible source of this sxs. Treatment strategies outlined. Followup for re-evaluation if any concerns persist or worsen. 4. H istory of fibromyalgia Notes: Findings, assessment and management options were reviewed. She has previously been seen by Fibromyalgia specialists at [facility] as well as her primary care team. Her ongoing sxs may be related to fibromyalgi, such that I recommended a followup visit with them if sxs persist or worsen.? 5. B ilateral sensorineural hearing loss Notes: Findings, assessment and management options were reviewed. Hearing assessment was ordered and independently reviewed with the patient today, revealing normal type A tympanograms, but with mild bilateral sensorineural hearing loss. Treatment strategies outlined. Hearing protection in noisy environments and annual audiogram for surveillance suggested. 6. O thers Notes: Body mass index material was published * Procedure Codes: 9 2504 Binocular microscopy (in-office) * Preventive Medicine: MIPS: B OR Above Normal BMI Follow-up D ietary management education, guidance, and counseling * Follow Up: p rn,1 Year * * CTOR OCCUPATIONAL Sign off status: Completed true * Provider: Rahul Carvajal MD Date: 04/17/2023 Generated for Ольгаi deric/Ciaran/eTransmitting on: 05/04/2023 03:02 PM DIRECTOR OCCUPATIONAL History and Physical Notes * HPI (History of Present Illness) Category Sub-Category Detail Notes Category Not es Audiology 43 yo female, seen today in consultation [...] Category Sub-Category Detail Notes Category Not es Constitutional General Appearance: Appropriate for stated age, no obvious distress Ability to Communicate: appropriate Head and Face Appearance and Symmetry: Normal, no scalp or facial scarring or suspicious lesions Paranasal sinuses tenderness: Normal, Pa ranasal sinuses non tender Ears Clinical speech 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 No purulence. Septum: Normal, Septum non o bstructing , Deviated to the right Turbinates: , No turbinates abno rmalities Oral Cavity and Oropharynx Lips: Normal Dental and gingiva: Normal, No obvious d ental or gingival disease Mucosa: Normal, Moist mucous membranes Tongue: Normal, Tongue mobil e with no mucosal abnormalities Hard and soft palate: Normal , Hard and soft palate without cleft or mucosal lesions Tonsils: Normal, Tonsils free of lesions and not enlarged Oral pharynx: Normal, Posterior ph arynx without lesions or remarkable asymmetry Saliva: Normal, Clear saliva Masses: Normal, No palpable masses or pathologically enlarged lymph nodes Larynx and Hypopharynx, mirr or or scope Voice Quality: Normal voice quality Neck Masses/lymph nodes: Normal, No w orrisome neck masses or lymph nodes Salivary glands: Normal, Parotid and submandibular glands Trachea and larynx position Normal, Trac hea and larynx midline Thyroid: Normal, No thyroid a bnormality Tenderness: Normal, No cervical tenderness Suppleness: Normal, Neck supple Temporomandibular joint focal tenderness and crepitance around TMJ region Neurological Alertness and orientation: Hetal l, Responsive, correct orintation demonstration, place, time and situation Cranial nerves facial: Normal Respiratory Symmetry and Respiratory effort: Normal, symmetric chest movement and expansion with no increased intercostal retractions or use of accessory muscles Audiology Tympanometry is within normal limits bila terally Audiogram Results suggest norm al hearing 250-4 kHz, sloping to a mild sensorineural hearing loss bilaterally Word Recognition Score 100% bilaterally at 70 dB masked Eyes Appearance Normal extraocul ar movements without esotropia or extropia, Pupils normal, Conjunctiva normal
--- OUTSIDE RECORDS SUMMARY | 2024-03-03 15:03 | XMS_ITS ---
Author Organization [facility] Address [address] [place] [address] Care Team Providers Care Mushroom Cultivator Name Role Phone Josie Grissom Primary Care Provider BENJAMIN Lemos [phone] None, None Unavailable Unavailable REASON FOR VISIT issues swallowing Encounters Encounter Location Date Provider Diagnosis [facility] [address] [place] [address] 03/25/2023 BENJAMIN CARVAJAL Plan Of Treatment No Information Progress Notes * Henny FRANCES SDOB: [birth year] (43 yo F)Acc No.[id number]:03/25/2023 Patient: Henny RENO Provider: Rahul Carvajal MD :1980 A ge:42 Y S ex:Female Date:03/25/2023 Address:[address] [place], [place] [id number] Pcp:Josie Grissom Subjective: * Chief Complaints: * 1 . Issues swallowing. * Medical History: Objective: * Vitals: Assessment: Plan: * Treatment: * * Electronic signature of ADY CARVAJAL MD on 03/03/2024 at 03:02 PM GRINDER OPERATOR SURFACE TOOL Sign off status: Pending * Provider: Rahul Carvajal MD Date: 0 03/25/2023 Generated for Ольгаi ng/Fajakobg/eTransmitting on: 1 05/04/2023 03:02 PM GRINDER OPERATOR SURFACE TOOL
--- OUTSIDE RECORDS SUMMARY | 2024-03-03 15:03 | XMS_ITS | Patient Health Record ---
Author Organization [facility] Address [address] [place] [address] Care Team Providers Care Fitness Floor Attendant Name Role Phone Jaciel Momoberyl Primary Care Provider UnavailBENJAMIN Palmer Unavailable [phone] None, None Unavailable Unavailable Candace Singleton Unavailable [phone] Allergies No Known Allergies Reason For Referral No Information Medications Medication SIG (Take, Route, Fr equency, Duration) Notes Start Date End Date Status ZyrTEC Active Claritin Active Flonase Active Gabapentin Active Advil Active NexIUM Active Spironolactone Activ e Social History Tobacco Use: Social History Observation Description Date Details (start date - stop date) Never Smoker NA - NA Tobacco use/smoking Question Answer Notes Are you a nonsmoker Are you a nonsmoker Alcohol Screen Question Answer Notes Did you have a drink containing alcohol in the p ast year? 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) Active confirmed Problem 333074944 Throat irritatio n (J39.2) Active confirmed Problem 0992288460343576 Bilateral sensorineural hearing loss (H90.3) Active confirmed Problem 83450698 Nasal septal deformity (J34.2) Active confirmed Problem 12176105 Nasal septal deformity (J34.2) Active confirmed Problem 319227350 Otalgia 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) Active confirmed Problem 6935375226525 Bilateral tinnit us (H93.13) Active confirmed Problem 72925088 Nasal dryness (J34.89) Active confirmed Problem 25837350 Chronic sinusiti s, unspecified location (J32.9) Active confirmed Problem 153412619 Laryngopharyngea l reflux (LPR) (K21.9) Active confirmed Problem 46529770 Chronic rhinitis (J31.0) Active confirmed Problem 413457139 Facial pressure (R44.8) Active confirmed Problem 81650642 Facial pain (R51.9) Active confirmed Problem 878623011 History of fibromyalgia (Z87.39) Active confirmed Vital Signs Height-cm 167.64 cm 02/15/2024 Weight-kg 80.29 kg 02/15/2024 Height 66 in 02/15/2024 Weight 177 lbs 02/15/2024 BMI 28.57 kg/m2 02/15/2024 Procedures Procedure Date Ordered Date Performed Result Body Sit e OTOMICROSCOPIC EAR EXAM 02/15/2024 02/15/2024 N/A Encounters Encounter Location Date Provider Diagnosis [facility] [address] [place] [address] 02/15/2024 BENJAMIN CARVAJAL Otalgia of both ears H92.03 ; Chronic rhinitis J31.0 ; Facial pressure R44.8 ; History of fibromyalgia Z87.39 and Bilateral sensorineural hearing loss H90.3 [facility] [address] [place] [address] 02/15/2024 Candace Singleton Bilateral sensorineural hearing loss H90.3 and Tinnitus, bilateral H93.13 [...] if any concerns persist or worsen. 02/15/2024 Tinnitus, bilateral (ICD-10 - H93.13) 02/15/2024 Bilateral sensorineural hearing loss (ICD-10 - H90.3) 02/15/2024 Facial pressure (ICD-10 - R44.8) Recent [...] previously been seen by Fibromyalgia specialists at [facility] as well as her primary care team. [...] index material was published Plan Of Treatment No Information Insurance Providers Payer Name Payer Address Payer Phone Subscriber Number Group Number Insured Name Patient Relationship to Insured Coverage Start Date Coverage End Date [facility] [address] [place] [address] [id number] Henny Rivas Self - patient is the insured Medical (General) History Medical History History ICD Code fibromyalgia Surgical History Surgery Date(Month/Year) C section
--- OUTSIDE RECORDS SUMMARY | 2024-03-03 15:03 | XMS_ITS | Data Portability ---
Author Organization [facility] [employer], [id number] Address [address] [place] [address] Care Team Providers Care Spanish Literature Professor Name Role Phone TEENA LO Crimper Assembler NORMA MCNULTY Primary Care Provider Assessment No assessment recorded. Plan of Treatment Reminders Order Date Submit Date Provider Last Modified By Organization Details Last Modified Time Details Appointments None recorded. Lab lipid panel, serum 2022 023 [facility], [address] [facility], [address], [place], [address], 3 15:49:12 bacterial vaginosis + vaginitis panel, vaginal 2022 023 apetersen 35 Le477_ramlpxq rtners_fartun le, [address] [facility], [address], [place], [address], 3 13:01:20 hemoglobin A1c, QN, blood 2022 023 [facility], [address] [facility], [address], [place], [address], 3 15:49:11 CBC 2022 023 [facility], [address] [facility], [address], [place], [address], 3 15:49:09 Pap test, slide(s), cervical [facility] [address] [facility], [address], [place], [address], 3 16:08:46 urinalysis, dipstick, auto 2022 023 apetersen 35 Bk241_yxvyxry rtners_ziona le, [address] [facility], [address], [place], [address], 3 13:45:18 bacterial vaginosis + vaginitis panel, vaginal 2022 023 [facility] Tr451_ofojkvu rtners_ziona le, [address] [place] [address], [address], [place], [address], 3 14:41:00 urinalysis, dipstick, auto 2023 024 apetersen 35 Rw711_fdsguac rtners_lilyda le, [address] [place] [address], [address], [place], [address], 4 13:55:52 bacterial vaginosis + vaginitis panel, vaginal 2023 024 apetersen 35 An050_xjhdqwn rtners_yanethyda le, [address] [place] [address], [address], [place], [address], 4 17:01:44 urinalysis, dipstick, auto 2023 024 apetersen 35 Vc556_pijvqmp rtners_lilyda le, [address] [place] [address], [address], [place], [address], 4 13:33:54 culture, urine 2023 024 [facility], [address] [facility], [address], [place], [address], 4 07:07:53 bacterial vaginosis + vaginitis panel, vaginal 2023 024 apetersen 35 Sy463_wzehvoi rtners_fartun le, [address] [facility], [address], [place], [place], [address], 4 13:03:16 Referral None recorded. Procedures None recorded. Surgeries None recorded. Imaging None recorded. Medication Orders spironolact one 50 mg tablet 2022 023 [facility], [address] [place] [address], [place], [address], 3 10:56:44 Metrogel Vaginal 0.75 % (37.5 mg/5 gram) 2022 023 [facility], [address] [place] [address], [place], [address], 4 13:10:07 clindamycin HCl 300 mg capsule 2022 023 [facility], [address] [place] [address], [place], [address], 4 13:07:00 Metrogel Vaginal 0.75 % (37.5 mg/5 gram) 2022 023 [facility], [address] [place] [address], [place], [address], 4 13:07:10 Diflucan 150 mg tablet 2023 024 [facility], [address] [place] [address], [place], [address], 4 10:05:15 metronidazo le 0.75 % (37.5 mg/5 gram) vaginal gel 2023 024 [facility], [address] [facility], [place], [address], 4 17:14:55 metronidazo le 500 mg tablet 2023 024 [facility], [address] [place] [address], [place], [address], 4 13:09:09 terconazole 0.8 % vaginal cream 2023 024 [facility], [address] [facility], [place], [address], 4 13:09:08 Junel FE / (28) 1 mg-20 mcg (21)/75 mg (7) tablet 2023 024 [facility], [address] [place] [address], [place], [address], 4 13:09:09 Patient TargetsNo targets recorded. Patient Instructions Encounter Date Encounter Id Patient Instructions Last Modified By Organization Details Last Modified Time 02/01/2023 [id number] venous blood draw* [id number] Not avai lable 02/01/2023 10:56:02 RTC in [...] cervical or colon cancers. All questions answered. [email or web address] Not available 02/01/2023 13:10:01 02/12/2023 [id number] Sent BDAffirm. Notified pt swab is positive for BV and sent script. Plan to treat and then can try MetroGel 1-2x/wk maintenance to prevent reoccurance. Cotton underware only. Do no wear underware at night. Avoid feminine wipes, douches, pantyliner use. Change clothes immediately after exercising. All questions answered. [email or web address] Not available 02/12/2023 15:04:28 04/02/2023 [id number] Sent BDAffirm. Notified pt that swab is positive for BV and sent scripts. RTC after completing Cipro to confirm UTI has fully resolved. Cotton underware only. Do no wear underware at night. Avoid feminine wipes, douches, pantyliner use. Change clothes immediately after exercising. All questions answered. [email or web address] Not available 04/02/2023 17:15:35 04/08/2023 [id number] Sent Urine Culture. Will call pt with results. Always wipe from front to back. Urinate immediately after intercourse. Increase PO hydration. Drink unsweetened cranberry juice. All questions answered. [email or web address] Not available 04/08/2023 15:08:08 05/12/2023 [id number] Sent BDAffirm. Notified pt that swab is positive for BV and sent script to pharmacy. Cotton underware only. Do no wear underware at night. Avoid feminine wipes, douches, pantyliner use. Change clothes immediately after exercising. All questions answered. [email or web address] Not available 05/12/2023 13:08:20 Reason for Referral None Reported. Results Created Date Observation Date Name Description Value Unit Range Abnormal Flag Note LastModifiedBy Organization Detail LastModifiedTime 02/02/2002/01/2023 CBC WITH PLATE LETS WBC count 8.4 10e3/ uL 4.0-11 .0 Not Available [address], [place], [address], 02/01/2023 15:49:09 02/02/20 23 02/01/2023 CBC WITH PLATE LETS RBC count 5.34 10e6/ uL 3.80-5 .20 high Not Available [facility] [address], [place], [address], 02/01/2023 15:49:09 02/02/2002/01/2023 CBC WITH PLATE LETS hemoglobin 15.0 g/dL 11.7-1 5.7 Not Available [address], [place], [address], 02/01/2023 15:49:09 02/02/20 23 02/01/2023 CBC WITH PLATE LETS hematocrit 46.6 % 35.0-4 7.0 Not Available [address], [place], [address], 02/01/2023 15:49:09 02/02/2002/01/2023 CBC WITH PLATE LETS MCV 87 fL 78-100 Not Available [address], [place], [address], 02/01/2023 15:49:09 02/02/2002/01/2023 CBC WITH PLATE LETS MCH 28.1 pg 26.5-3 3.0 Not Available [address], [place], [address], 02/01/2023 15:49:09 02/02/2002/01/2023 CBC WITH PLATE LETS MCHC 32.2 g/dL 31.5-3 6.5 Not Available [address], [place], [address], 02/01/2023 15:49:09 02/02/2002/01/2023 CBC WITH PLATE LETS RDW 13.8 % 10.0-1 5.0 Not Available [address], [place], [address], 02/01/2023 15:49:09 02/02/2002/01/2023 CBC WITH PLATE LETS platelet count 330 10e3/ uL 150-45 0 Not Available [address], [place], [address], 02/01/2023 15:49:09 02/02/2002/01/2023 HEMOG LOBIN A1C hemoglobin A1C 5.2 % <5.7 Hetal l <5.7% Predi abete s 5.7-6 .4% Diabe bela 6.5% or highe r Note: Adopt ed from ADA conse nsus guide lines . Not Available [address], [place], [address], 02/01/2023 15:49:10 02/02/20 23 02/01/2023 LIPID PANEL cholesterol 198 mg/dL <200 Not Available [address], [place], [address], 02/01/2023 15:49:12 02/02/20 23 02/01/2023 LIPID PANEL triglyceride s 102 mg/dL <150 Not Available [address], [place], [address], 02/01/2023 15:49:12 02/02/20 23 02/01/2023 LIPID PANEL direct measure HDL 53 mg/dL >=50 Not Available [address], [place], [address], 02/01/2023 15:49:12 02/02/20 23 02/01/2023 LIPID PANEL LDL cholesterol calculated 125 mg/dL <=100 high Not Available [address], [place], [address], 02/01/2023 15:49:12 02/02/20 23 02/01/2023 LIPID PANEL non HDL cholesterol 145 mg/dL <130 high Karen stero l Morgan able: <200 mg/dL Trigl yceri charly Hetal l: Less than 150 mg/dL Borde rline High: 150-1 99 mg/dL High: 200-4 99 mg/dL Very High: Great er than or equal to 500 mg/dL Direc t Measu re HDL Femal e: Great er than or equal to 50 mg/dL Male: Great er than or equal to 40 mg/dL LDL Karen stero l Morgan able: <100m g/dL Above Morgan able: 100-1 29 mg/dL Borde rline High: 130-1 59 mg/dL High: 160-1 89 mg/dL Very High: >= 190 mg/dL Non HDL Karen stero l Morgan able: 130 mg/dL Above Morgan able: 130-1 59 mg/dL Borde rline High: 160-1 89 mg/dL High: 190-2 19 mg/dL Very High: Great er than or equal to 220 mg/dL Not Available [address], [place], [address], 02/01/2023 15:49:12 02/02/20 23 02/01/2023 GYNEC OLOGI C CYTOL OGY (PAP SMEAR ) gynecologic cytology SEE RESULT S BELOW SPECI MEN SOURC E [place] ing Cervi x BKR LAB AP CATH LABORATORY TECHNICIAN INTER PRETA TION: Negat kassie for Intra epith rhonda Mccarthy n or Cindy degroot (NILM ) Elect josefina galindo gaviota d by Jalen Hays, CT (ASCP ) on 02/03 at 9:28 AM Path repor [email or web address].com ments Imp Spec: Papan icola ou Test Limit ation s: Cervi rebekah cytol ogy is a scree see test with limit ed sensi tivit y, and regul ar scree see is criti rebekah for cance r preve ntion . Pap tests are prima rily effec tive for the diagn osis/ preve ntion of squam ous cell carci noma, not adeno carci noma or other cance rs. BKR LAB AP CATH LABORATORY TECHNICIAN ADEQU ACY: Satis facto ry for evalu ation , endoc ervic al/tr ansfo rmati on zone compo nent prese nt Path repor t.rel evant Hx Spec: none BKR LAB AP LMP: 01-24 BKR LAB AP HPV REFLE X: Yes regar dless of resul t BKR LAB AP PREVI OUS ABNOR MAL: No BKR LAB AP PREVI OUS ABNL DX: NILM with NEG HPV Path repor [email or web address].com ments Imp Spec: The techn ical compo nent of this testi ng was compl eted at [facility] Not Available [address], [place], [address], 02/04/2023 16:08:46 02/02/20 23 02/01/2023 HPV HIGH RISK TYPES DNA CERVI REBEKAH other HR HPV Negati ve negati ve Not Available [address], [place], [address], 02/04/2023 16:08:59 02/02/20 23 02/01/2023 HPV HIGH RISK TYPES DNA CERVI REBEKAH HPV16 DNA Negati ve negati ve Not Available [address], [place], [address], 02/04/2023 16:08:59 02/02/20 23 02/01/2023 HPV HIGH RISK TYPES DNA CERVI REBEKAH HPV18 DNA Negati ve negati ve Not Available [address], [place], [address], 02/04/2023 16:08:59 02/02/20 23 02/01/2023 HPV HIGH RISK TYPES DNA CERVI REBEKAH final diagnosis See note below This patie nt's sampl e is negat kassie for HPV DNA. This test was devel oped and its perfo rmanc e andrea cteri stics deter mined by the [facility] . It has not been clear ed or appro tosin by the FDA. The labor atory is regul ated under CLIA as quali fied to perfo rm high- compl exity testi ng. This test is used for clini rebekah purpo ses. It shoul d not be regar ded as inves tigat ional or for resea rch. METHO DOLOG Y: The Pamella Rita 4800 syste m uses autom ated extra ction , simul taneo us ampli ficat ion of HPV (L1 regio n) and beta- globi n, follo wed by real time detec tion of fluor escen t label ed HPV and beta globi n using speci fic oligo nucle otide probe s. The test speci fical ly ident ifies types HPV 16 DNA and HPV 18 DNA while concu rrent ly detec ting the rest of the high risk types (31, 33, 35, 39, 45, 51, 52, 56, 58, 59, 66 or 68). COMME NTS: This test is not inten ded for use as a scree see devic e for woman under age 30 with hetal l cervi rebekah cytol ogy. Resul ts shoul d be corre lated with cytol ogic and histo logic findi ngs. Close clini rebekah follo wup is recom anuj d. Not Available [address], [place], [address], 02/04/2023 16:08:59 02/02/20 23 02/01/2023 bacte rial vagin osis + vagin itis panel , vagin al gardnerella positi ve negati ve abnormal Not Available Xo713_zegaerr [address], [address], 02/01/2023 10:04:04 02/02/20 23 02/01/2023 bacte rial vagin osis + vagin itis panel , vagin al trichomonas negati ve negati ve normal Not Available Xr305_ovqafrw [address], [address], 02/01/2023 10:04:04 02/02/20 23 02/01/2023 bacte rial vagin osis + vagin itis panel , vagin al avery negati ve negati ve normal Not Available [address], [address], 02/01/2023 10:04:04 02/13/20 23 02/12/2023 bacte rial vagin osis + vagin itis panel , vagin al gardnerella positi ve negati ve abnormal Not Available Sm759_vujqtzcgem gibbons [address], [place], [address], 02/12/2023 11:30:51 02/13/20 23 02/12/2023 bacte rial vagin osis + vagin itis panel , vagin al trichomonas negati ve negati ve normal Not Available At646_erujjnv shai [address], [place], [address], 02/12/2023 11:30:51 02/13/20 23 02/12/2023 bacte rial vagin osis + vagin itis panel , vagin al avery negati ve negati ve normal Not Available On175_zgcncuj shai [address], [place], [address], 02/12/2023 11:30:51 02/13/20 23 02/12/2023 urina lysis , dipst ick, auto Unknown Analyte Clean Catch Not Available Nv249_kawoh pa shai [address], [place], [address], 02/12/2023 11:30:42 02/13/20 23 02/12/2023 urina lysis , dipst ick, auto Unknown Analyte negati ve Not Available Bq409_rgzwp pa shai [address], [place], [address], 02/12/2023 11:30:42 02/13/20 23 02/12/2023 urina lysis , dipst ick, auto Unknown Analyte negati ve Not Available Yo524_djabl pa rtners_fartun [address], [place], [address], 02/12/2023 11:30:42 02/13/20 23 02/12/2023 urina lysis , dipst ick, auto Unknown Analyte negati ve Not Available Ir744_yahgs pa rtnersrosanna [address], [place], [address], 02/12/2023 11:30:42 02/13/20 23 02/12/2023 urina lysis , dipst ick, auto Unknown Analyte 1.020 Not Available CcPresley_ janniea rtmanuel [address], [place], [address], 02/12/2023 11:30:42 02/13/20 23 02/12/2023 urina lysis , dipst ick, auto Unknown Analyte negati ve Not Available Mq711_ttqwd pa rtnersrosanna [address], [place], [address], 02/12/2023 11:30:42 02/13/20 23 02/12/2023 urina lysis , dipst ick, auto Unknown Analyte 7.5 Not Available CcPresley_ janniea rtmanuel [address], [place], [address], 02/12/2023 11:30:42 02/13/20 23 02/12/2023 urina lysis , dipst ick, auto Unknown Analyte negati ve Not Available Nm093_oqiuc pa rtnersrosanna [address], [place], [address], 02/12/2023 11:30:42 02/13/20 23 02/12/2023 urina lysis , dipst ick, auto Unknown Analyte negati ve Not Available Aa985_cupvqcarolynn gibbons [address], [place], [address], 02/12/2023 11:30:42 02/13/20 23 02/12/2023 urina lysis , dipst ick, auto Unknown Analyte negati ve Not Available Kt983_etwfgcarolynn [facility], [place], [address], 02/12/2023 11:30:42 02/13/20 23 02/12/2023 urina lysis , dipst ick, auto Unknown Analyte dark yellow Not Available Oe442_irefwcarolynn villafanafartun [address], [place], [address], 02/12/2023 11:30:42 02/13/20 23 02/12/2023 urina lysis , dipst ick, auto Unknown Analyte slight ly cloudy Not Available Dj260_deviycarolynn villafanazion[address], [place], [address], 02/12/2023 11:30:42 04/02/19 24 04/02/2023 bacte rial vagin osis + vagin itis panel , vagin al gardnerella positi ve negati ve abnormal Not Available It428_gievtls arnoldo[address], [place], [address], 04/01/2023 10:09:21 04/02/19 24 04/02/2023 bacte rial vagin osis + vagin itis panel , vagin al trichomonas negati ve negati ve normal Not Available Uj552_xretwgj arnoldo[address], [place], [address], 04/01/2023 10:09:21 04/02/19 24 04/02/2023 bacte rial vagin osis + vagin itis panel , vagin al avery negati ve negati ve normal Not Available Vv857_dqcxzql rtners_[facility] [address], [place], [address], 04/01/2023 10:09:21 04/02/19 24 04/02/2023 urina lysis , dipst ick, auto Unknown Analyte Clean Catch Not Available Zj457_whjbh pa rtners_[address], [place], [address], 04/01/2023 10:09:28 04/02/19 24 04/02/2023 urina lysis , dipst ick, auto Unknown Analyte negati ve Not Available Qp711_eshrk pa rtners[address], [place], [address], 04/01/2023 10:09:28 04/02/19 24 04/02/2023 urina lysis , dipst ick, auto Unknown Analyte negati ve Not Available Vb546_kvtzv pa rtners[address], [place], [address], 04/01/2023 10:09:28 04/02/19 24 04/02/2023 urina lysis , dipst ick, auto Unknown Analyte negati ve Not Available Fq721_vmuiq pa rtners[address], [place], [address], 04/01/2023 10:09:28 04/02/19 24 04/02/2023 urina lysis , dipst ick, auto Unknown Analyte 1.010 Not Available CcPresley_ ropa rtarnoldo[address], [place], [address], 04/01/2023 10:09:28 04/02/19 24 04/02/2023 urina lysis , dipst ick, auto Unknown Analyte trace Not Available CcPresley_ divyaa rtcasatooele [facility], [place], [address], 04/01/2023 10:09:28 04/02/19 24 04/02/2023 urina lysis , dipst ick, auto Unknown Analyte 6.5 Not Available CcPresley_ janniea rtarnoldo[address], [place], [address], 04/01/2023 10:09:28 04/02/19 24 04/02/2023 urina lysis , dipst ick, auto Unknown Analyte negati ve Not Available Dg091_llcsj pa rtarnoldo[address], [place], [address], 04/01/2023 10:09:28 04/02/19 24 04/02/2023 urina lysis , dipst ick, auto Unknown Analyte 0.2 Not Available CcPresley_ divyaa rtarnoldo[address], [address], 04/01/2023 10:09:28 04/02/19 24 04/02/2023 urina lysis , dipst ick, auto Unknown Analyte negati ve Not Available Qe091_ywvpb pa rtners[address], [address], 04/01/2023 10:09:28 04/02/19 24 04/02/2023 urina lysis , dipst ick, auto Unknown Analyte negati ve Not Available Gd008_jywsk pa rtners[address], [place], [address], 04/01/2023 10:09:28 04/02/19 24 04/02/2023 urina lysis , dipst ick, auto Unknown Analyte yellow Not Available Cc003_ ropa shai [address], [place], [address], 04/01/2023 10:09:28 04/02/19 24 04/02/2023 urina lysis , dipst ick, auto Unknown Analyte slight ly cloudy Not Available Qn649_qebse pa shai [address], [place], [address], 04/01/2023 10:09:28 04/08/19 24 04/08/2023 URINE CULTU RE urine culture SEE RESULT S BELOW SPECI MEN SOURC E Urine Urine , Midst ream CULTU RE RESUL TS <10,0 00 CFU/m L Uroge nital alexis REPOR T STATU S FINAL 04/10 Not Available [address], [place], [address], 04/10/2023 07:07:53 04/08/19 24 04/08/2023 urina lysis , dipst ick, auto Unknown Analyte Clean Catch Not Available Hl400_fbvty pa rtmanuel [address], [place], [address], 04/08/2023 12:58:00 04/08/19 24 04/08/2023 urina lysis , dipst ick, auto Unknown Analyte negati ve Not Available Go919_lvgdf pa shai [address] [place], [address], 04/08/2023 12:58:00 04/08/19 24 04/08/2023 urina lysis , dipst ick, auto Unknown Analyte negati ve Not Available Ip207_enxhg pa rtners_fartun [address], [place], [address], 04/08/2023 12:58:00 04/08/19 24 04/08/2023 urina lysis , dipst ick, auto Unknown Analyte negati ve Not Available Dv654_yepdz pa rtnersrosanna [address], [place], [address], 04/08/2023 12:58:00 04/08/19 24 04/08/2023 urina lysis , dipst ick, auto Unknown Analyte 1.010 Not Available Cc003_ metropa rtnersrosanna [address], [place], [address], 04/08/2023 12:58:00 04/08/19 24 04/08/2023 urina lysis , dipst ick, auto Unknown Analyte negati ve Not Available Ru603_sznth pa rtnersrosanna [address], [place], [address], 04/08/2023 12:58:00 04/08/19 24 04/08/2023 urina lysis , dipst ick, auto Unknown Analyte 7.0 Not Available Cc003_ metropa rtnersrosanna [address], [place], [address], 04/08/2023 12:58:00 04/08/19 24 04/08/2023 urina lysis , dipst ick, auto Unknown Analyte negati ve Not Available Qx122_xezjc pa rtnersrosanna [address], [place], [address], 04/08/2023 12:58:00 04/08/19 24 04/08/2023 urina lysis , dipst ick, auto Unknown Analyte 0.2 Not Available Cc003_ metropa rtners_lilyda [address], [place], [address], 04/08/2023 12:58:00 04/08/19 24 04/08/2023 urina lysis , dipst ick, auto Unknown Analyte negati ve Not Available Cs625_gbytunivia felipetooele valley hospitaldinesh [address], [place], [address], 04/08/2023 12:58:00 04/08/19 24 04/08/2023 urina lysis , dipst ick, auto Unknown Analyte modera te Not Available Hv818_fudpfcarolynn gibbons [address], [place], [address], 04/08/2023 12:58:00 04/08/19 24 04/08/2023 urina lysis , dipst ick, auto Unknown Analyte yellow Not Available Jimmy felipe[address] [place], [place], [address], 04/08/2023 12:58:00 04/08/19 24 04/08/2023 urina lysis , dipst ick, auto Unknown Analyte slight ly cloudy Not Available Nu571_impyzcarolynn gibbons [address], [place], [address], 04/08/2023 12:58:00 05/12/19 24 05/12/2023 bacte rial vagin osis + vagin itis panel , vagin al gardnerella positi ve negati ve abnormal Not Available Puja gibbons [address], [place], [address], 05/12/2023 10:11:47 05/12/19 24 05/12/2023 bacte rial vagin osis + vagin itis panel , vagin al trichomonas negati ve negati ve normal Not Available Fd302_hamctsi rtarnoldo_fartun le [address] [facility] [address], [place], [address], 05/12/2023 10:11:47 05/12/19 24 05/12/2023 bacte rial vagin osis + vagin itis panel , vagin al avery negati ve negati ve normal Not Available Tm849_hozadgq rtners_fartun le [address] [facility] [address], [place], [address], 05/12/2023 10:11:47 07/06/19 24 07/06/2023 MAMMO , scree see, bilat eral No observ ation record ed. [facility] [place] [id number] [address], [place], [address], 07/08/2023 19:23:00 Result Notes None recorded. Problems Name Problem SNOMED Code Status Onset Date Resolution Date Notes Provider Name and Address Organization Details Recorded Time Past history of section 775537255 Active 2020 Blake cunningham [place] - [facility] 1 17:15:34 Multigravida of advanced maternal age 558300223 Active 2020 Blake cunningham [place] - [facility] 1 17:15:41 Vitamin D deficiency 81482119 Active Not Available [facility] 0 05:10:31 Problem Notes None recorded. Procedures Surgical History Date Name Laterality Status Provider Name and Address Organization Details Recorded Time 4 Date of Last Mammogram completed Harriet Nieto [place] [facility] 07/07/2023 13:33:35 2 Date of Last Pap Smear completed Raegan Song (TERMED) [place] - [facility] 01/26/2023 12:30:03 8 section completed Not Available [facility] 10/12/2019 05:09:17 Imaging Results Imaging Date Name Status LastModified by Organiz ation Details LastModified Time 07/06/2023 MAMMO, screening, bilateral completed [facility] [place] [address] [facility] [address], [place], [address], 07/08/2023 19:23:00 Procedure Notes None recorded. Medical Equipment None [...] ONCE EVERY 3 DAYS FOR 2 DOSES 05/11 completed Not Available Not Available Not Available [...] Not Available prednisone 20 mg tablet TAKE 2 TABLETS (40 MG) BY MOUTH DAILY FOR 5 DAYS. 05/11 completed Not Available Not Available Not Available terconazole 0.8 % vaginal cream INSERT 1 APPLICATO RFUL EVERY DAY BY VAGINAL ROUTE AT BEDTIME FOR 3 DAYS. active Not Available Not Available No t Available Pyridium 200 mg tablet Take 1 tablet 3 times a day by oral route for 2 days. 01/26 completed Not Available Not Available Not Available metronidazo le 500 mg tablet TAKE 1 TABLET EVERY 12 HOURS BY ORAL ROUTE FOR 7 DAYS. active Not Available Not Available [...] completed Not Available Not Available Not Available hydrocortis one acetate 25 mg rectal suppository INSERT 1 SUPPOSITO RY (25 MG) RECTALLY TWO TIMES DAILY NEEDED (FOR RECTAL PAIN OR BLEEDING OR ITCHING) FOR UP TO 14 DAYS. active Not Available Not Available No t Available ciclopirox 8 % topical solution APPLY [...] TAKE 1 TABLET BY MOUTH TWICE DAILY 05/11 completed Not Available Not Available Not Available dicyclomine 10 mg capsule TAKE 1 CAPSULE (10 MG) BY MOUTH 3 TIMES DAILY 12/31 completed Not Available Not Available Not Available Vaniqa 13.9 % topical cream APPLY A THIN LAYER TO THE AFFECTED AREA TWICE DAILY 12/31 completed Not Available Not Available Not Available spironolact one 50 mg tablet active Not Available Not Available Not Available amoxicillin 875 mg-potassiu m clavulanate 125 [...] completed Not Available Not Available Not Available 03/27 (28) 1 mg-20 mcg (21)/75 mg (7) tablet TAKE 1 TABLET EVERY DAY BY ORAL ROUTE. active Not Available Not Available No t Available nitrofurant oin monohydrate /macrocryst als 100 [...] Not Available Not Available Not Available estradiol 10 mcg vaginal tablet INSERT 10MCG VAGINALLY NIGHTLY FOR 2 WEEKS, THEN 2 TIMES PER WEEK. active Not Available Not Available No t Available Probiotic active Not Available Not Michelle ilable Not Available Glydo 2 % mucosal jelly in applicator APPLY TOPICALLY TWICE A DAY NEEDED FOR PAIN active Not Available Not Available No t Available Vitals Date Recorded Body height Body mass index (BMI) Body weight Heart rate Systolic blood pressure Diastolic blood pressure Provider Name and Address Organization Details Last Updated DateTime 3 167.64 cm 34.9 kg/m2 28166.6 7 g 64 /min 118 mm[Hg] 82 mm[Hg] Raegan Song (TERMED) [facility] BLAST[facility] HELPER 3 09:58:03 Date Recorded Body height Body mass index (BMI) Body weight Heart rate Systolic blood pressure Diastolic blood pressure Provider Name and Address Organization Details Last Updated DateTime 3 167.64 cm 35.1 kg/m2 41110.7 g 63 /min 114 mm[Hg] 75 mm[Hg] Raegan Dunawayic (TERMED) [facility] BLAST[facility] HELPER 3 13:26:28 Date Recorded Body height Body mass index (BMI) Body weight Heart rate Systolic blood pressure Diastolic blood pressure Provider Name and Address Organization Details Last Updated DateTime 4 167.64 cm 33.7 kg/m2 64331.3 7 g 64 /min 125 mm[Hg] 80 mm[Hg] Raegan Song (TERMED) [facility] BLAST[facility] HELPER 4 13:12:10 Date Recorded Body height Body mass index (BMI) Body weight Heart rate Systolic blood pressure Diastolic blood pressure Provider Name and Address Organization Details Last Updated DateTime 4 167.64 cm 33.6 kg/m2 72084.2 1 g 72 /min 124 mm[Hg] 85 mm[Hg] Raegan Dunawayic (TERMED) [facility] BLAST[facility] HELPER 4 13:02:56 Date Recorded Body height Body mass index (BMI) Body weight Provider Name and Address Organization Details Last Updated DateTime 05/12/2023 167.64 cm 33.6 kg/m2 02717.21 g aRegan Dunawayic (TERMED) [facility] HELPER 05/12/2023 10:03:36 Social History Question Answer Notes LastModified by Organizat ion Details LastModified Time Tobacco Smoking Status Never Smoker Tobacco *Status: Never Not Available [facility] 10/16/2019 11:59:10 Do You Have [...] available 02/01/2023 Are You Currently Employed? Yes [email or web address] Information not available 01/26/2022 What Type Of Diet Are You Following? GLUTENFREE No Sugar And Dairy Information not available 02/01/2023 What Is The Highest Grade Or Level Of School You Have Completed Or The Highest Degree You Have Received? 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 Less Than 1 Time Per Week Information not available 02/01/2023 History Of Domestic Violence No Denies Any History Of Domestic Violence Information not available 10/16/2019 Spouse/Partners Name Sekou Rivas Information not available 02/01/2023 Ethnic Background White Or [email or web address] Information not available 01/26/2022 Are You Passively Exposed To Smoke? No Information not available 02/01/2023 Performs Monthly Self-breast Exam? No Does Not Perform Monthly Breast Exams Information not available 01/21/2021 What Is Your Relationship Status? [email or web address] Information not available 01/26/2022 Are You Sexually Active? Yes Currently Sexually Active Information not available 01/21/2021 Do You Use Any Illicit Or Recreational Drugs? No Information not available 02/01/2023 Has Tobacco Cessation Counseling Been Provided? Yes Information not available 02/01/2023 On What Date Was Tobacco Cessation Counseling Provided? 02/01/2023 Information not available 02/01/2023 Are You Currently In School? No [email or web address] Information not available 01/26/2022 Sex: Unknown Functional Status Question Answer Note LastModified by Organization D etails LastModified Time What is your exercise level? None Information not available 02/01/2023 Mental Status None recorded. Family History Nothing Reported Notes:No pertinent family hi story Medical History Condition Response Endocrinology- Vitamin Deficiency Y Weight Management/Obesity Y Gynecological History Statement/Question Response History of Endometriosis N History of Abnormal PAP N History of Recurrent Ovarian Cysts N HPV Test Negative Total lifetime partners More than 5 Date of Last Mammogram 07/06/2023 Date of LMP 04/28/2023 Sexual Orientation Heterosexual Date of Last Diabetes [...] Total 3 Immunizations Vaccine Type Date Status Note Provider Nam e and Address Organization Details Recorded Time Tdap 07/23/2020 completed Ayden cunningham [facility] 07/23/2020 15:22:22 Tdap 11/22/2017 completed Not Available [facility] 10/12/2019 05:09:39 Tdap 01/15/2014 completed Not Available [facility] 10/12/2019 05:09:39 Influenza, split virus, quadrivalent, PF 11/22/2017 completed Heron FarmerTERMEDKRISTA bowles [facility] 01/21/2021 11:39:02 Past Encounters Encounter ID Performer Location Encounter Start Date Encounter Closed Date Diagnosis/Indication Diagnosis SNOMED-CT Code Diagnosis ICD10 Code [id number] TEENA LO MD [id number] [facility] [address] [place] [address] 01/09/2020 14:26:08 01/09/2020 17:28:44 Routine care 787712531 Z34.91 [id number] MAURISIO FRAIRE PA-C [id number] [facility] [id number] [place] [address] 2 01/09/2020 14:47:07 01/09/2020 16:01:59 Gestation period, 8 weeks 84501629 Z3A.08 Multigravi da of advanced maternal age 302619665 O09.529 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 741461091 Z87.42 Past pregn clara history of section 892013822 Z98.890 RhD negative 222033689 Z 01.83 Morbid obesity 279846932 E66.01 [id number] MD SEAN TAYLOR001_MET RO_[address] [address] 02/06/2020 12:12:48 02/07/2020 09:27:44 00267411 Z33.1 Sinusitis 42778122 J32.9 screening 2437 57733 Z36.9 [id number] MAURISIO FRAIRE PA-C [id number]_TUL RO_[address] [address] 03/05/2020 10:05:01 03/05/2020 10:44:40 [id number] MD SEAN TAYLOR001_MET RO_[address] [address] 03/19/2020 10:21:47 03/19/2020 11:38:31 Irregular heart beat 747850042 R00.8 [id number] MD JESSIE TAYLOR_MET RO[address] [address] 2 03/20/2020 15:31:39 03/20/2020 16:28:51 Mass of left breast 3711113312 9679363 N63.20 Irregular heart beat 361 046176 R00.8 [id number] MD JESSIE TAYLOR_MET RO_[address] [address] 2 04/02/2020 10:06:42 04/04/2020 10:00:40 [id number] MD SEAN TAYLOR001_MET RO[address] [address] 04/02/2020 09:04:36 04/02/2020 09:52:32 screening 913650305 Z36.9 [id number] MD SEAN TAYLOR001_MET [place] [address] [facility] [address] [place] [address] 05/02/2020 09:04:54 05/02/2020 14:07:22 [id number] TEENA LO MD [id number] RO_WOODBU RY [address] [address] 05/16/2020 10:39:26 05/21/2020 14:15:54 [id number] TEENA LO MD [id number] RO_[place] [address] [place], [place] [address] [address] [address] 1 05/16/2020 10:39:28 05/16/2020 11:19:29 Low lying placenta 909023156 O44.42 [id number] JOSH SHERON DAUGHERTY [id number]_HZR RO_[place] [address] [place] [address] 1 05/30/2020 10:02:15 05/30/2020 12:07:40 screening 527134092 Z36.89 RhD negative 085271231 Z 01.83 Venereal d isease screening 758174511 Z11.3 High risk care 391432118 O09.93 Gestation period, 28 weeks 57493225 Z3A.28 Multigravi da of advanced maternal age 956467536 O09.529 Low lying placenta 06537 2007 O44.43 [id number] MAURISIO FRAIRE PA-C JO897_UHR RO_[place] [address] [place] [address] 05/27/2020 14:20:27 05/27/2020 14:37:11 [id number] Teena Lo MD [id number]_XWN RO_[place] [address] [facility] [address] [address] 05/30/2020 10:02:15 05/30/2020 10:34:14 Low lying placenta 665067605 O44.42 [id number] Teena Lo MD GQ406_WAP CRISTINA S_EMMANUELBUR Y [address] [place], [place] [address] [facility],[address] [address] 06/13/2020 09:01:05 06/13/2020 13:45:03 [id number] Teena Lo MD VT833_QFF ROPARTNER S_WOODBUR Y SIMONE SALDIVAR [address] [place] [address] 1 06/26/2020 13:19:07 06/26/2020 17:42:02 Morbid obesity 148164540 E66.01 [id number] Teena Lo MD ZM311_RVC DIVYAARTNER SJESSICA Y Michael INMANSIMONE CONTRERAS [address] [place] [address] 1 06/26/2020 13:18:50 06/26/2020 13:57:29 Low lying placenta 727369838 O44.43 Z3A.32 [id number] JOSH SHERON DAUGHERTY QO600_YBU DIVYAARTNER SJESSICA Y Michael REEDER,SIMONE DANIELS [address] [place] [address] 1 07/09/2020 13:56:43 07/09/2020 14:39:17 High risk 37673023 O09.93 Gestation period, 34 weeks 20931564 Z3A.34 Multigravi da of advanced maternal age 795183592 O09.044 [id number] Teena oL MD [id number]_QEC DIVYAARTNER SJESSICA Y [facility] REEDER,SIMONEKemar DANIELS [address] [place] [address] 1 07/23/2020 13:07:51 07/24/2020 11:29:55 91520065 Z33.1 Gestation period, 36 weeks 59287639 Z3A.36 Administra tion of diphtheria, pertussis, and tetanus vaccine 079243693 Z23 [id number] MD SEAN Saeed003_MET DIVYAARTNER S_PRASHANT Y Michaela SIMONE CHICAS [address] [place] [address] 1 07/23/2020 13:07:32 07/23/2020 13:48:23 Multigravida of advanced maternal age 648822285 O09.529 Z3A.36 [id number] MD SEAN Saeed003_MET DIVYAARTNER S_PRASHANT Y Michaela MEHUL REEDER,SIMONE DANIELS [address] [place] [address] 1 08/08/2020 09:04:02 08/08/2020 16:08:00 [id number] Z33.1 [id number] Robbin Kenny MD HW424_LOK CRISTINA SWAIN Y Michael REEDER,SIMONE TE [address] [place] [address] 1 07/30/2020 10:12:03 07/30/2020 10:35:49 Multigravida of advanced maternal age 935252111 O09.523 Z3A.37 [id number] JOSH SHERON DAUGHERTY RS533_XNB CRISTINA SWAIN Y Michael REEDER,SIMONE TE [address] [place] [address] 07/30/2020 10:11:58 07/30/2020 12:16:40 High risk 34212063 O09.93 Multigravi da of advanced maternal age 949721639 O09.523 Past pregn clara history of section 886189273 Z98.890 Gestation period, 37 weeks 39521704 Z3A.37 [id number] MD SEAN Saeed003_MET DIVYAJOHNY SWAIN Y Michael REEDER,SIMONE TE [address] [place] [address] 08/08/2020 09:03:42 08/08/2020 09:36:46 Multigravida of advanced maternal age 643379058 O09.523 Z3A.38 [id number] MD SEAN Saeed003_MET DIVYAJOHNY SWAIN Y Michael REEDER,[place] [address] 08/22/2020 08:45:32 08/26/2020 10:26:41 Acute sinusitis 56833555 J01.90 Postoperative visit 1836 20455 Z09 Dysuria 65057950 R30.9 [id number] MD SEAN Saeed003_MET DIVYACOLLINREENA BRYNN Y Michael REEDER,[place] [address] 09/24/2020 11:48:37 09/24/2020 16:50:13 Postoperative care 610577559 Z48.89 state, 6 weeks 50225077 Z39.2 Morbid obesity 143890001 E66.01 [id number] MD SEAN Saeed003_MET DIVYACOLLINREENA BRYNN Y Michael REEDER,SIMONE [address] [place] [address] 10/02/2020 15:42:06 10/04/2020 16:43:50 Vaginal lesion 081411644 N94.89 Abscess of Bartholin's gland 11226481 N75.1 [id number] Teena Lo MD WR674_ZJT ROPARTNER S_WOODBUR Y 1875 MEHUL REEDER,SIMONE [address] [place] [address] 10/15/2020 15:30:11 10/16/2020 14:25:22 Increased frequency of urination 432247629 R35.0 Cyst of le ft Bartholin's gland duct 0550521396 4596667 N75.0 [id number] MAURISIO FRAIRE PA-C QO973_YTO ROPARTNER S_LILYDAL E [address] [place] [address],[address] [address] 01/21/2021 11:28:35 01/21/2021 14:55:47 Anemia screening 047479337 Z13.0 Hyperlipid emia screening 827503259 Z13.220 Diabetes m ellitus screening 235597781 Z13.1 Thyroid di sorder screening 475738944 Z13.29 Gynecologi c examination 39298480 Z01.419 Screening for malignant neoplasm of cervix 095674763 Z12.4 [id number] MAURISIO FRAIRE PA-C PS881_JXM ROPARTNER S_LILYDAL E [address] [place] [address] 1 01/26/2022 09:45:51 01/26/2022 13:59:59 Gynecologic examination 75424009 Z01.419 Screening for malignant neoplasm of cervix 871651982 Z12.4 Anemia screening 2828206 07 Z13.0 Diabetes m ellitus screening 713854034 Z13.1 Hyperlipid emia screening 368193554 Z13.220 Obesity 898155911 E66.9 [id number] MAURISIO FRAIRE PA-C FI699_RFC DIVYAARTNER S_LILYDAL E [address] [place] [address] 1 02/09/2022 09:09:09 02/09/2022 12:13:47 Urgent desire to urinate 82952715 R39.15 [id number] DALE TY003_MET DIVYAARTNER S_LILYDAL E [address] [place] [address] 1 06/29/2022 12:18:15 06/29/2022 14:27:42 Pain of left breast 4953898574 N64.4 [id number] DALE TY003_MET DIVYAARTNER S_LILYDAL E [address] [place] [address] 1 08/21/2022 11:49:34 08/21/2022 16:12:26 Urinary symptoms 933902140 R39.9 [id number] DALE TY003_MET CRISTINA S_LILYDLEANNE E [address] [place] [address] 1 12/31/2022 12:37:07 01/01/2023 09:13:14 Vaginitis 52194426 N76.0 Urinary symptoms 3536850 08 R39.9 [id number] DALE TY003_MET CRISTINA S_ZIONND E [address] [place] [address] 1 02/01/2023 09:42:59 02/01/2023 13:58:01 Screening for malignant neoplasm of cervix 770848787 Z12.4 Diabetes m ellitus screening 305546703 Z13.1 Hyperlipid emia screening 311404286 Z13.220 Gynecologi c examination 10235020 Z01.419 Anemia screening 1316833 07 Z13.0 Vaginal irritation 53224 6004 N89.8 Obesity 108316398 E66.9 Female hirsutism 4132013 9 L68.0 [id number] DALE TY003_MET DIVYAARTNER S_LILYDAL E [address] [place] [address] 1 02/12/2023 13:16:17 02/12/2023 15:10:47 Vaginitis 24150577 N76.0 [id number] MAURISIO FRAIRE PA-C UH027_NLM CRISTINA S_LILYDAL E [address] [place] [address] 1 04/02/2023 12:55:29 04/05/2023 13:42:55 Vaginitis 46075289 N76.0 Urinary symptoms 7966859 08 R39.9 [id number] MAURISIO FRAIRE PA-C DK232_QKU CRISTINA S_LILYDAL E [address] [place] [address] 1 04/08/2023 12:44:47 04/08/2023 15:33:25 Urinary symptoms 124556018 R39.9 [id number] MAURISIO FRAIRE PA-C ZS283_UAP CRISTINA S_ZIONAL E [address] [place] [address] 1 05/12/2023 09:59:11 05/12/2023 14:00:16 Vaginitis 33720554 N76.0 Initial pr escription of oral contraception 917866466 Z30.011 Health Concerns Section Related Observation LastModified by Organization Detai ls LastModified Time None Recorded Concern Status LastModified by Organization Details LastModified Time None Recorded Advance Directives Directive N: Does Not have a Health Di rective Payers Encounter Date Sequence Insurance Name Policy Number Policy Silva Covered Member ID Silva Member ID Guarantor Name 02/01/2023 1 [facility] [id number] Shirley Montemayor Volkert [id number] Henny S Volkert 02/12/2023 1 [facility] ([facility]) [id number] Shirley S Volkert [id number] Henny S Volkert 04/02/2023 1 [facility] ([facility]) [id number] Shirley S Volkert [id number] Henny S Volkert 04/08/2023 1 [facility] ([facility]) [id number] Shirley S Volkert [id number] Henny S Volkert 05/12/2023 1 [facility]) [id number] Shirley Montemayor Rob [id number] Henny Montemayor Rob Notes Date Note Type Note Provider Name and Address Organization Details Recorded Time 02/01/2023 text/html Annual Premenopa usal ([facility])Reported bypatient.Patient Relationship To Practice:established patient Current Medical History:active medical problems stable; no recent surgeries or hospitalizations Relevant Family History:family history of breast cancer(paternal aunt); no family history of ovarian cancer; no family history of uterine cancer; no family history of colon cancer Menstrual History:Frequency of Menses: regular Contraceptive Method:satisfied: sterilization Sexually Active:Yes: spouse STI Screen:declines Health/Prevention:Exer cise: no; Multivitamins: yes; Vitamin D: yes; Adequate Calcium Intake: no; Breast Self Exam: no; Seat Belt Use: yes; Safe Sex yes; Tobacco Use: no; Safe at home: yes; Urinary Incontinence: no Mammogram:up-to-date Pap Smear +/- HPV Cotesting:due Thyroid/Lipid Screening:due Colonoscopy:not applicable Patient has:Primary Care Physician: yes Pt presents to clinic for her annual exam. She reports vaginal irritation and would like to be checked for a vaginal infection today. MAURISIO FRAIRE PA-C [id number] [address] [facility],[address], [place], [address], [place] - [facility] 02/01/2023 13:11:28 02/12/2023 text/html Vaginal/ Vulvar Problem ([facility])Reported bypatient.Referred By:self * Location:external; vaginal * Severity:mild * Duration:4 days * Timing:Onset: sudden * Context:recent antibiotics (metrogel); previous vaginitis (02/01/23) * Associated Signs & Symptoms:no fever/chills; no pelvic pain; no vulvar lesion; no odor; no itching;burning; Discharge Pt presents to clinic for evaluation of possible vaginal infection. She reports vaginal burning with discharge since 02/08/23. Pt went on mini vacation and sat in a dirty hot tub that she feels may have contributed to her symptoms. Denies fever, chills, flank pain, dysuria, frequency, urgency, odor. MAURISIO FRAIRE PA-C [id number] [facility],[address], [place], [address], [place] - [facility] [employer] 02/12/2023 15:04:54 04/02/2023 text/html Vaginal/ Vulvar Problem ([facility])Reported bypatient.Referred By:self * Location:external; vaginal * Quality:itching; burning * Severity:moderate * Duration:1 weeks * Timing:Onset: sudden * Context:premenopausal; recent antibiotics; previous vaginitis * Associated Signs & Symptoms:no fever/chills; no pelvic pain; no urinary symptoms; no vulvar lesion; no odor;itching;burning Pt presents to clinic for evaluation of [...] ending her period today. MAURISIO FRAIRE PA-C [id number] [facility],[address], [place], [address], [facility] - [facility] [employer] 04/02/2023 17:15:44 04/08/2023 text/html Vaginal/ Vulvar Problem ([facility])Reported bypatient.Referred By:other * Location:external; vaginal * Quality:itching; burning; pain; back pain * Severity:moderate * Duration:1 months * Timing:recurrent * Context:recent antibiotics (cipro for uti, last dose mon night per pt); previous vaginitis (BV dx on 04/02/2023, pt hasn't started txt for this yet) * Associated Signs & Symptoms:no fever/chills;urinary symptoms; no vulvar lesion; no odor;itching;burning; abdomen and left flank pain, sharp per [...] bladder infection has resolved. MAURISIO FRAIRE PA-C [id number] [facility],[address], [place], [address], [facility] [employer] [facility] 04/08/2023 15:08:47 05/12/2023 text/html Vaginal/ Vulvar Problem ([facility])Reported bypatient.Referred By:self * Location:external; vaginal * Quality:lesions (rectal/anus area); burning; discharge; pain; irritation * Severity:moderate * Duration:1 months * Timing:Onset: gradual; recurrent * Context:premenopausal; recent antibiotics; previous vaginitis (04/02/2023); previous treatments * Associated Signs & Symptoms:no fever/chills; no pelvic pain; no urinary symptoms; no vulvar lesion;burning; discharge, Irritation, Rectal fissure Pt presents to clinic for evaluation of continued vaginal infection. Pt was diagnosed and treated for BV on 04/02/23. Initially her symptoms improved then last week she started having vaginal irritation and burning again. She was seen at Urgent Care on 05/07/23 for a sore near her rectum that was diagnosed as a fissure and her vaginal swab is negative for BV at that time. Since then she noticed increase in discharge and is also having painful intercourse similar to when she has BV or yeast infection. She also reports worsening periods. She reports heavy bleeding with low back pain and almost feeling like she has the flu during her cycles recently. They are using Tubal Ligation for control. MAURISIO FRAIRE PA-C [id number] [facility],[address], [place], [address], [facility] HELPER 05/12/2023 13:08:44 OBGyn Episode Ob Episode Information Episode Created Date Number of Fetuses Patient Bloodtype Patient rh Status Prepregnancy Weight lbs Domestic Partner Domestic Partner Phone Father Name Explosive Technician Status 01/09/20 20 1 O Negative 245 Brighto n CLOSED Fetus Data First Name Last Name Admitted to NICU Weight (g) Sex Living Outcome Pediatric Complications Fetus ID Race Codes Race Delivery Type 3231.84 3 M true Full Term 13370 René Calculation RENÉ Calculation Method Initial René Date Initial Exam Date Initial Exam Provider Initial Ultrasound Date Last Menstrual Period Date Ultra Sound Weeks Gestation Conception by IVF Embryo Age at Transfer Date of Transfer 08/21/19 21 01/09/20 20 01/09/2020 11/14/2019 8 Eighteen To Twenty Week [...] Effacement Cervic Station Type Weight in lbs Pre/Post Dialysis Refused BP Diastolic BP Location Tested BP Systolic BP Type Fetus Heart Rate Present Fetus Movement Comments Flowsheet Date 01/09/2020 Pa Score Blood Edema Fundus Height Fundus Units Glucose Ketones Leukocytes Nitrite Labor Signs Protein Cervic Dilation Cervic Effacement Cervic Station neg none none negative none Negative none neg Type Weight in lbs Pre/Post Dialysis Refused Weight 245.290853235924 BP Diastolic BP Location Tested BP Systolic [...] none Negative neg Type Weight in lbs Pre/Post Dialysis Refused Weight 243.508311104535 BP Diastolic BP Location Tested BP Systolic BP Type 77 102 Fetus Heart Rate Present A Present Fetus Movement Comments REV TESTING ADN WANTS REDO C SECT Flowsheet Date 03/05/2020 Ap Score Blood Edema Fundus Height Fundus Units Glucose Ketones Leukocytes Nitrite Labor Signs Protein Cervic Dilation Cervic Effacement Cervic Station neg none none negative none Negative none neg Type Weight in lbs Pre/Post Dialysis Refused Weight 245.667999704032 BP Diastolic BP Location Tested BP Systolic [...] none Negative neg Type Weight in lbs Pre/Post Dialysis Refused Weight 248.902815071607 BP Diastolic BP Location Tested BP Systolic [...] none Negative neg Type Weight in lbs Pre/Post Dialysis Refused Weight 248.867029363258 BP Diastolic BP Location Tested BP Systolic BP Type 74 104 Fetus Heart Rate Present A Present Fetus Movement Comments INER AGAIN LAST LORIParth EMILIA Pina ANDAPPT WITH CARDS ON Wed [facility] AND HER HUBBY ALSO GOES THERE--LEFT BREAST LUMP AT HOME BUT VERY DENSE SO US OF THAT AREA Flowsheet Date 04/02/2020 Pa Score Blood Edema Fundus Height Fundus Units Glucose Ketones Leukocytes Nitrite Labor Signs Protein Cervic Dilation Cervic Effacement Cervic Station Type Weight in lbs Pre/Post Dialysis Refused BP Diastolic BP Location Tested BP Systolic BP Type Fetus Heart Rate Present Fetus Movement Comments Flowsheet Date 04/02/2020 Pa Score Blood Edema Fundus Height Fundus Units Glucose Ketones Leukocytes Nitrite Labor Signs Protein Cervic Dilation Cervic Effacement Cervic Station neg none 20 wks none small none Negative neg Type Weight in lbs Pre/Post Dialysis Refused BP Diastolic BP Location Tested BP Systolic [...] 1+ Negative trace Type Weight in lbs Pre/Post Dialysis Refused Weight 249.243334158182 BP Diastolic BP Location Tested BP Systolic BP Type 68 120 Fetus Heart Rate Present Fetus Movement Comments Flowsheet Date 05/16/2020 Pa Score Blood Edema Fundus Height Fundus Units Glucose Ketones Leukocytes Nitrite Labor Signs Protein Cervic Dilation Cervic Effacement Cervic Station Type Weight in lbs Pre/Post Dialysis Refused BP Diastolic BP Location Tested BP Systolic BP Type Fetus Heart Rate Present Fetus Movement Comments Flowsheet Date 05/16/2020 Pa Score Blood Edema Fundus Height Fundus Units Glucose Ketones Leukocytes Nitrite Labor Signs Protein Cervic Dilation Cervic Effacement Cervic Station neg 27 wks none negative trace Negative none neg Type Weight in lbs Pre/Post Dialysis Refused Weight 252.749806542114 BP Diastolic BP Location Tested BP Systolic BP Type 120 Fetus Heart Rate Present A Present Fetus Movement A Yes Comments REV [facility] CONSULT AND US TODAY ?ACCRETA SUGGESTION ON US TODAY AND WILL DO ANOTHER US WITH [facility]--IF CONCERN OVER [facility] THAN WANTS TO DEL AT [place] TO AVOID RIOTS IN [place] AND CAN TRANSFER--SINUSITIS AND ON [employer] AND BETTER AND HAD MORE PVC AND THEN DX WITH SINUSITIS Flowsheet Date 05/27/2020 Pa Score Blood Edema Fundus Height Fundus Units Glucose Ketones Leukocytes Nitrite Labor Signs Protein Cervic Dilation Cervic Effacement Cervic Station none 28 cm none Type Weight in lbs Pre/Post Dialysis Refused BP Diastolic BP Location Tested BP Systolic BP Type 78 112 Fetus Heart Rate Present A 146 Present Fetus Movement A Yes Comments Pt presents to clinic for BP check. She had some left upper quadrant pain and was seen at [facility] ED and everything was normal. Her BP was 130's/80's so they advised her to follow up in clinic for BP check. She has an appt with [facility] on 06/06/20 for repeat ultrasound. RTC in 3 days for her scheduled 28wk visit. All questions answered. Flowsheet Date 05/30/2020 Pa Score Blood Edema Fundus Height Fundus Units Glucose Ketones Leukocytes Nitrite Labor Signs Protein Cervic Dilation Cervic Effacement Cervic Station Type Weight in lbs Pre/Post Dialysis Refused BP Diastolic BP Location Tested BP Systolic BP Type Fetus Heart Rate Present Fetus Movement Comments Flowsheet Date 05/30/2020 Pa Score Blood Edema Fundus Height Fundus Units Glucose Ketones Leukocytes Nitrite Labor Signs Protein Cervic Dilation Cervic Effacement Cervic Station neg none negative none Negative none neg Type Weight in lbs Pre/Post Dialysis Refused Weight 253.846911510636 BP Diastolic BP Location Tested BP Systolic BP Type 70 136 64 118 Fetus Heart Rate Present A 144 Fetus Movement A Yes Comments Feeling well. U/S today show s placenta is 1.0 cm from os. EIF continues to be present. She has a follow up with [facility] on 06/06. Will continue restrictions. Baby is [...] Negative none neg Type Weight in lbs Pre/Post Dialysis Refused Weight 257.857273837703 BP Diastolic BP Location Tested BP Systolic BP Type 60 102 Fetus Heart Rate Present A Present Fetus Movement A Yes Comments REV DEL ADN PER [facility] IF ACCRE TTA-DEL 34 WKS [place]IL[place] OR [place]--IF LOW LYING 36 WKS--US GROWTH/BPP 2 WKS Flowsheet Date 06/26/2020 Pa Score Blood Edema Fundus Height Fundus Units Glucose Ketones Leukocytes Nitrite Labor Signs Protein Cervic Dilation Cervic Effacement Cervic Station Type Weight in lbs Pre/Post Dialysis Refused BP Diastolic BP Location Tested BP Systolic BP Type Fetus Heart Rate Present Fetus Movement Comments Flowsheet Date 06/26/2020 Pa Score Blood Edema Fundus Height Fundus Units Glucose Ketones Leukocytes Nitrite Labor Signs Protein Cervic Dilation Cervic Effacement Cervic Station neg none 33 wks none negative none Negative neg Type Weight in lbs Pre/Post Dialysis Refused Weight 261.00062543102 BP Diastolic BP Location Tested BP Systolic [...] Negative none neg Type Weight in lbs Pre/Post Dialysis Refused Weight 263.857319301210 BP Diastolic BP Location Tested BP Systolic [...] Effacement Cervic Station Type Weight in lbs Pre/Post Dialysis Refused BP Diastolic BP Location Tested BP Systolic BP Type Fetus Heart Rate Present Fetus Movement Comments Flowsheet Date 07/23/2020 Pa Score Blood Edema Fundus Height Fundus Units Glucose Ketones Leukocytes Nitrite Labor Signs Protein Cervic Dilation Cervic Effacement Cervic Station neg none 36 wks none negative none Negative neg 0cm Type Weight in lbs Pre/Post Dialysis Refused Weight 265.022995611861 BP Diastolic BP Location Tested BP Systolic [...] 3+ Negative neg Type Weight in lbs Pre/Post Dialysis Refused Weight 261.63209758244 BP Diastolic BP Location Tested BP Systolic [...] Effacement Cervic Station Type Weight in lbs Pre/Post Dialysis Refused BP Diastolic BP Location Tested BP Systolic BP Type Fetus Heart Rate Present Fetus Movement Comments Flowsheet Date 08/08/2020 Pa Score Blood Edema Fundus Height Fundus Units Glucose Ketones Leukocytes Nitrite Labor Signs Protein Cervic Dilation Cervic Effacement Cervic Station neg 38 wks none negative 2+ Negative Cramping trace 0c m 0% -3 Type Weight in lbs Pre/Post Dialysis Refused Weight 269.975606896890 BP Diastolic BP Location Tested BP Systolic BP Type 76 134 Fetus Heart Rate Present A Present Fetus Movement A Yes Comments ba and bpp=10/10 and surg re v and ques answered and def tubal Flowsheet Date 08/22/2020 Pa Score Blood Edema Fundus Height Fundus Units Glucose Ketones Leukocytes Nitrite Labor Signs Protein Cervic Dilation Cervic Effacement Cervic Station Type Weight in lbs Pre/Post Dialysis Refused Weight 264.325084246607 BP Diastolic BP Location Tested BP Systolic [...] values rverby 05/31/2020 Selecting a care provider rverby 05/31/[address]ning/tubal sterilization rverby Third Trimester Discussed Date Discussion Item Discussion Note Discuss ed By 05/31/2020 Anesthesia plans rverby 05/31/2020 movement monitoring rv erby 05/31/2020 Labor signs rverby 05/31/2020 Signs and symptoms of preeclampsia rverby 05/31/2020 Postterm counseling rverby 05/31/2020 Circumcision rverby 05/31/2020 rverby 05/31/2020 depression rverby 05/31/2020 education (n ewborn screening, jaundice, SIDS/safe sleeping position, car seat) rverby 05/31/2020 Family medical leave or disability forms rver Delivery Information Delivery Date Delivery Type Labor Anesthesia Weeks Gestation Incision Type Labor Labor Length Hrs Delivered By Post Complications Tubal Sterilization Discharge Date Comments [facility] 39 Teena Lo MD 08/13 Discharge Information Feeding Method Contraceptive Method Maternal HG B and HCT Levels
[2024-03-03 15:10] VITALS: BP 132/88; PULSE 73; RESP 16; TEMP 36.2; O2SAT 98; BMI 28.6
--- NOTE | 2024-03-03 15:50 | ED.EAR ---
HPI - Ear Problem General Chief complaint: Ear/Nose/Throat Problem Stated complaint: tight throat, had allergy test this am Time Seen by Provider: 03/03/24 15:19 History of Present Illness HPI Narrative: This patient comes in reporting some feeling of tightness in her throat. This occurred a couple hours ago and seems to be related to allergy testing that she had done this morning. She does not report any lightheadedness and has not had any rash or symptoms of angioedema. She had allergy testing done because of ear pain that has been occurring for the past couple months. She has been treated with steroids and antibiotics without much relief. She does have an appointment with ear nose and throat clinic. Related Data Home Medications ?Medication ?Instructions ?Recorded ?Confirmed spironolactone 50 mg tablet 50 mg PO QDAY 12/23/21 03/02/24 B-River Oaks PO QDAY 11/11/22 03/02/24 lactobacillus combination no.4 3 3,000 mmu cells PO QDAY 11/11/22 03/02/24 billion cell capsule (Probiotic) magnesium glycinate mg PO 11/11/22 03/02/24 turmeric root extract 500 mg 500 mg PO QDAY 11/11/22 03/02/24 capsule polyethylene glycol 3350 17 4 g PO ONCE 04/09/23 03/02/24 gram/dose oral powder (Miralax) esomeprazole magnesium 40 mg 40 mg PO Q12H 04/22/23 03/02/24 capsule,delayed release (Nexium) linaclotide 72 mcg capsule 72 mcg PO QAM 02/08/24 03/02/24 (Linzess) Previous Rx's ?Medication ?Instructions ?Recorded hydroxyzine HCl 25 mg tablet See Rx Instructions .Route 10/28/22 .COMPLEX #60 ea estradiol 10 mcg vaginal tablet 10 mcg vaginal QDAY #24 tabs 10/18/23 (Vagifem) alprazolam 0.5 mg tablet 0.5 mg PO BID PRN anxiety #20 tabs 12/27/23 gabapentin 300 mg capsule 300 mg PO 3XD #270 ea 02/29/24 Allergies Allergy/AdvReac Type Severity Reaction Status Date / Time No Known Drug Allergies Allergy Verified 03/02/24 12:52 Review of Systems Status of ROS: Reports: 10 or more systems reviewed and unremarkable except as noted in History and below Narrative: Constitutional: No fevers, no weight gain or loss. Eyes: No discharge. No vision changes. HENT: No congestion, no sore throat. She reports chronic ear pain as described above. Cardiovascular: No chest pain, no palpitations. Respiratory: No shortness of breath, no wheezes, no cough. Gastrointestinal: No abdominal pain, no vomiting, no diarrhea. Genitourinary: No dysuria, no hematuria. Musculoskeletal: Normal range of motion. Skin: No rashes, no pruritis. Neurological: No dizziness, weakness, sensory change, speech change. Endo/Heme/Allergies: No bruising or bleeding. No polydipsia. Pysch: no suicidality, no anxiety, no insomnia. All other systems reviewed and are negative. [facility] Medical History (Updated 03/03/24 @ 15:57 by Lakhwinder Ulrich MD) Chronic ear pain ?H92.09 - Otalgia, unspecified ear (ICD-10) ?G89.29 - Other chronic pain (ICD-10) Bacterial vaginitis ?N76.0 - Acute vaginitis (ICD-10) ?B96.89 - Other specified bacterial agents as the cause of diseases classified elsewhere (ICD-10) Urethritis ?N34.2 - Other urethritis (ICD-10) Radicular pain in left arm ?M79.2 - Neuralgia and neuritis, unspecified (ICD-10) Vulvovaginal pain ?R10.2 - Pelvic and perineal pain (ICD-10) Dysuria ?R30.0 - Dysuria (ICD-10) Yeast vaginitis ?B37.31 - Acute candidiasis of vulva and vagina (ICD-10) Surgical History Status post tubal ligation ?Z98.51 - Tubal ligation status (ICD-10) Status post ?Z98.891 - History of uterine scar from previous surgery (ICD-10) Family History Sister Gallbladder disease Social History Narrative: Employes in [employer]. . Nonsmoker. Alcohol use: 3-4 per year Smoking Status: Never smoker How often do you have a drink containing alcohol: never AUDIT-C Alcohol total score: 0 Non-prescribed substance use: denies use Exam Narrative: Exam Narrative: Constitutional: Well-developed, well-nourished, no acute distress. HEENT: Normocephalic, atraumatic. Tympanic membranes appear normal bilaterally. Neck: Normal range of motion. Nontender. Supple. Heart: Regular. No murmurs. Normal rate. Intact distal pulses. Lungs: Clear to auscultation. No chest discomfort. No wheezes, rhonchi, or rales. Abdomen: Normal bowel sounds. Nontender. No rebound tenderness. Genitalia: Deferred. Back: No midline tenderness. Normal range of motion. Extremities: Normal range of motion. No injury. Skin: Intact. No rash. Warm. No erythema or pallor. Neurologic: No altered sensation. No weakness. Alert and oriented. Psychiatric: No suicidality. No anxiety or depression. No insomnia. Nursing notes and vitals signs are reviewed. Const: Vital Signs, click to edit/add: Vital Signs - 24 hr 03/03/24 15:10 Temperature 97.2 F L Pulse Rate [Pulse Oximeter] 73 Respiratory Rate 16 Blood Pressure [Ri ght Upper Arm] 132/88 Pulse Oximetry 98 Oxygen Delivery Me thod Room Air Course Vital Signs Vital signs: Initial Vital Signs Temperature 97.2 F L 03/03/24 15:10 Temperature Source Temporal Artery Scan 03/03/24 15:10 Pulse Rate 73 03/03/24 15:10 Respiratory Rate 16 03/03/24 15:10 Blood Pressure 132/88 03/03/24 15:10 Blood Pressure Mean 102 03/03/24 15:10 Blood Pressure Position Sitting 03/03/24 15:10 Pulse Oximetry 98 03/03/24 15:10 Oxygen Delivery Method Room Air 03/03/24 15:10 Vital Signs Temperature 97.2 F L 03/03/24 15:10 Pulse Rate 73 03/03/24 15:10 Respiratory Rate 16 03/03/24 15:10 Blood Pressure 132/88 03/03/24 15:10 Pulse Oximetry 98 03/03/24 15:10 Oxygen Delivery Method Room Air 03/03/24 15:10 Temperature 97.2 F L 03/03/24 15:10 Pulse Rate 73 03/03/24 15:10 Respiratory Rate 16 03/03/24 15:10 Blood Pressure 132/88 03/03/24 15:10 Pulse Oximetry 98 03/03/24 15:10 Oxygen Delivery Method Room Air 03/03/24 15:10 Medical Decision Making MDM Narrative Medical decision making narrative: This patient had allergy testing this morning and I did review the results. She felt a subjective tightness in her throat a few hours later. This is been present for a couple hours now at the time of arrival here. She arrives here with normal vital signs and has normal exam. There is no sign of angioedema, anaphylaxis, or rash. The patient did receive an oral dose of dexamethasone. She has taken both Zyrtec and Bere prior to arrival here. She is reassured with a discussion regarding allergens and her current symptoms. I advised her to follow-up with your nose and throat clinic to rule out structural or mechanical issues that are causing her ear pain such as eustachian tube dysfunction. She does have an appointment with ear nose and throat clinic for such evaluation and treatment. Discharge Plan Discharge Clinical Impression: Allergic reaction Patient Disposition: Home, Self-Care Condition: Stable Additional Instructions: Use anti histamine medicines as needed and directed. Follow-up with your nose and throat clinic as scheduled or if possible an early appointment may be obtained with Dr. North Patel. Call [phone] for appointment. Prescriptions: No Action magnesium glycinate 100 mg magnesium capsule PO B-[place] PO QDAY Probiotic 3 billion cell capsule 3,000 mmu cells PO QDAY Rx Instructions: administer with a meal turmeric root extract 500 mg capsule 500 mg PO QDAY Linzess 72 mcg capsule 72 mcg PO QAM spironolactone 50 mg tablet 50 mg PO QDAY polyethylene glycol 3350 [Miralax] 17 gram/dose powder 4 g PO ONCE esomeprazole magnesium [Nexium] 40 mg capsule,delayed release(DR/EC) 40 mg PO Q12H hydroxyzine HCl 25 mg tablet See Rx Instructions .ROUTE .COMPLEX Qty: 60 3RF Dose Instruction: TAKE 1 TABLET (25 MG TOTAL) BY MOUTH 2 (TWO) TIMES A DAY NEEDED FOR ANXIETY. Rx Instructions: TAKE 1 TABLET (25 MG TOTAL) BY MOUTH 2 (TWO) TIMES A DAY NEEDED FOR ANXIETY. estradiol [Vagifem] 10 mcg tablet 10 mcg vaginal QDAY Qty: 24 2RF Rx Instructions: insert vaginally twice per week alprazolam 0.5 mg tablet 0.5 mg PO BID PRN (Reason: anxiety) Qty: 20 0RF gabapentin 300 mg capsule 300 mg PO 3XD Qty: 270 0RF Follow Up/Referrals: Lakhwinder Lau MD [Primary Care Provider] - Stand Alone Forms: MyHealth Info Instructions
[2024-03-03] MEDS: dexAMETHasone 10 MG/ML inj PO (16:05)
== END 2024-03-03 16:10 | disposition home or self-care (01) ==
PROVIDERS: Emergency Provider Emergency Medicine Emergency Medical Services; PCP Family Medicine
DX: H92.03 Otalgia, bilateral (principal); Z01.82 Encounter for allergy testing; T78.40XA Allergy, unspecified, initial encounter
CPT/HCPCS: 99283; 99284; J1100

== ENCOUNTER 2024-03-20 23:22 | Emergency (ER) | payer OTHER, SELFPAY ==
--- OUTSIDE RECORDS SUMMARY | 2024-03-20 23:24 | XMS_ITS ---
Author Organization [facility] Address [address] [place] [address] Care Team Providers Care Woods Overseer Name Role Phone Jaciel Momoberyl Primary Care Provider BENJAMIN Lemos Unavailable [phone] None, None Unavailable Unavailable Allergies No Known [...] Problem Status W/U Status Risk Notes Problem 025906974 Otalgia 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) Active confirmed Problem 082450324 Facial pressure (R44.8) Active confirmed Problem 640914347 History of fibromyalgia (Z87.39) Active confirmed Problem [id number] Bilateral sensorineural hearing loss (H90.3) Active confirmed Vital Signs Height 66 in 02/15/2024 BMI 28.57 kg/m2 02/15/2024 Height-cm 167.64 cm 02/15/2024 Weight-kg 80.29 kg 02/15/2024 Weight 177 lbs 02/15/2024 Procedures Procedure Date Ordered Date Performed Result Body Sit e OTOMICROSCOPIC EAR EXAM 02/15/2024 02/15/2024 N/A Encounters Encounter Location Date Provider Diagnosis [facility] [id number] [address] 02/15/2024 BENJAMIN CARVAJAL Otalgia of both ears [...] previously been seen by Fibromyalgia specialists at [facility] as well as her primary [...] previously been seen by Fibromyalgia specialists at [facility] as well as her primary [...] Henny FRANCES SDOB: [birth year] (43 yo F)Acc No.[id number]:02/15/2024 Patient: Henny RENO Provider: Rahul Carvajal MD :1980 A ge:43 Y S ex:Female Date:02/15/2024 Address:[address] [place], [place] [id number] Pcp:Josie Grissom Subjective: * Chief Complaints: * [...] voice quality. ? E ars: Clinical speech corporate receptionist threshold: N ormal, able to hear normal [...] previously been seen by Fibromyalgia specialists at [facility] as well as her primary [...] microscopy (in-office) * Preventive Medicine: MIPS: B VT Above Normal BMI Follow-up D ietary management education, guidance, and counseling * Follow Up: p lesly,1 Year * * G PATCHING MACHINE OPERATOR Sign off status: Completed true * Provider: Rahul Carvajal MD Date: 04/17/2023 Generated for Ольгаi ng/Ciaran/eTransmitting on: 0 03/20/2024 11:24 PM SKOOG PATCHING MACHINE OPERATOR History and Physical Notes * HPI (History [...] ranasal sinuses non tender Ears Clinical speech corporate receptionist threshold: Norm al, able to hear normal [...]
--- OUTSIDE RECORDS SUMMARY | 2024-03-20 23:24 | XMS_ITS ---
Author Organization [facility] Address [address] [place] [address] Care Team Providers Care Tank Truck Driver Name Role Phone Jaciel Josie Primary Care Provider UnavailBENJAMIN Palmer Unavailable [phone] None, None Unavailable Unavailable Candace Singleton Unavailable [phone] REASON FOR VISIT sinus infection Encounters Encounter Location Date Provider Diagnosis [facility] [address] [place] [address] 02/15/2024 Candace Singleton Bilateral sensorineu ral hearing loss H90.3 and Tinnitus, bilateral H93.13 Assessments Encounter Date Diagnosis (ICD Code) Assessment Notes Treatment Notes Treatment Clinical Notes Section Notes 02/15/2024 Bilateral sensorineural hearing loss (ICD-10 - H90.3) 02/15/2024 Tinnitus, bilateral (ICD-10 - H93.13) Plan Of Treatment Next Appt Details Follow Up: per ENT, Reason: Progress Notes * Henny FRANCES SDOB: [birth year] (43 yo F)Acc No.[id number]:02/15/2024 ENT Referred Audio Patient: Henny RENO Provider: Rahul Singleton :1980 A ge:43 Y S ex:Female Date:02/15/2024 Address:[address] [place] [id number] Pcp:Josie Grissom Subjective: * Chief Complaints: * S inus infection * HPI: A udiology: o P veronica is seen through clinic for a hearing evaluation per Dr. Benjamin Car . See physician's HPI below. Maria Luisa Reinoso Au.D., am documenting and personally performing services for Ignacia Ruiz, CCC-A. Candace Reinoso Au.D., [facility], attest that Ignacia Rivera, has documented and [...] 2557 Comp audio without SRT, Modifiers: 59 92188 Tympanometry jacqueline * Follow Up: p er ENT * * S TECHNICIAN/INSTALLER Sign off status: Completed true * Provider: Rahul Singleton Date: 1 04/17/2023 Generated for Salvador leos/Ciaran/Jodi on: 0 03/20/2024 11:24 PM GLASS TECHNICIAN/INSTALLER History and Physical Notes * HPI (History of Present Illness) Category Sub-Category Detail Notes Category Not es Audiology o Patient is seen through clinic for a hearing evaluation per Dr. Benjamin Car . See physician's HPI below Kemar, Ignacia Rivera, am documenting and personally performing services for Ignacia Ruiz, [facility]. Candace Reinoso Au.D., [facility], attest that Ignacia Rivera, has documented and [...]
--- OUTSIDE RECORDS SUMMARY | 2024-03-20 23:25 | XMS_ITS | Continuity of Care Document ---
Author Name NwHIN User [email or web address] llowed Address Unknown Organization Unknown Address Unknown Procedures FILTER APPLIED:Only known Procedures with Onset Date within the last 5 years Procedure Date Procedure Provider Additiona l Information Status CREATININE (87825) Compl eted TRICHOMONAS VAGINALIS AMPLIF (97322) Completed NFCT DS BV RNA VAG FLU ALG (12347) Completed JANELLE DNA AMP PROBE (74503) Completed TRICHOMONAS VAGINALIS AMPLIF (83006) Completed JANELLE DNA AMP PROBE (40091) Completed NFCT DS BV RNA VAG FLU ALG (23756) Completed NFCT DS BV RNA VAG FLU ALG (48803) Completed TRICHOMONAS VAGINALIS AMPLIF (09988) Completed URINE CULTURE/COLONY COUNT (65042) Completed MYCOPLASMA (29736) Compl eted JANELLE DNA AMP PROBE (44887) Completed URINE CULTURE/COLONY COUNT (21048) Completed CHLMYD TRACH DNA AMP PROBE (56909) Completed TRICHOMONAS VAGINALIS AMPLIF (79275) Completed JANELLE DNA AMP PROBE (76464) Completed NFCT DS BV RNA VAG FLU ALG (01716) Completed N.GONORRHOEAE DNA AMP PROB (04612) Completed URINE CULTURE/COLONY COUNT (30761) Completed URINE CULTURE/COLONY COUNT (92612) Completed EMERGENCY DEPT VISIT MOD MDM (69690) Completed EMERGENCY DEPT VISIT HI MDM (93415) Completed THER/PROPH/DIAG INJ IV PUSH (36640) Completed MEASURE BLOOD OXYGEN LEVEL (67817) Completed ELECTROCARDIOGRAM TRACING (83309) Completed RESP VIRUS 3-5 TARGETS (57498) Completed FIBRIN DEGRADATION QUANT (56716) Completed COMPLETE CBC W/AUTO DIFF WBC (31190) Completed ASSAY OF TROPONIN QUANT (17568) Completed ASSAY OF LIPASE (47264) Completed URINALYSIS AUTO W/SCOPE (73177) Completed COMPREHEN METABOLIC PANEL (74508) Completed CT ANGIOGRAPHY CHEST (99054) Completed CT MAXILLOFACIAL W/O DYE (80157) Completed CT HEAD/BRAIN W/O DYE (66881) Completed ROUTINE VENIPUNCTURE (73688) Completed TX/PRO/DX INJ NEW DRUG ADDON (54183) Completed Encounters FILTER APPLIED:Only known Encounters with Admission Date within the last 5 years Encounter Location Admission Discharge Billing Code Consultant Malika jaffe Emergency Carla Rosen Emergency Emergency Emergency Emergency Outpatient Annamarie Colon Outpatient Juan J Lau Outpatient June [facility] Outpatient June [facility] Outpatient Yadiel Tabares Outpatient Yadiel Tabares Outpatient June [facility] Outpatient [id number] JJ EDDY Outpatient [id number] MICHELLE JONES [facility] [id number] TRAN QUIROS
--- OUTSIDE RECORDS SUMMARY | 2024-03-20 23:25 | XMS_ITS | Data Portability ---
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 Plan of Treatment Reminders Order Date Submit Date Provider Last Modified By Organization Details Last Modified Time Details Appointments None recorded. Lab lipid panel, serum 2022 023 [facility], [address] [facility], [address], [place], [address], 3 15:49:12 bacterial vaginosis + vaginitis panel, vaginal 2022 023 apetersen 35 Zw679_hicdvlo rtners_fartun le, [address] [facility], [address], [place], [address], 3 13:01:20 hemoglobin A1c, QN, blood 2022 023 [facility], [address] [facility], [address], [place], [address], 3 15:49:11 CBC 2022 023 [facility], [address] [facility], [address], [place], [address], 3 15:49:09 Pap test, slide(s), cervical 2022 023 [facility], [address] [facility], [address], [place], [address], 3 16:08:46 urinalysis, dipstick, auto 2022 023 apetersen 35 Xj621_uksycnd rtners_ziona le, [address] [facility], [address], [place], [address], 3 13:45:18 bacterial vaginosis + vaginitis panel, vaginal 2022 023 [facility] Hz470_ikpwlvg rtners_ziona le, [address] [place] [address], [address], [place], [address], 3 14:41:00 urinalysis, dipstick, auto 2023 024 apetersen 35 Bs173_xgbmkgo rtners_lilyda le, [address] [place] [address], [address], [place], [address], 4 13:55:52 bacterial vaginosis + vaginitis panel, vaginal 2023 024 apetersen 35 Et316_cjzummk rtners_shaliniyda le, [address] [place] [address], [address], [place], [address], 4 17:01:44 urinalysis, dipstick, auto 2023 024 apetersen 35 Jo612_jawpvbn rtners_lilyda le, [address] [place] [address], [address], [place], [address], 4 13:33:54 culture, urine 2023 024 [facility], [address] [facility], [address], [place], [address], 4 07:07:53 bacterial vaginosis + vaginitis panel, vaginal 2023 024 apetersen 35 Up497_uvmbvap rtners_fartun le, [address] [facility], [address], [place], [place], [address], 4 13:03:16 Referral None recorded. Procedures None recorded. Surgeries None recorded. Imaging None recorded. Medication Orders spironolact one 50 mg tablet 2022 023 [facility], [address] [place] [address], [place], [address], 3 10:56:44 Metrogel Vaginal 0.75 % (37.5 mg/5 gram) 2022 023 [facility], [address] [place] [address], [place], [address], 4 13:10:07 clindamycin HCl 300 mg capsule 2022 023 [facility], [address] [place] [address], [place], [address], 4 13:07:00 Metrogel Vaginal 0.75 % (37.5 mg/5 gram) 2022 023 [facility], [address] [place] [address], [place], [address], 4 13:07:10 Diflucan 150 mg tablet 2023 024 [facility], [address] [place] [address], [place], [address], 4 10:05:15 metronidazo le 0.75 % (37.5 mg/5 gram) vaginal gel 2023 024 [facility], [address] [facility], [place], [address], 4 17:14:55 metronidazo le 500 mg tablet 2023 024 [facility], [address] [place] [address], [place], [address], 4 13:09:09 terconazole 0.8 % vaginal cream 2023 024 [facility], [address] [facility], [place], [address], 4 13:09:08 Junel FE / (28) 1 mg-20 mcg (21)/75 mg (7) tablet 2023 024 [facility], [address] [place] [address], [place], [address], 4 13:09:09 Patient TargetsNo targets recorded. Patient Instructions Encounter Date Encounter Id Patient Instructions Last Modified By Organization Details Last Modified Time 02/01/2023 [id number] venous blood draw* [email or web address] Not avai lable 02/01/2023 10:56:02 RTC in [...] cervical or colon cancers. All questions answered. [email or web address] Not available 02/01/2023 13:10:01 02/12/2023 [id number] Sent BDAffirm. Notified pt swab is positive for BV and sent script. Plan to treat and then can try MetroGel 1-2x/wk maintenance to prevent reoccurance. Cotton underware only. Do no wear underware at night. Avoid feminine wipes, douches, pantyliner use. Change clothes immediately after exercising. All questions answered. [email or web address] Not available 02/12/2023 15:04:28 04/02/2023 [id number] Sent BDAffirm. Notified pt that swab is positive for BV and sent scripts. RTC after completing Cipro to confirm UTI has fully resolved. Cotton underware only. Do no wear underware at night. Avoid feminine wipes, douches, pantyliner use. Change clothes immediately after exercising. All questions answered. [email or web address] Not available 04/02/2023 17:15:35 04/08/2023 [id number] Sent Urine Culture. Will call pt with results. Always wipe from front to back. Urinate immediately after intercourse. Increase PO hydration. Drink unsweetened cranberry juice. All questions answered. [email or web address] Not available 04/08/2023 15:08:08 05/12/2023 [id number] Sent BDAffirm. Notified pt that swab is positive for BV and sent script to pharmacy. Cotton underware only. Do no wear underware at night. Avoid feminine wipes, douches, pantyliner use. Change clothes immediately after exercising. All questions answered. [email or web address] Not available 05/12/2023 13:08:20 Reason for Referral None Reported. Results Created Date Observation Date Name Description Value Unit Range Abnormal Flag Note LastModifiedBy Organization Detail LastModifiedTime 02/02/2002/01/2023 CBC WITH PLATE LETS WBC count 8.4 10e3/ uL 4.0-11 .0 Not Available [address], [place], [address], 02/01/2023 15:49:09 02/02/20 23 02/01/2023 CBC WITH PLATE LETS RBC count 5.34 10e6/ uL 3.80-5 .20 high Not Available [facility] [address] [facility] [address], [place], [address], 02/01/2023 15:49:09 02/02/2002/01/2023 CBC WITH PLATE LETS hemoglobin 15.0 g/dL 11.7-1 5.7 Not Available [address], [place], [address], 02/01/2023 15:49:09 02/02/20 23 02/01/2023 CBC WITH PLATE LETS hematocrit 46.6 % 35.0-4 7.0 Not Available [address], [place], [address], 02/01/2023 15:49:09 02/02/2002/01/2023 CBC WITH PLATE LETS MCV 87 fL 78-100 Not Available [address], [place], [address], 02/01/2023 15:49:09 02/02/2002/01/2023 CBC WITH PLATE LETS MCH 28.1 pg 26.5-3 3.0 Not Available [address], [place], [address], 02/01/2023 15:49:09 02/02/2002/01/2023 CBC WITH PLATE LETS MCHC 32.2 g/dL 31.5-3 6.5 Not Available [address], [place], [address], 02/01/2023 15:49:09 02/02/2002/01/2023 CBC WITH PLATE LETS RDW 13.8 % 10.0-1 5.0 Not Available [address], [place], [address], 02/01/2023 15:49:09 02/02/2002/01/2023 CBC WITH PLATE LETS platelet count 330 10e3/ uL 150-45 0 Not Available [address], [place], [address], 02/01/2023 15:49:09 02/02/2002/01/2023 HEMOG LOBIN A1C hemoglobin A1C 5.2 % <5.7 Hetal l <5.7% Predi abete s 5.7-6 .4% Diabe bela 6.5% or highe r Note: Adopt ed from ADA conse nsus guide lines . Not Available [address], [place], [address], 02/01/2023 15:49:10 02/02/20 23 02/01/2023 LIPID PANEL cholesterol 198 mg/dL <200 Not Available [address], [place], [address], 02/01/2023 15:49:12 02/02/20 23 02/01/2023 LIPID PANEL triglyceride s 102 mg/dL <150 Not Available [address], [place], [address], 02/01/2023 15:49:12 02/02/20 23 02/01/2023 LIPID PANEL direct measure HDL 53 mg/dL >=50 Not Available [address], [place], [address], 02/01/2023 15:49:12 02/02/20 23 02/01/2023 LIPID PANEL LDL cholesterol calculated 125 mg/dL <=100 high Not Available [address], [place], [address], 02/01/2023 15:49:12 02/02/20 23 02/01/2023 LIPID PANEL [...] or equal to 220 mg/dL Not Available [address], [place], [address], 02/01/2023 15:49:12 02/02/20 23 02/01/2023 GYNEC OLOGI C CYTOL OGY (PAP SMEAR ) gynecologic cytology SEE RESULT S BELOW SPECI MEN SOURC E [place] ing Cervi x BKR LAB AP [facility] INTER PRETA TION: Negat kassie for Intra [...] or other cance rs. BKR LAB AP [employer] ADEQU ACY: Satis facto ry for evalu [...] this testi ng was compl eted at [facility] atory Not Available [address], [place], [address], 02/04/2023 16:08:46 02/02/20 23 02/01/2023 HPV HIGH RISK TYPES DNA CERVI REBEKAH other HR HPV Negati ve negati ve Not Available [address], [place], [address], 02/04/2023 16:08:59 02/02/20 23 02/01/2023 HPV HIGH RISK TYPES DNA CERVI REBEKAH HPV16 DNA Negati ve negati ve Not Available [address], [place], [address], 02/04/2023 16:08:59 02/02/20 23 02/01/2023 HPV HIGH RISK TYPES DNA CERVI REBEKAH HPV18 DNA Negati ve negati ve Not Available [address], [place], [address], 02/04/2023 16:08:59 02/02/20 23 02/01/2023 HPV HIGH RISK TYPES DNA CERVI REBEKAH final diagnosis See note below This patie nt's sampl e is negat kassie for HPV DNA. This test was devel oped and its perfo rmanc e andrea cteri stics deter mined by the [facility], [...] wup is recom anuj d. Not Available [address], [place], [address], 02/04/2023 16:08:59 02/02/20 23 02/01/2023 bacte rial vagin osis + vagin itis panel , vagin al gardnerella positi ve negati ve abnormal Not Available [id number]_trfdrgq [address], [address], 02/01/2023 10:04:04 02/02/20 23 02/01/2023 bacte rial vagin osis + vagin itis panel , vagin al trichomonas negati ve negati ve normal Not Available Md479_nxymtcy [address], [address], 02/01/2023 10:04:04 02/02/20 23 02/01/2023 bacte rial vagin osis + vagin itis panel , vagin al avery negati ve negati ve normal Not Available [address], [address], 02/01/2023 10:04:04 02/13/20 23 02/12/2023 bacte rial vagin osis + vagin itis panel , vagin al gardnerella positi ve negati ve abnormal Not Available Aa392_fsgselbgem gibbons [address], [place], [address], 02/12/2023 11:30:51 02/13/20 23 02/12/2023 bacte rial vagin osis + vagin itis panel , vagin al trichomonas negati ve negati ve normal Not Available Ar846_iuvsetr shai [address], [place], [address], 02/12/2023 11:30:51 02/13/20 23 02/12/2023 bacte rial vagin osis + vagin itis panel , vagin al avery negati ve negati ve normal Not Available Oi680_bhoohld shai [address], [place], [address], 02/12/2023 11:30:51 02/13/20 23 02/12/2023 urina lysis , dipst ick, auto Unknown Analyte Clean Catch Not Available Rk277_mpruo pa shai [address], [place], [address], 02/12/2023 11:30:42 02/13/20 23 02/12/2023 urina lysis , dipst ick, auto Unknown Analyte negati ve Not Available Kv861_kxrpy pa shai [address], [place], [address], 02/12/2023 11:30:42 02/13/20 23 02/12/2023 urina lysis , dipst ick, auto Unknown Analyte negati ve Not Available Td106_temit pa rtners_fartun [address], [place], [address], 02/12/2023 11:30:42 02/13/20 23 02/12/2023 urina lysis , dipst ick, auto Unknown Analyte negati ve Not Available Dy140_nrave pa rtnersrosanna [address], [place], [address], 02/12/2023 11:30:42 02/13/20 23 02/12/2023 urina lysis , dipst ick, auto Unknown Analyte 1.020 Not Available CcPresley_ janniea rtmanuel [address], [place], [address], 02/12/2023 11:30:42 02/13/20 23 02/12/2023 urina lysis , dipst ick, auto Unknown Analyte negati ve Not Available Vw918_ymfnp pa rtnersrosanna [address], [place], [address], 02/12/2023 11:30:42 02/13/20 23 02/12/2023 urina lysis , dipst ick, auto Unknown Analyte 7.5 Not Available CcPresley_ janniea rtmanuel [address], [place], [address], 02/12/2023 11:30:42 02/13/20 23 02/12/2023 urina lysis , dipst ick, auto Unknown Analyte negati ve Not Available Ls618_cmbsf pa rtnersrosanna [address], [place], [address], 02/12/2023 11:30:42 02/13/20 23 02/12/2023 urina lysis , dipst ick, auto Unknown Analyte negati ve Not Available Vd425_vtxgmcarolynn gibbons [address], [place], [address], 02/12/2023 11:30:42 02/13/20 23 02/12/2023 urina lysis , dipst ick, auto Unknown Analyte negati ve Not Available Ri449_uudrfcarolynn [facility], [place], [address], 02/12/2023 11:30:42 02/13/20 23 02/12/2023 urina lysis , dipst ick, auto Unknown Analyte dark yellow Not Available Tg043_jrzhncarolynn villafanafartun [address], [place], [address], 02/12/2023 11:30:42 02/13/20 23 02/12/2023 urina lysis , dipst ick, auto Unknown Analyte slight ly cloudy Not Available Wn342_jrupscarolynn villafanazion[address], [place], [address], 02/12/2023 11:30:42 04/02/19 24 04/02/2023 bacte rial vagin osis + vagin itis panel , vagin al gardnerella positi ve negati ve abnormal Not Available Su932_zmigjyt arnoldo[address], [place], [address], 04/01/2023 10:09:21 04/02/19 24 04/02/2023 bacte rial vagin osis + vagin itis panel , vagin al trichomonas negati ve negati ve normal Not Available Sy750_jjixdgn arnoldo[address], [place], [address], 04/01/2023 10:09:21 04/02/19 24 04/02/2023 bacte rial vagin osis + vagin itis panel , vagin al avery negati ve negati ve normal Not Available Dx630_uxqfmwd rtners[facility] [address], [place], [address], 04/01/2023 10:09:21 04/02/19 24 04/02/2023 urina lysis , dipst ick, auto Unknown Analyte Clean Catch Not Available Ci652_zxknm pa rtners_[address], [place], [address], 04/01/2023 10:09:28 04/02/19 24 04/02/2023 urina lysis , dipst ick, auto Unknown Analyte negati ve Not Available Yc200_odolr pa rtners[address], [place], [address], 04/01/2023 10:09:28 04/02/19 24 04/02/2023 urina lysis , dipst ick, auto Unknown Analyte negati ve Not Available Sw951_nnkug pa rtners[address], [place], [address], 04/01/2023 10:09:28 04/02/19 24 04/02/2023 urina lysis , dipst ick, auto Unknown Analyte negati ve Not Available Nj039_hhndt pa rtners[address], [place], [address], 04/01/2023 10:09:28 04/02/19 24 04/02/2023 urina lysis , dipst ick, auto Unknown Analyte 1.010 Not Available CcPresley_ ropa rtarnoldo[address], [place], [address], 04/01/2023 10:09:28 04/02/19 24 04/02/2023 urina lysis , dipst ick, auto Unknown Analyte trace Not Available CcPresley_ divyaa [facility], [place], [address], 04/01/2023 10:09:28 04/02/19 24 04/02/2023 urina lysis , dipst ick, auto Unknown Analyte 6.5 Not Available CcPresley_ janniea rtarnoldo[address], [place], [address], 04/01/2023 10:09:28 04/02/19 24 04/02/2023 urina lysis , dipst ick, auto Unknown Analyte negati ve Not Available Cv807_orxml pa rtarnoldo[address], [place], [address], 04/01/2023 10:09:28 04/02/19 24 04/02/2023 urina lysis , dipst ick, auto Unknown Analyte 0.2 Not Available CcPresley_ divyaa rtarnoldo[address], [address], 04/01/2023 10:09:28 04/02/19 24 04/02/2023 urina lysis , dipst ick, auto Unknown Analyte negati ve Not Available Um970_ztvzi pa rtners[address], [address], 04/01/2023 10:09:28 04/02/19 24 04/02/2023 urina lysis , dipst ick, auto Unknown Analyte negati ve Not Available Or584_vdlao pa rtners[address], [place], [address], 04/01/2023 10:09:28 04/02/19 24 04/02/2023 urina lysis , dipst ick, auto Unknown Analyte yellow Not Available Cc003_ ropa shai [address], [place], [address], 04/01/2023 10:09:28 04/02/19 24 04/02/2023 urina lysis , dipst ick, auto Unknown Analyte slight ly cloudy Not Available Sq284_qarkk pa shai [address], [place], [address], 04/01/2023 10:09:28 04/08/19 24 04/08/2023 URINE CULTU RE urine culture SEE RESULT S BELOW SPECI MEN SOURC E Urine Urine , Midst ream CULTU RE RESUL TS <10,0 00 CFU/m L Uroge nital alexis REPOR T STATU S FINAL 04/10 Not Available [address], [place], [address], 04/10/2023 07:07:53 04/08/19 24 04/08/2023 urina lysis , dipst ick, auto Unknown Analyte Clean Catch Not Available Up801_cpfdv pa rtmanuel [address], [place], [address], 04/08/2023 12:58:00 04/08/19 24 04/08/2023 urina lysis , dipst ick, auto Unknown Analyte negati ve Not Available Af983_dmkap pa shai [address] [place], [address], 04/08/2023 12:58:00 04/08/19 24 04/08/2023 urina lysis , dipst ick, auto Unknown Analyte negati ve Not Available Vg614_ruhkv pa rtners_fartun [address], [place], [address], 04/08/2023 12:58:00 04/08/19 24 04/08/2023 urina lysis , dipst ick, auto Unknown Analyte negati ve Not Available Jd513_wyjyf pa rtnersrosanna [address], [place], [address], 04/08/2023 12:58:00 04/08/19 24 04/08/2023 urina lysis , dipst ick, auto Unknown Analyte 1.010 Not Available Cc003_ metropa rtnersrosanna [address], [place], [address], 04/08/2023 12:58:00 04/08/19 24 04/08/2023 urina lysis , dipst ick, auto Unknown Analyte negati ve Not Available Ue473_lfaox pa rtnersrosanna [address], [place], [address], 04/08/2023 12:58:00 04/08/19 24 04/08/2023 urina lysis , dipst ick, auto Unknown Analyte 7.0 Not Available Cc003_ metropa rtnersrosanna [address], [place], [address], 04/08/2023 12:58:00 04/08/19 24 04/08/2023 urina lysis , dipst ick, auto Unknown Analyte negati ve Not Available Ee147_jafek pa rtnersrosanna [address], [place], [address], 04/08/2023 12:58:00 04/08/19 24 04/08/2023 urina lysis , dipst ick, auto Unknown Analyte 0.2 Not Available Cc003_ metropa rtners_lilyda [address], [place], [address], 04/08/2023 12:58:00 04/08/19 24 04/08/2023 urina lysis , dipst ick, auto Unknown Analyte negati ve Not Available Al618_thuwhnivia [facility] [address], [place], [address], 04/08/2023 12:58:00 04/08/19 24 04/08/2023 urina lysis , dipst ick, auto Unknown Analyte modera te Not Available Fo197_fkpsscarolynn gibbons [address], [place], [address], 04/08/2023 12:58:00 04/08/19 24 04/08/2023 urina lysis , dipst ick, auto Unknown Analyte yellow Not Available Jimmy felipe[address] [place], [place], [address], 04/08/2023 12:58:00 04/08/19 24 04/08/2023 urina lysis , dipst ick, auto Unknown Analyte slight ly cloudy Not Available Ln452_mxnhccarolynn gibbons [address], [place], [address], 04/08/2023 12:58:00 05/12/19 24 05/12/2023 bacte rial vagin osis + vagin itis panel , vagin al gardnerella positi ve negati ve abnormal Not Available Puja gibbons [address], [place], [address], 05/12/2023 10:11:47 05/12/19 24 05/12/2023 bacte rial vagin osis + vagin itis panel , vagin al trichomonas negati ve negati ve normal Not Available Pt913_nvrvana rtarnoldo_fartun le [address] [facility] [address], [place], [address], 05/12/2023 10:11:47 05/12/19 24 05/12/2023 bacte rial vagin osis + vagin itis panel , vagin al avery negati ve negati ve normal Not Available Ol016_lcfsnri rtners_fartun le [address] [facility] [address], [place], [address], 05/12/2023 10:11:47 07/06/19 24 07/06/2023 MAMMO , scree see, bilat eral No observ ation record ed. [facility] [place] [address] [address], [place], [address], 07/08/2023 19:23:00 Result Notes None recorded. Problems Name Problem SNOMED Code Status Onset Date Resolution Date Notes Provider Name and Address Organization Details Recorded Time Past history of section 583162418 Active 2020 Blake cunningham [place] - [facility] 1 17:15:34 Multigravida of advanced maternal age 263861906 Active 2020 Blake cunningham [place] [facility] 1 17:15:41 Vitamin D deficiency 58775311 Active Not Available [facility] 0 05:10:31 Problem Notes None recorded. Procedures Surgical History Date Name Laterality Status Provider Name and Address Organization Details Recorded Time 4 Date of Last Mammogram completed [facility]iet[facility] [place] [facility] 07/07/2023 13:33:35 2 Date of Last Pap Smear completed Raegan Song (TERMED) [place] - [facility] 01/26/2023 12:30:03 8 section completed Not Available [facility] 10/12/2019 05:09:17 Imaging Results Imaging Date Name Status LastModified by Organiz ation Details LastModified Time 07/06/2023 MAMMO, screening, bilateral completed [facility] [place] [address] [facility] [address], [place], [address], 07/08/2023 19:23:00 Procedure Notes None recorded. Medical [...] Updated DateTime 3 167.64 cm 34.9 kg/m2 99886.6 7 g 64 /min 118 mm[Hg] 82 mm[Hg] Raegan Song (TERMED) [facility] 3 09:58:03 Date Recorded Body height Body mass index (BMI) Body weight Heart rate Systolic blood pressure Diastolic blood pressure Provider Name and Address Organization Details Last Updated DateTime 3 167.64 cm 35.1 kg/m2 20269.7 g 63 /min 114 mm[Hg] 75 mm[Hg] Raegan Dunawayic (TERMED) [facility] 3 13:26:28 Date Recorded Body height Body mass index (BMI) Body weight Heart rate Systolic blood pressure Diastolic blood pressure Provider Name and Address Organization Details Last Updated DateTime 4 167.64 cm 33.7 kg/m2 78410.3 7 g 64 /min 125 mm[Hg] 80 mm[Hg] Raegan Song (TERMED) [facility] 4 13:12:10 Date Recorded Body height Body mass index (BMI) Body weight Heart rate Systolic blood pressure Diastolic blood pressure Provider Name and Address Organization Details Last Updated DateTime 4 167.64 cm 33.6 kg/m2 70447.2 1 g 72 /min 124 mm[Hg] 85 mm[Hg] Raegan Dunawayic (TERMED) [facility] 4 13:02:56 Date Recorded Body height Body mass index (BMI) Body weight Provider Name and Address Organization Details Last Updated DateTime 05/12/2023 167.64 cm 33.6 kg/m2 73286.21 g Raegan Dunawayic (TERMED) [facility] 05/12/2023 10:03:36 Social History Question Answer Notes [...] Blood Transfusion Acceptable In An Emergency? Yes [email or web address] Information not available 01/26/2022 What Is Your Level Of Caffeine Consumption? None Information not available 02/01/2023 Are You Currently Employed? Yes [email or web address] Information not available 01/26/2022 What Type Of Diet Are You Following? GLUTENFREE No Sugar And Dairy Information not available 02/01/2023 What Is The Highest Grade Or Level Of School You Have Completed Or The Highest Degree You Have Received? 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 Less Than 1 Time Per Week Information not available 02/01/2023 History Of Domestic Violence No Denies Any History Of Domestic Violence Information not available 10/16/2019 Spouse/Partners Name Sekou Rivas Information not available 02/01/2023 Ethnic Background White Or Information not available 01/26/2022 Are You Passively Exposed To Smoke? No Information not available 02/01/2023 Performs Monthly Self-breast Exam? No Does Not Perform Monthly Breast Exams Information not available 01/21/2021 What Is Your Relationship Status? [email or web address] Information not available 01/26/2022 Are You Sexually Active? Yes Currently Sexually Active Information not available 01/21/2021 Do You Use Any Illicit Or Recreational Drugs? No Information not available 02/01/2023 Has Tobacco Cessation Counseling Been Provided? Yes Information not available 02/01/2023 On What Date Was Tobacco Cessation Counseling Provided? 02/01/2023 Information not available 02/01/2023 Are You Currently In School? No Information not available 01/26/2022 Sex: Unknown Functional [...] Recorded Time Tdap 07/23/2020 completed [facility] 07/23/2020 15:22:22 Tdap 11/22/2017 completed Not Available [facility] 10/12/2019 05:09:39 Tdap 01/15/2014 completed Not Available [facility] 10/12/2019 05:09:39 Influenza, split virus, quadrivalent, PF 11/22/2017 completed Heron FarmerTERMEDMadelaine [facility]unningham [facility] 01/21/2021 11:39:02 Past Encounters Encounter ID Performer Location Encounter Start Date Encounter Closed Date Diagnosis/Indication Diagnosis SNOMED-CT Code Diagnosis ICD10 Code Diagnosis Note [id number] TEENA LO MD [id number]_OST [facility] [id number] [place] [address] 2 01/09/2020 14:26:08 01/09/2020 17:28:44 Routine care 666123743 Z34.91 [id number] MAURISIO FRAIRE PA-C EP615_AOX [facility] [id number] [place] [address]479 2 01/09/2020 14:47:07 01/09/2020 16:01:59 Gestation period, 8 weeks 22598464 Z3A.08 Multigravi da of advanced maternal age 828082431 O09.529 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 916326679 Z87.42 Prometrium QHS until 10-12wks Past pregn clara history of section 811002039 Z98.890 intoleranc e to labor RhD negative 467458889 Z 01.83 Needs Rhogam at 28wks Morbid obesity 649822305 E66.01 BMI=40 [id number] TEENA LO MD WR725_XOZ [address] [address] 2 02/06/2020 12:12:48 02/07/2020 09:27:44 04525586 Z33.1 Sinusitis 05249320 J32.9 has had bf adn feels like starting so z ronen and if worse call screening 2437 74880 Z36.9 had standard last pg so inatal done [id number] MAURISIO FRAIRE PA-C NS470_HMM [address] [address] 2 03/05/2020 10:05:01 03/05/2020 10:44:40 [id number] TEENA LO MD FQ159_FYA [address] [address] 2 03/19/2020 10:21:47 03/19/2020 11:38:31 Irregular heart beat 648019728 R00.8 ER AND HAS EVENT MONITER AND DONE ON THURS AND CARDIAC ECHO ORDERED AND REC FITBIT FOR PULSE [id number] TEENA LO MD QM059_DVL [address] [address] 2 03/20/2020 15:31:39 03/20/2020 16:28:51 Mass of left breast 2501516262 6476360 N63.20 US UPPER AND OUTER AREA LEFT BREAST Irregular heart beat 361 192039 R00.8 ER AND HAS EVENT MONITER AND DONE ON TH AND CARDIAC ECHO ORDERED AND REC FITBIT FOR PULSE--ER AGAIN SO CARDS APPT FRI [id number] MD SEAN TAYLOR001_MET [address] [address] 2 04/02/2020 10:06:42 04/04/2020 10:00:40 [id number] TEENA LO MD IA751_DNY RO_CHETEK [address] [place] [address] 2 04/02/2020 09:04:36 04/02/2020 09:52:32 screening 693325226 Z36.9 had standard last pg so inatal done [id number] TEENA LO MD PW381_GSM RO_WOODBU RY 187 [facility] TE [address] [place] [address] 1 05/02/2020 09:04:54 05/02/2020 14:07:22 [id number] TEENA LO MD AU800_ZCU RO_WOODBU RY 187 [facility],[address] [address] 1 05/16/2020 10:39:26 05/21/2020 14:15:54 [id number] TEENA LO MD TS012_YVE RO_WOODBU RY [address] [address] 1 05/16/2020 10:39:28 05/16/2020 11:19:29 Low lying placenta 515068742 O44.42 [id number] JOSH GRETELUzielSHERON GS002_MYO RO_WOODBU RY [address] [address] 1 05/30/2020 10:02:15 05/30/2020 12:07:40 screening 535137746 Z36.89 RhD negative 525066090 Z 01.83 Venereal d isease screening 578188964 Z11.3 High risk care 116812122 O09.93 Gestation period, 28 weeks 17847712 Z3A.28 Multigravi da of advanced maternal age 562556037 O09.529 Low lying placenta 86620 2007 O44.43 [id number] MAURISIO FRAIRE PA-C ET255_WDU RO_MAPLEW OOD [address] [facility] [address] [place] [address] 05/27/2020 14:20:27 05/27/2020 14:37:11 [id number] Teena Lo MD XA966_APN RO_WOODBU RY 187 [address] [place] [address] 05/30/2020 10:02:15 05/30/2020 10:34:14 Low lying placenta 562951308 O44.42 [id number] Teena Lo MD OM970_AJO DIVYAARTNER SJESSICA Y [facility] [place] [address] 06/13/2020 09:01:05 06/13/2020 13:45:03 [id number] Teena Lo MD TT000_WHN ROPARTNER SJESSICA Y Michaela[address] [place], [place] [address] [address] 1 06/26/2020 13:19:07 06/26/2020 17:42:02 Morbid obesity 136278734 E66.01 [id number] Teena Lo MD BX245_QCS DIVYAARTNER SJESSICA Y [address] [place], [place] [address]ROHAN REEDERSIMONEKemar DANIELS [address] [place] [address] 1 06/26/2020 13:18:50 06/26/2020 13:57:29 Low lying placenta 046357022 O44.43 Z3A.32 risk of accreta [id number] SHERON YANG OE776_YLV DIVYAARTNER SJESSICA Y [address] [place], [place] [address]ROHAN REEDERSIMONEKemar DANIELS [address] [place] [address] 1 07/09/2020 13:56:43 07/09/2020 14:39:17 High risk 60734686 O09.93 Gestation period, 34 weeks 40033458 Z3A.34 Multigravi da of advanced maternal age 676446216 O09.606 [id number] Teena Lo MD KQ630_RHW ROPARTNER SJESSICA Y Michaela[address] [place], [place] [address]SIMONE ROSE [address] [place] [address] 1 07/23/2020 13:07:51 07/24/2020 11:29:55 01960726 Z33.1 Gestation period, 36 weeks 96340405 Z3A.36 Administra tion of diphtheria, pertussis, and tetanus vaccine 449355705 Z23 [id number] MD SEAN Saeed003_MET DIVYAARTREENA SJESSICA Y [address] [place], [place] [address]ROHAN REEDERSIMONE DANIELS [address] [place] [address] 1 07/23/2020 13:07:32 07/23/2020 13:48:23 Multigravida of advanced maternal age 355351563 O09.529 Z3A.36 BPP w/ EFW. AMA and history of low lying placenta that has resolved per [facility] [id number] Teena Lo MD VK394_LTB CRISTINA S_WappwolfLOI Y [facility] MEDSEEK,SIMONEKemar DANIELS [address] [place] [address] 1 08/08/2020 09:04:02 08/08/2020 16:08:00 73456306 Z33.1 [id number] Robbin Kenny MD KQ702_JVG DIVYAARTNER S_WappwolfLOI Y [facility] MEDSEEK,SIMONE JEREMIAH [address] [place] [address]432 1 07/30/2020 10:12:03 07/30/2020 10:35:49 Multigravida of advanced maternal age 446395082 O09.523 Z3A.37 FL measuring <10% [id number] SHERON YANG NA842_CPR ROPARTNER S_WOODBUR Y [facility] MEDSEEK,SIMONEKemar DANIELS [address] [place] [address] 1 07/30/2020 10:11:58 07/30/2020 12:16:40 High risk 34823130 O09.93 Multigravi da of advanced maternal age 066082677 O09.523 Past pregn clara history of section 916921761 Z98.890 Repeat CS with TL scheduled on 08/13/20 at [facility] Gestation period, 37 weeks 53718650 Z3A.37 [id number] Teena Lo MD FE274_IHZ CRISTINA S_WOODLOI Y Michaela MEDSEEK,SIMONEKemar DANIELS [address] [place] [address]781 1 08/08/2020 09:03:42 08/08/2020 09:36:46 Multigravida of advanced maternal age 521412156 O09.523 Z3A.38 [id number] Teena Lo MD ZD830_UZF CRISTINA S_EMMANUELLOI Y [address] [place], [place] [address],SIMONE JEREMIAH [address] [place] [address] 1 08/22/2020 08:45:32 08/26/2020 10:26:41 Acute sinusitis 92149500 J01.90 IF NOT BETTER WITH CLARITIN D DO ZPAK Postoperative visit 1836 84982 Z09 SOME PAIN AT NIGHT SO GIVEN 6 MORE OXY AND CAN DUT IN HALF AND TYLENOL AND MOTRIN REV Dysuria 71910828 R30.9 ?LOW GRADE INF SO UC DONE [id number] Teena Lo MD CQ256_XZQ CRISTINA SWAIN Y [address] [place], [place] [address],[address] [address] 09/24/2020 11:48:37 09/24/2020 16:50:13 Postoperative care 347307012 Z48.89 INCISION GOOD AND ACTIVITY REV state, 6 weeks 11377996 Z39.2 HAD TUBAL AND SWAIN IRREG BF? SO WHEN DONE BF IF NO MENSES 6-8 WKS RTC AND ANNUAL NOV Morbid obesity 629856246 E66.01 [id number] Teena Lo MD MT441_NKE CRISTINA MontemayorARTEMLOI Y [address] [place] [address],[facility] [address] [place] [address] 10/02/2020 15:42:06 10/04/2020 16:43:50 Vaginal lesion 036965810 N94.89 Abscess of Bartholin's gland 79619693 N75.1 small but tender on left so keflex 500 tid [id number] Teena Lo MD QP323_PSE CRISTINA MontemayorMukulPRASHANT Y [address] [place] [address] [address] [address] 1 10/15/2020 15:30:11 10/16/2020 14:25:22 Increased frequency of urination 836296648 R35.0 NO BURNING BUT GREQ SO WILL DO UC Cyst of le ft Bartholin's gland duct 7751612099 8752835 N75.0 CHEF CONCIERGE WITH DEEP PALPATION AND NOT AT SURFACE AND SMALL--NO PAIN UNLESS SITTING A LONG TIME AD HASNT ATTEMPTED INTERCOURS E ANDLUBE REV--CYST NOT AT SURFACE AND REV INCISION BUT COULD BE DIFFICULT SINCE DEEP AND SMALL--REC INTERCOURS E WITH LUBE AND IF PAIN RTC AND THEN NO CHOICE BUT TO TRY TO DRAIN AND REV CYST VS ABSCESS--- ANTIBIOTIC S DIDNT REALLY MAKE A DIFFERENCE SO WOULD BE CONSERVATI VE AT THIS TIME BUT IF PAIN WITH INTERCOURS E JUAN LUIS HAVE TO DRAIN--IF WORSE RT ALSO --20 MIN REV RECORDS AND RX AND EXAM AND OPTIONS [id number] DALE TY003_MET ROPARTNER S_LILYDAL E [address] [place] [address] [place] [address] 01/21/2021 11:28:35 01/21/2021 14:55:47 Anemia screening 274277774 Z13.0 Hyperlipid emia screening 586794978 Z13.220 Diabetes m ellitus screening 683792236 Z13.1 Thyroid di sorder screening 350444703 Z13.29 Gynecologi c examination 28921896 Z01.419 Screening for malignant neoplasm of cervix 497832163 Z12.4 [id number] DALE TY003_MET DIVYAARTNER S_LILYDAL E [address] [place] [address] 1 01/26/2022 09:45:51 01/26/2022 13:59:59 Gynecologic examination 38377447 Z01.419 Screening for malignant neoplasm of cervix 888734613 Z12.4 Anemia screening 3487733 07 Z13.0 Diabetes m ellitus screening 076726554 Z13.1 Hyperlipid emia screening 110113327 Z13.220 Obesity 799135931 E66.9 [id number] DALE TY003_MET DIVYAARTNER S_LILYDAL E [address] [place] [address] [place] [address] 1 02/09/2022 09:09:09 02/09/2022 12:13:47 Urgent desire to urinate 72595465 R39.15 [id number] DALE TY003_MET DIVYAARTNER S_LILYDAL E [address] [place] [address] 1 06/29/2022 12:18:15 06/29/2022 14:27:42 Pain of left breast 2209948007 N64.4 [id number] DALE TY003_MET ROPARTNER S_LILYDAL E [address] [place], [place] [address]JEREMIAH [facility] [place] [address] 1 08/21/2022 11:49:34 08/21/2022 16:12:26 Urinary symptoms 936530169 R39.9 [id number] MAURISIO FRAIRE PA-C LE647_RDC ROPARTNER S_LILYDAL E [address] [place] [address] [place] [address] 1 12/31/2022 12:37:07 01/01/2023 09:13:14 Vaginitis 82663985 N76.0 Urinary symptoms 5560595 08 R39.9 [id number] MAURISIO FRAIRE PA-C CE274_ZOJ ROPARTNER S_LILYDAL E [address] [place] [address] [place] [address] 1 02/01/2023 09:42:59 02/01/2023 13:58:01 Screening for malignant neoplasm of cervix 301612817 Z12.4 Diabetes m ellitus screening 443475361 Z13.1 Hyperlipid emia screening 564766036 Z13.220 Gynecologi c examination 35004343 Z01.419 Anemia screening 1452558 07 Z13.0 Vaginal irritation 80782 6004 N89.8 Obesity 790145735 E66.9 BMI=34.9 Female hirsutism 5763920 9 L68.0 [id number] DALE TY003_MET ROPARTNER S_LILYDAL E [address] [place] [address] [place] [address] 1 02/12/2023 13:16:17 02/12/2023 15:10:47 Vaginitis 30259209 N76.0 [id number] MAURISIO FRAIRE PA-C DM571_TKP ROPARTNER S_LILYDAL E [address] [place] [address] [place] [address] 1 04/02/2023 12:55:29 04/05/2023 13:42:55 Vaginitis 90193858 N76.0 Urinary symptoms 1177077 08 R39.9 currently on her period and on abx for UTI [id number] MAURISIO FRAIRE PA-C FG046_KEY ROPARTNER S_LILYDAL E [address] [facility] [address] [place] [address] 04/08/2023 12:44:47 04/08/2023 15:33:25 Urinary symptoms 878377999 R39.9 [id number] MAURISIO FRAIRE PA-C QA892_VJK CRISTINA SBREANNAAL E [address] [facility] [address] [place] [address] 1 05/12/2023 09:59:11 05/12/2023 14:00:16 Vaginitis 38551467 N76.0 Initial pr escription of oral contraception 837056710 Z30.011 Health Concerns Section Related Observation LastModified by Organization Detai ls LastModified Time None Recorded Concern Status LastModified by Organization Details LastModified Time None Recorded Advance Directives Directive N: Does Not have a Health Di rective Payers Encounter Date Sequence Insurance Name Policy Number Policy Silva Covered Member ID Silva Member ID Guarantor Name 02/01/2023 1 [facility] ([facility] [id number] Shirley S Volkert [id number] Henny S Volkert 02/12/2023 1 [facility] (O) [id number] Shirley S Volkert [id number] Henny S Volkert 04/02/2023 1 [facility] (O) [id number] Shirley S Volkert [id number] Henny S Volkert 04/08/2023 1 [facility] (O) [id number] Shirley S Volkert [id number] Henny S Volkert 05/12/2023 1 [facility] (O) [id number] Shirley S Volkert [id number] Henny S Volkert Notes Date Note Type [...] a vaginal infection today. MAURISIO FRAIRE PA-C [address] [facility] [facility],[address], [place], [address], [facility] 02/01/2023 13:11:28 02/12/2023 text/html Vaginal/ Vulvar Problem [...] dysuria, frequency, urgency, odor. MAURISIO FRAIRE PA-C [address] [facility] [facility],[address], [place], [address], [facility] 02/12/2023 15:04:54 04/02/2023 text/html Vaginal/ Vulvar Problem [...] ending her period today. MAURISIO FRAIRE PA-C [address], [place], [address], [facility] [employer] 04/02/2023 17:15:44 04/08/2023 text/html Vaginal/ Vulvar Problem [...] make sure her bladder infection has resolved. MUARISIO FRAIRE PA-C [address], [place], [address], [facility] [employer] PL[employer] 04/08/2023 15:08:47 05/12/2023 text/html Vaginal/ Vulvar Problem [...] Tubal Ligation for control. MAURISIO FRAIRE PA-C [address] [facility],[address], [place], [address], [facility] [employer] [facility] 05/12/2023 13:08:44 OBGyn Episode Ob Episode Information Episode Created Date Number of Fetuses Patient Bloodtype Patient rh Status Prepregnancy Weight lbs Domestic Partner Domestic Partner Phone Father Name Cargo Trimmer Status 01/09/20 20 1 O Negative 245 Brighto n CLOSED Fetus Data First Name Last Name Admitted to NICU Weight (g) Sex Living Outcome Pediatric Complications Fetus ID Race Codes Race Delivery Type 3231.84 3 M true Full Term 33087 René Calculation Initial René Date Initial Exam [...] Weight in lbs Pre/Post Dialysis Refused Weight 245.125314823716 BP Diastolic BP Location Tested BP Systolic [...] Weight in lbs Pre/Post Dialysis Refused Weight 243.977545937832 BP Diastolic BP Location Tested BP Systolic [...] Weight in lbs Pre/Post Dialysis Refused Weight 245.298137664354 BP Diastolic BP Location Tested BP Systolic [...] Weight in lbs Pre/Post Dialysis Refused Weight 248.267694894922 BP Diastolic BP Location Tested BP Systolic [...] Weight in lbs Pre/Post Dialysis Refused Weight 248.428083418948 BP Diastolic BP Location Tested BP Systolic BP Type 74 104 Fetus Heart Rate Present A Present Fetus Movement Comments INER AGAIN LAST LOU NIETO Yovani ANDAPPT WITH CARDS ON Wed ST BENAVIDEZ [...] Weight in lbs Pre/Post Dialysis Refused Weight 249.759341598690 BP Diastolic BP Location Tested BP Systolic [...] Weight in lbs Pre/Post Dialysis Refused Weight 252.269072532336 BP Diastolic BP Location Tested BP Systolic BP Type 120 Fetus Heart Rate Present A Present Fetus Movement A Yes Comments REV [facility] CONSULT AND US TODAY ?ACCRETA SUGGESTION ON US TODAY AND WILL DO ANOTHER US WITH [facility]--[facility] WANT[facility] DEL AT [facility] TO AVOID RIOTS IN [place] AND CAN [...] upper quadrant pain and was seen at [facility] ED and everything was normal. Her [...] Weight in lbs Pre/Post Dialysis Refused Weight 253.012057579460 BP Diastolic BP Location Tested BP Systolic [...] Weight in lbs Pre/Post Dialysis Refused Weight 257.326030360697 BP Diastolic BP Location Tested BP Systolic BP Type 60 102 Fetus Heart Rate Present A Present Fetus Movement A Yes Comments REV DEL ADN PER [facility] IF ACCRE TTA-DEL 34 WKS [place] OR [place] [facility]--IF LOW LYING 36 WKS--US GROWTH/BPP 2 WKS [...] Weight in lbs Pre/Post Dialysis Refused Weight 261.25133109023 BP Diastolic BP Location Tested BP Systolic [...] Weight in lbs Pre/Post Dialysis Refused Weight 263.074622107517 BP Diastolic BP Location Tested BP Systolic [...] Weight in lbs Pre/Post Dialysis Refused Weight 265.452348692973 BP Diastolic BP Location Tested BP Systolic [...] Weight in lbs Pre/Post Dialysis Refused Weight 261.61774141630 BP Diastolic BP Location Tested BP Systolic [...] Weight in lbs Pre/Post Dialysis Refused Weight 269.481155067224 BP Diastolic BP Location Tested BP Systolic [...] Weight in lbs Pre/Post Dialysis Refused Weight 264.046009544185 BP Diastolic BP Location Tested BP Systolic [...] rverby 05/31/2020 rverby 05/31/2020 depression rverby 05/31/2020 [employer] (n ewborn screening, jaundice, SIDS/safe sleeping position, car seat) rverby 05/31/2020 Family medical leave or disability forms [facility] Delivery Information Delivery Date Delivery Type Labor Anesthesia Weeks Gestation Incision Type Labor Labor Length Hrs Delivered By Post Complications Tubal Sterilization Discharge Date Comments Regional-Sp inal 39 Teena Lo MD 08/13 Discharge Information Feeding Method Contraceptive Method Maternal HG B and HCT Levels
--- OUTSIDE RECORDS SUMMARY | 2024-03-20 23:25 | XMS_ITS | Clinical Summary ---
Author Organization [facility] Address [place], [place] [address] Care Team Providers Care Patient Transportation Driver Name Role Phone Tone Mcqueen Unavailable [phone] Lakhwinder Lau MD Primary Care Provider [phone] Allergies No known active allergies Medications multivitamin (MVI) tablet Take 1 Tablet by mouth once daily. Active hydrOXYzine HCL (ATARAX) 25 mg tablet hydroxyzine HCl 25 mg tablet TAKE 1 TABLET (25 MG TOTAL) BY MOUTH 2 (TWO) TIMES A DAY NEEDED FOR ANXIETY. 06/05/19 22 Active gabapentin (NEURONTIN) 300 mg capsule gabapentin 300 mg capsule TAKE 1 CAPSULE BY MOUTH THREE TIMES A DAY 11/08/19 21 Active spironolactone (ALDACTONE) 50 mg tablet Take 50 mg by mouth once daily. 05/21/19 22 Active cetirizine (ZYRTEC) 10 mg tablet Take 1 Tablet (10 mg) by mouth once daily. 0 06/30/19 22 Active fluticasone (50 mcg per actuation) nasal solution (FLONASE) Inhale 2 Sprays into affected nostril(s). Active ALPRAZolam (XANAX) 0.5 mg tablet Take 0.5 mg by mouth one time if needed. Active medication order composer Magnesium 120mg four times daily 08/03/19 24 Active VITAMIN D3-VITAMIN K2, MK4, ORAL Take 5 Drops by mouth once daily. Active Lactobac no.21/Bifidoba c no.9 (PROBIOTIC DIGESTIVE HEALTH ORAL) Take by mouth. Ac tive L.acid/L.casei /B.bif/B.palak/F OS (PROBIOTIC BLEND ORAL) Take 1 Tablet by mouth once daily. Active famotidine (PEPCID) 40 mg tablet TAKE 1 TABLET BY ORAL ROUTE EVERY DAY AT BEDTIME NEEDED 12/13/19 24 Active vnfhv-7r-chs-e pa-fish oil-D3 (Fish Oil-Vit D3) 360 mg-1,200 mg -1,000 unit cap Take 1 Capsule by mouth once daily. Active medication order composer CDG Estrogen Glutashield Vit B GI Microboics Active methylPREDNISo lone (MEDROL DOSEPAK) 4 mg tabletIndicati ons:Eustachian tube dysfunction, bilateral,Kory rgy, initial encounter Take by mouth as instructed per packaging. 21 Tablet 02/20/20 24 Active methylPREDNISo lone (MEDROL DOSEPAK) 4 mg tabletIndicati ons:Eustachian tube dysfunction, bilateral,Kory rgy, initial encounter Take by mouth as instructed per packaging. 21 Tablet 02/20/20 24 024 Discontinued Active Problems Problem Noted Date Diagnosed Date [...] Encounters Date Type Department Care Team Description 02/19/2024 9:13 PM CORPORATE SALES TRAINER - 02/20/2024 12:48 AM CORPORATE SALES TRAINER Emergency [facility] [address] [place] [address] Jamir Wilder MD Otalgia of both ears (Primary Dx); Eustachian tube dysfunction, bilateral; Allergy, initial encounter; Partial thickness burn of left ear, initial encounter Discharge Disposition: Home Self Care 02/19/2024 Travel 02/19/2024 Nurse Triage [facility] Centralized Nurse Triage Pcp, No Ear Pain/problem (Left) 01/17/2024 7:17 AM CORPORATE SALES TRAINER - 01/17/2024 11:59 PM CORPORATE SALES TRAINER Hospital Encounter [facility] [address] [place] [address] Kwesi East MD Other chest pain 01/17/2024 Travel 01/12/2024 Telephone [facility] [address] [place] [address] Laya Vargas RN 12/31/2023 10:00 AM CDT Office Visit [facility] [address] [place] [address] Kwesi East MD Concerns (Patient states she has some stinging/ burning in her chest occ /Patient states everyday she feels miserable /Patient states she has sone shortness of breath /Paitent denies dizziness ) 12/31/2023 Travel 12/27/2023 Telephone [facility] [address] [place], [place] [id number] Bettie Conklin, RD, CDCES Medical Nutrition Therapy (Pt called to cancel [...] Paying Living Expenses Not on file 03/08/2021 Interpersonal Safety Answer Date Record ed Are you being hit, kicked, p ushed or yelled at (see row info)? No 02/19/2024 Interpersonal Safety Abuse 12 - 18 Not on file 02/19/2024 Interpersonal Safety Ambulatory Vulnerability No t on file 02/19/2024 Comments No Sex and Gender Information Value Date Recorded Sex Assigned at Female 10/29/2023 8:27 AM CDT Legal Sex Female 8:27 AM CORPORATE SALES TRAINER Gender Identity Female 10/29/2023 8:27 AM CDT [...] M C-Sec tion Livin g 8 [address] GA[address] HUSTON Annett e Noonan, MD Delivery Location:Hospital ( [facility] [address] TRIAGE) Last Filed Vital Signs Vital Sign Reading Time Taken Comments Blood Pressure 114/70 02/20/2024 12:47 AM CORPORATE SALES TRAINER Pulse 66 02/20/2024 12:47 AM CORPORATE SALES TRAINER Temperature 36.4 C (97.6 F) 02/19/2024 8:25 PM CORPORATE SALES TRAINER Respiratory Rate 18 02/20/2024 12:47 AM CORPORATE SALES TRAINER Oxygen Saturation 100% 02/20/2024 12:47 AM CORPORATE SALES TRAINER Inhaled Oxygen Concentration - - Weight 80.3 kg (177 lb) 02/19/2024 8:25 PM CORPORATE SALES TRAINER Height 167.6 cm (5' 6) 02/19/2024 8:25 PM CORPORATE SALES TRAINER Body Mass Index 28.57 02/19/2024 8:25 PM CORPORATE SALES TRAINER Plan of Treatment Health Maintenance Due Date Last Done Comments HIV for age 15-65 1996 Hepatitis C screening for ag e 18-79 09/04/1999 Pneumococcal series for age 6-49 (1 of 2 - PCV) 2000 Pap test for age 21-65 2002 Depression screening for age 12+ 02/11/2021 02/12/2020, 02/24/2018, 02/24/2018, Additional history exists COVID-19 vaccine series (2023- season) 2023 04/02/2022, 02/26/2021, 06/27/2020, Additional history exists Influenza for age 9-49 11/07/2023 8, 03/18/2012, 01/09/2008, Additional history exists BMI (ht and wt on same day) for age 18+ 12/30/2024 12/31/2023, 08/03/2023, 10/16/2021, Additional history exists Tetanus booster 11/23/2027 11/22/2017, 01/06, 04/15/2006 Tdap Completed 11/22/2017, 01/06, 04/15/2006 Procedures Procedure Name Priority Date/Time Associated Diagnosis Comments MR HEAD BRAIN WO STAT 02/19/2024 11:0 6 PM CORPORATE SALES TRAINER MR ORBIT FACE WO STAT 02/19/2024 11:0 [address]ES TRAIN[address] CARDIAC CORONARY ARTERIES DUAL READ Routine 01/17/2024 8:23 AM CORPORATE SALES TRAINER Other chest pain CREATININE,ISTAT Routine 01/17/2024 8:06 AM CORPORATE SALES TRAINER from Last 3 Months Results * MR BRAIN WO CONTRAST (02/19/2024 11:06 PM CORPORATE SALES TRAINER) Anatomical Region Laterality Modality BRAIN, HEAD Magnetic Resonan ce 02/19/2024 11:3 6 PM CORPORATE SALES TRAINER Narrative 02/19/2024 11:36 PM CORPORATE SALES TRAINER For Patients: As a result of the Cures Act, medical imaging exams and procedure reports are released immediately into your electronic medical record. You may view this report before your referring provider. If you have questions, please contact your health care provider. Indication: Headache, increasing frequency or severity, sinus and mastoid effusions Technique: MRI head: Multisequence multiplanar noncontrast MRI through the head. Sagittal T1 and axial T2 FLAIR, T2 FS, SWI, and DWI imaging performed. MRI face: Multisequence multiplanar noncontrast MRI through the maxillofacial structures. Sagittal and axial T2, coronal and axial T1, coronal and axial T2 IR imaging performed. Comparison: Sinus CT performed 01/03/2019 Findings: MRI head: Brain: No acute infarct. No acute hemorrhage. No significant mass effect or midline shift. No gross mass lesion or significant cerebral edema appreciated. Small focus of susceptibility artifact lateral to the right putamen, not appreciated as the signal abnormality on additional sequences, clinical significance uncertain but could represent a small focus of nonspecific mineralization and favored to be incidental. Ventricles: No acute abnormality appreciated. Flow voids: Grossly maintained. Calvarium and soft tissues: No acute abnormality appreciated. MRI face: Orbits, sinuses and mastoids: No acute abnormality appreciated. Minimal left mastoid fluid. This is likely incidental. Visualized pharynx: Unremarkable. Oral cavity: Unremarkable. Submandibular and parotid spaces: Unremarkable. Other: No significant abnormality appreciated. Impression: No significant abnormality by MRI of the head and maxillofacial structures to account for patient`s reported symptoms. Dictated by Colby Grant MD @ 02/19/2024 11:36:42 PM (Electronically Signed) Procedure Note Colby Grant MD - 02/19/2024 For Patients: As a result of the Cures Act, medical imagingexams and procedure reports are released immediately into your electronicmedical record. You may view this report before your referring provider.If you have questions, please contact your health care provider. Indication: Headache, increasing frequency or severity, sinus and mastoid effusions Technique: MRI head: Multisequence multiplanar noncontrast MRI through the head.Sagittal T1 and axial T2 FLAIR, T2 FS, SWI, and DWI imaging performed. MRI face: Multisequence multiplanar noncontrast MRI through themaxillofacial structures. Sagittal and axial T2, coronal and axial T1,coronal and axial T2 IR imaging performed. Comparison: Sinus CT performed 01/03/2019 Findings: MRI head: Brain: No acute infarct. No acute hemorrhage. No significant mass effector midline shift. No gross mass lesion or significant cerebral edemaappreciated. Small focus of susceptibility artifact lateral to the rightputamen, not appreciated as the signal abnormality on additionalsequences, clinical significance uncertain but could represent a smallfocus of nonspecific mineralization and favored to be incidental. Ventricles: No acute abnormality appreciated. Flow voids: Grossly maintained. Calvarium and soft tissues: No acute abnormality appreciated. MRI face: Orbits, sinuses and mastoids: No acute abnormality appreciated. Minimalleft mastoid fluid. This is likely incidental. Visualized pharynx: Unremarkable. Oral cavity: Unremarkable. Submandibular and parotid spaces: Unremarkable. Other: No significant abnormality appreciated. Impression: No significant abnormality by MRI of the head and maxillofacial structuresto account for patient`s reported symptoms. Dictated by Colby Grant MD @ 02/19/2024 11:36:42 PM (Electronically Signed) Jamir Wilder MD MR Final Result * MR ORBIT FACE NECK WO CONTRAST (02/19/2024 11:04 PM CORPORATE SALES TRAINER) Anatomical Region Laterality Modality ORBITS, FACE Magnetic Resonan ce 02/19/2024 11:3 7 PM CORPORATE SALES TRAINER Narrative 02/19/2024 11:37 PM CORPORATE SALES TRAINER For Patients: As a result of the Cures Act, medical imaging exams and procedure reports are released immediately into your electronic medical record. You may view this report before your referring provider. If you have questions, please contact your health care provider. Indication: Headache, increasing frequency or severity, sinus and mastoid effusions Technique: MRI head: Multisequence multiplanar noncontrast MRI through the head. Sagittal T1 and axial T2 FLAIR, T2 FS, SWI, and DWI imaging performed. MRI face: Multisequence multiplanar noncontrast MRI through the maxillofacial structures. Sagittal and axial T2, coronal and axial T1, coronal and axial T2 IR imaging performed. Comparison: Sinus CT performed 01/03/2019 Findings: MRI head: Brain: No acute infarct. No acute hemorrhage. No significant mass effect or midline shift. No gross mass lesion or significant cerebral edema appreciated. Small focus of susceptibility artifact lateral to the right putamen, not appreciated as the signal abnormality on additional sequences, clinical significance uncertain but could represent a small focus of nonspecific mineralization and favored to be incidental. Ventricles: No acute abnormality appreciated. Flow voids: Grossly maintained. Calvarium and soft tissues: No acute abnormality appreciated. MRI face: Orbits, sinuses and mastoids: No acute abnormality appreciated. Minimal left mastoid fluid. This is likely incidental. Visualized pharynx: Unremarkable. Oral cavity: Unremarkable. Submandibular and parotid spaces: Unremarkable. Other: No significant abnormality appreciated. Impression: No significant abnormality by MRI of the head and maxillofacial structures to account for patient`s reported symptoms. Dictated by Colby Grant MD @ 02/19/2024 11:37:02 PM (Electronically Signed) Procedure Note Colby Grant MD - 02/19/2024 For Patients: As a result of the Cures Act, medical imagingexams and procedure reports are released immediately into your electronicmedical record. You may view this report before your referring provider.If you have questions, please contact your health care provider. Indication: Headache, increasing frequency or severity, sinus and mastoid effusions Technique: MRI head: Multisequence multiplanar noncontrast MRI through the head.Sagittal T1 and axial T2 FLAIR, T2 FS, SWI, and DWI imaging performed. MRI face: Multisequence multiplanar noncontrast MRI through themaxillofacial structures. Sagittal and axial T2, coronal and axial T1,coronal and axial T2 IR imaging performed. Comparison: Sinus CT performed 01/03/2019 Findings: MRI head: Brain: No acute infarct. No acute hemorrhage. No significant mass effector midline shift. No gross mass lesion or significant cerebral edemaappreciated. Small focus of susceptibility artifact lateral to the rightputamen, not appreciated as the signal abnormality on additionalsequences, clinical significance uncertain but could represent a smallfocus of nonspecific mineralization and favored to be incidental. Ventricles: No acute abnormality appreciated. Flow voids: Grossly maintained. Calvarium and soft tissues: No acute abnormality appreciated. MRI face: Orbits, sinuses and mastoids: No acute abnormality appreciated. Minimalleft mastoid fluid. This is likely incidental. Visualized pharynx: Unremarkable. Oral cavity: Unremarkable. Submandibular and parotid spaces: Unremarkable. Other: No significant abnormality appreciated. Impression: No significant abnormality by MRI of the head and maxillofacial structuresto account for patient`s reported symptoms. Dictated by Colby Grant MD @ 02/19/2024 11:37:02 PM (Electronically Signed) Jamir Wilder MD MR Final Result * CT CARDIAC CORONARY ARTERIES DUAL READ (01/17/2024 8:23 AM CORPORATE SALES TRAINER) Anatomical Region Laterality Modality HEART Computed Tomogra phy Impressions 01/25/2024 10:52 AM CORPORATE SALES TRAINER No significant incidental extracardiac findings. Please refer to tile ditcher's dictation for the cardiac CT report. Narrative 01/25/2024 10:52 AM CORPORATE SALES TRAINER Results are automatically released to your [employer]) account once available, in compliance with federal regulations. This means that you may see your results before your provider has had a chance to review them. Please allow 2-3 business days for your provider to comment on the results. CT CORONARY ANGIOGRAM, 01/17/2024 INDICATION: Cardiovascular screening. CONCLUSIONS: This is a dual read study - please review [facility] over-read below for incidental non cardiac [...] Image post processing was performed on a [employer] Workstation. The patient received the following medications: [...] for incidental non-cardiac findings. Tamar Kaye MD [facility] AB/car For Patients: As a result of the Cures Act, medical imaging exams and procedure reports are released immediately into your electronic medical record. You may view this report before your referring provider. If you have questions, please contact your health care provider. EXAM: OVERREAD: DETAILED KIMBALL RADIOLOGY EXTRACARDIAC OVERREAD OF CARDIAC CT LOCATION: [facility] MEDICAL [facility]AG[facility] DATE: 01/17/2024 INDICATION: Cardiac - Chest pain with equivocal stress test TECHNIQUE: Dose reduction techniques were used. COMPARISON: None. FINDINGS: LIMITED CHEST: Negative. LIMITED MEDIASTINUM: Negative. LIMITED UPPER ABDOMEN: Interval increase in the size of the partially imaged right hepatic lobe hemangioma. Kwesi East MD CT Final Result * (ABNORMAL) CREATININE,ISTAT (01/17/2024 8:06 AM CORPORATE SALES TRAINER) CREATININE, POCT 1.00 0.57 - 1.11 mg/dL 01/17/2024 8:15 AM CORPORATE SALES TRAINER [facility] Comment:Caution: Patients ta kamran Hydroxyurea have falsely increased iStat Creatinine results. Verify creatinine results ordering a Creatinine (43513.2) eGFR 72(L) >90 mL/min/1.7 3m2 01/17/2024 8:15 AM CORPORATE SALES TRAINER [facility] Comment:As of 2021, eG FR is calculated by the CKD-EPI creatinine equation without race adjustment. eGFR can be influenced by muscle mass, exercise, and diet. The reported eGFR is an estimation only and is only applicable if the renal function is stable. Blood BLOOD SPECIMEN / Unknown 01/17/2024 8:06 AM CORPORATE SALES TRAINER 01/17/2024 8:14 AM CORPORATE SALES TRAINER Kwesi East MD CHEMISTRY Final Result [facility] SENDOUT [place] [address] [address] [address] [place] [address] from Last 3 Months Insurance [facility] [place] [id number] [facility] [place] [id number] [facility] [place] [id number] Advance Directives * Full Code (Latest Code [...] 02/16/2018 6:36 PM 02/17/2018 7:50 AM Post cathyaries gale section Care Teams Patient Transportation Driver Relationship Specialty Start Date End Date Lakhwinder Lau MD [address] [place] [address] PCP - General Family Practice 10/05/23 Tone Mcqueen MBBS [address] [place] [address] Consulting Physician Cardiology - Interventional 03/21/20
--- OUTSIDE RECORDS SUMMARY | 2024-03-20 23:25 | XMS_ITS | Patient Health Record ---
Author Organization [facility] Address [address] [place] [address] Care Team Providers Care Printer Machine Name Role Phone Jaciel Momoberyl Primary Care Provider UnavailBENJAMIN Palmer Unavailable [phone] None, None Unavailable Unavailable Candace Singleton Unavailable [phone] Allergies No Known Allergies Reason For Referral [...] Problem Status W/U Status Risk Notes Problem 1622259133211 Tinnitus, bilate ral (H93.13) Active confirmed Problem 76199969 Chronic rhinitis (J31.0) Active confirmed Problem 20437165 Hypertrophy of b 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) Active confirmed Problem 025265395 Throat irritatio n (J39.2) Active confirmed Problem 3468240515953019 Bilateral sensorineural hearing loss (H90.3) Active confirmed Problem 38058332 Nasal septal deformity (J34.2) Active confirmed Problem 61601834 Nasal septal deformity (J34.2) Active confirmed Problem 540033570 Otalgia 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) Active confirmed Problem 7588942670758 Bilateral tinnit us (H93.13) Active confirmed Problem 48445330 Nasal dryness (J34.89) Active confirmed Problem 49032449 Chronic sinusiti s, unspecified location (J32.9) Active confirmed Problem 258119394 Laryngopharyngea l reflux (LPR) (K21.9) Active confirmed Problem 25290163 Chronic rhinitis (J31.0) Active confirmed Problem 265007942 Facial pressure (R44.8) Active confirmed Problem 25405498 Facial pain (R51.9) Active confirmed Problem 487206087 History of fibromyalgia (Z87.39) Active confirmed Vital Signs Height-cm 167.64 cm 02/15/2024 Weight-kg 80.29 kg 02/15/2024 Height 66 in 02/15/2024 Weight 177 lbs 02/15/2024 BMI 28.57 kg/m2 02/15/2024 Procedures Procedure Date Ordered Date Performed Result Body Sit e OTOMICROSCOPIC EAR EXAM 02/15/2024 02/15/2024 N/A Encounters Encounter Location Date Provider Diagnosis [facility] [address] [place] [id number] 02/15/2024 BENJAMIN CARVAJAL Otalgia of both ears H92.03 ; Chronic rhinitis J31.0 ; Facial pressure R44.8 ; History of fibromyalgia Z87.39 and Bilateral sensorineural hearing loss H90.3 [facility] [address] [place] [id number] 02/15/2024 Candace Singleton Bilateral sensorineural hearing loss [...] seen by Fibromyalgia specialists at [facility] as well as her primary care team. [...] Insured Coverage Start Date Coverage End Date [facility] [id number] [place] [address] [id number] Henny Rivas Self - patient is the insured Medical (General) History Medical History History ICD Code fibromyalgia Surgical History Surgery Date(Month/Year) C section
--- OUTSIDE RECORDS SUMMARY | 2024-03-20 23:25 | XMS_ITS | Clinical Summary ---
Author Organization [facility] Address [address] [place] [address] Care Team Providers Care Electro Winning Operator Name Role Phone Teena Hargrove MD Primary Care Provider [phone] Seble Dickinson PA-C Unavailable Allergies Active Allergy [...] Active VANCE-D 12 HOUR## 60-120 MG OR [id number] llergic rhinitis, cause unspecified 1 TABLET TWICE [...] on file Legal Sex Female 4:36 AM FINISHER POLISHER Gender Identity Not on file Sexual Orientation [...] 108.9 kg (240 lb) 03/17/2020 12:13 PM FINISHER POLISHER Height 167.6 cm (5' 6) 02/19/2019 2:39 PM FINISHER POLISHER Body Mass Index 38.74 02/19/2019 2:39 PM FINISHER POLISHER Plan of Treatment Health Maintenance Due Date Last Done Comments ADVANCE CARE PLANNING 1981 ANNUAL REVIEW OF HM ORDERS 1981 MAMMO SCREENING 1981 MIGRAINE ACTION PLAN 1981 HIV SCREENING 1996 HEPATITIS C SCREENING 09/04/1999 HEPATITIS B IMMUNIZATION (1 of 3 - 19+ 3-dose series) 2000 HPV IMMUNIZATION (2 - 3-dose series) 02/06/2008 01/09/2008, 01/09/2008 YEARLY PREVENTIVE VISIT 01/08/2009 01/09/2008, 04/12 GLUCOSE 05/26/2023 05/25/2020, 03/08, 03/17/2020, Additional history exists COVID-19 Vaccine (2023- season) 2023 04/02/2022, 02/26/2021, 06/27/2020, Additional history exists INFLUENZA VACCINE (#1) 2023 , 02/19/2021, 11/30/2019, Additional history exists PAP 02/02/2024 02/01/2023, 01/07, 01/09/2008, Additional history exists PHQ-2 (once per calendar year) 2024 LIPID 02/02/2028 02/01/2023, 01/07, 04/27/2006 DTAP/TDAP/TD IMMUNIZATION (5 - Td or Tdap) 07/23/2030 07/23/2020, 11/22/2017, 01/15/2014, Additional history exists RSV VACCINE (1 - 1-dose 75+ series) 2056 MENINGITIS IMMUNIZATION Aged Out No l onger eligible based on patient's age to complete this topic Pneumococcal Vaccine: Pediatrics (0 to 5 Years) and At-Risk Patients (6 to 49 Years) Aged Out No longer eligible based on patient's age to complete this topic RSV MONOCLONAL ANTIBODY Aged Out No l onger eligible based on patient's age to complete this topic Procedures Procedure Name Priority Date/Time Associated Diagnosis Comments LIPID PROFILE Routine 02/01/2023 10:25 AM FINISHER POLISHER Encounter for screening for lipoid disorders GYNECOLOGIC CYTOLOGY Routine 02/01/2023 10:00 AM FINISHER POLISHER Encounter for screening for malignant neoplasm of cervix BASIC METABOLIC PANEL STAT 05/25/2020 12:50 AM CDT from Last 3 Months or Most Recently Relevant to Health Maintenance Results * (ABNORMAL) Lipid Profile (02/01/2023 10:25 AM FINISHER POLISHER) Cholesterol 198 <200 mg/dL 02/01/2023 2:46 PM FINISHER POLISHER [facility] Triglycerides 102 <150 mg/dL 02/01/2023 2:46 PM FINISHER POLISHER [facility] Direct Measure HDL 53 >=50 mg/dL 02/01/2023 2:46 PM FINISHER POLISHER [facility] LDL Cholesterol Calculated 125(H) <=100 mg/dL 02/01/2023 2:46 PM FINISHER POLISHER [facility] Non HDL Cholesterol 145(H) <130 mg/dL 02/01/2023 2:46 PM FINISHER POLISHER [facility] Blood TOPOGRAPHY UNKNOWN / Unknown Client Draw / Unknown 02/01/2023 10:25 AM FINISHER POLISHER 02/01/2023 1:09 PM FINISHER POLISHER Narrative [facility] - 02/01/2023 2:46 PM FINISHER POLISHER Cholesterol Desirable: <200 mg/dL Triglycerides Normal: Less [...] - BLOOD ORDERABLES Final Result [facility] [address] [facility], [address] [address], [facility] [phone] * Gynecologic Cytology (PAP) (02/01/2023 10:00 AM FINISHER POLISHER) Interpretation Negative for Intraepithelial Lesion or Malignancy (NILM) 02/03/2023 9:28 AM FINISHER POLISHER [facility] Comment Papanicolaou Test Limitations: Cervical cytology is a screening test with limited sensitivity, and regular screening is critical for cancer prevention. Pap tests are primarily effective for the diagnosis/prevent ion of squamous cell carcinoma, not adenocarcinoma or other cancers. 02/03/2023 9:28 AM FINISHER POLISHER [facility] Specimen Adequacy Satisfactory for evaluation, endocervical/wilkes sformation zone component present 02/03/2023 9:28 AM FINISHER POLISHER [facility] Clinical Information none 02/03/2023 9:28 AM FINISHER POLISHER [facility] LMP/Menopause Date 01-24-2023 02/03/2023 9:28 AM FINISHER POLISHER [facility] Reflex Testing Yes regardless of result 02/03/2023 9:28 AM FINISHER POLISHER [facility] Previous Abnormal? No 02/03/2023 9:28 AM FINISHER POLISHER [facility] Previous Abnormal Diagnosis NILM with NEG HPV 02/03/2023 9:28 AM FINISHER POLISHER [facility] Performing Labs The technical component of this testing was completed at [facility] 02/03/2023 9:28 AM FINISHER POLISHER [facility] Brushing CERVIX UTERI STRUCTURE / Unknown 02/01/2023 10:00 AM FINISHER POLISHER 02/01/2023 1:15 PM FINISHER POLISHER us Jericho Hernandez PA-C LAB - BEAKER AP Final R esult [facility] Special[facility] [address] [facility], [address] [address], [facility] [phone] * (ABNORMAL) Basic metabolic panel (05/25/2020 12:50 AM CDT) Sodium 147(H) 133 - 144 mmol/L 05/25/2020 1:26 AM [facility] Comment:Reviewed, acceptable Potassium 3.6 3.4 - 5.3 mmol/L 05/25/2020 1:26 AM [facility] Chloride 110(H) 94 - 109 mmol/L 05/25/2020 1:26 AM [facility] Carbon Dioxide 25 20 - 32 mmol/L 05/25/2020 1:26 AM [facility] Anion Gap 12 3 - 14 mmol/L 05/25/2020 1:26 AM [facility] Glucose 84 70 - 99 mg/dL 05/25/2020 1:26 AM [facility] Urea Nitrogen 10 7 - 30 mg/dL 05/25/2020 1:26 AM [facility] Creatinine 0.57 0.52 - 1.04 mg/dL 05/25/2020 1:26 AM [facility] GFR Estimate >90 >60 mL/min/{1. 73_m2} 05/25/2020 1:26 AM [facility] Comment: Non GFR Calc Starting 02/22/2018, serum creatinine based estimated GFR (eGFR) will be calculated using the Chronic Kidney Disease Epidemiology Collaboration (CKD-EPI) equation. GFR Estimate If Black >90 >60 mL/min/{1. 73_m2} 05/25/2020 1:26 AM [facility] Comment: GFR Calc Starting 02/22/2018, serum creatinine based estimated GFR (eGFR) will be calculated using the Chronic Kidney Disease Epidemiology Collaboration (CKD-EPI) equation. Calcium 9.3 8.5 - 10.1 mg/dL 05/25/2020 1:26 AM [facility] Blood specimen (specimen) 05/25/2020 12:50 AM CDT 05/25/2020 1:00 AM CDT us Trevon Lr MD LAB - BLOOD ORDERABLES Final Re sult [facility] [address] [place] [address], [facility] [phone] from Last 3 Months or Most Recently Relevant to Health Maintenance Insurance [facility] Care Teams Electro Winning Operator Relationship Specialty Start Date End Date Teena Hargrove MD PCP - General president mortgage company 03/17/20 Seble Dickinson PA-C [address] [address] Physician Casting Machine Control Board Operator Urology 08/24/22
--- OUTSIDE RECORDS SUMMARY | 2024-03-20 23:26 | XMS_ITS | Clinical Summary ---
Author Organization [facility] Address [address] [place] [address] Care Team Providers Care Closed Circuit Screen Watcher Name Role Phone Elsewhere, Pcp Primary Care Provider Unavailabl e Source Comments Patient records contain information from all sites at [facility]. For routine questions regarding patient records, call [phone] during business hours, M-F 8:00 AM - 5:00 PM Central Time. Record requests for emergency care only can be directed to [phone] at any time.[facility] Allergies No known active allergies Medications * [...] How often do you attend chur or roman catholic services? 1 to 4 times per year 04/03/2022 Do you belong to any clubs o r organizations such as catholic groups, unions, fraternal or athletic groups, or [...] Answer Date Recorded PHQ-2 Score 0 12/10/2021 [facility] [place] [facility] Occupat ional [facility] - Occupational Stress [...] PM CDT Legal Sex Female 3:24 PM LANDSCAPING SUPERVISOR Gender Identity Female 12/05/2020 12:09 PM CDT Sexual Orientation Not on file Last Filed Vital Signs Vital Sign Reading Time Taken Comments Blood Pressure 117/81 03/27/2023 8:42 AM LANDSCAPING SUPERVISOR Pulse 94 03/27/2023 8:42 AM LANDSCAPING SUPERVISOR Temperature 36.2 C (97.2 F) 03/27/2023 8:42 AM LANDSCAPING SUPERVISOR Respiratory Rate 16 03/12/2023 8:34 AM LANDSCAPING SUPERVISOR Oxygen Saturation 98% 03/27/2023 8:42 AM LANDSCAPING SUPERVISOR Inhaled Oxygen Concentration - - Weight 95.8 kg (211 lb 4.8 oz) 03/27/2023 8:42 A M LANDSCAPING SUPERVISOR Height 169.4 cm (5' 6.69) 03/27/2023 8:42 AM CS T Body Mass Index 33.4 03/27/2023 8:42 AM LANDSCAPING SUPERVISOR Plan of Treatment Upcoming Encounters Date Type Department Care Team (Late st Contact Info) Description 03/21/2024 11:00 AM LANDSCAPING SUPERVISOR Office Visit Department of Otorhinolaryngology in [place], [place] [address] [phone] Bonnie Lagos AUD, Au.D. [address] [address] 03/21/2024 12:00 PM LANDSCAPING SUPERVISOR Office Visit Department of Otorhinolaryngology in [place], [place] [address] [address] Lakhwinder Patel M.D. [address] [phone] Health Maintenance Due Date Last Done Comments HIV Screening 1981 Hepatitis C Screening 1981 Hepatitis B Vaccines (1 of 3 - 19+ 3-dose series) 2000 HPV Vaccines (2 - 3-dose series) 02/06/2008 01/09/2008, 01/09/2008 COVID-19 Vaccine ( season) 2023 04/02/2022, 02/26/2021, 06/27/2020, Additional history exists Influenza Vaccine (#1) 2023 , 12/19/2021, 11/30/2019, Additional history exists Depression Screening (Annual PHQ-2) 03/08/2024 Mammogram 07/05/2024 07/06/2023, 06/07, 08/27/2021, Additional history exists Cervical/Vaginal Cancer Screening 02/01/2026 02/01/2023, 01/26/2022, 01/23/2021 (Performed elsewhere) Lipid (Cholesterol) Screening 02/02/2028 02/01/2023, 01/26/2022 DTaP,Tdap,and Td Vaccines (5 - Td or Tdap) 07/23/2030 07/23/2020, 11/22/2017, 01/15/2014, Additional history exists IPV Vaccines Aged Out No longer eligi ble based on patient's age to complete this topic Pneumococcal vaccine (0-49 years) Aged Out No longer eligible based on patient[place] [id number] [facility] Care Teams Closed Circuit Screen Watcher Relationship Specialty Start Date End Date Elsewhere, Pcp PCP - General Internal Medicine 01/07/22
--- OUTSIDE RECORDS SUMMARY | 2024-03-20 23:26 | XMS_ITS | Clinical Summary ---
Author Organization [facility] Address [address] [place] [address] Care Team Providers Care Asphalt Machine Operator Name Role Phone Unavailable Primary Care [...] for each transition of care or referral. [employer] Allergies No known active allergies Medications Medication [...] vaginal tablet Insert vaginally. 06/26/2023 Act kassie amoxicillin-clavulanat e (AUGMENTIN) 875-125 mg per tablet Take 1 Tablet by mouth two times a day. 01/22/2024 Active LINZESS 72 MCG CAPS Take 1 Capsule (72 mcg) by mouth daily. 01/12/2024 Active Active Problems No known active problems Encounters Date Type Department Care Team Description 01/31/2024 8:20 AM MUSIC THERAPIST Office Visit [id number] [address] [place] [address] Jaquelin Garcia MD Acute non-recurrent sinusitis, unspecified location; Allergic rhinitis, unspecified seasonality, unspecified trigger from Last 3 Months Social History Tobacco Use Types Packs/Day Years Used Date Smoking Tobacco: Never Tobacco Cessation:Counseling Given: Not Answered Sex and Gender Information Value Date Recorded Sex Assigned at Not on file Gender Identity Not on file Sexual Orientation Not on file Last Filed Vital Signs Vital Sign Reading Time Taken Comments Blood Pressure 125/85 01/31/2024 8:17 AM MUSIC THERAPIST Pulse 65 01/31/2024 8:17 AM MUSIC THERAPIST Temperature 36.3 C (97.3 F) 01/31/2024 8:17 AM MUSIC THERAPIST Respiratory Rate 16 01/31/2024 8:17 AM MUSIC THERAPIST Oxygen Saturation 100% 01/31/2024 8:17 AM MUSIC THERAPIST Inhaled Oxygen Concentration - - Weight 83.5 [...] series) 02/06/2008 01/09/2008 COVID-19 Vaccine ( season) 2023 04/02/2022, [...] Procedure Name Priority Date/Time Associated Diagnosis Comments ANATOMICAL PATH LIQUID BASED Routine 2003 12:13 PM CDT from Last 3 Months or Most Recently Relevant to Health Maintenance Results * Pap Smear (2003 12:13 PM CDT) PAP Smear Liquid Based SEE TEXT No normal range HP CONVERSION Comment: Patient: HENNY CHANEY CERVICAL CYTOLOGY REPORT Pathology # [id number] Date Obtained: Date Received: CYTOLOGIC IMPRESSION: Negative [...]
--- OUTSIDE RECORDS SUMMARY | 2024-03-20 23:26 | XMS_ITS ---
Author Organization [facility] Address [address] [place] [address] Care Team Providers Care Control Board Operator Name Role Phone Unavailable Unavailable Unavailable Surgery Details Not on file Complications Check Surgery Details section. Procedure Estimated Blood Loss Check Surgery Details section. Procedure Findings Check Surgery Details section. Procedure Specimens Taken Check Surgery Details section.
--- OUTSIDE RECORDS SUMMARY | 2024-03-20 23:26 | XMS_ITS | Referral Summary ---
Author Organization [facility] Address [address] [place] [address] Care Team Providers Care Mechanical Technical Service Specialist Name Role Phone Teena Hargrove MD Primary Care Provider [phone] Seble Dickinson PA-C Unavailable Allergies Active Allergy [...] Active VANCE-D 12 HOUR## 60-120 MG OR [id number]:A llergic rhinitis, cause unspecified 1 TABLET TWICE [...] on file Legal Sex Female 4:36 AM TRAILER BODY ASSEMBLER Gender Identity Not on file Sexual Orientation [...] 108.9 kg (240 lb) 03/17/2020 12:13 PM TRAILER BODY ASSEMBLER Height 167.6 cm (5' 6) 02/19/2019 2:39 PM TRAILER BODY ASSEMBLER Body Mass Index 38.74 02/19/2019 2:39 PM TRAILER BODY ASSEMBLER Plan of Treatment Not on file Procedures Procedure Name Priority Date/Time Associated Diagnosis Comments LIPID PROFILE Routine 02/01/2023 10:25 AM TRAILER BODY ASSEMBLER Encounter for screening for lipoid disorders GYNECOLOGIC CYTOLOGY Routine 02/01/2023 10:00 AM TRAILER BODY ASSEMBLER Encounter for screening for malignant neoplasm of cervix BASIC METABOLIC PANEL STAT 05/25/2020 12:50 AM CDT from Last 3 Months or Most Recently Relevant to Health Maintenance Results * (ABNORMAL) Lipid Profile (02/01/2023 10:25 AM TRAILER BODY ASSEMBLER) Cholesterol 198 <200 mg/dL 02/01/2023 2:46 PM TRAILER BODY ASSEMBLER [facility] Triglycerides 102 <150 mg/dL 02/01/2023 2:46 PM TRAILER BODY ASSEMBLER [facility] Direct Measure HDL 53 >=50 mg/dL 02/01/2023 2:46 PM TRAILER BODY ASSEMBLER [facility] LDL Cholesterol Calculated 125(H) <=100 mg/dL 02/01/2023 2:46 PM TRAILER BODY ASSEMBLER [facility] Non HDL Cholesterol 145(H) <130 mg/dL 02/01/2023 2:46 PM TRAILER BODY ASSEMBLER [facility] Blood TOPOGRAPHY UNKNOWN / Unknown Client Draw / Unknown 02/01/2023 10:25 AM TRAILER BODY ASSEMBLER 02/01/2023 1:09 PM TRAILER BODY ASSEMBLER Narrative [facility] - 02/01/2023 2:46 PM TRAILER BODY ASSEMBLER Cholesterol Desirable: <200 mg/dL Triglycerides Normal: Less [...] - BLOOD ORDERABLES Final Result [facility] [place] [facility] [address] [facility], [address] [place] [address], [facility] [phone] * Gynecologic Cytology (PAP) (02/01/2023 10:00 AM TRAILER BODY ASSEMBLER) Interpretation Negative for Intraepithelial Lesion or Malignancy (NILM) 02/03/2023 9:28 AM TRAILER BODY ASSEMBLER [facility] Comment Papanicolaou Test Limitations: Cervical cytology is a screening test with limited sensitivity, and regular screening is critical for cancer prevention. Pap tests are primarily effective for the diagnosis/prevent ion of squamous cell carcinoma, not adenocarcinoma or other cancers. 02/03/2023 9:28 AM TRAILER BODY ASSEMBLER [facility] Specimen Adequacy Satisfactory for evaluation, endocervical/wilkes sformation zone component present 02/03/2023 9:28 AM TRAILER BODY ASSEMBLER [facility] Clinical Information none 02/03/2023 9:28 AM TRAILER BODY ASSEMBLER [facility] LMP/Menopause Date 01-24-2023 02/03/2023 9:28 AM TRAILER BODY ASSEMBLER [facility] Reflex Testing Yes regardless of result 02/03/2023 9:28 AM TRAILER BODY ASSEMBLER [facility] Previous Abnormal? No 02/03/2023 9:28 AM TRAILER BODY ASSEMBLER [facility] Previous Abnormal Diagnosis NILM with NEG HPV 02/03/2023 9:28 AM TRAILER BODY ASSEMBLER [facility] Performing Labs The technical component of this testing was completed at [facility] 02/03/2023 9:28 AM TRAILER BODY ASSEMBLER [facility] Brushing CERVIX UTERI STRUCTURE / Unknown 02/01/2023 10:00 AM TRAILER BODY ASSEMBLER 02/01/2023 1:15 PM TRAILER BODY ASSEMBLER Jericho BereMarito ROGEL Final R esult [facility] [address] [facility] [address], [address] [address], [facility] [phone] * (ABNORMAL) Basic metabolic panel (05/25/2020 12:50 AM CDT) Sodium 147(H) 133 - 144 mmol/L 05/25/2020 1:26 AM [facility] Comment:Reviewed, acceptable Potassium 3.6 3.4 - 5.3 mmol/L 05/25/2020 1:26 AM [facility] Chloride 110(H) 94 - 109 mmol/L 05/25/2020 1:26 AM [facility] Carbon Dioxide 25 20 - 32 mmol/L 05/25/2020 1:26 AM [facility] Anion Gap 12 3 - 14 mmol/L 05/25/2020 1:26 AM [facility] Glucose 84 70 - 99 mg/dL 05/25/2020 1:26 AM [facility] Urea Nitrogen 10 7 - 30 mg/dL 05/25/2020 1:26 AM [facility] Creatinine 0.57 0.52 - 1.04 mg/dL 05/25/2020 1:26 AM [facility] GFR Estimate >90 >60 mL/min/{1. 73_m2} 05/25/2020 1:26 AM [facility] Comment: Non GFR Calc Starting 02/22/2018, serum creatinine based estimated GFR (eGFR) will be calculated using the Chronic Kidney Disease Epidemiology Collaboration (CKD-EPI) equation. GFR Estimate If Black >90 >60 mL/min/{1. 73_m2} 05/25/2020 1:26 AM [facility] Comment: GFR Calc Starting 02/22/2018, serum creatinine based estimated GFR (eGFR) will be calculated using the Chronic Kidney Disease Epidemiology Collaboration (CKD-EPI) equation. Calcium 9.3 8.5 - 10.1 mg/dL 05/25/2020 1:26 AM [facility] Blood specimen (specimen) 05/25/2020 12:50 AM CDT 05/25/2020 1:00 AM CDT Trevon Lr MD LAB - BLOOD ORDERABLES Final Re sult [facility] [address] [place] [address], [facility] [phone] from Last 3 Months or Most Recently Relevant to Health Maintenance Insurance [facility] Care Teams Mechanical Technical Service Specialist Relationship Specialty Start Date End Date Teena Hargrove MD PCP - General batching operator 03/17/20 Seble Dickinson PA-C [address] [address] Physician Lead Network Engineer Urology 08/24/22
--- OUTSIDE RECORDS SUMMARY | 2024-03-20 23:26 | XMS_ITS | Referral Summary ---
Author Organization [facility] Address [address] [place] [address] Care Team Providers Care Counter Clerk Name Role Phone Elsewhere, Pcp Primary Care Provider Unavailabl e Source Comments Patient records contain information from all sites at [facility]. For routine questions regarding patient records, call [phone] during business hours, M-F 8:00 AM - 5:00 PM Central Time. Record requests for emergency care only can be directed to [phone] at any time.[facility] Allergies No known active allergies Medications [...] Answer Date Recorded PHQ-2 Score 0 12/10/2021 [facility] - [...] PM CDT Legal Sex Female 3:24 PM GENERALIST Gender Identity Female 12/05/2020 12:09 PM CDT Sexual Orientation Not on file Last Filed Vital Signs Vital Sign Reading Time Taken Comments Blood Pressure 117/81 03/27/2023 8:42 AM GENERALIST Pulse 94 03/27/2023 8:42 AM GENERALIST Temperature 36.2 C (97.2 F) 03/27/2023 8:42 AM GENERALIST Respiratory Rate 16 03/12/2023 8:34 AM GENERALIST Oxygen Saturation 98% 03/27/2023 8:42 AM GENERALIST Inhaled Oxygen Concentration - - Weight 95.8 kg (211 lb 4.8 oz) 03/27/2023 8:42 A M GENERALIST Height 169.4 cm (5' 6.69) 03/27/2023 8:42 AM CS T Body Mass Index 33.4 03/27/2023 8:42 AM GENERALIST Plan of Treatment Upcoming Encounters Date Type Department Care Team (Late st Contact Info) Description 03/21/2024 11:00 AM GENERALIST Office Visit Department of Otorhinolaryngology in [place], [place] [address] [phone] Bonnie Lagos AUD, Au.D. [address] [phone] 03/21/2024 12:00 PM GENERALIST Office Visit Department of Otorhinolaryngology in [place], [place] [address] [phone] Lakhwinder Patel M.D. [address] [phone] Insurance [employer] Care Teams Counter Clerk Relationship Specialty Start Date End Date Elsewhere, Pcp PCP - General Internal Medicine 01/07/22
[2024-03-20 23:27] VITALS: BP 132/89; PULSE 116; RESP 22; TEMP 37.5; O2SAT 100; BMI 28.4
--- NOTE | 2024-03-20 23:41 | CRLHL7_ITS ---
For Patients: As a result of the Cures Act, medical imaging exams and procedure reports are released immediately into your electronic medical record. You may view this report before your referring provider. If you have questions, please contact your health care provider. INDICATION: Cough, fever. TECHNIQUE: Chest 2 views. COMPARISON: None. FINDINGS: Cardiovascular and mediastinum: Cardiomediastinal silhouette is within normal limits Lungs and pleural spaces: Lungs are clear. No sign of pleural effusion. No pneumothorax. Bones and soft tissues: No significant findings. IMPRESSION: No acute or significant findings. Dictated by Usha Ernandez MD @ 03/21/2024 12:00:07 AM (Electronically Signed)
--- NOTE | 2024-03-20 23:48 | ED_ITS ---
HPI - SOB/Dyspnea General Time Seen by Provider: 23:48 Date Seen: 03/20/24 Chief Complaint: Shortness of Breath/Dyspnea Stated Complaint: difficulty breathing/chills Time Seen by Provider: 03/20/24 23:48 Source: patient, RN notes reviewed and old records reviewed Mode of arrival: ambulatory Limitations: no limitations Related Data Home Medications ?Medication ?Instructions ?Recorded ?Confirmed [place] PO QDAY 11/11/22 03/17/24 lactobacillus combination no.4 3 3,000 mmu cells PO QDAY 11/11/22 03/20/24 billion cell capsule (Probiotic) turmeric root extract 500 mg 500 mg PO QDAY 11/11/22 03/20/24 capsule linaclotide 72 mcg capsule 72 mcg PO QAM 02/08/24 03/20/24 (Linzess) estradiol 10 mcg vaginal tablet 10 mcg vaginal 2XW 03/07/24 03/20/24 (Vagifem) herbal complex no.306 (Glucosa cap PO BID 03/07/24 03/17/24 Immune Booster capsule) magnesium glycinate 240 mg PO BID 03/07/24 03/20/24 Previous Rx's ?Medication ?Instructions ?Recorded hydroxyzine HCl 25 mg tablet See Rx Instructions .Route 10/28/22 .COMPLEX #60 ea alprazolam 0.5 mg tablet 0.5 mg PO BID PRN anxiety #20 tabs 12/27/23 gabapentin 300 mg capsule 300 mg PO 3XD #270 ea 02/29/24 spironolactone 50 mg tablet 50 mg PO QDAY #90 tabs 03/07/24 Allergies Allergy/AdvReac Type Severity Reaction Status Date / Time No Known Drug Allergies Allergy Verified 03/20/24 23:34 [facility] Medical History Bartholin's gland cyst ?N75.0 - Cyst of Bartholin's gland (ICD-10) Urinary frequency ?R35.0 - Frequency of micturition (ICD-10) Allergic reaction ?T78.40XA - Allergy, unspecified, initial encounter (ICD-10) Abdominal pain ?R10.9 - Unspecified abdominal pain (ICD-10) Chronic ear pain ?H92.09 - Otalgia, unspecified ear (ICD-10) ?G89.29 - Other chronic pain (ICD-10) Bacterial vaginitis ?N76.0 - Acute vaginitis (ICD-10) ?B96.89 - Other specified bacterial agents as the cause of diseases classified elsewhere (ICD-10) Urethritis ?N34.2 - Other urethritis (ICD-10) Radicular pain in left arm ?M79.2 - Neuralgia and neuritis, unspecified (ICD-10) Vulvovaginal pain ?R10.2 - Pelvic and perineal pain (ICD-10) Dysuria ?R30.0 - Dysuria (ICD-10) Yeast vaginitis ?B37.31 - Acute candidiasis of vulva and vagina (ICD-10) Surgical History Status post tubal ligation ?Z98.51 - Tubal ligation status (ICD-10) Status post ?Z98.891 - History of uterine scar from previous surgery (ICD-10) Family History Sister Gallbladder disease Father Diabetes High blood pressure High cholesterol Aunt Breast cancer Social History Narrative: Employes in [place]. . Nonsmoker. Alcohol use: 3-4 per year Smoking Status: Never smoker How often do you have a drink containing alcohol: never AUDIT-C Alcohol total score: 0 Non-prescribed substance use: denies use Exam Const: Vital Signs, click to edit/add: Vital Signs - 24 hr 03/20/24 23:27 Temperature 99.5 F Pulse Rate [Pulse Oximeter] 116 H Respiratory Rate 22 Blood Pressure [Ri ght Upper Arm] 132/89 Pulse Oximetry 100 Oxygen Delivery Me thod Room Air Course Vital Signs Vital signs: Initial Vital Signs Temperature 99.5 F 03/20/24 23:27 Temperature Source Temporal Artery Scan 03/20/24 23:27 Pulse Rate 116 H 03/20/24 23:27 Respiratory Rate 22 03/20/24 23:27 Blood Pressure 132/89 03/20/24 23:27 Blood Pressure Mean 103 03/20/24 23:27 Blood Pressure Position Sitting 03/20/24 23:27 Pulse Oximetry 100 03/20/24 23:27 Oxygen Delivery Method Room Air 03/20/24 23:27 Vital Signs Temperature 99.5 F 03/20/24 23:27 Pulse Rate 116 H 03/20/24 23:27 Respiratory Rate 22 03/20/24 23:27 Blood Pressure 132/89 03/20/24 23:27 Pulse Oximetry 100 03/20/24 23:27 Oxygen Delivery Method Room Air 03/20/24 23:27 Temperature 99.5 F 03/20/24 23:27 Pulse Rate 116 H 03/20/24 23:27 Respiratory Rate 22 03/20/24 23:27 Blood Pressure 132/89 03/20/24 23:27 Pulse Oximetry 100 03/20/24 23:27 Oxygen Delivery Method Room Air 03/20/24 23:27 Discharge Plan Discharge Prescriptions: No Action [place] PO QDAY Probiotic 3 billion cell capsule 3,000 mmu cells PO QDAY Rx Instructions: administer with a meal turmeric root extract 500 mg capsule 500 mg PO QDAY magnesium glycinate 100 mg magnesium capsule 240 mg PO BID Linzess 72 mcg capsule 72 mcg PO QAM estradiol [Vagifem] 10 mcg tablet 10 mcg vaginal 2XW Rx Instructions: insert vaginally twice per week Glucosa Immune Booster Capsule PO BID spironolactone 50 mg tablet 50 mg PO QDAY Qty: 90 3RF hydroxyzine HCl 25 mg tablet See Rx Instructions .ROUTE .COMPLEX Qty: 60 3RF Dose Instruction: TAKE 1 TABLET (25 MG TOTAL) BY MOUTH 2 (TWO) TIMES A DAY NEEDED FOR ANXIETY. Rx Instructions: TAKE 1 TABLET (25 MG TOTAL) BY MOUTH 2 (TWO) TIMES A DAY NEEDED FOR ANXIETY. alprazolam 0.5 mg tablet 0.5 mg PO BID PRN (Reason: anxiety) Qty: 20 0RF gabapentin 300 mg capsule 300 mg PO 3XD Qty: 270 0RF Follow Up/Referrals: Lakhwinder Lau MD [Primary Care Provider] -
[2024-03-21 00:20] LABS: PCR FLU A POSITIVE PCR FLU A (Negative); PCR FLU B Negative PCR FLU B (Negative); PCR RSV Negative PCR RSV (Negative); SARS PCR* Negative SARS-CoV-2 (Negative)
--- NOTE | 2024-03-21 00:25 | ED.GENADULT ---
HPI - General Adult General Chief complaint: Shortness of Breath/Dyspnea Stated complaint: difficulty breathing/chills Time Seen by Provider: 03/20/24 23:48 History of Present Illness HPI narrative: [place] like something in throat yesterday Chest pains today, coughing up green globs , SOB, rattling when breathing Took tylenol around 1830 43-year-old woman presenting to the emergency department with cough chest pain and shortness of breath. She describes coughing up something large and green. She is having increasing pains, aches generally. Has been feeling ear pain. Facial discomfort as well. Possibly some wheeze but more described as ?rattling? when breathing. Measured elevated temperature but not technically fever at this time. No vomiting. Feels very uncomfortable. Related Data Home Medications ?Medication ?Instructions ?Recorded ?Confirmed [address] PO QDAY 11/11/22 03/17/24 lactobacillus combination no.4 3 3,000 mmu cells PO QDAY 11/11/22 03/20/24 billion cell capsule (Probiotic) turmeric root extract 500 mg 500 mg PO QDAY 11/11/22 03/20/24 capsule linaclotide 72 mcg capsule 72 mcg PO QAM 02/08/24 03/20/24 (Linzess) estradiol 10 mcg vaginal tablet 10 mcg vaginal 2XW 03/07/24 03/20/24 (Vagifem) herbal complex no.306 (Glucosa cap PO BID 03/07/24 03/17/24 Immune Booster capsule) magnesium glycinate 240 mg PO BID 03/07/24 03/20/24 Previous Rx's ?Medication ?Instructions ?Recorded hydroxyzine HCl 25 mg tablet See Rx Instructions .Route 10/28/22 .COMPLEX #60 ea alprazolam 0.5 mg tablet 0.5 mg PO BID PRN anxiety #20 tabs 12/27/23 gabapentin 300 mg capsule 300 mg PO 3XD #270 ea 02/29/24 spironolactone 50 mg tablet 50 mg PO QDAY #90 tabs 03/07/24 prednisone 20 mg tablet 40 mg (2 x 20 mg) PO DAILY 5 days 03/21/24 #10 tabs Allergies Allergy/AdvReac Type Severity Reaction Status Date / Time No Known Drug Allergies Allergy Verified 03/20/24 23:34 Review of Systems Status of ROS: Reports: 6 or more systems reviewed and unremarkable except as noted in History and below [facility] Medical History Bartholin's gland cyst ?N75.0 - Cyst of Bartholin's gland (ICD-10) Urinary frequency ?R35.0 - Frequency of micturition (ICD-10) Allergic reaction ?T78.40XA - Allergy, unspecified, initial encounter (ICD-10) Abdominal pain ?R10.9 - Unspecified abdominal pain (ICD-10) Chronic ear pain ?H92.09 - Otalgia, unspecified ear (ICD-10) ?G89.29 - Other chronic pain (ICD-10) Bacterial vaginitis ?N76.0 - Acute vaginitis (ICD-10) ?B96.89 - Other specified bacterial agents as the cause of diseases classified elsewhere (ICD-10) Urethritis ?N34.2 - Other urethritis (ICD-10) Radicular pain in left arm ?M79.2 - Neuralgia and neuritis, unspecified (ICD-10) Vulvovaginal pain ?R10.2 - Pelvic and perineal pain (ICD-10) Dysuria ?R30.0 - Dysuria (ICD-10) Yeast vaginitis ?B37.31 - Acute candidiasis of vulva and vagina (ICD-10) Surgical History Status post tubal ligation ?Z98.51 - Tubal ligation status (ICD-10) Status post ?Z98.891 - History of uterine scar from previous surgery (ICD-10) Family History Sister Gallbladder disease Father Diabetes High blood pressure High cholesterol Aunt Breast cancer Social History Narrative: Employes in [employer]. . Nonsmoker. Alcohol use: 3-4 per year Smoking Status: Never smoker How often do you have a drink containing alcohol: never AUDIT-C Alcohol total score: 0 Non-prescribed substance use: denies use service: No Exam Narrative: Exam Narrative: Looks as if she feels uncomfortable. Sclera is injected. Lungs are clear. Heart is tachycardic in a regular rhythm. Neck is supple without lymphadenopathy. Oropharynx with mild erythema posteriorly. TMs without inflammation though the right TM is a little full in the left TM is retracted. Sounds congested in the nasopharynx. Flushed across her face. Abdomen is soft nontender. Extremities are well perfused. Const: Vital Signs, click to edit/add: Vital Signs - 24 hr 03/20/24 23:27 Temperature 99.5 F Pulse Rate [Pulse Oximeter] 116 H Respiratory Rate 22 Blood Pressure [Ri ght Upper Arm] 132/89 Pulse Oximetry 100 Oxygen Delivery Me thod Room Air Documenting provider has reviewed patient's vital signs: yes Course Vital Signs Vital signs: Initial Vital Signs Temperature 99.5 F 03/20/24 23:27 Temperature Source Temporal Artery Scan 03/20/24 23:27 Pulse Rate 116 H 03/20/24 23:27 Respiratory Rate 22 03/20/24 23:27 Blood Pressure 132/89 03/20/24 23:27 Blood Pressure Mean 103 03/20/24 23:27 Blood Pressure Position Sitting 03/20/24 23:27 Pulse Oximetry 100 03/20/24 23:27 Oxygen Delivery Method Room Air 03/20/24 23:27 Vital Signs Temperature 99.5 F 03/20/24 23:27 Pulse Rate 116 H 03/20/24 23:27 Respiratory Rate 22 03/20/24 23:27 Blood Pressure 132/89 03/20/24 23:27 Pulse Oximetry 100 03/20/24 23:27 Oxygen Delivery Method Room Air 03/20/24 23:27 Temperature 99.5 F 03/20/24 23:27 Pulse Rate 116 H 03/20/24 23:27 Respiratory Rate 22 03/20/24 23:27 Blood Pressure 132/89 03/20/24 23:27 Pulse Oximetry 100 03/20/24 23:27 Oxygen Delivery Method Room Air 03/20/24 23:27 Medications Administered Medications: Discontinued Medications Generic Name Dose Route Start Last Admin Trade Name Freq PRN Reason Stop Dose Admin Ibuprofen 800 mg 03/21/24 00:47 03/21/24 00:52 Ibuprofen 400 Mg Tablet PO 03/21/24 00:48 800 mg ONCE ONE Administration Medical Decision Making MDM Narrative Medical decision making narrative: Considering community prevalence I would suspect influenza a. Would also screen for COVID. Does not appear to need any nebulization for reactive airway. Seems to have some possible sinusitis or eustachian tube dysfunction as well. Given a dose of ibuprofen here in the emergency department. Indeed influenza A positive. Chest x-ray had been ordered as well. Did independently review this and looks to be negative for infiltrate. Looked like she felt a little bit better prior to departure. Did spend some time discussing healthcare questions otherwise. See patient discharge plan for further discussion. She would like Tamiflu. Prescribed. Focus on hydration. Sleep under the mist of a cool mist humidifier. Consider neti pot and nasal saline rinses. I do think 12 hour pseudoephedrine might be beneficial. Yes, you can continue with guaifenesin. Can take up to 800 mg of ibuprofen and 1000 mg of acetaminophen per dose. If feeling facial discomfort or congestion is too much in a couple of days or you are noting wheeze in your chest; sending in a prescription of prednisone for you as well. Otherwise Tamiflu from [facility] as discussed and I would start it tonight. Medical Records Medical records reviewed: Yes I reviewed the patient's medical records Lab Data Lab results reviewed: Yes I reviewed the patient's lab results Labs: Lab Results 03/20/24 Range/Units 23:30 SARS-CoV-2 (PCR) Negative SARS-CoV-2 (Negative) Influenza Type A (PCR) POSITIVE PCR FLU A A (Negative) Influenza Type B (PCR) Negative PCR FLU B (Negative) RSV (PCR) Negative PCR RSV (Negative) Discharge Plan Discharge Clinical Impression: Influenza A, Otalgia Patient Disposition: Home w/ Parent or Adult Condition: Stable Additional Instructions: Focus on hydration. Sleep under the mist of a cool mist humidifier. Consider neti pot and nasal saline rinses. I do think 12 hour pseudoephedrine might be beneficial. Yes, you can continue with guaifenesin. Can take up to 800 mg of ibuprofen and 1000 mg of acetaminophen per dose. If feeling facial discomfort or congestion is too much in a couple of days or you are noting wheeze in your chest; sending in a prescription of prednisone for you as well. Otherwise Tamiflu from [facility] as discussed and I would start it tonight. Prescriptions: New prednisone 20 mg tablet 40 mg PO DAILY 5 Days Qty: 10 0RF No Action [address] PO QDAY Probiotic 3 billion cell capsule 3,000 mmu cells PO QDAY Rx Instructions: administer with a meal turmeric root extract 500 mg capsule 500 mg PO QDAY magnesium glycinate 100 mg magnesium capsule 240 mg PO BID Linzess 72 mcg capsule 72 mcg PO QAM estradiol [Vagifem] 10 mcg tablet 10 mcg vaginal 2XW Rx Instructions: insert vaginally twice per week Glucosa Immune Booster Capsule PO BID spironolactone 50 mg tablet 50 mg PO QDAY Qty: 90 3RF hydroxyzine HCl 25 mg tablet See Rx Instructions .ROUTE .COMPLEX Qty: 60 3RF Dose Instruction: TAKE 1 TABLET (25 MG TOTAL) BY MOUTH 2 (TWO) TIMES A DAY NEEDED FOR ANXIETY. Rx Instructions: TAKE 1 TABLET (25 MG TOTAL) BY MOUTH 2 (TWO) TIMES A DAY NEEDED FOR ANXIETY. alprazolam 0.5 mg tablet 0.5 mg PO BID PRN (Reason: anxiety) Qty: 20 0RF gabapentin 300 mg capsule 300 mg PO 3XD Qty: 270 0RF Follow Up/Referrals: Lakhwinder Lau MD [Primary Care Provider] - Stand Alone Forms: MyHealth Info Instructions
[2024-03-21] MEDS: IBUPROFEN 400 MG TABLET 800 MG PO (00:52)
--- OUTSIDE RECORDS SUMMARY | 2024-03-21 01:00 | XMS_ITS | Clinical Summary ---
Author Organization [facility] Address [place], [place] [address] Care Team Providers Care Interactive Media Marketing Strategist Name Role Phone Tone Mcqueen Unavailable [phone] Lakhwinder Lau MD Primary Care Provider [phone] Allergies No known active allergies Medications multivitamin [...] EVERY DAY AT BEDTIME NEEDED 4 Active fufov-[id number]-ep a-fish oil-D3 (Fish Oil-Vit D3) 360 mg-1,200 mg -1,000 unit cap Take 1 Capsule by mouth once daily. Active medication order composer CDG Estrogen Glutashield Vit B GI Microboics Active methylPREDNISol one (MEDROL DOSEPAK) 4 mg tabletIndicatio ns:Eustachian tube dysfunction, bilateral,Aller gy, initial encounter Take by mouth as instructed per packaging. 21 Tablet 4 Active Active Problems Problem Noted Date [...] Department Care Team Description 02/19/2024 9:13 PM [employer] - 02/20/2024 12:48 AM [employer] Emergency [facility] [address] [place] [address] Jamir Wilder MD Otalgia of both ears (Primary Dx); Eustachian tube dysfunction, bilateral; Allergy, initial encounter; Partial thickness burn of left ear, initial encounter Discharge Disposition: Home Self Care 02/19/2024 Travel 02/19/2024 Nurse Triage [facility] Nurse Triage Pcp, No Ear Pain/problem (Left) 01/17/2024 7:17 AM [employer] - 01/17/2024 11:59 PM [employer] Hospital Encounter [facility] [address] [place] [address] Kwesi East MD Other chest pain 01/17/2024 Travel 01/12/2024 Telephone [facility] [address] [place] [address] Laya Vargas RN 12/31/2023 10:00 AM CDT Office Visit [facility] [address] [facility] [place] [address] Kwesi East MD Concerns (Patient states she has some stinging/ burning in her chest occ /Patient states everyday she feels miserable /Patient states she has sone shortness of breath /Paitent denies dizziness ) 12/31/2023 Travel 12/27/2023 Telephone [facility] [address] [place] [address] Bettie Conklin, RD, [facility] Medical Nutrition Therapy (Pt called to cancel [...] AM CDT Legal Sex Female 8:27 AM [employer] Gender Identity Female 10/29/2023 8:27 AM CDT [...] Sal,BB Altaf Pierce MD Delivery Location:Hospital ( [facility] [address] L&D TRIAGE) Last Filed Vital Signs Vital Sign Reading Time Taken Comments Blood Pressure 114/70 02/20/2024 12:47 AM [employer] Pulse 66 02/20/2024 12:47 AM [employer] Temperature 36.4 C (97.6 F) 02/19/2024 8:25 PM [employer] Respiratory Rate 18 02/20/2024 12:47 AM [employer] Oxygen Saturation 100% 02/20/2024 12:47 AM [employer] Inhaled Oxygen Concentration - - Weight 80.3 kg (177 lb) 02/19/2024 8:25 PM [employer] Height 167.6 cm (5' 6) 02/19/2024 8:25 PM [employer] Body Mass Index 28.57 02/19/2024 8:25 PM [employer] Plan of Treatment Health Maintenance Due Date [...] BRAIN WO STAT 02/19/2024 11:0 6 PM [employer] MR ORBIT FACE WO STAT 02/19/2024 11:0 4 PM [employer] CT CARDIAC CORONARY ARTERIES DUAL READ Routine 01/17/2024 8:23 AM [employer] Other chest pain CREATININE,ISTAT Routine 01/17/2024 8:06 AM [employer] from Last 3 Months Results * MR BRAIN WO CONTRAST (02/19/2024 11:06 PM [employer]) Anatomical Region Laterality Modality BRAIN, HEAD Magnetic Resonan ce 02/19/2024 11:3 6 PM [employer] Narrative 02/19/2024 11:36 PM [employer] For Patients: As a result of the [...] MD @ 02/19/2024 11:36:42 PM (Electronically Signed) us Jamir Wilder MD MR Final Result * MR ORBIT FACE NECK WO CONTRAST (02/19/2024 11:04 PM [employer]) Anatomical Region Laterality Modality ORBITS, FACE Magnetic Resonan ce 02/19/2024 11:3 7 PM [employer] Narrative 02/19/2024 11:37 PM [employer] For Patients: As a result of the [...] MD @ 02/19/2024 11:37:02 PM (Electronically Signed) us Jamir Wilder MD MR Final Result * CT CARDIAC CORONARY ARTERIES DUAL READ (01/17/2024 8:23 AM [employer]ICE [employer]) Anatomical Region Laterality Modality HEART Computed Tomogra phy Impressions 01/25/2024 10:52 AM [employer] No significant incidental extracardiac findings. Please refer to drop hammer operator helper's dictation for the cardiac CT report. Narrative 01/25/2024 10:52 AM [employer]ICE [employer] Results are automatically released to your [email or web address] account once available, in compliance with federal regulations. This means that you may see your results before your provider has had a chance to review them. Please allow 2-3 business days for your provider to comment on the results. CT CORONARY ANGIOGRAM, 01/17/2024 INDICATION: Cardiovascular screening. CONCLUSIONS: This is a dual read study - please review [facility] over-read below for incidental non cardiac [...] Image post processing was performed on a [employer] Workstation. The patient received the following medications: [...] for incidental non-cardiac findings. Tamar Kaye MD [facility] AB/car For Patients: As a result of the Century Cures Act, medical imaging exams and procedure reports are released immediately into your electronic medical record. You may view this report before your referring provider. If you have questions, please contact your health care provider. EXAM: OVERREAD: DETAILED [facility] EXTRACARDIAC OVERREAD OF CARDIAC CT LOCATION: [facility] MEDICAL IMAGING DATE: 01/17/2024 INDICATION: Cardiac - Chest pain with equivocal stress test TECHNIQUE: Dose reduction techniques were used. COMPARISON: None. FINDINGS: LIMITED CHEST: Negative. LIMITED MEDIASTINUM: Negative. LIMITED UPPER ABDOMEN: Interval increase in the size of the partially imaged right hepatic lobe hemangioma. Kwesi East MD CT Final Result * (ABNORMAL) CREATININE,ISTAT (01/17/2024 8:06 AM [employer]ICE [employer]) CREATININE, POCT 1.00 0.57 - 1.11 mg/dL 01/17/2024 8:15 AM [employer]ICE [employer] [facility] Comment:Caution: Patients ta kamran Hydroxyurea have falsely increased iStat Creatinine results. Verify creatinine results ordering a Creatinine (88237.2) eGFR 72(L) >90 mL/min/1.7 3m2 01/17/2024 8:15 AM [employer]ICE [employer]IDENT [employer] [facility] Comment:As of 2021, eG FR is calculated by the CKD-EPI creatinine equation without race adjustment. eGFR can be influenced by muscle mass, exercise, and diet. The reported eGFR is an estimation only and is only applicable if the renal function is stable. Blood BLOOD SPECIMEN / Unknown 01/17/2024 8:06 AM [employer]ICE [employer] 01/17/2024 8:14 AM [employer]ICE [employer] us Kwesi East MD CHEMISTRY Final Result [facility] SENDOUT [place] [address]IP [id number] [address] [place] [address] from Last 3 Months Insurance [facility] Advance Directives * Full Code (Latest Code [...] AM Post [facility] [place] Care Teams Interactive Media Marketing Strategist Relationship Specialty Start Date End Date Lakhwinder Lau MD [address] [place] [address] PCP - General Family Practice 10/05/23 Tone Mcqueen [employer] [address] [facility] [address] [place] [address] Consulting Physician Cardiology - Interventional 03/21/20
--- OUTSIDE RECORDS SUMMARY | 2024-03-21 01:00 | XMS_ITS | Patient Health Record ---
Author Organization [facility] Address [address] [place] [address] Care Team Providers Care Equipment Operator/Laborer Name Role Phone Jaciel Momoberyl Primary Care Provider UnavailBENJAMIN Palmer Unavailable [phone] None, None Unavailable Unavailable Candace Singleton Unavailable [phone] Allergies No Known Allergies Reason For Referral [...] Problem Status W/U Status Risk Notes Problem [id number] Tinnitus, bilate ral (H93.13) Active confirmed Problem 32865131 Chronic rhinitis (J31.0) Active confirmed Problem 91448238 Hypertrophy of b 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) Active confirmed Problem 065721772 Throat irritatio n (J39.2) Active confirmed Problem 4490585123325810 Bilateral sensorineural hearing loss (H90.3) Active confirmed Problem 13163063 Nasal septal deformity (J34.2) Active confirmed Problem 87712902 Nasal septal deformity (J34.2) Active confirmed Problem 607951681 Otalgia 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) Active confirmed Problem 3507888279731 Bilateral tinnit us (H93.13) Active confirmed Problem 53529600 Nasal dryness (J34.89) Active confirmed Problem 25161928 Chronic sinusiti s, unspecified location (J32.9) Active confirmed Problem 165045554 Laryngopharyngea l reflux (LPR) (K21.9) Active confirmed Problem 51947505 Chronic rhinitis (J31.0) Active confirmed Problem 089884856 Facial pressure (R44.8) Active confirmed Problem 32451436 Facial pain (R51.9) Active confirmed Problem 573168485 History of fibromyalgia (Z87.39) Active confirmed Vital Signs Height-cm 167.64 cm 02/15/2024 Weight-kg 80.29 kg 02/15/2024 Height 66 in 02/15/2024 Weight 177 lbs 02/15/2024 BMI 28.57 kg/m2 02/15/2024 Procedures Procedure Date Ordered Date Performed Result Body Sit e OTOMICROSCOPIC EAR EXAM 02/15/2024 02/15/2024 N/A Encounters Encounter Location Date Provider Diagnosis [facility] [address] [place] [address] 02/15/2024 BENJAMIN CARVAJAL Otalgia of both ears H92.03 ; Chronic rhinitis J31.0 ; Facial pressure R44.8 ; History of fibromyalgia Z87.39 and Bilateral sensorineural hearing loss H90.3 [facility] [address] [place] [address] 02/15/2024 Candace Singleton Bilateral sensorineural hearing loss [...] previously been seen by Fibromyalgia specialists at [facility] as well as her primary care team. [...] Insured Coverage Start Date Coverage End Date [facility] [address] [place] [address] [id number] Henny Rivas Self - patient is the insured Medical (General) History Medical History History ICD Code fibromyalgia Surgical History Surgery Date(Month/Year) C section
--- OUTSIDE RECORDS SUMMARY | 2024-03-21 01:00 | XMS_ITS | Referral Summary ---
Author Organization [place] Address [address] [place] [address] Care Team Providers Care Web Marketing Assistant Name Role Phone Teean Hargrove MD Primary Care Provider [phone] Seble Dickinson PA-C Unavailable Allergies Active Allergy [...] Active VANCE-D 12 HOUR## 60-120 MG OR [id number]:A llergic rhinitis, cause unspecified 1 TABLET TWICE [...] on file Legal Sex Female 4:36 AM OVEN HEATER Gender Identity Not on file Sexual Orientation [...] 108.9 kg (240 lb) 03/17/2020 12:13 PM OVEN HEATER Height 167.6 cm (5' 6) 02/19/2019 2:39 PM OVEN HEATER Body Mass Index 38.74 02/19/2019 2:39 PM OVEN HEATER Plan of Treatment Not on file Procedures Procedure Name Priority Date/Time Associated Diagnosis Comments LIPID PROFILE Routine 02/01/2023 10:25 AM OVEN HEATER Encounter for screening for lipoid disorders GYNECOLOGIC CYTOLOGY Routine 02/01/2023 10:00 AM OVEN HEATER Encounter for screening for malignant neoplasm of cervix BASIC METABOLIC PANEL STAT 05/25/2020 12:50 AM CDT from Last 3 Months or Most Recently Relevant to Health Maintenance Results * (ABNORMAL) Lipid Profile (02/01/2023 10:25 AM OVEN HEATER) Cholesterol 198 <200 mg/dL 02/01/2023 2:46 PM OVEN HEATER [facility] Triglycerides 102 <150 mg/dL 02/01/2023 2:46 PM OVEN HEATER [facility] Direct Measure HDL 53 >=50 mg/dL 02/01/2023 2:46 PM OVEN HEATER [facility] LDL Cholesterol Calculated 125(H) <=100 mg/dL 02/01/2023 2:46 PM OVEN HEATER [facility] Non HDL Cholesterol 145(H) <130 mg/dL 02/01/2023 2:46 PM OVEN HEATER [facility] Blood TOPOGRAPHY UNKNOWN / Unknown Client Draw / Unknown 02/01/2023 10:25 AM OVEN HEATER 02/01/2023 1:09 PM OVEN HEATER Narrative [facility] - 02/01/2023 2:46 PM OVEN HEATER Cholesterol Desirable: <200 mg/dL Triglycerides Normal: Less [...] Greater than or equal to 220 mg/dL Jerciho Hernandez PA-C LAB - BLOOD ORDERABLES Final Result [facility] [address] [facility], [address] [place] [address], [facility] [phone] * Gynecologic Cytology (PAP) (02/01/2023 10:00 AM OVEN HEATER) Interpretation Negative for Intraepithelial Lesion or Malignancy (NILM) 02/03/2023 9:28 AM OVEN [facility]ATER [facility] Comment Papanicolaou Test Limitations: Cervical cytology is a screening test with limited sensitivity, and regular screening is critical for cancer prevention. Pap tests are primarily effective for the diagnosis/prevent ion of squamous cell carcinoma, not adenocarcinoma or other cancers. 02/03/2023 9:28 AM OVEN [facility]ATER [facility] Specimen Adequacy Satisfactory for evaluation, endocervical/wilkes sformation zone component present 02/03/2023 9:28 AM [facility] Clinical Information none 02/03/2023 9:28 AM [facility] LMP/Menopause Date 01-24-2023 02/03/2023 9:28 AM [facility]EN [facility] Reflex Testing Yes regardless of result 02/03/2023 9:28 AM OVEN [facility]ATER [facility] Previous Abnormal? No 02/03/2023 9:28 AM [facility]EN [facility] Previous Abnormal Diagnosis NILM with NEG HPV 02/03/2023 9:28 AM OVEN HEATER [facility] Performing Labs The technical component of this testing was completed at [facility] 02/03/2023 9:28 AM OVEN HEATER [facility] Brushing CERVIX UTERI STRUCTURE / Unknown 02/01/2023 10:00 AM OVEN HEATER 02/01/2023 1:15 PM OVEN HEATER Jericho BereMarito ROGEL Final R esult [facility] [address] [facility] [address], [address] [address], [facility] [phone] * (ABNORMAL) Basic metabolic panel (05/25/2020 12:50 AM CDT) Sodium 147(H) 133 - 144 mmol/L 05/25/2020 1:26 AM [facility] Comment:Reviewed, acceptable Potassium 3.6 3.4 - 5.3 mmol/L 05/25/2020 1:26 AM [facility] Chloride 110(H) 94 - 109 mmol/L 05/25/2020 1:26 AM [facility] Carbon Dioxide 25 20 - 32 mmol/L 05/25/2020 1:26 AM [facility] Anion Gap 12 3 - 14 mmol/L 05/25/2020 1:26 AM [facility] Glucose 84 70 - 99 mg/dL 05/25/2020 1:26 AM [facility] Urea Nitrogen 10 7 - 30 mg/dL 05/25/2020 1:26 AM [facility] Creatinine 0.57 0.52 - 1.04 mg/dL 05/25/2020 1:26 AM [facility] GFR Estimate >90 >60 mL/min/{1. 73_m2} 05/25/2020 1:26 AM [facility] Comment: Non GFR Calc Starting 02/22/2018, serum creatinine based estimated GFR (eGFR) will be calculated using the Chronic Kidney Disease Epidemiology Collaboration (CKD-EPI) equation. GFR Estimate If Black >90 >60 mL/min/{1. 73_m2} 05/25/2020 1:26 AM [facility] Comment: GFR Calc Starting 02/22/2018, serum creatinine based estimated GFR (eGFR) will be calculated using the Chronic Kidney Disease Epidemiology Collaboration (CKD-EPI) equation. Calcium 9.3 8.5 - 10.1 mg/dL 05/25/2020 1:26 AM [facility] Blood specimen (specimen) 05/25/2020 12:50 AM CDT 05/25/2020 1:00 AM CDT Trevon Lr MD LAB - BLOOD ORDERABLES Final Re sult [facility] [address] [place] [address], [facility] [phone] from Last 3 Months or Most Recently Relevant to Health Maintenance Insurance [facility] Address: [facility] [id number] [id number] Care Teams Web Marketing Assistant Relationship Specialty Start Date End Date Teena Hargrove MD PCP - General lidder 03/17/20 Seble Dickinson PA-C [address] [address] Physician Hand Etcher Urology 08/24/22
--- OUTSIDE RECORDS SUMMARY | 2024-03-21 01:00 | XMS_ITS ---
Author Organization [facility] Address [address] [place] [address] Care Team Providers Care Seam Closer Name Role Phone Jaciel Josie Primary Care Provider UnavailBENJAMIN Palmer Unavailable [phone] None, None Unavailable Unavailable Candace Singleton Unavailable [phone] REASON FOR VISIT sinus infection Encounters Encounter Location Date Provider Diagnosis [facility] [address] [place] [address] 02/15/2024 Candace Singleton Bilateral sensorineu ral hearing loss H90.3 and Tinnitus, bilateral H93.13 Assessments Encounter Date Diagnosis (ICD Code) Assessment Notes Treatment Notes Treatment Clinical Notes Section Notes 02/15/2024 Bilateral sensorineural hearing loss (ICD-10 - H90.3) 02/15/2024 Tinnitus, bilateral (ICD-10 - H93.13) Plan Of Treatment Next Appt Details Follow Up: per ENT, Reason: Progress Notes * Henny FRANCES SDOB: [birth year] (43 yo F)Acc No.[id number]:02/15/2024 ENT Referred Audio Patient: Henny RENO Provider: Rahul Singleton :1980 A ge:43 Y S ex:Female Date:02/15/2024 Address:[address] [place] [id number] Pcp:Josie Grissom Subjective: * Chief Complaints: * S inus infection * HPI: A udiology: o P veronica is seen through clinic for a hearing evaluation per Dr. Benjamin Car . See physician's HPI below. Maria Luisa Reinoso Au.D., am documenting and personally performing services for Ignacia Ruiz, CCC-A. Candace Reinoso Au.D., [facility], attest that Ignacia Rivera, has documented and [...] 2557 Comp audio without SRT, Modifiers: [id number] Tympanometry jacqueline * Follow Up: p er ENT * * MOTIVE ENGINEERING TECHNICIAN Sign off status: Completed true * Provider: Rahul Singleton Date: 1 04/17/2023 Generated for Salvador leos/Ciaran/Jodi on: 0 03/21/2024 12:59 AM AUTOMOTIVE ENGINEERING TECHNICIAN History and Physical Notes * HPI (History of Present Illness) Category Sub-Category Detail Notes Category Not es Audiology o Patient is seen through clinic for a hearing evaluation per Dr. Benjamin Car . See physician's HPI below Kemar, Ignacia Rivera, am documenting and personally performing services for Ignacia Ruiz, [facility]. Candace Reinoso Au.D., [facility], attest that Ignacia Rivera, has documented and [...]
--- OUTSIDE RECORDS SUMMARY | 2024-03-21 01:00 | XMS_ITS | Continuity of Care Document ---
Author Name NwHIN User [email or web address] llowed Address Unknown Organization Unknown Address Unknown Procedures FILTER APPLIED:Only known Procedures with Onset Date within the last 5 years Procedure Date Procedure Provider Additiona l Information Status CREATININE (38392) Compl eted TRICHOMONAS VAGINALIS AMPLIF (39310) Completed NFCT DS BV RNA VAG FLU ALG (17614) Completed JANELLE DNA AMP PROBE (64077) Completed TRICHOMONAS VAGINALIS AMPLIF (15978) Completed JANELLE DNA AMP PROBE (70591) Completed NFCT DS BV RNA VAG FLU ALG (47875) Completed NFCT DS BV RNA VAG FLU ALG (25778) Completed TRICHOMONAS VAGINALIS AMPLIF (81127) Completed URINE CULTURE/COLONY COUNT (08834) Completed MYCOPLASMA (79199) Compl eted JANELLE DNA AMP PROBE (58679) Completed URINE CULTURE/COLONY COUNT (64163) Completed CHLMYD TRACH DNA AMP PROBE (39329) Completed TRICHOMONAS VAGINALIS AMPLIF (65860) Completed JANELLE DNA AMP PROBE (49903) Completed NFCT DS BV RNA VAG FLU ALG (37261) Completed N.GONORRHOEAE DNA AMP PROB (21853) Completed URINE CULTURE/COLONY COUNT (00762) Completed URINE CULTURE/COLONY COUNT (04082) Completed EMERGENCY DEPT VISIT MOD MDM (91006) Completed EMERGENCY DEPT VISIT HI MDM (28386) Completed THER/PROPH/DIAG INJ IV PUSH (45224) Completed MEASURE BLOOD OXYGEN LEVEL (42696) Completed ELECTROCARDIOGRAM TRACING (90994) Completed RESP VIRUS 3-5 TARGETS (90509) Completed FIBRIN DEGRADATION QUANT (32102) Completed COMPLETE CBC W/AUTO DIFF WBC (23957) Completed ASSAY OF TROPONIN QUANT (26673) Completed ASSAY OF LIPASE (87764) Completed URINALYSIS AUTO W/SCOPE (07046) Completed COMPREHEN METABOLIC PANEL (09390) Completed CT ANGIOGRAPHY CHEST (51246) Completed CT MAXILLOFACIAL W/O DYE (84592) Completed CT HEAD/BRAIN W/O DYE (79535) Completed ROUTINE VENIPUNCTURE (88420) Completed TX/PRO/DX INJ NEW DRUG ADDON (91603) Completed Encounters FILTER APPLIED:Only known Encounters with Admission Date within the last 5 years Encounter Location Admission Discharge Billing Code Consultant Malika jaffe Emergency Carla Rosen Emergency Emergency Emergency Emergency Outpatient Annamarie Colon Outpatient Juan J Lau Outpatient June [facility] Outpatient June [facility] Outpatient Yadiel Tabares Outpatient Yadiel Tabares Outpatient June [facility] Outpatient [id number] JJ EDDY Outpatient [id number] MICHELLE JONES [facility] [id number] TRAN QUIROS
--- OUTSIDE RECORDS SUMMARY | 2024-03-21 01:00 | XMS_ITS ---
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) Active confirmed Problem 383988963 Facial pressure (R44.8) Active confirmed Problem 484055762 History of fibromyalgia (Z87.39) Active confirmed Problem [id number] Bilateral sensorineural hearing loss (H90.3) Active confirmed Vital Signs Height 66 in 02/15/2024 BMI 28.57 kg/m2 02/15/2024 Height-cm 167.64 cm 02/15/2024 Weight-kg 80.29 kg 02/15/2024 Weight 177 lbs 02/15/2024 Procedures Procedure Date Ordered Date Performed Result Body Sit e OTOMICROSCOPIC EAR EXAM 02/15/2024 02/15/2024 N/A Encounters Encounter Location Date Provider Diagnosis [facility] [place] [address] [address] 02/15/2024 BENJAMIN CARVAJAL Otalgia of both ears [...] seen by Fibromyalgia specialists at [facility] as well as her primary care [...] seen by Fibromyalgia specialists at [facility] as well as her primary care [...] Henny FRANCES SDOB: [birth year] (43 yo F)Acc No.[id number]:02/15/2024 Patient: Henny RENO Provider: Rahul Carvajal MD :1980 A ge:43 Y S ex:Female Date:02/15/2024 Address:[address] [place], [place] [phone] Pcp:Josie Grissom Subjective: * Chief Complaints: * [...] voice quality. ? E ars: Clinical speech cloth checker threshold: N ormal, able to hear normal [...] seen by Fibromyalgia specialists at [facility] as well as her primary care [...] microscopy (in-office) * Preventive Medicine: MIPS: B TN Above Normal BMI Follow-up D ietary management education, guidance, and counseling * Follow Up: p rn,1 Year * * L TUNER Sign off status: Completed true * Provider: Rahul Carvajal MD Date: 04/17/2023 Generated for Ольгаi ng/Ciaran/eTransmitting on: 0 03/21/2024 12:59 AM WHEEL TUNER History and Physical Notes * HPI (History [...] ranasal sinuses non tender Ears Clinical speech cloth checker threshold: Norm al, able to hear normal [...]
--- OUTSIDE RECORDS SUMMARY | 2024-03-21 01:00 | XMS_ITS | Clinical Summary ---
Author Organization [facility] Address [address] [place] [address] Care Team Providers Care Installation Engineer Name Role Phone Teena Hargrove MD Primary Care Provider [phone] Seble Dickinson PA-C Unavailable Allergies Active Allergy [...] Active VANCE-D 12 HOUR## 60-120 MG OR [id number]:A llergic rhinitis, cause unspecified 1 TABLET TWICE [...] on file Legal Sex Female 4:36 AM CARPENTER MATE Gender Identity Not on file Sexual Orientation [...] 108.9 kg (240 lb) 03/17/2020 12:13 PM CARPENTER MATE Height 167.6 cm (5' 6) 02/19/2019 2:39 PM CARPENTER MATE Body Mass Index 38.74 02/19/2019 2:39 PM CARPENTER MATE Plan of Treatment Health Maintenance Due Date [...] Comments LIPID PROFILE Routine 02/01/2023 10:25 AM CARPENTER MATE Encounter for screening for lipoid disorders GYNECOLOGIC CYTOLOGY Routine 02/01/2023 10:00 AM CARPENTER MATE Encounter for screening for malignant neoplasm of cervix BASIC METABOLIC PANEL STAT 05/25/2020 12:50 AM CDT from Last 3 Months or Most Recently Relevant to Health Maintenance Results * (ABNORMAL) Lipid Profile (02/01/2023 10:25 AM CARPENTER MATE) Cholesterol 198 <200 mg/dL 02/01/2023 2:46 PM CARPENTER MATE [facility] Triglycerides 102 <150 mg/dL 02/01/2023 2:46 PM CARPENTER MATE [facility] Direct Measure HDL 53 >=50 mg/dL 02/01/2023 2:46 PM CARPENTER MATE [facility] LDL Cholesterol Calculated 125(H) <=100 mg/dL 02/01/2023 2:46 PM CARPENTER MATE [facility] Non HDL Cholesterol 145(H) <130 mg/dL 02/01/2023 2:46 PM CARPENTER MATE [facility] Blood TOPOGRAPHY UNKNOWN / Unknown Client Draw / Unknown 02/01/2023 10:25 AM CARPENTER MATE 02/01/2023 1:09 PM CARPENTER MATE Narrative [facility] - 02/01/2023 2:46 PM CARPENTER MATE Cholesterol Desirable: <200 mg/dL Triglycerides Normal: Less [...] - BLOOD ORDERABLES Final Result [facility] [address] [facility], [address] [address], [facility] [phone] * Gynecologic Cytology (PAP) (02/01/2023 10:00 AM CARPENTER MATE) Interpretation Negative for Intraepithelial Lesion or Malignancy (NILM) 02/03/2023 9:28 AM [facility]PENTER [facility] Comment Papanicolaou Test Limitations: Cervical cytology is a screening test with limited sensitivity, and regular screening is critical for cancer prevention. Pap tests are primarily effective for the diagnosis/prevent ion of squamous cell carcinoma, not adenocarcinoma or other cancers. 02/03/2023 9:28 AM CARPENTER MATE [facility] Specimen Adequacy Satisfactory for evaluation, endocervical/wilkes sformation zone component present 02/03/2023 9:28 AM [facility] Clinical Information none 02/03/2023 9:28 AM [facility] LMP/Menopause Date 01-24-2023 02/03/2023 9:28 AM [facility]PENTER MATE [facility] Reflex Testing Yes regardless of result 02/03/2023 9:28 AM [facility]PENTER [facility]ATE [facility] Previous Abnormal? No 02/03/2023 9:28 AM CARPENTER MATE [facility] Previous Abnormal Diagnosis NILM with NEG HPV 02/03/2023 9:28 AM CARPENTER MATE [facility] Performing Labs The technical component of this testing was completed at [facility] 02/03/2023 9:28 AM CARPENTER MATE [facility] Brushing CERVIX UTERI STRUCTURE / Unknown 02/01/2023 10:00 AM CARPENTER MATE 02/01/2023 1:15 PM CARPENTER MATE us Jericho Hernandez PA-C LAB - BEAKER AP Final R esult [facility] [address] [facility], [address] [address], [facility] [phone] * (ABNORMAL) Basic metabolic panel (05/25/2020 12:50 AM CDT) Sodium 147(H) 133 - 144 mmol/L 05/25/2020 1:26 AM [facility] Comment:Reviewed, acceptable Potassium 3.6 3.4 - 5.3 mmol/L 05/25/2020 1:26 AM [facility] Chloride 110(H) 94 - 109 mmol/L 05/25/2020 1:26 AM [facility] Carbon Dioxide 25 20 - 32 mmol/L 05/25/2020 1:26 AM [facility] Anion Gap 12 3 - 14 mmol/L 05/25/2020 1:26 AM [facility] Glucose 84 70 - 99 mg/dL 05/25/2020 1:26 AM [facility] Urea Nitrogen 10 7 - 30 mg/dL 05/25/2020 1:26 AM [facility] Creatinine 0.57 0.52 - 1.04 mg/dL 05/25/2020 1:26 AM [facility] GFR Estimate >90 >60 mL/min/{1. 73_m2} 05/25/2020 1:26 AM [facility] Comment: Non GFR Calc Starting 02/22/2018, serum creatinine based estimated GFR (eGFR) will be calculated using the Chronic Kidney Disease Epidemiology Collaboration (CKD-EPI) equation. GFR Estimate If Black >90 >60 mL/min/{1. 73_m2} 05/25/2020 1:26 AM [facility] Comment: GFR Calc Starting 02/22/2018, serum creatinine based estimated GFR (eGFR) will be calculated using the Chronic Kidney Disease Epidemiology Collaboration (CKD-EPI) equation. Calcium 9.3 8.5 - 10.1 mg/dL 05/25/2020 1:26 AM [facility] Blood specimen (specimen) 05/25/2020 12:50 AM CDT 05/25/2020 1:00 AM CDT us Trevon Lr MD LAB - BLOOD ORDERABLES Final Re sult [facility] [address] [place] [address], [facility] [phone] from Last 3 Months or Most Recently Relevant to Health Maintenance Insurance [facility] Member Subscriber Plan / Payer (Ef fective 2020-Present) Name:DION KOROMA Relation to Subscriber:Self Name:Henny Rivas Payer ID:[id number] (IC) Type:HMO Address: [facility] [id number] [place] [phone] Care Teams Installation Engineer Relationship Specialty Start Date End Date Teena Hargrove MD PCP - General cutter operator brick 03/17/20 Seble Dickinson PA-C [address] [address] Physician Teradata Solution Architect Urology 08/24/22
--- OUTSIDE RECORDS SUMMARY | 2024-03-21 01:01 | XMS_ITS ---
Author Organization [facility] Address [address] [place] [address] Care Team Providers Care Special Effects Artist Name Role Phone Unavailable Unavailable Unavailable Surgery Details Not on file Complications Check Surgery Details section. Procedure Estimated Blood Loss Check Surgery Details section. Procedure Findings Check Surgery Details section. Procedure Specimens Taken Check Surgery Details section.
--- OUTSIDE RECORDS SUMMARY | 2024-03-21 01:01 | XMS_ITS | Clinical Summary ---
Author Organization [facility] Address [address] [place] [address] Care Team Providers Care 4 H Youth Development Specialist Name Role Phone Elsewhere, Pcp Primary Care Provider Unavailabl e Source Comments Patient records contain information from all sites at [facility]. For routine questions regarding patient records, call [phone] during business hours, M-F 8:00 AM - 5:00 PM Central Time. Record requests for emergency care only can be directed to [phone] at any time.[facility] Allergies No known active allergies Medications [...] How often do you attend chur or taoism services? 1 to 4 times per year [...] PHQ-2 Score 0 12/10/2021 [facility] - Occupational Stress [...] PM CDT Legal Sex Female 3:24 PM DELIVERY CONSULTANT Gender Identity Female 12/05/2020 12:09 PM CDT Sexual Orientation Not on file Last Filed Vital Signs Vital Sign Reading Time Taken Comments Blood Pressure 117/81 03/27/2023 8:42 AM DELIVERY CONSULTANT Pulse 94 03/27/2023 8:42 AM DELIVERY CONSULTANT Temperature 36.2 C (97.2 F) 03/27/2023 8:42 AM DELIVERY CONSULTANT Respiratory Rate 16 03/12/2023 8:34 AM DELIVERY CONSULTANT Oxygen Saturation 98% 03/27/2023 8:42 AM DELIVERY CONSULTANT Inhaled Oxygen Concentration - - Weight 95.8 kg (211 lb 4.8 oz) 03/27/2023 8:42 A M DELIVERY CONSULTANT Height 169.4 cm (5' 6.69) 03/27/2023 8:42 AM CS T Body Mass Index 33.4 03/27/2023 8:42 AM DELIVERY CONSULTANT Plan of Treatment Upcoming Encounters Date Type Department Care Team (Late st Contact Info) Description 03/21/2024 11:00 AM DELIVERY CONSULTANT Office Visit Department of Otorhinolaryngology in [place], [place] [address] [phone] Bonnie Lagos AUD, Au.D. [address] [phone] 03/21/2024 12:00 PM DELIVERY CONSULTANT Office Visit Department of Otorhinolaryngology in [place], [place] [address] [phone] Lakhwinder Patel M.D. [address] [phone] Health Maintenance Due Date Last Done Comments [...] patient[id number] [facility] Care Teams 4 H Youth Development Specialist Relationship Specialty Start Date End Date Elsewhere, Pcp PCP - General Internal Medicine 01/07/22
--- OUTSIDE RECORDS SUMMARY | 2024-03-21 01:01 | XMS_ITS | Referral Summary ---
Author Organization [facility] Address [address] [place] [address] Care Team Providers Care Biodiesel Product Development Manager Name Role Phone Elsewhere, Pcp Primary Care Provider Unavailabl e Source Comments Patient records contain information from all sites at [facility]. For routine questions regarding patient records, call [phone] during business hours, M-F 8:00 AM - 5:00 PM Central Time. Record requests for emergency care only can be directed to [phone] at any time.[facility] Allergies No known active allergies Medications * [...] any clubs o r organizations such as yazdanism groups, unions, fraternal or athletic groups, or [...] Answer Date Recorded PHQ-2 Score 0 12/10/2021 [facility] - Occupational [...] PM CDT Legal Sex Female 3:24 PM NUCLEAR MEDICINE OFFICER Gender Identity Female 12/05/2020 12:09 PM CDT Sexual Orientation Not on file Last Filed Vital Signs Vital Sign Reading Time Taken Comments Blood Pressure 117/81 03/27/2023 8:42 AM NUCLEAR MEDICINE OFFICER Pulse 94 03/27/2023 8:42 AM NUCLEAR MEDICINE OFFICER Temperature 36.2 C (97.2 F) 03/27/2023 8:42 AM NUCLEAR MEDICINE OFFICER Respiratory Rate 16 03/12/2023 8:34 AM NUCLEAR MEDICINE OFFICER Oxygen Saturation 98% 03/27/2023 8:42 AM NUCLEAR MEDICINE OFFICER Inhaled Oxygen Concentration - - Weight 95.8 kg (211 lb 4.8 oz) 03/27/2023 8:42 A M NUCLEAR MEDICINE OFFICER Height 169.4 cm (5' 6.69) 03/27/2023 8:42 AM CS T Body Mass Index 33.4 03/27/2023 8:42 AM NUCLEAR MEDICINE OFFICER Plan of Treatment Upcoming Encounters Date Type Department Care Team (Late st Contact Info) Description 03/21/2024 11:00 AM NUCLEAR MEDICINE OFFICER Office Visit Department of Otorhinolaryngology in [place], [place] [address] [phone] Bonnie Lagos AUD, Au.D. [address] [phone] 03/21/2024 12:00 PM NUCLEAR MEDICINE OFFICER Office Visit Department of Otorhinolaryngology in [place], [place] [address] [phone] Lakhwinder Patel M.D. [address] [phone] Insurance SUREST Care Teams Biodiesel Product Development Manager Relationship Specialty Start Date End Date Elsewhere, Pcp PCP - General Internal Medicine 01/07/22
--- OUTSIDE RECORDS SUMMARY | 2024-03-21 01:01 | XMS_ITS | Clinical Summary ---
Author Organization [facility] Address [address] [place] [address] Care Team Providers Care Rubber Goods Tester Water Name Role Phone Unavailable Primary Care Provider [...] for each transition of care or referral. [employer] Allergies No known active allergies Medications Medication [...] Department Care Team Description 01/31/2024 8:20 AM MEDICAL ASSISTANT CARDIOLOGY Office Visit [place] [address] [facility] [address] [place] [address] Jaquelin Garcia MD Acute non-recurrent [...] Comments Blood Pressure 125/85 01/31/2024 8:17 AM MEDICAL ASSISTANT CARDIOLOGY Pulse 65 01/31/2024 8:17 AM MEDICAL ASSISTANT CARDIOLOGY Temperature 36.3 C (97.3 F) 01/31/2024 8:17 AM MEDICAL ASSISTANT CARDIOLOGY Respiratory Rate 16 01/31/2024 8:17 AM MEDICAL ASSISTANT CARDIOLOGY Oxygen Saturation 100% 01/31/2024 8:17 AM MEDICAL ASSISTANT CARDIOLOGY Inhaled Oxygen Concentration - - Weight 83.5 [...] HENNY CHANEY CERVICAL CYTOLOGY REPORT Pathology # [id number] Date Obtained: Date Received: CYTOLOGIC IMPRESSION: Negative [...]
== END 2024-03-21 01:28 | disposition home or self-care (01) ==
PROVIDERS: Emergency Provider Family Medicine; PCP Family Medicine
DX: J10.1 Influenza due to other identified influenza virus with other respiratory manifestations (principal); H92.03 Otalgia, bilateral
CPT/HCPCS: 71046; 87631; 99283; 99284; A9270

== ENCOUNTER 2024-05-26 09:17 | Outpatient (CLI) | payer OTHER, SELFPAY ==
[2024-05-26 11:51] LABS: Bacterial Vaginosis* Negative (Negative); Candida glab/krus NOT DETECTED (No Detected); Candida species NOT DETECTED (No Detected); Trichomonas vaginalis NOT DETECTED (No Detected)
[2024-05-28 01:41] LABS: HPV Source Cervix; HPV, High Risk by TMA Not Detected
== END 2024-05-26 09:18 | disposition home or self-care (01) ==
PROVIDERS: PCP Family Medicine; Visit Provider Registered Nurse
DX: N89.8 Other specified noninflammatory disorders of vagina (principal); Z12.4 Encounter for screening for malignant neoplasm of cervix; Z11.51 Encounter for screening for human papillomavirus (HPV); Z11.3 Encounter for screening for infections with a predominantly sexual mode of transmission; Z13.220 Encounter for screening for lipoid disorders
CPT/HCPCS: 80061; 81513; 87481; 87624; 87625; 87661; 88141; 88142

== ENCOUNTER 2024-08-28 09:01 | Outpatient (CLI) | payer OTHER, SELFPAY ==
--- OUTSIDE RECORDS SUMMARY | 2024-07-17 10:00 | XMS_ITS | Encounter Summary ---
[facility] Address [address], [place] [address] Care Team Providers Care Paint Department Supervisor Name Role Phone Unavailable Primary Care Provider Unavailabl e Reason for Visit * Reason Comments Pharyngitis Encounter Details Date Type Department Care Team (Late st Contact Info) Description 07/17/2024 10:00 AM CDT Office Visit [place] [address] [facility] [address] [place] [address] Jesus Manuel Hu, SUPPLY CHAIN ASSISTANT, COLLAR STARCHER [address] [place] [address] Pharyngitis, unspecified etiology; Nasal congestion Social History Tobacco Use Types Packs/Day Years Used Date Smoking Tobacco: Never Comments No Sex and Gender Information Value Date Recorded Sex Assigned at Not on file Legal Sex Female 7:57 AM CDT Gender Identity Not on file Sexual Orientation Not on file documented as of this encounter Last Filed Vital Signs Vital Sign Reading Time Taken Comments Blood Pressure 115/80 07/17/2024 9:59 AM CDT Pulse 75 07/17/2024 9:59 AM CDT Temperature 36.6 C (97.8 F) 07/17/2024 9:59 AM CDT Respiratory Rate 16 07/17/2024 9:59 AM CDT Oxygen Saturation 100% 07/17/2024 9:59 AM CDT Inhaled Oxygen Concentration - - Weight - - Height - - Body Mass Index - - documented in this encounter Patient Instructions * Patient Instructions* Jesus Manuel Hu, CELINA, COLLAR STARCHER - 07/17/2024 10:00 AM CDT *You may use udgx-cem-nzqjusx cough and cold medicine such as DayQuil and NyQuil or their generic equivalents. (Remember that these medications often contain acetaminophen. You should not exceed 4000mg of acetaminophen daily) *You may also add in ibuprofen for any body aches. *For nasal congestion you may add and pseudoephedrine (short acting) (4 yrs +).. *Often even if you do not have known allergies there may be a allergy component and try an ohzn-jez-mfooans antihistamine such as Zyrtec, Bere, Xyzal, or Claritin (6 months +) can help. *You may also try Flonase (fluticasone) or similar (2 yrs +) . * May also try Azelastine (2 yrs +) nasal antihistamine *Nasal saline rinse. Vicks Vaporub *Cough drops and throat lozenges as well as sprays can help if you have sore throat. *Viral illnesses frequently last a minimum of 5-7 days and often can last with lingering symptoms up to 2 weeks or more. Viral illnesses can also change. Follow up with primary care in 5-7 days if noimprovement or sooner if worsening. Your strep test is pending. They will call you only if it is positive. If you are positive they will send in antibiotics for you. If you need to start antibiotics and have a manual tooth brush she should throw it away. If you have an electronic tooth brush you should either soak the head in Listerine for like 12 hours, run headthrough the sterilization cycle of your lure maker if it has it, or replace the head. If you do getantibiotics make sure and finish the entire course. Do not save any extra antibiotics. There should not be extra antibiotics. Use Tylenol and/or ibuprofen as needed as directed for discomfort. You may use other wutm-trb-bnolepq remedies as well (throat lozenges and sprays such as Chloraseptic). If they will tolerate warm fluids with honey and lemon this will also help. documented in this encounter Progress Notes * Jesus Manuel Hu APRN, CNP - 07/17/2024 10:00 AM CDT Patient ID: Henny Rivas Date of : 1980 Chief Complaint Patient presents with Pharyngitis SUBJECTIVE: 43 y.o. female presents with concerns for possible recurrent strep. Finished antibiotics for strep about 5 days ago. Yesterday developed sore throat headache nasal congestion and some ear pressure. Daughter has similar symptoms. Was concerned about recurrent strep therefore presented today for evaluation. No other concerns or complaints. Past Medical, Surgical and Social History: Reviewed on EMR. Medications: Reviewed on EMR. Allergies: No Known Allergies ROS: As noted in HPI, all other review of systems are negative. PHYSICAL EXAM: Vitals: Patient Vitals for the past 24 hrs: BP Temp Temp src Pulse Resp SpO2 07/17/24 0959 115/80 36.6 ??C (97.8 ??F) Oral 75 16 100 % General: Alert, No obvious discomfort, well kept HENT: Normal voice, No tonsillar enlargement, No lymphadenopathy, and Postnasal drainage, TMs bilaterally within normal limits. Eyes: The pupils are equal, round, and reactive to light, Conjunctiva normal, No scleral icterus Neck: Normal range of motion, No menigismus CV: Normal Pulses Resp: Non-labored, No cough MS: Normal muscular tone, moves all extremities Skin: No rash or acute skin lesions noted Neuro: Speech is normal and fluent Psych: Awake. Alert. Normal affect. Appropriate interactions. Good eye contact UC Course: Strep test pending ASSESSMENT: Henny Rivas is a 43 y.o. female presents for evaluation of sore throat. Patient does not other significant URI symptoms. does not have a known exposure. Throat exam is consistent with pharyngitis.As strep test is pending antibiotics were not given at this time. No sign of CURING ROOM WORKER. They will be treated by culture nurse if results are positive. Appropriate use of crck-bno-rnjioxe medications, such as benzocaine spray, Cepacol drops, acetaminophen, and or ibuprofen for symptomatic discomfort were discussed. Return protocol discussed. she appears to be safe and appropriate for outpatient Diagnosis and Associated Orders ICD-10-CM 1. Pharyngitis, unspecified etiology J02.9 STREP GROUP A, Molecular Detection- Collect Now in current encounter 2. Nasal congestion R09.81 PLAN: New Prescriptions No medications on file Use Tylenol and/or ibuprofen as needed as directed for discomfort. You may use other bkly-ibg-emknqtj remedies as well. If they will tolerate warm fluids with honey and lemon this will also help. Your strep test is pending. The culture nurse will call you with positive results and send in a prescription if indicated. Do not allow your children to share cups or utensils. I do recommend that 48 hours after starting antibiotics if ordered you throw away a manual toothbrush and replaced with a new 1 if you have a electric toothbrush I recommend running in the sterilization cycle in the lure maker. documented in this encounter Nursing Notes * Greg Wolf RN - 07/17/2024 10:00 AM CDT Finished abx last for strep. C/o of headache, st and ear pain. Patient requests an excuse letter for work/school: No documented in this encounter Plan of Treatment Not on file documented as of this encounter Procedures Procedure Name Priority Date/Time Associated Diagnosis Comments STREP GROUP A, MOLECULAR DETECTION STAT 07/17/2024 9:47 AM CDT Pharyngitis, unspecified etiology documented in this encounter Results * STREP GROUP A, Molecular Detection-Collect Now in current encounter (07/17/2024 9:47 AM CDT) Group A Strep Not Detected Not Detected 025 11:07 AM CDT [facility] Comment:Methodology: Qualita tive real-time PCR assay Swab (Source Required) THROAT SWAB / Unknown Non-blood Collection / Unknown 07/17/2024 9:47 AM CDT 07/17/2024 10:41 AM CDT us Jim [facility]_1 Final Result [facility] [address] [place] [address], [facility] documented in this encounter Visit Diagnoses Diagnosis Pharyngitis, unspecified etiology Nasal congestion Other diseases of nasal cavity and sinuses documented in this encounter
--- NOTE | 2024-08-28 09:15 | CRLHL7_ITS ---
For Patients: As a result of the Century Cures Act, medical imaging exams and procedure reports are released immediately into your electronic medical record. You may view this report before your referring provider. If you have questions, please contact your health care provider. INDICATION: BILATERAL SCREENING MAMMOGRAM, ASYMPTOMATIC 43 Y/O FEMALE COMPARISON: 07/06/2023 TECHNIQUE: Digital mammogram in CC and MLO projections including computer-aided detection (CAD) and tomosynthesis. BREAST COMPOSITION: The breasts are heterogeneously dense, which may obscure small masses. FINDINGS: No suspicious findings. ASSESSMENT: BI-RADS 2 Benign RECOMMENDATION: Annual screening mammogram. A lay language report of this examination will be provided to the patient. Dictated by: Paul Locke MD @ 08/29/2024 11:52:00 (Electronically Signed)
--- OUTSIDE RECORDS SUMMARY | 2024-08-29 00:50 | XMS_ITS | Clinical Summary ---
Author Organization [facility] Address [address] [place] [address] Care Team Providers Care Ip Litigation Paralegal Name Role Phone Unavailable Primary Care Provider Unavailabl e Source Comments You are receiving this document as you are listed as the primary care provider,follow-up provider, or the patient has been referred to you for consultation.This is in compliance with the Medicare and[facility] Cent[facility] EHR Incentive Program,which states Providers who transition their patient to another setting of careor provider of care or refers their patient to another provider of care shouldprovide summary care record for each transition of care or referral. [employer] Allergies No known active allergies Medications gabapentin (NEURONTIN) 300 MG capsule Take 1 [...] TABS vaginal tablet Insert vaginally. 06/26/2023 Active LINZESS 72 MCG CAPS Take 1 Capsule (72 mcg) by mouth daily. 01/12/2024 Active Active Problems Problem Noted Date Diagnosed Date Bilateral sensorineural hearing loss 07/17/2024 Bilateral tinnitus 07/17/2024 Chronic rhinitis 07/17/2024 Laryngopharyngeal reflux 07/17/2024 Deviated nasal septum 07/17/2024 Vitamin D deficiency 07/17/2024 Hypertrophy of nasal turbinates 07/17/2024 Encounters Date Type Department Care Team Description 07/17/2024 10:00 AM CDT Office Visit [place] [address] [facility] [address] [place] [address] Jesus Manuel Hu, BELT MEASURER, GABI Pharyngitis, unspecified etiology; Nasal congestion 07/04/2024 8:20 AM CDT Office Visit [place] [facility] [address] [facility] [phone] [place] [phone] Carla Hudson PA-C Sore throat 07/04/2024 Results Follow-Up [facility] [address] [place] [address] [place] [phone] Val Quintanilla RN from Last 3 Months Social History Tobacco Use Types Packs/Day Years Used Date Smoking Tobacco: Never Tobacco Cessation:Counseling Given: Not Answered Comments No Sex and Gender Information Value [...] Services) 1997 Adult Preventive Visit 09/04/1999 HepB Vaccine (1) 2000 Cervical Cancer Screening Due 09/04/2003 2003 HPV Vaccine (2 - 3-dose series) 02/06/2008 01/09/2008 COVID-19 Vaccine ( season) 2023 04/02/2022, 02/26/2021, 06/27/2020, Additional history exists DTaP/Tdap/Td Vaccine (5 - Tdap) 07/23/2030 07/23/2020, 11/22/2017, 01/15/2014, Additional history exists Zoster/Shingles Vaccine (1 of 2) 09/04/2031 Influenza Vaccine Completed 02/18/2024, , 12/19/2021, Additional history exists HepA Vaccine Aged Out No longer eligi ble based on patient's age to complete this topic Hib Vaccine Aged Out No longer eligi ble based on patient's age to complete this topic IPV (Polio) Vaccine Aged Out No longe r eligible based on patient's age to complete this topic MCV4 Vaccine Aged Out No longer eligi ble based on patient's age to complete this topic Meningococcal B Vaccine Aged Out No l onger eligible based on patient's age to complete this topic Pneumococcal Vaccine Aged Out No long er eligible based on patient's age to complete this topic Procedures Procedure Name Priority Date/Time Associated Diagnosis Comments STREP GROUP A, MOLECULAR DETECTION STAT 07/17/2024 9:47 AM CDT Pharyngitis, unspecified etiology STREP GROUP A, MOLECULAR DETECTION STAT 07/04/2024 8:37 AM CDT Sore throat ANATOMICAL PATH LIQUID BASED Routine 2003 12:13 PM CDT from Last 3 Months or Most Recently Relevant to Health Maintenance Results * STREP GROUP A, Molecular Detection-Collect Now in current encounter (07/17/2024 9:47 AM CDT) Only the most recent of2 resultswithin the time period is included. Group A Strep Not Detected Not Detected 025 11:07 AM CDT [facility] Comment:Methodology: Qualita tive real-time PCR assay Swab (Source Required) THROAT SWAB / Unknown Non-blood Collection / Unknown 07/17/2024 9:47 AM CDT 07/17/2024 10:41 AM CDT Jim [facility]_1 Final Result [facility] [address] [place] [address], [facility] * Pap Smear (2003 12:13 PM CDT) Pathologist [facility] PAP Smear Liquid Based SEE TEXT No normal range HP CONVERSION Comment: Patient: HENNY CHANEY CERVICAL CYTOLOGY REPORT Pathology # [id number] Date Obtained: Date Received: CYTOLOGIC IMPRESSION: Negative for intraepithelial lesion or malignancy. ADDITIONAL DATA LMP: 08-26-03 CLINICAL HIST PREV NORM 6-03, NEG HX LIQUID BASED PAP CERVICAL SPECIMEN ADEQUACY: Satisfactory. ENDOCERVICAL CELLS: Present. Verified 09/15/03 by: SN (electronic signature) 2003 12:1 3 PM CDT Duarte Mckeon MD LAB_1 Final Result Performing Organization Address City/[facility]/ZIP Co de Phone Number HP CONVERSION from Last 3 Months or Most Recently Relevant to Health Maintenance Insurance [facility] SUREST
--- OUTSIDE RECORDS SUMMARY | 2024-08-29 00:51 | XMS_ITS | Data Portability ---
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 Plan of Treatment Reminders Order Date Submit Date Provider Last Modified By Organization Details Last Modified Time Details Appointments None recorded. Lab bacterial vaginosis + vaginitis panel, vaginal 2023 024 apetersen 35 [id number]_fiyexwm rtners_lilyda le, [address] [facility], [address] [place] [address], [address], 4 13:03:16 urinalysis, dipstick, auto 2023 024 apetersen 35 Or941_lzwirco rtners_lilyda le, [address] [facility], [address], [place], [address], 4 13:33:54 culture, urine 2023 024 [facility], [address] [facility], [address], [place], [address], 4 07:07:53 urinalysis, dipstick, auto 2023 024 apetersen 35 [id number]_wzltrjf rtners_lilyda le, [address] [facility], [address], [place], [address], 4 13:55:52 bacterial vaginosis + vaginitis panel, vaginal 2023 024 apetersen 35 Wh664_uurkanm ledy_ziona le, [address] [facility], [address], [place], [address], 4 17:01:44 urinalysis, dipstick, auto 2022 023 apetersen 35 [id number]_plwjnlp ledy_ziona le, [address] [facility], [address], [place], [address], 3 13:45:18 bacterial vaginosis + vaginitis panel, vaginal 2022 023 FARGO Zc635_quvwsmp ledy_shaliniyda le, [address] [facility], [address], [place], [address], 3 14:41:00 lipid panel, serum 2022 023 [facility], [address] [place] [address], [address], [place], [address], 3 15:49:12 bacterial vaginosis + vaginitis panel, vaginal 2022 023 apetersen 35 [id number]_gdpqutn ledy_shaliniyda le, [address] [facility], [address], [place], [address], 3 13:01:20 hemoglobin A1c, QN, blood 2022 023 [facility], [address] [facility], [address], [place], [address], 3 15:49:11 CBC 2022 023 [facility], [address] [facility], [address], [place], [address], 3 15:49:09 Pap test, slide(s), cervical 2022 023 [facility], [address] [facility] [address], [address], [place], [address], 3 16:08:46 Referral None recorded. Procedures None recorded. Surgeries None recorded. Imaging None recorded. Medication Orders metronidazo le 500 mg tablet 2023 024 [facility], [address] [place] [address], [place], [address], 4 13:09:09 terconazole 0.8 % vaginal cream 2023 024 [facility], [address] [place] [address], [place], [address], 4 13:09:08 Junel FE 03/27 (28) 1 mg-20 mcg (21)/75 mg (7) tablet 2023 024 [facility], [address] [place] [address], [place], [address], 4 13:09:09 Diflucan 150 mg tablet 2023 024 [facility], [address] [place] [address], [place], [address], 4 10:05:15 metronidazo le 0.75 % (37.5 mg/5 gram) vaginal gel 2023 024 [facility], [address] [place] [address], [place], [address], 4 17:14:55 clindamycin HCl 300 mg capsule 2022 023 [facility], [address] [facility], [place], [address], 4 13:07:00 Metrogel Vaginal 0.75 % (37.5 mg/5 gram) 2022 023 [facility], [address] [facility] [place], [address], 4 13:07:10 spironolact one 50 mg tablet 2022 023 [facility], [address] [facility], [place], [address], 3 10:56:44 Metrogel Vaginal 0.75 % (37.5 mg/5 gram) 2022 023 [facility], [address] [facility], [place], [address], 4 13:10:07 Patient TargetsNo targets recorded. Patient Instructions Encounter Date Encounter Id Patient Instructions Last Modified By Organization Details Last Modified Time 02/01/2023 [id number] venous blood draw* [id number] Not available 02/01/2023 10:56:02 Reason for Referral None Reported. Results Created Date Observation Date Name Description Value Unit Range Abnormal Flag Note LastModifiedBy Organization Detail LastModifiedTime 02/02/2002/01/2023 CBC WITH PLATE LETS WBC count 8.4 10e3/ uL 4.0-11 .0 Not Available [address], [place], [address], 02/01/2023 15:49:09 02/02/20 23 02/01/2023 CBC WITH PLATE LETS RBC count 5.34 10e6/ uL 3.80-5 .20 high Not Available [address], [place], [address], 02/01/2023 15:49:09 02/02/20 23 02/01/2023 CBC WITH PLATE LETS hemoglobin 15.0 g/dL 11.7-1 5.7 Not Available [address], [place], [address], 02/01/2023 15:49:09 02/02/20 23 02/01/2023 CBC WITH PLATE LETS hematocrit 46.6 % 35.0-4 7.0 Not Available [address], [place], [address], 02/01/2023 15:49:09 02/02/20 23 02/01/2023 CBC WITH PLATE LETS MCV 87 fL 78-100 Not Available [address], [place], [address], 02/01/2023 15:49:09 02/02/20 23 02/01/2023 CBC WITH PLATE LETS MCH 28.1 pg 26.5-3 3.0 Not Available [address], [place], [address], 02/01/2023 15:49:09 02/02/20 23 02/01/2023 CBC WITH PLATE LETS MCHC 32.2 g/dL 31.5-3 6.5 Not Available [address], [place], [address], 02/01/2023 15:49:09 02/02/2002/01/2023 CBC WITH PLATE LETS RDW 13.8 % 10.0-1 5.0 Not Available [address], [place], [address], 02/01/2023 15:49:09 02/02/20 23 02/01/2023 CBC WITH PLATE LETS platelet count 330 10e3/ uL 150-45 0 Not Available [address], [place], [address], 02/01/2023 15:49:09 02/02/2002/01/2023 HEMOG LOBIN A1C hemoglobin A1C 5.2 % <5.7 Hetal l <5.7% Predi abete s 5.7-6 .4% Diabe bela 6.5% or highe r Note: Adopt ed from ADA conse nsus guide lines . Not Available [address], [place], [address], 02/01/2023 15:49:10 02/02/20 23 02/01/2023 LIPID PANEL cholesterol 198 mg/dL <200 Not Available [address], [place], [address], 02/01/2023 15:49:12 02/02/20 23 02/01/2023 LIPID PANEL triglyceride s 102 mg/dL <150 Not Available [address], [place], [address], 02/01/2023 15:49:12 02/02/20 23 02/01/2023 LIPID PANEL direct measure HDL 53 mg/dL >=50 Not Available [facility] [address] [facility] [address], [place], [address], 02/01/2023 15:49:12 02/02/20 23 02/01/2023 LIPID PANEL LDL cholesterol calculated 125 mg/dL <=100 high Not Available [facility] [address], [place], [address], 02/01/2023 15:49:12 02/02/20 23 02/01/2023 LIPID PANEL [...] or equal to 220 mg/dL Not Available [address], [place], [address], 02/01/2023 15:49:12 02/02/20 23 02/01/2023 GYNEC OLOGI C CYTOL OGY (PAP SMEAR ) gynecologic cytology SEE RESULT S BELOW SPECI MEN SOURC E [place] ing Cervi x 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 ADEQU ACY: Satis facto ry for evalu [...] this testi ng was compl eted at [facility] Not Available [address], [place], [address], 02/04/2023 16:08:46 02/02/20 23 02/01/2023 HPV HIGH RISK TYPES DNA CERVI REBEKAH other HR HPV Negati ve negati ve Not Available [address], [place], [address], 02/04/2023 16:08:59 02/02/20 23 02/01/2023 HPV HIGH RISK TYPES DNA CERVI REBEKAH HPV16 DNA Negati ve negati ve Not Available [address], [place], [address], 02/04/2023 16:08:59 02/02/20 23 02/01/2023 HPV HIGH RISK TYPES DNA CERVI REBEKAH HPV18 DNA Negati ve negati ve Not Available [address], [place], [address], 02/04/2023 16:08:59 02/02/20 23 02/01/2023 HPV HIGH RISK TYPES DNA CERVI REBEKAH final diagnosis See note below This patie nt's sampl e is negat kassie for HPV DNA. This test was devel oped and its perfo rmanc e andrea cteri stics deter mined by the [facility], [place] ular [...] wup is recom anuj d. Not Available [address], [place], [address], 02/04/2023 16:08:59 02/02/20 23 02/01/2023 bacte rial vagin osis + vagin itis panel , vagin al gardnerella positi ve negati ve abnormal Not Available [id number], [address], 02/01/2023 10:04:04 02/02/20 23 02/01/2023 bacte rial vagin osis + vagin itis panel , vagin al trichomonas negati ve negati ve normal Not Available [address], [address], 02/01/2023 10:04:04 02/02/20 23 02/01/2023 bacte rial vagin osis + vagin itis panel , vagin al avery negati ve negati ve normal Not Available [address], [address], 02/01/2023 10:04:04 02/13/20 23 02/12/2023 bacte rial vagin osis + vagin itis panel , vagin al gardnerella positi ve negati ve abnormal Not Available Np061_lumpkix rtnersrosanna [address], [place], [address], 02/12/2023 11:30:51 02/13/20 23 02/12/2023 bacte rial vagin osis + vagin itis panel , vagin al trichomonas negati ve negati ve normal Not Available [id number]_oeehtrl rtnersrosanna [address], [place], [address], 02/12/2023 11:30:51 02/13/20 23 02/12/2023 bacte rial vagin osis + vagin itis panel , vagin al avery negati ve negati ve normal Not Available Wq108_bfjgvav rtnersrosanna [address], [place], [address], 02/12/2023 11:30:51 02/13/20 23 02/12/2023 urina lysis , dipst ick, auto Unknown Analyte Clean Catch Not Available [id number]_lbflk pa rtnersrichard[address], [place], [address], 02/12/2023 11:30:42 02/13/20 23 02/12/2023 urina lysis , dipst ick, auto Unknown Analyte negati ve Not Available [id number]_cfgnu pa rtnersrosanna [address], [place], [address], 02/12/2023 11:30:42 02/13/20 23 02/12/2023 urina lysis , dipst ick, auto Unknown Analyte negati ve Not Available Ca021_elcxa pa rtners_lilyda [address], [place], [address], 02/12/2023 11:30:42 02/13/20 23 02/12/2023 urina lysis , dipst ick, auto Unknown Analyte negati ve Not Available Wr905_sxvgl pa rtnersrosanna [address], [place], [address], 02/12/2023 11:30:42 02/13/20 23 02/12/2023 urina lysis , dipst ick, auto Unknown Analyte 1.020 Not Available Cc003_ metropa rtmanuel [address], [place], [address], 02/12/2023 11:30:42 02/13/20 23 02/12/2023 urina lysis , dipst ick, auto Unknown Analyte negati ve Not Available Cg103_hhrno pa rtnersrosanna [address], [place], [address], 02/12/2023 11:30:42 02/13/20 23 02/12/2023 urina lysis , dipst ick, auto Unknown Analyte 7.5 Not Available Cc003_ metropa rtmanuel [address], [place], [address], 02/12/2023 11:30:42 02/13/20 23 02/12/2023 urina lysis , dipst ick, auto Unknown Analyte negati ve Not Available [id number]_cxngp pa rtnersrosanna [address], [place], [address], 02/12/2023 11:30:42 02/13/20 23 02/12/2023 urina lysis , dipst ick, auto Unknown Analyte negati ve Not Available Xy709_mcgit pa rtnersrosanna [address], [place], [address], 02/12/2023 11:30:42 02/13/20 23 02/12/2023 urina lysis , dipst ick, auto Unknown Analyte negati ve Not Available Ub468_tjxan pa rtnersrosanna [address], [place], [address], 02/12/2023 11:30:42 02/13/20 23 02/12/2023 urina lysis , dipst ick, auto Unknown Analyte dark yellow Not Available Aa604_qtsco pa rtnersrosanna [address], [place], [address], 02/12/2023 11:30:42 02/13/20 23 02/12/2023 urina lysis , dipst ick, auto Unknown Analyte slight ly cloudy Not Available Ek734_rrejk pa rtnersrichard[address], [place], [address], 02/12/2023 11:30:42 04/02/19 24 04/02/2023 bacte rial vagin osis + vagin itis panel , vagin al gardnerella positi ve negati ve abnormal Not Available Lk305_pvxihsc [facility], [place], [address], 04/01/2023 10:09:21 04/02/19 24 04/02/2023 bacte rial vagin osis + vagin itis panel , vagin al trichomonas negati ve negati ve normal Not Available Kg752_stzxhvq [facility], [place], [address], 04/01/2023 10:09:21 04/02/19 24 04/02/2023 bacte rial vagin osis + vagin itis panel , vagin al avery negati ve negati ve normal Not Available Gq198_pzoodyg rtmanuel [address], [place], [address], 04/01/2023 10:09:21 04/02/19 24 04/02/2023 urina lysis , dipst ick, auto Unknown Analyte Clean Catch Not Available Xj386_jyxxg pa rtnersMukuldelta [facility] medical cent[facility], [place], [address], 04/01/2023 10:09:28 04/02/19 24 04/02/2023 urina lysis , dipst ick, auto Unknown Analyte negati ve Not Available Cp723_zegcs pa rtcasadelta [facility], [place], [address], 04/01/2023 10:09:28 04/02/19 24 04/02/2023 urina lysis , dipst ick, auto Unknown Analyte negati ve Not Available Em150_iqbfv pa rtnersrichard[address], [place], [address], 04/01/2023 10:09:28 04/02/19 24 04/02/2023 urina lysis , dipst ick, auto Unknown Analyte negati ve Not Available Iv976_zkpem pa rtnersMukuldelta community medical [facility], [place], [address], 04/01/2023 10:09:28 04/02/19 24 04/02/2023 urina lysis , dipst ick, auto Unknown Analyte 1.010 Not Available CcJimmy valderramaa rtarnoldoc[facility], [place], [address], 04/01/2023 10:09:28 04/02/19 24 04/02/2023 urina lysis , dipst ick, auto Unknown Analyte trace Not Available CcPresley_ ropa rtmanuel [address], [place], [address], 04/01/2023 10:09:28 04/02/19 24 04/02/2023 urina lysis , dipst ick, auto Unknown Analyte 6.5 Not Available CcPresley_ janniea rtmanuel [address], [place], [address], 04/01/2023 10:09:28 04/02/19 24 04/02/2023 urina lysis , dipst ick, auto Unknown Analyte negati ve Not Available He024_cshwd pa rtmanuel [address], [place], [address], 04/01/2023 10:09:28 04/02/19 24 04/02/2023 urina lysis , dipst ick, auto Unknown Analyte 0.2 Not Available CcPresley_ ropa rtmanuel [address], [place], [address], 04/01/2023 10:09:28 04/02/19 24 04/02/2023 urina lysis , dipst ick, auto Unknown Analyte negati ve Not Available Hs018_ktcwa pa rtnersrosanna [address], [place], [address], 04/01/2023 10:09:28 04/02/19 24 04/02/2023 urina lysis , dipst ick, auto Unknown Analyte negati ve Not Available Re678_vfptr pa rtnersrosanna [address], [place], [address], 04/01/2023 10:09:28 04/02/19 24 04/02/2023 urina lysis , dipst ick, auto Unknown Analyte yellow Not Available Cc003_ metropa rtmanuel [address], [place], [address], 04/01/2023 10:09:28 04/02/19 24 04/02/2023 urina lysis , dipst ick, auto Unknown Analyte slight ly cloudy Not Available Rm893_tbnlw pa rtnersrosanna [address], [place], [address], 04/01/2023 10:09:28 04/08/19 24 04/08/2023 URINE CULTU RE urine culture SEE RESULT S BELOW SPECI MEN SOURC E Urine Urine , Midst ream CULTU RE RESUL TS <10,0 00 CFU/m L Uroge nital alexis REPOR T STATU S FINAL 04/10 Not Available [address], [place], [address], 04/10/2023 07:07:53 04/08/19 24 04/08/2023 urina lysis , dipst ick, auto Unknown Analyte Clean Catch Not Available [id number]_imfpb pa rtnersrosanna [address], [place], [address], 04/08/2023 12:58:00 04/08/19 24 04/08/2023 urina lysis , dipst ick, auto Unknown Analyte negati ve Not Available Np601_awggb pa rtnersrosanna [address] [place], [place], [address], 04/08/2023 12:58:00 04/08/19 24 04/08/2023 urina lysis , dipst ick, auto Unknown Analyte negati ve Not Available Oa346_lgaqa pa rtners_lilyd[address], [place], [address], 04/08/2023 12:58:00 04/08/19 24 04/08/2023 urina lysis , dipst ick, auto Unknown Analyte negati ve Not Available Ee722_cdvev pa rtners[address], [place], [address], 04/08/2023 12:58:00 04/08/19 24 04/08/2023 urina lysis , dipst ick, auto Unknown Analyte 1.010 Not Available CcPresley_ janniea destineedelta [facility], [place], [address], 04/08/2023 12:58:00 04/08/19 24 04/08/2023 urina lysis , dipst ick, auto Unknown Analyte negati ve Not Available Iq714_dvyak pa rtnersMukul[address], [place], [address], 04/08/2023 12:58:00 04/08/19 24 04/08/2023 urina lysis , dipst ick, auto Unknown Analyte 7.0 Not Available Presley_ divyaa ledy[address], [place], [address], 04/08/2023 12:58:00 04/08/19 24 04/08/2023 urina lysis , dipst ick, auto Unknown Analyte negati ve Not Available Rj861_sqrpp pa [facility], [place], [address], 04/08/2023 12:58:00 04/08/19 24 04/08/2023 urina lysis , dipst ick, auto Unknown Analyte 0.2 Not Available CcPresley_ rodolfo gibbons [address], [place], [address], 04/08/2023 12:58:00 04/08/19 24 04/08/2023 urina lysis , dipst ick, auto Unknown Analyte negati ve Not Available Tabitha felipedelta [facility] medical centerdinesh [address], [place], [address], 04/08/2023 12:58:00 04/08/19 24 04/08/2023 urina lysis , dipst ick, auto Unknown Analyte modera te Not Available Tabitha gibbons [address], [place], [address], 04/08/2023 12:58:00 04/08/19 24 04/08/2023 urina lysis , dipst ick, auto Unknown Analyte yellow Not Available [facility], [place], [address], 04/08/2023 12:58:00 04/08/19 24 04/08/2023 urina lysis , dipst ick, auto Unknown Analyte slight ly cloudy Not Available Tabitha gibbons [address], [place], [address], 04/08/2023 12:58:00 05/12/19 24 05/12/2023 bacte rial vagin osis + vagin itis panel , vagin al gardnerella positi ve negati ve abnormal Not Available Puja gibbons [address], [place], [address], 05/12/2023 10:11:47 05/12/19 24 05/12/2023 bacte rial vagin osis + vagin itis panel , vagin al trichomonas negati ve negati ve normal Not Available [id number]_fxqxwqy rtners_ziona le [address] [facility] [address], [place], [address], 05/12/2023 10:11:47 05/12/19 24 05/12/2023 bacte rial vagin osis + vagin itis panel , vagin al avery negati ve negati ve normal Not Available Ls190_xxdlrzj rtners_[facility] le [address] [facility] [address], [place], [address], 05/12/2023 10:11:47 07/06/19 24 07/06/2023 MAMMO , scree see, bilat eral No observ ation record ed. [facility] [place] [address] [address] [facility] [address], [place], [address], 07/08/2023 19:23:00 Result Notes None recorded. Problems Name Problem SNOMED Code Status Onset Date Resolution Date Notes Provider Name and Address Organization Details Recorded Time Past history of section 831881010 Active 2020 Blake cunningham [place] - [employer] 1 17:15:34 Multigravida of advanced maternal age 204081084 Active 2020 Blake cunningham [place] [employer] 1 17:15:41 Vitamin D deficiency 90044078 Active Not Available [facility] 0 05:10:31 Problem Notes None recorded. Procedures Surgical History Date Name Laterality Status Provider Name and Address Organization Details Recorded Time 4 Date of Last Mammogram completed Harriet Nieto [place] - [employer] 07/07/2023 13:33:35 2 Date of Last Pap Smear completed Raegan Song (TERMED) [place] [employer] 01/26/2023 12:30:03 8 section completed Not Available [facility] 10/12/2019 05:09:17 Imaging Results None recorded. 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 4 13:02:56 Date Recorded Body height Body mass index (BMI) Body weight Provider Name and Address Organization Details Last Updated DateTime 05/12/2023 167.64 cm 33.6 kg/m2 72370.21 g Raegan Song (TERMED) [facility] [employer] SUPER[employer]OR 05/12/2023 10:03:36 Date Recorded Body height Body mass index (BMI) Body weight Heart rate Systolic blood pressure Diastolic blood pressure Provider Name and Address Organization Details Last Updated DateTime 3 167.64 cm 34.9 kg/m2 33642.6 7 g 64 /min 118 mm[Hg] 82 mm[Hg] Raegan Song (TERMED) [facility] [employer] SUPERVIS[employer] 3 09:58:03 Date Recorded Body height Body mass index (BMI) Body weight Heart rate Systolic blood pressure Diastolic blood pressure Provider Name and Address Organization Details Last Updated DateTime 3 167.64 cm 35.1 kg/m2 75604.7 g 63 /min 114 mm[Hg] 75 mm[Hg] Raegan Song (TERMED) [facility] [employer] SUPERVISOR 3 13:26:28 Social History Question Answer Notes LastModified by Organizat ion Details LastModified Time Tobacco Smoking Status Never Smoker Tobacco *Status: Never Not Available [facility] 10/16/2019 11:59:10 Do You Have An Advance Directive? No Does Not Have A Health Directive Information not available 10/16/2019 Is Blood Transfusion Acceptable In An Emergency? Yes [email or web address] Information not available 01/26/2022 What Is Your Level Of Caffeine Consumption? None Information not available 02/01/2023 What Type Of Diet Are You Following? GLUTENFREE No Sugar And Dairy Information not available 02/01/2023 What Is The Highest Grade Or Level Of School You Have Completed Or The Highest Degree You Have Received? [id number] [email or web address] Information not available 01/26/2022 How Many Times Per Week Do You Exercise? Less Than 1 Time Per Week Information not available 02/01/2023 History Of Domestic Violence No Denies Any History Of Domestic Violence Information not available 10/16/2019 Spouse/Partners Name Sekou Rivas Information not available 02/01/2023 Ethnic Background White Or [email or web address] Information not available 01/26/2022 Are You Passively Exposed To Smoke? No Information not available 02/01/2023 Performs Monthly Self-breast Exam? No Does Not Perform Monthly Breast Exams Information not available 01/21/2021 What Is Your Relationship Status? [email or web address] Information not available 01/26/2022 Are You Sexually Active? Yes Currently Sexually Active Information not available 01/21/2021 Has Tobacco Cessation Counseling Been Provided? Yes Information not available 02/01/2023 On What Date Was Tobacco Cessation Counseling Provided? 02/01/2023 Information not available 02/01/2023 Are You Currently In School? No Information not available 01/26/2022 Sex: Unknown Functional Status Question Answer Note LastModified by Organizat ion Details LastModified Time How many times per week do you consume alcohol? Less than 1 time per week Information not available 02/01/2023 Do you use any illicit or recreational drugs? No Information not available 02/01/2023 What is your level of alcohol consumption? Occasional socially Information not available 02/01/2023 Are you currently employed? 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 None Information [...] Organization Details Recorded Time Tdap 07/23/2020 completed Adyen Sanders null, [place] - [employer] 07/23/2020 15:22:22 Tdap 11/22/2017 completed Not Available [facility] 10/12/2019 05:09:39 Tdap 01/15/2014 completed Not Available [facility] [facility] 10/12/2019 05:09:39 Influenza, split virus, quadrivalent, PF 11/22/2017 completed [employer] (TERMED) [place], [place] - [employer] 01/21/2021 11:39:02 Past Encounters Encounter ID Performer Location Encounter Start Date Encounter Closed Date Diagnosis/Indication Diagnosis SNOMED-CT Code Diagnosis ICD10 Code Diagnosis Note [id number] TEENA LO MD [id number] [address] [address] 2 01/09/2020 14:26:08 01/09/2020 17:28:44 Routine care 404536739 Z34.91 [id number] MAURISIO FRAIRE PA-C [id number] [address] [address] 2 01/09/2020 14:47:07 01/09/2020 16:01:59 Gestation period, 8 weeks 55185025 Z3A.08 Multigravi da of advanced maternal age 861209858 O09.529 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 358489464 Z87.42 Prometrium QHS until 10-12wks Past pregn clara history of section 364718065 Z98.890 intoleranc e to labor RhD negative 222956793 Z 01.83 Needs Rhogam at 28wks Morbid obesity 188186032 E66.01 BMI=40 [id number] TEENA LO MD [id number] [address] [address] 2 02/06/2020 12:12:48 02/07/2020 09:27:44 43168500 Z33.1 Sinusitis 29457159 J32.9 has had bf adn feels like starting so z ronen and if worse call screening 2437 38622 Z36.9 had standard last pg so inatal done [id number] MD JESSIE TAYLOR_MET [address] [address] 2 03/05/2020 10:05:01 03/05/2020 10:44:40 [id number] MD JESSIE TAYLOR_MET [address] [address] 2 03/19/2020 10:21:47 03/19/2020 11:38:31 Irregular heart beat 548418778 R00.8 ER AND HAS EVENT MONITER AND DONE ON AND CARDIAC ECHO ORDERED AND REC FITBIT FOR PULSE [id number] MD SEAN TAYLOR001_MET [address] [address] 2 03/20/2020 15:31:39 03/20/2020 16:28:51 Mass of left breast 7016022385 1170052 N63.20 US UPPER AND OUTER AREA LEFT BREAST Irregular heart beat 361 393314 R00.8 ER AND HAS EVENT MONITER AND DONE ON AND CARDIAC ECHO ORDERED AND REC FITBIT FOR PULSE--ER AGAIN SO CARDS APPT FRI [id number] MD SEAN TAYLOR001_MET [address] [address] 2 04/02/2020 10:06:42 04/04/2020 10:00:40 [id number] MD BERTHA TAYLORMET [address] [address] 2 04/02/2020 09:04:36 04/02/2020 09:52:32 screening 271307960 Z36.9 had standard last pg so inatal done [id number] MD SEAN TAYLOR001_MET RO_WOODBU RY [address] [employer],[facility] TE [address] [place] [address] 1 05/02/2020 09:04:54 05/02/2020 14:07:22 [id number] TEENA LO MD [id number] RO_WOODBU RY [facility] TE [address] [place] [address] 1 05/16/2020 10:39:26 05/21/2020 14:15:54 [id number] TEENA LO MD [id number] RO_WOODBU RY [address] [place], [place] [address] [facility] TE [address] [place] [address]267 1 05/16/2020 10:39:28 05/16/2020 11:19:29 Low lying placenta 009711668 O44.42 [id number] SHERON YANG [id number] RO_WOODBU RY [address] [place] [address],[address] [address] 1 05/30/2020 10:02:15 05/30/2020 12:07:40 screening 874270996 Z36.89 RhD negative 279627405 Z 01.83 Venereal d isease screening 728730979 Z11.3 High risk care 137361488 O09.93 Gestation period, 28 weeks 67166751 Z3A.28 Multigravi da of advanced maternal age 387588052 O09.529 Low lying placenta 31463 2007 O44.43 [id number] MAURISIO FRAIRE PA-C [id number]_VUR RO_MAPLEW OOD [address] [place] [address]415 3 05/27/2020 14:20:27 05/27/2020 14:37:11 [id number] TEENA LO MD [id number] RO_WOODBU RY [address] [place], [place] [address] [facility],[address] [address] 1 05/30/2020 10:02:15 05/30/2020 10:34:14 Low lying placenta 606397484 O44.42 [id number] Teena Lo MD BN022_JLN RAFFAELENER S_WOODBUR Y [address] [place], [place] [address] [facility] TE [address] [place] [address]860 1 06/13/2020 09:01:05 06/13/2020 13:45:03 [id number] Teena Lo MD [id number]_NBA DIVYAARTNER BRYNN Y [address] [place], [place] [address]ROHAN [address] [address] 1 06/26/2020 13:19:07 06/26/2020 17:42:02 Morbid obesity 232962080 E66.01 [id number] MD SEAN Saeed003_MET DIVYAARTNER SJESSICA Y [address] [place], [place] [address]ROHAN [address] [address] 1 06/26/2020 13:18:50 06/26/2020 13:57:29 Low lying placenta 709383289 O44.43 Z3A.32 risk of accreta [id number] SHERON YANG WN582_RUS DIVYAARTNER SJESSICA Y [address] [place] [address]46-661 1 07/09/2020 13:56:43 07/09/2020 14:39:17 High risk 96290375 O09.93 Gestation period, 34 weeks 75075993 Z3A.34 Multigravi da of advanced maternal age 291820820 O09.993 [id number] MD SEAN Saeed003_MET CRISTINA SJESSICA Y [address] [place] [address]89-781 1 07/23/2020 13:07:51 07/24/2020 11:29:55 [id number] Z33.1 Gestation period, 36 weeks 58790595 Z3A.36 Administra tion of diphtheria, pertussis, and tetanus vaccine 437365147 Z23 [id number] MD SEAN Saeed003_MET DIVYAARTREENA SJESSICA Y [address] [place] [address]-754 1 07/23/2020 13:07:32 07/23/2020 13:48:23 Multigravida of advanced maternal age 646988428 O09.529 Z3A.36 BPP w/ EFW. AMA and history of low lying placenta that has resolved per [facility] [id number] MD BETTY Saeed_MET EVANS SMukulWOODLOI Y Michael REEDER,SIMONE DANIELS [address] [place] [address]-161 1 08/08/2020 09:04:02 08/08/2020 16:08:00 46461637 Z33.1 [id number] Robbin Kenny MD YD473_PSF CRISTINA SARTEMLOI Y [address] [place], [place] [address]ROHAN REEDER,SIMONE JEREMIAH [address] [place] [address]791 1 07/30/2020 10:12:03 07/30/2020 10:35:49 Multigravida of advanced maternal age 333505971 O09.523 Z3A.37 FL measuring <10% [id number] SHERON YANG HR017_NIJ DIVYAJOHNY SWAIN Y [facility] REEDER,SIMONEKemar DANIELS [address] [place] [address]-263 1 07/30/2020 10:11:58 07/30/2020 12:16:40 High risk 53858380 O09.93 Multigravi da of advanced maternal age 892023232 O09.523 Past pregn clara history of section 248708116 Z98.890 Repeat CS with TL scheduled on 08/13/20 at [place] Gestation period, 37 weeks 52450821 Z3A.37 [id number] Teena Lo MD KP589_VIG CRISTINA IRENELOI Y [address] [place], [place] [address]HA REEDER,[address] [address] 1 08/08/2020 09:03:42 08/08/2020 09:36:46 Multigravida of advanced maternal age 542340657 O09.523 Z3A.38 [id number] Teena Lo MD NV206_UXC CRISTINA SARTEMLOI Y [address] [place], [place] [address]ROHAN REEDER,[address] [address] 1 08/22/2020 08:45:32 08/26/2020 10:26:41 Acute sinusitis 95393982 J01.90 IF NOT BETTER WITH CLARITIN D DO ZPAK Postoperative visit 1836 55920 Z09 SOME PAIN AT NIGHT SO GIVEN 6 MORE OXY AND CAN DUT IN HALF AND TYLENOL AND MOTRIN REV Dysuria 11232976 R30.9 ?LOW GRADE INF SO UC DONE [id number] Teena Lo MD QF258_XKK CRISTINA S_WOODBUR Y [address],[facility] [address] [place] [address] 09/24/2020 11:48:37 09/24/2020 16:50:13 Postoperative care 070151774 Z48.89 INCISION GOOD AND ACTIVITY REV state, 6 weeks 54891293 Z39.2 HAD TUBAL AND SWAIN IRREG BF? SO WHEN DONE BF IF NO MENSES 6-8 WKS RTC AND ANNUAL NOV Morbid obesity 512922247 E66.01 [id number] Teena Lo MD TT326_RFF CRISTINA S_WOODBUR Y [address] [facility] [employer],[facility] [address] [place] [address] 10/02/2020 15:42:06 10/04/2020 16:43:50 Vaginal lesion 778727921 N94.89 Abscess of Bartholin's gland 84443438 N75.1 small but tender on left so keflex 500 tid [id number] Teena Lo MD KY035_YSN CRISTINA S_WOODBUR Y [facility] [employer]esis,[facility] [address] [place] [address] 10/15/2020 15:30:11 10/16/2020 14:25:22 Increased frequency of urination 560164391 R35.0 NO BURNING BUT GREQ SO WILL DO UC Cyst of le ft Bartholin's gland duct 8348439155 0711869 N75.0 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 [...] RECORDS AND RX AND EXAM AND OPTIONS [id number] MAURISIO FRAIRE PA-C JY329_YSW CRISTINA S_SHALINIYDAL E [address] [facility],S [address] [place] [address] 1 01/21/2021 11:28:35 01/21/2021 14:55:47 Anemia screening 395497479 Z13.0 Hyperlipid emia screening 551633292 Z13.220 Diabetes m ellitus screening 247521861 Z13.1 Thyroid di sorder screening 300471844 Z13.29 Gynecologi c examination 03334657 Z01.419 Screening for malignant neoplasm of cervix 784716346 Z12.4 [id number] DALE TY003_MET DIVYAARTNER S_LILYDAL E [address] [place] [address]089 1 01/26/2022 09:45:51 01/26/2022 13:59:59 Gynecologic examination 75817588 Z01.419 Screening for malignant neoplasm of cervix 888506750 Z12.4 Anemia screening 0843191 07 Z13.0 Diabetes m ellitus screening 193913972 Z13.1 Hyperlipid emia screening 864430231 Z13.220 Obesity 018029120 E66.9 [id number] DALE TY003_MET DIVYAARTNER S_LILYDAL E [address] [place] [address]301 1 02/09/2022 09:09:09 02/09/2022 12:13:47 Urgent desire to urinate 71174789 R39.15 [id number] DALE TY003_MET DIVYAARTNER S_LILYDAL E [address] [place] [address]896-889 1 06/29/2022 12:18:15 06/29/2022 14:27:42 Pain of left breast 5374219557 N64.4 [id number] DALE TY003_MET DIVYAARTNER S_LILYDAL E [address] [place] [address]1591-492 1 08/21/2022 11:49:34 08/21/2022 16:12:26 Urinary symptoms 735439658 R39.9 [id number] DALE TY003_MET DIVYAARTNER S_LILYDAL E [address] [place] [address], [place] [address] 1 12/31/2022 12:37:07 01/01/2023 09:13:14 Vaginitis 91009422 N76.0 Urinary symptoms 4409031 08 R39.9 [id number] DALE TY003_MET ROPARTNER S_LILYDAL E [address] [place] [address] [place] [address] 1 02/01/2023 09:42:59 02/01/2023 13:58:01 Screening for malignant neoplasm of cervix 622600594 Z12.4 Diabetes m ellitus screening 840944830 Z13.1 Hyperlipid emia screening 348252797 Z13.220 Gynecologi c examination 69750991 Z01.419 Anemia screening 9874639 07 Z13.0 Vaginal irritation 92846 6004 N89.8 Obesity 222195493 E66.9 BMI=34.9 Female hirsutism 2690578 9 L68.0 [id number] DALE TY003_MET DIVYAARTNER S_LILYDAL E [address] [place] [address] [place] [address] 1 02/12/2023 13:16:17 02/12/2023 15:10:47 Vaginitis 06444532 N76.0 [id number] DALE TY003_MET DIVYAARTNER S_LILYDAL E [address] [place] [address] [place] [address] 1 04/02/2023 12:55:29 04/05/2023 13:42:55 Vaginitis 94120573 N76.0 Urinary symptoms 1976915 08 R39.9 currently on her period and on abx for UTI [id number] DALE TY003_MET ROPARTNER S_LILYDAL E [address] [place] [address] [place] [address] 1 04/08/2023 12:44:47 04/08/2023 15:33:25 Urinary symptoms 587838402 R39.9 [id number] DALE TY003_MET ROPARTNER S_LILYDAL E [address] [place] [address], [address] [place] [address] 05/12/2023 09:59:11 05/12/2023 14:00:16 Vaginitis 76034681 N76.0 Initial pr escription of oral contraception 372947493 Z30.011 Health Concerns Section Related Observation LastModified by Organization Detai ls LastModified Time None Recorded Concern Status LastModified by Organization Details LastModified Time None Recorded Advance Directives Directive N: Does Not have a Health Di rective Payers Insurance Date Sequence Insurance Name Policy Number Policy Silva Covered Member ID Silva Member ID Guarantor Name 01/19/2020 1 *SELF PAY* Brenda Montemayor Rob 01/19/2020 *SELF PAY* Brenda Montemayor Rob 01/19/2020 *SELF PAY* Brenda cruza Sim Rob 06/25/2020 1 [facility] [employer] SERVICES - [facility] ([facility]) [id number] Shirley Rivas [id number] Henny Rivas Notes Date Note Type Note [...] a vaginal infection today. MAURISIO FRAIRE PA-C [address] [facility],[address], [place], [address], [facility] - [employer] 02/01/2023 13:11:28 02/12/2023 text/html Vaginal/ Vulvar Problem [...] dysuria, frequency, urgency, odor. MAURISIO FRAIRE PA-C [address] [facility] [address], [place], [address], [facility] [employer]PER[employer] 02/12/2023 15:04:54 04/02/2023 text/html Vaginal/ Vulvar Problem [...] ending her period today. MAURISIO FRAIRE PA-C [address] [facility],[address], [place], [address], [facility] [employer] SUPER[employer] 04/02/2023 17:15:44 04/08/2023 text/html Vaginal/ Vulvar Problem [...] bladder infection has resolved. MAURISIO FRAIRE PA-C [address] [facility],[address], [place], [address], [place] - [employer] 04/08/2023 15:08:47 05/12/2023 text/html Vaginal/ Vulvar Problem [...] Tubal Ligation for control. MAURISIO FRAIRE PA-C [address] [facility],[address], [place], [address], [place] - [employer] 05/12/2023 13:08:44 OBGyn Episode Ob Episode Information Episode Created Date Number of Fetuses Patient Bloodtype Patient rh Status Prepregnancy Weight lbs Domestic Partner Domestic Partner Phone Father Name Key Worker Status 01/09/20 20 1 O Negative 245 Brighto n CLOSED Fetus Data First Name Last Name Admitted to NICU Weight (g) Sex Living Outcome Pediatric Complications Fetus ID Race Codes Race Delivery Type 3231.84 3 M true Full Term 20022 René Calculation Initial René Date Initial Exam [...] Gestation 0 jlinkert 01/09/2020 08/21/19 21 0 Pre- Flowsheet Flowsheet Date 01/09/2020 Pa Score Blood [...] Weight in lbs Pre/Post Dialysis Refused Weight 245.817586733109 BP Diastolic BP Location Tested BP Systolic [...] Weight in lbs Pre/Post Dialysis Refused Weight 243.366465741222 BP Diastolic BP Location Tested BP Systolic [...] Weight in lbs Pre/Post Dialysis Refused Weight 245.453391531547 BP Diastolic BP Location Tested BP Systolic [...] Weight in lbs Pre/Post Dialysis Refused Weight 248.990839979021 BP Diastolic BP Location Tested BP Systolic [...] Weight in lbs Pre/Post Dialysis Refused Weight 248.940128317082 BP Diastolic BP Location Tested BP Systolic BP Type 74 104 Fetus Heart Rate Present A Present Fetus Movement Comments INER AGAIN LAST LOU Pina ANDAPPT WITH CARDS ON Wed ST [...] Weight in lbs Pre/Post Dialysis Refused Weight 249.494467624791 BP Diastolic BP Location Tested BP Systolic [...] Weight in lbs Pre/Post Dialysis Refused Weight 252.591013696556 BP Diastolic BP Location Tested BP Systolic BP Type 120 Fetus Heart Rate Present A Present Fetus Movement A Yes Comments REV MPP CONSULT AND US TODAY ?ACCRETA SUGGESTION ON US TODAY AND WILL DO ANOTHER US WITH MPP--IF CONCERN OVER ACCRETA THAN WANTS TO DEL AT [place] TO AVOID RIOTS IN [place] AND CAN [...] upper quadrant pain and was seen at [facility] ED and everything was normal. Her BP was 130's/80's so they advised her to follow up in clinic for BP check. She has an appt with [facility] on 06/06/20 for repeat ultrasound. RTC [...] Weight in lbs Pre/Post Dialysis Refused Weight 253.530129296350 BP Diastolic BP Location Tested BP Systolic BP Type 70 136 64 118 Fetus Heart Rate Present A 144 Fetus Movement A Yes Comments Feeling well. U/S today show s placenta is 1.0 cm from os. EIF continues to be present. She has a follow up with [facility] on 06/06. Will continue restrictions. Baby [...] Weight in lbs Pre/Post Dialysis Refused Weight 257.135073246888 BP Diastolic BP Location Tested BP Systolic BP Type 60 102 Fetus Heart Rate Present A Present Fetus Movement A Yes Comments REV DEL ADN PER [facility] IF ACCRE TTA-DEL 34 WKS LOWRY OR [place]--IF LOW LYING 36 WKS--US GROWTH/BPP 2 WKS [...] Weight in lbs Pre/Post Dialysis Refused Weight 261.14646085498 BP Diastolic BP Location Tested BP Systolic BP Type 78 116 Fetus Heart Rate Present A Present Fetus Movement A Yes Comments REV US AND CSECT AND NO NCIOLE EL AT 36 WKS Flowsheet Date 07/09/2020 Pa Score Blood Edema Fundus Height Fundus Units Glucose Ketones Leukocytes Nitrite Labor Signs Protein Cervic Dilation Cervic Effacement Cervic Station neg 34 none negative none Negative none neg Type Weight in lbs Pre/Post Dialysis Refused Weight 263.288611652897 BP Diastolic BP Location Tested BP Systolic [...] Weight in lbs Pre/Post Dialysis Refused Weight 265.012580805407 BP Diastolic BP Location Tested BP Systolic [...] Weight in lbs Pre/Post Dialysis Refused Weight 261.88736777352 BP Diastolic BP Location Tested BP Systolic BP Type 76 112 Fetus Heart Rate Present A Present Fetus Movement A Yes Comments Feeling well. No concerns to day. Baby is active. BPP: 8/8. All questions answered. RTC in 1 week. [...] Weight in lbs Pre/Post Dialysis Refused Weight 269.129025189524 BP Diastolic BP Location Tested BP Systolic [...] Weight in lbs Pre/Post Dialysis Refused Weight 264.611796833212 BP Diastolic BP Location Tested BP Systolic [...] By 05/31/2020 Signs and symptoms of labor rverjennifer 05/31/2020 Abnormal lab values rverjennifer 05/31/2020 Selecting a care provider rverjennifer 05/31/[address] anning/tubal sterilization rverby Third Trimester Discussed Date Discussion Item Discussion Note Discuss ed By 05/31/2020 Anesthesia plans rvtasha 05/31/2020 movement monitoring rv tasha 05/31/2020 Labor signs rver05/31/2020 Signs and symptoms of preeclampsia rverby 05/31/2020 Postterm counseling rver05/31/2020 Circumcision rverby 05/31/2020 rver05/31/2020 depression rver05/31/2020 education (n ewborn screening, jaundice, SIDS/safe sleeping position, car seat) rverby 05/31/2020 Family medical leave or disability forms [facility] Delivery Information Delivery Date Delivery Type Labor Anesthesia Weeks Gestation Incision Type Labor Labor Length Hrs Delivered By Post Complications Tubal Sterilization Discharge Date Comments Regional-Sp inal 39 Teena Lo MD 08/13 Discharge Information Feeding Method Contraceptive Method Maternal HG B and HCT Levels
--- OUTSIDE RECORDS SUMMARY | 2024-08-29 00:52 | XMS_ITS | Clinical Summary ---
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 Name Role Phone Tone Mcqueen Unavailable Lakhwinder Lau MD Primary Care Provider [phone] Allergies No known active allergies Medications multivitamin [...] EVERY DAY AT BEDTIME NEEDED 4 Active skrea-8f-mkk-ep a-fish oil-D3 (Fish Oil-Vit D3) 360 mg-1,200 [...] wi thout hemorrhage, third trimester 08/16/2020 Immunizations Immunization Administration Dates Next Due HPV 9 (Gardasil [...] AM CDT Legal Sex Female 8:27 AM TABLE MAKER Gender Identity Female 10/29/2023 8:27 AM CDT Sexual Orientation Straight 10/29/2023 8: 27 AM CDT Obstetrics History Para Term AB IAB SAB Ectopic Multiple Livin g Live Births 3 2 2 1 1 0 2 2 Date Outcome GA Total Labor Labor//3rd Weight Sex Type Anes PTL Mary A1 A5 Name Clin 2017 Term 41w 0d 2.75 kg (6 lb 1 oz) F CS-LT ranv Livin g Complications: distress 2018 SAB 2020 Term 39w 0d 0h 01m 0h 01m 3.23 kg (7 lb 1.9 oz) M C-Sec tion Livin g 8 9 GA Sal,Altaf Krishnan MD Delivery Location:Hospital ( [facility] 1999 L&D TRIAGE) Last Filed Vital Signs Vital Sign Reading Time Taken Comments Blood Pressure 114/70 02/20/2024 12:47 AM TABLE MAKER Pulse 66 02/20/2024 12:47 AM TABLE MAKER Temperature 36.4 C (97.6 F) 02/19/2024 8:25 PM TABLE MAKER Respiratory Rate 18 02/20/2024 12:47 AM TABLE MAKER Oxygen Saturation 100% 02/20/2024 12:47 AM TABLE MAKER Inhaled Oxygen Concentration - - Weight 80.3 kg (177 lb) 02/19/2024 8:25 PM TABLE MAKER Height 167.6 cm (5' 6) 02/19/2024 8:25 PM TABLE MAKER Body Mass Index 28.57 02/19/2024 8:25 PM TABLE MAKER Plan of Treatment Health Maintenance Due Date Last Done Comments HIV for age 15-65 1996 Hepatitis C screening for ag e 18-79 09/04/1999 Hepatitis B series for 19+ ( 1 of 3 - 19+ 3-dose series) 2000 Pneumococcal series for age 6-49 (1 of 2 - PCV) 2000 Depression screening for age 12+ 02/11/2021 02/12/2020, 02/24/2018, 02/24/2018, Additional history exists COVID-19 vaccine series ( season) 2023 04/02/2022, 02/26/2021, 06/27/2020, Additional history exists Influenza Vaccine (Season Ended) 2024 11/22/2017, 03/18/2012, 01/09/2008, Additional history exists BMI (ht and wt on same day) for age 18+ 12/30/2024 12/31/2023, 08/03/2023, 10/16/2021, Additional history exists Pap test for age 21-65 02/03/2026 3 (Verified in Care Everywhere or Patient Record) Tetanus booster 11/23/2027 11/22/2017, 01/06, 04/15/2006 Tdap Completed 11/22/2017, 01/06, 04/15/2006 Insurance [facility] Advance Directives * Full Code (Latest Code [...] AM Post cathy gale section Care Teams Warping Mill Operator Relationship Specialty Start Date End Date Lakhwinder Lau MD [address] [place] [address] PCP - General Family Practice 10/05/23 Tone Mcqueen MBBS [address] [place] [address] Consulting Physician Cardiology - Interventional 03/21/20
--- OUTSIDE RECORDS SUMMARY | 2024-08-29 00:52 | XMS_ITS | Data Portability ---
Author Organization KRISTA Valle [employer], [id number] Address [address] [place] [id number] Care Team Providers Care Information Technology Architect Name Role Phone TEENA LO Client Service Manager NORMA MCNULTY Primary Care Provider Assessment No assessment recorded. Plan of Treatment Reminders Order Date Submit Date Provider Last Modified By Organization Details Last Modified Time Details Appointments None recorded. Lab bacterial vaginosis + vaginitis panel, vaginal 2023 024 apetersen 35 Ey240_jkyznaf rtners_lilyda le, [address] [facility], [address] [place] [address], [address], 4 13:03:16 urinalysis, dipstick, auto 2023 024 apetersen 35 Jw732_hnisqql rtners_lilyda le, [address] [facility], [address], [place], [address], 4 13:33:54 culture, urine 2023 024 [facility], [address] [facility], [address], [place], [address], 4 07:07:53 urinalysis, dipstick, auto 2023 024 apetersen 35 Gn022_aismwds rtners_lilyda le, [address] [facility], [address], [place], [address], 4 13:55:52 bacterial vaginosis + vaginitis panel, vaginal 2023 024 apetersen 35 Fq244_ulbouna ledy_ziona le, [address] [facility], [address], [place], [address], 4 17:01:44 urinalysis, dipstick, auto 2022 023 apetersen 35 Hd657_kwnkbkc ledy_ziona le, [address] [facility], [address], [place], [address], 3 13:45:18 bacterial vaginosis + vaginitis panel, vaginal 2022 023 [place] Fl689_luogdpb ledy_shaliniyda le, [address] [facility], [address], [place], [address], 3 14:41:00 lipid panel, serum 2022 023 [facility], [address] [place] [address], [address], [place], [address], 3 15:49:12 bacterial vaginosis + vaginitis panel, vaginal 2022 023 apetersen 35 Zv988_udpvuwk ledy_shaliniyda le, [address] [facility], [address], [place], [address], 3 13:01:20 hemoglobin A1c, QN, blood 2022 023 [facility], [address] [facility], [address], [place], [address], 3 15:49:11 CBC 2022 023 [facility], [address] [facility], [address], [place], [address], 3 15:49:09 Pap test, slide(s), cervical 2022 023 [facility], [address] [facility] [address], [address], [place], [address], 3 16:08:46 Referral None recorded. Procedures None recorded. Surgeries None recorded. Imaging None recorded. Medication Orders metronidazo le 500 mg tablet [address] [facility], [address] [place] [address], [place], [address], 4 13:09:09 terconazole 0.8 % vaginal cream 2023 024 [facility], [address] [place] [address], [place], [address], 4 13:09:08 Junel FE 03/27 (28) 1 mg-20 mcg (21)/75 mg (7) tablet [address] [facility], [address] [place] [address], [place], [address], 4 13:09:09 Diflucan 150 mg tablet 2023 024 [facility], [address] [place] [address], [place], [address], 4 10:05:15 metronidazo le 0.75 % (37.5 mg/5 gram) vaginal gel [address] [facility], [address] [place] [address], [place], [address], 4 17:14:55 clindamycin HCl 300 mg capsule 2022 023 [facility], [address] [facility], [place], [address], 4 13:07:00 Metrogel Vaginal 0.75 % (37.5 mg/5 gram) 2022 023 [facility], [address] [place], [address], 4 13:07:10 spironolact one 50 mg tablet 2022 023 [facility], [address] [facility], [place], [address], 3 10:56:44 Metrogel Vaginal 0.75 % (37.5 mg/5 gram) 2022 023 [facility], [address] [facility], [place], [address], 4 13:10:07 Patient TargetsNo targets recorded. Patient Instructions Encounter Date Encounter Id Patient Instructions Last Modified By Organization Details Last Modified Time 02/01/2023 [id number] venous blood draw* [id number] Not available 02/01/2023 10:56:02 Reason for Referral None Reported. Results Created Date Observation Date Name Description Value Unit Range Abnormal Flag Note LastModifiedBy Organization Detail LastModifiedTime 02/02/2002/01/2023 CBC WITH PLATE LETS WBC count 8.4 10e3/ uL 4.0-11 .0 Not Available [address], [place], [address], 02/01/2023 15:49:09 02/02/20 23 02/01/2023 CBC WITH PLATE LETS RBC count 5.34 10e6/ uL 3.80-5 .20 high Not Available [address], [place], [address], 02/01/2023 15:49:09 02/02/20 23 02/01/2023 CBC WITH PLATE LETS hemoglobin 15.0 g/dL 11.7-1 5.7 Not Available [address], [place], [address], 02/01/2023 15:49:09 02/02/20 23 02/01/2023 CBC WITH PLATE LETS hematocrit 46.6 % 35.0-4 7.0 Not Available [address], [place], [address], 02/01/2023 15:49:09 02/02/20 23 02/01/2023 CBC WITH PLATE LETS MCV 87 fL 78-100 Not Available [address], [place], [address], 02/01/2023 15:49:09 02/02/20 23 02/01/2023 CBC WITH PLATE LETS MCH 28.1 pg 26.5-3 3.0 Not Available [address], [place], [address], 02/01/2023 15:49:09 02/02/20 23 02/01/2023 CBC WITH PLATE LETS MCHC 32.2 g/dL 31.5-3 6.5 Not Available [address], [place], [address], 02/01/2023 15:49:09 02/02/2002/01/2023 CBC WITH PLATE LETS RDW 13.8 % 10.0-1 5.0 Not Available [address], [place], [address], 02/01/2023 15:49:09 02/02/20 23 02/01/2023 CBC WITH PLATE LETS platelet count 330 10e3/ uL 150-45 0 Not Available [address], [place], [address], 02/01/2023 15:49:09 02/02/2002/01/2023 HEMOG LOBIN A1C hemoglobin A1C 5.2 % <5.7 Hetal l <5.7% Predi abete s 5.7-6 .4% Diabe bela 6.5% or highe r Note: Adopt ed from ADA conse nsus guide lines . Not Available [address], [place], [address], 02/01/2023 15:49:10 02/02/20 23 02/01/2023 LIPID PANEL cholesterol 198 mg/dL <200 Not Available [address], [place], [address], 02/01/2023 15:49:12 02/02/20 23 02/01/2023 LIPID PANEL triglyceride s 102 mg/dL <150 Not Available [address], [place], [address], 02/01/2023 15:49:12 02/02/20 23 02/01/2023 LIPID PANEL direct measure HDL 53 mg/dL >=50 Not Available [facility] [address] [facility] [address], [place], [address], 02/01/2023 15:49:12 02/02/20 23 02/01/2023 LIPID PANEL LDL cholesterol calculated 125 mg/dL <=100 high Not Available [facility] [address] [facility] [address], [place], [address], 02/01/2023 15:49:12 02/02/20 23 02/01/2023 LIPID PANEL [...] equal to 220 mg/dL Not Available [address], [place], [address], 02/01/2023 15:49:12 02/02/20 23 02/01/2023 GYNEC OLOGI C CYTOL OGY (PAP SMEAR ) gynecologic cytology SEE RESULT S BELOW SPECI MEN SOURC E [place] ing Cervi x BKR LAB AP CAP 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 BKR LAB AP CAP PARTS CUTTER ADEQU ACY: Satis facto ry for evalu [...] this testi ng was compl eted at [facility] Not Available [address], [place], [address], 02/04/2023 16:08:46 02/02/20 23 02/01/2023 HPV HIGH RISK TYPES DNA CERVI REBEKAH other HR HPV Negati ve negati ve Not Available [address], [place], [address], 02/04/2023 16:08:59 02/02/20 23 02/01/2023 HPV HIGH RISK TYPES DNA CERVI REBEKAH HPV16 DNA Negati ve negati ve Not Available [address], [place], [address], 02/04/2023 16:08:59 02/02/20 23 02/01/2023 HPV HIGH RISK TYPES DNA CERVI REBEKAH HPV18 DNA Negati ve negati ve Not Available [address], [place], [address], 02/04/2023 16:08:59 02/02/20 23 02/01/2023 HPV HIGH RISK TYPES DNA CERVI REBEKAH final diagnosis See note below This patie nt's sampl e is negat kassie for HPV DNA. This test was devel oped and its perfo rmanc e andrea cteri stics deter mined by the [facility], [place] [...] is recom anuj d. Not Available [address], [place], [address], 02/04/2023 16:08:59 02/02/20 23 02/01/2023 bacte rial vagin osis + vagin itis panel , vagin al gardnerella positi ve negati ve abnormal Not Available [id number], [address], 02/01/2023 10:04:04 02/02/20 23 02/01/2023 bacte rial vagin osis + vagin itis panel , vagin al trichomonas negati ve negati ve normal Not Available [address], [address], 02/01/2023 10:04:04 02/02/20 23 02/01/2023 bacte rial vagin osis + vagin itis panel , vagin al avery negati ve negati ve normal Not Available [address], [address], 02/01/2023 10:04:04 02/13/20 23 02/12/2023 bacte rial vagin osis + vagin itis panel , vagin al gardnerella positi ve negati ve abnormal Not Available Ij210_ngobreu rtnersrosanna [address], [place], [address], 02/12/2023 11:30:51 02/13/20 23 02/12/2023 bacte rial vagin osis + vagin itis panel , vagin al trichomonas negati ve negati ve normal Not Available Jl072_uidpyzj rtnersrosanna [address], [place], [address], 02/12/2023 11:30:51 02/13/20 23 02/12/2023 bacte rial vagin osis + vagin itis panel , vagin al avery negati ve negati ve normal Not Available Bx257_xwcivdn rtnersrosanna [address], [place], [address], 02/12/2023 11:30:51 02/13/20 23 02/12/2023 urina lysis , dipst ick, auto Unknown Analyte Clean Catch Not Available Ha551_sfsux pa rtnersrichard[address], [place], [address], 02/12/2023 11:30:42 02/13/20 23 02/12/2023 urina lysis , dipst ick, auto Unknown Analyte negati ve Not Available Za438_xpzsh pa rtnersrosanna [address], [place], [address], 02/12/2023 11:30:42 02/13/20 23 02/12/2023 urina lysis , dipst ick, auto Unknown Analyte negati ve Not Available Nu226_iqpfd pa rtners_lilyda [address], [place], [address], 02/12/2023 11:30:42 02/13/20 23 02/12/2023 urina lysis , dipst ick, auto Unknown Analyte negati ve Not Available Ii074_stluh pa rtnersrosanna [address], [place], [address], 02/12/2023 11:30:42 02/13/20 23 02/12/2023 urina lysis , dipst ick, auto Unknown Analyte 1.020 Not Available Cc003_ metropa rtmanuel [address], [place], [address], 02/12/2023 11:30:42 02/13/20 23 02/12/2023 urina lysis , dipst ick, auto Unknown Analyte negati ve Not Available Ei871_uxiat pa rtnersrosanna [address], [place], [address], 02/12/2023 11:30:42 02/13/20 23 02/12/2023 urina lysis , dipst ick, auto Unknown Analyte 7.5 Not Available Cc003_ metropa rtmanuel [address], [place], [address], 02/12/2023 11:30:42 02/13/20 23 02/12/2023 urina lysis , dipst ick, auto Unknown Analyte negati ve Not Available Da062_kkczs pa rtnersrosanna [address], [place], [address], 02/12/2023 11:30:42 02/13/20 23 02/12/2023 urina lysis , dipst ick, auto Unknown Analyte negati ve Not Available Rf196_yotfs pa rtnersrosanna [address], [place], [address], 02/12/2023 11:30:42 02/13/20 23 02/12/2023 urina lysis , dipst ick, auto Unknown Analyte negati ve Not Available Bg957_xvcpk pa rtnersrosanna [address], [place], [address], 02/12/2023 11:30:42 02/13/20 23 02/12/2023 urina lysis , dipst ick, auto Unknown Analyte dark yellow Not Available Tf206_mmclk pa rtnersrosanna [address], [place], [address], 02/12/2023 11:30:42 02/13/20 23 02/12/2023 urina lysis , dipst ick, auto Unknown Analyte slight ly cloudy Not Available Vj924_zxgcv pa rtnersrichard[address], [place], [address], 02/12/2023 11:30:42 04/02/19 24 04/02/2023 bacte rial vagin osis + vagin itis panel , vagin al gardnerella positi ve negati ve abnormal Not Available Jj252_tklbuvq [facility], [place], [address], 04/01/2023 10:09:21 04/02/19 24 04/02/2023 bacte rial vagin osis + vagin itis panel , vagin al trichomonas negati ve negati ve normal Not Available Gs571_arqxbch [facility], [place], [address], 04/01/2023 10:09:21 04/02/19 24 04/02/2023 bacte rial vagin osis + vagin itis panel , vagin al avery negati ve negati ve normal Not Available Im486_lekdfvd rtmanuel [address], [place], [address], 04/01/2023 10:09:21 04/02/19 24 04/02/2023 urina lysis , dipst ick, auto Unknown Analyte Clean Catch Not Available Xq443_nvhcx pa rtnersMukulblue [facility]mon[facility], [place], [address], 04/01/2023 10:09:28 04/02/19 24 04/02/2023 urina lysis , dipst ick, auto Unknown Analyte negati ve Not Available Wh648_wypxu pa rtcasablue mountain [facility], [place], [address], 04/01/2023 10:09:28 04/02/19 24 04/02/2023 urina lysis , dipst ick, auto Unknown Analyte negati ve Not Available Zd308_kaghl pa rtnersrichard[address], [place], [address], 04/01/2023 10:09:28 04/02/19 24 04/02/2023 urina lysis , dipst ick, auto Unknown Analyte negati ve Not Available Af544_cafpl pa rtnersMukulblue mountain [facility], [facility]mon[facility], [place], [address], 04/01/2023 10:09:28 04/02/19 24 04/02/2023 urina lysis , dipst ick, auto Unknown Analyte 1.010 Not Available CcJimmy valderramaa rtarnoldoblue mountain hospital[facility]roe[address], [place], [address], 04/01/2023 10:09:28 04/02/19 24 04/02/2023 urina lysis , dipst ick, auto Unknown Analyte trace Not Available CcPresley_ ropa rtmanuel [address], [place], [address], 04/01/2023 10:09:28 04/02/19 24 04/02/2023 urina lysis , dipst ick, auto Unknown Analyte 6.5 Not Available CcPresley_ janniea rtmanuel [address], [place], [address], 04/01/2023 10:09:28 04/02/19 24 04/02/2023 urina lysis , dipst ick, auto Unknown Analyte negati ve Not Available Ek037_wnqtr pa rtmanuel [address], [place], [address], 04/01/2023 10:09:28 04/02/19 24 04/02/2023 urina lysis , dipst ick, auto Unknown Analyte 0.2 Not Available CcPresley_ ropa rtmanuel [address], [place], [address], 04/01/2023 10:09:28 04/02/19 24 04/02/2023 urina lysis , dipst ick, auto Unknown Analyte negati ve Not Available Dd631_fnswy pa rtnersrosanna [address], [place], [address], 04/01/2023 10:09:28 04/02/19 24 04/02/2023 urina lysis , dipst ick, auto Unknown Analyte negati ve Not Available Pc174_fiifg pa rtnersrosanna [address], [place], [address], 04/01/2023 10:09:28 04/02/19 24 04/02/2023 urina lysis , dipst ick, auto Unknown Analyte yellow Not Available Cc003_ metropa rtmanuel [address], [place], [address], 04/01/2023 10:09:28 04/02/19 24 04/02/2023 urina lysis , dipst ick, auto Unknown Analyte slight ly cloudy Not Available Hb905_sxjid pa rtnersrosanna [address], [place], [address], 04/01/2023 10:09:28 04/08/19 24 04/08/2023 URINE CULTU RE urine culture SEE RESULT S BELOW SPECI MEN SOURC E Urine Urine , Midst ream CULTU RE RESUL TS <10,0 00 CFU/m L Uroge nital alexis REPOR T STATU S FINAL 04/10 Not Available [address], [place], [address], 04/10/2023 07:07:53 04/08/19 24 04/08/2023 urina lysis , dipst ick, auto Unknown Analyte Clean Catch Not Available Az939_dhsck pa rtnersrosanna [address], [place], [address], 04/08/2023 12:58:00 04/08/19 24 04/08/2023 urina lysis , dipst ick, auto Unknown Analyte negati ve Not Available Cj293_olytt pa rtnersrosanna [address] [place], [place], [address], 04/08/2023 12:58:00 04/08/19 24 04/08/2023 urina lysis , dipst ick, auto Unknown Analyte negati ve Not Available Wh097_aghit pa rtners_lilyd[address], [place], [address], 04/08/2023 12:58:00 04/08/19 24 04/08/2023 urina lysis , dipst ick, auto Unknown Analyte negati ve Not Available Wi600_ayjdf pa rtners[address], [place], [address], 04/08/2023 12:58:00 04/08/19 24 04/08/2023 urina lysis , dipst ick, auto Unknown Analyte 1.010 Not Available CcPresley_ janniea [facility], [place], [address], 04/08/2023 12:58:00 04/08/19 24 04/08/2023 urina lysis , dipst ick, auto Unknown Analyte negati ve Not Available Na103_rushx pa rtnersMukul[address], [place], [address], 04/08/2023 12:58:00 04/08/19 24 04/08/2023 urina lysis , dipst ick, auto Unknown Analyte 7.0 Not Available Presley_ divyaa ledy[address], [place], [address], 04/08/2023 12:58:00 04/08/19 24 04/08/2023 urina lysis , dipst ick, auto Unknown Analyte negati ve Not Available Lg071_tejcb pa rtarnoldoblue [facility], [place], [address], 04/08/2023 12:58:00 04/08/19 24 04/08/2023 urina lysis , dipst ick, auto Unknown Analyte 0.2 Not Available CcPresley_ rodolfo gibbons [address], [place], [address], 04/08/2023 12:58:00 04/08/19 24 04/08/2023 urina lysis , dipst ick, auto Unknown Analyte negati ve Not Available Tabitha [facility]h [address], [place], [address], 04/08/2023 12:58:00 04/08/19 24 04/08/2023 urina lysis , dipst ick, auto Unknown Analyte modera te Not Available Tabitha gibbons [address], [place], [address], 04/08/2023 12:58:00 04/08/19 24 04/08/2023 urina lysis , dipst ick, auto Unknown Analyte yellow Not Available Pat [facility], [place], [address], 04/08/2023 12:58:00 04/08/19 24 04/08/2023 urina lysis , dipst ick, auto Unknown Analyte slight ly cloudy Not Available Tabitha gibbons [address], [place], [address], 04/08/2023 12:58:00 05/12/19 24 05/12/2023 bacte rial vagin osis + vagin itis panel , vagin al gardnerella positi ve negati ve abnormal Not Available Puja gibbons [address], [place], [address], 05/12/2023 10:11:47 05/12/19 24 05/12/2023 bacte rial vagin osis + vagin itis panel , vagin al trichomonas negati ve negati ve normal Not Available Ph530_rauhldn rtners_ziona le [address] [facility] [address], [place], [address], 05/12/2023 10:11:47 05/12/19 24 05/12/2023 bacte rial vagin osis + vagin itis panel , vagin al avery negati ve negati ve normal Not Available Ts485_chdyibb rtners_[facility] le [address] [facility] [address], [place], [address], 05/12/2023 10:11:47 07/06/19 24 07/06/2023 MAMMO , scree see, bilat eral No observ ation record ed. [facility] [place] [id number] [address] [facility] [address], [place], [address], 07/08/2023 19:23:00 Result Notes None recorded. Problems Name Problem SNOMED Code Status Onset Date Resolution Date Notes Provider Name and Address Organization Details Recorded Time Past history of section 073168373 Active 2020 Blake cunningham [place] [employer] 1 17:15:34 Multigravida of advanced maternal age 198159878 Active 2020 Blake cunningham [place] [employer] 1 17:15:41 Vitamin D deficiency 71217091 Active Not Available [facility] 0 05:10:31 Problem Notes None recorded. Procedures Surgical History Date Name Laterality Status Provider Name and Address Organization Details Recorded Time 4 Date of Last Mammogram completed Harriet Nieto [place] [employer] 07/07/2023 13:33:35 2 Date of Last Pap Smear completed Raegan Song (TERMED) [place] [employer] 01/26/2023 12:30:03 8 section completed Not Available [facility] 10/12/2019 05:09:17 Imaging Results None [...] Updated DateTime 4 167.64 cm 33.7 kg/m2 43469.3 7 g 64 /min 125 mm[Hg] 80 mm[Hg] Raegan Song ([place]MED[place] [employer] 4 13:12:10 Date Recorded Body height Body mass index (BMI) Body weight Heart rate Systolic blood pressure Diastolic blood pressure Provider Name and Address Organization Details Last Updated DateTime 4 167.64 cm 33.6 kg/m2 13751.2 1 g 72 /min 124 mm[Hg] 85 mm[Hg] Raegan Song (TERMED) [facility] [employer] 4 13:02:56 Date Recorded Body height Body mass index (BMI) Body weight Provider Name and Address Organization Details Last Updated DateTime 05/12/2023 167.64 cm 33.6 kg/m2 35461.21 g Raegan Song (TERMED) [facility] [employer] 05/12/2023 10:03:36 Date Recorded Body height Body mass index (BMI) Body weight Heart rate Systolic blood pressure Diastolic blood pressure Provider Name and Address Organization Details Last Updated DateTime 3 167.64 cm 34.9 kg/m2 00031.6 7 g 64 /min 118 mm[Hg] 82 mm[Hg] Raegan Song (TERMED) [facility] [employer] 3 09:58:03 Date Recorded Body height Body mass index (BMI) Body weight Heart rate Systolic blood pressure Diastolic blood pressure Provider Name and Address Organization Details Last Updated DateTime 3 167.64 cm 35.1 kg/m2 33008.7 g 63 /min 114 mm[Hg] 75 mm[Hg] Raegan Song (TERMED) [facility] [employer] 3 13:26:28 Social History Question Answer Notes LastModified by Organizat ion Details LastModified Time Tobacco Smoking Status Never Smoker Tobacco *Status: Never Not Available [facility] 10/16/2019 11:59:10 Do You Have An Advance Directive? No Does Not Have A Health Directive Information not available 10/16/2019 Is Blood Transfusion Acceptable In An Emergency? Yes [email or web address] Information not available 01/26/2022 What Is Your Level Of Caffeine Consumption? None Information not available 02/01/2023 What Type Of Diet Are You Following? GLUTENFREE No Sugar And Dairy Information not available 02/01/2023 What Is The Highest Grade Or Level Of School You Have Completed Or The Highest Degree You Have Received? [id number] [email or web address] Information not available 01/26/2022 How Many Times Per Week Do You Exercise? Less Than 1 Time Per Week Information not available 02/01/2023 History Of Domestic Violence No Denies Any History Of Domestic Violence Information not available 10/16/2019 Spouse/Partners Name Sekou Rivas Information not available 02/01/2023 Ethnic Background White Or [email or web address] Information not available 01/26/2022 Are You Passively Exposed To Smoke? No Information not available 02/01/2023 Performs Monthly Self-breast Exam? No Does Not Perform Monthly Breast Exams Information not available 01/21/2021 What Is Your Relationship Status? [email or web address] Information not available 01/26/2022 Are You Sexually Active? Yes Currently Sexually Active Information not available 01/21/2021 Has Tobacco Cessation Counseling Been Provided? Yes Information not available 02/01/2023 On What Date Was Tobacco Cessation Counseling Provided? 02/01/2023 Information not available 02/01/2023 Are You Currently In School? No [email or web address] Information not available 01/26/2022 Sex: Unknown Functional [...] available 02/01/2023 Are you currently employed? Yes [email or web address] Information not available 01/26/2022 What is your [...] Details Recorded Time Tdap 07/23/2020 completed Ayden Sanders null, [place] - [employer] 07/23/2020 15:22:22 Tdap 11/22/2017 completed Not Available [facility] 10/12/2019 05:09:39 Tdap 01/15/2014 completed Not Available [facility] 10/12/2019 05:09:39 Influenza, split virus, quadrivalent, PF 11/22/2017 completed Heron Bustos (TERMED) [place], [place] - [employer] 01/21/2021 11:39:02 Past Encounters Encounter ID Performer Location Encounter Start Date Encounter Closed Date Diagnosis/Indication Diagnosis SNOMED-CT Code Diagnosis ICD10 Code Diagnosis Note [id number] TEENA LO MD [id number] [address] [address] 01/09/2020 14:26:08 01/09/2020 17:28:44 Routine care 957671055 Z34.91 [id number] MAURISIO FRAIRE PA-C [id number] [address] [address] 01/09/2020 14:47:07 01/09/2020 16:01:59 Gestation period, 8 weeks 26709508 Z3A.08 Multigravi da of advanced maternal age 913459274 O09.529 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 899859519 Z87.42 Prometrium QHS until 10-12wks Past pregn clara history of section 754959463 Z98.890 intoleranc e to labor RhD negative 419857229 Z 01.83 Needs Rhogam at 28wks Morbid obesity 318117973 E66.01 BMI=40 [id number] TEENA LO MD [id number] [address] [address]173 2 02/06/2020 12:12:48 02/07/2020 09:27:44 89746939 Z33.1 Sinusitis 01467800 J32.9 has had bf adn feels like starting so z rnoen and if worse call screening 2437 39617 Z36.9 had standard last pg so inatal done [id number] MD JESSIE TAYLOR_MET [address] [address]-563 2 03/05/2020 10:05:01 03/05/2020 10:44:40 [id number] MD JESSIE TAYLOR_MET [address] [address]385 2 03/19/2020 10:21:47 03/19/2020 11:38:31 Irregular heart beat 940289453 R00.8 ER AND HAS EVENT MONITER AND DONE ON AND CARDIAC ECHO ORDERED AND REC FITBIT FOR PULSE [id number] MD SEAN TAYLOR001_MET [address] [address]295 2 03/20/2020 15:31:39 03/20/2020 16:28:51 Mass of left breast 8765776398 4652060 N63.20 US UPPER AND OUTER AREA LEFT BREAST Irregular heart beat 361 762199 R00.8 ER AND HAS EVENT MONITER AND DONE ON AND CARDIAC ECHO ORDERED AND REC FITBIT FOR PULSE--ER AGAIN SO CARDS APPT FRI [id number] MD SEAN TAYLOR001_MET [address] [address]-791 2 04/02/2020 10:06:42 04/04/2020 10:00:40 [id number] MD BERTHA TAYLORMET [address] [address]196 2 04/02/2020 09:04:36 04/02/2020 09:52:32 screening 552527052 Z36.9 had standard last pg so inatal done [id number] MD SEAN TAYLOR001_MET RO_[facility] RY [address] [facility] TE [address] [place] [address]516 1 05/02/2020 09:04:54 05/02/2020 14:07:22 [id number] TEENA LO MD [id number] RO_WOODBU RY [facility] TE [address] [place] [address]50-183 1 05/16/2020 10:39:26 05/21/2020 14:15:54 [id number] TEENA LO MD [id number]_TOE RO_WOODBU RY [address] [place], [place] [address]Intiza [facility] TE [address] [place] [address] 35983-702 1 05/16/2020 10:39:28 05/16/2020 11:19:29 Low lying placenta 524779345 O44.42 [id number] SHERON YANG [id number]_OWD RO_WOODBU RY [address] [place] [address],[address] [address] 1 05/30/2020 10:02:15 05/30/2020 12:07:40 screening 380342055 Z36.89 RhD negative 932463442 Z 01.83 Venereal d isease screening 292398568 Z11.3 High risk care 856025918 O09.93 Gestation period, 28 weeks 79353844 Z3A.28 Multigravi da of advanced maternal age 600715067 O09.529 Low lying placenta 33441 2007 O44.43 [id number] MAURISIO FRAIRE PA-C WO314_FQC RO_MAPLEW OOD [address] [place] [address]-595 3 05/27/2020 14:20:27 05/27/2020 14:37:11 [id number] TEENA LO MD [id number] RO_WOODBU RY [address] [place], [place] [address]Intiza [facility],[address] [address]399 1 05/30/2020 10:02:15 05/30/2020 10:34:14 Low lying placenta 446656843 O44.42 [id number] Teena Lo MD AQ675_YER RAFFAELENER S_WOODBUR Y [address] [place], [place] [address]CHROM[place]om [facility] TE [address] [place] [address]2571-155 1 06/13/2020 09:01:05 06/13/2020 13:45:03 [id number] Teena Lo MD [id number]_VSS DIVYAARTNER BRYNN Y [address] [place], [place] [address]ROHAN REEDER[address] [address] 1 06/26/2020 13:19:07 06/26/2020 17:42:02 Morbid obesity 706838539 E66.01 [id number] MD SEAN Saeed003_MET DIVYAARTNER SJESSICA Y [address] [place], [place] [address]ROHAN [address] [address]-132 1 06/26/2020 13:18:50 06/26/2020 13:57:29 Low lying placenta 767896445 O44.43 Z3A.32 risk of accreta [id number] SHERON YANG [id number]_XQF DIVYAARTNER SJESSICA Y [address] [place] [address]39-202 1 07/09/2020 13:56:43 07/09/2020 14:39:17 High risk 41947583 O09.93 Gestation period, 34 weeks 03129229 Z3A.34 Multigravi da of advanced maternal age 670076874 O09.953 [id number] MD SEAN Saeed003_MET CRISTINA SJESSICA Y [address] [place] [address]211-755 1 07/23/2020 13:07:51 07/24/2020 11:29:55 03030357 Z33.1 Gestation period, 36 weeks 43601408 Z3A.36 Administra tion of diphtheria, pertussis, and tetanus vaccine 427559377 Z23 [id number] MD SEAN Saeed003_MET DIVYAARTREENA SJESSICA Y [address] [place] [address] 11143-929 1 07/23/2020 13:07:32 07/23/2020 13:48:23 Multigravida of advanced maternal age 119140064 O09.529 Z3A.36 BPP w/ EFW. AMA and history of low lying placenta that has resolved per [facility] [id number] MD BETTY Saeed_MET VEANS SMukulWOODLOI Y Michael REEDER,SIMONE DANIELS [address] [place] [address] 75533-581 1 08/08/2020 09:04:02 08/08/2020 16:08:00 52872268 Z33.1 [id number] Robbin Kenny MD [id number]_XFW CRISTINA SARTEMLOI Y [address] [place], [place] [address]ROHAN REEDER,SIMONE JEREMIAH [address] [place] [address]77-621 1 07/30/2020 10:12:03 07/30/2020 10:35:49 Multigravida of advanced maternal age 751685781 O09.523 Z3A.37 FL measuring <10% [id number] SHERON YANG TG200_GRH DIVYAJOHNY SWAIN Y MichaelaT[facility] CENTERHA REEDER,SIMONEKemar DANIELS [address] [place] [address]5845-129 1 07/30/2020 10:11:58 07/30/2020 12:16:40 High risk 55622015 O09.93 Multigravi da of advanced maternal age 146688817 O09.523 Past pregn clara history of section 548681880 Z98.890 Repeat CS with TL scheduled on 08/13/20 at [place] Gestation period, 37 weeks 96507369 Z3A.37 [id number] Teena Lo MD [id number]_IIJ CRISTINA IRENELOI Y [address] [place], [place] [address]HA REEDER,[address] [address]-472 1 08/08/2020 09:03:42 08/08/2020 09:36:46 Multigravida of advanced maternal age 459027101 O09.523 Z3A.38 [id number] Teena Lo MD PL268_THP CRISTINA SARTEMLOI Y [address] [place], [place] [address]ROHAN REEDER,[address] [address] 1 08/22/2020 08:45:32 08/26/2020 10:26:41 Acute sinusitis 79460618 J01.90 IF NOT BETTER WITH CLARITIN D DO ZPAK Postoperative visit 1836 96675 Z09 SOME PAIN AT NIGHT SO GIVEN 6 MORE OXY AND CAN DUT IN HALF AND TYLENOL AND MOTRIN REV Dysuria 77849010 R30.9 ?LOW GRADE INF SO UC DONE [id number] Teena Lo MD UP722_HQE CRISTINA S_WOODBUR Y [address] [facility] [address] [place] [address] 1 09/24/2020 11:48:37 09/24/2020 16:50:13 Postoperative care 184445567 Z48.89 INCISION GOOD AND ACTIVITY REV state, 6 weeks 10626439 Z39.2 HAD TUBAL AND SWAIN IRREG BF? SO WHEN DONE BF IF NO MENSES 6-8 WKS RTC AND ANNUAL NOV Morbid obesity 021375965 E66.01 [id number] Teena Lo MD [id number]_UJJ CRISTINA S_WO[facility]BUR Y [facility] [facility] [address] [place] [address] 1 10/02/2020 15:42:06 10/04/2020 16:43:50 Vaginal lesion 207064818 N94.89 Abscess of Bartholin's gland 35753484 N75.1 small but tender on left so keflex 500 tid [id number] Teena Lo MD [id number]_AOT CRISTINA S_WOODBUR Y [facility] [address] [place] [address] 1 10/15/2020 15:30:11 10/16/2020 14:25:22 Increased frequency of urination 240934084 R35.0 NO BURNING BUT GREQ SO WILL DO UC Cyst of le ft Bartholin's gland duct 4866383622 7042079 N75.0 EGG BREAKER WITH DEEP PALPATION AND NOT AT SURFACE [...] RECORDS AND RX AND EXAM AND OPTIONS [id number] MAURISIO FRAIRE PA-C [id number]_BYM CRISTINA S_SHALINIYDAL E [address] [facility],S [address] [place] [address] 1 01/21/2021 11:28:35 01/21/2021 14:55:47 Anemia screening 903385588 Z13.0 Hyperlipid emia screening 116990034 Z13.220 Diabetes m ellitus screening 782775100 Z13.1 Thyroid di sorder screening 664922291 Z13.29 Gynecologi c examination 92985216 Z01.419 Screening for malignant neoplasm of cervix 088660618 Z12.4 [id number] DALE TY003_MET DIVYAARTNER S_LILYDAL E [address] [place] [address]878-097 1 01/26/2022 09:45:51 01/26/2022 13:59:59 Gynecologic examination 14906570 Z01.419 Screening for malignant neoplasm of cervix 938363282 Z12.4 Anemia screening 7464473 07 Z13.0 Diabetes m ellitus screening 801951772 Z13.1 Hyperlipid emia screening 641912539 Z13.220 Obesity 289569418 E66.9 [id number] DALE TY003_MET DIVYAARTNER S_LILYDAL E [address] [place] [address] 27967-415 1 02/09/2022 09:09:09 02/09/2022 12:13:47 Urgent desire to urinate 42286779 R39.15 [id number] DALE TY003_MET DIVYAARTNER S_LILYDAL E [address] [place] [address]13-763 1 06/29/2022 12:18:15 06/29/2022 14:27:42 Pain of left breast 3141335185 N64.4 [id number] DALE TY003_MET DIVYAARTNER S_LILYDAL E [address] [place] [address]23-602 1 08/21/2022 11:49:34 08/21/2022 16:12:26 Urinary symptoms 654995686 R39.9 [id number] DALE TY003_MET DIVYAARTNER S_LILYDAL E [address] [place] [address], [place] [address] 1 12/31/2022 12:37:07 01/01/2023 09:13:14 Vaginitis 26818919 N76.0 Urinary symptoms 8082708 08 R39.9 [id number] DALE TY003_MET ROPARTNER S_LILYDAL E [address] [place] [address] [place] [address] 1 02/01/2023 09:42:59 02/01/2023 13:58:01 Screening for malignant neoplasm of cervix 560412593 Z12.4 Diabetes m ellitus screening 563201990 Z13.1 Hyperlipid emia screening 611031450 Z13.220 Gynecologi c examination 88829433 Z01.419 Anemia screening 6295759 07 Z13.0 Vaginal irritation 63290 6004 N89.8 Obesity 972674326 E66.9 BMI=34.9 Female hirsutism 8685922 9 L68.0 [id number] DALE TY003_MET DIVYAARTNER S_LILYDAL E [address] [place] [address] [place] [address] 1 02/12/2023 13:16:17 02/12/2023 15:10:47 Vaginitis 70205959 N76.0 [id number] DALE TY003_MET DIVYAARTNER S_LILYDAL E [address] [place] [address] [place] [address] 04/02/2023 12:55:29 04/05/2023 13:42:55 Vaginitis 56235106 N76.0 Urinary symptoms 6094681 08 R39.9 currently on her period and on abx for UTI [id number] DALE TY003_MET ROPARTNER S_LILYDAL E [address] [place] [address] [place] [address] 1 04/08/2023 12:44:47 04/08/2023 15:33:25 Urinary symptoms 083028278 R39.9 [id number] DALE TY003_MET ROPARTNER S_LILYDAL E [address] [place] [address], [address] [place] [address] 1 05/12/2023 09:59:11 05/12/2023 14:00:16 Vaginitis 91432271 N76.0 Initial pr escription of oral contraception 858848791 Z30.011 Health Concerns Section Related Observation LastModified [...] PAY* Brenda cruza Sim Rob 06/25/2020 1 [facility] ([facility]) [id number] Shirley Rivas [phone] Henny Rivas Notes Date Note Type Note [...] a vaginal infection today. MAURISIO FRAIRE PA-C [address] [facility],[address], [place], [address], [facility] [employer] 02/01/2023 13:11:28 02/12/2023 text/html Vaginal/ Vulvar Problem [...] dysuria, frequency, urgency, odor. MAURISIO FRAIRE PA-C [address] [facility] [address], [address], [facility] [employer] 02/12/2023 15:04:54 04/02/2023 text/html Vaginal/ Vulvar Problem [...] ending her period today. MAURISIO FRAIRE PA-C [address] [facility],[address], [place], [address], [facility] [employer] 04/02/2023 17:15:44 04/08/2023 text/html Vaginal/ Vulvar Problem [...] bladder infection has resolved. MAURISIO FRAIRE PA-C [address] [facility],[address], [place], [address], [place] [facility] [employer] 04/08/2023 15:08:47 05/12/2023 text/html Vaginal/ Vulvar Problem [...] Tubal Ligation for control. MAURISIO FRAIRE PA-C [address] [facility],[address], [place], [address], [place] [facility] [employer] 05/12/2023 13:08:44 OBGyn Episode Ob Episode Information Episode Created Date Number of Fetuses Patient Bloodtype Patient rh Status Prepregnancy Weight lbs Domestic Partner Domestic Partner Phone Father Name Dry Can Tender Status 01/09/20 20 1 O Negative 245 Brighto n CLOSED Fetus Data First Name Last Name Admitted to NICU Weight (g) Sex Living Outcome Pediatric Complications Fetus ID Race Codes Race Delivery Type 3231.84 3 M true Full Term 52365 René Calculation Initial René Date Initial Exam [...] Weight in lbs Pre/Post Dialysis Refused Weight 245.704638213749 BP Diastolic BP Location Tested BP Systolic [...] Weight in lbs Pre/Post Dialysis Refused Weight 243.831778597741 BP Diastolic BP Location Tested BP Systolic [...] Weight in lbs Pre/Post Dialysis Refused Weight 245.245346606464 BP Diastolic BP Location Tested BP Systolic [...] Weight in lbs Pre/Post Dialysis Refused Weight 248.223082469086 BP Diastolic BP Location Tested BP Systolic [...] Weight in lbs Pre/Post Dialysis Refused Weight 248.997053128764 BP Diastolic BP Location Tested BP Systolic [...] Weight in lbs Pre/Post Dialysis Refused Weight 249.647753778176 BP Diastolic BP Location Tested BP Systolic [...] Weight in lbs Pre/Post Dialysis Refused Weight 252.479977095316 BP Diastolic BP Location Tested BP Systolic BP Type 120 Fetus Heart Rate Present A Present Fetus Movement A Yes Comments REV MPP CONSULT AND US TODAY ?ACCRETA SUGGESTION ON US TODAY AND WILL DO ANOTHER US WITH MPP--IF CONCERN OVER ACCRETA THAN WANTS TO DEL AT [place] TO AVOID RIOTS IN CIT[place] AND CAN [...] upper quadrant pain and was seen at [facility] ED and everything was normal. Her BP was 130's/80's so they advised her to follow up in clinic for BP check. She has an appt with [facility] on 06/06/20 for repeat ultrasound. RTC in [...] Weight in lbs Pre/Post Dialysis Refused Weight 253.699783762335 BP Diastolic BP Location Tested BP Systolic BP Type 70 136 64 118 Fetus Heart Rate Present A 144 Fetus Movement A Yes Comments Feeling well. U/S today show s placenta is 1.0 cm from os. EIF continues to be present. She has a follow up with [facility] on 06/06. Will continue restrictions. Baby is [...] Weight in lbs Pre/Post Dialysis Refused Weight 257.311064681411 BP Diastolic BP Location Tested BP Systolic BP Type 60 102 Fetus Heart Rate Present A Present Fetus Movement A Yes Comments REV DEL ADN PER [facility] IF ACCRE TTA-DEL 34 WKS [place] OR [place]--IF LOW LYING 36 WKS--US GROWTH/BPP 2 WKS [...] Weight in lbs Pre/Post Dialysis Refused Weight 261.98412022729 BP Diastolic BP Location Tested BP Systolic [...] Weight in lbs Pre/Post Dialysis Refused Weight 263.761543895761 BP Diastolic BP Location Tested BP Systolic [...] Weight in lbs Pre/Post Dialysis Refused Weight 265.561829618697 BP Diastolic BP Location Tested BP Systolic [...] Weight in lbs Pre/Post Dialysis Refused Weight 261.07233888292 BP Diastolic BP Location Tested BP Systolic [...] Weight in lbs Pre/Post Dialysis Refused Weight 269.306718324362 BP Diastolic BP Location Tested BP Systolic [...] Weight in lbs Pre/Post Dialysis Refused Weight 264.677282046181 BP Diastolic BP Location Tested BP Systolic [...] 05/31/2020 Family medical leave or disability forms [facility] Delivery Information Delivery Date Delivery Type Labor Anesthesia Weeks Gestation Incision Type Labor Labor Length Hrs Delivered By Post Complications Tubal Sterilization Discharge Date Comments Regional-Sp inal 39 Teena Lo MD 08/13 Discharge Information Feeding Method Contraceptive Method Maternal HG B and HCT Levels
== END 2024-08-28 09:02 | disposition home or self-care (01) ==
LOC: MAMMO 09:02
PROVIDERS: PCP Family Medicine; Visit Provider Registered Nurse
DX: Z12.31 Encounter for screening mammogram for malignant neoplasm of breast (principal); R92.333 Mammographic heterogeneous density, bilateral breasts
CPT/HCPCS: 77063; 77067

== ENCOUNTER 2025-01-12 14:16 | Outpatient (CLI) | payer OTHER, SELFPAY | END 2025-01-12 14:17 | disposition home or self-care (01) | LOC: LKVREF 14:19 | PROVIDERS: PCP Family Medicine; Visit Provider Physician Assistant | DX: M54.41 Lumbago with sciatica, right side (principal) | CPT/HCPCS: 80076 ==